=== PATIENT | male | born 1985 | race Caucasian/White ===

== ENCOUNTER 2018-03-19 14:59 | Outpatient (RCR) | payer MEDICAID, SELFPAY ==
[2018-03-19 15:31] VITALS: BP 109/72; PULSE 79; RESP 16; TEMP 36.4; BMI 23.5
== END 2018-04-12 23:59 ==
LOC: WC 14:59
PROVIDERS: Visit Provider Nurse Practitioner Family
DX: Z09 Encounter for follow-up examination after completed treatment for conditions other than malignant neoplasm (principal)

== ENCOUNTER 2018-06-11 09:00 | Outpatient (RCR) | payer MEDICAID, SELFPAY ==
[2018-05-21 09:22] VITALS: BP 117/61; PULSE 81; RESP 16; TEMP 37; BMI 24.6
--- NOTE | 2018-05-21 13:22 | HP.PCM_ITS ---
(1) Ulcer of right foot with fat layer exposed Status: Acute Current Visit: Yes Code(s): L97.512 - Non-pressure chronic ulcer of other part of right foot with fat layer exposed (2) Diabetes mellitus type 1 Status: Acute Current Visit: Yes Code(s): E10.9 - Type 1 diabetes mellitus without complications (3) Pain in right foot Status: Acute Current Visit: Yes Code(s): M79.671 - Pain in right foot (4) Delayed wound healing Status: Acute Current Visit: Yes Code(s): T14.8XXD - Other injury of unspecified body region, subsequent encounter History of Present Illness Date of Service: 05/21/18 Chief Complaint: right plantar foot ulcer History of Wound: This 33-year-old diabetic male presents to the wound healing center for ulcer sub-right fifth metatarsal head. The patient states this started months ago as a blister after walking for an extended period of time in shoes that were not appropriate. He says that after the blister popped, he had been managing the area on his own and he would continue to heal the site and then it would break back down again a few weeks later. He says he had it healed for a while, and then about 1 month ago the area broke back down and has not completely healed since. He says he wanted to have the area evaluated since he is diabetic. He was seen at an urgent care and states that they recently put him on an antibiotic but he is unsure which one this is. He has not kept the area offloaded. He has been dressing the area on his own with Neosporin and a bandage. He denies any purulence, surrounding or extending redness, or increase in warmth. He does relate the area is painful at times. Past Medical History Past Medical History: Chronic Problems (Last Reviewed 05/14/18 @ 10:46 by Verna Grajeda) Diabetes mellitus type 2, uncontrolled, with complications (Chronic) Allergies/Adverse Reactions: Allergies cefprozil [From Cefzil] Allergy (Unknown, Verified 05/21/18 09:37) Unknown industrial glue Allergy (Unknown, Uncoded 05/14/18 10:46) Unknown Home Medications: Ambulatory Orders Medication Instructions Recorded blood sugar diagnostic strips See Dose Instructions .ROUTE 02/11/18 .MEDSUPPLY #150 ea insulin aspart U- 100 100 unit/mL See Rx Instructions SC QPM #30 ml 02/11/18 subcutaneous pen insulin glargine (U-100) 100 30 unit SC QDAY #15 ml 02/11/18 unit/mL (3 mL) subcutaneous pen pen needle, diabetic 31 gauge x See Dose Instructions .ROUTE 02/11/1809/26 .MEDSUPPLY #150 ea flash glucose scanning reader See Dose Instructions .ROUTE 02/22/18 .MEDSUPPLY #1 ea flash glucose sensor kit See Dose Instructions .ROUTE 02/22/18 .MEDSUPPLY #3 ea Smoking Status: Current every day smoker Review of Systems Constitutional: Denies: Chills, Fever, Weight Change Respiratory: Denies: Cough, Shortness of Breath Gastrointestinal: Denies: Diarrhea, Nausea, Vomiting Musculoskeletal: Reports: Foot Pain Skin: Reports: - - Ulcer - Physical Exam Vital Signs Temp Pulse Resp BP 98.6 F 81 16 117/61 05/21/18 09:22 05/21/18 09:22 05/21/18 09:22 05/21/18 09:22 General: Alert, Oriented x3, Cooperative, No apparent distress Extremities: No cyanosis, Capillary Refill Less than 3 Seconds, No Calf Tenderness - Negative Sean and Sanders sign, Edema - Very minor lower extremity edema, Peripheral Pulses Normal - DP and PT pulses palpable bilateral Skin: Ulcer/ Wound - Ulcer sub-right fifth metatarsal head with fat layer exposed. Measurements noted. Ulcer base is noted to be a mixture of adherent slough, fibrin, biofilm, slight granular tissue, as well as some surrounding hyperkeratotic tissue. At this time, there is no probing to bone, no tracking, no undermining, no purulence, no extending or surrounding cellulitis, no incre ase in warmth appreciated to the site at this time. Wound Measurements and Assessment WC - Nurse 1 - General Ulcer Measurement Start: 05/21/18 09:21 Freq: Status: Active Protocol: Activity Type Activity Date Activity User E-Sign Co-Sign Detail Recorded Client Recorded Date Recorded By Document 05/21/18 09:22 [facility] [id number] 05/21/18 09:35 [facility] 05/21/18 09:22 Wound Center Nurse 1 [Ulcer Assessment] #1- RT PLANTAR FOOT -Combined with other wound No -Current Size (cm) - Length 0.2 -Current Size (cm) - Width 0.4 -Current Size (cm) - Depth 0.4 -Total Square Cm 0.08 -Date of Last Picture (Recall this 05/21/18 field) -Photo Taken Yes -Epithelialization None Present -Tunneling No -Undermining/Tunneling No -Circular Undermining No -Exudate Amt None Present (0 %) -Wound Margin Distinct, Outline Attached -Granulation Amt Small (1-33%) -Granulation Quality Red -Slough/Fibrin Yes -Necrosis Amt Small (1-33%) -Texture (Yu-wound Skin Appearance) Callus Scarring -Moisture (Yu-wound Skin Appearance Dry/Scaly ) -Color (Yu-wound Skin Appearance) Assessed -Temperature (Yu-wound Skin No Abnormality Appearance) (Pt Warm) -Tenderness on Palpation (Yu-wound Yes Skin Appearance) -Ulcer Cleansing Rinsed/ Irrigated with Saline -Foul Odor after Cleansing No -Anesthetic Used 4% Lidocaine Solution [Edema Assessment] -Lower Limb Edema Present No -Right Calf (cm) 37 -Right Ankle (cm) 23 -Left Calf (cm) 36 -Left Ankle (cm) 22.4 WC - Nurse 2 - General Ulcer CM Notes Start: 05/21/18 09:21 Freq: Status: Active Protocol: Activity Type Activity Date Activity User E-Sign Co-Sign Detail Recorded Client Recorded Date Recorded By Document 05/21/18 09:59 DV [id number] 05/21/18 10:06 DV 05/21/18 09:59 Wound Center Nurse 2 [Procedure/Treatment] #1- RT PLANTAR FOOT -Time 10:01 -Correct Patient Yes -Correct Side, Site, Position Yes -Correct Procedure Yes -Procedure Performed Yes -Type of Procedure Debridement -Clinical Debridement Subcutaneous -Post Debridement Size (cm) - Length 0.8 -Post Debridement Size (cm) - Width 1.0 -Post Debridement Size (cm) - Depth 0.3 -Total Square Cm 0.80 -Wound/Ulcer Outcome Not Healed -Ulcer Cleansing Rinsed/ Irrigated with Saline -Foul Odor after Cleansing No -Bioengineered Tissue No -Bleeding Controlled with Pressure -Treatment Response Procedure Tolerated Well [See Physician Procedure note for Specifics] Pain Scale: 0-10 Numeric [Pain] -Is Patient Pain Free? Yes Musculoskeletal: Tenderness - With manipulation of ulcer site Neurological: Sensory exam intact to light touch and pain Psych/Mental Status: Normal Affect, Appropriate Debridement Note Post-Debridement Measurements/Treatment WC - Nurse 2 - General Ulcer CM Notes Start: 05/21/18 09:21 Freq: Status: Active Protocol: Activity Type Activity Date Activity User E-Sign Co-Sign Detail Recorded Client Recorded Date Recorded By Document 05/21/18 09:59 DV [id number] 05/21/18 10:06 DV 05/21/18 09:59 Wound Center Nurse 2 #1- RT PLANTAR FOOT -Time 10:01 -Correct Patient Yes -Correct Side, Site, Position Yes -Correct Procedure Yes -Procedure Performed Yes -Type of Procedure Debridement -Clinical Debridement Subcutaneous -Post Debridement Size (cm) - Length 0.8 -Post Debridement Size (cm) - Width 1.0 -Post Debridement Size (cm) - Depth 0.3 -Total Square Cm 0.80 -Wound/Ulcer Outcome Not Healed -Ulcer Cleansing Rinsed/ Irrigated with Saline -Foul Odor after Cleansing No -Bioengineered Tissue No -Bleeding Controlled with Pressure -Treatment Response Procedure Tolerated Well Pain Scale: 0-10 Numeric Is Patient Pain Free? Yes Wound debrided: Right sub-fifth met head Laterality: Right Type of Debridement: Excisional debridement Anesthesia Used: 4% Lidocaine Solution Depth: in the subcutaneous layer Percentage of wound debrided: 100 Instrument Used: #15 blade, - - Tissue nipper Tissue Removed: Adherent slough, fibrin, biofilm, hyperkeratotic tissue Severity: Fat Layer Exposed Amount of bleeding with debridement: Mild Bleeding Controlled with: Pressure Patient tolerated procedure well Assessment/Plan Active Problems (Last Reviewed 05/14/18 @ 10:46 by Verna Grajeda) Ulcer of right foot with fat layer exposed (Acute) Diabetes mellitus type 1 (Acute) Pain in right foot (Acute) Delayed wound healing (Acute) Assessment: Ulcer right sub-fifth met head. DM. Pain right foot Plan: Initial patient examination and evaluation was performed. A subcutaneous debridement was performed as noted in the clinical panel. Once complete, slightly moistened Jessica was applied to the ulcer base, followed by a dry sterile dressing and a Tubigrip for compression. Patient is to have the dressing change in this manner and on a daily basis. Dressing supplies were ordered for the patient. The importance of offloading the ulcer site was discussed at great length. Patient was dispensed an offloading surgical shoe with a padded felt insert that offloaded the ulcer site. He was instructed to wear this at all times while weightbearing. Patient was instructed to continue taking the antibiotic that was prescribed to him at urgent care. Wound cultures were taken and sent for aerobic, anaerobic, and MRSA PCR evaluation, and antibiotics may need to be changed depending on culture results. I recommended nutritional supplementation with a high-protein diet in order to optimize wound healing potential for this patient. Smoking cessation was discussed with this patient today. Patient was educated on all signs and symptoms of local and systemic infection, and he was instructed to go to the emergency room immediately should he all in any other questions were answered to the patient's satisfaction. Patient will follow-up in clinic in 1 week to check on progress, or sooner if needed.
[2018-05-21 17:35] LABS: M R Staph aureus DNA By PCR Negative (Negative); Probe Check PASS; Specimen Processing Control PASS; Staph aureus DNA By PCR NEGATIVE (Negative)
[2018-05-28 08:50] VITALS: BP 127/73; PULSE 82; RESP 18; TEMP 36.6; BMI 24.6
--- NOTE | 2018-05-28 09:37 | PN.PCM_ITS ---
(1) Ulcer of right foot with fat layer exposed Status: Acute Current Visit: Yes Code(s): L97.512 - Non-pressure chronic ulcer of other part of right foot with fat layer exposed (2) Diabetes mellitus type 1 Status: Acute Current Visit: Yes Code(s): E10.9 - Type 1 diabetes mellitus without complications (3) Pain in right foot Status: Acute Current Visit: Yes Code(s): M79.671 - Pain in right foot (4) Delayed wound healing Status: Acute Current Visit: Yes Code(s): T14.8XXD - Other injury of unspecified body region, subsequent encounter Type of Wound Chief Complaint: right plantar foot ulcer History of Wound: This 33-year-old diabetic male presents to the wound healing center for ulcer sub-right fifth metatarsal head. The patient states this started months ago as a blister after walking for an extended period of time in shoes that were not appropriate. He says that after the blister popped, he had been managing the area on his own and he would continue to heal the site and then it would break back down again a few weeks later. He says he had it healed for a while, and then about 1 month ago the area broke back down and has not completely healed since. He says he wanted to have the area evaluated since he is diabetic. He was seen at an urgent care and states that they recently put him on an antibiotic but he is unsure which one this is. He has not kept the area offloaded. He has been dressing the area on his own with Neosporin and a bandage. He denies any purulence, surrounding or extending redness, or increase in warmth. He does relate the area is painful at times. Progress of Wound: Ulcer site is improving. Patient has been wearing offloading surgical shoe and applying daily dressing changes as instructed. Patient denies any feelings, of nausea, vomiting, fever, or chills today. - Physical Exam Vital Signs Temp Pulse Resp BP 97.8 F 82 18 127/73 H 05/28/18 08:50 05/28/18 08:50 05/28/18 08:50 05/28/18 08:50 General: Alert, Oriented x3, Cooperative, No apparent distress Extremities: Capillary Refill Less than 3 Seconds, No Calf Tenderness - Negative Sean and Sanders sign, Edema - Very minor lower extremity edema, Peripheral Pulses Normal - DP and PT pulses palpable bilateral Skin: Ulcer/ Wound - Ulcer sub-right fifth metatarsal head with fat layer exposed. Measurements noted. Ulcer site improving. Ulcer base is noted to be a mixture of adherent slough, fibrin, biofilm, slight granular tissue, as well as some surrounding hyperkeratotic tissue. There is no probing to bone, no tracking, no undermining, no purulence, no extending or surrounding cellulitis, no increase in warmth appreciated to the site at this time. Wound Measurements and Assessment WC - Nurse 1 - General Ulcer Measurement Start: 05/21/18 09:21 Freq: Status: Active Protocol: Activity Type Activity Date Activity User E-Sign Co-Sign Detail Recorded Client Recorded Date Recorded By Document 05/28/18 08:50 RB [id number] 05/28/18 08:53 RB 05/28/18 08:50 Wound Center Nurse 1 [Ulcer Assessment] #1- RT PLANTAR FOOT -Combined with other wound No -Current Size (cm) - Length 0.2 -Current Size (cm) - Width 0.3 -Current Size (cm) - Depth 0.2 -Total Square Cm 0.06 -Photo Taken No -Tunneling No -Undermining/Tunneling No -Circular Undermining No -Classification - Thickness Full Thickness without Exposed Support Structure -Exudate Amt Small (1-33%) -Exudate Type Serosanguineous -Wound Margin Distinct, Outline Attached -Granulation Amt Large (67-100%) -Granulation Quality [place] -Slough/Fibrin Yes -Necrosis Amt Small (1-33%) -Necrotic Tissue Type Adherent Slough -Structure Exposed N/A -Texture (Yu-wound Skin Appearance) Assessed Callus -Moisture (Yu-wound Skin Appearance Assessed ) -Color (Yu-wound Skin Appearance) Assessed -Temperature (Yu-wound Skin No Abnormality Appearance) (Pt Warm) -Tenderness on Palpation (Yu-wound No Skin Appearance) -Ulcer Cleansing Wound Cleanser -Foul Odor after Cleansing No -Anesthetic Used 5% Lidocaine Gel [Edema Assessment] -Lower Limb Edema Present Yes -Right Calf (cm) 36.3 -Right Ankle (cm) 23 WC - Nurse 2 - General Ulcer CM Notes Start: 05/21/18 09:21 Freq: Status: Active Protocol: Activity Type Activity Date Activity User E-Sign Co-Sign Detail Recorded Client Recorded Date Recorded By Document 05/28/18 09:14 DV [id number] 05/28/18 09:17 DV 05/28/18 09:14 Wound Center Nurse 2 [Procedure/Treatment] #1- RT PLANTAR FOOT -Time 09:14 -Correct Patient Yes -Correct Side, Site, Position Yes -Correct Procedure Yes -Procedure Performed Yes -Type of Procedure Debridement -Clinical Debridement Subcutaneous -Post Debridement Size (cm) - Length 0.4 -Post Debridement Size (cm) - Width 0.4 -Post Debridement Size (cm) - Depth 0.2 -Total Square Cm 0.16 -Wound/Ulcer Outcome Not Healed -Ulcer Cleansing Rinsed/ Irrigated with Saline -Foul Odor after Cleansing No -Bioengineered Tissue No -Bleeding Controlled with Pressure -Treatment Response Procedure Tolerated Well [See Physician Procedure note for Specifics] Pain Scale: 0-10 Numeric [Pain] -Is Patient Pain Free? Yes Musculoskeletal: Tenderness - With manipulation of ulcer site Neurological: Sensory exam intact to light touch and pain Psych/Mental Status: Normal Affect, Appropriate Debridement Note Post-Debridement Measurements/Treatment WC - Nurse 2 - General Ulcer CM Notes Start: 05/21/18 09:21 Freq: Status: Active Protocol: Activity Type Activity Date Activity User E-Sign Co-Sign Detail Recorded Client Recorded Date Recorded By Document 05/21/18 09:59 DV [id number] 05/21/18 10:06 DV Document 05/28/18 09:14 DV [id number] 05/28/18 09:17 DV 05/21/18 05/28/18 09:59 09:14 Wound Center Nurse 2 #1- RT PLANTAR FOOT -Time 10:01 09:14 -Correct Patient Yes Yes -Correct Side, Site, Position Yes Yes -Correct Procedure Yes Yes -Procedure Performed Yes Yes -Type of Procedure Debridement Debridement -Clinical Debridement Subcutaneous Subcutaneous -Post Debridement Size (cm) - Length 0.8 0.4 -Post Debridement Size (cm) - Width 1.0 0.4 -Post Debridement Size (cm) - Depth 0.3 0.2 -Total Square Cm 0.80 0.16 -Wound/Ulcer Outcome Not Healed Not Healed -Ulcer Cleansing Rinsed/ Rinsed/ Irrigated with Irrigated with Saline Saline -Foul Odor after Cleansing No No -Bioengineered Tissue No No -Bleeding Controlled with Pressure Pressure -Treatment Response Procedure Procedure Tolerated Well Tolerated Well Pain Scale: 0-10 Numeric Is Patient Pain Free? Yes Yes Wound debrided: Right sub-fifth metatarsal head Laterality: Right Type of Debridement: Excisional debridement Anesthesia Used: 4% Lidocaine Solution Depth: in the subcutaneous layer Percentage of wound debrided: 100 Instrument Used: #15 blade Tissue Removed: Adherent slough, fibrin, biofilm, hyperkeratotic tissue Severity: Fat Layer Exposed Amount of bleeding with debridement: Mild Bleeding Controlled with: Pressure Patient tolerated procedure well Assessment/Plan Active Problems (Last Reviewed 05/14/18 @ 10:46 by Verna Grajeda) Ulcer of right foot with fat layer exposed (Acute) Diabetes mellitus type 1 (Acute) Pain in right foot (Acute) Delayed wound healing (Acute) Assessment: Ulcer right sub-fifth met head. DM. Pain right foot Plan: Patient was examined and evaluated again today. A subcutaneous debridement was performed as noted in the clinical panel. Once complete, slightly moistened Jessica was applied to the ulcer base, followed by a dry sterile dressing and a Tubigrip for compression. Patient is to have the dressing changed in this manner and on a daily basis. The importance of offloading the ulcer site was discussed at great length again today and the patient says he has been doing well wearing his offloading surgical shoe. He was instructed to continue to wear this at all times while weightbearing. Wound cultures were taken and sent for aerobic, anaerobic, and MRSA PCR evaluation, and showed no growth. I recommended nutritional supplementation with a high- protein diet in order to optimize wound healing potential for this patient. Smoking cessation was discussed with this patient today. Patient was educated on all signs and symptoms of local and systemic infection, and he was instructed to go to the emergency room immediately should he all in any other questions were answered to the patient's satisfaction. Patient will follow-up in clinic in 2 weeks to check on progress, or sooner if needed.
[2018-06-11 09:10] VITALS: BP 120/69; PULSE 95; RESP 18; TEMP 36.6; BMI 24.6
--- NOTE | 2018-06-11 13:22 | PN.PCM_ITS ---
(1) Ulcer of right foot with fat layer exposed Status: Acute Current Visit: Yes Code(s): L97.512 - Non-pressure chronic ulcer of other part of right foot with fat layer exposed (2) Diabetes mellitus type 1 Status: Acute Current Visit: Yes Code(s): E10.9 - Type 1 diabetes mellitus without complications (3) Pain in right foot Status: Acute Current Visit: Yes Code(s): M79.671 - Pain in right foot (4) Delayed wound healing Status: Acute Current Visit: Yes Code(s): T14.8XXD - Other injury of unspecified body region, subsequent encounter Type of Wound Chief Complaint: right plantar foot ulcer History of Wound: This 33-year-old diabetic male presents to the wound healing center for ulcer sub-right fifth metatarsal head. The patient states this started months ago as a blister after walking for an extended period of time in shoes that were not appropriate. He says that after the blister popped, he had been managing the area on his own and he would continue to heal the site and then it would break back down again a few weeks later. He says he had it healed for a while, and then about 1 month ago the area broke back down and has not completely healed since. He says he wanted to have the area evaluated since he is diabetic. He was seen at an urgent care and states that they recently put him on an antibiotic but he is unsure which one this is. He has not kept the area offloaded. He has been dressing the area on his own with Neosporin and a bandage. He denies any purulence, surrounding or extending redness, or increase in warmth. He does relate the area is painful at times. Progress of Wound: Ulcer site is stable. Patient has been wearing offloading surgical shoe and applying daily dressing changes as instructed. Patient denies any feelings, of nausea, vomiting, fever, or chills today. - Physical Exam Vital Signs Temp Pulse Resp BP 98 F 95 18 120/69 06/11/18 09:10 06/11/18 09:10 06/11/18 09:10 06/11/18 09:10 General: Alert, Oriented x3, Cooperative, No apparent distress Extremities: Capillary Refill Less than 3 Seconds, No Calf Tenderness - Negative Sean and Sanders sign, Edema - Very minor lower extremity edema, Peripheral Pulses Normal - DP and PT pulses palpable bilateral Skin: Ulcer/ Wound - Ulcer sub-right fifth metatarsal head with fat layer exposed. Measurements noted. Ulcer base is noted to be a mixture of adherent slough, fibrin, biofilm, slight granular tissue, as well as some surrounding hyperkeratotic tissue. There is no probing to bone, no tracking, no undermining, no purulence, no extending or surrounding cellulitis, no increase in warmth to ulcer site. Wound Measurements and Assessment WC - Nurse 1 - General Ulcer Measurement Start: 05/21/18 09:21 Freq: Status: Active Protocol: Activity Type Activity Date Activity User E-Sign Co-Sign Detail Recorded Client Recorded Date Recorded By Document 06/11/18 09:10 RB [id number] 06/11/18 09:14 RB 06/11/18 09:10 Wound Center Nurse 1 [Ulcer Assessment] #1- RT PLANTAR FOOT -Combined with other wound No -Current Size (cm) - Length 0.3 -Current Size (cm) - Width 0.3 -Current Size (cm) - Depth 0.2 -Total Square Cm 0.09 -Photo Taken No -Tunneling No -Undermining/Tunneling No -Circular Undermining No -Exudate Amt Small (1-33%) -Exudate Type Serosanguineous -Wound Margin Distinct, Outline Attached -Granulation Amt Large (67-100%) -Granulation Quality [place] -Slough/Fibrin Yes -Necrosis Amt Small (1-33%) -Necrotic Tissue Type Adherent Slough -Structure Exposed N/A -Texture (Yu-wound Skin Appearance) Assessed Callus -Moisture (Yu-wound Skin Appearance Assessed ) -Color (Yu-wound Skin Appearance) Assessed -Temperature (Yu-wound Skin No Abnormality Appearance) (Pt Warm) -Tenderness on Palpation (Yu-wound No Skin Appearance) -Ulcer Cleansing Rinsed/ Irrigated with Saline -Foul Odor after Cleansing No -Anesthetic Used 5% Lidocaine Gel - Nurse 2 - General Ulcer CM Notes Start: 05/21/18 09:21 Freq: Status: Active Protocol: Activity Type Activity Date Activity User E-Sign Co-Sign Detail Recorded Client Recorded Date Recorded By Document 06/11/18 09:43 DV [id number] 06/11/18 09:51 DV 06/11/18 09:43 Wound Center Nurse 2 [Procedure/Treatment] -Time 09:44 -Correct Patient Yes -Correct Side, Site, Position Yes -Correct Procedure Yes -Procedure Performed Yes -Type of Procedure Debridement -Clinical Debridement Subcutaneous -Post Debridement Size (cm) - Length 1.0 -Post Debridement Size (cm) - Width 1.1 -Post Debridement Size (cm) - Depth 0.2 -Total Square Cm 1.10 -Wound/Ulcer Outcome Not Healed -Ulcer Cleansing Rinsed/ Irrigated with Saline -Foul Odor after Cleansing No -Bioengineered Tissue No -Bleeding Controlled with Pressure -Treatment Response Procedure Tolerated Well [See Physician Procedure note for Specifics] Pain Scale: 0-10 Numeric [Pain] -Is Patient Pain Free? Yes Musculoskeletal: Tenderness - With manipulation of ulcer site Neurological: Sensory exam intact to light touch and pain Psych/Mental Status: Normal Affect, Appropriate Debridement Note Post-Debridement Measurements/Treatment WC - Nurse 2 - General Ulcer CM Notes Start: 05/21/18 09:21 Freq: Status: Active Protocol: Activity Type Activity Date Activity User E-Sign Co-Sign Detail Recorded Client Recorded Date Recorded By Document 05/21/18 09:59 DV [id number] 05/21/18 10:06 DV Document 05/28/18 09:14 DV [id number] 05/28/18 09:17 DV Document 06/11/18 09:43 DV [id number] 06/11/18 09:51 DV 05/21/18 05/28/18 06/11/18 09:59 09:14 09:43 Wound Center Nurse 2 #1- RT PLANTAR FOOT -Time 10:01 09:14 09:44 -Correct Patient Yes Yes Yes -Correct Side, Site, Position Yes Yes Yes -Correct Procedure Yes Yes Yes -Procedure Performed Yes Yes Yes -Type of Procedure Debridement Debridement Debridement -Clinical Debridement Subcutaneous Subcutaneous Subcutaneous -Post Debridement Size (cm) - Length 0.8 0.4 1.0 -Post Debridement Size (cm) - Width 1.0 0.4 1.1 -Post Debridement Size (cm) - Depth 0.3 0.2 0.2 -Total Square Cm 0.80 0.16 1.10 -Wound/Ulcer Outcome Not Healed Not Healed Not Healed -Ulcer Cleansing Rinsed/ Rinsed/ Rinsed/ Irrigated with Irrigated with Irrigated with Saline Saline Saline -Foul Odor after Cleansing No No No -Bioengineered Tissue No No No -Bleeding Controlled with Pressure Pressure Pressure -Treatment Response Procedure Procedure Procedure Tolerated Well Tolerated Well Tolerated Well Pain Scale: 0-10 Numeric Is Patient Pain Free? Yes Yes Yes Wound debrided: Right fifth met head Laterality: Right Type of Debridement: Excisional debridement Anesthesia Used: 4% Lidocaine Solution Depth: in the subcutaneous layer Percentage of wound debrided: 100 Instrument Used: #15 blade Tissue Removed: Adherent slough, fibrin, biofilm, hyperkeratotic tissue Severity: Fat Layer Exposed Amount of bleeding with debridement: Mild Bleeding Controlled with: Pressure Patient tolerated procedure well Assessment/Plan Active Problems (Last Reviewed 05/14/18 @ 10:46 by Verna Grajeda) Ulcer of right foot with fat layer exposed (Acute) Diabetes mellitus type 1 (Acute) Pain in right foot (Acute) Delayed wound healing (Acute) Assessment: Ulcer right sub-fifth met head. DM. Pain right foot Plan: Patient was examined and evaluated again today. A subcutaneous debridement was performed as noted in the clinical panel. Once complete, slightly moistened Jessica was applied to the ulcer base, followed by a dry sterile dressing and a Tubigrip for compression. Patient is to have the dressing changed in this manner and on a daily basis. Will apply for skin substitute for next visit. The importance of offloading the ulcer site was discussed at great length again today and the patient says he has been doing well wearing his offloading surgical shoe. He was instructed to continue to wear this at all times while weightbearing. A new felt offloading insert was placed in the surgical shoe today. I recommended nutritional supplementation with a high-protein diet in order to optimize wound healing potential for this patient. Smoking cessation was discussed with this patient today. Patient was educated on all signs and symptoms of local and systemic infection, and he was instructed to go to the emergency room immediately should he all in any other questions were answered to the patient's satisfaction. Patient will follow-up in clinic in 1 week to check on progress, or sooner if needed.
== END 2018-06-12 23:59 ==
LOC: WC 09:00
PROVIDERS: Family Provider Internal Medicine; PCP Internal Medicine; Visit Provider Podiatrist
DX: E10.621 Type 1 diabetes mellitus with foot ulcer (principal); L97.512 Non-pressure chronic ulcer of other part of right foot with fat layer exposed; M79.671 Pain in right foot; E10.65 Type 1 diabetes mellitus with hyperglycemia; R60.0 Localized edema
CPT/HCPCS: 11042; 87070; 87205; 87640; 99203; G0463

== ENCOUNTER → 2018-06-23 09:46 | Outpatient (CLI) | payer MEDICAID, SELFPAY ==
[2018-06-11 09:10] VITALS: BMI 24.6
[2018-06-18 08:11] VITALS: BMI 24.6
[2018-06-23 11:27] LABS: Microalbumin,Random Urine 8.7 mg/L (NO RANGE EST.); Microalbumin:Creatinine Ratio 6.4 mg/g CRE (<30 mg/g CRE)
[2018-06-23 11:33] LABS: Hemoglobin A1c 8.9 % (4.2-6.3)
[2018-06-23 11:40] LABS: ALB/GLOB Ratio 1.1 RATIO (0.9-2.4); AST(SGOT) 16 U/L (15-37); Alanine Aminotransfer ALT/SGPT 25 U/L (16-61); Albumin, Serum 3.7 g/dL (3.2-5.0); Alkaline Phosphatase 98 U/L (45-117); Anion Gap 5 (5-15); BUN 19 mg/dL (7-18); BUN/Creat Ratio 23.5 RATIO (10-20); Calcium,Total 8.8 mg/dL (8.5-10.1); Chloride 108 mmol/L (98-107); Cholesterol 156 mg/dL (200); Creatinine, Serum 0.81 mg/dL (0.70-1.30); EST Glomerular Filtration Rate 117 mL/min (>60); Est Glom Filt Rate - Afr Amer 141 mL/min (>60); Globulin 3.5 g/dL (2.2-4.2); Glucose 239 mg/dL (74-106); High Density Lipoprotein 49 mg/dL; Potassium 4.5 mmol/L (3.5-5.1); Protein, Total 7.2 g/dL (6.4-8.2); Sodium Level 141 mmol/L (136-145); Triglycerides 78 mg/dL; Very Low Density Lipoprotein 16 mg/dL (5-40)
--- NOTE | 2018-06-30 20:44 | LEAS ---
Arterial Study - Arterial Study Arterial Study: This is a 33-year-old male with a history of diabetes mellitus and peripheral arterial disease. He presents with a chronic nonhealing wound to his foot. He is brought to the noninvasive vascular laboratory at this time for the purpose of bilateral noninvasive lower extremity arterial assessment. Doppler signal assessment was used to evaluate the pulses at ankle level bilaterally. The posterior tibial and dorsalis pedis pulses were triphasic bilaterally. Segmental limb pressures were obtained bilaterally. The right ankle pressure, as determined by posterior tibial pulse, was measured at 128 mmHg. The right ankle pressure, as determined by dorsalis pedis pulse, was measured at 134 mmHg. The right digital pressure was measured at 103 mmHg. The left ankle pressure, as determined by posterior tibial pulse, was measured at 119 mmHg. The left ankle pressure, as determined by dorsalis pedis pulse, was measured at 130 mmHg. The left digital pressure was measured at 109 mmHg. Pulse?volume recordings were obtained bilaterally and segmentally. Waveform amplitudes appeared to be satisfactory at all levels bilaterally, including low thigh, calf, ankle, and digital levels. Resting ankle?brachial indices were calculated bilaterally. The resting right ankle?brachial index was calculated to be 1.15. The resting left ankle?brachial index was calculated to be 1.11. Digital?brachial indices were calculated bilaterally. The right digital-brachial index was calculated to be 0.88. The left digital-brachial index was calculated to be 0.93. Impression: Based upon the findings of this resting noninvasive lower extremity arterial study, there is no evidence of significant atherosclerotic peripheral arterial occlusive disease in the lower extremities bilaterally. Triphasic waveforms were noted at ankle level bilaterally. Resting ankle?brachial indices were bilaterally normal. Digital?brachial indices were also normal bilaterally. In summary, this represents a normal resting noninvasive lower extremity arterial study bilaterally.
--- NOTE | 2018-06-30 20:49 | LEAS_ITS ---
Arterial Study - Arterial Study Arterial Study: This is a 33-year-old male with a history of diabetes mellitus and peripheral arterial disease. He presents with a chronic nonhealing wound to his foot. He is brought to the noninvasive vascular laboratory at this time for the purpose of bilateral noninvasive lower extremity arterial assessment. Doppler signal assessment was used to evaluate the pulses at ankle level bilaterally. The posterior tibial and dorsalis pedis pulses were triphasic bilaterally. Segmental limb pressures were obtained bilaterally. The right ankle pressure, as determined by posterior tibial pulse, was measured at 128 mmHg. The right ankle pressure, as determined by dorsalis pedis pulse, was measured at 134 mmHg. The right digital pressure was measured at 103 mmHg. The left ankle pressure, as determined by posterior tibial pulse, was measured at 119 mmHg. The left ankle pressure, as determined by dorsalis pedis pulse, was measured at 130 mmHg. The left digital pressure was measured at 109 mmHg. Pulse?volume recordings were obtained bilaterally and segmentally. Waveform a mplitudes appeared to be satisfactory at all levels bilaterally, including low thigh, calf, ankle, and digital levels. Resting ankle?brachial indices were calculated bilaterally. The resting right a nkle?brachial index was calculated to be 1.15. The resting left ankle?brachial index was calculated to be 1.11. Digital?brachial indices were calculated bilaterally. The right digital- brachial index was calculated to be 0.88. The left digital-brachial index was calculated to be 0.93. Impression: Based upon the findings of this resting noninvasive lower extremity arterial study, there is no evidence of significant atherosclerotic peripheral arterial occlusive disease in the lower extremities bilaterally. Triphasic waveforms were noted at ankle level bilaterally. Resting ankle?brachial indices were bilaterally normal. Digital?brachial indices were also normal bilaterally. In summary, this represents a normal resting noninvasive lower extremity arterial study bilaterally.
--- OUTSIDE RECORDS SUMMARY | 2018-08-09 09:56 | XMS RPT_ITS ---
:1985 Author Organization OHIP Support Name Relationship Address Phone BW3 Unavailable [address] + [place] , [place] [address] LEITY, COLTON Unavailable [address] + [place] [address] BW[address] Unavailable [address] + [place] , [place] [address] LEITY, COLTON Unavailable [address] + [place] [address] BW[address] Unavailable [address] + [place] [facility] [place] [address] LEITY, COLTON Unavailable [address] + [place] [address] BW[address] Unavailable [address] + [place] [address] LEITY, COLTON Unavailable [address] + [place] [address] BW[address] Unavailable [address] + [place] [address] LEITY, COLTON Unavailable [address] + [place] [address] BW[address] Unavailable [address] + [place] [address] LEITY, COLTON Unavailable [address] + [place] [address] BW[address] Unavailable [address] + [place] [facility] [place] [address] LEITY, COLTON Unavailable [address] + [place] [address] COLTON RAMAN Unavailable [address] + [place] [address] [facility] Unavailable [address] + [place] [address] Care Team Providers Name Role Phone Sheridan Martinez Attending Unavailable Sheridan Martinez Referring Unavailable Magdiel Hurst Primary Care Unavailable Mirna Oliveira AGRICULTURAL EXTENSION SPECIALIST-C Consulting Unavailable George Meredith Attending Unavailable Magdiel Hurst Primary Care Unavailable George Meredith Referring Unavailable Mirna Oliveira AGRICULTURAL EXTENSION SPECIALIST-C Attending Unavailable Mali Shay Referring Unavailable Mali Shay Primary Care Unavailable Amadou Ramachandran AGRICULTURAL EXTENSION SPECIALIST-C Attending Unavailable NOT, DEFINED Primary Care Unavailable Amadou Ramachandran AGRICULTURAL EXTENSION SPECIALIST-C Attending Unavailable NOT, BÁRBARA Primary Care Unavailable Mirna Oliveira AGRICULTURAL EXTENSION SPECIALIST-C Attending Unavailable Mali Shay Referring Unavailable George Meredith Attending Unavailable Magdiel Hurst Primary Care Unavailable George Meredith Attending Unavailable Magdiel Hurst Primary Care Unavailable PROBLEMS PROBLEMS DATE TYPE CONDITION / CODE ATTENDING STATUS SOURCE 05/14/2018 Unknown E11.9 - Type 2 [facility] [place] Active [place] diabetes mellitus AGRICULTURAL EXTENSION SPECIALIST-C Community without Hospital complications / Repository E11.9(ICD-10) 05/14/2018 Unknown L89.899 - Pressure [facility] [place] Active [place] ulcer of other AGRICULTURAL EXTENSION SPECIALIST-C Community site, unspecified Hospital stage / Repository L89.899(ICD-10) 02/11/2018 Unknown E10.65 - Type 1 [facility]na [place] Active [place] diabetes mellitus AGRICULTURAL EXTENSION SPECIALIST-C Community with hyperglycemia Hospital / E10.65(ICD-10) Repository PROCEDURES PROCEDURES No Procedure Records FoundRESULTS RESULTS FOOT MIN 3 VIEWS Observed: 07/30/2018 Status: F Source: [place] 11:44 AM COUNT INCLUDES THE [facility] REPOSITORY [facility] Imaging Services [address] [place] [address] Foot min 3 Views MR#: [id number] Acct: [id number] Name: SARAH RAMAN Rep #: [id number] : 1985 M 33 From: Neil Bolton MD PCP: Magdiel Hurst MD Status: REG RCR Study: Foot min 3 Views Date of Exam: 07/30/18 Exam# [id number] Ordering Dr: George Meredith DPM STUDY: X-RAY - RIGHT FOOT CLINICAL: Male, 33 years old. Diabetic patient with right- sided plantar ulcer for one week. TECHNIQUE: 3 view(s) of the foot. COMPARISON: None. FINDINGS: There are no significant degenerative features of the foot and there is no evidence of osteomyelitis. The reported plantar ulcer is not visible. There is no superficial or deep soft tissue gas and there is no radiodense foreign body. Preserved arch of the foot. RAD/Foot min 3 Views IMPRESSION: Normal x-ray examination of the foot. The reported ulcer is not visible. There are no features of osteomyelitis. Electronically Signed: Neil Bolton MD at 17:52 EST Tel , Service support , CC: YUMIKO Meredith; Magdiel Hurst MD [employer] Official: Signed MRSA WOUND DNA BY Collected: 07/30/2018 Status: F Source: [place] PCR 10:45 AM [facility] REPOSITORY Order Comment: Specimen Source? RIGHT FOOT TYPE CODE TESTS RESULT OUT OF RANGE REFERENCE UNITS LAB L8200.1100 Negative Normal MRSA Negative RESULT LAB L8200.1150 Negative Normal SA RESULT NEGATIVE Performed By: #### L8200.1075 #### [facility] [address] [place], [place], [address] Observed: 07/30/2018 Status: F Source: [place] CULTURE, DEEP WOUND 10:45 AM [facility] REPOSITORY Gram Stain Gram Stain 2+ Red Blood Cells Rare White Blood Cells No organisms seen Wound Culture No growth aerobically. Cult, Anaerobic No growth in 5 days. Performed By: #### M100.1500 #### [facility] [address] [place], [address] LOWER EXT ARTERIAL Observed: 06/30/2018 Status: F Source: [place] STUDY 8:50 PM [facility] REPOSITORY [facility] Cardiovascular Services [address] [place] [address] 06/30/182043 MR#: [id number] Acct: [id number] Name: SARAH RAMAN Rep #: [id number] : 1985 33 From: Lenard Pulliam MD Attending Dr: Sheridan Martinez DPM Status: REG CLI Ordering Dr: Date: 06/30/18 Location: [facility] Sex: M C Admitted: Arterial Study - Arterial Study Arterial Study: This is a 33-year-old male with a history of diabetes mellitus and peripheral arterial disease. He presents with a chronic nonhealing wound to his foot. He is brought to the noninvasive vascular laboratory at this time for the purpose of bilateral noninvasive lower extremity arterial assessment. Doppler signal assessment was used to evaluate the pulses at ankle level bilaterally. The posterior tibial and dorsalis pedis pulses were triphasic bilaterally. Segmental limb pressures were obtained bilaterally. The right ankle pressure, as determined by posterior tibial pulse, was measured at 128 mmHg. The right ankle pressure, as determined by dorsalis pedis pulse, was measured at 134 mmHg. The right digital pressure was measured at 103 mmHg. The left ankle pressure, as determined by posterior tibial pulse, was measured at 119 mmHg. The left ankle pressure, as determined by dorsalis pedis pulse, was measured at 130 mmHg. The left digital pressure was measured at 109 mmHg. Pulse volume recordings were obtained bilaterally and segmentally. Waveform amplitudes appeared to be satisfactory at all levels bilaterally, including low thigh, calf, ankle, and digital levels. Resting ankle brachial indices were calculated bilaterally. The resting right ankle brachial index was calculated to be 1.15. The resting left ankle brachial index was calculated to be 1.11. Digital brachial indices were calculated bilaterally. The right digital-brachial index was calculated to be 0.88. The left digital-brachial index was calculated to be 0.93. Impression: Based upon the findings of this resting noninvasive lower extremity arterial study, there is no evidence of significant atherosclerotic peripheral arterial occlusive disease in the lower extremities bilaterally. Triphasic waveforms were noted at ankle level bilaterally. Resting ankle brachial indices were bilaterally normal. Digital brachial indices were also normal bilaterally. In summary, this represents a normal resting noninvasive lower extremity arterial study bilaterally. 06/30/182049 <Electronically signed by Lenard Pulliam MD> Date Lenard Pulliam MD CC: Sheridan WHITFIELDM; Magdiel Hurst MD Date Dictated: 06/30/182043 Date Transcribed: 06/30/182043 [employer] Official: MIGUELITO Hernandez MICROALB:CREAT Collected: 06/23/2018 Status: F Source: [place] RATIO,RANDOM UR 10:34 AM [facility] REPOSITORY TYPE CODE TESTS RESULT OUT OF RANGE REFERENCE UNITS LAB L501.1200 NO RANGE EST. mg/dL Normal UR CREAT 135.00 LAB L502.0500 NO RANGE EST. mg/L Normal 8.7 MICROALBUMIN ,UR LAB L502.0600 <30 mg/g CRE mg/g CRE Normal 6.4 MALB:CREAT Performed By: #### L502.0250 #### [facility] [address] [facility] [place], [address] HEMOGLOBIN A1C Collected: 06/23/2018 Status: F Source: [place] 10:34 AM [facility] REPOSITORY TYPE CODE TESTS RESULT OUT OF RANGE REFERENCE UNITS LAB L501.9985 4.2-6.3 % High HGB A1C 8.9 Performed By: #### L501.9985 #### [facility] [address] [place], [address] COMPREHENSIVE METABOLIC Collected: 06/23/2018 Status: F Source: [place] PROFIL 10:34 AM [facility] REPOSITORY TYPE CODE TESTS RESULT OUT OF RANGE REFERENCE UNITS LAB L501.0100 74-106 mg/dL High GLU 239 Result Comment: Glucose result greater than or equal to 200 mg/dL suggests DIABETES MELLITUS per A.D.A. criteria. Please note revised GLUCOSE reference range effective 2017. LAB L501.1000 7-18 mg/dL High BUN 19 LAB L501.1100 0.70-1.30 mg/dL Normal CREAT,SERUM 0.81 Result Comment: The validity of the calculated GFR AND GFRAA in patients over 70 years has not been determined. Clinical correlation is essential. LAB L501.1110 >60 mL/min Normal EST GFR 117 Result Comment: Non- GFR Calc LAB L501.1115 >60 mL/min Normal EST GFR - AA 141 Result Comment: GFR Calc LAB L501.1300 10-20 RATIO High BUN/CRE 23.5 LAB L501.1500 6.4-8.2 g/dL T Normal PROT 7.2 LAB L501.1800 3.2-5.0 g/dL Normal ALB 3.7 LAB L501.1950 2.2-4.2 g/dL Normal GLOB 3.5 LAB L501.2000 0.9-2.4 RATIO Normal A/G 1.1 LAB L501.2200 8.5-10.1 mg/dL CA Normal 8.8 LAB L501.4100 15-37 U/L Normal AST 16 LAB L501.4305 45-117 U/L Normal ALK P 98 LAB L501.4405 16-61 U/L Normal ALT 25 LAB L501.4600 0.20-1.00 mg/dL T Normal BILI 0.90 LAB L501.5300 136-145 mmol/L NA Normal 141 LAB L501.5600 3.5-5.1 mmol/L K Normal 4.5 LAB L501.5900 98-107 mmol/L High CL 108 LAB L501.6100 21.0-32.0 mmol/L Normal CO2 28.0 LAB L501.6200 5-15 Normal GAP 5 Performed By: #### L500.4050, L500.4100 #### [facility] [address] [place], [address] LIPID PROFILE Collected: 06/23/2018 Status: F Source: [place] 10:34 AM [facility] REPOSITORY TYPE CODE TESTS RESULT OUT OF RANGE REFERENCE UNITS LAB L501.4900 200 mg/dL Normal CHOL 156 Result Comment: <200 mg/dL Desirable 200-240 mg/dL Borderline >240 mg/dL High Risk LAB L501.5000 mg/dL Normal TRIG 78 Result Comment: The drugs N-Acetylcysteine and Metamizole may falsely depress this assay. Serum Triglycerides Reference Interval Normal <150 mg/dL Borderline high 150 - 199 mg/dL High 200 - 499 mg/dL Very High > or = 500 mg/dL LAB L501.6400 mg/dL Normal HDL 49 Result Comment: The drugs N-Acetylcysteine and Metamizole may falsely depress this assay. Reference Range HDL <40 mg/dL Low HDL Cholesterol HDL >or= 60 mg/dL High HDL Cholesterol LAB L501.6500 0-130 mg/dL Normal LDL 91 LAB L501.6600 5-40 mg/dL Normal VLDL 16 Performed By: #### L500.4050, L500.4100 #### [facility] [address] [facility] [place], [address] WOUND CTR HISTORY Observed: 05/21/2018 Status: F Source: [place] AND PHYSICAL 1:31 PM [facility] REPOSITORY [facility] [address] [place] [address] W[address] C[address] History AND Physical 05/21/18 1315 MR#: [id number] Acct: [id number] Name: SARAH RAMAN Rep #: [id number] : 1985 33 From: George Meredith DPM PCP: Magdiel Hurst MD Status: REG RCR Y Location: WC (1) Ulcer of right foot with fat layer exposed Status: Acute Current Visit: Yes Code(s): L97.512 - Non- pressure chronic ulcer of other part of right foot with fat layer exposed (2) Diabetes mellitus type 1 Status: Acute Current Visit: Yes Code(s): E10.9 - Type 1 diabetes mellitus without complications (3) Pain in right foot Status: Acute Current Visit: Yes Code(s): M79.671 - Pain in right foot (4) Delayed wound healing Status: Acute Current Visit: Yes Code(s): T14.8XXD - Other injury of unspecified body region, subsequent encounter History of Present Illness Date of Service: 05/21/18 Chief Complaint: right plantar foot ulcer History of Wound: This 33-year-old diabetic male presents to the wound healing center for ulcer sub-right fifth metatarsal head. The patient states this started months ago as a blister after walking for an extended period of time in shoes that were not appropriate. He says that after the blister popped, he had been managing the area on his own and he would continue to heal the site and then it would break back down again a few weeks later. He says he had it healed for a while, and then about 1 month ago the area broke back down and has not completely healed since. He says he wanted to have the area evaluated since he is diabetic. He was seen at an urgent care and states that they recently put him on an antibiotic but he is unsure which one this is. He has not kept the area offloaded. He has been dressing the area on his own with Neosporin and a bandage. He denies any purulence, surrounding or extending redness, or increase in warmth. He does relate the area is painful at times. Past Medical History Past Medical History: Chronic Problems (Last Reviewed 05/14/18 @ 10:46 by Verna Grajeda) Diabetes mellitus type 2, uncontrolled, with complications (Chronic) Allergies/Adverse Reactions: Allergies cefprozil [From Cefzil] Allergy (Unknown, Verified 05/21/18 09:37) Unknown industrial glue Allergy (Unknown, Uncoded 05/14/18 10:46) Unknown Home Medications: Ambulatory Orders Medication Instructions Recorded Smoking Status: Current every day smoker Review of Systems Constitutional: Denies: Chills, Fever, Weight Change Respiratory: Denies: Cough, Shortness of Breath Gastrointestinal: Denies: Diarrhea, Nausea, Vomiting Musculoskeletal: Reports: Foot Pain Skin: Reports: - - Ulcer - Physical Exam Vital Signs Temp Pulse Resp BP 98.6 F 81 16 117/61 05/21/18 09:22 05/21/18 09:22 05/21/18 09:22 05/21/18 09:22 General: Alert, Oriented x3, Cooperative, No apparent distress Extremities: No cyanosis, Capillary Refill Less than 3 Seconds, No Calf Tenderness - Negative Sean and Sanders sign, Edema - Very minor lower extremity edema, Peripheral Pulses Normal - DP and PT pulses palpable bilateral Skin: Ulcer/ Wound - Ulcer sub-right fifth metatarsal head with fat layer exposed. Measurements noted. Ulcer base is noted to be a mixture of adherent slough, fibrin, biofilm, slight granular tissue, as well as some surrounding hyperkeratotic tissue. At this time, there is no probing to bone, no tracking, no undermining, no purulence, no extending or surrounding cellulitis, no increase in warmth appreciated to the site at this time. Wound Measurements and Assessment WC - Nurse 1 - General Ulcer Measurement Start: 05/21/18 09:21 Freq: Status: Active Protocol: Activity Type Activity Date Activity User E-Sign Co-Sign Detail Recorded Client Recorded Date Recorded By Document 05/21/18 09:22 BM [id number] 05/21/18 09:35 [facility] Wound Center Nurse 1 WC - Nurse 2 - General Ulcer CM Notes Start: 05/21/18 09:21 Freq: Status: Active Protocol: Activity Type Activity Date Activity User E-Sign Co-Sign Detail Recorded Client Recorded Date Recorded By Document 05/21/18 09:59 DV [id number] 05/21/18 10:06 [facility] W[facility] Nurse 2 Musculoskeletal: Tenderness - With manipulation of ulcer site Neurological: Sensory exam intact to light touch and pain Psych/Mental Status: Normal Affect, Appropriate Debridement Note Post-Debridement Measurements/Treatment WC - Nurse 2 - General Ulcer CM Notes Start: 05/21/18 09:21 Freq: Status: Active Protocol: Activity Type Activity Date Activity User E-Sign Co-Sign Detail Recorded Client Recorded Date Recorded By Document 05/21/18 09:59 DV [id number] 05/21/18 10:06 [facility] Wound [facility] Nurse 2 #1- RT PLANTAR FOOT -Time 10:01 -Correct Patient Yes -Correct Side, Site, Position Yes Wound debrided: Right sub-fifth met head Laterality: Right Type of Debridement: Excisional debridement Anesthesia Used: 4% Lidocaine Solution Depth: in the subcutaneous layer Percentage of wound debrided: 100 Instrument Used: #15 blade, - - Tissue nipper Tissue Removed: Adherent slough, fibrin, biofilm, hyperkeratotic tissue Severity: Fat Layer Exposed Amount of bleeding with debridement: Mild Bleeding Controlled with: Pressure Patient tolerated procedure well Assessment/Plan Active Problems (Last Reviewed 05/14/18 @ 10:46 by Verna Grajeda) Ulcer of right foot with fat layer exposed (Acute) Diabetes mellitus type 1 (Acute) Pain in right foot (Acute) Delayed wound healing (Acute) Assessment: Ulcer right sub-fifth met head. DM. Pain right foot Plan: Initial patient examination and evaluation was performed. A subcutaneous debridement was performed as noted in the clinical panel. Once complete, slightly moistened Jessica was applied to the ulcer base, followed by a dry sterile dressing and a Tubigrip for compression. Patient is to have the dressing change in this manner and on a daily basis. Dressing supplies were ordered for the patient. The importance of offloading the ulcer site was discussed at great length. Patient was dispensed an offloading surgical shoe with a padded felt insert that offloaded the ulcer site. He was instructed to wear this at all times while weightbearing. Patient was instructed to continue taking the antibiotic that was prescribed to him at urgent care. Wound cultures were taken and sent for aerobic, anaerobic, and MRSA PCR evaluation, and antibiotics may need to be changed depending on culture results. I recommended nutritional supplementation with a high-protein diet in order to optimize wound healing potential for this patient. Smoking cessation was discussed with this patient today. Patient was educated on all signs and symptoms of local and systemic infection, and he was instructed to go to the emergency room immediately should he all in any other questions were answered to the patient's satisfaction. Patient will follow-up in clinic in 1 week to check on progress, or sooner if needed. 05/21/18 1330 <Electronically signed by George Meredith DPM> Date George Meredith DPM CC: Signed MRSA WOUND DNA BY Collected: 05/21/2018 Status: F Source: [place] PCR 10:00 AM [facility] REPOSITORY Order Comment: Specimen Source? PLANTAR TYPE CODE TESTS RESULT OUT OF RANGE REFERENCE UNITS LAB L8200.1100 Negative Normal MRSA Negative RESULT LAB L8200.1150 Negative Normal SA RESULT NEGATIVE Performed By: #### L8200.1075 #### [facility] [address] [facility] [place], [place], [address] Observed: 05/21/2018 Status: F Source: [place] CULTURE, WOUND 10:00 AM [facility] REPOSITORY Gram Stain Gram Stain No organisms seen Wound Culture No growth aerobically. Performed By: #### M100.1400 #### [facility] [address] [facility] [place], [address] WOUND Observed: 05/19/2018 Status: F Source: [place] CULTURE/STAIN 6:25 PM [facility] REPOSITORY Sp. Request/Comment: - Swab Smear Result - No organisms seen No Polymorphonuclear Leukocytes Culture Result - Few Staphylococcus aureus --> ABNORMAL ALERT ORGANISM: Staphylococcus aureus METHOD: Minimum inhibitory concentration(Vitek) Antibiotic Interp TERRI Status Erythromycin SUSCEPTIBLE <=0.25 F Clindamycin SUSCEPTIBLE 0.25 F Tetracycline SUSCEPTIBLE <=1 F Vancomycin SUSCEPTIBLE 1 F Oxacillin SUSCEPTIBLE 0.5 F Oxacillin susceptible staphylococci are susceptible to other penicillinase stable penicillins, beta lactam/beta lactamase inhibitor combinations, anti staphyloccal cephems, and carbapenems. Trimeth sulfameth SUSCEPTIBLE <=10 F Gentamicin SUSCEPTIBLE <=0.5 F Rifampin SUSCEPTIBLE <=0.5 F Rifampin should not be used alone for antimicrobial therapy. Doxycycline SUSCEPTIBLE <=0.5 F Performed By: #### WCUL #### [facility] [address] [place], [place] [address] PROGRESS Observed: 05/18/2018 Status: COMPLETED Source: [place] 5:45 PM [facility] REPOSITORY HNO ID: [id number] Author: Andres Cheatham Service: (none) Author Type: Physician Type: Progress Notes Filed: 05/18/2018 6:12 PM Note Text: Patient presents with: right foot pain: ulcer x 1 month-last 2 weeks seems to be getting much worse HPI: Skin Lesion: Location: right foot inferior 5th Metatarsal head Duration: 1 month, worsening 2 weeks Pruritis/Pain: Painful, unable to walk on the sore Change: Drainage/blister/pustule/ulceration: Draining pus today. Denies fever or chills. Treatment: trimmed callus the last 1-2 months, hurt since trimming 3 days ago. PAST MEDICAL HISTORY Diagnosis Date - Type I (juvenile type) diabetes mellitus without mention of complication, not stated as uncontrolled MEDICATIONS: insulin glargine (LANTUS) 100 unit/mL (3 mL) inpn Administer 45 units at bedtime Insulin Od[place], Disposable, (BD ULTRAFINE III MINI PEN) 31 gauge x 3/16 ndle Use one needle for each dose. 6/day insulin aspart (NOVOLOG FLEXPEN) 100 unit/mL inpn Inject 32 units with meals up to 100 units daily. Plus sliding scale correction up to 32 units/day blood sugar diagnostic (FREESTYLE LITE STRIPS) test strip Test blood sugar(s) 6-7 x daily. Dx: e10.65. Insulin: Yes lancets (FREESTYLE LANCETS) 28 gauge misc Test blood sugar(s) 6-7x daily. Dx: e10.65. Insulin: Yes COMPOUNDED PRESCRIPTION Insulin syringes 1/2 cc 31 guage ALLERGIES: ALLERGIES Allergen Reactions - Cefzil [Cefprozil] - Glue [Other] VITALS: BP 128/80 Pulse 88 Temp 36.6 ?C (97.9 ?F) (Tympanic) Resp 16 Wt 88.1 kg (194 lb 3.2 oz) PHYSICAL EXAM: GEN: pleasant, no acute distress, alert HEENT: PERRL, EOMI, MMM HEART: regular rate, regular rhythm, no murmurs LUNGS: clear to auscultation, no wheezes or crackles, no increased WOB EXT: no clubbing, no cyanosis, no edema FOOT: Right. 2.5cm thickened callus below the 5th metatarsal head. 5mm central ulcer seeping purulent bloody drainage. Tender to palpation. No redness or edema of the foot or leg. Component Latest Ref Rng AND Units 05/29/2015 01/08/2016 Hemoglobin A1C 4.3 - 5.6 % 12.3 (H) 11.7 (H) ASSESSMENT/PLAN: 1. Type 1 diabetes mellitus with right diabetic foot ulcer (HCC) - ICD9: 250.81, 707.15, ICD10: E10.621, L97.519 (primary diagnosis) 2. Uncontrolled type 1 diabetes mellitus with diabetic neuropathy, with long-term current use of insulin (HCC) - ICD9: 250.63, 357.2, ICD10: E10.40, E10.65 - CLINDAMYCIN HCL 300 MG CAPSULE - WOUND CULTURE AND GRAM STAIN Stressed the importance of f/u with podiatry or wound care. There is potential for limb loss with diabetic infection. He has an appointment with a new jewelry sales in a couple weeks. He was seeing wound care for his callus before it ruptured. He agrees to get f/u with one of them this week. Andres Cheatham MD CNOV Observed: 05/18/2018 Status: COMPLETED Source: [place] 5:30 PM [facility] REPOSITORY Office Visit (WSTR) SARAH RAMAN ([id number]) 1985 M Date Time Provider Department 05/18/18 5:30 PM ANDRES CHEATHAM [facility] During your visit today, we recorded the following information about you: Temperature Pulse Respiration Blood pressure 97.9 degrees 88/minute 16/minute 128/80 Weight 88.1 kg Andres Cheatham MD 05/18/2018 6:12 PM Signed Patient presents with: right foot pain: ulcer x 1 month-last 2 weeks seems to be getting much worse HPI: Skin Lesion: Location: right foot inferior 5th Metatarsal head Duration: 1 month, worsening 2 weeks Pruritis/Pain: Painful, unable to walk on the sore Change: Drainage/blister/pustule/ulceration: Draining pus today. Denies fever or chills. Treatment: trimmed callus the last 1-2 months, hurt since trimming 3 days ago. PAST MEDICAL HISTORY Diagnosis Date - Type I (juvenile type) diabetes mellitus without mention of complication, not stated as uncontrolled MEDICATIONS: insulin glargine (LANTUS) 100 unit/mL (3 mL) inpn Administer 45 units at bedtime Insulin Odessa, Disposable, (BD ULTRAFINE III MINI PEN) 31 gauge x 3/16 ndle Use one needle for each dose. 6/day insulin aspart (NOVOLOG FLEXPEN) 100 unit/mL inpn Inject 32 units with meals up to 100 units daily. Plus sliding scale correction up to 32 units/day blood sugar diagnostic (FREESTYLE LITE STRIPS) test strip Test blood sugar(s) 6-7 x daily. Dx: e10.65. Insulin: Yes lancets (FREESTYLE LANCETS) 28 gauge misc Test blood sugar(s) 6-7x daily. Dx: e10.65. Insulin: Yes COMPOUNDED PRESCRIPTION Insulin syringes 1/2 cc 31 guage ALLERGIES: ALLERGIES Allergen Reactions - Cefzil [Cefprozil] - Glue [Other] VITALS: BP 128/80 Pulse 88 Temp 36.6 ?C (97.9 ?F) (Tympanic) Resp 16 Wt 88.1 kg (194 lb 3.2 oz) PHYSICAL EXAM: GEN: pleasant, no acute distress, alert HEENT: PERRL, EOMI, MMM HEART: regular rate, regular rhythm, no murmurs LUNGS: clear to auscultation, no wheezes or crackles, no increased WOB EXT: no clubbing, no cyanosis, no edema FOOT: Right. 2.5cm thickened callus below the 5th metatarsal head. 5mm central ulcer seeping purulent bloody drainage. Tender to palpation. No redness or edema of the foot or leg. Component Latest Ref Rng AND Units 05/29/2015 01/08/2016 Hemoglobin A1C 4.3 - 5.6 % 12.3 (H) 11.7 (H) ASSESSMENT/PLAN: 1. Type 1 diabetes mellitus with right diabetic foot ulcer (HCC) - ICD9: 250.81, 707.15, ICD10: E10.621, L97.519 (primary diagnosis) 2. Uncontrolled type 1 diabetes mellitus with diabetic neuropathy, with long-term current use of insulin (HCC) - ICD9: 250.63, 357.2, ICD10: E10.40, E10.65 - CLINDAMYCIN HCL 300 MG CAPSULE - WOUND CULTURE AND GRAM STAIN Stressed the importance of f/u with podiatry or wound care. There is potential for limb loss with diabetic infection. He has an appointment with a new jewelry sales in a couple weeks. He was seeing wound care for his callus before it ruptured. He agrees to get f/u with one of them this week. Andres Cheatham MD Referring Provider: SELF [[id number]] Allergies As of Date: 05/18/2018 Noted Allergy Reaction CEFZIL (CEFPROZIL) 05/03/2005 4 - Hives glue [Other] 11/25/2006 Date Reviewed: 05/18/2018 Reviewed by: Claudia Flores LPN - Fully Assessed Reason for Visit: right foot pain [Other] Cmt: ulcer x 1 month-last 2 weeks seems to be getting much worse Primary Visit Diagnosis:Type 1 diabetes mellitus with right diabetic foot ulcer (HCC) [E10.621, L97.519] Other Visit Diagnosis:Uncontrolled type 1 diabetes mellitus with diabetic neuropathy, with long-term current use of insulin (HCC) [E10.40, E10.65] Order(s):clindamycin (CLEOCIN) 300 mg capsuleTake 1 capsule by mouth four times daily.Disp: 40 capsuleRfl: 0 WOUND CULTURE AND GRAM STAIN [SQWCUL] Order #: [id number] Prescriptions as of 05/18/2018 Sig: INSULIN GLARGINE (U-100) 100 * Administer 45 units at bedti* PEN NEEDLE, DIABETIC 31 GAUGE* Use one needle for each dose.* INSULIN ASPART U-100 100 UNI* Inject 32 units with meals up* BLOOD SUGAR DIAGNOSTIC STRIPS Test blood sugar(s) 6- 7 x rajiv* LANCETS 28 GAUGE Test blood sugar(s) 6- 7x ovi* * COMPOUNDED PRESCRIPTION Insulin syringes 1/2 cc 31 gu* CLINDAMYCIN HCL 300 MG CAPSULE Take 1 capsule by mouth four * Problem List As Of Date 05/18/2018 Noted Resolved PURE HYPERCHOLESTEROLEM [E78.00] INVALID FOR* Uncontrolled type 1 diabetes mellitus (HCC) [E1*INVALID FOR*03/05/2016 Tobacco use disorder [F17.200] INVALID FOR* Weight loss, unintentional [R63.4] INVALID FOR*06/16/2016 Uncontrolled type 1 diabetes mellitus with diab*INVALID FOR* Prescriptions ordered this encounter Disp Refills Start End CLINDAMYCIN HCL 300 MG CAPSULE 40 c* 0 05/18/2018 Route: ORAL Sig: Take 1 capsule by mouth four times daily. Medications Discontinued During This Encounter oxaprozin (DAYPRO) 600 mg tablet 30 t* 0 04/21/2016 05/18/2018 Route: ORAL Sig: Take 1 tablet by mouth twice daily. Patient not taking: Reported on 12/12/2017 Disc: Course of therapy completed enalapril (VASOTEC) 20 mg tablet 06/19/2015 05/18/2018 Class: Med Update Route: ORAL Sig: Take 0.5 tablets by mouth once daily. Patient not taking: Reported on 12/12/2017 Disc: Course of therapy completed Encounter Status:Closed by ANDRES CHEATHAM MD on 05/18/18 ENDOCRINOLOGY VISIT Observed: 05/16/2018 Status: F Source: [facility]IG[facility]O REPORT 8:26 AM [facility] [place] REPOSITORY [facility] [address] [place] [address]. [address] [place] [address] OFFICE VISIT Date of Service: 05/14/18 MR#: [id number] Acct: [id number] Name: SARAH RAMAN Rep #: [id number] : 1985 Provider: Mirna Oliveira NP Age/Sex: 33/M Location: [facility] [place] Status: Signed HPI History of present illness Sarah Raman is a 33 yr old male who presents for follow up of diabetes type 1 Reports he is taking basaglar 30 units daily and meal insulin 32 units per meal. He does bring his BG readings with him and he checks 4 times daily and finds BG do okay. Has callus on foot which he reports has ulcer which tunnels underneath. Does not have a jewelry sales. Feet have intermittent numbness now. Pt denies difficulty with injections or self monitoring of BG. Denies any signs of infection or irritation at site of injections. Reports taking insulin as directed At time of visit: No recent labs completed. -Pt denies symptoms of hypertensive emergency (CP,SOB,SHELL, or blurred vision) and hypotension(dizziness or lightheadedness) -Pt denies symptoms of hypoglycemia ( sweaty, confusion, anxiety, tremor, hunger, palpitations) and hyperglycemia ( polydipsia, polyuria) -Pt denies potential medication adverse effect. Hypoglycemia Aware of hypoglycemia: When awake Able to self treat low BG: Yes Frequent low Blood sugar: No Has supply of glucagon: Yes Diet 3 meals Carb counts Occ snacks Exercise Is active No routine exercise program Works 60+ hours weekly [employer] BG average over last 30 days 180 range. Exam Const General: well groomed Nutritional Appearance: thin Orientation: oriented x3 HENMT Head: normal to inspection, atraumatic Ears: hearing grossly normal bilaterally Face and sinus: normal facial exam Mouth: oral mucosae normal, moist mucous membranes Teeth and gingiva: dentition normal Eyes Eyelids: eyelids normal Conjunctivae: conjunctivae normal Sclera: sclerae normal Pupils: PERRL Neck Neck mass: No Resp Effort AND Inspection: normal respiratory effort, able to speak in complete sentences, symmetric chest movement Auscultation: Bilateral: Clear to Auscultation Cardio Rate: regular rate Rhythm: regular rhythm Heart Sounds: S1 normal, S2 normal, no murmurs GI Inspection: normal to inspection Auscultation: normal bowel sounds Palpation: soft, no guarding Skin General: no rashes or lesions noted Wounds: wounds noted (callus foot right) Diabetic Foot Pulses: L dorsalis pedis pulse: normal, R dorsalis pedis pulse: normal Monofilament test: Left foot: abnormal, Right foot: abnormal Has small ulcer bottom of foot where he removed calus and it did not heal. No drainage. Neuro Cranial Nerves: CN's II-XI intact bilaterally Extrem General: normal capillary refill, full ROM, normal to inspection Psych Appearance: grossly normal Mental Status: mental status grossly normal Mood: congruent mood Affect: normal affect Speech and Movement: speech and movement normal Attitude: cooperative Thought Process: normal Thought Content: normal Judgment: judgment good Type: type 2, insulin-requiring Glucose control symptoms: Reports high post-meal glucose Weight and fatigue symptoms: Denies snoring Cardiopulmonary symptoms: Denies chest pain at rest, dyspnea on exertion, lightheadedness or myalgias GI symptoms: Denies constipation, diarrhea, nausea/dyspepsia or vomiting Skin and extremity symptoms: Reports tingling/numbness/burning; denies erectile dysfunction Other symptoms: Denies blurry vision or change in vision Pertinent visit history: Denies recent visit to ER, recent hospital admission or recent DKA Intake Vital Signs05/14/18 Height 6 ft 2 in 05/14/18 Weight: 192 lb 4 oz 05/14/18 Body Mass Index (BMI) 24.7 05/14/18 Blood Pressure 118/82 H 05/14/18 Blood Pressure Position Sitting Intake Visit Reasons: 3 M FU Form Builder Required: No Accompanied by: Self Allergies cefprozil [From Cefzil] Allergy (Unknown, Verified 05/14/18 10:46) Unknown industrial glue Allergy (Unknown, Uncoded 05/14/18 10:46) Unknown Medications blood sugar diagnostic strips See Dose Instructions .ROUTE .MEDSUPPLY #150 ea 02/11/18 [Rx Confirmed 05/14/18] insulin aspart U- 100 100 unit/mL subcutaneous pen See Rx Instructions SC QPM #30 ml 02/11/18 [Rx Confirmed 05/14/18] insulin glargine (U-100) 100 unit/mL (3 mL) subcutaneous pen 30 unit SC QDAY #15 ml 02/11/18 [Rx Confirmed 05/14/18] pen needle, diabetic 31 gauge x 316 See Dose Instructions .ROUTE .MEDSUPPLY #150 ea 02/11/18 [Rx Confirmed 05/14/18] flash glucose scanning reader See Dose Instructions .ROUTE .MEDSUPPLY #1 ea 02/22/18 [Rx Confirmed 05/14/18] flash glucose sensor kit See Dose Instructions .ROUTE .MEDSUPPLY #3 ea 02/22/18 [Rx Confirmed 05/14/18] Nurse's Note: blood sugars : low : 47 high : 423 [facility] Medical History Type 1 diabetes mellitus (Acute) Family History Father Heart disease Mother Diabetes Social History Smoking Status: Current every day smoker alcohol intake: never substance use type: does not use ROS Const Constitutional: Positive for chills and fever(s); no anorexia, body ache, fatigue, frequent falls, decreased energy, malaise, night sweats, weakness, weight change, sleep problems, abnormal sleep pattern, change in appetite, other, headache(s), snoring or excessive sweating Eyes Eyes: No blurry vision, change in vision, double vision, discharge, dry eyes, bulging eyes, floaters, visual disturbances, eye pain, light sensitivity, spots in vision, tunnel vision or other ENT ENT: Positive for nasal congestion and nasal discharge; no abnormal hearing, ear pain, ear discharge, ear pressure, hearing loss, tinnitus, dizziness/vertigo, balance problems, nosebleed/epistaxis, nasal obstruction, nose pain, sinus pressure, sinus pain, post nasal drip, headache(s), facial pain, dental pain, dry mouth, bad breath, hoarseness, lip swelling, mouth lesions, mouth pain, sore throat, tongue swelling, throat swelling, other, difficulty swallowing or neck pain Resp Respiratory: Positive for cough and wheezing; no change in phlegm color, chest congestion, excessive phlegm production, hemoptysis, pain on inspiration, shortness of breath, pain with cough, snoring, stridor or other Cardio Cardiology: No chest pain at rest, chest pain with exertion, leg pain with exertion, excessive sweating, shortness of breath, dyspnea on exertion, generalized swelling, irregular heart rhythm, lightheadedness, orthopnea, radiating jaw, neck or arm pain, fast heart rate, slow heart rate, palpitations or other Gastro GI: No abdominal pain, belching, bloating, change in bowel habits, change in stool character, coffee ground emesis, constipation, cramping, diarrhea, heartburn, difficulty swallowing, feeling full early, excessive flatus, incontinent of stools, Vomiting blood/hematemesis, blood in stool, loose stools, Black,tarry stools, nausea/dyspepsia, pain with swallowing, vomiting or other Genitourinary Male: No difficulty urinating, burning urination, painful urination, urinary incontinence, urinary frequency, urinary urgency, urinary hesitancy, urinary retention, blood in urine, Frequent nighttime urination/ nocturia, post void dribbling, suprapubic fullness, side pain, sexual problems, genital lesions, genital itching, erectile dysfunction, penile discharge, difficulty with ejaculations, blood in semen, scrotal swelling, testicle lump, testicle pain or other Musc Musculoskeletal: No abnormal walking, joint pain, back pain, deformity, joint swelling, limited range of motion, loss of height, muscle cramps, muscle weakness, decreased muscle mass, body aches, neck pain, numbness, radiating pain into limb, stiffness, tingling or other Skin Skin: Positive for wounds (R foot); no acne, hair loss, change in hair, nail changes, boil, change in skin color, dry skin, redness, excessive hair growth, yellowing of the skin, lesions, itching, rash, skin pain, skin ulcer, sores, skin swelling or other Breast Breast: No other Neuro Neurology: No frequent falls, weakness, visual disturbances, abnormal hearing, headache(s), abnormal walking, numbness or tingling Psych Psychiatric: No abnormal sleep pattern, No change in appetite Endo Endocrine: No fatigue, other or excessive sweating Aller/Imm Allergy/Immunologic: Positive for wheezing; no lip swelling, tongue swelling, throat swelling or itchy eyes Assessment AND Plan Problems 1. Diabetes mellitus type 2, uncontrolled, with complications E11.8; E11.65 Plan Has open area bottom on foot where he has removed a calus and is did not heal. He is asking to see a jewelry sales instead of wound center. Referral made and appointment made for Dr. Castellanos. BG readings vary somewhat. Patient has had some low BG recently and he is ask to monitor this more closely. He thinks it hapeened as he took extra insulin for snacks he was consuming but snacks were high fat content and the extra insulin created a low. Eye exam scheduled. Labs due BP in range. Discussed need to restart his danielle inhibitor. Will update labs Patient Instructions Keep appointment with podiatry Labs as ordered RTC every 3 months Bring meter Restart danielle inhibitor following labs Orders Orders: Referrals: Plan Detail Additional Comments 1. Please schedule follow up in 3 months. 2. Lab work one week before appointment. 3. Discussed importance of regular exercise and recommend starting or continuing a regular exercise program for good health. 4. The patient was encouraged to lose weight for good health 5. The importance of monitoring blood sugar regularly was reviewed. 6. The importance of monitoring the HBA1c level regularly was reviewed. 7. The importance of prper foot care and regularly checking feet to prevent sores and loss of limbs was reviewed. 8. The importance of keeping BP at or below 130/80 to prevent stroke, heart attacks, kidney failure, blindness was reviewed. Spent approximately 30 minutes with patient with over 50% of time spent in discussion and counseling regarding medication adjustment, symptoms and treatment of hypoglycemia, diet adherence, and checking BG before driving. Coding Level of Care Code Off vis,est,level 3 Diagnoses Diabetes mellitus type 2, uncontrolled, with complications E11.8; E11.65 05/16/18 08 <Electronically signed by Mirna FIGUEROA> Date Mirna FIGUEROA Cosigner Signature: Date (if applicable) CC: ENDOCRINOLOGY VISIT Observed: 02/22/2018 Status: F Source: BRIGIDO REPORT 4:54 PM [facility] [place] REPOSIT[facility] [address] [place] [address] OFFICE VISIT Date of Service: 02/11/18 MR#: [id number] Acct: [id number] Name: TEZSARAH MCGOWAN Rep #: [id number] : 1985 Provider: Mirna Oliveira NP Age/Sex: 32/M Location: [facility] [place] Status: Signed HPI History of present illness Sarah Raman is a 31 yr old male whopresents for follow up of diabetes type 1. Last seen over 1 year ago. Before that seen about a year previous. Reports he is taking basaglar 30 units daily and meal insulin 32 units per meal. He does not bring his BG readings with him but states he checks 4 times daily and finds BG do okay. Has callus on foot which he reports has ulcer which tunnels underneath. Does not have a jewelry sales. Feet have intermittent numbness now. Pt denies difficulty with injections or self monitoring of BG. Denies any signs of infection or irritation at site of injections. Reports taking insulin as directed At time of visit: No recent labs completed. -Pt denies symptoms of hypertensive emergency (CP,SOB,SHELL, or blurred vision) and hypotension(dizziness or lightheadedness) -Pt denies symptoms of hypoglycemia ( sweaty, confusion, anxiety, tremor, hunger, palpitations) and hyperglycemia ( polydipsia, polyuria) -Pt denies potential medication adverse effect. Hypoglycemia Aware of hypoglycemia: When awake Able to self treat low BG: Yes Frequent low Blood sugar: No Has supply of glucagon: Yes Diet 3 meals Carb counts Occ snacks Exercise Is active No routine exercise program Works 60+ hours weekly [employer] No data Type: type 1, insulin-requiring Glucose control symptoms: Reports hypoglycemic with activity, high fasting glucose and nocturia Weight and fatigue symptoms: Denies snoring Cardiopulmonary symptoms: Reports lightheadedness; denies chest pain at rest, dyspnea on exertion or myalgias GI symptoms: Reports diarrhea; denies constipation, nausea/dyspepsia or vomiting Skin and extremity symptoms: Reports tingling/numbness/burning; denies erectile dysfunction Other symptoms: Denies blurry vision or change in vision Self monitoring: Yes Dietary compliance: Diabetes: other Diabetes education in past year: No Glucose testing: demonstrates correct use of meter, understands testing schedule Sick day education - understands ketone testing: Yes Physical activity: regular Exam Const General: well groomed Nutritional Appearance: thin Orientation: oriented x3 HENMT Head: normal to inspection, atraumatic Ears: hearing grossly normal bilaterally Face and sinus: normal facial exam Mouth: oral mucosae normal, moist mucous membranes Teeth and gingiva: dentition normal Eyes Eyelids: eyelids normal Conjunctivae: conjunctivae normal Sclera: sclerae normal Pupils: PERRL Neck Neck mass: No Resp Effort AND Inspection: normal respiratory effort, able to speak in complete sentences, symmetric chest movement Auscultation: Bilateral: Clear to Auscultation Cardio Rate: regular rate Rhythm: regular rhythm Heart Sounds: S1 normal, S2 normal, no murmurs GI Inspection: normal to inspection Auscultation: normal bowel sounds Palpation: soft, no guarding Skin General: no rashes or lesions noted Wounds: wounds noted (callus foot right) Diabetic Foot Pulses: L dorsalis pedis pulse: normal, R dorsalis pedis pulse: normal Monofilament test: Left foot: abnormal, Right foot: abnormal Neuro Cranial Nerves: CN's II-XI intact bilaterally Extrem General: normal capillary refill, full ROM, normal to inspection Psych Appearance: grossly normal Mental Status: mental status grossly normal Mood: congruent mood Affect: normal affect Speech and Movement: speech and movement normal Attitude: cooperative Thought Process: normal Thought Content: normal Judgment: judgment good Intake Vital Signs02/11/18 Height 6 ft 2 in 02/11/18 Weight: 193 lb 2 oz 02/11/18 Body Mass Index (BMI) 24.7 02/11/18 Blood Pressure 103/67 02/11/18 Blood Pressure Location Lt popliteal 02/11/18 Blood Pressure Position Sitting Intake Visit Reasons: Diabetes follow-up Form Builder Required: No Accompanied by: Self Is patient in pain?: No Allergies cefprozil [From Cefzil] Allergy (Unknown, Verified 02/11/18 11:54) Unknown industrial glue Allergy (Unknown, Uncoded 02/11/18 11:54) Unknown Medications blood sugar diagnostic strips See Dose Instructions .ROUTE .MEDSUPPLY #150 ea 02/11/18 [Rx Confirmed 02/11/18] insulin aspart U-100 100 unit/mL subcutaneous pen See Label Instructions SC QPM #30 ml 02/11/18 [Rx Confirmed 02/11/18] insulin glargine (U-100) 100 unit/mL (3 mL) subcutaneous pen 30 unit SC QDAY #15 ml 02/11/18 [Rx Confirmed 02/11/18] pen needle, diabetic 31 gauge x 3/16 See Dose Instructions .ROUTE .MEDSUPPLY #150 ea 02/11/18 [Rx Confirmed 02/11/18] flash glucose scanning reader See Dose Instructions .ROUTE .MEDSUPPLY #1 ea 02/22/18 [Rx Confirmed 02/22/18] flash glucose sensor kit See Dose Instructions .ROUTE .MEDSUPPLY #3 ea 02/22/18 [Rx Confirmed 02/22/18] Nurse's Note: blood sugars : low : 56 high : 500+ PFSH Medical History Type 1 diabetes mellitus (Acute) Family History Father Heart disease Mother Diabetes Social History Smoking Status: Current every day smoker alcohol intake: never substance use type: does not use ROS Const Constitutional: No anorexia, body ache, chills, fatigue, fever(s), frequent falls, decreased energy, malaise, night sweats, weakness, weight change, sleep problems, abnormal sleep pattern, change in appetite, other, headache(s), snoring or excessive sweating Eyes Eyes: No blurry vision, change in vision, double vision, discharge, dry eyes, bulging eyes, floaters, visual disturbances, eye pain, light sensitivity, spots in vision, tunnel vision or other ENT ENT: No abnormal hearing, ear pain, ear discharge, ear pressure, hearing loss, tinnitus, dizziness/vertigo, balance problems, nosebleed/epistaxis, nasal congestion, nasal obstruction, nose pain, sinus pressure, sinus pain, nasal discharge, post nasal drip, headache(s), facial pain, dental pain, dry mouth, bad breath, hoarseness, lip swelling, mouth lesions, mouth pain, sore throat, tongue swelling, throat swelling, other, difficulty swallowing or neck pain Resp Respiratory: Positive for cough and shortness of breath; no change in phlegm color, chest congestion, excessive phlegm production, hemoptysis, pain on inspiration, pain with cough, snoring, stridor, wheezing or other Cardio Cardiology: Positive for generalized swelling, lightheadedness and other (fainting x 1); no chest pain at rest, chest pain with exertion, leg pain with exertion, excessive sweating, shortness of breath, dyspnea on exertion, irregular heart rhythm, orthopnea, radiating jaw, neck or arm pain, fast heart rate, slow heart rate or palpitations Gastro GI: Positive for diarrhea; no abdominal pain, belching, bloating, change in bowel habits, change in stool character, coffee ground emesis, constipation, cramping, heartburn, difficulty swallowing, feeling full early, excessive flatus, incontinent of stools, Vomiting blood/hematemesis, blood in stool, loose stools, Black,tarry stools, nausea/dyspepsia, pain with swallowing, vomiting or other Genitourinary Male: No difficulty urinating, burning urination, painful urination, urinary incontinence, urinary frequency, urinary urgency, urinary hesitancy, urinary retention, blood in urine, Frequent nighttime urination/ nocturia, post void dribbling, suprapubic fullness, side pain, sexual problems, genital lesions, genital itching, erectile dysfunction, penile discharge, difficulty with ejaculations, blood in semen, scrotal swelling, testicle lump, testicle pain or other Musc Musculoskeletal: No abnormal walking, joint pain, back pain, deformity, joint swelling, limited range of motion, loss of height, muscle cramps, muscle weakness, decreased muscle mass, body aches, neck pain, numbness, radiating pain into limb, stiffness, tingling or other Skin Skin: Positive for wounds (R foot, outer aspect, per pt quarter sz); no acne, hair loss, change in hair, nail changes, boil, change in skin color, dry skin, redness, excessive hair growth, yellowing of the skin, lesions, itching, rash, skin pain, skin ulcer, sores, skin swelling or other Breast Breast: No other Neuro Neurology: No frequent falls, weakness, visual disturbances, abnormal hearing, headache(s), abnormal walking, numbness or tingling Psych Psychiatric: No abnormal sleep pattern, No change in appetite Endo Endocrine: No fatigue, other or excessive sweating Aller/Imm Allergy/Immunologic: No lip swelling, tongue swelling, throat swelling, wheezing or itchy eyes Assessment AND Plan 1. Type 1 diabetes mellitus with foot ulcer E10.621; L97.509 Plan Refer to wound center Needs to RTC routine basis Labs as ordered Bring meter to appointments with data for review. 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 Will order khoi sensor Orders Orders: Plan Detail Other Orders Orders: Other Medications New: insulin aspart U- (Novolog Flexpen U-) 30 units with each meal + sliding scale, uE10.65 p to 120 units qd SC QPM insulin glargine (U-100) (Basaglar [id number] units (0.3 mL) Sub-Q QDAY E10.65 U-100 Insulin) Additional Comments 1. Please schedule follow up in 3 months. 2. Lab work one week before appointment. 3. Discussed importance of regular exercise and recommend starting or continuing a regular exercise program for good health. 4. The patient was encouraged to lose weight for good health 5. The importance of monitoring blood sugar regularly was reviewed. 6. The importance of monitoring the HBA1c level regularly was reviewed. 7. The importance of prper foot care and regularly checking feet to prevent sores and loss of limbs was reviewed. 8. The importance of keeping BP at or below 130/80 to prevent stroke, heart attacks, kidney failure, blindness was reviewed. Spent approximately 30 minutes with patient with over 50% of time spent in discussion and counseling regarding medication adjustment, symptoms and treatment of hypoglycemia, diet adherence, and checking BG before driving. Coding Level of Care Code Off vis,est,level 4 Diagnoses Type 1 diabetes mellitus with foot ulcer E10.621; L97.509 Diabetes mellitus type: type 1 Diabetes mellitus complication status: with skin complications Diabetes mellitus complication detail: with foot ulcer 02/22/18 1654 <Electronically signed by Mirna FIGUEROA> Date Mirna FIGUEROA Cosigner Signature: Date (if applicable) CC: PROGRESS Observed: 12/12/2017 Status: COMPLETED Source: [facility] 12:31 PM [facility] HNO ID: [id number] Author: Rachele Clement Service: (none) Author Type: Nurse Practitioner Type: Progress Notes Filed: 12/12/2017 1:39 PM Note Text: Subjective HPI HPI Sarah Raman is a 32 year old male who presents today for CC of right eye redness/drainage. This started 1 day ago. Has tried nothing. Symptoms are worsened by nothing. 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 - no injury to right eye noted. Nasal congestion/pressure, sore throat, cough for 1 week. Patient is an everyday smoker .Patient presents with: Eye Problem: right, redness, itching, matting x last night PAST MEDICAL HISTORY Diagnosis Date - Type I (juvenile type) diabetes mellitus without mention of complication, not stated as uncontrolled No past surgical history on file. ALLERGIES Cefzil [Cefprozil]; Glue [Other] MEDICATIONS insulin glargine (LANTUS) 100 unit/mL (3 mL) inpn Administer 45 units at bedtime Insulin Odessa, Disposable, (BD ULTRAFINE III MINI PEN) 31 gauge x 3/16 ndle Use one needle for each dose. 6/day insulin aspart (NOVOLOG FLEXPEN) 100 unit/mL inpn Inject 32 units with meals up to 100 units daily. Plus sliding scale correction up to 32 units/day blood sugar diagnostic (FREESTYLE LITE STRIPS) test strip Test blood sugar(s) 6-7 x daily. Dx: e10.65. Insulin: Yes lancets (FREESTYLE LANCETS) 28 gauge misc Test blood sugar(s) 6-7x daily. Dx: e10.65. Insulin: Yes COMPOUNDED PRESCRIPTION Insulin syringes 1/2 cc 31 guage oxaprozin (DAYPRO) 600 mg tablet Take 1 tablet by mouth twice daily. enalapril (VASOTEC) 20 mg tablet Take 0.5 tablets by mouth once daily. FAMILY HISTORY Problem Relation Age of Onset - Diabetes Mother Social History Substance Use Topics - Smoking status: Current Every Day Smoker Packs/day: 0.50 Types: Cigarettes - Smokeless tobacco: Never Used - Alcohol use No Review of Systems Constitutional: Negative for chills, fever and weight loss. HENT: Positive for congestion, sinus pain and sore throat. Negative for ear discharge, ear pain and nosebleeds. Eyes: Positive for discharge and redness. Negative for blurred vision, double vision, photophobia and pain (pressure behind right eye/cheek). Respiratory: Positive for cough. Negative for shortness of breath and wheezing. Musculoskeletal: Negative for neck pain. Skin: Negative for itching and rash. Neurological: Negative for headaches. Objective Blood pressure 122/64, pulse 78, temperature 36.2 ?C (97.1 ?F), temperature source Tympanic, resp. rate 16, weight 82.6 kg (182 lb). Physical Exam Constitutional: He is oriented to person, place, and time and well-developed, well-nourished, and in no distress. Non-toxic appearance. He does not have a sickly appearance. No distress. HENT: Head: Normocephalic and atraumatic. Right Ear: Hearing, tympanic membrane, external ear and ear canal normal. Left Ear: Hearing, tympanic membrane, external ear and ear canal normal. Nose: Right sinus exhibits maxillary sinus tenderness and frontal sinus tenderness. Mouth/Throat: Uvula is midline, oropharynx is clear and moist and mucous membranes are normal. Eyes: Pupils are equal, round, and reactive to light. Right eye exhibits discharge (green). Right eye exhibits no exudate and no hordeolum. No foreign body present in the right eye. Left eye exhibits no discharge. Right conjunctiva is injected. No scleral icterus. Neck: Trachea normal and normal range of motion. Neck supple. Cardiovascular: Normal rate, regular rhythm and normal heart sounds. Pulmonary/Chest: Effort normal and breath sounds normal. Lymphadenopathy: He has no cervical adenopathy. Neurological: He is alert and oriented to person, place, and time. Skin: No rash noted. He is not diaphoretic. ASSESSMENT/PLAN: 1. Bacterial sinusitis - ICD9: 473.9, 041.9, ICD10: J32.9, B96.89 (primary diagnosis) -pain worsened past 2 days - Will begin treatment with Doxycline - Supportive care with plenty of fluids, rest, and analgesia prn. - Follow up in 3-5 days if symptoms persist or worsen. - DOXYCYCLINE MONOHYDRATE 100 MG TABLET 2. Bacterial conjunctivitis - ICD9: 372.39, 041.9, ICD10: H10.9 Bacterial - see medication orders - course and contagiousness issues discussed, including hand washing. - Instructed to call if high fever, development of periorbital redness or swelling, eye pain, visual changes, concerns or if symptoms persist. - CIPROFLOXACIN 0.3 % EYE DROPS Prescription instructions reviewed with patient as applicable. Patient advised if symptoms do not improve or if symptoms worsen sooner, to contact the office for further evaluation by their primary care physician. Potential red flag symptoms discussed with the patient. Reviewed appropriate action plan to take if red flag symptoms occur. Patient agreeable to treatment plan. Rachele Clement APRN.CNP CNOV Observed: 12/12/2017 Status: COMPLETED Source: [facility] 12:15 PM [facility] REPOSIT[facility] Office Visit ([facility]) SARAH RAMAN ([id number]) 1985 M Date Time Provider Department 12/12/17 12:15 PM RACHELE CLEMENT (FLYNN) [facility] During your visit today, we recorded the following information about you: Temperature Pulse Respiration Blood pressure 97.1 degrees 78/minute 16/minute 122/64 Weight 82.6 kg Rachele Clement APRN.CNP 12/12/2017 1:39 PM Signed Subjective HPI HPI Sarahvu Raman is a 32 year old male who presents today for CC of right eye redness/drainage. This started 1 day ago. Has tried nothing. Symptoms are worsened by nothing. 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 - no injury to right eye noted. Nasal congestion/pressure, sore throat, cough for 1 week. Patient is an everyday smoker .Patient presents with: Eye Problem: right, redness, itching, matting x last night PAST MEDICAL HISTORY Diagnosis Date - Type I (juvenile type) diabetes mellitus without mention of complication, not stated as uncontrolled No past surgical history on file. ALLERGIES Cefzil [Cefprozil]; Glue [Other] MEDICATIONS insulin glargine (LANTUS) 100 unit/mL (3 mL) inpn Administer 45 units at bedtime Insulin Odessa, Disposable, (BD ULTRAFINE III MINI PEN) 31 gauge x 3/16 ndle Use one needle for each dose. 6/day insulin aspart (NOVOLOG FLEXPEN) 100 unit/mL inpn Inject 32 units with meals up to 100 units daily. Plus sliding scale correction up to 32 units/day blood sugar diagnostic (FREESTYLE LITE STRIPS) test strip Test blood sugar(s) 6-7 x daily. Dx: e10.65. Insulin: Yes lancets (FREESTYLE LANCETS) 28 gauge misc Test blood sugar(s) 6-7x daily. Dx: e10.65. Insulin: Yes COMPOUNDED PRESCRIPTION Insulin syringes 1/2 cc 31 guage oxaprozin (DAYPRO) 600 mg tablet Take 1 tablet by mouth twice daily. enalapril (VASOTEC) 20 mg tablet Take 0.5 tablets by mouth once daily. FAMILY HISTORY Problem Relation Age of Onset - Diabetes Mother Social History Substance Use Topics - Smoking status: Current Every Day Smoker Packs/day: 0.50 Types: Cigarettes - Smokeless tobacco: Never Used - Alcohol use No Review of Systems Constitutional: Negative for chills, fever and weight loss. HENT: Positive for congestion, sinus pain and sore throat. Negative for ear discharge, ear pain and nosebleeds. Eyes: Positive for discharge and redness. Negative for blurred vision, double vision, photophobia and pain (pressure behind right eye/cheek). Respiratory: Positive for cough. Negative for shortness of breath and wheezing. Musculoskeletal: Negative for neck pain. Skin: Negative for itching and rash. Neurological: Negative for headaches. Objective Blood pressure 122/64, pulse 78, temperature 36.2 ?C (97.1 ?F), temperature source Tympanic, resp. rate 16, weight 82.6 kg (182 lb). Physical Exam Constitutional: He is oriented to person, place, and time and well-developed, well-nourished, and in no distress. Non-toxic appearance. He does not have a sickly appearance. No distress. HENT: Head: Normocephalic and atraumatic. Right Ear: Hearing, tympanic membrane, external ear and ear canal normal. Left Ear: Hearing, tympanic membrane, external ear and ear canal normal. Nose: Right sinus exhibits maxillary sinus tenderness and frontal sinus tenderness. Mouth/Throat: Uvula is midline, oropharynx is clear and moist and mucous membranes are normal. Eyes: Pupils are equal, round, and reactive to light. Right eye exhibits discharge (green). Right eye exhibits no exudate and no hordeolum. No foreign body present in the right eye. Left eye exhibits no discharge. Right conjunctiva is injected. No scleral icterus. Neck: Trachea normal and normal range of motion. Neck supple. Cardiovascular: Normal rate, regular rhythm and normal heart sounds. Pulmonary/Chest: Effort normal and breath sounds normal. Lymphadenopathy: He has no cervical adenopathy. Neurological: He is alert and oriented to person, place, and time. Skin: No rash noted. He is not diaphoretic. ASSESSMENT/PLAN: 1. Bacterial sinusitis - ICD9: 473.9, 041.9, ICD10: J32.9, B96.89 (primary diagnosis) -pain worsened past 2 days - Will begin treatment with Doxycline - Supportive care with plenty of fluids, rest, and analgesia prn. - Follow up in 3-5 days if symptoms persist or worsen. - DOXYCYCLINE MONOHYDRATE 100 MG TABLET 2. Bacterial conjunctivitis - ICD9: 372.39, 041.9, ICD10: H10.9 Bacterial - see medication orders - course and contagiousness issues discussed, including hand washing. - Instructed to call if high fever, development of periorbital redness or swelling, eye pain, visual changes, concerns or if symptoms persist. - CIPROFLOXACIN 0.3 % EYE DROPS Prescription instructions reviewed with patient as applicable. Patient advised if symptoms do not improve or if symptoms worsen sooner, to contact the office for further evaluation by their primary care physician. Potential red flag symptoms discussed with the patient. Reviewed appropriate action plan to take if red flag symptoms occur. Patient agreeable to treatment plan. Rachele Clement APRN.FLYNN Clement APRN.FLYNN 12/12/2017 12:41 PM Signed SINUSITIS: You have sinusitis, an infection of the sinus cavities around the nose. This infection usually follows a respiratory illness; it can also be related to allergies, changes in atmospheric pressure (flying, diving), or anything that blocks nasal drainage. Symptoms include: headache, facial pain, a thick nasal discharge, congestion, and cough. The treatment includes antibiotic therapy, increasing oral fluids, and pain medication if needed. Nose spray decongestants (Afrin, Gio- Synephrine) and oral decongestants may be needed to reduce congestion and drainage. Rarely the sinus must be irrigated to remove the infected material. Sinusitis can lead to serious complications by spreading to other areas such as the eye or brain. Please call your doctor or return here right away if you have any of the following more serious symptoms: - Unusual swelling around the eye or trouble seeing. - Increasing pain, severe headache, or toothache. - Nausea, vomiting, or unusual drowsiness. CONJUNCTIVITIS GENERAL INFORMATION: Conjunctivitis is also known as pink eye. It is an irritation of the underside of the eyelid and the white part of the eye. Conjunctivitis can be caused by infection, chemical irritation, or allergy. If infectious, it is very contagious. INSTRUCTIONS: The doctor has prescribed antibiotic drops or ointment. Use them as prescribed. Do not touch the dropper to the eye. Throw out the medication after completing treatment. If the doctor only prescribed the medication to be placed in one eye, and the other eye starts to bother you with the same symptoms, you may treat it in the same fashion. To ease discomfort, apply a warm or cool clean washcloth to your eye several times a day for 10 to 20 minutes. Gently wipe away discharge from the eyes with tissues. Wash your hands often with soap and use paper towels to dry them. Do not share towels, washcloths, or pillows. This could spread infection. Do not use eye make-up until the infection has resolved. Keep contact lenses out of eyes until the irritation is gone. Discard any eye make-up which you may have contaminated before the infection was diagnosed, and any eye make-up older than one year. Children should not return to school or daycare until the eye is no longer pink. Do not drive or operate machinery if your vision is blurred. Wear sunglasses if your eyes are sensitive to the light. CONTACT YOUR DOCTOR IF YOU OR YOUR CHILD NOTICE: *The eye is still pink 3 days after starting treatment with medicine. *Pain in the eye increases. *The redness is spreading. *Vision becomes blurred. *You have a temperature over 100.5 F (38 C). Referring Provider: SELF [200] Allergies As of Date: 12/12/2017 Noted Allergy Reaction CEFZIL (CEFPROZIL) 05/03/2005 glue [Other] 11/25/2006 Date Reviewed: 12/12/2017 Reviewed by: Rachele Clement - Fully Assessed Reason for Visit: Eye Problem [43] Cmt: right, redness, itching, matting x last night Primary Visit Diagnosis:Bacterial sinusitis [J32.9, B96.89] Other Visit Diagnosis:Bacterial conjunctivitis [H10.9] Order(s):ciprofloxacin HCl (CILOXAN) 0.3 % ophthalmic solutionUse 1-2 Drops in the right eye four times daily for 5 days.Disp: 1 BottleRfl: 0 doxycycline monohydrate 100 mg tabletTake 1 tablet by mouth twice daily for 10 days.Disp: 20 tabletRfl: 0 Prescriptions as of 12/12/2017 Sig: INSULIN GLARGINE (U-100) 100 * Administer 45 units at bedti* PEN NEEDLE, DIABETIC 31 GAUGE* Use one needle for each dose.* INSULIN ASPART U-100 100 UNI* Inject 32 units with meals up* BLOOD SUGAR DIAGNOSTIC STRIPS Test blood sugar(s) 6- 7 x rajiv* LANCETS 28 GAUGE Test blood sugar(s) 6- 7x ovi* * COMPOUNDED PRESCRIPTION Insulin syringes 1/2 cc 31 gu* CIPROFLOXACIN 0.3 % EYE DROPS Use 1-2 Drops in the right ey* DOXYCYCLINE MONOHYDRATE 100 M* Take 1 tablet by mouth twice * OXAPROZIN 600 MG TABLET Take 1 tablet by mouth twice * Patient not taking: Reported on 12/12/2017 ENALAPRIL MALEATE 20 MG TABLET Take 0.5 tablets by mouth onc* Patient not taking: Reported on 12/12/2017 Problem List As Of Date 12/12/2017 Noted Resolved PURE HYPERCHOLESTEROLEM [E78.00] INVALID FOR* Uncontrolled type 1 diabetes mellitus (HCC) [E1*INVALID FOR*03/05/2016 Tobacco use disorder [F17.200] INVALID FOR* Weight loss, unintentional [R63.4] INVALID FOR*06/16/2016 Uncontrolled type 1 diabetes mellitus with diab*INVALID FOR* Other instructions from your clinician: SINUSITIS: You have sinusitis, an infection of the sinus cavities around the nose. This infection usually follows a respiratory illness; it can also be related to allergies, changes in atmospheric pressure (flying, diving), or anything that blocks nasal drainage. Symptoms include: headache, facial pain, a thick nasal discharge, congestion, and cough. The treatment includes antibiotic therapy, increasing oral fluids, and pain medication if needed. Nose spray decongestants (Afrin, Gio-Synephrine) and oral decongestants may be needed to reduce congestion and drainage. Rarely the sinus must be irrigated to remove the infected material. Sinusitis can lead to serious complications by spreading to other areas such as the eye or brain. Please call your doctor or return here right away if you have any of the following more serious symptoms: - Unusual swelling around the eye or trouble seeing. - Increasing pain, severe headache, or toothache. - Nausea, vomiting, or unusual drowsiness. CONJUNCTIVITIS GENERAL INFORMATION: Conjunctivitis is also known as pink eye. It is an irritation of the underside of the eyelid and the white part of the eye. Conjunctivitis can be caused by infection, chemical irritation, or allergy. If infectious, it is very contagious. INSTRUCTIONS: The doctor has prescribed antibiotic drops or ointment. Use them as prescribed. Do not touch the dropper to the eye. Throw out the medication after completing treatment. If the doctor only prescribed the medication to be placed in one eye, and the other eye starts to bother you with the same symptoms, you may treat it in the same fashion. To ease discomfort, apply a warm or cool clean washcloth to your eye several times a day for 10 to 20 minutes. Gently wipe away discharge from the eyes with tissues. Wash your hands often with soap and use paper towels to dry them. Do not share towels, washcloths, or pillows. This could spread infection. Do not use eye make-up until the infection has resolved. Keep contact lenses out of eyes until the irritation is gone. Discard any eye make-up which you may have contaminated before the infection was diagnosed, and any eye make-up older than one year. Children should not return to school or daycare until the eye is no longer pink. Do not drive or operate machinery if your vision is blurred. Wear sunglasses if your eyes are sensitive to the light. CONTACT YOUR DOCTOR IF YOU OR YOUR CHILD NOTICE: *The eye is still pink 3 days after starting treatment with medicine. *Pain in the eye increases. *The redness is spreading. *Vision becomes blurred. *You have a temperature over 100.5 F (38 C). Prescriptions ordered this encounter Disp Refills Start End CIPROFLOXACIN 0.3 % EYE DROPS 1 Daniel* 0 12/12/2017 12/17/2017 Route: RIGHT EYE Sig: Use 1-2 Drops in the right eye four times daily for 5 days. DOXYCYCLINE MONOHYDRATE 100 MG TABLET 20 t* 0 12/12/2017 12/22/2017 Cmt: May transfer to [facility] if less expensive. Route: ORAL Sig: Take 1 tablet by mouth twice daily for 10 days. Letter Text [place] [facility] Rachele Clement CNP [address], [place] [address] 12/12/2017 Sarah Raman CC# [id number] [address] [facility] [address] TO WHOM IT MAY CONCERN: This is to confirm that Sarah Raman had an appointment and was seen at the [facility] in the Department of Urgent Care by Rachele Clement CNP on 12/12/2017. Diagnosis conjunctivitis. Sincerely yours, Rachele Clement CNP Encounter Status:Closed by RACHELE CLEMENT CNP on 12/12/17 ALLERGIES ALLERGIES DATE TYPE / CODE NAME / CODE REACTION SEVERITY SOURCE 05/21/2018 Drug cefprozil/F0060 Unknown Unknown [place] Allergy/[id number](S 12819(RXNORM) [facility]) Hospital Repository 05/14/2018 Miscellaneous industrial glue Unknown Unknown [place] All[facility]/[id number]([facility]) Hospital Repository 11/25/2006 Miscellaneous OTHER [place] [facility][id number][facility] [place] [place] Repository 05/03/2005 DRUG CEFPROZIL [place] [facility]EDI/[id number][facility] [place] [place] Repository ENCOUNTERS ENCOUNTERS ADMIT/DISCHARGE ACCOUNT ADMITTING ENCOUNTER LOCATION SOURCE NUMBER CLASS 07/30/2018 [id number] [facility] ing: Repository 07/09/2018/07/13/[id number] ing:[place] Repository 06/23/2018 [id number] [facility] ing:[facility] Repository 06/11/2018/06/12/[id number] ing:[place] Repository 05/18/2018/05/19/[id number] Repository 05/14/2018/05/14/20 [id number] Ambulatory BMSBuilding:B [place] [address].SUS[address] [facility] Repository 04/23/2018 [id number] Ambulatory [place] [facility] ing: Repository 03/19/2018/04/12/20 [id number] Ambulatory [place] 18 [facility] ing: Repository 02/11/2018/02/12/20 [id number] Ambulatory BMSBuilding[facility] [place] [facility] 12/12/2017/12/16/19 [id number] Ambulatory [address] Repository PAYERS PAYERS ENCOUNTER GUARANTOR PAYER SUBSCRIBER SOURCE 07/30/2018 SARAH S Primary SARAH S [place] [id number] Insurance:CARESOURCEP LEITYDOB: [facility] Number: [id number] [id number] Repository 86039Zbb: (330) Date:2018-06-13 O [phone] () [address]ATTN: [place] [address]JB: 07/30/2018 Secondary NOT GIVENUNK [place] Insurance:SELF PAY [facility] Number: Effective Repository Date:2018-07-14 07/09/2018 SARAH S Primary SARAH S [place] [id number] Insurance:CARESOURCEP SCHNEIDERTYDOB: [facility] Number: [id number], [place] [id number] Repository [address]Qof: (330) Date:2018-06-13 O [phone] () [address]ATTN: [place] [address]ST: 07/09/2018 Secondary NOT GIVENUNK [place] Insurance:SELF PAY [facility] Number: Effective Repository Date:2018-06-13 06/23/2018 SARAH S Primary SARAH S [place] [id number] Insurance:CARESOURCEP [facility] Number: [id number], [place] [id number] Repository [address]11[address]Fgo: (330) Date:2018-06-17P O [phone] (HP) [address]ATTN: [place] [address]NT: 06/23/2018 Secondary NOT GIVENUNK [place] Insurance:SELF PAY [facility] Number: Effective Repository Date:2018-06-17 06/11/2018 SARAH S Primary SARAH [place] [id number] Insurance:BUCKEYE LINETTETYDOB: [facility] [id number], [place] PLANPolicy Number: Repository [id number]: 330 [id number] [phone] (HP) Date:[id number] [address] [place] [address]YN: 06/11/2018 Secondary NOT GIVENUNK [place] Insurance:SELF PAY [facility] Number: Effective Repository Date:2018-05-19 05/14/2018 SARAH Primary SARAH [place] [id number] Insurance:BUCKEYE SUDEEPDOB: [facility] [id number], [place] PLANPolicy Number: Repository [id number]: 330 [id number] [phone] () Date:[id number] [address] [place] [address] 51348IM: 05/14/2018 Secondary NOT GIVENUNK [place] Insurance:SELF PAY [facility] Number: Effective Repository Date:2018-05-14 04/23/2018 SARAH Primary SARAH [place] [id number] Insurance:BUCKEYE SUDEEPDOB: [facility] [id number], [place] PLANPolicy Number: Repository [id number]: 330 [id number] [phone] (HP) Date:[id number] [address] [place] [address] 30669NM: 04/23/2018 Secondary NOT GIVENUNK [place] Insurance:SELF PAY [facility] Number: Effective Repository Date:2018-04-13 03/19/2018 SARAH Primary SARAH [place] [id number] Insurance:GONZÁLEZ ROACHB: [id number]: Repository [id number]: 330 [id number] [phone] (HP) Date:[id number] [address] [place] [address] 14448UM: 03/19/2018 Secondary NOT GIVENUNK [place] Insurance:SELF PAY [facility] Number: Effective Repository Date:2018-03-13 [facility]/11/[facility] F[place] [id number] Insurance:GONZÁLEZ ROACHB: [facility] [id number], [place] PLANPolicy Number: Repository [id number]: 330 [id number] [phone] (HP) Date:[id number] [address] [place] [address] 23887BU: 02/11/2018 Secondary NOT GIVENUNK [place] Insurance:SELF PAY [facility] Number: Effective Repository Date:2018-02-11
== END ==
PROVIDERS: Nurse Practitioner; Family Provider Internal Medicine; PCP Internal Medicine; Referring Provider Podiatrist; Visit Provider Podiatrist
DX: I73.9 Peripheral vascular disease, unspecified (principal); L97.512 Non-pressure chronic ulcer of other part of right foot with fat layer exposed; E11.9 Type 2 diabetes mellitus without complications
CPT/HCPCS: 36415; 80053; 80061; 82043; 82570; 83036; 93923

== ENCOUNTER 2018-07-09 08:00 | Outpatient (RCR) | payer MEDICAID, SELFPAY ==
[2018-06-13 01:58] VITALS: BP 120/69; PULSE 95; RESP 18; TEMP 36.6
[2018-06-18 08:11] VITALS: BP 106/71; PULSE 113; RESP 16; TEMP 37.1; BMI 24.6
--- NOTE | 2018-06-18 08:30 | PCM.WC.PN ---
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 (2) Diabetes mellitus type 1 Status: Acute Current Visit: No Code(s): E10.9 - Type 1 diabetes mellitus without complications (3) Pain in right foot Status: Acute Current Visit: No Code(s): M79.671 - Pain in right foot (4) Delayed wound healing Status: Acute Current Visit: No Code(s): T14.8XXD - Other injury of unspecified body region, subsequent encounter Type of Wound Chief Complaint: right plantar foot ulcer History of Wound: This 33-year-old diabetic male presents to the wound healing center for ulcer sub-right fifth metatarsal head. The patient states this started months ago as a blister after walking for an extended period of time in shoes that were not appropriate. He says that after the blister popped, he had been managing the area on his own and he would continue to heal the site and then it would break back down again a few weeks later. He says he had it healed for a while, and then about 1 month ago the area broke back down and has not completely healed since. He says he wanted to have the area evaluated since he is diabetic. He was seen at an urgent care and states that they recently put him on an antibiotic but he is unsure which one this is. He has not kept the area offloaded. He has been dressing the area on his own with Neosporin and a bandage. He denies any purulence, surrounding or extending redness, or increase in warmth. He does relate the area is painful at times. Progress of Wound: Ulcer site is improving. Patient has been wearing offloading surgical shoe as well as offloading CAM walker and applying daily dressing changes as instructed. Patient denies any feelings, of nausea, vomiting, fever, or chills today. - Physical Exam Vital Signs Temp Pulse Resp BP 98.7 F 113 H 16 106/71 06/18/18 08:11 06/18/18 08:11 06/18/18 08:11 06/18/18 08:11 General: Alert, Oriented x3, Cooperative, No apparent distress Extremities: Capillary Refill Less than 3 Seconds, No Calf Tenderness, Edema - Negative Sean and Sanders sign minor lower extremity edema, Peripheral Pulses Normal - DP and PT pulses palpable bilateral Skin: Ulcer/ Wound - Ulcer sub-right fifth metatarsal head with fat layer exposed. Improvement noted since last week. Measurements noted below. Ulcer base noted to be a mixture of adherent slough, fibrin, biofilm, granular tissue, as well as some surrounding hyperkeratotic tissue. There continues to be no probing to bone, no tracking, no undermining, no purulence, no extending or surrounding cellulitis, and no increase in warmth to the ulcer site at this time. Wound Measurements and Assessment WC - Nurse 1 - General Ulcer Measurement Start: 06/18/18 08:11 Freq: Status: Active Protocol: Activity Type Activity Date Activity User E-Sign Co-Sign Detail Recorded Client Recorded Date Recorded By Document 06/18/18 08:11 DL [id number] 06/18/18 08:16 DL 06/18/18 08:11 Wound Center Nurse 1 [Ulcer Assessment] #1- RT PLANTAR FOOT -Current Size (cm) - Length 0.1 -Current Size (cm) - Width 0.1 -Current Size (cm) - Depth 0.1 -Total Square Cm 0.01 -Photo Taken No -Exudate Amt None Present (0 %) -Wound Margin Thickened -Granulation Amt Large (67-100%) -Granulation Quality Pale -Necrosis Amt None Present (0 %) -Structure Exposed N/A -Texture (Yu-wound Skin Appearance) Scarring -Moisture (Yu-wound Skin Appearance Dry/Scaly ) -Color (Yu-wound Skin Appearance) No Abnormality -Temperature (Yu-wound Skin No Abnormality Appearance) (Pt Warm) -Ulcer Cleansing Rinsed/ Irrigated with Saline -Foul Odor after Cleansing No -Anesthetic Used 4% Lidocaine Solution Musculoskeletal: Tenderness - With manipulation of ulcer site Neurological: Sensory exam intact to light touch and pain Psych/Mental Status: Normal Affect, Appropriate Debridement Note Wound debrided: Right sub-fifth met head Laterality: Right Type of Debridement: Excisional debridement Anesthesia Used: 4% Lidocaine Solution Depth: in the subcutaneous layer Percentage of wound debrided: 100 Instrument Used: #15 blade Tissue Removed: Adherent slough, fibrin, biofilm, hyperkeratotic tissue Severity: Fat Layer Exposed Amount of bleeding with debridement: Mild Bleeding Controlled with: Pressure Patient tolerated procedure well Assessment/Plan Assessment: Ulcer right sub-fifth met head. DM. Pain right foot Plan: Patient was examined and evaluated again today. A subcutaneous debridement was performed as noted in the clinical panel. Once complete, slightly moistened Jessica was applied to the ulcer base, followed by a dry sterile dressing and a Tubigrip for compression. Patient is to have the dressing changed in this manner and on a daily basis. The importance of offloading the ulcer site was discussed at great length again today and the patient says he has been doing well wearing his offloading surgical shoe. He was given an offloading CAM walker as well from Dr. Martinez last week, and he was instructed to wear this at all times weight bearing. I recommended nutritional supplementation with a high-protein diet in order to optimize wound healing potential for this patient. Importance of tight glycemic control was stressed to the patient today. Smoking cessation was discussed with this patient today. Patient was educated on all signs and symptoms of local and systemic infection, and he was instructed to go to the emergency room immediately should he all in any other questions were answered to the patient's satisfaction. Patient will follow-up in clinic in 1 week to check on progress, or sooner if needed.
[2018-06-25 08:12] VITALS: BP 123/78; PULSE 89; RESP 18; TEMP 36.4; BMI 24.6
--- NOTE | 2018-06-25 08:31 | PCM.WC.PN ---
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 (2) Diabetes mellitus type 1 Status: Acute Current Visit: No Code(s): E10.9 - Type 1 diabetes mellitus without complications (3) Pain in right foot Status: Acute Current Visit: No Code(s): M79.671 - Pain in right foot (4) Delayed wound healing Status: Acute Current Visit: No Code(s): T14.8XXD - Other injury of unspecified body region, subsequent encounter Type of Wound Chief Complaint: right plantar foot ulcer History of Wound: This 33-year-old diabetic male presents to the wound healing center for ulcer sub-right fifth metatarsal head. The patient states this started months ago as a blister after walking for an extended period of time in shoes that were not appropriate. He says that after the blister popped, he had been managing the area on his own and he would continue to heal the site and then it would break back down again a few weeks later. He says he had it healed for a while, and then about 1 month ago the area broke back down and has not completely healed since. He says he wanted to have the area evaluated since he is diabetic. He was seen at an urgent care and states that they recently put him on an antibiotic but he is unsure which one this is. He has not kept the area offloaded. He has been dressing the area on his own with Neosporin and a bandage. He denies any purulence, surrounding or extending redness, or increase in warmth. He does relate the area is painful at times. Progress of Wound: Ulcer improving. Patient has been wearing offloading surgical shoe as well as offloading CAM walker and applying daily dressing changes as instructed with jessica. Patient denies any feelings, of nausea, vomiting, fever, or chills today. - Physical Exam Vital Signs Temp Pulse Resp BP 97.5 F L 89 18 123/78 H 06/25/18 08:12 06/25/18 08:12 06/25/18 08:12 06/25/18 08:12 General: Alert, Oriented x3, Cooperative, No apparent distress Extremities: Capillary Refill Less than 3 Seconds, No Calf Tenderness - Negative Sean and Sanders sign, Edema - Minor lower extremity edema, Peripheral Pulses Normal - DP and PT pulses palpable bilateral Skin: Ulcer/ Wound - Ulcer sub-right fifth metatarsal head with fat layer exposed. Improvement noted since last week. Measurements are below. Ulcer base noted to be a mixture of adherent slough, fibrin, biofilm, granular tissue, as well as some surrounding hyperkeratotic tissue. There continues to be no probing to bone, no tracking, no undermining, no purulence, no extending or surrounding cellulitis, and no increase in warmth at this time. Wound Measurements and Assessment WC - Nurse 1 - General Ulcer Measurement Start: 06/18/18 08:11 Freq: Status: Active Protocol: Activity Type Activity Date Activity User E-Sign Co-Sign Detail Recorded Client Recorded Date Recorded By Document 06/25/18 08:12 DL [id number] 06/25/18 08:17 DL 06/25/18 08:12 Wound Center Nurse 1 [Ulcer Assessment] #1- RT PLANTAR FOOT -Current Size (cm) - Length 0.1 -Current Size (cm) - Width 0.1 -Current Size (cm) - Depth 0.1 -Total Square Cm 0.01 -Photo Taken No -Exudate Amt None Present (0 %) -Wound Margin Thickened -Granulation Amt Large (67-100%) -Granulation Quality Pale -Necrosis Amt Small (1-33%) -Necrotic Tissue Type Eschar -Structure Exposed N/A -Texture (Yu-wound Skin Appearance) Callus -Moisture (Yu-wound Skin Appearance Dry/Scaly ) -Color (Yu-wound Skin Appearance) No Abnormality -Temperature (Yu-wound Skin No Abnormality Appearance) (Pt Warm) -Tenderness on Palpation (Yu-wound No Skin Appearance) -Ulcer Cleansing Rinsed/ Irrigated with Saline -Foul Odor after Cleansing No -Anesthetic Used 4% Lidocaine Solution WC - Nurse 2 - General Ulcer CM Notes Start: 06/18/18 08:11 Freq: Status: Active Protocol: Activity Type Activity Date Activity User E-Sign Co-Sign Detail Recorded Client Recorded Date Recorded By Document 06/25/18 08:24 DL [id number] 06/25/18 08:30 DL 06/25/18 08:24 Wound Center Nurse 2 [Procedure/Treatment] -Time 08:25 -Correct Patient Yes -Correct Side, Site, Position Yes -Correct Procedure Yes -Procedure Performed Yes -Type of Procedure Debridement -Clinical Debridement Subcutaneous -Post Debridement Size (cm) - Length 0.2 -Post Debridement Size (cm) - Width 0.3 -Post Debridement Size (cm) - Depth 0.1 -Total Square Cm 0.06 -Wound/Ulcer Outcome Not Healed -Ulcer Cleansing Rinsed/ Irrigated with Saline -Foul Odor after Cleansing No -Bioengineered Tissue No -Bleeding Controlled with Pressure -Offloading No -Type of Offloading Surgical Shoe -Treatment Response Procedure Tolerated Well [See Physician Procedure note for Specifics] Pain Scale: 0-10 Numeric [Pain] -Is Patient Pain Free? Yes Musculoskeletal: Tenderness - With manipulation of ulcer site Neurological: Sensory exam intact to light touch and pain Psych/Mental Status: Normal Affect, Appropriate Debridement Note Post-Debridement Measurements/Treatment WC - Nurse 2 - General Ulcer CM Notes Start: 06/18/18 08:11 Freq: Status: Active Protocol: Activity Type Activity Date Activity User E-Sign Co-Sign Detail Recorded Client Recorded Date Recorded By Document 06/18/18 08:26 DV [id number] 06/18/18 08:32 DV Document 06/25/18 08:24 DL [id number] 06/25/18 08:30 DL 06/18/18 06/25/18 08:26 08:24 Wound Center Nurse 2 #1- RT PLANTAR FOOT -Time 08:27 08:25 -Correct Patient Yes Yes -Correct Side, Site, Position Yes Yes -Correct Procedure Yes Yes -Procedure Performed Yes Yes -Type of Procedure Debridement Debridement -Clinical Debridement Subcutaneous Subcutaneous -Post Debridement Size (cm) - Length 0.5 0.2 -Post Debridement Size (cm) - Width 0.5 0.3 -Post Debridement Size (cm) - Depth 0.2 0.1 -Total Square Cm 0.25 0.06 -Wound/Ulcer Outcome Not Healed Not Healed -Ulcer Cleansing Rinsed/ Rinsed/ Irrigated with Irrigated with Saline Saline -Foul Odor after Cleansing No No -Bioengineered Tissue No No -Bleeding Controlled with Pressure Pressure -Offloading No -Type of Offloading Surgical Shoe -Treatment Response Procedure Procedure Tolerated Well Tolerated Well Pain Scale: 0-10 Numeric Is Patient Pain Free? Yes Yes Wound debrided: Right subphrenic met head Laterality: Right Type of Debridement: Excisional debridement Anesthesia Used: 4% Lidocaine Solution Depth: in the subcutaneous layer Percentage of wound debrided: 100 Instrument Used: #15 blade Tissue Removed: Adherent slough, fibrin, biofilm, hyperkeratotic tissue Severity: Fat Layer Exposed Amount of bleeding with debridement: Mild Bleeding Controlled with: Pressure Patient tolerated procedure well Assessment/Plan Assessment: Ulcer right sub-fifth met head. DM. Pain right foot Plan: Patient was examined and evaluated again today. A subcutaneous debridement was performed as noted in the clinical panel. Once complete, slightly moistened Jessica was applied to the ulcer base, followed by a dry sterile dressing and a Tubigrip for compression. Patient is to have the dressing changed in this manner and on a daily basis. The importance of offloading the ulcer site was discussed at great length again today and the patient says he has been doing well wearing his offloading surgical shoe as well as offloading CAM walker. I recommended nutritional supplementation with a high-protein diet in order to optimize wound healing potential for this patient. Importance of tight glycemic control was stressed to the patient today. Smoking cessation was discussed with this patient today. Patient was educated on all signs and symptoms of local and systemic infection, and he was instructed to go to the emergency room immediately should he all in any other questions were answered to the patient's satisfaction. Patient will follow-up in clinic in 1 week to check on progress, or sooner if needed.
[2018-07-02 08:11] VITALS: BP 109/89; PULSE 110; RESP 18; TEMP 37.3; BMI 24.6
--- NOTE | 2018-07-02 08:32 | PCM.WC.PN ---
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 (2) Diabetes mellitus type 1 Status: Acute Current Visit: No Code(s): E10.9 - Type 1 diabetes mellitus without complications (3) Pain in right foot Status: Acute Current Visit: No Code(s): M79.671 - Pain in right foot (4) Delayed wound healing Status: Acute Current Visit: No Code(s): T14.8XXD - Other injury of unspecified body region, subsequent encounter Type of Wound Chief Complaint: right plantar foot ulcer History of Wound: This 33-year-old diabetic male presents to the wound healing center for ulcer sub-right fifth metatarsal head. The patient states this started months ago as a blister after walking for an extended period of time in shoes that were not appropriate. He says that after the blister popped, he had been managing the area on his own and he would continue to heal the site and then it would break back down again a few weeks later. He says he had it healed for a while, and then about 1 month ago the area broke back down and has not completely healed since. He says he wanted to have the area evaluated since he is diabetic. He was seen at an urgent care and states that they recently put him on an antibiotic but he is unsure which one this is. He has not kept the area offloaded. He has been dressing the area on his own with Neosporin and a bandage. He denies any purulence, surrounding or extending redness, or increase in warmth. He does relate the area is painful at times. Progress of Wound: Ulcer site improving. Patient has been wearing offloading surgical shoe as well as offloading CAM walker and applying daily dressing changes as instructed with jessica. Patient denies any feelings, of nausea, vomiting, fever, or chills today. - Physical Exam Vital Signs Temp Pulse Resp BP 99.1 F 110 H 18 109/89 H 07/02/18 08:11 07/02/18 08:11 07/02/18 08:11 07/02/18 08:11 General: Alert, Oriented x3, Cooperative, No apparent distress Extremities: Capillary Refill Less than 3 Seconds, No Calf Tenderness - Negative Sean and Sanders sign, Diminished Peripheral Pulses - DP and PT pulses palpable bilateral, Edema - Mild lower extremity edema Skin: Ulcer/ Wound - Ulcer sub-right fifth metatarsal head with fat layer exposed. Slight improvement appreciated again this week. Measurements noted below. The base is mixture of adherent slough, fibrin, annular tissue, as well as some slight surrounding hyperkeratotic tissue. There is no probing to bone, no tracking, no undermining, no purulence, no extending or surrounding cellulitis, and no increase in warmth at this time. Wound Measurements and Assessment WC - Nurse 1 - General Ulcer Measurement Start: 06/18/18 08:11 Freq: Status: Active Protocol: Activity Type Activity Date Activity User E-Sign Co-Sign Detail Recorded Client Recorded Date Recorded By Document 07/02/18 08:11 DV [id number] 07/02/18 08:17 DV 07/02/18 08:11 Wound Center Nurse 1 [Ulcer Assessment] #1- RT PLANTAR FOOT -Combined with other wound No -Current Size (cm) - Length 0.2 -Current Size (cm) - Width 0.4 -Current Size (cm) - Depth 0.1 -Total Square Cm 0.08 -Photo Taken No -Epithelialization None Present -Tunneling No -Undermining/Tunneling No -Circular Undermining No -Classification - Thickness Full Thickness without Exposed Support Structure -Exudate Amt None Present (0 %) -Wound Margin Indistinct, Non -Visible -Granulation Amt None Present (0 %) -Granulation Quality N/A -Slough/Fibrin Yes -Necrosis Amt Small (1-33%) -Necrotic Tissue Type Adherent Slough -Structure Exposed None/Limited to Skin Breakdown -Texture (Yu-wound Skin Appearance) No Abnormality Assessed -Moisture (Yu-wound Skin Appearance No Abnormality ) Assessed -Color (Yu-wound Skin Appearance) No Abnormality Assessed -Temperature (Yu-wound Skin No Abnormality Appearance) (Pt Warm) -Tenderness on Palpation (Yu-wound No Skin Appearance) -Ulcer Cleansing soap -Foul Odor after Cleansing No -Anesthetic Used 4% Lidocaine Solution [Edema Assessment] -Lower Limb Edema Present No WC - Nurse 2 - General Ulcer CM Notes Start: 06/18/18 08:11 Freq: Status: Active Protocol: Activity Type Activity Date Activity User E-Sign Co-Sign Detail Recorded Client Recorded Date Recorded By Document 07/02/18 08:17 DV [id number] 07/02/18 08:30 DV 07/02/18 08:17 Wound Center Nurse 2 [Procedure/Treatment] #1- RT PLANTAR FOOT -Time 08:19 -Correct Patient Yes -Correct Side, Site, Position Yes -Correct Procedure Yes -Procedure Performed Yes -Type of Procedure Debridement -Clinical Debridement Subcutaneous -Post Debridement Size (cm) - Length 0.2 -Post Debridement Size (cm) - Width 0.2 -Post Debridement Size (cm) - Depth 0.1 -Total Square Cm 0.04 -Wound/Ulcer Outcome Not Healed -Ulcer Cleansing Rinsed/ Irrigated with Saline -Foul Odor after Cleansing No -Bioengineered Tissue No -Bleeding Controlled with Pressure -Offloading No -Treatment Response Procedure Tolerated Well [See Physician Procedure note for Specifics] Pain Scale: 0-10 Numeric [Pain] -Is Patient Pain Free? Yes Musculoskeletal: Tenderness - With manipulation of ulcer site Neurological: Sensory exam intact to light touch and pain Psych/Mental Status: Normal Affect, Appropriate Debridement Note Post-Debridement Measurements/Treatment WC - Nurse 2 - General Ulcer CM Notes Start: 06/18/18 08:11 Freq: Status: Active Protocol: Activity Type Activity Date Activity User E-Sign Co-Sign Detail Recorded Client Recorded Date Recorded By Document 06/18/18 08:26 DV [id number] 06/18/18 08:32 DV Document 06/25/18 08:24 DL [id number] 06/25/18 08:30 DL Document 07/02/18 08:17 DV [id number] 07/02/18 08:30 DV 06/18/18 06/25/18 07/02/18 08:26 08:24 08:17 Wound Center Nurse 2 #1- RT PLANTAR FOOT -Time 08:27 08:25 08:19 -Correct Patient Yes Yes Yes -Correct Side, Site, Position Yes Yes Yes -Correct Procedure Yes Yes Yes -Procedure Performed Yes Yes Yes -Type of Procedure Debridement Debridement Debridement -Clinical Debridement Subcutaneous Subcutaneous Subcutaneous -Post Debridement Size (cm) - Length 0.5 0.2 0.2 -Post Debridement Size (cm) - Width 0.5 0.3 0.2 -Post Debridement Size (cm) - Depth 0.2 0.1 0.1 -Total Square Cm 0.25 0.06 0.04 -Wound/Ulcer Outcome Not Healed Not Healed Not Healed -Ulcer Cleansing Rinsed/ Rinsed/ Rinsed/ Irrigated with Irrigated with Irrigated with Saline Saline Saline -Foul Odor after Cleansing No No No -Bioengineered Tissue No No No -Bleeding Controlled with Pressure Pressure Pressure -Offloading No No -Type of Offloading Surgical Shoe -Treatment Response Procedure Procedure Procedure Tolerated Well Tolerated Well Tolerated Well Pain Scale: 0-10 Numeric Is Patient Pain Free? Yes Yes Yes Wound debrided: Right sub-fifth metatarsal head Laterality: Right Type of Debridement: Excisional debridement Anesthesia Used: 4% Lidocaine Solution Depth: in the subcutaneous layer Percentage of wound debrided: 100 Instrument Used: #15 blade Tissue Removed: Adherent slough, fibrin, biofilm, hyperkeratotic tissue Severity: Fat Layer Exposed Amount of bleeding with debridement: Mild Bleeding Controlled with: Pressure Patient tolerated procedure well Assessment/Plan Assessment: Ulcer right sub-fifth met head. DM. Pain right foot Plan: Patient was examined and evaluated again today. A subcutaneous debridement was performed as noted in the clinical panel. Once complete, slightly moistened Jessica was applied to the ulcer base, followed by a dry sterile dressing and a Tubigrip for compression. Patient is to have the dressing changed in this manner and on a daily basis. The importance of offloading the ulcer site was discussed at great length again today and the patient says he has been doing well wearing his offloading surgical shoe as well as offloading CAM walker. I recommended nutritional supplementation with a high-protein diet in order to optimize wound healing potential for this patient. Importance of tight glycemic control was stressed to the patient today. Smoking cessation was discussed with this patient today. Patient was instructed to be better about wearing offloading CAM walker due to continued surrounding hyperkeratotic build up each week. Patient was educated on all signs and symptoms of local and systemic infection, and he was instructed to go to the emergency room immediately should he all in any other questions were answered to the patient's satisfaction. Patient will follow-up in clinic in 1 week to check on progress, or sooner if needed.
--- NOTE | 2018-07-02 08:36 | PN.PCM_ITS ---
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 (2) Diabetes mellitus type 1 Status: Acute Current Visit: No Code(s): E10.9 - Type 1 diabetes mellitus without complications (3) Pain in right foot Status: Acute Current Visit: No Code(s): M79.671 - Pain in right foot (4) Delayed wound healing Status: Acute Current Visit: No Code(s): T14.8XXD - Other injury of unspecified body region, subsequent encounter Type of Wound Chief Complaint: right plantar foot ulcer History of Wound: This 33-year-old diabetic male presents to the wound healing center for ulcer sub-right fifth metatarsal head. The patient states this started months ago as a blister after walking for an extended period of time in shoes that were not appropriate. He says that after the blister popped, he had been managing the area on his own and he would continue to heal the site and then it would break back down again a few weeks later. He says he had it healed for a while, and then about 1 month ago the area broke back down and has not completely healed since. He says he wanted to have the area evaluated since he is diabetic. He was seen at an urgent care and states that they recently put him on an antibiotic but he is unsure which one this is. He has not kept the area offloaded. He has been dressing the area on his own with Neosporin and a bandage. He denies any purulence, surrounding or extending redness, or increase in warmth. He does relate the area is painful at times. Progress of Wound: Ulcer site improving. Patient has been wearing offloading surgical shoe as well as offloading CAM walker and applying daily dressing changes as instructed with darío. Patient denies any feelings, of nausea, vomiting, fever, or chills today. - Physical Exam Vital Signs Temp Pulse Resp BP 99.1 F 110 H 18 109/89 H 07/02/18 08:11 07/02/18 08:11 07/02/18 08:11 07/02/18 08:11 General: Alert, Oriented x3, Cooperative, No apparent distress Extremities: Capillary Refill Less than 3 Seconds, No Calf Tenderness - Negative Sean and Sanders sign, Diminished Peripheral Pulses - DP and PT pulses palpable bilateral, Edema - Mild lower extremity edema Skin: Ulcer/ Wound - Ulcer sub-right fifth metatarsal head with fat layer exposed. Slight improvement appreciated again this week. Measurements noted below. The base is mixture of adherent slough, fibrin, annular tissue, as well as some slight surrounding hyperkeratotic tissue. There is no probing to bone, no tracking, no undermining, no purulence, no extending or surrounding cellulitis, and no increase in warmth at this time. Wound Measurements and Assessment WC - Nurse 1 - General Ulcer Measurement Start: 06/18/18 08:11 Freq: Status: Active Protocol: Activity Type Activity Date Activity User E-Sign Co-Sign Detail Recorded Client Recorded Date Recorded By Document 07/02/18 08:11 DV [id number] 07/02/18 08:17 DV 07/02/18 08:11 Wound Center Nurse 1 [Ulcer Assessment] #1- RT PLANTAR FOOT -Combined with other wound No -Current Size (cm) - Length 0.2 -Current Size (cm) - Width 0.4 -Current Size (cm) - Depth 0.1 -Total Square Cm 0.08 -Photo Taken No -Epithelialization None Present -Tunneling No -Undermining/Tunneling No -Circular Undermining No -Classification - Thickness Full Thickness without Exposed Support Structure -Exudate Amt None Present (0 %) -Wound Margin Indistinct, Non -Visible -Granulation Amt None Present (0 %) -Granulation Quality N/A -Slough/Fibrin Yes -Necrosis Amt Small (1-33%) -Necrotic Tissue Type Adherent Slough -Structure Exposed None/Limited to Skin Breakdown -Texture (Yu-wound Skin Appearance) No Abnormality Assessed -Moisture (Yu-wound Skin Appearance No Abnormality ) Assessed -Color (Yu-wound Skin Appearance) No Abnormality Assessed -Temperature (Yu-wound Skin No Abnormality Appearance) (Pt Warm) -Tenderness on Palpation (Yu-wound No Skin Appearance) -Ulcer Cleansing soap -Foul Odor after Cleansing No -Anesthetic Used 4% Lidocaine Solution [Edema Assessment] -Lower Limb Edema Present No WC - Nurse 2 - General Ulcer CM Notes Start: 06/18/18 08:11 Freq: Status: Active Protocol: Activity Type Activity Date Activity User E-Sign Co-Sign Detail Recorded Client Recorded Date Recorded By Document 07/02/18 08:17 DV [id number] 07/02/18 08:30 DV 07/02/18 08:17 Wound Center Nurse 2 [Procedure/Treatment] #1- RT PLANTAR FOOT -Time 08:19 -Correct Patient Yes -Correct Side, Site, Position Yes -Correct Procedure Yes -Procedure Performed Yes -Type of Procedure Debridement -Clinical Debridement Subcutaneous -Post Debridement Size (cm) - Length 0.2 -Post Debridement Size (cm) - Width 0.2 -Post Debridement Size (cm) - Depth 0.1 -Total Square Cm 0.04 -Wound/Ulcer Outcome Not Healed -Ulcer Cleansing Rinsed/ Irrigated with Saline -Foul Odor after Cleansing No -Bioengineered Tissue No -Bleeding Controlled with Pressure -Offloading No -Treatment Response Procedure Tolerated Well [See Physician Procedure note for Specifics] Pain Scale: 0-10 Numeric [Pain] -Is Patient Pain Free? Yes Musculoskeletal: Tenderness - With manipulation of ulcer site Neurological: Sensory exam intact to light touch and pain Psych/Mental Status: Normal Affect, Appropriate Debridement Note Post-Debridement Measurements/Treatment WC - Nurse 2 - General Ulcer CM Notes Start: 06/18/18 08:11 Freq: Status: Active Protocol: Activity Type Activity Date Activity User E-Sign Co-Sign Detail Recorded Client Recorded Date Recorded By Document 06/18/18 08:26 DV [id number] 06/18/18 08:32 DV Document 06/25/18 08:24 DL [id number] 06/25/18 08:30 DL Document 07/02/18 08:17 DV [id number] 07/02/18 08:30 DV 06/18/18 06/25/18 07/02/18 08:26 08:24 08:17 Wound Center Nurse 2 #1- RT PLANTAR FOOT -Time 08:27 08:25 08:19 -Correct Patient Yes Yes Yes -Correct Side, Site, Position Yes Yes Yes -Correct Procedure Yes Yes Yes -Procedure Performed Yes Yes Yes -Type of Procedure Debridement Debridement Debridement -Clinical Debridement Subcutaneous Subcutaneous Subcutaneous -Post Debridement Size (cm) - Length 0.5 0.2 0.2 -Post Debridement Size (cm) - Width 0.5 0.3 0.2 -Post Debridement Size (cm) - Depth 0.2 0.1 0.1 -Total Square Cm 0.25 0.06 0.04 -Wound/Ulcer Outcome Not Healed Not Healed Not Healed -Ulcer Cleansing Rinsed/ Rinsed/ Rinsed/ Irrigated with Irrigated with Irrigated with Saline Saline Saline -Foul Odor after Cleansing No No No -Bioengineered Tissue No No No -Bleeding Controlled with Pressure Pressure Pressure -Offloading No No -Type of Offloading Surgical Shoe -Treatment Response Procedure Procedure Procedure Tolerated Well Tolerated Well Tolerated Well Pain Scale: 0-10 Numeric Is Patient Pain Free? Yes Yes Yes Wound debrided: Right sub-fifth metatarsal head Laterality: Right Type of Debridement: Excisional debridement Anesthesia Used: 4% Lidocaine Solution Depth: in the subcutaneous layer Percentage of wound debrided: 100 Instrument Used: #15 blade Tissue Removed: Adherent slough, fibrin, biofilm, hyperkeratotic tissue Severity: Fat Layer Exposed Amount of bleeding with debridement: Mild Bleeding Controlled with: Pressure Patient tolerated procedure well Assessment/Plan Assessment: Ulcer right sub-fifth met head. DM. Pain right foot Plan: Patient was examined and evaluated again today. A subcutaneous debridement was performed as noted in the clinical panel. Once complete, slightly moistened Darío was applied to the ulcer base, followed by a dry sterile dressing and a Tubigrip for compression. Patient is to have the dressing changed in this manner and on a daily basis. The importance of offloading the ulcer site was discussed at great length again today and the patient says he has been doing well wearing his offloading surgical shoe as well as offloading CAM walker. I recommended nutritional supplementation with a high-protein diet in order to optimize wound healing potential for this patient. Importance of tight glycemic control was stressed to the patient today. Smoking cessation was discussed with this patient today. Patient was instructed to be better about wearing offloading CAM walker due to continued surrounding hyperkeratotic build up each week. Patient was educated on all signs and symptoms of local and systemic infection, and he was instructed to go to the emergency room immediately should he all in any other questions were answered to the patient's satisfaction. Patient will follow-up in clinic in 1 week to [place] on progress, or sooner if needed.
[2018-07-09 08:22] VITALS: BP 115/73; PULSE 108; RESP 18; TEMP 37.2; BMI 24.6
--- NOTE | 2018-07-09 09:03 | PCM.WC.PN ---
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 (2) Diabetes mellitus type 1 Status: Acute Current Visit: No Code(s): E10.9 - Type 1 diabetes mellitus without complications (3) Pain in right foot Status: Acute Current Visit: No Code(s): M79.671 - Pain in right foot (4) Delayed wound healing Status: Acute Current Visit: No Code(s): T14.8XXD - Other injury of unspecified body region, subsequent encounter Type of Wound Chief Complaint: right plantar foot ulcer History of Wound: This 33-year-old diabetic male presents to the wound healing center for ulcer sub-right fifth metatarsal head. The patient states this started months ago as a blister after walking for an extended period of time in shoes that were not appropriate. He says that after the blister popped, he had been managing the area on his own and he would continue to heal the site and then it would break back down again a few weeks later. He says he had it healed for a while, and then about 1 month ago the area broke back down and has not completely healed since. He says he wanted to have the area evaluated since he is diabetic. He was seen at an urgent care and states that they recently put him on an antibiotic but he is unsure which one this is. He has not kept the area offloaded. He has been dressing the area on his own with Neosporin and a bandage. He denies any purulence, surrounding or extending redness, or increase in warmth. He does relate the area is painful at times. Progress of Wound: Ulcer site healed today. Patient has been wearing offloading surgical shoe as well as offloading CAM walker and applying daily dressing changes as instructed with darío. Patient denies any feelings, of nausea, vomiting, fever, or chills today. - Physical Exam Vital Signs Temp Pulse Resp BP 99 F 108 H 18 115/73 07/09/18 08:22 07/09/18 08:22 07/09/18 08:22 07/09/18 08:22 General: Alert, Oriented x3, Cooperative, No apparent distress Extremities: Capillary Refill Less than 3 Seconds, No Calf Tenderness, Peripheral Pulses Normal Skin: Ulcer/ Wound - Ulcer site healed today with no signs of infection noted Wound Measurements and Assessment WC - Nurse 1 - General Ulcer Measurement Start: 06/18/18 08:11 Freq: Status: Active Protocol: Activity Type Activity Date Activity User E-Sign Co-Sign Detail Recorded Client Recorded Date Recorded By Document 07/09/18 08:22 RB [id number] 07/09/18 08:25 RB 07/09/18 08:22 Wound Center Nurse 1 [Ulcer Assessment] #1- RT PLANTAR FOOT -Combined with other wound No -Current Size (cm) - Length 0 -Current Size (cm) - Width 0 -Current Size (cm) - Depth 0 -Total Square Cm 0 -Photo Taken Yes -Epithelialization Large 67-100% -Tunneling No -Undermining/Tunneling No -Circular Undermining No -Exudate Amt None Present (0 %) -Wound Margin Distinct, Outline Attached -Granulation Amt Large (67-100%) -Granulation Quality [place] -Slough/Fibrin Yes -Necrosis Amt Small (1-33%) -Necrotic Tissue Type Adherent Slough -Structure Exposed N/A -Texture (Yu-wound Skin Appearance) Assessed -Moisture (Yu-wound Skin Appearance Assessed ) -Color (Yu-wound Skin Appearance) Assessed -Temperature (Yu-wound Skin No Abnormality Appearance) (Pt Warm) -Tenderness on Palpation (Yu-wound No Skin Appearance) -Ulcer Cleansing Rinsed/ Irrigated with Saline -Foul Odor after Cleansing No Neurological: Sensory exam intact to light touch and pain Psych/Mental Status: Normal Affect, Appropriate Debridement Note Post-Debridement Measurements/Treatment WC - Nurse 2 - General Ulcer CM Notes Start: 06/18/18 08:11 Freq: Status: Active Protocol: Activity Type Activity Date Activity User E-Sign Co-Sign Detail Recorded Client Recorded Date Recorded By Document 06/18/18 08:26 DV [id number] 06/18/18 08:32 DV Document 06/25/18 08:24 DL [id number] 06/25/18 08:30 DL Document 07/02/18 08:17 DV [id number] 07/02/18 08:30 DV 06/18/18 06/25/18 07/02/18 08:26 08:24 08:17 Wound Center Nurse 2 #1- RT PLANTAR FOOT -Time 08: 08:25 08:19 -Correct Patient Yes Yes Yes -Correct Side, Site, Position Yes Yes Yes -Correct Procedure Yes Yes Yes -Procedure Performed Yes Yes Yes -Type of Procedure Debridement Debridement Debridement -Clinical Debridement Subcutaneous Subcutaneous Subcutaneous -Post Debridement Size (cm) - Length 0.5 0.2 0.2 -Post Debridement Size (cm) - Width 0.5 0.3 0.2 -Post Debridement Size (cm) - Depth 0.2 0.1 0.1 -Total Square Cm 0.25 0.06 0.04 -Wound/Ulcer Outcome Not Healed Not Healed Not Healed -Ulcer Cleansing Rinsed/ Rinsed/ Rinsed/ Irrigated with Irrigated with Irrigated with Saline Saline Saline -Foul Odor after Cleansing No No No -Bioengineered Tissue No No No -Bleeding Controlled with Pressure Pressure Pressure -Offloading No No -Type of Offloading Surgical Shoe -Treatment Response Procedure Procedure Procedure Tolerated Well Tolerated Well Tolerated Well Pain Scale: 0-10 Numeric Is Patient Pain Free? Yes Yes Yes No debridement was completed today Assessment/Plan Assessment: Ulcer right sub-fifth met head. DM. Pain right foot Plan: Patient was examined and evaluated again today. No debridement was performed as noted in the clinical panel. Since the ulcer site is healed, the patient was instructed to continue with offloading the ulcer site for the next couple of weeks while the skin continues to strenghten and remodel. The importance of continued offloading was discussed at great length again today and the patient says he has been doing well wearing his offloading surgical shoe as well as offloading CAM walker. I recommended nutritional supplementation with a high-protein diet in order to optimize wound healing potential for this patient. Importance of tight glycemic control was stressed to the patient today. Smoking cessation was discussed with this patient today. 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 Patient was educated on all signs and symptoms of local and systemic infection, and he was instructed to go to the emergency room immediately should he all in any other questions were answered to the patient's satisfaction. Patient will follow-up in clinic in 1 week to check on progress, or sooner if needed.
--- NOTE | 2018-07-09 09:07 | PN.PCM_ITS ---
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 (2) Diabetes mellitus type 1 Status: Acute Current Visit: No Code(s): E10.9 - Type 1 diabetes mellitus without complications (3) Pain in right foot Status: Acute Current Visit: No Code(s): M79.671 - Pain in right foot (4) Delayed wound healing Status: Acute Current Visit: No Code(s): T14.8XXD - Other injury of unspecified body region, subsequent encounter Type of Wound Chief Complaint: right plantar foot ulcer History of Wound: This 33-year-old diabetic male presents to the wound healing center for ulcer sub-right fifth metatarsal head. The patient states this started months ago as a blister after walking for an extended period of time in shoes that were not appropriate. He says that after the blister popped, he had been managing the area on his own and he would continue to heal the site and then it would break back down again a few weeks later. He says he had it healed for a while, and then about 1 month ago the area broke back down and has not completely healed since. He says he wanted to have the area evaluated since he is diabetic. He was seen at an urgent care and states that they recently put him on an antibiotic but he is unsure which one this is. He has not kept the area offloaded. He has been dressing the area on his own with Neosporin and a bandage. He denies any purulence, surrounding or extending redness, or increase in warmth. He does relate the area is painful at times. Progress of Wound: Ulcer site healed today. Patient has been wearing offloading surgical shoe as well as offloading CAM walker and applying daily dressing changes as instructed with darío. Patient denies any feelings, of nausea, vomiting, fever, or chills today. - Physical Exam Vital Signs Temp Pulse Resp BP 99 F 108 H 18 115/73 07/09/18 08:22 07/09/18 08:22 07/09/18 08:22 07/09/18 08:22 General: Alert, Oriented x3, Cooperative, No apparent distress Extremities: Capillary Refill Less than 3 Seconds, No Calf Tenderness, Peripheral Pulses Normal Skin: Ulcer/ Wound - Ulcer site healed today with no signs of infection noted Wound Measurements and Assessment WC - Nurse 1 - General Ulcer Measurement Start: 06/18/18 08:11 Freq: Status: Active Protocol: Activity Type Activity Date Activity User E-Sign Co-Sign Detail Recorded Client Recorded Date Recorded By Document 07/09/18 08:22 RB [id number] 07/09/18 08:25 RB 07/09/18 08:22 Wound Center Nurse 1 [Ulcer Assessment] #1- RT PLANTAR FOOT -Combined with other wound No -Current Size (cm) - Length 0 -Current Size (cm) - Width 0 -Current Size (cm) - Depth 0 -Total Square Cm 0 -Photo Taken Yes -Epithelialization Large 67-100% -Tunneling No -Undermining/Tunneling No -Circular Undermining No -Exudate Amt None Present (0 %) -Wound Margin Distinct, Outline Attached -Granulation Amt Large (67-100%) -Granulation Quality [place] -Slough/Fibrin Yes -Necrosis Amt Small (1-33%) -Necrotic Tissue Type Adherent Slough -Structure Exposed N/A -Texture (Yu-wound Skin Appearance) Assessed -Moisture (Yu-wound Skin Appearance Assessed ) -Color (Yu-wound Skin Appearance) Assessed -Temperature (Yu-wound Skin No Abnormality Appearance) (Pt Warm) -Tenderness on Palpation (Yu-wound No Skin Appearance) -Ulcer Cleansing Rinsed/ Irrigated with Saline -Foul Odor after Cleansing No Neurological: Sensory exam intact to light touch and pain Psych/Mental Status: Normal Affect, Appropriate Debridement Note Post-Debridement Measurements/Treatment WC - Nurse 2 - General Ulcer CM Notes Start: 06/18/18 08:11 Freq: Status: Active Protocol: Activity Type Activity Date Activity User E-Sign Co-Sign Detail Recorded Client Recorded Date Recorded By Document 06/18/18 08:26 DV [id number] 06/18/18 08:32 DV Document 06/25/18 08:24 DL [id number] 06/25/18 08:30 DL Document 07/02/18 08:17 DV [id number] 07/02/18 08:30 DV 06/18/18 06/25/18 07/02/18 08:26 08:24 08:17 Wound Center Nurse 2 #1- RT PLANTAR FOOT -Time 08: 08:25 08:19 -Correct Patient Yes Yes Yes -Correct Side, Site, Position Yes Yes Yes -Correct Procedure Yes Yes Yes -Procedure Performed Yes Yes Yes -Type of Procedure Debridement Debridement Debridement -Clinical Debridement Subcutaneous Subcutaneous Subcutaneous -Post Debridement Size (cm) - Length 0.5 0.2 0.2 -Post Debridement Size (cm) - Width 0.5 0.3 0.2 -Post Debridement Size (cm) - Depth 0.2 0.1 0.1 -Total Square Cm 0.25 0.06 0.04 -Wound/Ulcer Outcome Not Healed Not Healed Not Healed -Ulcer Cleansing Rinsed/ Rinsed/ Rinsed/ Irrigated with Irrigated with Irrigated with Saline Saline Saline -Foul Odor after Cleansing No No No -Bioengineered Tissue No No No -Bleeding Controlled with Pressure Pressure Pressure -Offloading No No -Type of Offloading Surgical Shoe -Treatment Response Procedure Procedure Procedure Tolerated Well Tolerated Well Tolerated Well Pain Scale: 0-10 Numeric Is Patient Pain Free? Yes Yes Yes No debridement was completed today Assessment/Plan Assessment: Ulcer right sub-fifth met head. DM. Pain right foot Plan: Patient was examined and evaluated again today. No debridement was performed as noted in the clinical panel. Since the ulcer site is healed, the patient was instructed to continue with offloading the ulcer site for the next couple of weeks while the skin continues to strenghten and remodel. The importance of continued offloading was discussed at great length again today and the patient says he has been doing well wearing his offloading surgical shoe as well as offloading CAM walker. I recommended nutritional supplementation with a high-protein diet in order to optimize wound healing potential for this patient. Importance of tight glycemic control was stressed to the patient today. Smoking cessation was discussed with this patient today. 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 Patient was educated on all signs and symptoms of local and systemic infection, and he was instructed to go to the emergency room immediately should he all in any other questions were answered to the patient's satisfaction. Patient will follow-up in clinic in 1 week to check on progress, or sooner if needed.
== END 2018-07-13 23:59 ==
LOC: WC 08:00
PROVIDERS: Family Provider Internal Medicine; PCP Internal Medicine; Visit Provider Podiatrist
DX: E10.621 Type 1 diabetes mellitus with foot ulcer (principal); L97.512 Non-pressure chronic ulcer of other part of right foot with fat layer exposed; M79.671 Pain in right foot; R60.0 Localized edema
CPT/HCPCS: 11042; 99213; G0463

== ENCOUNTER 2018-08-13 08:15 | Outpatient (RCR) | payer MEDICAID, SELFPAY ==
[2018-07-14 01:18] VITALS: BP 115/73; PULSE 108; RESP 18; TEMP 37.2
[2018-07-30 10:02] VITALS: BP 108/73; PULSE 94; RESP 18; TEMP 37.1; BMI 24.6
--- NOTE | 2018-07-30 11:43 | RAD_ITS ---
STUDY: X-RAY - RIGHT FOOT CLINICAL: Male, 33 years old. Diabetic patient with right-sided plantar ulcer for one week. TECHNIQUE: 3 view(s) of the foot. COMPARISON: None. FINDINGS: There are no significant degenerative features of the foot and there is no evidence of osteomyelitis. The reported plantar ulcer is not visible. There is no superficial or deep soft tissue gas and there is no radiodense foreign body. Preserved arch of the foot. RAD/Foot min 3 Views IMPRESSION: Normal x-ray examination of the foot. The reported ulcer is not visible. There are no features of osteomyelitis. Electronically Signed: Neil Bolton MD at 17:52 EST Tel , Service support ,
--- NOTE | 2018-07-30 12:06 | PCM.WC.PN ---
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 (2) Diabetes mellitus type 1 Status: Acute Current Visit: No Code(s): E10.9 - Type 1 diabetes mellitus without complications (3) Pain in right foot Status: Acute Current Visit: No Code(s): M79.671 - Pain in right foot (4) Delayed wound healing Status: Acute Current Visit: No Code(s): T14.8XXD - Other injury of unspecified body region, subsequent encounter Type of Wound Chief Complaint: right plantar foot ulcer History of Wound: This 33-year-old diabetic male presents to the wound healing center for ulcer sub-right fifth metatarsal head that he states re-opened after stepping on one of his kids toys a little over a week ago. He says he tried to use old jessica and keep the area offloaded, but he says he was not noticing any improvement and wanted to have the area evaluated in clinic again before it got any worse. He relates that he was walking barefoot at the time of injury. He also says he failed to make an appointment as instructed at his previous discharge in order to be measured for a pair of offloading diabetic shoes. He denies any purulence, surrounding or extending redness, or increase in warmth. He does relate the area is painful at times. Progress of Wound: Re-opened ulcer sub right 5th met head again today. Patient has been wearing offloading surgical shoe as well as offloading CAM walker and applying daily dressing changes as instructed with jessica. Patient denies any feelings, of nausea, vomiting, fever, or chills today. - Physical Exam Vital Signs Temp Pulse Resp BP 98.7 F 94 18 108/73 07/30/18 10:02 07/30/18 10:02 07/30/18 10:02 07/30/18 10:02 General: Alert, Oriented x3, Cooperative, No apparent distress Extremities: Capillary Refill Less than 3 Seconds, No Calf Tenderness, Diminished Peripheral Pulses - Negative Sean and Sanders sign DP and PT pulses palpable bilateral, Edema - Mild lower extremity edema Skin: Ulcer/ Wound - Ulcer sub-right fifth met head with fat layer exposed. Measurements are noted below. The base is noted to be a mixture of adherent slough, fibrin, granular tissue, as well as some slight surrounding hyperkeratotic tissue. There is no probing to bone, no tracking, no undermining, no purulence, no extending or surrounding cellulitis, and no significant increase in warmth at this time. Wound Measurements and Assessment - Nurse 1 - General Ulcer Measurement Start: 07/30/18 09:59 Freq: Status: Active Protocol: Activity Type Activity Date Activity User E-Sign Co-Sign Detail Recorded Client Recorded Date Recorded By Document 07/30/18 10:02 [id number] 07/30/18 10:06 CS 07/30/18 10:02 Wound Center Nurse 1 [Ulcer Assessment] #2 right plantar foot -Combined with other wound No -Current Size (cm) - Length 0.1 -Current Size (cm) - Width 0.1 -Current Size (cm) - Depth 0.1 -Total Square Cm 0.01 -Date of Last Picture (Recall this 07/30/18 field) -Photo Taken Yes -Epithelialization None Present -Tunneling No -Undermining/Tunneling No -Circular Undermining No -Exudate Amt None Present -Wound Margin Distinct, Outline Attached -Granulation Amt None Present (0 %) -Granulation Quality N/A -Slough/Fibrin No -Necrosis Amt Large (67-100%) -Necrotic Tissue Type Eschar -Structure Exposed None/Limited to Skin Breakdown -Texture (Yu-wound Skin Appearance) Callus -Moisture (Yu-wound Skin Appearance No Abnormality ) Assessed -Color (Yu-wound Skin Appearance) No Abnormality Assessed -Temperature (Yu-wound Skin No Abnormality Appearance) (Pt Warm) -Tenderness on Palpation (Yu-wound No Skin Appearance) -Ulcer Cleansing Rinsed/ Irrigated with Saline -Foul Odor after Cleansing No -Anesthetic Used 4% Lidocaine Solution - Nurse 2 - General Ulcer CM Notes Start: 07/30/18 09:59 Freq: Status: Active Protocol: Activity Type Activity Date Activity User E-Sign Co-Sign Detail Recorded Client Recorded Date Recorded By Document 07/30/18 10:45 DV [id number] 07/30/18 10:51 DV 07/30/18 10:45 Wound Center Nurse 2 [Procedure/Treatment] -Time 10:46 -Correct Patient Yes -Correct Side, Site, Position Yes -Correct Procedure Yes -Procedure Performed Yes -Type of Procedure Debridement -Clinical Debridement Subcutaneous -Post Debridement Size (cm) - Length 0.6 -Post Debridement Size (cm) - Width 0.8 -Post Debridement Size (cm) - Depth 0.3 -Total Square Cm 0.48 -Wound/Ulcer Outcome Not Healed -Ulcer Cleansing Rinsed/ Irrigated with Saline -Foul Odor after Cleansing No -Bioengineered Tissue No -Bleeding Controlled with Pressure -Offloading Yes -Type of Offloading Surgical Shoe -Treatment Response Procedure Tolerated Well [See Physician Procedure note for Specifics] Pain Scale: 0-10 Numeric [Pain] -Is Patient Pain Free? Yes Musculoskeletal: Tenderness - With manipulation of ulcer site Neurological: Sensory exam intact to light touch and pain, - - Patient does have some slight altered protective sensation to the foot Psych/Mental Status: Normal Affect, Appropriate Debridement Note Post-Debridement Measurements/Treatment WC - Nurse 2 - General Ulcer CM Notes Start: 07/30/18 09:59 Freq: Status: Active Protocol: Activity Type Activity Date Activity User E-Sign Co-Sign Detail Recorded Client Recorded Date Recorded By Document 07/30/18 10:45 DV [id number] 07/30/18 10:51 DV 07/30/18 10:45 Wound Center Nurse 2 #2 right plantar foot -Time 10:46 -Correct Patient Yes -Correct Side, Site, Position Yes -Correct Procedure Yes -Procedure Performed Yes -Type of Procedure Debridement -Clinical Debridement Subcutaneous -Post Debridement Size (cm) - Length 0.6 -Post Debridement Size (cm) - Width 0.8 -Post Debridement Size (cm) - Depth 0.3 -Total Square Cm 0.48 -Wound/Ulcer Outcome Not Healed -Ulcer Cleansing Rinsed/ Irrigated with Saline -Foul Odor after Cleansing No -Bioengineered Tissue No -Bleeding Controlled with Pressure -Offloading Yes -Type of Offloading Surgical Shoe -Treatment Response Procedure Tolerated Well Pain Scale: 0-10 Numeric Is Patient Pain Free? Yes Wound debrided: Right subphrenic metatarsal head Laterality: Right Type of Debridement: Excisional debridement Anesthesia Used: 4% Lidocaine Solution Depth: in the subcutaneous layer Percentage of wound debrided: 100 Instrument Used: #15 blade, - - Tissue nipper Tissue Removed: Adherent slough, fibrin, biofilm, hyperkeratotic tissue Severity: Fat Layer Exposed Amount of bleeding with debridement: Mild Bleeding Controlled with: Pressure Patient tolerated procedure well Assessment/Plan Assessment: Ulcer right sub-fifth met head. DM. Pain right foot Plan: Patient was examined and evaluated again today after recurrence of ulcer sub 5th met head. Subcutaneous debridement was performed as noted in the clinical panel. Once complete, the ulcer site was carefully cleansed and then dressed with slightly moistened Jessica to the base followed by dry sterile dressing. The patient was instructed to continue with offloading the ulcer site with the assistance of the surgical shoe with offloading insert. The importance of continued offloading was discussed at great length again today and the patient says he has been doing well wearing his offloading surgical shoe as well as offloading CAM walker. He is to continue with offloading Cam walker as well as the offloading surgical shoe. I recommended nutritional supplementation with a high-protein diet in order to optimize wound healing potential for this patient. Importance of tight glycemic control was stressed to the patient today. Smoking cessation was discussed with this patient today. 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 Patient was started on 10-day prescription for doxycycline today. Cultures were taken and sent for aerobic, anaerobic, and MRSA PCR evaluation. Patient was informed that his antibiotic may need to be changed in the future pending culture results. 3 view x-ray of the foot was ordered as well. We will continue to monitor for these results. Patient was educated on all signs and symptoms of local and systemic infection, and he was instructed to go to the emergency room immediately should he all in any other questions were answered to the patient's satisfaction. Patient will follow-up in clinic in 1 week to check on progress, or sooner if needed.
--- NOTE | 2018-07-30 12:10 | PN.PCM_ITS ---
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 (2) Diabetes mellitus type 1 Status: Acute Current Visit: No Code(s): E10.9 - Type 1 diabetes mellitus without complications (3) Pain in right foot Status: Acute Current Visit: No Code(s): M79.671 - Pain in right foot (4) Delayed wound healing Status: Acute Current Visit: No Code(s): T14.8XXD - Other injury of unspecified body region, subsequent encounter Type of Wound Chief Complaint: right plantar foot ulcer History of Wound: This 33-year-old diabetic male presents to the wound healing center for ulcer sub-right fifth metatarsal head that he states re-opened after stepping on one of his kids toys a little over a week ago. He says he tried to use old jessica and keep the area offloaded, but he says he was not noticing any improvement and wanted to have the area evaluated in clinic again before it got any worse. He relates that he was walking barefoot at the time of injury. He also says he failed to make an appointment as instructed at his previous d ischarge in order to be measured for a pair of offloading diabetic shoes. He denies any purulence, surrounding or extending redness, or increase in warmth. He does relate the area is painful at times. Progress of Wound: Re-opened ulcer sub right 5th met head again today. Patient has been wearing offloading surgical shoe as well as offloading CAM walker and applying daily dressing changes as instructed with jessica. Patient denies any feelings, of nausea, vomiting, fever, or chills today. - Physical Exam Vital Signs Temp Pulse Resp BP 98.7 F 94 18 108/73 07/30/18 10:02 07/30/18 10:02 07/30/18 10:02 07/30/18 10:02 General: Alert, Oriented x3, Cooperative, No apparent distress Extremities: Capillary Refill Less than 3 Seconds, No Calf Tenderness, Diminished Peripheral Pulses - Negative Sean and Sanders sign DP and PT pulses palpable bilateral, Edema - Mild lower extremity edema Skin: Ulcer/ Wound - Ulcer sub-right fifth met head with fat layer exposed. Measurements are noted below. The base is noted to be a mixture of adherent slough, fibrin, granular tissue, as well as some slight surrounding hyperkeratotic tissue. There is no probing to bone, no tracking, no undermining, no purulence, no extending or surrounding cellulitis, and no significant increase in warmth at this time. Wound Measurements and Assessment WC - Nurse 1 - General Ulcer Measurement Start: 07/30/18 09:59 Freq: Status: Active Protocol: Activity Type Activity Date Activity User E-Sign Co-Sign Detail Recorded Client Recorded Date Recorded By Document 07/30/18 10:02 [id number] 07/30/18 10:06 CS 07/30/18 10:02 Wound Center Nurse 1 [Ulcer Assessment] #2 right plantar foot -Combined with other wound No -Current Size (cm) - Length 0.1 -Current Size (cm) - Width 0.1 -Current Size (cm) - Depth 0.1 -Total Square Cm 0.01 -Date of Last Picture (Recall this 07/30/18 field) -Photo Taken Yes -Epithelialization None Present -Tunneling No -Undermining/Tunneling No -Circular Undermining No -Exudate Amt None Present -Wound Margin Distinct, Outline Attached -Granulation Amt None Present (0 %) -Granulation Quality N/A -Slough/Fibrin No -Necrosis Amt Large (67-100%) -Necrotic Tissue Type Eschar -Structure Exposed None/Limited to Skin Breakdown -Texture (Yu-wound Skin Appearance) Callus -Moisture (Yu-wound Skin Appearance No Abnormality ) Assessed -Color (Yu-wound Skin Appearance) No Abnormality Assessed -Temperature (Yu-wound Skin No Abnormality Appearance) (Pt Warm) -Tenderness on Palpation (Yu-wound No Skin Appearance) -Ulcer Cleansing Rinsed/ Irrigated with Saline -Foul Odor after Cleansing No -Anesthetic Used 4% Lidocaine Solution - Nurse 2 - General Ulcer CM Notes Start: 07/30/18 09:59 Freq: Status: Active Protocol: Activity Type Activity Date Activity User E-Sign Co-Sign Detail Recorded Client Recorded Date Recorded By Document 07/30/18 10:45 DV [id number] 07/30/18 10:51 DV 07/30/18 10:45 Wound Center Nurse 2 [Procedure/Treatment] -Time 10:46 -Correct Patient Yes -Correct Side, Site, Position Yes -Correct Procedure Yes -Procedure Performed Yes -Type of Procedure Debridement -Clinical Debridement Subcutaneous -Post Debridement Size (cm) - Length 0.6 -Post Debridement Size (cm) - Width 0.8 -Post Debridement Size (cm) - Depth 0.3 -Total Square Cm 0.48 -Wound/Ulcer Outcome Not Healed -Ulcer Cleansing Rinsed/ Irrigated with Saline -Foul Odor after Cleansing No -Bioengineered Tissue No -Bleeding Controlled with Pressure -Offloading Yes -Type of Offloading Surgical Shoe -Treatment Response Procedure Tolerated Well [See Physician Procedure note for Specifics] Pain Scale: 0-10 Numeric [Pain] -Is Patient Pain Free? Yes Musculoskeletal: Tenderness - With manipulation of ulcer site Neurological: Sensory exam intact to light touch and pain, - - Patient does have some slight altered protective sensation to the foot Psych/Mental Status: Normal Affect, Appropriate Debridement Note Post-Debridement Measurements/Treatment WC - Nurse 2 - General Ulcer CM Notes Start: 07/30/18 09:59 Freq: Status: Active Protocol: Activity Type Activity Date Activity User E-Sign Co-Sign Detail Recorded Client Recorded Date Recorded By Document 07/30/18 10:45 DV [id number] 07/30/18 10:51 DV 07/30/18 10:45 Wound Center Nurse 2 #2 right plantar foot -Time 10:46 -Correct Patient Yes -Correct Side, Site, Position Yes -Correct Procedure Yes -Procedure Performed Yes -Type of Procedure Debridement -Clinical Debridement Subcutaneous -Post Debridement Size (cm) - Length 0.6 -Post Debridement Size (cm) - Width 0.8 -Post Debridement Size (cm) - Depth 0.3 -Total Square Cm 0.48 -Wound/Ulcer Outcome Not Healed -Ulcer Cleansing Rinsed/ Irrigated with Saline -Foul Odor after Cleansing No -Bioengineered Tissue No -Bleeding Controlled with Pressure -Offloading Yes -Type of Offloading Surgical Shoe -Treatment Response Procedure Tolerated Well Pain Scale: 0-10 Numeric Is Patient Pain Free? Yes Wound debrided: Right subphrenic metatarsal head Laterality: Right Type of Debridement: Excisional debridement Anesthesia Used: 4% Lidocaine Solution Depth: in the subcutaneous layer Percentage of wound debrided: 100 Instrument Used: #15 blade, - - Tissue nipper Tissue Removed: Adherent slough, fibrin, biofilm, hyperkeratotic tissue Severity: Fat Layer Exposed Amount of bleeding with debridement: Mild Bleeding Controlled with: Pressure Patient tolerated procedure well Assessment/Plan Assessment: Ulcer right sub-fifth met head. DM. Pain right foot Plan: Patient was examined and evaluated again today after recurrence of ulcer sub 5th met head. Subcutaneous debridement was performed as noted in the clinical panel. Once complete, the ulcer site was carefully cleansed and then dressed with slightly moistened Jessica to the base followed by dry sterile dressing. The patient was instructed to continue with offloading the ulcer site with the assistance of the surgical shoe with offloading insert. The importance of continued offloading was discussed at great length again today and the patient says he has been doing well wearing his offloading surgical shoe as well as offloading CAM walker. He is to continue with offloading Cam walker as well as the offloading surgical shoe. I recommended nutritional supplementation with a high-protein diet in order to optimize wound healing potential for this patient. Importance of tight glycemic control was stressed to the patient today. Smoking cessation was discussed with this patient today. 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 Patient was started on 10-day prescription for doxycycline today. Cultures were taken and sent for aerobic, anaerobic, and MRSA PCR evaluation. Patient was informed that his antibiotic may need to be changed in the future pending culture results. 3 view x-ray of the foot was ordered as well. We will continue to monitor for these results. Patient was educated on all signs and symptoms of local and systemic infection, and he was instructed to go to the emergency room immediately should he all in any other questions were answered to the patient's satisfaction. Patient will follow-up in clinic in 1 week to check on progress, or sooner if needed.
[2018-07-30 13:38] LABS: M R Staph aureus DNA By PCR Negative (Negative); Probe Check PASS; Specimen Processing Control PASS; Staph aureus DNA By PCR NEGATIVE (Negative)
[2018-08-06 08:39] VITALS: BP 133/79; PULSE 76; RESP 16; TEMP 36.7; BMI 24.6
--- NOTE | 2018-08-06 09:51 | RAD_ITS ---
STUDY: X-RAY - RIGHT FOOT CLINICAL: Male, 33 years old. Plantar wound. Patient is diabetic TECHNIQUE: 3 view(s) of the foot. COMPARISON: 07/30/2018 FINDINGS: Normal talus, calcaneus, and tarsal bones. Normal visualized subtalar, talonavicular, calcaneocuboid, tarsal and tarsometatarsal articulations. Normal metatarsi. Normal metatarsophalangeal joint of the great toe. Normal tibial and fibular sesamoid bones. Normal interphalangeal joint of the great toe. Normal phalanges of the great toe. Normal second through fifth metatarsophalangeal joints. Normal interphalangeal joints and phalanges of the lesser toes. Mild forefoot soft tissue swelling RAD/Foot min 3 Views IMPRESSION: Forefoot soft tissue swelling Electronically Signed: Stoney Mario DO at 21:47 EST Tel , Service support ,
--- NOTE | 2018-08-06 10:00 | PCM.WC.PN ---
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 (2) Diabetes mellitus type 1 Status: Acute Current Visit: No Code(s): E10.9 - Type 1 diabetes mellitus without complications (3) Pain in right foot Status: Acute Current Visit: No Code(s): M79.671 - Pain in right foot (4) Delayed wound healing Status: Acute Current Visit: No Code(s): T14.8XXD - Other injury of unspecified body region, subsequent encounter Type of Wound Chief Complaint: right plantar foot ulcer History of Wound: This 33-year-old diabetic male presents to the wound healing center for ulcer sub-right fifth metatarsal head that he states re-opened after stepping on one of his kids toys a little over a week ago. He says he tried to use old darío and keep the area offloaded, but he says he was not noticing any improvement and wanted to have the area evaluated in clinic again before it got any worse. He relates that he was walking barefoot at the time of injury. He also says he failed to make an appointment as instructed at his previous discharge in order to be measured for a pair of offloading diabetic shoes. He denies any purulence, surrounding or extending redness, or increase in warmth. He does relate the area is painful at times. Progress of Wound: Ulcer plantar lateral 5th met head appears slightly worse this week. Patient says he got busy and never picked up his antibiotic that was prescribed last week. Patient has been wearing offloading surgical shoe as well as offloading CAM walker and applying daily dressing changes as instructed with darío. Patient denies any feelings, of nausea, vomiting, fever, or chills today. - Physical Exam Vital Signs Temp Pulse Resp BP 98.0 F 76 16 133/79 H 08/06/18 08:39 08/06/18 08:39 08/06/18 08:39 08/06/18 08:39 General: Alert, Oriented x3, Cooperative, No apparent distress Extremities: Capillary Refill Less than 3 Seconds, No Calf Tenderness - Negative Sean and Sanders sign, Diminished Peripheral Pulses - Pulses palpable bilateral, Edema - Mild lower extremity edema Skin: Ulcer/ Wound - Ulcer sub-right fifth met head with fat layer exposed. Measurements are noted below. Ulcer increased this week. The base is noted to be a mixture of adherent slough, fibrin, granular tissue, as well as some slight surrounding hyperkeratotic tissue. There is no probing to bone, no tracking or undermining following debridement, no purulence, no streaking cellulitis. There is some slightly increased surrounding erythema with slight increase in warmth noted this week compared to last. Wound Measurements and Assessment WC - Nurse 1 - General Ulcer Measurement Start: 07/30/18 09:59 Freq: Status: Active Protocol: Activity Type Activity Date Activity User E-Sign Co-Sign Detail Recorded Client Recorded Date Recorded By Document 08/06/18 08:39 [id number] 08/06/18 08:40 08/06/18 08:39 Wound Center Nurse 1 [Ulcer Assessment] #2 right plantar foot -Combined with other wound No -Current Size (cm) - Length 0.3 -Current Size (cm) - Width 0.3 -Current Size (cm) - Depth 0.3 -Total Square Cm 0.09 -Photo Taken No -Epithelialization None Present -Tunneling No -Undermining/Tunneling Yes -Undermining/Tunneling Starts (O' 12 clock) -Undermining/Tunneling Ends (O'clock) 2 -Maximum Distance (cm) 0.4 -Circular Undermining No -Exudate Amt Large -Exudate Type Yellow/Green -Wound Margin Distinct, Outline Attached -Granulation Amt Large (67-100%) -Granulation Quality Red -Slough/Fibrin Yes -Necrosis Amt None Present (0 %) -Necrotic Tissue Type Adherent Slough -Structure Exposed None/Limited to Skin Breakdown -Texture (Yu-wound Skin Appearance) Callus -Moisture (Yu-wound Skin Appearance No Abnormality ) Assessed -Color (Yu-wound Skin Appearance) Erythema -Temperature (Yu-wound Skin No Abnormality Appearance) (Pt Warm) -Tenderness on Palpation (Yu-wound Yes Skin Appearance) -Ulcer Cleansing Rinsed/ Irrigated with Saline -Foul Odor after Cleansing No -Anesthetic Used 4% Lidocaine Solution [Edema Assessment] -Lower Limb Edema Present NA WC - Nurse 2 - General Ulcer CM Notes Start: 07/30/18 09:59 Freq: Status: Active Protocol: Activity Type Activity Date Activity User E-Sign Co-Sign Detail Recorded Client Recorded Date Recorded By Document 08/06/18 09:06 DV [id number] 08/06/18 09:14 DV 08/06/18 09:06 Wound Center Nurse 2 [Procedure/Treatment] #2 right plantar foot -Time 09:08 -Correct Patient Yes -Correct Side, Site, Position Yes -Correct Procedure Yes -Procedure Performed Yes -Type of Procedure Debridement -Clinical Debridement Subcutaneous -Post Debridement Size (cm) - Length 1.1 -Post Debridement Size (cm) - Width 0.7 -Post Debridement Size (cm) - Depth 0.3 -Total Square Cm 0.77 -Wound/Ulcer Outcome Not Healed -Ulcer Cleansing Rinsed/ Irrigated with Saline -Foul Odor after Cleansing No -Bioengineered Tissue No -Bleeding Controlled with Pressure -Offloading No -Type of Offloading Surgical Shoe -Treatment Response Procedure Tolerated Well [See Physician Procedure note for Specifics] Pain Scale: 0-10 Numeric [Pain] -Is Patient Pain Free? Yes Musculoskeletal: Tenderness - With manipulation of ulcer site Neurological: Sensory exam intact to light touch and pain, - - Patient does have some slight altered protective sensation to the foot Psych/Mental Status: Normal Affect, Appropriate Debridement Note Post-Debridement Measurements/Treatment WC - Nurse 2 - General Ulcer CM Notes Start: 07/30/18 09:59 Freq: Status: Active Protocol: Activity Type Activity Date Activity User E-Sign Co-Sign Detail Recorded Client Recorded Date Recorded By Document 07/30/18 10:45 DV [id number] 07/30/18 10:51 DV Document 08/06/18 09:06 DV [id number] 08/06/18 09:14 DV 07/30/18 08/06/18 10:45 09:06 Wound Center Nurse 2 #2 right plantar foot -Time 10:46 09:08 -Correct Patient Yes Yes -Correct Side, Site, Position Yes Yes -Correct Procedure Yes Yes -Procedure Performed Yes Yes -Type of Procedure Debridement Debridement -Clinical Debridement Subcutaneous Subcutaneous -Post Debridement Size (cm) - Length 0.6 1.1 -Post Debridement Size (cm) - Width 0.8 0.7 -Post Debridement Size (cm) - Depth 0.3 0.3 -Total Square Cm 0.48 0.77 -Wound/Ulcer Outcome Not Healed Not Healed -Ulcer Cleansing Rinsed/ Rinsed/ Irrigated with Irrigated with Saline Saline -Foul Odor after Cleansing No No -Bioengineered Tissue No No -Bleeding Controlled with Pressure Pressure -Offloading Yes No -Type of Offloading Surgical Shoe Surgical Shoe -Treatment Response Procedure Procedure Tolerated Well Tolerated Well Pain Scale: 0-10 Numeric Is Patient Pain Free? Yes Yes Wound debrided: Right plantar lateral fifth metatarsal head Laterality: Right Type of Debridement: Excisional debridement Anesthesia Used: 4% Lidocaine Solution Depth: in the subcutaneous layer Percentage of wound debrided: 100 Instrument Used: #15 blade, - - Tissue nipper Tissue Removed: Adherent slough, fibrin, biofilm, hyperkeratotic tissue Severity: Fat Layer Exposed Amount of bleeding with debridement: Mild Bleeding Controlled with: Pressure Patient tolerated procedure well Assessment/Plan Clinical Impression(s) from Imaging Studies Foot X-Ray 07/30/18 11:43 IMPRESSION: Normal x-ray examination of the foot. The reported ulcer is not visible. There are no features of osteomyelitis. Electronically Signed: eNil Bolton MD at 17:52 EST Tel , Service support , Assessment: Ulcer right sub-fifth met head. DM. Pain right foot Plan: Patient was examined and evaluated again today for follow up of ulcer to plantar lateral 5th met head. Ulcer site has gotten bigger since last week. Patient was non compliant and never picked up his antibiotic last week. Subcutaneous debridement was performed as noted in the clinical panel. Once complete, the ulcer site was carefully cleansed and then dressed with slightly moistened Darío to the base followed by dry sterile dressing. The patient was instructed to continue with offloading the ulcer site with the assistance of the surgical shoe with offloading insert. The importance of continued offloading was discussed at great length again today and the patient says he has been doing well wearing his offloading surgical shoe as well as offloading CAM walker. He is to continue with offloading CAM walker as well as the offloading surgical shoe. I recommended nutritional supplementation with a high-protein diet in order to optimize wound healing potential for this patient. Importance of tight glycemic control was stressed to the patient today. Smoking cessation was discussed with this patient today. 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 Patient was given another prescription this week for 10-day prescription for doxycycline. Cultures were taken again today and sent for aerobic, anaerobic, and MRSA PCR evaluation as the cultures last week showed no aerobic or anaerobic growth. Patient was informed that his antibiotic may need to be changed in the future pending culture results. 3 view x-ray of the foot was ordered as well again today due to worsening of ulcer site over the last week. X-rays from last week showed no osseous destruction and no soft tissue gas. I also ordered CBC w diff, CMP, ESR, and HgA1c. We will continue to monitor for these results. I encouraged the patient to be off work for the next week until he could be re-evaluated in clinic. He denies this, but says that he will agree to be off work for the next two days. A note was given for this. Patient was educated on all signs and symptoms of local and systemic infection, and he was instructed to go to the emergency room immediately should he notice any. All other questions were answered to the patient's satisfaction. Patient will follow-up in clinic in 1 week to check on progress, or sooner if needed.
--- NOTE | 2018-08-06 10:12 | PN.PCM_ITS ---
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 (2) Diabetes mellitus type 1 Status: Acute Current Visit: No Code(s): E10.9 - Type 1 diabetes mellitus without complications (3) Pain in right foot Status: Acute Current Visit: No Code(s): M79.671 - Pain in right foot (4) Delayed wound healing Status: Acute Current Visit: No Code(s): T14.8XXD - Other injury of unspecified body region, subsequent encounter Type of Wound Chief Complaint: right plantar foot ulcer History of Wound: This 33-year-old diabetic male presents to the wound healing center for ulcer sub-right fifth metatarsal head that he states re-opened after stepping on one of his kids toys a little over a week ago. He says he tried to use old darío and keep the area offloaded, but he says he was not noticing any improvement and wanted to have the area evaluated in clinic again before it got any worse. He relates that he was walking barefoot at the time of injury. He also says he failed to make an appointment as instructed at his previous d ischarge in order to be measured for a pair of offloading diabetic shoes. He denies any purulence, surrounding or extending redness, or increase in warmth. He does relate the area is painful at times. Progress of Wound: Ulcer plantar lateral 5th met head appears slightly worse this week. Patient says he got busy and never picked up his antibiotic that was prescribed last week. Patient has been wearing offloading surgical shoe as well as offloading CAM walker and applying daily dressing changes as instructed with darío. Patient denies any feelings, of nausea, vomiting, fever, or chills today. - Physical Exam Vital Signs Temp Pulse Resp BP 98.0 F 76 16 133/79 H 08/06/18 08:39 08/06/18 08:39 08/06/18 08:39 08/06/18 08:39 General: Alert, Oriented x3, Cooperative, No apparent distress Extremities: Capillary Refill Less than 3 Seconds, No Calf Tenderness - Negative Sean and Sanders sign, Diminished Peripheral Pulses - Pulses palpable bilateral, Edema - Mild lower extremity edema Skin: Ulcer/ Wound - Ulcer sub-right fifth met head with fat layer exposed. Measurements are noted below. Ulcer increased this week. The base is noted to be a mixture of adherent slough, fibrin, granular tissue, as well as some slight surrounding hyperkeratotic tissue. There is no probing to bone, no tracking or undermining following debridement, no purulence, no streaking cellulitis. There is some slightly increased surrounding erythema with slight increase in warmth noted this week compared to last. Wound Measurements and Assessment WC - Nurse 1 - General Ulcer Measurement Start: 07/30/18 09:59 Freq: Status: Active Protocol: Activity Type Activity Date Activity User E-Sign Co-Sign Detail Recorded Client Recorded Date Recorded By Document 08/06/18 08:39 [id number] 08/06/18 08:40 08/06/18 08:39 Wound Center Nurse 1 [Ulcer Assessment] #2 right plantar foot -Combined with other wound No -Current Size (cm) - Length 0.3 -Current Size (cm) - Width 0.3 -Current Size (cm) - Depth 0.3 -Total Square Cm 0.09 -Photo Taken No -Epithelialization None Present -Tunneling No -Undermining/Tunneling Yes -Undermining/Tunneling Starts (O' 12 clock) -Undermining/Tunneling Ends (O'clock) 2 -Maximum Distance (cm) 0.4 -Circular Undermining No -Exudate Amt Large -Exudate Type Yellow/Green -Wound Margin Distinct, Outline Attached -Granulation Amt Large (67-100%) -Granulation Quality Red -Slough/Fibrin Yes -Necrosis Amt None Present (0 %) -Necrotic Tissue Type Adherent Slough -Structure Exposed None/Limited to Skin Breakdown -Texture (Yu-wound Skin Appearance) Callus -Moisture (Yu-wound Skin Appearance No Abnormality ) Assessed -Color (Yu-wound Skin Appearance) Erythema -Temperature (Yu-wound Skin No Abnormality Appearance) (Pt Warm) -Tenderness on Palpation (Yu-wound Yes Skin Appearance) -Ulcer Cleansing Rinsed/ Irrigated with Saline -Foul Odor after Cleansing No -Anesthetic Used 4% Lidocaine Solution [Edema Assessment] -Lower Limb Edema Present NA WC - Nurse 2 - General Ulcer CM Notes Start: 07/30/18 09:59 Freq: Status: Active Protocol: Activity Type Activity Date Activity User E-Sign Co-Sign Detail Recorded Client Recorded Date Recorded By Document 08/06/18 09:06 DV [id number] 08/06/18 09:14 DV 08/06/18 09:06 Wound Center Nurse 2 [Procedure/Treatment] #2 right plantar foot -Time 09:08 -Correct Patient Yes -Correct Side, Site, Position Yes -Correct Procedure Yes -Procedure Performed Yes -Type of Procedure Debridement -Clinical Debridement Subcutaneous -Post Debridement Size (cm) - Length 1.1 -Post Debridement Size (cm) - Width 0.7 -Post Debridement Size (cm) - Depth 0.3 -Total Square Cm 0.77 -Wound/Ulcer Outcome Not Healed -Ulcer Cleansing Rinsed/ Irrigated with Saline -Foul Odor after Cleansing No -Bioengineered Tissue No -Bleeding Controlled with Pressure -Offloading No -Type of Offloading Surgical Shoe -Treatment Response Procedure Tolerated Well [See Physician Procedure note for Specifics] Pain Scale: 0-10 Numeric [Pain] -Is Patient Pain Free? Yes Musculoskeletal: Tenderness - With manipulation of ulcer site Neurological: Sensory exam intact to light touch and pain, - - Patient does have some slight altered protective sensation to the foot Psych/Mental Status: Normal Affect, Appropriate Debridement Note Post-Debridement Measurements/Treatment WC - Nurse 2 - General Ulcer CM Notes Start: 07/30/18 09:59 Freq: Status: Active Protocol: Activity Type Activity Date Activity User E-Sign Co-Sign Detail Recorded Client Recorded Date Recorded By Document 07/30/18 10:45 DV [id number] 07/30/18 10:51 DV Document 08/06/18 09:06 [id number] 08/06/18 09:14 DV 07/30/18 08/06/18 10:45 09:06 Wound Center Nurse 2 #2 right plantar foot -Time 10:46 09:08 -Correct Patient Yes Yes -Correct Side, Site, Position Yes Yes -Correct Procedure Yes Yes -Procedure Performed Yes Yes -Type of Procedure Debridement Debridement -Clinical Debridement Subcutaneous Subcutaneous -Post Debridement Size (cm) - Length 0.6 1.1 -Post Debridement Size (cm) - Width 0.8 0.7 -Post Debridement Size (cm) - Depth 0.3 0.3 -Total Square Cm 0.48 0.77 -Wound/Ulcer Outcome Not Healed Not Healed -Ulcer Cleansing Rinsed/ Rinsed/ Irrigated with Irrigated with Saline Saline -Foul Odor after Cleansing No No -Bioengineered Tissue No No -Bleeding Controlled with Pressure Pressure -Offloading Yes No -Type of Offloading Surgical Shoe Surgical Shoe -Treatment Response Procedure Procedure Tolerated Well Tolerated Well Pain Scale: 0-10 Numeric Is Patient Pain Free? Yes Yes Wound debrided: Right plantar lateral fifth metatarsal head Laterality: Right Type of Debridement: Excisional debridement Anesthesia Used: 4% Lidocaine Solution Depth: in the subcutaneous layer Percentage of wound debrided: 100 Instrument Used: #15 blade, - - Tissue nipper Tissue Removed: Adherent slough, fibrin, biofilm, hyperkeratotic tissue Severity: Fat Layer Exposed Amount of bleeding with debridement: Mild Bleeding Controlled with: Pressure Patient tolerated procedure well Assessment/Plan Clinical Impression(s) from Imaging Studies Foot X-Ray 07/30/18 11:43 IMPRESSION: Normal x-ray examination of the foot. The reported ulcer is not visible. There are no features of osteomyelitis. Electronically Signed: Neil Bolton MD at 17:52 EST Tel , Service support , Assessment: Ulcer right sub-fifth met head. DM. Pain right foot Plan: Patient was examined and evaluated again today for follow up of ulcer to plantar lateral 5th met head. Ulcer site has gotten bigger since last week. Patient was non compliant and never picked up his antibiotic last week. Subcutaneous debridement was performed as noted in the clinical panel. Once complete, the ulcer site was carefully cleansed and then dressed with slightly moistened Darío to the base followed by dry sterile dressing. The patient was instructed to continue with offloading the ulcer site with the assistance of the surgical shoe with offloading insert. The importance of continued offloading was discussed at great length again today and the patient says he has been doing well wearing his offloading surgical shoe as well as offloading CAM walker. He is to continue with offloading CAM walker as well as the offloading surgical shoe. I recommended nutritional supplementation with a high-protein diet in order to optimize wound healing potential for this patient. Importance of tight glycemic control was stressed to the patient today. Smoking cessation was discussed with this patient today. 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 Patient was given another prescription this week for 10-day prescription for doxycycline. Cultures were taken again today and sent for aerobic, anaerobic, and MRSA PCR evaluation as the cultures last week showed no aerobic or anaerobic growth. Patient was informed that his antibiotic may need to be changed in the future pending culture results. 3 view x-ray of the foot was ordered as well again today due to worsening of ulcer site over the last week. X-rays from last week showed no osseous destruction and no soft tissue gas. I also ordered CBC w diff, CMP, ESR, and HgA1c. We will continue to monitor for these results. I encouraged the patient to be off work for the next week until he could be re-evaluated in clinic. He denies this, but says that he will agree to be off work for the next two days. A note was given for this. Patient was educated on all signs and symptoms of local and systemic infection, and he was instructed to go to the emergency room immediately should he notice any. All other questions were answered to the patient's satisfaction. Patient will follow-up in clinic in 1 week to check on progress, or sooner if needed.
[2018-08-06 11:14] LABS: Erythrocyte Sedimentation Rate 2 mm/hr (0-15)
[2018-08-06 11:19] LABS: Absolute Lymphocyte Count 2.51 X10^3/ul (0.83-4.51); Absolute Neutrophil Count 5.5 X10^3/uL (2.0-7.7); Basophil# 0.04 X10^3/uL; Basophil% 0.4 % (0-1); Eosinophils% 2.2 % (0-5); Hematocrit 42.9 % (40-54); Hemoglobin 14.6 g/dl (13.0-16.5); Lymphocyte # 2.51 X10^3/ul (4.0); Lymphocyte % 27.9 % (19-41); Mean Corpuscular Hgb 29.8 pg (27.0-32.0); Mean Corpuscular Volume 87.6 fL (80-94); Mean Platelet Vol. 11.3 fl (6.2-12.0); Monocyte# 0.74 X10^3/uL; Monocyte% 8.2 % (0-10); Neutrophil # 5.48 X10^3/uL (2.7-7.7); Neutrophil % 61.1 % (47-70); Platelet Count 187 K/mm3 (150-450); RBC Distribution Width CV 11.8 % (11.6-14.6); RBC Distribution Width SD 37.4 fl (35.1-43.9)
[2018-08-06 11:26] LABS: POSITIVE COUNT NO; POSITIVE DIFFERENTIAL NO; POSITIVE MORPHOLOGY NO
[2018-08-06 11:29] LABS: ALB/GLOB Ratio 1.2 RATIO (0.9-2.4); AST(SGOT) 9 U/L (15-37); Alanine Aminotransfer ALT/SGPT 24 U/L (16-61); Albumin, Serum 3.8 g/dL (3.2-5.0); Alkaline Phosphatase 125 U/L (45-117); Anion Gap 10 (5-15); BUN 15 mg/dL (7-18); BUN/Creat Ratio 16.9 RATIO (10-20); Calcium,Total 8.9 mg/dL (8.5-10.1); Chloride 102 mmol/L (98-107); Creatinine, Serum 0.89 mg/dL (0.70-1.30); EST Glomerular Filtration Rate 104 mL/min (>60); Est Glom Filt Rate - Afr Amer 126 mL/min (>60); Estimated Creatinine Clearance 137.26 ml/min; Globulin 3.2 g/dL (2.2-4.2); Glucose 335 mg/dL (74-106); Prealbumin 21.1 mg/dL (20.0-40.0); Sodium Level 138 mmol/L (136-145)
[2018-08-06 11:33] LABS: Hemoglobin A1c 10.4 % (4.2-6.3)
[2018-08-06 12:35] LABS: M R Staph aureus DNA By PCR Negative (Negative); Probe Check PASS; Specimen Processing Control PASS; Staph aureus DNA By PCR NEGATIVE (Negative)
[2018-08-13 08:16] VITALS: BP 93/67; PULSE 109; RESP 18; TEMP 36.7; BMI 24.6
--- NOTE | 2018-08-13 08:35 | PCM.WC.PN ---
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 (2) Diabetes mellitus type 1 Status: Acute Current Visit: No Code(s): E10.9 - Type 1 diabetes mellitus without complications (3) Pain in right foot Status: Acute Current Visit: No Code(s): M79.671 - Pain in right foot (4) Delayed wound healing Status: Acute Current Visit: No Code(s): T14.8XXD - Other injury of unspecified body region, subsequent encounter Type of Wound Chief Complaint: right plantar foot ulcer History of Wound: This 33-year-old diabetic male presents to the wound healing center for ulcer sub-right fifth metatarsal head that he states re-opened after stepping on one of his kids toys a little over a week ago. He says he tried to use old darío and keep the area offloaded, but he says he was not noticing any improvement and wanted to have the area evaluated in clinic again before it got any worse. He relates that he was walking barefoot at the time of injury. He also says he failed to make an appointment as instructed at his previous discharge in order to be measured for a pair of offloading diabetic shoes. He denies any purulence, surrounding or extending redness, or increase in warmth. He does relate the area is painful at times. Progress of Wound: Ulcer plantar lateral 5th met head improved since last week. Patient has been taking prescribed antibiotic, staying off of his feet as much as possible, and having daily darío dressing changes. Patient has been wearing offloading surgical shoe as well as offloading CAM walker and applying daily dressing changes as instructed with darío. Patient denies any feelings, of nausea, vomiting, fever, or chills today. - Physical Exam Vital Signs Temp Pulse Resp BP 98.0 F 109 H 18 93/67 08/13/18 08:16 08/13/18 08:16 08/13/18 08:16 08/13/18 08:16 General: Alert, Oriented x3, Cooperative, No apparent distress Extremities: Capillary Refill Less than 3 Seconds, No Calf Tenderness - Negative Sean and Sanders sign, Diminished Peripheral Pulses - DP and PT pulses palpable bilateral, Edema - Mild lower extremity edema Skin: Ulcer/ Wound - Ulcer sub-right fifth met head with fat layer exposed. Measurements are noted below. Ulcer improved this week. The base is noted to be a mixture of adherent slough, fibrin, granular tissue, as well as some slight surrounding hyperkeratotic tissue. There is no probing to bone, no tracking or undermining following debridement, no purulence, no streaking cellulitis. No surrounding erythema or increased warmth noted this week. Wound Measurements and Assessment WC - Nurse 1 - General Ulcer Measurement Start: 07/30/18 09:59 Freq: Status: Active Protocol: Activity Type Activity Date Activity User E-Sign Co-Sign Detail Recorded Client Recorded Date Recorded By Document 08/13/18 08:16 [id number] 08/13/18 08:22 08/13/18 08:16 Wound Center Nurse 1 [Ulcer Assessment] #2 right plantar foot -Combined with other wound No -Current Size (cm) - Length 0.6 -Current Size (cm) - Width 0.1 -Current Size (cm) - Depth 0.1 -Total Square Cm 0.06 -Photo Taken No -Epithelialization Medium 34-66% -Tunneling No -Undermining/Tunneling No -Circular Undermining No -Exudate Amt Small -Exudate Type Serosanguineous -Wound Margin Flat & Intact -Granulation Amt Large (67-100%) -Granulation Quality Red -Slough/Fibrin Yes -Necrosis Amt Small (1-33%) -Necrotic Tissue Type Adherent Slough -Structure Exposed N/A -Texture (Yu-wound Skin Appearance) Assessed Callus -Moisture (Yu-wound Skin Appearance Assessed ) Dry/Scaly -Color (Yu-wound Skin Appearance) Assessed -Temperature (Yu-wound Skin No Abnormality Appearance) (Pt Warm) -Tenderness on Palpation (Yu-wound No Skin Appearance) -Ulcer Cleansing Wound Cleanser -Foul Odor after Cleansing No -Anesthetic Used 4% Lidocaine Solution 5% Lidocaine Gel [Edema Assessment] -Lower Limb Edema Present No - Nurse 2 - General Ulcer CM Notes Start: 07/30/18 09:59 Freq: Status: Active Protocol: Activity Type Activity Date Activity User E-Sign Co-Sign Detail Recorded Client Recorded Date Recorded By Document 08/13/18 08:24 [id number] 08/13/18 08:31 01/31/19 08:24 Wound Center Nurse 2 [Procedure/Treatment] #2 right plantar foot -Time 08:28 -Correct Patient Yes -Correct Side, Site, Position Yes -Correct Procedure Yes -Procedure Performed Yes -Type of Procedure Debridement -Clinical Debridement Subcutaneous -Post Debridement Size (cm) - Length 0.6 -Post Debridement Size (cm) - Width 0.4 -Post Debridement Size (cm) - Depth 0.2 -Total Square Cm 0.24 -Wound/Ulcer Outcome Not Healed -Ulcer Cleansing Rinsed/ Irrigated with Saline -Foul Odor after Cleansing No -Bioengineered Tissue No -Bleeding Controlled with Pressure -Offloading Yes -Type of Offloading Surgical Shoe -Treatment Response Procedure Tolerated Well [See Physician Procedure note for Specifics] Pain Scale: 0-10 Numeric [Pain] -Is Patient Pain Free? Yes Musculoskeletal: Tenderness - Very minor tenderness with manipulation of ulcer site Neurological: Sensory exam intact to light touch and pain, - - Patient does have some slight altered protective sensation to the right foot Psych/Mental Status: Normal Affect, Appropriate Debridement Note Post-Debridement Measurements/Treatment WC - Nurse 2 - General Ulcer CM Notes Start: 07/30/18 09:59 Freq: Status: Active Protocol: Activity Type Activity Date Activity User E-Sign Co-Sign Detail Recorded Client Recorded Date Recorded By Document 07/30/18 10:45 [id number] 07/30/18 10:51 DV Document 08/06/18 09:06 [id number] 08/06/18 09:14 DV Document 08/13/18 08:24 [id number] 08/13/18 08:31 07/30/18 08/06/18 08/13/18 10:45 09:06 08:24 Wound Center Nurse 2 #2 right plantar foot -Time 10:46 09:08 08:28 -Correct Patient Yes Yes Yes -Correct Side, Site, Position Yes Yes Yes -Correct Procedure Yes Yes Yes -Procedure Performed Yes Yes Yes -Type of Procedure Debridement Debridement Debridement -Clinical Debridement Subcutaneous Subcutaneous Subcutaneous -Post Debridement Size (cm) - Length 0.6 1.1 0.6 -Post Debridement Size (cm) - Width 0.8 0.7 0.4 -Post Debridement Size (cm) - Depth 0.3 0.3 0.2 -Total Square Cm 0.48 0.77 0.24 -Wound/Ulcer Outcome Not Healed Not Healed Not Healed -Ulcer Cleansing Rinsed/ Rinsed/ Rinsed/ Irrigated with Irrigated with Irrigated with Saline Saline Saline -Foul Odor after Cleansing No No No -Bioengineered Tissue No No No -Bleeding Controlled with Pressure Pressure Pressure -Offloading Yes No Yes -Type of Offloading Surgical Shoe Surgical Shoe Surgical Shoe -Treatment Response Procedure Procedure Procedure Tolerated Well Tolerated Well Tolerated Well Pain Scale: 0-10 Numeric Is Patient Pain Free? Yes Yes Yes Wound debrided: Right plantar lateral fifth metatarsal head Laterality: Right Type of Debridement: Excisional debridement Anesthesia Used: 4% Lidocaine Solution Depth: in the subcutaneous layer Percentage of wound debrided: 100 Instrument Used: #15 blade Tissue Removed: Adherent slough, fibrin, biofilm, hyperkeratotic tissue Severity: Fat Layer Exposed Amount of bleeding with debridement: Mild Bleeding Controlled with: Pressure Patient tolerated procedure well Assessment/Plan Clinical Impression(s) from Imaging Studies Foot X-Ray 07/30/18 11:43 IMPRESSION: Normal x-ray examination of the foot. The reported ulcer is not visible. There are no features of osteomyelitis. Electronically Signed: Neil Bolton MD at 17:52 EST Tel , Service support , Foot X-Ray 08/06/18 09:51 IMPRESSION: Forefoot soft tissue swelling Electronically Signed: Stoney Mario DO at 21:47 EST Tel , Service support , Assessment: Ulcer right sub-fifth met head. DM. Pain right foot Plan: Patient was examined and evaluated again today for follow up of ulcer to plantar lateral 5th met head. Ulcer site is improved this week. Patient has been taking his doxycycline as prescribed. Subcutaneous debridement was performed as noted in the clinical panel. Once complete, the ulcer site was carefully cleansed and then dressed with slightly moistened Darío to the base followed by dry sterile dressing. The patient was instructed to continue with offloading the ulcer site with the assistance of the surgical shoe with offloading insert. The importance of continued offloading was discussed at great length again today and the patient says he has been doing well wearing his offloading surgical shoe as well as offloading CAM walker. He is to continue with offloading CAM walker as well as the offloading surgical shoe. I recommended nutritional supplementation with a high-protein diet in order to optimize wound healing potential for this patient. Importance of tight glycemic control was stressed to the patient today. Smoking cessation was discussed with this patient today. 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 Cultures were taken last week showed no aerobic or anaerobic growth. MRSA pcr negative. 3 view x-ray of the foot was ordered as well again last week and they showed some soft tissue swelling to forefoot. No osseous destruction noted. Reviewed patient's lab work which was all relatively normal except his hemoglobin a1c was elevated above 10. A note was given for the patient to be off of work for the week. Patient was educated on all signs and symptoms of local and systemic infection, and he was instructed to go to the emergency room immediately should he notice any. All other questions were answered to the patient's satisfaction. Patient will follow-up in clinic in 1 week to check on progress, or sooner if needed.
--- NOTE | 2018-08-13 08:40 | PN.PCM_ITS ---
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 (2) Diabetes mellitus type 1 Status: Acute Current Visit: No Code(s): E10.9 - Type 1 diabetes mellitus without complications (3) Pain in right foot Status: Acute Current Visit: No Code(s): M79.671 - Pain in right foot (4) Delayed wound healing Status: Acute Current Visit: No Code(s): T14.8XXD - Other injury of unspecified body region, subsequent encounter Type of Wound Chief Complaint: right plantar foot ulcer History of Wound: This 33-year-old diabetic male presents to the wound healing center for ulcer sub-right fifth metatarsal head that he states re-opened after stepping on one of his kids toys a little over a week ago. He says he tried to use old darío and keep the area offloaded, but he says he was not noticing any improvement and wanted to have the area evaluated in clinic again before it got any worse. He relates that he was walking barefoot at the time of injury. He also says he failed to make an appointment as instructed at his previous d ischarge in order to be measured for a pair of offloading diabetic shoes. He denies any purulence, surrounding or extending redness, or increase in warmth. He does relate the area is painful at times. Progress of Wound: Ulcer plantar lateral 5th met head improved since last week. Patient has been taking prescribed antibiotic, staying off of his feet as much as possible, and having daily darío dressing changes. Patient has been wearing offloading surgical shoe as well as offloading CAM walker and applying daily dressing changes as instructed with darío. Patient denies any feelings, of nausea, vomiting, fever, or chills today. - Physical Exam Vital Signs Temp Pulse Resp BP 98.0 F 109 H 18 93/67 08/13/18 08:16 08/13/18 08:16 08/13/18 08:16 08/13/18 08:16 General: Alert, Oriented x3, Cooperative, No apparent distress Extremities: Capillary Refill Less than 3 Seconds, No Calf Tenderness - Negative Sean and Sanders sign, Diminished Peripheral Pulses - DP and PT pulses palpable bilateral, Edema - Mild lower extremity edema Skin: Ulcer/ Wound - Ulcer sub-right fifth met head with fat layer exposed. Measurements are noted below. Ulcer improved this week. The base is noted to be a mixture of adherent slough, fibrin, granular tissue, as well as some slight surrounding hyperkeratotic tissue. There is no probing to bone, no tracking or undermining following debridement, no purulence, no streaking cellulitis. No surrounding erythema or increased warmth noted this week. Wound Measurements and Assessment WC - Nurse 1 - General Ulcer Measurement Start: 07/30/18 09:59 Freq: Status: Active Protocol: Activity Type Activity Date Activity User E-Sign Co-Sign Detail Recorded Client Recorded Date Recorded By Document 08/13/18 08:16 [id number] 08/13/18 08:22 08/13/18 08:16 Wound Center Nurse 1 [Ulcer Assessment] #2 right plantar foot -Combined with other wound No -Current Size (cm) - Length 0.6 -Current Size (cm) - Width 0.1 -Current Size (cm) - Depth 0.1 -Total Square Cm 0.06 -Photo Taken No -Epithelialization Medium 34-66% -Tunneling No -Undermining/Tunneling No -Circular Undermining No -Exudate Amt Small -Exudate Type Serosanguineous -Wound Margin Flat & Intact -Granulation Amt Large (67-100%) -Granulation Quality Red -Slough/Fibrin Yes -Necrosis Amt Small (1-33%) -Necrotic Tissue Type Adherent Slough -Structure Exposed N/A -Texture (Yu-wound Skin Appearance) Assessed Callus -Moisture (Yu-wound Skin Appearance Assessed ) Dry/Scaly -Color (Yu-wound Skin Appearance) Assessed -Temperature (Yu-wound Skin No Abnormality Appearance) (Pt Warm) -Tenderness on Palpation (Yu-wound No Skin Appearance) -Ulcer Cleansing Wound Cleanser -Foul Odor after Cleansing No -Anesthetic Used 4% Lidocaine Solution 5% Lidocaine Gel [Edema Assessment] -Lower Limb Edema Present No WC - Nurse 2 - General Ulcer CM Notes Start: 07/30/18 09:59 Freq: Status: Active Protocol: Activity Type Activity Date Activity User E-Sign Co-Sign Detail Recorded Client Recorded Date Recorded By Document 08/13/18 08:24 [id number] [id number] 08/13/18 08:31 08/13/18 08:24 Wound Center Nurse 2 [Procedure/Treatment] #2 right plantar foot -Time 08:28 -Correct Patient Yes -Correct Side, Site, Position Yes -Correct Procedure Yes -Procedure Performed Yes -Type of Procedure Debridement -Clinical Debridement Subcutaneous -Post Debridement Size (cm) - Length 0.6 -Post Debridement Size (cm) - Width 0.4 -Post Debridement Size (cm) - Depth 0.2 -Total Square Cm 0.24 -Wound/Ulcer Outcome Not Healed -Ulcer Cleansing Rinsed/ Irrigated with Saline -Foul Odor after Cleansing No -Bioengineered Tissue No -Bleeding Controlled with Pressure -Offloading Yes -Type of Offloading Surgical Shoe -Treatment Response Procedure Tolerated Well [See Physician Procedure note for Specifics] Pain Scale: 0-10 Numeric [Pain] -Is Patient Pain Free? Yes Musculoskeletal: Tenderness - Very minor tenderness with manipulation of ulcer site Neurological: Sensory exam intact to light touch and pain, - - Patient does have some slight altered protective sensation to the right foot Psych/Mental Status: Normal Affect, Appropriate Debridement Note Post-Debridement Measurements/Treatment WC - Nurse 2 - General Ulcer CM Notes Start: 07/30/18 09:59 Freq: Status: Active Protocol: Activity Type Activity Date Activity User E-Sign Co-Sign Detail Recorded Client Recorded Date Recorded By Document 07/30/18 10:45 [id number] 07/30/18 10:51 DV Document 08/06/18 09:06 [id number] 08/06/18 09:14 DV Document 08/13/18 08:24 JF [id number] 08/13/18 08:31 07/30/18 08/06/18 08/13/18 10:45 09:06 08:24 Wound Center Nurse 2 #2 right plantar foot -Time 10:46 09:08 08:28 -Correct Patient Yes Yes Yes -Correct Side, Site, Position Yes Yes Yes -Correct Procedure Yes Yes Yes -Procedure Performed Yes Yes Yes -Type of Procedure Debridement Debridement Debridement -Clinical Debridement Subcutaneous Subcutaneous Subcutaneous -Post Debridement Size (cm) - Length 0.6 1.1 0.6 -Post Debridement Size (cm) - Width 0.8 0.7 0.4 -Post Debridement Size (cm) - Depth 0.3 0.3 0.2 -Total Square Cm 0.48 0.77 0.24 -Wound/Ulcer Outcome Not Healed Not Healed Not Healed -Ulcer Cleansing Rinsed/ Rinsed/ Rinsed/ Irrigated with Irrigated with Irrigated with Saline Saline Saline -Foul Odor after Cleansing No No No -Bioengineered Tissue No No No -Bleeding Controlled with Pressure Pressure Pressure -Offloading Yes No Yes -Type of Offloading Surgical Shoe Surgical Shoe Surgical Shoe -Treatment Response Procedure Procedure Procedure Tolerated Well Tolerated Well Tolerated Well Pain Scale: 0-10 Numeric Is Patient Pain Free? Yes Yes Yes Wound debrided: Right plantar lateral fifth metatarsal head Laterality: Right Type of Debridement: Excisional debridement Anesthesia Used: 4% Lidocaine Solution Depth: in the subcutaneous layer Percentage of wound debrided: 100 Instrument Used: #15 blade Tissue Removed: Adherent slough, fibrin, biofilm, hyperkeratotic tissue Severity: Fat Layer Exposed Amount of bleeding with debridement: Mild Bleeding Controlled with: Pressure Patient tolerated procedure well Assessment/Plan Clinical Impression(s) from Imaging Studies Foot X-Ray 07/30/18 11:43 IMPRESSION: Normal x-ray examination of the foot. The reported ulcer is not visible. There are no features of osteomyelitis. Electronically Signed: Neil Bolton MD at 17:52 EST Tel , Service support , Foot X-Ray 08/06/18 09:51 IMPRESSION: Forefoot soft tissue swelling Electronically Signed: Stoney Mario DO at 21:47 EST Tel , Service support , Assessment: Ulcer right sub-fifth met head. DM. Pain right foot Plan: Patient was examined and evaluated again today for follow up of ulcer to plantar lateral 5th met head. Ulcer site is improved this week. Patient has been taking his doxycycline as prescribed. Subcutaneous debridement was performed as noted in the clinical panel. Once complete, the ulcer site was carefully cleansed and then dressed with slightly moistened Darío to the base followed by dry sterile dressing. The patient was instructed to continue with offloading the ulcer site with the assistance of the surgical shoe with offloading insert. The importance of continued offloading was discussed at great length again today and the patient says he has been doing well wearing his offloading surgical shoe as well as offloading CAM walker. He is to continue with offloading CAM walker as well as the offloading surgical shoe. I recommended nutritional supplementation with a high-protein diet in order to optimize wound healing potential for this patient. Importance of tight glycemic control was stressed to the patient today. Smoking cessation was discussed with this patient today. 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 Cultures were taken last week showed no aerobic or anaerobic growth. MRSA pcr negative. 3 view x-ray of the foot was ordered as well again last week and they showed some soft tissue swelling to forefoot. No osseous destruction noted. Reviewed patient's lab work which was all relatively normal except his hemoglobin a1c was elevated above 10. A note was given for the patient to be off of work for the week. Patient was educated on all signs and symptoms of local and systemic infection, and he was instructed to go to the emergency room immediately should he notice any. All other questions were answered to the patient's satisfaction. Patient will follow-up in clinic in 1 week to check on progress, or sooner if needed.
--- OUTSIDE RECORDS SUMMARY | 2018-10-03 23:33 | XMS RPT_ITS ---
:1985 Author Organization OHIP Support Name Relationship Address Phone BW3 Unavailable [address] + [place] , [facility] [address] LEITY, COLTON Unavailable [address] + [place] [address] BW[address] Unavailable [address] + [place] [address] LEITY, COLTON Unavailable [address] + [place] [address] BW[address] Unavailable [address] + [place] [address] LEITY, COLTON Unavailable [address] + [place] [address] BW3 Unavailable [address] + [place] [address] LEITY, COLTON Unavailable [address] + [place] [address] BW3 Unavailable [address] + [place] [address] LEITY, COLTON Unavailable [address] + [place] [address] BW3 Unavailable [address] + [place] [address] LEITY, COLTON Unavailable [address] + [place] [address] BW3 Unavailable [address] + [place] [address] LEITY, CLOTON Unavailable [address] + [place] [address] COLTON RAMAN Unavailable [address] + [place] [address] [facility] Unavailable [address] + [place] [address] Care Team Providers Name Role Phone Sheridan Martinez Attending Unavailable Sheridan Martinez Referring Unavailable Magdiel Hrust Primary Care Unavailable Mirna Oliveira SALES DATA ANALYST-C Consulting Unavailable George Meredith Attending Unavailable Magdiel Hurst Primary Care Unavailable George Meredith Referring Unavailable Mirna Oliveira SALES DATA ANALYST-C Attending Unavailable Mali Shay Referring Unavailable Mali Shay Primary Care Unavailable Amadou Ramachandran SALES DATA ANALYST-C Attending Unavailable NOT, DEFINED Primary Care Unavailable Amadou Ramachandran SALES DATA ANALYST-C Attending Unavailable NOT, BÁRBARA Primary Care Unavailable Mirna Oliveira SALES DATA ANALYST-C Attending Unavailable Mali Shay Referring Unavailable George Meredith Attending Unavailable Magdiel Hurst Primary Care Unavailable George Meredith Attending Unavailable Magdiel Hurst Primary Care Unavailable PROBLEMS PROBLEMS DATE TYPE CONDITION / CODE ATTENDING STATUS SOURCE 05/14/2018 Unknown E11.9 - Type 2 [facility] [place] Active [place] diabetes mellitus SALES DATA ANALYST-C Community without Hospital complications / Repository E11.9(ICD-10) 05/14/2018 Unknown L89.899 - Pressure [employer] [place] Active [place] ulcer of other SALES DATA ANALYST-C Community site, unspecified Hospital stage / Repository L89.899(ICD-10) 02/11/2018 Unknown E10.65 - Type 1 [employer] [place] Active [place] diabetes mellitus SALES DATA ANALYST-C Community with hyperglycemia Hospital / E10.65(ICD-10) Repository PROCEDURES PROCEDURES No Procedure Records FoundRESULTS RESULTS FOOT MIN 3 VIEWS Observed: 08/06/2018 Status: F Source: [place] 9:51 AM [facility] REPOSITORY [facility] Imaging Services [address] [place] [address] Foot min 3 Views MR#: [id number] Acct: [id number] Name: SARAH RAMAN Rep #: [id number] : 1985 M 33 From: Stoney Mario DO PCP: Magdiel Hurst MD Status: REG RCR Study: Foot min 3 Views Date of Exam: 08/06/18 Exam# [id number] Ordering Dr: George Meredith DPM STUDY: X-RAY - RIGHT FOOT CLINICAL: Male, 33 years old. Plantar wound. Patient is diabetic TECHNIQUE: 3 view(s) of the foot. COMPARISON: 07/30/2018 FINDINGS: Normal talus, calcaneus, and tarsal bones. Normal visualized subtalar, talonavicular, calcaneocuboid, tarsal and tarsometatarsal articulations. Normal metatarsi. Normal metatarsophalangeal joint of the great toe. Normal tibial and fibular sesamoid bones. Normal interphalangeal joint of the great toe. Normal phalanges of the great toe. Normal second through fifth metatarsophalangeal joints. Normal interphalangeal joints and phalanges of the lesser toes. Mild forefoot soft tissue swelling RAD/Foot min 3 Views IMPRESSION: Forefoot soft tissue swelling Electronically Signed: Stoney Mario DO at 21:47 EST Tel , Service support , CC: YUMIKO Meredith; Magdiel Hurst MD Lunch Cook: Signed ERYTHROCYTE SED RATE Collected: 08/06/2018 Status: F Source: [place] 9:30 AM [facility] REPOSITORY TYPE CODE TESTS RESULT OUT OF RANGE REFERENCE UNITS LAB L102.0000 0-15 mm/hr Normal SED RATE 2 Performed By: #### L101.9900, L100.0100 #### [facility] [address] [place], [place], [id number] CBC W/DIFF, AUTOMATED Collected: 08/06/2018 Status: F Source: [place] 9:30 AM [facility] REPOSITORY TYPE CODE TESTS RESULT OUT OF RANGE REFERENCE UNITS LAB L100.1000 4.4-11.0 K/mm3 Normal WBC 9.0 LAB L100.1200 4.6-6.2 M/mm3 Normal RBC 4.90 LAB L100.1300 13.0-16.5 g/dl Normal HGB 14.6 LAB L100.1400 40-54 % Normal HCT 42.9 LAB L100.1500 80-94 fL Normal MCV 87.6 LAB L100.1600 27.0-32.0 pg Normal MCH 29.8 LAB L100.1700 32-36 g/gl Normal MCHC 34.0 LAB L100.1810 11.6-14.6 % Normal RDW CV 11.8 LAB L100.1820 35.1-43.9 fl Normal RDW SD 37.4 LAB L100.1900 150-450 K/mm3 Normal PLT 187 LAB L100.2000 6.2-12.0 fl Normal MPV 11.3 LAB L100.2100 47-70 % Normal NEUT% 61.1 LAB L100.2200 19-41 % Normal LY% 27.9 LAB L100.2300 0-10 % Normal MONO% 8.2 LAB L100.2400 0-5 % Normal EO% 2.2 LAB L100.2500 0-1 % Normal BASO% 0.4 LAB L100.2550 0.0-0.9 % Normal IM GRAN % 0.200 Result Comment: IG% - Immature Granulocytes (promyelocytes, myelocytes and metamyelocytes) > 1% indicates that a LEFT SHIFT is Present. LAB L100.2620 2.0-7.7 X10 3/uL Normal Absolute Neut 5.5 LAB L100.2720 0.83-4.51 X10 3/ul Normal Absolute Lymph 2.51 Performed By: #### L101.9900, L100.0100 #### [facility] [address] [place], [address] COMPREHENSIVE METABOLIC Collected: 08/06/2018 Status: F Source: [facility] 9:30 AM [facility] REPOSITORY Order Comment: Comments: R PLANTAR TYPE CODE TESTS RESULT OUT OF RANGE REFERENCE UNITS LAB L501.0100 74-106 mg/dL High GLU 335 Result Comment: Glucose result greater than or equal to 200 mg/dL suggests DIABETES MELLITUS per A.D.A. criteria. Please note revised GLUCOSE reference range effective 2017. LAB L501.1000 7-18 mg/dL Normal BUN 15 LAB L501.1100 0.70-1.30 mg/dL Normal CREAT,SERUM 0.89 Result Comment: The validity of the calculated GFR AND GFRAA in patients over 70 years has not been determined. Clinical correlation is essential. LAB L501.1110 >60 mL/min Normal EST GFR 104 Result Comment: Non- GFR Calc LAB L501.1115 >60 mL/min Normal EST GFR - AA 126 Result Comment: GFR Calc LAB L501.1255 ml/min Normal Estimated CRCL 137.26 LAB L501.1300 10-20 RATIO BUN/CRE Normal 16.9 LAB L501.1500 6.4-8. g/dL 2 T PROT Normal 7.0 LAB L501.1800 3.2-5. g/dL 0 ALB Normal 3.8 LAB L501.1950 2.2-4. g/dL 2 GLOB Normal 3.2 LAB L501.2000 0.9-2. RATIO 4 A/G Normal 1.2 LAB L501.2200 8.5-10 mg/dL .1 CA Normal 8.9 LAB L501.4100 15-37 U/L Low AST 9 LAB L501.4305 45-117 U/L High ALK P 125 LAB L501.4405 16-61 U/L ALT Normal 24 LAB L501.4600 0.20-1 mg/dL .00 T BILI Normal 0.40 LAB L501.5300 136-14 mmol/L 5 NA Normal 138 LAB L501.5600 3.5-5. mmol/L 1 K Normal 4.0 LAB L501.5900 98-107 mmol/L CL Normal 102 LAB L501.6100 21.0-3 mmol/L 2.0 CO2 Normal 26.0 LAB L501.6200 5-15 GAP Normal 10 Performed By: #### L500.4050, L506.0500 #### [facility] [address] [place], [address] PREALBUMIN Collected: 08/06/2018 Status: F Source: [place] 9:30 AM [facility] REPOSITORY Order Comment: Comments: R PLANTAR TYPE CODE TESTS RESULT OUT OF RANGE REFERENCE UNITS LAB L506.0500 20.0-40.0 mg/dL Normal PREALBUMIN 21.1 Performed By: #### L500.4050, L506.0500 #### [facility] [address] [place], [address] HEMOGLOBIN A1C Collected: 08/06/2018 Status: F Source: [place] 9:30 AM [facility] REPOSITORY TYPE CODE TESTS RESULT OUT OF RANGE REFERENCE UNITS LAB L501.9985 4.2-6.3 % High HGB A1C 10.4 Performed By: #### L501.9985 #### [facility] [address] [facility] [facility] [place], [address] MRSA WOUND DNA BY Collected: 08/06/2018 Status: F Source: [place] PCR 9:30 AM [facility] REPOSITORY Order Comment: Comments: R PLANTAR Specimen Source? R PLANTAR TYPE CODE TESTS RESULT OUT OF RANGE REFERENCE UNITS LAB L8200.1100 Negative Normal MRSA Negative RESULT LAB L8200.1150 Negative Normal SA RESULT NEGATIVE Performed By: #### L8200.1075 #### [facility] [address] [place], [address] Observed: 08/06/2018 Status: P Source: [place] CULTURE, DEEP WOUND 9:15 AM [facility] REPOSITORY Comments: R PLANTAR Gram Stain Gram Stain 1+ White Blood Cells No organisms seen Wound Culture No growth aerobically. Cult, Anaerobic Checking for anaerobes, further studies to follow. Performed By: #### M100.1500 #### [facility] [address] [place] [address]. [place], [address] FOOT MIN 3 VIEWS Observed: 07/30/2018 Status: F Source: [place] 11:44 AM [facility] REPOSITORY [facility] Imaging Services [address] [place] [address] Foot min 3 Views MR#: [id number] Acct: [id number] Name: SARAH RAMAN Rep #: [id number] : 1985 M 33 From: Neil Bolton MD PCP: Magdiel Hurst MD Status: REG RCR Study: Foot min 3 Views Date of Exam: 07/30/18 Exam# [id number] Ordering Dr: George Meredith DPM STUDY: X-RAY [...] , CC: YUMIKO Meredith; Magdiel Hurst MD Lunch Cook: Signed MRSA WOUND DNA BY Collected: 07/30/2018 Status: F Source: [place] PCR 10:45 AM [facility] REPOSITORY Order Comment: Specimen Source? RIGHT FOOT TYPE CODE TESTS RESULT OUT OF RANGE REFERENCE UNITS LAB L8200.1100 Negative Normal MRSA Negative RESULT LAB L8200.1150 Negative Normal SA RESULT NEGATIVE Performed By: #### L8200.1075 #### [facility] [address] [place], [address] Observed: 07/30/2018 Status: F Source: [place] CULTURE, DEEP WOUND 10:45 AM [facility] REPOSITORY Gram Stain Gram Stain 2+ Red Blood Cells Rare White Blood Cells No organisms seen Wound Culture No growth aerobically. Cult, Anaerobic No growth in 5 days. Performed By: #### M100.1500 #### [facility] [address] [place], [address] LOWER EXT ARTERIAL Observed: 06/30/2018 Status: F Source: [place] STUDY 8:50 PM [facility] REPOSITORY [facility] Cardiovascular Services [address] [place] [address] 06/30/182043 MR#: [id number] Acct: [id number] Name: SARAH RAMAN Rep #: [id number] : 1985 33 From: Lenard Pulliam MD Attending Dr: Sheridan Martinez DPM Status: REG CLI Ordering Dr: Date: 06/30/18 Location: [facility] Sex: M C Admitted: Arterial Study - [...] MD> Date Lenard Pulliam MD CC: Sheridan Martinez DPM; Magdiel Hurst MD Date Dictated: 06/30/182043 Date Transcribed: 06/30/182043 Lunch Cook: MIGUELITO Hernandez MICROALB:CREAT Collected: 06/23/2018 Status: F Source: [place] RATIO,RANDOM UR 10:34 AM [facility] REPOSITORY TYPE CODE TESTS RESULT OUT OF RANGE REFERENCE UNITS LAB L501.1200 NO RANGE EST. mg/dL Normal UR CREAT 135.00 LAB L502.0500 NO RANGE EST. mg/L Normal 8.7 MICROALBUMIN ,UR LAB L502.0600 <30 mg/g CRE mg/g CRE Normal 6.4 MALB:CREAT Performed By: #### L502.0250 #### [facility] [address] [place], [address] HEMOGLOBIN A1C Collected: 06/23/2018 Status: F Source: [place] 10:34 AM [facility] REPOSITORY TYPE CODE TESTS RESULT OUT OF RANGE REFERENCE UNITS LAB L501.9985 4.2-6.3 % High HGB A1C 8.9 Performed By: #### L501.9985 #### [facility] [address] [place], [address] COMPREHENSIVE METABOLIC Collected: 06/23/2018 Status: F Source: [place] PROFIL 10:34 AM [facility] REPOSITORY TYPE CODE TESTS RESULT OUT OF [...] 5 Performed By: #### L500.4050, L500.4100 #### [facility] [address] [place], [place], [address] LIPID PROFILE Collected: 06/23/2018 Status: F Source: [place] 10:34 AM [facility] REPOSITORY TYPE CODE TESTS RESULT OUT OF [...] 16 Performed By: #### L500.4050, L500.4100 #### [facility] [address] [place], [address] WOUND CTR HISTORY Observed: 05/21/2018 Status: F Source: [place] AND PHYSICAL 1:31 PM [facility] REPOSITORY [facility] [address] [place] [address] Wound Ctr History AND Physical 05/21/18 1315 MR#: [id number] Acct: [id number] Name: SARAH RAMAN Rep #: [id number] : 1985 33 From: George Meredith DPM [...] Recorded Date Recorded By Document 05/21/18 09:[address] [facility] [id number] 05/21/18 09:[address] [facility] Wound Center Nurse 1 WC - Nurse 2 - General Ulcer CM Notes Start: 05/21/18 09:21 Freq: Status: Active Protocol: Activity Type Activity Date Activity User E-Sign Co-Sign Detail Recorded Client Recorded Date Recorded By Document 05/21/18 09:59 DV [id number] 05/21/18 10:06 [facility] W[facility] Nurse 2 [...] Date Recorded By Document 05/21/18 09:59 DV [id number] 05/21/18 10:06 [facility] Wound [facility] Nurse 2 [...] Status: F Source: [place] PCR 10:00 AM [facility] REPOSITORY Order Comment: Specimen Source? [place] TYPE CODE TESTS RESULT OUT OF RANGE REFERENCE UNITS LAB L8200.1100 Negative Normal MRSA Negative RESULT LAB L8200.1150 Negative Normal SA RESULT NEGATIVE Performed By: #### L8200.1075 #### [facility] [address] [facility] [place], [place], [address] Observed: 05/21/2018 Status: F Source: [place] CULTURE, WOUND 10:00 AM [facility] REPOSITORY Gram Stain Gram Stain No organisms seen Wound Culture No growth aerobically. Performed By: #### M100.1400 #### [facility] [address] [facility] [place], [place], [address] WOUND Observed: 05/19/2018 Status: F Source: [place] CULTURE/STAIN 6:[address] [facility] REPOSITORY Sp. Request/Comment: - Swab Smear Result [...] <=0.5 F Performed By: #### WCUL #### [facility] [employer] [address] [place], [place] [address] PROGRESS Observed: 05/18/2018 Status: COMPLETED Source: [place] 5:45 PM [facility] REPOSITORY HNO ID: [id number] Author: Andres Cheatham Service: (none) Author Type: [...] inpn Administer 45 units at bedtime Insulin Patton, Disposable, (BD ULTRAFINE III MINI PEN) 31 [...] He has an appointment with a new die maker bench stamping in a couple weeks. He was seeing wound care for his callus before it ruptured. He agrees to get f/u with one of them this week. MD MALIA Herrera Observed: 05/18/2018 Status: COMPLETED Source: [place] 5:30 PM [facility] REPOSITORY Office Visit (WSTR) SARAH RAMAN ([id number]) 1985 M Date Time Provider Department 05/18/18 5:30 PM [facility]RES CHEATHAM [facility] During your visit today, we recorded the [...] inpn Administer 45 units at bedtime Insulin Patton, Disposable, (BD ULTRAFINE III MINI PEN) 31 [...] He has an appointment with a new die maker bench stamping in a couple weeks. He was seeing [...] CULTURE AND GRAM STAIN [SQWCUL] Order #: [id number] Prescriptions as of 05/18/2018 Sig: INSULIN GLARGINE [...] Status: F Source: [place] REPORT 8:26 AM [facility] REPOSITORY [facility] [address] [place] [address] [address] [place] [address] OFFICE VISIT Date of Service: 05/14/18 MR#: [id number] Acct: [id number] Name: SARAH RAMAN Rep #: [id number] : 1985 Provider: Mirna Oliveira NP Age/Sex: 33/M Location: [facility] Status: Signed HPI History of present illness [...] which tunnels underneath. Does not have a die maker bench stamping. Feet have intermittent numbness now. Pt denies [...] Sitting Intake Visit Reasons: 3 M FU Second Steward Required: No Accompanied by: Self Allergies cefprozil [...] 05/14/18] pen needle, diabetic 31 gauge x 3/16 See Dose Instructions .ROUTE .MEDSUPPLY #150 ea 02/11/18 [Rx Confirmed 05/14/18] flash glucose scanning reader See Dose Instructions .ROUTE .MEDSUPPLY #1 ea 02/22/18 [Rx Confirmed 05/14/18] flash glucose sensor kit See Dose Instructions .ROUTE .MEDSUPPLY #3 ea 02/22/18 [Rx Confirmed 05/14/18] Nurse's Note: blood sugars : low : 47 high : 423 [facility] Medical History Type 1 diabetes mellitus [...] heal. He is asking to see a die maker bench stamping instead of wound center. Referral made and [...] 2, uncontrolled, with complications E11.8; E11.65 05/16/18 0826 <Electronically signed by Mirna FIGUEROA> Date Mirna FIGUEROA Cosigner Signature: Date (if applicable) CC: ENDOCRINOLOGY VISIT Observed: 02/22/2018 Status: F Source: [place] REPORT 4:54 PM [facility] REPOSITORY [facility] [address] [place] [address] OFFICE VISIT Date of Service: 02/11/18 MR#: [id number] Acct: [id number] Name: SARAH RAMAN Rep #: [id number] : 1985 Provider: Mirna Oliveira NP Age/Sex: 32/M Location[place] [facility] Status: Signed HPI History of present illness [...] which tunnels underneath. Does not have a die maker bench stamping. Feet have intermittent numbness now. Pt denies [...] Position Sitting Intake Visit Reasons: Diabetes follow-up Second Steward Required: No Accompanied by: Self Is patient [...] appointments with data for review. Works in [employer]; needs a way to checks BG while working so many hours to keep in good control. Will order khoi sensor Orders Orders: Plan Detail Other Orders Orders: Other Medications New: insulin aspart U- (Novolog Flexpen U-) 30 units with each meal + sliding scale, uE10.65 p to 120 units qd SC QPM insulin glargine (U-100) (Basaglar KzmaWlu53 units (0.3 mL) Sub-Q QDAY E10.65 U-100 [...] CC: PROGRESS Observed: 12/12/2017 Status: COMPLETED Source: [place] 12:31 PM [facility] REPOSITORY HNO ID: [id number] Author: Rachele Clement Service: (none) Author Type: [...] inpn Administer 45 units at bedtime Insulin Patton, Disposable, (BD ULTRAFINE III MINI PEN) 31 [...] symptoms occur. Patient agreeable to treatment plan. YEIMI CarusoOV Observed: 12/12/2017 Status: COMPLETED Source: [place] 12:15 PM [facility] REPOSITORY Office Visit (UCWSTR) SARAH RAMAN ([id number]) 1985 M Date Time Provider Department 12/12/17 12:15 PM RACHELE CLEMENT (FLYNN) WSTR During your visit today, we recorded the following information about you: Temperature Pulse Respiration Blood pressure 97.1 degrees 78/minute 16/minute 122/64 Weight 82.6 kg Rachele Clement APRN.CNP 12/12/2017 1:39 PM Signed Subjective HPI HPI Sarah Keo Raman is a 32 year old male who presents today for CC of right eye redness/drainage. This started 1 day ago. Has tried nothing. Symptoms are worsened by nothing. Risk factors works in [employer]. - no injury to right eye noted. [...] inpn Administer 45 units at bedtime Insulin Patton, Disposable, (BD ULTRAFINE III MINI PEN) 31 gauge x 316 ndle Use one needle for each dose. [...] 0 12/12/2017 12/22/2017 Cmt: May transfer to Hycl[place] if less expensive. Route: ORAL Sig: Take 1 tablet by mouth twice daily for 10 days. Letter Text [place] [facility] Rachele Clement CNP [address] [place], [place] [address] 12/12/2017 Sarah Raman CCF# [id number] [address] [facility] [address] TO WHOM IT MAY CONCERN: This is to confirm that Sarah Rmaan had an appointment and was seen at the [facility] in the Department of Urgent Care by Rachele Clement CNP on 12/12/2017. Diagnosis conjunctivitis. Sincerely yours, Rachele Clement CNP Encounter Status:Closed by RACHELE CLEMENT CNP on 12/12/17 ALLERGIES ALLERGIES DATE TYPE / CODE NAME / CODE REACTION SEVERITY SOURCE 05/21/2018 Drug cefprozil/F0060 Unknown Unknown [place] Allergy/[id number](S 87179(RXNORM) [facility]) Hospital Repository 05/14/2018 Miscellaneous industrial glue Unknown Unknown [place] Allergy/621501842([facility]) Hospital Repository 11/25/2006 Miscellaneous OTHER [place] Allergy/[id number]([facility]) [place] Repository 05/03/2005 DRUG CEFPROZIL [place] INGREDI/[id number]([facility]) [place] Repository ENCOUNTERS ENCOUNTERS ADMIT/DISCHARGE ACCOUNT ADMITTING ENCOUNTER LOCATION SOURCE NUMBER CLASS 08/06/2018 [id number] [facility] ing: Repository 07/09/2018/07/13/[id number] ing:[place] Repository 06/23/2018 [id number] [facility] ing:[facility] Repository 06/11/2018/06/12/[id number] ing:[place] Repository 05/18/2018/05/19/[id number] Repository 05/14/2018/05/14/20 [id number] Amb[facility] [place] [facility] 04/23/2018 [id number] [place] [facility] ing: Repository 03/19/2018/04/12/20 [id number] Ambulatory [place] [address] [facility] ing: Repository 02/11/2018/02/12/20 [id number] Ambulatory BMSBuilding:B [place] [address] Repository 12/12/2017/12/16/19 [id number] Amb[address] Repository PAYERS PAYERS ENCOUNTER GUARANTOR PAYER SUBSCRIBER SOURCE 08/06/2018 SARAH S Primary SARAH S [place] [id number] Insurance:CARESOURCEP LEIGHTYDOB: Replaced by [facility] Number: [id number] [id number] Repository [address]Wvo: ([phone]) Date:2018-06-13 O [phone] () [address]ATTN: [place] [address]KU: 08/06/2018 Secondary NOT GIVENUNK [place] Insurance:SELF PAY [facility] Number: Effective Repository Date:2018-07-14 07/09/2018 SARAH S Primary SARAH S [place] [id number] Insurance:CARESOURCEP LEIGHTYDOB: Replaced by [facility] Number: [id number] [place], [place] [id number] Repository [address]Rpw: ([phone]) Date:2018-06-13 O [phone] () [address]ATTN: [place] [address]OJ: 07/09/2018 Secondary NOT GIVENUNK [place] Insurance:SELF PAY [facility] Number: Effective Repository Date:2018-06-13 06/23/2018 SARAH S Primary SARAH S [place] [id number] Insurance:CARESOURCEP LEIGHTYDOB: Replaced by [facility] Number: [id number] [place], [place] [id number] Repository [address]Qdi: ([phone]) Date:2018-06-17P O [phone] (HP) [address]ATTN: [place] [address]AJ: 06/23/2018 Secondary NOT GIVENUNK [place] Insurance:SELF PAY [facility] Number: Effective Repository Date:2018-06-17 06/11/2018 SARAH S Primary SARAH [place] [id number] Insurance:BUCKEYE LEIKHOITYDOB: [facility] [id number] [place] PLANPolicy Number: Repository [id number]: 330 [id number] [phone] () Date:[id number] [address] [place] [address]LD: 06/11/2018 Secondary NOT GIVENUNK [place] Insurance:SELF PAY [facility] Number: Effective Repository Date:2018-05-19 05/14/2018 SARAH Primary SARAH [place] [id number] Insurance:BUCKEYE SUDEEPDOB: [facility] [id number] [place], [place] PLANPolicy Number: Repository [id number]: 330 [id number] [phone] () Date:[id number] [address] [place] [address] 20204KB: 05/14/2018 Secondary NOT GIVENUNK [place] Insurance:SELF PAY [facility] Number: Effective Repository Date:2018-05-14 04/23/2018 SARAH Primary SARAH [place] [id number] Insurance:BUCKEYE SUDEEPDOB: [facility] [id number] [place] PLANPolicy Number: Repository [id number]: 330 [id number] [phone] () Date:[id number] [address] [place] [address] [id number]: 04/23/2018 Secondary NOT GIVENUNK [place] Insurance:SELF PAY [facility] Number: Effective Repository Date:2018-04-13 03/19/2018 [facility] SARAH Fofana [id number] Insurance:GONZÁLEZ KAPADIA: [id number] Number: Repository [id number]: 330 [id number] [phone] () Date:[id number] [address] [place] [address] [id number]: 03/19/2018 Secondary NOT GIVENUNK [place] Insurance:SELF PAY [facility] Number: Effective Repository Date:2018-03-13 02/11/2018 [facility] SARAH Fofana [id number] Insurance:GONZÁLEZ ROACHB: [facility] [id number] Number: Repository [id number]: 330 [id number] [phone] () Date:[id number] [address] [place] [address] [id number]: 02/11/2018 Secondary NOT GIVENUNK [place] Insurance:SELF PAY [facility] Number: Effective Repository Date:2018-02-11
== END 2018-08-13 23:59 ==
LOC: WC 08:15
PROVIDERS: Family Provider Internal Medicine; PCP Internal Medicine; Referring Provider Podiatrist; Visit Provider Podiatrist
DX: E10.621 Type 1 diabetes mellitus with foot ulcer (principal); L97.512 Non-pressure chronic ulcer of other part of right foot with fat layer exposed; R60.0 Localized edema; M79.671 Pain in right foot
CPT/HCPCS: 11042; 73630; 80053; 83036; 84134; 85025; 85652; 87070; 87075; 87205; 87640

== ENCOUNTER 2018-09-10 08:15 | Outpatient (RCR) | payer MEDICAID, SELFPAY ==
[2018-08-14 01:24] VITALS: BP 93/67; PULSE 109; RESP 18; TEMP 36.7
[2018-08-20 08:12] VITALS: BP 109/66; PULSE 90; RESP 18; TEMP 36.2; BMI 24.6
--- NOTE | 2018-08-20 08:34 | PCM.WC.PN ---
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 (2) Diabetes mellitus type 1 Status: Acute Current Visit: No Code(s): E10.9 - Type 1 diabetes mellitus without complications (3) Pain in right foot Status: Acute Current Visit: No Code(s): M79.671 - Pain in right foot (4) Delayed wound healing Status: Acute Current Visit: No Code(s): T14.8XXD - Other injury of unspecified body region, subsequent encounter Type of Wound Chief Complaint: right plantar foot ulcer History of Wound: This 33-year-old diabetic male presents to the wound healing center for ulcer sub-right fifth metatarsal head that he states re-opened after stepping on one of his kids toys a little over a week ago. He says he tried to use old jessica and keep the area offloaded, but he says he was not noticing any improvement and wanted to have the area evaluated in clinic again before it got any worse. He relates that he was walking barefoot at the time of injury. He also says he failed to make an appointment as instructed at his previous discharge in order to be measured for a pair of offloading diabetic shoes. He denies any purulence, surrounding or extending redness, or increase in warmth. He does relate the area is painful at times. Progress of Wound: Ulcer plantar lateral 5th met head stable. Patient finished prescribed antibiotic, staying off of his feet as much as possible, and having daily jessica dressing changes. Patient has been wearing offloading surgical shoe as well as offloading CAM walker and applying daily dressing changes as instructed with jessica. Patient denies any feelings, of nausea, vomiting, fever, or chills today. - Physical Exam Vital Signs Temp Pulse Resp BP 97.1 F L 90 18 109/66 08/20/18 08:12 08/20/18 08:12 08/20/18 08:12 08/20/18 08:12 General: Alert, Oriented x3, Cooperative, No apparent distress Extremities: Capillary Refill Less than 3 Seconds, No Calf Tenderness, Diminished Peripheral Pulses - Negative Sean and Sanders sign DP and PT pulses palpable bilateral, Edema - Mild lower extremity edema Skin: Ulcer/ Wound - Ulcer sub-right fifth met head with fat layer exposed. Measurements are noted below. The base is noted to be a mixture of adherent slough, fibrin, granular tissue, as well as some slight surrounding hyperkeratotic tissue. There is no probing to bone, no tracking or undermining following debridement, no purulence, no streaking cellulitis. No surrounding erythema or increased warmth noted this week. Wound Measurements and Assessment WC - Nurse 1 - General Ulcer Measurement Start: 08/20/18 08:12 Freq: Status: Active Protocol: Activity Type Activity Date Activity User E-Sign Co-Sign Detail Recorded Client Recorded Date Recorded By Document 08/20/18 08:12 AN [id number] 08/20/18 08:23 AN 08/20/18 08:12 Wound Center Nurse 1 [Ulcer Assessment] #2 right plantar foot -Current Size (cm) - Length 0.3 -Current Size (cm) - Width 0.2 -Current Size (cm) - Depth 0.1 -Total Square Cm 0.06 -Photo Taken No -Epithelialization None Present -Tunneling No -Undermining/Tunneling No -Classification - Thickness Partial Thickness -Exudate Amt None Present -Wound Margin Distinct, Outline Attached -Granulation Amt None Present (0 %) -Slough/Fibrin No -Necrosis Amt Large (67-100%) -Necrotic Tissue Type Eschar -Texture (Yu-wound Skin Appearance) Assessed -Moisture (Yu-wound Skin Appearance Assessed ) -Color (Yu-wound Skin Appearance) Assessed -Temperature (Yu-wound Skin No Abnormality Appearance) (Pt Warm) -Tenderness on Palpation (Yu-wound No Skin Appearance) -Ulcer Cleansing Rinsed/ Irrigated with Saline -Foul Odor after Cleansing No -Anesthetic Used 5% Lidocaine Gel [Edema Assessment] -Right Calf (cm) 37.3 -Right Ankle (cm) 23 Musculoskeletal: Tenderness - Very minor tenderness with manipulation of ulcer site Neurological: Sensory exam intact to light touch and pain, - - Patient does have some slight altered protective sensation to the right foot Psych/Mental Status: Normal Affect, Appropriate Debridement Note Wound debrided: Right plantar lateral fifth metatarsal head Laterality: Right Type of Debridement: Excisional debridement Anesthesia Used: 4% Lidocaine Solution Depth: in the subcutaneous layer Percentage of wound debrided: 100 Instrument Used: #15 blade Tissue Removed: Adherent slough, fibrin, biofilm, hyperkeratotic tissue Severity: Fat Layer Exposed Amount of bleeding with debridement: Mild Bleeding Controlled with: Pressure Patient tolerated procedure well Assessment/Plan Assessment: Ulcer right sub-fifth met head. DM. Pain right foot Plan: Patient was examined and evaluated again today for follow up of ulcer to plantar lateral 5th met head. Ulcer site is improved this week. Patient finished doxycycline as prescribed. Subcutaneous debridement was performed as noted in the clinical panel. Once complete, the ulcer site was carefully cleansed and then dressed with slightly moistened Jessica to the base followed by dry sterile dressing. The patient was instructed to continue with offloading the ulcer site with the assistance of the surgical shoe with offloading insert. The importance of continued offloading was discussed at great length again today and the patient says he has been doing well wearing his offloading surgical shoe as well as offloading CAM walker. I continue to recommended nutritional supplementation with a high-protein diet in order to optimize wound healing potential for this patient. Importance of tight glycemic control was stressed to the patient today. Smoking cessation was discussed with this patient today. 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 Patient was educated on all signs and symptoms of local and systemic infection, and he was instructed to go to the emergency room immediately should he notice any. All other questions were answered to the patient's satisfaction. Patient will follow-up in clinic in 1 week to check on progress, or sooner if needed.
[2018-08-27 08:35] VITALS: BP 117/75; PULSE 94; RESP 18; TEMP 37; BMI 24.6
--- NOTE | 2018-08-27 09:21 | PCM.WC.PN ---
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 (2) Diabetes mellitus type 1 Status: Chronic Current Visit: No Qualifiers: Diabetes mellitus complication status: with unspecified complications Qualified Code(s): E10.8 - Type 1 diabetes mellitus with unspecified complications Code(s): E10.9 - Type 1 diabetes mellitus without complications (3) Pain in right foot Status: Acute Current Visit: No Code(s): M79.671 - Pain in right foot (4) Delayed wound healing Status: Acute Current Visit: No Code(s): T14.8XXD - Other injury of unspecified body region, subsequent encounter Type of Wound Chief Complaint: right plantar foot ulcer History of Wound: This 33-year-old diabetic male presents to the wound healing center for ulcer sub-right fifth metatarsal head that he states re-opened after stepping on one of his kids toys a little over a week ago. He says he tried to use old jessica and keep the area offloaded, but he says he was not noticing any improvement and wanted to have the area evaluated in clinic again before it got any worse. He relates that he was walking barefoot at the time of injury. He also says he failed to make an appointment as instructed at his previous discharge in order to be measured for a pair of offloading diabetic shoes. He denies any purulence, surrounding or extending redness, or increase in warmth. He does relate the area is painful at times. Progress of Wound: Ulcer plantar lateral 5th met head slightly improved this week. Patient staying off of his feet as much as possible, and having daily jessica dressing changes. Patient has been wearing offloading surgical shoe as well as offloading CAM walker and applying daily dressing changes as instructed with jessica. Patient denies any feelings, of nausea, vomiting, fever, or chills today. - Physical Exam Vital Signs Temp Pulse Resp BP 98.6 F 94 18 117/75 08/27/18 08:35 08/27/18 08:35 08/27/18 08:35 08/27/18 08:35 General: Alert, Oriented x3, Cooperative, No apparent distress Extremities: Capillary Refill Less than 3 Seconds, No Calf Tenderness - Negative Sean and Sanders sign, Edema - Mild lower extremity edema, Peripheral Pulses Normal - DP and PT pulses palpable bilateral Skin: Ulcer/ Wound - Ulcer sub-right fifth met head with fat layer exposed. Measurements are noted below. The base is noted to be a mixture of adherent slough, fibrin, granular tissue, as well as some slight surrounding hyperkeratotic tissue. There is no probing to bone, no tracking or undermining following debridement, no purulence, no streaking cellulitis. Wound Measurements and Assessment WC - Nurse 1 - General Ulcer Measurement Start: 08/20/18 08:12 Freq: Status: Active Protocol: Activity Type Activity Date Activity User E-Sign Co-Sign Detail Recorded Client Recorded Date Recorded By Document 08/27/18 08:35 AN [id number] 08/27/18 08:45 AN 08/27/18 08:35 Wound Center Nurse 1 [Ulcer Assessment] #2 right plantar foot -Current Size (cm) - Length 0.1 -Current Size (cm) - Width 0.1 -Current Size (cm) - Depth 0.1 -Total Square Cm 0.01 -Date of Last Picture (Recall this 08/27/18 field) -Photo Taken Yes -Tunneling No -Undermining/Tunneling No -Exudate Amt None Present -Wound Margin Flat & Intact -Granulation Amt None Present (0 %) -Necrosis Amt Large (67-100%) -Necrotic Tissue Type Eschar -Temperature (Yu-wound Skin No Abnormality Appearance) (Pt Warm) -Tenderness on Palpation (Yu-wound Yes Skin Appearance) -Ulcer Cleansing Rinsed/ Irrigated with Saline -Foul Odor after Cleansing No -Anesthetic Used 5% Lidocaine Gel WC - Nurse 2 - General Ulcer CM Notes Start: 08/20/18 08:12 Freq: Status: Active Protocol: Activity Type Activity Date Activity User E-Sign Co-Sign Detail Recorded Client Recorded Date Recorded By Document 08/27/18 09:12 DV [id number] 08/27/18 09:16 DV 08/27/18 09:12 Wound Center Nurse 2 [Procedure/Treatment] -Time 09:14 -Correct Patient Yes -Correct Side, Site, Position Yes -Correct Procedure Yes -Procedure Performed Yes -Type of Procedure Debridement -Clinical Debridement Subcutaneous -Post Debridement Size (cm) - Length 0.6 -Post Debridement Size (cm) - Width 0.2 -Post Debridement Size (cm) - Depth 0.2 -Total Square Cm 0.12 -Wound/Ulcer Outcome Not Healed -Ulcer Cleansing Rinsed/ Irrigated with Saline -Foul Odor after Cleansing No -Bioengineered Tissue No -Bleeding Controlled with Pressure -Offloading No -Type of Offloading Surgical Shoe -Treatment Response Procedure Tolerated Well [See Physician Procedure note for Specifics] Pain Scale: 0-10 Numeric [Pain] -Is Patient Pain Free? Yes Musculoskeletal: Tenderness - Slight tenderness with manipulation of ulcer site Neurological: Sensory exam intact to light touch and pain, - - Patient does have some slight altered protective sensation to the right foot Psych/Mental Status: Normal Affect, Appropriate Debridement Note Post-Debridement Measurements/Treatment WC - Nurse 2 - General Ulcer CM Notes Start: 08/20/18 08:12 Freq: Status: Active Protocol: Activity Type Activity Date Activity User E-Sign Co-Sign Detail Recorded Client Recorded Date Recorded By Document 08/20/18 08:33 DV [id number] 08/20/18 08:45 DV Document 08/27/18 09:12 DV [id number] 08/27/18 09:16 DV 08/20/18 08/27/18 08:33 09:12 Wound Center Nurse 2 #2 right plantar foot -Time 08:33 09:14 -Correct Patient Yes Yes -Correct Side, Site, Position Yes Yes -Correct Procedure Yes Yes -Procedure Performed Yes Yes -Type of Procedure Debridement Debridement -Clinical Debridement Subcutaneous Subcutaneous -Post Debridement Size (cm) - Length 0.7 0.6 -Post Debridement Size (cm) - Width 0.4 0.2 -Post Debridement Size (cm) - Depth 0.2 0.2 -Total Square Cm 0.28 0.12 -Wound/Ulcer Outcome Not Healed Not Healed -Ulcer Cleansing Rinsed/ Rinsed/ Irrigated with Irrigated with Saline Saline -Foul Odor after Cleansing No No -Bioengineered Tissue No No -Bleeding Controlled with Pressure Pressure -Offloading No No -Type of Offloading Surgical Shoe Surgical Shoe -Treatment Response Procedure Procedure Tolerated Well Tolerated Well Pain Scale: 0-10 Numeric Is Patient Pain Free? Yes Yes Wound debrided: Right plantar lateral fifth metatarsal head Laterality: Right Type of Debridement: Excisional debridement Anesthesia Used: 4% Lidocaine Solution Depth: in the subcutaneous layer Percentage of wound debrided: 100 Instrument Used: #15 blade Tissue Removed: Adherent slough, fibrin, biofilm, hyperkeratotic tissue Severity: Fat Layer Exposed Amount of bleeding with debridement: Mild Bleeding Controlled with: Pressure Patient tolerated procedure well Assessment/Plan Assessment: Ulcer right sub-fifth met head. DM. Pain right foot Plan: Patient was examined and evaluated again today for follow up of ulcer to plantar lateral 5th met head. Ulcer site is slightly improved this week. Subcutaneous debridement was performed as noted in the clinical panel. Once complete, the ulcer site was carefully cleansed and then dressed with slightly moistened Jessica to the base followed by dry sterile dressing. The patient was instructed to continue with offloading the ulcer site with the assistance of the surgical shoe with offloading insert. The importance of continued offloading was discussed at great length again today and the patient says he has been doing well wearing his offloading surgical shoe as well as offloading CAM walker. Extra felt padding dispensed to patient and he can add this to his surgical shoe as needed. I continue to recommended nutritional supplementation with a high-protein diet in order to optimize wound healing potential for this patient. Importance of tight glycemic control was stressed to the patient today. Smoking cessation was discussed with this patient today. 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 Patient was educated on all signs and symptoms of local and systemic infection, and he was instructed to go to the emergency room immediately should he notice any. All other questions were answered to the patient's satisfaction. Patient will follow-up in clinic in 1 week to check on progress, or sooner if needed.
--- NOTE | 2018-08-27 09:28 | PN.PCM_ITS ---
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 (2) Diabetes mellitus type 1 Status: Chronic Current Visit: No Qualifiers: Diabetes mellitus complication status: with unspecified complications Qualified Code(s): E10.8 - Type 1 diabetes mellitus with unspecified complications Code(s): E10.9 - Type 1 diabetes mellitus without complications (3) Pain in right foot Status: Acute Current Visit: No Code(s): M79.671 - Pain in right foot (4) Delayed wound healing Status: Acute Current Visit: No Code(s): T14.8XXD - Other injury of unspecified body region, subsequent encounter Type of Wound Chief Complaint: right plantar foot ulcer History of Wound: This 33-year-old diabetic male presents to the wound healing center for ulcer sub-right fifth metatarsal head that he states re-opened after stepping on one of his kids toys a little over a week ago. He says he tried to use old jessica and keep the area offloaded, but he says he was not noticing any improvement and wanted to have the area evaluated in clinic again before it got any worse. He relates that he was walking barefoot at the time of injury. He also says he failed to make an appointment as instructed at his previous discharge in order to be measured for a pair of offloading diabetic shoes. He denies any purulence, surrounding or extending redness, or increase in warmth. He does relate the area is painful at times. Progress of Wound: Ulcer plantar lateral 5th met head slightly improved this week. Patient staying off of his feet as much as possible, and having daily jessica dressing changes. Patient has been wearing offloading surgical shoe as well as offloading CAM walker and applying daily dressing changes as instructed with jessica. Patient denies any feelings, of nausea, vomiting, fever, or chills today. - Physical Exam Vital Signs Temp Pulse Resp BP 98.6 F 94 18 117/75 08/27/18 08:35 08/27/18 08:35 08/27/18 08:35 08/27/18 08:35 General: Alert, Oriented x3, Cooperative, No apparent distress Extremities: Capillary Refill Less than 3 Seconds, No Calf Tenderness - Negative Sean and Sanders sign, Edema - Mild lower extremity edema, Peripheral Pulses Normal - DP and PT pulses palpable bilateral Skin: Ulcer/ Wound - Ulcer sub-right fifth met head with fat layer exposed. Measurements are noted below. The base is noted to be a mixture of adherent slough, fibrin, granular tissue, as well as some slight surrounding hyperkeratotic tissue. There is no probing to bone, no tracking or undermining following debridement, no purulence, no streaking cellulitis. Wound Measurements and Assessment WC - Nurse 1 - General Ulcer Measurement Start: 08/20/18 08:12 Freq: Status: Active Protocol: Activity Type Activity Date Activity User E-Sign Co-Sign Detail Recorded Client Recorded Date Recorded By Document 08/27/18 08:35 AN [id number] 08/27/18 08:45 AN 08/27/18 08:35 Wound Center Nurse 1 [Ulcer Assessment] #2 right plantar foot -Current Size (cm) - Length 0.1 -Current Size (cm) - Width 0.1 -Current Size (cm) - Depth 0.1 -Total Square Cm 0.01 -Date of Last Picture (Recall this 08/27/18 field) -Photo Taken Yes -Tunneling No -Undermining/Tunneling No -Exudate Amt None Present -Wound Margin Flat & Intact -Granulation Amt None Present (0 %) -Necrosis Amt Large (67-100%) -Necrotic Tissue Type Eschar -Temperature (Yu-wound Skin No Abnormality Appearance) (Pt Warm) -Tenderness on Palpation (Yu-wound Yes Skin Appearance) -Ulcer Cleansing Rinsed/ Irrigated with Saline -Foul Odor after Cleansing No -Anesthetic Used 5% Lidocaine Gel WC - Nurse 2 - General Ulcer CM Notes Start: 08/20/18 08:12 Freq: Status: Active Protocol: Activity Type Activity Date Activity User E-Sign Co-Sign Detail Recorded Client Recorded Date Recorded By Document 08/27/18 09:12 DV [id number] 08/27/18 09:16 DV 08/27/18 09:12 Wound Center Nurse 2 [Procedure/Treatment] -Time 09:14 -Correct Patient Yes -Correct Side, Site, Position Yes -Correct Procedure Yes -Procedure Performed Yes -Type of Procedure Debridement -Clinical Debridement Subcutaneous -Post Debridement Size (cm) - Length 0.6 -Post Debridement Size (cm) - Width 0.2 -Post Debridement Size (cm) - Depth 0.2 -Total Square Cm 0.12 -Wound/Ulcer Outcome Not Healed -Ulcer Cleansing Rinsed/ Irrigated with Saline -Foul Odor after Cleansing No -Bioengineered Tissue No -Bleeding Controlled with Pressure -Offloading No -Type of Offloading Surgical Shoe -Treatment Response Procedure Tolerated Well [See Physician Procedure note for Specifics] Pain Scale: 0-10 Numeric [Pain] -Is Patient Pain Free? Yes Musculoskeletal: Tenderness - Slight tenderness with manipulation of ulcer site Neurological: Sensory exam intact to light touch and pain, - - Patient does have some slight altered protective sensation to the right foot Psych/Mental Status: Normal Affect, Appropriate Debridement Note Post-Debridement Measurements/Treatment WC - Nurse 2 - General Ulcer CM Notes Start: 08/20/18 08:12 Freq: Status: Active Protocol: Activity Type Activity Date Activity User E-Sign Co-Sign Detail Recorded Client Recorded Date Recorded By Document 08/20/18 08:33 DV [id number] 08/20/18 08:45 DV Document 08/27/18 09:12 DV [id number] 08/27/18 09:16 DV 08/20/18 08/27/18 08:33 09:12 Wound Center Nurse 2 #2 right plantar foot -Time 08:33 09:14 -Correct Patient Yes Yes -Correct Side, Site, Position Yes Yes -Correct Procedure Yes Yes -Procedure Performed Yes Yes -Type of Procedure Debridement Debridement -Clinical Debridement Subcutaneous Subcutaneous -Post Debridement Size (cm) - Length 0.7 0.6 -Post Debridement Size (cm) - Width 0.4 0.2 -Post Debridement Size (cm) - Depth 0.2 0.2 -Total Square Cm 0.28 0.12 -Wound/Ulcer Outcome Not Healed Not Healed -Ulcer Cleansing Rinsed/ Rinsed/ Irrigated with Irrigated with Saline Saline -Foul Odor after Cleansing No No -Bioengineered Tissue No No -Bleeding Controlled with Pressure Pressure -Offloading No No -Type of Offloading Surgical Shoe Surgical Shoe -Treatment Response Procedure Procedure Tolerated Well Tolerated Well Pain Scale: 0-10 Numeric Is Patient Pain Free? Yes Yes Wound debrided: Right plantar lateral fifth metatarsal head Laterality: Right Type of Debridement: Excisional debridement Anesthesia Used: 4% Lidocaine Solution Depth: in the subcutaneous layer Percentage of wound debrided: 100 Instrument Used: #15 blade Tissue Removed: Adherent slough, fibrin, biofilm, hyperkeratotic tissue Severity: Fat Layer Exposed Amount of bleeding with debridement: Mild Bleeding Controlled with: Pressure Patient tolerated procedure well Assessment/Plan Assessment: Ulcer right sub-fifth met head. DM. Pain right foot Plan: Patient was examined and evaluated again today for follow up of ulcer to plantar lateral 5th met head. Ulcer site is slightly improved this week. Subcutaneous debridement was performed as noted in the clinical panel. Once complete, the ulcer site was carefully cleansed and then dressed with slightly moistened Jessica to the base followed by dry sterile dressing. The patient was instructed to continue with offloading the ulcer site with the assistance of the surgical shoe with offloading insert. The importance of continued offloading was discussed at great length again today and the patient says he has been doing well wearing his offloading surgical shoe as well as offloading CAM walker. Extra felt padding dispensed to patient and he can add this to his surgical shoe as needed. I continue to recommended nutritional supplementation with a high- protein diet in order to optimize wound healing potential for this patient. Importance of tight glycemic control was stressed to the patient today. Smoking cessation was discussed with this patient today. 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 Patient was educated on all signs and symptoms of local and systemic infection, and he was instructed to go to the emergency room immediately should he notice any. All other questions were answered to the patient's satisfaction. Patient will follow-up in clinic in 1 week to check on progress, or sooner if needed.
[2018-09-03 08:16] VITALS: BP 112/73; PULSE 106; RESP 20; TEMP 36.6; BMI 24.6
--- NOTE | 2018-09-03 08:57 | PCM.WC.PN ---
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 (2) Diabetes mellitus type 1 Status: Chronic Current Visit: No Qualifiers: Diabetes mellitus complication status: with unspecified complications Qualified Code(s): E10.8 - Type 1 diabetes mellitus with unspecified complications Code(s): E10.9 - Type 1 diabetes mellitus without complications (3) Pain in right foot Status: Acute Current Visit: No Code(s): M79.671 - Pain in right foot (4) Delayed wound healing Status: Acute Current Visit: No Code(s): T14.8XXD - Other injury of unspecified body region, subsequent encounter Type of Wound Chief Complaint: right plantar foot ulcer History of Wound: This 33-year-old diabetic male presents to the wound healing center for ulcer sub-right fifth metatarsal head that he states re-opened after stepping on one of his kids toys a little over a week ago. He says he tried to use old jessica and keep the area offloaded, but he says he was not noticing any improvement and wanted to have the area evaluated in clinic again before it got any worse. He relates that he was walking barefoot at the time of injury. He also says he failed to make an appointment as instructed at his previous discharge in order to be measured for a pair of offloading diabetic shoes. He denies any purulence, surrounding or extending redness, or increase in warmth. He does relate the area is painful at times. Progress of Wound: Ulcer plantar lateral 5th met head slightly improved again this week. Patient staying off of his feet as much as possible, and having daily jessica dressing changes. Patient has been wearing offloading surgical shoe as well as offloading CAM walker and applying daily dressing changes as instructed with jsesica. He also has a memory foam pair of slippers that he says he has worn for walking small distances in his house. Patient denies any feelings, of nausea, vomiting, fever, or chills today. - Physical Exam Vital Signs Temp Pulse Resp BP 97.9 F 106 H 20 H 112/73 09/03/18 08:16 09/03/18 08:16 09/03/18 08:16 09/03/18 08:16 General: Alert, Oriented x3, Cooperative, No apparent distress Extremities: Capillary Refill Less than 3 Seconds, No Calf Tenderness - Negative Sean and Sanders sign, Edema - Mild lower extremity edema, Peripheral Pulses Normal - DP and PT pulses palpable bilateral Skin: Ulcer/ Wound - Ulcer sub-right fifth met head with fat layer exposed. Measurements are noted below. The base is noted to be a mixture of adherent slough, fibrin, granular tissue, as well as some slight surrounding hyperkeratotic tissue again this week. There is no probing to bone, no tracking or undermining following debridement, no purulence, no streaking cellulitis. Wound Measurements and Assessment WC - Nurse 1 - General Ulcer Measurement Start: 08/20/18 08:12 Freq: Status: Active Protocol: Activity Type Activity Date Activity User E-Sign Co-Sign Detail Recorded Client Recorded Date Recorded By Document 09/03/18 08:16 DL [id number] 09/03/18 08:22 DL 09/03/18 08:16 Wound Center Nurse 1 [Ulcer Assessment] #2 right plantar foot -Current Size (cm) - Length 0.1 -Current Size (cm) - Width 0.1 -Current Size (cm) - Depth 0.1 -Total Square Cm 0.01 -Photo Taken No -Exudate Amt None Present -Wound Margin Thickened -Granulation Amt Small (1-33%) -Granulation Quality [place] -Necrosis Amt None Present (0 %) -Structure Exposed N/A -Texture (Yu-wound Skin Appearance) Callus -Moisture (Yu-wound Skin Appearance Dry/Scaly ) -Color (Yu-wound Skin Appearance) No Abnormality -Temperature (Yu-wound Skin No Abnormality Appearance) (Pt Warm) -Tenderness on Palpation (Yu-wound No Skin Appearance) -Ulcer Cleansing Rinsed/ Irrigated with Saline -Foul Odor after Cleansing No -Anesthetic Used 4% Lidocaine Solution WC - Nurse 2 - General Ulcer CM Notes Start: 08/20/18 08:12 Freq: Status: Active Protocol: Activity Type Activity Date Activity User E-Sign Co-Sign Detail Recorded Client Recorded Date Recorded By Document 09/03/18 08:40 DV [id number] 09/03/18 08:43 DV 09/03/18 08:40 Wound Center Nurse 2 [Procedure/Treatment] -Time 08:41 -Correct Patient Yes -Correct Side, Site, Position Yes -Correct Procedure Yes -Procedure Performed Yes -Type of Procedure Debridement -Clinical Debridement Subcutaneous -Post Debridement Size (cm) - Length 0.5 -Post Debridement Size (cm) - Width 0.2 -Post Debridement Size (cm) - Depth 0.2 -Total Square Cm 0.10 -Wound/Ulcer Outcome Not Healed -Ulcer Cleansing Rinsed/ Irrigated with Saline -Foul Odor after Cleansing No -Bioengineered Tissue No -Bleeding Controlled with Pressure -Offloading No -Treatment Response Procedure Tolerated Well [See Physician Procedure note for Specifics] Pain Scale: 0-10 Numeric [Pain] -Is Patient Pain Free? Yes Musculoskeletal: Tenderness - Slight tenderness with manipulation of ulcer site Neurological: Sensory exam intact to light touch and pain, - - Patient does have some slight altered protective sensation to the right foot Psych/Mental Status: Normal Affect, Appropriate Debridement Note Post-Debridement Measurements/Treatment WC - Nurse 2 - General Ulcer CM Notes Start: 08/20/18 08:12 Freq: Status: Active Protocol: Activity Type Activity Date Activity User E-Sign Co-Sign Detail Recorded Client Recorded Date Recorded By Document 08/20/18 08:33 DV [id number] 08/20/18 08:45 DV Document 08/27/18 09:12 DV [id number] 08/27/18 09:16 DV Document 09/03/18 08:40 DV [id number] 09/03/18 08:43 DV 08/20/18 08/27/18 09/03/18 08:33 09:12 08:40 Wound Center Nurse 2 #2 right plantar foot -Time 08:33 09:14 08:41 -Correct Patient Yes Yes Yes -Correct Side, Site, Position Yes Yes Yes -Correct Procedure Yes Yes Yes -Procedure Performed Yes Yes Yes -Type of Procedure Debridement Debridement Debridement -Clinical Debridement Subcutaneous Subcutaneous Subcutaneous -Post Debridement Size (cm) - Length 0.7 0.6 0.5 -Post Debridement Size (cm) - Width 0.4 0.2 0.2 -Post Debridement Size (cm) - Depth 0.2 0.2 0.2 -Total Square Cm 0.28 0.12 0.10 -Wound/Ulcer Outcome Not Healed Not Healed Not Healed -Ulcer Cleansing Rinsed/ Rinsed/ Rinsed/ Irrigated with Irrigated with Irrigated with Saline Saline Saline -Foul Odor after Cleansing No No No -Bioengineered Tissue No No No -Bleeding Controlled with Pressure Pressure Pressure -Offloading No No No -Type of Offloading Surgical Shoe Surgical Shoe -Treatment Response Procedure Procedure Procedure Tolerated Well Tolerated Well Tolerated Well Pain Scale: 0-10 Numeric Is Patient Pain Free? Yes Yes Yes Wound debrided: Right plantar lateral fifth metatarsal head Laterality: Right Type of Debridement: Excisional debridement Anesthesia Used: 4% Lidocaine Solution Depth: in the subcutaneous layer Percentage of wound debrided: 100 Instrument Used: #15 blade Tissue Removed: Adherent slough, fibrin, biofilm, hyperkeratotic tissue Severity: Fat Layer Exposed Amount of bleeding with debridement: Mild Bleeding Controlled with: Pressure Patient tolerated procedure well Assessment/Plan Assessment: Ulcer right sub-fifth met head. DM. Pain right foot Plan: Patient was examined and evaluated again today for follow up of ulcer to plantar lateral 5th met head. Ulcer site is slightly improved this week. Subcutaneous debridement was performed as noted in the clinical panel. Once complete, the ulcer site was carefully cleansed and then dressed with slightly moistened Jessica to the base followed by dry sterile dressing. The patient was instructed to continue with offloading the ulcer site with the assistance of the surgical shoe with offloading insert. The importance of continued offloading was discussed at great length again today and the patient says he has been doing well wearing his offloading surgical shoe as well as offloading CAM walker. Patient has also recently been wearing memory foam slippers to walk short distances in his house. I continue to recommended nutritional supplementation with a high-protein diet in order to optimize wound healing potential for this patient. Importance of tight glycemic control was stressed to the patient today. Smoking cessation was discussed with this patient today. 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 Patient was educated on all signs and symptoms of local and systemic infection, and he was instructed to go to the emergency room immediately should he notice any. All other questions were answered to the patient's satisfaction. Patient will follow-up in clinic in 1 week to check on progress, or sooner if needed.
--- NOTE | 2018-09-03 09:02 | PN.PCM_ITS ---
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 (2) Diabetes mellitus type 1 Status: Chronic Current Visit: No Qualifiers: Diabetes mellitus complication status: with unspecified complications Qualified Code(s): E10.8 - Type 1 diabetes mellitus with unspecified complications Code(s): E10.9 - Type 1 diabetes mellitus without complications (3) Pain in right foot Status: Acute Current Visit: No Code(s): M79.671 - Pain in right foot (4) Delayed wound healing Status: Acute Current Visit: No Code(s): T14.8XXD - Other injury of unspecified body region, subsequent encounter Type of Wound Chief Complaint: right plantar foot ulcer History of Wound: This 33-year-old diabetic male presents to the wound healing center for ulcer sub-right fifth metatarsal head that he states re-opened after stepping on one of his kids toys a little over a week ago. He says he tried to use old jessica and keep the area offloaded, but he says he was not noticing any improvement and wanted to have the area evaluated in clinic again before it got any worse. He relates that he was walking barefoot at the time of injury. He also says he failed to make an appointment as instructed at his previous discharge in order to be measured for a pair of offloading diabetic shoes. He denies any purulence, surrounding or extending redness, or increase in warmth. He does relate the area is painful at times. Progress of Wound: Ulcer plantar lateral 5th met head slightly improved again this week. Patient staying off of his feet as much as possible, and having daily jessica dressing changes. Patient has been wearing offloading surgical shoe as well as offloading CAM walker and applying daily dressing changes as instructed with jessica. He also has a memory foam pair of slippers that he says he has worn for walking small distances in his house. Patient denies any feelings, of nausea, vomiting, fever, or chills today. - Physical Exam Vital Signs Temp Pulse Resp BP 97.9 F 106 H 20 H 112/73 09/03/18 08:16 09/03/18 08:16 09/03/18 08:16 09/03/18 08:16 General: Alert, Oriented x3, Cooperative, No apparent distress Extremities: Capillary Refill Less than 3 Seconds, No Calf Tenderness - Negative Sean and Sanders sign, Edema - Mild lower extremity edema, Peripheral Pulses Normal - DP and PT pulses palpable bilateral Skin: Ulcer/ Wound - Ulcer sub-right fifth met head with fat layer exposed. Measurements are noted below. The base is noted to be a mixture of adherent slough, fibrin, granular tissue, as well as some slight surrounding hyperkeratotic tissue again this week. There is no probing to bone, no tracking or undermining following debridement, no purulence, no streaking cellulitis. Wound Measurements and Assessment WC - Nurse 1 - General Ulcer Measurement Start: 08/20/18 08:12 Freq: Status: Active Protocol: Activity Type Activity Date Activity User E-Sign Co-Sign Detail Recorded Client Recorded Date Recorded By Document 09/03/18 08:16 DL [id number] 09/03/18 08:22 DL 09/03/18 08:16 Wound Center Nurse 1 [Ulcer Assessment] #2 right plantar foot -Current Size (cm) - Length 0.1 -Current Size (cm) - Width 0.1 -Current Size (cm) - Depth 0.1 -Total Square Cm 0.01 -Photo Taken No -Exudate Amt None Present -Wound Margin Thickened -Granulation Amt Small (1-33%) -Granulation Quality [place] -Necrosis Amt None Present (0 %) -Structure Exposed N/A -Texture (Yu-wound Skin Appearance) Callus -Moisture (Yu-wound Skin Appearance Dry/Scaly ) -Color (Yu-wound Skin Appearance) No Abnormality -Temperature (Yu-wound Skin No Abnormality Appearance) (Pt Warm) -Tenderness on Palpation (Yu-wound No Skin Appearance) -Ulcer Cleansing Rinsed/ Irrigated with Saline -Foul Odor after Cleansing No -Anesthetic Used 4% Lidocaine Solution WC - Nurse 2 - General Ulcer CM Notes Start: 08/20/18 08:12 Freq: Status: Active Protocol: Activity Type Activity Date Activity User E-Sign Co-Sign Detail Recorded Client Recorded Date Recorded By Document 09/03/18 08:40 DV [id number] 09/03/18 08:43 DV 09/03/18 08:40 Wound Center Nurse 2 [Procedure/Treatment] -Time 08:41 -Correct Patient Yes -Correct Side, Site, Position Yes -Correct Procedure Yes -Procedure Performed Yes -Type of Procedure Debridement -Clinical Debridement Subcutaneous -Post Debridement Size (cm) - Length 0.5 -Post Debridement Size (cm) - Width 0.2 -Post Debridement Size (cm) - Depth 0.2 -Total Square Cm 0.10 -Wound/Ulcer Outcome Not Healed -Ulcer Cleansing Rinsed/ Irrigated with Saline -Foul Odor after Cleansing No -Bioengineered Tissue No -Bleeding Controlled with Pressure -Offloading No -Treatment Response Procedure Tolerated Well [See Physician Procedure note for Specifics] Pain Scale: 0-10 Numeric [Pain] -Is Patient Pain Free? Yes Musculoskeletal: Tenderness - Slight tenderness with manipulation of ulcer site Neurological: Sensory exam intact to light touch and pain, - - Patient does have some slight altered protective sensation to the right foot Psych/Mental Status: Normal Affect, Appropriate Debridement Note Post-Debridement Measurements/Treatment WC - Nurse 2 - General Ulcer CM Notes Start: 08/20/18 08:12 Freq: Status: Active Protocol: Activity Type Activity Date Activity User E-Sign Co-Sign Detail Recorded Client Recorded Date Recorded By Document 08/20/18 08:33 DV [id number] 08/20/18 08:45 DV Document 08/27/18 09:12 DV [id number] 08/27/18 09:16 DV Document 09/03/18 08:40 DV [id number] 09/03/18 08:43 DV 08/20/18 08/27/18 09/03/18 08:33 09:12 08:40 Wound Center Nurse 2 #2 right plantar foot -Time 08:33 09:14 08:41 -Correct Patient Yes Yes Yes -Correct Side, Site, Position Yes Yes Yes -Correct Procedure Yes Yes Yes -Procedure Performed Yes Yes Yes -Type of Procedure Debridement Debridement Debridement -Clinical Debridement Subcutaneous Subcutaneous Subcutaneous -Post Debridement Size (cm) - Length 0.7 0.6 0.5 -Post Debridement Size (cm) - Width 0.4 0.2 0.2 -Post Debridement Size (cm) - Depth 0.2 0.2 0.2 -Total Square Cm 0.28 0.12 0.10 -Wound/Ulcer Outcome Not Healed Not Healed Not Healed -Ulcer Cleansing Rinsed/ Rinsed/ Rinsed/ Irrigated with Irrigated with Irrigated with Saline Saline Saline -Foul Odor after Cleansing No No No -Bioengineered Tissue No No No -Bleeding Controlled with Pressure Pressure Pressure -Offloading No No No -Type of Offloading Surgical Shoe Surgical Shoe -Treatment Response Procedure Procedure Procedure Tolerated Well Tolerated Well Tolerated Well Pain Scale: 0-10 Numeric Is Patient Pain Free? Yes Yes Yes Wound debrided: Right plantar lateral fifth metatarsal head Laterality: Right Type of Debridement: Excisional debridement Anesthesia Used: 4% Lidocaine Solution Depth: in the subcutaneous layer Percentage of wound debrided: 100 Instrument Used: #15 blade Tissue Removed: Adherent slough, fibrin, biofilm, hyperkeratotic tissue Severity: Fat Layer Exposed Amount of bleeding with debridement: Mild Bleeding Controlled with: Pressure Patient tolerated procedure well Assessment/Plan Assessment: Ulcer right sub-fifth met head. DM. Pain right foot Plan: Patient was examined and evaluated again today for follow up of ulcer to plantar lateral 5th met head. Ulcer site is slightly improved this week. Subcutaneous debridement was performed as noted in the clinical panel. Once complete, the ulcer site was carefully cleansed and then dressed with slightly moistened Jessica to the base followed by dry sterile dressing. The patient was instructed to continue with offloading the ulcer site with the assistance of the surgical shoe with offloading insert. The importance of continued offloading was discussed at great length again today and the patient says he has been doing well wearing his offloading surgical shoe as well as offloading CAM walker. Patient has also recently been wearing memory foam slippers to walk short distances in his house. I continue to recommended nutritional supplementation with a high-protein diet in order to optimize wound healing potential for this patient. Importance of tight glycemic control was stressed to the patient today. Smoking cessation was discussed with this patient today. 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 Patient was educated on all signs and symptoms of local and systemic infection, and he was instructed to go to the emergency room immediately should he notice any. All other questions were answered to the patient's satisfaction. Patient will follow-up in clinic in 1 week to check on progress, or sooner if needed.
[2018-09-10 08:29] VITALS: BP 112/77; PULSE 100; RESP 18; TEMP 36.7; BMI 24.6
--- NOTE | 2018-09-10 09:10 | PCM.WC.PN ---
(1) Chronic ulcer of left foot with fat layer exposed Status: Chronic Current Visit: Yes Code(s): L97.522 - Non-pressure chronic ulcer of other part of left foot with fat layer exposed (2) Ulcer of right foot with fat layer exposed Status: Acute Current Visit: No Code(s): L97.512 - Non-pressure chronic ulcer of other part of right foot with fat layer exposed (3) Diabetes mellitus type 1 Status: Chronic Current Visit: No Qualifiers: Diabetes mellitus complication status: with unspecified complications Qualified Code(s): E10.8 - Type 1 diabetes mellitus with unspecified complications Code(s): E10.9 - Type 1 diabetes mellitus without complications (4) Pain in right foot Status: Acute Current Visit: No Code(s): M79.671 - Pain in right foot (5) Delayed wound healing Status: Acute Current Visit: No Code(s): T14.8XXD - Other injury of unspecified body region, subsequent encounter Type of Wound Chief Complaint: left plantar foot ulcer History of Wound: This 33-year-old diabetic male presents to the wound healing center for ulcer sub-right fifth metatarsal head that he states re-opened after stepping on one of his kids toys a little over a week ago. He says he tried to use old darío and keep the area offloaded, but he says he was not noticing any improvement and wanted to have the area evaluated in clinic again before it got any worse. He relates that he was walking barefoot at the time of injury. He also says he failed to make an appointment as instructed at his previous discharge in order to be measured for a pair of offloading diabetic shoes. He denies any purulence, surrounding or extending redness, or increase in warmth. He does relate the area is painful at times. Progress of Wound: Ulcer plantar lateral 5th met head appears to be healed today. Patient staying off of his feet as much as possible, and having daily darío dressing changes. Patient says he has noticed some pain now to a callus on his left forefoot and feels he may have a new ulcer starting here. Patient denies any feelings, of nausea, vomiting, fever, or chills today. - Physical Exam Vital Signs Temp Pulse Resp BP 98.0 F 100 18 112/77 09/10/18 08:29 09/10/18 08:29 09/10/18 08:29 09/10/18 08:29 General: Alert, Oriented x3, Cooperative, No apparent distress Extremities: Capillary Refill Less than 3 Seconds, No Calf Tenderness - Negative Sean and Sanders signs, Edema - Very slight lower extremity edema, Peripheral Pulses Normal - DP and PT pulses palpable bilateral Skin: Ulcer/ Wound - Ulcer sub-right fifth met head with fat layer exposed appears healed today. Patient also has new ulcer to left foot sub 4th met head with fat layer exposed. Measurements are noted below. The base is noted to be a mixture of adherent slough, fibrin, granular tissue, as well as some slight surrounding hyperkeratotic tissue again this week. There is no probing to bone, no tracking or undermining following debridement, no purulence, no streaking cellulitis. Wound Measurements and Assessment WC - Nurse 1 - General Ulcer Measurement Start: 08/20/18 08:12 Freq: Status: Active Protocol: Activity Type Activity Date Activity User E-Sign Co-Sign Detail Recorded Client Recorded Date Recorded By Document 09/10/18 08:29 MT [id number] 09/10/18 08:34 WV 09/10/18 08:29 Wound Center Nurse 1 [Ulcer Assessment] #2 Right Foot- Plantar -Current Size (cm) - Length 0.1 -Current Size (cm) - Width 0.1 -Current Size (cm) - Depth 0.1 -Total Square Cm 0.01 -Texture (Yu-wound Skin Appearance) Callus [Edema Assessment] -Lower Limb Edema Present NA WC - Nurse 2 - General Ulcer CM Notes Start: 08/20/18 08:12 Freq: Status: Active Protocol: Activity Type Activity Date Activity User E-Sign Co-Sign Detail Recorded Client Recorded Date Recorded By Document 09/10/18 08:46 DV [id number] 09/10/18 08:58 DV 09/10/18 08:46 Wound Center Nurse 2 [Procedure/Treatment] #3 Left Foot- Plantar -Time 08:54 -Correct Patient Yes -Correct Side, Site, Position Yes -Correct Procedure Yes -Procedure Performed Yes -Type of Procedure Debridement -Clinical Debridement Subcutaneous -Post Debridement Size (cm) - Length 0.7 -Post Debridement Size (cm) - Width 0.7 -Post Debridement Size (cm) - Depth 0.2 -Total Square Cm 0.49 -Wound/Ulcer Outcome Not Healed -Ulcer Cleansing Rinsed/ Irrigated with Saline -Foul Odor after Cleansing No -Bioengineered Tissue No -Bleeding Controlled with Pressure -Offloading No -Type of Offloading Surgical Shoe -Treatment Response Procedure Tolerated Well #2 Right Foot- Plantar -Time 08:47 -Correct Patient Yes -Correct Side, Site, Position Yes -Procedure Performed No -Post Debridement Size (cm) - Length 0 -Post Debridement Size (cm) - Width 0 -Post Debridement Size (cm) - Depth 0 -Total Square Cm 0 -Wound/Ulcer Outcome Healed- Epithelialized [See Physician Procedure note for Specifics] Pain Scale: 0-10 Numeric [Pain] -Is Patient Pain Free? Yes Musculoskeletal: - - Slight tenderness with manipulation of ulcer site Neurological: Sensory exam intact to light touch and pain - Patient does have some altered protective sensation to bilateral feet Psych/Mental Status: Normal Affect, Appropriate Debridement Note Post-Debridement Measurements/Treatment WC - Nurse 2 - General Ulcer CM Notes Start: 08/20/18 08:12 Freq: Status: Active Protocol: Activity Type Activity Date Activity User E-Sign Co-Sign Detail Recorded Client Recorded Date Recorded By Document 08/20/18 08:33 DV [id number] 08/20/18 08:45 DV Document 08/27/18 09:12 DV [id number] 08/27/18 09:16 DV Document 09/03/18 08:40 DV [id number] 09/03/18 08:43 DV Document 09/10/18 08:46 DV [id number] 09/10/18 08:58 DV 08/20/18 08/27/18 09/03/18 08:33 09:12 08:40 Wound Center Nurse 2 #3 Left Foot- Plantar -Time -Correct Patient -Correct Side, Site, Position -Correct Procedure -Procedure Performed -Type of Procedure -Clinical Debridement -Post Debridement Size (cm) - Length -Post Debridement Size (cm) - Width -Post Debridement Size (cm) - Depth -Total Square Cm -Wound/Ulcer Outcome -Ulcer Cleansing -Foul Odor after Cleansing -Bioengineered Tissue -Bleeding Controlled with -Offloading -Type of Offloading -Treatment Response #2 Right Foot- Plantar -Time 08:33 09:14 08:41 -Correct Patient Yes Yes Yes -Correct Side, Site, Position Yes Yes Yes -Correct Procedure Yes Yes Yes -Procedure Performed Yes Yes Yes -Type of Procedure Debridement Debridement Debridement -Clinical Debridement Subcutaneous Subcutaneous Subcutaneous -Post Debridement Size (cm) - Length 0.7 0.6 0.5 -Post Debridement Size (cm) - Width 0.4 0.2 0.2 -Post Debridement Size (cm) - Depth 0.2 0.2 0.2 -Total Square Cm 0.28 0.12 0.10 -Wound/Ulcer Outcome Not Healed Not Healed Not Healed -Ulcer Cleansing Rinsed/ Rinsed/ Rinsed/ Irrigated with Irrigated with Irrigated with Saline Saline Saline -Foul Odor after Cleansing No No No -Bioengineered Tissue No No No -Bleeding Controlled with Pressure Pressure Pressure -Offloading No No No -Type of Offloading Surgical Shoe Surgical Shoe -Treatment Response Procedure Procedure Procedure Tolerated Well Tolerated Well Tolerated Well Pain Scale: 0-10 Numeric Is Patient Pain Free? Yes Yes Yes 09/10/18 08:46 Wound Center Nurse 2 #3 Left Foot- Plantar -Time 08:54 -Correct Patient Yes -Correct Side, Site, Position Yes -Correct Procedure Yes -Procedure Performed Yes -Type of Procedure Debridement -Clinical Debridement Subcutaneous -Post Debridement Size (cm) - Length 0.7 -Post Debridement Size (cm) - Width 0.7 -Post Debridement Size (cm) - Depth 0.2 -Total Square Cm 0.49 -Wound/Ulcer Outcome Not Healed -Ulcer Cleansing Rinsed/ Irrigated with Saline -Foul Odor after Cleansing No -Bioengineered Tissue No -Bleeding Controlled with Pressure -Offloading No -Type of Offloading Surgical Shoe -Treatment Response Procedure Tolerated Well #2 Right Foot- Plantar -Time 08:47 -Correct Patient Yes -Correct Side, Site, Position Yes -Correct Procedure -Procedure Performed No -Type of Procedure -Clinical Debridement -Post Debridement Size (cm) - Length 0 -Post Debridement Size (cm) - Width 0 -Post Debridement Size (cm) - Depth 0 -Total Square Cm 0 -Wound/Ulcer Outcome Healed- Epithelialized -Ulcer Cleansing -Foul Odor after Cleansing -Bioengineered Tissue -Bleeding Controlled with -Offloading -Type of Offloading -Treatment Response Pain Scale: 0-10 Numeric Is Patient Pain Free? Yes Wound debrided: Left sub-fourth metatarsal head Laterality: Left Type of Debridement: Excisional debridement Anesthesia Used: 4% Lidocaine Solution Depth: in the subcutaneous layer Percentage of wound debrided: 100 Instrument Used: #15 blade, - - Tissue nipper Tissue Removed: Adherent slough, fibrin, biofilm, hyperkeratotic tissue Severity: Fat Layer Exposed Amount of bleeding with debridement: Mild Bleeding Controlled with: Pressure Patient tolerated procedure well Assessment/Plan Active Problems (Last Reviewed 08/20/18 @ 10:02 by Verna Grajeda) Chronic ulcer of left foot with fat layer exposed (Chronic) Assessment: Ulcer left sub-fourth met head. DM. Pain left foot Plan: Patient was examined and evaluated again today for follow up of ulcer to plantar lateral 5th met head. This area is healed today. Patient has a new ulcer to opposite foot sub left 4th met head. Subcutaneous excisional debridement was performed as noted in the clinical panel. Once complete, the ulcer site was carefully cleansed and then dressed with slightly moistened Darío to the base followed by dry sterile dressing. The patient was instructed to continue with offloading the ulcer site with the assistance of the surgical shoe with offloading insert. Patient has extra felt at home to place in surgical shoe. He is to bring this with him next week if he has any issues. The importance of continued offloading was discussed at great length again today. Patient to continue with CAM walker to left foot as well. Patient has also recently been wearing memory foam slippers to walk short distances in his house. I continue to recommended nutritional supplementation with a high-protein diet in order to optimize wound healing potential for this patient. Importance of tight glycemic control was stressed to the patient today. Smoking cessation was discussed with this patient today. 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 Patient was educated on all signs and symptoms of local and systemic infection, and he was instructed to go to the emergency room immediately should he notice any. All other questions were answered to the patient's satisfaction. Patient will follow-up in clinic in 1 week to check on progress, or sooner if needed.
--- NOTE | 2018-09-10 09:15 | PN.PCM_ITS ---
(1) Chronic ulcer of left foot with fat layer exposed Status: Chronic Current Visit: Yes Code(s): L97.522 - Non-pressure chronic ulcer of other part of left foot with fat layer exposed (2) Ulcer of right foot with fat layer exposed Status: Acute Current Visit: No Code(s): L97.512 - Non-pressure chronic ulcer of other part of right foot with fat layer exposed (3) Diabetes mellitus type 1 Status: Chronic Current Visit: No Qualifiers: Diabetes mellitus complication status: with unspecified complications Qualified Code(s): E10.8 - Type 1 diabetes mellitus with unspecified complications Code(s): E10.9 - Type 1 diabetes mellitus without complications (4) Pain in right foot Status: Acute Current Visit: No Code(s): M79.671 - Pain in right foot (5) Delayed wound healing Status: Acute Current Visit: No Code(s): T14.8XXD - Other injury of unspecified body region, subsequent encounter Type of Wound Chief Complaint: left plantar foot ulcer History of Wound: This 33-year-old diabetic male presents to the wound healing center for ulcer sub-right fifth metatarsal head that he states re-opened after stepping on one of his kids toys a little over a week ago. He says he tried to use old darío and keep the area offloaded, but he says he was not noticing any improvement and wanted to have the area evaluated in clinic again before it got any worse. He relates that he was walking barefoot at the time of injury. He also says he failed to make an appointment as instructed at his previous discharge in order to be measured for a pair of offloading diabetic shoes. He denies any purulence, surrounding or extending redness, or increase in warmth. He does relate the area is painful at times. Progress of Wound: Ulcer plantar lateral 5th met head appears to be healed today. Patient staying off of his feet as much as possible, and having daily darío dressing changes. Patient says he has noticed some pain now to a callus on his left forefoot and feels he may have a new ulcer starting here. Patient denies any feelings, of nausea, vomiting, fever, or chills today. - Physical Exam Vital Signs Temp Pulse Resp BP 98.0 F 100 18 112/77 09/10/18 08:29 09/10/18 08:29 09/10/18 08:29 09/10/18 08:29 General: Alert, Oriented x3, Cooperative, No apparent distress Extremities: Capillary Refill Less than 3 Seconds, No Calf Tenderness - Negative Sean and Sanders signs, Edema - Very slight lower extremity edema, Peripheral Pulses Normal - DP and PT pulses palpable bilateral Skin: Ulcer/ Wound - Ulcer sub-right fifth met head with fat layer exposed appears healed today. Patient also has new ulcer to left foot sub 4th met head with fat layer exposed. Measurements are noted below. The base is noted to be a mixture of adherent slough, fibrin, granular tissue, as well as some slight surrounding hyperkeratotic tissue again this week. There is no probing to bone, no tracking or undermining following debridement, no purulence, no streaking cellulitis. Wound Measurements and Assessment WC - Nurse 1 - General Ulcer Measurement Start: 08/20/18 08:12 Freq: Status: Active Protocol: Activity Type Activity Date Activity User E-Sign Co-Sign Detail Recorded Client Recorded Date Recorded By Document 09/10/18 08:29 MT [id number] 09/10/18 08:34 IN 09/10/18 08:29 Wound Center Nurse 1 [Ulcer Assessment] #2 Right Foot- Plantar -Current Size (cm) - Length 0.1 -Current Size (cm) - Width 0.1 -Current Size (cm) - Depth 0.1 -Total Square Cm 0.01 -Texture (Yu-wound Skin Appearance) Callus [Edema Assessment] -Lower Limb Edema Present NA WC - Nurse 2 - General Ulcer CM Notes Start: 08/20/18 08:12 Freq: Status: Active Protocol: Activity Type Activity Date Activity User E-Sign Co-Sign Detail Recorded Client Recorded Date Recorded By Document 09/10/18 08:46 DV [id number] 09/10/18 08:58 DV 09/10/18 08:46 Wound Center Nurse 2 [Procedure/Treatment] #3 Left Foot- Plantar -Time 08:54 -Correct Patient Yes -Correct Side, Site, Position Yes -Correct Procedure Yes -Procedure Performed Yes -Type of Procedure Debridement -Clinical Debridement Subcutaneous -Post Debridement Size (cm) - Length 0.7 -Post Debridement Size (cm) - Width 0.7 -Post Debridement Size (cm) - Depth 0.2 -Total Square Cm 0.49 -Wound/Ulcer Outcome Not Healed -Ulcer Cleansing Rinsed/ Irrigated with Saline -Foul Odor after Cleansing No -Bioengineered Tissue No -Bleeding Controlled with Pressure -Offloading No -Type of Offloading Surgical Shoe -Treatment Response Procedure Tolerated Well #2 Right Foot- Plantar -Time 08:47 -Correct Patient Yes -Correct Side, Site, Position Yes -Procedure Performed No -Post Debridement Size (cm) - Length 0 -Post Debridement Size (cm) - Width 0 -Post Debridement Size (cm) - Depth 0 -Total Square Cm 0 -Wound/Ulcer Outcome Healed- Epithelialized [See Physician Procedure note for Specifics] Pain Scale: 0-10 Numeric [Pain] -Is Patient Pain Free? Yes Musculoskeletal: - - Slight tenderness with manipulation of ulcer site Neurological: Sensory exam intact to light touch and pain - Patient does have some altered protective sensation to bilateral feet Psych/Mental Status: Normal Affect, Appropriate Debridement Note Post-Debridement Measurements/Treatment WC - Nurse 2 - General Ulcer CM Notes Start: 08/20/18 08:12 Freq: Status: Active Protocol: Activity Type Activity Date Activity User E-Sign Co-Sign Detail Recorded Client Recorded Date Recorded By Document 08/20/18 08:33 DV [id number] 08/20/18 08:45 DV Document 08/27/18 09:12 DV [id number] 08/27/18 09:16 DV Document 09/03/18 08:40 DV [id number] 09/03/18 08:43 DV Document 09/10/18 08:46 DV [id number] 09/10/18 08:58 DV 08/20/18 08/27/18 09/03/18 08:33 09:12 08:40 Wound Center Nurse 2 #3 Left Foot- Plantar -Time -Correct Patient -Correct Side, Site, Position -Correct Procedure -Procedure Performed -Type of Procedure -Clinical Debridement -Post Debridement Size (cm) - Length -Post Debridement Size (cm) - Width -Post Debridement Size (cm) - Depth -Total Square Cm -Wound/Ulcer Outcome -Ulcer Cleansing -Foul Odor after Cleansing -Bioengineered Tissue -Bleeding Controlled with -Offloading -Type of Offloading -Treatment Response #2 Right Foot- Plantar -Time 08:33 09:14 08:41 -Correct Patient Yes Yes Yes -Correct Side, Site, Position Yes Yes Yes -Correct Procedure Yes Yes Yes -Procedure Performed Yes Yes Yes -Type of Procedure Debridement Debridement Debridement -Clinical Debridement Subcutaneous Subcutaneous Subcutaneous -Post Debridement Size (cm) - Length 0.7 0.6 0.5 -Post Debridement Size (cm) - Width 0.4 0.2 0.2 -Post Debridement Size (cm) - Depth 0.2 0.2 0.2 -Total Square Cm 0.28 0.12 0.10 -Wound/Ulcer Outcome Not Healed Not Healed Not Healed -Ulcer Cleansing Rinsed/ Rinsed/ Rinsed/ Irrigated with Irrigated with Irrigated with Saline Saline Saline -Foul Odor after Cleansing No No No -Bioengineered Tissue No No No -Bleeding Controlled with Pressure Pressure Pressure -Offloading No No No -Type of Offloading Surgical Shoe Surgical Shoe -Treatment Response Procedure Procedure Procedure Tolerated Well Tolerated Well Tolerated Well Pain Scale: 0-10 Numeric Is Patient Pain Free? Yes Yes Yes 09/10/18 08:46 Wound Center Nurse 2 #3 Left Foot- Plantar -Time 08:54 -Correct Patient Yes -Correct Side, Site, Position Yes -Correct Procedure Yes -Procedure Performed Yes -Type of Procedure Debridement -Clinical Debridement Subcutaneous -Post Debridement Size (cm) - Length 0.7 -Post Debridement Size (cm) - Width 0.7 -Post Debridement Size (cm) - Depth 0.2 -Total Square Cm 0.49 -Wound/Ulcer Outcome Not Healed -Ulcer Cleansing Rinsed/ Irrigated with Saline -Foul Odor after Cleansing No -Bioengineered Tissue No -Bleeding Controlled with Pressure -Offloading No -Type of Offloading Surgical Shoe -Treatment Response Procedure Tolerated Well #2 Right Foot- Plantar -Time 08:47 -Correct Patient Yes -Correct Side, Site, Position Yes -Correct Procedure -Procedure Performed No -Type of Procedure -Clinical Debridement -Post Debridement Size (cm) - Length 0 -Post Debridement Size (cm) - Width 0 -Post Debridement Size (cm) - Depth 0 -Total Square Cm 0 -Wound/Ulcer Outcome Healed- Epithelialized -Ulcer Cleansing -Foul Odor after Cleansing -Bioengineered Tissue -Bleeding Controlled with -Offloading -Type of Offloading -Treatment Response Pain Scale: 0-10 Numeric Is Patient Pain Free? Yes Wound debrided: Left sub-fourth metatarsal head Laterality: Left Type of Debridement: Excisional debridement Anesthesia Used: 4% Lidocaine Solution Depth: in the subcutaneous layer Percentage of wound debrided: 100 Instrument Used: #15 blade, - - Tissue nipper Tissue Removed: Adherent slough, fibrin, biofilm, hyperkeratotic tissue Severity: Fat Layer Exposed Amount of bleeding with debridement: Mild Bleeding Controlled with: Pressure Patient tolerated procedure well Assessment/Plan Active Problems (Last Reviewed 08/20/18 @ 10:02 by Verna Grajeda) Chronic ulcer of left foot with fat layer exposed (Chronic) Assessment: Ulcer left sub-fourth met head. DM. Pain left foot Plan: Patient was examined and evaluated again today for follow up of ulcer to plantar lateral 5th met head. This area is healed today. Patient has a new ulcer to opposite foot sub left 4th met head. Subcutaneous excisional debridement was performed as noted in the clinical panel. Once complete, the ulcer site was carefully cleansed and then dressed with slightly moistened Daroí to the base followed by dry sterile dressing. The patient was instructed to continue with offloading the ulcer site with the assistance of the surgical shoe with offloading insert. Patient has extra felt at home to place in surgical shoe. He is to bring this with him next week if he has any issues. The importance of continued offloading was discussed at great length again today. Patient to continue with CAM walker to left foot as well. Patient has also recently been wearing memory foam slippers to walk short distances in his house. I continue to recommended nutritional supplementation with a high-protein diet in order to optimize wound healing potential for this patient. Importance of tight glycemic control was stressed to the patient today. Smoking cessation was discussed with this patient today. 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 Patient was educated on all signs and symptoms of local and systemic infection, and he was instructed to go to the emergency room immediately should he notice any. All other questions were answered to the patient's satisfaction. Patient will follow-up in clinic in 1 week to check on progress, or sooner if needed.
== END 2018-09-10 23:59 ==
LOC: WC 08:15
PROVIDERS: Family Provider Internal Medicine; PCP Internal Medicine; Referring Provider Podiatrist; Visit Provider Podiatrist
DX: E10.621 Type 1 diabetes mellitus with foot ulcer (principal); L97.512 Non-pressure chronic ulcer of other part of right foot with fat layer exposed; M79.671 Pain in right foot; R60.0 Localized edema
CPT/HCPCS: 11042

== ENCOUNTER 2018-09-24 08:15 | Outpatient (RCR) | payer MEDICAID, SELFPAY ==
[2018-09-11 01:07] VITALS: BP 112/77; PULSE 100; RESP 18; TEMP 36.7
[2018-09-17 08:16] VITALS: BP 122/69; PULSE 95; RESP 16; TEMP 37.2; BMI 24.6
--- NOTE | 2018-09-17 08:51 | PCM.WC.PN ---
(1) Chronic ulcer of left foot with fat layer exposed Status: Chronic Current Visit: No Code(s): L97.522 - Non-pressure chronic ulcer of other part of left foot with fat layer exposed (2) Ulcer of right foot with fat layer exposed Status: Acute Current Visit: No Code(s): L97.512 - Non-pressure chronic ulcer of other part of right foot with fat layer exposed (3) Pain in right foot Status: Acute Current Visit: No Code(s): M79.671 - Pain in right foot (4) Delayed wound healing Status: Acute Current Visit: No Code(s): T14.8XXD - Other injury of unspecified body region, subsequent encounter (5) Diabetes mellitus type 1 Status: Chronic Current Visit: No Qualifiers: Code(s): E10.9 - Type 1 diabetes mellitus without complications Type of Wound Chief Complaint: left plantar foot ulcer History of Wound: This 33-year-old diabetic male presents to the wound healing center for ulcer sub-right fifth metatarsal head that he states re-opened after stepping on one of his kids toys a little over a week ago. He says he tried to use old jessica and keep the area offloaded, but he says he was not noticing any improvement and wanted to have the area evaluated in clinic again before it got any worse. He relates that he was walking barefoot at the time of injury. He also says he failed to make an appointment as instructed at his previous discharge in order to be measured for a pair of offloading diabetic shoes. He denies any purulence, surrounding or extending redness, or increase in warmth. He does relate the area is painful at times. Progress of Wound: Ulcer to left forefoot showing improvement since last week. Patient staying off of his feet as much as possible, and having daily jessica dressing changes. Patient denies any feelings, of nausea, vomiting, fever, or chills today. - Physical Exam Vital Signs Temp Pulse Resp BP 98.9 F 95 16 122/69 H 09/17/18 08:16 09/17/18 08:16 09/17/18 08:16 09/17/18 08:16 General: Alert, Oriented x3, Cooperative, No apparent distress Extremities: Capillary Refill Less than 3 Seconds, No Calf Tenderness - Negative Sean and Sanders sign, Edema - Very slight lower extremity edema, Peripheral Pulses Normal - DP and PT pulses palpable bilateral Skin: Ulcer/ Wound - Ulcer to left foot sub 4th met head with fat layer exposed. Improvement noted this week. Measurements are noted below. The base is noted to be a mixture of adherent slough, fibrin, granular tissue, as well as some slight surrounding hyperkeratotic tissue again this week. There is no probing to bone, no tracking or undermining following debridement, no purulence, no streaking cellulitis. Wound Measurements and Assessment WC - Nurse 1 - General Ulcer Measurement Start: 09/17/18 08:14 Freq: Status: Active Protocol: Activity Type Activity Date Activity User E-Sign Co-Sign Detail Recorded Client Recorded Date Recorded By Document 09/17/18 08:16 AN [id number] 09/17/18 08:20 AN 09/17/18 08:16 Wound Center Nurse 1 [Ulcer Assessment] #3 Left Foot- Plantar -Current Size (cm) - Length 0.1 -Current Size (cm) - Width 0.1 -Current Size (cm) - Depth 0.1 -Total Square Cm 0.01 -Photo Taken No -Classification - Thickness Unclassifiable (Eschar Covered ) -Exudate Amt None Present -Wound Margin Thickened -Necrosis Amt None Present (0 %) -Texture (Yu-wound Skin Appearance) Callus -Moisture (Yu-wound Skin Appearance Assessed ) -Color (Yu-wound Skin Appearance) Assessed -Tenderness on Palpation (Yu-wound No Skin Appearance) -Ulcer Cleansing Rinsed/ Irrigated with Saline -Foul Odor after Cleansing No -Anesthetic Used 5% Lidocaine Gel Musculoskeletal: - - Slight tenderness with manipulation of ulcer site Neurological: Sensory exam intact to light touch and pain, - - Patient does have some altered protective sensation to bilateral feet Psych/Mental Status: Normal Affect, Appropriate Debridement Note Wound debrided: Left sub-fourth metatarsal head Laterality: Left Type of Debridement: Selective debridement Anesthesia Used: 4% Lidocaine Solution Depth: in the subcutaneous layer Percentage of wound debrided: 100 Instrument Used: #15 blade Tissue Removed: Slough, hyperkeratotic tissue Severity: Fat Layer Exposed Amount of bleeding with debridement: Mild Bleeding Controlled with: Pressure Patient tolerated procedure well Assessment/Plan Assessment: Ulcer left sub-fourth met head. DM. Pain left foot Plan: Patient was examined and evaluated again today for follow up of ulcer to left sub-fourth metatarsal head. Selective debridement was performed as noted in the clinical panel. Improvement noted this week. Once complete, the ulcer site was carefully cleansed and then dressed with slightly moistened Jessica to the base followed by dry sterile dressing. The patient was instructed to continue with offloading the ulcer site with the assistance of the surgical shoe with offloading insert. Patient has extra felt at home to place in surgical shoe. He is to bring this with him next week if he has any issues. The importance of continued offloading was discussed at great length again today. Patient to continue with CAM walker to left foot as well. Patient has also recently been wearing memory foam slippers to walk short distances in his house. I continue to recommended nutritional supplementation with a high-protein diet in order to optimize wound healing potential for this patient. Importance of tight glycemic control was stressed to the patient today. Smoking cessation was discussed with this patient today. Patient was instructed again to follow up with me at [facility] in order to get the patient in diabetic offloading shoes for [place] [facility] maintenance. Patient was educated on all signs and symptoms of local and systemic infection, and he was instructed to go to the emergency room immediately should he notice any. All other questions were answered to the patient's satisfaction. Patient will follow-up in clinic in 1 week to check on progress, or sooner if needed.
[2018-09-24 08:19] VITALS: BP 126/83; PULSE 88; RESP 18; TEMP 36.2; BMI 24.6
--- NOTE | 2018-09-24 08:48 | PCM.WC.PN ---
(1) Chronic ulcer of left foot with fat layer exposed Status: Chronic Current Visit: No Code(s): L97.522 - Non-pressure chronic ulcer of other part of left foot with fat layer exposed (2) Ulcer of right foot with fat layer exposed Status: Acute Current Visit: No Code(s): L97.512 - Non-pressure chronic ulcer of other part of right foot with fat layer exposed (3) Pain in right foot Status: Acute Current Visit: No Code(s): M79.671 - Pain in right foot (4) Delayed wound healing Status: Acute Current Visit: No Code(s): T14.8XXD - Other injury of unspecified body region, subsequent encounter (5) Diabetes mellitus type 1 Status: Chronic Current Visit: No Qualifiers: Code(s): E10.9 - Type 1 diabetes mellitus without complications Type of Wound Chief Complaint: left plantar foot ulcer History of Wound: This 33-year-old diabetic male presents to the wound healing center for ulcer sub-right fifth metatarsal head that he states re-opened after stepping on one of his kids toys a little over a week ago. He says he tried to use old darío and keep the area offloaded, but he says he was not noticing any improvement and wanted to have the area evaluated in clinic again before it got any worse. He relates that he was walking barefoot at the time of injury. He also says he failed to make an appointment as instructed at his previous discharge in order to be measured for a pair of offloading diabetic shoes. He denies any purulence, surrounding or extending redness, or increase in warmth. He does relate the area is painful at times. Progress of Wound: Ulcer to left forefoot appears healed today. Patient having daily darío dressing changes. Patient denies any feelings, of nausea, vomiting, fever, or chills today. - Physical Exam Vital Signs Temp Pulse Resp BP 97.2 F L 88 18 126/83 H 09/24/18 08:19 09/24/18 08:19 09/24/18 08:19 09/24/18 08:19 General: Alert, Oriented x3, Cooperative, No apparent distress Extremities: Capillary Refill Less than 3 Seconds, No Calf Tenderness - Negative Sean and Sanders signs, Edema - Very slight lower extremity edema, Peripheral Pulses Normal - DP and PT pulses palpable bilateral Skin: Ulcer/ Wound - Ulcers appear healed today Wound Measurements and Assessment WC - Nurse 1 - General Ulcer Measurement Start: 09/17/18 08:14 Freq: Status: Active Protocol: Activity Type Activity Date Activity User E-Sign Co-Sign Detail Recorded Client Recorded Date Recorded By Document 09/24/18 08:19 DL [id number] 09/24/18 08:23 DL 09/24/18 08:19 Wound Center Nurse 1 [Ulcer Assessment] #3 Left Foot- Plantar -Current Size (cm) - Length 0 -Current Size (cm) - Width 0 -Current Size (cm) - Depth 0 -Total Square Cm 0 -Photo Taken Yes -Exudate Amt None Present -Wound Margin Flat & Intact -Granulation Amt Large (67-100%) -Granulation Quality Pale -Necrosis Amt None Present (0 %) -Structure Exposed N/A -Texture (Yu-wound Skin Appearance) Callus -Moisture (Yu-wound Skin Appearance Dry/Scaly ) -Color (Yu-wound Skin Appearance) No Abnormality -Temperature (Yu-wound Skin No Abnormality Appearance) (Pt Warm) -Tenderness on Palpation (Yu-wound No Skin Appearance) -Ulcer Cleansing Rinsed/ Irrigated with Saline -Foul Odor after Cleansing No WC - Nurse 2 - General Ulcer CM Notes Start: 09/17/18 08:14 Freq: Status: Active Protocol: Activity Type Activity Date Activity User E-Sign Co-Sign Detail Recorded Client Recorded Date Recorded By Document 09/24/18 08:33 DV [id number] 09/24/18 08:35 DV 09/24/18 08:33 Wound Center Nurse 2 [Procedure/Treatment] -Time 08:33 -Correct Patient Yes -Correct Side, Site, Position Yes -Correct Procedure No -Procedure Performed No -Type of Procedure Debridement -Clinical Debridement Subcutaneous -Post Debridement Size (cm) - Length 0 -Post Debridement Size (cm) - Width 0 -Post Debridement Size (cm) - Depth 0 -Total Square Cm 0 -Wound/Ulcer Outcome Healed- Epithelialized [See Physician Procedure note for Specifics] Pain Scale: 0-10 Numeric [Pain] -Is Patient Pain Free? Yes Musculoskeletal: No Tenderness to Palpation of Joints or Extremities Neurological: Sensory exam intact to light touch and pain Psych/Mental Status: Normal Affect, Appropriate Debridement Note Post-Debridement Measurements/Treatment WC - Nurse 2 - General Ulcer CM Notes Start: 09/17/18 08:14 Freq: Status: Active Protocol: Activity Type Activity Date Activity User E-Sign Co-Sign Detail Recorded Client Recorded Date Recorded By Document 09/17/18 08:50 DV [id number] 09/17/18 08:52 DV Document 09/24/18 08:33 DV [id number] 09/24/18 08:35 DV 09/17/18 09/24/18 08:50 08:33 Wound Center Nurse 2 #3 Left Foot- Plantar -Time 08:50 08:33 -Correct Patient Yes Yes -Correct Side, Site, Position Yes Yes -Correct Procedure Yes No -Procedure Performed Yes No -Type of Procedure Debridement Debridement -Clinical Debridement Subcutaneous Subcutaneous -Post Debridement Size (cm) - Length 0.1 0 -Post Debridement Size (cm) - Width 0.1 0 -Post Debridement Size (cm) - Depth 0.1 0 -Total Square Cm 0.01 0 -Wound/Ulcer Outcome Not Healed Healed- Epithelialized -Ulcer Cleansing Rinsed/ Irrigated with Saline -Foul Odor after Cleansing No -Bioengineered Tissue No -Bleeding Controlled with Pressure -Offloading No -Type of Offloading Surgical Shoe Pain Scale: 0-10 Numeric Is Patient Pain Free? Yes Yes No debridement was completed today Assessment/Plan Assessment: Ulcer left sub-fourth met head. DM. Pain left foot Plan: Patient was examined and evaluated again today for follow up of ulcer to left sub-fourth metatarsal head. Ulcer appears healed today with no signs of infection noted. No debridement completed today. The patient was instructed to continue with offloading the ulcer site with the assistance of the surgical shoe with offloading insert while skin continues to strengthen and remodel. I continue to recommended nutritional supplementation with a high-protein diet in order to optimize wound healing potential for this patient. Importance of tight glycemic control was stressed to the patient today. Smoking cessation was discussed with this patient today. 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 Patient was educated on all signs and symptoms of local and systemic infection, and he was instructed to go to the emergency room immediately should he notice any. All other questions were answered to the patient's satisfaction. Patient will be discharged from wound healing center at this time, but is to follow up sooner if needed.
--- NOTE | 2018-09-24 08:53 | PN.PCM_ITS ---
(1) Chronic ulcer of left foot with fat layer exposed Status: Chronic Current Visit: No Code(s): L97.522 - Non-pressure chronic ulcer of other part of left foot with fat layer exposed (2) Ulcer of right foot with fat layer exposed Status: Acute Current Visit: No Code(s): L97.512 - Non-pressure chronic ulcer of other part of right foot with fat layer exposed (3) Pain in right foot Status: Acute Current Visit: No Code(s): M79.671 - Pain in right foot (4) Delayed wound healing Status: Acute Current Visit: No Code(s): T14.8XXD - Other injury of unspecified body region, subsequent encounter (5) Diabetes mellitus type 1 Status: Chronic Current Visit: No Qualifiers: Code(s): E10.9 - Type 1 diabetes mellitus without complications Type of Wound Chief Complaint: left plantar foot ulcer History of Wound: This 33-year-old diabetic male presents to the wound healing center for ulcer sub-right fifth metatarsal head that he states re-opened after stepping on one of his kids toys a little over a week ago. He says he tried to use old darío and keep the area offloaded, but he says he was not noticing any improvement and wanted to have the area evaluated in clinic again before it got any worse. He relates that he was walking barefoot at the time of injury. He also says he failed to make an appointment as instructed at his previous discharge in order to be measured for a pair of offloading diabetic shoes. He denies any purulence, surrounding or extending redness, or increase in warmth. He does relate the area is painful at times. Progress of Wound: Ulcer to left forefoot appears healed today. Patient having daily darío dressing changes. Patient denies any feelings, of nausea, vomiting, fever, or chills today. - Physical Exam Vital Signs Temp Pulse Resp BP 97.2 F L 88 18 126/83 H 09/24/18 08:19 09/24/18 08:19 09/24/18 08:19 09/24/18 08:19 General: Alert, Oriented x3, Cooperative, No apparent distress Extremities: Capillary Refill Less than 3 Seconds, No Calf Tenderness - Negative Esan and Sanders signs, Edema - Very slight lower extremity edema, Peripheral Pulses Normal - DP and PT pulses palpable bilateral Skin: Ulcer/ Wound - Ulcers appear healed today Wound Measurements and Assessment WC - Nurse 1 - General Ulcer Measurement Start: 09/17/18 08:14 Freq: Status: Active Protocol: Activity Type Activity Date Activity User E-Sign Co-Sign Detail Recorded Client Recorded Date Recorded By Document 09/24/18 08:19 DL [id number] 09/24/18 08:23 DL 09/24/18 08:19 Wound Center Nurse 1 [Ulcer Assessment] #3 Left Foot- Plantar -Current Size (cm) - Length 0 -Current Size (cm) - Width 0 -Current Size (cm) - Depth 0 -Total Square Cm 0 -Photo Taken Yes -Exudate Amt None Present -Wound Margin Flat & Intact -Granulation Amt Large (67-100%) -Granulation Quality Pale -Necrosis Amt None Present (0 %) -Structure Exposed N/A -Texture (Yu-wound Skin Appearance) Callus -Moisture (Yu-wound Skin Appearance Dry/Scaly ) -Color (Yu-wound Skin Appearance) No Abnormality -Temperature (Yu-wound Skin No Abnormality Appearance) (Pt Warm) -Tenderness on Palpation (Yu-wound No Skin Appearance) -Ulcer Cleansing Rinsed/ Irrigated with Saline -Foul Odor after Cleansing No WC - Nurse 2 - General Ulcer CM Notes Start: 09/17/18 08:14 Freq: Status: Active Protocol: Activity Type Activity Date Activity User E-Sign Co-Sign Detail Recorded Client Recorded Date Recorded By Document 09/24/18 08:33 DV [id number] 09/24/18 08:35 DV 09/24/18 08:33 Wound Center Nurse 2 [Procedure/Treatment] -Time 08:33 -Correct Patient Yes -Correct Side, Site, Position Yes -Correct Procedure No -Procedure Performed No -Type of Procedure Debridement -Clinical Debridement Subcutaneous -Post Debridement Size (cm) - Length 0 -Post Debridement Size (cm) - Width 0 -Post Debridement Size (cm) - Depth 0 -Total Square Cm 0 -Wound/Ulcer Outcome Healed- Epithelialized [See Physician Procedure note for Specifics] Pain Scale: 0-10 Numeric [Pain] -Is Patient Pain Free? Yes Musculoskeletal: No Tenderness to Palpation of Joints or Extremities Neurological: Sensory exam intact to light touch and pain Psych/Mental Status: Normal Affect, Appropriate Debridement Note Post-Debridement Measurements/Treatment WC - Nurse 2 - General Ulcer CM Notes Start: 09/17/18 08:14 Freq: Status: Active Protocol: Activity Type Activity Date Activity User E-Sign Co-Sign Detail Recorded Client Recorded Date Recorded By Document 09/17/18 08:50 DV [id number] 09/17/18 08:52 DV Document 09/24/18 08:33 DV [id number] 09/24/18 08:35 DV 09/17/18 09/24/18 08:50 08:33 Wound Center Nurse 2 #3 Left Foot- Plantar -Time 08:50 08:33 -Correct Patient Yes Yes -Correct Side, Site, Position Yes Yes -Correct Procedure Yes No -Procedure Performed Yes No -Type of Procedure Debridement Debridement -Clinical Debridement Subcutaneous Subcutaneous -Post Debridement Size (cm) - Length 0.1 0 -Post Debridement Size (cm) - Width 0.1 0 -Post Debridement Size (cm) - Depth 0.1 0 -Total Square Cm 0.01 0 -Wound/Ulcer Outcome Not Healed Healed- Epithelialized -Ulcer Cleansing Rinsed/ Irrigated with Saline -Foul Odor after Cleansing No -Bioengineered Tissue No -Bleeding Controlled with Pressure -Offloading No -Type of Offloading Surgical Shoe Pain Scale: 0-10 Numeric Is Patient Pain Free? Yes Yes No debridement was completed today Assessment/Plan Assessment: Ulcer left sub-fourth met head. DM. Pain left foot Plan: Patient was examined and evaluated again today for follow up of ulcer to left sub-fourth metatarsal head. Ulcer appears healed today with no signs of i nfection noted. No debridement completed today. The patient was instructed to continue with offloading the ulcer site with the assistance of the surgical shoe with offloading insert while skin continues to strengthen and remodel. I continue to recommended nutritional supplementation with a high-protein diet in order to optimize wound healing potential for this patient. Importance of tight glycemic control was stressed to the patient today. Smoking cessation was discussed with this patient today. 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 Patient was educated on all signs and symptoms of local and systemic infection, and he was instructed to go to the emergency room immediately should he notice any. All other questions were answered to the patient's satisfaction. Patient will be discharged from wound healing center at this time, but is to follow up sooner if needed.
== END 2018-10-11 23:59 ==
LOC: WC 08:15
PROVIDERS: Family Provider Internal Medicine; PCP Internal Medicine; Referring Provider Podiatrist; Visit Provider Podiatrist
DX: E10.621 Type 1 diabetes mellitus with foot ulcer (principal); L97.512 Non-pressure chronic ulcer of other part of right foot with fat layer exposed; R60.0 Localized edema; M79.671 Pain in right foot
CPT/HCPCS: 97597; 99212; G0463

== ENCOUNTER 2019-04-01 08:00 | Outpatient (RCR) | payer MEDICAID, SELFPAY ==
[2019-04-01 08:14] VITALS: BP 121/71; PULSE 103; RESP 18; TEMP 37.2; BMI 25.2
--- NOTE | 2019-04-01 09:19 | HP.PCM_ITS ---
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 (2) Pain in right foot Status: Acute Current Visit: No Code(s): M79.671 - Pain in right foot (3) Delayed wound healing Status: Acute Current Visit: No Code(s): T14.8XXD - Other injury of unspecified body region, subsequent encounter (4) Diabetes mellitus type 1 Status: Chronic Current Visit: No Code(s): E10.9 - Type 1 diabetes mellitus without complications History of Present Illness Date of Service: 04/01/19 Chief Complaint: right plantar foot ulcer History of Wound: This 33-year-old diabetic male presents to the wound healing center for ulcer sub-right fifth metatarsal head that he states re-opened about 10 days ago. He says he had been trying to trim a callus in the area on his own and made the area very slightly bleed and it has very slowly worsened over the last 10 days. He says he tried to use old dressing supplies and keep the area offloaded, but he says he was not noticing any improvement. He says he knows he made a mistake by again failing to be fitted for diabetic shoes once he was healed 6 months ago. He denies any purulence, surrounding or extending redness, or increase in warmth. He does relate slight tenderness at times. Patient currently denies any feelings of nausea, vomiting, fever, chills. 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) Diabetes mellitus type 1 (Chronic) Diabetes mellitus type 2, uncontrolled, with complications (Chronic) Allergies/Adverse Reactions: Allergies cefprozil [From Cefzil] Allergy (Unknown, Verified 08/20/18 10:01) Unknown industrial glue Allergy (Unknown, Uncoded 08/20/18 10:01) Unknown Home Medications: Ambulatory Orders Medication Instructions Recorded insulin aspart (U-100) 100 unit/mL See Rx Instructions SC QPM #30 ml 02/11/18 (3 mL) subcutaneous pen insulin glargine (U-100) 100 30 unit SC QDAY #15 ml 02/11/18 unit/mL (3 mL) subcutaneous pen pen needle, diabetic 31 gauge x See Dose Instructions .ROUTE 02/11/18/16 .MEDSUPPLY #150 ea blood sugar diagnostic strips See Dose Instructions .ROUTE 07/13/18 .MEDSUPPLY #180 ea blood-glucose meter kit See Dose Instructions .ROUTE 07/13/18 .MEDSUPPLY #1 ea FreeStyle Monse 14 Day [place] See Dose Instructions .ROUTE 08/20/18 .MEDSUPPLY #1 ea NS FreeStyle Monse 14 Day Sensor See Dose Instructions .ROUTE 08/20/18 .MEDSUPPLY #2 ea NS Smoking Status: Current every day smoker Review of Systems Constitutional: Denies: Chills, Fever, Weight Change Cardiovascular: Denies: Chest Pain, Palpitations Respiratory: Denies: Cough, Shortness of Breath Gastrointestinal: Denies: Diarrhea, Nausea, Vomiting Skin: Reports: - - Ulcer right foot - Physical Exam Vital Signs Temp Pulse Resp BP 98.9 F 103 H 18 121/71 H 04/01/19 08:14 04/01/19 08:14 04/01/19 08:14 04/01/19 08:14 General: Alert, Oriented x3, Cooperative, No apparent distress Extremities: No cyanosis, Capillary Refill Less than 3 Seconds - To all distal digits of the right foot, No Calf Tenderness - Negative Sean and Sanders signs bilateral, Edema - Very mild, Peripheral Pulses Normal - DP and PT pulses palpable bilateral Skin: Ulcer/ Wound - Ulcer to right foot sub 5th met head with fat layer exposed. The base is noted to be a mixture of adherent slough, fibrin, devitalized subcutaneous tissue, granular tissue, as well as some slight surrounding hyperkeratotic tissue again this week. Slight maceration surrounding noted as well. There is no probing to bone, no tracking, no unde rmining , no purulence, no streaking cellulitis, no significant increase in warmth.. Wound Measurements and Assessment WC - Nurse 1 - General Ulcer Measurement Start: 04/01/19 08:14 Freq: Status: Active Protocol: Activity Type Activity Date Activity User E-Sign Co-Sign Detail Recorded Client Recorded Date Recorded By Document 04/01/19 08:14 BS [id number] 04/01/19 08:30 BS 04/01/19 08:14 Wound Center Nurse 1 [Ulcer Assessment] #4 R Plantar Foot -Combined with other wound No -Current Size (cm) - Length 0.4 -Current Size (cm) - Width 0.8 -Current Size (cm) - Depth 0.2 -Total Square Cm 0.32 -Date of Last Picture (Recall this 04/01/19 field) -Photo Taken Yes -Classification - Thickness Full Thickness without Exposed Support Structure -Exudate Amt None Present -Wound Margin Thickened -Granulation Quality Pale,Red -Texture (Yu-wound Skin Appearance) Assessed, Scarring -Moisture (Yu-wound Skin Appearance Assessed, ) Maceration,Dry/ Scaly -Temperature (Yu-wound Skin No Abnormality Appearance) (Pt Warm) -Tenderness on Palpation (Yu-wound No Skin Appearance) -Ulcer Cleansing Rinsed/ Irrigated with Saline -Foul Odor after Cleansing No -Anesthetic Used 5% Lidocaine Gel [Edema Assessment] -Lower Limb Edema Present Yes -Point of measurement (cm from the 34.5 medial instep) -Point of Measurement (cm from the 25.5 medial instep) -Point of measurement (cm from the 34.0 medial instep) -Point of Measurement (cm from the 23.0 medial instep) WC - Nurse 2 - General Ulcer CM Notes Start: 04/01/19 08:14 Freq: Status: Active Protocol: Activity Type Activity Date Activity User E-Sign Co-Sign Detail Recorded Client Recorded Date Recorded By Document 04/01/19 08:39 AN [id number] 04/01/19 08:53 AN 04/01/19 08:39 Wound Center Nurse 2 [Procedure/Treatment] #4 R Plantar Foot -Time 08:42 -Correct Patient Yes -Correct Side, Site, Position Yes -Correct Procedure Yes -Procedure Performed Yes -Type of Procedure Debridement -Clinical Debridement Subcutaneous -Post Debridement Size (cm) - Length 0.8 -Post Debridement Size (cm) - Width 1.1 -Post Debridement Size (cm) - Depth 0.2 -Total Square Cm 0.88 -Wound/Ulcer Outcome Not Healed -Ulcer Cleansing Rinsed/ Irrigated with Saline -Foul Odor after Cleansing No -Bioengineered Tissue No -Bleeding Controlled with Pressure -Offloading Yes -Type of Offloading Camwalker -Treatment Response Procedure Tolerated Well [See Physician Procedure note for Specifics] Pain Scale: 0-10 Numeric [Pain] -Is Patient Pain Free? Yes Musculoskeletal: - - Very minor tenderness with manipulation of ulcer site Neurological: Sensory exam intact to light touch and pain - With some altered protective sensation to bilateral feet Psych/Mental Status: Normal Affect, Appropriate Debridement Note Post-Debridement Measurements/Treatment WC - Nurse 2 - General Ulcer CM Notes Start: 04/01/19 08:14 Freq: Status: Active Protocol: Activity Type Activity Date Activity User E-Sign Co-Sign Detail Recorded Client Recorded Date Recorded By Document 04/01/19 08:39 [id number] 04/01/19 08:53 AN 04/01/19 08:39 Wound Center Nurse 2 #4 R Plantar Foot -Time 08:42 -Correct Patient Yes -Correct Side, Site, Position Yes -Correct Procedure Yes -Procedure Performed Yes -Type of Procedure Debridement -Clinical Debridement Subcutaneous -Post Debridement Size (cm) - Length 0.8 -Post Debridement Size (cm) - Width 1.1 -Post Debridement Size (cm) - Depth 0.2 -Total Square Cm 0.88 -Wound/Ulcer Outcome Not Healed -Ulcer Cleansing Rinsed/ Irrigated with Saline -Foul Odor after Cleansing No -Bioengineered Tissue No -Bleeding Controlled with Pressure -Offloading Yes -Type of Offloading Camwalker -Treatment Response Procedure Tolerated Well Pain Scale: 0-10 Numeric Is Patient Pain Free? Yes Wound debrided: Right sub-fifth met head Laterality: Right Type of Debridement: Excisional debridement Anesthesia Used: 5% Lidocaine Gel Depth: in the subcutaneous layer Percentage of wound debrided: 100 Instrument Used: 3mm curette, - - Tissue nipper Tissue Removed: Adherent slough, fibrin, biofilm, devitalized subcutaneous tissue Severity: Fat Layer Exposed Amount of bleeding with debridement: Mild Bleeding Controlled with: Pressure Patient tolerated procedure well Assessment/Plan Assessment: Ulcer right sub-fifth met head. DM. Pain left foot Plan: Patient was examined and evaluated again today for ulcer that reopened sub-right fifth met head 10 days ago. Subcutaneous debridement was performed as noted in the clinical panel. Once complete, the ulcer site was carefully cleansed and then dressed with slightly moistened Jessica to the base followed by dry sterile dressing. Cultures were taken and sent for aerobic, anaerobic, and MRSA PCR evaluation. Patient started on a 10-day course of doxycycline. The importance of continued offloading was discussed at great length again today. Patient to continue with offloading CAM walker to right foot as well. I continue to recommended nutritional supplementation with a high-protein diet in order to optimize wound healing potential for this patient. Importance of tight glycemic control was stressed to the patient today. Smoking cessation was discussed with this patient today. 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 Patient was educated on all signs and symptoms of local and systemic infection, and he was instructed to go to the emergency room immediately should he notice any. All other questions were answered to the patient's satisfaction. Patient will follow-up in clinic in 1 week to check on progress, or sooner if needed.
[2019-04-01 14:45] LABS: M R Staph aureus DNA By PCR Negative (Negative); Probe Check PASS; Specimen Processing Control PASS; Staph aureus DNA By PCR POSITIVE (Negative)
== END 2019-04-12 23:59 ==
LOC: WC 08:00
PROVIDERS: Family Provider Internal Medicine; PCP Internal Medicine; Visit Provider Podiatrist
DX: E10.621 Type 1 diabetes mellitus with foot ulcer (principal); L97.512 Non-pressure chronic ulcer of other part of right foot with fat layer exposed; M79.671 Pain in right foot; E10.65 Type 1 diabetes mellitus with hyperglycemia; M79.672 Pain in left foot; F17.200 Nicotine dependence, unspecified, uncomplicated
CPT/HCPCS: 11042; 87070; 87075; 87077; 87186; 87205; 87640; 99212; G0463

== ENCOUNTER 2019-04-06 10:30 | Observation (INO) | payer MEDICAID, SELFPAY ==
[2019-04-06 10:31] VITALS: BP 104/67; PULSE 106; RESP 18; TEMP 36.6; O2SAT 100; BMI 28.0
--- NOTE | 2019-04-06 10:55 | EKG12_ITS ---
Test Reason : CELLULITIS Blood Pressure : / mmHG Vent. Rate : 092 BPM Atrial Rate : 092 BPM P-R Int : 128 ms QRS Dur : 084 ms QT Int : 340 ms P-R-T Axes : 060 030 051 degrees QTc Int : 420 ms Normal sinus rhythm Normal ECG Confirmed by DELVIN JOHNS ([id number]), loan expeditor TIFFANIE SEGURA ([id number]) on 04/13/2019 1:23:44 PM Referred By: Kristin Hernandes Confirmed By:DELVIN JOHNS
--- NOTE | 2019-04-06 10:59 | ED.VIS.GEN ---
History of Present Illness Chief Complaint: Cellulitis Informant: Patient Onset: Days - 5 Context: Gradual Onset Timing: Continuous Current Severity: Severe Narrative: Patient is a 33-year-old male with history of type 1 diabetes mellitus, chronic right foot wound and peripheral neuropathy presenting with worsening redness swelling and pain of his right lower extremity. Patient states that a week ago he hit his rose at work. Since then he has had worsening redness and swelling of his rose. Patient was started on doxycycline for this as well as his chronic wound that he has on his right foot 5 days ago. With his symptoms worsening he was also started on amoxicillin 3 days ago. Patient states he is been taking his medications as prescribed. Yesterday he has significantly worsening swelling. Today he had worsening redness and pain on his foot. He states that the redness is spreading down his foot which is new. Review shows that patient was seen by Dr. George Meredith at wound care after the callus of his foot ulcer lateral to his fifth metatarsal came off. Cultures positive for staph aureus sensitive to doxycycline. Past Medical History - Allergies and Home Meds Allergies/Adverse Reactions: Allergies cefprozil [From Cefzil] Allergy (Unknown, Verified 04/06/19 10:34) Unknown industrial glue Allergy (Unknown, Uncoded 04/06/19 10:34) Unknown Prior records reviewed: Yes Past Medical History: - - Diabetes mellitus type 1, peripheral neuropathy Surgical History: noncontributory Lives: Spouse/ Significant Other Smoking Status: Current every day smoker - Family History Maternal Family History: Family History (Last Reviewed 08/20/18 @ 10:02 by Verna Grajeda) Father Heart disease Mother Diabetes Review of Systems All systems negative except as indicated General: Reports: Fever - 100.0 at home per Musculoskeletal: Reports: Extremity Pain - Right lower leg Skin: Reports: Rash - Erythema and warmth right lower leg, Wounds - Right anterior rose as well as chronic wound right lateral foot Physical Exam Vital Signs/Narrative: Vital Signs Temp Pulse Resp BP Pulse Ox 04/06/19 10:31 98 F 106 H 18 104/67 100 Inital Vital Signs reviewed: Yes General: Well nourished, Well developed, No Acute Distress Head: Normocephalic, Atraumatic Eyes: Perrl, EOMI ENT: Moist mucous membranes, No rhinorrhea Neck: Supple, Nontender Cardiovascular: Regular rate, Regular rhythm, No murmurs Respiratory: No distress, CTA bilaterally, Chest nontender Abdomen: Soft, Nontender, Nondistended, Normal bowel sounds Back: Nontender, Normal Inspection Extremities: Tenderness - Right lower leg and right foot, Edema - Right lower leg. Negative for: Calf Tenderness Skin: Rash, - - Erythema and warmth from right mid rose distally, chronic appearing wound about 5 mm in diameter on lateral foot at level of the fifth MCP, purulent drainage is present Neurological: Alert, Oriented x3, Cranial nerves II-XII grossly intact, Normal Strength, Normal Sensation Psychological: Normal affect, Normal Mood Diagnostic/Tx/Re-eval Clinical Impression(s) from Imaging Studies Foot X-Ray 04/06/19 12:33 IMPRESSION: Normal x-ray examination of the foot. No radiographic evidence of osteomyelitis. Electronically Signed: Neil Montgomery MD at 12:57 EDT Tel , Service support , Laboratory Data 04/06/19 04/06/19 04/06/19 11:02 11:02 11:02 WBC 12.1 H RBC 4.82 Hgb 14.6 Hct 43.1 MCV 89.4 MCH 30.3 MCHC 33.9 RDW Std Deviation 36.4 RDW Coeff of Sharon 11.4 L Plt Count 271 MPV 10.0 Immature Gran % (Auto) 0.500 Neut % (Auto) 75.6 H Lymph % (Auto) 13.4 L Stephenson % (Auto) 8.8 Eos % (Auto) 1.2 Baso % (Auto) 0.5 Absolute Neuts (auto) 9.1 H Absolute Lymphs (auto) 1.62 Nucleated RBC % 0 ESR 14 PT 13.5 INR 1.1 APTT 34.3 Sodium 138 Potassium 4.1 Chloride 101 Carbon Dioxide 29.0 Anion Gap 8 BUN 13 Creatinine 0.94 Estim Creat Clear Calc 119.05 Est GFR (MDRD) Af Amer 118 Est GFR (MDRD) Non-Af 98 BUN/Creatinine Ratio 13.8 Glucose 251 H Lactic Acid Calcium 9.1 Total Bilirubin 0.70 AST 9 L ALT 17 Alkaline Phosphatase 91 C-React Prot Ext Range 28.70 H Total Protein 7.7 Albumin 3.4 Globulin 4.3 H Albumin/Globulin Ratio 0.8 L 04/06/19 11:02 WBC RBC Hgb Hct MCV MCH MCHC RDW Std Deviation RDW Coeff of Sharon Plt Count MPV Immature Gran % (Auto) Neut % (Auto) Lymph % (Auto) Stephenson % (Auto) Eos % (Auto) Baso % (Auto) Absolute Neuts (auto) Absolute Lymphs (auto) Nucleated RBC % ESR PT INR APTT Sodium Potassium Chloride Carbon Dioxide Anion Gap BUN Creatinine Estim Creat Clear Calc Est GFR (MDRD) Af Amer Est GFR (MDRD) Non-Af BUN/Creatinine Ratio Glucose Lactic Acid 0.9 Calcium Total Bilirubin AST ALT Alkaline Phosphatase C-React Prot Ext Range Total Protein Albumin Globulin Albumin/Globulin Ratio - Rhythm Strip Rhythm Strip: Sinus Rhythm - Medical Decision Making Patient is evaluated for worsening redness and swelling of his right lower extremity. Physical exam is consistent with cellulitis. As patient is already on 2 antibiotics and is worsening symptoms I feel that he needs admission for IV antibiotics. He started on vancomycin. Patient has a normal lactate. He does not meet criteria for severe sepsis or septic shock. He is given 1 L of IV fluids. Ultrasound was obtained which is negative for DVT. Patient is agreeable with plan. He stable in the emergency room and stable at time of disposition. He is admitted to the general medical floor. ED Disposition - Plan for ED Patient: Disposition: Acute Care [facility] Diagnosis: Sepsis, Cellulitis of leg
--- NOTE | 2019-04-06 11:01 | VDLE_ITS ---
Reason For Study: swelling RIGHT LEFT GSV is normal. CFV is compressible, spontaneous, phasic, CFV is compressible, spontaneous, phasic, competent, and demonstrates normal competent and demonstrates normal augmentation. augmentation. FV is compressible, spontaneous, phasic, competent and demonstrates normal augmentation. POP V is compressible, spontaneous, phasic, competent and demonstrates normal augmentation. T/P Trunk is compressible. PTV is compressible. RT PerV is compressible. Procedure Exam performed portable in ED. The exam was diagnostic. A preliminary report was called and/or faxed to Dr. Martines. Interpretation Summary There is no evidence of right lower extremity deep vein thrombosis. Right great saphenous vein appears patent and compressible segmentally. Patent and compressible left common femoral vein Ordering Physician: Minerva Martines Performed By: John Rodríguez RVEsau
[2019-04-06] MEDS: HYDROcodone Bitartrate/Apap 5/325 Tablet PO (11:17)
[2019-04-06 11:26] LABS: Erythrocyte Sedimentation Rate 14 mm/hr (0-15); International Normalized Ratio 1.1; Prothrombin Time (Protime)PT. 13.5 SECONDS (11.7-14.9)
[2019-04-06 11:27] LABS: Partial Thromboplast Time 34.3 Seconds (24.1-36.2)
[2019-04-06 11:28] LABS: Absolute Lymphocyte Count 1.62 X10^3/uL (0.83-4.51); Absolute Neutrophil Count 9.1 X10^3/uL (2.0-7.7); Basophil# 0.06 X10^3/uL; Basophil% 0.5 % (0-1); Eosinophil# 0.14 X10^3/uL; Eosinophils% 1.2 % (0-5); Hematocrit 43.1 % (40-54); Hemoglobin 14.6 g/dL (13.0-16.5); Lymphocyte # 1.62 X10^3/ul (4.0); Lymphocyte % 13.4 % (19-41); Mean Corp Hgb Conc 33.9 g/dL (32-36); Mean Corpuscular Hgb 30.3 pg (27.0-32.0); Mean Corpuscular Volume 89.4 fL (80-94); Monocyte# 1.06 X10^3/uL; Monocyte% 8.8 % (0-10); NRBC Flagged by Analyzer 0 % (0-5); Neutrophil # 9.12 X10^3/uL (2.7-7.7); Neutrophil % 75.6 % (47-70); Platelet Count 271 K/mm3 (150-450); RBC Distribution Width CV 11.4 % (11.6-14.6); RBC Distribution Width SD 36.4 fl (35.1-43.9); Red Blood Count 4.82 M/mm3 (4.6-6.2); White Blood Count 12.1 K/mm3 (4.4-11.0)
[2019-04-06 11:33] LABS: ALB/GLOB Ratio 0.8 RATIO (0.9-2.4); AST(SGOT) 9 U/L (15-37); Alanine Aminotransfer ALT/SGPT 17 U/L (16-61); Albumin, Serum 3.4 g/dL (3.2-5.0); Alkaline Phosphatase 91 U/L (45-117); Anion Gap 8 (5-15); BUN 13 mg/dL (7-18); BUN/Creat Ratio 13.8 RATIO (10-20); Calcium,Total 9.1 mg/dL (8.5-10.1); Chloride 101 mmol/L (98-107); Creatinine, Serum 0.94 mg/dL (0.70-1.30); EST Glomerular Filtration Rate 98 mL/min (>60); Est Glom Filt Rate - Afr Amer 118 mL/min (>60); Estimated Creatinine Clearance 119.05 ml/min; Globulin 4.3 g/dL (2.2-4.2); Glucose 251 mg/dL (74-106); Potassium 4.1 mmol/L (3.5-5.1); Protein, Total 7.7 g/dL (6.4-8.2); Sodium Level 138 mmol/L (136-145)
[2019-04-06 11:45] LABS: Lactic Acid 0.9 mmol/L (0.4-2.0)
[2019-04-06 12:00] VITALS: BP 122/82; PULSE 86; RESP 20; TEMP 36.7; O2SAT 99
--- NOTE | 2019-04-06 12:33 | RAD_ITS ---
STUDY: X-RAY - RIGHT FOOT CLINICAL: Male, 33 years old. Diabetic foot ulcer TECHNIQUE: 3 view(s) of the foot. COMPARISON: 08/06/2018 FINDINGS: Normal talus, calcaneus, and tarsal bones. Normal visualized subtalar, talonavicular, calcaneocuboid, tarsal and tarsometatarsal articulations. Normal metatarsi. Normal metatarsophalangeal joint of the great toe. Normal tibial and fibular sesamoid bones. Normal interphalangeal joint of the great toe. Normal phalanges of the great toe. Normal second through fifth metatarsophalangeal joints. Normal interphalangeal joints and phalanges of the lesser toes. The soft tissue structures are unremarkable. RAD/Foot min 3 Views IMPRESSION: Normal x-ray examination of the foot. No radiographic evidence of osteomyelitis. Electronically Signed: Neil Montgomery MD at 12:57 EDT Tel , Service support ,
--- NOTE | 2019-04-06 13:02 | HP.PCM_ITS ---
History of Present Illness Date of Admission: 04/06/19 Chief Complaint: redness and swelling of right lower extremity The patient is a 33 year old M with a past medical history of type 1 diabetes mellitus. He was admitted with a complaint of right lower extremity redness and swelling for one week. He hit his leg against a stainless steel cupboard last Friday. He subsequently noted the next day that he had some redness and swelling of his RLE. He went to see his health information specialist at the wound center and he was put on p.o. doxycycline. However, symptoms persisted so he was put on p.o. doxycycline. However this did not improve and the swelling and redness worsened with associated pain as he said is coming to the ED today. Patient does have a chronic ulcer on his right foot for which he follows up with Dr. Meredith at the wound care clinic. He had assisted mild fever and states his temperature peaked at 100 ?F at home. However denied any chills or palpitations, dizziness, diarrhea vomiting. This the first time he had such an infection. He admits to his sugar levels not being well controlled and states his A1c about 3 months ago was around 11. In the ED, vitals were significant for heart rate of 106 which subsequently came down to 86 respiratory rate was 20 but went down to 14 at time of review. CBC showed white cell count of 12.1 and CMP was unremarkable. C-reactive protein was elevated at 28, lactic acid was 0.9 and foot x-ray showed no radiographic evidence of osteomyelitis. He has been admitted to be managed for cellulitis of the right lower extremity with failed outpatient therapy. [] Past Medical History Past Medical History (Chronic Problems): Chronic Problems (Last Reviewed 08/20/18 @ 10:02 by Verna Grajeda) Chronic ulcer of left foot with fat layer exposed (Chronic) Diabetes mellitus type 1 (Chronic) Diabetes mellitus type 2, uncontrolled, with complications (Chronic) Medical History: Medical History (Last Reviewed 08/20/18 @ 10:02 by Verna Graejda) Type 1 diabetes mellitus E10.9 Dx : age 19 Last exacerbation : DKA : on dx Hypoglycemic episode : never ER visit : on dx Allergies cefprozil [From Cefzil] Allergy (Unknown, Verified 04/06/19 10:34) Unknown industrial glue Allergy (Unknown, Uncoded 04/06/19 10:34) Unknown Home Medications: Ambulatory Orders Medication Instructions Recorded blood sugar diagnostic strips See Dose Instructions .ROUTE 07/13/18 .MEDSUPPLY #180 ea blood-glucose meter kit See Dose Instructions .ROUTE 07/13/18 .MEDSUPPLY #1 ea FreeStyle Monse 14 Day [place] See Dose Instructions .ROUTE 08/20/18 .MEDSUPPLY #1 ea NS FreeStyle Monse 14 Day Sensor See Dose Instructions .ROUTE 08/20/18 .MEDSUPPLY #2 ea NS Insulin Aspart [Novolog Flexpen] See Protocol SQ ACHS 04/06/19 Insulin Glargine,Hum.rec.anlog 45 unit SQ QHS 04/06/19 [Basaglar Kwikpen U-100] Surgical History: noncontributory Lives: Spouse/ Significant Other Smoking Status: Current every day smoker Tobacco Use: Cigarettes - 1 pack daily Alcohol: None Drugs: None - *Family History Maternal Family History: Family History (Last Reviewed 08/20/18 @ 10:02 by Verna Grajeda) Father Heart disease Mother Diabetes Review of Systems Constitutional: Reports: Fever. Denies: Chills, Malaise, Weakness, Weight Change Eyes: Denies: Blurred vision HEENT: Denies: Head Aches, Sinus Congestion, Sinus Drainage Cardiovascular: Denies: Chest Pain, Palpitations Respiratory: Denies: Cough, Shortness of Breath, Shortness of breath at rest, Shortness of breath upon exertion, Sputum production Gastrointestinal: Denies: Abdominal Pain, Nausea, Vomiting Genitourinary: Denies: Dysuria Musculoskeletal: Reports: Leg Pain. Denies: Arm Pain, Muscle pain Skin: Reports: Skin Changes - redness and swelling of RLE. Denies: Rash, Wounds Neurological: Denies: Numbness, Tingling, Focal weakness Psychiatric: Denies: Anxiety, Depression, Homicidal Ideations, Suicidal Ideations Hematologic/ Lymphatic: Denies: Easy Bruising, Easy Bleeding VTE Information - Inpt Only VTE Present on Admission: No VTE Pharm Prophylaxis ordered?: Yes - Physical Exam General: Alert, Oriented x3, Cooperative, No apparent distress HEENT: Atraumatic, PERRLA, EOMI, Normocephalic Oral: Moist Mucosa Neck: Supple, No JVD, Negative Carotid Bruits Lungs: Clear to auscultation, Normal air movement, No rhonchi, No wheeze, No rales Cardiovascular: Regular rate, Regular Rhythm, Normal S1, Normal S2, No murmurs Abdomen: Bowel Sounds Present, Soft, Non Tender, Non-Distended, No Hepato- splenomegaly Extremities: No clubbing, No cyanosis Skin: - - RLE redness and mild swelling extending from dorsum of right foot to mid rose level. Has superficial ulceration of bottom of right foot, just under little toe, which doesnt look infected. No visible discharge Musculoskeletal: No Tenderness to Palpation of Joints or Extremities Lymphatic: No Cervical, Supraclavicular, or Inguinal Adenopathy Neurological: Cranial nerves II-XII grossly intact, Neuro grossly intact Psych/Mental Status: Normal Affect, Appropriate, Alert and oriented to time, place, person, mood and affect Vital Signs Temp Pulse Resp BP Pulse Ox 98.1 F 86 20 H 122/82 H 99 04/06/19 12:00 04/06/19 12:00 04/06/19 12:00 04/06/19 12:00 04/06/19 12:00 Oxygen Delivery Method Room Air Weight: 201 lb Body Mass Index (BMI) 28.0 Laboratory Tests Past 24 Hrs 04/06/19 04/06/19 04/06/19 11:02 11:02 11:02 WBC 12.1 H RBC 4.82 Hgb 14.6 Hct 43.1 MCV 89.4 MCH 30.3 MCHC 33.9 RDW Std Deviation 36.4 RDW Coeff of Sharon 11.4 L Plt Count 271 MPV 10.0 Immature Gran % (Auto) 0.500 Neut % (Auto) 75.6 H Lymph % (Auto) 13.4 L Gonzales % (Auto) 8.8 Eos % (Auto) 1.2 Baso % (Auto) 0.5 Absolute Neuts (auto) 9.1 H Absolute Lymphs (auto) 1.62 Nucleated RBC % 0 ESR 14 PT 13.5 INR 1.1 APTT 34.3 Sodium 138 Potassium 4.1 Chloride 101 Carbon Dioxide 29.0 Anion Gap 8 BUN 13 Creatinine 0.94 Estim Creat Clear Calc 119.05 Est GFR (MDRD) Af Amer 118 Est GFR (MDRD) Non-Af 98 BUN/Creatinine Ratio 13.8 Glucose 251 H Lactic Acid Calcium 9.1 Total Bilirubin 0.70 AST 9 L ALT 17 Alkaline Phosphatase 91 C-React Prot Ext Range 28.70 H Total Protein 7.7 Albumin 3.4 Globulin 4.3 H Albumin/Globulin Ratio 0.8 L 04/06/19 11:02 WBC RBC Hgb Hct MCV MCH MCHC RDW Std Deviation RDW Coeff of Sharon Plt Count MPV Immature Gran % (Auto) Neut % (Auto) Lymph % (Auto) Gonzales % (Auto) Eos % (Auto) Baso % (Auto) Absolute Neuts (auto) Absolute Lymphs (auto) Nucleated RBC % ESR PT INR APTT Sodium Potassium Chloride Carbon Dioxide Anion Gap BUN Creatinine Estim Creat Clear Calc Est GFR (MDRD) Af Amer Est GFR (MDRD) Non-Af BUN/Creatinine Ratio Glucose Lactic Acid 0.9 Calcium Total Bilirubin AST ALT Alkaline Phosphatase C-React Prot Ext Range Total Protein Albumin Globulin Albumin/Globulin Ratio Diagnostic Data Foot X-Ray 04/06/19 12:33 IMPRESSION: Normal x-ray examination of the foot. No radiographic evidence of osteomyelitis. Electronically Signed: Neil Montgomery MD at 12:57 EDT Tel , Service support , Assessment/Plan All Active Problems (Last Reviewed 08/20/18 @ 10:02 by Verna Grajeda) Ulcer of right foot with fat layer exposed (Acute) Pain in right foot (Acute) Delayed wound healing (Acute) 33 y/o male admitted with a complaint of RLE swelling, redness and tenderness after hitting his RLE against a stainless steel cupboard 1. Cellulitis of the RLE * failed out patient therapy * wbc is 12.1 * admit to Med surg with telemetry * foot xray showed no evidence of osteomyelitis * get blood cultures * start IV clindamycin due to allergy to cefprozil (hence cephalosporins- says he breaks out in hives) * keep foot elevated 2. Type 1 diabetes mellitus * He is compliant with his medication. However he admits that his A1c was 8 months ago was above 11. * On Lantus 30 units in the morning and 45 units in the evening. * Insulin sliding scale. Accu-Cheks before meals at bedtime. * DVT prophylaxis: Lovenox Code Visit Inpatient E&M: 82212 Init Hosp L3
[2019-04-06 14:13] VITALS: BP 122/78; PULSE 89; RESP 16; TEMP 36.9; O2SAT 98
[2019-04-06 14:21] VITALS: BMI 27.3
[2019-04-06 14:27] VITALS: BMI 27.3
[2019-04-06 14:28] LABS: Mucous, Urine 0 SEEN /hpf (<or=2+); Red Blood Cells-Urine 0 SEEN /hpf (0-5); Squamous Epithelial Cells - UA 0 SEEN /hpf (0-5); White Blood Cells 0 SEEN /hpf (0-5)
[2019-04-06 14:36] LABS: Color, Urine Yellow (Yellow); Glucose, Dipstick 1000 mg/dl (Normal); Ketone-Dipstick 5 mg/dl (Negative); Leukocyte Esterase-Dipstick Negative /ul (Negative); Nitrite-Dipstick Negative (Negative); Occult Blood-Urine Negative /ul (Negative); Protein-Dipstick Negative (Negative); Urine Bilirubin Dipstick Negative (Negative); Urine Clarity Sl. Cloudy (Clear); Urine Urobilinogen Normal (Normal)
[2019-04-06 14:50] LABS: Bacteria RARE /hpf (None Seen)
--- NOTE | 2019-04-06 14:56 | NURSING ---
Did not obtain wound culture since there was a wound culture obtained on 04/01/19 at the wound center. culture grew staph aureus.
[2019-04-06] MEDS: Insulin Lispro 100 UNIT/ML INSULN.PEN SC ×2 (15:56→22:06)
[2019-04-06 16:01] LABS: Bedside Glucose 163 mg/dL (70-110)
[2019-04-06 17:54] VITALS: PULSE 92
[2019-04-06] MEDS: Glucerna Shake 120 ML LIQUID PO ×2 (18:08→22:06)
[2019-04-06 19:49] VITALS: PULSE 93
[2019-04-06 20:06] VITALS: BP 118/60; PULSE 85; RESP 20; TEMP 37.1; O2SAT 97
[2019-04-06 22:20] LABS: Bedside Glucose 382 mg/dL (70-110)
[2019-04-06] MEDS: Ibuprofen 600 MG Tablet PO (23:02)
[2019-04-07] VITALS (10 sets, daily range): BP systolic 104–129; BP diastolic 61–73; PULSE 74–96; RESP 14–16; TEMP 36.4–37.1; O2SAT 98–99
[2019-04-07] MEDS: 0.9% NaCl Peripheral Flush Adult/Peds IV ×3 (05:18→22:39)
[2019-04-07 05:54] LABS: Absolute Lymphocyte Count 1.84 X10^3/uL (0.83-4.51); Absolute Neutrophil Count 6.6 X10^3/uL (2.0-7.7); Basophil# 0.06 X10^3/uL; Basophil% 0.6 % (0-1); Eosinophil# 0.23 X10^3/uL; Eosinophils% 2.3 % (0-5); Hematocrit 39.3 % (40-54); Hemoglobin 13.4 g/dL (13.0-16.5); Lymphocyte # 1.84 X10^3/ul (4.0); Lymphocyte % 18.4 % (19-41); Mean Corp Hgb Conc 34.1 g/dL (32-36); Mean Corpuscular Hgb 30.3 pg (27.0-32.0); Mean Corpuscular Volume 88.9 fL (80-94); Mean Platelet Vol. 10.1 fl (6.2-12.0); Monocyte# 1.18 X10^3/uL; Monocyte% 11.8 % (0-10); NRBC Flagged by Analyzer 0 % (0-5); Neutrophil # 6.64 X10^3/uL (2.7-7.7); Neutrophil % 66.2 % (47-70); Platelet Count 253 K/mm3 (150-450); RBC Distribution Width CV 11.3 % (11.6-14.6); RBC Distribution Width SD 35.9 fl (35.1-43.9); Red Blood Count 4.42 M/mm3 (4.6-6.2)
[2019-04-07 06:17] LABS: Anion Gap 7 (5-15); BUN 14 mg/dL (7-18); BUN/Creat Ratio 19.4 RATIO (10-20); Calcium,Total 8.9 mg/dL (8.5-10.1); Chloride 103 mmol/L (98-107); Creatinine, Serum 0.72 mg/dL (0.70-1.30); EST Glomerular Filtration Rate 132 mL/min (>60); Est Glom Filt Rate - Afr Amer 160 mL/min (>60); Estimated Creatinine Clearance 155.42 ml/min; Glucose 275 mg/dL (74-106); Sodium Level 138 mmol/L (136-145)
[2019-04-07] MEDS: Insulin Lispro 100 UNIT/ML INSULN.PEN SC ×4 (06:32→22:34)
[2019-04-07 06:45] LABS: Bedside Glucose 276 mg/dL (70-110)
--- NOTE | 2019-04-07 06:51 | NURSING ---
wound photo: right foot
--- NOTE | 2019-04-07 06:51 | NURSING ---
skin photo: right lower leg
[2019-04-07] MEDS: Glucerna Shake 120 ML LIQUID PO ×4 (09:14→22:39)
[2019-04-07] MEDS: Enoxaparin 40 MG/0.4 ML Syringe SC (09:14)
--- NOTE | 2019-04-07 09:26 | PN_ITS ---
Patient Problems: Active and Suspected Problems (Last Reviewed 08/20/18 @ 10:02 by Verna Grajeda) Sepsis (Acute) Cellulitis of leg (Acute) Subjective: Patient seen and examined. He feels much better today. Pain right lower extremity has improved. Review of systems otherwise negative. Labs and vitals reviewed. Vitals/I&O's: Vital Signs Temp Pulse Resp BP Pulse Ox 98.2 F 74 16 117/62 99 04/07/19 01:55 04/07/19 08:42 04/07/19 01:55 04/07/19 01:55 04/07/19 01:55 Oxygen Delivery Method Room Air Weight: 196 lb Body Mass Index (BMI) 27.3 Intake and Output for Last 24 Hours 04/05/19 04/06/19 04/07/19 23:59 23:59 23:59 Intake Total 863 / 1263 654 / 654 Balance 863 / 1263 654 / 654 General: Alert, Oriented x3, Cooperative, No apparent distress HEENT: Atraumatic, PERRLA, EOMI, Normocephalic Oral: Moist Mucosa Neck: Supple, No JVD, Negative Carotid Bruits Lungs: Clear to auscultation, Normal air movement, No rhonchi, No wheeze, No rales Cardiovascular: Regular rate, Regular Rhythm, Normal S1, Normal S2, No murmurs Abdomen: Bowel Sounds Present, Soft, Non Tender, Non-Distended, No Hepato- splenomegaly Extremities: No clubbing, No cyanosis Skin: - - RLE redness and mild swelling extending from dorsum of right foot to mid rose level. REdness, tenderness and swelling has improved. Has superficial ulceration of bottom of right foot, just under little toe, which doesnt look infected. No visible discharge Musculoskeletal: No Tenderness to Palpation of Joints or Extremities Lymphatic: No Cervical, Supraclavicular, or Inguinal Adenopathy Neurological: Cranial nerves II-XII grossly intact, Neuro grossly intact Psych/Mental Status: Normal Affect, Appropriate, Alert and oriented to time, place, person, mood and affect Laboratory Results 04/06/19 11:02: WBC 12.1 H, RBC 4.82, Hgb 14.6, Hct 43.1, MCV 89.4, MCH 30.3, MCHC 33.9, RDW Std Deviation 36.4, RDW Coeff of Sharon 11.4 L, Plt Count 271, MPV 10.0, Immature Gran % (Auto) 0.500, Neut % (Auto) 75.6 H, Lymph % (Auto) 13.4 L, Gem % (Auto) 8.8, Eos % (Auto) 1.2, Baso % (Auto) 0.5, Absolute Neuts (auto) 9.1 H, Absolute Lymphs (auto) 1.62, Nucleated RBC % 0, ESR 14 04/06/19 11:02: PT 13.5, INR 1.1, APTT 34.3 04/06/19 11:02: Sodium 138, Potassium 4.1, Chloride 101, Carbon Dioxide 29.0, Anion Gap 8, BUN 13, Creatinine 0.94, Estim Creat Clear Calc 119.05, Est GFR (MDRD) Af Amer 118, Est GFR (MDRD) Non-Af 98, BUN/Creatinine Ratio 13.8, Glucose 251 H, Calcium 9.1, Total Bilirubin 0.70, AST 9 L, ALT 17, Alkaline Phosphatase 91, C-React Prot Ext Range 28.70 H, Total Protein 7.7, Albumin 3.4, Globulin 4.3 H, Albumin/Globulin Ratio 0.8 L 04/06/19 11:02: Lactic Acid 0.9 04/06/19 14:20: Urine Color Yellow, Urine Clarity Sl. Cloudy, Urine pH 6.0, Ur Specific [place] 1.010, Urine Protein Negative, Urine Glucose (UA) 1000 H, Urine Ketones 5 H, Urine Occult Blood Negative, Urine Nitrite Negative, Urine Bilirubin Negative, Urine Urobilinogen Normal, Ur Leukocyte Esterase Negative, Urine RBC 0 SEEN, Urine WBC 0 SEEN, Ur Squamous Epith Cells 0 SEEN, Urine Bacteria RARE, Urine Mucus 0 SEEN 04/06/19 15:54: POC Glucose 163 H 04/06/19 21:58: POC Glucose 382 H 04/07/19 05:20: WBC 10.0, RBC 4.42 L, Hgb 13.4, Hct 39.3 L, MCV 88.9, MCH 30.3, MCHC 34.1, RDW Std Deviation 35.9, RDW Coeff of Sharon 11.3 L, Plt Count 253, MPV 10.1, Immature Gran % (Auto) 0.700, Neut % (Auto) 66.2, Lymph % (Auto) 18.4 L, Gem % (Auto) 11.8 H, Eos % (Auto) 2.3, Baso % (Auto) 0.6, Absolute Neuts (auto) 6.6, Absolute Lymphs (auto) 1.84, Nucleated RBC % 0 04/07/19 05:20: Sodium 138, Potassium 4.0, Chloride 103, Carbon Dioxide 28.0, Anion Gap 7, BUN 14, Creatinine 0.72, Estim Creat Clear Calc 155.42, Est GFR (MDRD) Af Amer 160, Est GFR (MDRD) Non-Af 132, BUN/Creatinine Ratio 19.4, Glucose 275 H, Calcium 8.9 04/07/19 06:30: POC Glucose 276 H Current Medications Dextrose (D50w Syringe) 0 gm IV X1 PRN; Protocol PRN Reason: Hypoglycemia Enoxaparin Sodium (Lovenox) 40 mg SC DAILY@1000 DEVEN Last Admin: 04/07/19 09:14 Dose: 40 mg Documented by: Glucagon () 1 mg IM .X1 PRN PRN Reason: Hypoglycemia Clindamycin Phosphate 600 mg/ (Dextrose) 54 mls @ 100 mls/hr IV Q8 DEVEN Last Infusion: 04/07/19 05:51 Dose: Infused Documented by: Sodium Chloride () 250 mls @ 15 mls/hr IV .[id number] PRN PRN Reason: SALINE FLUSH Ibuprofen (Motrin) 600 mg PO Q8H PRN PRN PRN Reason: Pain Score 1-3/10 Last Admin: 04/06/19 23:02 Dose: 600 mg Documented by: Insulin Glargine (Lantus (Bkc)) 45 units SC QHS DEVEN Last Admin: 04/06/19 22:06 Dose: 45 u Documented by: Insulin Human Lispro (Humalog Kwikpen (Bk)) 0 unit SC ACHS [facility]; Protocol Last Admin: 04/07/19 06:32 Dose: 6 units Documented by: Nicotine (Nicoderm Cq ([facility])) 21 mg TRANSDERM. DAILY [facility] Last Admin: 04/07/19 09:14 Dose: Not Given Documented by: Nutritional Formula (Lactose Free) (Glucerna Shake) 120 ml PO 4X/DAY [facility] Last Admin: 04/07/19 09:14 Dose: 120 ml Documented by: Sodium Chloride () 10 - 40 ml IV UD PRN PRN Reason: SALINE FLUSH Last Admin: 04/07/19 05:18 Dose: 10 ml Documented by: Medical Necessity - Tobacco Use Smoking Status: Current every day smoker Tobacco Use: Cigarettes Assessment/Plan All Active Problems (Last Reviewed 08/20/18 @ 10:02 by Verna Grajeda) Ulcer of right foot with fat layer exposed (Acute) Pain in right foot (Acute) Delayed wound healing (Acute) Sepsis (Acute) Cellulitis of leg (Acute) 33 y/o male admitted with a complaint of RLE swelling, redness and tenderness after hitting his RLE against a stainless steel cupboard 1. Cellulitis of the RLE * failed out patient therapy * wbc is down to 10 today * foot xray showed no evidence of osteomyelitis * blood cultures pending * on IV clindamycin 2. Type 1 diabetes mellitus * He is compliant with his medication. However he admits that his A1c was 8 months ago was above 11. * On Lantus 30 units in the morning and 45 units in the evening. * Insulin sliding scale. Accu-Cheks before meals at bedtime. * DVT prophylaxis: Lovenox Code Visit Inpatient E&M: 96880 Subs Hosp L2
[2019-04-07 10:00] LABS: Hemoglobin A1c 8.1 % (4.2-6.3)
--- NOTE | 2019-04-07 10:20 | CASEMGMT ---
RN KYLE Face to Face with patient for initial transition planning/care coordination assessment. RN CM introduced self and role at [facility]. Patient lying in bed, alert and oriented. Patient willing to participate in assessment and is able to answer all questions appropriately. Care providers, pharmacy, and demographics verified. Patient wishes to discharge home, denies need for home health at this time. Patient states he has no further needs or concerns at this time. CM to follow for discharge planning needs that may arise. PCP: Aris Specialists: Erik senior information security architect Preferred Pharmacy: [facility] Insurance: [employer] Prescription Benefit: yes Living Will/HPOA: none LNOK: Living Arrangements: Patient lives with in 1 story home with 3 steps to enter the home. Transportation: self/ DME/HHC: Patient states he has glucometer at home. Denies previous HHC. Disposition Plan: Patient to discharge home with family support and follow-up plans in place. Josephine WOLFF, RN, CM
[2019-04-07 12:20] LABS: Bedside Glucose 232 mg/dL (70-110)
[2019-04-07] MEDS: 0.9% NaCl IVPB Med Flush (250 mL) 15 ML IV (15:03)
[2019-04-07 17:46] LABS: Bedside Glucose 296 mg/dL (70-110)
[2019-04-07 22:55] LABS: Bedside Glucose 321 mg/dL (70-110)
[2019-04-08] VITALS (7 sets, daily range): BP systolic 111–139; BP diastolic 66–89; PULSE 81–104; RESP 16–20; TEMP 36.5–36.9; O2SAT 97–100
[2019-04-08] MEDS: 0.9% NaCl Peripheral Flush Adult/Peds IV (05:21)
[2019-04-08 06:30] LABS: Absolute Lymphocyte Count 2.11 X10^3/uL (0.83-4.51); Absolute Neutrophil Count 7.1 X10^3/uL (2.0-7.7); Basophil# 0.07 X10^3/uL; Basophil% 0.6 % (0-1); Eosinophil# 0.19 X10^3/uL; Eosinophils% 1.8 % (0-5); Hematocrit 45.7 % (40-54); Hemoglobin 14.8 g/dL (13.0-16.5); Lymphocyte # 2.11 X10^3/ul (4.0); Lymphocyte % 19.5 % (19-41); Mean Corp Hgb Conc 32.4 g/dL (32-36); Mean Corpuscular Hgb 29.8 pg (27.0-32.0); Mean Platelet Vol. 9.8 fl (6.2-12.0); Monocyte# 1.33 X10^3/uL; Monocyte% 12.3 % (0-10); NRBC Flagged by Analyzer 0 % (0-5); Neutrophil # 7.08 X10^3/uL (2.7-7.7); Neutrophil % 65.3 % (47-70); Platelet Count 299 K/mm3 (150-450); RBC Distribution Width CV 11.4 % (11.6-14.6); RBC Distribution Width SD 38.5 fl (35.1-43.9); Red Blood Count 4.97 M/mm3 (4.6-6.2); White Blood Count 10.8 K/mm3 (4.4-11.0)
[2019-04-08 06:31] LABS: Bedside Glucose 140 mg/dL (70-110)
[2019-04-08 06:50] LABS: Anion Gap 5 (5-15); BUN 16 mg/dL (7-18); BUN/Creat Ratio 19.1 RATIO (10-20); Calcium,Total 9.3 mg/dL (8.5-10.1); Chloride 104 mmol/L (98-107); Creatinine, Serum 0.84 mg/dL (0.70-1.30); EST Glomerular Filtration Rate 111 mL/min (>60); Est Glom Filt Rate - Afr Amer 135 mL/min (>60); Estimated Creatinine Clearance 133.22 ml/min; Glucose 163 mg/dL (74-106); Potassium 4.1 mmol/L (3.5-5.1); Sodium Level 137 mmol/L (136-145)
[2019-04-08] MEDS: Glucerna Shake 120 ML LIQUID PO ×2 (11:28→13:55)
[2019-04-08] MEDS: Enoxaparin 40 MG/0.4 ML Syringe SC (11:30)
[2019-04-08] MEDS: Insulin Lispro 100 UNIT/ML INSULN.PEN SC (11:40)
[2019-04-08 11:50] LABS: Bedside Glucose 286 mg/dL (70-110)
--- NOTE | 2019-04-08 13:52 | DCINST_ITS ---
- Discharge Diagnoses Current Active Problems: Current Active and Chronic Problems (Last Reviewed 08/20/18 @ 10:02 by Verna Grajeda) Sepsis (Acute) Cellulitis of leg (Acute) You will use the following diet at home:: Calorie/Carbohydrate Controlled (specify 1200, 1400, etc) - resume previous diet Your food should be the consistency of: Regular Your liquids should be the consistency of: Regular/Thin Discharge Activity: Return to Normal Activity Return to work on:: 04/09/19 Weight Bearing Status: Full weight bearing Allergies/Adverse Reactions: Allergies cefprozil [From Cefzil] Allergy (Unknown, Verified 04/06/19 10:34) Unknown industrial glue Allergy (Unknown, Uncoded 04/06/19 10:34) Unknown Medications to take at Discharge blood sugar diagnostic strips See Dose Instructions .ROUTE .MEDSUPPLY #180 ea 07/13/18 blood-glucose meter kit See Dose Instructions .ROUTE .MEDSUPPLY #1 ea 07/13/18 FreeStyle Monse 14 Day [place] See Dose Instructions .ROUTE .MEDSUPPLY #1 ea NS 08/20/18 FreeStyle Monse 14 Day Sensor See Dose Instructions .ROUTE .MEDSUPPLY #2 ea NS 08/20/18 Insulin Aspart [Novolog Flexpen] See Protocol SQ ACHS 04/06/19 Insulin Glargine,Hum.rec.anlog [Basaglar Kwikpen U-100] 45 unit SQ QHS 04/06/19 Doxycycline Hyclate [Vibramycin] 100 mg PO BID #17 cap 04/08/19 The following prescriptions were given: Doxycycline Hyclate [Vibramycin] 100 mg PO BID #17 cap Primary Care Physician: Magdiel Hurst MD [Primary Care Provider] - Please follow up with your Primary Care Physician in: in 7-10 days Test Results: Test results from this visit will be discussed in further detail at your follow- up appointment, if applicable.
--- NOTE | 2019-04-09 08:47 | DS.PCM_ITS ---
Discharge Date and Diagnosis Date of Admission: 04/06/19 Date of Discharge: 04/08/19 - Primary Discharge Diagnosis #1 cellulitis of the right lower leg-failed outpatient treatment, secondary to staph or strep #2 type 1 diabetes - Secondary Discharge Diagnosis Chronic Problems (Last Reviewed 08/20/18 @ 10:02 by Verna Grajeda) Chronic ulcer of left foot with fat layer exposed (Chronic) Diabetes mellitus type 1 (Chronic) Diabetes mellitus type 2, uncontrolled, with complications (Chronic) Hospital Course and Treatment Consultations 04/06/19 14:00 Consult: Onc/Wound/robotics technologist Routine Comment: Operations: None Procedures: None Summary of Care Provided: The patient is a 33 year old M was seen in the emergency room at [facility] with chief complaint of redness, swelling, and discomfort of his right lower leg. Patient been seen as an outpatient and had been placed on amoxicillin but his symptoms persisted and he came to the emergency room for evaluation. Lab obtained in the emergency room showed an elevated white blood cell count, blood sugar was elevated at 251. Patient was given IV vancomycin in the emergency room, he was placed in observation status on MedSurg 3 and placed on IV clindamycin. Patient's symptoms improved on the IV clindamycin. On 04/08/2019, patient was seen and examined: On examination he appeared in good health and spirits. Vital signs as documented. Skin warm and dry and without overt rashes. Neck without JVD. Lungs clear. Heart exam notable for regular rhythm, normal sounds and absence of murmurs, rubs or gallops. Abdomen unremarkable and without evidence of organomegaly, masses, or abdominal aortic enlargement. Extremities there is evidence of redness and slight edema of the right lower leg just proximal to the right ankle area on the anterior aspect of the right lower leg, no open wounds were noted, there was a small puncture wound noted which did not show evidence of drainage.. Neuro: Cranial nerves II through XII are grossly intact, no focal motor deficits were noted, sensation to light touch and pinprick intact. Psych: Patient is alert and oriented x3, he does not appear anxious or depressed On 04/08/2019, patient was seen and examined felt to be in stable condition for discharge home - Physical Exam Vital Signs Temp Pulse Resp BP Pulse Ox 98.5 F 104 H 16 139/89 H 100 04/08/19 14:15 04/08/19 14:15 04/08/19 14:15 04/08/19 14:15 04/08/19 14:15 Oxygen Delivery Method Room Air Weight: 88.9 kg Body Mass Index (BMI) 27.3 Intake and Output for Last 24 Hours 04/07/19 04/08/19 04/09/19 23:59 23:59 23:59 Intake Total 1681.00 / 1681.00 715.25 / 715.25 Balance 1681.00 / 1681.00 715.25 / 715.25 Microbiology Past 72 Hours 04/06/19 14:20 Urine Culture - Final Urine, Clean Catch Culture exhibits no growth. 04/06/19 11:50 Blood Culture - Preliminary Blood Culture (Wb) - Anticubital Right No growth in 48 hours. 04/06/19 11:02 Blood Culture - Preliminary Blood Culture (Wb) - Anticubital Left No growth in 48 hours. POC Glucose 04/08/19 11:38 POC Glucose 286 H Discharge Activity: Return to Normal Activity Return to work on:: 04/09/19 Weight Bearing Status: Full weight bearing Home Medications: Medications to take at Discharge blood sugar diagnostic strips See Dose Instructions .ROUTE .MEDSUPPLY #180 ea 07/13/18 blood-glucose meter kit See Dose Instructions .ROUTE .MEDSUPPLY #1 ea 07/13/18 FreeStyle Monse 14 Day [place] See Dose Instructions .ROUTE .MEDSUPPLY #1 ea NS 08/20/18 FreeStyle Monse 14 Day Sensor See Dose Instructions .ROUTE .MEDSUPPLY #2 ea NS 08/20/18 Insulin Aspart [Novolog Flexpen] See Protocol SQ ACHS 04/06/19 Insulin Glargine,Hum.rec.anlog [Basaglar Kwikpen U-100] 45 unit SQ QHS 04/06/19 Doxycycline Hyclate [Vibramycin] 100 mg PO BID #17 cap 04/08/19 Gabapentin [Neurontin] 300 mg PO UD PRN #90 cap 04/08/19 Oxycodone HCl/Acetaminophen [Percocet 5/325] 1 tab PO Q6H PRN PRN 5 Days #20 tab 04/08/19 Following Prescrptions Were Given to Patient: Doxycycline Hyclate [Vibramycin] 100 mg PO BID #17 cap Primary Care Physician: Magdiel Hurst MD [Primary Care Provider] - Please follow up with your Primary Care Physician in: in 7-10 days Disposition: Home Minutes spent on discharge:: 31 Patient Condition:: Stable Medical Necessity - Tobacco Use Smoking Status: Current every day smoker Tobacco Use: Cigarettes Meaningful Use Info Meaningful Use Diagnoses (Choose all that apply): None applicable Code Visit OBSV E&M: 62534 Observation care discharge
== END 2019-04-08 14:30 | disposition home or self-care (01) ==
LOC: ED 10:59 → MS3 14:07
PROVIDERS: Admitting Provider Student in an Organized Health Care Education/Training Program; Emergency Provider Emergency Medicine; Family Provider Internal Medicine; PCP Internal Medicine; Referring Provider Student in an Organized Health Care Education/Training Program; Visit Provider Internal Medicine
DX: E10.621 Type 1 diabetes mellitus with foot ulcer (principal); F17.210 Nicotine dependence, cigarettes, uncomplicated; E10.42 Type 1 diabetes mellitus with diabetic polyneuropathy; L97.522 Non-pressure chronic ulcer of other part of left foot with fat layer exposed; L03.115 Cellulitis of right lower limb; E10.65 Type 1 diabetes mellitus with hyperglycemia; Z79.4 Long term (current) use of insulin
CPT/HCPCS: 36415; 73630; 80048; 80053; 81001; 82962; 83036; 83605; 85025; 85610; 85652; 85730; 86140; 87040; 87086; 93005; 93971; 96365; 96366; 96367; 96372; 97802; 99218; 99283; 99285; 99406; J7030; J7050; A4216; G0378

== ENCOUNTER 2019-04-08 20:10 | Emergency (ER) | payer MEDICAID, SELFPAY ==
[2019-04-08 20:12] VITALS: BP 98/64; PULSE 119; RESP 18; TEMP 36.8; O2SAT 99; BMI 27.3
--- NOTE | 2019-04-08 20:59 | ED.DCSUM_ITS ---
History of Present Illness Chief Complaint: Cellulitis Informant: Patient Onset: Today - Suddenly worse Context: Sudden Onset Timing: Intermittent Quality: Burning electrical shock like pain Location: Anterior right leg Current Severity: Mild Maximum Severity: Severe Worsened by: Walking and touch Relieved by: Nothing Associated Symptoms: No associated symptoms Narrative: Patient is a 33-year-old male who was admitted to the hospital discharged today. He was diagnosed with sepsis secondary to cellulitis right leg. He is diabetic and has diabetic neuropathy. He has no other complaints other than leg pain. He states he is on Cymbalta for the neuropathic pain is been on the Cymbalta for 90 days. He states it is not helping. Apparently his insurance only approved Cymbalta he does not know whether his insurance would approve gabapentin Prior similar symptoms: Yes Recent Illness/Hospitalization: Yes - Past Medical History (1) History of diabetic neuropathy Status: Acute (2) Cellulitis of leg Status: Acute (3) Diabetes mellitus type 1 Status: Chronic Past Medical History - Allergies and Home Meds Allergies/Adverse Reactions: Allergies cefprozil [From Cefzil] Allergy (Unknown, Verified 04/08/19 20:14) Unknown industrial glue Allergy (Unknown, Uncoded 04/08/19 20:14) Unknown Primary Care Physician: Magdiel Hurst MD [Primary Care Provider] - Prior records reviewed: Yes Surgical History: noncontributory Lives: Spouse/ Significant Other Smoking Status: Current every day smoker Alcohol: None Review of Systems General: Denies: Chills, Fever, Sweats Skin: Reports: Rash, Wounds. Denies: Abscess, Abrasions Neurological: Reports: Parasthesia. Denies: Weakness, Numbness Hematologic: Denies: Easy bruising, Easy bleeding Physical Exam Vital Signs/Narrative: Vital Signs Temp Pulse Resp BP Pulse Ox 04/08/19 20:12 98.2 F 119 H 18 98/64 99 Inital Vital Signs reviewed: Yes General: Well nourished, Well developed, No Acute Distress Head: Normocephalic, Atraumatic Eyes: Perrl, EOMI. Negative for: Pale conjunctiva, Scleral icterus ENT: Moist mucous membranes, No rhinorrhea Cardiovascular: Regular rate, Regular rhythm Respiratory: No distress Extremities: No edema, Tenderness - Tenderness over the anterior distal right leg. There is improving cellulitis. Is no evidence of abscess. There is small hematoma noted. DP and PT pulses are palpable.. Negative for: Nontender Skin: Normal color, Rash Neurological: Alert, Oriented x3, Cranial nerves II-XII grossly intact, Normal Strength, Normal Sensation Psychological: Normal affect, Normal Mood Diagnostic/Tx/Re-eval - Medical Decision Making Patient has exacerbation of his diabetic neuropathy secondary infection. Will treat with short course of opiate analgesia and prescription for gabapentin. ED Disposition - Plan for ED Patient: Disposition: Home or Assisted Living Diagnosis: Diabetic neuropathy associated with type 1 diabetes mellitus Instructions: NEUROPATHY, Peripheral Prescriptions: Gabapentin [Neurontin] 300 mg PO UD PRN #90 cap PRN Reason: Pain Score 1-10/10 Transmission Status: Pending to [facility] Oxycodone HCl/Acetaminophen [Percocet 5/325] 1 tablet PO Q6H PRN PRN 5 Days #20 tablet PRN Reason: Pain Score 1-10/10 Transmission Status: Sent to [facility] Referrals: Magdiel Hurst MD [Primary Care Provider] - Keep Sosa appointment Additional Instructions: Prescription was electronically transmitted to [facility] located on [facility]
[2019-04-08 21:13] VITALS: BP 98/64; PULSE 119; RESP 18; TEMP 36.8; O2SAT 99
[2019-04-08 21:20] VITALS: PULSE 87; RESP 18; O2SAT 100
[2019-04-08] MEDS: oxyCODONE 5 MG Tablet PO (21:20)
== END 2019-04-08 21:22 | disposition home or self-care (01) ==
LOC: ED 21:06
PROVIDERS: Emergency Provider Emergency Medicine; Family Provider Internal Medicine; PCP Internal Medicine
DX: E10.40 Type 1 diabetes mellitus with diabetic neuropathy, unspecified (principal); L03.115 Cellulitis of right lower limb; F17.200 Nicotine dependence, unspecified, uncomplicated; Z79.4 Long term (current) use of insulin

== ENCOUNTER 2019-04-15 10:36 | Emergency (ER) | payer MEDICAID, SELFPAY ==
[2019-04-15 09:22] VITALS: BMI 27.3
[2019-04-15 10:37] VITALS: BP 122/71; PULSE 93; RESP 16; TEMP 36.8; O2SAT 100; BMI 28.2
--- NOTE | 2019-04-15 11:57 | RAD_ITS ---
STUDY: X-RAY - RIGHT TIBIA AND FIBULA REASON FOR EXAM: Male, 34 years old. History of cellulitis. TECHNIQUE: 2 view(s) of the tibia and fibula were obtained. COMPARISON: None. FINDINGS: Normal visualized tibia. Normal visualized fibula. Diffuse soft tissue swelling. RAD/Tibia & Fibula 2 Views IMPRESSION: Diffuse soft tissue swelling. Electronically Signed: Brennan Castañeda, at 12:56 EDT , Service support ,
--- NOTE | 2019-04-15 11:59 | ED.DCSUM_ITS ---
- ER Visit Summary Date of Service: 04/15/19 Chief Complaint: Right lower extremity cellulitis History of Present Illness: The patient is a 34 M history of type 1 diabetes and lower extremity infections. Treated at the wound care center. Patient was admitted 1 week ago at [facility]. Today followed up with wound care center Dr. Meredith the family services assistant thought this was looking worse and when he was sent to ER for further evaluation. Patient denies any fever or chills. Currently he is on doxycycline. Physical Examination: Well-appearing young male. Vital signs stable afebrile he does not look septic toxic no distress. H EENT exam unremarkable. Neck nontender no lymphadenopathy. Lungs clear to auscultation bilaterally. Heart regular rhythm no murmur. Abdomen is soft and nontender. Extremities moves all 4. He has decreased sensation in both feet is present but decreased he has no neuropathies. He does have a palpable DP pulse in his right foot. His right lower leg mid rose has an area of a wound and cellulitis. There is yellowish discharge. No randall pus. There is no lymphangitic streaking. No swelling of the knee or pain in the right hip. No inguinal lymphadenopathy. Neurologically is awake and alert. No focal motor deficits. Test Results: CBC shows a white count of 10. Hemoglobin 13. Chemistries normal. Glucose of 190. Normal creatinine and gap. Sed rate 16. X-rays of his right tib-fib 2 views shows no acute abnormality other than some mild soft tissue swelling. There is no air. No osteomyelitis or acute bony abnormalities. Read both by the radiologist and myself. Emergency Department Course and Treatment: Patient treated with IV Zosyn. Labs and x-ray being obtained. Treatment Plan: P exam patient is doing well at 1520. Is comfortable being discharged home. He thinks this looks much better than it did for 5 days ago. I did call Dr. Meredith's family services assistant and he is comfortable with us discharging the patient home with follow-up with the wound care center next . Patient Johnny has a scheduled appointment knows return if he is feeling worse. Worsening redness, streaks or fever. He is currently on antibiotics and will continue that prescription. Disposition: dc Impression: Acute right lower extremity cellulitis History of type 1 diabetes This note was generated with Voxel (Intern[employer])ation software. It may contain incorrect words, spelling, and punctuation that were not noted in review of the chart prior to signing ED Disposition - Plan for ED Patient: Referrals: Magdiel Hurst MD [Primary Care Provider] -
[2019-04-15 12:11] LABS: Erythrocyte Sedimentation Rate 16 mm/hr (0-15)
[2019-04-15 12:24] LABS: Absolute Lymphocyte Count 2.03 X10^3/uL (0.83-4.51); Absolute Neutrophil Count 7.1 X10^3/uL (2.0-7.7); Basophil# 0.07 X10^3/uL; Basophil% 0.7 % (0-1); Eosinophil# 0.15 X10^3/uL; Eosinophils% 1.5 % (0-5); Hematocrit 40.3 % (40-54); Hemoglobin 13.6 g/dL (13.0-16.5); Lymphocyte # 2.03 X10^3/ul (4.0); Lymphocyte % 20.2 % (19-41); Mean Corp Hgb Conc 33.7 g/dL (32-36); Mean Corpuscular Hgb 30.4 pg (27.0-32.0); Mean Corpuscular Volume 90.2 fL (80-94); NRBC Flagged by Analyzer 0 % (0-5); Neutrophil # 7.07 X10^3/uL (2.7-7.7); Neutrophil % 70.2 % (47-70); Platelet Count 305 K/mm3 (150-450); RBC Distribution Width CV 11.1 % (11.6-14.6); Red Blood Count 4.47 M/mm3 (4.6-6.2); White Blood Count 10.1 K/mm3 (4.4-11.0)
[2019-04-15 12:29] LABS: Anion Gap 5 (5-15); BUN 17 mg/dL (7-18); BUN/Creat Ratio 19.5 RATIO (10-20); Calcium,Total 8.8 mg/dL (8.5-10.1); Chloride 106 mmol/L (98-107); Creatinine, Serum 0.87 mg/dL (0.70-1.30); EST Glomerular Filtration Rate 106 mL/min (>60); Est Glom Filt Rate - Afr Amer 129 mL/min (>60); Estimated Creatinine Clearance 127.42 ml/min; Glucose 190 mg/dL (74-106); Potassium 3.9 mmol/L (3.5-5.1); Sodium Level 141 mmol/L (136-145)
[2019-04-15 12:32] VITALS: BP 126/81; PULSE 85; RESP 16; TEMP 36.6; O2SAT 99
[2019-04-15 14:40] VITALS: BP 119/80; RESP 16; O2SAT 98
--- NOTE | 2019-04-15 15:32 | ED.DEP ---
ED Disposition - Plan for ED Patient: Disposition: Home or Assisted Living Instructions: Cellulitis Referrals: Magdiel Hurst MD [Primary Care Provider] - As Needed Additional Instructions: Continue your current antibiotic as prescribed. Continue wound care as instructed by the wound care center. Follow-up with your wound care appointment next . Return to the ER if you feel worse, fever or the leg is looking a lot worse like red streaks.
[2019-04-15 15:34] VITALS: BP 133/80; PULSE 77; RESP 16; O2SAT 99
== END 2019-04-15 15:40 | disposition home or self-care (01) ==
PROVIDERS: Emergency Provider Emergency Medicine; Family Provider Internal Medicine; PCP Internal Medicine
DX: L03.115 Cellulitis of right lower limb (principal); E10.9 Type 1 diabetes mellitus without complications; Z79.4 Long term (current) use of insulin; Z72.0 Tobacco use
CPT/HCPCS: 73590; 80048; 85025; 85652; 96365; 99285; J7050; A4216

== ENCOUNTER 2019-05-13 08:15 | Outpatient (RCR) | payer MEDICAID, SELFPAY ==
[2019-04-13 01:17] VITALS: BP 121/71; PULSE 103; RESP 18; TEMP 37.2
[2019-04-15 09:22] VITALS: BP 129/78; PULSE 96; RESP 18; TEMP 36.7
--- NOTE | 2019-04-15 09:47 | WC ---
recommended to seek further evaluation at [facility] today per Dr. Meredith
--- NOTE | 2019-04-15 12:28 | PCM.WC.PN ---
(1) Ulcer of right lower extremity with fat layer exposed Status: Acute Current Visit: Yes Code(s): L97.912 - Non-pressure chronic ulcer of unspecified part of right lower leg with fat layer exposed (2) Ulcer of right foot with fat layer exposed Status: Acute Current Visit: No Code(s): L97.512 - Non-pressure chronic ulcer of other part of right foot with fat layer exposed (3) Pain in right foot Status: Acute Current Visit: No Code(s): M79.671 - Pain in right foot (4) Delayed wound healing Status: Acute Current Visit: No Code(s): T14.8XXD - Other injury of unspecified body region, subsequent encounter (5) Diabetes mellitus type 1 Status: Chronic Current Visit: No Code(s): E10.9 - Type 1 diabetes mellitus without complications Type of Wound Date of Service: 04/15/19 Chief Complaint: right plantar foot ulcer History of Wound: This 33-year-old diabetic male presents to the wound healing center for ulcer sub-right fifth metatarsal head that he states re-opened about 10 days ago. He says he had been trying to trim a callus in the area on his own and made the area very slightly bleed and it has very slowly worsened over the last 10 days. He says he tried to use old dressing supplies and keep the area offloaded, but he says he was not noticing any improvement. He says he knows he made a mistake by again failing to be fitted for diabetic shoes once he was healed 6 months ago. He denies any purulence, surrounding or extending redness, or increase in warmth. He does relate slight tenderness at times. Patient currently denies any feelings of nausea, vomiting, fever, chills. Progress of Wound: Patient missed appointment last week due to being admitted to the hospital for right lower extremity cellulitis. Patient currently on doxycycline. Patient states there is still redness to his lower leg. He feels the foot ulcer continues to look good. He still relates pain to the right lower leg. He currently denies any feelings of nausea, vomiting, fever, chills - Physical Exam Vital Signs Temp Pulse Resp BP 98.0 F 96 18 129/78 H 04/15/19 09:22 04/15/19 09:22 04/15/19 09:22 04/15/19 09:22 General: Alert, Oriented x3, Cooperative Extremities: No cyanosis, Capillary Refill Less than 3 Seconds - To distal digits of the right foot, No Calf Tenderness - Negative Sean and Sanders signs bilateral, Edema - Mild lower extremity edema with right being worse than left, Peripheral Pulses Normal - DP and PT pulses palpable bilateral Skin: Ulcer/ Wound - Ulcer with fat layer exposed to anterior right rose. Base is a mixture of adherent slough, fibrin, devitalized subcutaneous tissue, biofilm. There is some serous drainage appreciated to the area, no randall purulence noted today. There is noted surrounding edema, cellulitis, and increased warmth to the right lower leg as well as slight area onto the dorsal proximal aspect of the foot. Ulcer to right foot sub 5th met head with fat layer exposed. The base is noted to be a mixture of adherent slough, fibrin, devitalized subcutaneous tissue, granular tissue, as well as some slight surrounding hyperkeratotic tissue again this week. There is no probing to bone, no tracking, no undermining , no purulence, no streaking cellulitis, no significant increase in warmth. Wound Measurements and Assessment WC - Nurse 1 - General Ulcer Measurement Start: 04/15/19 09:22 Freq: Status: Active Protocol: Activity Type Activity Date Activity User E-Sign Co-Sign Detail Recorded Client Recorded Date Recorded By Document 04/15/19 09:22 MD [id number] 04/15/19 09:33 MD 04/15/19 09:22 Wound Center Nurse 1 [Ulcer Assessment] #5 Right Rose -Current Size (cm) - Length 6.1 -Current Size (cm) - Width 4.2 -Current Size (cm) - Depth 0.1 -Total Square Cm 25.62 -Date of Last Picture (Recall this 04/15/19 field) -Photo Taken Yes -Exudate Amt Medium -Exudate Type Serous -Wound Margin Flat & Intact -Granulation Amt Medium (34-66%) -Granulation Quality Pale,[place] -Necrosis Amt Medium (34-66%) -Necrotic Tissue Type Adherent Slough -Texture (Yu-wound Skin Appearance) Assessed, Localized Edema -Moisture (Yu-wound Skin Appearance Assessed, ) Weeping -Color (Yu-wound Skin Appearance) Assessed, Erythema -Temperature (Yu-wound Skin No Abnormality Appearance) (Pt Warm) -Tenderness on Palpation (Yu-wound No Skin Appearance) -Ulcer Cleansing Wound Cleanser -Foul Odor after Cleansing No -Anesthetic Used 4% Lidocaine Solution #4 R Plantar Foot -Current Size (cm) - Length 1.0 -Current Size (cm) - Width 0.5 -Current Size (cm) - Depth 0.5 -Total Square Cm 0.50 -Exudate Amt Small -Exudate Type Sanguineous -Wound Margin Thickened & Rolled Under -Granulation Amt Large (67-100%) -Granulation Quality Pale,[place] -Necrosis Amt Small (1-33%) -Necrotic Tissue Type Adherent Slough -Texture (Yu-wound Skin Appearance) Assessed,Callus -Moisture (Yu-wound Skin Appearance Assessed, ) Maceration -Color (Yu-wound Skin Appearance) Assessed -Temperature (Yu-wound Skin No Abnormality Appearance) (Pt Warm) -Tenderness on Palpation (Yu-wound No Skin Appearance) -Ulcer Cleansing Wound Cleanser -Foul Odor after Cleansing No -Anesthetic Used 5% Lidocaine Gel [Edema Assessment] -Right Calf (cm) 41 -Right Ankle (cm) 25 WC - Nurse 2 - General Ulcer CM Notes Start: 04/15/19 09:22 Freq: Status: Active Protocol: Activity Type Activity Date Activity User E-Sign Co-Sign Detail Recorded Client Recorded Date Recorded By Document 04/15/19 09:44 AN [id number] 04/15/19 09:50 AN 04/15/19 09:44 Wound Center Nurse 2 [Procedure/Treatment] #5 Right Rose -Time 09:46 -Procedure Performed No -Wound/Ulcer Outcome Not Healed #4 R Plantar Foot -Time 09:46 -Procedure Performed No [See Physician Procedure note for Specifics] Pain Scale: 0-10 Numeric [Pain] -Is Patient Pain Free? Yes Musculoskeletal: Tenderness - With manipulation of right lower rose ulcer site Neurological: Sensory exam intact to light touch and pain - With some altered sensation appreciated to bilateral feet Psych/Mental Status: Normal Affect, Appropriate Debridement Note Post-Debridement Measurements/Treatment - Nurse 2 - General Ulcer CM Notes Start: 04/15/19 09:22 Freq: Status: Active Protocol: Activity Type Activity Date Activity User E-Sign Co-Sign Detail Recorded Client Recorded Date Recorded By Document 04/15/19 09:44 AN [id number] 04/15/19 09:50 AN 04/15/19 09:44 Wound Center Nurse 2 #5 Right Rose -Time 09:46 -Procedure Performed No -Wound/Ulcer Outcome Not Healed #4 R Plantar Foot -Time 09:46 -Procedure Performed No Pain Scale: 0-10 Numeric Is Patient Pain Free? Yes No debridement was completed today Assessment/Plan Active Problems (Last Reviewed 08/20/18 @ 10:02 by Verna Grajeda) Ulcer of right lower extremity with fat layer exposed (Acute) Assessment: Ulcer right sub-fifth met head. DM. Pain left foot Plan: Patient was examined and evaluated again today for ulcer to right plantar foot and a new ulcer to his right lower rose. Patient missed his appointment last week because he was admitted for right lower extremity cellulitis. Patient relates that he was admitted to the hospital for observation for a couple of days and was discharged on oral antibiotics. He relates he has not noticed much improvement since he has been discharged and is still complaining of pain to his right lower leg. No debridement was performed today. The ulcer sites were carefully cleansed and then dressed with Adaptic to the base followed by dry sterile dressing. Due to the patient's ulcer appearance the right lower leg as well as him stating he has not seen much improvement since she was discharged a week ago, I recommend the patient return to the emergency room to be evaluated and to have lab work and further imaging performed. I discussed the case with the emergency room physician. The patient will be going to the emergency room as soon as he leaves the wound healing center. The importance of continued offloading was discussed at great length again today. Patient to continue with offloading CAM walker to right foot as well. I continue to recommended nutritional supplementation with a high-protein diet in order to optimize wound healing potential for this patient. Importance of tight glycemic control was stressed to the patient today. Smoking cessation was discussed with this patient today. Patient was educated on all signs and symptoms of local and systemic infection, and he was instructed to go to the emergency room immediately should he notice any. All other questions were answered to the patient's satisfaction. Patient will follow-up in clinic in 1 week to check on progress, or sooner if needed.
[2019-04-22 09:22] VITALS: BP 122/72; PULSE 94; RESP 16; TEMP 37; BMI 27.3
--- NOTE | 2019-04-22 09:58 | PCM.WC.PN ---
(1) Ulcer of right lower extremity with fat layer exposed Status: Acute Current Visit: Yes Code(s): L97.912 - Non-pressure chronic ulcer of unspecified part of right lower leg with fat layer exposed (2) Ulcer of right foot with fat layer exposed Status: Acute Current Visit: No Code(s): L97.512 - Non-pressure chronic ulcer of other part of right foot with fat layer exposed (3) Pain in right foot Status: Acute Current Visit: No Code(s): M79.671 - Pain in right foot (4) Delayed wound healing Status: Acute Current Visit: No Code(s): T14.8XXD - Other injury of unspecified body region, subsequent encounter (5) Diabetes mellitus type 1 Status: Chronic Current Visit: No Code(s): E10.9 - Type 1 diabetes mellitus without complications Type of Wound Date of Service: 04/22/19 Chief Complaint: right plantar foot ulcer History of Wound: This 33-year-old diabetic male presents to the wound healing center for ulcer sub-right fifth metatarsal head that he states re-opened about 10 days ago. He says he had been trying to trim a callus in the area on his own and made the area very slightly bleed and it has very slowly worsened over the last 10 days. He says he tried to use old dressing supplies and keep the area offloaded, but he says he was not noticing any improvement. He says he knows he made a mistake by again failing to be fitted for diabetic shoes once he was healed 6 months ago. He denies any purulence, surrounding or extending redness, or increase in warmth. He does relate slight tenderness at times. Patient currently denies any feelings of nausea, vomiting, fever, chills. Progress of Wound: Patient returns to clinic today for right anterior rose and right plantar foot ulcer. Patient continues to take antibiotics. He currently denies any feelings of nausea, vomiting, fever, chills - Physical Exam Vital Signs Temp Pulse Resp BP 98.6 F 94 16 122/72 H 04/22/19 09:22 04/22/19 09:22 04/22/19 09:22 04/22/19 09:22 General: Alert, Oriented x3, Cooperative, No apparent distress Extremities: No cyanosis, Capillary Refill Less than 3 Seconds - To distal digits of the right foot, No Calf Tenderness - Negative Sean and Sanders signs bilateral, Edema - Remedy edema with right being worse than left, Peripheral Pulses Normal - DP and PT pulses palpable bilateral Skin: Ulcer/ Wound - Ulcer with fat layer exposed to anterior right rose. Base is a mixture of adherent slough, fibrin, devitalized subcutaneous tissue, biofilm. No drainage noted today. There is improving edema and much improved erythema surrounding the site. The base is a mixture of adherent slough, devitalized subcutaneous tissue, fibrin, biofilm. Ulcer to right foot sub 5th met head with fat layer exposed. The base is noted to be a mixture of adherent slough, fibrin, devitalized subcutaneous tissue, granular tissue, as well as some slight surrounding hyperkeratotic tissue again this week. There is no probing to bone, no tracking, no undermining , no purulence, no streaking cellulitis, no significant increase in warmth. Wound Measurements and Assessment WC - Nurse 1 - General Ulcer Measurement Start: 04/15/19 09:22 Freq: Status: Active Protocol: Activity Type Activity Date Activity User E-Sign Co-Sign Detail Recorded Client Recorded Date Recorded By Document 04/22/19 09:22 [facility] [id number] 04/22/19 09:28 [facility] 04/22/19 09:22 Wound Center Nurse 1 [Ulcer Assessment] #5 Right Rose -Combined with other wound No -Current Size (cm) - Length 4.6 -Current Size (cm) - Width 1.8 -Current Size (cm) - Depth 0.1 -Total Square Cm 8.28 -Photo Taken No -Epithelialization None Present -Tunneling No -Undermining/Tunneling No -Circular Undermining No -Exudate Amt None Present -Wound Margin Distinct, Outline Attached -Granulation Amt Small (1-33%) -Granulation Quality Red -Slough/Fibrin Yes -Necrosis Amt Large (67-100%) -Necrotic Tissue Type Adherent Slough -Texture (Yu-wound Skin Appearance) Assessed, Scarring -Moisture (Yu-wound Skin Appearance Assessed,Dry/ ) Scaly -Color (Yu-wound Skin Appearance) Assessed, Erythema -Temperature (Yu-wound Skin No Abnormality Appearance) (Pt Warm) -Tenderness on Palpation (Yu-wound No Skin Appearance) -Ulcer Cleansing Rinsed/ Irrigated with Saline -Foul Odor after Cleansing No -Anesthetic Used 5% Lidocaine Gel #4 R Plantar Foot -Combined with other wound No -Current Size (cm) - Length 0.3 -Current Size (cm) - Width 0.4 -Current Size (cm) - Depth 0.3 -Total Square Cm 0.12 -Photo Taken No -Epithelialization None Present -Tunneling No -Undermining/Tunneling No -Circular Undermining No -Exudate Amt Small -Exudate Type Serous -Wound Margin Distinct, Outline Attached -Granulation Amt Medium (34-66%) -Granulation Quality Red -Slough/Fibrin Yes -Necrosis Amt Small (1-33%) -Necrotic Tissue Type Adherent Slough -Texture (Yu-wound Skin Appearance) Callus -Moisture (Yu-wound Skin Appearance Assessed,Dry/ ) Scaly -Color (Yu-wound Skin Appearance) Assessed -Temperature (Yu-wound Skin No Abnormality Appearance) (Pt Warm) -Tenderness on Palpation (Yu-wound No Skin Appearance) -Ulcer Cleansing Rinsed/ Irrigated with Saline -Foul Odor after Cleansing No -Anesthetic Used 5% Lidocaine Gel WC - Nurse 2 - General Ulcer CM Notes Start: 04/15/19 09:22 Freq: Status: Active Protocol: Activity Type Activity Date Activity User E-Sign Co-Sign Detail Recorded Client Recorded Date Recorded By Document 04/22/19 09:39 AN [id number] 04/22/19 09:43 AN 04/22/19 09:39 Wound Center Nurse 2 [Procedure/Treatment] #5 Right Rose -Time 09:41 -Correct Patient Yes -Correct Side, Site, Position Yes -Correct Procedure Yes -Procedure Performed Yes -Type of Procedure Debridement -Clinical Debridement Subcutaneous -Post Debridement Size (cm) - Length 4.3 -Post Debridement Size (cm) - Width 2.4 -Post Debridement Size (cm) - Depth 0.1 -Total Square Cm 10.32 -Wound/Ulcer Outcome Not Healed -Foul Odor after Cleansing No -Bioengineered Tissue No -Bleeding Controlled with Pressure -Offloading Yes -Treatment Response Procedure Tolerated Well #4 R Plantar Foot -Time 09:40 -Correct Patient Yes -Correct Side, Site, Position Yes -Correct Procedure Yes -Procedure Performed Yes -Type of Procedure Debridement -Clinical Debridement Subcutaneous -Post Debridement Size (cm) - Length 0.8 -Post Debridement Size (cm) - Width 1.0 -Post Debridement Size (cm) - Depth 0.2 -Total Square Cm 0.80 -Wound/Ulcer Outcome Not Healed -Ulcer Cleansing Rinsed/ Irrigated with Saline -Foul Odor after Cleansing No -Bioengineered Tissue No -Bleeding Controlled with Pressure -Offloading Yes -Treatment Response Procedure Tolerated Well [See Physician Procedure note for Specifics] Pain Scale: 0-10 Numeric [Pain] -Is Patient Pain Free? Yes Musculoskeletal: Tenderness - With manipulation of right lower rose Neurological: Sensory exam intact to light touch and pain - With some altered sensation appreciated bilateral feet consistent with patient's diabetic status Psych/Mental Status: Normal Affect, Appropriate Debridement Note Post-Debridement Measurements/Treatment WC - Nurse 2 - General Ulcer CM Notes Start: 04/15/19 09:22 Freq: Status: Active Protocol: Activity Type Activity Date Activity User E-Sign Co-Sign Detail Recorded Client Recorded Date Recorded By Document 04/15/19 09:44 AN [id number] 04/15/19 09:50 AN Document 04/22/19 09:39 AN [id number] 04/22/19 09:43 AN 04/15/19 04/22/19 09:44 09:39 Wound Center Nurse 2 #5 Right Rose -Time 09:46 09:41 -Correct Patient Yes -Correct Side, Site, Position Yes -Correct Procedure Yes -Procedure Performed No Yes -Type of Procedure Debridement -Clinical Debridement Subcutaneous -Post Debridement Size (cm) - Length 4.3 -Post Debridement Size (cm) - Width 2.4 -Post Debridement Size (cm) - Depth 0.1 -Total Square Cm 10.32 -Wound/Ulcer Outcome Not Healed Not Healed -Foul Odor after Cleansing No -Bioengineered Tissue No -Bleeding Controlled with Pressure -Offloading Yes -Treatment Response Procedure Tolerated Well #4 R Plantar Foot -Time 09:46 09:40 -Correct Patient Yes -Correct Side, Site, Position Yes -Correct Procedure Yes -Procedure Performed No Yes -Type of Procedure Debridement -Clinical Debridement Subcutaneous -Post Debridement Size (cm) - Length 0.8 -Post Debridement Size (cm) - Width 1.0 -Post Debridement Size (cm) - Depth 0.2 -Total Square Cm 0.80 -Wound/Ulcer Outcome Not Healed -Ulcer Cleansing Rinsed/ Irrigated with Saline -Foul Odor after Cleansing No -Bioengineered Tissue No -Bleeding Controlled with Pressure -Offloading Yes -Treatment Response Procedure Tolerated Well Pain Scale: 0-10 Numeric Is Patient Pain Free? Yes Yes Wound debrided: Right sub-fifth metatarsal head Laterality: Right Type of Debridement: Excisional debridement Anesthesia Used: 5% Lidocaine Gel Depth: in the subcutaneous layer Percentage of wound debrided: 100 Instrument Used: #15 blade, - - Tissue nipper Tissue Removed: Devitalized subcutaneous tissue, adherent slough, fibrin, biofilm Severity: Fat Layer Exposed Amount of bleeding with debridement: Mild Bleeding Controlled with: Pressure Patient tolerated procedure well - Additional Wound Wound debrided: Right anterior rose Laterality: Right Type of Debridement: Excisional debridement Anesthesia Used: 5% Lidocaine Gel Depth: in the subcutaneous layer Percentage of wound debrided: 100 Instrument Used: 3mm curette Tissue Removed: Devitalized subcutaneous tissue, adherent slough, fibrin, biofilm Severity: Fat Layer Exposed Amount of bleeding with debridement: Mild Bleeding Controlled with: Pressure Patient tolerated procedure: Patient tolerated procedure well Assessment/Plan Active Problems (Last Reviewed 08/20/18 @ 10:02 by Verna Grajeda) Ulcer of right lower extremity with fat layer exposed (Acute) Assessment: Ulcer right sub-fifth met head. DM. Pain left foot Plan: Patient was examined and evaluated again today for ulcer to right plantar foot and his right lower rose. Patient has shown much improvement over the course of the last week. Patient continues with his oral antibiotics. Patient also relates that the pain in the right anterior rose is improving. Subcutaneous excisional debridement was performed as noted in the clinical panel to each ulcer site. The ulcer sites were carefully cleansed and then dressed with Adaptic and Aquacel Ag to the right anterior rose ulcer base followed by dry sterile dressing. Jessica was applied to the sub-fifth met ulcer site followed by dry sterile dressing. The importance of continued offloading was discussed at great length again today. Patient has offloading cam walker for the right foot, however this irritates the anterior rose ulcer site so he will take a break from wearing this currently. He will be in an offloading surgical shoe. I continue to recommended nutritional supplementation with a high-protein diet in order to optimize wound healing potential for this patient. Importance of tight glycemic control was stressed to the patient today. Smoking cessation was discussed with this patient today. Patient was educated on all signs and symptoms of local and systemic infection, and he was instructed to go to the emergency room immediately should he notice any. All other questions were answered to the patient's satisfaction. Patient will follow-up in clinic in 1 week to check on progress, or sooner if needed.
[2019-04-29 09:23] VITALS: BP 123/66; PULSE 89; RESP 18; BMI 27.3
--- NOTE | 2019-04-29 11:30 | PCM.WC.PN ---
(1) Ulcer of right lower extremity with fat layer exposed Status: Acute Current Visit: Yes Code(s): L97.912 - Non-pressure chronic ulcer of unspecified part of right lower leg with fat layer exposed (2) Ulcer of right foot with fat layer exposed Status: Acute Current Visit: No Code(s): L97.512 - Non-pressure chronic ulcer of other part of right foot with fat layer exposed (3) Pain in right foot Status: Acute Current Visit: No Code(s): M79.671 - Pain in right foot (4) Delayed wound healing Status: Acute Current Visit: No Code(s): T14.8XXD - Other injury of unspecified body region, subsequent encounter (5) Diabetes mellitus type 1 Status: Chronic Current Visit: No Code(s): E10.9 - Type 1 diabetes mellitus without complications Type of Wound Date of Service: 04/29/19 Chief Complaint: right plantar foot ulcer History of Wound: This 33-year-old diabetic male presents to the wound healing center for ulcer sub-right fifth metatarsal head that he states re-opened about 10 days ago. He says he had been trying to trim a callus in the area on his own and made the area very slightly bleed and it has very slowly worsened over the last 10 days. He says he tried to use old dressing supplies and keep the area offloaded, but he says he was not noticing any improvement. He says he knows he made a mistake by again failing to be fitted for diabetic shoes once he was healed 6 months ago. He denies any purulence, surrounding or extending redness, or increase in warmth. He does relate slight tenderness at times. Patient currently denies any feelings of nausea, vomiting, fever, chills. Progress of Wound: Patient returns to clinic today for right anterior rose and right plantar foot ulcer. He currently denies any feelings of nausea, vomiting, fever, chills - Physical Exam Vital Signs Temp Pulse Resp BP 98.6 F 89 18 123/66 H 04/22/19 09:22 04/29/19 09:23 04/29/19 09:23 04/29/19 09:23 General: Alert, Oriented x3, Cooperative, No apparent distress Extremities: No cyanosis, Capillary Refill Less than 3 Seconds - To distal digits of the right foot, No Calf Tenderness - Negative Sean and Sanders signs bilateral, Edema - Lower extremity edema with right being worse than left, Peripheral Pulses Normal - DP and PT pulses palpable bilateral Skin: Ulcer/ Wound - Ulcer with fat layer exposed to anterior right rose. Base is a mixture of adherent slough, fibrin, devitalized subcutaneous tissue, biofilm. No drainage noted today. There is improving edema and erythema surrounding the site. The base is a mixture of adherent slough, devitalized subcutaneous tissue, fibrin, biofilm. Ulcer to right foot sub 5th met head with fat layer exposed. Ulcer site was tracking onto the dorsal foot today. The base is noted to be a mixture of adherent slough, fibrin, devitalized subcutaneous tissue, granular tissue, as well as some slight surrounding hyperkeratotic tissue again this week. There is no probing to bone, no tracking, no undermining , no purulence, no streaking cellulitis, no significant increase in warmth. Wound Measurements and Assessment WC - Nurse 1 - General Ulcer Measurement Start: 04/15/19 09:22 Freq: Status: Active Protocol: Activity Type Activity Date Activity User E-Sign Co-Sign Detail Recorded Client Recorded Date Recorded By Document 04/29/19 09:23 [place] [id number] 04/29/19 09:30 CA 04/29/19 09:23 Wound Center Nurse 1 [Ulcer Assessment] #5 Right Rose -Current Size (cm) - Length 4.0 -Current Size (cm) - Width 2.1 -Current Size (cm) - Depth 0.1 -Total Square Cm 8.40 -Wound Margin Flat & Intact -Granulation Amt Medium (34-66%) -Granulation Quality Pale,[place] -Necrosis Amt Medium (34-66%) -Necrotic Tissue Type Adherent Slough -Texture (Yu-wound Skin Appearance) Assessed, Localized Edema ,Rash -Moisture (Yu-wound Skin Appearance Assessed ) -Color (Yu-wound Skin Appearance) Assessed, Erythema -Temperature (Yu-wound Skin No Abnormality Appearance) (Pt Warm) -Tenderness on Palpation (Yu-wound No Skin Appearance) -Ulcer Cleansing Rinsed/ Irrigated with Saline -Foul Odor after Cleansing No -Anesthetic Used 4% Lidocaine Solution #4 R Plantar Foot -Current Size (cm) - Length 2 -Current Size (cm) - Width 0.9 -Current Size (cm) - Depth 0.8 -Total Square Cm 1.8 -Circular Undermining Yes -Exudate Amt Small -Exudate Type Serosanguineous -Wound Margin Thickened & Rolled Under -Granulation Amt Large (67-100%) -Granulation Quality Pale,[place] -Necrosis Amt Small (1-33%) -Necrotic Tissue Type Adherent Slough -Texture (Yu-wound Skin Appearance) Assessed -Moisture (Yu-wound Skin Appearance Assessed ) -Color (Yu-wound Skin Appearance) Assessed, Erythema -Temperature (Yu-wound Skin No Abnormality Appearance) (Pt Warm) -Tenderness on Palpation (Yu-wound No Skin Appearance) -Ulcer Cleansing Rinsed/ Irrigated with Saline -Anesthetic Used 5% Lidocaine Gel [Edema Assessment] -Lower Limb Edema Present NA WC - Nurse 2 - General Ulcer CM Notes Start: 04/15/19 09:22 Freq: Status: Active Protocol: Activity Type Activity Date Activity User E-Sign Co-Sign Detail Recorded Client Recorded Date Recorded By Document 04/29/19 09:38 AN [id number] 04/29/19 09:50 AN 04/29/19 09:38 Wound Center Nurse 2 [Procedure/Treatment] #5 Right Rose -Time 09:48 -Correct Patient Yes -Correct Side, Site, Position Yes -Correct Procedure Yes -Procedure Performed Yes -Type of Procedure Debridement -Clinical Debridement Subcutaneous -Post Debridement Size (cm) - Length 3.5 -Post Debridement Size (cm) - Width 2.2 -Post Debridement Size (cm) - Depth 0.1 -Total Square Cm 7.70 -Wound/Ulcer Outcome Not Healed -Ulcer Cleansing Rinsed/ Irrigated with Saline -Foul Odor after Cleansing No -Bioengineered Tissue No -Bleeding Controlled with Pressure -Offloading Yes -Type of Offloading Surgical Shoe -Treatment Response Procedure Tolerated Well #4 R Plantar Foot -Time 09:44 -Correct Patient Yes -Correct Side, Site, Position Yes -Correct Procedure Yes -Procedure Performed Yes -Type of Procedure Debridement -Clinical Debridement Subcutaneous -Post Debridement Size (cm) - Length 3.0 -Post Debridement Size (cm) - Width 2.3 -Post Debridement Size (cm) - Depth 0.3 -Total Square Cm 6.90 -Wound/Ulcer Outcome Not Healed -Ulcer Cleansing Rinsed/ Irrigated with Saline -Foul Odor after Cleansing No -Bioengineered Tissue No -Bleeding Controlled with Pressure -Offloading Yes -Type of Offloading Surgical Shoe -Treatment Response Procedure Tolerated Well [See Physician Procedure note for Specifics] Pain Scale: 0-10 Numeric [Pain] -Is Patient Pain Free? Yes Musculoskeletal: Tenderness - With manipulation of right lower rose Neurological: Sensory exam intact to light touch and pain - With some altered sensation appreciated to bilateral feet consistent with patient's diabetic status Psych/Mental Status: Normal Affect, Appropriate Debridement Note Post-Debridement Measurements/Treatment WC - Nurse 2 - General Ulcer CM Notes Start: 04/15/19 09:22 Freq: Status: Active Protocol: Activity Type Activity Date Activity User E-Sign Co-Sign Detail Recorded Client Recorded Date Recorded By Document 04/15/19 09:44 AN [id number] 04/15/19 09:50 AN Document 04/22/19 09:39 AN [id number] 04/22/19 09:43 AN Document 04/29/19 09:38 AN [id number] 04/29/19 09:50 AN 04/15/19 04/22/19 04/29/19 09:44 09:39 09:38 Wound Center Nurse 2 #5 Right Rose -Time 09:46 09:41 09:48 -Correct Patient Yes Yes -Correct Side, Site, Position Yes Yes -Correct Procedure Yes Yes -Procedure Performed No Yes Yes -Type of Procedure Debridement Debridement -Clinical Debridement Subcutaneous Subcutaneous -Post Debridement Size (cm) - Length 4.3 3.5 -Post Debridement Size (cm) - Width 2.4 2.2 -Post Debridement Size (cm) - Depth 0.1 0.1 -Total Square Cm 10.32 7.70 -Wound/Ulcer Outcome Not Healed Not Healed Not Healed -Ulcer Cleansing Rinsed/ Irrigated with Saline -Foul Odor after Cleansing No No -Bioengineered Tissue No No -Bleeding Controlled with Pressure Pressure -Offloading Yes Yes -Type of Offloading Surgical Shoe -Treatment Response Procedure Procedure Tolerated Well Tolerated Well #4 R Plantar Foot -Time 09:46 09:40 09:44 -Correct Patient Yes Yes -Correct Side, Site, Position Yes Yes -Correct Procedure Yes Yes -Procedure Performed No Yes Yes -Type of Procedure Debridement Debridement -Clinical Debridement Subcutaneous Subcutaneous -Post Debridement Size (cm) - Length 0.8 3.0 -Post Debridement Size (cm) - Width 1.0 2.3 -Post Debridement Size (cm) - Depth 0.2 0.3 -Total Square Cm 0.80 6.90 -Wound/Ulcer Outcome Not Healed Not Healed -Ulcer Cleansing Rinsed/ Rinsed/ Irrigated with Irrigated with Saline Saline -Foul Odor after Cleansing No No -Bioengineered Tissue No No -Bleeding Controlled with Pressure Pressure -Offloading Yes Yes -Type of Offloading Surgical Shoe -Treatment Response Procedure Procedure Tolerated Well Tolerated Well Pain Scale: 0-10 Numeric Is Patient Pain Free? Yes Yes Yes Wound debrided: Right sub-fifth metatarsal head Laterality: Right Type of Debridement: Excisional debridement Anesthesia Used: 5% Lidocaine Gel Depth: in the subcutaneous layer Percentage of wound debrided: 100 Instrument Used: #15 blade, - - Tissue nipper Tissue Removed: Devitalized subcutaneous tissue, adherent slough, fibrin, biofilm Severity: Fat Layer Exposed Amount of bleeding with debridement: Mild Bleeding Controlled with: Pressure Patient tolerated procedure well Assessment/Plan Active Problems (Last Reviewed 08/20/18 @ 10:02 by Verna Grajeda) Ulcer of right lower extremity with fat layer exposed (Acute) Assessment: Ulcer right sub-fifth met head. DM. Pain left foot Plan: Patient was examined and evaluated again today for ulcer to right plantar foot and his right lower rose. Ulcer to sub-fifth met head is larger this week due to an area that was tracking onto the dorsal foot. There is some faint surrounding erythema to the area, but there is no streaking cellulitis, no increased warmth, and no purulence appreciated. There is no probing to bone. This site was cultured and sent for aerobic, anaerobic, and MRSA PCR evaluation. A new doxycycline prescription was also dispensed to the patient today. Patient also relates that the pain in the right anterior rose is improving. Subcutaneous excisional debridement was performed as noted in the clinical panel to each ulcer site. The ulcer sites were carefully cleansed and then dressed with Adaptic and Aquacel Ag to the right anterior rose ulcer base followed by dry sterile dressing. Jessica was applied to the sub-fifth met ulcer site followed by dry sterile dressing. The importance of continued offloading was discussed at great length again today. Patient has offloading cam walker for the right foot, however this irritates the anterior rose ulcer site so he will take a break from wearing this currently. He will be in an offloading surgical shoe. Patient continues to be extremely busy on his feet at work and I continue to inform him that this is only going to make his situation worse. I stressed the importance of taking some time off of work to completely rest and relax the foot. He says he understands this and will try to do a better job and will have a discussion with his boss. I continue to recommended nutritional supplementation with a high-protein diet in order to optimize wound healing potential for this patient. Importance of tight glycemic control was stressed to the patient today. Smoking cessation was discussed with this patient today. Patient was educated on all signs and symptoms of local and systemic infection, and he was instructed to go to the emergency room immediately should he notice any. All other questions were answered to the patient's satisfaction. Patient will follow-up in clinic in 1 week to check on progress, or sooner if needed.
[2019-04-29 14:33] LABS: M R Staph aureus DNA By PCR Negative (Negative); Probe Check PASS; Specimen Processing Control PASS; Staph aureus DNA By PCR NEGATIVE (Negative)
[2019-05-05 09:34] VITALS: BP 135/84; PULSE 98; RESP 18; TEMP 36.6; BMI 27.3
--- NOTE | 2019-05-05 23:15 | PN.PCM_ITS ---
(1) Ulcer of right lower extremity with fat layer exposed Status: Chronic Current Visit: Yes Code(s): L97.912 - Non-pressure chronic ulcer of unspecified part of right lower leg with fat layer exposed (2) Cellulitis of leg Status: Resolved Current Visit: Yes Code(s): L03.119 - Cellulitis of unspecified part of limb (3) Delayed wound healing Status: Chronic Current Visit: Yes Code(s): T14.8XXD - Other injury of unspecified body region, subsequent encounter (4) Ulcer of right foot with fat layer exposed Status: Chronic Current Visit: Yes Code(s): L97.512 - Non-pressure chronic ulcer of other part of right foot with fat layer exposed (5) Diabetes mellitus type 2, uncontrolled, with complications Status: Chronic Current Visit: Yes Code(s): E11.8 - Type 2 diabetes mellitus with unspecified complications; E11.65 - Type 2 diabetes mellitus with hyperglycemia Type of Wound Date of Service: 05/05/19 Chief Complaint: right plantar foot ulcer and right leg History of Wound: This 34-year-old diabetic male presents to the wound healing center for ulcer sub-right fifth metatarsal head that he states re-opened recently. He denies any purulence, surrounding or extending redness, or increase in warmth. He does relate slight tenderness at times. Patient currently denies any feelings of nausea, vomiting, fever, chills. He relates he was recently infected in which she was started on oral antibiotics by Dr. Meredith. He relates this is 200% better and his redness and pain have resolved. This is a courtesy visit for Dr. Meredith and the case was discussed in detail yesterday. Progress of Wound: Stable and improved - Physical Exam Vital Signs Temp Pulse Resp BP 98 F 98 18 135/84 H 05/05/19 09:34 05/05/19 09:34 05/05/19 09:34 05/05/19 09:34 General: Alert, Oriented x3, Cooperative, No apparent distress Extremities: No cyanosis, Capillary Refill Less than 3 Seconds, No Calf [place] - Negative Sean and Sanders signs, Edema - Mild, Peripheral Pulses Normal Skin: Ulcer/ Wound - No purulence, erythema, streaking, odor, maceration, necrosis, deep tissue exposure, infection right. The ulcer beds are granular and fibrous with some peripheral callus, - - The peripheral skin is atrophic Wound Measurements and Assessment WC - Nurse 1 - General Ulcer Measurement Start: 04/15/19 09:22 Freq: Status: Active Protocol: Activity Type Activity Date Activity User E-Sign Co-Sign Detail Recorded Client Recorded Date Recorded By Document 05/05/19 09:34 DL [id number] 05/05/19 09:43 DL 05/05/19 09:34 Wound Center Nurse 1 [Ulcer Assessment] #5 Right Villavicencio -Current Size (cm) - Length 3 -Current Size (cm) - Width 1.6 -Current Size (cm) - Depth 0.2 -Total Square Cm 4.8 -Photo Taken No -Exudate Amt Small -Exudate Type Yellow/Green -Wound Margin Distinct, Outline Attached -Granulation Amt None Present (0 %) -Necrosis Amt Large (67-100%) -Necrotic Tissue Type Adherent Slough -Structure Exposed N/A -Texture (Yu-wound Skin Appearance) Scarring -Moisture (Yu-wound Skin Appearance Dry/Scaly ) -Color (Yu-wound Skin Appearance) Rubor -Temperature (Yu-wound Skin No Abnormality Appearance) (Pt Warm) -Tenderness on Palpation (Yu-wound No Skin Appearance) -Ulcer Cleansing Rinsed/ Irrigated with Saline -Foul Odor after Cleansing No -Anesthetic Used 5% Lidocaine Gel #4 R Plantar Foot -Current Size (cm) - Length 0.7 -Current Size (cm) - Width 2.8 -Current Size (cm) - Depth 0.2 -Total Square Cm 1.96 -Photo Taken No -Exudate Amt Small -Exudate Type Serosanguineous -Wound Margin Distinct, Outline Attached -Granulation Amt Small (1-33%) -Granulation Quality Red -Necrosis Amt Small (1-33%) -Necrotic Tissue Type Adherent Slough -Structure Exposed N/A -Texture (Yu-wound Skin Appearance) Scarring -Moisture (Yu-wound Skin Appearance Dry/Scaly ) -Color (Yu-wound Skin Appearance) Rubor -Temperature (Yu-wound Skin No Abnormality Appearance) (Pt Warm) -Tenderness on Palpation (Yu-wound No Skin Appearance) -Ulcer Cleansing Rinsed/ Irrigated with Saline -Foul Odor after Cleansing No -Anesthetic Used 5% Lidocaine Gel [Edema Assessment] -Right Calf (cm) 38.5 -Right Ankle (cm) 25.5 WC - Nurse 2 - General Ulcer CM Notes Start: 04/15/19 09:22 Freq: Status: Active Protocol: Activity Type Activity Date Activity User E-Sign Co-Sign Detail Recorded Client Recorded Date Recorded By Document 05/05/19 10:33 AN [id number] 05/05/19 10:35 AN 05/05/19 10:33 Wound Center Nurse 2 [Procedure/Treatment] #5 Right Villavicencio -Time 10:33 -Correct Patient Yes -Correct Side, Site, Position Yes -Correct Procedure Yes -Procedure Performed Yes -Type of Procedure Debridement -Clinical Debridement Subcutaneous -Post Debridement Size (cm) - Length 3.0 -Post Debridement Size (cm) - Width 1.7 -Post Debridement Size (cm) - Depth 0.2 -Total Square Cm 5.10 -Wound/Ulcer Outcome Not Healed -Ulcer Cleansing Rinsed/ Irrigated with Saline -Foul Odor after Cleansing No -Bioengineered Tissue No -Bleeding Controlled with Pressure -Offloading Yes -Type of Offloading Surgical Shoe -Treatment Response Procedure Tolerated Well #4 R Plantar Foot -Time 10:34 -Correct Patient Yes -Correct Side, Site, Position Yes -Correct Procedure Yes -Procedure Performed Yes -Type of Procedure Debridement -Clinical Debridement Subcutaneous -Post Debridement Size (cm) - Length 0.8 -Post Debridement Size (cm) - Width 2.9 -Post Debridement Size (cm) - Depth 0.2 -Total Square Cm 2.32 -Wound/Ulcer Outcome Not Healed -Ulcer Cleansing Rinsed/ Irrigated with Saline -Foul Odor after Cleansing No -Bioengineered Tissue No -Bleeding Controlled with Pressure -Offloading Yes -Type of Offloading Surgical Shoe -Treatment Response Procedure Tolerated Well [See Physician Procedure note for Specifics] Pain Scale: 0-10 Numeric [Pain] -Is Patient Pain Free? Yes Musculoskeletal: No Tenderness to Palpation of Joints or Extremities, Muscle Wasting, - - Compartment soft to palpate right lower extremity without bogginess or fluctuance Neurological: - - Lack of epicritic sensation light touch is consistent with neuropathy Psych/Mental Status: Normal Affect, Appropriate Debridement Note Post-Debridement Measurements/Treatment WC - Nurse 2 - General Ulcer CM Notes Start: 04/15/19 09:22 Freq: Status: Active Protocol: Activity Type Activity Date Activity User E-Sign Co-Sign Detail Recorded Client Recorded Date Recorded By Document 04/15/19 09:44 AN [id number] 04/15/19 09:50 AN Document 04/22/19 09:39 AN [id number] 04/22/19 09:43 AN Document 04/29/19 09:38 AN [id number] 04/29/19 09:50 AN Document 05/05/19 10:33 AN [id number] 05/05/19 10:35 AN 04/15/19 04/22/19 04/29/19 09:44 09:39 09:38 Wound Center Nurse 2 #5 Right Villavicencio -Time 09:46 09:41 09:48 -Correct Patient Yes Yes -Correct Side, Site, Position Yes Yes -Correct Procedure Yes Yes -Procedure Performed No Yes Yes -Type of Procedure Debridement Debridement -Clinical Debridement Subcutaneous Subcutaneous -Post Debridement Size (cm) - Length 4.3 3.5 -Post Debridement Size (cm) - Width 2.4 2.2 -Post Debridement Size (cm) - Depth 0.1 0.1 -Total Square Cm 10.32 7.70 -Wound/Ulcer Outcome Not Healed Not Healed Not Healed -Ulcer Cleansing Rinsed/ Irrigated with Saline -Foul Odor after Cleansing No No -Bioengineered Tissue No No -Bleeding Controlled with Pressure Pressure -Offloading Yes Yes -Type of Offloading Surgical Shoe -Treatment Response Procedure Procedure Tolerated Well Tolerated Well #4 R Plantar Foot -Time 09:46 09:40 09:44 -Correct Patient Yes Yes -Correct Side, Site, Position Yes Yes -Correct Procedure Yes Yes -Procedure Performed No Yes Yes -Type of Procedure Debridement Debridement -Clinical Debridement Subcutaneous Subcutaneous -Post Debridement Size (cm) - Length 0.8 3.0 -Post Debridement Size (cm) - Width 1.0 2.3 -Post Debridement Size (cm) - Depth 0.2 0.3 -Total Square Cm 0.80 6.90 -Wound/Ulcer Outcome Not Healed Not Healed -Ulcer Cleansing Rinsed/ Rinsed/ Irrigated with Irrigated with Saline Saline -Foul Odor after Cleansing No No -Bioengineered Tissue No No -Bleeding Controlled with Pressure Pressure -Offloading Yes Yes -Type of Offloading Surgical Shoe -Treatment Response Procedure Procedure Tolerated Well Tolerated Well Pain Scale: 0-10 Numeric Is Patient Pain Free? Yes Yes Yes 05/05/19 10:33 Wound Center Nurse 2 #5 Right Villavicencio -Time 10:33 -Correct Patient Yes -Correct Side, Site, Position Yes -Correct Procedure Yes -Procedure Performed Yes -Type of Procedure Debridement -Clinical Debridement Subcutaneous -Post Debridement Size (cm) - Length 3.0 -Post Debridement Size (cm) - Width 1.7 -Post Debridement Size (cm) - Depth 0.2 -Total Square Cm 5.10 -Wound/Ulcer Outcome Not Healed -Ulcer Cleansing Rinsed/ Irrigated with Saline -Foul Odor after Cleansing No -Bioengineered Tissue No -Bleeding Controlled with Pressure -Offloading Yes -Type of Offloading Surgical Shoe -Treatment Response Procedure Tolerated Well #4 R Plantar Foot -Time 10:34 -Correct Patient Yes -Correct Side, Site, Position Yes -Correct Procedure Yes -Procedure Performed Yes -Type of Procedure Debridement -Clinical Debridement Subcutaneous -Post Debridement Size (cm) - Length 0.8 -Post Debridement Size (cm) - Width 2.9 -Post Debridement Size (cm) - Depth 0.2 -Total Square Cm 2.32 -Wound/Ulcer Outcome Not Healed -Ulcer Cleansing Rinsed/ Irrigated with Saline -Foul Odor after Cleansing No -Bioengineered Tissue No -Bleeding Controlled with Pressure -Offloading Yes -Type of Offloading Surgical Shoe -Treatment Response Procedure Tolerated Well Pain Scale: 0-10 Numeric Is Patient Pain Free? Yes Wound debrided: plantar lateral foot Laterality: Right Wound Grade/Stage: grade 1 Type of Debridement: Excisional debridement Anesthesia Used: 5% Lidocaine Gel Depth: in the subcutaneous layer Percentage of wound debrided: 100 Instrument Used: #15 blade Tissue Removed: fibrous, devitalized subcutaneous, biofilm, slough Severity: Fat Layer Exposed Amount of bleeding with debridement: Mild Bleeding Controlled with: Pressure Patient tolerated procedure well - Additional Wound Wound debrided: leg Laterality: Right Wound Grade/Stage: grade 1 Type of Debridement: Excisional debridement Anesthesia Used: 5% Lidocaine Gel Depth: in the subcutaneous layer Percentage of wound debrided: 100 Instrument Used: #15 blade Tissue Removed: fibrous, devitalized subcutaneous, biofilm, slough Severity: Fat Layer Exposed Amount of bleeding with debridement: Mild Bleeding Controlled with: Pressure Patient tolerated procedure: Patient tolerated procedure well Assessment/Plan Active Problems (Last Reviewed 08/20/18 @ 10:02 by Verna Grajeda) Ulcer of right foot with fat layer exposed (Chronic) Delayed wound healing (Chronic) Ulcer of right lower extremity with fat layer exposed (Chronic) Diabetes mellitus type 2, uncontrolled, with complications (Chronic) Assessment: Ulcer right sub-fifth met head. Ulcer right leg. DM Plan: Patient was examined and evaluated again today for ulcer to right plantar foot and his right lower villavicencio. There is resolved surrounding erythema to the area, and no streaking cellulitis, no increased warmth, and no purulence appreciated. There is no probing to bone. This site was cultured and sent for aerobic, anaerobic, and MRSA PCR evaluation. These results were reviewed. A prior doxycycline prescription was noted and he was advised to complete this course. We also discussed the potential need for Linezolid if his infection signs return. Infectious disease consultation may also be considered his cellulitis is recurrent. Patient also relates that the pain in the right anterior villavicencio is improving. Subcutaneous excisional debridement was performed as noted in the clinical panel to each ulcer site. The ulcer sites were carefully cleansed and then dressed with Adaptic and Aquacel Ag to the right anterior villavicencio ulcer base followed by dry sterile dressing. Jessica was applied to the sub-fifth met ulcer site followed by dry sterile dressing. The importance of continued offloading was discussed at great length again today. Patient has offloading cam walker for the right foot, however this irritates the anterior villavicencio ulcer site so he will take a break from wearing this currently. He will be in an offloading surgical shoe. Patient continues to be extremely busy on his feet at work and I continue to inform him that this is only going to make his situation worse. I stressed the importance of taking some time off of work to completely rest and relax the foot. He says he understands this and will try to do a better job and will have a discussion with his boss. I continue to recommended nutritional supplementation with a high-protein diet in order to optimize wound healing potential for this patient. Importance of tight glycemic control was stressed to the patient today. Smoking cessation was discussed with this patient today. Patient was educated on all signs and symptoms of local and systemic infection, and he was instructed to go to the emergency room immediately should he notice any. All other questions were answered to the patient's satisfaction. Patient will follow-up in clinic in 1 week to check on progress, or sooner if needed. This was a courtesy visit for Dr. Meredith.
[2019-05-13 08:10] VITALS: BMI 27.3
--- NOTE | 2019-05-13 08:46 | PCM.WC.PN ---
(1) Ulcer of right lower extremity with fat layer exposed Status: Chronic Current Visit: Yes Code(s): L97.912 - Non-pressure chronic ulcer of unspecified part of right lower leg with fat layer exposed (2) Ulcer of right foot with fat layer exposed Status: Chronic Current Visit: Yes Code(s): L97.512 - Non-pressure chronic ulcer of other part of right foot with fat layer exposed (3) Pain in right foot Status: Acute Current Visit: No Code(s): M79.671 - Pain in right foot (4) Delayed wound healing Status: Chronic Current Visit: Yes Code(s): T14.8XXD - Other injury of unspecified body region, subsequent encounter (5) Diabetes mellitus type 1 Status: Chronic Current Visit: No Code(s): E10.9 - Type 1 diabetes mellitus without complications Type of Wound Date of Service: 05/13/19 Chief Complaint: right plantar foot ulcer and right leg History of Wound: This 33-year-old diabetic male presents to the wound healing center for ulcer sub-right fifth metatarsal head that he states re-opened about 10 days ago. He says he had been trying to trim a callus in the area on his own and made the area very slightly bleed and it has very slowly worsened over the last 10 days. He says he tried to use old dressing supplies and keep the area offloaded, but he says he was not noticing any improvement. He says he knows he made a mistake by again failing to be fitted for diabetic shoes once he was healed 6 months ago. He denies any purulence, surrounding or extending redness, or increase in warmth. Progress of Wound: Patient returns to clinic today for right anterior rose and right plantar foot ulcer. Significant improvement noted. He currently denies any feelings of nausea, vomiting, fever, chills - Physical Exam Vital Signs Temp Pulse Resp BP 98 F 98 18 135/84 H 05/05/19 09:34 05/05/19 09:34 05/05/19 09:34 05/05/19 09:34 General: Alert, Oriented x3, Cooperative, No apparent distress Extremities: No cyanosis, Capillary Refill Less than 3 Seconds - To distal digits of the right foot, No Calf Tenderness - Negative Sean and Sanders signs bilateral, Edema - Lower extremity edema with right being worse than left, Peripheral Pulses Normal - DP and PT pulses palpable bilateral Skin: Ulcer/ Wound - Ulcer with fat layer exposed to anterior right rose. Base is a mixture of adherent slough, fibrin, devitalized subcutaneous tissue, biofilm. There is improving edema and no erythema surrounding the site. The base is a mixture of adherent slough, devitalized subcutaneous tissue, fibrin, biofilm. Ulcer to right foot sub 5th met head with fat layer exposed. The base is noted to be a mixture of adherent slough, fibrin, devitalized subcutaneous tissue, granular tissue, as well as some slight surrounding hyperkeratotic tissue again this week. There is no probing to bone, no tracking, no undermining , no purulence, no streaking cellulitis, no significant increase in warmth. Wound Measurements and Assessment WC - Nurse 1 - General Ulcer Measurement Start: 04/15/19 09:22 Freq: Status: Active Protocol: Activity Type Activity Date Activity User E-Sign Co-Sign Detail Recorded Client Recorded Date Recorded By Document 05/13/19 08:18 DV [id number] 05/13/19 08:19 DV 05/13/19 08:18 Wound Center Nurse 1 [Ulcer Assessment] #5 Right Rose -Combined with other wound No -Current Size (cm) - Length 0.5 -Current Size (cm) - Width 1.0 -Current Size (cm) - Depth 0.2 -Total Square Cm 0.50 -Photo Taken No -Epithelialization Small 1-33% -Tunneling No -Undermining/Tunneling No -Circular Undermining No -Exudate Amt Small -Exudate Type Serosanguineous -Wound Margin Flat & Intact -Granulation Amt Small (1-33%) -Granulation Quality Pale,Red -Slough/Fibrin Yes -Necrosis Amt Medium (34-66%) -Necrotic Tissue Type Adherent Slough -Structure Exposed None/Limited to Skin Breakdown -Texture (Yu-wound Skin Appearance) Assessed, Scarring -Moisture (Yu-wound Skin Appearance Weeping,Dry/ ) Scaly -Color (Yu-wound Skin Appearance) Assessed -Temperature (Yu-wound Skin No Abnormality Appearance) (Pt Warm) -Tenderness on Palpation (Yu-wound No Skin Appearance) -Ulcer Cleansing Rinsed/ Irrigated with Saline -Foul Odor after Cleansing No -Anesthetic Used 5% Lidocaine Gel WC - Nurse 2 - General Ulcer CM Notes Start: 04/15/19 09:22 Freq: Status: Active Protocol: Activity Type Activity Date Activity User E-Sign Co-Sign Detail Recorded Client Recorded Date Recorded By Document 05/13/19 08:35 AN [id number] 05/13/19 08:42 AN 05/13/19 08:35 Wound Center Nurse 2 [Procedure/Treatment] -Time 08:36 -Correct Patient Yes -Correct Side, Site, Position Yes -Correct Procedure Yes -Procedure Performed Yes -Type of Procedure Debridement -Clinical Debridement Subcutaneous -Post Debridement Size (cm) - Length 2.8 -Post Debridement Size (cm) - Width 1.8 -Post Debridement Size (cm) - Depth 0.1 -Total Square Cm 5.04 -Wound/Ulcer Outcome Not Healed -Ulcer Cleansing Rinsed/ Irrigated with Saline -Foul Odor after Cleansing No -Bioengineered Tissue No -Bleeding Controlled with Pressure -Offloading Yes -Type of Offloading Surgical Shoe -Treatment Response Procedure Tolerated Well #4 R Plantar Foot -Time 08:36 -Correct Patient Yes -Correct Side, Site, Position Yes -Correct Procedure Yes -Procedure Performed Yes -Type of Procedure Debridement -Clinical Debridement Subcutaneous -Post Debridement Size (cm) - Length 1.5 -Post Debridement Size (cm) - Width 0.6 -Post Debridement Size (cm) - Depth 0.2 -Total Square Cm 0.90 -Wound/Ulcer Outcome Not Healed -Ulcer Cleansing Rinsed/ Irrigated with Saline -Foul Odor after Cleansing No -Bioengineered Tissue No -Bleeding Controlled with Pressure -Offloading Yes -Type of Offloading Surgical Shoe -Treatment Response Procedure Tolerated Well [See Physician Procedure note for Specifics] Pain Scale: 0-10 Numeric [Pain] -Is Patient Pain Free? Yes Musculoskeletal: Tenderness - With manipulation of right lower rose Neurological: Sensory exam intact to light touch and pain - With some altered sensation appreciated to bilateral feet consistent with patient's diabetic status Psych/Mental Status: Normal Affect, Appropriate Debridement Note Post-Debridement Measurements/Treatment WC - Nurse 2 - General Ulcer CM Notes Start: 04/15/19 09:22 Freq: Status: Active Protocol: Activity Type Activity Date Activity User E-Sign Co-Sign Detail Recorded Client Recorded Date Recorded By Document 04/15/19 09:44 AN [id number] 04/15/19 09:50 AN Document 04/22/19 09:39 AN [id number] 04/22/19 09:43 AN Document 04/29/19 09:38 AN [id number] 04/29/19 09:50 AN Document 05/05/19 10:33 AN [id number] 05/05/19 10:35 AN Document 05/13/19 08:35 AN [id number] 05/13/19 08:42 AN 04/15/19 04/22/19 04/29/19 09:44 09:39 09:38 Wound Center Nurse 2 #5 Right Rose -Time 09:46 09:41 09:48 -Correct Patient Yes Yes -Correct Side, Site, Position Yes Yes -Correct Procedure Yes Yes -Procedure Performed No Yes Yes -Type of Procedure Debridement Debridement -Clinical Debridement Subcutaneous Subcutaneous -Post Debridement Size (cm) - Length 4.3 3.5 -Post Debridement Size (cm) - Width 2.4 2.2 -Post Debridement Size (cm) - Depth 0.1 0.1 -Total Square Cm 10.32 7.70 -Wound/Ulcer Outcome Not Healed Not Healed Not Healed -Ulcer Cleansing Rinsed/ Irrigated with Saline -Foul Odor after Cleansing No No -Bioengineered Tissue No No -Bleeding Controlled with Pressure Pressure -Offloading Yes Yes -Type of Offloading Surgical Shoe -Treatment Response Procedure Procedure Tolerated Well Tolerated Well #4 R Plantar Foot -Time 09:46 09:40 09:44 -Correct Patient Yes Yes -Correct Side, Site, Position Yes Yes -Correct Procedure Yes Yes -Procedure Performed No Yes Yes -Type of Procedure Debridement Debridement -Clinical Debridement Subcutaneous Subcutaneous -Post Debridement Size (cm) - Length 0.8 3.0 -Post Debridement Size (cm) - Width 1.0 2.3 -Post Debridement Size (cm) - Depth 0.2 0.3 -Total Square Cm 0.80 6.90 -Wound/Ulcer Outcome Not Healed Not Healed -Ulcer Cleansing Rinsed/ Rinsed/ Irrigated with Irrigated with Saline Saline -Foul Odor after Cleansing No No -Bioengineered Tissue No No -Bleeding Controlled with Pressure Pressure -Offloading Yes Yes -Type of Offloading Surgical Shoe -Treatment Response Procedure Procedure Tolerated Well Tolerated Well Pain Scale: 0-10 Numeric Is Patient Pain Free? Yes Yes Yes 05/05/19 05/13/19 10:33 08:35 Wound Center Nurse 2 #5 Right Rose -Time 10:33 08:36 -Correct Patient Yes Yes -Correct Side, Site, Position Yes Yes -Correct Procedure Yes Yes -Procedure Performed Yes Yes -Type of Procedure Debridement Debridement -Clinical Debridement Subcutaneous Subcutaneous -Post Debridement Size (cm) - Length 3.0 2.8 -Post Debridement Size (cm) - Width 1.7 1.8 -Post Debridement Size (cm) - Depth 0.2 0.1 -Total Square Cm 5.10 5.04 -Wound/Ulcer Outcome Not Healed Not Healed -Ulcer Cleansing Rinsed/ Rinsed/ Irrigated with Irrigated with Saline Saline -Foul Odor after Cleansing No No -Bioengineered Tissue No No -Bleeding Controlled with Pressure Pressure -Offloading Yes Yes -Type of Offloading Surgical Shoe Surgical Shoe -Treatment Response Procedure Procedure Tolerated Well Tolerated Well #4 R Plantar Foot -Time 10:34 08:36 -Correct Patient Yes Yes -Correct Side, Site, Position Yes Yes -Correct Procedure Yes Yes -Procedure Performed Yes Yes -Type of Procedure Debridement Debridement -Clinical Debridement Subcutaneous Subcutaneous -Post Debridement Size (cm) - Length 0.8 1.5 -Post Debridement Size (cm) - Width 2.9 0.6 -Post Debridement Size (cm) - Depth 0.2 0.2 -Total Square Cm 2.32 0.90 -Wound/Ulcer Outcome Not Healed Not Healed -Ulcer Cleansing Rinsed/ Rinsed/ Irrigated with Irrigated with Saline Saline -Foul Odor after Cleansing No No -Bioengineered Tissue No No -Bleeding Controlled with Pressure Pressure -Offloading Yes Yes -Type of Offloading Surgical Shoe Surgical Shoe -Treatment Response Procedure Procedure Tolerated Well Tolerated Well Pain Scale: 0-10 Numeric Is Patient Pain Free? Yes Yes Wound debrided: Right sub-fifth metatarsal head Laterality: Right Type of Debridement: Excisional debridement Anesthesia Used: 5% Lidocaine Gel Depth: in the subcutaneous layer Percentage of wound debrided: 100 Instrument Used: 3mm curette, #15 blade Tissue Removed: Devitalized subcutaneous tissue, adherent slough, fibrin, biofilm Severity: Fat Layer Exposed Amount of bleeding with debridement: Mild Bleeding Controlled with: Pressure Patient tolerated procedure well - Additional Wound Wound debrided: Right anterior rose Laterality: Right Type of Debridement: Excisional debridement Anesthesia Used: 5% Lidocaine Gel Depth: in the subcutaneous layer Percentage of wound debrided: 100 Instrument Used: 3mm curette, #15 blade Tissue Removed: Devitalized subcutaneous tissue, adherent slough, fibrin, biofilm Severity: Fat Layer Exposed Amount of bleeding with debridement: Mild Bleeding Controlled with: Pressure Patient tolerated procedure: Patient tolerated procedure well Assessment/Plan Active Problems (Last Reviewed 08/20/18 @ 10:02 by Verna Grajeda) Ulcer of right foot with fat layer exposed (Chronic) Delayed wound healing (Chronic) Ulcer of right lower extremity with fat layer exposed (Chronic) Diabetes mellitus type 2, uncontrolled, with complications (Chronic) Assessment: Ulcer right sub-fifth met head. Ulcer right leg. DM Plan: Patient was examined and evaluated again today for ulcer to right plantar foot and his right lower rose. Significant improvement appreciated to each ulcer site this week. She has finished his course of doxycycline. Subcutaneous excisional debridement was performed as noted in the clinical panel to each ulcer site. The ulcer sites were carefully cleansed and then dressed with Adaptic and Aquacel Ag to the right anterior rose ulcer base followed by dry sterile dressing. Jessica was applied to the sub-fifth met ulcer site followed by dry sterile dressing. The importance of continued offloading was discussed at great length again today. Patient has offloading cam walker for the right foot, however this irritates the anterior rose ulcer site so he will take a break from wearing this currently. He will be in an offloading surgical shoe. Patient continues to be extremely busy on his feet at work and I continue to inform him that this is only going to make his situation worse. I again stressed the importance of taking some time off of work to completely rest and relax the foot. I continue to recommended nutritional supplementation with a high-protein diet in order to optimize wound healing potential for this patient. Importance of tight glycemic control was stressed to the patient today. Smoking cessation was discussed with this patient today. Patient was educated on all signs and symptoms of local and systemic infection, and he was instructed to go to the emergency room immediately should he notice any. All other questions were answered to the patient's satisfaction. Patient will follow-up in clinic in 1 week to check on progress, or sooner if needed.
== END 2019-05-13 23:59 ==
LOC: WC 08:15
PROVIDERS: Family Provider Internal Medicine; PCP Internal Medicine; Visit Provider Podiatrist
DX: E10.621 Type 1 diabetes mellitus with foot ulcer (principal); L97.812 Non-pressure chronic ulcer of other part of right lower leg with fat layer exposed; L97.512 Non-pressure chronic ulcer of other part of right foot with fat layer exposed; E10.622 Type 1 diabetes mellitus with other skin ulcer; L03.115 Cellulitis of right lower limb; Z79.4 Long term (current) use of insulin; Z72.0 Tobacco use; M79.671 Pain in right foot; R60.0 Localized edema; M79.672 Pain in left foot
CPT/HCPCS: 11042; 73590; 80048; 85025; 85652; 87070; 87075; 87077; 87186; 87205; 87640; 96365; 99212; 99285; J7050; A4216; G0463

== ENCOUNTER 2019-06-09 14:45 | Outpatient (RCR) | payer MEDICAID, SELFPAY ==
[2019-05-14 01:13] VITALS: BP 135/84; PULSE 98; RESP 18; TEMP 36.6; BMI 28.2
[2019-05-20 08:25] VITALS: BP 118/79; PULSE 90; RESP 8; TEMP 36.6; BMI 28.2
--- NOTE | 2019-05-20 08:54 | PCM.WC.PN ---
(1) Ulcer of right lower extremity with fat layer exposed Status: Chronic Current Visit: No Code(s): L97.912 - Non-pressure chronic ulcer of unspecified part of right lower leg with fat layer exposed (2) Ulcer of right foot with fat layer exposed Status: Chronic Current Visit: No Code(s): L97.512 - Non-pressure chronic ulcer of other part of right foot with fat layer exposed (3) Pain in right foot Status: Acute Current Visit: No Code(s): M79.671 - Pain in right foot (4) Delayed wound healing Status: Chronic Current Visit: No Code(s): T14.8XXD - Other injury of unspecified body region, subsequent encounter (5) Diabetes mellitus type 1 Status: Chronic Current Visit: No Code(s): E10.9 - Type 1 diabetes mellitus without complications Type of Wound Date of Service: 05/20/19 Chief Complaint: right plantar foot ulcer and right leg History of Wound: This 33-year-old diabetic male presents to the wound healing center for ulcer sub-right fifth metatarsal head that he states re-opened about 10 days ago. He says he had been trying to trim a callus in the area on his own and made the area very slightly bleed and it has very slowly worsened over the last 10 days. He says he tried to use old dressing supplies and keep the area offloaded, but he says he was not noticing any improvement. He says he knows he made a mistake by again failing to be fitted for diabetic shoes once he was healed 6 months ago. He denies any purulence, surrounding or extending redness, or increase in warmth. Progress of Wound: Patient returns to clinic today for right anterior rose and right plantar foot ulcer. Continued improvement noted. He currently denies any feelings of nausea, vomiting, fever, chills - Physical Exam Vital Signs Temp Pulse Resp BP 97.8 F 90 8 L 118/79 05/20/19 08:25 05/20/19 08:25 05/20/19 08:25 05/20/19 08:25 General: Alert, Oriented x3, Cooperative, No apparent distress Extremities: No cyanosis, Capillary Refill Less than 3 Seconds - To distal digits of the right foot, No Calf Tenderness - Negative Sean and Sanders signs bilateral, Edema - Lower extremity edema with right being worse than left, Peripheral Pulses Normal - DP and PT pulses palpable bilateral Skin: Ulcer/ Wound - Ulcer with fat layer exposed to anterior right rose. Base is a mixture of adherent slough, fibrin, devitalized subcutaneous tissue, biofilm. There is no edema or erythema surrounding the site. The base is a mixture of adherent slough, devitalized subcutaneous tissue, fibrin, biofilm. Ulcer to right foot sub 5th met head with fat layer exposed. The base is noted to be a mixture of adherent slough, fibrin, devitalized subcutaneous tissue, granular tissue, as well as some slight surrounding hyperkeratotic tissue again this week. There is no probing to bone, no tracking, no undermining , no purulence, no streaking cellulitis, no significant increase in warmth. Wound Measurements and Assessment WC - Nurse 1 - General Ulcer Measurement Start: 05/20/19 08:24 Freq: Status: Active Protocol: Activity Type Activity Date Activity User E-Sign Co-Sign Detail Recorded Client Recorded Date Recorded By Document 05/20/19 08:25 [email or web address] [id number] 05/20/19 08:28 DV 05/20/19 08:25 Wound Center Nurse 1 [Ulcer Assessment] #5 Right Rose -Combined with other wound No -Current Size (cm) - Length 2.5 -Current Size (cm) - Width 1.8 -Current Size (cm) - Depth 0.1 -Total Square Cm 4.50 -Photo Taken No -Epithelialization None Present -Tunneling No -Undermining/Tunneling No -Circular Undermining No #4 R Plantar Foot -Combined with other wound No -Current Size (cm) - Length 0.4 -Current Size (cm) - Width 0.6 -Current Size (cm) - Depth 0.1 -Total Square Cm 0.24 -Photo Taken No -Epithelialization None Present -Undermining/Tunneling No -Circular Undermining No [Edema Assessment] -Lower Limb Edema Present No WC - Nurse 2 - General Ulcer CM Notes Start: 05/20/19 08:24 Freq: Status: Active Protocol: Activity Type Activity Date Activity User E-Sign Co-Sign Detail Recorded Client Recorded Date Recorded By Document 05/20/19 08:36 [id number] 05/20/19 08:42 05/20/19 08:36 Wound Center Nurse 2 [Procedure/Treatment] #5 Right Rose -Time 08:38 -Correct Patient Yes -Correct Side, Site, Position Yes -Correct Procedure Yes -Procedure Performed Yes -Type of Procedure Debridement -Clinical Debridement Subcutaneous -Post Debridement Size (cm) - Length 2.5 -Post Debridement Size (cm) - Width 1.5 -Post Debridement Size (cm) - Depth 1.0 -Total Square Cm 3.75 -Wound/Ulcer Outcome Not Healed -Ulcer Cleansing Rinsed/ Irrigated with Saline -Foul Odor after Cleansing No -Bioengineered Tissue No -Bleeding Controlled with Pressure -Offloading No -Treatment Response Procedure Tolerated Well #4 R Plantar Foot -Time 08:37 -Correct Patient Yes -Correct Side, Site, Position Yes -Correct Procedure Yes -Procedure Performed Yes -Type of Procedure Debridement -Clinical Debridement Subcutaneous -Post Debridement Size (cm) - Length 1 -Post Debridement Size (cm) - Width 0.5 -Post Debridement Size (cm) - Depth 0.2 -Total Square Cm 0.5 -Wound/Ulcer Outcome Not Healed -Ulcer Cleansing Rinsed/ Irrigated with Saline -Foul Odor after Cleansing No -Bioengineered Tissue No -Bleeding Controlled with Pressure -Offloading Yes [See Physician Procedure note for Specifics] Pain Scale: 0-10 Numeric [Pain] -Is Patient Pain Free? Yes Musculoskeletal: Tenderness - With manipulation of right lower rose Neurological: Sensory exam intact to light touch and pain - With some altered sensation appreciated to bilateral feet consistent with patient's diabetic status Psych/Mental Status: Normal Affect, Appropriate Debridement Note Post-Debridement Measurements/Treatment WC - Nurse 2 - General Ulcer CM Notes Start: 05/20/19 08:24 Freq: Status: Active Protocol: Activity Type Activity Date Activity User E-Sign Co-Sign Detail Recorded Client Recorded Date Recorded By Document 05/20/19 08:36 [id number] 05/20/19 08:42 05/20/19 08:36 Wound Center Nurse 2 #5 Right Rose -Time 08:38 -Correct Patient Yes -Correct Side, Site, Position Yes -Correct Procedure Yes -Procedure Performed Yes -Type of Procedure Debridement -Clinical Debridement Subcutaneous -Post Debridement Size (cm) - Length 2.5 -Post Debridement Size (cm) - Width 1.5 -Post Debridement Size (cm) - Depth 1.0 -Total Square Cm 3.75 -Wound/Ulcer Outcome Not Healed -Ulcer Cleansing Rinsed/ Irrigated with Saline -Foul Odor after Cleansing No -Bioengineered Tissue No -Bleeding Controlled with Pressure -Offloading No -Treatment Response Procedure Tolerated Well #4 R Plantar Foot -Time 08:37 -Correct Patient Yes -Correct Side, Site, Position Yes -Correct Procedure Yes -Procedure Performed Yes -Type of Procedure Debridement -Clinical Debridement Subcutaneous -Post Debridement Size (cm) - Length 1 -Post Debridement Size (cm) - Width 0.5 -Post Debridement Size (cm) - Depth 0.2 -Total Square Cm 0.5 -Wound/Ulcer Outcome Not Healed -Ulcer Cleansing Rinsed/ Irrigated with Saline -Foul Odor after Cleansing No -Bioengineered Tissue No -Bleeding Controlled with Pressure -Offloading Yes Pain Scale: 0-10 Numeric Is Patient Pain Free? Yes Wound debrided: Right sub-fifth metatarsal head Laterality: Right Type of Debridement: Excisional debridement Anesthesia Used: 5% Lidocaine Gel Depth: in the subcutaneous layer Percentage of wound debrided: 100 Instrument Used: #15 blade Tissue Removed: Devitalized subcutaneous tissue, adherent slough, fibrin, biofilm Severity: Fat Layer Exposed Amount of bleeding with debridement: Mild Bleeding Controlled with: Pressure Patient tolerated procedure well - Additional Wound Wound debrided: Right anterior rose Laterality: Right Type of Debridement: Excisional debridement Anesthesia Used: 5% Lidocaine Gel Depth: in the subcutaneous layer Percentage of wound debrided: 100 Instrument Used: #15 blade Tissue Removed: Devitalized subcutaneous tissue, adherent slough, fibrin, biofilm Severity: Fat Layer Exposed Amount of bleeding with debridement: Mild Bleeding Controlled with: Pressure Patient tolerated procedure: Patient tolerated procedure well Assessment/Plan Assessment: Ulcer right sub-fifth met head. Ulcer right leg. DM Plan: Patient was examined and evaluated again today for ulcer to right plantar foot and his right lower rose. Continued improvement appreciated to each ulcer site this week. Subcutaneous excisional debridement was performed as noted in the clinical panel to each ulcer site. The ulcer sites were carefully cleansed and then dressed with Aquacel Ag to the right anterior rose ulcer base followed by dry sterile dressing. Jessica was applied to the sub-fifth met ulcer site followed by dry sterile dressing. The importance of continued offloading was discussed at great length again today. Patient is to continue with offloading surgical shoe. Patient continues to be extremely busy on his feet at work and I continue to inform him that this is only going to make his situation worse. 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 I again stressed the importance of taking some time off of work to completely rest and relax the foot. I continue to recommended nutritional supplementation with a high-protein diet in order to optimize wound healing potential for this patient. Importance of tight glycemic control was stressed to the patient today. Smoking cessation was discussed with this patient today. Patient was educated on all signs and symptoms of local and systemic infection, and he was instructed to go to the emergency room immediately should he notice any. All other questions were answered to the patient's satisfaction. Patient will follow-up in clinic in 1 week to check on progress, or sooner if needed.
[2019-05-27 08:35] VITALS: BP 111/63; PULSE 90; RESP 18; TEMP 36; BMI 28.2
--- NOTE | 2019-05-27 10:20 | PN.PCM_ITS ---
(1) Ulcer of right lower extremity with fat layer exposed Status: Chronic Current Visit: No Code(s): L97.912 - Non-pressure chronic ulcer of unspecified part of right lower leg with fat layer exposed (2) Ulcer of right foot with fat layer exposed Status: Chronic Current Visit: No Code(s): L97.512 - Non-pressure chronic ulcer of other part of right foot with fat layer exposed (3) Pain in right foot Status: Acute Current Visit: No Code(s): M79.671 - Pain in right foot (4) Delayed wound healing Status: Chronic Current Visit: No Code(s): T14.8XXD - Other injury of unspecified body region, subsequent encounter (5) Diabetes mellitus type 1 Status: Chronic Current Visit: No Code(s): E10.9 - Type 1 diabetes mellitus without complications Type of Wound Date of Service: 05/27/19 Chief Complaint: right plantar foot ulcer and right leg History of Wound: This 33-year-old diabetic male presents to the wound healing center for ulcer sub-right fifth metatarsal head that he states re-opened about 10 days ago. He says he had been trying to trim a callus in the area on his own and made the area very slightly bleed and it has very slowly worsened over the last 10 days. He says he tried to use old dressing supplies and keep the area offloaded, but he says he was not noticing any improvement. He says he knows he made a mistake by again failing to be fitted for diabetic shoes once he was healed 6 months ago. He denies any purulence, surrounding or extending redness, or increase in warmth. Progress of Wound: Patient returns to clinic today for right anterior rose and right plantar foot ulcer. Improving. - Physical Exam Vital Signs Temp Pulse Resp BP 96.8 F L 90 18 111/63 05/27/19 08:35 05/27/19 08:35 05/27/19 08:35 05/27/19 08:35 General: Alert, Oriented x3, Cooperative, No apparent distress Extremities: No cyanosis, Capillary Refill Less than 3 Seconds - To distal digits of the right foot, No Calf Tenderness - Negative Sean and Sanders signs bilateral, Edema - Lower extremity edema with right being worse than left, Peripheral Pulses Normal - DP and PT pulses palpable bilateral Skin: Ulcer/ Wound - Ulcer with fat layer exposed to anterior right rose. Base is a mixture of adherent slough, fibrin, devitalized subcutaneous tissue, biofilm. There is no edema or erythema surrounding the site. The base is a mixture of adherent slough, devitalized subcutaneous tissue, fibrin, biofilm. Ulcer to right foot sub 5th met head with fat layer exposed. The base is noted to be a mixture of adherent slough, fibrin, devitalized subcutaneous tissue, granular tissue, as well as some slight surrounding hyperkeratotic tissue again this week. There is no probing to bone, no tracking, no undermining , no purulence, no streaking cellulitis, no significant increase in warmth. Wound Measurements and Assessment WC - Nurse 1 - General Ulcer Measurement Start: 05/20/19 08:24 Freq: Status: Active Protocol: Activity Type Activity Date Activity User E-Sign Co-Sign Detail Recorded Client Recorded Date Recorded By Document 05/27/19 08:35 DL [id number] 05/27/19 08:42 DL 05/27/19 08:35 Wound Center Nurse 1 [Ulcer Assessment] #5 Right Roes -Current Size (cm) - Length 0.6 -Current Size (cm) - Width 0.3 -Current Size (cm) - Depth 0.1 -Total Square Cm 0.18 -Photo Taken No -Exudate Amt None Present -Wound Margin Flat & Intact -Granulation Amt Small (1-33%) -Granulation Quality [place] -Necrosis Amt Small (1-33%) -Necrotic Tissue Type Adherent Slough -Structure Exposed N/A -Texture (Yu-wound Skin Appearance) Scarring -Moisture (Yu-wound Skin Appearance No Abnormality ) -Color (Yu-wound Skin Appearance) Hemosiderin Staining -Temperature (Yu-wound Skin No Abnormality Appearance) (Pt Warm) -Tenderness on Palpation (Yu-wound No Skin Appearance) -Ulcer Cleansing Rinsed/ Irrigated with Saline -Foul Odor after Cleansing No -Anesthetic Used 5% Lidocaine Gel #4 R Plantar Foot -Current Size (cm) - Length 0.4 -Current Size (cm) - Width 0.4 -Current Size (cm) - Depth 0.2 -Total Square Cm 0.16 -Photo Taken No -Exudate Amt None Present -Wound Margin Thickened -Granulation Amt Small (1-33%) -Granulation Quality [place] -Necrosis Amt Small (1-33%) -Necrotic Tissue Type Adherent Slough -Structure Exposed N/A -Texture (Yu-wound Skin Appearance) Callus,Scarring -Moisture (Yu-wound Skin Appearance Dry/Scaly ) -Color (Yu-wound Skin Appearance) No Abnormality -Temperature (Yu-wound Skin No Abnormality Appearance) (Pt Warm) -Tenderness on Palpation (Yu-wound No Skin Appearance) -Ulcer Cleansing Rinsed/ Irrigated with Saline -Foul Odor after Cleansing No -Anesthetic Used 5% Lidocaine Gel [Edema Assessment] -Right Calf (cm) 36.5 -Right Ankle (cm) 22 WC - Nurse 2 - General Ulcer CM Notes Start: 05/20/19 08:24 Freq: Status: Active Protocol: Activity Type Activity Date Activity User E-Sign Co-Sign Detail Recorded Client Recorded Date Recorded By Document 05/27/19 08:53 [id number] 05/27/19 09:05 05/27/19 08:53 Wound Center Nurse 2 [Procedure/Treatment] #5 Right Rose -Time 08:55 -Correct Patient Yes -Correct Side, Site, Position Yes -Correct Procedure Yes -Procedure Performed Yes -Type of Procedure Debridement -Clinical Debridement Subcutaneous -Post Debridement Size (cm) - Length 0.9 -Post Debridement Size (cm) - Width 0.5 -Post Debridement Size (cm) - Depth 0.1 -Total Square Cm 0.45 -Wound/Ulcer Outcome Not Healed -Ulcer Cleansing Rinsed/ Irrigated with Saline -Foul Odor after Cleansing No -Bioengineered Tissue No -Bleeding Controlled with Pressure -Offloading Yes -Type of Offloading Surgical Shoe -Treatment Response Procedure Tolerated Well #4 R Plantar Foot -Time 08:56 -Correct Patient Yes -Correct Side, Site, Position Yes -Correct Procedure Yes -Procedure Performed Yes -Type of Procedure Debridement -Clinical Debridement Subcutaneous -Post Debridement Size (cm) - Length 0.8 -Post Debridement Size (cm) - Width 0.4 -Post Debridement Size (cm) - Depth 0.2 -Total Square Cm 0.32 -Wound/Ulcer Outcome Not Healed -Ulcer Cleansing Rinsed/ Irrigated with Saline -Foul Odor after Cleansing No -Bioengineered Tissue No -Bleeding Controlled with Pressure -Offloading Yes [See Physician Procedure note for Specifics] Pain Scale: 0-10 Numeric [Pain] -Is Patient Pain Free? Yes Musculoskeletal: Tenderness - No significant tenderness with manipulation of either ulcer site Neurological: Sensory exam intact to light touch and pain - Some altered sensation appreciated bilateral feet consistent with patient's diabetic neuropathy status Psych/Mental Status: Normal Affect, Appropriate Debridement Note Post-Debridement Measurements/Treatment WC - Nurse 2 - General Ulcer CM Notes Start: 05/20/19 08:24 Freq: Status: Active Protocol: Activity Type Activity Date Activity User E-Sign Co-Sign Detail Recorded Client Recorded Date Recorded By Document 05/20/19 08:36 [id number] 05/20/19 08:42 MD Document 05/27/19 08:53 [id number] 05/27/19 09:05 05/20/19 05/27/19 08:36 08:53 Wound Center Nurse 2 #5 Right Rose -Time 08:38 08:55 -Correct Patient Yes Yes -Correct Side, Site, Position Yes Yes -Correct Procedure Yes Yes -Procedure Performed Yes Yes -Type of Procedure Debridement Debridement -Clinical Debridement Subcutaneous Subcutaneous -Post Debridement Size (cm) - Length 2.5 0.9 -Post Debridement Size (cm) - Width 1.5 0.5 -Post Debridement Size (cm) - Depth 1.0 0.1 -Total Square Cm 3.75 0.45 -Wound/Ulcer Outcome Not Healed Not Healed -Ulcer Cleansing Rinsed/ Rinsed/ Irrigated with Irrigated with Saline Saline -Foul Odor after Cleansing No No -Bioengineered Tissue No No -Bleeding Controlled with Pressure Pressure -Offloading No Yes -Type of Offloading Surgical Shoe -Treatment Response Procedure Procedure Tolerated Well Tolerated Well #4 R Plantar Foot -Time 08:37 08:56 -Correct Patient Yes Yes -Correct Side, Site, Position Yes Yes -Correct Procedure Yes Yes -Procedure Performed Yes Yes -Type of Procedure Debridement Debridement -Clinical Debridement Subcutaneous Subcutaneous -Post Debridement Size (cm) - Length 1 0.8 -Post Debridement Size (cm) - Width 0.5 0.4 -Post Debridement Size (cm) - Depth 0.2 0.2 -Total Square Cm 0.5 0.32 -Wound/Ulcer Outcome Not Healed Not Healed -Ulcer Cleansing Rinsed/ Rinsed/ Irrigated with Irrigated with Saline Saline -Foul Odor after Cleansing No No -Bioengineered Tissue No No -Bleeding Controlled with Pressure Pressure -Offloading Yes Yes Pain Scale: 0-10 Numeric Is Patient Pain Free? Yes Yes Wound debrided: Right sub-fifth metatarsal head Laterality: Right Type of Debridement: Excisional debridement Anesthesia Used: 5% Lidocaine Gel Depth: in the subcutaneous layer Percentage of wound debrided: 100 Instrument Used: #15 blade Tissue Removed: Devitalized subcutaneous tissue, adherent slough, fibrin, biofilm Severity: Fat Layer Exposed Amount of bleeding with debridement: Mild Bleeding Controlled with: Pressure Patient tolerated procedure well - Additional Wound Wound debrided: Right anterior rose Laterality: Right Type of Debridement: Excisional debridement Anesthesia Used: 5% Lidocaine Gel Depth: in the subcutaneous layer Percentage of wound debrided: 100 Instrument Used: #15 blade Tissue Removed: Devitalized subcutaneous tissue, adherent slough, fibrin, biofilm Severity: Fat Layer Exposed Amount of bleeding with debridement: Mild Bleeding Controlled with: Pressure Patient tolerated procedure: Patient tolerated procedure well Assessment/Plan Assessment: Ulcer right sub-fifth met head. Ulcer right leg. DM Plan: Patient was examined and evaluated again today for ulcers to right plantar foot and his right lower rose. Continued improvement noted to each site. Another subcutaneous excisional debridement was performed as noted in the clinical panel to each ulcer site. The ulcer sites were carefully cleansed and then dressed with Aquacel Ag to the right anterior rose ulcer base followed by dry sterile dressing. Jessica was applied to the sub-fifth met ulcer site followed by dry sterile dressing. The importance of continued offloading was discussed at great length again today. Patient is to continue with offloading surgical shoe. I again stressed the importance of taking some time off of work to completely rest and relax the foot. I continue to recommended nutritional supplementation with a high-protein diet in order to optimize wound healing potential for this patient. Importance of tight glycemic control was stressed to the patient today. Smoking cessation was discussed with this patient today. Patient was educated on all signs and symptoms of local and systemic infection, and he was instructed to go to the emergency room immediately should he notice any. All other questions were answered to the patient's satisfaction. Patient will follow-up in clinic in 1 week to check on progress, or sooner if needed.
[2019-06-03 08:36] VITALS: RESP 18; TEMP 36.9; BMI 28.2
--- NOTE | 2019-06-03 09:27 | PN.PCM_ITS ---
(1) Ulcer of right lower extremity with fat layer exposed Status: Chronic Current Visit: No Code(s): L97.912 - Non-pressure chronic ulcer of unspecified part of right lower leg with fat layer exposed (2) Ulcer of right foot with fat layer exposed Status: Chronic Current Visit: No Code(s): L97.512 - Non-pressure chronic ulcer of other part of right foot with fat layer exposed (3) Pain in right foot Status: Acute Current Visit: No Code(s): M79.671 - Pain in right foot (4) Delayed wound healing Status: Chronic Current Visit: No Code(s): T14.8XXD - Other injury of unspecified body region, subsequent encounter (5) Diabetes mellitus type 1 Status: Chronic Current Visit: No Code(s): E10.9 - Type 1 diabetes mellitus without complications Type of Wound Date of Service: 06/03/19 Chief Complaint: right plantar foot ulcer and right leg History of Wound: This 33-year-old diabetic male presents to the wound healing center for ulcer sub-right fifth metatarsal head that he states re-opened about 10 days ago. He says he had been trying to trim a callus in the area on his own and made the area very slightly bleed and it has very slowly worsened over the last 10 days. He says he tried to use old dressing supplies and keep the area offloaded, but he says he was not noticing any improvement. He says he knows he made a mistake by again failing to be fitted for diabetic shoes once he was healed 6 months ago. He denies any purulence, surrounding or extending redness, or increase in warmth. Progress of Wound: Patient returns to clinic today for right anterior rose and right plantar foot ulcer. Rose ulcer improvig and foot ulcer stable. - Physical Exam Vital Signs Temp Pulse Resp BP 98.4 F 90 18 111/63 06/03/19 08:36 05/27/19 08:35 06/03/19 08:36 05/27/19 08:35 General: Alert, Oriented x3, Cooperative, No apparent distress Extremities: No cyanosis, Capillary Refill Less than 3 Seconds, No Calf Tenderness - Negative Sean and Sanders signs bilateral, Edema - Lower extremity edema with right being slightly worse than left, but overall improved, Peripheral Pulses Normal - DP and PT pulses palpable bilateral Skin: Ulcer/ Wound - Ulcer with fat layer exposed to anterior right rose. Base is a mixture of adherent slough, fibrin, devitalized subcutaneous tissue, biofilm. There is no edema or erythema surrounding the site. The base is a mixture of adherent slough, fibrin, and majority granular tissue. Ulcer to right foot sub 5th met head with fat layer exposed. The base is noted to be a mixture of adherent slough, fibrin, devitalized subcutaneous tissue, granular tissue, as well as some slight surrounding hyperkeratotic tissue again this we ek. There is no probing to bone, no tracking, no undermining , no purulence, no streaking cellulitis, no significant increase in warmth. Wound Measurements and Assessment WC - Nurse 1 - General Ulcer Measurement Start: 05/20/19 08:24 Freq: Status: Active Protocol: Activity Type Activity Date Activity User E-Sign Co-Sign Detail Recorded Client Recorded Date Recorded By Document 06/03/19 08:36 PEDRO [id number] 06/03/19 08:44 PEDRO 06/03/19 08:36 Wound Center Nurse 1 [Ulcer Assessment] #5 Right Rose -Combined with other wound No -Current Size (cm) - Length 0.8 -Current Size (cm) - Width 0.4 -Current Size (cm) - Depth 0.2 -Total Square Cm 0.32 -Photo Taken No -Epithelialization Medium 34-66% -Tunneling No -Undermining/Tunneling No -Circular Undermining No -Exudate Amt Small -Exudate Type Serosanguine[place] -Wound Margin Flat & Intact -Granulation Amt Large (67-100%) -Granulation Quality [place] -Slough/Fibrin Yes -Necrosis Amt Small (1-33%) -Necrotic Tissue Type Adherent Slough -Structure Exposed N/A -Texture (Yu-wound Skin Appearance) Assessed -Moisture (Yu-wound Skin Appearance Assessed,Dry/ ) Scaly -Color (Yu-wound Skin Appearance) Assessed -Temperature (Yu-wound Skin No Abnormality Appearance) (Pt Warm) -Tenderness on Palpation (Yu-wound No Skin Appearance) -Ulcer Cleansing Rinsed/ Irrigated with Saline -Foul Odor after Cleansing No -Anesthetic Used 4% Lidocaine Solution #4 R Plantar Foot -Combined with other wound No -Current Size (cm) - Length 0.3 -Current Size (cm) - Width 0.6 -Current Size (cm) - Depth 0.1 -Total Square Cm 0.18 -Photo Taken No -Epithelialization Small 1-33% -Tunneling No -Undermining/Tunneling No -Circular Undermining No -Exudate Amt None Present -Wound Margin Flat & Intact -Granulation Amt None Present (0 %) -Slough/Fibrin Yes -Necrosis Amt Large (67-100%) -Necrotic Tissue Type Adherent Slough -Structure Exposed N/A -Texture (Yu-wound Skin Appearance) Assessed,Callus -Moisture (Yu-wound Skin Appearance Assessed,Dry/ ) Scaly -Color (Yu-wound Skin Appearance) Assessed -Temperature (Yu-wound Skin No Abnormality Appearance) (Pt Warm) -Tenderness on Palpation (Yu-wound No Skin Appearance) -Ulcer Cleansing Rinsed/ Irrigated with Saline -Foul Odor after Cleansing No -Anesthetic Used 4% Lidocaine Solution [Edema Assessment] -Lower Limb Edema Present Yes -Right Calf (cm) 38.5 -Right Ankle (cm) 24.5 WC - Nurse 2 - General Ulcer CM Notes Start: 05/20/19 08:24 Freq: Status: Active Protocol: Activity Type Activity Date Activity User E-Sign Co-Sign Detail Recorded Client Recorded Date Recorded By Document 06/03/19 09:06 DV [id number] 06/03/19 09:08 DV 06/03/19 09:06 Wound Center Nurse 2 [Procedure/Treatment] #5 Right Rose -Time 09:06 -Correct Patient Yes -Correct Side, Site, Position Yes -Correct Procedure Yes -Procedure Performed Yes -Type of Procedure Debridement -Clinical Debridement Subcutaneous -Post Debridement Size (cm) - Length 0.5 -Post Debridement Size (cm) - Width 0.4 -Post Debridement Size (cm) - Depth 0.1 -Total Square Cm 0.20 -Wound/Ulcer Outcome Not Healed -Ulcer Cleansing Rinsed/ Irrigated with Saline -Foul Odor after Cleansing No -Bioengineered Tissue No -Bleeding Controlled with Pressure -Offloading No -Type of Offloading Surgical Shoe -Treatment Response Procedure Tolerated Well #4 R Plantar Foot -Time 09:07 -Correct Patient Yes -Correct Side, Site, Position Yes -Correct Procedure Yes -Procedure Performed Yes -Type of Procedure Debridement -Clinical Debridement Subcutaneous -Post Debridement Size (cm) - Length 1.0 -Post Debridement Size (cm) - Width 0.5 -Post Debridement Size (cm) - Depth 0.2 -Total Square Cm 0.50 -Wound/Ulcer Outcome Not Healed -Ulcer Cleansing Rinsed/ Irrigated with Saline -Foul Odor after Cleansing No -Bioengineered Tissue No -Bleeding Controlled with Pressure -Offloading No -Type of Offloading Surgical Shoe -Treatment Response Procedure Tolerated Well [See Physician Procedure note for Specifics] Pain Scale: 0-10 Numeric [Pain] -Is Patient Pain Free? Yes Musculoskeletal: Tenderness - No significant tenderness with manipulation of either ulcer site Neurological: Sensory exam intact to light touch and pain - With some altered sensation appreciated to bilateral feet consistent with patient's diabetic neuropathy status Psych/Mental Status: Normal Affect, Appropriate Debridement Note Post-Debridement Measurements/Treatment WC - Nurse 2 - General Ulcer CM Notes Start: 05/20/19 08:24 Freq: Status: Active Protocol: Activity Type Activity Date Activity User E-Sign Co-Sign Detail Recorded Client Recorded Date Recorded By Document 05/20/19 08:36 [id number] 05/20/19 08:42 Document 05/27/19 08:53 [id number] 05/27/19 09:05 MD Document 06/03/19 09:06 DV [id number] 06/03/19 09:08 DV 05/20/19 05/27/19 06/03/19 08:36 08:53 09:06 Wound Center Nurse 2 #5 Right Rose -Time 08:38 08:55 09:06 -Correct Patient Yes Yes Yes -Correct Side, Site, Position Yes Yes Yes -Correct Procedure Yes Yes Yes -Procedure Performed Yes Yes Yes -Type of Procedure Debridement Debridement Debridement -Clinical Debridement Subcutaneous Subcutaneous Subcutaneous -Post Debridement Size (cm) - Length 2.5 0.9 0.5 -Post Debridement Size (cm) - Width 1.5 0.5 0.4 -Post Debridement Size (cm) - Depth 1.0 0.1 0.1 -Total Square Cm 3.75 0.45 0.20 -Wound/Ulcer Outcome Not Healed Not Healed Not Healed -Ulcer Cleansing Rinsed/ Rinsed/ Rinsed/ Irrigated with Irrigated with Irrigated with Saline Saline Saline -Foul Odor after Cleansing No No No -Bioengineered Tissue No No No -Bleeding Controlled with Pressure Pressure Pressure -Offloading No Yes No -Type of Offloading Surgical Shoe Surgical Shoe -Treatment Response Procedure Procedure Procedure Tolerated Well Tolerated Well Tolerated Well #4 R Plantar Foot -Time 08:37 08:56 09:07 -Correct Patient Yes Yes Yes -Correct Side, Site, Position Yes Yes Yes -Correct Procedure Yes Yes Yes -Procedure Performed Yes Yes Yes -Type of Procedure Debridement Debridement Debridement -Clinical Debridement Subcutaneous Subcutaneous Subcutaneous -Post Debridement Size (cm) - Length 1 0.8 1.0 -Post Debridement Size (cm) - Width 0.5 0.4 0.5 -Post Debridement Size (cm) - Depth 0.2 0.2 0.2 -Total Square Cm 0.5 0.32 0.50 -Wound/Ulcer Outcome Not Healed Not Healed Not Healed -Ulcer Cleansing Rinsed/ Rinsed/ Rinsed/ Irrigated with Irrigated with Irrigated with Saline Saline Saline -Foul Odor after Cleansing No No No -Bioengineered Tissue No No No -Bleeding Controlled with Pressure Pressure Pressure -Offloading Yes Yes No -Type of Offloading Surgical Shoe -Treatment Response Procedure Tolerated Well Pain Scale: 0-10 Numeric Is Patient Pain Free? Yes Yes Yes Wound debrided: Right sub-fifth metatarsal head Laterality: Right Type of Debridement: Excisional debridement Anesthesia Used: 5% Lidocaine Gel Depth: in the subcutaneous layer Percentage of wound debrided: 100 Instrument Used: #15 blade Tissue Removed: Devitalized subcutaneous tissue, adherent slough, fibrin, biofilm Severity: Fat Layer Exposed Amount of bleeding with debridement: Mild Bleeding Controlled with: Pressure Patient tolerated procedure well - Additional Wound Wound debrided: Right anterior rose Laterality: Right Type of Debridement: Excisional debridement Anesthesia Used: 5% Lidocaine Gel Depth: in the subcutaneous layer Percentage of wound debrided: 100 Instrument Used: #15 blade Tissue Removed: Adherent slough, fibrin Severity: Fat Layer Exposed Amount of bleeding with debridement: Mild Bleeding Controlled with: Pressure Patient tolerated procedure: Patient tolerated procedure well Assessment/Plan Assessment: Ulcer right sub-fifth met head. Ulcer right leg. DM Plan: Patient was examined and evaluated again today for ulcers to right plantar foot and his right lower rose. Continued improvement noted to rose and stable to foot. Another subcutaneous excisional debridement was performed as noted in the clinical panel to each ulcer site. The ulcer sites were carefully cleansed and then dressed with Aquacel Ag to the right anterior rose ulcer base followed by dry sterile dressing. Jessica was applied to the sub-fifth met ulcer site followed by dry sterile dressing. The importance of continued offloading was discussed at great length again today. Patient is to continue with offloading surgical shoe. He is to try to return to offloading CAM walker if possible and if it does not irritate his rose ulcer site. I again stressed the importance of taking some time off of work to completely rest and relax the foot. I continue to recommended nutritional supplementation with a high-protein diet in order to optimize wound healing potential for this patient. Importance of tight glycemic control was stressed to the patient today. Smoking cessation was discussed with this patient today. Patient was educated on all signs and symptoms of local and systemic infection, and he was instructed to go to the emergency room immediately should he notice any. All other questions were answered to the patient's satisfaction. Patient will follow-up in clinic in 1 week to check on progress, or sooner if needed.
[2019-06-09 14:47] VITALS: BP 125/75; PULSE 122; RESP 16; TEMP 36.8; BMI 28.2
--- NOTE | 2019-06-14 13:20 | PCM.WC.PN ---
(1) Delayed wound healing Status: Chronic Code(s): T14.8XXD - Other injury of unspecified body region, subsequent encounter (2) Diabetes mellitus type 1 Status: Chronic Code(s): E10.9 - Type 1 diabetes mellitus without complications (3) Ulcer of right foot with fat layer exposed Status: Chronic Code(s): L97.512 - Non-pressure chronic ulcer of other part of right foot with fat layer exposed (4) Ulcer of right lower extremity with fat layer exposed Status: Chronic Code(s): L97.912 - Non-pressure chronic ulcer of unspecified part of right lower leg with fat layer exposed Type of Wound Date of Service: 06/09/19 Chief Complaint: right plantar foot ulcer and right leg History of Wound: This 33-year-old diabetic male presents to the wound healing center for ulcer sub-right fifth metatarsal head that he states re-opened about 10 days ago. He says he had been trying to trim a callus in the area on his own and made the area very slightly bleed and it has very slowly worsened over the last 10 days. He says he tried to use old dressing supplies and keep the area offloaded, but he says he was not noticing any improvement. He says he knows he made a mistake by again failing to be fitted for diabetic shoes once he was healed 6 months ago. He denies any purulence, surrounding or extending redness, or increase in warmth. Progress of Wound: Courtesy visit for Dr. Meredith, no signs of infection at this time, patient returns to clinic today for right anterior rose and right plantar foot ulcer. Rose ulcer improvig and foot ulcer stable. - Physical Exam Vital Signs Temp Pulse Resp BP 98.2 F 122 H 16 125/75 H 06/09/19 14:47 06/09/19 14:47 06/09/19 14:47 06/09/19 14:47 General: Alert, Oriented x3, Cooperative, No apparent distress HEENT: Atraumatic Oral: Moist Mucosa Lungs: Clear to auscultation Cardiovascular: Regular rate Abdomen: Soft, Non Tender Extremities: No clubbing, No cyanosis, No edema Skin: Ulcer/ Wound - see nursing documentation, slough and devitalized tissue present no signs of infection Neurological: Neuro grossly intact Psych/Mental Status: Normal Affect, Appropriate, Alert and oriented to time, place, person, mood and affect Debridement Note Post-Debridement Measurements/Treatment WC - Nurse 2 - General Ulcer CM Notes Start: 05/20/19 08:24 Freq: Status: Active Protocol: Activity Type Activity Date Activity User E-Sign Co-Sign Detail Recorded Client Recorded Date Recorded By Document 05/20/19 08:36 [id number] 05/20/19 08:42 MD Document 05/27/19 08:53 [id number] 05/27/19 09:05 MD Document 06/03/19 09:06 DV [id number] 06/03/19 09:08 DV Document 06/09/19 15:03 JF [id number] 06/09/19 15:05 JF 05/20/19 05/27/19 06/03/19 08:36 08:53 09:06 Wound Center Nurse 2 #5 Right Rose -Time 08:38 08:55 09:06 -Correct Patient Yes Yes Yes -Correct Side, Site, Position Yes Yes Yes -Correct Procedure Yes Yes Yes -Procedure Performed Yes Yes Yes -Type of Procedure Debridement Debridement Debridement -Clinical Debridement Subcutaneous Subcutaneous Subcutaneous -Post Debridement Size (cm) - Length 2.5 0.9 0.5 -Post Debridement Size (cm) - Width 1.5 0.5 0.4 -Post Debridement Size (cm) - Depth 1.0 0.1 0.1 -Total Square Cm 3.75 0.45 0.20 -Wound/Ulcer Outcome Not Healed Not Healed Not Healed -Ulcer Cleansing Rinsed/ Rinsed/ Rinsed/ Irrigated with Irrigated with Irrigated with Saline Saline Saline -Foul Odor after Cleansing No No No -Bioengineered Tissue No No No -Bleeding Controlled with Pressure Pressure Pressure -Offloading No Yes No -Type of Offloading Surgical Shoe Surgical Shoe -Treatment Response Procedure Procedure Procedure Tolerated Well Tolerated Well Tolerated Well #4 R Plantar Foot -Time 08:37 08:56 09:07 -Correct Patient Yes Yes Yes -Correct Side, Site, Position Yes Yes Yes -Correct Procedure Yes Yes Yes -Procedure Performed Yes Yes Yes -Type of Procedure Debridement Debridement Debridement -Clinical Debridement Subcutaneous Subcutaneous Subcutaneous -Post Debridement Size (cm) - Length 1 0.8 1.0 -Post Debridement Size (cm) - Width 0.5 0.4 0.5 -Post Debridement Size (cm) - Depth 0.2 0.2 0.2 -Total Square Cm 0.5 0.32 0.50 -Wound/Ulcer Outcome Not Healed Not Healed Not Healed -Ulcer Cleansing Rinsed/ Rinsed/ Rinsed/ Irrigated with Irrigated with Irrigated with Saline Saline Saline -Foul Odor after Cleansing No No No -Bioengineered Tissue No No No -Bleeding Controlled with Pressure Pressure Pressure -Offloading Yes Yes No -Type of Offloading Surgical Shoe -Treatment Response Procedure Tolerated Well Pain Scale: 0-10 Numeric Is Patient Pain Free? Yes Yes Yes 06/09/19 15:03 Wound Center Nurse 2 #5 Right Rose -Time 15:04 -Correct Patient Yes -Correct Side, Site, Position Yes -Correct Procedure Yes -Procedure Performed Yes -Type of Procedure Debridement -Clinical Debridement Subcutaneous -Post Debridement Size (cm) - Length 0.7 -Post Debridement Size (cm) - Width 0.6 -Post Debridement Size (cm) - Depth 0.1 -Total Square Cm 0.42 -Wound/Ulcer Outcome Not Healed -Ulcer Cleansing Rinsed/ Irrigated with Saline -Foul Odor after Cleansing No -Bioengineered Tissue No -Bleeding Controlled with Pressure -Offloading Yes -Type of Offloading Surgical Shoe -Treatment Response Procedure Tolerated Well #4 R Plantar Foot -Time 15:04 -Correct Patient Yes -Correct Side, Site, Position Yes -Correct Procedure Yes -Procedure Performed Yes -Type of Procedure Debridement -Clinical Debridement Subcutaneous -Post Debridement Size (cm) - Length 1.0 -Post Debridement Size (cm) - Width 1.5 -Post Debridement Size (cm) - Depth 0.3 -Total Square Cm 1.50 -Wound/Ulcer Outcome Not Healed -Ulcer Cleansing Rinsed/ Irrigated with Saline -Foul Odor after Cleansing No -Bioengineered Tissue No -Bleeding Controlled with Pressure -Offloading Yes -Type of Offloading Surgical Shoe -Treatment Response Procedure Tolerated Well Pain Scale: 0-10 Numeric Is Patient Pain Free? Yes Wound debrided: right plantar foot diabetic ulcer and right anterior rose ulcer Laterality: Right Type of Debridement: Excisional debridement Anesthesia Used: 5% Lidocaine Gel Depth: in the subcutaneous layer Percentage of wound debrided: 100 Instrument Used: 7mm curette Tissue Removed: slough and devitalized tissue Severity: Fat Layer Exposed Amount of bleeding with debridement: Mild Bleeding Controlled with: Pressure Patient tolerated procedure well Assessment/Plan Assessment: Ulcer right sub-fifth met head. Ulcer right leg. DM Plan: Courtesy visit Dr. Meredith-Patient was examined and evaluated again today for ulcers to right plantar foot and his right lower rose. Continued improvement noted to rose and stable to foot. Another subcutaneous excisional debridement was performed as noted in the clinical panel to each ulcer site. The ulcer sites were carefully cleansed and then dressed with Aquacel Ag to the right anterior rose ulcer base followed by dry sterile dressing. Jessica was applied to the sub-fifth met ulcer site followed by dry sterile dressing. The importance of continued offloading was discussed at great length again today. Patient is to continue with offloading surgical shoe. He is to try to return to offloading CAM walker if possible and if it does not irritate his rose ulcer site. I again stressed the importance of taking some time off of work to completely rest and relax the foot. I continue to recommended nutritional supplementation with a high-protein diet in order to optimize wound healing potential for this patient. Importance of tight glycemic control was stressed to the patient today. Smoking cessation was discussed with this patient today. Patient was educated on all signs and symptoms of local and systemic infection, and he was instructed to go to the emergency room immediately should he notice any. All other questions were answered to the patient's satisfaction. Patient will follow-up in clinic in 1 week to check on progress, or sooner if needed. Code Visit [id number]: [id number] Kae subq tissue 20 sq cm/<
== END 2019-06-12 23:59 ==
LOC: WC 14:45
PROVIDERS: Family Provider Internal Medicine; PCP Internal Medicine; Visit Provider Podiatrist
DX: E10.621 Type 1 diabetes mellitus with foot ulcer (principal); L97.812 Non-pressure chronic ulcer of other part of right lower leg with fat layer exposed; L97.512 Non-pressure chronic ulcer of other part of right foot with fat layer exposed; E10.622 Type 1 diabetes mellitus with other skin ulcer; M79.671 Pain in right foot
CPT/HCPCS: 11042

== ENCOUNTER 2019-06-11 16:41 | Emergency (ER) | payer MEDICAID, SELFPAY ==
[2019-06-11 16:42] VITALS: BP 98/63; PULSE 130; RESP 23; TEMP 37.2; O2SAT 97; BMI 25.8
[2019-06-11] MEDS: 0.9% Normal Saline 1,000 ML 1000 ML IV (17:33)
[2019-06-11] MEDS: Ondansetron 4 MG/2 ML Vial IV (17:33)
[2019-06-11 17:36] LABS: Absolute Lymphocyte Count 1.98 X10^3/uL (0.83-4.51); Basophil# 0.06 X10^3/uL; Basophil% 0.4 % (0-1); Eosinophil# 0.07 X10^3/uL; Eosinophils% 0.5 % (0-5); Hematocrit 45.6 % (40-54); Hemoglobin 15.7 g/dL (13.0-16.5); Lymphocyte # 1.98 X10^3/ul (4.0); Lymphocyte % 14.8 % (19-41); Mean Corp Hgb Conc 34.4 g/dL (32-36); Mean Platelet Vol. 10.2 fl (6.2-12.0); Monocyte# 1.22 X10^3/uL; Monocyte% 9.1 % (0-10); NRBC Flagged by Analyzer 0 % (0-5); Neutrophil # 10.03 X10^3/uL (2.7-7.7); Neutrophil % 74.8 % (47-70); Platelet Count 277 K/mm3 (150-450); RBC Distribution Width CV 11.6 % (11.6-14.6); RBC Distribution Width SD 36.6 fl (35.1-43.9); Red Blood Count 5.24 M/mm3 (4.6-6.2); White Blood Count 13.4 K/mm3 (4.4-11.0)
--- NOTE | 2019-06-11 17:38 | ED.DCSUM_ITS ---
- ER Visit Summary Date of Service: 06/11/19 Chief Complaint: Chest pain History of Present Illness: The patient is a 34 M who presents with chest pain that is been getting worse over the past 3 to 4 hours. Patient states the pain began while he was at work. Patient states he left work and then went home to let his dog out. Patient states that became worse at that time. Patient describes it as stabbing. Patient states it is over the left lower chest. Patient states nothing makes it better or worse. Patient admits to some nausea and vomiting. Patient admits to some shortness of breath. Patient denies any diaphoresis. Patient admits to a cough. Patient denies any fevers or chills. Patient admits to some acid reflux. Patient states he felt like his heart was racing. Patient also admits to some lightheadedness. Patient is diabetic. Family states the patient has not been eating or drinking much over the past few days. Physical Examination: Vital signs are stable except for mild tachycardia of 130. Patient is afebrile. Patient is in no acute distress. Oral mucosa is pink and somewhat dry. Neck is supple. Trachea is midline. There is no JVD. Heart was regular and tachycardic. Lungs are clear and equal bilaterally. Abdomen is soft. Bowel sounds are normal. There is no tenderness. Cranial nerves II through XII are intact. There are no focal motor or sensory deficits noted. Test Results: EKG showed sinus tachycardia with a rate of 121. There are no acute ST or T wave changes. CBC shows a slight leukocytosis of 13.4. Basic metabolic profile shows normal anion gap. Blood sugar was elevated at 186. BUN was 21 and creatinine was 1.47. PT with INR and PTT were normal. Urinalysis does not show any evidence of urinary tract infection. Troponin was normal. Serum acetone was small. This is likely due to the patient not eating recently. CTA of the chest was obtained due to the patient's persistent tachycardia and tachypnea. There is no evidence of pulmonary embolism. This is interpreted by the radiologist myself. Emergency Department Course and Treatment: Patient was feeling better on reevaluation. Patient's heart rate improved. Patient is resting more comfor tably and his tachypnea has improved. Patient was advised of his results. Patient has a HEART score of 3. Patient was advised that this is low risk for acute cardiac event. Patient was instructed to follow-up with his primary care physician and 5 to 7 days. Patient was instructed to continue his regular diet and insulin as prescribed. Patient understood and was agreeable with the plan. All questions were answered. Disposition: Discharge home Impression: Chest pain This note was generated with [employer] dictation software. It may contain incorrect words, spelling, and punctuation that were not noted in review of the chart prior to signing ED Disposition - Plan for ED Patient: Disposition: Home or Assisted Living Diagnosis: Chest pain Instructions: CHEST PAIN, Uncertain Cause Referrals: Magdiel Hurst MD [Primary Care Provider] - 3-5 Days
[2019-06-11 17:59] LABS: International Normalized Ratio 1.1; Prothrombin Time (Protime)PT. 13.8 SECONDS (11.7-14.9)
[2019-06-11 18:00] LABS: Partial Thromboplast Time 29.1 Seconds (24.1-36.2)
[2019-06-11 18:01] LABS: ALB/GLOB Ratio 1.1 RATIO (0.9-2.4); AST(SGOT) 20 U/L (15-37); Alanine Aminotransfer ALT/SGPT 30 U/L (16-61); Albumin, Serum 4.1 g/dL (3.2-5.0); Alkaline Phosphatase 84 U/L (45-117); Anion Gap 13 (5-15); BUN 21 mg/dL (7-18); BUN/Creat Ratio 14.3 RATIO (10-20); Calcium,Total 9.1 mg/dL (8.5-10.1); Chloride 102 mmol/L (98-107); Creatinine, Serum 1.47 mg/dL (0.70-1.30); EST Glomerular Filtration Rate 58 mL/min (>60); Est Glom Filt Rate - Afr Amer 71 mL/min (>60); Estimated Creatinine Clearance 75.41 ml/min; Globulin 3.9 g/dL (2.2-4.2); Glucose 186 mg/dL (74-106); Lipase 34 U/L (73-393); Potassium 4.2 mmol/L (3.5-5.1); Sodium Level 138 mmol/L (136-145)
[2019-06-11 18:09] LABS: Bacteria 0 SEEN /hpf (None Seen); Squamous Epithelial Cells - UA 0 SEEN /hpf (0-5)
[2019-06-11 18:15] LABS: Color, Urine Yellow (Yellow); Glucose, Dipstick 1000 mg/dl (Normal); Leukocyte Esterase-Dipstick Negative /ul (Negative); Nitrite-Dipstick Negative (Negative); Occult Blood-Urine 25 /ul (Negative); Protein-Dipstick 100 mg/dl (Negative); Urine Clarity Cloudy (Clear); Urine Urobilinogen 1 mg/dl (Normal)
[2019-06-11 18:18] LABS: Urine Bilirubin Dipstick 1 mg/dL (Negative)
[2019-06-11 18:19] LABS: Ketone-Dipstick 150 mg/dl (Negative)
[2019-06-11 18:21] LABS: Mucous, Urine 3+ /hpf (<or=2+)
[2019-06-11 18:22] LABS: Fine Granular Cast- Urine 0-5 SEEN /lpf (0-5); Hyaline Cast 25-50 SEEN /lpf (0-5)
[2019-06-11 18:25] LABS: White Blood Cells 0-5 SEEN /hpf (0-5)
[2019-06-11 18:26] LABS: Red Blood Cells-Urine 0-5 SEEN /hpf (0-5)
--- NOTE | 2019-06-11 18:36 | CT_ITS ---
STUDY: CTA CHEST REASON FOR EXAM: Male, 34 years old. Chest pain RADIATION DOSAGE (If Supplied By Facility): CTDIvol = ( 12.57 ) mGy, DLP = ( 493.82 ) mGycm TECHNIQUE: The examination was performed with the intravenous administration of IV 75mL Isovue-370 75ML. Post-processing of the angiographic images was performed, with multiplanar reformation and 3D reconstruction. Individualized dose optimization techniques were used for this CT. COMPARISON: None. FINDINGS: There is no acute or chronic pulmonary embolism. Aorta is of normal caliber. Lungs are clear. There is no pneumothorax, pulmonary edema or pleural effusions. Mediastinal contents are normal. Osseous structures are intact. Abdominal structures are unremarkable. CT/CTA Chest W/WO Contrast IMPRESSION: 1. No pulmonary embolism 2. No acute vascular thoracic pathology. Electronically Signed: Arsalan Anderson, at 19:11 EST Tel , Service support ,
[2019-06-11 19:01] VITALS: PULSE 105; RESP 12; O2SAT 98
[2019-06-11 19:43] VITALS: BP 132/66; PULSE 112; RESP 16; O2SAT 98
== END 2019-06-11 19:44 | disposition home or self-care (01) ==
PROVIDERS: Emergency Provider Emergency Medicine; Family Provider Internal Medicine; PCP Internal Medicine
DX: R07.9 Chest pain, unspecified (principal); E11.9 Type 2 diabetes mellitus without complications; F17.200 Nicotine dependence, unspecified, uncomplicated; Z79.4 Long term (current) use of insulin
CPT/HCPCS: 36415; 71275; 80053; 81001; 82009; 83690; 84484; 85025; 85610; 85730; 96361; 96374; 99285; J7030; A4216; J2405

== ENCOUNTER 2019-06-13 18:32 | Emergency (ER) | payer MEDICAID, SELFPAY ==
[2019-06-13 18:33] VITALS: BP 154/85; PULSE 124; RESP 16; TEMP 36.8; O2SAT 99; BMI 26.5
--- NOTE | 2019-06-13 18:44 | EKG12_ITS ---
Test Reason : CP Blood Pressure : / mmHG Vent. Rate : 121 BPM Atrial Rate : 121 BPM P-R Int : 118 ms QRS Dur : 076 ms QT Int : 308 ms P-R-T Axes : 074 -05 067 degrees QTc Int : 437 ms Sinus tachycardia Possible Inferior infarct , age undetermined Abnormal ECG Confirmed by ANDREAS BUSTAMANTE, KALPESH ([id number]), movie editor MANNY BURDICK ([id number]) on 06/14/2019 11:39:31 AM Referred By: Confirmed By:KALPESH JOHNS MD
[2019-06-13] MEDS: 0.9% Normal Saline 1,000 ML 150 ML IV (18:56)
[2019-06-13] MEDS: LORazepam 2 MG/ML Syringe 1 MG IV (18:56)
[2019-06-13] MEDS: Aspirin 81 MG TAB.CHEW 324 MG PO (18:57)
[2019-06-13 19:10] LABS: Absolute Lymphocyte Count 1.98 X10^3/uL (0.83-4.51); Absolute Neutrophil Count 11.5 X10^3/uL (2.0-7.7); Basophil# 0.05 X10^3/uL; Basophil% 0.3 % (0-1); Eosinophil# 0.13 X10^3/uL; Eosinophils% 0.9 % (0-5); Hematocrit 46.4 % (40-54); Lymphocyte # 1.98 X10^3/ul (4.0); Lymphocyte % 13.5 % (19-41); Mean Corp Hgb Conc 34.5 g/dL (32-36); Mean Corpuscular Hgb 29.8 pg (27.0-32.0); Mean Corpuscular Volume 86.4 fL (80-94); Mean Platelet Vol. 9.6 fl (6.2-12.0); Monocyte# 1.04 X10^3/uL; Monocyte% 7.1 % (0-10); NRBC Flagged by Analyzer 0 % (0-5); Neutrophil # 11.47 X10^3/uL (2.7-7.7); Neutrophil % 77.9 % (47-70); Platelet Count 265 K/mm3 (150-450); RBC Distribution Width CV 11.6 % (11.6-14.6); RBC Distribution Width SD 36.6 fl (35.1-43.9); Red Blood Count 5.37 M/mm3 (4.6-6.2); White Blood Count 14.7 K/mm3 (4.4-11.0)
[2019-06-13 19:27] LABS: Anion Gap 16 (5-15); BUN 18 mg/dL (7-18); Calcium,Total 9.5 mg/dL (8.5-10.1); Chloride 101 mmol/L (98-107); Creatinine, Serum 1.38 mg/dL (0.70-1.30); EST Glomerular Filtration Rate 63 mL/min (>60); Est Glom Filt Rate - Afr Amer 76 mL/min (>60); Estimated Creatinine Clearance 80.33 ml/min; Glucose 329 mg/dL (74-106); Potassium 4.3 mmol/L (3.5-5.1); Sodium Level 136 mmol/L (136-145)
[2019-06-13 19:28] VITALS: BP 146/88; PULSE 119; RESP 20; O2SAT 100
[2019-06-13] MEDS: 0.9% Normal Saline 1,000 ML 999 ML IV (19:53)
--- NOTE | 2019-06-13 19:55 | RAD_ITS ---
HISTORY: STERNAL CP, Tquot;it feels like there is an air bubble in my chestTquot;. EXAM: XR Chest 1 View: COMPARISON: None FINDINGS: # of images incl. paperwork: 1 Lungs are clear. Heart is not enlarged. No acute osseous pathology perceived. Pulmonary vascularity is distinct. No effusions. RAD/Chest 1 View (Portable) IMPRESSION: Normal. at 2031 Reported and signed by: Lalito Blue MD Electronically Signed: Lalito Blue MD at 20:30 EST Tel , Service support ,
--- NOTE | 2019-06-13 19:57 | ED.DCSUM_ITS ---
- ER Visit Summary Date of Service: 06/13/19 Chief Complaint: [Chest pain] History of Present Illness: The patient is a 34 M [presents to the emergency department complaint of chest discomfort that started 3 to 4 days ago. Patient states that he was seen in the emergency department here 2 days ago for the same complaint and had a significant work-up including a CTA of his chest which was unremarkable. Patient is a diabetic and states that his blood sugars have been more elevated than usual and this morning it was 275. Patient complains of a discomfort in the center of his chest that at times is worse with breathing. Describes some pressure that is relieved with belching. Patient states that he has had no appetite over the last week. Patient states that his and family left him 6 days ago. Patient has been under more stress. He has a diabetic foot ulcer on the right foot but does not think that it looks any different and has had no fevers. Denies recent travel or surgery.] Physical Examination: [HEENT-PERRLA, EOMI. Cranial nerves II through XII grossly intact. TMs clear. Mucous membranes moist. No adenopathy. Cardiovascular-regular rate and rhythm without murmur or ectopy Lungs-clear to auscultation, chest wall stable without crepitus or subcu emph ysema Abdomen-normoactive bowel sounds, soft, nontender, no rebound or rigidity, no peritoneal signs. Extremities-intact ?4, normal range of motion, normal pulses, atraumatic. Right foot-patient does have a diabetic foot ulcer on the lateral aspect of the first MTP joint without significant erythema or drainage.] Test Results: [EKG obtained on arrival shows sinus rhythm with a ventricular rate of 122 bpm with no acute segment changes. CBC with differential obtained showed a white count of 14.7, hemoglobin 16, hematocrit 46, platelets 265. Chemistry showed a sodium 136, potassium 4.3, chloride 101, CO2 19, BUN 18, creatinine 1.38 and glucose of 324. Troponin is less than 0.15. Anion gap was elevated at 16.] Chest x-ray was unremarkable. Patient had small serum acetone. Emergency Department Course and Treatment: [An IV line established patient was given a liter normal same fluid bolus. Patient was started on an insulin drip.] After patient was seen by hospitalist he wanted to be discharged and refused admission. The hospitalist and I spoke with the patient and eventually he agreed to stay and be admitted for treatment of his DKA. Prior to going upstairs patient states that his family needs him and he needs to leave as he is taking care of his mother who has a broken femur at home. He will sign out [facility] MEDICAL AD[facility]. Patient understands risk of dehydration, , disability, organ failure. Patient is able to consent and has capacity to make decision. He understands he may return at any time for admission and treatment. Prior to discharge his sugar had decreased to 135. Patient will check his blood sugars frequently. Treatment Plan: [Admit for treatment of DKA Disposition: [Admit] Impression: [Diabetic ketoacidosis Chest pain-etiology uncertain] Patient signed out [facility]INST MEDICAL ADVICE This note was generated with [employer] dictation software. It may contain incorrect words, spelling, and punctuation that were not noted in review of the chart prior to signing ED Disposition - Plan for ED Patient:
--- NOTE | 2019-06-13 20:12 | PCM.HP.STD ---
Problem List (1) DKA (diabetic ketoacidoses) Status: Acute (2) Aerophagia Status: Acute History of Present Illness Date of Admission: 06/13/19 Chief Complaint: chest tightness The patient is a 34 year old M with a significant history of type 1 diabetes who presented to emergency department with chest tightness. He has chest tightness when he tries to burp. Associated with his symptoms is shortness of breath and heartburn. He has relieved when he vomits. His symptoms has been going on for about 3 days. Patient was at our emergency department previously on 06/11/2018 where a cardiac work-up was unremarkable. Patient reports being under intense stress and having depression from his and children leaving him about 6 days ago. He reported on the day of presentation his started to email him and this is giving him some relief. Patient reported that at home his blood glucose was elevated at around 285. He reports compliance with his insulin regimen. Patient reports a chronic diabetic wound on the lateral side of his right foot that has remained unchanged. At the emergency department patient was found to have lab consistent with mild DKA and patient was started on an insulin drip. 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) Ulcer of right lower extremity with fat layer exposed (Chronic) Diabetes mellitus type 1 (Chronic) Diabetes mellitus type 2, uncontrolled, with complications (Chronic) Medical History: Medical History (Last Reviewed 06/13/19 @ 20:50 by Anthony Larson MD) Type 1 diabetes mellitus E10.9 Dx : age 19 Last exacerbation : DKA : on dx Hypoglycemic episode : never ER visit : on dx Allergies cefprozil [From Cefzil] Allergy (Unknown, Verified 06/13/19 18:37) Unknown industrial glue Allergy (Unknown, Uncoded 06/13/19 18:37) Unknown Home Medications: Ambulatory Orders Medication Instructions Recorded Insulin Aspart [Novolog Flexpen] See Protocol SQ ACHS 04/06/19 Insulin Glargine,Hum.rec.anlog 45 unit SQ QHS 04/06/19 [Basaglar Evelynikpen U-100] Surgical History: no surgical history Smoking Status: Current every day smoker Tobacco Use: Cigarettes Alcohol: None - *Family History Maternal Family History: Family History (Last Reviewed 06/13/19 @ 20:53 by Anthony Larson MD) Father Heart disease Mother Diabetes Review of Systems Constitutional: Denies: Chills, Fever, Weight Change HEENT: Denies: Head Aches, Sinus Congestion, Sinus Drainage Cardiovascular: Reports: Chest Tightness. Denies: Palpitations Respiratory: Reports: Shortness of Breath. Denies: Cough, Sputum production Gastrointestinal: Reports: Vomiting. Denies: Abdominal Pain, Nausea Genitourinary: Denies: Dysuria Musculoskeletal: Denies: Joint Pain, Joint Tenderness Skin: Reports: Wounds - lateral side of right foot. Denies: Rash Neurological: Denies: Numbness, Tingling, Focal weakness Psychiatric: Reports: Anxiety, Depression. Denies: Homicidal Ideations, Suicidal Ideations Hematologic/ Lymphatic: Denies: Easy Bruising, Easy Bleeding VTE Information - Inpt Only VTE Present on Admission: No VTE Mechan Device Prophylaxis: None VTE Pharm Prophylaxis ordered?: No Reason prophylaxis not ordered:: Treatment Not Indicated - Low risk, ambulate Patient Problems: Active and Suspected Problems (Last Reviewed 06/13/19 @ 20:50 by Anthony Larson MD) DKA (diabetic ketoacidoses) (Acute) Aerophagia (Acute) - Physical Exam Vitals/I&O's: Vital Signs Temp Pulse Resp BP Pulse Ox 98.2 F 119 H 20 H 146/88 H 100 06/13/19 18:33 06/13/19 19:28 06/13/19 19:28 06/13/19 19:28 06/13/19 19:28 Oxygen Delivery Method Room Air Weight: 86.4 kg Body Mass Index (BMI) 26.5 Intake and Output for Last 24 Hours 06/11/19 06/12/19 06/13/19 23:59 23:59 23:59 Intake Total 142.5 / 142.5 Balance 142.5 / 142.5 General: Alert, Oriented x3, Cooperative HEENT: Atraumatic, PERRLA, EOMI, Normocephalic Neck: Supple, No JVD, Negative Carotid Bruits Lungs: Clear to auscultation, Normal air movement, No rhonchi, No wheeze, No rales, Tachypneic Cardiovascular: Regular rate, Regular Rhythm, Normal S1, Normal S2, No murmurs, Tachycardic Abdomen: Bowel Sounds Present, Soft, Non Tender Extremities: No edema, Capillary Refill Less than 3 Seconds Skin: - - Lateral side of right foot with wound and callus; gilman drainage (unchanged per patient) Musculoskeletal: No Tenderness to Palpation of Joints or Extremities Neurological: Cranial nerves II-XII grossly intact Psych/Mental Status: Anxious Laboratory Results 06/13/19 13:35: Acetone Level SMALL H 06/13/19 18:35: WBC 14.7 H, RBC 5.37, Hgb 16.0, Hct 46.4, MCV 86.4, MCH 29.8, MCHC 34.5, RDW Std Deviation 36.6, RDW Coeff of Sharon 11.6, Plt Count 265, MPV 9.6, Immature Gran % (Auto) 0.300, Neut % (Auto) 77.9 H, Lymph % (Auto) 13.5 L, Ralls % (Auto) 7.1, Eos % (Auto) 0.9, Baso % (Auto) 0.3, Absolute Neuts (auto) 11.5 H, Absolute Lymphs (auto) 1.98, Nucleated RBC % 0 06/13/19 18:35: Sodium 136, Potassium 4.3, Chloride 101, Carbon Dioxide 19.0 L, Anion Gap 16 H, BUN 18, Creatinine 1.38 H, Estim Creat Clear Calc 80.33, Est GFR (MDRD) Af Amer 76, Est GFR (MDRD) Non-Af 63, BUN/Creatinine Ratio 13.0, Glucose 329 H, Calcium 9.5, Troponin I < 0.015 Current Medications Dextrose (D50w Syringe) 0 gm IV X1 PRN; Protocol PRN Reason: Hypoglycemia Protocol Sodium Chloride () 1,000 mls @ 150 mls/hr IV .Q6H40M DEVEN Last Infusion: 06/13/19 19:53 Dose: 0 mls/hr Documented by: Insulin Human Lispro 100 unit/ (Sodium Chloride) 100 mls @ 8.64 mls/hr IV .[id number] DEVEN; Protocol Last Admin: 06/13/19 19:55 Dose: 0.1 units/kg/hr, 8.6 mls/hr Documented by: Sodium Chloride () 1,000 mls @ 999 mls/hr IV .Q1H1M ONE Stop: 06/13/19 20:29 Last Admin: 06/13/19 19:53 Dose: 999 mls/hr Documented by: Assessment/Plan All Active Problems (Last Reviewed 06/13/19 @ 20:50 by Anthony Larson MD) Pain in right foot (Acute) Sepsis (Acute) Cellulitis of leg (Resolved) History of diabetic neuropathy (Acute) DKA (diabetic ketoacidoses) (Acute) Aerophagia (Acute) The patient is a 34 year old M with a significant history of type 1 diabetes who presented to emergency department with chest tightness when he tries to burp and also found to have mild DKA. Mild DKA The patient reports compliance with home insulin therapy acetone level: small Anion gap of 16 [id number] . Corrected sodium: 140 Insulin drip started from emergency department; continue Completed IV bolus of normal saline and normal saline infusion was started Because of potassium of 4.3 we will start patient on half-normal saline with potassium BMP every 4 hours to calculate anion gap. N.p.o. for now Please in ICU on observation status. Zofran as needed. 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 Aerophagia Troponin was unremarkable at the emergency department. Trend troponin. Received aspirin 324 mg in the emergency department. On June 11, 2019 patient had cardiac work-up at the emergency department that was unremarkable. Will start patient on Protonix IV. Diabetic Wound Wet to dry dressing on wound of lateral right foot; change daily until wound care recommendations. DVT prophylaxis Ambulate Code Visit OBSV E&M: 24503 Initial observation care L3
--- NOTE | 2019-06-13 20:53 | ED.RN ---
PT CALLED OUT TO THAT HE WANTED TO LEAVE. TALKED WITH PT THAT WE RECOMMEND THAT HE STAY, PT CONTINUES TO SAY HE WANTS TO LEAVE. THIS RN NOTIFIED DR. CARLIN AND HE SPOKE WITH THE PT ABOUT THE RISKS FOR LEAVING. PT, DR. CARLIN AND THIS RN SIGNED AMA PAPERWORK.
[2019-06-13 20:55] VITALS: BP 141/88; PULSE 124; RESP 22; O2SAT 99
[2019-06-13 20:55] LABS: Bedside Glucose 133 mg/dL (70-110)
== END 2019-06-13 20:55 | disposition left against medical advice (07) ==
LOC: ED 18:59
PROVIDERS: Emergency Provider Emergency Medicine; Family Provider Internal Medicine; PCP Internal Medicine; Visit Provider Hospitalist
DX: E10.10 Type 1 diabetes mellitus with ketoacidosis without coma (principal); F45.8 Other somatoform disorders; E10.621 Type 1 diabetes mellitus with foot ulcer; L97.512 Non-pressure chronic ulcer of other part of right foot with fat layer exposed; E10.40 Type 1 diabetes mellitus with diabetic neuropathy, unspecified; F17.210 Nicotine dependence, cigarettes, uncomplicated; Z79.4 Long term (current) use of insulin; Z53.29 Procedure and treatment not carried out because of patient's decision for other reasons
CPT/HCPCS: 71045; 80048; 82009; 82962; 84484; 85025; 93005; 96365; 96375; 99284; J7030

== ENCOUNTER 2019-07-09 08:00 | Outpatient (RCR) | payer MEDICAID, SELFPAY ==
[2019-06-13 00:54] VITALS: BP 125/75; PULSE 122; RESP 16; TEMP 36.8
[2019-06-24 09:12] VITALS: BP 144/85; PULSE 95; RESP 16; TEMP 36.9; BMI 26.5
--- NOTE | 2019-06-24 12:08 | PN.PCM_ITS ---
(1) Ulcer of right lower extremity with fat layer exposed Status: Chronic Current Visit: No Code(s): L97.912 - Non-pressure chronic ulcer of unspecified part of right lower leg with fat layer exposed (2) Ulcer of right foot with fat layer exposed Status: Chronic Current Visit: No Code(s): L97.512 - Non-pressure chronic ulcer of other part of right foot with fat layer exposed (3) Chronic ulcer of left foot with fat layer exposed Status: Chronic Current Visit: No Code(s): L97.522 - Non-pressure chronic ulcer of other part of left foot with fat layer exposed (4) Diabetes mellitus type 1 Status: Chronic Current Visit: No Code(s): E10.9 - Type 1 diabetes mellitus without complications Type of Wound Date of Service: 06/24/19 Chief Complaint: right plantar foot ulcer and right leg ulcer History of Wound: This 33-year-old diabetic male presents to the wound healing center for ulcer sub-right fifth metatarsal head that he states re-opened about 10 days ago. He says he had been trying to trim a callus in the area on his own and made the area very slightly bleed and it has very slowly worsened over the last 10 days. He says he tried to use old dressing supplies and keep the area offloaded, but he says he was not noticing any improvement. He says he knows he made a mistake by again failing to be fitted for diabetic shoes once he was healed 6 months ago. He denies any purulence, surrounding or extending redness, or increase in warmth. Progress of Wound: Patient is being seen today as a courtesy visit for Dr. Meredith. Patient returns to clinic today for right anterior rose and right plantar foot ulcer. Rose ulcer improving and foot ulcer stable. The patient denies any fever, chills, nausea, vomiting, or diarrhea. Denies any signs of infection, including increasing pain, redness, swelling, or purulent/foul-smelling drainage from affected area. He states his Darco boot buckle is applying pressure to his right lateral foot ulceration. He previously attempted to remove some of the padding inside the boot to alleviate this pressure, without any improvement. He has been using Jessica to both right lower extremity ulcerations. - Physical Exam Vital Signs Temp Pulse Resp BP 98.4 F 95 16 144/85 H 06/24/19 09:12 06/24/19 09:12 06/24/19 09:12 06/24/19 09:12 General: Alert, Oriented x3, Cooperative, No apparent distress HEENT: Atraumatic, EOMI, Normocephalic Extremities: No clubbing, No cyanosis, No edema, Capillary Refill Less than 3 Seconds, Peripheral Pulses Normal Skin: Ulcer/ Wound - Right lateral plantar foot ulcer, and right rose ulcer; see nursing documentation. No signs of infection, no erythema, no swelling, no purulent/foul-smelling drainage, no probing to bone. Tender to palpation/manipulation of foot ulcer Wound Measurements and Assessment WC - Nurse 1 - General Ulcer Measurement Start: 06/24/19 09:11 Freq: Status: Active Protocol: Activity Type Activity Date Activity User E-Sign Co-Sign Detail Recorded Client Recorded Date Recorded By Document 06/24/19 09:12 [facility] [id number] 06/24/19 09:21 [facility] 06/24/19 09:12 Wound Center Nurse 1 [Ulcer Assessment] #5 Right Rose -Combined with other wound No -Current Size (cm) - Length 1.2 -Current Size (cm) - Width 0.5 -Current Size (cm) - Depth 0.1 -Total Square Cm 0.60 -Date of Last Picture (Recall this 06/24/19 field) -Photo Taken Yes -Epithelialization Small 1-33% -Tunneling No -Undermining/Tunneling No -Circular Undermining No -Exudate Amt None Present -Wound Margin Flat & Intact -Granulation Amt Large (67-100%) -Granulation Quality Pale,Red -Slough/Fibrin No -Necrosis Amt None Present (0 %) -Texture (Yu-wound Skin Appearance) Assessed, Scarring -Moisture (Yu-wound Skin Appearance Assessed,Dry/ ) Scaly -Color (Yu-wound Skin Appearance) Assessed -Temperature (Yu-wound Skin No Abnormality Appearance) (Pt Warm) -Tenderness on Palpation (Yu-wound No Skin Appearance) -Ulcer Cleansing Rinsed/ Irrigated with Saline -Foul Odor after Cleansing No -Anesthetic Used 5% Lidocaine Gel #4 R Plantar Foot -Combined with other wound No -Current Size (cm) - Length 1 -Current Size (cm) - Width 3.4 -Current Size (cm) - Depth 0.3 -Total Square Cm 3.4 -Date of Last Picture (Recall this 06/24/19 field) -Photo Taken Yes -Epithelialization None Present -Tunneling No -Undermining/Tunneling No -Circular Undermining No -Exudate Amt Small -Exudate Type Purulent -Wound Margin Distinct, Outline Attached -Granulation Amt Small (1-33%) -Granulation Quality Red -Slough/Fibrin Yes -Necrosis Amt Large (67-100%) -Necrotic Tissue Type Adherent Slough -Texture (Yu-wound Skin Appearance) Assessed, Scarring -Moisture (Yu-wound Skin Appearance Assessed ) -Color (Yu-wound Skin Appearance) Assessed -Temperature (Yu-wound Skin No Abnormality Appearance) (Pt Warm) -Tenderness on Palpation (Yu-wound No Skin Appearance) -Ulcer Cleansing Rinsed/ Irrigated with Saline -Foul Odor after Cleansing No -Anesthetic Used 5% Lidocaine Gel WC - Nurse 2 - General Ulcer CM Notes Start: 06/24/19 09:11 Freq: Status: Active Protocol: Activity Type Activity Date Activity User E-Sign Co-Sign Detail Recorded Client Recorded Date Recorded By Document 06/24/19 10:01 DV [id number] 06/24/19 10:16 DV 06/24/19 10:01 Wound Center Nurse 2 [Procedure/Treatment] #5 Right Rose -Time 10:04 -Correct Patient Yes -Correct Side, Site, Position Yes -Correct Procedure Yes -Procedure Performed Yes -Type of Procedure Debridement -Clinical Debridement Subcutaneous -Post Debridement Size (cm) - Length 0.6 -Post Debridement Size (cm) - Width 0.3 -Post Debridement Size (cm) - Depth 0.1 -Total Square Cm 0.18 -Wound/Ulcer Outcome Not Healed -Ulcer Cleansing Rinsed/ Irrigated with Saline -Foul Odor after Cleansing Yes -Bleeding Controlled with Pressure -Treatment Response Procedure Tolerated Well #4 R Plantar Foot -Time 10:04 -Correct Patient Yes -Correct Side, Site, Position Yes -Correct Procedure Yes -Procedure Performed Yes -Type of Procedure Debridement -Clinical Debridement Subcutaneous -Post Debridement Size (cm) - Length 0.7 -Post Debridement Size (cm) - Width 3.0 -Post Debridement Size (cm) - Depth 0.5 -Total Square Cm 2.10 -Wound/Ulcer Outcome Not Healed -Ulcer Cleansing Rinsed/ Irrigated with Saline -Bleeding Controlled with Pressure -Offloading Yes -Type of Offloading Surgical Shoe -Treatment Response Procedure Tolerated Well [See Physician Procedure note for Specifics] Pain Scale: 0-10 Numeric [Pain] -Is Patient Pain Free? Yes Musculoskeletal: Tenderness - Tender to palpation/manipulation of foot ulcer Neurological: Neuro grossly intact Psych/Mental Status: Normal Affect, Appropriate Debridement Note Post-Debridement Measurements/Treatment WC - Nurse 2 - General Ulcer CM Notes Start: 06/24/19 09:11 Freq: Status: Active Protocol: Activity Type Activity Date Activity User E-Sign Co-Sign Detail Recorded Client Recorded Date Recorded By Document 06/24/19 10:01 DV [id number] 06/24/19 10:16 DV 06/24/19 10:01 Wound Center Nurse 2 #5 Right Rose -Time 10:04 -Correct Patient Yes -Correct Side, Site, Position Yes -Correct Procedure Yes -Procedure Performed Yes -Type of Procedure Debridement -Clinical Debridement Subcutaneous -Post Debridement Size (cm) - Length 0.6 -Post Debridement Size (cm) - Width 0.3 -Post Debridement Size (cm) - Depth 0.1 -Total Square Cm 0.18 -Wound/Ulcer Outcome Not Healed -Ulcer Cleansing Rinsed/ Irrigated with Saline -Foul Odor after Cleansing Yes -Bleeding Controlled with Pressure -Treatment Response Procedure Tolerated Well #4 R Plantar Foot -Time 10:04 -Correct Patient Yes -Correct Side, Site, Position Yes -Correct Procedure Yes -Procedure Performed Yes -Type of Procedure Debridement -Clinical Debridement Subcutaneous -Post Debridement Size (cm) - Length 0.7 -Post Debridement Size (cm) - Width 3.0 -Post Debridement Size (cm) - Depth 0.5 -Total Square Cm 2.10 -Wound/Ulcer Outcome Not Healed -Ulcer Cleansing Rinsed/ Irrigated with Saline -Bleeding Controlled with Pressure -Offloading Yes -Type of Offloading Surgical Shoe -Treatment Response Procedure Tolerated Well Pain Scale: 0-10 Numeric Is Patient Pain Free? Yes Wound debrided: Right plantar foot ulcer Laterality: Right Type of Debridement: Excisional debridement Anesthesia Used: 5% Lidocaine Gel Depth: in the subcutaneous layer Percentage of wound debrided: 100 Instrument Used: 7mm curette Tissue Removed: Callus, slough and vitalized tissue Severity: Fat Layer Exposed Amount of bleeding with debridement: Mild Bleeding Controlled with: Compression and gauze Patient tolerated procedure well - Additional Wound Wound debrided: Right anterior rose ulcer Laterality: Right Type of Debridement: Excisional debridement Anesthesia Used: 5% Lidocaine Gel Depth: in the subcutaneous layer Percentage of wound debrided: 100 Instrument Used: 3mm curette Tissue Removed: Slough and vitalized tissue Severity: Fat Layer Exposed Amount of bleeding with debridement: Mild Bleeding Controlled with: Compression and gauze Patient tolerated procedure: Patient tolerated procedure well Assessment/Plan Assessment: Ulcer right sub-fifth met head. Ulcer right leg. DM Plan: Courtesy visit Dr. Meredith. Patient was examined and evaluated again today for ulcers to right plantar foot and right lower rose. Continued improvement noted to rose and stable to foot. Another subcutaneous excisional debridement was performed as noted in the clinical panel to each ulcer site. The ulcer sites were carefully cleansed and then dressed with Jessica to the right anterior rose ulcer base followed by dry sterile dressing. Jessica was applied to the sub- fifth met ulcer site followed by dry sterile dressing. The importance of continued offloading was discussed at great length again today. Patient is to continue with offloading surgical shoe. Instructed to pad foot ulcer with ABD pad beneath Darco boot. He is to try to return to offloading CAM walker if possible and if it does not irritate his rose ulcer site. I again stressed the importance of taking some time off of work to completely rest and relax the foot. I continue to recommended nutritional supplementation with a high-protein diet in order to optimize wound healing potential for this patient. Importance of tight glycemic control was stressed to the patient today. Smoking cessation was discussed with this patient today. Patient was educated on all signs and symptoms of local and systemic infection, and he was instructed to go to the emergency room immediately should he notice any. All other questions were answered to the patient's satisfaction. Patient will follow-up in clinic in 1 week to check on progress, or sooner if needed. Code Visit [id number]: [id number] Kae subq tissue 20 sq cm/<
[2019-07-01 08:41] VITALS: BP 119/74; PULSE 101; RESP 18; TEMP 36.9; BMI 26.5
--- NOTE | 2019-07-01 09:45 | PCM.WC.PN ---
(1) Ulcer of right foot with fat layer exposed Status: Chronic Current Visit: No Code(s): L97.512 - Non-pressure chronic ulcer of other part of right foot with fat layer exposed (2) Pain in right foot Status: Acute Current Visit: No Code(s): M79.671 - Pain in right foot (3) Delayed wound healing Status: Chronic Current Visit: No Code(s): T14.8XXD - Other injury of unspecified body region, subsequent encounter (4) Diabetes mellitus type 1 Status: Chronic Current Visit: No Code(s): E10.9 - Type 1 diabetes mellitus without complications Type of Wound Date of Service: 07/01/19 Chief Complaint: right plantar foot ulcer and right leg ulcer History of Wound: This 33-year-old diabetic male presents to the wound healing center for ulcer sub-right fifth metatarsal head that he states re-opened about 10 days ago. He says he had been trying to trim a callus in the area on his own and made the area very slightly bleed and it has very slowly worsened over the last 10 days. He says he tried to use old dressing supplies and keep the area offloaded, but he says he was not noticing any improvement. He says he knows he made a mistake by again failing to be fitted for diabetic shoes once he was healed 6 months ago. He denies any purulence, surrounding or extending redness, or increase in warmth. Progress of Wound: Patient returns to clinic today for right anterior rose and right plantar foot ulcer. Rose ulcer appears to be healed at this time. Ulcer to the foot appears larger than the last visit. Patient denies any purulence or any other signs of infection to the area. - Physical Exam Vital Signs Temp Pulse Resp BP 98.5 F 101 H 18 119/74 07/01/19 08:41 07/01/19 08:41 07/01/19 08:41 07/01/19 08:41 General: Alert, Oriented x3, Cooperative, No apparent distress Extremities: No cyanosis, Capillary Refill Less than 3 Seconds, No Calf Tenderness - Negative Sean and Sanders signs bilateral, Edema - Very minor lower extremity edema, Peripheral Pulses Normal - DP and PT pulses palpable bilateral Skin: Ulcer/ Wound - Ulcer to anterior rose appears healed today. Ulcer to right foot sub 5th met head with fat layer exposed. Ulcer larger than when I last saw the patient. The base is noted to be a mixture of adherent slough, fibrin, devitalized subcutaneous tissue, granular tissue, as well as some slight surrounding hyperkeratotic tissue again this week. There is no probing to bone, no tracking, no undermining , no purulence, no streaking cellulitis, no significant increase in warmth. Wound Measurements and Assessment WC - Nurse 1 - General Ulcer Measurement Start: 06/24/19 09:11 Freq: Status: Active Protocol: Activity Type Activity Date Activity User E-Sign Co-Sign Detail Recorded Client Recorded Date Recorded By Document 07/01/19 08:41 PEDRO [id number] 07/01/19 08:49 PEDRO 07/01/19 08:41 Wound Center Nurse 1 [Ulcer Assessment] #5 Right Rose -Combined with other wound No -Current Size (cm) - Length 0.1 -Current Size (cm) - Width 0.1 -Current Size (cm) - Depth 0.1 -Total Square Cm 0.01 -Photo Taken Yes -Epithelialization Large 67-100% -Tunneling No -Undermining/Tunneling No -Circular Undermining No -Exudate Amt None Present -Wound Margin Flat & Intact -Granulation Amt Large (67-100%) -Granulation Quality [place] -Slough/Fibrin No -Structure Exposed N/A -Texture (Yu-wound Skin Appearance) Assessed -Moisture (Yu-wound Skin Appearance Assessed,Dry/ ) Scaly -Color (Yu-wound Skin Appearance) Assessed -Temperature (Yu-wound Skin No Abnormality Appearance) (Pt Warm) -Tenderness on Palpation (Yu-wound No Skin Appearance) -Ulcer Cleansing Rinsed/ Irrigated with Saline -Foul Odor after Cleansing No #4 R Plantar Foot -Combined with other wound No -Current Size (cm) - Length 3.4 -Current Size (cm) - Width 0.8 -Current Size (cm) - Depth 0.4 -Total Square Cm 2.72 -Photo Taken Yes -Epithelialization None Present -Tunneling No -Undermining/Tunneling No -Circular Undermining No -Exudate Amt Medium -Exudate Type Serosanguineous -Wound Margin Flat & Intact -Granulation Amt Small (1-33%) -Granulation Quality Red -Slough/Fibrin Yes -Necrosis Amt Large (67-100%) -Necrotic Tissue Type Adherent Slough -Structure Exposed N/A -Texture (Yu-wound Skin Appearance) Assessed,Callus -Moisture (Yu-wound Skin Appearance Assessed,Dry/ ) Scaly -Color (Yu-wound Skin Appearance) Assessed, Erythema,Rubor -Temperature (Yu-wound Skin No Abnormality Appearance) (Pt Warm) -Tenderness on Palpation (Yu-wound No Skin Appearance) -Ulcer Cleansing Rinsed/ Irrigated with Saline -Foul Odor after Cleansing No -Anesthetic Used 4% Lidocaine Solution [Edema Assessment] -Lower Limb Edema Present No WC - Nurse 2 - General Ulcer CM Notes Start: 06/24/19 09:11 Freq: Status: Active Protocol: Activity Type Activity Date Activity User E-Sign Co-Sign Detail Recorded Client Recorded Date Recorded By Document 07/01/19 09:03 DV [id number] 07/01/19 09:14 DV 07/01/19 09:03 Wound Center Nurse 2 [Procedure/Treatment] #5 Right Rose -Time 09:06 -Correct Patient Yes -Correct Side, Site, Position Yes -Correct Procedure No -Procedure Performed No -Post Debridement Size (cm) - Length 0 -Post Debridement Size (cm) - Width 0 -Post Debridement Size (cm) - Depth 0 -Total Square Cm 0 -Wound/Ulcer Outcome Healed- Epithelialized -Bleeding Controlled with Pressure #4 R Plantar Foot -Time 09:06 -Correct Patient Yes -Correct Side, Site, Position Yes -Correct Procedure Yes -Procedure Performed Yes -Type of Procedure Debridement -Clinical Debridement Subcutaneous -Post Debridement Size (cm) - Length 2.3 -Post Debridement Size (cm) - Width 3.0 -Post Debridement Size (cm) - Depth 0.3 -Total Square Cm 6.90 -Wound/Ulcer Outcome Not Healed -Ulcer Cleansing Rinsed/ Irrigated with Saline -Foul Odor after Cleansing No -Bioengineered Tissue No -Bleeding Controlled with Pressure -Offloading No -Type of Offloading Surgical Shoe -Treatment Response Procedure Tolerated Well [See Physician Procedure note for Specifics] Pain Scale: 0-10 Numeric [Pain] -Is Patient Pain Free? Yes Musculoskeletal: Tenderness - Some very minor tenderness with manipulation of right foot ulcer Neurological: Sensory exam intact to light touch and pain - With some altered sensation appreciated bilateral feet consistent with patient's diabetic neuropathy status Psych/Mental Status: Normal Affect, Appropriate Debridement Note Post-Debridement Measurements/Treatment WC - Nurse 2 - General Ulcer CM Notes Start: 06/24/19 09:11 Freq: Status: Active Protocol: Activity Type Activity Date Activity User E-Sign Co-Sign Detail Recorded Client Recorded Date Recorded By Document 06/24/19 10:01 DV [id number] 06/24/19 10:16 DV Document 07/01/19 09:03 DV [id number] 07/01/19 09:14 DV 06/24/19 07/01/19 10:01 09:03 Wound Center Nurse 2 #5 Right Rose -Time 10:04 09:06 -Correct Patient Yes Yes -Correct Side, Site, Position Yes Yes -Correct Procedure Yes No -Procedure Performed Yes No -Type of Procedure Debridement -Clinical Debridement Subcutaneous -Post Debridement Size (cm) - Length 0.6 0 -Post Debridement Size (cm) - Width 0.3 0 -Post Debridement Size (cm) - Depth 0.1 0 -Total Square Cm 0.18 0 -Wound/Ulcer Outcome Not Healed Healed- Epithelialized -Ulcer Cleansing Rinsed/ Irrigated with Saline -Foul Odor after Cleansing Yes -Bleeding Controlled with Pressure Pressure -Treatment Response Procedure Tolerated Well #4 R Plantar Foot -Time 10:04 09:06 -Correct Patient Yes Yes -Correct Side, Site, Position Yes Yes -Correct Procedure Yes Yes -Procedure Performed Yes Yes -Type of Procedure Debridement Debridement -Clinical Debridement Subcutaneous Subcutaneous -Post Debridement Size (cm) - Length 0.7 2.3 -Post Debridement Size (cm) - Width 3.0 3.0 -Post Debridement Size (cm) - Depth 0.5 0.3 -Total Square Cm 2.10 6.90 -Wound/Ulcer Outcome Not Healed Not Healed -Ulcer Cleansing Rinsed/ Rinsed/ Irrigated with Irrigated with Saline Saline -Foul Odor after Cleansing No -Bioengineered Tissue No -Bleeding Controlled with Pressure Pressure -Offloading Yes No -Type of Offloading Surgical Shoe Surgical Shoe -Treatment Response Procedure Procedure Tolerated Well Tolerated Well Pain Scale: 0-10 Numeric Is Patient Pain Free? Yes Yes Wound debrided: Right sub-fifth metatarsal head Laterality: Right Type of Debridement: Excisional debridement Anesthesia Used: 4% Lidocaine Solution Depth: in the subcutaneous layer Percentage of wound debrided: 100 Instrument Used: #15 blade, - - Tissue nipper Tissue Removed: Devitalized subcutaneous tissue, adherent slough, fibrin, biofilm Severity: Fat Layer Exposed Amount of bleeding with debridement: Mild Bleeding Controlled with: Pressure Patient tolerated procedure well Assessment/Plan Assessment: Ulcer right sub-fifth met head. Ulcer right leg. DM Plan: Patient was examined and evaluated again today for ulcers to right plantar foot and his right lower rose. Ulcer to rose appears healed today. Ulcer to right plantar foot appears to be larger since last time I saw the patient. Another subcutaneous excisional debridement was performed as noted in the clinical panel to the ulcer site. Cultures were then taken of ulcer site and sent for aerobic, anaerobic, and MRSA PCR evaluation. Patient started on a course of doxycycline. The ulcer site was carefully cleansed and then dressed with Jessica was to the sub-fifth met ulcer site followed by dry sterile dressing. The importance of continued offloading was discussed at great length again today. 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 I did stressed the importance of the patient being off of work and being off his foot as much as possible. I discussed possibility of knee roller but he says he does not want to go forward with this until talking to work. I again stressed the importance of taking some time off of work to completely rest and relax the foot. I continue to recommended nutritional supplementation with a high-protein diet in order to optimize wound healing potential for this patient. Importance of tight glycemic control was stressed to the patient today. Smoking cessation was discussed with this patient today. Patient was educated on all signs and symptoms of local and systemic infection, and he was instructed to go to the emergency room immediately should he notice any. All other questions were answered to the patient's satisfaction. Patient will follow-up in clinic in 1 week to check on progress, or sooner if needed.
[2019-07-01 14:19] LABS: M R Staph aureus DNA By PCR Negative (Negative); Probe Check PASS; Specimen Processing Control PASS; Staph aureus DNA By PCR POSITIVE (Negative)
[2019-07-09 07:32] VITALS: BP 130/85; PULSE 97; RESP 16; TEMP 36.4; BMI 26.5
--- NOTE | 2019-07-09 10:33 | PCM.WC.PN ---
(1) Ulcer of right lower extremity with fat layer exposed Status: Chronic Current Visit: Yes Code(s): L97.912 - Non-pressure chronic ulcer of unspecified part of right lower leg with fat layer exposed (2) DKA (diabetic ketoacidoses) Status: Acute Current Visit: No Code(s): E11.10 - Type 2 diabetes mellitus with ketoacidosis without coma (3) History of diabetic neuropathy Status: Acute Current Visit: No Code(s): Z86.39 - Personal history of other endocrine, nutritional and metabolic disease (4) Delayed wound healing Status: Chronic Current Visit: No Code(s): T14.8XXD - Other injury of unspecified body region, subsequent encounter (5) Diabetes mellitus type 2, uncontrolled, with complications Status: Chronic Current Visit: No Code(s): E11.8 - Type 2 diabetes mellitus with unspecified complications; E11.65 - Type 2 diabetes mellitus with hyperglycemia Type of Wound Date of Service: 07/09/19 Chief Complaint: right plantar foot ulcer and right leg ulcer History of Wound: This 33-year-old diabetic male presents to the wound healing center for ulcer sub-right fifth metatarsal head that he states re-opened about 10 days ago. He says he had been trying to trim a callus in the area on his own and made the area very slightly bleed and it has very slowly worsened over the last 10 days. He says he tried to use old dressing supplies and keep the area offloaded, but he says he was not noticing any improvement. He says he knows he made a mistake by again failing to be fitted for diabetic shoes once he was healed 6 months ago. He denies any purulence, surrounding or extending redness, or increase in warmth. Progress of Wound: Patient returns to clinic today for right plantar foot ulcer. Ulcer to the foot appears larger in depth than the last visit. Patient denies any purulence or any other signs of infection to the area. More reddened, cultures were done at last visit and showed staph and strep and patient was started on doxycycline which he is tolerating, repeat cultures will be done today. - Physical Exam Vital Signs Temp Pulse Resp BP 97.5 F L 97 16 130/85 H 07/09/19 07:32 07/09/19 07:32 07/09/19 07:32 07/09/19 07:32 General: Alert, Oriented x3, Cooperative, No apparent distress HEENT: Atraumatic Oral: Moist Mucosa Lungs: Clear to auscultation Cardiovascular: Regular rate Extremities: No clubbing, No cyanosis, No edema Skin: Ulcer/ Wound - See nursing documentation, callus surrounding the wound edges with slough present, slight erythema present as well and undermining at 12 and 1:00 by 0.5 cm Wound Measurements and Assessment WC - Nurse 1 - General Ulcer Measurement Start: 06/24/19 09:11 Freq: Status: Active Protocol: Activity Type Activity Date Activity User E-Sign Co-Sign Detail Recorded Client Recorded Date Recorded By Document 07/09/19 07:32 [email or web address] [id number] 07/09/19 07:38 [facility] 07/09/19 07:32 Wound Center Nurse 1 [Ulcer Assessment] #4 R Plantar Foot -Combined with other wound No -Current Size (cm) - Length 0.8 -Current Size (cm) - Width 2 -Current Size (cm) - Depth 0.2 -Total Square Cm 1.6 -Photo Taken No -Epithelialization None Present -Tunneling No -Undermining/Tunneling Yes -Undermining/Tunneling Starts (O' 1 clock) -Undermining/Tunneling Ends (O'clock) 3 -Maximum Distance (cm) 0.4 -Circular Undermining No -Exudate Amt Small -Exudate Type Purulent -Wound Margin Distinct, Outline Attached -Granulation Amt Small (1-33%) -Granulation Quality Red -Slough/Fibrin Yes -Necrosis Amt Medium (34-66%) -Necrotic Tissue Type Adherent Slough -Texture (Yu-wound Skin Appearance) Assessed, Scarring -Moisture (Yu-wound Skin Appearance Assessed, ) Maceration -Color (Yu-wound Skin Appearance) Assessed,Palor -Temperature (Yu-wound Skin No Abnormality Appearance) (Pt Warm) -Tenderness on Palpation (Yu-wound No Skin Appearance) -Ulcer Cleansing Rinsed/ Irrigated with Saline -Foul Odor after Cleansing No -Anesthetic Used 5% Lidocaine Gel WC - Nurse 2 - General Ulcer CM Notes Start: 06/24/19 09:11 Freq: Status: Active Protocol: Activity Type Activity Date Activity User E-Sign Co-Sign Detail Recorded Client Recorded Date Recorded By Document 07/09/19 07:58 [id number] 07/09/19 08:03 MW 07/09/19 07:58 Wound Center Nurse 2 [Procedure/Treatment] -Time 07:58 -Correct Patient Yes -Correct Side, Site, Position Yes -Correct Procedure Yes -Procedure Performed Yes -Type of Procedure Debridement -Clinical Debridement Subcutaneous -Post Debridement Size (cm) - Length 2.4 -Post Debridement Size (cm) - Width 2.0 -Post Debridement Size (cm) - Depth 0.5 -Total Square Cm 4.80 -Wound/Ulcer Outcome Not Healed -Ulcer Cleansing Rinsed/ Irrigated with Saline -Foul Odor after Cleansing No -Bioengineered Tissue No -Bleeding Controlled with Pressure -Offloading No -Treatment Response Procedure Tolerated Well [See Physician Procedure note for Specifics] Neurological: Neuro grossly intact Psych/Mental Status: Normal Affect, Appropriate, Alert and oriented to time, place, person, mood and affect Debridement Note Post-Debridement Measurements/Treatment WC - Nurse 2 - General Ulcer CM Notes Start: 06/24/19 09:11 Freq: Status: Active Protocol: Activity Type Activity Date Activity User E-Sign Co-Sign Detail Recorded Client Recorded Date Recorded By Document 06/24/19 10:01 DV [id number] 06/24/19 10:16 DV Document 07/01/19 09:03 DV [id number] 07/01/19 09:14 DV Document 07/09/19 07:58 MW [id number] 07/09/19 08:03 MW 06/24/19 07/01/19 07/09/19 10:01 09:03 07:58 Wound Center Nurse 2 #5 Right Rose -Time 10:04 09:06 -Correct Patient Yes Yes -Correct Side, Site, Position Yes Yes -Correct Procedure Yes No -Procedure Performed Yes No -Type of Procedure Debridement -Clinical Debridement Subcutaneous -Post Debridement Size (cm) - Length 0.6 0 -Post Debridement Size (cm) - Width 0.3 0 -Post Debridement Size (cm) - Depth 0.1 0 -Total Square Cm 0.18 0 -Wound/Ulcer Outcome Not Healed Healed- Epithelialized -Ulcer Cleansing Rinsed/ Irrigated with Saline -Foul Odor after Cleansing Yes -Bleeding Controlled with Pressure Pressure -Treatment Response Procedure Tolerated Well #4 R Plantar Foot -Time 10:04 09:06 07:58 -Correct Patient Yes Yes Yes -Correct Side, Site, Position Yes Yes Yes -Correct Procedure Yes Yes Yes -Procedure Performed Yes Yes Yes -Type of Procedure Debridement Debridement Debridement -Clinical Debridement Subcutaneous Subcutaneous Subcutaneous -Post Debridement Size (cm) - Length 0.7 2.3 2.4 -Post Debridement Size (cm) - Width 3.0 3.0 2.0 -Post Debridement Size (cm) - Depth 0.5 0.3 0.5 -Total Square Cm 2.10 6.90 4.80 -Wound/Ulcer Outcome Not Healed Not Healed Not Healed -Ulcer Cleansing Rinsed/ Rinsed/ Rinsed/ Irrigated with Irrigated with Irrigated with Saline Saline Saline -Foul Odor after Cleansing No No -Bioengineered Tissue No No -Bleeding Controlled with Pressure Pressure Pressure -Offloading Yes No No -Type of Offloading Surgical Shoe Surgical Shoe -Treatment Response Procedure Procedure Procedure Tolerated Well Tolerated Well Tolerated Well Pain Scale: 0-10 Numeric Is Patient Pain Free? Yes Yes Wound debrided: Right plantar diabetic foot ulcer Laterality: Right Type of Debridement: Excisional debridement Anesthesia Used: 5% Lidocaine Gel Depth: in the subcutaneous layer Percentage of wound debrided: 100 Instrument Used: 5mm curette Tissue Removed: Slough and devitalized tissue Severity: Fat Layer Exposed Amount of bleeding with debridement: Mild Bleeding Controlled with: Pressure Patient tolerated procedure well Assessment/Plan Active Problems (Last Reviewed 06/13/19 @ 20:50 by Anthony Larson MD) Ulcer of right lower extremity with fat layer exposed (Chronic) Assessment: Ulcer right sub-fifth met head. Ulcer right leg. DM Plan: Courtesy visit for Dr. Meredith -patient was examined and evaluated again today for ulcers to right plantar foot. Ulcer to rose appears healed today. Ulcer to right plantar foot appears to be larger in depth compared to prior. Another subcutaneous excisional debridement was performed as noted in the clinical panel to the ulcer site. Cultures were then taken today of ulcer site and sent for aerobic, anaerobic evaluation. Patient tolerating well his course of doxycycline. The ulcer site was carefully cleansed and then dressed with Jessica was to the sub-fifth met ulcer site followed by dry sterile dressing. The importance of continued offloading was discussed at great length again today. 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 I did stressed the importance of the patient being off of work and being off his foot as much as possible. I discussed possibility of knee roller, which he is now willing to trial and a prescription was given to the patient. I again stressed the importance of taking some time off of work to completely rest and relax the foot. I continue to recommended nutritional supplementation with a high-protein diet in order to optimize wound healing potential for this patient. Importance of tight glycemic control was stressed to the patient today. Smoking cessation was discussed with this patient today. Patient was educated on all signs and symptoms of local and systemic infection, and he was instructed to go to the emergency room immediately should he notice any. All other questions were answered to the patient's satisfaction. Patient will follow-up in clinic in 1 week to check on progress, or sooner if needed. Code Visit [id number]: [id number] Kae subq tissue 20 sq cm/<
== END 2019-07-13 23:59 ==
LOC: WC 08:00
PROVIDERS: Family Provider Internal Medicine; PCP Internal Medicine; Visit Provider Podiatrist
DX: E10.621 Type 1 diabetes mellitus with foot ulcer (principal); L97.812 Non-pressure chronic ulcer of other part of right lower leg with fat layer exposed; L97.512 Non-pressure chronic ulcer of other part of right foot with fat layer exposed; E10.622 Type 1 diabetes mellitus with other skin ulcer; R60.0 Localized edema; E10.65 Type 1 diabetes mellitus with hyperglycemia; E10.40 Type 1 diabetes mellitus with diabetic neuropathy, unspecified
CPT/HCPCS: 11042; 87070; 87075; 87076; 87077; 87186; 87205; 87640

== ENCOUNTER 2019-07-22 10:47 | Inpatient (IN) | payer MEDICAID, SELFPAY ==
[2019-07-22] VITALS (7 sets, daily range): BP systolic 104–135; BP diastolic 34–84; PULSE 78–119; RESP 16–18; TEMP 36.7–37; O2SAT 97–100; BMI 26.5; BMI 27.1; BMI 27.2
--- NOTE | 2019-07-22 11:28 | ED.VIS.GEN ---
History of Present Illness Chief Complaint: Wound Check Informant: Patient Onset: Weeks Context: Gradual Onset Timing: Continuous Narrative: Patient is a 34-year-old male with history of insulin-dependent diabetes mellitus as well as a chronic wound on his right foot presenting from wound care for concern of osteomyelitis. Patient has had a wound on his foot that has been wound care for since April. 1 week ago patient had what looked like cellulitis and was started on linezolid per wound care. He went back today and the cellulitis had improved however patient had purulent drainage per podiatry. The wound seem deeper and podiatry was afraid that they were able to probe down to the bone. They are concerned about osteomyelitis. He was sent to the emergency room for evaluation of this and possible admission for debridement. Patient was seen by Dr. Meredith. Patient states he has been feeling well. He states he does feel anxious about the possibly having to be admitted and surgery. 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 He denies any other complaints at this time. Past Medical History - Allergies and Home Meds Allergies/Adverse Reactions: Allergies cefprozil [From Cefzil] Allergy (Unknown, Verified 07/22/19 10:49) Unknown industrial glue Allergy (Unknown, Uncoded 07/22/19 10:49) Unknown Primary Care Physician: Magdiel Hurst MD [Primary Care Provider] - Past Medical History: - - Diabetes mellitus, type I, peripheral neuropathy Surgical History: no surgical history Lives: Spouse/ Significant Other Smoking Status: Current every day smoker Review of Systems General: Denies: Chills, Fever, Sweats Eyes: Denies: Visual changes - bilaterally, Diplopia ENT: Denies: Rhinorrhea, Sore throat Cardiovascular: Denies: Chest pain, Palpitations Respiratory: Denies: Dyspnea, Cough, Dyspnea on exertion Gastrointestinal: Denies: Abdominal pain, Nausea, Vomiting, Diarrhea, Melena, Hematochezia Genitourinary: Denies: Dysuria, Hematuria, Frequency Musculoskeletal: Denies: Back pain, Extremity Pain Skin: Reports: Wounds - Right foot. Denies: Rash Neurological: Denies: Headache, Weakness, Numbness Physical Exam Vital Signs/Narrative: Vital Signs Temp Pulse Resp BP Pulse Ox 07/22/19 11:23 98.3 F 119 H 18 135/34 H 100 07/22/19 10:47 98.3 F 119 H 18 135/34 H 100 Inital Vital Signs reviewed: Yes General: Well nourished, Well developed, No Acute Distress Head: Normocephalic, Atraumatic Eyes: Perrl, EOMI ENT: Moist mucous membranes, No rhinorrhea Neck: Supple, Nontender Cardiovascular: Regular rate, Regular rhythm, No murmurs Respiratory: No distress, CTA bilaterally, Chest nontender Abdomen: Soft, Nontender, Nondistended, Normal bowel sounds Back: Nontender, Normal Inspection Extremities: Nontender, No edema Skin: Normal color, No rash, - - Centimeter by 2 cm ulcerated, full-thickness wound of the distal/lateral right foot at the level of the MTP joint. No significant surrounding erythema or drainage at this time. Neurological: Alert, Oriented x3, Cranial nerves II-XII grossly intact, Normal Strength, Normal Sensation Psychological: Normal affect, Normal Mood, Tearful Diagnostic/Tx/Re-eval Clinical Impression(s) from Imaging Studies Foot X-Ray 07/22/19 11:55 IMPRESSION: Right foot ulcer with associated osteolysis/bone destruction as above, consistent with osteomyelitis. Electronically Signed: Alexis Caldwell, at 12:33 EST Tel , Service support , Laboratory Data 07/22/19 07/22/19 11:40 11:40 WBC 12.7 H RBC 5.16 Hgb 15.1 Hct 45.2 MCV 87.6 MCH 29.3 MCHC 33.4 RDW Std Deviation 37.3 RDW Coeff of Sharon 11.5 L Plt Count 423 MPV 9.0 Immature Gran % (Auto) 1.700 H Neut % (Auto) 72.1 H Lymph % (Auto) 15.5 L [place] % (Auto) 8.4 Eos % (Auto) 1.6 Baso % (Auto) 0.7 Absolute Neuts (auto) 9.1 H Absolute Lymphs (auto) 1.96 Nucleated RBC % 0 ESR 21 H Sodium 133 L Potassium 4.5 Chloride 99 Carbon Dioxide 31.0 Anion Gap 3 L BUN 17 Creatinine 1.13 Estim Creat Clear Calc 98.10 Est GFR (MDRD) Af Amer 95 Est GFR (MDRD) Non-Af 79 BUN/Creatinine Ratio 15.0 Glucose 279 H Calcium 9.8 C-React Prot Ext Range 14.90 H - Medical Decision Making Patient is evaluated for chronic foot wound. Podiatry at wound care was concern for osteomyelitis. He is initially tachycardic but patient states is because he is upset about the situation. He is acting appropriate however. X-ray is concerning for osteomyelitis. Patient has a mildly elevated leukocytosis as well as ESR and CRP. His glucose is mildly elevated however he does not meet criteria for DKA. He has a normal anion gap. Patient is not having any systemic symptoms. Patient be admitted to medicine with consult to podiatry. He started on vancomycin and Zosyn in the emergency room. He is agreeable with this plan. He is stable at time of disposition. Case discussed with Dr. Casey. ED Disposition - Plan for ED Patient: Disposition: Acute Care Hospital [facility] Diagnosis: Osteomyelitis of foot, right, acute Referrals: Magdiel Hurst MD [Primary Care Provider] -
[2019-07-22] MEDS: 0.9% Normal Saline 1,000 ML 1000 ML IV (11:51)
--- NOTE | 2019-07-22 11:55 | RAD_ITS ---
STUDY: X-RAY - RIGHT FOOT CLINICAL: Male, 34 years old. DIABETIC ULCER ON RIGHT FOOT X OVER A YEAR TECHNIQUE: 3 view(s) of the foot. COMPARISON: 04/06/2019. FINDINGS: Soft tissue defect at the right lateral foot is associated with osseous destruction of the fifth metatarsal head and base of the fifth proximal phalanx. A significant osteolysis is also noted at the fourth metatarsal head. The remainder of the visualized osseous structures appear intact. RAD/Foot min 3 Views IMPRESSION: Right foot ulcer with associated osteolysis/bone destruction as above, consistent with osteomyelitis. Electronically Signed: Alexis Caldwell, at 12:33 EST Tel , Service support ,
[2019-07-22 12:06] LABS: Erythrocyte Sedimentation Rate 21 mm/hr (0-15)
[2019-07-22 12:12] LABS: Absolute Lymphocyte Count 1.96 X10^3/uL (0.83-4.51); Absolute Neutrophil Count 9.1 X10^3/uL (2.0-7.7); Anion Gap 3 (5-15); BUN 17 mg/dL (7-18); Basophil# 0.09 X10^3/uL; Basophil% 0.7 % (0-1); Calcium,Total 9.8 mg/dL (8.5-10.1); Chloride 99 mmol/L (98-107); Creatinine, Serum 1.13 mg/dL (0.70-1.30); EST Glomerular Filtration Rate 79 mL/min (>60); Eosinophils% 1.6 % (0-5); Est Glom Filt Rate - Afr Amer 95 mL/min (>60); Glucose 279 mg/dL (74-106); Hematocrit 45.2 % (40-54); Hemoglobin 15.1 g/dL (13.0-16.5); Lymphocyte # 1.96 X10^3/ul (4.0); Lymphocyte % 15.5 % (19-41); Mean Corp Hgb Conc 33.4 g/dL (32-36); Mean Corpuscular Hgb 29.3 pg (27.0-32.0); Mean Corpuscular Volume 87.6 fL (80-94); Monocyte# 1.07 X10^3/uL; Monocyte% 8.4 % (0-10); NRBC Flagged by Analyzer 0 % (0-5); Neutrophil # 9.14 X10^3/uL (2.7-7.7); Neutrophil % 72.1 % (47-70); Platelet Count 423 K/mm3 (150-450); Potassium 4.5 mmol/L (3.5-5.1); RBC Distribution Width CV 11.5 % (11.6-14.6); RBC Distribution Width SD 37.3 fl (35.1-43.9); Red Blood Count 5.16 M/mm3 (4.6-6.2); Sodium Level 133 mmol/L (136-145); White Blood Count 12.7 K/mm3 (4.4-11.0)
--- NOTE | 2019-07-22 13:40 | HP.PCM_ITS ---
History of Present Illness Date of Admission: 07/22/19 Chief Complaint: right foot wound with probe to bone. The patient is a 34 year old M who is been treated for chronic infection involving his right lateral foot for about the past year. Patient states that it has been off and on. Patient was recently diagnosed with cellulitis of his foot and was started on Liza nasal lid. Patient had swelling as well as redness. Those improved. Patient follow-up with wound care today and saw Dr. Meredith who probed his wound and probed to the bone. He was directed to the emergency room. In emergency room, patient had an x-ray that showed obvious osteomyelitis involving the fifth MTP. Patient will be receiving Pi pracil/tazobactam and vancomycin. Patient being admitted for osteomyelitis treatment and evaluation by podiatry for surgical recommendations. Currently, the patient is obviously very upset and understands that he is going to have surgery. [] 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) Ulcer of right lower extremity with fat layer exposed (Chronic) Diabetes mellitus type 1 (Chronic) Diabetes mellitus type 2, uncontrolled, with complications (Chronic) Medical History: Medical History (Last Updated 07/22/19 @ 13:43 by Khadar Casey DO) Diabetic neuropathy E11.40 Type 1 diabetes mellitus E10.9 Dx : age 19 Last exacerbation : DKA : on dx Hypoglycemic episode : never ER visit : on dx Allergies cefprozil [From Cefzil] Allergy (Unknown, Verified 07/22/19 10:49) Unknown industrial glue Allergy (Unknown, Uncoded 07/22/19 10:49) Unknown Home Medications: Ambulatory Orders Medication Instructions Recorded Insulin Aspart [Novolog Flexpen] See Protocol SQ ACHS 04/06/19 Insulin Glargine,Hum.rec.anlog 45 unit SQ QHS 04/06/19 [Basaglar Kwikpen U-100] Surgical History: no surgical history Lives: Spouse/ Significant Other Smoking Status: Heavy Smoker (>10/day) Tobacco Use: Cigarettes Alcohol: None Drugs: None - *Family History Maternal Family History: Family History (Last Reviewed 07/22/19 @ 13:43 by Khadar Casey DO) Father Heart disease Mother Diabetes Review of Systems Constitutional: Denies: Anorexia, Chills, Fever Eyes: Denies: Blurred vision, Double vision HEENT: Denies: Head Aches, Sinus Congestion, Sinus Drainage Cardiovascular: Denies: Chest Pain, Palpitations Respiratory: Denies: Cough, Shortness of breath at rest, Sputum production Gastrointestinal: Denies: Abdominal Pain, Nausea, Vomiting Genitourinary: Denies: Dysuria Musculoskeletal: Denies: Joint Pain, Joint Tenderness Skin: Reports: Wounds - right lateral foot for the past year. recently with distal swelling and erythema, but that is improving. Neurological: Denies: Numbness, Tingling, Focal weakness Psychiatric: Denies: Anxiety, Depression Endocrine: Denies: Change in Body Habitus, Heat/ Cold Intolerance Hematologic/ Lymphatic: Denies: Easy Bruising, Easy Bleeding, Hx of blood clot Comment: Review systems otherwise negative except for as mentioned above and in HPI. VTE Information - Inpt Only VTE Present on Admission: No VTE Mechan Device Prophylaxis: None VTE Pharm Prophylaxis ordered?: Yes Patient Problems: Active and Suspected Problems (Last Reviewed 06/13/19 @ 20:50 by Anthony Larson MD) Osteomyelitis of foot, right, acute (Acute) - Physical Exam Vitals/I&O's: Vital Signs Temp Pulse Resp BP Pulse Ox 37.0 C 78 16 132/84 H 97 07/22/19 12:19 07/22/19 13:30 07/22/19 13:30 07/22/19 13:30 07/22/19 13:30 Oxygen Delivery Method Room Air Weight: 88.2 kg Body Mass Index (BMI) 27.1 Finger Stick Blood Glucose 133 Intake and Output for Last 24 Hours 07/20/19 07/21/19 07/22/19 23:59 23:59 23:59 Intake Total 1000 / 1000 Balance 1000 / 1000 General: Alert, Cooperative, No apparent distress HEENT: Atraumatic, Normocephalic, - - no icterus. +glasses. Oral: Moist Mucosa, No Gingival or Mucosal Lesions/ Ulcerations Neck: No Nodes, Trachea Midline Lungs: Clear to auscultation, Normal air movement, No rhonchi, No wheeze, No rales Cardiovascular: Regular rate, Regular Rhythm, Normal S1, Normal S2, No murmurs Abdomen: Bowel Sounds Present, Soft, Non Tender, Non-Distended Extremities: No edema, No Calf Tenderness Skin: - - approximately 2cm wide ulcer on right lateral foot by the 5thMTP Musculoskeletal: No Tenderness to Palpation of Joints or Extremities, No Muscle Wasting Neurological: - - moves all extremities spontaneously. Psych/Mental Status: Appropriate, Agitated, Anxious Laboratory Results 07/22/19 11:40: WBC 12.7 H, RBC 5.16, Hgb 15.1, Hct 45.2, MCV 87.6, MCH 29.3, MCHC 33.4, RDW Std Deviation 37.3, RDW Coeff of Sharon 11.5 L, Plt Count 423, MPV 9.0, Immature Gran % (Auto) 1.700 H, Neut % (Auto) 72.1 H, Lymph % (Auto) 15.5 L , [place] % (Auto) 8.4, Eos % (Auto) 1.6, Baso % (Auto) 0.7, Absolute Neuts (auto) 9.1 H, Absolute Lymphs (auto) 1.96, Nucleated RBC % 0, ESR 21 H 07/22/19 11:40: Sodium 133 L, Potassium 4.5, Chloride 99, Carbon Dioxide 31.0, Anion Gap 3 L, BUN 17, Creatinine 1.13, Estim Creat Clear Calc 98.10, Est GFR (MDRD) Af Amer 95, Est GFR (MDRD) Non-Af 79, BUN/Creatinine Ratio 15.0, Glucose 279 H, Calcium 9.8, C-React Prot Ext Range 14.90 H Foot x-ray reviewed and shows destruction of the distal fifth metatarsal. Looking back in March of last year, patient had a normal x-ray at that time. Current Medications Vancomycin IV Pharmacy to Dose (1 ea/ Sodium Chloride) 500 mls @ 250 mls/hr IV X1 PRN; Protocol Piperacillin Sod/Tazobactam (Sod 3.375 gm/ Sodium Chloride) 50 mls @ 100 mls/hr IV X1 ONE Stop: 07/22/19 13:51 Vancomycin HCl 1,500 mg/ (Sodium Chloride) 530 mls @ 250 mls/hr IV X1 ONE Stop: 07/22/19 15:37 Assessment/Plan All Active Problems (Last Reviewed 06/13/19 @ 20:50 by Anthony Larson MD) Pain in right foot (Acute) Sepsis (Acute) Cellulitis of leg (Resolved) History of diabetic neuropathy (Acute) DKA (diabetic ketoacidoses) (Acute) Aerophagia (Acute) Osteomyelitis of foot, right, acute (Acute) 1. Right foot osteomyelitis * Involving the right fifth metatarsal. Discussed with Dr. Meredith, his wound care doctor, he stated that patient was not able to stay off of his foot which may have led to poor healing of the wound that may subsequently led to the osteomyelitis. I discussed with the patient that he would require some level surgery, the extent is unclear to me at this time and will need to be determined by the historiographer. Dr. Meredith did recommend getting an MRI because he did say that he expressed quite a bit of pus out of his foot and he would be concerned about an underlying abscess. * So we will check cultures * Broad-spectrum antibiotics with Pipracil and/tazobactam and vancomycin * Heel weightbearing only on the right lower extremity for now. * Wound care 2. Diabetes mellitus type 1 * Patient is elevated this time but unclear if this is chronic or acute due to the distress of find out about the osteomyelitis * Will monitor for now. Continue with his basal insulin and put him on high- dose sliding scale insulin for now * A1c back in April 07 was 8.1. Will recheck. 3. VTE prophylaxis: Moderate risk. Patient will be on enoxaparin. Code Visit Inpatient E&M: [id number] Init Hosp L3
--- NOTE | 2019-07-22 14:25 | MRI_ITS ---
STUDY: MRI RIGHT FOREFOOT WITHOUT CONTRAST REASON FOR EXAM: Male, 34 years old. Wound. Osteomyelitis right 5th mt TECHNIQUE: Standardized fat and water weighted pulse sequences were obtained in all 3 orthogonal planes. COMPARISON: July 22, 2019 x-ray FINDINGS: Normal metatarsophalangeal joint of the hallux. Normal tibial and fibular sesamoids, with normal sesamoids-first metatarsal articulations. Normal interphalangeal joint of the hallux. Normal proximal and distal phalanges of the great toe. Normal medial and lateral heads of the flexor hallucis brevis tendons. Normal flexor and extensor hallucis longus tendons. Normal second through fourth metatarsophalangeal (MTP) joints. Normal interphalangeal joints of the second through fourth toes. Normal proximal, middle and distal phalanges of the second through fourth toes. There is marrow edema of the fifth metatarsal and proximal phalanx, series 8 images 10/06 through 02/05. There is indistinctness of the cortex with erosive change of the fifth metatarsal head and base of the fifth proximal phalanx. Mild marrow edema of the fourth metatarsal head and proximal phalanx, series 8 image 03/08. Normal first through fourth intermetatarsal spaces. Normal flexor and extensor tendons of the second through fifth toes. Normal intrinsic muscles of the forefoot. There is soft tissue swelling. There is focal defect in the lateral aspect consistent with a wound. There are 1.4 and 1.1 cm fluid signal intensity collections in the subcutaneous tissues on the plantar and dorsal aspect suggesting abscess formation, series 5 image . MRI/Lower Ext/No Jt/w/o IMPRESSION: Osteomyelitis of the fifth metatarsal and proximal phalanx more than the fourth metatarsal head and proximal phalanx. Soft tissue ulcer with subcutaneous fluid collection suggesting abscess formation. Electronically Signed: Price Sargent MD at 16:45 EST , Service support ,
--- NOTE | 2019-07-22 14:25 | ART_ITS ---
Reason For Study: Right foot osteomyelitis Procedure A bilateral lower extremity continuous wave Doppler with analog waveform analysis and ankle brachial indexes. Left Segmental Pressures Left brachial= 132mmHg. Left posterior tibial artery = 127mmHg. Left dorsalis pedis artery = 139mmHg. Left digit = 118 mmHg. The left dorsalis pedis waveforms are triphasic. The left posterior tibial artery waveforms are triphasic. Right Segmental Pressures Right brachial= 137mmHg. Right posterior tibial artery = 147mmHg. Right dorsalis pedis artery = 137mmHg. Right digit = 96 mmHg. The right dorsalis pedis waveforms are triphasic. The right posterior tibial artery waveforms are triphasic. Indices The right ankle brachial index by the dorsalis pedis is 1.00. The right ankle brachial index by the posterior tibial artery is 1.07. The right digital-brachial index is 0.70. The left ankle brachial index by the dorsalis pedis is 1.01. The left ankle brachial index by the posterior tibial artery is 0.93. The left digital-brachial index is 0.86. Interpretation Summary Normal bilateral lower extremity resting ankle brachial indices except for left PT at 0.93 consistent with mild occlusive disease. Ordering Physician: Khadar Casey Referring Physician: Magdiel Hurst M.D. Performed By: Josephine Tineo RVT
--- NOTE | 2019-07-22 14:54 | NURSING ---
wound photo: right lateral foot
[2019-07-22 15:06] LABS: Hemoglobin A1c 8.8 % (4.2-6.3)
--- NOTE | 2019-07-22 15:27 | NURSING ---
Off unit to MRI.
[2019-07-22 16:06] LABS: M R Staph aureus DNA By PCR Negative (Negative); Probe Check PASS; Specimen Processing Control PASS; Staph aureus DNA By PCR NEGATIVE (Negative)
--- NOTE | 2019-07-22 16:29 | NURSING ---
Pt returned from MRI.
[2019-07-22] MEDS: Insulin Lispro 100 UNIT/ML INSULN.PEN SC (16:44)
[2019-07-22 16:46] LABS: Bedside Glucose 307 mg/dL (70-110)
--- NOTE | 2019-07-22 17:10 | PCM.RX.CS ---
Consult Pharmacy has been consulted to manage selected antiobiotic: Vancomycin Type of Consult: New start Suspected Infection: Osteomyelitis Prior Doses of Antibiotics Received/Current Regimen: Received 1500mg iv x 1 07.22.19 @3733. Labs: Sodium 133 mmol/L (136-145) L 07/22/19 11:40 Potassium 4.5 mmol/L (3.5-5.1) 07/22/19 11:40 Chloride 99 mmol/L (98-107) 07/22/19 11:40 Carbon Dioxide 31.0 mmol/L (21.0-32.0) 07/22/19 11:40 Anion Gap 3 (5-15) L 07/22/19 11:40 BUN 17 mg/dL (7-18) 07/22/19 11:40 Creatinine 1.13 mg/dL (0.70-1.30) 07/22/19 11:40 Est GFR (MDRD) Af Amer 95 mL/min (>60) 07/22/19 11:40 Est GFR (MDRD) Non-Af 79 mL/min (>60) 07/22/19 11:40 BUN/Creatinine Ratio 15.0 RATIO (10-20) 07/22/19 11:40 Glucose 279 mg/dL (74-106) H 07/22/19 11:40 Weight used for dosin.5 kg Estimated Creatinine Clearance: ~98ml/min Goal Trough: 15-20 mcg/mL Pharmacy Plan for Drug Dosing: Will begin 1750mg iv q12h. Trough level ordered for 07.24.19. Pharmacy Service will continue to monitor and adjust dosing as required. Follow-Up Labs: Trough Vancomycin - 07.24.19 @0335
--- NOTE | 2019-07-22 17:57 | PCM.CONS.GEN ---
Reason for Consult Date of Consultation: 07/22/19 Reason for Consultation: Right foot infection History of Present Illness: The patient is a 34 year old male with chronic ulcer right foot - has been present for >1 year, now worse and infected. Patient was at wound center today and sent to ER due to infection. Xrays show bone destruction to the 5th met head, and MRI shows osteomyelitis to the 4th and 5th metatarsals and toes. WBC is elevated. He relates to previous infections to the foot. 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 He relates he has been trying to get a knee walker for 2 weeks now. He relates he has had diabetes for ~15 years, and for the most part has been poorly / un controlled. He is a smoker as well, but relates he is going to have to quit. He has been started on IV antibiotics. He has no other complaints. Past Medical History Past Medical History (Chronic Problems): Chronic Problems (Last Updated 07/22/19 @ 13:43 by Khadar Casey DO) Diabetes mellitus type 2, uncontrolled, with complications (Chronic) Ulcer of right foot with fat layer exposed (Chronic) Diabetes mellitus type 1 (Chronic) Delayed wound healing (Chronic) Chronic ulcer of left foot with fat layer exposed (Chronic) Ulcer of right lower extremity with fat layer exposed (Chronic) Medical History: Medical History (Last Updated 07/22/19 @ 13:43 by Khadar Casey DO) Diabetic neuropathy E11.40 Type 1 diabetes mellitus E10.9 Dx : age 19 Last exacerbation : DKA : on dx Hypoglycemic episode : never ER visit : on dx Allergies cefprozil [From Cefzil] Allergy (Unknown, Verified 07/22/19 10:49) Unknown industrial glue Allergy (Unknown, Uncoded 07/22/19 10:49) Unknown Home Medications: Ambulatory Orders Medication Instructions Recorded Insulin Aspart [Novolog Flexpen] See Protocol SQ ACHS 04/06/19 Insulin Glargine,Hum.rec.anlog 45 unit SQ QHS 04/06/19 [Basaglar Kwikpen U-100] Duloxetine Hcl [Cymbalta] 30 mg PO DAILY 07/22/19 Linezolid [Zyvox] 600 mg PO BID 07/22/19 Surgical History: no surgical history Lives: Spouse/ Significant Other Smoking Status: Heavy Smoker (>10/day) Tobacco Use: Cigarettes Alcohol: None Drugs: None - *Family History Maternal Family History: Family History (Last Reviewed 07/22/19 @ 13:43 by Khadar Casey DO) Father Heart disease Mother Diabetes Review of Systems Constitutional: Denies: Chills, Fever Gastrointestinal: Denies: Nausea, Vomiting Patient Problems: Active and Suspected Problems (Last Updated 07/22/19 @ 13:43 by Khadar Casey DO) Osteomyelitis of foot, right, acute (Acute) - Physical Exam Vitals/I&O's: Vital Signs Temp Pulse Resp BP Pulse Ox 98.2 F 87 18 104/63 98 07/22/19 15:00 07/22/19 15:00 07/22/19 15:00 07/22/19 15:00 07/22/19 15:00 Oxygen Delivery Method Room Air Weight: 88.451 kg Body Mass Index (BMI) 27.1 Finger Stick Blood Glucose 133 Intake and Output for Last 24 Hours 07/20/19 07/21/19 07/22/19 23:59 23:59 23:59 Intake Total 1150 / 1150 Balance 1150 / 1150 General: Alert, Oriented x3, Cooperative, No apparent distress Extremities: Capillary Refill Less than 3 Seconds, - - Right foot xray with bone destruction to the 5th metatarsal head. MRI right foot shows findings c/w osteomyelitis to the 4th and 5th toes and metatarsals. Psych/Mental Status: Normal Affect, Appropriate, Alert and oriented to time, place, person, mood and affect Laboratory Results 07/22/19 11:40: WBC 12.7 H, RBC 5.16, Hgb 15.1, Hct 45.2, MCV 87.6, MCH 29.3, MCHC 33.4, RDW Std Deviation 37.3, RDW Coeff of Sharon 11.5 L, Plt Count 423, MPV 9.0, Immature Gran % (Auto) 1.700 H, Neut % (Auto) 72.1 H, Lymph % (Auto) 15.5 L, [place] % (Auto) 8.4, Eos % (Auto) 1.6, Baso % (Auto) 0.7, Absolute Neuts (auto) 9.1 H, Absolute Lymphs (auto) 1.96, Nucleated RBC % 0, ESR 21 H 07/22/19 11:40: Sodium 133 L, Potassium 4.5, Chloride 99, Carbon Dioxide 31.0, Anion Gap 3 L, BUN 17, Creatinine 1.13, Estim Creat Clear Calc 98.10, Est GFR (MDRD) Af Amer 95, Est GFR (MDRD) Non-Af 79, BUN/Creatinine Ratio 15.0, Glucose 279 H, Calcium 9.8, C-React Prot Ext Range 14.90 H 07/22/19 11:40: Hemoglobin A1c 8.8 H 07/22/19 14:30: S.aureus Protein A PCR NEGATIVE, MRSA (PCR) Negative 07/22/19 16:26: POC Glucose 307 H Current Medications Acetaminophen (Tylenol) 650 mg PO Q6H PRN PRN PRN Reason: Pain Score 1-3/Temp > 100.7 F Enoxaparin Sodium (Lovenox) 40 mg SC DAILY DEVEN Glucagon () 1 mg IM .X1 PRN PRN Reason: Hypoglycemia Vancomycin IV Pharmacy to Dose (1 ea/ Sodium Chloride) 500 mls @ 250 mls/hr IV X1 PRN; Protocol PRN Reason: Rx to Dose Dextrose (Dextrose 10%-Water) 250 mls @ 999 mls/hr IV .Q16M PRN; Protocol PRN Reason: HYPOGLYCEMIA Vancomycin HCl 1,750 mg/ (Sodium Chloride) 535 mls @ 250 mls/hr IV Q12H DEVEN Insulin Glargine (Lantus ([facility])) 45 units SC QHS [facility] Insulin Human Lispro (Humalog Kwikpen ([facility])) 0 unit SC TIDAC DEVEN; Protocol Last Admin: 07/22/19 16:44 Dose: 9 u Documented by: Morphine Sulfate () 2 mg IV Q3H PRN PRN PRN Reason: breakthrough pain Ondansetron HCl (Zofran) 4 mg IV Q8H PRN PRN PRN Reason: NAUSEA/VOMITING Oxycodone HCl (Oxyir) 5 mg PO Q4H PRN PRN PRN Reason: Pain Score 4-5/10 Oxycodone HCl (Oxyir) 10 mg PO Q4H PRN PRN PRN Reason: Pain Score 6-10/10 Sodium Chloride () 10 - 40 ml IV UD PRN PRN Reason: SALINE FLUSH Assessment/Plan All Active Problems (Last Updated 07/22/19 @ 13:43 by Khadar Casey DO) Pain in right foot (Acute) Sepsis (Acute) Cellulitis of leg (Resolved) History of diabetic neuropathy (Acute) DKA (diabetic ketoacidoses) (Acute) Aerophagia (Acute) Osteomyelitis of foot, right, acute (Acute) Osteomyelitis 4th and 5th metatarsals and toes Cellulitis right foot, ulcer down to bone and joint Poorly controlled Diabetes with peripheral neuropathy Tobacco Use Reviewed diagnostic data. Discussed the options with patient. Given the findings we will plan to proceed with right foot debridement and 5th toe/ray amputation - patient agrees. We will plan to proceed with this tomorrow afternoon. Advised patient on goals, expectations and estimated healing time. Advised patient he will not be able to put weight on foot until healed. 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 All of patient's questions were answered. Reviewed noninvasive lower extremity studies - good flow to foot. Patient is on IV antibiotics at this time. Plan for surgery tomorrow as noted above.
[2019-07-22 21:30] LABS: Bedside Glucose 371 mg/dL (70-110)
[2019-07-23] VITALS (9 sets, daily range): BP systolic 91–133; BP diastolic 58–87; PULSE 78–95; RESP 16–18; TEMP 36.4–37; O2SAT 94–100
[2019-07-23 06:24] LABS: Absolute Lymphocyte Count 2.75 X10^3/uL (0.83-4.51); Absolute Neutrophil Count 6.5 X10^3/uL (2.0-7.7); Basophil# 0.09 X10^3/uL; Basophil% 0.8 % (0-1); Eosinophil# 0.24 X10^3/uL; Eosinophils% 2.2 % (0-5); Hematocrit 40.9 % (40-54); Hemoglobin 13.6 g/dL (13.0-16.5); Lymphocyte # 2.75 X10^3/ul (4.0); Lymphocyte % 25.5 % (19-41); Mean Corp Hgb Conc 33.3 g/dL (32-36); Mean Corpuscular Hgb 29.2 pg (27.0-32.0); Mean Corpuscular Volume 87.8 fL (80-94); Monocyte# 1.06 X10^3/uL; Monocyte% 9.8 % (0-10); NRBC Flagged by Analyzer 0 % (0-5); Neutrophil # 6.47 X10^3/uL (2.7-7.7); Platelet Count 362 K/mm3 (150-450); RBC Distribution Width CV 11.4 % (11.6-14.6); RBC Distribution Width SD 36.9 fl (35.1-43.9); Red Blood Count 4.66 M/mm3 (4.6-6.2); White Blood Count 10.8 K/mm3 (4.4-11.0)
[2019-07-23] MEDS: Insulin Lispro 100 UNIT/ML INSULN.PEN SC (06:48)
[2019-07-23 06:49] LABS: ALB/GLOB Ratio 0.7 RATIO (0.9-2.4); AST(SGOT) 18 U/L (15-37); Alanine Aminotransfer ALT/SGPT 40 U/L (16-61); Albumin, Serum 2.9 g/dL (3.2-5.0); Alkaline Phosphatase 124 U/L (45-117); Anion Gap 4 (5-15); BUN 17 mg/dL (7-18); BUN/Creat Ratio 15.6 RATIO (10-20); Calcium,Total 8.8 mg/dL (8.5-10.1); Chloride 102 mmol/L (98-107); Creatinine, Serum 1.09 mg/dL (0.70-1.30); EST Glomerular Filtration Rate 82 mL/min (>60); Est Glom Filt Rate - Afr Amer 99 mL/min (>60); Globulin 4.4 g/dL (2.2-4.2); Glucose 336 mg/dL (74-106); Potassium 4.2 mmol/L (3.5-5.1); Protein, Total 7.3 g/dL (6.4-8.2); Sodium Level 135 mmol/L (136-145)
[2019-07-23 06:56] LABS: Bedside Glucose 298 mg/dL (70-110)
[2019-07-23 07:08] LABS: Hemoglobin A1c 8.9 % (4.2-6.3)
--- NOTE | 2019-07-23 07:30 | BON_PTH ---
PATIENT: SARAH SHEETS LOC: MS3 U#:[id number] AGE/SX: 34/M [facility]: Dr. El Teresa MD : 1985 BED: 1 DIS: 07/26/2019 SPEC #: [id number] RECD: 07/23/19 16:24 STATUS: CHANA REDemetris #: [id number] NAYLA: 07/23/19 07:[address]: Chandra Eddy DEPT: SURGICAL PATHOLOGY RECD BY: Jonas Suarez ENTERED: 07/26/19 08:55 SP TYPE: Bone OTHR DR: DO Dr. El Rhoades MD Dr. Robert Leininger, MD Dr. Victor Velasquez, MD Tissues: A - Bone of foot, NOS B - Bone of foot, NOS Procedures: Decalcification bone/plaque Surgery Specimen Level III Surgery Specimen Level IV HEADER OPERATION: Incision, drainage and debridement of all nonviable infected PRE-OP DIAGNOSIS: Osteomyelitis of right foot TISSUE SUBMITTED: A - Right fifth metatarsal and toe, B - Right fifth metatarsal clearance fragment MICROSCOPIC DIAGNOSIS A. Right fifth metatarsal and toe, amputation: Focal ulceration, acute and chronic inflammation and granulation tissue reaction. Moderate acute osteomyelitis. See comment. B. Right fifth metatarsal clearance fragment: A piece of bone with reactive changes and chronic inflammation. Focal minimal acute inflammation. SJ:magaly 07/29/19 COMMENT Correlation with clinical findings and appropriate follow up are necessary. Case has been reviewed in consultation with Dr. Anguiano who concurs with the above diagnosis. IDC:AM MICROSCOPIC DESCRIPTION Slides are reviewed. GROSS DESCRIPTION A - Received in fixative is one container labeled with the patient's name and designated right fifth metatarsal and toe. The specimen consists of a portion of toe measuring 5 x 2 x 2 cm. The nail is present which appears unremarkable. A focal area of ulceration is noted in the proximal portion of the toe?measuring 1 cm in greatest dimension. Also present in the container is a portion of bone measuring 3?x 2 x 1.2 cm. Lab Aide sections are submitted in three cassettes as follows: 1 - ulcerated area, 2?& 3 - bone after decalcification (3 contains the metatarsal bone). B - Received in fixative is one container labeled with the patient's name and designated right fifth metatarsal clearance fragment. The specimen consists of a piece of bone measuring 1.5 x 0.7 x 0.2 cm. The entire specimen is submitted in one cassette after decalcification. / WAYLON:magaly 07/26/19 TC:2 CPT: 45785, 86575, [id number]
--- NOTE | 2019-07-23 09:02 | NURSING ---
Pt resting in bed with eyes closed. Nursing had changed the right foot dressing this am d/t drainage. dressing D&I at this time and patient is scheduled for surgery today with Dr Eddy. will leave dressing in place.
--- NOTE | 2019-07-23 11:24 | CASEMGMT ---
ANNIA WRIGHT Face to Face with patient for initial transition planning/care coordination assessment. ANNIA WRIGHT introduced self and role at [facility]. Patient lying in bed, alert and oriented. Patient willing to participate in assessment and is able to answer all questions appropriately. Care providers, pharmacy, and demographics verified. Patient wishes to discharge home, will monitor for need for HHC pending course of treatment. Patient states he has no further needs or concerns at this time. CM to follow for discharge planning needs that may arise. PCP: Aris Specialists: Erik claim technician; Surjit podiatry Preferred Pharmacy: [facility] Insurance: Active DSP Prescription Benefit: yes Living Will/HPOA: none LNOK: Living Arrangements: patient lives with in 1 story home with 3 steps and railing to enter the home. Patient is independent at home . Transportation: self, DME/HHC: Patient has crutches at home. Patient states that he has been trying to work with [employer] to get knee scooter for 2 weeks, patient also inquired regarding shower chair. ANNIA WRIGHT to continue to assist with DME needs. RN CM discussed possible need for IV ATBs at discharge and HHC pending course of treatment. Disposition Plan: Patient to discharge home with family support and follow-up plans in place. Will monitor for HHC pending course of treatment Josephine WOLFF, ANNIA, CM
--- NOTE | 2019-07-23 12:02 | NURSING ---
spoke w/ carson in Rx, she will send 1400 vanc (not here yet) directly to AC/OR area
--- NOTE | 2019-07-23 12:04 | PN_ITS ---
Patient Problems: Active and Suspected Problems (Last Updated 07/22/19 @ 13:43 by Khadar Casey DO) Osteomyelitis of foot, right, acute (Acute) Subjective: Patient seen and examined. 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 He is then will be managed for osteomyelitis due to diabetic foot ulcer. Patient has no complaints this morning. Review of systems otherwise negative. Labs and vitals reviewed. Vitals/I&O's: Vital Signs Temp Pulse Resp BP Pulse Ox 98.1 F 83 18 120/78 100 07/23/19 11:51 07/23/19 11:51 07/23/19 11:51 07/23/19 11:51 07/23/19 11:51 Oxygen Delivery Method Room Air Weight: 195 lb Body Mass Index (BMI) 27.1 Finger Stick Blood Glucose 133 Intake and Output for Last 24 Hours 07/21/19 07/22/19 07/23/19 23:59 23:59 23:59 Intake Total 1680 / 2280 1135 / 1135 Balance 1680 / 2280 1135 / 1135 General: Alert, Oriented x3, Cooperative HEENT: Atraumatic, PERRLA, EOMI, Normocephalic Oral: Moist Mucosa Neck: Supple, No JVD, Negative Carotid Bruits Lungs: Clear to auscultation, Normal air movement, No rhonchi, No wheeze Cardiovascular: Normal S1, Normal S2, No murmurs Abdomen: Bowel Sounds Present, Soft, Non Tender Extremities: No clubbing, No cyanosis, No edema, Capillary Refill Less than 3 Seconds Skin: - - right foot bandaged Musculoskeletal: No Tenderness to Palpation of Joints or Extremities Lymphatic: No Cervical, Supraclavicular, or Inguinal Adenopathy Neurological: Cranial nerves II-XII grossly intact, Neuro grossly intact, Motor Exam 5/5 strength throughout Psych/Mental Status: Normal Affect, Appropriate, Alert and oriented to time, place, person, mood and affect Laboratory Results 07/22/19 11:40: WBC 12.7 H, RBC 5.16, Hgb 15.1, Hct 45.2, MCV 87.6, MCH 29.3, MCHC 33.4, RDW Std Deviation 37.3, RDW Coeff of [place] 11.5 L, Plt Count 423, MPV 9.0, Immature Gran % (Auto) 1.700 H, Neut % (Auto) 72.1 H, Lymph % (Auto) 15.5 L , [place] % (Auto) 8.4, Eos % (Auto) 1.6, Baso % (Auto) 0.7, Absolute Neuts (auto) 9.1 H, Absolute Lymphs (auto) 1.96, Nucleated RBC % 0, ESR 21 H 07/22/19 11:40: Sodium 133 L, Potassium 4.5, Chloride 99, Carbon Dioxide 31.0, Anion Gap 3 L, BUN 17, Creatinine 1.13, Estim Creat Clear Calc 98.10, Est GFR (MDRD) Af Amer 95, Est GFR (MDRD) Non-Af 79, BUN/Creatinine Ratio 15.0, Glucose 279 H, Calcium 9.8, C-React Prot Ext Range 14.90 H 07/22/19 11:40: Hemoglobin A1c 8.8 H 07/22/19 14:30: S.aureus Protein A PCR NEGATIVE, MRSA (PCR) Negative 07/22/19 16:26: POC Glucose 307 H 07/22/19 21:19: POC Glucose 371 H 07/23/19 05:24: WBC 10.8, RBC 4.66, Hgb 13.6, Hct 40.9, MCV 87.8, MCH 29.2, MCHC 33.3, RDW Std Deviation 36.9, RDW Coeff of [place] 11.4 L, Plt Count 362, MPV 9.0, Immature Gran % (Auto) 1.700 H, Neut % (Auto) 60.0, Lymph % (Auto) 25.5, [place] % (Auto) 9.8, Eos % (Auto) 2.2, Baso % (Auto) 0.8, Absolute Neuts (auto) 6.5, Absolute Lymphs (auto) 2.75, Nucleated RBC % 0 07/23/19 05:24: Sodium 135 L, Potassium 4.2, Chloride 102, Carbon Dioxide 29.0, Anion Gap 4 L, BUN 17, Creatinine 1.09, Estim Creat Clear Calc 101.70, Est GFR (MDRD) Af Amer 99, Est GFR (MDRD) Non-Af 82, BUN/Creatinine Ratio 15.6, Glucose 336 H, Calcium 8.8, Total Bilirubin 0.20, AST 18, ALT 40, Alkaline Phosphatase 124 H, Total Protein 7.3, Albumin 2.9 L, Globulin 4.4 H, Albumin/Globulin Ratio 0.7 L 07/23/19 05:24: Hemoglobin A1c 8.9 H 07/23/19 06:46: POC Glucose 298 H Diagnostic Data Foot X-Ray 07/22/19 11:55 IMPRESSION: Right foot ulcer with associated osteolysis/bone destruction as above, consistent with osteomyelitis. Electronically Signed: Alexis Caldwell, at 12:33 EST Tel , Service support , Lower Extremity MRI 07/22/19 14:25 IMPRESSION: Osteomyelitis of the fifth metatarsal and proximal phalanx more than the fourth metatarsal head and proximal phalanx. Soft tissue ulcer with subcutaneous fluid collection suggesting abscess formation. Electronically Signed: Price Sargent MD at 16:45 EST , Service support , Current Medications Acetaminophen (Tylenol) 650 mg PO Q6H PRN PRN PRN Reason: Pain Score 1-3/Temp > 100.7 F Enoxaparin Sodium (Lovenox) 40 mg SC DAILY [facility] Last Admin: 07/23/19 07:04 Dose: Not Given Documented by: Glucagon () 1 mg IM .X1 PRN PRN Reason: Hypoglycemia Vancomycin IV Pharmacy to Dose (1 ea/ Sodium Chloride) 500 mls @ 250 mls/hr IV X1 PRN; Protocol PRN Reason: Rx to Dose Dextrose (Dextrose 10%-Water) 250 mls @ 999 mls/hr IV .Q16M PRN; Protocol PRN Reason: HYPOGLYCEMIA Vancomycin HCl 1,750 mg/ (Sodium Chloride) 535 mls @ 250 mls/hr IV Q12H [facility] Last Infusion: 07/23/19 06:15 Dose: Infused Documented by: Insulin Glargine (Lantus ([facility])) 45 units SC QHS [facility] Last Admin: 07/22/19 21:24 Dose: 45 u Documented by: Insulin Human Lispro (Humalog Kwikpen ([facility])) 0 unit SC TIDAC [facility]; Protocol Last Admin: 07/23/19 06:48 Dose: 9 u Documented by: Morphine Sulfate () 2 mg IV Q3H PRN PRN PRN Reason: breakthrough pain Ondansetron HCl (Zofran) 4 mg IV Q8H PRN PRN PRN Reason: NAUSEA/VOMITING Oxycodone HCl (Oxyir) 5 mg PO Q4H PRN PRN PRN Reason: Pain Score 4-5/10 Oxycodone HCl (Oxyir) 10 mg PO Q4H PRN PRN PRN Reason: Pain Score 6-10/10 Sodium Chloride () 10 - 40 ml IV UD PRN PRN Reason: SALINE FLUSH STROKE Vital Signs/Narrative: Vital Signs Temp Pulse Resp BP Pulse Ox 07/23/19 11:51 98.1 F 83 18 120/78 100 Medical Necessity - Tobacco Use Smoking Status: Heavy Smoker (>10/day) Tobacco Use: Cigarettes Assessment/Plan All Active Problems (Last Updated 07/22/19 @ 13:43 by Khadar Casey DO) Pain in right foot (Acute) Sepsis (Acute) Cellulitis of leg (Resolved) History of diabetic neuropathy (Acute) DKA (diabetic ketoacidoses) (Acute) Aerophagia (Acute) Osteomyelitis of foot, right, acute (Acute) 1. Right foot osteomyelitis * affects the right fifth metatarsal. * Apparently, patient has been unable to stay off his foot, which led to poor healing of diabetic foot ulcer. * MRI showed osteomyelitis of the fifth metatarsal and proximal phalanx, more than the 4th metatarsal head and proximal phalanx. soft tissue ulcer with subcutaneous fluid collection suggesting abscess formation. * podiatry on board * was started on IV vancomcyin and zosyn; IV zosyn discontinued. Now on only IV vancomycin * will consult ID, as patient will likely need usp antibiotics * arterial studies showed normal bilateral lower ABPI execpt for left posterior tibial at 0.93, consistent with mild occlusive disease * await ID rec/;s * for surgery by podiatry today * 2. Type 1 diabetes mellitus * A1C is 8.8 * on lantus 45IU qhs * ISS. Accuchecks ACHS * nutrition consult * DVT prophylaxis; lovenox Code Visit Inpatient E&M: 86433 Subs Hosp L2
[2019-07-23 12:35] LABS: Bedside Glucose 175 mg/dL (70-110)
--- NOTE | 2019-07-23 13:21 | PCM.HP.ID ---
Problem List (1) Osteomyelitis of foot, right, acute Status: Acute Reason for Consult: osteo Consulted by: Dr. Hernandes History of Present Illness: The patient is a 34 year old M with IDDM, neuropathy, follows at wound care for several months of R foot lateral ulcer. Admitted in April for cellulitis, given clinda. Outpt cxs with MSSA, GBS, enterococcus, anaerobes. Had been on doxy, then was on linezolid starting about 10 days ago. Had some chills prior to linezolid. No pain in foot. Some nausea. Had foot swelling, redness, and bloody drainage. Seen in wound center, sent to ED. Admitted on vanc and did get one dose of zosyn 07/22 without any issue. OR today. Full ROS performed and neg except as noted above. - Medical History Past Medical History (Chronic Problems): Chronic Problems (Last Updated 07/22/19 @ 13:43 by Khadar Casey DO) Diabetes mellitus type 2, uncontrolled, with complications (Chronic) Ulcer of right foot with fat layer exposed (Chronic) Diabetes mellitus type 1 (Chronic) Delayed wound healing (Chronic) Chronic ulcer of left foot with fat layer exposed (Chronic) Ulcer of right lower extremity with fat layer exposed (Chronic) Allergies/Adverse Reactions: Allergies cefprozil [From Cefzil] Allergy (Unknown, Verified 07/22/19 10:49) Unknown industrial glue Allergy (Unknown, Uncoded 07/22/19 10:49) Unknown Home Medications: Ambulatory Orders Medication Instructions Recorded Insulin Aspart [Novolog Flexpen] See Protocol SQ ACHS 04/06/19 Insulin Glargine,Hum.rec.anlog 45 unit SQ Q 04/06/19 [Basaglar Kwikpen U-100] Duloxetine Hcl [Cymbalta] 30 mg PO DAILY 07/22/19 Linezolid [Zyvox] 600 mg PO BID 07/22/19 - Social History Tobacco Use: cigarettes Vital Signs Temp Pulse Resp BP Pulse Ox 98.1 F 83 18 120/78 100 07/23/19 11:51 07/23/19 11:51 07/23/19 11:51 07/23/19 11:51 07/23/19 11:51 Oxygen Delivery Method Room Air Weight: 88.451 kg Body Mass Index (BMI) 27.1 Finger Stick Blood Glucose 133 Microbiology Past 72 Hours 07/22/19 14:30 Gram Stain - Final Wound - No Site/Description Given Laboratory Tests Past 24 Hrs 07/22/19 07/22/19 07/23/19 11:40 14:30 05:24 WBC 10.8 RBC 4.66 Hgb 13.6 Hct 40.9 MCV 87.8 MCH 29.2 MCHC 33.3 RDW Std Deviation 36.9 RDW Coeff of Sharon 11.4 L Plt Count 362 MPV 9.0 Immature Gran % (Auto) 1.700 H Neut % (Auto) 60.0 Lymph % (Auto) 25.5 Brooks % (Auto) 9.8 Eos % (Auto) 2.2 Baso % (Auto) 0.8 Absolute Neuts (auto) 6.5 Absolute Lymphs (auto) 2.75 Nucleated RBC % 0 Sodium Potassium Chloride Carbon Dioxide Anion Gap BUN Creatinine Estim Creat Clear Calc Est GFR (MDRD) Af Amer Est GFR (MDRD) Non-Af BUN/Creatinine Ratio Glucose Hemoglobin A1c 8.8 H Calcium Total Bilirubin AST ALT Alkaline Phosphatase Total Protein Albumin Globulin Albumin/Globulin Ratio S.aureus Protein A PCR NEGATIVE MRSA (PCR) Negative 07/23/19 07/23/19 05:24 05:24 WBC RBC Hgb Hct MCV MCH MCHC RDW Std Deviation RDW Coeff of Sharon Plt Count MPV Immature Gran % (Auto) Neut % (Auto) Lymph % (Auto) Brooks % (Auto) Eos % (Auto) Baso % (Auto) Absolute Neuts (auto) Absolute Lymphs (auto) Nucleated RBC % Sodium 135 L Potassium 4.2 Chloride 102 Carbon Dioxide 29.0 Anion Gap 4 L BUN 17 Creatinine 1.09 Estim Creat Clear Calc 101.70 Est GFR (MDRD) Af Amer 99 Est GFR (MDRD) Non-Af 82 BUN/Creatinine Ratio 15.6 Glucose 336 H Hemoglobin A1c 8.9 H Calcium 8.8 Total Bilirubin 0.20 AST 18 ALT 40 Alkaline Phosphatase 124 H Total Protein 7.3 Albumin 2.9 L Globulin 4.4 H Albumin/Globulin Ratio 0.7 L S.aureus Protein A PCR MRSA (PCR) - Other Studies Radiology: [] reviewed Other Studies: [] Route of nutrition/ use of supplements: [] Nutritional Intake: [] IV Site: [] [place] Catheter: [] - Physical Exam General: Alert, Oriented x3, Cooperative, No apparent distress HEENT: Atraumatic, PERRLA, EOMI Neck: Supple, No Nodes Lungs: Clear to auscultation, Normal air movement Cardiovascular: Regular rate, Regular Rhythm, No murmurs Abdomen: Soft, Non Tender, Non-Distended Extremities: No edema Skin: Ulcer/ Wound - reviewed photo IV Site: Peripheral, without redness Musculoskeletal: No Tenderness to Palpation of Joints or Extremities Neurological: Cranial nerves II-XII grossly intact - Assessment/Plan Antibiotics: [] Assessment/Plan: [] Active and Suspected Problems (Last Updated 07/22/19 @ 13:43 by Khadar Casey DO) Osteomyelitis of foot, right, acute (Acute) R foot osteo - recent cx with mssa, GBS, enterococcus, anaerobes. Tolerated zosyn 07/22/19 and 04/15/19. Will restart zosyn, stop vanc. MRSA pcr was neg. OR today for I&D. Will follow, thank you.
--- NOTE | 2019-07-23 13:32 | NURSING ---
report called to bull in ac, updated Rx kel to send zosyn to AC area
[2019-07-23] MEDS: 0.9% Normal Saline 1,000 ML 100 ML IV (14:30)
--- NOTE | 2019-07-23 15:20 | OP.PCM_ITS ---
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 Debrided right 5th toe and distal 5th metatarsal sent to pathology and microbiology. 2. Clearance fragment right 5th metatarsal sent to pathology and microbiology Estimated Blood Loss (mL): 1mL Description of Procedure: Indications: This is a 34 year old gentleman with poorly controlled diabetes who has infection w/ osteomyelitis to the right foot. Right foot xrays show osteomyelitis to the 5th metatarsal, MRI show osteomyelitis to the 4th and 5th metatarsals. Given the findings patient agreed to proceed with debridement of right foot. The consent form was reviewed with the patient and he freely signed it. Patient understands risks of possible limb loss and . Also reviewed possible other complications which include but are not limited to pain, further infections, blood clots, need for further surgery, swelling, nonhealing, delayed healing, deformity, transfer lesions. Patient expressed understands and agreement and was able to repeat back. All of patient's questions were answered. No guarantees were given nor implied. Operative procedure: Patient was brought back into the operating room and was placed on the operating room table in the supine position. Patient was carefully secured to the operating room table with a safety belt around his waist. A time out was performed and the patient was properly identified and the surgical plan was confirmed. A well padded pneumatic tourniquet was applied around the patient's right ankle. The patient received MAC anesthesia and then a total of 10mL of 0.5% Bupivacaine plain was given as a local nerve block around the lateral forefoot. The right foot was scrubbed, prepped, and draped in the usual aseptic fashion. Further attention was directed to the right foot where there was a large ulceration to the lateral 5th metatarsal phalangeal joint which had exposed bone which was necrotic, soft, fragmented and destroyed, there was purulence draining from wound and there was significant cellulitis present to the site with some maloder. The right foot was elevated for 3 minutes and the right ankle pneumatic tourniquet was inflated to 250mmHg. All nonviable, infected, and necrotic soft tissue and bone was debrided from the right foot - this entailed the 5th toe and the distal half of the 5th metatarsal. Again it was noted this bone was very soft, destroyed, fragmented, yellow and infected. There was abscess to the 5th ray and 4th intermetatarsal space which was debrided, drained and excised. This was debrided down to healthy viable soft tissue and bone. The 4th metatarsal and 4th toe did not appear to be involvement and were left intact. The removed 5th toe and metatarsal was sent to pathology and microbiology for further evaluation. A clearance fragment was taken from the 5th metatarsal for further evaluation - this was sent to microbiology and pathology. The clearance fragment did appear to be healthy and viable. The site was flushed out with copious amounts of normal saline solution. All remain tissues appeared healthy and viable. The proximal tissue margins were reapproximated using 3-0 Prolene, and distally the site was left open to drain. The site was packed with 1/4 inch Iodoform packing. A dressing was applied which consisted of betadine soaked gauze, 4x4 gauze, kerlix and danielle dressing. The pneumatic tourniquet was deflated (total tourniquet time was 23 minutes) and there was immediate return of warmth and perfusion to the foot and remaining toes. The patient tolerated the procedure well and the anesthesia well with no complications. The patient was transported from the operating room to the recovery room with vital signs stable and in good condition. Post op orders were placed. Post op xrays were obtained which confirmed debridement as noted above, otherwise no acute findings. The patient will be followed as an inpatient. Grafts/Implants Used: None - Complications None
--- NOTE | 2019-07-23 15:40 | RAD_ITS ---
STUDY: X-RAY - RIGHT FOOT CLINICAL: Male, 34 years old. Post amputation right 5th digit TECHNIQUE: 3 view(s) of the foot. COMPARISON: 07/22/2019 FINDINGS: Postsurgical changes status post amputation of the fifth metatarsal and phalanx at the proximal fifth metatarsal diaphysis level. There is soft tissue lucency and prominence secondary to packing. Postsurgical soft tissue swelling. Normal talus, calcaneus, and tarsal bones. Normal visualized subtalar, talonavicular, calcaneocuboid, tarsal and tarsometatarsal articulations. Otherwise normal metatarsi allowing for limited contour detail of the fourth metatarsal head. Normal metatarsophalangeal joint of the great toe. Normal tibial and fibular sesamoid bones. Normal interphalangeal joint of the great toe. Normal phalanges of the great toe. Normal second through fifth metatarsophalangeal joints. Normal interphalangeal joints and phalanges of the lesser toes. RAD/Foot min 3 Views IMPRESSION: Resection of the fifth metatarsal and phalanx with expected postsurgical changes. Electronically Signed: Pearl Sumner MD at 7:00 EST , Service support ,
--- NOTE | 2019-07-23 16:28 | CHAPLAIN ---
patient was still in OR for a procedure; spouse of pt was in room; offered support for spouse;
[2019-07-23 17:35] LABS: Bedside Glucose 142 mg/dL (70-110)
[2019-07-23] MEDS: oxyCODONE 5 MG Tablet PO (21:19)
[2019-07-23] MEDS: Acetaminophen 325 MG Tablet 650 MG PO (21:30)
[2019-07-23 21:46] LABS: Bedside Glucose 420 mg/dL (70-110)
[2019-07-24 04:00] VITALS: BP 114/64; PULSE 84; RESP 16; TEMP 36.8; O2SAT 98
[2019-07-24] MEDS: Insulin Lispro 100 UNIT/ML INSULN.PEN SC ×3 (06:26→16:08)
[2019-07-24 06:55] LABS: Bedside Glucose 277 mg/dL (70-110)
[2019-07-24] MEDS: oxyCODONE 5 MG Tablet 10 MG PO ×4 (07:03→21:35)
--- NOTE | 2019-07-24 07:20 | PN_ITS ---
Patient Problems: Active and Suspected Problems (Last Updated 07/22/19 @ 13:43 by Khadar Casey DO) Osteomyelitis of foot, right, acute (Acute) Subjective: Patient was seen this morning for follow up on right foot, overall he is doing well, no over night or acute events. He is resting comfortably in bed. He relates there is some pain to foot. No complaints of fever, chills, nausea or vomiting or any other complaints. - Physical Exam Vitals/I&O's: Vital Signs Temp Pulse Resp BP Pulse Ox 98.3 F 84 16 114/64 98 07/24/19 04:00 07/24/19 04:00 07/24/19 04:00 07/24/19 04:00 07/24/19 04:00 Oxygen Delivery Method Room Air Weight: 88.451 kg Body Mass Index (BMI) 27.1 Finger Stick Blood Glucose 133 Intake and Output for Last 24 Hours 07/22/19 07/23/19 07/24/19 23:59 23:59 23:59 Intake Total 1680 / 2280 1285 / 1765 1880 / 1880 Balance 1680 / 2280 1285 / 1765 1880 / 1880 General: Alert, Oriented x3, Cooperative, No apparent distress Extremities: Capillary Refill Less than 3 Seconds, No Calf Tenderness, Peripheral Pulses Normal, - - s/p right foot 5th toe and distal 5th metatarsal with soft tissue healthy and viable, no purulence, no maloder, no remaining abscess, no necrosis present. CFT < 2 seconds to 1-4 toes right foot. Minimal residual cellulitis to the distal lateral right foot - much improved, there is some edema to the right foot c/w normal findings from resolving infection and debridement, no blistering present. Patient relates to some pain when removing packing and placing new packing, otherwise no POP or pain on ROM to right foot/ankle. Psych/Mental Status: Normal Affect, Alert and oriented to time, place, person, mood and affect Microbiology Past 72 Hours 07/22/19 14:30 Wound - No Site/Description Given Gram Stain - Final 07/22/19 14:30 Wound - No Site/Description Given Wound Culture - Preliminary Beta hemolytic organism 07/22/19 14:30 Wound - No Site/Description Given Anaerobic Culture - Preliminary Laboratory Results 07/23/19 12:32: POC Glucose 175 H 07/23/19 17:30: POC Glucose 142 H 07/23/19 21:24: POC Glucose 420 H 07/24/19 06:25: POC Glucose 277 H Current Medications Acetaminophen (Tylenol) 650 mg PO Q6H PRN PRN PRN Reason: Pain Score 1-3/Temp > 100.7 F Last Admin: 07/23/19 21:30 Dose: 650 mg Documented by: Enoxaparin Sodium (Lovenox) 40 mg SC DAILY [facility] Last Admin: 07/23/19 07:04 Dose: Not Given Documented by: Glucagon () 1 mg IM .X1 PRN PRN Reason: Hypoglycemia Dextrose (Dextrose 10%-Water) 250 mls @ 999 mls/hr IV .Q16M PRN; Protocol PRN Reason: HYPOGLYCEMIA Piperacillin Sod/Tazobactam (Sod 3.375 gm/ Sodium Chloride) 50 mls @ 12.5 mls/hr IV Q8 [facility] Last Admin: 07/24/19 06:24 Dose: 12.5 mls/hr Documented by: Insulin Glargine (Lantus (Bkc)) 45 units SC QHS [facility] Last Admin: 07/23/19 21:25 Dose: 45 u Documented by: Insulin Human Lispro (Humalog Kwikpen (Bkc)) 0 unit SC TIDAC [facility]; Protocol Last Admin: 07/24/19 06:26 Dose: 9 u Documented by: Morphine Sulfate () 2 mg IV Q3H PRN PRN PRN Reason: breakthrough pain Ondansetron HCl (Zofran) 4 mg IV Q8H PRN PRN PRN Reason: NAUSEA/VOMITING Oxycodone HCl (Oxyir) 5 mg PO Q4H PRN PRN PRN Reason: Pain Score 4-5/10 Last Admin: 07/23/19 21:19 Dose: 5 mg Documented by: Oxycodone HCl (Oxyir) 10 mg PO Q4H PRN PRN PRN Reason: Pain Score 6-10/10 Last Admin: 07/24/19 07:03 Dose: 10 mg Documented by: Sodium Chloride () 10 - 40 ml IV UD PRN PRN Reason: SALINE FLUSH Medical Necessity - Tobacco Use Smoking Status: Heavy Smoker (>10/day) Tobacco Use: Cigarettes Assessment/Plan All Active Problems (Last Updated 07/22/19 @ 13:43 by Khadar Casey DO) Pain in right foot (Acute) Sepsis (Acute) Cellulitis of leg (Resolved) History of diabetic neuropathy (Acute) DKA (diabetic ketoacidoses) (Acute) Aerophagia (Acute) Osteomyelitis of foot, right, acute (Acute) Osteomyelitis 4th and 5th metatarsals and toes s/p right foot debridement on 07/23/19 Cellulitis right foot, ulcer down to bone and joint Poorly controlled Diabetes with peripheral neuropathy Tobacco Use - advised tobacco cessation Reviewed diagnostic data. Changed dressing right foot - significant improvement noted, cellulitis much improved and tissues appears healthy and viable. Site cleansed with normal saline solution, packed site with 1/4 in Iodoform gauze packing, and applied overlying gauze, kerlix and danielle dressing. Keep clean, dry and intact. Will plan to proceed with wound vac upon discharge. Patient is on IV antibiotics at this time. Continue to follow cultures, Infectious Disease is managing antibiotics. Discharge planning: From podiatry standpoint ok to eventually discharge home (possibly Friday) - will need wound vac and home health nursing set up prior to discharge, and also determine antibiotics based on culture results. Podiatry will continue to follow daily.
[2019-07-24 07:58] LABS: Absolute Lymphocyte Count 2.05 X10^3/uL (0.83-4.51); Absolute Neutrophil Count 9.1 X10^3/uL (2.0-7.7); Basophil# 0.08 X10^3/uL; Basophil% 0.6 % (0-1); Eosinophil# 0.22 X10^3/uL; Eosinophils% 1.7 % (0-5); Hematocrit 42.9 % (40-54); Hemoglobin 14.2 g/dL (13.0-16.5); Lymphocyte # 2.05 X10^3/ul (4.0); Lymphocyte % 16.2 % (19-41); Mean Corp Hgb Conc 33.1 g/dL (32-36); Mean Corpuscular Hgb 28.9 pg (27.0-32.0); Mean Corpuscular Volume 87.2 fL (80-94); Mean Platelet Vol. 8.8 fl (6.2-12.0); Monocyte# 1.15 X10^3/uL; Monocyte% 9.1 % (0-10); NRBC Flagged by Analyzer 0 % (0-5); Neutrophil # 9.05 X10^3/uL (2.7-7.7); Neutrophil % 71.3 % (47-70); Platelet Count 383 K/mm3 (150-450); RBC Distribution Width CV 11.6 % (11.6-14.6); RBC Distribution Width SD 37.1 fl (35.1-43.9); Red Blood Count 4.92 M/mm3 (4.6-6.2); White Blood Count 12.7 K/mm3 (4.4-11.0)
[2019-07-24 08:08] LABS: Anion Gap 3 (5-15); BUN 15 mg/dL (7-18); Calcium,Total 9.3 mg/dL (8.5-10.1); Chloride 105 mmol/L (98-107); Creatinine, Serum 0.88 mg/dL (0.70-1.30); EST Glomerular Filtration Rate 105 mL/min (>60); Est Glom Filt Rate - Afr Amer 127 mL/min (>60); Estimated Creatinine Clearance 125.98 ml/min; Glucose 146 mg/dL (74-106); Sodium Level 138 mmol/L (136-145)
[2019-07-24] MEDS: Enoxaparin 40 MG/0.4 ML Syringe SC (08:24)
[2019-07-24 08:27] VITALS: BP 112/63; PULSE 97; RESP 16; TEMP 36.6; O2SAT 97
--- NOTE | 2019-07-24 10:34 | PN_ITS ---
Patient Problems: Active and Suspected Problems (Last Updated 07/22/19 @ 13:43 by Khadar Casey DO) Osteomyelitis of foot, right, acute (Acute) Subjective: Patient seen and examined. He has no complaints this morning. Review of symptoms otherwise negative. He had right foot soft tissue and bone debridement with partial fifth ray amputation for osteomyelitis. Podiatry and ID on board. Labs and vitals reviewed. Vitals/I&O's: Vital Signs Temp Pulse Resp BP Pulse Ox 97.8 F 97 16 112/63 97 07/24/19 08:27 07/24/19 08:27 07/24/19 08:27 07/24/19 08:27 07/24/19 08:27 Oxygen Delivery Method Room Air Weight: 195 lb Body Mass Index (BMI) 27.1 Finger Stick Blood Glucose 133 Intake and Output for Last 24 Hours 07/22/19 07/23/19 07/24/19 23:59 23:59 23:59 Intake Total 1680 / 2280 1285 / 1765 1880 / 1880 Balance 1680 / 2280 1285 / 1765 1880 / 1880 General: Alert, Oriented x3, Cooperative HEENT: Atraumatic, PERRLA, EOMI, Normocephalic Oral: Moist Mucosa Neck: Supple, No JVD, Negative Carotid Bruits Lungs: Clear to auscultation, Normal air movement, No rhonchi, No wheeze Cardiovascular: Normal S1, Normal S2, No murmurs Abdomen: Bowel Sounds Present, Soft, Non Tender Extremities: No clubbing, No cyanosis, No edema, Capillary Refill Less than 3 S econds Skin: - - right foot bandaged Musculoskeletal: No Tenderness to Palpation of Joints or Extremities Lymphatic: No Cervical, Supraclavicular, or Inguinal Adenopathy Neurological: Cranial nerves II-XII grossly intact, Neuro grossly intact, Motor Exam 5/5 strength throughout Psych/Mental Status: Normal Affect, Appropriate, Alert and oriented to time, place, person, mood and affect Microbiology Past 72 Hours 07/22/19 14:30 Wound - No Site/Description Given Gram Stain - Final 07/22/19 14:30 Wound - No Site/Description Given Wound Culture - Preliminary Beta hemolytic organism 07/22/19 14:30 Wound - No Site/Description Given Anaerobic Culture - Preliminary Laboratory Results 07/23/19 12:32: POC Glucose 175 H 07/23/19 17:30: POC Glucose 142 H 07/23/19 21:24: POC Glucose 420 H 07/24/19 06:25: POC Glucose 277 H 07/24/19 07:28: WBC 12.7 H, RBC 4.92, Hgb 14.2, Hct 42.9, MCV 87.2, MCH 28.9, MCHC 33.1, RDW Std Deviation 37.1, RDW Coeff of Sharon 11.6, Plt Count 383, MPV 8.8, Immature Gran % (Auto) 1.100 H, Neut % (Auto) 71.3 H, Lymph % (Auto) 16.2 L , [place] % (Auto) 9.1, Eos % (Auto) 1.7, Baso % (Auto) 0.6, Absolute Neuts (auto) 9.1 H, Absolute Lymphs (auto) 2.05, Nucleated RBC % 0 07/24/19 07:28: Sodium 138, Potassium 4.0, Chloride 105, Carbon Dioxide 30.0, Anion Gap 3 L, BUN 15, Creatinine 0.88, Estim Creat Clear Calc 125.98, Est GFR (MDRD) Af Amer 127, Est GFR (MDRD) Non-Af 105, BUN/Creatinine Ratio 17.0, Glucose 146 H, Calcium 9.3 Diagnostic Data Lower Extremity MRI 07/22/19 14:25 IMPRESSION: Osteomyelitis of the fifth metatarsal and proximal phalanx more than the fourth metatarsal head and proximal phalanx. Soft tissue ulcer with subcutaneous fluid collection suggesting abscess formation. Electronically Signed: Price Sargent MD at 16:45 EST , Service support , Foot X-Ray 07/23/19 15:40 IMPRESSION: Resection of the fifth metatarsal and phalanx with expected postsurgical changes. Electronically Signed: Pearl Sumner MD at 7:00 EST , Service support , Current Medications Acetaminophen (Tylenol) 650 mg PO Q6H PRN PRN PRN Reason: Pain Score 1-3/Temp > 100.7 F Last Admin: 07/23/19 21:30 Dose: 650 mg Documented by: Enoxaparin Sodium (Lovenox) 40 mg SC DAILY [facility] Last Admin: 07/24/19 08:24 Dose: 40 mg Documented by: Glucagon () 1 mg IM .X1 PRN PRN Reason: Hypoglycemia Dextrose (Dextrose 10%-Water) 250 mls @ 999 mls/hr IV .Q16M PRN; Protocol PRN Reason: HYPOGLYCEMIA Piperacillin Sod/Tazobactam (Sod 3.375 gm/ Sodium Chloride) 50 mls @ 12.5 mls/hr IV Q8 [facility] Last Admin: 07/24/19 06:24 Dose: 12.5 mls/hr Documented by: Insulin Glargine (Lantus ([facility])) 45 units SC QHS [facility] Last Admin: 07/23/19 21:25 Dose: 45 u Documented by: Insulin Human Lispro (Humalog Kwikpen ([facility])) 0 unit SC TIDAC [facility]; Protocol Last Admin: 07/24/19 06:26 Dose: 9 u Documented by: Morphine Sulfate () 2 mg IV Q3H PRN PRN PRN Reason: breakthrough pain Ondansetron HCl (Zofran) 4 mg IV Q8H PRN PRN PRN Reason: NAUSEA/VOMITING Oxycodone HCl (Oxyir) 5 mg PO Q4H PRN PRN PRN Reason: Pain Score 4-5/10 Last Admin: 07/23/19 21:19 Dose: 5 mg Documented by: Oxycodone HCl (Oxyir) 10 mg PO Q4H PRN PRN PRN Reason: Pain Score 6-10/10 Last Admin: 07/24/19 07:03 Dose: 10 mg Documented by: Sodium Chloride () 10 - 40 ml IV UD PRN PRN Reason: SALINE FLUSH STROKE Vital Signs/Narrative: Vital Signs Temp Pulse Resp BP Pulse Ox 07/24/19 08:27 97.8 F 97 16 112/63 97 Medical Necessity - Tobacco Use Smoking Status: Heavy Smoker (>10/day) Tobacco Use: Cigarettes Assessment/Plan All Active Problems (Last Updated 07/22/19 @ 13:43 by Khadar Casey DO) Pain in right foot (Acute) Sepsis (Acute) Cellulitis of leg (Resolved) History of diabetic neuropathy (Acute) DKA (diabetic ketoacidoses) (Acute) Aerophagia (Acute) Osteomyelitis of foot, right, acute (Acute) 1. Right foot osteomyelitis s/p right foot debridment and 5th toe partial amputation * today is POD 1 * pain is well controlled * on IV zosyn; vancomycin dc'd * Recent cultures with MSSA, group B strep, enterococcus and anaerobes. MRSA PCR during this admission was negative. * wound and bone cultures: wound culture growing beta hemolytic organism. * ID and podiatry on board * arterial studies showed normal bilateral lower ABPI execpt for left posterior tibial at 0.93, consistent with mild occlusive disease * 2. Type 1 diabetes mellitus * A1C is 8.8 * on lantus 45IU qhs * ISS. Accuchecks ACHS * * DVT prophylaxis; lovenox Code Visit Inpatient E&M: 19466 Subs Hosp L2
[2019-07-24 11:32] VITALS: BP 102/62; PULSE 87; RESP 16; TEMP 36.4; O2SAT 96
[2019-07-24 11:36] LABS: Bedside Glucose 195 mg/dL (70-110)
[2019-07-24] MEDS: 0.9% Saline Lock 10 ML Syringe IV (14:26)
[2019-07-24 14:33] VITALS: BP 127/74; PULSE 84; RESP 16; TEMP 36.9; O2SAT 98
--- NOTE | 2019-07-24 16:05 | CASEMGMT ---
SOCIAL WORK INFORMANT: [employer] REASON FOR REFERRAL: FINANCIAL CONCERNS MET WITH PATIENT IN ROOM. INTRODUCED ROLE AND REASON FOR REFERRAL. PATIENT REPORTS HAS [employer] INSURANCE AND HAS FOOD ASSISTANCE. 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 PATIENT REPORTS HAS BEEN HAVING ISSUES GETTING A KNEE SCOOTER COVERED BY INSURANCE AND HAS BEEN IN CONTACT WITH A [employer]ARN [employer]ER THROUGH [employer]. PATIENT UNABLE TO PROVIDE NAME OF PHONE NUMBER. PATIENT REPORTS NEEDS TO GET BACK TO WORK HOME IS SINGLE INCOME. EMOTIONAL SUPPORT AND ACTIVE LISTENING PROVIDED. INFORMED PATIENT WILL HAVE SOMEONE FOLLOW UP ON FRIDAY REGARDING DME. PATIENT DENIES ANY FURTHER NEEDS. Solomon GUILLERMO, CYBER TRANSPORT SYSTEMS SPECIALIST, ACUTE CARE NURSE PRACTITIONER.
[2019-07-24 16:26] LABS: Bedside Glucose 222 mg/dL (70-110)
[2019-07-24 20:36] VITALS: BP 120/78; PULSE 87; RESP 18; TEMP 36.8; O2SAT 100
[2019-07-24 21:46] LABS: Bedside Glucose 255 mg/dL (70-110)
[2019-07-25 02:30] VITALS: BP 113/66; PULSE 84; RESP 18; TEMP 36.5; O2SAT 96
[2019-07-25 06:13] LABS: Absolute Lymphocyte Count 2.94 X10^3/uL (0.83-4.51); Absolute Neutrophil Count 7.5 X10^3/uL (2.0-7.7); Basophil# 0.09 X10^3/uL; Basophil% 0.7 % (0-1); Eosinophil# 0.29 X10^3/uL; Eosinophils% 2.4 % (0-5); Hematocrit 43.1 % (40-54); Hemoglobin 14.4 g/dL (13.0-16.5); Lymphocyte # 2.94 X10^3/ul (4.0); Lymphocyte % 24.1 % (19-41); Mean Corp Hgb Conc 33.4 g/dL (32-36); Mean Corpuscular Volume 86.7 fL (80-94); Mean Platelet Vol. 8.7 fl (6.2-12.0); Monocyte# 1.18 X10^3/uL; Monocyte% 9.7 % (0-10); NRBC Flagged by Analyzer 0 % (0-5); Neutrophil # 7.49 X10^3/uL (2.7-7.7); Neutrophil % 61.5 % (47-70); Platelet Count 363 K/mm3 (150-450); RBC Distribution Width CV 11.9 % (11.6-14.6); RBC Distribution Width SD 37.4 fl (35.1-43.9); Red Blood Count 4.97 M/mm3 (4.6-6.2); White Blood Count 12.2 K/mm3 (4.4-11.0)
[2019-07-25] MEDS: oxyCODONE 5 MG Tablet 10 MG PO ×2 (06:25→21:06)
[2019-07-25] MEDS: Insulin Lispro 100 UNIT/ML INSULN.PEN SC ×3 (06:30→16:22)
[2019-07-25 06:38] LABS: Anion Gap 4 (5-15); BUN 19 mg/dL (7-18); BUN/Creat Ratio 19.2 RATIO (10-20); Calcium,Total 9.3 mg/dL (8.5-10.1); Chloride 101 mmol/L (98-107); Creatinine, Serum 0.99 mg/dL (0.70-1.30); EST Glomerular Filtration Rate 92 mL/min (>60); Est Glom Filt Rate - Afr Amer 111 mL/min (>60); Estimated Creatinine Clearance 111.98 ml/min; Glucose 183 mg/dL (74-106); Potassium 4.2 mmol/L (3.5-5.1); Sodium Level 135 mmol/L (136-145)
[2019-07-25 06:41] LABS: Bedside Glucose 202 mg/dL (70-110)
[2019-07-25] MEDS: Enoxaparin 40 MG/0.4 ML Syringe SC (10:00)
[2019-07-25 10:03] VITALS: BP 104/64; PULSE 94; RESP 18; TEMP 36.5; O2SAT 96
[2019-07-25 10:05] VITALS: PULSE 94
--- NOTE | 2019-07-25 10:30 | PCM.PROGNOTE ---
Patient Problems: Active and Suspected Problems (Last Updated 07/22/19 @ 13:43 by Khadar Casey DO) Osteomyelitis of foot, right, acute (Acute) Subjective: Patient was seen today for follow up on right foot. He relates to little to no pain. He is resting comfortably in bed with no complaints, no complaints of fever, chills, nausea or vomiting. - Physical Exam Vitals/I&O's: Vital Signs Temp Pulse Resp BP Pulse Ox 97.7 F L 94 18 104/64 96 07/25/19 10:03 07/25/19 10:05 07/25/19 10:03 07/25/19 10:03 07/25/19 10:03 Oxygen Delivery Method Room Air Weight: 88.451 kg Body Mass Index (BMI) 27.1 Finger Stick Blood Glucose 133 Intake and Output for Last 24 Hours 07/23/19 07/24/19 07/25/19 23:59 23:59 23:59 Intake Total 1285 / 1765 2980 / 2980 50 / 50 Balance 1285 / 1765 2980 / 2980 50 / 50 General: Alert, Oriented x3, Cooperative, No apparent distress Extremities: Capillary Refill Less than 3 Seconds, No Calf Tenderness, - - s/p right foot 5th toe and distal 5th metatarsal with soft tissue healthy and viable, no purulence, no maloder, no remaining abscess, no necrosis present. CFT < 2 seconds to 1-4 toes right foot. Less cellulitis to the distal lateral right foot - much improved, there is some edema to the right foot c/w normal findings from resolving infection and debridement - improved, no blistering present. Patient relates to some pain when removing packing and placing new packing - less than yesterday, otherwise no POP or pain on ROM to right foot/ankle. Psych/Mental Status: Normal Affect, Alert and oriented to time, place, person, mood and affect Microbiology Past 72 Hours 07/22/19 14:30 Wound - No Site/Description Given Gram Stain - Final 07/22/19 14:30 Wound - No Site/Description Given Wound Culture - Final Streptococcus agalactiae (B) Enterococcus faecalis Enterobacter cloacae complex 07/23/19 15:03 Tissue - Other Gram Stain - Final 07/23/19 15:03 Tissue - Other Wound Culture - Preliminary No growth-Final to follow 07/23/19 15:00 Tissue - Other Gram Stain - Final 07/23/19 15:00 Tissue - Other Wound Culture - Preliminary Beta hemolytic organism Gram positive organism 07/22/19 11:40 Blood Culture (Wb) - Left Wrist Blood Culture - Preliminary No growth in 48 hours. 07/22/19 11:40 Blood Culture (Wb) - Anticubital Left Blood Culture - Preliminary No growth in 48 hours. Laboratory Results 07/24/19 11:10: POC Glucose 195 H 07/24/19 16:06: POC Glucose 222 H 07/24/19 21:33: POC Glucose 255 H 07/25/19 05:46: WBC 12.2 H, RBC 4.97, Hgb 14.4, Hct 43.1, MCV 86.7, MCH 29.0, MCHC 33.4, RDW Std Deviation 37.4, RDW Coeff of Sharon 11.9, Plt Count 363, MPV 8.7, Immature Gran % (Auto) 1.600 H, Neut % (Auto) 61.5, Lymph % (Auto) 24.1, Coffee % (Auto) 9.7, Eos % (Auto) 2.4, Baso % (Auto) 0.7, Absolute Neuts (auto) 7.5, Absolute Lymphs (auto) 2.94, Nucleated RBC % 0 07/25/19 05:46: Sodium 135 L, Potassium 4.2, Chloride 101, Carbon Dioxide 30.0, Anion Gap 4 L, BUN 19 H, Creatinine 0.99, Estim Creat Clear Calc 111.98, Est GFR (MDRD) Af Amer 111, Est GFR (MDRD) Non-Af 92, BUN/Creatinine Ratio 19.2, Glucose 183 H, Calcium 9.3 07/25/19 06:30: POC Glucose 202 H Current Medications Acetaminophen (Tylenol) 650 mg PO Q6H PRN PRN PRN Reason: Pain Score 1-3/Temp > 100.7 F Last Admin: 07/23/19 21:30 Dose: 650 mg Documented by: Enoxaparin Sodium (Lovenox) 40 mg SC DAILY DEVEN Last Admin: 07/25/19 10:00 Dose: 40 mg Documented by: Glucagon () 1 mg IM .X1 PRN PRN Reason: Hypoglycemia Dextrose (Dextrose 10%-Water) 250 mls @ 999 mls/hr IV .Q16M PRN; Protocol PRN Reason: HYPOGLYCEMIA Piperacillin Sod/Tazobactam (Sod 3.375 gm/ Sodium Chloride) 50 mls @ 12.5 mls/hr IV Q8 DEVEN Last Admin: 07/25/19 06:25 Dose: 12.5 mls/hr Documented by: Insulin Glargine (Lantus (Bkc)) 45 units SC QHS DEVEN Last Admin: 07/24/19 21:34 Dose: 45 u Documented by: Insulin Human Lispro (Humalog Kwikpen (Bk)) 0 unit SC TIDAC [facility]; Protocol Last Admin: 07/25/19 06:30 Dose: 3 u Documented by: Morphine Sulfate () 2 mg IV Q3H PRN PRN PRN Reason: breakthrough pain Ondansetron HCl (Zofran) 4 mg IV Q8H PRN PRN PRN Reason: NAUSEA/VOMITING Oxycodone HCl (Oxyir) 5 mg PO Q4H PRN PRN PRN Reason: Pain Score 4-5/10 Last Admin: 07/23/19 21:19 Dose: 5 mg Documented by: Oxycodone HCl (Oxyir) 10 mg PO Q4H PRN PRN PRN Reason: Pain Score 6-10/10 Last Admin: 07/25/19 06:25 Dose: 10 mg Documented by: Sodium Chloride () 10 - 40 ml IV UD PRN PRN Reason: SALINE FLUSH Last Admin: 07/24/19 14:26 Dose: 10 ml Documented by: Medical Necessity - Tobacco Use Smoking Status: Heavy Smoker (>10/day) Tobacco Use: Cigarettes Assessment/Plan All Active Problems (Last Updated 07/22/19 @ 13:43 by Khadar Casey DO) Pain in right foot (Acute) Sepsis (Acute) Cellulitis of leg (Resolved) History of diabetic neuropathy (Acute) DKA (diabetic ketoacidoses) (Acute) Aerophagia (Acute) Osteomyelitis of foot, right, acute (Acute) Osteomyelitis 4th and 5th metatarsals and toes s/p right foot debridement on 07/23/19 Cellulitis right foot, ulcer down to bone and joint Poorly controlled Diabetes with peripheral neuropathy Tobacco Use - advised tobacco cessation Reviewed diagnostic data. Changed dressing right foot - continued improvement noted, cellulitis much improved and tissues appears healthy and viable. Site cleansed with normal saline solution, packed site with 1/4 in Iodoform gauze packing, and applied overlying gauze, kerlix and danielle dressing. Keep clean, dry and intact. Will plan to proceed with wound vac tomorrow. Patient is on IV antibiotics at this time. Continue to follow cultures, Infectious Disease is managing antibiotics. Discharge planning: From podiatry standpoint ok to eventually discharge home (possibly Friday) - will need wound vac and home health nursing set up prior to discharge, and also determine antibiotics based on culture results. Podiatry will continue to follow daily.
--- NOTE | 2019-07-25 11:16 | PN_ITS ---
Patient Problems: Active and Suspected Problems (Last Updated 07/22/19 @ 13:43 by Khadar Casey DO) Osteomyelitis of foot, right, acute (Acute) Subjective: Patient seen and examined. He had no complaints. Pain is well controlled. He denies any fever or chills, shortness of breath or dizziness, abdominal pain, diarrhea vomiting. Review systems otherwise negative. Labs and vitals reviewed. Vitals/I&O's: Vital Signs Temp Pulse Resp BP Pulse Ox 97.7 F L 94 18 104/64 96 07/25/19 10:03 07/25/19 10:05 07/25/19 10:03 07/25/19 10:03 07/25/19 10:03 Oxygen Delivery Method Room Air Weight: 195 lb Body Mass Index (BMI) 27.1 Finger Stick Blood Glucose 133 Intake and Output for Last 24 Hours 07/23/19 07/24/19 07/25/19 23:59 23:59 23:59 Intake Total 1285 / 1765 2980 / 2980 50 / 50 Balance 1285 / 1765 2980 / 2980 50 / 50 General: Alert, Oriented x3, Cooperative HEENT: Atraumatic, PERRLA, EOMI, Normocephalic Oral: Moist Mucosa Neck: Supple, No JVD, Negative Carotid Bruits Lungs: Clear to auscultation, Normal air movement, No rhonchi, No wheeze Cardiovascular: Normal S1, Normal S2, No murmurs Abdomen: Bowel Sounds Present, Soft, Non Tender Extremities: No clubbing, No cyanosis, No edema, Capillary Refill Less than 3 Seconds Skin: - - right foot bandaged Musculoskeletal: No Tenderness to Palpation of Joints or Extremities Lymphatic: No Cervical, Supraclavicular, or Inguinal Adenopathy Neurological: Cranial nerves II-XII grossly intact, Neuro grossly intact, Motor Exam 5/5 strength throughout Psych/Mental Status: Normal Affect, Appropriate, Alert and oriented to time, place, person, mood and affect Microbiology Past 72 Hours 07/22/19 14:30 Wound - No Site/Description Given Gram Stain - Final 07/22/19 14:30 Wound - No Site/Description Given Wound Culture - Final Streptococcus agalactiae (B) Enterococcus faecalis Enterobacter cloacae complex 07/23/19 15:03 Tissue - Other Gram Stain - Final 07/23/19 15:03 Tissue - Other Wound Culture - Preliminary No growth-Final to follow 07/23/19 15:00 Tissue - Other Gram Stain - Final 07/23/19 15:00 Tissue - Other Wound Culture - Preliminary Beta hemolytic organism Gram positive organism 07/22/19 11:40 Blood Culture (Wb) - Left Wrist Blood Culture - Preliminary No growth in 48 hours. 07/22/19 11:40 Blood Culture (Wb) - Anticubital Left Blood Culture - Preliminary No growth in 48 hours. Laboratory Results 07/24/19 11:10: POC Glucose 195 H 07/24/19 16:06: POC Glucose 222 H 07/24/19 21:33: POC Glucose 255 H 07/25/19 05:46: WBC 12.2 H, RBC 4.97, Hgb 14.4, Hct 43.1, MCV 86.7, MCH 29.0, MCHC 33.4, RDW Std Deviation 37.4, RDW Coeff of Sharon 11.9, Plt Count 363, MPV 8.7, Immature Gran % (Auto) 1.600 H, Neut % (Auto) 61.5, Lymph % (Auto) 24.1, [place] % (Auto) 9.7, Eos % (Auto) 2.4, Baso % (Auto) 0.7, Absolute Neuts (auto) 7.5, Absolute Lymphs (auto) 2.94, Nucleated RBC % 0 07/25/19 05:46: Sodium 135 L, Potassium 4.2, Chloride 101, Carbon Dioxide 30.0, Anion Gap 4 L, BUN 19 H, Creatinine 0.99, Estim Creat Clear Calc 111.98, Est GFR (MDRD) Af Amer 111, Est GFR (MDRD) Non-Af 92, BUN/Creatinine Ratio 19.2, Glucose 183 H, Calcium 9.3 07/25/19 06:30: POC Glucose 202 H Current Medications Acetaminophen (Tylenol) 650 mg PO Q6H PRN PRN PRN Reason: Pain Score 1-3/Temp > 100.7 F Last Admin: 07/23/19 21:30 Dose: 650 mg Documented by: Enoxaparin Sodium (Lovenox) 40 mg SC DAILY DEVEN Last Admin: 07/25/19 10:00 Dose: 40 mg Documented by: Glucagon () 1 mg IM .X1 PRN PRN Reason: Hypoglycemia Dextrose (Dextrose 10%-Water) 250 mls @ 999 mls/hr IV .Q16M PRN; Protocol PRN Reason: HYPOGLYCEMIA Piperacillin Sod/Tazobactam (Sod 3.375 gm/ Sodium Chloride) 50 mls @ 12.5 mls/hr IV Q8 DEVEN Last Admin: 07/25/19 06:25 Dose: 12.5 mls/hr Documented by: Insulin Glargine (Lantus (Bkc)) 45 units SC QHS DEVEN Last Admin: 07/24/19 21:34 Dose: 45 u Documented by: Insulin Human Lispro (Humalog Kwikpen (Bk)) 0 unit SC TIDAC [facility]; Protocol Last Admin: 07/25/19 06:30 Dose: 3 u Documented by: Morphine Sulfate () 2 mg IV Q3H PRN PRN PRN Reason: breakthrough pain Ondansetron HCl (Zofran) 4 mg IV Q8H PRN PRN PRN Reason: NAUSEA/VOMITING Oxycodone HCl (Oxyir) 5 mg PO Q4H PRN PRN PRN Reason: Pain Score 4-5/10 Last Admin: 07/23/19 21:19 Dose: 5 mg Documented by: Oxycodone HCl (Oxyir) 10 mg PO Q4H PRN PRN PRN Reason: Pain Score 6-10/10 Last Admin: 07/25/19 06:25 Dose: 10 mg Documented by: Sodium Chloride () 10 - 40 ml IV UD PRN PRN Reason: SALINE FLUSH Last Admin: 07/24/19 14:26 Dose: 10 ml Documented by: STROKE Vital Signs/Narrative: Vital Signs Temp Pulse Resp BP Pulse Ox 07/25/19 10:05 94 07/25/19 10:03 97.7 F L 94 18 104/64 96 Medical Necessity - Tobacco Use Smoking Status: Heavy Smoker (>10/day) Tobacco Use: Cigarettes Assessment/Plan All Active Problems (Last Updated 07/22/19 @ 13:43 by Khadar Casey DO) Pain in right foot (Acute) Sepsis (Acute) Cellulitis of leg (Resolved) History of diabetic neuropathy (Acute) DKA (diabetic ketoacidoses) (Acute) Aerophagia (Acute) Osteomyelitis of foot, right, acute (Acute) 1. Right foot osteomyelitis s/p right foot debridment and 5th toe partial amputation * today is POD 2 * pain is well controlled * on IV zosyn; vancomycin dc'd * Recent cultures with MSSA, group B strep, enterococcus and anaerobes. MRSA PCR during this admission was negative. * wound and bone cultures: wound culture growing Strep agalactiae, Enterococcus faecalis and Enterobacter cloacae complex * ID and podiatry on board * arterial studies showed normal bilateral lower ABPI execpt for left posterior tibial at 0.93, consistent with mild occlusive disease * will need wound vac; to be applied tomorrow, per podiatry * 2. Type 1 diabetes mellitus * A1C is 8.8 * on lantus 45IU qhs * ISS. Accuchecks ACHS * * DVT prophylaxis; lovenox Disposition: for DC home tomorrow after wound vac is applied; ID to determine which antibiotics he will go home on, and for how long. Code Visit Inpatient E&M: 72966 Subs Hosp L2
[2019-07-25 12:55] LABS: Bedside Glucose 281 mg/dL (70-110)
[2019-07-25] MEDS: Acetaminophen 325 MG Tablet 650 MG PO (13:45)
[2019-07-25 16:00] VITALS: BP 115/60; PULSE 84; RESP 18; TEMP 36.6; O2SAT 99
[2019-07-25 16:51] LABS: Bedside Glucose 252 mg/dL (70-110)
[2019-07-25 20:57] VITALS: BP 119/76; PULSE 83; RESP 16; TEMP 36.9; O2SAT 100
[2019-07-25] MEDS: 0.9% Saline Lock 10 ML Syringe IV (21:05)
[2019-07-25 21:41] LABS: Bedside Glucose 315 mg/dL (70-110)
[2019-07-26 04:30] VITALS: BP 106/67; PULSE 79; RESP 16; TEMP 36.3; O2SAT 99
[2019-07-26] MEDS: oxyCODONE 5 MG Tablet PO (05:28)
[2019-07-26] MEDS: Acetaminophen 325 MG Tablet 650 MG PO (05:28)
[2019-07-26 05:52] LABS: Absolute Lymphocyte Count 2.57 X10^3/uL (0.83-4.51); Absolute Neutrophil Count 6.4 X10^3/uL (2.0-7.7); Basophil# 0.09 X10^3/uL; Basophil% 0.9 % (0-1); Eosinophil# 0.24 X10^3/uL; Eosinophils% 2.3 % (0-5); Hemoglobin 14.7 g/dL (13.0-16.5); Lymphocyte # 2.57 X10^3/ul (4.0); Lymphocyte % 24.7 % (19-41); Mean Corp Hgb Conc 33.4 g/dL (32-36); Mean Corpuscular Hgb 28.8 pg (27.0-32.0); Mean Corpuscular Volume 86.3 fL (80-94); Mean Platelet Vol. 8.8 fl (6.2-12.0); Monocyte# 0.85 X10^3/uL; Monocyte% 8.2 % (0-10); NRBC Flagged by Analyzer 0 % (0-5); Neutrophil # 6.42 X10^3/uL (2.7-7.7); Neutrophil % 61.7 % (47-70); Platelet Count 372 K/mm3 (150-450); RBC Distribution Width CV 11.8 % (11.6-14.6); RBC Distribution Width SD 37.2 fl (35.1-43.9); White Blood Count 10.4 K/mm3 (4.4-11.0)
[2019-07-26 06:16] LABS: Anion Gap 4 (5-15); BUN 21 mg/dL (7-18); Calcium,Total 9.5 mg/dL (8.5-10.1); Chloride 99 mmol/L (98-107); EST Glomerular Filtration Rate 91 mL/min (>60); Est Glom Filt Rate - Afr Amer 110 mL/min (>60); Estimated Creatinine Clearance 110.86 ml/min; Glucose 213 mg/dL (74-106); Potassium 4.2 mmol/L (3.5-5.1); Sodium Level 134 mmol/L (136-145)
[2019-07-26] MEDS: Insulin Lispro 100 UNIT/ML INSULN.PEN SC ×2 (06:43→12:22)
[2019-07-26 07:00] LABS: Bedside Glucose 247 mg/dL (70-110)
[2019-07-26 09:07] VITALS: BP 105/68; PULSE 89; RESP 18; TEMP 36.6; O2SAT 98
[2019-07-26] MEDS: Enoxaparin 40 MG/0.4 ML Syringe SC (09:18)
--- NOTE | 2019-07-26 10:03 | CASEMGMT ---
RN CM called [facility] to get in contact with CM for discharge needs. Voice message left with return contact information. RN CM will continue to follow this patient and plan for a safe discharge.
--- NOTE | 2019-07-26 10:27 | PCM.PROGNOTE ---
Patient Problems: Active and Suspected Problems (Last Updated 07/22/19 @ 13:43 by Khadar Casey DO) Osteomyelitis of foot, right, acute (Acute) Subjective: Patient was seen this morning for follow up on right foot, he also has some questions about left foot. He relates right foot is doing well, really no pain. He relates he has had a callus on the left foot, but on open wound. No complaints of fever, chills, nausea or vomiting. - Physical Exam Vitals/I&O's: Vital Signs Temp Pulse Resp BP Pulse Ox 97.8 F 89 18 105/68 98 07/26/19 09:07 07/26/19 09:07 07/26/19 09:07 07/26/19 09:07 07/26/19 09:07 Oxygen Delivery Method Room Air Weight: 88.451 kg Body Mass Index (BMI) 27.1 Finger Stick Blood Glucose 133 Intake and Output for Last 24 Hours 07/24/19 07/25/19 07/26/19 23:59 23:59 23:59 Intake Total 2980 / 2980 1650 / 1650 540 / 540 Balance 2980 / 2980 1650 / 1650 540 / 540 General: Alert, Oriented x3, Cooperative, No apparent distress Extremities: Capillary Refill Less than 3 Seconds, - - Left foot with maintanied callus sub 4th met head with no open lesions, no drainge, no erythema, no edema - there is atrophic plantar fat pad to foot present. No POP or pain on ROM to the foot/ankle bilateral. Right foot dressing clean, dry and intact. Psych/Mental Status: Normal Affect, Alert and oriented to time, place, person, mood and affect Microbiology Past 72 Hours 07/23/19 15:03 Tissue - Other Gram Stain - Final 07/23/19 15:03 Tissue - Other Wound Culture - Preliminary No growth-Final to follow 07/23/19 15:03 Tissue - Other Anaerobic Culture - Preliminary Checking for anaerobes, further studies to follow. 07/23/19 15:00 Tissue - Other Gram Stain - Final 07/23/19 15:00 Tissue - Other Wound Culture - Final Streptococcus agalactiae (B) 07/23/19 15:00 Tissue - Other Anaerobic Culture - Preliminary Checking for anaerobes, further studies to follow. 07/22/19 14:30 Wound - No Site/Description Given Gram Stain - Final 07/22/19 14:30 Wound - No Site/Description Given Wound Culture - Final Streptococcus agalactiae (B) Enterococcus faecalis Enterobacter cloacae complex 07/22/19 14:30 Wound - No Site/Description Given Anaerobic Culture - Final No anaerobic bacteria isolated. 07/22/19 11:40 Blood Culture (Wb) - Left Wrist Blood Culture - Preliminary No growth in 48 hours. 07/22/19 11:40 Blood Culture (Wb) - Anticubital Left Blood Culture - Preliminary No growth in 48 hours. Laboratory Results 07/25/19 11:43: POC Glucose 281 H 07/25/19 16:21: POC Glucose 252 H 07/25/19 21:27: POC Glucose 315 H 07/26/19 05:10: WBC 10.4, RBC 5.10, Hgb 14.7, Hct 44.0, MCV 86.3, MCH 28.8, MCHC 33.4, RDW Std Deviation 37.2, RDW Coeff of Sharon 11.8, Plt Count 372, MPV 8.8, Immature Gran % (Auto) 2.200 H, Neut % (Auto) 61.7, Lymph % (Auto) 24.7, Bureau % (Auto) 8.2, Eos % (Auto) 2.3, Baso % (Auto) 0.9, Absolute Neuts (auto) 6.4, Absolute Lymphs (auto) 2.57, Nucleated RBC % 0 07/26/19 05:10: Sodium 134 L, Potassium 4.2, Chloride 99, Carbon Dioxide 31.0, Anion Gap 4 L, BUN 21 H, Creatinine 1.00, Estim Creat Clear Calc 110.86, Est GFR (MDRD) Af Amer 110, Est GFR (MDRD) Non-Af 91, BUN/Creatinine Ratio 21.0 H, Glucose 213 H, Calcium 9.5 07/26/19 06:42: POC Glucose 247 H Current Medications Acetaminophen (Tylenol) 650 mg PO Q6H PRN PRN PRN Reason: Pain Score 1-3/Temp > 100.7 F Last Admin: 07/26/19 05:28 Dose: 650 mg Documented by: Enoxaparin Sodium (Lovenox) 40 mg SC DAILY DEVEN Last Admin: 07/26/19 09:18 Dose: 40 mg Documented by: Glucagon () 1 mg IM .X1 PRN PRN Reason: Hypoglycemia Dextrose (Dextrose 10%-Water) 250 mls @ 999 mls/hr IV .Q16M PRN; Protocol PRN Reason: HYPOGLYCEMIA Piperacillin Sod/Tazobactam (Sod 3.375 gm/ Sodium Chloride) 50 mls @ 12.5 mls/hr IV Q8 DEVEN Last Infusion: 07/26/19 09:23 Dose: Infused Documented by: Sodium Chloride () 250 mls @ 15 mls/hr IV .[id number] PRN PRN Reason: Saline Flush Sodium Chloride () 250 mls @ 15 mls/hr IV .[id number] PRN PRN Reason: Additional IVPB Infusion Insulin Glargine (Lantus ([facility])) 45 units SC QHS [facility] Last Admin: 07/25/19 22:20 Dose: 45 u Documented by: Insulin Human Lispro (Humalog Kwikpen ([facility])) 0 unit SC TIDAC [facility]; Protocol Last Admin: 07/26/19 06:43 Dose: 6 u Documented by: Morphine Sulfate () 2 mg IV Q3H PRN PRN PRN Reason: breakthrough pain Ondansetron HCl (Zofran) 4 mg IV Q8H PRN PRN PRN Reason: NAUSEA/VOMITING Oxycodone HCl (Oxyir) 5 mg PO Q4H PRN PRN PRN Reason: Pain Score 4-5/10 Last Admin: 07/26/19 05:28 Dose: 5 mg Documented by: Oxycodone HCl (Oxyir) 10 mg PO Q4H PRN PRN PRN Reason: Pain Score 6-10/10 Last Admin: 07/25/19 21:06 Dose: 10 mg Documented by: Sodium Chloride () 10 - 40 ml IV UD PRN PRN Reason: SALINE FLUSH Last Admin: 07/25/19 21:05 Dose: 20 ml Documented by: Medical Necessity - Tobacco Use Smoking Status: Heavy Smoker (>10/day) Tobacco Use: Cigarettes Assessment/Plan All Active Problems (Last Updated 07/22/19 @ 13:43 by Khadar Casey DO) Pain in right foot (Acute) Sepsis (Acute) Cellulitis of leg (Resolved) History of diabetic neuropathy (Acute) DKA (diabetic ketoacidoses) (Acute) Aerophagia (Acute) Osteomyelitis of foot, right, acute (Acute) Osteomyelitis 4th and 5th metatarsals and toes s/p right foot debridement on 07/23/19 Cellulitis right foot, ulcer down to bone and joint Poorly controlled Diabetes with peripheral neuropathy Tobacco Use - advised tobacco cessation Callus sub 4th met head left foot Reviewed diagnostic data. Wound vac has been ordered, 125mmHg continuous, change q 48-72 hours, for right foot. Patient is on IV antibiotics at this time. Reviewed culture results, Infectious Disease is managing antibiotics. Left foot: Maintanied callused sub 4th metatarsal head. Reviewed padding, offloading and cushioning as well as importance of getting diabetic shoes and inserts. We will plan to add an offloading pad to left shoe insert to float and offload this site. Reviewed risks of ulcer formation in future. We will also plan to proceed with diabetic shoes and inserts in the future. Medical management per medicine team. Podiatry will continue to follow daily.
[2019-07-26 12:31] LABS: Bedside Glucose 267 mg/dL (70-110)
--- NOTE | 2019-07-26 14:11 | PCM.PN.HOSP ---
Patient Problems: Active and Suspected Problems (Last Updated 07/22/19 @ 13:43 by Khadar Casey DO) Osteomyelitis of foot, right, acute (Acute) Reason for Visit: Right foot osteomyelitis. Patient had partial fifth ray amputation Objective: No fever or chills. Vitals/I&O's: Vital Signs Temp Pulse Resp BP Pulse Ox 97.8 F 89 18 105/68 98 07/26/19 09:07 07/26/19 09:07 07/26/19 09:07 07/26/19 09:07 07/26/19 09:07 Oxygen Delivery Method Room Air Weight: 195 lb Body Mass Index (BMI) 27.1 Finger Stick Blood Glucose 133 Intake and Output for Last 24 Hours 07/24/19 07/25/19 07/26/19 23:59 23:59 23:59 Intake Total 2980 / 2980 1650 / 1650 1440 / 1440 Balance 2980 / 2980 1650 / 1650 1440 / 1440 General: Alert, Oriented x3, Cooperative HEENT: Atraumatic, PERRLA, EOMI, Normocephalic Oral: No Gingival or Mucosal Lesions/ Ulcerations Neck: Supple, No JVD, Negative Carotid Bruits Lungs: Clear to auscultation, Normal air movement, No rhonchi, No wheeze, No rales Cardiovascular: Regular rate, Regular Rhythm, Normal S1, Normal S2, No murmurs Abdomen: Bowel Sounds Present, Soft, Non Tender, Non-Distended Extremities: No edema, Capillary Refill Less than 3 Seconds Skin: Ulcer/ Wound - Wound over lateral margin of right foot; osteomyelitis Musculoskeletal: No Tenderness to Palpation of Joints or Extremities, Arthritic Changes Neurological: Cranial nerves II-XII grossly intact, Deep Tendon Reflexes 2+/4 and Symmetrical, Neuro grossly intact Psych/Mental Status: Normal Affect, Appropriate Microbiology Past 72 Hours 07/23/19 15:03 Tissue - Other Gram Stain - Final 07/23/19 15:03 Tissue - Other Wound Culture - Final No growth aerobically. 07/23/19 15:03 Tissue - Other Anaerobic Culture - Preliminary Checking for anaerobes, further studies to follow. 07/23/19 15:00 Tissue - Other Gram Stain - Final 07/23/19 15:00 Tissue - Other Wound Culture - Final Streptococcus agalactiae (B) 07/23/19 15:00 Tissue - Other Anaerobic Culture - Preliminary Checking for anaerobes, further studies to follow. 07/22/19 14:30 Wound - No Site/Description Given Gram Stain - Final 07/22/19 14:30 Wound - No Site/Description Given Wound Culture - Final Streptococcus agalactiae (B) Enterococcus faecalis Enterobacter cloacae complex 07/22/19 14:30 Wound - No Site/Description Given Anaerobic Culture - Final No anaerobic bacteria isolated. 07/22/19 11:40 Blood Culture (Wb) - Left Wrist Blood Culture - Preliminary No growth in 48 hours. 07/22/19 11:40 Blood Culture (Wb) - Anticubital Left Blood Culture - Preliminary No growth in 48 hours. Laboratory Results 07/25/19 16:21: POC Glucose 252 H 07/25/19 21:27: POC Glucose 315 H 07/26/19 05:10: WBC 10.4, RBC 5.10, Hgb 14.7, Hct 44.0, MCV 86.3, MCH 28.8, MCHC 33.4, RDW Std Deviation 37.2, RDW Coeff of Sharon 11.8, Plt Count 372, MPV 8.8, Immature Gran % (Auto) 2.200 H, Neut % (Auto) 61.7, Lymph % (Auto) 24.7, [place] % (Auto) 8.2, Eos % (Auto) 2.3, Baso % (Auto) 0.9, Absolute Neuts (auto) 6.4, Absolute Lymphs (auto) 2.57, Nucleated RBC % 0 07/26/19 05:10: Sodium 134 L, Potassium 4.2, Chloride 99, Carbon Dioxide 31.0, Anion Gap 4 L, BUN 21 H, Creatinine 1.00, Estim Creat Clear Calc 110.86, Est GFR (MDRD) Af Amer 110, Est GFR (MDRD) Non-Af 91, BUN/Creatinine Ratio 21.0 H, Glucose 213 H, Calcium 9.5 07/26/19 06:42: POC Glucose 247 H 07/26/19 12:22: POC Glucose 267 H Current Medications Acetaminophen (Tylenol) 650 mg PO Q6H PRN PRN PRN Reason: Pain Score 1-3/Temp > 100.7 F Last Admin: 07/26/19 05:28 Dose: 650 mg Documented by: Amoxicillin/Clavulanate Potassium (Augmentin Tablet) 875 mg PO BID [facility] Enoxaparin Sodium (Lovenox) 40 mg SC DAILY [facility] Last Admin: 07/26/19 09:18 Dose: 40 mg Documented by: Glucagon () 1 mg IM .X1 PRN PRN Reason: Hypoglycemia Dextrose (Dextrose 10%-Water) 250 mls @ 999 mls/hr IV .Q16M PRN; Protocol PRN Reason: HYPOGLYCEMIA Sodium Chloride () 250 mls @ 15 mls/hr IV .[id number] PRN PRN Reason: Saline Flush Sodium Chloride () 250 mls @ 15 mls/hr IV .[id number] PRN PRN Reason: Additional IVPB Infusion Insulin Glargine (Lantus ([facility])) 45 units SC QHS [facility] Last Admin: 07/25/19 22:20 Dose: 45 u Documented by: Insulin Human Lispro (Humalog Kwikpen ([facility])) 0 unit SC TIDAC [facility]; Protocol Last Admin: 07/26/19 12:22 Dose: 9 u Documented by: Morphine Sulfate () 2 mg IV Q3H PRN PRN PRN Reason: breakthrough pain Ondansetron HCl (Zofran) 4 mg IV Q8H PRN PRN PRN Reason: NAUSEA/VOMITING Oxycodone HCl (Oxyir) 5 mg PO Q4H PRN PRN PRN Reason: Pain Score 4-5/10 Last Admin: 07/26/19 05:28 Dose: 5 mg Documented by: Oxycodone HCl (Oxyir) 10 mg PO Q4H PRN PRN PRN Reason: Pain Score 6-10/10 Last Admin: 07/25/19 21:06 Dose: 10 mg Documented by: Sodium Chloride () 10 - 40 ml IV UD PRN PRN Reason: SALINE FLUSH Last Admin: 07/25/19 21:05 Dose: 20 ml Documented by: Trimethoprim/Sulfamethoxazole (Bactrim Ds) 1 tablet PO BID [facility] Medical Necessity - Tobacco Use Smoking Status: Heavy Smoker (>10/day) Tobacco Use: Cigarettes Assessment/Plan All Active Problems (Last Updated 07/22/19 @ 13:43 by Khadar Casey DO) Pain in right foot (Acute) Sepsis (Acute) Cellulitis of leg (Resolved) History of diabetic neuropathy (Acute) DKA (diabetic ketoacidoses) (Acute) Aerophagia (Acute) Osteomyelitis of foot, right, acute (Acute) 1. Right foot osteomyelitis s/p right foot of tissue debridement and right partial fifth toe ray amputation on 07/23/2019. Patient seen by ID. Vancomycin and Zosyn discontinued. Antibiotic changed to oral Augmentin and Bactrim DS. Recent cultures with MSSA, group B strep, enterococcus and anaerobes. MRSA PCR during this admission was negative. wound and bone cultures: wound culture growing Strep agalactiae, Enterococcus faecalis and Enterobacter cloacae complex ID and podiatry on board arterial studies showed normal bilateral lower ABPI execpt for left posterior tibial at 0.93, consistent with mild occlusive disease Wound VAC prior to discharge. 2. Type 1 diabetes mellitus A1C is 8.8 on lantus 45IU qhs Glucoses is around 250. DVT prophylaxis; lovenox Plan for possible discharge today
--- NOTE | 2019-07-26 14:27 | PCM.DC ---
- Discharge Diagnoses Current Active Problems: Current Active and Chronic Problems (Last Updated 07/22/19 @ 13:43 by Khadar Casey DO) Osteomyelitis of foot, right, acute (Acute) You will use the following diet at home:: Calorie/Carbohydrate Controlled (specify 1200, 1400, etc) - Carb controlled diet Your food should be the consistency of: Regular Discharge Activity: May Not Drive Call your doctor if you observe: Fever of 101 or Higher, Coldness, Increased Pain, Numbness or Tingling, Change in Color, Inability to urinate, Inability to have a bowel movement, Using more than one pad per hour, Shortness of breath, Dizziness, Fainting spells, Swelling in the ankles, Chest pain, Prolonged hiccoughing, Increased palpitations (irregular heartbeat) Allergies/Adverse Reactions: Allergies cefprozil [From Cefzil] Allergy (Unknown, Verified 07/22/19 10:49) Unknown industrial glue Allergy (Unknown, Uncoded 07/22/19 10:49) Unknown Medications to take at Discharge Duloxetine Hcl [Cymbalta] 30 mg PO DAILY 07/22/19 Amox/Clavulanate Tablet [Augmentin Tablet] 875 mg PO Q12H 39 Days #78 tab 07/26/19 Insulin Glargine,Hum.rec.anlog [Basaglar Kwikpen U-100] 50 unit SQ QHS #0 07/26/19 Insulin Lispro [Humalog KwikPen] See Protocol SUBCUT TIDAC insuln.pen 07/26/19 Smz/Tmp Ds [Bactrim Ds] 1 tab PO BID 39 Days #78 tab 07/26/19 The following prescriptions were given: Amox/Clavulanate Tablet [Augmentin Tablet] 875 mg PO Q12H 39 Days #78 tab Transmission Status: Received by [facility] Smz/Tmp Ds [Bactrim Ds] 1 tab PO BID 39 Days #78 tab Transmission Status: Received by [facility] Primary Care Physician: Magdiel Hurst MD [Primary Care Provider] - Please follow up with your Primary Care Physician in: IN 2 week Test Results: Test results from this visit will be discussed in further detail at your follow-up appointment, if applicable. Please Follow Up With: Chandra Eddy DPM When: in 1 week wound center Please Follow Up With: Deangelo Arroyo MD When: in 2 weeks with weekly CBC, BMP
[2019-07-26] MEDS: Amox/Clavulanate 875 MG Tablet PO (14:29)
[2019-07-26] MEDS: Smz/Tmp Ds Tablet 1 TABLET PO (14:29)
--- NOTE | 2019-07-26 14:30 | PCM.DC.SUM ---
Discharge Date and Diagnosis Date of Admission: 07/22/19 Date of Discharge: 07/26/19 - Primary Discharge Diagnosis Active and Suspected Problems (Last Updated 07/22/19 @ 13:43 by Khadar Casey DO) Osteomyelitis of foot, right, acute (Acute) - Secondary Discharge Diagnosis Chronic Problems (Last Updated 07/22/19 @ 13:43 by Khadar Casey DO) Diabetes mellitus type 2, uncontrolled, with complications (Chronic) Ulcer of right foot with fat layer exposed (Chronic) Diabetes mellitus type 1 (Chronic) Delayed wound healing (Chronic) Chronic ulcer of left foot with fat layer exposed (Chronic) Ulcer of right lower extremity with fat layer exposed (Chronic) Hospital Course and Treatment Consultations 07/22/19 14:25 Consult: Onc/Wound/heel nail rasper Routine Comment: Operations: None Summary of Care Provided: The patient is a 34 year old M with history of type 1 diabetes was admitted with nonhealing wound on the lateral margin of of right foot. Patient blood sugar is uncontrolled. Patient was admitted [facility] floor. Patient had right foot soft tissue debridement and right partial fifth toe amputation on 07/23/2019. Initially patient was on IV antibiotic vancomycin and Zosyn which was changed to oral Augmentin and Bactrim DS. Recent cultures with MSSA, group B strep, enterococcus and anaerobes. MRSA PCR during this admission was negative. Wound and bone cultures: wound culture growing Strep agalactiae, Enterococcus faecalis and Enterobacter cloacae complex .she was seen by ID and courtesy booth cashier . Arterial studies showed normal bilateral lower ABPI execpt for left posterior tibial at 0.93, consistent with mild occlusive disease Wound VAC to be placed prior to discharge. Blood sugar was controlled. Lantus was increased to 50 units subcutaneous at bedtime daily. Patient on sliding scale short-acting insulin. Discharge medication reconciliation done. Discharge follow-up instructions completed. Discharge process discussed with the patient and all questions were answered to patient's satisfaction. Total time spent, exact 35 minutes on discharge meds reconciliation, examination, review of imaging and blood test and discussion with the patient on follow-up instructions. [] Subjective: Please see progress note of today. - Physical Exam Vitals/I&O's: Vital Signs Temp Pulse Resp BP Pulse Ox 97.8 F 89 18 105/68 98 07/26/19 09:07 07/26/19 09:07 07/26/19 09:07 07/26/19 09:07 07/26/19 09:07 Oxygen Delivery Method Room Air Weight: 195 lb Body Mass Index (BMI) 27.1 Finger Stick Blood Glucose 133 Intake and Output for Last 24 Hours 07/24/19 07/25/19 07/26/19 23:59 23:59 23:59 Intake Total 2980 / 2980 1650 / 1650 1440 / 1440 Balance 2980 / 2980 1650 / 1650 1440 / 1440 Microbiology Past 72 Hours 07/23/19 15:03 Tissue - Other Gram Stain - Final 07/23/19 15:03 Tissue - Other Wound Culture - Final No growth aerobically. 07/23/19 15:03 Tissue - Other Anaerobic Culture - Preliminary Checking for anaerobes, further studies to follow. 07/23/19 15:00 Tissue - Other Gram Stain - Final 07/23/19 15:00 Tissue - Other Wound Culture - Final Streptococcus agalactiae (B) 07/23/19 15:00 Tissue - Other Anaerobic Culture - Preliminary Checking for anaerobes, further studies to follow. 07/22/19 14:30 Wound - No Site/Description Given Gram Stain - Final 07/22/19 14:30 Wound - No Site/Description Given Wound Culture - Final Streptococcus agalactiae (B) Enterococcus faecalis Enterobacter cloacae complex 07/22/19 14:30 Wound - No Site/Description Given Anaerobic Culture - Final No anaerobic bacteria isolated. 07/22/19 11:40 Blood Culture (Wb) - Left Wrist Blood Culture - Preliminary No growth in 48 hours. 07/22/19 11:40 Blood Culture (Wb) - Anticubital Left Blood Culture - Preliminary No growth in 48 hours. Laboratory Results 07/25/19 16:21: POC Glucose 252 H 07/25/19 21:27: POC Glucose 315 H 07/26/19 05:10: WBC 10.4, RBC 5.10, Hgb 14.7, Hct 44.0, MCV 86.3, MCH 28.8, MCHC 33.4, RDW Std Deviation 37.2, RDW Coeff of Sharon 11.8, Plt Count 372, MPV 8.8, Immature Gran % (Auto) 2.200 H, Neut % (Auto) 61.7, Lymph % (Auto) 24.7, [place] % (Auto) 8.2, Eos % (Auto) 2.3, Baso % (Auto) 0.9, Absolute Neuts (auto) 6.4, Absolute Lymphs (auto) 2.57, Nucleated RBC % 0 07/26/19 05:10: Sodium 134 L, Potassium 4.2, Chloride 99, Carbon Dioxide 31.0, Anion Gap 4 L, BUN 21 H, Creatinine 1.00, Estim Creat Clear Calc 110.86, Est GFR (MDRD) Af Amer 110, Est GFR (MDRD) Non-Af 91, BUN/Creatinine Ratio 21.0 H, Glucose 213 H, Calcium 9.5 07/26/19 06:42: POC Glucose 247 H 07/26/19 12:22: POC Glucose 267 H Current Medications Acetaminophen (Tylenol) 650 mg PO Q6H PRN PRN PRN Reason: Pain Score 1-3/Temp > 100.7 F Last Admin: 07/26/19 05:28 Dose: 650 mg Documented by: Amoxicillin/Clavulanate Potassium (Augmentin Tablet) 875 mg PO BID [facility] Last Admin: 07/26/19 14:29 Dose: 875 mg Documented by: Enoxaparin Sodium (Lovenox) 40 mg SC DAILY [facility] Last Admin: 07/26/19 09:18 Dose: 40 mg Documented by: Glucagon () 1 mg IM .X1 PRN PRN Reason: Hypoglycemia Dextrose (Dextrose 10%-Water) 250 mls @ 999 mls/hr IV .Q16M PRN; Protocol PRN Reason: HYPOGLYCEMIA Sodium Chloride () 250 mls @ 15 mls/hr IV .[id number] PRN PRN Reason: Saline Flush Sodium Chloride () 250 mls @ 15 mls/hr IV .[id number] PRN PRN Reason: Additional IVPB Infusion Insulin Glargine (Lantus ([facility])) 45 units SC QHS [facility] Last Admin: 07/25/19 22:20 Dose: 45 u Documented by: Insulin Human Lispro (Humalog Kwikpen ([facility])) 0 unit SC TIDAC [facility]; Protocol Last Admin: 07/26/19 12:22 Dose: 9 u Documented by: Morphine Sulfate () 2 mg IV Q3H PRN PRN PRN Reason: breakthrough pain Ondansetron HCl (Zofran) 4 mg IV Q8H PRN PRN PRN Reason: NAUSEA/VOMITING Oxycodone HCl (Oxyir) 5 mg PO Q4H PRN PRN PRN Reason: Pain Score 4-5/10 Last Admin: 07/26/19 05:28 Dose: 5 mg Documented by: Oxycodone HCl (Oxyir) 10 mg PO Q4H PRN PRN PRN Reason: Pain Score 6-10/10 Last Admin: 07/25/19 21:06 Dose: 10 mg Documented by: Sodium Chloride () 10 - 40 ml IV UD PRN PRN Reason: SALINE FLUSH Last Admin: 07/25/19 21:05 Dose: 20 ml Documented by: Trimethoprim/Sulfamethoxazole (Bactrim Ds) 1 tablet PO BID [facility] Last Admin: 07/26/19 14:29 Dose: 1 tablet Documented by: Discharge Activity: May Not Drive Call your doctor if you observe: Fever of 101 or Higher, Coldness, Increased Pain, Numbness or Tingling, Change in Color, Inability to urinate, Inability to have a bowel movement, Using more than one pad per hour, Shortness of breath, Dizziness, Fainting spells, Swelling in the ankles, Chest pain, Prolonged hiccoughing, Increased palpitations (irregular heartbeat) Home Medications: Medications to take at Discharge Duloxetine Hcl [Cymbalta] 30 mg PO DAILY 07/22/19 Amox/Clavulanate Tablet [Augmentin Tablet] 875 mg PO Q12H 39 Days #78 tab 07/26/19 Insulin Glargine,Hum.rec.anlog [Basaglar Kwikpen U-100] 50 unit SQ QHS #0 07/26/19 Insulin Lispro [Humalog KwikPen] See Protocol SUBCUT TIDAC insuln.pen 07/26/19 Smz/Tmp Ds [Bactrim Ds] 1 tab PO BID 39 Days #78 tab 07/26/19 Following Prescrptions Were Given to Patient: Amox/Clavulanate Tablet [Augmentin Tablet] 875 mg PO Q12H 39 Days #78 tab Transmission Status: Received by [facility] Smz/Tmp Ds [Bactrim Ds] 1 tab PO BID 39 Days #78 tab Transmission Status: Received by [facility] Primary Care Physician: Magdiel Hurst MD [Primary Care Provider] - Please follow up with your Primary Care Physician in: IN 2 week Please Follow Up With: Chandra Eddy DPM When: in 1 week wound center Please Follow Up With: Deangelo Arroyo MD When: in 2 weeks with weekly CBC, BMP Medical Necessity - Tobacco Use Smoking Status: Heavy Smoker (>10/day) Tobacco Use: Cigarettes Meaningful Use Info Meaningful Use Diagnoses (Choose all that apply): None applicable Code Visit Inpatient E&M: 51579 Disch Hosp
[2019-07-26 14:33] VITALS: BP 115/69; PULSE 90; RESP 14; TEMP 36.7; O2SAT 100
--- NOTE | 2019-07-26 14:38 | CASEMGMT ---
ANNIA WRIGHT updated that patient will have wound vac at discharge. ANNIA WRIGHT in to discuss HHC agencies with patient. Patient provided with list of HHC. Patient would like [facility]. ANNIA WRIGHT discussed message left with [facility] and no return call. RN KYLE discuss knee walker not normally covered by insurance. Patient states that he is borrowing friend knee walker till he gets in contact with [facility]. Patient has been using [facility] at [facility] and would like [facility] for at discharge. ANNIA WRIGHT provided list of DME and would like [facility]. Script received and referral sent to [facility]. ANNIA WRIGHT sent referral to [facility] and awaiting acceptance.
--- NOTE | 2019-07-26 14:49 | NURSING ---
wound photo: right lateral foot s/p partial 5th ray amputation
--- NOTE | 2019-07-26 14:52 | PCM.PN.ID ---
Patient Problems: Active and Suspected Problems (Last Updated 07/22/19 @ 13:43 by Khadar Casey DO) Osteomyelitis of foot, right, acute (Acute) Subjective: Feeling well, no fever, mild loose stool, no abd pain. - Physical Exam Vitals/I&O's: Vital Signs Temp Pulse Resp BP Pulse Ox 98.1 F 90 14 115/69 100 07/26/19 14:33 07/26/19 14:33 07/26/19 14:33 07/26/19 14:33 07/26/19 14:33 Oxygen Delivery Method Room Air Weight: 88.451 kg Body Mass Index (BMI) 27.1 Finger Stick Blood Glucose 133 Intake and Output for Last 24 Hours 07/24/19 07/25/19 07/26/19 23:59 23:59 23:59 Intake Total 2980 / 2980 1650 / 1650 1440 / 1440 Balance 2980 / 2980 1650 / 1650 1440 / 1440 General: Alert, Cooperative, No apparent distress Lungs: Clear to auscultation, Normal air movement Cardiovascular: Regular rate, Regular Rhythm Abdomen: Soft, Non Tender, Non-Distended Skin: Ulcer/ Wound - reviewed photo Microbiology Past 72 Hours 07/23/19 15:03 Tissue - Other Gram Stain - Final 07/23/19 15:03 Tissue - Other Wound Culture - Final No growth aerobically. 07/23/19 15:03 Tissue - Other Anaerobic Culture - Preliminary Checking for anaerobes, further studies to follow. 07/23/19 15:00 Tissue - Other Gram Stain - Final 07/23/19 15:00 Tissue - Other Wound Culture - Final Streptococcus agalactiae (B) 07/23/19 15:00 Tissue - Other Anaerobic Culture - Preliminary Checking for anaerobes, further studies to follow. 07/22/19 14:30 Wound - No Site/Description Given Gram Stain - Final 07/22/19 14:30 Wound - No Site/Description Given Wound Culture - Final Streptococcus agalactiae (B) Enterococcus faecalis Enterobacter cloacae complex 07/22/19 14:30 Wound - No Site/Description Given Anaerobic Culture - Final No anaerobic bacteria isolated. 07/22/19 11:40 Blood Culture (Wb) - Left Wrist Blood Culture - Preliminary No growth in 48 hours. 07/22/19 11:40 Blood Culture (Wb) - Anticubital Left Blood Culture - Preliminary No growth in 48 hours. Laboratory Results 07/25/19 16:21: POC Glucose 252 H 07/25/19 21:27: POC Glucose 315 H 07/26/19 05:10: WBC 10.4, RBC 5.10, Hgb 14.7, Hct 44.0, MCV 86.3, MCH 28.8, MCHC 33.4, RDW Std Deviation 37.2, RDW Coeff of Sharon 11.8, Plt Count 372, MPV 8.8, Immature Gran % (Auto) 2.200 H, Neut % (Auto) 61.7, Lymph % (Auto) 24.7, [place] % (Auto) 8.2, Eos % (Auto) 2.3, Baso % (Auto) 0.9, Absolute Neuts (auto) 6.4, Absolute Lymphs (auto) 2.57, Nucleated RBC % 0 07/26/19 05:10: Sodium 134 L, Potassium 4.2, Chloride 99, Carbon Dioxide 31.0, Anion Gap 4 L, BUN 21 H, Creatinine 1.00, Estim Creat Clear Calc 110.86, Est GFR (MDRD) Af Amer 110, Est GFR (MDRD) Non-Af 91, BUN/Creatinine Ratio 21.0 H, Glucose 213 H, Calcium 9.5 07/26/19 06:42: POC Glucose 247 H 07/26/19 12:22: POC Glucose 267 H Current Medications Acetaminophen (Tylenol) 650 mg PO Q6H PRN PRN PRN Reason: Pain Score 1-3/Temp > 100.7 F Last Admin: 07/26/19 05:28 Dose: 650 mg Documented by: Amoxicillin/Clavulanate Potassium (Augmentin Tablet) 875 mg PO BID [facility] Last Admin: 07/26/19 14:29 Dose: 875 mg Documented by: Enoxaparin Sodium (Lovenox) 40 mg SC DAILY [facility] Last Admin: 07/26/19 09:18 Dose: 40 mg Documented by: Glucagon () 1 mg IM .X1 PRN PRN Reason: Hypoglycemia Dextrose (Dextrose 10%-Water) 250 mls @ 999 mls/hr IV .Q16M PRN; Protocol PRN Reason: HYPOGLYCEMIA Sodium Chloride () 250 mls @ 15 mls/hr IV .[id number] PRN PRN Reason: Saline Flush Sodium Chloride () 250 mls @ 15 mls/hr IV .[id number] PRN PRN Reason: Additional IVPB Infusion Insulin Glargine (Lantus ([facility])) 45 units SC QHS [facility] Last Admin: 07/25/19 22:20 Dose: 45 u Documented by: Insulin Human Lispro (Humalog Kwikpen ([facility])) 0 unit SC TIDAC [facility]; Protocol Last Admin: 07/26/19 12:22 Dose: 9 u Documented by: Morphine Sulfate () 2 mg IV Q3H PRN PRN PRN Reason: breakthrough pain Ondansetron HCl (Zofran) 4 mg IV Q8H PRN PRN PRN Reason: NAUSEA/VOMITING Oxycodone HCl (Oxyir) 5 mg PO Q4H PRN PRN PRN Reason: Pain Score 4-5/10 Last Admin: 07/26/19 05:28 Dose: 5 mg Documented by: Oxycodone HCl (Oxyir) 10 mg PO Q4H PRN PRN PRN Reason: Pain Score 6-10/10 Last Admin: 07/25/19 21:06 Dose: 10 mg Documented by: Sodium Chloride () 10 - 40 ml IV UD PRN PRN Reason: SALINE FLUSH Last Admin: 07/25/19 21:05 Dose: 20 ml Documented by: Trimethoprim/Sulfamethoxazole (Bactrim Ds) 1 tablet PO BID [facility] Last Admin: 07/26/19 14:29 Dose: 1 tablet Documented by: Medical Necessity - Tobacco Use Smoking Status: Heavy Smoker (>10/day) Tobacco Use: Cigarettes Route of nutrition/ use of supplements: [] Nutritional Intake: [] IV Site: [] [place] Catheter: [] - Assessment/Plan Antibiotics: [] Assessment/Plan: [] Active and Suspected Problems (Last Updated 07/22/19 @ 13:43 by Khadar Casey DO) Osteomyelitis of foot, right, acute (Acute) R foot osteo - recent cx with mssa, GBS, enterococcus, anaerobes. Tolerated zosyn 07/22/19 and 04/15/19. S/p OR 07/[address] Eddy. Surg cx with GBS, efaecalis, enterobacter. Ok for d/c home on 6 weeks po bactrim and augmentin. CBC, bmp, and esr in one week. Wrote rx for labs and abx. Will follow, will see at wound center in 2 weeks.
--- NOTE | 2019-07-26 15:42 | CASEMGMT ---
ANNIA WRIGHT received call back that patient has been accepted by [facility]. ANNIA WRIGHT updated the patient. Patient voiced no other concerns or needs at this time.
--- NOTE | 2019-07-27 13:40 | CASEMGMT ---
ANNIA WRIGHT LA PHONE CALL DC DATE: 07.26.2019 DC Disposition: Home with [facility] Diagnosis on Discharge: osteomylitis foot LACE/STRATA:16/4 Intro role of CM to patient. Pt states he asked a lot of questions prior to leaving hospital and of pharmacy. No further questions. Is aware of f/u with wound center and with Dr. Arroyo. [facility] for wound vac changes. Call to [facility] and pt is in their system with Intake working on his file. No further questions and no concerns voiced by pt. Haydee COLÓNN RN ACM
== END 2019-07-26 16:25 | disposition home health service (06) | DRG 305 ==
LOC: ED 13:27 → MS3 13:43
PROVIDERS: Anesthesiology; Podiatrist; Student in an Organized Health Care Education/Training Program; Emergency Provider Emergency Medicine; Family Provider Internal Medicine; PCP Internal Medicine; Visit Provider Internal Medicine
PROC: 0Y6M0ZF Detachment at Right Foot, Partial 5th Ray, Open Approach (ICD-10-PCS; principal; 2019-07-23 07:15)
DX: E10.69 Type 1 diabetes mellitus with other specified complication (principal); M86.171 Other acute osteomyelitis, right ankle and foot; E10.621 Type 1 diabetes mellitus with foot ulcer; E10.42 Type 1 diabetes mellitus with diabetic polyneuropathy; E10.65 Type 1 diabetes mellitus with hyperglycemia; B95.1 Streptococcus, group B, as the cause of diseases classified elsewhere; L03.115 Cellulitis of right lower limb; B95.2 Enterococcus as the cause of diseases classified elsewhere; B96.89 Other specified bacterial agents as the cause of diseases classified elsewhere; L84 Corns and callosities; F17.210 Nicotine dependence, cigarettes, uncomplicated; Z79.4 Long term (current) use of insulin; L02.611 Cutaneous abscess of right foot; L97.512 Non-pressure chronic ulcer of other part of right foot with fat layer exposed; M79.671 Pain in right foot; Z91.19 Patient's noncompliance with other medical treatment and regimen
CPT/HCPCS: 11042; 36415; 73630; 73718; 80048; 80053; 82962; 83036; 85025; 85652; 86140; 87015; 87040; 87070; 87075; 87077; 87102; 87116; 87186; 87205; 87206; 87640; 88304; 88305; 88311; 93922; 97802; 99284; J7030; J7040; A4216

== ENCOUNTER 2019-07-29 08:30 | Outpatient (RCR) | payer MEDICAID, SELFPAY ==
[2019-07-14 00:39] VITALS: BP 130/85; PULSE 97; RESP 16; TEMP 36.4
[2019-07-15 10:54] VITALS: RESP 18; TEMP 38.2; BMI 26.5
--- NOTE | 2019-07-15 12:37 | PCM.WC.PN ---
(1) Ulcer of right foot with fat layer exposed Status: Chronic Current Visit: No Code(s): L97.512 - Non-pressure chronic ulcer of other part of right foot with fat layer exposed (2) Pain in right foot Status: Acute Current Visit: No Code(s): M79.671 - Pain in right foot (3) Delayed wound healing Status: Chronic Current Visit: No Code(s): T14.8XXD - Other injury of unspecified body region, subsequent encounter (4) Diabetes mellitus type 1 Status: Chronic Current Visit: No Code(s): E10.9 - Type 1 diabetes mellitus without complications Type of Wound Date of Service: 07/15/19 Chief Complaint: right plantar foot ulcer and right leg ulcer History of Wound: This 33-year-old diabetic male presents to the wound healing center for ulcer sub-right fifth metatarsal head that he states re-opened about 10 days ago. He says he had been trying to trim a callus in the area on his own and made the area very slightly bleed and it has very slowly worsened over the last 10 days. He says he tried to use old dressing supplies and keep the area offloaded, but he says he was not noticing any improvement. He says he knows he made a mistake by again failing to be fitted for diabetic shoes once he was healed 6 months ago. He denies any purulence, surrounding or extending redness, or increase in warmth. Progress of Wound: Patient returns to clinic today for right plantar lateral foot ulcer. Patient states the foot is more tender this week however he feels this has been improving slowly over the last couple of days since he just recently started Linezolid. He says he feels that his foot started to get worse over last Friday when he helped his sister move. He says he knows he should have been off his foot and that he went against the orders. He feels since starting the new antibiotic late Friday that he has noticed a decrease in tenderness as well as some of the slight redness to his foot. Patient currently denies any purulence to the area or any malodor. Patient currently denies any feelings of nausea, vomiting, fever, chills. - Physical Exam Vital Signs Temp Pulse Resp BP 100.7 F H 97 18 130/85 H 07/15/19 10:54 07/14/19 00:39 07/15/19 10:54 07/14/19 00:39 General: Alert, Oriented x3, Cooperative, No apparent distress Extremities: No cyanosis, Capillary Refill Less than 3 Seconds, No Calf Tenderness - Negative Sean and Sanders signs bilateral, Edema - Very minor lower extremity edema, Peripheral Pulses Normal - DP and PT pulses palpable bilateral Skin: Ulcer/ Wound - Ulcer to right foot sub 5th met head with fat layer exposed. Ulcer larger than last week. The base is noted to be a mixture of adherent slough, fibrin, devitalized subcutaneous tissue, granular tissue, as well as some slight surrounding hyperkeratotic tissue again this week. There is no probing to bone. No purulence, no streaking cellulitis, no significant increase in warmth. There is some slight surrounding erythema to the foot that patient states is been improving ever since starting his antibiotic late Friday. Wound Measurements and Assessment WC - Nurse 1 - General Ulcer Measurement Start: 07/15/19 10:54 Freq: Status: Active Protocol: Activity Type Activity Date Activity User E-Sign Co-Sign Detail Recorded Client Recorded Date Recorded By Document 07/15/19 10:54 [facility] [id number] 07/15/19 11:02 [facility] 07/15/19 10:54 Wound Center Nurse 1 [Ulcer Assessment] #4 Lateral Right Plantar Foot -Combined with other wound No -Current Size (cm) - Length 2 -Current Size (cm) - Width 2.6 -Current Size (cm) - Depth 0.2 -Total Square Cm 5.2 -Photo Taken No -Epithelialization None Present -Tunneling No -Undermining/Tunneling No -Circular Undermining No -Exudate Amt Small -Exudate Type Serosanguineous -Wound Margin Distinct, Outline Attached -Granulation Amt None Present (0 %) -Slough/Fibrin Yes -Necrosis Amt Large (67-100%) -Necrotic Tissue Type Eschar -Texture (Yu-wound Skin Appearance) Assessed, Localized Edema ,Scarring -Moisture (Yu-wound Skin Appearance Assessed ) -Color (Yu-wound Skin Appearance) Assessed, Erythema -Temperature (Yu-wound Skin No Abnormality Appearance) (Pt Warm) -Tenderness on Palpation (Yu-wound Yes Skin Appearance) -Ulcer Cleansing soapy water -Foul Odor after Cleansing No -Anesthetic Used 5% Lidocaine Gel WC - Nurse 2 - General Ulcer CM Notes Start: 07/15/19 10:54 Freq: Status: Active Protocol: Activity Type Activity Date Activity User E-Sign Co-Sign Detail Recorded Client Recorded Date Recorded By Document 07/15/19 11:12 DV [id number] 07/15/19 11:22 DV 07/15/19 11:12 Wound Center Nurse 2 [Procedure/Treatment] -Time 11:14 -Correct Patient Yes -Correct Side, Site, Position Yes -Correct Procedure Yes -Procedure Performed Yes -Type of Procedure Debridement -Clinical Debridement Subcutaneous -Post Debridement Size (cm) - Length 2.5 -Post Debridement Size (cm) - Width 2.4 -Post Debridement Size (cm) - Depth 0.4 -Total Square Cm 6.00 -Wound/Ulcer Outcome Not Healed -Ulcer Cleansing Rinsed/ Irrigated with Saline -Foul Odor after Cleansing No -Bioengineered Tissue No -Bleeding Controlled with Pressure -Offloading No -Type of Offloading Surgical Shoe -Treatment Response Procedure Not Tolerated Well [See Physician Procedure note for Specifics] Pain Scale: 0-10 Numeric [Pain] -Is Patient Pain Free? No [Location] Lateral Right Plantar -Description Sharp,Throbbing ,Crushing, Aching,Pressure -Intensity 10 Query Text:If >3, intervention needed -Duration (hours) Acute -Pain Behavior Moaning, Guarding, Irritability, Withdrawal from Touch, Perspiration, Facial Grimacing -Pain Aggravating Factors ADL's,Stair Climbing, Changing Position, Standing, Debridement -Alleviating Factors/Interventions Medication, Distraction, Will continue to monitor, Emotional Support -Effectiveness of Alleviating Factor/ Moderately Intervention effective Musculoskeletal: Tenderness - Some tenderness with manipulation of ulcer site Neurological: Sensory exam intact to light touch and pain - With some altered sensation to bilateral feet consistent with patient's diabetic neuropathy status Psych/Mental Status: Normal Affect, Appropriate Debridement Note Post-Debridement Measurements/Treatment WC - Nurse 2 - General Ulcer CM Notes Start: 07/15/19 10:54 Freq: Status: Active Protocol: Activity Type Activity Date Activity User E-Sign Co-Sign Detail Recorded Client Recorded Date Recorded By Document 07/15/19 11:12 DV [id number] 07/15/19 11:22 DV 07/15/19 11:12 Wound Center Nurse 2 #4 Lateral Right Plantar Foot -Time 11:14 -Correct Patient Yes -Correct Side, Site, Position Yes -Correct Procedure Yes -Procedure Performed Yes -Type of Procedure Debridement -Clinical Debridement Subcutaneous -Post Debridement Size (cm) - Length 2.5 -Post Debridement Size (cm) - Width 2.4 -Post Debridement Size (cm) - Depth 0.4 -Total Square Cm 6.00 -Wound/Ulcer Outcome Not Healed -Ulcer Cleansing Rinsed/ Irrigated with Saline -Foul Odor after Cleansing No -Bioengineered Tissue No -Bleeding Controlled with Pressure -Offloading No -Type of Offloading Surgical Shoe -Treatment Response Procedure Not Tolerated Well Pain Scale: 0-10 Numeric Is Patient Pain Free? No Lateral Right Plantar -Description Sharp,Throbbing ,Crushing, Aching,Pressure -Intensity 10 Query Text:If >3, intervention needed -Duration (hours) Acute -Pain Behavior Moaning, Guarding, Irritability, Withdrawal from Touch, Perspiration, Facial Grimacing -Pain Aggravating Factors ADL's,Stair Climbing, Changing Position, Standing, Debridement -Alleviating Factors/Interventions Medication, Distraction, Will continue to monitor, Emotional Support -Effectiveness of Alleviating Factor/ Moderately Intervention effective Wound debrided: Right sub-fifth metatarsal head Laterality: Right Type of Debridement: Excisional debridement Anesthesia Used: 4% Lidocaine Solution Depth: in the subcutaneous layer Percentage of wound debrided: 100 Instrument Used: 3mm curette, - - Tissue nipper Tissue Removed: Devitalized subcutaneous tissue, adherent slough, fibrin, biofilm Severity: Fat Layer Exposed Amount of bleeding with debridement: Mild Bleeding Controlled with: Pressure Patient tolerated procedure well Assessment/Plan Assessment: Ulcer right sub-fifth met head. Ulcer right leg. DM Plan: Patient was examined and evaluated again today for ulcer to right plantar lateral foot with his present today for exam. Ulcer to right plantar foot appears to be a little larger again this week. Patient admits to being noncompliant with keeping pressure off of his ulcer site and states that he was very active on Friday and helped his sister move at which time he feels he made the ulcer slightly worse and has noticed some tenderness to the area since then. He says he knows he should not have done it but he did it anyways. Another subcutaneous excisional debridement was performed as noted in the clinical panel to the ulcer site. Cultures were then taken of ulcer site last week at his visit and patient just started Linezolid on Friday evening. He says he has noticed improvement since starting the medication. The ulcer site was carefully cleansed and then dressed with aquacel ag to the sub-fifth met ulcer site followed by dry sterile dressing. The importance of continued offloading was discussed at great length again today. Patient is to have no shoe or boot to the area and is to keep the area completely offloaded with assistance of cruthces or knee roller. I did stress the importance of the patient being off of work and he is in agreement with this plan today. I continue to recommended nutritional supplementation with a high-protein diet in order to optimize wound healing potential for this patient. Importance of tight glycemic control was stressed to the patient today. Smoking cessation was discussed with this patient today. Patient was educated on all signs and symptoms of local and systemic infection, and he was instructed to go to the emergency room immediately should he notice any. All other questions were answered to the patient's satisfaction. Patient will follow-up in clinic in 1 week to check on progress, or sooner if needed.
[2019-07-22 09:24] VITALS: BP 123/70; PULSE 104; RESP 16; TEMP 36.6; BMI 26.5
--- NOTE | 2019-07-22 11:15 | PCM.WC.PN ---
(1) Ulcer of right foot with fat layer exposed Status: Chronic Current Visit: No Code(s): L97.512 - Non-pressure chronic ulcer of other part of right foot with fat layer exposed (2) Pain in right foot Status: Acute Current Visit: No Code(s): M79.671 - Pain in right foot (3) Delayed wound healing Status: Chronic Current Visit: No Code(s): T14.8XXD - Other injury of unspecified body region, subsequent encounter (4) Diabetes mellitus type 1 Status: Chronic Current Visit: No Code(s): E10.9 - Type 1 diabetes mellitus without complications Type of Wound Date of Service: 07/22/19 Chief Complaint: right plantar foot ulcer and right leg ulcer History of Wound: This 33-year-old diabetic male presents to the wound healing center for ulcer sub-right fifth metatarsal head that he states re-opened about 10 days ago. He says he had been trying to trim a callus in the area on his own and made the area very slightly bleed and it has very slowly worsened over the last 10 days. He says he tried to use old dressing supplies and keep the area offloaded, but he says he was not noticing any improvement. He says he knows he made a mistake by again failing to be fitted for diabetic shoes once he was healed 6 months ago. He denies any purulence, surrounding or extending redness, or increase in warmth. Progress of Wound: Patient returns to clinic today for right plantar lateral foot ulcer. Cellulitis has slightly improved and is now localized around ulcer site to distal lateral foot. Ulcer site itself looks worse this week with some purulent drainage appreciated. Patient currently denies any feelings of nausea, vomiting, fever, chills. - Physical Exam Vital Signs Temp Pulse Resp BP 98 F 104 H 16 123/70 H 07/22/19 09:24 07/22/19 09:24 07/22/19 09:24 07/22/19 09:24 General: Alert, Oriented x3, Cooperative, No apparent distress Extremities: No cyanosis, Capillary Refill Less than 3 Seconds, No Calf Tenderness - Negative Sean and Sanders signs bilateral, Edema - Very minor lower extremity edema, Peripheral Pulses Normal - DP and PT pulses palpable bilateral Skin: Ulcer/ Wound - Ulcer to right foot sub 5th met head. Ulcer larger than last week. The base is noted to have more necrotic, non viable, as well as some infected appearing soft tissue to ulcer site this week and less granular tissue. The site feels as though it probes to bone this week. There was also a decent amount of purulent drainage able to be milked from the ulcer site. There was some tracking distally. Some tenderness noted to the ulcer site as well as to the plantar foot.slight increase in warmth as well as localized erythema/cellulitis. Wound Measurements and Assessment WC - Nurse 1 - General Ulcer Measurement Start: 07/15/19 10:54 Freq: Status: Active Protocol: Activity Type Activity Date Activity User E-Sign Co-Sign Detail Recorded Client Recorded Date Recorded By Document 07/22/19 09:24 [id number] 07/22/19 09:26 CS 07/22/19 09:24 Wound Center Nurse 1 [Ulcer Assessment] #4 Lateral Right Plantar Foot -Combined with other wound No -Current Size (cm) - Length 1.8 -Current Size (cm) - Width 2.1 -Current Size (cm) - Depth 0.2 -Total Square Cm 3.78 -Photo Taken No -Epithelialization None Present -Tunneling No -Undermining/Tunneling No -Circular Undermining No -Exudate Amt Medium -Exudate Type Serosanguineous -Wound Margin Distinct, Outline Attached -Granulation Amt Small (1-33%) -Granulation Quality Red -Slough/Fibrin Yes -Necrosis Amt Large (67-100%) -Necrotic Tissue Type Adherent Slough -Texture (Yu-wound Skin Appearance) Assessed, Scarring -Moisture (Yu-wound Skin Appearance Assessed, ) Maceration -Color (Yu-wound Skin Appearance) Assessed,Palor -Temperature (Yu-wound Skin No Abnormality Appearance) (Pt Warm) -Tenderness on Palpation (Yu-wound Yes Skin Appearance) -Ulcer Cleansing Rinsed/ Irrigated with Saline -Foul Odor after Cleansing No -Anesthetic Used 4% Lidocaine Solution - Nurse 2 - General Ulcer CM Notes Start: 07/15/19 10:54 Freq: Status: Active Protocol: Activity Type Activity Date Activity User E-Sign Co-Sign Detail Recorded Client Recorded Date Recorded By Document 07/22/19 10:01 DV [id number] 07/22/19 10:15 DV 07/22/19 10:01 Wound Center Nurse 2 [Procedure/Treatment] -Time 10:03 -Correct Patient Yes -Correct Side, Site, Position Yes -Correct Procedure Yes -Procedure Performed Yes -Type of Procedure Debridement -Clinical Debridement Selective -Post Debridement Size (cm) - Length 2.0 -Post Debridement Size (cm) - Width 2.5 -Post Debridement Size (cm) - Depth 0.7 -Total Square Cm 5.00 -Wound/Ulcer Outcome Not Healed -Ulcer Cleansing Rinsed/ Irrigated with Saline -Foul Odor after Cleansing No -Bioengineered Tissue No -Bleeding Controlled with Pressure -Offloading No -Type of Offloading Surgical Shoe -Treatment Response Procedure Tolerated Well [See Physician Procedure note for Specifics] Pain Scale: 0-10 Numeric [Pain] -Is Patient Pain Free? Yes Musculoskeletal: Tenderness - Some tenderness with ulcer site manipulation and with palpation of plantar foot Neurological: Sensory exam intact to light touch and pain - With some altered sensation to bilateral feet consistent with patient's diabetic neuropathy status Psych/Mental Status: Normal Affect, Appropriate Debridement Note Post-Debridement Measurements/Treatment WC - Nurse 2 - General Ulcer CM Notes Start: 07/15/19 10:54 Freq: Status: Active Protocol: Activity Type Activity Date Activity User E-Sign Co-Sign Detail Recorded Client Recorded Date Recorded By Document 07/15/19 11:12 DV [id number] 07/15/19 11:22 DV Document 07/22/19 10:01 DV [id number] 07/22/19 10:15 DV 07/15/19 07/22/19 11:12 10:01 Wound Center Nurse 2 #4 Lateral Right Plantar Foot -Time 11:14 10:03 -Correct Patient Yes Yes -Correct Side, Site, Position Yes Yes -Correct Procedure Yes Yes -Procedure Performed Yes Yes -Type of Procedure Debridement Debridement -Clinical Debridement Subcutaneous Selective -Post Debridement Size (cm) - Length 2.5 2.0 -Post Debridement Size (cm) - Width 2.4 2.5 -Post Debridement Size (cm) - Depth 0.4 0.7 -Total Square Cm 6.00 5.00 -Wound/Ulcer Outcome Not Healed Not Healed -Ulcer Cleansing Rinsed/ Rinsed/ Irrigated with Irrigated with Saline Saline -Foul Odor after Cleansing No No -Bioengineered Tissue No No -Bleeding Controlled with Pressure Pressure -Offloading No No -Type of Offloading Surgical Shoe Surgical Shoe -Treatment Response Procedure Not Procedure Tolerated Well Tolerated Well Pain Scale: 0-10 Numeric Is Patient Pain Free? No Yes Lateral Right Plantar -Description Sharp,Throbbing ,Crushing, Aching,Pressure -Intensity 10 -Duration (hours) Acute -Pain Behavior Moaning, Guarding, Irritability, Withdrawal from Touch, Perspiration, Facial Grimacing -Pain Aggravating Factors ADL's,Stair Climbing, Changing Position, Standing, Debridement -Alleviating Factors/Interventions Medication, Distraction, Will continue to monitor, Emotional Support -Effectiveness of Alleviating Factor/ Moderately Intervention effective Wound debrided: Right sub-fifth metatarsal head Laterality: Right Type of Debridement: Excisional debridement Anesthesia Used: 4% Lidocaine Solution Depth: in the subcutaneous layer Percentage of wound debrided: 100 Instrument Used: #15 blade, - - Tissue nipper Tissue Removed: Devitalized subcutaneous tissue, infected nonviable necrotic soft tissue Severity: Fat Layer Exposed Amount of bleeding with debridement: Mild Bleeding Controlled with: Pressure Patient tolerated procedure well Assessment/Plan Assessment: Ulcer right sub-fifth met head. Ulcer right leg. DM Plan: Patient was examined and evaluated again today for ulcer to right plantar lateral foot with his present today for exam. Ulcer to right plantar foot appears worse this week than last. There was purulence noted this week as well as probing to bone. Patient states he has tried to stay off of his foot as much as possible with assistance of crutches. He is trying to get approved for knee roller from insurance as well. He has 2 days left of oral linezolid. Another subcutaneous excisional debridement was performed as noted in the clinical panel to the ulcer site. Cultures were then taken of ulcer site again today due to presence of purulence. The ulcer site was carefully cleansed and then dressed with dry sterile dressing. The importance of continued offloading was discussed at great length again today. Due to clinical appearance of ulcer site today, this patient was sent to the ER for further workup for abscess/infection of foot/osteomyelitis. I spoke with ER physician. I continue to recommended nutritional supplementation with a high-protein diet in order to optimize wound healing potential for this patient. Importance of tight glycemic control was stressed to the patient today. Smoking cessation was discussed with this patient today. Patient will follow-up in clinic in 1 week to check on progress, or sooner if needed.
[2019-07-22 18:16] LABS: M R Staph aureus DNA By PCR Negative (Negative); Probe Check PASS; Specimen Processing Control PASS; Staph aureus DNA By PCR POSITIVE (Negative)
== END 2019-08-13 23:59 ==
LOC: WC 08:30
PROVIDERS: Family Provider Internal Medicine; PCP Internal Medicine; Visit Provider Podiatrist
DX: E10.621 Type 1 diabetes mellitus with foot ulcer (principal); L97.512 Non-pressure chronic ulcer of other part of right foot with fat layer exposed; M79.671 Pain in right foot; Z91.19 Patient's noncompliance with other medical treatment and regimen
CPT/HCPCS: 11042; 87070; 87075; 87077; 87186; 87205; 87640

== ENCOUNTER → 2020-05-24 09:25 | Outpatient (CLI) | payer MEDICAID, SELFPAY ==
[2020-02-17 11:30] VITALS: BMI 29.4
[2020-05-24 10:24] LABS: Absolute Neutrophil Count 6.6 X10^3/uL (2.0-7.7); Basophil# 0.04 X10^3/uL; Basophil% 0.4 % (0-1); Eosinophil# 0.11 X10^3/uL; Eosinophils% 1.2 % (0-5); Hematocrit 39.9 % (40-54); Hemoglobin 13.4 g/dL (13.0-16.5); Lymphocyte % 17.4 % (19-41); Mean Corp Hgb Conc 33.6 g/dL (32-36); Mean Corpuscular Hgb 29.1 pg (27.0-32.0); Mean Corpuscular Volume 86.6 fL (80-94); Mean Platelet Vol. 10.4 fl (6.2-12.0); Monocyte# 0.78 X10^3/uL; Monocyte% 8.5 % (0-10); NRBC Flagged by Analyzer 0 % (0-5); Neutrophil # 6.62 X10^3/uL (2.7-7.7); Neutrophil % 72.2 % (47-70); Platelet Count 243 K/mm3 (150-450); RBC Distribution Width CV 11.3 % (11.6-14.6); RBC Distribution Width SD 35.6 fl (35.1-43.9); Red Blood Count 4.61 M/mm3 (4.6-6.2); White Blood Count 9.2 K/mm3 (4.4-11.0)
[2020-05-24 10:54] LABS: ALB/GLOB Ratio 0.9 RATIO (0.9-2.4); AST(SGOT) 17 U/L (15-37); Alanine Aminotransfer ALT/SGPT 26 U/L (16-61); Albumin, Serum 3.4 g/dL (3.2-5.0); Alkaline Phosphatase 134 U/L (45-117); Anion Gap 4 (5-15); BUN 17 mg/dL (7-18); BUN/Creat Ratio 15.6 RATIO (10-20); Calcium,Total 9.2 mg/dL (8.5-10.1); Chloride 102 mmol/L (98-107); Creatinine, Serum 1.09 mg/dL (0.70-1.30); EST Glomerular Filtration Rate 82 mL/min (>60); Est Glom Filt Rate - Afr Amer 99 mL/min (>60); Globulin 3.8 g/dL (2.2-4.2); Glucose 493 mg/dL (74-106); Potassium 4.6 mmol/L (3.5-5.1); Protein, Total 7.2 g/dL (6.4-8.2); Sodium Level 135 mmol/L (136-145)
[2020-05-24 11:28] LABS: Erythrocyte Sedimentation Rate 17 mm/hr (0-15)
== END ==
PROVIDERS: PCP Internal Medicine; Referring Provider Podiatrist; Visit Provider Podiatrist
DX: L03.116 Cellulitis of left lower limb (principal)
CPT/HCPCS: 36415; 80053; 85025; 85652; 87070; 87075; 87077; 87186; 87205

== ENCOUNTER → 2020-07-12 17:57 | Outpatient (CLI) | payer MEDICAID, SELFPAY ==
[2020-02-17 11:30] VITALS: BMI 29.4
== END ==
PROVIDERS: PCP Internal Medicine; Visit Provider Podiatrist
DX: L97.529 Non-pressure chronic ulcer of other part of left foot with unspecified severity (principal)
CPT/HCPCS: 87070; 87075; 87077; 87186; 87205

== ENCOUNTER → 2021-02-16 14:17 | Outpatient (CLI) | payer MEDICAID, SELFPAY ==
[2021-02-16 13:36] VITALS: BMI 32.2
[2021-02-16 15:44] LABS: Microalbumin,Random Urine 14.1 mg/L (NO RANGE EST.); Microalbumin:Creatinine Ratio 6.4 mg/g CRE (<30 mg/g CRE)
[2021-02-16 15:59] LABS: AST(SGOT) 41 U/L (15-37); Alanine Aminotransfer ALT/SGPT 39 U/L (16-61); Albumin, Serum 3.9 g/dL (3.2-5.0); Alkaline Phosphatase 114 U/L (45-117); Anion Gap 5 (5-15); BUN 16 mg/dL (7-18); Chloride 104 mmol/L (98-107); Cholesterol 210 mg/dL (200); Creatinine, Serum 0.94 mg/dL (0.70-1.30); EST Glomerular Filtration Rate 96 mL/min (>60); Est Glom Filt Rate - Afr Amer 117 mL/min (>60); Globulin 3.8 g/dL (2.2-4.2); Glucose 203 mg/dL (74-106); High Density Lipoprotein 42 mg/dL; Potassium 4.3 mmol/L (3.5-5.1); Protein, Total 7.7 g/dL (6.4-8.2); Sodium Level 138 mmol/L (136-145); Thyroid Stim Hormone (TSH) 0.93 uIU/mL (0.358-3.74); Triglycerides 192 mg/dL; Very Low Density Lipoprotein 38 mg/dL (5-40)
== END ==
PROVIDERS: PCP Internal Medicine; Referring Provider Nurse Practitioner Family; Visit Provider Nurse Practitioner Family
DX: E66.09 Other obesity due to excess calories (principal); E10.9 Type 1 diabetes mellitus without complications; Z68.34 Body mass index [BMI] 34.0-34.9, adult
CPT/HCPCS: 36415; 80053; 80061; 82043; 82570; 84443

== ENCOUNTER 2022-11-07 13:45 | Emergency (ER) | payer MEDICAID, SELFPAY ==
[2022-11-07 13:46] VITALS: BP 142/80; PULSE 115; RESP 18; TEMP 36.3; O2SAT 100; BMI 34.2
--- NOTE | 2022-11-07 15:25 | ED.RN ---
pt lwbs 4200
== END 2022-11-07 15:15 | disposition left against medical advice (07) ==
LOC: ED 15:38
PROVIDERS: PCP Internal Medicine
DX: Z53.21 Procedure and treatment not carried out due to patient leaving prior to being seen by health care provider (principal)

== ENCOUNTER → 2023-05-16 | Outpatient (CLI) | payer MEDICAID, SELFPAY ==
[2023-05-16 16:57] LABS: Microalbumin:Creatinine Ratio 8.9 mg/g CRE (<30 mg/g CRE)
[2023-05-16 17:47] LABS: ALB/GLOB Ratio 0.9 RATIO (0.9-2.4); AST(SGOT) 34 U/L (15-37); Alanine Aminotransfer ALT/SGPT 44 U/L (16-61); Albumin, Serum 3.7 g/dL (3.2-5.0); Alkaline Phosphatase 118 U/L (45-117); Anion Gap 7 (5-15); BUN 16 mg/dL (7-18); Calcium,Total 9.1 mg/dL (8.5-10.1); Chloride 105 mmol/L (98-107); Cholesterol 179 mg/dL (200); Creatinine, Serum 1.14 mg/dL (0.70-1.30); EST Glomerular Filtration Rate 76 mL/min (>60); Est Glom Filt Rate - Afr Amer 92 mL/min (>60); Glucose 165 mg/dL (74-106); High Density Lipoprotein 45 mg/dL; Potassium 4.4 mmol/L (3.5-5.1); Protein, Total 7.7 g/dL (6.4-8.2); Sodium Level 137 mmol/L (136-145); Thyroid Stim Hormone (TSH) 1.02 uIU/mL (0.358-3.74); Triglycerides 183 mg/dL; Very Low Density Lipoprotein 37 mg/dL (5-40)
== END | disposition home or self-care (01) ==
LOC: LAB 16:09
PROVIDERS: PCP Internal Medicine; Visit Provider Internal Medicine Endocrinology, Diabetes & Metabolism
DX: E10.40 Type 1 diabetes mellitus with diabetic neuropathy, unspecified (principal); E66.9 Obesity, unspecified
CPT/HCPCS: 36415; 80053; 80061; 82043; 82570; 84443

== ENCOUNTER 2023-08-07 08:42 | Outpatient (RCR) | payer MEDICAID, SELFPAY ==
[2023-08-07 08:51] VITALS: BP 122/75; PULSE 94; RESP 18; TEMP 35.9; BMI 35.9
--- NOTE | 2023-08-07 09:19 | PCM.WC.HP ---
History of Present Illness Date of Service: 08/07/23 Chief Complaint: right plantar foot ulcer and right leg ulcer History of Wound: This 38-year-old diabetic male presents to the wound healing center for a subfourth metatarsal ulceration of the right foot. 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 He states he tried to care for the ulceration for roughly 2 to 3 weeks in which it was not healing and presented to office. In office he did undergo debridement of the site continued offloading in cam boot however did not obtain his dressing supplies and was performing daily changes of wet to dry gauze. He was referred to the wound care center for applications of advanced wound care product. He states no pain secondary to diabetic peripheral polyneuropathy. He denies N/V/F/chills. He denies further complaints. [facility] Medical History Diabetic neuropathy Diabetic retinopathy associated with type 1 diabetes mellitus Type 1 diabetes mellitus Home Medications blood sugar diagnostic (FreeStyle Lite Strips) #150 ea 10/05/21 [Rx Last Taken Unknown] lancets 28 gauge (FreeStyle Lancets) #150 ea 09/06/22 [Rx Last Taken Unknown] FreeStyle Monse 3 Sensor (blood-glucose sensor) #2 ea 04/14/23 [Rx Last Taken Unknown] insulin aspart U-100 100 unit/mL (3 mL) subcutaneous pen (Novolog FlexPen U-100 Insulin aspart) 40 unit (0.4 mL) subcut TID #36 mL 05/08/23 [Rx Last Taken Unknown] insulin glargine 100 unit/mL (3 mL) subcutaneous pen (Lantus Solostar U-100 Insulin) 42 unit (0.42 mL) subcut DAILY #15 mL 05/08/23 [Rx Last Taken Unknown] pen needle, diabetic 32 gauge x 5/32 (BD Ultra-Fine Amy Pen Needle) #200 ea 05/08/23 [Rx Last Taken Unknown] Allergy/AdvReac Type Severity Reaction Status Date / Time cefprozil [From Cefzil] Allergy Unknown Unknown Verified 05/08/23 09:52 Environmental Allergies: Allergy Hives Verified 05/08/23 09:52 Uncoded Family History Father Heart disease Mother Diabetes Other Hypertension Thyroid disorder Surgical History History of amputation of lesser toe of right foot Social History Smoking Status: Former smoker alcohol intake: never substance use type: does not use what type of physical activity do you participate in: other details: Sometimes ROS Constitutional Constitutional: Denies anorexia, change in weight, chills, fatigue or fever(s) Eyes Eyes: Denies blurry vision, change in vision or double vision ENT HEENT: Denies dysphagia, nasal congestion, nasal discharge or sore throat Cardiovascular Cardiovascular: Denies chest pain, claudication or palpitations Respiratory/Chest Respiratory/Chest: Denies cough, shortness of breath at rest or wheezing Gastrointestinal Gastrointestinal: Denies abdominal pain, constipation, diarrhea, nausea or vomiting Genitourinary Genitourinary: Denies dysuria, urinary frequency, urinary hesitancy or urinary urgency Musculoskeletal Musculoskeletal: Denies joint pain, joint stiffness or joint swelling Integumentary Integumentary: Denies lesions, pruritus or rash Neurologic Neurologic: Denies dizziness, numbness or seizures Psychiatric Psychiatric: Denies anxiety or depression Endocrine Endocrinology: Denies cold intolerance, heat intolerance or polyuria Hematologic/Lymphatic Hematologic/Lymphatic: Denies easy bleeding or easy bruising Vital Signs Vital Signs Vital Signs: 08/07/23 08:51 Temperature 96.6 F L Temperature Source Temporal Pulse Rate 94 Respiratory Rate 18 Blood Pressure 122/75 H Blood Pressure Mean 90 Blood Pressure Source Monitor Blood Pressure Position Semi-Fowlers Blood Pressure Location Left Arm Oxygen Delivery Method Room Air Weight Weight: 120.202 kg Body Mass Index (BMI) 35.9 Physical Exam Const alert, oriented x3 and no apparent distress General Appearance: cooperative HEENT normocephalic Eyes Eyes Narrative: Wears glasses General Eye: normal appearance of both eyes Neck General: normal visual inspection Lymph Lymphatic: no lymphadenopathy noted and no lymphedema noted Resp normal respiratory effort Cardio regular rate and regular rhythm Extremity normal capillary refill, no joint enlargement, no calf tenderness and no pedal edema Extremity Narrative: DP and PT pulses palpable right foot. Capillary fill time less than 4 seconds to digits right foot. No pedal edema is noted. Dermatological: Skin is mildly xerotic to the plantar aspect. There is a ulceration subfourth metatarsal head with surrounding hyperkeratotic tissue and healthy appearing granular layer. There is scant serosanguineous drainage. No erythema, no purulent drainage, no malodor, no palpable fluctuance/bogginess noted, no visible abscess formation, no lymphangitic streaking. Musculoskeletal: Muscle strength 5 of 5 age-appropriate. Partial fifth ray amputation is noted to the right foot. Decreased range of motion of the ankle joint in dorsiflexion with the knee extended without pain or crepitus. Decreased range of motion of the first metatarsophalangeal joint without pain or crepitus. Skin no rashes or lesions noted, skin turgor normal and no jaundice Neuro moves all extremities Neuro Narrative: Decreased protective sensation secondary to diabetic peripheral polyneuropathy Debridement Note Debridement Note Wound debrided: Subfourth metatarsal head Laterality: Right Wound Grade/Stage: Reynoso stage I Type of Debridement: Excisional debridement Anesthesia Used: 5% Lidocaine Gel Depth: Down to and including healthy tissue and in the subcutaneous layer Percentage of wound debrided: 100 Instrument Used: #15 blade Tissue Removed: Fibrous, devitalized subcutaneous, biofilm, slough Severity: Fat Layer Exposed Amount of bleeding with debridement: Mild Bleeding Controlled with: Compression and gauze Patient tolerated procedure: Patient tolerated procedure well Post-Debridement Measurements and Additional Note: Post-Debridement Measurements/Treatment - Nurse 1 - General Ulcer Assessment Start: 08/07/23 08:51 Freq: Status: Active Protocol: LORI Activity Type Activity Date Activity User E-sign Co-sign Detail Recorded Client Recorded Date Recorded By Document 08/07/23 08:51 KW Desktop 08/07/23 09:00 KW 08/07/23 08:51 - Today's Visit Information Type of service Initial Visit Arrival Mode Ambulatory Patient Identification Verified (Name & Yes ) Finger Stick Blood Sugar(mg/dl) (if 172 indicated): Blood Sugar Stated by Patient Height and Weight Height 6 ft Weight 120.202 kg Weight in Pounds 265.0 lbs Body Mass Index (BMI) 35.9 BMI Classification Obese BSA - Shalonda 2.40 Vital Signs Temperature (97.8 F-99.1 F) 96.6 F L Temperature Source Temporal Pulse Rate (60-100) 94 Pulse Location Monitor Respiratory Rate (12-18) 18 Respiratory rate source Observation Oxygen Delivery Method Room Air Blood Pressure (90/60-120/80) 122/75 H Blood Pressure Mean 90 Source Monitor Position Semi-Fowlers Blood Pressure Location Left Arm History Since Last Visit- (Skip if this is Patient's initial visit) Left Footwear Regular Shoe Right Footwear Removable Cast Walker/Walking Boot Pain Scale: 0-10 Numeric Is Patient Pain Free? Yes WC - Nurse 1 - General Ulcer Measurement Start: 08/07/23 08:51 Freq: Status: Active Protocol: Activity Type Activity Date Activity User E-sign Co-sign Detail Recorded Client Recorded Date Recorded By Document 08/07/23 08:51 KW Desktop 08/07/23 09:00 KW 08/07/23 08:51 Wound Center Nurse 1 #4 Lateral Right Plantar Foot -Current Size (cm) - Length 0.9 -Current Size (cm) - Width 1.1 -Current Size (cm) - Depth 0.1 -Total Square Cm 0.99 -Date of Last Picture (Recall this 08/07/23 field) -Photo Taken Yes -Exudate Amt Medium -Exudate Type Serosanguineous -Wound Margin Distinct, Outline Attached -Granulation Amt Large (67-100%) -Granulation Quality Red -Necrosis Amt Small (1-33%) -Necrotic Tissue Type Adherent Slough -Texture (Yu-wound Skin Appearance) Assessed -Moisture (Yu-wound Skin Appearance) Assessed, Maceration -Color (Yu-wound Skin Appearance) Assessed -Temperature (Yu-wound Skin No Abnormality Appearance) (Pt Warm) -Ulcer Cleansing Rinsed/ Irrigated with Saline -Foul Odor after Cleansing No -Anesthetic Used 5% Lidocaine Gel Assessment/Plan Assessment/Plan (1) Ulcer of right foot with fat layer exposed: CODE(S): L97.512 - Non-pressure chronic ulcer of other part of right foot with fat layer exposed (2) Delayed wound healing: CODE(S): T14.8XXD - Other injury of unspecified body region, subsequent encounter (3) Diabetic neuropathy: CODE(S): E11.40 - Type 2 diabetes mellitus with diabetic neuropathy, unspecified QUALIFIERS: Diabetes mellitus type: type 1 Diabetes mellitus complication detail: diabetic polyneuropathy Qualified Code(s): E10.42 - Type 1 diabetes mellitus with diabetic polyneuropathy (4) Diabetes mellitus type 1: CODE(S): E10.9 - Type 1 diabetes mellitus without complications QUALIFIERS: Diabetes mellitus complication status: with hypoglycemia Diabetes mellitus complication detail: without coma Qualified Code(s): E10.649 - Type 1 diabetes mellitus with hypoglycemia without coma (5) Diabetes mellitus with foot ulcer: CODE(S): E11.621 - Type 2 diabetes mellitus with foot ulcer; L97.509 - Non-pressure chronic ulcer of other part of unspecified foot with unspecified severity PLAN: Plan Patient seen and evaluated Patient had been applying wet-to-dry dressings as he was unable to obtain Jessica dressing secondary to cost. He had been followed in the office and did have debridement over the course of 2 weeks with ulceration present for 5 weeks total. Wound has not made significant progress and reduction in size with wet-to-dry dressings and offloading. He was referred to the wound center for applications of advanced wound care products. Ulceration subfourth metatarsal head of the right foot was debrided as noted in the clinical panel above. Ulceration measures 1.0 cm x 1.0 cm x 0.2 cm. EpiFix graft #1 applied to the wound bed and dressed with Adaptic touch and anchored with Steri-Strips. Dry sterile dressing applied to the right foot. He is instructed to change outer dressings as needed. He is instructed to keep the dressings clean, dry, and intact and to not get the site wet. He was advised to utilize cast bag when showering to keep the dressings dry. Recommended continued offloading in cam boot to the right foot. His cam boot is old and worn out and thus I am recommending he go to the office for new cam boot to be dispensed so that he may continue offloading. Also discussed continued offloading padding to be applied to the right foot/cam boot about the ulcerative site. Discussed proper diabetic diet and tight glycemic control to continue to aid in healing of his ulceration. Discussed adequate protein intake to continue to aid in wound healing. Bhaskar supplementation also recommended to aid in wound healing. Discussed signs of infection today. He was instructed if he notices increasing redness about the ulcerative site that moves up onto the foot or up his leg, if he notices purulent drainage from the wound site, if he notices increasing foul odor from the wound, or if he develops fever greater than 101 degree, or nausea, or vomiting, or chills, that these are signs of a progressing infection and he should report to the ED to receive IV antibiotics. He voices understanding of this. The following work up and care recommendations were made: Dressing: EpiFix graft, Adaptic touch, Steri-Strips, dry sterile dressing. Do not get wet. May change outer dressing as needed Wash: Do not get wet Tissue growth optimization: EpiFix Offload: Plantar offloading padding and cam boot right foot Vascular: DP and PT pulses Palpable with adequate capillary fill time. Do not feel vascular status is impacting wound healing. Edema: No signs of pedal edema Infection: No signs of infection Pain: No pain secondary to diabetic peripheral polyneuropathy Host factors: DM type I with peripheral polyneuropathy, patient's himself as iatrogenic cause to ulcer, pressure I answered all the patient's questions. To return to the wound healing center in 1 week or call sooner if the patient has any questions or concerns.
== END 2023-08-13 23:59 | disposition home or self-care (01) ==
LOC: WC 08:42
PROVIDERS: PCP Internal Medicine; Referring Provider Student in an Organized Health Care Education/Training Program; Visit Provider Student in an Organized Health Care Education/Training Program
DX: E10.621 Type 1 diabetes mellitus with foot ulcer (principal); L97.512 Non-pressure chronic ulcer of other part of right foot with fat layer exposed; E10.42 Type 1 diabetes mellitus with diabetic polyneuropathy; E10.649 Type 1 diabetes mellitus with hypoglycemia without coma; Z87.891 Personal history of nicotine dependence
CPT/HCPCS: 15275; 99213; Q4186; G0463

== ENCOUNTER 2023-09-11 09:00 | Outpatient (RCR) | payer MEDICAID, SELFPAY ==
[2023-08-14 00:34] VITALS: BP 122/75; PULSE 94; RESP 18; TEMP 35.9; BMI 35.9
--- NOTE | 2023-08-14 08:58 | PCM.WC.PN ---
History of Present Illness Date of Service: 08/14/23 Chief Complaint: right plantar foot ulcer and right leg ulcer History of Wound: This 38-year-old diabetic male presents to the wound healing center for a subfourth metatarsal ulceration of the right foot. 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 He states he tried to care for the ulceration for roughly 2 to 3 weeks in which it was not healing and presented to office. In office he did undergo debridement of the site continued offloading in cam boot however did not obtain his dressing supplies and was performing daily changes of wet to dry gauze. He was referred to the wound care center for applications of advanced wound care product. He states no pain secondary to diabetic peripheral polyneuropathy. He denies N/V/F/chills. He denies further complaints. Subjective Subjective This is a 38-year-old male who presents to the wound care center for follow-up of a plantar fourth metatarsal ulceration of the right foot. He is continued offloading site in [facility]. He has left grafting product in place to the wound bed and is changing outer dressing as needed. He denies constitutional symptoms. Denies further complaints. Objective Data Objective Data Vital Signs: Vital Signs Temp Pulse Resp BP 96.6 F L 94 18 122/75 H 08/14/23 00:34 08/14/23 00:34 08/14/23 00:34 08/14/23 00:34 Weight: 120.202 kg Body Mass Index (BMI) 35.9 Physical Exam Const alert, oriented x3 and no apparent distress General Appearance: cooperative HEENT normocephalic Eyes General Eye: normal appearance of both eyes Neck General: normal visual inspection Lymph Lymphatic: no lymphadenopathy noted and no lymphedema noted Resp normal respiratory effort Cardio regular rate and regular rhythm Extremity normal capillary refill, no joint enlargement, no calf tenderness and no pedal edema Extremity Narrative: DP and PT pulses palpable right foot. Capillary fill time less than 4 seconds to digits right foot. No pedal edema is noted. Dermatological: Skin is mildly xerotic to the plantar aspect. There is a ulceration subfourth metatarsal head with surrounding hyperkeratotic tissue and healthy appearing granular layer. There is scant serosanguineous drainage. No erythema, no purulent drainage, no malodor, no palpable fluctuance/bogginess noted, no visible abscess formation, no lymphangitic streaking. Musculoskeletal: Muscle strength 5 of 5 age-appropriate. Partial fifth ray amputation is noted to the right foot. Decreased range of motion of the ankle joint in dorsiflexion with the knee extended without pain or crepitus. Decreased range of motion of the first metatarsophalangeal joint without pain or crepitus. Skin no rashes or lesions noted, skin turgor normal and no jaundice Neuro moves all extremities Neuro Narrative: Decreased protective sensation secondary to diabetic peripheral polyneuropathy Debridement Note Debridement Note Wound debrided: Subfourth metatarsal right foot Laterality: Right Wound Grade/Stage: Reynoso stage I Type of Debridement: Excisional debridement Anesthesia Used: 5% Lidocaine Gel Depth: Down to and including healthy tissue and in the subcutaneous layer Percentage of wound debrided: 100 Instrument Used: #15 blade Tissue Removed: Fibrous, devitalized subcutaneous, biofilm, slough Severity: Fat Layer Exposed Amount of bleeding with debridement: Mild Bleeding Controlled with: Compression and gauze Patient tolerated procedure: Patient tolerated procedure well Assessment/Plan Assessment/Plan (1) Diabetes mellitus with foot ulcer: CODE(S): E11.621 - Type 2 diabetes mellitus with foot ulcer; L97.509 - Non-pressure chronic ulcer of other part of unspecified foot with unspecified severity (2) Ulcer of right foot with fat layer exposed: CODE(S): L97.512 - Non-pressure chronic ulcer of other part of right foot with fat layer exposed (3) Diabetes mellitus type 1: CODE(S): E10.9 - Type 1 diabetes mellitus without complications QUALIFIERS: Diabetes mellitus complication detail: without coma Diabetes mellitus complication status: with hypoglycemia Qualified Code(s): E10.649 - Type 1 diabetes mellitus with hypoglycemia without coma (4) Delayed wound healing: CODE(S): T14.8XXD - Other injury of unspecified body region, subsequent encounter (5) Diabetic neuropathy: CODE(S): E11.40 - Type 2 diabetes mellitus with diabetic neuropathy, unspecified QUALIFIERS: Diabetes mellitus complication detail: diabetic polyneuropathy Diabetes mellitus type: type 1 Qualified Code(s): E10.42 - Type 1 diabetes mellitus with diabetic polyneuropathy PLAN: Plan Patient seen and evaluated Ulceration subfourth metatarsal head of the right foot was debrided as noted in the clinical panel above. Ulceration measures 1.0 cm x 1.0 cm x 0.2 cm. EpiFix graft #2 applied to the wound bed and dressed with Adaptic touch and anchored with Steri-Strips. Dry sterile dressing applied to the right foot. He is instructed to change outer dressings as needed. He is instructed to keep the dressings clean, dry, and intact and to not get the site wet. He was advised to utilize cast bag when showering to keep the dressings dry. Recommended continued offloading in cam boot to the right foot. His cam boot is old and worn out and thus I am recommending he go to the office for new cam boot to be dispensed so that he may continue offloading. Also discussed continued offloading padding to be applied to the right foot/CAM boot about the ulcerative site. Discussed proper diabetic diet and tight glycemic control to continue to aid in healing of his ulceration. Discussed adequate protein intake to continue to aid in wound healing. Bhaskar supplementation also recommended to aid in wound healing. Discussed signs of infection today. He was instructed if he notices increasing redness about the ulcerative site that moves up onto the foot or up his leg, if he notices purulent drainage from the wound site, if he notices increasing foul odor from the wound, or if he develops fever greater than 101 degree, or nausea, or vomiting, or chills, that these are signs of a progressing infection and he should report to the ED to receive IV antibiotics. He voices understanding of this. The following work up and care recommendations were made: Dressing: EpiFix graft, Adaptic touch, Steri-Strips, dry sterile dressing. Do not get wet. May change outer dressing as needed Wash: Do not get wet Tissue growth optimization: EpiFix Offload: Plantar offloading padding and cam boot right foot Vascular: DP and PT pulses Palpable with adequate capillary fill time. Do not feel vascular status is impacting wound healing. Edema: No signs of pedal edema Infection: No signs of infection Pain: No pain secondary to diabetic peripheral polyneuropathy Host factors: DM type I with peripheral polyneuropathy, patient's himself as iatrogenic cause to ulcer, pressure I answered all the patient's questions. To return to the wound healing center in 1 week or call sooner if the patient has any questions or concerns.
[2023-08-14 09:00] VITALS: BP 122/60; PULSE 92; RESP 20; TEMP 36.6; BMI 35.9
[2023-08-21 08:56] VITALS: BP 129/74; PULSE 92; RESP 18; TEMP 36.1; BMI 35.9
--- NOTE | 2023-08-21 09:23 | PCM.WC.PN ---
History of Present Illness Date of Service: 08/21/23 Chief Complaint: right plantar foot ulcer and right leg ulcer History of Wound: This 38-year-old diabetic male presents to the wound healing center for a subfourth metatarsal ulceration of the right foot. 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 He states he tried to care for the ulceration for roughly 2 to 3 weeks in which it was not healing and presented to office. In office he did undergo debridement of the site continued offloading in cam boot however did not obtain his dressing supplies and was performing daily changes of wet to dry gauze. He was referred to the wound care center for applications of advanced wound care product. He states no pain secondary to diabetic peripheral polyneuropathy. He denies N/V/F/chills. He denies further complaints. Subjective Subjective This is a 38-year-old male who presents to the wound care center for follow-up of a plantar fourth metatarsal ulceration of the right foot. He is continued offloading site in CAM boot with plantar offloading padding. He has left grafting product in place to the wound bed and is changing outer dressing as needed. He denies constitutional symptoms. Denies further complaints. Objective Data Objective Data Vital Signs: Vital Signs Temp Pulse Resp BP O2 Del Method 97.0 F L 92 18 129/74 H Room Air 08/21/23 08:56 08/21/23 08:56 08/21/23 08:56 08/21/23 08:56 08/21/23 08:56 Oxygen Delivery Method Room Air Weight: 120.202 kg Body Mass Index (BMI) 35.9 Physical Exam Const alert, oriented x3 and no apparent distress General Appearance: cooperative HEENT normocephalic Eyes General Eye: normal appearance of both eyes Neck General: normal visual inspection Lymph Lymphatic: no lymphadenopathy noted and no lymphedema noted Resp normal respiratory effort Cardio regular rate and regular rhythm Extremity normal capillary refill, no joint enlargement, no calf tenderness and no pedal edema Extremity Narrative: DP and PT pulses palpable right foot. Capillary fill time less than 4 seconds to digits right foot. No pedal edema is noted. Dermatological: Skin is mildly xerotic to the plantar aspect. There is a ulceration subfourth metatarsal head with surrounding hyperkeratotic tissue and healthy appearing granular layer. There is scant serosanguineous drainage. No erythema, no purulent drainage, no malodor, no palpable fluctuance/bogginess noted, no visible abscess formation, no lymphangitic streaking. Musculoskeletal: Muscle strength 5 of 5 age-appropriate. Partial fifth ray amputation is noted to the right foot. Decreased range of motion of the ankle joint in dorsiflexion with the knee extended without pain or crepitus. Decreased range of motion of the first metatarsophalangeal joint without pain or crepitus. Skin no rashes or lesions noted, skin turgor normal and no jaundice Neuro moves all extremities Neuro Narrative: Decreased protective sensation secondary to diabetic peripheral polyneuropathy Debridement Note Debridement Note Wound debrided: Subfourth metatarsal Laterality: Right Wound Grade/Stage: Reynoso stage I Type of Debridement: Excisional debridement Anesthesia Used: 5% Lidocaine Gel Depth: Down to and including healthy tissue and in the subcutaneous layer Percentage of wound debrided: 100 Instrument Used: 3mm curette Tissue Removed: Fibrous, devitalized subcutaneous, biofilm, slough Severity: Fat Layer Exposed Amount of bleeding with debridement: Mild Bleeding Controlled with: Compression and gauze Patient tolerated procedure: Patient tolerated procedure well Post-Debridement Measurements and Additional Note: Post-Debridement Measurements/Treatment - Nurse 1 - General Ulcer Assessment Start: 08/14/23 08:59 Freq: Status: Active Protocol: [email or web address] Activity Type Activity Date Activity User E-sign Co-sign Detail Recorded Client Recorded Date Recorded By Document 08/14/23 09:00 DL Desktop 08/14/23 09:11 DL Document 08/21/23 08:56 KW Desktop 08/21/23 09:02 KW Edit Result 08/21/23 08:56 KW (1) Desktop 08/21/23 09:05 KW (1) Right Footwear Regular Shoe => Removable Cast => Walker/Walking => Boot 08/14/23 08/21/23 09:00 08:56 - Today's Visit Information Type of service Follow-up Visit Follow-up Visit (Physician/LEAD DATA ARCHITECT (Physician/LEAD DATA ARCHITECT ) ) Arrival Mode Ambulatory Ambulatory Transfer Assistance None Patient Identification Verified (Name & Yes Yes ) Patient Requires Transmission-Based No Precautions Finger Stick Blood Sugar(mg/dl) (if [id number] indicated): Blood Sugar Stated by Stated by Patient Patient Height and Weight Body Mass Index (BMI) 35.9 35.9 BMI Classification Obese Obese Vital Signs Temperature (97.8 F-99.1 F) 97.8 F 97.0 F L Temperature Source Temporal Temporal Pulse Rate (60-100) 92 92 Pulse Location Monitor Monitor Respiratory Rate (12-18) 20 H 18 Respiratory rate source Observation Observation Oxygen Delivery Method Room Air Blood Pressure (90/60-120/80) 122/60 H 129/74 H Blood Pressure Mean (mm Hg) 80 92 Source Monitor Monitor Position Semi-Fowlers Blood Pressure Location Left Arm History Since Last Visit- (Skip if this is Patient's initial visit) Have you changed medications since your No No last visit? Any new allergies or adverse reactions No No Had a fall/change in ADL's that may No No increase risk of falls Signs or symptoms of abuse and/or No No neglect since last visit Have you been in the hospital since your No No last visit? Has dressing in place as prescribed Yes Yes Has compression in place as prescribed Yes N/A Has offloadiing in place as prescribed Yes Yes Experienced any changes in pain level or No No management Left Footwear Regular Shoe Regular Shoe Right Footwear Removable Cast Removable Cast Walker/Walking Walker/Walking Boot Boot Pain Scale: 0-10 Numeric Is Patient Pain Free? Yes Yes WC - Nurse 1 - General Ulcer Measurement Start: 08/14/23 08:59 Freq: Status: Active Protocol: Activity Type Activity Date Activity User E-sign Co-sign Detail Recorded Client Recorded Date Recorded By Document 08/14/23 09:00 DL Desktop 08/14/23 09:11 DL Document 08/21/23 08:56 KW Desktop 08/21/23 09:02 KW Edit Result 08/21/23 08:56 KW (1) Desktop 08/21/23 09:04 KW (1) #4 Lateral Right Plantar Foot - Combined with other wound => No - Current Size (cm) - Length => 0.8 - Current Size (cm) - Width => 0.9 - Current Size (cm) - Depth => 0.2 - Total Square Cm => 0.72 - Photo Taken => Yes - Epithelialization => Small 1-33% - Tunneling => No - Undermining/Tunneling => Yes - Undermining/Tunneling Starts (O'clock) => 12 - Undermining/Tunneling Ends (O'clock) => 3 - Maximum Distance (cm) => 0.4 - Circular Undermining => No - Exudate Amt => Small - Exudate Type => Serosanguineous - Wound Margin => Flat & Intact - Granulation Amt => Large (67-100%) - Granulation Quality => Red - Slough/Fibrin => Yes - Necrosis Amt => Small (1-33%) - Necrotic Tissue Type => Adherent Slough - Structure Exposed => N/A - Texture (Yu-wound Skin Appearance) => Assessed,Callus - Moisture (Yu-wound Skin Appearance) => Assessed - Color (Yu-wound Skin Appearance) => Assessed - Temperature (Yu-wound Skin => No Abnormality (Pt Appearance) => Warm) - Tenderness on Palpation (Yu-wound => No Skin Appearance) - Ulcer Cleansing => Wound Cleanser - Foul Odor after Cleansing => No - Anesthetic Used => 5% Lidocaine Gel 08/14/23 08/21/23 09:00 08:56 Wound Center Nurse 1 #4 Lateral Right Plantar Foot -Combined with other wound No -Current Size (cm) - Length 0.9 0.8 -Current Size (cm) - Width 1.2 0.9 -Current Size (cm) - Depth 0.2 0.2 -Total Square Cm 1.08 0.72 -Photo Taken Yes -Epithelialization Small 1-33% -Tunneling No -Undermining/Tunneling Yes -Undermining/Tunneling Starts (O'clock 12 ) -Undermining/Tunneling Ends (O'clock) 3 -Maximum Distance (cm) 0.4 -Circular Undermining No -Exudate Amt Medium Small -Exudate Type Serosanguineous Serosanguineous -Wound Margin Distinct, Flat & Intact Outline Attached -Granulation Amt Large (67-100%) Large (67-100%) -Granulation Quality [place] Red -Slough/Fibrin Yes -Necrosis Amt Small (1-33%) Small (1-33%) -Necrotic Tissue Type Adherent Slough Adherent Slough -Structure Exposed N/A N/A -Texture (Yu-wound Skin Appearance) Callus,Scarring Assessed,Callus -Moisture (Yu-wound Skin Appearance) No Abnormality Assessed -Color (Yu-wound Skin Appearance) No Abnormality Assessed -Temperature (Yu-wound Skin No Abnormality No Abnormality Appearance) (Pt Warm) (Pt Warm) -Tenderness on Palpation (Yu-wound No No Skin Appearance) -Ulcer Cleansing Soap and Water Wound Cleanser -Foul Odor after Cleansing No No -Anesthetic Used 5% Lidocaine 5% Lidocaine Gel Gel Lower Limb Edema Present NA WC - Nurse 2 - General Ulcer CM Notes Start: 08/14/23 08:59 Freq: Status: Active Protocol: Activity Type Activity Date Activity User E-sign Co-sign Detail Recorded Client Recorded Date Recorded By Document 08/14/23 10:28 PL Tablet 08/14/23 10:30 PL 08/14/23 10:28 Wound Center Nurse 2 #4 Lateral Right Plantar Foot -Time 09:15 -Correct Patient Yes -Correct Side, Site, Position Yes -Correct Procedure Yes -Procedure Performed Yes -Type of Procedure Debridement -Clinical Debridement Subcutaneous -Tissue Removed Subcutaneous -Post Debridement (cm) - Length 1.0 -Post Debridement (cm) - Width 1.0 -Post Debridement (cm) - Depth 0.1 -Total Square (Post) (cm) 1.00 -Area of Debridement (cm) - Length 1.0 -Area of Debridement (cm) - Width 1.0 -Total Square (Area) (cm) 1.00 -Tunneling No -Undermining/Tunneling No -Circular Undermining No -Wound/Ulcer Outcome Not Healed -Ulcer Cleansing Rinsed/ Irrigated with Saline -Foul Odor after Cleansing No -Bioengineered Tissue Yes -Type of Bioengineered Tissue Epifix 18mm Disc -Expiration Date 03/14/28 -Product Lot Number [id number] -Percent Used 100 -Bleeding Controlled with Pressure -Treatment Response Procedure Tolerated Well -Debridement - Subq, 1st 20sq cm No -Apply Skin Sub - 1st 25 sq cm - Feet 1 -Epifix 18mm Disc 3 Pain Scale: 0-10 Numeric Is Patient Pain Free? Yes RENETTA - Nurse 3 - General Ulcer D/C NN Start: 08/14/23 08:59 Freq: Status: Active Protocol: Activity Type Activity Date Activity User E-sign Co-sign Detail Recorded Client Recorded Date Recorded By Document 08/14/23 09:33 DL Desktop 08/14/23 09:34 DL 08/14/23 09:33 Wound Care Center Nurse 3 #4 Lateral Right Plantar Foot -Ulcer Cleansing Not Cleansed -Foul Odor after Cleansing No -Other Dressing Epifix -Primary Dressing Covered/Secured with Dry Gauze & Roll Gauze, Secured with Tape Treatment Response Procedure Tolerated Well Pain Scale: 0-10 Numeric Is Patient Pain Free? Yes WC - Visit Discharge Discharge Condition Stable Ambulatory Status Ambulatory Transportation Private Auto Assessment/Plan Assessment/Plan (1) Diabetes mellitus with foot ulcer: CODE(S): E11.621 - Type 2 diabetes mellitus with foot ulcer; L97.509 - Non-pressure chronic ulcer of other part of unspecified foot with unspecified severity (2) Ulcer of right foot with fat layer exposed: CODE(S): L97.512 - Non-pressure chronic ulcer of other part of right foot with fat layer exposed (3) Diabetes mellitus type 1: CODE(S): E10.9 - Type 1 diabetes mellitus without complications QUALIFIERS: Diabetes mellitus complication detail: without coma Diabetes mellitus complication status: with hypoglycemia Qualified Code(s): E10.649 - Type 1 diabetes mellitus with hypoglycemia without coma (4) Delayed wound healing: CODE(S): T14.8XXD - Other injury of unspecified body region, subsequent encounter (5) Diabetic neuropathy: CODE(S): E11.40 - Type 2 diabetes mellitus with diabetic neuropathy, unspecified QUALIFIERS: Diabetes mellitus complication detail: diabetic polyneuropathy Diabetes mellitus type: type 1 Qualified Code(s): E10.42 - Type 1 diabetes mellitus with diabetic polyneuropathy PLAN: Plan Patient seen and evaluated Ulceration subfourth metatarsal head of the right foot was debrided as noted in the clinical panel above. Ulceration measures 0.9 cm x 1.0 cm x 0.2 cm. EpiFix graft #3 applied to the wound bed and dressed with Adaptic touch and anchored with Steri-Strips. Dry sterile dressing applied to the right foot. He is instructed to change outer dressings as needed. He is instructed to keep the dressings clean, dry, and intact and to not get the site wet. He was advised to utilize cast bag when showering to keep the dressings dry. Ulceration demonstrates slight reduction in size versus previous visit Recommended continued offloading in CAM boot to the right foot with plantar offloading padding. Discussed proper diabetic diet and tight glycemic control to continue to aid in healing of his ulceration. Discussed adequate protein intake to continue to aid in wound healing. Bhaskar supplementation also recommended to aid in wound healing. Discussed signs of infection today. He was instructed if he notices increasing redness about the ulcerative site that moves up onto the foot or up his leg, if he notices purulent drainage from the wound site, if he notices increasing foul odor from the wound, or if he develops fever greater than 101 degree, or nausea, or vomiting, or chills, that these are signs of a progressing infection and he should report to the ED to receive IV antibiotics. He voices understanding of this. The following work up and care recommendations were made: Dressing: EpiFix graft, Adaptic touch, Steri-Strips, dry sterile dressing. Do not get wet. May change outer dressing as needed Wash: Do not get wet Tissue growth optimization: EpiFix Offload: Plantar offloading padding and CAM boot right foot Vascular: DP and PT pulses Palpable with adequate capillary fill time. Do not feel vascular status is impacting wound healing. Edema: No signs of pedal edema Infection: No signs of infection Pain: No pain secondary to diabetic peripheral polyneuropathy Host factors: DM type I with peripheral polyneuropathy, patient's himself as iatrogenic cause to ulcer, pressure I answered all the patient's questions. To return to the wound healing center in 1 week or call sooner if the patient has any questions or concerns.
[2023-08-28 08:59] VITALS: BP 161/78; PULSE 93; RESP 16; TEMP 36.2; BMI 35.9
--- NOTE | 2023-08-28 09:04 | PN.PCM_ITS ---
History of Present Illness Date of Service: 08/28/23 Chief Complaint: right plantar foot ulcer and right leg ulcer History of Wound: This 38-year-old diabetic male presents to the wound healing center for a subfourth metatarsal ulceration of the right foot. 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 He states he tried to care for the ulceration for roughly 2 to 3 weeks in which it was not healing and presented to office. In office he did undergo debridement of the site continued offloading in cam boot however did not obtain his dressing supplies and was performing daily changes of wet to dry gauze. He was referred to the wound care center for applications of advanced wound care product. He states no pain secondary to diabetic peripheral polyneuropathy. He denies N/V/F/chills. He denies further complaints. Subjective Subjective This is a 38-year-old male who presents to the wound care center for follow-up of a plantar fourth metatarsal ulceration of the right foot. He is continued offloading site in CAM boot with plantar offloading padding. He has left grafting product in place to the wound bed and is changing outer dressing as needed. He denies constitutional symptoms. Denies further complaints. Objective Data Objective Data Vital Signs: Vital Signs Temp Pulse Resp BP O2 Del Method 97.1 F L 93 16 161/78 H Room Air 08/28/23 08:59 08/28/23 08:59 08/28/23 08:59 08/28/23 08:59 08/28/23 08:59 Oxygen Delivery Method Room Air Weight: 120.202 kg Body Mass Index (BMI) 35.9 Physical Exam Const alert, oriented x3 and no apparent distress General Appearance: cooperative HEENT normocephalic Eyes General Eye: normal appearance of both eyes Neck General: normal visual inspection Lymph Lymphatic: no lymphadenopathy noted and no lymphedema noted Resp normal respiratory effort Cardio regular rate and regular rhythm Extremity normal capillary refill, no joint enlargement, no calf tenderness and no pedal edema Extremity Narrative: DP and PT pulses palpable right foot. Capillary fill time less than 4 seconds to digits right foot. No pedal edema is noted. Dermatological: Skin is mildly xerotic to the plantar aspect. There is a ulceration subfourth metatarsal head with surrounding hyperkeratotic tissue and healthy appearing granular layer. There is scant serosanguineous drainage. No erythema, no purulent drainage, no malodor, no palpable fluctuance/bogginess noted, no visible abscess formation, no lymphangitic streaking. Musculoskeletal: Muscle strength 5 of 5 age-appropriate. Partial fifth ray amputation is noted to the right foot. Decreased range of motion of the ankle joint in dorsiflexion with the knee extended without pain or crepitus. Decreased range of motion of the first metatarsophalangeal joint without pain or crepitus. Skin no rashes or lesions noted, skin turgor normal and no jaundice Neuro moves all extremities Neuro Narrative: Decreased protective sensation secondary to diabetic peripheral polyneuropathy Debridement Note Debridement Note Wound debrided: Subfourth metatarsal right foot Laterality: Right Wound Grade/Stage: Reynoso stage I Type of Debridement: Excisional debridement Anesthesia Used: 5% Lidocaine Gel Depth: Down to and including healthy tissue and in the subcutaneous layer Percentage of wound debrided: 100 Instrument Used: 5mm curette Tissue Removed: Fibrous, devitalized subcutaneous, biofilm, slough Severity: Fat Layer Exposed Amount of bleeding with debridement: Mild Bleeding Controlled with: Compression and gauze Patient tolerated procedure: Patient tolerated procedure well Post-Debridement Measurements and Additional Note: Post-Debridement Measurements/Treatment - Nurse 1 - General Ulcer Assessment Start: 08/14/23 08:59 Freq: Status: Active Protocol: [email or web address] Activity Type Activity Date Activity User E-sign Co-sign Detail Recorded Client Recorded Date Recorded By Document 08/14/23 09:00 DL Desktop 08/14/23 09:11 DL Document 08/21/23 08:56 KW Desktop 08/21/23 09:02 KW Edit Result 08/21/23 08:56 KW (1) Desktop 08/21/23 09:05 KW Document 08/28/23 08:59 KW Desktop 08/28/23 09:02 KW (1) Right Footwear Regular Shoe => Removable Cast => Walker/Walking => Boot 08/14/23 08/21/23 08/28/23 09:00 08:56 08:59 - Today's Visit Information Type of service Follow-up Visit Follow-up Visit Follow-up Visit (Physician/COMMERCIAL LENDING RELATIONSHIP MANAGER (Physician/COMMERCIAL LENDING RELATIONSHIP MANAGER (Physician/COMMERCIAL LENDING RELATIONSHIP MANAGER ) ) ) Arrival Mode Ambulatory Ambulatory Ambulatory Transfer Assistance None Patient Identification Verified (Name & Yes Yes Yes ) Patient Requires Transmission-Based No Precautions Finger Stick Blood Sugar(mg/dl) (if 232 142 indicated): Blood Sugar Stated by Stated by Patient Patient Height and Weight Body Mass Index (BMI) 35.9 35.9 35.9 BMI Classification Obese Obese Obese Vital Signs Temperature (97.8 F-99.1 F) 97.8 F 97.0 F L 97.1 F L Temperature Source Temporal Temporal Temporal Pulse Rate (60-100) 92 92 93 Pulse Location Monitor Monitor Monitor Respiratory Rate (12-18) 20 H 18 16 Respiratory rate source Observation Observation Observation Oxygen Delivery Method Room Air Room Air Blood Pressure (90/60-120/80) 122/60 H 129/74 H 161/78 H Blood Pressure Mean (mm Hg) 80 92 105 Source Monitor Monitor Monitor Position Semi-Fowlers Semi-Fowlers Blood Pressure Location Left Arm Left Arm History Since Last Visit- (Skip if this is Patient's initial visit) Have you changed medications since your No No No last visit? Any new allergies or adverse reactions No No No Had a fall/change in ADL's that may No No No increase risk of falls Signs or symptoms of abuse and/or No No No neglect since last visit Have you been in the hospital since your No No No last visit? Has dressing in place as prescribed Yes Yes Yes Has compression in place as prescribed Yes N/A No Has offloadiing in place as prescribed Yes Yes Yes Experienced any changes in pain level or No No No management Left Footwear Regular Shoe Regular Shoe Regular Shoe Right Footwear Removable Cast Removable Cast Removable Cast Walker/Walking Walker/Walking Walker/Walking Boot Boot Boot Pain Scale: 0-10 Numeric Is Patient Pain Free? Yes Yes Yes WC - Nurse 1 - General Ulcer Measurement Start: 08/14/23 08:59 Freq: Status: Active Protocol: Activity Type Activity Date Activity User E-sign Co-sign Detail Recorded Client Recorded Date Recorded By Document 08/14/23 09:00 DL Desktop 08/14/23 09:11 DL Document 08/21/23 08:56 KW Desktop 08/21/23 09:02 KW Edit Result 08/21/23 08:56 KW (1) Desktop 08/21/23 09:04 KW Document 08/28/23 08:59 KW Desktop 08/28/23 09:02 KW (1) #4 Lateral Right Plantar Foot - Combined with other wound => No - Current Size (cm) - Length => 0.8 - Current Size (cm) - Width => 0.9 - Current Size (cm) - Depth => 0.2 - Total Square Cm => 0.72 - Photo Taken => Yes - Epithelialization => Small 1-33% - Tunneling => No - Undermining/Tunneling => Yes - Undermining/Tunneling Starts (O'clock) => 12 - Undermining/Tunneling Ends (O'clock) => 3 - Maximum Distance (cm) => 0.4 - Circular Undermining => No - Exudate Amt => Small - Exudate Type => Serosanguineous - Wound Margin => Flat & Intact - Granulation Amt => Large (67-100%) - Granulation Quality => Red - Slough/Fibrin => Yes - Necrosis Amt => Small (1-33%) - Necrotic Tissue Type => Adherent Slough - Structure Exposed => N/A - Texture (Yu-wound Skin Appearance) => Assessed,Callus - Moisture (Yu-wound Skin Appearance) => Assessed - Color (Yu-wound Skin Appearance) => Assessed - Temperature (Yu-wound Skin => No Abnormality (Pt Appearance) => Warm) - Tenderness on Palpation (Yu-wound => No Skin Appearance) - Ulcer Cleansing => Wound Cleanser - Foul Odor after Cleansing => No - Anesthetic Used => 5% Lidocaine Gel 08/14/23 08/21/23 08/28/23 09:00 08:56 08:59 Wound Center Nurse 1 #4 Lateral Right Plantar Foot -Combined with other wound No -Current Size (cm) - Length 0.9 0.8 0.8 -Current Size (cm) - Width 1.2 0.9 0.9 -Current Size (cm) - Depth 0.2 0.2 0.2 -Total Square Cm 1.08 0.72 0.72 -Photo Taken Yes -Epithelialization Small 1-33% -Tunneling No -Undermining/Tunneling Yes Yes -Undermining/Tunneling Starts (O'clock 12 10 ) -Undermining/Tunneling Ends (O'clock) 3 4 -Maximum Distance (cm) 0.4 0.4 -Circular Undermining No -Exudate Amt Medium Small -Exudate Type Serosanguineous Serosanguineous -Wound Margin Distinct, Flat & Intact Thickened Outline Attached -Granulation Amt Large (67-100%) Large (67-100%) Large (67-100%) -Granulation Quality [place] -Slough/Fibrin Yes -Necrosis Amt Small (1-33%) Small (1-33%) -Necrotic Tissue Type Adherent Slough Adherent Slough -Structure Exposed N/A N/A -Texture (Yu-wound Skin Appearance) Callus,Scarring Assessed,Callus Assessed,Callus -Moisture (Yu-wound Skin Appearance) No Abnormality Assessed Maceration -Color (Yu-wound Skin Appearance) No Abnormality Assessed Assessed -Temperature (Yu-wound Skin No Abnormality No Abnormality No Abnormality Appearance) (Pt Warm) (Pt Warm) (Pt Warm) -Tenderness on Palpation (Yu-wound No No Skin Appearance) -Ulcer Cleansing Soap and Water Wound Cleanser Rinsed/ Irrigated with Saline -Foul Odor after Cleansing No No -Anesthetic Used 5% Lidocaine 5% Lidocaine 5% Lidocaine Gel Gel Gel Lower Limb Edema Present NA WC - Nurse 2 - General Ulcer CM Notes Start: 08/14/23 08:59 Freq: Status: Active Protocol: Activity Type Activity Date Activity User E-sign Co-sign Detail Recorded Client Recorded Date Recorded By Document 08/14/23 10:28 PL Tablet 08/14/23 10:30 PL Document 08/21/23 11:58 PL [id number] 08/21/23 12:00 PL Edit Result 08/21/23 11:58 PL (1) [id number] 08/21/23 12:02 PL (1) #4 Lateral Right Plantar Foot - Bioengineered Tissue No => Yes - Type of Bioengineered Tissue => Epifix 18mm Disc - Expiration Date => 04/13/28 - Product Lot Number => [id number] - Percent Used => 100 - Debridement - Subq, 1st 20sq cm Yes => No - Apply Skin Sub - 1st 25 sq cm - Feet => 1 - Epifix 18mm Disc => 3 08/14/23 08/21/23 10:28 11:58 Wound Center Nurse 2 #4 Lateral Right Plantar Foot -Time 09:15 09:15 -Correct Patient Yes Yes -Correct Side, Site, Position Yes Yes -Correct Procedure Yes Yes -Procedure Performed Yes Yes -Type of Procedure Debridement Debridement -Clinical Debridement Subcutaneous Subcutaneous -Tissue Removed Subcutaneous Subcutaneous -Post Debridement (cm) - Length 1.0 0.9 -Post Debridement (cm) - Width 1.0 1.0 -Post Debridement (cm) - Depth 0.1 0.1 -Total Square (Post) (cm) 1.00 0.90 -Area of Debridement (cm) - Length 1.0 0.9 -Area of Debridement (cm) - Width 1.0 1.0 -Total Square (Area) (cm) 1.00 0.90 -Tunneling No No -Undermining/Tunneling No No -Circular Undermining No No -Wound/Ulcer Outcome Not Healed Not Healed -Ulcer Cleansing Rinsed/ Rinsed/ Irrigated with Irrigated with Saline Saline -Foul Odor after Cleansing No No -Bioengineered Tissue Yes Yes -Type of Bioengineered Tissue Epifix 18mm Epifix 18mm Disc Disc -Expiration Date 03/14/28 04/13/28 -Product Lot Number [id number] -Percent Used 100 100 -Bleeding Controlled with Pressure Pressure -Treatment Response Procedure Procedure Tolerated Well Tolerated Well -Debridement - Subq, 1st 20sq cm No No -Apply Skin Sub - 1st 25 sq cm - Feet 1 1 -Epifix 18mm Disc 3 3 Pain Scale: 0-10 Numeric Is Patient Pain Free? Yes Yes - Nurse 3 - General Ulcer D/C NN Start: 08/14/23 08:59 Freq: Status: Active Protocol: Activity Type Activity Date Activity User E-sign Co-sign Detail Recorded Client Recorded Date Recorded By Document 08/14/23 09:33 DL Desktop 08/14/23 09:34 DL Document 08/21/23 09:26 KW Desktop 08/21/23 09:26 KW 08/14/23 08/21/23 09:33 09:26 Wound Care Center Nurse 3 #4 Lateral Right Plantar Foot -Ulcer Cleansing Not Cleansed -Foul Odor after Cleansing No -Other Dressing Epifix -Primary Dressing Covered/Secured with Dry Gauze & Dry Gauze & Roll Gauze, Roll Gauze, Secured with Secured with Tape Tape Treatment Response Procedure Tolerated Well Pain Scale: 0-10 Numeric Is Patient Pain Free? Yes Yes WC - Visit Discharge Discharge Condition Stable Stable Ambulatory Status Ambulatory Ambulatory Transportation Private Auto Private Auto Medication Reconcilliation completed & No provided to patient/care provider Clinical Summary of Care Provided Yes Assessment/Plan Assessment/Plan (1) Diabetes mellitus with foot ulcer: CODE(S): E11.621 - Type 2 diabetes mellitus with foot ulcer; L97.509 - Non-pressure chronic ulcer of other part of unspecified foot with unspecified severity (2) Ulcer of right foot with fat layer exposed: CODE(S): L97.512 - Non-pressure chronic ulcer of other part of right foot with fat layer exposed (3) Diabetes mellitus type 1: CODE(S): E10.9 - Type 1 diabetes mellitus without complications QUALIFIERS: Diabetes mellitus complication detail: without coma Diabetes mellitus complication status: with hypoglycemia Qualified Code(s): E10.649 - Type 1 diabetes mellitus with hypoglycemia without coma (4) Delayed wound healing: CODE(S): T14.8XXD - Other injury of unspecified body region, subsequent encounter (5) Diabetic neuropathy: CODE(S): E11.40 - Type 2 diabetes mellitus with diabetic neuropathy, unspecified QUALIFIERS: Diabetes mellitus complication detail: diabetic polyneuropathy Diabetes mellitus type: type 1 Qualified Code(s): E10.42 - Type 1 diabetes mellitus with diabetic polyneuropathy PLAN: Plan Patient seen and evaluated Ulceration subfourth metatarsal head of the right foot was debrided as noted in the clinical panel above. Ulceration measures 1.0 cm x 0.9 cm x 0.2 cm. EpiFix graft #4 applied to the wound bed and dressed with Adaptic touch and anchored with Steri-Strips. Dry sterile dressing applied to the right foot. He is instructed to change outer dressings as needed. He is instructed to keep the dressings clean, dry, and intact and to not get the site wet. He was advised to utilize cast bag when showering to keep the dressings dry. Ulceration demonstrates slight reduction in size versus previous visit Recommended continued offloading in CAM boot to the right foot with plantar offloading padding. Surgical shoe was offloaded so that he may wear this when getting up to go to the bathroom at night. Otherwise will remain in cam boot with plantar offloading padding. Discussed proper diabetic diet and tight glycemic control to continue to aid in healing of his ulceration. Discussed adequate protein intake to continue to aid in wound healing. Bhaskar supplementation also recommended to aid in wound healing. Discussed signs of infection today. He was instructed if he notices increasing redness about the ulcerative site that moves up onto the foot or up his leg, if he notices purulent drainage from the wound site, if he notices increasing foul odor from the wound, or if he develops fever greater than 101 degree, or nausea, or vomiting, or chills, that these are signs of a progressing infection and he should report to the ED to receive IV antibiotics. He voices understanding of this. The following work up and care recommendations were made: Dressing: EpiFix graft, Adaptic touch, Steri-Strips, dry sterile dressing. Do not get wet. May change outer dressing as needed Wash: Do not get wet Tissue growth optimization: EpiFix Offload: Plantar offloading padding and CAM boot right foot Vascular: DP and PT pulses Palpable with adequate capillary fill time. Do not feel vascular status is impacting wound healing. Edema: No signs of pedal edema Infection: No signs of infection Pain: No pain secondary to diabetic peripheral polyneuropathy Host factors: DM type I with peripheral polyneuropathy, patient's himself as iatrogenic cause to ulcer, pressure I answered all the patient's questions. To return to the wound healing center in 1 week or call sooner if the patient has any questions or concerns.
--- NOTE | 2023-09-04 08:58 | PN.PCM_ITS ---
History of Present Illness Date of Service: 09/04/23 Chief Complaint: right plantar foot ulcer and right leg ulcer History of Wound: This 38-year-old diabetic male presents to the wound healing center for a subfourth metatarsal ulceration of the right foot. 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 He states he tried to care for the ulceration for roughly 2 to 3 weeks in which it was not healing and presented to office. In office he did undergo debridement of the site continued offloading in cam boot however did not obtain his dressing supplies and was performing daily changes of wet to dry gauze. He was referred to the wound care center for applications of advanced wound care product. He states no pain secondary to diabetic peripheral polyneuropathy. He denies N/V/F/chills. He denies further complaints. Subjective Subjective This is a 38-year-old male who presents to the wound care center for follow-up of a plantar fourth metatarsal ulceration of the right foot. He is continued offloading site in CAM boot with plantar offloading padding. He has left grafting product in place to the wound bed and is changing outer dressing as needed. He denies constitutional symptoms. Denies further complaints. Objective Data Objective Data Vital Signs: Vital Signs Temp Pulse Resp BP O2 Del Method 97.1 F L 93 16 161/78 H Room Air 08/28/23 08:59 08/28/23 08:59 08/28/23 08:59 08/28/23 08:59 08/28/23 08:59 Oxygen Delivery Method Room Air Weight: 120.202 kg Body Mass Index (BMI) 35.9 Physical Exam Const alert, oriented x3 and no apparent distress General Appearance: cooperative HEENT normocephalic Eyes General Eye: normal appearance of both eyes Neck General: normal visual inspection Lymph Lymphatic: no lymphadenopathy noted and no lymphedema noted Resp normal respiratory effort Cardio regular rate and regular rhythm Extremity normal capillary refill, no joint enlargement, no calf tenderness and no pedal edema Extremity Narrative: DP and PT pulses palpable right foot. Capillary fill time less than 4 seconds to digits right foot. No pedal edema is noted. Dermatological: Skin is mildly xerotic to the plantar aspect. There is a ulceration subfourth metatarsal head with surrounding hyperkeratotic tissue and healthy appearing granular layer. There is scant serosanguineous drainage. No erythema, no purulent drainage, no malodor, no palpable fluctuance/bogginess noted, no visible abscess formation, no lymphangitic streaking. Musculoskeletal: Muscle strength 5 of 5 age-appropriate. Partial fifth ray amputation is noted to the right foot. Decreased range of motion of the ankle joint in dorsiflexion with the knee extended without pain or crepitus. Decreased range of motion of the first metatarsophalangeal joint without pain or crepitus. Skin no rashes or lesions noted, skin turgor normal and no jaundice Neuro moves all extremities Neuro Narrative: Decreased protective sensation secondary to diabetic peripheral polyneuropathy Debridement Note Debridement Note Wound debrided: Subfourth metatarsal right foot Laterality: Right Wound Grade/Stage: Reynoso stage I Type of Debridement: Excisional debridement Anesthesia Used: 5% Lidocaine Gel Depth: Down to and including healthy tissue and in the subcutaneous layer Percentage of wound debrided: 100 Instrument Used: 5mm curette Tissue Removed: Fibrous, devitalized subcutaneous, biofilm, slough Severity: Fat Layer Exposed Amount of bleeding with debridement: Mild Bleeding Controlled with: Compression and gauze Patient tolerated procedure: Patient tolerated procedure well Post-Debridement Measurements and Additional Note: Post-Debridement Measurements/Treatment - Nurse 1 - General Ulcer Assessment Start: 08/14/23 08:59 Freq: Status: Active Protocol: [email or web address] Activity Type Activity Date Activity User E-sign Co-sign Detail Recorded Client Recorded Date Recorded By Document 08/14/23 09:00 DL Desktop 08/14/23 09:11 DL Document 08/21/23 08:56 KW Desktop 08/21/23 09:02 KW Edit Result 08/21/23 08:56 KW (1) Desktop 08/21/23 09:05 KW Document 08/28/23 08:59 KW Desktop 08/28/23 09:02 KW (1) Right Footwear Regular Shoe => Removable Cast => Walker/Walking => Boot 08/14/23 08/21/23 08/28/23 09:00 08:56 08:59 - Today's Visit Information Type of service Follow-up Visit Follow-up Visit Follow-up Visit (Physician/NEWBORN PHOTOGRAPHER (Physician/NEWBORN PHOTOGRAPHER (Physician/NEWBORN PHOTOGRAPHER ) ) ) Arrival Mode Ambulatory Ambulatory Ambulatory Transfer Assistance None Patient Identification Verified (Name & Yes Yes Yes ) Patient Requires Transmission-Based No Precautions Finger Stick Blood Sugar(mg/dl) (if 232 142 indicated): Blood Sugar Stated by Stated by Patient Patient Height and Weight Body Mass Index (BMI) 35.9 35.9 35.9 BMI Classification Obese Obese Obese Vital Signs Temperature (97.8 F-99.1 F) 97.8 F 97.0 F L 97.1 F L Temperature Source Temporal Temporal Temporal Pulse Rate (60-100) 92 92 93 Pulse Location Monitor Monitor Monitor Respiratory Rate (12-18) 20 H 18 16 Respiratory rate source Observation Observation Observation Oxygen Delivery Method Room Air Room Air Blood Pressure (90/60-120/80) 122/60 H 129/74 H 161/78 H Blood Pressure Mean (mm Hg) 80 92 105 Source Monitor Monitor Monitor Position Semi-Fowlers Semi-Fowlers Blood Pressure Location Left Arm Left Arm History Since Last Visit- (Skip if this is Patient's initial visit) Have you changed medications since your No No No last visit? Any new allergies or adverse reactions No No No Had a fall/change in ADL's that may No No No increase risk of falls Signs or symptoms of abuse and/or No No No neglect since last visit Have you been in the hospital since your No No No last visit? Has dressing in place as prescribed Yes Yes Yes Has compression in place as prescribed Yes N/A No Has offloadiing in place as prescribed Yes Yes Yes Experienced any changes in pain level or No No No management Left Footwear Regular Shoe Regular Shoe Regular Shoe Right Footwear Removable Cast Removable Cast Removable Cast Walker/Walking Walker/Walking Walker/Walking Boot Boot Boot Pain Scale: 0-10 Numeric Is Patient Pain Free? Yes Yes Yes WC - Nurse 1 - General Ulcer Measurement Start: 08/14/23 08:59 Freq: Status: Active Protocol: Activity Type Activity Date Activity User E-sign Co-sign Detail Recorded Client Recorded Date Recorded By Document 08/14/23 09:00 DL Desktop 08/14/23 09:11 DL Document 08/21/23 08:56 KW Desktop 08/21/23 09:02 KW Edit Result 08/21/23 08:56 KW (1) Desktop 08/21/23 09:04 KW Document 08/28/23 08:59 KW Desktop 08/28/23 09:02 KW (1) #4 Lateral Right Plantar Foot - Combined with other wound => No - Current Size (cm) - Length => 0.8 - Current Size (cm) - Width => 0.9 - Current Size (cm) - Depth => 0.2 - Total Square Cm => 0.72 - Photo Taken => Yes - Epithelialization => Small 1-33% - Tunneling => No - Undermining/Tunneling => Yes - Undermining/Tunneling Starts (O'clock) => 12 - Undermining/Tunneling Ends (O'clock) => 3 - Maximum Distance (cm) => 0.4 - Circular Undermining => No - Exudate Amt => Small - Exudate Type => Serosanguineous - Wound Margin => Flat & Intact - Granulation Amt => Large (67-100%) - Granulation Quality => Red - Slough/Fibrin => Yes - Necrosis Amt => Small (1-33%) - Necrotic Tissue Type => Adherent Slough - Structure Exposed => N/A - Texture (Yu-wound Skin Appearance) => Assessed,Callus - Moisture (Yu-wound Skin Appearance) => Assessed - Color (Yu-wound Skin Appearance) => Assessed - Temperature (Yu-wound Skin => No Abnormality (Pt Appearance) => Warm) - Tenderness on Palpation (Yu-wound => No Skin Appearance) - Ulcer Cleansing => Wound Cleanser - Foul Odor after Cleansing => No - Anesthetic Used => 5% Lidocaine Gel 08/14/23 08/21/23 08/28/23 09:00 08:56 08:59 Wound Center Nurse 1 #4 Lateral Right Plantar Foot -Combined with other wound No -Current Size (cm) - Length 0.9 0.8 0.8 -Current Size (cm) - Width 1.2 0.9 0.9 -Current Size (cm) - Depth 0.2 0.2 0.2 -Total Square Cm 1.08 0.72 0.72 -Photo Taken Yes -Epithelialization Small 1-33% -Tunneling No -Undermining/Tunneling Yes Yes -Undermining/Tunneling Starts (O'clock 12 10 ) -Undermining/Tunneling Ends (O'clock) 3 4 -Maximum Distance (cm) 0.4 0.4 -Circular Undermining No -Exudate Amt Medium Small -Exudate Type Serosanguineous Serosanguineous -Wound Margin Distinct, Flat & Intact Thickened Outline Attached -Granulation Amt Large (67-100%) Large (67-100%) Large (67-100%) -Granulation Quality [employer] -Slough/Fibrin Yes -Necrosis Amt Small (1-33%) Small (1-33%) -Necrotic Tissue Type Adherent Slough Adherent Slough -Structure Exposed N/A N/A -Texture (Yu-wound Skin Appearance) Callus,Scarring Assessed,Callus Assessed,Callus -Moisture (Yu-wound Skin Appearance) No Abnormality Assessed Maceration -Color (Yu-wound Skin Appearance) No Abnormality Assessed Assessed -Temperature (Yu-wound Skin No Abnormality No Abnormality No Abnormality Appearance) (Pt Warm) (Pt Warm) (Pt Warm) -Tenderness on Palpation (Yu-wound No No Skin Appearance) -Ulcer Cleansing Soap and Water Wound Cleanser Rinsed/ Irrigated with Saline -Foul Odor after Cleansing No No -Anesthetic Used 5% Lidocaine 5% Lidocaine 5% Lidocaine Gel Gel Gel Lower Limb Edema Present NA WC - Nurse 2 - General Ulcer CM Notes Start: 08/14/23 08:59 Freq: Status: Active Protocol: Activity Type Activity Date Activity User E-sign Co-sign Detail Recorded Client Recorded Date Recorded By Document 08/14/23 10:28 PL Tablet 08/14/23 10:30 PL Document 08/21/23 11:58 PL [id number] 08/21/23 12:00 PL Edit Result 08/21/23 11:58 PL (1) [id number] 08/21/23 12:02 PL Document 08/28/23 09:46 PL Tablet 08/28/23 09:50 PL (1) #4 Lateral Right Plantar Foot - Bioengineered Tissue No => Yes - Type of Bioengineered Tissue => Epifix 18mm Disc - Expiration Date => 04/13/28 - Product Lot Number => [id number] - Percent Used => 100 - Debridement - Subq, 1st 20sq cm Yes => No - Apply Skin Sub - 1st 25 sq cm - Feet => 1 - Epifix 18mm Disc => 3 08/14/23 08/21/23 08/28/23 10:28 11:58 09:46 Wound Center Nurse 2 #4 Lateral Right Plantar Foot -Time 09:15 09:15 09:15 -Correct Patient Yes Yes Yes -Correct Side, Site, Position Yes Yes Yes -Correct Procedure Yes Yes Yes -Procedure Performed Yes Yes Yes -Type of Procedure Debridement Debridement Debridement -Clinical Debridement Subcutaneous Subcutaneous Subcutaneous -Tissue Removed Subcutaneous Subcutaneous Subcutaneous -Post Debridement (cm) - Length 1.0 0.9 1.0 -Post Debridement (cm) - Width 1.0 1.0 0.9 -Post Debridement (cm) - Depth 0.1 0.1 0.1 -Total Square (Post) (cm) 1.00 0.90 0.90 -Area of Debridement (cm) - Length 1.0 0.9 1.0 -Area of Debridement (cm) - Width 1.0 1.0 0.9 -Total Square (Area) (cm) 1.00 0.90 0.90 -Tunneling No No No -Undermining/Tunneling No No No -Circular Undermining No No No -Wound/Ulcer Outcome Not Healed Not Healed Not Healed -Ulcer Cleansing Rinsed/ Rinsed/ Rinsed/ Irrigated with Irrigated with Irrigated with Saline Saline Saline -Foul Odor after Cleansing No No No -Bioengineered Tissue Yes Yes Yes -Type of Bioengineered Tissue Epifix 18mm Epifix 18mm Epifix 18mm Disc Disc Disc -Expiration Date 03/14/28 04/13/28 04/13/28 -Product Lot Number [id number] -Percent Used 100 100 100 -Bleeding Controlled with Pressure Pressure Pressure -Treatment Response Procedure Procedure Procedure Tolerated Well Tolerated Well Tolerated Well -Debridement - Subq, 1st 20sq cm No No No -Apply Skin Sub - 1st 25 sq cm - Feet 1 1 1 -Epifix 18mm Disc 3 3 3 Pain Scale: 0-10 Numeric Is Patient Pain Free? Yes Yes Yes WC - Nurse 3 - General Ulcer D/C NN Start: 08/14/23 08:59 Freq: Status: Active Protocol: Activity Type Activity Date Activity User E-sign Co-sign Detail Recorded Client Recorded Date Recorded By Document 08/14/23 09:33 DL Desktop 08/14/23 09:34 DL Document 08/21/23 09:26 KW Desktop 08/21/23 09:26 KW Document 08/28/23 09:38 KW Desktop 08/28/23 09:38 KW 08/14/23 08/21/23 08/28/23 09:33 09:26 09:38 Wound Care Center Nurse 3 #4 Lateral Right Plantar Foot -Ulcer Cleansing Not Cleansed -Foul Odor after Cleansing No -Other Dressing Epifix -Primary Dressing Covered/Secured with Dry Gauze & Dry Gauze & Dry Gauze & Roll Gauze, Roll Gauze, Roll Gauze, Secured with Secured with Secured with Tape Tape Tape Treatment Response Procedure Tolerated Well Pain Scale: 0-10 Numeric Is Patient Pain Free? Yes Yes Yes WC - Visit Discharge Discharge Condition Stable Stable Stable Ambulatory Status Ambulatory Ambulatory Ambulatory Transportation Private Auto Private Auto Private Auto Medication Reconcilliation completed & No No provided to patient/care provider Clinical Summary of Care Provided Yes Yes Assessment/Plan Assessment/Plan (1) Diabetes mellitus with foot ulcer: CODE(S): E11.621 - Type 2 diabetes mellitus with foot ulcer; L97.509 - Non-pressure chronic ulcer of other part of unspecified foot with unspecified severity (2) Ulcer of right foot with fat layer exposed: CODE(S): L97.512 - Non-pressure chronic ulcer of other part of right foot with fat layer exposed (3) Diabetes mellitus type 1: CODE(S): E10.9 - Type 1 diabetes mellitus without complications QUALIFIERS: Diabetes mellitus complication detail: without coma Diabetes mellitus complication status: with hypoglycemia Qualified Code(s): E10.649 - Type 1 diabetes mellitus with hypoglycemia without coma (4) Delayed wound healing: CODE(S): T14.8XXD - Other injury of unspecified body region, subsequent encounter (5) Diabetic neuropathy: CODE(S): E11.40 - Type 2 diabetes mellitus with diabetic neuropathy, unspecified QUALIFIERS: Diabetes mellitus complication detail: diabetic polyneuropathy Diabetes mellitus type: type 1 Qualified Code(s): E10.42 - Type 1 diabetes mellitus with diabetic polyneuropathy PLAN: Plan Patient seen and evaluated Ulceration subfourth metatarsal head of the right foot was debrided as noted in the clinical panel above. Ulceration measures 0.7 cm x 0.7 cm x 0.2 cm. EpiFix graft #5 applied to the wound bed and dressed with Adaptic touch and anchored with Steri-Strips. Dry sterile dressing applied to the right foot. He is instructed to change outer dressings as needed. He is instructed to keep the dressings clean, dry, and intact and to not get the site wet. He was advised to utilize cast bag when showering to keep the dressings dry. Ulceration demonstrates reduction in size versus previous visit Recommended continued offloading in CAM boot to the right foot with plantar offloading padding. Surgical shoe also offloaded so that he may wear this when getting up to go to the bathroom at night. Otherwise will remain in cam boot with plantar offloading padding. Discussed proper diabetic diet and tight glycemic control to continue to aid in healing of his ulceration. Discussed adequate protein intake to continue to aid in wound healing. Bhaskar supplementation also recommended to aid in wound healing. Discussed signs of infection today. He was instructed if he notices increasing redness about the ulcerative site that moves up onto the foot or up his leg, if he notices purulent drainage from the wound site, if he notices increasing foul odor from the wound, or if he develops fever greater than 101 degree, or nausea, or vomiting, or chills, that these are signs of a progressing infection and he should report to the ED to receive IV antibiotics. He voices understanding of this. The following work up and care recommendations were made: Dressing: EpiFix graft, Adaptic touch, Steri-Strips, dry sterile dressing. Do not get wet. May change outer dressing as needed Wash: Do not get wet Tissue growth optimization: EpiFix Offload: Plantar offloading padding and CAM boot right foot Vascular: DP and PT pulses Palpable with adequate capillary fill time. Do not feel vascular status is impacting wound healing. Edema: No signs of pedal edema Infection: No signs of infection Pain: No pain secondary to diabetic peripheral polyneuropathy Host factors: DM type I with peripheral polyneuropathy, patient's himself as iatrogenic cause to ulcer, pressure I answered all the patient's questions. To return to the wound healing center in 1 week or call sooner if the patient has any questions or concerns.
[2023-09-04 09:01] VITALS: BP 143/80; PULSE 84; RESP 16; TEMP 35.8; BMI 35.9
[2023-09-11 09:01] VITALS: BP 140/97; PULSE 92; RESP 18; TEMP 35.8; BMI 35.9
--- NOTE | 2023-09-11 09:14 | PN.PCM_ITS ---
History of Present Illness Date of Service: 09/11/23 Chief Complaint: right plantar foot ulcer and right leg ulcer History of Wound: This 38-year-old diabetic male presents to the wound healing center for a subfourth metatarsal ulceration of the right foot. 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 He states he tried to care for the ulceration for roughly 2 to 3 weeks in which it was not healing and presented to office. In office he did undergo debridement of the site continued offloading in cam boot however did not obtain his dressing supplies and was performing daily changes of wet to dry gauze. He was referred to the wound care center for applications of advanced wound care product. He states no pain secondary to diabetic peripheral polyneuropathy. He denies N/V/F/chills. He denies further complaints. Subjective Subjective This is a 38-year-old male who presents to the wound care center for follow-up of a plantar fourth metatarsal ulceration of the right foot. He is continued offloading site in CAM boot and surgical shoe with plantar offloading padding. He has left grafting product in place to the wound bed and is changing outer dressing as needed. He denies constitutional symptoms. Denies further complaints. Objective Data Objective Data Vital Signs: Vital Signs Temp Pulse Resp BP O2 Del Method 96.5 F L 92 18 140/97 H Room Air 09/11/23 09:01 09/11/23 09:01 09/11/23 09:01 09/11/23 09:01 09/11/23 09:01 Oxygen Delivery Method Room Air Weight: 120.202 kg Body Mass Index (BMI) 35.9 Physical Exam Const alert, oriented x3 and no apparent distress General Appearance: cooperative HEENT normocephalic Eyes General Eye: normal appearance of both eyes Neck General: normal visual inspection Lymph Lymphatic: no lymphadenopathy noted and no lymphedema noted Resp normal respiratory effort Cardio regular rate and regular rhythm Extremity normal capillary refill, no joint enlargement, no calf tenderness and no pedal edema Extremity Narrative: DP and PT pulses palpable right foot. Capillary fill time less than 4 seconds to digits right foot. No pedal edema is noted. Dermatological: Skin is mildly xerotic to the plantar aspect. There is a ulceration subfourth metatarsal head with surrounding hyperkeratotic tissue and healthy appearing granular layer. There is scant serosanguineous drainage. No erythema, no purulent drainage, no malodor, no palpable fluctuance/bogginess noted, no visible abscess formation, no lymphangitic streaking. Musculoskeletal: Muscle strength 5 of 5 age-appropriate. Partial fifth ray amputation is noted to the right foot. Decreased range of motion of the ankle joint in dorsiflexion with the knee extended without pain or crepitus. Decreased range of motion of the first metatarsophalangeal joint without pain or crepitus. Skin no rashes or lesions noted, skin turgor normal and no jaundice Neuro moves all extremities Neuro Narrative: Decreased protective sensation secondary to diabetic peripheral polyneuropathy Debridement Note Debridement Note Wound debrided: Subfourth metatarsal head Laterality: Right Wound Grade/Stage: Reynoso stage I Type of Debridement: Excisional debridement Anesthesia Used: 5% Lidocaine Gel Depth: Down to and including healthy tissue and in the subcutaneous layer Percentage of wound debrided: 100 Instrument Used: 3mm curette and #15 blade Tissue Removed: Fibrous, devitalized subcutaneous, biofilm, slough Severity: Fat Layer Exposed Amount of bleeding with debridement: Mild Bleeding Controlled with: Compression and gauze Patient tolerated procedure: Patient tolerated procedure well Post-Debridement Measurements and Additional Note: Post-Debridement Measurements/Treatment WC - Nurse 1 - General Ulcer Assessment Start: 08/14/23 08:59 Freq: Status: Active Protocol: [email or web address] Activity Type Activity Date Activity User E-sign Co-sign Detail Recorded Client Recorded Date Recorded By Document 08/14/23 09:00 DL Desktop 08/14/23 09:11 DL Document 08/21/23 08:56 KW Desktop 08/21/23 09:02 KW Edit Result 08/21/23 08:56 KW (1) Desktop 08/21/23 09:05 KW Document 08/28/23 08:59 KW Desktop 08/28/23 09:02 KW Document 09/04/23 09:01 KW Desktop 09/04/23 09:11 KW Document 09/11/23 09:01 KW Desktop 09/11/23 09:14 KW (1) Right Footwear Regular Shoe => Removable Cast => Walker/Walking => Boot 08/14/23 08/21/23 08/28/23 09:00 08:56 08:59 WC - Today's Visit Information Type of service Follow-up Visit Follow-up Visit Follow-up Visit (Physician/FINISHING ROOM OPERATOR (Physician/FINISHING ROOM OPERATOR (Physician/FINISHING ROOM OPERATOR ) ) ) Arrival Mode Ambulatory Ambulatory Ambulatory Transfer Assistance None Patient Identification Verified (Name & Yes Yes Yes ) Patient Requires Transmission-Based No Precautions Finger Stick Blood Sugar(mg/dl) (if 232 142 indicated): Blood Sugar Stated by Stated by Patient Patient Height and Weight Body Mass Index (BMI) 35.9 35.9 35.9 BMI Classification Obese Obese Obese Vital Signs Temperature (97.8 F-99.1 F) 97.8 F 97.0 F L 97.1 F L Temperature Source Temporal Temporal Temporal Pulse Rate (60-100) 92 92 93 Pulse Location Monitor Monitor Monitor Respiratory Rate (12-18) 20 H 18 16 Respiratory rate source Observation Observation Observation Oxygen Delivery Method Room Air Room Air Blood Pressure (90/60-120/80) 122/60 H 129/74 H 161/78 H Blood Pressure Mean (mm Hg) 80 92 105 Source Monitor Monitor Monitor Position Semi-Fowlers Semi-Fowlers Blood Pressure Location Left Arm Left Arm History Since Last Visit- (Skip if this is Patient's initial visit) Have you changed medications since your No No No last visit? Any new allergies or adverse reactions No No No Had a fall/change in ADL's that may No No No increase risk of falls Signs or symptoms of abuse and/or No No No neglect since last visit Have you been in the hospital since your No No No last visit? Has dressing in place as prescribed Yes Yes Yes Has compression in place as prescribed Yes N/A No Has offloadiing in place as prescribed Yes Yes Yes Experienced any changes in pain level or No No No management Left Footwear Regular Shoe Regular Shoe Regular Shoe Right Footwear Removable Cast Removable Cast Removable Cast Walker/Walking Walker/Walking Walker/Walking Boot Boot Boot Pain Scale: 0-10 Numeric Is Patient Pain Free? Yes Yes Yes 09/04/23 09/11/23 09:01 09:01 WC - Today's Visit Information Type of service Follow-up Visit Follow-up Visit (Physician/FINISHING ROOM OPERATOR (Physician/FINISHING ROOM OPERATOR ) ) Arrival Mode Ambulatory Ambulatory Transfer Assistance Patient Identification Verified (Name & Yes Yes ) Patient Requires Transmission-Based Precautions Finger Stick Blood Sugar(mg/dl) (if 123 indicated): Blood Sugar Stated by Patient Height and Weight Body Mass Index (BMI) 35.9 35.9 BMI Classification Obese Obese Vital Signs Temperature (97.8 F-99.1 F) 96.4 F L 96.5 F L Temperature Source Temporal Temporal Pulse Rate (60-100) 84 92 Pulse Location Monitor Monitor Respiratory Rate (12-18) 16 18 Respiratory rate source Observation Observation Oxygen Delivery Method Room Air Room Air Blood Pressure (90/60-120/80) 143/80 H 140/97 H Blood Pressure Mean (mm Hg) 101 111 Source Monitor Monitor Position Semi-Fowlers Semi-Fowlers Blood Pressure Location Left Arm Left Arm History Since Last Visit- (Skip if this is Patient's initial visit) Have you changed medications since your No No last visit? Any new allergies or adverse reactions No No Had a fall/change in ADL's that may No No increase risk of falls Signs or symptoms of abuse and/or No No neglect since last visit Have you been in the hospital since your No No last visit? Has dressing in place as prescribed Yes Yes Has compression in place as prescribed N/A Yes Has offloadiing in place as prescribed Yes N/A Experienced any changes in pain level or No No management Left Footwear Regular Shoe Regular Shoe Right Footwear Removable Cast Removable Cast Walker/Walking Walker/Walking Boot Boot Pain Scale: 0-10 Numeric Is Patient Pain Free? Yes Yes WC - Nurse 1 - General Ulcer Measurement Start: 08/14/23 08:59 Freq: Status: Active Protocol: Activity Type Activity Date Activity User E-sign Co-sign Detail Recorded Client Recorded Date Recorded By Document 08/14/23 09:00 DL Desktop 08/14/23 09:11 DL Document 08/21/23 08:56 KW Desktop 08/21/23 09:02 KW Edit Result 08/21/23 08:56 KW (1) Desktop 08/21/23 09:04 KW Document 08/28/23 08:59 KW Desktop 08/28/23 09:02 KW Document 09/04/23 09:01 KW Desktop 09/04/23 09:11 KW Document 09/11/23 09:01 KW Desktop 09/11/23 09:14 KW (1) #4 Lateral Right Plantar Foot - Combined with other wound => No - Current Size (cm) - Length => 0.8 - Current Size (cm) - Width => 0.9 - Current Size (cm) - Depth => 0.2 - Total Square Cm => 0.72 - Photo Taken => Yes - Epithelialization => Small 1-33% - Tunneling => No - Undermining/Tunneling => Yes - Undermining/Tunneling Starts (O'clock) => 12 - Undermining/Tunneling Ends (O'clock) => 3 - Maximum Distance (cm) => 0.4 - Circular Undermining => No - Exudate Amt => Small - Exudate Type => Serosanguineous - Wound Margin => Flat & Intact - Granulation Amt => Large (67-100%) - Granulation Quality => Red - Slough/Fibrin => Yes - Necrosis Amt => Small (1-33%) - Necrotic Tissue Type => Adherent Slough - Structure Exposed => N/A - Texture (Yu-wound Skin Appearance) => Assessed,Callus - Moisture (Yu-wound Skin Appearance) => Assessed - Color (Yu-wound Skin Appearance) => Assessed - Temperature (Yu-wound Skin => No Abnormality (Pt Appearance) => Warm) - Tenderness on Palpation (Yu-wound => No Skin Appearance) - Ulcer Cleansing => Wound Cleanser - Foul Odor after Cleansing => No - Anesthetic Used => 5% Lidocaine Gel 08/14/23 08/21/23 08/28/23 09:00 08:56 08:59 Wound Center Nurse 1 #4 Lateral Right Plantar Foot -Combined with other wound No -Current Size (cm) - Length 0.9 0.8 0.8 -Current Size (cm) - Width 1.2 0.9 0.9 -Current Size (cm) - Depth 0.2 0.2 0.2 -Total Square Cm 1.08 0.72 0.72 -Photo Taken Yes -Epithelialization Small 1-33% -Tunneling No -Tunneling Position (O'clock) -Tunneling Distance (cm) -Undermining/Tunneling Yes Yes -Undermining/Tunneling Starts (O'clock 12 10 ) -Undermining/Tunneling Ends (O'clock) 3 4 -Maximum Distance (cm) 0.4 0.4 -Circular Undermining No -Exudate Amt Medium Small -Exudate Type Serosanguineous Serosanguineous -Wound Margin Distinct, Flat & Intact Thickened Outline Attached -Granulation Amt Large (67-100%) Large (67-100%) Large (67-100%) -Granulation Quality [place] -Slough/Fibrin Yes -Necrosis Amt Small (1-33%) Small (1-33%) -Necrotic Tissue Type Adherent Slough Adherent Slough -Structure Exposed N/A N/A -Texture (Yu-wound Skin Appearance) Callus,Scarring Assessed,Callus As sessed,Callus -Moisture (Yu-wound Skin Appearance) No Abnormality Assessed Maceration -Color (Yu-wound Skin Appearance) No Abnormality Assessed Assessed -Temperature (Yu-wound Skin No Abnormality No Abnormality No Abnormality Appearance) (Pt Warm) (Pt Warm) (Pt Warm) -Tenderness on Palpation (Yu-wound No No Skin Appearance) -Ulcer Cleansing Soap and Water Wound Cleanser Rinsed/ Irrigated with Saline -Foul Odor after Cleansing No No -Anesthetic Used 5% Lidocaine 5% Lidocaine 5% Lidocaine Gel Gel Gel Lower Limb Edema Present NA 09/04/23 09/11/23 09:01 09:01 Wound Center Nurse 1 #4 Lateral Right Plantar Foot -Combined with other wound -Current Size (cm) - Length 0.6 0.5 -Current Size (cm) - Width 0.6 0.5 -Current Size (cm) - Depth 0.2 0.1 -Total Square Cm 0.36 0.25 -Photo Taken -Epithelialization -Tunneling Yes -Tunneling Position (O'clock) 12 -Tunneling Distance (cm) 0.2 -Undermining/Tunneling Yes -Undermining/Tunneling Starts (O'clock 12 ) -Undermining/Tunneling Ends (O'clock) 1 -Maximum Distance (cm) 0.3 -Circular Undermining -Exudate Amt Small Small -Exudate Type Serosanguineous Serosanguineous -Wound Margin Distinct, Distinct, Outline Outline Attached Attached -Granulation Amt Large (67-100%) Large (67-100%) -Granulation Quality Red Red -Slough/Fibrin -Necrosis Amt -Necrotic Tissue Type -Structure Exposed -Texture (Yu-wound Skin Appearance) Assessed,Callus Assessed,Callus -Moisture (Yu-wound Skin Appearance) Assessed,Dry/ Assessed Scaly -Color (Yu-wound Skin Appearance) Assessed Assessed -Temperature (Yu-wound Skin No Abnormality No Abnormality Appearance) (Pt Warm) (Pt Warm) -Tenderness on Palpation (Yu-wound Skin Appearance) -Ulcer Cleansing Soap and Water Soap and Water -Foul Odor after Cleansing No -Anesthetic Used 5% Lidocaine 5% Lidocaine Gel Gel Lower Limb Edema Present WC - Nurse 2 - General Ulcer CM Notes Start: 08/14/23 08:59 Freq: Status: Active Protocol: Activity Type Activity Date Activity User E-sign Co-sign Detail Recorded Client Recorded Date Recorded By Document 08/14/23 10:28 PL Tablet 08/14/23 10:30 PL Document 08/21/23 11:58 PL [id number] 08/21/23 12:00 PL Edit Result 08/21/23 11:58 PL (1) [id number] 08/21/23 12:02 PL Document 08/28/23 09:46 PL Tablet 08/28/23 09:50 PL Document 09/04/23 12:06 PL [id number] 09/04/23 12:08 PL (1) #4 Lateral Right Plantar Foot - Bioengineered Tissue No => Yes - Type of Bioengineered Tissue => Epifix 18mm Disc - Expiration Date => 04/13/28 - Product Lot Number => [id number] - Percent Used => 100 - Debridement - Subq, 1st 20sq cm Yes => No - Apply Skin Sub - 1st 25 sq cm - Feet => 1 - Epifix 18mm Disc => 3 08/14/23 08/21/23 08/28/23 10:28 11:58 09:46 Wound Center Nurse 2 #4 Lateral Right Plantar Foot -Time 09:15 09:15 09:15 -Correct Patient Yes Yes Yes -Correct Side, Site, Position Yes Yes Yes -Correct Procedure Yes Yes Yes -Procedure Performed Yes Yes Yes -Type of Procedure Debridement Debridement Debridement -Clinical Debridement Subcutaneous Subcutaneous Subcutaneous -Tissue Removed Subcutaneous Subcutaneous Subcutaneous -Post Debridement (cm) - Length 1.0 0.9 1.0 -Post Debridement (cm) - Width 1.0 1.0 0.9 -Post Debridement (cm) - Depth 0.1 0.1 0.1 -Total Square (Post) (cm) 1.00 0.90 0.90 -Area of Debridement (cm) - Length 1.0 0.9 1.0 -Area of Debridement (cm) - Width 1.0 1.0 0.9 -Total Square (Area) (cm) 1.00 0.90 0.90 -Tunneling No No No -Undermining/Tunneling No No No -Circular Undermining No No No -Wound/Ulcer Outcome Not Healed Not Healed Not Healed -Ulcer Cleansing Rinsed/ Rinsed/ Rinsed/ Irrigated with Irrigated with Irrigated with Saline Saline Saline -Foul Odor after Cleansing No No No -Bioengineered Tissue Yes Yes Yes -Type of Bioengineered Tissue Epifix 18mm Epifix 18mm Epifix 18mm Disc Disc Disc -Expiration Date 03/14/28 04/13/28 04/13/28 -Product Lot Number [id number] -Percent Used 100 100 100 -Bleeding Controlled with Pressure Pressure Pressure -Treatment Response Procedure Procedure Procedure Tolerated Well Tolerated Well Tolerated Well -Debridement - Subq, 1st 20sq cm No No No -Apply Skin Sub - 1st 25 sq cm - Feet 1 1 1 -Epifix 18mm Disc 3 3 3 Pain Scale: 0-10 Numeric Is Patient Pain Free? Yes Yes Yes 09/04/23 12:06 Wound Center Nurse 2 #4 Lateral Right Plantar Foot -Time 09:18 -Correct Patient Yes -Correct Side, Site, Position Yes -Correct Procedure Yes -Procedure Performed Yes -Type of Procedure Debridement -Clinical Debridement Subcutaneous -Tissue Removed Subcutaneous -Post Debridement (cm) - Length 0.7 -Post Debridement (cm) - Width 0.7 -Post Debridement (cm) - Depth 0.1 -Total Square (Post) (cm) 0.49 -Area of Debridement (cm) - Length 0.7 -Area of Debridement (cm) - Width 0.7 -Total Square (Area) (cm) 0.49 -Tunneling No -Undermining/Tunneling No -Circular Undermining No -Wound/Ulcer Outcome Not Healed -Ulcer Cleansing Rinsed/ Irrigated with Saline -Foul Odor after Cleansing No -Bioengineered Tissue Yes -Type of Bioengineered Tissue Epifix 18mm Disc -Expiration Date 04/13/28 -Product Lot Number [id number] -Percent Used 100 -Bleeding Controlled with Pressure -Treatment Response Procedure Tolerated Well -Debridement - Subq, 1st 20sq cm No -Apply Skin Sub - 1st 25 sq cm - Feet 1 -Epifix 18mm Disc 3 Pain Scale: 0-10 Numeric Is Patient Pain Free? Yes - Nurse 3 - General Ulcer D/C NN Start: 08/14/23 08:59 Freq: Status: Active Protocol: Activity Type Activity Date Activity User E-sign Co-sign Detail Recorded Client Recorded Date Recorded By Document 08/14/23 09:33 DL Desktop 08/14/23 09:34 DL Document 08/21/23 09:26 KW Desktop 08/21/23 09:26 KW Document 08/28/23 09:38 KW Desktop 08/28/23 09:38 KW Document 09/04/23 09:29 KW Desktop 09/04/23 09:30 KW 08/14/23 08/21/23 08/28/23 09:33 09:26 09:38 Wound Care Center Nurse 3 #4 Lateral Right Plantar Foot -Ulcer Cleansing Not Cleansed -Foul Odor after Cleansing No -Other Dressing Epifix -Primary Dressing Covered/Secured with Dry Gauze & Dry Gauze & Dry Gauze & Roll Gauze, Roll Gauze, Roll Gauze, Secured with Secured with Secured with Tape Tape Tape Treatment Response Procedure Tolerated Well Pain Scale: 0-10 Numeric Is Patient Pain Free? Yes Yes Yes - Visit Discharge Discharge Condition Stable Stable Stable Ambulatory Status Ambulatory Ambulatory Ambulatory Transportation Private Auto Private Auto Private Auto Medication Reconcilliation completed & No No provided to patient/care provider Clinical Summary of Care Provided Yes Yes 09/04/23 09:29 Wound Care Center Nurse 3 #4 Lateral Right Plantar Foot -Ulcer Cleansing -Foul Odor after Cleansing -Other Dressing -Primary Dressing Covered/Secured with Dry Gauze & Roll Gauze, Secured with Tape Treatment Response Pain Scale: 0-10 Numeric Is Patient Pain Free? Yes WC - Visit Discharge Discharge Condition Stable Ambulatory Status Ambulatory Transportation Private Auto Medication Reconcilliation completed & No provided to patient/care provider Clinical Summary of Care Provided Yes Assessment/Plan Assessment/Plan (1) Diabetes mellitus with foot ulcer: CODE(S): E11.621 - Type 2 diabetes mellitus with foot ulcer; L97.509 - Non-pressure chronic ulcer of other part of unspecified foot with unspecified severity (2) Ulcer of right foot with fat layer exposed: CODE(S): L97.512 - Non-pressure chronic ulcer of other part of right foot with fat layer exposed (3) Diabetes mellitus type 1: CODE(S): E10.9 - Type 1 diabetes mellitus without complications QUALIFIERS: Diabetes mellitus complication detail: without coma Diabetes mellitus complication status: with hypoglycemia Qualified Code(s): E10.649 - Type 1 diabetes mellitus with hypoglycemia without coma (4) Delayed wound healing: CODE(S): T14.8XXD - Other injury of unspecified body region, subsequent encounter (5) Diabetic neuropathy: CODE(S): E11.40 - Type 2 diabetes mellitus with diabetic neuropathy, unspecified QUALIFIERS: Diabetes mellitus complication detail: diabetic polyneuropathy Diabetes mellitus type: type 1 Qualified Code(s): E10.42 - Type 1 diabetes mellitus with diabetic polyneuropathy PLAN: Plan Patient seen and evaluated Ulceration subfourth metatarsal head of the right foot was debrided as noted in the clinical panel above. Ulceration measures 0.6 cm x 0.6 cm x 0.2 cm. EpiFix graft #6 applied to the wound bed and dressed with Adaptic touch and anchored with Steri-Strips. Dry sterile dressing applied to the right foot. He is instructed to change outer dressings as needed. He is instructed to keep the dressings clean, dry, and intact and to not get the site wet. He was advised to utilize cast bag when showering to keep the dressings dry. Ulceration demonstrates reduction in size versus previous visit Recommended continued offloading in CAM boot to the right foot with plantar offloading padding. Surgical shoe also offloaded so that he may wear this when getting up to go to the bathroom at night. Otherwise will remain in CAM boot with plantar offloading padding. Discussed proper diabetic diet and tight glycemic control to continue to aid in healing of his ulceration. Discussed adequate protein intake to continue to aid in wound healing. Bhaskar supplementation also recommended to aid in wound healing. Discussed signs of infection today. He was instructed if he notices increasing redness about the ulcerative site that moves up onto the foot or up his leg, if he notices purulent drainage from the wound site, if he notices increasing foul odor from the wound, or if he develops fever greater than 101 degree, or nausea, or vomiting, or chills, that these are signs of a progressing infection and he should report to the ED to receive IV antibiotics. He voices understanding of this. The following work up and care recommendations were made: Dressing: EpiFix graft, Adaptic touch, Steri-Strips, dry sterile dressing. Do not get wet. May change outer dressing as needed Wash: Do not get wet Tissue growth optimization: EpiFix Offload: Plantar offloading padding and CAM boot right foot Vascular: DP and PT pulses Palpable with adequate capillary fill time. Do not feel vascular status is impacting wound healing. Edema: No signs of pedal edema Infection: No signs of infection Pain: No pain secondary to diabetic peripheral polyneuropathy Host factors: DM type I with peripheral polyneuropathy, patient's himself as iatrogenic cause to ulcer, pressure I answered all the patient's questions. To return to the wound healing center in 1 week or call sooner if the patient has any questions or concerns.
== END 2023-09-11 23:59 | disposition home or self-care (01) ==
LOC: WC 09:00
PROVIDERS: PCP Internal Medicine; Referring Provider Student in an Organized Health Care Education/Training Program; Visit Provider Student in an Organized Health Care Education/Training Program
DX: E10.621 Type 1 diabetes mellitus with foot ulcer (principal); L97.512 Non-pressure chronic ulcer of other part of right foot with fat layer exposed; E10.42 Type 1 diabetes mellitus with diabetic polyneuropathy; E10.649 Type 1 diabetes mellitus with hypoglycemia without coma
CPT/HCPCS: 11042; 15275; Q4186

== ENCOUNTER 2023-10-09 09:15 | Outpatient (RCR) | payer MEDICAID, SELFPAY ==
[2023-09-12 00:30] VITALS: BP 140/97; PULSE 92; RESP 18; TEMP 35.8; BMI 35.9
[2023-09-18 09:35] VITALS: BP 136/84; PULSE 103; RESP 20; TEMP 36.6; BMI 35.9
--- NOTE | 2023-09-18 09:42 | PCM.WC.PN ---
History of Present Illness Date of Service: 09/18/23 Chief Complaint: right plantar foot ulcer and right leg ulcer History of Wound: This 38-year-old diabetic male presents to the wound healing center for a subfourth metatarsal ulceration of the right foot. 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 He states he tried to care for the ulceration for roughly 2 to 3 weeks in which it was not healing and presented to office. In office he did undergo debridement of the site continued offloading in cam boot however did not obtain his dressing supplies and was performing daily changes of wet to dry gauze. He was referred to the wound care center for applications of advanced wound care product. He states no pain secondary to diabetic peripheral polyneuropathy. He denies N/V/F/chills. He denies further complaints. Subjective Subjective This is a 38-year-old male who presents to the wound care center for follow-up of a plantar fourth metatarsal ulceration of the right foot. He is continued offloading site in CAM boot and surgical shoe with plantar offloading padding. He has left grafting product in place to the wound bed and is changing outer dressing as needed. He feels the wound is getting smaller. He denies constitutional symptoms. Denies further complaints. Objective Data Objective Data Vital Signs: Vital Signs Temp Pulse Resp BP 96.5 F L 92 18 140/97 H 09/12/23 00:30 09/12/23 00:30 09/12/23 00:30 09/12/23 00:30 Weight: 120.202 kg Body Mass Index (BMI) 35.9 Physical Exam Const alert, oriented x3 and no apparent distress General Appearance: cooperative HEENT normocephalic Eyes General Eye: normal appearance of both eyes Neck General: normal visual inspection Lymph Lymphatic: no lymphadenopathy noted and no lymphedema noted Resp normal respiratory effort Cardio regular rate and regular rhythm Extremity normal capillary refill, no joint enlargement, no calf tenderness and no pedal edema Extremity Narrative: DP and PT pulses palpable right foot. Capillary fill time less than 4 seconds to digits right foot. No pedal edema is noted. Dermatological: Skin is mildly xerotic to the plantar aspect. There is a ulceration subfourth metatarsal head with surrounding hyperkeratotic tissue and healthy appearing granular layer. There is scant serosanguineous drainage. No erythema, no purulent drainage, no malodor, no palpable fluctuance/bogginess noted, no visible abscess formation, no lymphangitic streaking. Musculoskeletal: Muscle strength 5 of 5 age-appropriate. Partial fifth ray amputation is noted to the right foot. Decreased range of motion of the ankle joint in dorsiflexion with the knee extended without pain or crepitus. Decreased range of motion of the first metatarsophalangeal joint without pain or crepitus. Skin no rashes or lesions noted, skin turgor normal and no jaundice Neuro moves all extremities Debridement Note Debridement Note Wound debrided: Subfourth metatarsal head right foot Laterality: Right Wound Grade/Stage: Reynoso stage I Type of Debridement: Excisional debridement Anesthesia Used: 5% Lidocaine Gel Depth: Down to and including healthy tissue and in the subcutaneous layer Percentage of wound debrided: 100 Instrument Used: 3mm curette Tissue Removed: Fibrous, devitalized subcutaneous, biofilm, slough Severity: Fat Layer Exposed Amount of bleeding with debridement: Mild Bleeding Controlled with: Compression and gauze Patient tolerated procedure: Patient tolerated procedure well Assessment/Plan Assessment/Plan (1) Ulcer of right foot with fat layer exposed: CODE(S): L97.512 - Non-pressure chronic ulcer of other part of right foot with fat layer exposed (2) Type 1 diabetes mellitus with diabetic polyneuropathy: CODE(S): E10.42 - Type 1 diabetes mellitus with diabetic polyneuropathy (3) Diabetes mellitus with foot ulcer: CODE(S): E11.621 - Type 2 diabetes mellitus with foot ulcer; L97.509 - Non-pressure chronic ulcer of other part of unspecified foot with unspecified severity (4) Delayed wound healing: CODE(S): T14.8XXD - Other injury of unspecified body region, subsequent encounter PLAN: Plan Patient seen and evaluated Ulceration subfourth metatarsal head of the right foot was debrided as noted in the clinical panel above. Ulceration measures 0.5 cm x 0.3 cm x 0.2 cm. EpiFix graft #7 applied to the wound bed and dressed with Adaptic touch and anchored with Steri-Strips. Dry sterile dressing applied to the right foot. He is instructed to change outer dressings as needed. He is instructed to keep the dressings clean, dry, and intact and to not get the site wet. He was advised to utilize cast bag when showering to keep the dressings dry. Ulceration demonstrates reduction in size versus previous visit Recommended continued offloading in CAM boot to the right foot with plantar offloading padding. Surgical shoe also offloaded so that he may wear this when getting up to go to the bathroom at night. Otherwise will remain in CAM boot with plantar offloading padding. Discussed proper diabetic diet and tight glycemic control to continue to aid in healing of his ulceration. Discussed adequate protein intake to continue to aid in wound healing. Bhaskar supplementation also recommended to aid in wound healing. Discussed signs of infection today. He was instructed if he notices increasing redness about the ulcerative site that moves up onto the foot or up his leg, if he notices purulent drainage from the wound site, if he notices increasing foul odor from the wound, or if he develops fever greater than 101 degree, or nausea, or vomiting, or chills, that these are signs of a progressing infection and he should report to the ED to receive IV antibiotics. He voices understanding of this. The following work up and care recommendations were made: Dressing: EpiFix graft, Adaptic touch, Steri-Strips, dry sterile dressing. Do not get wet. May change outer dressing as needed Wash: Do not get wet Tissue growth optimization: EpiFix Offload: Plantar offloading padding and CAM boot right foot Vascular: DP and PT pulses Palpable with adequate capillary fill time. Do not feel vascular status is impacting wound healing. Edema: No signs of pedal edema Infection: No signs of infection Pain: No pain secondary to diabetic peripheral polyneuropathy Host factors: DM type I with peripheral polyneuropathy, patient's himself as iatrogenic cause to ulcer, pressure I answered all the patient's questions. To return to the wound healing center in 1 week or call sooner if the patient has any questions or concerns.
[2023-09-25 09:17] VITALS: BP 115/76; PULSE 87; RESP 18; TEMP 36.6; BMI 35.9
--- NOTE | 2023-09-25 09:17 | PCM.WC.PN ---
History of Present Illness Date of Service: 09/25/23 Chief Complaint: right plantar foot ulcer and right leg ulcer History of Wound: This 38-year-old diabetic male presents to the wound healing center for a subfourth metatarsal ulceration of the right foot. 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 He states he tried to care for the ulceration for roughly 2 to 3 weeks in which it was not healing and presented to office. In office he did undergo debridement of the site continued offloading in cam boot however did not obtain his dressing supplies and was performing daily changes of wet to dry gauze. He was referred to the wound care center for applications of advanced wound care product. He states no pain secondary to diabetic peripheral polyneuropathy. He denies N/V/F/chills. He denies further complaints. Subjective Subjective This is a 38-year-old male who presents to the wound care center for follow-up of a plantar fourth metatarsal ulceration of the right foot. He is continued offloading site in CAM boot and surgical shoe with plantar offloading padding. He has left grafting product in place to the wound bed and is changing outer dressing as needed. 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 He denies constitutional symptoms. Denies further complaints. Objective Data Objective Data Vital Signs: Vital Signs Temp Pulse Resp BP 97.9 F 103 H 20 H 136/84 H 09/18/23 09:35 09/18/23 09:35 09/18/23 09:35 09/18/23 09:35 Weight: 120.202 kg Body Mass Index (BMI) 35.9 Physical Exam Const alert, oriented x3 and no apparent distress General Appearance: cooperative HEENT normocephalic Eyes General Eye: normal appearance of both eyes Neck General: normal visual inspection Lymph Lymphatic: no lymphadenopathy noted and no lymphedema noted Resp normal respiratory effort Cardio regular rate and regular rhythm Extremity normal capillary refill, no joint enlargement, no calf tenderness and no pedal edema Extremity Narrative: DP and PT pulses palpable right foot. Capillary fill time less than 4 seconds to digits right foot. No pedal edema is noted. Dermatological: Skin is mildly xerotic to the plantar aspect. There is a ulceration subfourth metatarsal head with surrounding hyperkeratotic tissue and healthy appearing granular layer. There is scant serosanguineous drainage. No erythema, no purulent drainage, no malodor, no palpable fluctuance/bogginess noted, no visible abscess formation, no lymphangitic streaking. Musculoskeletal: Muscle strength 5 of 5 age-appropriate. Partial fifth ray amputation is noted to the right foot. Decreased range of motion of the ankle joint in dorsiflexion with the knee extended without pain or crepitus. Decreased range of motion of the first metatarsophalangeal joint without pain or crepitus. Skin no rashes or lesions noted, skin turgor normal and no jaundice Neuro moves all extremities Debridement Note Debridement Note Wound debrided: Subfourth metatarsal head right foot Laterality: Right Wound Grade/Stage: Reynoso stage I Type of Debridement: Excisional debridement Anesthesia Used: 5% Lidocaine Gel Depth: Down to and including healthy tissue and in the subcutaneous layer Percentage of wound debrided: 100 Instrument Used: 5mm curette, #15 blade and Forceps Tissue Removed: Fibrous, devitalized subcutaneous, biofilm, slough Severity: Fat Layer Exposed Amount of bleeding with debridement: Mild Bleeding Controlled with: Compression and gauze Patient tolerated procedure: Patient tolerated procedure well Post-Debridement Measurements and Additional Note: Post-Debridement Measurements/Treatment - Nurse 1 - General Ulcer Assessment Start: 09/18/23 09:34 Freq: Status: Active Protocol: LORI Activity Type Activity Date Activity User E-sign Co-sign Detail Recorded Client Recorded Date Recorded By Document 09/18/23 09:35 DL Desktop 09/18/23 09:43 DL Edit Result 09/18/23 09:35 DL (1) Desktop 09/18/23 09:45 DL (1) Blood Pressure (90/60-120/80) 117/93 H => 136/84 H 09/18/23 09:35 - Today's Visit Information Type of service Follow-up Visit (Physician/TABLET COATER ) Arrival Mode Ambulatory Transfer Assistance None Patient Identification Verified (Name & Yes ) Patient Requires Transmission-Based No Precautions Finger Stick Blood Sugar(mg/dl) (if 155 indicated): Blood Sugar Stated by Patient Height and Weight Body Mass Index (BMI) 35.9 BMI Classification Obese Vital Signs Temperature (97.8 F-99.1 F) 97.9 F Temperature Source Temporal Pulse Rate (60-100) 103 H Pulse Location Monitor Respiratory Rate (12-18) 20 H Respiratory rate source Observation Blood Pressure (90/60-120/80) 136/84 H Blood Pressure Mean (mm Hg) 101 Source Monitor History Since Last Visit- (Skip if this is Patient's initial visit) Have you changed medications since your No last visit? Any new allergies or adverse reactions No Had a fall/change in ADL's that may No increase risk of falls Signs or symptoms of abuse and/or No neglect since last visit Have you been in the hospital since your No last visit? Has dressing in place as prescribed Yes Has compression in place as prescribed N/A Has offloadiing in place as prescribed Yes Right Footwear Surgical Shoe with pressure relief insole Pain Scale: 0-10 Numeric Is Patient Pain Free? Yes WC - Nurse 1 - General Ulcer Measurement Start: 09/18/23 09:34 Freq: Status: Active Protocol: Activity Type Activity Date Activity User E-sign Co-sign Detail Recorded Client Recorded Date Recorded By Document 09/18/23 09:35 DL Desktop 09/18/23 09:43 DL 09/18/23 09:35 Wound Center Nurse 1 #4 Lateral Right Plantar Foot -Current Size (cm) - Length 0.5 -Current Size (cm) - Width 0.6 -Current Size (cm) - Depth 0.4 -Total Square Cm 0.30 -Maximum Distance #2 (cm) 0.2 -Circular Undermining Yes -Exudate Amt Small -Exudate Type Serosanguineous -Wound Margin Distinct, Outline Attached -Granulation Amt Small (1-33%) -Granulation Quality [place] -Necrosis Amt Small (1-33%) -Necrotic Tissue Type Adherent Slough -Structure Exposed N/A -Texture (Yu-wound Skin Appearance) Scarring -Moisture (Yu-wound Skin Appearance) Dry/Scaly -Color (Yu-wound Skin Appearance) No Abnormality -Temperature (Yu-wound Skin No Abnormality Appearance) (Pt Warm) -Ulcer Cleansing Soap and Water -Foul Odor after Cleansing No WC - Nurse 2 - General Ulcer CM Notes Start: 09/18/23 09:34 Freq: Status: Active Protocol: Activity Type Activity Date Activity User E-sign Co-sign Detail Recorded Client Recorded Date Recorded By Document 09/18/23 09:51 BMF Desktop 09/18/23 09:55 BMF Edit Result 09/18/23 09:51 BMF (1) [id number] 09/18/23 13:36 BMF Edit Result 09/18/23 09:51 BMF (2) [id number] 09/22/23 15:10 BMF Edit Result 09/18/23 09:51 BMF (3) Laptop 09/22/23 15:35 JF (1) #4 Lateral Right Plantar Foot - Debridement - Subq, 1st 20sq cm Yes => No (2) #4 Lateral Right Plantar Foot - Epifix 18mm Disc 3 => 1 (3) #4 Lateral Right Plantar Foot - Epifix 18mm Disc 1 => 3 09/18/23 09:51 Wound Center Nurse 2 -Time 09:51 -Correct Patient Yes -Correct Side, Site, Position Yes -Correct Procedure Yes -Procedure Performed Yes -Type of Procedure Debridement -Clinical Debridement Subcutaneous -Tissue Removed Subcutaneous -Post Debridement (cm) - Length 0.5 -Post Debridement (cm) - Width 0.3 -Post Debridement (cm) - Depth 0.1 -Total Square (Post) (cm) 0.15 -Area of Debridement (cm) - Length 0.5 -Area of Debridement (cm) - Width 0.3 -Total Square (Area) (cm) 0.15 -Tunneling No -Undermining/Tunneling No -Circular Undermining No -Wound/Ulcer Outcome Not Healed -Ulcer Cleansing Rinsed/ Irrigated with Saline -Foul Odor after Cleansing No -Bioengineered Tissue Yes -Type of Bioengineered Tissue Epifix 18mm Disc -Expiration Date 05/14/28 -Product Lot Number [id number] -Percent Used 100 -Lot number of Saline Used [id number] -Bleeding Controlled with Pressure -Treatment Response Procedure Tolerated Well -Offloading Yes -Type of Offloading Surgical Shoe -Other Type of Offloading CUTOUTS -Debridement - Subq, 1st 20sq cm No -Apply Skin Sub - 1st 25 sq cm - Feet 1 -Epifix 18mm Disc 3 Pain Scale: 0-10 Numeric Is Patient Pain Free? Yes - Nurse 3 - General Ulcer D/C NN Start: 09/18/23 09:34 Freq: Status: Active Protocol: Activity Type Activity Date Activity User E-sign Co-sign Detail Recorded Client Recorded Date Recorded By Document 09/18/23 10:03 DL Desktop 09/18/23 10:04 DL 09/18/23 10:03 Wound Care Center Nurse 3 #4 Lateral Right Plantar Foot -Foul Odor after Cleansing No -Other Dressing Epifix -Primary Dressing Covered/Secured with Dry Gauze & Roll Gauze, Secured with Tape -Other Covering ABD Treatment Response Procedure Tolerated Well Pain Scale: 0-10 Numeric Is Patient Pain Free? Yes WC - Visit Discharge Discharge Condition Stable Ambulatory Status Ambulatory Transportation Private Auto Assessment/Plan Assessment/Plan (1) Ulcer of right foot with fat layer exposed: CODE(S): L97.512 - Non-pressure chronic ulcer of other part of right foot with fat layer exposed (2) Type 1 diabetes mellitus with diabetic polyneuropathy: CODE(S): E10.42 - Type 1 diabetes mellitus with diabetic polyneuropathy (3) Diabetes mellitus with foot ulcer: CODE(S): E11.621 - Type 2 diabetes mellitus with foot ulcer; L97.509 - Non-pressure chronic ulcer of other part of unspecified foot with unspecified severity (4) Delayed wound healing: CODE(S): T14.8XXD - Other injury of unspecified body region, subsequent encounter PLAN: Plan Patient seen and evaluated Ulceration subfourth metatarsal head of the right foot was debrided as noted in the clinical panel above. Ulceration measures 2.5 cm x 1.5 cm x 0.2 cm. EpiFix graft #8 applied to the wound bed and dressed with Adaptic touch and anchored with Steri-Strips. Dry sterile dressing applied to the right foot. He is instructed to change outer dressings as needed. He is instructed to keep the dressings clean, dry, and intact and to not get the site wet. He was advised to utilize cast bag when showering to keep the dressings dry. Ulceration demonstrates increase in size versus previous visit secondary to his return to work and standing for long periods of time with new blister formation about wound and inability to change dressings at work. Discussed giving patient work note for time off to allow him to remain off of the wound site to allow healing. Recommended continued offloading in CAM boot to the right foot with plantar offloading padding. Surgical shoe also offloaded so that he may wear this when getting up to go to the bathroom at night. Otherwise will remain in CAM boot with plantar offloading padding. Discussed proper diabetic diet and tight glycemic control to continue to aid in healing of his ulceration. Discussed adequate protein intake to continue to aid in wound healing. Bhaskar supplementation also recommended to aid in wound healing. Discussed signs of infection today. He was instructed if he notices increasing redness about the ulcerative site that moves up onto the foot or up his leg, if he notices purulent drainage from the wound site, if he notices increasing foul odor from the wound, or if he develops fever greater than 101 degree, or nausea, or vomiting, or chills, that these are signs of a progressing infection and he should report to the ED to receive IV antibiotics. He voices understanding of this. The following work up and care recommendations were made: Dressing: EpiFix graft, Adaptic touch, Steri-Strips, dry sterile dressing. Do not get wet. May change outer dressing as needed Wash: Do not get wet Tissue growth optimization: EpiFix Offload: Plantar offloading padding and CAM boot right foot Vascular: DP and PT pulses Palpable with adequate capillary fill time. Do not feel vascular status is impacting wound healing. Edema: No signs of pedal edema Infection: No signs of infection Pain: No pain secondary to diabetic peripheral polyneuropathy Host factors: DM type I with peripheral polyneuropathy, patient's himself as iatrogenic cause to ulcer, pressure I answered all the patient's questions. To return to the wound healing center in 1 week or call sooner if the patient has any questions or concerns.
[2023-10-02 09:54] VITALS: BP 117/65; PULSE 99; RESP 20; TEMP 36.4; BMI 35.9
--- NOTE | 2023-10-02 10:06 | PCM.WC.PN ---
History of Present Illness Date of Service: 10/02/23 Chief Complaint: right plantar foot ulcer and right leg ulcer History of Wound: This 38-year-old diabetic male presents to the wound healing center for a subfourth metatarsal ulceration of the right foot. 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 He states he tried to care for the ulceration for roughly 2 to 3 weeks in which it was not healing and presented to office. In office he did undergo debridement of the site continued offloading in cam boot however did not obtain his dressing supplies and was performing daily changes of wet to dry gauze. He was referred to the wound care center for applications of advanced wound care product. He states no pain secondary to diabetic peripheral polyneuropathy. He denies N/V/F/chills. He denies further complaints. Subjective Subjective This is a 38-year-old male who presents to the wound care center for follow-up of a plantar fourth metatarsal ulceration of the right foot. He is continued offloading site in CAM boot and surgical shoe with plantar offloading padding. He has left grafting product in place to the wound bed and is changing outer dressing as needed. He states he has taken time off again from work and feels that the foot is improving as he is now staying off of it more. He denies constitutional symptoms. Denies further complaints. Objective Data Objective Data Vital Signs: Vital Signs Temp Pulse Resp BP O2 Del Method 97.5 F L 99 20 H 117/65 Room Air 10/02/23 09:54 10/02/23 09:54 10/02/23 09:54 10/02/23 09:54 09/25/23 09:17 Oxygen Delivery Method Room Air Weight: 120.202 kg Body Mass Index (BMI) 35.9 Physical Exam Const alert, oriented x3 and no apparent distress General Appearance: cooperative HEENT normocephalic Eyes General Eye: normal appearance of both eyes Neck General: normal visual inspection Lymph Lymphatic: no lymphadenopathy noted and no lymphedema noted Resp normal respiratory effort Cardio regular rate and regular rhythm Extremity normal capillary refill, no joint enlargement, no calf tenderness and no pedal edema Extremity Narrative: DP and PT pulses palpable right foot. Capillary fill time less than 4 seconds to digits right foot. No pedal edema is noted. Dermatological: Skin is mildly xerotic to the plantar aspect. There is a ulceration subfourth metatarsal head with surrounding hyperkeratotic tissue and healthy appearing granular layer. There is scant serosanguineous drainage. No erythema, no purulent drainage, no malodor, no palpable fluctuance/bogginess noted, no visible abscess formation, no lymphangitic streaking. Musculoskeletal: Muscle strength 5 of 5 age-appropriate. Partial fifth ray amputation is noted to the right foot. Decreased range of motion of the ankle joint in dorsiflexion with the knee extended without pain or crepitus. Decreased range of motion of the first metatarsophalangeal joint without pain or crepitus. Skin no rashes or lesions noted, skin turgor normal and no jaundice Neuro moves all extremities Debridement Note Debridement Note Wound debrided: Subfourth metatarsal head right foot Laterality: Right Wound Grade/Stage: Reynoso stage I Type of Debridement: Excisional debridement Anesthesia Used: 5% Lidocaine Gel Depth: Down to and including healthy tissue and in the subcutaneous layer Percentage of wound debrided: 100 Instrument Used: 3mm curette and #15 blade Tissue Removed: Fibrous, devitalized subcutaneous, biofilm, slough Severity: Fat Layer Exposed Amount of bleeding with debridement: Mild Bleeding Controlled with: Compression and gauze Patient tolerated procedure: Patient tolerated procedure well Post-Debridement Measurements and Additional Note: Post-Debridement Measurements/Treatment - Nurse 1 - General Ulcer Assessment Start: 09/18/23 09:34 Freq: Status: Active Protocol: [email or web address] Activity Type Activity Date Activity User E-sign Co-sign Detail Recorded Client Recorded Date Recorded By Document 09/18/23 09:35 DL Desktop 09/18/23 09:43 DL Edit Result 09/18/23 09:35 DL (1) Desktop 09/18/23 09:45 DL Document 09/25/23 09:17 MT Desktop 09/25/23 09:23 MT Document 10/02/23 09:54 DL Desktop 10/02/23 10:03 DL (1) Blood Pressure (90/60-120/80) 117/93 H => 136/84 H 09/18/23 09/25/23 10/02/23 09:35 09:17 09:54 - Today's Visit Information Type of service Follow-up Visit Follow-up Visit Follow-up Visit (Physician/DRUG DEPARTMENT WORKER (Physician/DRUG DEPARTMENT WORKER (Physician/DRUG DEPARTMENT WORKER ) ) ) Arrival Mode Ambulatory Ambulatory Ambulatory Transfer Assistance None None Patient Identification Verified (Name & Yes Yes Yes ) Patient Requires Transmission-Based No No Precautions Finger Stick Blood Sugar(mg/dl) (if 155 124 96 indicated): Blood Sugar Stated by Stated by Stated by Patient Patient Patient Height and Weight Body Mass Index (BMI) 35.9 35.9 35.9 BMI Classification Obese Obese Obese Vital Signs Temperature (97.8 F-99.1 F) 97.9 F 98 F 97.5 F L Temperature Source Temporal Temporal Temporal Pulse Rate (60-100) 103 H 87 99 Pulse Location Monitor Monitor Monitor Respiratory Rate (12-18) 20 H 18 20 H Respiratory rate source Observation Observation Observation Oxygen Delivery Method Room Air Blood Pressure (90/60-120/80) 136/84 H 115/76 117/65 Blood Pressure Mean (mm Hg) 101 89 82 Source Monitor Monitor Monitor Position Sitting Blood Pressure Location Left Arm History Since Last Visit- (Skip if this is Patient's initial visit) Have you changed medications since your No No last visit? Any new allergies or adverse reactions No No Had a fall/change in ADL's that may No No increase risk of falls Signs or symptoms of abuse and/or No No neglect since last visit Have you been in the hospital since your No No last visit? Has dressing in place as prescribed Yes Yes Has compression in place as prescribed N/A N/A N/A Has offloadiing in place as prescribed Yes N/A Yes Experienced any changes in pain level or No management Left Footwear Regular Shoe Right Footwear Surgical Shoe Diabetic Shoe with pressure relief insole Pain Scale: 0-10 Numeric Is Patient Pain Free? Yes Yes Yes - Nurse 1 - General Ulcer Measurement Start: 09/18/23 09:34 Freq: Status: Active Protocol: Activity Type Activity Date Activity User E-sign Co-sign Detail Recorded Client Recorded Date Recorded By Document 09/18/23 09:35 DL Desktop 09/18/23 09:43 DL Document 09/25/23 09:17 MT Desktop 09/25/23 09:23 MT Document 10/02/23 09:54 DL Desktop 10/02/23 10:03 DL 09/18/23 09/25/23 10/02/23 09:35 09:17 09:54 Wound Center Nurse 1 #4 Lateral Right Plantar Foot -Current Size (cm) - Length 0.5 0.5 0.2 -Current Size (cm) - Width 0.6 0.5 0.3 -Current Size (cm) - Depth 0.4 0.3 0.1 -Total Square Cm 0.30 0.25 0.06 -Photo Taken Yes -Tunneling Yes -Tunneling Position (O'clock) 4 -Tunneling Distance (cm) 2.8 -Undermining/Tunneling Yes -Undermining/Tunneling Starts (O'clock 12 ) -Undermining/Tunneling Ends (O'clock) 12 -Maximum Distance #2 (cm) 0.2 -Circular Undermining Yes -Exudate Amt Small Medium None Present -Exudate Type Serosanguineous Serosanguineous -Wound Margin Distinct, Thickened & Thickened Outline Rolled Under Attached -Granulation Amt Small (1-33%) Small (1-33%) -Granulation Quality [place] -Necrosis Amt Small (1-33%) Large (67-100%) None Present (0 %) -Necrotic Tissue Type Adherent Slough Adherent Slough -Structure Exposed N/A -Texture (Yu-wound Skin Appearance) Scarring Assessed,Callus Callus -Moisture (Yu-wound Skin Appearance) Dry/Scaly Assessed Dry/Scaly -Color (Yu-wound Skin Appearance) No Abnormality Assessed No Abnormality -Temperature (Yu-wound Skin No Abnormality No Abnormality No Abnormality Appearance) (Pt Warm) (Pt Warm) (Pt Warm) -Tenderness on Palpation (Yu-wound No Skin Appearance) -Ulcer Cleansing Soap and Water Soap and Water Soap and Water -Foul Odor after Cleansing No No No -Anesthetic Used 5% Lidocaine 5% Lidocaine Gel Gel Lower Limb Edema Present NA WC - Nurse 2 - General Ulcer CM Notes Start: 09/18/23 09:34 Freq: Status: Active Protocol: Activity Type Activity Date Activity User E-sign Co-sign Detail Recorded Client Recorded Date Recorded By Document 09/18/23 09:51 BMF Desktop 09/18/23 09:55 BMF Edit Result 09/18/23 09:51 BMF (1) [id number] 09/18/23 13:36 BMF Edit Result 09/18/23 09:51 BMF (2) [id number] 09/22/23 15:10 BMF Edit Result 09/18/23 09:51 BMF (3) Laptop 09/22/23 15:35 JF Document 09/25/23 09:30 BMF Desktop 09/25/23 09:41 BMF (1) #4 Lateral Right Plantar Foot - Debridement - Subq, 1st 20sq cm Yes => No (2) #4 Lateral Right Plantar Foot - Epifix 18mm Disc 3 => 1 (3) #4 Lateral Right Plantar Foot - Epifix 18mm Disc 1 => 3 09/18/23 09/25/23 09:51 09:30 Wound Center Nurse 2 #4 Lateral Right Plantar Foot -Time 09:51 09:30 -Correct Patient Yes Yes -Correct Side, Site, Position Yes Yes -Correct Procedure Yes Yes -Procedure Performed Yes Yes -Type of Procedure Debridement Debridement -Clinical Debridement Subcutaneous Subcutaneous -Tissue Removed Subcutaneous Subcutaneous -Post Debridement (cm) - Length 0.5 2.6 -Post Debridement (cm) - Width 0.3 0.5 -Post Debridement (cm) - Depth 0.1 0.1 -Total Square (Post) (cm) 0.15 1.30 -Area of Debridement (cm) - Length 0.5 2.6 -Area of Debridement (cm) - Width 0.3 0.5 -Total Square (Area) (cm) 0.15 1.30 -Tunneling No No -Undermining/Tunneling No No -Circular Undermining No No -Wound/Ulcer Outcome Not Healed Not Healed -Ulcer Cleansing Rinsed/ Rinsed/ Irrigated with Irrigated with Saline Saline -Foul Odor after Cleansing No No -Bioengineered Tissue Yes No -Type of Bioengineered Tissue Epifix 18mm Epifix 18mm Disc Disc -Expiration Date 05/14/28 05/14/28 -Product Lot Number [id number] -Percent Used 100 100 -Lot number of Saline Used [id number] -Bleeding Controlled with Pressure Pressure -Treatment Response Procedure Procedure Tolerated Well Tolerated Well -Offloading Yes -Type of Offloading Surgical Shoe [place] Shoe - Right -Other Type of Offloading CUTOUTS -Debridement - Subq, 1st 20sq cm No No -Apply Skin Sub - 1st 25 sq cm - Feet 1 1 -Epifix 18mm Disc 3 3 Pain Scale: 0-10 Numeric Is Patient Pain Free? Yes Yes - Nurse 3 - General Ulcer D/C NN Start: 09/18/23 09:34 Freq: Status: Active Protocol: Activity Type Activity Date Activity User E-sign Co-sign Detail Recorded Client Recorded Date Recorded By Document 09/18/23 10:03 DL Desktop 09/18/23 10:04 DL Document 09/25/23 09:55 KW Desktop 09/25/23 09:58 KW 09/18/23 09/25/23 10:03 09:55 Wound Care Center Nurse 3 #4 Lateral Right Plantar Foot -Foul Odor after Cleansing No -Other Dressing Epifix -Primary Dressing Covered/Secured with Dry Gauze & Dry Gauze & Roll Gauze, Roll Gauze, Secured with Secured with Tape Tape -Other Covering ABD Treatment Response Procedure Tolerated Well Pain Scale: 0-10 Numeric Is Patient Pain Free? Yes Yes - Visit Discharge Discharge Condition Stable Stable Ambulatory Status Ambulatory Ambulatory Transportation Private Auto Private Auto Assessment/Plan Assessment/Plan (1) Ulcer of right foot with fat layer exposed: CODE(S): L97.512 - Non-pressure chronic ulcer of other part of right foot with fat layer exposed (2) Type 1 diabetes mellitus with diabetic polyneuropathy: CODE(S): E10.42 - Type 1 diabetes mellitus with diabetic polyneuropathy (3) Diabetes mellitus with foot ulcer: CODE(S): E11.621 - Type 2 diabetes mellitus with foot ulcer; L97.509 - Non-pressure chronic ulcer of other part of unspecified foot with unspecified severity (4) Delayed wound healing: CODE(S): T14.8XXD - Other injury of unspecified body region, subsequent encounter PLAN: Plan Patient seen and evaluated Ulceration subfourth metatarsal head of the right foot was debrided as noted in the clinical panel above. Ulceration measures 1.0 cm x 1.0 cm x 0.1 cm. EpiFix graft #9 applied to the wound bed and dressed with Adaptic touch and anchored with Steri-Strips. Dry sterile dressing applied to the right foot. He is instructed to change outer dressings as needed. He is instructed to keep the dressings clean, dry, and intact and to not get the site wet. He was advised to utilize cast bag when showering to keep the dressings dry. Ulceration demonstrates decrease in size versus previous visit He was given work note for time off to allow him to remain off of the wound site to allow healing at previous visit and this is aiding in his improvement for healing. Recommended continued offloading in CAM boot to the right foot with plantar offloading padding. Surgical shoe also offloaded so that he may wear this when getting up to go to the bathroom at night. Otherwise will remain in CAM boot with plantar offloading padding. Discussed proper diabetic diet and tight glycemic control to continue to aid in healing of his ulceration. Discussed adequate protein intake to continue to aid in wound healing. Bhaskar supplementation also recommended to aid in wound healing. Discussed signs of infection today. He was instructed if he notices increasing redness about the ulcerative site that moves up onto the foot or up his leg, if he notices purulent drainage from the wound site, if he notices increasing foul odor from the wound, or if he develops fever greater than 101 degree, or nausea, or vomiting, or chills, that these are signs of a progressing infection and he should report to the ED to receive IV antibiotics. He voices understanding of this. The following work up and care recommendations were made: Dressing: EpiFix graft, Adaptic touch, Steri-Strips, dry sterile dressing. Do not get wet. May change outer dressing as needed Wash: Do not get wet Tissue growth optimization: EpiFix Offload: Plantar offloading padding and CAM boot right foot Vascular: DP and PT pulses Palpable with adequate capillary fill time. Do not feel vascular status is impacting wound healing. Edema: No signs of pedal edema Infection: No signs of infection Pain: No pain secondary to diabetic peripheral polyneuropathy Host factors: DM type I with peripheral polyneuropathy, patient's himself as iatrogenic cause to ulcer, pressure I answered all the patient's questions. To return to the wound healing center in 1 week or call sooner if the patient has any questions or concerns.
[2023-10-09 09:29] VITALS: BP 125/83; PULSE 106; RESP 16; TEMP 37.2; BMI 35.9
--- NOTE | 2023-10-09 10:25 | PCM.WC.PN ---
History of Present Illness Date of Service: 10/09/23 Chief Complaint: right plantar foot ulcer and right leg ulcer History of Wound: This 38-year-old diabetic male presents to the wound healing center for a subfourth metatarsal ulceration of the right foot. 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 He states he tried to care for the ulceration for roughly 2 to 3 weeks in which it was not healing and presented to office. In office he did undergo debridement of the site continued offloading in cam boot however did not obtain his dressing supplies and was performing daily changes of wet to dry gauze. He was referred to the wound care center for applications of advanced wound care product. He states no pain secondary to diabetic peripheral polyneuropathy. He denies N/V/F/chills. He denies further complaints. Subjective Subjective This is a 38-year-old male who presents to the wound care center for follow-up of a plantar fourth metatarsal ulceration of the right foot. He is continued offloading site in CAM boot and surgical shoe with plantar offloading padding. He has left grafting product in place to the wound bed and is changing outer dressing as needed. He has taken time off again from work and feels that the foot is improving as he is now staying off of it more. He denies constitutional symptoms. Denies further complaints. Objective Data Objective Data Vital Signs: Vital Signs Temp Pulse Resp BP O2 Del Method 98.9 F 106 H 16 125/83 H Room Air 10/09/23 09:29 10/09/23 09:29 10/09/23 09:29 10/09/23 09:29 10/09/23 09:29 Oxygen Delivery Method Room Air Weight: 120.202 kg Body Mass Index (BMI) 35.9 Physical Exam Const alert, oriented x3 and no apparent distress General Appearance: cooperative HEENT normocephalic Eyes General Eye: normal appearance of both eyes Neck General: normal visual inspection Lymph Lymphatic: no lymphadenopathy noted and no lymphedema noted Resp normal respiratory effort Cardio regular rate and regular rhythm Extremity normal capillary refill, no joint enlargement, no calf tenderness and no pedal edema Extremity Narrative: DP and PT pulses palpable right foot. Capillary fill time less than 4 seconds to digits right foot. No pedal edema is noted. Dermatological: Skin is mildly xerotic to the plantar aspect. There is a ulceration subfourth metatarsal head with surrounding hyperkeratotic tissue and healthy appearing granular layer. There is scant serosanguineous drainage. No erythema, no purulent drainage, no malodor, no palpable fluctuance/bogginess noted, no visible abscess formation, no lymphangitic streaking. Musculoskeletal: Muscle strength 5 of 5 age-appropriate. Partial fifth ray amputation is noted to the right foot. Decreased range of motion of the ankle joint in dorsiflexion with the knee extended without pain or crepitus. Decreased range of motion of the first metatarsophalangeal joint without pain or crepitus. Skin no rashes or lesions noted, skin turgor normal and no jaundice Neuro moves all extremities Debridement Note Debridement Note Wound debrided: Subfourth metatarsal head right foot Laterality: Right Wound Grade/Stage: Reynoso stage I Type of Debridement: Excisional debridement Anesthesia Used: 5% Lidocaine Gel Depth: Down to and including healthy tissue and in the subcutaneous layer Percentage of wound debrided: 100 Instrument Used: 3mm curette and #15 blade Tissue Removed: Fibrous, devitalized subcutaneous, biofilm, slough Severity: Fat Layer Exposed Amount of bleeding with debridement: Mild Bleeding Controlled with: Compression and gauze Patient tolerated procedure: Patient tolerated procedure well Post-Debridement Measurements and Additional Note: Post-Debridement Measurements/Treatment WC - Nurse 1 - General Ulcer Assessment Start: 09/18/23 09:34 Freq: Status: Active Protocol: [email or web address] Activity Type Activity Date Activity User E-sign Co-sign Detail Recorded Client Recorded Date Recorded By Document 09/18/23 09:35 DL Desktop 09/18/23 09:43 DL Edit Result 09/18/23 09:35 DL (1) Desktop 09/18/23 09:45 DL Document 09/25/23 09:17 MT Desktop 09/25/23 09:23 MT Document 10/02/23 09:54 DL Desktop 10/02/23 10:03 DL Document 10/09/23 09:29 CP Desktop 10/09/23 09:37 CP (1) Blood Pressure (90/60-120/80) 117/93 H => 136/84 H 09/18/23 09/25/23 10/02/23 09:35 09:17 09:54 WC - Today's Visit Information Type of service Follow-up Visit Follow-up Visit Follow-up Visit (Physician/BLOOD BANK CREDIT CLERK (Physician/BLOOD BANK CREDIT CLERK (Physician/BLOOD BANK CREDIT CLERK ) ) ) Arrival Mode Ambulatory Ambulatory Ambulatory Transfer Assistance None None Patient Identification Verified (Name & Yes Yes Yes ) Patient Requires Transmission-Based No No Precautions Finger Stick Blood Sugar(mg/dl) (if 155 124 96 indicated): Blood Sugar Stated by Stated by Stated by Patient Patient Patient Height and Weight Body Mass Index (BMI) 35.9 35.9 35.9 BMI Classification Obese Obese Obese Vital Signs Temperature (97.8 F-99.1 F) 97.9 F 98 F 97.5 F L Temperature Source Temporal Temporal Temporal Pulse Rate (60-100) 103 H 87 99 Pulse Location Monitor Monitor Monitor Respiratory Rate (12-18) 20 H 18 20 H Respiratory rate source Observation Observation Observation Oxygen Delivery Method Room Air Blood Pressure (90/60-120/80) 136/84 H 115/76 117/65 Blood Pressure Mean (mm Hg) 101 89 82 Source Monitor Monitor Monitor Position Sitting Blood Pressure Location Left Arm History Since Last Visit- (Skip if this is Patient's initial visit) Have you changed medications since your No No last visit? Any new allergies or adverse reactions No No Had a fall/change in ADL's that may No No increase risk of falls Signs or symptoms of abuse and/or No No neglect since last visit Have you been in the hospital since your No No last visit? Has dressing in place as prescribed Yes Yes Has compression in place as prescribed N/A N/A N/A Has offloadiing in place as prescribed Yes N/A Yes Experienced any changes in pain level or No management Left Footwear Regular Shoe Right Footwear Surgical Shoe Diabetic Shoe with pressure relief insole Pain Scale: 0-10 Numeric Is Patient Pain Free? Yes Yes Yes 10/09/23 09:29 WC - Today's Visit Information Type of service Follow-up Visit (Physician/BLOOD BANK CREDIT CLERK ) Arrival Mode Ambulatory Transfer Assistance Patient Identification Verified (Name & Yes ) Patient Requires Transmission-Based No Precautions Finger Stick Blood Sugar(mg/dl) (if 81 indicated): Blood Sugar Stated by Patient Height and Weight Body Mass Index (BMI) 35.9 BMI Classification Obese Vital Signs Temperature (97.8 F-99.1 F) 98.9 F Temperature Source Temporal Pulse Rate (60-100) 106 H Pulse Location Monitor Respiratory Rate (12-18) 16 Respiratory rate source Observation Oxygen Delivery Method Room Air Blood Pressure (90/60-120/80) 125/83 H Blood Pressure Mean (mm Hg) 97 Source Monitor Position Sitting Blood Pressure Location Right Arm History Since Last Visit- (Skip if this is Patient's initial visit) Have you changed medications since your No last visit? Any new allergies or adverse reactions No Had a fall/change in ADL's that may No increase risk of falls Signs or symptoms of abuse and/or No neglect since last visit Have you been in the hospital since your No last visit? Has dressing in place as prescribed Yes Has compression in place as prescribed N/A Has offloadiing in place as prescribed Yes Experienced any changes in pain level or No management Left Footwear Right Footwear Surgical Shoe with pressure relief insole Pain Scale: 0-10 Numeric Is Patient Pain Free? Yes WC - Nurse 1 - General Ulcer Measurement Start: 09/18/23 09:34 Freq: Status: Active Protocol: Activity Type Activity Date Activity User E-sign Co-sign Detail Recorded Client Recorded Date Recorded By Document 09/18/23 09:35 DL Desktop 09/18/23 09:43 DL Document 09/25/23 09:17 MT Desktop 09/25/23 09:23 MT Document 10/02/23 09:54 DL Desktop 10/02/23 10:03 DL Document 10/09/23 09:29 CP Desktop 10/09/23 09:37 CP 09/18/23 09/25/23 10/02/23 09:35 09:17 09:54 Wound Center Nurse 1 #4 Lateral Right Plantar Foot -Current Size (cm) - Length 0.5 0.5 0.2 -Current Size (cm) - Width 0.6 0.5 0.3 -Current Size (cm) - Depth 0.4 0.3 0.1 -Total Square Cm 0.30 0.25 0.06 -Date of Last Picture (Recall this field) -Photo Taken Yes -Epithelialization -Tunneling Yes -Tunneling Position (O'clock) 4 -Tunneling Distance (cm) 2.8 -Undermining/Tunneling Yes -Undermining/Tunneling Starts (O'clock 12 ) -Undermining/Tunneling Ends (O'clock) 12 -Maximum Distance #2 (cm) 0.2 -Circular Undermining Yes -Exudate Amt Small Medium None Present -Exudate Type Serosanguineous Serosanguineous -Wound Margin Distinct, Thickened & Thickened Outline Rolled Under Attached -Granulation Amt Small (1-33%) Small (1-33%) -Granulation Quality [place] Pale [place] -Slough/Fibrin -Necrosis Amt Small (1-33%) Large (67-100%) None Present (0 %) -Necrotic Tissue Type Adherent Slough Adherent Slough -Structure Exposed N/A -Texture (Yu-wound Skin Appearance) Scarring Assessed,Callus Callus -Moisture (Yu-wound Skin Appearance) Dry/Scaly Assessed Dry/Scaly -Color (Yu-wound Skin Appearance) No Abnormality Assessed No Abnormality -Temperature (Yu-wound Skin No Abnormality No Abnormality No Abnormality Appearance) (Pt Warm) (Pt Warm) (Pt Warm) -Tenderness on Palpation (Yu-wound No Skin Appearance) -Ulcer Cleansing Soap and Water Soap and Water Soap and Water -Foul Odor after Cleansing No No No -Anesthetic Used 5% Lidocaine 5% Lidocaine Gel Gel Lower Limb Edema Present NA 10/09/23 09:29 Wound Center Nurse 1 #4 Lateral Right Plantar Foot -Current Size (cm) - Length 0.4 -Current Size (cm) - Width 0.3 -Current Size (cm) - Depth 0.4 -Total Square Cm 0.12 -Date of Last Picture (Recall this 10/09/23 field) -Photo Taken Yes -Epithelialization None Present -Tunneling -Tunneling Position (O'clock) -Tunneling Distance (cm) -Undermining/Tunneling -Undermining/Tunneling Starts (O'clock ) -Undermining/Tunneling Ends (O'clock) -Maximum Distance #2 (cm) -Circular Undermining Yes -Exudate Amt None Present -Exudate Type -Wound Margin Thickened -Granulation Amt Small (1-33%) -Granulation Quality [place] -Slough/Fibrin Yes -Necrosis Amt Medium (34-66%) -Necrotic Tissue Type Adherent Slough -Structure Exposed None/Limited to Skin Breakdown -Texture (Yu-wound Skin Appearance) Callus -Moisture (Yu-wound Skin Appearance) Maceration -Color (Yu-wound Skin Appearance) No Abnormality -Temperature (Yu-wound Skin No Abnormality Appearance) (Pt Warm) -Tenderness on Palpation (Yu-wound Skin Appearance) -Ulcer Cleansing Soap and Water -Foul Odor after Cleansing No -Anesthetic Used 5% Lidocaine Gel Lower Limb Edema Present WC - Nurse 2 - General Ulcer CM Notes Start: 09/18/23 09:34 Freq: Status: Active Protocol: Activity Type Activity Date Activity User E-sign Co-sign Detail Recorded Client Recorded Date Recorded By Document 09/18/23 09:51 BMF Desktop 09/18/23 09:55 BMF Edit Result 09/18/23 09:51 BMF (1) [id number] 09/18/23 13:36 BMF Edit Result 09/18/23 09:51 BMF (2) [id number] 09/22/23 15:10 BMF Edit Result 09/18/23 09:51 BMF (3) Laptop 09/22/23 15:35 JF Document 09/25/23 09:30 BMF Desktop 09/25/23 09:41 BMF Document 10/02/23 10:33 BMF Desktop 10/02/23 10:39 BMF Document 10/09/23 10:09 BMF Desktop 10/09/23 10:18 BMF (1) #4 Lateral Right Plantar Foot - Debridement - Subq, 1st 20sq cm Yes => No (2) #4 Lateral Right Plantar Foot - Epifix 18mm Disc 3 => 1 (3) #4 Lateral Right Plantar Foot - Epifix 18mm Disc 1 => 3 09/18/23 09/25/23 10/02/23 09:51 09:30 10:33 Wound Center Nurse 2 #4 Lateral Right Plantar Foot -Time 09:51 09:30 10:34 -Correct Patient Yes Yes Yes -Correct Side, Site, Position Yes Yes Yes -Correct Procedure Yes Yes Yes -Procedure Performed Yes Yes Yes -Type of Procedure Debridement Debridement Debridement -Clinical Debridement Subcutaneous Subcutaneous Subcutaneous -Tissue Removed Subcutaneous Subcutaneous Subcutaneous -Post Debridement (cm) - Length 0.5 2.6 1 -Post Debridement (cm) - Width 0.3 0.5 1 -Post Debridement (cm) - Depth 0.1 0.1 0.1 -Total Square (Post) (cm) 0.15 1.30 1 -Area of Debridement (cm) - Length 0.5 2.6 1 -Area of Debridement (cm) - Width 0.3 0.5 1 -Total Square (Area) (cm) 0.15 1.30 1 -Tunneling No No No -Undermining/Tunneling No No No -Circular Undermining No No No -Wound/Ulcer Outcome Not Healed Not Healed Not Healed -Ulcer Cleansing Rinsed/ Rinsed/ Rinsed/ Irrigated with Irrigated with Irrigated with Saline Saline Saline -Foul Odor after Cleansing No No No -Bioengineered Tissue Yes No -Type of Bioengineered Tissue Epifix 18mm Epifix 18mm Epifix 18mm Disc Disc Disc -Expiration Date 05/14/28 05/14/28 05/14/28 -Product Lot Number [id number] -Percent Used 100 100 100 -Lot number of Saline Used [id number] -Bleeding Controlled with Pressure Pressure Silver Nitrate -Treatment Response Procedure Procedure Procedure Tolerated Well Tolerated Well Tolerated Well -Offloading Yes -Type of Offloading Surgical Shoe Darco Shoe - Darco Shoe - Right Right -Other Type of Offloading CUTOUTS -Debridement - Subq, 1st 20sq cm No No No -Apply Skin Sub - 1st 25 sq cm - Feet 1 1 1 -Epifix 18mm Disc 3 3 3 Pain Scale: 0-10 Numeric Is Patient Pain Free? Yes Yes Yes 10/09/23 10:09 Wound Center Nurse 2 #4 Lateral Right Plantar Foot -Time 10:09 -Correct Patient Yes -Correct Side, Site, Position Yes -Correct Procedure Yes -Procedure Performed Yes -Type of Procedure Debridement -Clinical Debridement Subcutaneous -Tissue Removed Subcutaneous -Post Debridement (cm) - Length 0.4 -Post Debridement (cm) - Width 0.5 -Post Debridement (cm) - Depth 0.1 -Total Square (Post) (cm) 0.20 -Area of Debridement (cm) - Length 0.4 -Area of Debridement (cm) - Width 0.5 -Total Square (Area) (cm) 0.20 -Tunneling No -Undermining/Tunneling No -Circular Undermining No -Wound/Ulcer Outcome Not Healed -Ulcer Cleansing Rinsed/ Irrigated with Saline -Foul Odor after Cleansing No -Bioengineered Tissue Yes -Type of Bioengineered Tissue Epifix 18mm Disc -Expiration Date 05/14/28 -Product Lot Number [id number] -Percent Used 100 -Lot number of Saline Used [id number] -Bleeding Controlled with Pressure -Treatment Response Procedure Tolerated Well -Offloading Yes -Type of Offloading Darco Shoe - Right -Other Type of Offloading -Debridement - Subq, 1st 20sq cm No -Apply Skin Sub - 1st 25 sq cm - Feet 1 -Epifix 18mm Disc 3 Pain Scale: 0-10 Numeric Is Patient Pain Free? Yes - Nurse 3 - General Ulcer D/C NN Start: 09/18/23 09:34 Freq: Status: Active Protocol: Activity Type Activity Date Activity User E-sign Co-sign Detail Recorded Client Recorded Date Recorded By Document 09/18/23 10:03 DL Desktop 09/18/23 10:04 DL Document 09/25/23 09:55 KW Desktop 09/25/23 09:58 KW Document 10/02/23 10:48 DL Desktop 10/02/23 10:50 DL Document 10/09/23 10:21 KW Desktop 10/09/23 10:24 KW 09/18/23 09/25/23 10/02/23 10:03 09:55 10:48 Wound Care Center Nurse 3 #4 Lateral Right Plantar Foot -Foul Odor after Cleansing No No -Other Dressing Epifix epifix -Primary Dressing Covered/Secured with Dry Gauze & Dry Gauze & Dry Gauze & Roll Gauze, Roll Gauze, Roll Gauze Secured with Secured with Tape Tape -Other Covering ABD Treatment Response Procedure Procedure Tolerated Well Tolerated Well Pain Scale: 0-10 Numeric Is Patient Pain Free? Yes Yes Yes - Visit Discharge Discharge Condition Stable Stable Stable Ambulatory Status Ambulatory Ambulatory Ambulatory Transportation Private Auto Private Auto Private Auto Medication Reconcilliation completed & provided to patient/care provider Clinical Summary of Care Provided 10/09/23 10:21 Wound Care Center Nurse 3 #4 Lateral Right Plantar Foot -Foul Odor after Cleansing -Other Dressing -Primary Dressing Covered/Secured with Dry Gauze & Roll Gauze, Secured with Tape -Other Covering Treatment Response Pain Scale: 0-10 Numeric Is Patient Pain Free? Yes WC - Visit Discharge Discharge Condition Stable Ambulatory Status Ambulatory Transportation Private Auto Medication Reconcilliation completed & No provided to patient/care provider Clinical Summary of Care Provided Yes Assessment/Plan Assessment/Plan (1) Ulcer of right foot with fat layer exposed: CODE(S): L97.512 - Non-pressure chronic ulcer of other part of right foot with fat layer exposed (2) Type 1 diabetes mellitus with diabetic polyneuropathy: CODE(S): E10.42 - Type 1 diabetes mellitus with diabetic polyneuropathy (3) Diabetes mellitus with foot ulcer: CODE(S): E11.621 - Type 2 diabetes mellitus with foot ulcer; L97.509 - Non-pressure chronic ulcer of other part of unspecified foot with unspecified severity (4) Delayed wound healing: CODE(S): T14.8XXD - Other injury of unspecified body region, subsequent encounter PLAN: Plan Patient seen and evaluated Ulceration subfourth metatarsal head of the right foot was debrided as noted in the clinical panel above. Ulceration measures 0.4 cm x 0.5 cm x 0.1 cm. EpiFix graft #10 applied to the wound bed and dressed with Adaptic touch and anchored with Steri-Strips. Dry sterile dressing applied to the right foot. He is instructed to change outer dressings as needed. He is instructed to keep the dressings clean, dry, and intact and to not get the site wet. He was advised to utilize cast bag when showering to keep the dressings dry. Ulceration demonstrates decrease in size versus previous visit He was given work note for time off to allow him to remain off of the wound site to allow healing at previous visit and this is aiding in his improvement for healing with continued reduction in ulcerative size versus previous visit. Recommended continued offloading in CAM boot to the right foot with plantar offloading padding. Surgical shoe also offloaded so that he may wear this when getting up to go to the bathroom at night. Otherwise will remain in CAM boot with plantar offloading padding. Discussed proper diabetic diet and tight glycemic control to continue to aid in healing of his ulceration. Discussed adequate protein intake to continue to aid in wound healing. Bhaskar supplementation also recommended to aid in wound healing. Discussed signs of infection today. He was instructed if he notices increasing redness about the ulcerative site that moves up onto the foot or up his leg, if he notices purulent drainage from the wound site, if he notices increasing foul odor from the wound, or if he develops fever greater than 101 degree, or nausea, or vomiting, or chills, that these are signs of a progressing infection and he should report to the ED to receive IV antibiotics. He voices understanding of this. The following work up and care recommendations were made: Dressing: EpiFix graft, Adaptic touch, Steri-Strips, dry sterile dressing. Do not get wet. May change outer dressing as needed Wash: Do not get wet Tissue growth optimization: EpiFix Offload: Plantar offloading padding and CAM boot right foot Vascular: DP and PT pulses Palpable with adequate capillary fill time. Do not feel vascular status is impacting wound healing. Edema: No signs of pedal edema Infection: No signs of infection Pain: No pain secondary to diabetic peripheral polyneuropathy Host factors: DM type I with peripheral polyneuropathy, patient's himself as iatrogenic cause to ulcer, pressure I answered all the patient's questions. To return to the wound healing center in 2 weeks or call sooner if the patient has any questions or concerns.
--- NOTE | 2023-10-17 11:25 | WC ---
3.28.24 RT LAT PLANTAR
== END 2023-10-12 23:59 | disposition home or self-care (01) ==
LOC: WC 09:15
PROVIDERS: PCP Internal Medicine; Referring Provider Student in an Organized Health Care Education/Training Program; Visit Provider Student in an Organized Health Care Education/Training Program
DX: E10.621 Type 1 diabetes mellitus with foot ulcer (principal); L97.512 Non-pressure chronic ulcer of other part of right foot with fat layer exposed; E10.42 Type 1 diabetes mellitus with diabetic polyneuropathy
CPT/HCPCS: 11042; 15275; Q4186

== ENCOUNTER 2023-11-06 09:30 | Outpatient (RCR) | payer MEDICAID, SELFPAY ==
[2023-10-13 00:44] VITALS: BP 125/83; PULSE 106; RESP 16; TEMP 37.2; BMI 35.9
[2023-10-23 09:25] VITALS: BP 139/80; PULSE 111; RESP 18; TEMP 36.9; BMI 35.9
--- NOTE | 2023-10-23 09:56 | PCM.WC.PN ---
History of Present Illness Date of Service: 10/23/23 Chief Complaint: right plantar foot ulcer and right leg ulcer History of Wound: This 38-year-old diabetic male presents to the wound healing center for a subfourth metatarsal ulceration of the right foot. 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 He states he tried to care for the ulceration for roughly 2 to 3 weeks in which it was not healing and presented to office. In office he did undergo debridement of the site continued offloading in cam boot however did not obtain his dressing supplies and was performing daily changes of wet to dry gauze. He was referred to the wound care center for applications of advanced wound care product. He states no pain secondary to diabetic peripheral polyneuropathy. He denies N/V/F/chills. He denies further complaints. Subjective Subjective This is a 38-year-old male who presents to the wound care center for follow-up of a plantar fourth metatarsal ulceration of the right foot. He is continued offloading site in CAM boot and surgical shoe with plantar offloading padding. He has left grafting product in place to the wound bed and is changing outer dressing as needed. He is currently looking for new job that will allow him to not stand on his foot all day. States he has noticed improvement in the wound and believes it is near healed. He denies constitutional symptoms. Denies further complaints. Objective Data Objective Data Vital Signs: Vital Signs Temp Pulse Resp BP O2 Del Method 98.4 F 111 H 18 139/80 H Room Air 10/23/23 09:25 10/23/23 09:25 10/23/23 09:25 10/23/23 09:25 10/23/23 09:25 Oxygen Delivery Method Room Air Weight: 120.202 kg Body Mass Index (BMI) 35.9 Physical Exam Const alert, oriented x3 and no apparent distress General Appearance: cooperative HEENT normocephalic Eyes General Eye: normal appearance of both eyes Neck General: normal visual inspection Resp normal respiratory effort Cardio regular rate and regular rhythm Extremity normal capillary refill, no joint enlargement, no calf tenderness and no pedal edema Extremity Narrative: DP and PT pulses palpable right foot. Capillary fill time less than 4 seconds to digits right foot. No pedal edema is noted. Dermatological: Skin is mildly xerotic to the plantar aspect. There is a ulceration subfourth metatarsal head with surrounding hyperkeratotic tissue and healthy appearing granular layer. There is scant serosanguineous drainage. No erythema, no purulent drainage, no malodor, no palpable fluctuance/bogginess noted, no visible abscess formation, no lymphangitic streaking. Musculoskeletal: Muscle strength 5 of 5 age-appropriate. Partial fifth ray amputation is noted to the right foot. Decreased range of motion of the ankle joint in dorsiflexion with the knee extended without pain or crepitus. Decreased range of motion of the first metatarsophalangeal joint without pain or crepitus. Skin no rashes or lesions noted, skin turgor normal and no jaundice Neuro moves all extremities Debridement Note Debridement Note Wound debrided: Subfourth metatarsal Laterality: Right Wound Grade/Stage: Reynoso stage I Type of Debridement: Excisional debridement Anesthesia Used: 5% Lidocaine Gel Depth: Down to and including healthy tissue and in the subcutaneous layer Percentage of wound debrided: 100 Instrument Used: #15 blade Tissue Removed: Fibrous, devitalized subcutaneous, biofilm, slough Severity: Fat Layer Exposed Amount of bleeding with debridement: Mild Bleeding Controlled with: Compression and gauze Patient tolerated procedure: Patient tolerated procedure well Post-Debridement Measurements and Additional Note: Post-Debridement Measurements/Treatment - Nurse 1 - General Ulcer Assessment Start: 10/23/23 09:25 Freq: Status: Active Protocol: .LOWEXEsau Activity Type Activity Date Activity User E-sign Co-sign Detail Recorded Client Recorded Date Recorded By Document 10/23/23 09:25 KW Desktop 10/23/23 09:36 KW 10/23/23 09:25 - Today's Visit Information Type of service Follow-up Visit (Physician/STATIONS SUPERINTENDENT ) Arrival Mode Ambulatory Patient Identification Verified (Name & Yes ) Height and Weight Body Mass Index (BMI) 35.9 BMI Classification Obese Vital Signs Temperature (97.8 F-99.1 F) 98.4 F Temperature Source Temporal Pulse Rate (60-100) 111 H Pulse Location Monitor Respiratory Rate (12-18) 18 Respiratory rate source Observation Oxygen Delivery Method Room Air Blood Pressure (90/60-120/80) 139/80 H Blood Pressure Mean (mm Hg) 99 Source Monitor Position Semi-Fowlers Blood Pressure Location Left Arm History Since Last Visit- (Skip if this is Patient's initial visit) Have you changed medications since your No last visit? Any new allergies or adverse reactions No Had a fall/change in ADL's that may No increase risk of falls Signs or symptoms of abuse and/or No neglect since last visit Have you been in the hospital since your No last visit? Has dressing in place as prescribed Yes Has compression in place as prescribed N/A Has offloadiing in place as prescribed Yes Experienced any changes in pain level or No management Left Footwear Regular Shoe Right Footwear Surgical Shoe with pressure relief insole Pain Scale: 0-10 Numeric Is Patient Pain Free? Yes - Nurse 1 - General Ulcer Measurement Start: 10/23/23 09:25 Freq: Status: Active Protocol: Activity Type Activity Date Activity User E-sign Co-sign Detail Recorded Client Recorded Date Recorded By Document 10/23/23 09:25 KW Desktop 10/23/23 09:36 KW 10/23/23 09:25 Wound Center Nurse 1 #4 Lateral Right Plantar Foot -Current Size (cm) - Length 0.1 -Current Size (cm) - Width 0.1 -Current Size (cm) - Depth 0.1 -Total Square Cm 0.01 -Date of Last Picture (Recall this 10/23/23 field) -Photo Taken Yes -Necrosis Amt Large (67-100%) -Necrotic Tissue Type Adherent Slough -Texture (Yu-wound Skin Appearance) Assessed,Callus -Moisture (Yu-wound Skin Appearance) Assessed,Dry/ Scaly -Color (Yu-wound Skin Appearance) Assessed -Temperature (Yu-wound Skin No Abnormality Appearance) (Pt Warm) -Tenderness on Palpation (Yu-wound No Skin Appearance) -Ulcer Cleansing Soap and Water -Anesthetic Used 5% Lidocaine Gel WC - Nurse 2 - General Ulcer CM Notes Start: 10/23/23 09:25 Freq: Status: Active Protocol: Activity Type Activity Date Activity User E-sign Co-sign Detail Recorded Client Recorded Date Recorded By Document 10/23/23 09:44 [facility] Desktop 10/23/23 09:51 [facility] 10/23/23 09:44 Wound Center Nurse 2 -Time 09:44 -Correct Patient Yes -Correct Side, Site, Position Yes -Correct Procedure Yes -Procedure Performed Yes -Type of Procedure Debridement -Clinical Debridement Subcutaneous -Tissue Removed Subcutaneous -Post Debridement (cm) - Length 0.1 -Post Debridement (cm) - Width 0.1 -Post Debridement (cm) - Depth 0.1 -Total Square (Post) (cm) 0.01 -Area of Debridement (cm) - Length 0.1 -Area of Debridement (cm) - Width 0.1 -Total Square (Area) (cm) 0.01 -Tunneling No -Undermining/Tunneling No -Circular Undermining No -Wound/Ulcer Outcome Not Healed -Ulcer Cleansing Rinsed/ Irrigated with Saline -Foul Odor after Cleansing No -Bioengineered Tissue No -Bleeding Controlled with Pressure -Treatment Response Procedure Tolerated Well -Offloading Yes -Type of Offloading Surgical Shoe -Debridement - Subq, 1st 20sq cm Yes Pain Scale: 0-10 Numeric Is Patient Pain Free? Yes Assessment/Plan Assessment/Plan (1) Ulcer of right foot with fat layer exposed: CODE(S): L97.512 - Non-pressure chronic ulcer of other part of right foot with fat layer exposed (2) Type 1 diabetes mellitus with diabetic polyneuropathy: CODE(S): E10.42 - Type 1 diabetes mellitus with diabetic polyneuropathy (3) Diabetes mellitus with foot ulcer: CODE(S): E11.621 - Type 2 diabetes mellitus with foot ulcer; L97.509 - Non-pressure chronic ulcer of other part of unspecified foot with unspecified severity (4) Delayed wound healing: CODE(S): T14.8XXD - Other injury of unspecified body region, subsequent encounter PLAN: Plan Patient seen and evaluated Ulceration subfourth metatarsal head of the right foot was debrided as noted in the clinical panel above. Ulceration measures 0.1 cm x 0.1 cm x 0.1 cm. He has completed all 10 applications of EpiFix graft. Wound is near closure. Dry sterile dressing applied to the right foot to pad and protect area. He is instructed to change dressing daily. Ulceration demonstrates decrease in size versus previous visit. Ulceration is nearing closure He was given work note for time off to allow him to remain off of the wound site to allow healing at previous visit and this is aiding in his improvement for healing with continued reduction in ulcerative size versus previous visit. Recommended continued offloading in CAM boot to the right foot with plantar offloading padding. Surgical shoe also offloaded so that he may wear this when getting up to go to the bathroom at night. Otherwise will remain in CAM boot with plantar offloading padding. Discussed once ulcer has healed he is to return to diabetic shoes with diabetic inserts. He is instructed to not pick at any calluses in future as this led to his ulceration. Discussed proper diabetic diet and tight glycemic control to continue to aid in healing of his ulceration. Discussed adequate protein intake to continue to aid in wound healing. Bhaskar supplementation also recommended to aid in wound healing. Discussed signs of infection today. He was instructed if he notices increasing redness about the ulcerative site that moves up onto the foot or up his leg, if he notices purulent drainage from the wound site, if he notices increasing foul odor from the wound, or if he develops fever greater than 101 degree, or nausea, or vomiting, or chills, that these are signs of a progressing infection and he should report to the ED to receive IV antibiotics. He voices understanding of this. The following work up and care recommendations were made: Dressing: Dry sterile dressing to pad and protect area. Change dressing daily Wash: Soap and water Tissue growth optimization: None Offload: Plantar offloading padding and CAM boot right foot Vascular: DP and PT pulses Palpable with adequate capillary fill time. Do not feel vascular status is impacting wound healing. Edema: No signs of pedal edema Infection: No signs of infection Pain: No pain secondary to diabetic peripheral polyneuropathy Host factors: DM type I with peripheral polyneuropathy, patient's himself as iatrogenic cause to ulcer, pressure I answered all the patient's questions. To return to the wound healing center in 1 week or call sooner if the patient has any questions or concerns.
[2023-10-30 09:22] VITALS: BP 137/63; PULSE 111; RESP 20; TEMP 36.2; BMI 35.9
--- NOTE | 2023-10-30 11:37 | PCM.WC.PN ---
History of Present Illness Date of Service: 10/30/23 Chief Complaint: right plantar foot ulcer and right leg ulcer History of Wound: This 38-year-old diabetic male presents to the wound healing center for a subfourth metatarsal ulceration of the right foot. 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 He states he tried to care for the ulceration for roughly 2 to 3 weeks in which it was not healing and presented to office. In office he did undergo debridement of the site continued offloading in cam boot however did not obtain his dressing supplies and was performing daily changes of wet to dry gauze. He was referred to the wound care center for applications of advanced wound care product. He states no pain secondary to diabetic peripheral polyneuropathy. He denies N/V/F/chills. He denies further complaints. Subjective Subjective This is a 38-year-old male who presents to the wound care center for follow-up of a plantar fourth metatarsal ulceration of the right foot. He is continued offloading site in CAM boot and surgical shoe with plantar offloading padding. He was instructed last week to pad and protect the area with dry sterile dressing as the ulceration was nearly healed. However, he states that he was applying hydrogel to the site daily causing maceration and worsening of his wound. He denies constitutional symptoms. Denies further complaints. Objective Data Objective Data Vital Signs: Vital Signs Temp Pulse Resp BP O2 Del Method 97.2 F L 111 H 20 H 137/63 H Room Air 10/30/23 09:22 10/30/23 09:22 10/30/23 09:22 10/30/23 09:22 10/23/23 09:25 Oxygen Delivery Method Room Air Weight: 120.202 kg Body Mass Index (BMI) 35.9 Physical Exam Const alert, oriented x3 and no apparent distress General Appearance: cooperative HEENT normocephalic Eyes General Eye: normal appearance of both eyes Neck General: normal visual inspection Lymph Lymphatic: no lymphadenopathy noted and no lymphedema noted Resp normal respiratory effort Cardio regular rate and regular rhythm Extremity normal capillary refill, no joint enlargement, no calf tenderness and no pedal edema Extremity Narrative: DP and PT pulses palpable right foot. Capillary fill time less than 4 seconds to digits right foot. No pedal edema is noted. Dermatological: Skin is mildly xerotic to the plantar aspect. There is a ulceration subfourth metatarsal head with surrounding hyperkeratotic tissue and healthy appearing granular layer. There is scant serosanguineous drainage. No erythema, no purulent drainage, no malodor, no palpable fluctuance/bogginess noted, no visible abscess formation, no lymphangitic streaking. Musculoskeletal: Muscle strength 5 of 5 age-appropriate. Partial fifth ray amputation is noted to the right foot. Decreased range of motion of the ankle joint in dorsiflexion with the knee extended without pain or crepitus. Decreased range of motion of the first metatarsophalangeal joint without pain or crepitus. Skin no rashes or lesions noted, skin turgor normal and no jaundice Neuro moves all extremities Debridement Note Debridement Note Wound debrided: Subfourth metatarsal head right foot Laterality: Right Wound Grade/Stage: Reynoso stage I Type of Debridement: Excisional debridement Anesthesia Used: 5% Lidocaine Gel Depth: Down to and including healthy tissue and in the subcutaneous layer Percentage of wound debrided: 100 Instrument Used: #15 blade Tissue Removed: Fibrous, devitalized subcutaneous, biofilm, slough Severity: Fat Layer Exposed Amount of bleeding with debridement: Mild Bleeding Controlled with: Compression and gauze Patient tolerated procedure: Patient tolerated procedure well Post-Debridement Measurements and Additional Note: Post-Debridement Measurements/Treatment - Nurse 1 - General Ulcer Assessment Start: 10/23/23 09:25 Freq: Status: Active Protocol: .LOWEXT Activity Type Activity Date Activity User E-sign Co-sign Detail Recorded Client Recorded Date Recorded By Document 10/23/23 09:25 KW Desktop 10/23/23 09:36 KW Document 10/30/23 09:22 DL Desktop 10/30/23 09:30 DL 10/23/23 10/30/23 09:25 09:22 - Today's Visit Information Type of service Follow-up Visit Follow-up Visit (Physician/CHEMIC MANGLER (Physician/CHEMIC MANGLER ) ) Arrival Mode Ambulatory Ambulatory Transfer Assistance None Patient Identification Verified (Name & Yes Yes ) Patient Requires Transmission-Based No Precautions Height and Weight Body Mass Index (BMI) 35.9 35.9 BMI Classification Obese Obese Vital Signs Temperature (97.8 F-99.1 F) 98.4 F 97.2 F L Temperature Source Temporal Temporal Pulse Rate (60-100) 111 H 111 H Pulse Location Monitor Monitor Respiratory Rate (12-18) 18 20 H Respiratory rate source Observation Observation Oxygen Delivery Method Room Air Blood Pressure (90/60-120/80) 139/80 H 137/63 H Blood Pressure Mean (mm Hg) 99 87 Source Monitor Monitor Position Semi-Fowlers Blood Pressure Location Left Arm History Since Last Visit- (Skip if this is Patient's initial visit) Have you changed medications since your No No last visit? Any new allergies or adverse reactions No No Had a fall/change in ADL's that may No No increase risk of falls Signs or symptoms of abuse and/or No No neglect since last visit Have you been in the hospital since your No No last visit? Has dressing in place as prescribed Yes Yes Has compression in place as prescribed N/A Yes Has offloadiing in place as prescribed Yes Yes Experienced any changes in pain level or No No management Left Footwear Regular Shoe Right Footwear Surgical Shoe with pressure relief insole Pain Scale: 0-10 Numeric Is Patient Pain Free? Yes Yes WC - Nurse 1 - General Ulcer Measurement Start: 10/23/23 09:25 Freq: Status: Active Protocol: Activity Type Activity Date Activity User E-sign Co-sign Detail Recorded Client Recorded Date Recorded By Document 10/23/23 09:25 KW Desktop 10/23/23 09:36 KW Document 10/30/23 09:22 DL Desktop 10/30/23 09:30 DL 10/23/23 10/30/23 09:25 09:22 Wound Center Nurse 1 #4 Lateral Right Plantar Foot -Current Size (cm) - Length 0.1 1 -Current Size (cm) - Width 0.1 0.2 -Current Size (cm) - Depth 0.1 0.3 -Total Square Cm 0.01 0.2 -Date of Last Picture (Recall this 10/23/23 field) -Photo Taken Yes -Undermining/Tunneling Starts (O'clock 7 ) -Undermining/Tunneling Ends (O'clock) 10 -Maximum Distance (cm) 0.4 -Exudate Amt Medium -Exudate Type Serosanguineous -Wound Margin Distinct, Outline Attached -Granulation Amt Small (1-33%) -Granulation Quality [place] -Necrosis Amt Large (67-100%) Small (1-33%) -Necrotic Tissue Type Adherent Slough -Structure Exposed N/A -Texture (Yu-wound Skin Appearance) Assessed,Callus Callus,Scarring -Moisture (Yu-wound Skin Appearance) Assessed,Dry/ Maceration Scaly -Color (Yu-wound Skin Appearance) Assessed No Abnormality -Temperature (Yu-wound Skin No Abnormality Appearance) (Pt Warm) -Tenderness on Palpation (Yu-wound No No Skin Appearance) -Ulcer Cleansing Soap and Water Soap and Water -Foul Odor after Cleansing No -Anesthetic Used 5% Lidocaine 5% Lidocaine Gel Gel WC - Nurse 2 - General Ulcer CM Notes Start: 10/23/23 09:25 Freq: Status: Active Protocol: Activity Type Activity Date Activity User E-sign Co-sign Detail Recorded Client Recorded Date Recorded By Document 10/23/23 09:44 [facility] Desktop 10/23/23 09:51 [employer] Document 10/30/23 09:42 [facility] Desktop 10/30/23 09:54 [facility] 10/23/23 10/30/23 09:44 09:42 Wound Center Nurse 2 #4 Lateral Right Plantar Foot -Time 09:44 09:47 -Correct Patient Yes Yes -Correct Side, Site, Position Yes Yes -Correct Procedure Yes Yes -Procedure Performed Yes Yes -Type of Procedure Debridement Debridement -Clinical Debridement Subcutaneous Subcutaneous -Tissue Removed Subcutaneous Subcutaneous -Post Debridement (cm) - Length 0.1 1.5 -Post Debridement (cm) - Width 0.1 1 -Post Debridement (cm) - Depth 0.1 0.1 -Total Square (Post) (cm) 0.01 1.5 -Area of Debridement (cm) - Length 0.1 1.5 -Area of Debridement (cm) - Width 0.1 1 -Total Square (Area) (cm) 0.01 1.5 -Tunneling No No -Undermining/Tunneling No No -Circular Undermining No No -Wound/Ulcer Outcome Not Healed Not Healed -Ulcer Cleansing Rinsed/ Rinsed/ Irrigated with Irrigated with Saline Saline -Foul Odor after Cleansing No No -Bioengineered Tissue No No -Bleeding Controlled with Pressure Pressure -Treatment Response Procedure Procedure Tolerated Well Tolerated Well -Offloading Yes Yes -Type of Offloading Surgical Shoe Darco Shoe - Right -Debridement - Subq, 1st 20sq cm Yes Yes Pain Scale: 0-10 Numeric Is Patient Pain Free? Yes Yes - Nurse 3 - General Ulcer D/C NN Start: 10/23/23 09:25 Freq: Status: Active Protocol: Activity Type Activity Date Activity User E-sign Co-sign Detail Recorded Client Recorded Date Recorded By Document 10/30/23 10:00 ML Desktop 10/30/23 10:06 ML 10/30/23 10:00 Wound Care Center Nurse 3 #4 Lateral Right Plantar Foot -Ulcer Cleansing Rinsed/ Irrigated with Saline -Foul Odor after Cleansing No -Primary Dressing Applied Promogran Jessica Matter -Promogran Jessica Matter 2 Pain Scale: 0-10 Numeric Is Patient Pain Free? Yes WC - Visit Discharge Discharge Condition Stable Ambulatory Status Ambulatory Notes: danielle wrap applied Assessment/Plan Assessment/Plan (1) Ulcer of right foot with fat layer exposed: CODE(S): L97.512 - Non-pressure chronic ulcer of other part of right foot with fat layer exposed (2) Type 1 diabetes mellitus with diabetic polyneuropathy: CODE(S): E10.42 - Type 1 diabetes mellitus with diabetic polyneuropathy (3) Diabetes mellitus with foot ulcer: CODE(S): E11.621 - Type 2 diabetes mellitus with foot ulcer; L97.509 - Non-pressure chronic ulcer of other part of unspecified foot with unspecified severity (4) Delayed wound healing: CODE(S): T14.8XXD - Other injury of unspecified body region, subsequent encounter PLAN: Plan Patient seen and evaluated He was instructed to utilize dry sterile dressings to pad and protect area as ulceration was nearly healed, however, he decided to use hydrogel which led to significant maceration of the surrounding skin and increasing the ulceration size. Discussed his instructions on dressing changes thoroughly today. He voices understanding of what he is now supposed to do in following instruction. Ulceration subfourth metatarsal head of the right foot was debrided as noted in the clinical panel above. Ulceration measures 1.5 cm x 1.0 cm x 0.1 cm. He has completed all 10 applications of EpiFix graft. Wound was near closure however. Dry sterile dressing applied to the right foot to pad and protect area. He is instructed to change dressing daily. Ulceration demonstrates increase in size versus previous visit due to increased maceration secondary to inappropriate dressing change. He was previously given work note for time off to allow him to remain off of the wound site to allow healing at previous visit and this is aiding in his improvement for healing with continued reduction in ulcerative size versus previous visit. Recommended continued offloading in CAM boot to the right foot with plantar offloading padding. Surgical shoe also offloaded so that he may wear this when getting up to go to the bathroom at night. Otherwise will remain in CAM boot with plantar offloading padding. Discussed once ulcer has healed he is to return to diabetic shoes with diabetic inserts. He is instructed to not pick at any calluses in future as this led to his ulceration. Discussed proper diabetic diet and tight glycemic control to continue to aid in healing of his ulceration. Discussed adequate protein intake to continue to aid in wound healing. Bhaskar supplementation also recommended to aid in wound healing. Discussed signs of infection today. He was instructed if he notices increasing redness about the ulcerative site that moves up onto the foot or up his leg, if he notices purulent drainage from the wound site, if he notices increasing foul odor from the wound, or if he develops fever greater than 101 degree, or nausea, or vomiting, or chills, that these are signs of a progressing infection and he should report to the ED to receive IV antibiotics. He voices understanding of this. The following work up and care recommendations were made: Dressing: Dry sterile dressing to pad and protect area. Change dressing daily Wash: Soap and water Tissue growth optimization: None Offload: Plantar offloading padding and CAM boot right foot Vascular: DP and PT pulses Palpable with adequate capillary fill time. Do not feel vascular status is impacting wound healing. Edema: No signs of pedal edema Infection: No signs of infection Pain: No pain secondary to diabetic peripheral polyneuropathy Host factors: DM type I with peripheral polyneuropathy, patient's himself as iatrogenic cause to ulcer, pressure I answered all the patient's questions. To return to the wound healing center in 1 week or call sooner if the patient has any questions or concerns.
--- NOTE | 2023-11-03 09:32 | WC ---
10/23/2023 RIGHT LATERAL PLANTAR
[2023-11-06 09:22] VITALS: BP 138/75; PULSE 101; RESP 18; TEMP 36.4; BMI 35.9
--- NOTE | 2023-11-06 11:17 | PCM.WC.PN ---
History of Present Illness Date of Service: 11/06/23 Chief Complaint: right plantar foot ulcer and right leg ulcer History of Wound: This 38-year-old diabetic male presents to the wound healing center for a subfourth metatarsal ulceration of the right foot. 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 He states he tried to care for the ulceration for roughly 2 to 3 weeks in which it was not healing and presented to office. In office he did undergo debridement of the site continued offloading in cam boot however did not obtain his dressing supplies and was performing daily changes of wet to dry gauze. He was referred to the wound care center for applications of advanced wound care product. He states no pain secondary to diabetic peripheral polyneuropathy. He denies N/V/F/chills. He denies further complaints. Subjective Subjective This is a 38-year-old male who presents to the wound care center for follow-up of a plantar fourth metatarsal ulceration of the right foot. He is continued offloading site in CAM boot and surgical shoe with plantar offloading padding. He states he is not applying any new ointments to the site and noticed that is improving now with less maceration. States he has new job interview this afternoon. He denies constitutional symptoms. Denies further complaints. Objective Data Objective Data Vital Signs: Vital Signs Temp Pulse Resp BP O2 Del Method 97.5 F L 101 H 18 138/75 H Room Air 11/06/23 09:22 11/06/23 09:22 11/06/23 09:22 11/06/23 09:22 10/23/23 09:25 Oxygen Delivery Method Room Air Weight: 120.202 kg Body Mass Index (BMI) 35.9 Physical Exam Const alert, oriented x3 and no apparent distress General Appearance: cooperative HEENT normocephalic Eyes General Eye: normal appearance of both eyes Neck General: normal visual inspection Lymph Lymphatic: no lymphadenopathy noted and no lymphedema noted Resp normal respiratory effort Cardio regular rate and regular rhythm Extremity normal capillary refill, no joint enlargement, no calf tenderness and no pedal edema Extremity Narrative: DP and PT pulses palpable right foot. Capillary fill time less than 4 seconds to digits right foot. No pedal edema is noted. Dermatological: Skin is mildly xerotic to the plantar aspect. There is a ulceration subfourth metatarsal head with surrounding hyperkeratotic tissue and healthy appearing granular layer. There is scant serosanguineous drainage. No erythema, no purulent drainage, no malodor, no palpable fluctuance/bogginess noted, no visible abscess formation, no lymphangitic streaking. Musculoskeletal: Muscle strength 5 of 5 age-appropriate. Partial fifth ray amputation is noted to the right foot. Decreased range of motion of the ankle joint in dorsiflexion with the knee extended without pain or crepitus. Decreased range of motion of the first metatarsophalangeal joint without pain or crepitus. Skin no rashes or lesions noted, skin turgor normal and no jaundice Neuro moves all extremities Debridement Note Debridement Note No debridement was completed: No debridement was completed today Post-Debridement Measurements and Additional Note: Post-Debridement Measurements/Treatment - Nurse 1 - General Ulcer Assessment Start: 10/23/23 09:25 Freq: Status: Active Protocol: LORI Activity Type Activity Date Activity User E-sign Co-sign Detail Recorded Client Recorded Date Recorded By Document 10/23/23 09:25 KW Desktop 10/23/23 09:36 KW Document 10/30/23 09:22 DL Desktop 10/30/23 09:30 DL Document 11/06/23 09:22 RB Desktop 11/06/23 09:24 RB 10/23/23 10/30/23 11/06/23 09:25 09:22 09:22 - Today's Visit Information Type of service Follow-up Visit Follow-up Visit Follow-up Visit (Physician/LENS MOUNTER (Physician/LENS MOUNTER (Physician/LENS MOUNTER ) ) ) Arrival Mode Ambulatory Ambulatory Ambulatory Transfer Assistance None None Patient Identification Verified (Name & Yes Yes Yes ) Patient Requires Transmission-Based No No Precautions Height and Weight Body Mass Index (BMI) 35.9 35.9 35.9 BMI Classification Obese Obese Obese Vital Signs Temperature (97.8 F-99.1 F) 98.4 F 97.2 F L 97.5 F L Temperature Source Temporal Temporal Temporal Pulse Rate (60-100) 111 H 111 H 101 H Pulse Location Monitor Monitor Monitor Respiratory Rate (12-18) 18 20 H 18 Respiratory rate source Observation Observation Observation Oxygen Delivery Method Room Air Blood Pressure (90/60-120/80) 139/80 H 137/63 H 138/75 H Blood Pressure Mean (mm Hg) 99 87 96 Source Monitor Monitor Monitor Position Semi-Fowlers Semi-Fowlers Blood Pressure Location Left Arm Left Arm History Since Last Visit- (Skip if this is Patient's initial visit) Have you changed medications since your No No No last visit? Any new allergies or adverse reactions No No No Had a fall/change in ADL's that may No No No increase risk of falls Signs or symptoms of abuse and/or No No No neglect since last visit Have you been in the hospital since your No No No last visit? Has dressing in place as prescribed Yes Yes Yes Has compression in place as prescribed N/A Yes Yes Has offloadiing in place as prescribed Yes Yes No Experienced any changes in pain level or No No No management Left Footwear Regular Shoe Right Footwear Surgical Shoe with pressure relief insole Pain Scale: 0-10 Numeric Is Patient Pain Free? Yes Yes Yes WC - Nurse 1 - General Ulcer Measurement Start: 10/23/23 09:25 Freq: Status: Active Protocol: Activity Type Activity Date Activity User E-sign Co-sign Detail Recorded Client Recorded Date Recorded By Document 10/23/23 09:25 KW Desktop 10/23/23 09:36 KW Document 10/30/23 09:22 DL Desktop 10/30/23 09:30 DL Document 11/06/23 09:22 RB Desktop 11/06/23 09:24 RB 10/23/23 10/30/23 11/06/23 09:25 09:22 09:22 Wound Center Nurse 1 #4 Lateral Right Plantar Foot -Combined with other wound No -Current Size (cm) - Length 0.1 1 0.1 -Current Size (cm) - Width 0.1 0.2 0.1 -Current Size (cm) - Depth 0.1 0.3 0.1 -Total Square Cm 0.01 0.2 0.01 -Date of Last Picture (Recall this 10/23/23 field) -Photo Taken Yes -Tunneling No -Undermining/Tunneling No -Undermining/Tunneling Starts (O'clock 7 ) -Undermining/Tunneling Ends (O'clock) 10 -Maximum Distance (cm) 0.4 -Circular Undermining No -Exudate Amt Medium None Present -Exudate Type Serosanguineous -Wound Margin Distinct, Distinct, Outline Outline Attached Attached -Granulation Amt Small (1-33%) Medium (34-66%) -Granulation Quality [place] -Slough/Fibrin Yes -Necrosis Amt Large (67-100%) Small (1-33%) Small (1-33%) -Necrotic Tissue Type Adherent Slough Adherent Slough -Structure Exposed N/A N/A -Texture (Yu-wound Skin Appearance) Assessed,Callus Callus,Scarring Assessed,Callus -Moisture (Yu-wound Skin Appearance) Assessed,Dry/ Maceration Assessed Scaly -Color (Yu-wound Skin Appearance) Assessed No Abnormality Assessed -Temperature (Yu-wound Skin No Abnormality No Abnormality Appearance) (Pt Warm) (Pt Warm) -Tenderness on Palpation (Yu-wound No No No Skin Appearance) -Ulcer Cleansing Soap and Water Soap and Water Wound Cleanser -Foul Odor after Cleansing No No -Anesthetic Used 5% Lidocaine 5% Lidocaine 5% Lidocaine Gel Gel Gel WC - Nurse 2 - General Ulcer CM Notes Start: 10/23/23 09:25 Freq: Status: Active Protocol: Activity Type Activity Date Activity User E-sign Co-sign Detail Recorded Client Recorded Date Recorded By Document 10/23/23 09:44 [facility] [employer] 10/23/23 09:51 [facility] Document 10/30/23 09:42 [facility] Desktop 10/30/23 09:54 [facility] Document 11/06/23 09:46 [facility] Desktop 11/06/23 09:51 [facility] 10/23/23 10/30/23 11/06/23 09:44 09:42 09:46 Wound Center Nurse 2 #4 Lateral Right Plantar Foot -Time 09:44 09:47 09:46 -Correct Patient Yes Yes -Correct Side, Site, Position Yes Yes -Correct Procedure Yes Yes -Procedure Performed Yes Yes -Type of Procedure Debridement Debridement -Clinical Debridement Subcutaneous Subcutaneous -Tissue Removed Subcutaneous Subcutaneous -Post Debridement (cm) - Length 0.1 1.5 0.1 -Post Debridement (cm) - Width 0.1 1 0.1 -Post Debridement (cm) - Depth 0.1 0.1 0.1 -Total Square (Post) (cm) 0.01 1.5 0.01 -Area of Debridement (cm) - Length 0.1 1.5 0.1 -Area of Debridement (cm) - Width 0.1 1 0.1 -Total Square (Area) (cm) 0.01 1.5 0.01 -Tunneling No No No -Undermining/Tunneling No No No -Circular Undermining No No No -Wound/Ulcer Outcome Not Healed Not Healed Not Healed -Ulcer Cleansing Rinsed/ Rinsed/ Irrigated with Irrigated with Saline Saline -Foul Odor after Cleansing No No -Bioengineered Tissue No No -Bleeding Controlled with Pressure Pressure -Treatment Response Procedure Procedure Tolerated Well Tolerated Well -Offloading Yes Yes Yes -Type of Offloading Surgical Shoe Darco Shoe - Darco Shoe - Right Right -Other Type of Offloading w/ offloading pad -Debridement - Subq, 1st 20sq cm Yes Yes Pain Scale: 0-10 Numeric Is Patient Pain Free? Yes Yes Yes - Nurse 3 - General Ulcer D/C NN Start: 10/23/23 09:25 Freq: Status: Active Protocol: Activity Type Activity Date Activity User E-sign Co-sign Detail Recorded Client Recorded Date Recorded By Document 10/30/23 10:00 ML Desktop 10/30/23 10:06 ML Document 11/06/23 10:10 RB Desktop 11/06/23 10:10 RB 10/30/23 11/06/23 10:00 10:10 Wound Care Center Nurse 3 #4 Lateral Right Plantar Foot -Ulcer Cleansing Rinsed/ Irrigated with Saline -Foul Odor after Cleansing No -Primary Dressing Applied Promogran Mepilex Border Jessica Matter -Mepilex Border 1 -Promogran Jessica Matter 2 Treatment Response Procedure Tolerated Well Pain Scale: 0-10 Numeric Is Patient Pain Free? Yes Yes - Visit Discharge Discharge Condition Stable Stable Ambulatory Status Ambulatory Ambulatory Transportation Private Auto Medication Reconcilliation completed & No provided to patient/care provider Clinical Summary of Care Provided Yes Notes: danielle wrap applied Assessment/Plan Assessment/Plan (1) Ulcer of right foot with fat layer exposed: CODE(S): L97.512 - Non-pressure chronic ulcer of other part of right foot with fat layer exposed (2) Type 1 diabetes mellitus with diabetic polyneuropathy: CODE(S): E10.42 - Type 1 diabetes mellitus with diabetic polyneuropathy (3) Diabetes mellitus with foot ulcer: CODE(S): E11.621 - Type 2 diabetes mellitus with foot ulcer; L97.509 - Non-pressure chronic ulcer of other part of unspecified foot with unspecified severity (4) Delayed wound healing: CODE(S): T14.8XXD - Other injury of unspecified body region, subsequent encounter PLAN: Plan Patient seen and evaluated He was instructed to utilize dry sterile dressings to pad and protect area as ulceration was nearly healed, however, he decided to use hydrogel which led to significant maceration of the surrounding skin and increasing the ulceration size. Discussed his instructions on dressing changes thoroughly today. He voices understanding of what he is now supposed to do in following instruction. Ulceration subfourth metatarsal head of the right foot did not undergo debridement today. Ulceration measures 0.1 cm x 0.1 cm x 0.1 cm. He has completed all 10 applications of EpiFix graft. Wound is improving with no maceration and some epithelialization. Dry sterile dressing applied to the right foot to pad and protect area. He is instructed to change dressing daily. Ulceration demonstrates reduction in size versus previous visit with less maceration tissue now that he is stopped all ointments. He was previously given work note for time off to allow him to remain off of the wound site to allow healing at previous visit and this is aiding in his improvement for healing with continued reduction in ulcerative size versus previous visit. Recommended continued offloading in CAM boot to the right foot with plantar offloading padding. Surgical shoe also offloaded so that he may wear this when getting up to go to the bathroom at night. Otherwise will remain in CAM boot with plantar offloading padding. 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 Shoe insert was offloaded with a fourth metatarsal head cut out and plantar fifth metatarsal base cut out to reduce pressure at the sites in shoe gear. Discussed once ulcer has healed he is to return to diabetic shoes with diabetic inserts. He is instructed to not pick at any calluses in future as this led to his ulceration. Discussed obtaining new diabetic shoe gear with new custom inserts. A comprehensive diabetic foot and ankle examination was performed today 11/06/2023. Examination demonstrates diabetes mellitus type 1 with peripheral polyneuropathy, previous bilateral partial fifth metatarsal amputations, preulcerative callus subfourth metatarsal head of the left foot, ulceration subfourth metatarsal head right foot. I am recommending updating diabetic shoe gear with custom trilaminate diabetic inserts with a subfifth metatarsal base pocket and subfourth metatarsal head pocket for offloading of these prominent pressure sites of bilateral feet. Discussed proper diabetic diet and tight glycemic control to continue to aid in healing of his ulceration. Discussed adequate protein intake to continue to aid in wound healing. Bhaskar supplementation also recommended to aid in wound healing. Last A1c 10/27/[address] Clement was 6.6%. Discussed continuing his proper diabetic diet to ensure good glycemic control. Discussed signs of infection today. He was instructed if he notices increasing redness about the ulcerative site that moves up onto the foot or up his leg, if he notices purulent drainage from the wound site, if he notices increasing foul odor from the wound, or if he develops fever greater than 101 degree, or nausea, or vomiting, or chills, that these are signs of a progressing infection and he should report to the ED to receive IV antibiotics. He voices understanding of this. The following work up and care recommendations were made: Dressing: Dry sterile dressing to pad and protect area. Change dressing daily Wash: Soap and water Tissue growth optimization: None Offload: Plantar offloading padding and CAM boot right foot Vascular: DP and PT pulses Palpable with adequate capillary fill time. Do not feel vascular status is impacting wound healing. Edema: No signs of pedal edema Infection: No signs of infection Pain: No pain secondary to diabetic peripheral polyneuropathy Host factors: DM type I with peripheral polyneuropathy, patient's himself as iatrogenic cause to ulcer, pressure I answered all the patient's questions. To return to the wound healing center in 1 week or call sooner if the patient has any questions or concerns.
== END 2023-11-11 23:59 | disposition home or self-care (01) ==
LOC: WC 09:30
PROVIDERS: PCP Internal Medicine; Referring Provider Student in an Organized Health Care Education/Training Program; Visit Provider Student in an Organized Health Care Education/Training Program
DX: E10.621 Type 1 diabetes mellitus with foot ulcer (principal); L97.512 Non-pressure chronic ulcer of other part of right foot with fat layer exposed; E10.42 Type 1 diabetes mellitus with diabetic polyneuropathy; Z89.421 Acquired absence of other right toe(s)
CPT/HCPCS: 11042; 99213; G0463

== ENCOUNTER 2023-12-11 09:15 | Outpatient (RCR) | payer MEDICAID, SELFPAY ==
[2023-11-12 00:26] VITALS: BP 138/75; PULSE 101; RESP 18; TEMP 36.4; BMI 35.9
[2023-11-13 08:55] VITALS: BP 123/69; PULSE 87; TEMP 36.5; BMI 35.9
--- NOTE | 2023-11-13 09:12 | PN.PCM_ITS ---
History of Present Illness Date of Service: 11/13/23 Chief Complaint: right plantar foot ulcer and right leg ulcer History of Wound: This 38-year-old diabetic male presents to the wound healing center for a subfourth metatarsal ulceration of the right foot. 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 He states he tried to care for the ulceration for roughly 2 to 3 weeks in which it was not healing and presented to office. In office he did undergo debridement of the site continued offloading in cam boot however did not obtain his dressing supplies and was performing daily changes of wet to dry gauze. He was referred to the wound care center for applications of advanced wound care product. He states no pain secondary to diabetic peripheral polyneuropathy. He denies N/V/F/chills. He denies further complaints. Subjective Subjective This is a 38-year-old male who presents to the wound care center for follow-up of a plantar fourth metatarsal ulceration of the right foot. He is continued offloading site in CAM boot and surgical shoe with plantar offloading padding. He states he has continued instruction to not apply any new ointments to the site and noticed that he has continued improvement. States he did get a new job and is excited about this. He denies constitutional symptoms. Denies further complaints. Objective Data Objective Data Vital Signs: Vital Signs Temp Pulse Resp BP 97.7 F L 87 18 123/69 H 11/13/23 08:55 11/13/23 08:55 11/12/23 00:26 11/13/23 08:55 Weight: 120.202 kg Body Mass Index (BMI) 35.9 Physical Exam Const alert, oriented x3 and no apparent distress General Appearance: cooperative HEENT normocephalic Eyes General Eye: normal appearance of both eyes Neck General: normal visual inspection Lymph Lymphatic: no lymphadenopathy noted and no lymphedema noted Resp normal respiratory effort Cardio regular rate and regular rhythm Extremity normal capillary refill, no calf tenderness and no pedal edema Extremity Narrative: Vascular: DP and PT pulses palpable right foot. Capillary fill time less than 4 seconds to digits right foot. No pedal edema is noted. Dermatological: Skin is mildly xerotic to the plantar aspect. There is a ulceration subfourth metatarsal head which has healed with epithealiziation but does have friable base consistent with early healing. No drainage. No erythema, no purulent drainage, no malodor, no palpable fluctuance/bogginess noted, no visible abscess formation, no lymphangitic streaking. Musculoskeletal: Muscle strength 5 of 5 age-appropriate. Partial fifth ray amputation is noted to the right foot. Decreased range of motion of the ankle joint in dorsiflexion with the knee extended without pain or crepitus. Decreased range of motion of the first metatarsophalangeal joint without pain or crepitus. Skin no rashes or lesions noted, skin turgor normal and no jaundice Neuro moves all extremities Debridement Note Debridement Note No debridement was completed: No debridement was completed today Post-Debridement Measurements and Additional Note: Post-Debridement Measurements/Treatment - Nurse 1 - General Ulcer Assessment Start: 11/13/23 08:55 Freq: Status: Active Protocol: [email or web address] Activity Type Activity Date Activity User E-sign Co-sign Detail Recorded Client Recorded Date Recorded By Document 11/13/23 08:55 DS Desktop 11/13/23 09:01 DS 11/13/23 08:55 - Today's Visit Information Type of service Follow-up Visit (Physician/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 Any new allergies or adverse reactions No Had a fall/change in ADL's that may No increase risk of falls Signs or symptoms of abuse and/or No neglect since last visit Have you been in the hospital since your No last visit? Experienced any changes in pain level or No management Left Footwear Surgical Shoe with pressure relief insole Right Footwear Regular Shoe Pain Scale: 0-10 Numeric Is Patient Pain Free? Yes - Nurse 1 - General Ulcer Measurement Start: 11/13/23 08:55 Freq: Status: Active Protocol: Activity Type Activity Date Activity User E-sign Co-sign Detail Recorded Client Recorded Date Recorded By Document 11/13/23 08:55 Desktop 11/13/23 09:01 11/13/23 08:55 Wound Center Nurse 1 #4 Lateral Right Plantar Foot -Combined with other wound No -Tunneling No -Undermining/Tunneling No -Circular Undermining No -Exudate Amt None Present -Granulation Amt None Present (0 %) -Necrosis Amt None Present (0 %) -Texture (Yu-wound Skin Appearance) Assessed,Callus -Moisture (Yu-wound Skin Appearance) Assessed,Dry/ Scaly -Color (Yu-wound Skin Appearance) Assessed -Temperature (Yu-wound Skin No Abnormality Appearance) (Pt Warm) -Tenderness on Palpation (Yu-wound No Skin Appearance) -Ulcer Cleansing Rinsed/ Irrigated with Saline -Foul Odor after Cleansing No WC - Nurse 2 - General Ulcer CM Notes Start: 11/13/23 08:55 Freq: Status: Active Protocol: Activity Type Activity Date Activity User E-sign Co-sign Detail Recorded Client Recorded Date Recorded By Document 11/13/23 09:04 [facility] [employer] 11/13/23 09:07 [facility] 11/13/23 09:04 Wound Center Nurse 2 -Post Debridement (cm) - Length 0.1 -Post Debridement (cm) - Width 0.1 -Post Debridement (cm) - Depth 0.1 -Total Square (Post) (cm) 0.01 -Area of Debridement (cm) - Length 0.1 -Area of Debridement (cm) - Width 0.1 -Total Square (Area) (cm) 0.01 -Tunneling No -Undermining/Tunneling No -Circular Undermining No -Wound/Ulcer Outcome Not Healed -Bleeding Controlled with NA Pain Scale: 0-10 Numeric Is Patient Pain Free? Yes WC - Nurse 3 - General Ulcer D/C NN Start: 11/13/23 08:55 Freq: Status: Active Protocol: Activity Type Activity Date Activity User E-sign Co-sign Detail Recorded Client Recorded Date Recorded By Document 11/13/23 09:07 [facility] [employer] 11/13/23 09:11 [facility] 11/13/23 09:07 Wound Care Center Nurse 3 #4 Lateral Right Plantar Foot -Primary Dressing Applied Mepilex Border -Primary Dressing Covered/Secured with Dry Gauze -Mepilex Border 1 Treatment Response Procedure Tolerated Well Pain Scale: 0-10 Numeric Is Patient Pain Free? Yes WC - Visit Discharge Discharge Condition Stable Ambulatory Status Ambulatory Transportation Private Auto Assessment/Plan Assessment/Plan (1) Ulcer of right foot with fat layer exposed: CODE(S): L97.512 - Non-pressure chronic ulcer of other part of right foot with fat layer exposed (2) Type 1 diabetes mellitus with diabetic polyneuropathy: CODE(S): E10.42 - Type 1 diabetes mellitus with diabetic polyneuropathy (3) Diabetes mellitus with foot ulcer: CODE(S): E11.621 - Type 2 diabetes mellitus with foot ulcer; L97.509 - Non-pressure chronic ulcer of other part of unspecified foot with unspecified severity (4) Delayed wound healing: CODE(S): T14.8XXD - Other injury of unspecified body region, subsequent encounter PLAN: Plan Patient seen and evaluated He was instructed to utilize dry sterile dressings to pad and protect area as ulceration was nearly healed, however, he decided to use hydrogel which led to significant maceration of the surrounding skin and increasing the ulceration size. Discussed his instructions on dressing changes thoroughly today. He voices understanding of what he is now supposed to do in following instruction. Ulceration subfourth metatarsal head of the right foot did not undergo debridement today. Ulceration measures 0.1 cm x 0.1 cm x 0.1 cm. He has completed all 10 applications of EpiFix graft. Wound is improving with no maceration and continued epithelialization. Dry sterile dressing applied to the right foot to pad and protect area. He is instructed to change dressing daily. Ulceration demonstrates reduction in size versus previous visit with epithealization across wound bed. He was previously given work note for time off to allow him to remain off of the wound site to allow healing at previous visit and this is aiding in his improvement for healing with continued reduction in ulcerative size versus previous visit. Recommended continued offloading in CAM boot to the right foot with plantar offloading padding. Surgical shoe also offloaded so that he may wear this when getting up to go to the bathroom at night. Otherwise will remain in CAM boot with plantar offloading padding. 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 Shoe insert was offloaded with a fourth metatarsal head cut out and plantar fifth metatarsal base cut out to reduce pressure at the sites in shoe gear. Discussed once ulcer has healed he is to return to diabetic shoes with diabetic inserts. He is instructed to not pick at any calluses in future as this led to his ulceration. Discussed obtaining new diabetic shoe gear with new custom inserts. A comprehensive diabetic foot and ankle examination was performed 11/06/2023. Examination demonstrates diabetes mellitus type 1 with peripheral polyneuropathy, previous bilateral partial fifth metatarsal amputations, preulcerative callus subfourth metatarsal head of the left foot, ulceration subfourth metatarsal head right foot. I am recommending updating diabetic shoe gear with custom trilaminate diabetic inserts with a subfifth metatarsal base pocket and subfourth metatarsal head pocket for offloading of these prominent pressure sites of bilateral feet. Patient states he does have appointment upcoming to pick out his diabetic shoes and to be measured. Discussed proper diabetic diet and tight glycemic control to continue to aid in healing of his ulceration. Discussed adequate protein intake to continue to aid in wound healing. Bhaskar supplementation also recommended to aid in wound healing. Last A1c 10/27/[address] Clement was 6.6%. Discussed continuing his proper diabetic diet to ensure good glycemic control. He does experience mendez phenomenon and they are working to achieve glycemic control. Discussed signs of infection today. He was instructed if he notices increasing redness about the ulcerative site that moves up onto the foot or up his leg, if he notices purulent drainage from the wound site, if he notices increasing foul odor from the wound, or if he develops fever greater than 101 degree, or nausea, or vomiting, or chills, that these are signs of a progressing infection and he should report to the ED to receive IV antibiotics. He voices understanding of this. The following work up and care recommendations were made: Dressing: Dry sterile dressing to pad and protect area. Change dressing daily Wash: Soap and water Tissue growth optimization: None Offload: Plantar offloading padding and CAM boot right foot Vascular: DP and PT pulses Palpable with adequate capillary fill time. Do not feel vascular status is impacting wound healing. Edema: No signs of pedal edema Infection: No signs of infection Pain: No pain secondary to diabetic peripheral polyneuropathy Host factors: DM type I with peripheral polyneuropathy, patient's himself as iatrogenic cause to ulcer, pressure I answered all the patient's questions. To return to the wound healing center in 1 week or call sooner if the patient has any questions or concerns.
[2023-11-20 09:15] VITALS: RESP 12; TEMP 36.8; BMI 35.9
--- NOTE | 2023-11-20 09:47 | PCM.WC.PN ---
History of Present Illness Date of Service: 11/20/23 Chief Complaint: right plantar foot ulcer and right leg ulcer History of Wound: This 38-year-old diabetic male presents to the wound healing center for a subfourth metatarsal ulceration of the right foot. 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 He states he tried to care for the ulceration for roughly 2 to 3 weeks in which it was not healing and presented to office. In office he did undergo debridement of the site continued offloading in cam boot however did not obtain his dressing supplies and was performing daily changes of wet to dry gauze. He was referred to the wound care center for applications of advanced wound care product. He states no pain secondary to diabetic peripheral polyneuropathy. He denies N/V/F/chills. He denies further complaints. Subjective Subjective This is a 38-year-old male who presents to the wound care center for follow-up of a plantar fourth metatarsal ulceration of the right foot. He is continued offloading site in CAM boot and surgical shoe with plantar offloading padding. States he did get a new job and is excited about this and work is going well. He did get measured for diabetic shoe gear.. He denies constitutional symptoms. Denies further complaints. Objective Data Objective Data Vital Signs: Vital Signs Temp Pulse Resp BP 98.2 F 87 12 123/69 H 11/20/23 09:15 11/13/23 08:55 11/20/23 09:15 11/13/23 08:55 Weight: 120.202 kg Body Mass Index (BMI) 35.9 Physical Exam Const alert, oriented x3 and no apparent distress General Appearance: cooperative HEENT normocephalic Eyes General Eye: normal appearance of both eyes Neck General: normal visual inspection Lymph Lymphatic: no lymphadenopathy noted and no lymphedema noted Resp normal respiratory effort Cardio regular rate and regular rhythm Extremity normal capillary refill, no calf tenderness and no pedal edema Extremity Narrative: Vascular: DP and PT pulses palpable right foot. Capillary fill time less than 4 seconds to digits right foot. No pedal edema is noted. Dermatological: Skin is mildly xerotic to the plantar aspect. There is a ulceration subfourth metatarsal head which has healed with epithealiziation but does have friable base consistent with early healing. No drainage. No erythema, no purulent drainage, no malodor, no palpable fluctuance/bogginess noted, no visible abscess formation, no lymphangitic streaking. Musculoskeletal: Muscle strength 5 of 5 age-appropriate. Partial fifth ray amputation is noted to the right foot. Decreased range of motion of the ankle joint in dorsiflexion with the knee extended without pain or crepitus. Decreased range of motion of the first metatarsophalangeal joint without pain or crepitus. Skin no rashes or lesions noted, skin turgor normal and no jaundice Neuro moves all extremities Debridement Note Debridement Note No debridement was completed: No debridement was completed today Post-Debridement Measurements and Additional Note: Post-Debridement Measurements/Treatment WC - Nurse 1 - General Ulcer Assessment Start: 11/13/23 08:55 Freq: Status: Active Protocol: [email or web address] Activity Type Activity Date Activity User E-sign Co-sign Detail Recorded Client Recorded Date Recorded By Document 11/13/23 08:55 DS Desktop 11/13/23 09:01 DS Document 11/20/23 09:15 ML Desktop 11/20/23 09:18 ML 11/13/23 11/20/23 08:55 09:15 WC - Today's Visit Information Type of service Follow-up Visit Follow-up Visit (Physician/SENIOR SOFTWARE TEST ENGINEER (Physician/SENIOR SOFTWARE TEST ENGINEER ) ) Arrival Mode Ambulatory Ambulatory Transfer Assistance None Patient Identification Verified (Name & Yes Yes ) Patient Requires Transmission-Based No Precautions Finger Stick Blood Sugar(mg/dl) (if 128 indicated): Blood Sugar Stated by Patient Height and Weight Body Mass Index (BMI) 35.9 35.9 BMI Classification Obese Obese Vital Signs Temperature (97.8 F-99.1 F) 97.7 F L 98.2 F Temperature Source Temporal Temporal Pulse Rate (60-100) 87 Pulse Location Monitor Respiratory Rate (12-18) 12 Respiratory rate source Observation Blood Pressure (90/60-120/80) 123/69 H Blood Pressure Mean (mm Hg) 87 Source Monitor Position Sitting Blood Pressure Location Left Arm History Since Last Visit- (Skip if this is Patient's initial visit) Have you changed medications since your No No last visit? Any new allergies or adverse reactions No No Had a fall/change in ADL's that may No No increase risk of falls Signs or symptoms of abuse and/or No No neglect since last visit Have you been in the hospital since your No No last visit? Has dressing in place as prescribed No Has compression in place as prescribed No Has offloadiing in place as prescribed Yes Experienced any changes in pain level or No No management Left Footwear Surgical Shoe Regular Shoe with pressure relief insole Right Footwear Regular Shoe Regular Shoe Pain Scale: 0-10 Numeric Is Patient Pain Free? Yes Yes WC - Nurse 1 - General Ulcer Measurement Start: 11/13/23 08:55 Freq: Status: Active Protocol: Activity Type Activity Date Activity User E-sign Co-sign Detail Recorded Client Recorded Date Recorded By Document 11/13/23 08:55 DS Desktop 11/13/23 09:01 DS Document 11/20/23 09:15 ML Desktop 11/20/23 09:18 ML 11/13/23 11/20/23 08:55 09:15 Wound Center Nurse 1 #4 Lateral Right Plantar Foot -Combined with other wound No -Current Size (cm) - Length 0.1 -Current Size (cm) - Width 0.1 -Current Size (cm) - Depth 0.1 -Total Square Cm 0.01 -Tunneling No -Undermining/Tunneling No -Circular Undermining No -Exudate Amt None Present Medium -Granulation Amt None Present (0 Medium (34-66%) %) -Necrosis Amt None Present (0 Small (1-33%) %) -Texture (Yu-wound Skin Appearance) Assessed,Callus No Abnormality -Moisture (Yu-wound Skin Appearance) Assessed,Dry/ No Abnormality Scaly -Color (Yu-wound Skin Appearance) Assessed No Abnormality -Temperature (Yu-wound Skin No Abnormality No Abnormality Appearance) (Pt Warm) (Pt Warm) -Tenderness on Palpation (Yu-wound No No Skin Appearance) -Ulcer Cleansing Rinsed/ Rinsed/ Irrigated with Irrigated with Saline Saline -Foul Odor after Cleansing No -Anesthetic Used 5% Lidocaine Gel RENETTA - Nurse 2 - General Ulcer CM Notes Start: 11/13/23 08:55 Freq: Status: Active Protocol: Activity Type Activity Date Activity User E-sign Co-sign Detail Recorded Client Recorded Date Recorded By Document 11/13/23 09:04 [facility] Desktop 11/13/23 09:07 [facility] Document 11/20/23 09:29 DS Desktop 11/20/23 09:32 DS 11/13/23 11/20/23 09:04 09:29 Wound Center Nurse 2 #4 Lateral Right Plantar Foot -Post Debridement (cm) - Length 0.1 0.1 -Post Debridement (cm) - Width 0.1 0.1 -Post Debridement (cm) - Depth 0.1 0.1 -Total Square (Post) (cm) 0.01 0.01 -Area of Debridement (cm) - Length 0.1 0.1 -Area of Debridement (cm) - Width 0.1 0.1 -Total Square (Area) (cm) 0.01 0.01 -Tunneling No -Undermining/Tunneling No -Circular Undermining No -Wound/Ulcer Outcome Not Healed Not Healed -Ulcer Cleansing Rinsed/ Irrigated with Saline -Bleeding Controlled with NA NA -Offloading No -Other Type of Offloading OFFLOADING INSERTS Pain Scale: 0-10 Numeric Is Patient Pain Free? Yes Yes - Nurse 3 - General Ulcer D/C NN Start: 11/13/23 08:55 Freq: Status: Active Protocol: Activity Type Activity Date Activity User E-sign Co-sign Detail Recorded Client Recorded Date Recorded By Document 11/13/23 09:07 [facility] Desktop 11/13/23 09:11 [facility] 11/13/23 09:07 Wound Care Center Nurse 3 #4 Lateral Right Plantar Foot -Primary Dressing Applied Mepilex Border -Primary Dressing Covered/Secured with Dry Gauze -Mepilex Border 1 Treatment Response Procedure Tolerated Well Pain Scale: 0-10 Numeric Is Patient Pain Free? Yes - Visit Discharge Discharge Condition Stable Ambulatory Status Ambulatory Transportation Private Auto Assessment/Plan Assessment/Plan (1) Ulcer of right foot with fat layer exposed: CODE(S): L97.512 - Non-pressure chronic ulcer of other part of right foot with fat layer exposed (2) Type 1 diabetes mellitus with diabetic polyneuropathy: CODE(S): E10.42 - Type 1 diabetes mellitus with diabetic polyneuropathy (3) Diabetes mellitus with foot ulcer: CODE(S): E11.621 - Type 2 diabetes mellitus with foot ulcer; L97.509 - Non-pressure chronic ulcer of other part of unspecified foot with unspecified severity (4) Delayed wound healing: CODE(S): T14.8XXD - Other injury of unspecified body region, subsequent encounter PLAN: Plan Patient seen and evaluated He was instructed to utilize dry sterile dressings to pad and protect area as ulceration as he is nearly healed. Discussed his instructions on dressing changes thoroughly today. He voices understanding of what he is supposed to do in following instruction. Ulceration subfourth metatarsal head of the right foot did not undergo debridement today. Ulceration measures 0.1 cm x 0.1 cm x 0.1 cm. He has completed all 10 applications of EpiFix graft. Wound is improving with no maceration and continued epithelialization. Dry sterile dressing applied to the right foot to pad and protect area. He is instructed to change dressing daily. He does have hyperkeratosis sub 4th metatarsal head of the left foot which he did spit the skin after applying a bandage over this site for protection. This is observed today and noted to be a superficial skin fissure. No signs of infection. Discussed continuing to pad and protect the area with a larger Band-Aid and offloading was also applied to his work boot for the left shoe. Ulceration demonstrates reduction in size versus previous visit with continued epithealization across wound bed. He was previously given work note for time off to allow him to remain off of the wound site to allow healing at previous visit and this is aiding in his improvement for healing with continued reduction in ulcerative size versus previous visit. Recommended continued offloading in CAM boot to the right foot with plantar offloading padding. Surgical shoe also offloaded so that he may wear this when getting up to go to the bathroom at night. Otherwise will remain in CAM boot with plantar offloading padding. 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 Shoe insert was offloaded with a fourth metatarsal head cut out and plantar fifth metatarsal base cut out to reduce pressure at the sites in shoe gear. This was also performed for Left foot sub 4th metatarsal. Discussed once ulcer has healed he is to return to diabetic shoes with diabetic inserts. He is instructed to not pick at any calluses in future as this led to his ulceration. Discussed obtaining new diabetic shoe gear with new custom inserts. A comprehensive diabetic foot and ankle examination was performed 11/06/2023. Examination demonstrates diabetes mellitus type 1 with peripheral polyneuropathy, previous bilateral partial fifth metatarsal amputations, preulcerative callus subfourth metatarsal head of the left foot, ulceration subfourth metatarsal head right foot. I am recommending updating diabetic shoe gear with custom trilaminate diabetic inserts with a subfifth metatarsal base pocket and subfourth metatarsal head pocket for offloading of these prominent pressure sites of bilateral feet. Patient states he did get measured for diabetic shoes and is now awaiting order to arrive with his custom foot inserts for improved offloading. Discussed proper diabetic diet and tight glycemic control to continue to aid in healing of his ulceration. Discussed adequate protein intake to continue to aid in wound healing. Bhaskar supplementation also recommended to aid in wound healing. Last A1c 10/27/[address] Clement was 6.6%. Discussed continuing his proper diabetic diet to ensure good glycemic control. He does experience mendez phenomenon and they are working to achieve glycemic control. Discussed signs of infection today. He was instructed if he notices increasing redness about the ulcerative site that moves up onto the foot or up his leg, if he notices purulent drainage from the wound site, if he notices increasing foul odor from the wound, or if he develops fever greater than 101 degree, or nausea, or vomiting, or chills, that these are signs of a progressing infection and he should report to the ED to receive IV antibiotics. He voices understanding of this. The following work up and care recommendations were made: Dressing: Dry sterile dressing to pad and protect area. Change dressing daily Wash: Soap and water Tissue growth optimization: None Offload: Plantar offloading padding and CAM boot right foot Vascular: DP and PT pulses Palpable with adequate capillary fill time. Do not feel vascular status is impacting wound healing. Edema: No signs of pedal edema Infection: No signs of infection Pain: No pain secondary to diabetic peripheral polyneuropathy Host factors: DM type I with peripheral polyneuropathy, patient's himself as iatrogenic cause to ulcer, pressure I answered all the patient's questions. To return to the wound healing center in 1 week or call sooner if the patient has any questions or concerns.
[2023-11-27 09:14] VITALS: BP 130/86; PULSE 87; RESP 15; TEMP 36.2; BMI 35.9
--- NOTE | 2023-11-27 11:23 | WC ---
11/27/2023 (H) RIGHT LATERAL PLANTAR
--- NOTE | 2023-11-27 12:45 | PN.PCM_ITS ---
History of Present Illness Date of Service: 11/27/23 Chief Complaint: right plantar foot ulcer and right leg ulcer History of Wound: This 38-year-old diabetic male presents to the wound healing center for a subfourth metatarsal ulceration of the right foot. 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 He states he tried to care for the ulceration for roughly 2 to 3 weeks in which it was not healing and presented to office. In office he did undergo debridement of the site continued offloading in cam boot however did not obtain his dressing supplies and was performing daily changes of wet to dry gauze. He was referred to the wound care center for applications of advanced wound care product. He states no pain secondary to diabetic peripheral polyneuropathy. He denies N/V/F/chills. He denies further complaints. Subjective Subjective This is a 38-year-old male who presents to the wound care center for follow-up of a plantar fourth metatarsal ulceration of the right foot. He is continued offloading site in CAM boot and surgical shoe with plantar offloading padding. Did get new job and work is going well. He did get measured for diabetic shoe gear, awaiting arrival of shoe gear. He denies constitutional symptoms. Denies further complaints. Objective Data Objective Data Vital Signs: Vital Signs Temp Pulse Resp BP 97.2 F L 87 15 130/86 H 11/27/23 09:14 11/27/23 09:14 11/27/23 09:14 11/27/23 09:14 Weight: 120.202 kg Body Mass Index (BMI) 35.9 Physical Exam Const alert, oriented x3 and no apparent distress General Appearance: cooperative HEENT normocephalic Eyes General Eye: normal appearance of both eyes Neck General: normal visual inspection Lymph Lymphatic: no lymphadenopathy noted and no lymphedema noted Resp normal respiratory effort Cardio regular rate and regular rhythm Extremity normal capillary refill, no calf tenderness and no pedal edema Extremity Narrative: Vascular: DP and PT pulses palpable right foot. Capillary fill time less than 4 seconds to digits right foot. No pedal edema is noted. Dermatological: Skin is mildly xerotic to the plantar aspect. There is a ulceration subfourth metatarsal head which has healed with epithealiziation but does have friable base consistent with early healing. No drainage. No erythema, no purulent drainage, no malodor, no palpable fluctuance/bogginess noted, no visible abscess formation, no lymphangitic streaking. Musculoskeletal: Muscle strength 5 of 5 age-appropriate. Partial fifth ray amputation is noted to the right foot. Decreased range of motion of the ankle joint in dorsiflexion with the knee extended without pain or crepitus. Decreased range of motion of the first metatarsophalangeal joint without pain or crepitus. Skin no rashes or lesions noted, skin turgor normal and no jaundice Neuro moves all extremities Debridement Note Debridement Note Wound debrided: Subfourth metatarsal head right foot Laterality: Right Wound Grade/Stage: Reynoso stage I Type of Debridement: Excisional debridement Anesthesia Used: 5% Lidocaine Gel Depth: Down to and including healthy tissue and in the subcutaneous layer Percentage of wound debrided: 100 Instrument Used: - (313 blade) Tissue Removed: Fibrous, devitalized subcutaneous, biofilm, slough Severity: Fat Layer Exposed Amount of bleeding with debridement: Mild Bleeding Controlled with: Compression and gauze Patient tolerated procedure: Patient tolerated procedure well Post-Debridement Measurements and Additional Note: Post-Debridement Measurements/Treatment - Nurse 1 - General Ulcer Assessment Start: 11/13/23 08:55 Freq: Status: Active Protocol: LORI Activity Type Activity Date Activity User E-sign Co-sign Detail Recorded Client Recorded Date Recorded By Document 11/13/23 08:55 DS Desktop 11/13/23 09:01 DS Document 11/20/23 09:15 ML Desktop 11/20/23 09:18 ML Document 11/27/23 09:14 ML [email or web address] 11/27/23 09:17 ML 11/13/23 11/20/23 11/27/23 08:55 09:15 09:14 - Today's Visit Information Type of service Follow-up Visit Follow-up Visit Follow-up Visit (Physician/[employer]IL G[employer] PIPE TESTER (Physician/[employer] G[employer] AND PIPE TESTER (Physician/OIL G[employer] AND PIPE TESTER ) ) ) Arrival Mode Ambulatory Ambulatory Ambulatory Transfer Assistance None None Patient Identification Verified (Name & Yes Yes Yes ) Patient Requires Transmission-Based No No Precautions Finger Stick Blood Sugar(mg/dl) (if 128 124 indicated): Blood Sugar Stated by Stated by Patient Patient Height and Weight Body Mass Index (BMI) 35.9 35.9 35.9 BMI Classification Obese Obese Obese Vital Signs Temperature (97.8 F-99.1 F) 97.7 F L 98.2 F 97.2 F L Temperature Source Temporal Temporal Temporal Pulse Rate (60-100) 87 87 Pulse Location Monitor Monitor Respiratory Rate (12-18) 12 15 Respiratory rate source Observation Observation Blood Pressure (90/60-120/80) 123/69 H 130/86 H Blood Pressure Mean (mm Hg) 87 100 Source Monitor Monitor Position Sitting Sitting Blood Pressure Location Left Arm Left Arm History Since Last Visit- (Skip if this is Patient's initial visit) Have you changed medications since your No No No last visit? Any new allergies or adverse reactions No No No Had a fall/change in ADL's that may No No No increase risk of falls Signs or symptoms of abuse and/or No No No neglect since last visit Have you been in the hospital since your No No No last visit? Has dressing in place as prescribed No Yes Has compression in place as prescribed No Yes Has offloadiing in place as prescribed Yes N/A Experienced any changes in pain level or No No No management Left Footwear Surgical Shoe Regular Shoe Regular Shoe with pressure relief insole Right Footwear Regular Shoe Regular Shoe Regular Shoe Pain Scale: 0-10 Numeric Is Patient Pain Free? Yes Yes Yes WC - Nurse 1 - General Ulcer Measurement Start: 11/13/23 08:55 Freq: Status: Active Protocol: Activity Type Activity Date Activity User E-sign Co-sign Detail Recorded Client Recorded Date Recorded By Document 11/13/23 08:55 DS Desktop 11/13/23 09:01 DS Document 11/20/23 09:15 ML Desktop 11/20/23 09:18 ML Document 11/27/23 09:14 ML [email or web address] 11/27/23 09:17 ML 11/13/23 11/20/23 11/27/23 08:55 09:15 09:14 Wound Center Nurse 1 #4 Lateral Right Plantar Foot -Combined with other wound No -Current Size (cm) - Length 0.1 0.1 -Current Size (cm) - Width 0.1 0.1 -Current Size (cm) - Depth 0.1 0.1 -Total Square Cm 0.01 0.01 -Tunneling No -Undermining/Tunneling No -Circular Undermining No -Exudate Amt None Present Medium Medium -Exudate Type Serosanguineous -Granulation Amt None Present (0 Medium (34-66%) Medium (34-66%) %) -Necrosis Amt None Present (0 Small (1-33%) Medium (34-66%) %) -Texture (Yu-wound Skin Appearance) Assessed,Callus No Abnormality No Abnormality -Moisture (Yu-wound Skin Appearance) Assessed,Dry/ No Abnormality No Abnormality Scaly -Color (Yu-wound Skin Appearance) Assessed No Abnormality No Abnormality -Temperature (Yu-wound Skin No Abnormality No Abnormality No Abnormality Appearance) (Pt Warm) (Pt Warm) (Pt Warm) -Tenderness on Palpation (Yu-wound No No No Skin Appearance) -Ulcer Cleansing Rinsed/ Rinsed/ Rinsed/ Irrigated with Irrigated with Irrigated with Saline Saline Saline -Foul Odor after Cleansing No -Anesthetic Used 5% Lidocaine 5% Lidocaine Gel Gel WC - Nurse 2 - General Ulcer CM Notes Start: 11/13/23 08:55 Freq: Status: Active Protocol: Activity Type Activity Date Activity User E-sign Co-sign Detail Recorded Client Recorded Date Recorded By Document 11/13/23 09:04 BMF Desktop 11/13/23 09:07 BMF Document 11/20/23 09:29 DS Desktop 11/20/23 09:32 DS Document 11/27/23 09:30 BMF [email or web address] 11/27/23 09:38 BMF Edit Result 11/27/23 09:30 BMF (1) [id number] 11/27/23 09:49 BMF (1) #4 Lateral Right Plantar Foot - Wound/Ulcer Outcome => Not Healed 11/13/23 11/20/23 11/27/23 09:04 09:29 09:30 Wound Center Nurse 2 #4 Lateral Right Plantar Foot -Time 09:34 -Correct Patient Yes -Correct Side, Site, Position Yes -Correct Procedure Yes -Procedure Performed Yes -Type of Procedure Debridement -Clinical Debridement Subcutaneous -Tissue Removed Subcutaneous -Post Debridement (cm) - Length 0.1 0.1 0.1 -Post Debridement (cm) - Width 0.1 0.1 0.1 -Post Debridement (cm) - Depth 0.1 0.1 0.1 -Total Square (Post) (cm) 0.01 0.01 0.01 -Area of Debridement (cm) - Length 0.1 0.1 0.1 -Area of Debridement (cm) - Width 0.1 0.1 0.1 -Total Square (Area) (cm) 0.01 0.01 0.01 -Tunneling No No -Undermining/Tunneling No No -Circular Undermining No No -Wound/Ulcer Outcome Not Healed Not Healed Not Healed -Ulcer Cleansing Rinsed/ Rinsed/ Irrigated with Irrigated with Saline Saline -Foul Odor after Cleansing No -Bioengineered Tissue No -Bleeding Controlled with NA NA Pressure -Treatment Response Procedure Tolerated Well -Offloading No Yes -Type of Offloading Other -Other Type of Offloading OFFLOADING inserts; also INSERTS waiting on custom thru foot/ankle center -Debridement - Subq, 1st 20sq cm Yes Pain Scale: 0-10 Numeric Is Patient Pain Free? Yes Yes Yes - Nurse 3 - General Ulcer D/C NN Start: 11/13/23 08:55 Freq: Status: Active Protocol: Activity Type Activity Date Activity User E-sign Co-sign Detail Recorded Client Recorded Date Recorded By Document 11/13/23 09:07 [facility] Desktop 11/13/23 09:11 [facility] Document 11/27/23 09:47 [facility] [id number] 11/27/23 09:48 [facility] 11/13/23 11/27/23 09:07 09:47 Wound Care Center Nurse 3 #4 Lateral Right Plantar Foot -Ulcer Cleansing Rinsed/ Irrigated with Saline -Foul Odor after Cleansing No -Primary Dressing Applied Mepilex Border Mepilex Border, Promogran Jessica Matter -Primary Dressing Covered/Secured with Dry Gauze -Mepilex Border 1 1 -Promogran Jessica Matter 1 Treatment Response Procedure Procedure Tolerated Well Tolerated Well Pain Scale: 0-10 Numeric Is Patient Pain Free? Yes Yes - Visit Discharge Discharge Condition Stable Stable Ambulatory Status Ambulatory Ambulatory Transportation Private Auto Private Auto Assessment/Plan Assessment/Plan (1) Ulcer of right foot with fat layer exposed: CODE(S): L97.512 - Non-pressure chronic ulcer of other part of right foot with fat layer exposed (2) Type 1 diabetes mellitus with diabetic polyneuropathy: CODE(S): E10.42 - Type 1 diabetes mellitus with diabetic polyneuropathy (3) Diabetes mellitus with foot ulcer: CODE(S): E11.621 - Type 2 diabetes mellitus with foot ulcer; L97.509 - Non-pressure chronic ulcer of other part of unspecified foot with unspecified severity (4) Delayed wound healing: CODE(S): T14.8XXD - Other injury of unspecified body region, subsequent encounter PLAN: Plan Patient seen and evaluated He was instructed to utilize dry sterile dressings to pad and protect area as ulceration as he is nearly healed. Discussed his instructions on dressing changes thoroughly today. He voices understanding of what he is supposed to do in following instruction. Ulceration subfourth metatarsal head of the right foot did undergo debridement today. Ulceration measures 0.1 cm x 0.1 cm x 0.1 cm. Jessica applied with DSD. He has completed all 10 applications of EpiFix graft. Wound is improving with no maceration and continued epithelialization but pressure remains a consistent problem. Dry sterile dressing applied to the right foot to pad and protect area. He is instructed to change dressing daily. He does have hyperkeratosis sub 4th metatarsal head of the left foot which he did spit the skin after applying a bandage over this site for protection. This is observed today and noted to be a superficial skin fissure. No signs of infection. Discussed continuing to pad and protect the area with a larger Band- Aid and offloading was also applied to his work boot for the left shoe. Hyperkeratosis subfourth metatarsal head of the left foot did undergo sharp debridement with 313 blade today. This was performed without incident. Ulceration demonstrates reduction in size versus previous visit with continued epithealization across wound bed. He was previously given work note for time off to allow him to remain off of the wound site to allow healing at previous visit and this is aiding in his improvement for healing with continued reduction in ulcerative size versus previous visit. Recommended continued offloading in CAM boot to the right foot with plantar offloading padding. Surgical shoe also offloaded so that he may wear this when getting up to go to the bathroom at night. Otherwise will remain in CAM boot with plantar offloading padding. 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 Shoe insert was offloaded with a fourth metatarsal head cut out and plantar fifth metatarsal base cut out to reduce pressure at the sites in shoe gear. This was also performed for Left foot sub 4th metatarsal. Discussed once ulcer has healed he is to return to diabetic shoes with diabetic inserts. He is instructed to not pick at any calluses in future as this led to his ulceration. Discussed obtaining new diabetic shoe gear with new custom inserts. A comprehensive diabetic foot and ankle examination was performed 11/06/2023. Examination demonstrates diabetes mellitus type 1 with peripheral polyneuropathy, previous bilateral partial fifth metatarsal amputations, preulcerative callus subfourth metatarsal head of the left foot, ulceration subfourth metatarsal head right foot. I am recommending updating diabetic shoe gear with custom trilaminate diabetic inserts with a subfifth metatarsal base pocket and subfourth metatarsal head pocket for offloading of these prominent pressure sites of bilateral feet. Patient states he did get measured for diabetic shoes and is now awaiting order to arrive with his custom foot inserts for improved offloading. Discussed proper diabetic diet and tight glycemic control to continue to aid in healing of his ulceration. Discussed adequate protein intake to continue to aid in wound healing. Bhaskar supplementation also recommended to aid in wound healing. Last A1c 10/27/[address] Clement was 6.6%. Discussed continuing his proper diabetic diet to ensure good glycemic control. He does experience mendez phenomenon and they are working to achieve glycemic control. Discussed signs of infection today. He was instructed if he notices increasing redness about the ulcerative site that moves up onto the foot or up his leg, if he notices purulent drainage from the wound site, if he notices increasing foul odor from the wound, or if he develops fever greater than 101 degree, or nausea, or vomiting, or chills, that these are signs of a progressing infection and he should report to the ED to receive IV antibiotics. He voices understanding of this. The following work up and care recommendations were made: Dressing: Dry sterile dressing to pad and protect area. Change dressing daily Wash: Soap and water Tissue growth optimization: None Offload: Plantar offloading padding and CAM boot right foot Vascular: DP and PT pulses Palpable with adequate capillary fill time. Do not feel vascular status is impacting wound healing. Edema: No signs of pedal edema Infection: No signs of infection Pain: No pain secondary to diabetic peripheral polyneuropathy Host factors: DM type I with peripheral polyneuropathy, patient's himself as iatrogenic cause to ulcer, pressure I answered all the patient's questions. To return to the wound healing center in 1 week or call sooner if the patient has any questions or concerns.
[2023-12-04 09:26] VITALS: BP 129/76; PULSE 90; RESP 18; TEMP 36.8; BMI 35.9
--- NOTE | 2023-12-04 10:16 | PCM.WC.PN ---
History of Present Illness Date of Service: 12/04/23 Chief Complaint: right plantar foot ulcer and right leg ulcer History of Wound: This 38-year-old diabetic male presents to the wound healing center for a subfourth metatarsal ulceration of the right foot. 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 He states he tried to care for the ulceration for roughly 2 to 3 weeks in which it was not healing and presented to office. In office he did undergo debridement of the site continued offloading in cam boot however did not obtain his dressing supplies and was performing daily changes of wet to dry gauze. He was referred to the wound care center for applications of advanced wound care product. He states no pain secondary to diabetic peripheral polyneuropathy. He denies N/V/F/chills. He denies further complaints. Subjective Subjective This is a 38-year-old male who presents to the wound care center for follow-up of a plantar fourth metatarsal ulceration of the right foot. He is continued offloading site in surgical shoe with plantar offloading padding. 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 He did get measured for diabetic shoe gear, awaiting arrival of shoe gear. He denies constitutional symptoms. Denies further complaints. Objective Data Objective Data Vital Signs: Vital Signs Temp Pulse Resp BP 98.2 F 90 18 129/76 H 12/04/23 09:26 12/04/23 09:26 12/04/23 09:26 12/04/23 09:26 Weight: 120.202 kg Body Mass Index (BMI) 35.9 Physical Exam Const alert, oriented x3 and no apparent distress General Appearance: cooperative HEENT normocephalic Eyes General Eye: normal appearance of both eyes Neck General: normal visual inspection Lymph Lymphatic: no lymphadenopathy noted and no lymphedema noted Resp normal respiratory effort Cardio regular rate and regular rhythm Extremity normal capillary refill, no calf tenderness and no pedal edema Extremity Narrative: Vascular: DP and PT pulses palpable right foot. Capillary fill time less than 4 seconds to digits right foot. No pedal edema is noted. Dermatological: Skin is mildly xerotic to the plantar aspect. There is a ulceration subfourth metatarsal head which has healed with epithealiziation but does have friable base consistent with early healing. No drainage. No erythema, no purulent drainage, no malodor, no palpable fluctuance/bogginess noted, no visible abscess formation, no lymphangitic streaking. Subfourth metatarsal head left foot demonstrates hyperkeratosis with subdermal hemorrhaging. Musculoskeletal: Muscle strength 5 of 5 age-appropriate. Partial fifth ray amputation is noted to the right foot. Decreased range of motion of the ankle joint in dorsiflexion with the knee extended without pain or crepitus. Decreased range of motion of the first metatarsophalangeal joint without pain or crepitus. Skin no rashes or lesions noted, skin turgor normal and no jaundice Neuro moves all extremities Debridement Note Debridement Note Wound debrided: Subfourth metatarsal head right foot Laterality: Right Wound Grade/Stage: Reynoso stage I Type of Debridement: Excisional debridement Anesthesia Used: 5% Lidocaine Gel Depth: Down to and including healthy tissue and in the subcutaneous layer Percentage of wound debrided: 100 Instrument Used: #15 blade Tissue Removed: Fibrous, devitalized subcutaneous, biofilm, slough Severity: Fat Layer Exposed Amount of bleeding with debridement: Mild Bleeding Controlled with: Compression and gauze Patient tolerated procedure: Patient tolerated procedure well Post-Debridement Measurements and Additional Note: Post-Debridement Measurements/Treatment - Nurse 1 - General Ulcer Assessment Start: 11/13/23 08:55 Freq: Status: Active Protocol: LORI Activity Type Activity Date Activity User E-sign Co-sign Detail Recorded Client Recorded Date Recorded By Document 11/13/23 08:55 DS Desktop 11/13/23 09:01 DS Document 11/20/23 09:15 ML Desktop 11/20/23 09:18 ML Document 11/27/23 09:14 ML 10.10.25.7 11/27/23 09:17 ML Document 12/04/23 09:26 RB wound cemter 12/04/23 09:28 RB 11/13/23 11/20/23 11/27/23 08:55 09:15 09:14 - Today's Visit Information Type of service Follow-up Visit Follow-up Visit Follow-up Visit (Physician/CYBER POLICY AND STRATEGY PLANNER (Physician/CYBER POLICY AND STRATEGY PLANNER (Physician/CYBER POLICY AND STRATEGY PLANNER ) ) ) Arrival Mode Ambulatory Ambulatory Ambulatory Transfer Assistance None None Patient Identification Verified (Name & Yes Yes Yes ) Patient Requires Transmission-Based No No Precautions Finger Stick Blood Sugar(mg/dl) (if 128 124 indicated): Blood Sugar Stated by Stated by Patient Patient Height and Weight Body Mass Index (BMI) 35.9 35.9 35.9 BMI Classification Obese Obese Obese Vital Signs Temperature (97.8 F-99.1 F) 97.7 F L 98.2 F 97.2 F L Temperature Source Temporal Temporal Temporal Pulse Rate (60-100) 87 87 Pulse Location Monitor Monitor Respiratory Rate (12-18) 12 15 Respiratory rate source Observation Observation Blood Pressure (90/60-120/80) 123/69 H 130/86 H Blood Pressure Mean (mm Hg) 87 100 Source Monitor Monitor Position Sitting Sitting Blood Pressure Location Left Arm Left Arm History Since Last Visit- (Skip if this is Patient's initial visit) Have you changed medications since your No No No last visit? Any new allergies or adverse reactions No No No Had a fall/change in ADL's that may No No No increase risk of falls Signs or symptoms of abuse and/or No No No neglect since last visit Have you been in the hospital since your No No No last visit? Has dressing in place as prescribed No Yes Has compression in place as prescribed No Yes Has offloadiing in place as prescribed Yes N/A Experienced any changes in pain level or No No No management Left Footwear Surgical Shoe Regular Shoe Regular Shoe with pressure relief insole Right Footwear Regular Shoe Regular Shoe Regular Shoe Pain Scale: 0-10 Numeric Is Patient Pain Free? Yes Yes Yes 12/04/23 09:26 WC - Today's Visit Information Type of service Follow-up Visit (Physician/CYBER POLICY AND STRATEGY PLANNER ) Arrival Mode Ambulatory Transfer Assistance None Patient Identification Verified (Name & Yes ) Patient Requires Transmission-Based No Precautions Finger Stick Blood Sugar(mg/dl) (if indicated): Blood Sugar Height and Weight Body Mass Index (BMI) 35.9 BMI Classification Obese Vital Signs Temperature (97.8 F-99.1 F) 98.2 F Temperature Source Temporal Pulse Rate (60-100) 90 Pulse Location Monitor Respiratory Rate (12-18) 18 Respiratory rate source Observation Blood Pressure (90/60-120/80) 129/76 H Blood Pressure Mean (mm Hg) 93 Source Monitor Position Semi-Fowlers Blood Pressure Location Left Arm History Since Last Visit- (Skip if this is Patient's initial visit) Have you changed medications since your No last visit? Any new allergies or adverse reactions No Had a fall/change in ADL's that may No increase risk of falls Signs or symptoms of abuse and/or No neglect since last visit Have you been in the hospital since your No last visit? Has dressing in place as prescribed Yes Has compression in place as prescribed No Has offloadiing in place as prescribed No Experienced any changes in pain level or No management Left Footwear Regular Shoe Right Footwear Regular Shoe Pain Scale: 0-10 Numeric Is Patient Pain Free? Yes WC - Nurse 1 - General Ulcer Measurement Start: 11/13/23 08:55 Freq: Status: Active Protocol: Activity Type Activity Date Activity User E-sign Co-sign Detail Recorded Client Recorded Date Recorded By Document 11/13/23 08:55 DS Desktop 11/13/23 09:01 DS Document 11/20/23 09:15 ML Desktop 11/20/23 09:18 ML Document 11/27/23 09:14 ML [email or web address] 11/27/23 09:17 ML Document 12/04/23 09:26 RB wound cemter 12/04/23 09:28 RB 11/13/23 11/20/23 11/27/23 08:55 09:15 09:14 Wound Center Nurse 1 #4 Lateral Right Plantar Foot -Combined with other wound No -Current Size (cm) - Length 0.1 0.1 -Current Size (cm) - Width 0.1 0.1 -Current Size (cm) - Depth 0.1 0.1 -Total Square Cm 0.01 0.01 -Tunneling No -Undermining/Tunneling No -Circular Undermining No -Exudate Amt None Present Medium Medium -Exudate Type Serosanguineous -Wound Margin -Granulation Amt None Present (0 Medium (34-66%) Medium (34-66%) %) -Granulation Quality -Slough/Fibrin -Necrosis Amt None Present (0 Small (1-33%) Medium (34-66%) %) -Necrotic Tissue Type -Structure Exposed -Texture (Yu-wound Skin Appearance) Assessed,Callus No Abnormality No Abnormality -Moisture (Yu-wound Skin Appearance) Assessed,Dry/ No Abnormality No Abnormality Scaly -Color (Yu-wound Skin Appearance) Assessed No Abnormality No Abnormality -Temperature (Yu-wound Skin No Abnormality No Abnormality No Abnormality Appearance) (Pt Warm) (Pt Warm) (Pt Warm) -Tenderness on Palpation (Yu-wound No No No Skin Appearance) -Ulcer Cleansing Rinsed/ Rinsed/ Rinsed/ Irrigated with Irrigated with Irrigated with Saline Saline Saline -Foul Odor after Cleansing No -Anesthetic Used 5% Lidocaine 5% Lidocaine Gel Gel 12/04/23 09:26 Wound Center Nurse 1 #4 Lateral Right Plantar Foot -Combined with other wound No -Current Size (cm) - Length 0.1 -Current Size (cm) - Width 0.1 -Current Size (cm) - Depth 0.1 -Total Square Cm 0.01 -Tunneling No -Undermining/Tunneling No -Circular Undermining No -Exudate Amt Medium -Exudate Type Serosanguineous -Wound Margin Thickened -Granulation Amt Medium (34-66%) -Granulation Quality Corinna -Slough/Fibrin Yes -Necrosis Amt Medium (34-66%) -Necrotic Tissue Type Adherent Slough -Structure Exposed N/A -Texture (Yu-wound Skin Appearance) Callus -Moisture (Yu-wound Skin Appearance) Assessed -Color (Yu-wound Skin Appearance) Assessed -Temperature (Yu-wound Skin No Abnormality Appearance) (Pt Warm) -Tenderness on Palpation (Yu-wound No Skin Appearance) -Ulcer Cleansing Rinsed/ Irrigated with Saline -Foul Odor after Cleansing No -Anesthetic Used WC - Nurse 2 - General Ulcer CM Notes Start: 11/13/23 08:55 Freq: Status: Active Protocol: Activity Type Activity Date Activity User E-sign Co-sign Detail Recorded Client Recorded Date Recorded By Document 11/13/23 09:04 BMF Desktop 11/13/23 09:07 BMF Document 11/20/23 09:29 DS Desktop 11/20/23 09:32 DS Document 11/27/23 09:30 BM [email or web address] 11/27/23 09:38 BMF Edit Result 11/27/23 09:30 BMF (1) [id number] 11/27/23 09:49 BMF Document 12/04/23 09:25 BM [id number] 12/04/23 09:33 BM (1) #4 Lateral Right Plantar Foot - Wound/Ulcer Outcome => Not Healed 11/13/23 11/20/23 11/27/23 09:04 09:29 09:30 Wound Center Nurse 2 #4 Lateral Right Plantar Foot -Time 09:34 -Correct Patient Yes -Correct Side, Site, Position Yes -Correct Procedure Yes -Procedure Performed Yes -Type of Procedure Debridement -Clinical Debridement Subcutaneous -Tissue Removed Subcutaneous -Post Debridement (cm) - Length 0.1 0.1 0.1 -Post Debridement (cm) - Width 0.1 0.1 0.1 -Post Debridement (cm) - Depth 0.1 0.1 0.1 -Total Square (Post) (cm) 0.01 0.01 0.01 -Area of Debridement (cm) - Length 0.1 0.1 0.1 -Area of Debridement (cm) - Width 0.1 0.1 0.1 -Total Square (Area) (cm) 0.01 0.01 0.01 -Tunneling No No -Undermining/Tunneling No No -Circular Undermining No No -Wound/Ulcer Outcome Not Healed Not Healed Not Healed -Ulcer Cleansing Rinsed/ Rinsed/ Irrigated with Irrigated with Saline Saline -Foul Odor after Cleansing No -Bioengineered Tissue No -Bleeding Controlled with NA NA Pressure -Treatment Response Procedure Tolerated Well -Offloading No Yes -Type of Offloading Other -Other Type of Offloading OFFLOADING inserts; also INSERTS waiting on custom thru foot/ankle center -Debridement - Subq, 1st 20sq cm Yes Pain Scale: 0-10 Numeric Is Patient Pain Free? Yes Yes Yes 12/04/23 09:25 Wound Center Nurse 2 #4 Lateral Right Plantar Foot -Time 09:27 -Correct Patient Yes -Correct Side, Site, Position Yes -Correct Procedure Yes -Procedure Performed Yes -Type of Procedure Debridement -Clinical Debridement Subcutaneous -Tissue Removed Subcutaneous -Post Debridement (cm) - Length 0.1 -Post Debridement (cm) - Width 0.1 -Post Debridement (cm) - Depth 0.1 -Total Square (Post) (cm) 0.01 -Area of Debridement (cm) - Length 0.1 -Area of Debridement (cm) - Width 0.1 -Total Square (Area) (cm) 0.01 -Tunneling No -Undermining/Tunneling No -Circular Undermining No -Wound/Ulcer Outcome Not Healed -Ulcer Cleansing Rinsed/ Irrigated with Saline -Foul Odor after Cleansing No -Bioengineered Tissue No -Bleeding Controlled with Pressure -Treatment Response Procedure Tolerated Well -Offloading -Type of Offloading -Other Type of Offloading -Debridement - Subq, 1st 20sq cm Yes Pain Scale: 0-10 Numeric Is Patient Pain Free? Yes - Nurse 3 - General Ulcer D/C NN Start: 11/13/23 08:55 Freq: Status: Active Protocol: Activity Type Activity Date Activity User E-sign Co-sign Detail Recorded Client Recorded Date Recorded By Document 11/13/23 09:07 [facility] Desktop 11/13/23 09:11 [facility] Document 11/27/23 09:47 [facility] [id number] 11/27/23 09:48 [facility] Document 12/04/23 09:38 DL [email or web address] 12/04/23 09:40 DL 11/13/23 11/27/23 12/04/23 09:07 09:47 09:38 Wound Care Center Nurse 3 #4 Lateral Right Plantar Foot -Ulcer Cleansing Rinsed/ Rinsed/ Irrigated with Irrigated with Saline Saline -Foul Odor after Cleansing No No -Primary Dressing Applied Mepilex Border Mepilex Border, Mepilex Border, Promogran Promogran Jessica Matter Jessica Matter -Primary Dressing Covered/Secured with Dry Gauze -Mepilex Border 1 1 1 -Promogran Jessica Matter 1 1 Treatment Response Procedure Procedure Procedure Tolerated Well Tolerated Well Tolerated Well Pain Scale: 0-10 Numeric Is Patient Pain Free? Yes Yes Yes - Visit Discharge Discharge Condition Stable Stable Stable Ambulatory Status Ambulatory Ambulatory Ambulatory Transportation Private Auto Private Auto Private Auto Assessment/Plan Assessment/Plan (1) Ulcer of right foot with fat layer exposed: CODE(S): L97.512 - Non-pressure chronic ulcer of other part of right foot with fat layer exposed (2) Type 1 diabetes mellitus with diabetic polyneuropathy: CODE(S): E10.42 - Type 1 diabetes mellitus with diabetic polyneuropathy (3) Diabetes mellitus with foot ulcer: CODE(S): E11.621 - Type 2 diabetes mellitus with foot ulcer; L97.509 - Non-pressure chronic ulcer of other part of unspecified foot with unspecified severity (4) Delayed wound healing: CODE(S): T14.8XXD - Other injury of unspecified body region, subsequent encounter PLAN: Plan Patient seen and evaluated He was instructed to utilize dry sterile dressings to pad and protect area as ulceration as he is nearly healed. Discussed his instructions on dressing changes thoroughly today. He voices understanding of what he is supposed to do in following instruction. Ulceration subfourth metatarsal head of the right foot did undergo debridement today. Ulceration measures 0.1 cm x 0.1 cm x 0.1 cm. Jessica applied with DSD. He has completed all 10 applications of EpiFix graft. Wound is improving with no maceration and continued epithelialization but pressure remains a consistent problem. Dry sterile dressing applied to the right foot to pad and protect area. He is instructed to change dressing daily. Offloading pad was placed about the subfourth metatarsal head of the right foot today. He does have hyperkeratosis sub 4th metatarsal head of the left foot with subdermal hemorrhaging. No signs of infection. Discussed continuing to pad and protect the area with a larger Band-Aid and offloading was also previously applied to his work boot for the left shoe. Plantar offloading padding was applied directly to the site on the left foot today as his work boot wear at home. Hyperkeratosis subfourth metatarsal head of the left foot did undergo sharp debridement with 313 blade today. This was performed without incident. Ulceration demonstrates reduction in size versus previous visit with continued epithealization across wound bed, however some macerated tissue is still present secondary to sweating of feet in steel toe shoe. He was previously given work note for time off to allow him to remain off of the wound site to allow healing at previous visit and this is aiding in his improvement for healing with continued reduction in ulcerative size versus previous visit. Recommended continued offloading in CAM boot/surgical shoe to the right foot with plantar offloading padding. Surgical shoe also offloaded so that he may wear this when getting up to go to the bathroom at night. Otherwise will remain in CAM boot with plantar offloading padding. Working again and wearing steel toe boots for work and thus needs continued offloading. Shoe insert was offloaded with a fourth metatarsal head cut out and plantar fifth metatarsal base cut out to reduce pressure at the sites in shoe gear. This was also performed for Left foot sub 4th metatarsal. Discussed once ulcer has healed he is to return to diabetic shoes with diabetic inserts. He is instructed to not pick at any calluses in future as this led to his ulceration. Discussed obtaining new diabetic shoe gear with new custom inserts. A comprehensive diabetic foot and ankle examination was performed 11/06/2023. Examination demonstrates diabetes mellitus type 1 with peripheral polyneuropathy, previous bilateral partial fifth metatarsal amputations, preulcerative callus subfourth metatarsal head of the left foot, ulceration subfourth metatarsal head right foot. I am recommending updating diabetic shoe gear with custom trilaminate diabetic inserts with a subfifth metatarsal base pocket and subfourth metatarsal head pocket for offloading of these prominent pressure sites of bilateral feet. Patient states he did get measured for diabetic shoes and is now awaiting order to arrive with his custom foot inserts for improved offloading. Discussed proper diabetic diet and tight glycemic control to continue to aid in healing of his ulceration. Discussed adequate protein intake to continue to aid in wound healing. Bhaskar supplementation also recommended to aid in wound healing. Last A1c 10/27/[address] Clement was 6.6%. Discussed continuing his proper diabetic diet to ensure good glycemic control. He does experience mendez phenomenon and they are working to achieve glycemic control. Discussed signs of infection today. He was instructed if he notices increasing redness about the ulcerative site that moves up onto the foot or up his leg, if he notices purulent drainage from the wound site, if he notices increasing foul odor from the wound, or if he develops fever greater than 101 degree, or nausea, or vomiting, or chills, that these are signs of a progressing infection and he should report to the ED to receive IV antibiotics. He voices understanding of this. The following work up and care recommendations were made: Dressing: Dry sterile dressing to pad and protect area. Change dressing daily Wash: Soap and water Tissue growth optimization: None Offload: Plantar offloading padding and CAM boot right foot Vascular: DP and PT pulses Palpable with adequate capillary fill time. Do not feel vascular status is impacting wound healing. Edema: No signs of pedal edema Infection: No signs of infection Pain: No pain secondary to diabetic peripheral polyneuropathy Host factors: DM type I with peripheral polyneuropathy, patient's himself as iatrogenic cause to ulcer, pressure I answered all the patient's questions. To return to the wound healing center in 1 week or call sooner if the patient has any questions or concerns.
[2023-12-11 09:23] VITALS: BP 119/70; PULSE 90; RESP 18; TEMP 35.9; BMI 35.9
--- NOTE | 2023-12-11 12:57 | PCM.WC.PN ---
History of Present Illness Date of Service: 12/11/23 Chief Complaint: right plantar foot ulcer and right leg ulcer History of Wound: This 38-year-old diabetic male presents to the wound healing center for a subfourth metatarsal ulceration of the right foot. 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 He states he tried to care for the ulceration for roughly 2 to 3 weeks in which it was not healing and presented to office. In office he did undergo debridement of the site continued offloading in cam boot however did not obtain his dressing supplies and was performing daily changes of wet to dry gauze. He was referred to the wound care center for applications of advanced wound care product. He states no pain secondary to diabetic peripheral polyneuropathy. He denies N/V/F/chills. He denies further complaints. Subjective Subjective This is a 38-year-old male who presents to the wound care center for follow-up of a plantar fourth metatarsal ulceration of the right foot. He is continued offloading site in surgical shoe with plantar offloading padding. 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 Currently awaiting diabetic shoe gear. He did obtain the recommended felt for continued offloading of his bilateral fourth metatarsal heads. He denies constitutional symptoms. Denies further complaints. Objective Data Objective Data Vital Signs: Vital Signs Temp Pulse Resp BP O2 Del Method 96.6 F L 90 18 119/70 Room Air 12/11/23 09:23 12/11/23 09:23 12/11/23 09:23 12/11/23 09:23 12/11/23 09:23 Oxygen Delivery Method Room Air Weight: 120.202 kg Body Mass Index (BMI) 35.9 Physical Exam Const alert, oriented x3 and no apparent distress General Appearance: cooperative HEENT normocephalic Eyes General Eye: normal appearance of both eyes Neck General: normal visual inspection Lymph Lymphatic: no lymphadenopathy noted and no lymphedema noted Resp normal respiratory effort Cardio regular rate and regular rhythm Extremity normal capillary refill, no calf tenderness and no pedal edema Extremity Narrative: Vascular: DP and PT pulses palpable right foot. Capillary fill time less than 4 seconds to digits right foot. No pedal edema is noted. Dermatological: Skin is mildly xerotic to the plantar aspect. There is a ulceration subfourth metatarsal head which has healed with epithealiziation but does have friable base consistent with early healing. No drainage. No erythema, no purulent drainage, no malodor, no palpable fluctuance/bogginess noted, no visible abscess formation, no lymphangitic streaking. Subfourth metatarsal head left foot demonstrates hyperkeratosis with subdermal hemorrhaging. Musculoskeletal: Muscle strength 5 of 5 age-appropriate. Partial fifth ray amputation is noted to the right foot. Decreased range of motion of the ankle joint in dorsiflexion with the knee extended without pain or crepitus. Decreased range of motion of the first metatarsophalangeal joint without pain or crepitus. Skin no rashes or lesions noted, skin turgor normal and no jaundice Neuro moves all extremities Debridement Note Debridement Note Wound debrided: Subfourth metatarsal head right foot Laterality: Right Wound Grade/Stage: Reynoso stage I Type of Debridement: Selective debridement Anesthesia Used: 5% Lidocaine Gel Depth: Down to and including healthy tissue Percentage of wound debrided: 100 Instrument Used: #15 blade Tissue Removed: Hyperkeratotic, subdermal hemorrhaging, nonviable tissue Severity: Limited To Skin Breakdown Amount of bleeding with debridement: None Patient tolerated procedure: Patient tolerated procedure well Post-Debridement Measurements and Additional Note: Post-Debridement Measurements/Treatment - Nurse 1 - General Ulcer Assessment Start: 11/13/23 08:55 Freq: Status: Active Protocol: [email or web address] Activity Type Activity Date Activity User E-sign Co-sign Detail Recorded Client Recorded Date Recorded By Document 11/13/23 08:55 DS Desktop 11/13/23 09:01 DS Document 11/20/23 09:15 ML Desktop 11/20/23 09:18 ML Document 11/27/23 09:14 ML 10.10.25.7 11/27/23 09:17 ML Document 12/04/23 09:26 RB wound cemter 12/04/23 09:28 RB Document 12/11/23 09:23 KW wound center 12/11/23 09:26 KW 11/13/23 11/20/23 11/27/23 08:55 09:15 09:14 - Today's Visit Information Type of service Follow-up Visit Follow-up Visit Follow-up Visit (Physician/GREEN CHAIN OFFBEARER (Physician/GREEN CHAIN OFFBEARER (Physician/GREEN CHAIN OFFBEARER ) ) ) Arrival Mode Ambulatory Ambulatory Ambulatory Transfer Assistance None None Patient Identification Verified (Name & Yes Yes Yes ) Patient Requires Transmission-Based No No Precautions Finger Stick Blood Sugar(mg/dl) (if 128 124 indicated): Blood Sugar Stated by Stated by Patient Patient Height and Weight Body Mass Index (BMI) 35.9 35.9 35.9 BMI Classification Obese Obese Obese Vital Signs Temperature (97.8 F-99.1 F) 97.7 F L 98.2 F 97.2 F L Temperature Source Temporal Temporal Temporal Pulse Rate (60-100) 87 87 Pulse Location Monitor Monitor Respiratory Rate (12-18) 12 15 Respiratory rate source Observation Observation Oxygen Delivery Method Blood Pressure (90/60-120/80) 123/69 H 130/86 H Blood Pressure Mean (mm Hg) 87 100 Source Monitor Monitor Position Sitting Sitting Blood Pressure Location Left Arm Left Arm History Since Last Visit- (Skip if this is Patient's initial visit) Have you changed medications since your No No No last visit? Any new allergies or adverse reactions No No No Had a fall/change in ADL's that may No No No increase risk of falls Signs or symptoms of abuse and/or No No No neglect since last visit Have you been in the hospital since your No No No last visit? Has dressing in place as prescribed No Yes Has compression in place as prescribed No Yes Has offloadiing in place as prescribed Yes N/A Experienced any changes in pain level or No No No management Left Footwear Surgical Shoe Regular Shoe Regular Shoe with pressure relief insole Right Footwear Regular Shoe Regular Shoe Regular Shoe Pain Scale: 0-10 Numeric Is Patient Pain Free? Yes Yes Yes 12/04/23 12/11/23 09:26 09:23 - Today's Visit Information Type of service Follow-up Visit Follow-up Visit (Physician/GREEN CHAIN OFFBEARER (Physician/GREEN CHAIN OFFBEARER ) ) Arrival Mode Ambulatory Ambulatory Transfer Assistance None Patient Identification Verified (Name & Yes Yes ) Patient Requires Transmission-Based No Precautions Finger Stick Blood Sugar(mg/dl) (if indicated): Blood Sugar Height and Weight Body Mass Index (BMI) 35.9 35.9 BMI Classification Obese Obese Vital Signs Temperature (97.8 F-99.1 F) 98.2 F 96.6 F L Temperature Source Temporal Temporal Pulse Rate (60-100) 90 90 Pulse Location Monitor Monitor Respiratory Rate (12-18) 18 18 Respiratory rate source Observation Observation Oxygen Delivery Method Room Air Blood Pressure (90/60-120/80) 129/76 H 119/70 Blood Pressure Mean (mm Hg) 93 86 Source Monitor Monitor Position Semi-Fowlers Semi-Fowlers Blood Pressure Location Left Arm Left Arm History Since Last Visit- (Skip if this is Patient's initial visit) Have you changed medications since your No No last visit? Any new allergies or adverse reactions No No Had a fall/change in ADL's that may No No increase risk of falls Signs or symptoms of abuse and/or No No neglect since last visit Have you been in the hospital since your No No last visit? Has dressing in place as prescribed Yes Yes Has compression in place as prescribed No Yes Has offloadiing in place as prescribed No N/A Experienced any changes in pain level or No No management Left Footwear Regular Shoe Regular Shoe Right Footwear Regular Shoe Regular Shoe Pain Scale: 0-10 Numeric Is Patient Pain Free? Yes Yes WC - Nurse 1 - General Ulcer Measurement Start: 11/13/23 08:55 Freq: Status: Active Protocol: Activity Type Activity Date Activity User E-sign Co-sign Detail Recorded Client Recorded Date Recorded By Document 11/13/23 08:55 DS Desktop 11/13/23 09:01 DS Document 11/20/23 09:15 ML Desktop 11/20/23 09:18 ML Document 11/27/23 09:14 ML [email or web address] 11/27/23 09:17 ML Document 12/04/23 09:26 RB wound cemter 12/04/23 09:28 RB Document 12/11/23 09:23 KW wound center 12/11/23 09:26 KW 11/13/23 11/20/23 11/27/23 08:55 09:15 09:14 Wound Center Nurse 1 #4 Lateral Right Plantar Foot -Combined with other wound No -Current Size (cm) - Length 0.1 0.1 -Current Size (cm) - Width 0.1 0.1 -Current Size (cm) - Depth 0.1 0.1 -Total Square Cm 0.01 0.01 -Tunneling No -Undermining/Tunneling No -Circular Undermining No -Exudate Amt None Present Medium Medium -Exudate Type Serosanguineous -Wound Margin -Granulation Amt None Present (0 Medium (34-66%) Medium (34-66%) %) -Granulation Quality -Slough/Fibrin -Necrosis Amt None Present (0 Small (1-33%) Medium (34-66%) %) -Necrotic Tissue Type -Structure Exposed -Texture (Yu-wound Skin Appearance) Assessed,Callus No Abnormality No Abnormality -Moisture (Yu-wound Skin Appearance) Assessed,Dry/ No Abnormality No Abnormality Scaly -Color (Yu-wound Skin Appearance) Assessed No Abnormality No Abnormality -Temperature (Yu-wound Skin No Abnormality No Abnormality No Abnormality Appearance) (Pt Warm) (Pt Warm) (Pt Warm) -Tenderness on Palpation (Yu-wound No No No Skin Appearance) -Ulcer Cleansing Rinsed/ Rinsed/ Rinsed/ Irrigated with Irrigated with Irrigated with Saline Saline Saline -Foul Odor after Cleansing No -Anesthetic Used 5% Lidocaine 5% Lidocaine Gel Gel 12/04/23 12/11/23 09:26 09:23 Wound Center Nurse 1 #4 Lateral Right Plantar Foot -Combined with other wound No -Current Size (cm) - Length 0.1 0.4 -Current Size (cm) - Width 0.1 0.6 -Current Size (cm) - Depth 0.1 0.2 -Total Square Cm 0.01 0.24 -Tunneling No -Undermining/Tunneling No -Circular Undermining No -Exudate Amt Medium Small -Exudate Type Serosanguineous Serosanguineous -Wound Margin Thickened Distinct, Outline Attached -Granulation Amt Medium (34-66%) Large (67-100%) -Granulation Quality Olancha Pale,Olancha -Slough/Fibrin Yes -Necrosis Amt Medium (34-66%) -Necrotic Tissue Type Adherent Slough -Structure Exposed N/A -Texture (Yu-wound Skin Appearance) Callus Assessed,Callus -Moisture (Yu-wound Skin Appearance) Assessed Maceration -Color (Yu-wound Skin Appearance) Assessed Assessed -Temperature (Yu-wound Skin No Abnormality No Abnormality Appearance) (Pt Warm) (Pt Warm) -Tenderness on Palpation (Yu-wound No No Skin Appearance) -Ulcer Cleansing Rinsed/ Rinsed/ Irrigated with Irrigated with Saline Saline -Foul Odor after Cleansing No No -Anesthetic Used 5% Lidocaine Gel WC - Nurse 2 - General Ulcer CM Notes Start: 11/13/23 08:55 Freq: Status: Active Protocol: Activity Type Activity Date Activity User E-sign Co-sign Detail Recorded Client Recorded Date Recorded By Document 11/13/23 09:04 BMF Desktop 11/13/23 09:07 BMF Document 11/20/23 09:29 DS Desktop 11/20/23 09:32 DS Document 11/27/23 09:30 BMF [email or web address] 11/27/23 09:38 BMF Edit Result 11/27/23 09:30 BMF (1) [id number] 11/27/23 09:49 BMF Document 12/04/23 09:25 BMF [id number] 12/04/23 09:33 BMF Document 12/11/23 09:49 BMF 12/11/23 09:56 BMF (1) #4 Lateral Right Plantar Foot - Wound/Ulcer Outcome => Not Healed 11/13/23 11/20/23 11/27/23 09:04 09:29 09:30 Wound Center Nurse 2 #4 Lateral Right Plantar Foot -Time 09:34 -Correct Patient Yes -Correct Side, Site, Position Yes -Correct Procedure Yes -Procedure Performed Yes -Type of Procedure Debridement -Clinical Debridement Subcutaneous -Tissue Removed Subcutaneous -Post Debridement (cm) - Length 0.1 0.1 0.1 -Post Debridement (cm) - Width 0.1 0.1 0.1 -Post Debridement (cm) - Depth 0.1 0.1 0.1 -Total Square (Post) (cm) 0.01 0.01 0.01 -Area of Debridement (cm) - Length 0.1 0.1 0.1 -Area of Debridement (cm) - Width 0.1 0.1 0.1 -Total Square (Area) (cm) 0.01 0.01 0.01 -Tunneling No No -Undermining/Tunneling No No -Circular Undermining No No -Wound/Ulcer Outcome Not Healed Not Healed Not Healed -Ulcer Cleansing Rinsed/ Rinsed/ Irrigated with Irrigated with Saline Saline -Foul Odor after Cleansing No -Bioengineered Tissue No -Bleeding Controlled with NA NA Pressure -Treatment Response Procedure Tolerated Well -Offloading No Yes -Type of Offloading Other -Other Type of Offloading OFFLOADING inserts; also INSERTS waiting on custom thru foot/ankle center -Debridement - Subq, 1st 20sq cm Yes -Wound Comment(s) Pain Scale: 0-10 Numeric Is Patient Pain Free? Yes Yes Yes 12/04/23 12/11/23 09:25 09:49 Wound Center Nurse 2 #4 Lateral Right Plantar Foot -Time 09:27 09:51 -Correct Patient Yes Yes -Correct Side, Site, Position Yes Yes -Correct Procedure Yes Yes -Procedure Performed Yes Yes -Type of Procedure Debridement Debridement -Clinical Debridement Subcutaneous Subcutaneous -Tissue Removed Subcutaneous -Post Debridement (cm) - Length 0.1 0.1 -Post Debridement (cm) - Width 0.1 0.1 -Post Debridement (cm) - Depth 0.1 0.1 -Total Square (Post) (cm) 0.01 0.01 -Area of Debridement (cm) - Length 0.1 0.1 -Area of Debridement (cm) - Width 0.1 0.1 -Total Square (Area) (cm) 0.01 0.01 -Tunneling No No -Undermining/Tunneling No No -Circular Undermining No No -Wound/Ulcer Outcome Not Healed Not Healed -Ulcer Cleansing Rinsed/ Rinsed/ Irrigated with Irrigated with Saline Saline -Foul Odor after Cleansing No No -Bioengineered Tissue No No -Bleeding Controlled with Pressure Pressure -Treatment Response Procedure Procedure Tolerated Well Tolerated Well -Offloading Yes -Type of Offloading Other -Other Type of Offloading waiting on custom inserts; has offloading pad in work boots -Debridement - Subq, 1st 20sq cm Yes Yes -Wound Comment(s) selective debridemt of callus Pain Scale: 0-10 Numeric Is Patient Pain Free? Yes Yes - Nurse 3 - General Ulcer D/C NN Start: 11/13/23 08:55 Freq: Status: Active Protocol: Activity Type Activity Date Activity User E-sign Co-sign Detail Recorded Client Recorded Date Recorded By Document 11/13/23 09:07 [facility] Desktop 11/13/23 09:11 [facility] Document 11/27/23 09:47 [facility] [id number] 11/27/23 09:48 [facility] Document 12/04/23 09:38 DL 10.10.25.7 12/04/23 09:40 DL Document 12/11/23 10:21 DL 10.10.25.7 12/11/23 10:24 DL 11/13/23 11/27/23 12/04/23 09:07 09:47 09:38 Wound Care Center Nurse 3 #4 Lateral Right Plantar Foot -Ulcer Cleansing Rinsed/ Rinsed/ Irrigated with Irrigated with Saline Saline -Foul Odor after Cleansing No No -Primary Dressing Applied Mepilex Border Mepilex Border, Mepilex Border, Promogran Promogran Jessica Matter Jessica Matter -Other Dressing -Primary Dressing Covered/Secured with Dry Gauze -Mepilex Border 1 1 1 -Promogran Jessica Matter 1 1 Treatment Response Procedure Procedure Procedure Tolerated Well Tolerated Well Tolerated Well Pain Scale: 0-10 Numeric Is Patient Pain Free? Yes Yes Yes WC - Visit Discharge Discharge Condition Stable Stable Stable Ambulatory Status Ambulatory Ambulatory Ambulatory Transportation Private Auto Private Auto Private Auto 12/11/23 10:21 Wound Care Center Nurse 3 #4 Lateral Right Plantar Foot -Ulcer Cleansing Rinsed/ Irrigated with Saline -Foul Odor after Cleansing No -Primary Dressing Applied Mepilex Border -Other Dressing Foam padding -Primary Dressing Covered/Secured with -Mepilex Border 1 -Promogran Jessica Matter Treatment Response Procedure Tolerated Well Pain Scale: 0-10 Numeric Is Patient Pain Free? Yes WC - Visit Discharge Discharge Condition Stable Ambulatory Status Ambulatory Transportation Private Auto Additional Wound Wound debrided: Subfourth metatarsal head left foot Laterality: Left Wound Grade/Stage: Reynoso stage I Type of Debridement: Selective debridement Depth: Down to and including healthy tissue Percentage of wound debrided: 100 Instrument Used: #15 blade Tissue Removed: Hyperkeratotic, subdermal hemorrhaging, nonviable tissue Severity: Limited To Skin Breakdown Amount of bleeding with debridement: None Patient tolerated procedure: Patient tolerated procedure well Assessment/Plan Assessment/Plan (1) Ulcer of right foot with fat layer exposed: CODE(S): L97.512 - Non-pressure chronic ulcer of other part of right foot with fat layer exposed (2) Type 1 diabetes mellitus with diabetic polyneuropathy: CODE(S): E10.42 - Type 1 diabetes mellitus with diabetic polyneuropathy (3) Diabetes mellitus with foot ulcer: CODE(S): E11.621 - Type 2 diabetes mellitus with foot ulcer; L97.509 - Non-pressure chronic ulcer of other part of unspecified foot with unspecified severity (4) Delayed wound healing: CODE(S): T14.8XXD - Other injury of unspecified body region, subsequent encounter PLAN: Plan Patient seen and evaluated He was instructed to utilize dry sterile dressings to pad and protect area as ulceration as he is nearly healed. Discussed his instructions on dressing changes thoroughly today. He voices understanding of what he is supposed to do in following instruction. Ulceration subfourth metatarsal head of the right foot did undergo debridement today as noted in clinical panel above. Ulceration measures 0.1 cm x 0.1 cm x 0.1 cm. Jessica applied with DSD. He has completed all 10 applications of EpiFix graft. Wound is improving with no maceration and continued epithelialization but pressure remains a consistent problem. Dry sterile dressing applied to the right foot to pad and protect area. He is instructed to change dressing daily. Offloading pad was placed about the subfourth metatarsal head of the right foot today. He does have hyperkeratosis sub 4th metatarsal head of the left foot with subdermal hemorrhaging. No signs of infection. Discussed continuing to pad and protect the area with a larger Band-Aid and offloading was also previously applied to his work boot for the left shoe. Plantar offloading padding was applied directly to the site on the left foot today as his work boot wear at home. Hyperkeratosis subfourth metatarsal head of the left foot did undergo sharp debridement with#15 blade today. This was performed without incident. Ulceration demonstrates reduction in size versus previous visit with continued epithealization across wound bed, however some macerated tissue is still present secondary to sweating of feet in steel toe shoe. He was previously given work note for time off to allow him to remain off of the wound site to allow healing at previous visit and this is aiding in his improvement for healing with continued reduction in ulcerative size versus previous visit. Recommended continued offloading in CAM boot/surgical shoe to the right foot with plantar offloading padding. Surgical shoe also offloaded so that he may wear this when getting up to go to the bathroom at night. Otherwise will remain in CAM boot with plantar offloading padding. Working again and wearing steel toe boots for work and thus needs continued offloading. Shoe insert was offloaded with a fourth metatarsal head cut out and plantar fifth metatarsal base cut out to reduce pressure at the sites in shoe gear. This was also performed for Left foot sub 4th metatarsal. Discussed once ulcer has healed he is to return to diabetic shoes with diabetic inserts. He is instructed to not pick at any calluses in future as this led to his ulceration. Discussed obtaining new diabetic shoe gear with new custom inserts. A comprehensive diabetic foot and ankle examination was performed 11/06/2023. Examination demonstrates diabetes mellitus type 1 with peripheral polyneuropathy, previous bilateral partial fifth metatarsal amputations, preulcerative callus subfourth metatarsal head of the left foot, ulceration subfourth metatarsal head right foot. I am recommending updating diabetic shoe gear with custom trilaminate diabetic inserts with a subfifth metatarsal base pocket and subfourth metatarsal head pocket for offloading of these prominent pressure sites of bilateral feet. Patient states he did get measured for diabetic shoes and is now awaiting order to arrive with his custom foot inserts for improved offloading. Discussed proper diabetic diet and tight glycemic control to continue to aid in healing of his ulceration. Discussed adequate protein intake to continue to aid in wound healing. Bhaskar supplementation also recommended to aid in wound healing. Last A1c 10/27/[address] Clement was 6.6%. Discussed continuing his proper diabetic diet to ensure good glycemic control. He does experience mendez phenomenon and they are working to achieve glycemic control. Discussed signs of infection today. He was instructed if he notices increasing redness about the ulcerative site that moves up onto the foot or up his leg, if he notices purulent drainage from the wound site, if he notices increasing foul odor from the wound, or if he develops fever greater than 101 degree, or nausea, or vomiting, or chills, that these are signs of a progressing infection and he should report to the ED to receive IV antibiotics. He voices understanding of this. The following work up and care recommendations were made: Dressing: Dry sterile dressing to pad and protect area. Change dressing daily Wash: Soap and water Tissue growth optimization: None Offload: Plantar offloading padding and CAM boot right foot Vascular: DP and PT pulses Palpable with adequate capillary fill time. Do not feel vascular status is impacting wound healing. Edema: No signs of pedal edema Infection: No signs of infection Pain: No pain secondary to diabetic peripheral polyneuropathy Host factors: DM type I with peripheral polyneuropathy, patient's himself as iatrogenic cause to ulcer, pressure I answered all the patient's questions. To return to the wound healing center in 1 week or call sooner if the patient has any questions or concerns.
== END 2023-12-12 23:59 | disposition home or self-care (01) ==
LOC: WC 09:15
PROVIDERS: PCP Internal Medicine; Referring Provider Student in an Organized Health Care Education/Training Program; Visit Provider Student in an Organized Health Care Education/Training Program
DX: E10.621 Type 1 diabetes mellitus with foot ulcer (principal); E10.622 Type 1 diabetes mellitus with other skin ulcer; L97.512 Non-pressure chronic ulcer of other part of right foot with fat layer exposed; L97.511 Non-pressure chronic ulcer of other part of right foot limited to breakdown of skin; E10.42 Type 1 diabetes mellitus with diabetic polyneuropathy; Z89.421 Acquired absence of other right toe(s)
CPT/HCPCS: 11042; 97597; 99213; G0463

== ENCOUNTER 2024-01-08 09:15 | Outpatient (RCR) | payer MEDICAID, SELFPAY ==
[2023-12-13 01:54] VITALS: BP 138/75; PULSE 101; RESP 18; TEMP 36.4; BMI 35.9
[2023-12-18 09:08] VITALS: BP 122/70; PULSE 90; RESP 20; TEMP 36.6; BMI 35.9
--- NOTE | 2023-12-18 18:40 | PN.PCM_ITS ---
History of Present Illness Date of Service: 12/18/23 Chief Complaint: right plantar foot ulcer and right leg ulcer History of Wound: This 38-year-old diabetic male presents to the wound healing center for a subfourth metatarsal ulceration of the right foot. 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 He states he tried to care for the ulceration for roughly 2 to 3 weeks in which it was not healing and presented to office. In office he did undergo debridement of the site continued offloading in cam boot however did not obtain his dressing supplies and was performing daily changes of wet to dry gauze. He was referred to the wound care center for applications of advanced wound care product. He states no pain secondary to diabetic peripheral polyneuropathy. He denies N/V/F/chills. He denies further complaints. Subjective Subjective This is a 38-year-old male who presents to the wound care center for follow-up of a plantar fourth metatarsal ulceration of the right foot. He has returned to his work boots and sneakers and offloading about wound sites with the felt offloading pads. States that he believes he has opened multiple new wounds to the right foot as he works long hours on his feet and steel toe boots. States he is awaiting diabetic shoe gear with the offloading inserts. I informed him his shoe gear has been ready and multiple attempts were made to call him to take tissues up. Discussed the go straight to the office today for dispense of his shoes following this appointment. He denies constitutional symptoms. Denies further complaints. Objective Data Objective Data Vital Signs: Vital Signs Temp Pulse Resp BP 97.8 F 90 20 H 122/70 H 12/18/23 09:08 12/18/23 09:08 12/18/23 09:08 12/18/23 09:08 Weight: 120.202 kg Body Mass Index (BMI) 35.9 Physical Exam Const alert, oriented x3 and no apparent distress General Appearance: cooperative HEENT normocephalic Eyes General Eye: normal appearance of both eyes Neck General: normal visual inspection Lymph Lymphatic: no lymphadenopathy noted and no lymphedema noted Resp normal respiratory effort Cardio regular rate and regular rhythm Extremity normal capillary refill, no joint enlargement, no calf tenderness and no pedal edema Extremity Narrative: Vascular: DP and PT pulses palpable right foot. Capillary fill time less than 4 seconds to digits right foot. No pedal edema is noted. Dermatological: Skin is mildly xerotic to the plantar aspect. There is a ulceration subfourth metatarsal head which has reopened with serosanguineous drainage and surrounding macerated skin. There is also new skin fissure subfourth digit of the right foot and dorsal and plantar second digit of the right foot. No signs of infection. No erythema, no purulent drainage, no malodor, no palpable fluctuance/bogginess noted, no visible abscess formation, no lymphangitic streaking. Subfourth metatarsal head left foot demonstrates hyperkeratosis with subdermal hemorrhaging. Neurologic: Decreased protective sensation bilateral foot secondary to diabetic peripheral polyneuropathy. Musculoskeletal: Muscle strength 5 of 5 age-appropriate. Partial fifth ray amputation is noted to the right foot. Decreased range of motion of the ankle joint in dorsiflexion with the knee extended without pain or crepitus. Decreased range of motion of the first metatarsophalangeal joint without pain or crepitus. Skin no rashes or lesions noted, skin turgor normal and no jaundice Neuro moves all extremities Debridement Note Debridement Note Wound debrided: Subfourth metatarsal head right foot Laterality: Right Wound Grade/Stage: Reynoso stage I Type of Debridement: Excisional debridement Anesthesia Used: 5% Lidocaine Gel Depth: Down to and including healthy tissue and in the subcutaneous layer Percentage of wound debrided: 100 Instrument Used: - (313 blade) Tissue Removed: Fibrous, devitalized subcutaneous, biofilm, slough Severity: Fat Layer Exposed Amount of bleeding with debridement: Mild Bleeding Controlled with: Compression and gauze Patient tolerated procedure: Patient tolerated procedure well Post-Debridement Measurements and Additional Note: Post-Debridement Measurements/Treatment RENETTA - Nurse 1 - General Ulcer Assessment Start: 12/18/23 09:08 Freq: Status: Active Protocol: LORI Activity Type Activity Date Activity User E-sign Co-sign Detail Recorded Client Recorded Date Recorded By Document 12/18/23 09:08 DL [email or web address] 12/18/23 09:22 DL 12/18/23 09:08 RENETTA - Today's Visit Information Type of service 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 ) Arrival Mode Ambulatory Transfer Assistance None Patient Identification Verified (Name & Yes ) Patient Requires Transmission-Based No Precautions Height and Weight Body Mass Index (BMI) 35.9 BMI Classification Obese Vital Signs Temperature (97.8 F-99.1 F) 97.8 F Temperature Source Temporal Pulse Rate (60-100) 90 Pulse Location Monitor Respiratory Rate (12-18) 20 H Respiratory rate source Observation Blood Pressure (90/60-120/80) 122/70 H Blood Pressure Mean (mm Hg) 87 Source Monitor History Since Last Visit- (Skip if this is Patient's initial visit) Have you changed medications since your No last visit? Any new allergies or adverse reactions No Had a fall/change in ADL's that may No increase risk of falls Signs or symptoms of abuse and/or No neglect since last visit Have you been in the hospital since your No last visit? Has dressing in place as prescribed Yes Has compression in place as prescribed Yes Has offloadiing in place as prescribed Yes Experienced any changes in pain level or No management Pain Scale: 0-10 Numeric Is Patient Pain Free? Yes WC - Nurse 1 - General Ulcer Measurement Start: 12/18/23 09:08 Freq: Status: Active Protocol: Activity Type Activity Date Activity User E-sign Co-sign Detail Recorded Client Recorded Date Recorded By Document 12/18/23 09:08 DL [email or web address] 12/18/23 09:22 DL 12/18/23 09:08 Wound Center Nurse 1 #7 R 2nd toe plantar -Current Size (cm) - Length 1 -Current Size (cm) - Width 1 -Current Size (cm) - Depth 0.1 -Total Square Cm 1 -Photo Taken Yes -Exudate Amt Medium -Exudate Type Serosanguineous -Wound Margin Distinct, Outline Attached -Granulation Amt Large (67-100%) -Granulation Quality Red -Necrosis Amt None Present (0 %) -Structure Exposed N/A -Texture (Yu-wound Skin Appearance) Localized Edema ,Scarring -Moisture (Yu-wound Skin Appearance) No Abnormality -Color (Yu-wound Skin Appearance) Erythema -Temperature (Yu-wound Skin No Abnormality Appearance) (Pt Warm) -Tenderness on Palpation (Yu-wound No Skin Appearance) -Ulcer Cleansing Soap and Water -Foul Odor after Cleansing No -Anesthetic Used 5% Lidocaine Gel #6 R 2nd toe dorsal -Current Size (cm) - Length 1.2 -Current Size (cm) - Width 1.3 -Current Size (cm) - Depth 0.1 -Total Square Cm 1.56 -Photo Taken Yes -Exudate Amt Small -Exudate Type Serosanguineous -Wound Margin Distinct, Outline Attached -Granulation Amt Large (67-100%) -Granulation Quality Red -Necrosis Amt None Present (0 %) -Structure Exposed N/A -Texture (Yu-wound Skin Appearance) Scarring -Moisture (Yu-wound Skin Appearance) No Abnormality -Color (Yu-wound Skin Appearance) Erythema -Temperature (Yu-wound Skin No Abnormality Appearance) (Pt Warm) -Ulcer Cleansing Soap and Water -Foul Odor after Cleansing No -Anesthetic Used 5% Lidocaine Gel #4 Lateral Right Plantar Foot -Current Size (cm) - Length 1 -Current Size (cm) - Width 0.5 -Current Size (cm) - Depth 0.2 -Total Square Cm 0.5 -Photo Taken Yes -Exudate Amt Medium -Exudate Type Serosanguineous -Wound Margin Thickened -Granulation Amt Small (1-33%) -Granulation Quality [place] -Necrosis Amt Small (1-33%) -Necrotic Tissue Type Adherent Slough -Structure Exposed N/A -Texture (Yu-wound Skin Appearance) Callus -Moisture (Yu-wound Skin Appearance) Dry/Scaly -Color (Yu-wound Skin Appearance) No Abnormality -Temperature (Yu-wound Skin No Abnormality Appearance) (Pt Warm) -Tenderness on Palpation (Yu-wound No Skin Appearance) -Ulcer Cleansing Soap and Water -Foul Odor after Cleansing No -Anesthetic Used 5% Lidocaine Gel WC - Nurse 2 - General Ulcer CM Notes Start: 12/18/23 09:08 Freq: Status: Active Protocol: Activity Type Activity Date Activity User E-sign Co-sign Detail Recorded Client Recorded Date Recorded By Document 12/18/23 09:40 [facility] 12/18/23 09:57 [facility] 12/18/23 09:40 Wound Center Nurse 2 #7 R 2nd toe plantar -Post Debridement (cm) - Length 1 -Post Debridement (cm) - Width 1 -Post Debridement (cm) - Depth 0.1 -Total Square (Post) (cm) 1 -Area of Debridement (cm) - Length 1 -Area of Debridement (cm) - Width 1 -Total Square (Area) (cm) 1 -Tunneling No -Undermining/Tunneling No -Wound/Ulcer Outcome Not Healed -Ulcer Cleansing Rinsed/ Irrigated with Saline -Foul Odor after Cleansing No -Bioengineered Tissue No -Bleeding Controlled with NA #6 R 2nd toe dorsal -Post Debridement (cm) - Length 1.2 -Post Debridement (cm) - Width 1.3 -Post Debridement (cm) - Depth 0.1 -Total Square (Post) (cm) 1.56 -Area of Debridement (cm) - Length 1.2 -Area of Debridement (cm) - Width 1.3 -Total Square (Area) (cm) 1.56 -Tunneling No -Undermining/Tunneling No -Bleeding Controlled with NA #4 Lateral Right Plantar Foot -Time 09:45 -Correct Patient Yes -Correct Side, Site, Position Yes -Correct Procedure Yes -Procedure Performed Yes -Type of Procedure Debridement -Clinical Debridement Subcutaneous -Tissue Removed Subcutaneous -Post Debridement (cm) - Length 2.2 -Post Debridement (cm) - Width 2 -Post Debridement (cm) - Depth 0.1 -Total Square (Post) (cm) 4.4 -Area of Debridement (cm) - Length 2.2 -Area of Debridement (cm) - Width 2 -Total Square (Area) (cm) 4.4 -Tunneling No -Undermining/Tunneling No -Circular Undermining No -Wound/Ulcer Outcome Not Healed -Ulcer Cleansing Rinsed/ Irrigated with Saline -Foul Odor after Cleansing No -Bioengineered Tissue No -Bleeding Controlled with Pressure -Treatment Response Procedure Tolerated Well -Offloading Yes -Type of Offloading Other -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 Yes WC - Nurse 3 - General Ulcer D/C NN Start: 12/18/23 09:08 Freq: Status: Active Protocol: Activity Type Activity Date Activity User E-sign Co-sign Detail Recorded Client Recorded Date Recorded By Document 12/18/23 10:09 [facility] wound center 12/18/23 10:10 [facility] 12/18/23 10:09 Wound Care Center Nurse 3 #7 R 2nd toe plantar -Other Dressing triple antibiotic ointment -Primary Dressing Covered/Secured with Dry Gauze, Secured with Tape #6 R 2nd toe dorsal -Other Dressing triple ATB ointment -Primary Dressing Covered/Secured with Dry Gauze, Secured with Tape #4 Lateral Right Plantar Foot -Primary Dressing Applied Mepilex Border, Promogran Jessica Matter -Mepilex Border 1 -Promogran Jessica Matter 1 Treatment Response Procedure Tolerated Well Pain Scale: 0-10 Numeric Is Patient Pain Free? Yes WC - Visit Discharge Discharge Condition Stable Ambulatory Status Ambulatory Transportation Private Auto Medication Reconcilliation completed & No provided to patient/care provider Clinical Summary of Care Provided Yes Assessment/Plan Assessment/Plan (1) Ulcer of right foot with fat layer exposed: CODE(S): L97.512 - Non-pressure chronic ulcer of other part of right foot with fat layer exposed (2) Type 1 diabetes mellitus with diabetic polyneuropathy: CODE(S): E10.42 - Type 1 diabetes mellitus with diabetic polyneuropathy (3) Diabetes mellitus with foot ulcer: CODE(S): E11.621 - Type 2 diabetes mellitus with foot ulcer; L97.509 - Non-pressure chronic ulcer of other part of unspecified foot with unspecified severity (4) Delayed wound healing: CODE(S): T14.8XXD - Other injury of unspecified body region, subsequent encounter (5) Obesity: CODE(S): E66.9 - Obesity, unspecified QUALIFIERS: Obesity type: due to excess calories Obesity classification: adult class 1 (BMI 30 - 34.9) Serious obesity comorbidity presence: with serious comorbidity Body mass index: BMI 34.0-34.9 Qualified Code(s): E66.09 - Other obesity due to excess calories; Z68.34 - Body mass index [BMI] 34.0-34.9, adult PLAN: Plan Patient seen and evaluated He reports reopening subfourth metatarsal ulceration of the right foot with an additional 3 ulcerations that are new to the right foot. He has new stable ulceration subfourth digit measuring 0.1 cm x 0.1 cm x 0.1 cm. No signs of infection. Second and third new stable ulcerations to the dorsal aspect of the second digit and plantar aspect of the second digit measuring 1.2 cm x 1.3 cm x 0.1 cm and 1.0 cm x 1.0 cm x 0.1 cm respectively. No signs of infection Ulceration subfourth metatarsal head of the right foot did undergo debridement today as noted in clinical panel above. Ulceration measures 2.2 cm x 2.0 cm x 0.1 cm. Jessica applied with DSD. He has completed all 10 applications of EpiFix graft. Wound is improving with no maceration and continued epithelialization but pressure remains a consistent problem. Dry sterile dressing applied to the right foot to pad and protect area. He is instructed to change dressing daily. Offloading pad was placed about the subfourth metatarsal head of the right foot today. He does have hyperkeratosis sub 4th metatarsal head of the left foot with subdermal hemorrhaging. No signs of infection. Discussed continuing to pad and protect the area with a larger Band-Aid and offloading was also previously applied to his work boot for the left shoe. Plantar offloading padding was applied directly to the site on the left foot today as his work boot wear at home. Hyperkeratosis subfourth metatarsal head of the left foot did undergo sharp debridement with#313 blade today. This was performed without incident. Ulceration demonstrates increased in size versus previous visit. Recommended continued offloading in CAM boot/surgical shoe to the right foot with plantar offloading padding. Surgical shoe also offloaded so that he may wear this when getting up to go to the bathroom at night. Otherwise will remain in CAM boot with plantar offloading padding. Working again and wearing steel toe boots for work and thus needs continued offloading. Shoe insert was previously offloaded with a fourth metatarsal head cut out and plantar fifth metatarsal base cut out to reduce pressure at the sites in shoe gear. This was also performed for Left foot sub 4th metatarsal. Discussed once ulcer has healed he is to return to diabetic shoes with diabetic inserts. He is instructed to not pick at any calluses in future as this led to his ulceration. Discussed obtaining new diabetic shoe gear with new custom inserts. A comprehensive diabetic foot and ankle examination was performed 11/06/2023. Examination demonstrates diabetes mellitus type 1 with peripheral polyneuropathy, previous bilateral partial fifth metatarsal amputations, preulcerative callus subfourth metatarsal head of the left foot, ulceration subfourth metatarsal head right foot. I am recommending updating diabetic shoe gear with custom trilaminate diabetic inserts with a subfifth metatarsal base pocket and subfourth metatarsal head pocket for offloading of these prominent pressure sites of bilateral feet. Patient states he did get measured for diabetic shoes and I have informed him that shoes are in the office. He did go to the office today 12/18/2023 to picker / packer the diabetic shoes with offloading inserts. He also ordered an additional set of work boots through [employer] with additional custom inserts for offloading. Patient states he will pay for these [id number] for these additional shoes and inserts. Discussed proper diabetic diet and tight glycemic control to continue to aid in healing of his ulceration. Discussed adequate protein intake to continue to aid in wound healing. Bhaskar supplementation also recommended to aid in wound healing. Last A1c 10/27/[address] Clement was 6.6%. Discussed continuing his proper diabetic diet to ensure good glycemic control. He does experience mendez phenomenon and they are working to achieve glycemic control. Discussed signs of infection today. He was instructed if he notices increasing redness about the ulcerative site that moves up onto the foot or up his leg, if he notices purulent drainage from the wound site, if he notices increasing foul odor from the wound, or if he develops fever greater than 101 degree, or nausea, or vomiting, or chills, that these are signs of a progressing infection and he should report to the ED to receive IV antibiotics. He voices understanding of this. The following work up and care recommendations were made: Dressing: Jessica, dry sterile dressing. Change dressing daily to subfourth metatarsal site Wash: Soap and water Tissue growth optimization: Jessica Offload: Plantar offloading padding and CAM boot right foot. Diabetic shoe gear with custom offloading inserts when not wearing CAM boot. Vascular: DP and PT pulses Palpable with adequate capillary fill time. Do not feel vascular status is impacting wound healing. Edema: No signs of pedal edema Infection: No signs of infection Pain: No pain secondary to diabetic peripheral polyneuropathy Host factors: DM type I with peripheral polyneuropathy, patient's himself as iatrogenic cause to ulcer, pressure I answered all the patient's questions. To return to the wound healing center in 1 week or call sooner if the patient has any questions or concerns.
[2023-12-25 09:13] VITALS: BP 109/74; PULSE 90; RESP 18; TEMP 36.8; BMI 35.9
--- NOTE | 2023-12-25 09:25 | PCM.WC.PN ---
History of Present Illness Date of Service: 12/25/23 Chief Complaint: right plantar foot ulcer and right leg ulcer History of Wound: This 38-year-old diabetic male presents to the wound healing center for a subfourth metatarsal ulceration of the right foot. 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 He states he tried to care for the ulceration for roughly 2 to 3 weeks in which it was not healing and presented to office. In office he did undergo debridement of the site continued offloading in cam boot however did not obtain his dressing supplies and was performing daily changes of wet to dry gauze. He was referred to the wound care center for applications of advanced wound care product. He states no pain secondary to diabetic peripheral polyneuropathy. He denies N/V/F/chills. He denies further complaints. Subjective Subjective This is a 38-year-old male who presents to the wound care center for follow-up of a plantar fourth metatarsal ulceration of the right foot. He has returned to his work boots and sneakers and offloading about wound sites with the felt offloading pads. He did reopen multiple wounds last week. 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 Continues to change dressings daily. He denies constitutional symptoms. Denies further complaints. Objective Data Objective Data Vital Signs: Vital Signs Temp Pulse Resp BP 97.8 F 90 20 H 122/70 H 12/18/23 09:08 12/18/23 09:08 12/18/23 09:08 12/18/23 09:08 Weight: 120.202 kg Body Mass Index (BMI) 35.9 Physical Exam Const alert, oriented x3 and no apparent distress General Appearance: cooperative HEENT normocephalic Eyes General Eye: normal appearance of both eyes Neck General: normal visual inspection Lymph Lymphatic: no lymphadenopathy noted and no lymphedema noted Resp normal respiratory effort Cardio regular rate and regular rhythm Extremity normal capillary refill, no joint enlargement, no calf tenderness and no pedal edema Extremity Narrative: Vascular: DP and PT pulses palpable right foot. Capillary fill time less than 4 seconds to digits right foot. No pedal edema is noted. Dermatological: Skin is mildly xerotic to the plantar aspect. There is a ulceration subfourth metatarsal head reopened last week with serosanguineous drainage and surrounding macerated skin, but there is noted improvement today due to new offloading inserts and the wound is epithelialized. Skin fissure subfourth digit of the right foot has healed. Dorsal and plantar second digit fissures improving to the right foot. No signs of infection. No erythema, no purulent drainage, no malodor, no palpable fluctuance/bogginess noted, no visible abscess formation, no lymphangitic streaking. Subfourth metatarsal head left foot demonstrates hyperkeratosis with subdermal hemorrhaging, but improving with offloading insert. Neurologic: Decreased protective sensation bilateral foot secondary to diabetic peripheral polyneuropathy. Musculoskeletal: Muscle strength 5 of 5 age-appropriate. Partial fifth ray amputation is noted to the right foot. Decreased range of motion of the ankle joint in dorsiflexion with the knee extended without pain or crepitus. Decreased range of motion of the first metatarsophalangeal joint without pain or crepitus. Skin no rashes or lesions noted, skin turgor normal and no jaundice Neuro moves all extremities Debridement Note Debridement Note Wound debrided: Right foot x 2 Laterality: Right Wound Grade/Stage: Reynoso stage I Type of Debridement: Excisional debridement Anesthesia Used: 5% Lidocaine Gel Depth: Down to and including healthy tissue and in the subcutaneous layer Percentage of wound debrided: 100 Instrument Used: #15 blade Tissue Removed: Fibrous, devitalized subcutaneous, biofilm, slough Severity: Fat Layer Exposed Amount of bleeding with debridement: Mild Bleeding Controlled with: Compression and gauze Patient tolerated procedure: Patient tolerated procedure well Post-Debridement Measurements and Additional Note: Post-Debridement Measurements/Treatment - Nurse 1 - General Ulcer Assessment Start: 12/18/23 09:08 Freq: Status: Active Protocol: [email or web address] Activity Type Activity Date Activity User E-sign Co-sign Detail Recorded Client Recorded Date Recorded By Document 12/18/23 09:08 DL [email or web address] 12/18/23 09:22 DL 12/18/23 09:08 - Today's Visit Information Type of service 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 ) Arrival Mode Ambulatory Transfer Assistance None Patient Identification Verified (Name & Yes ) Patient Requires Transmission-Based No Precautions Height and Weight Body Mass Index (BMI) 35.9 BMI Classification Obese Vital Signs Temperature (97.8 F-99.1 F) 97.8 F Temperature Source Temporal Pulse Rate (60-100) 90 Pulse Location Monitor Respiratory Rate (12-18) 20 H Respiratory rate source Observation Blood Pressure (90/60-120/80) 122/70 H Blood Pressure Mean (mm Hg) 87 Source Monitor History Since Last Visit- (Skip if this is Patient's initial visit) Have you changed medications since your No last visit? Any new allergies or adverse reactions No Had a fall/change in ADL's that may No increase risk of falls Signs or symptoms of abuse and/or No neglect since last visit Have you been in the hospital since your No last visit? Has dressing in place as prescribed Yes Has compression in place as prescribed Yes Has offloadiing in place as prescribed Yes Experienced any changes in pain level or No management Pain Scale: 0-10 Numeric Is Patient Pain Free? Yes WC - Nurse 1 - General Ulcer Measurement Start: 12/18/23 09:08 Freq: Status: Active Protocol: Activity Type Activity Date Activity User E-sign Co-sign Detail Recorded Client Recorded Date Recorded By Document 12/18/23 09:08 DL [email or web address] 12/18/23 09:22 DL 12/18/23 09:08 Wound Center Nurse 1 #7 R 2nd toe plantar -Current Size (cm) - Length 1 -Current Size (cm) - Width 1 -Current Size (cm) - Depth 0.1 -Total Square Cm 1 -Photo Taken Yes -Exudate Amt Medium -Exudate Type Serosanguineous -Wound Margin Distinct, Outline Attached -Granulation Amt Large (67-100%) -Granulation Quality Red -Necrosis Amt None Present (0 %) -Structure Exposed N/A -Texture (Yu-wound Skin Appearance) Localized Edema ,Scarring -Moisture (Yu-wound Skin Appearance) No Abnormality -Color (Yu-wound Skin Appearance) Erythema -Temperature (Yu-wound Skin No Abnormality Appearance) (Pt Warm) -Tenderness on Palpation (Yu-wound No Skin Appearance) -Ulcer Cleansing Soap and Water -Foul Odor after Cleansing No -Anesthetic Used 5% Lidocaine Gel #6 R 2nd toe dorsal -Current Size (cm) - Length 1.2 -Current Size (cm) - Width 1.3 -Current Size (cm) - Depth 0.1 -Total Square Cm 1.56 -Photo Taken Yes -Exudate Amt Small -Exudate Type Serosanguineous -Wound Margin Distinct, Outline Attached -Granulation Amt Large (67-100%) -Granulation Quality Red -Necrosis Amt None Present (0 %) -Structure Exposed N/A -Texture (Yu-wound Skin Appearance) Scarring -Moisture (Yu-wound Skin Appearance) No Abnormality -Color (Yu-wound Skin Appearance) Erythema -Temperature (Yu-wound Skin No Abnormality Appearance) (Pt Warm) -Ulcer Cleansing Soap and Water -Foul Odor after Cleansing No -Anesthetic Used 5% Lidocaine Gel #4 Lateral Right Plantar Foot -Current Size (cm) - Length 1 -Current Size (cm) - Width 0.5 -Current Size (cm) - Depth 0.2 -Total Square Cm 0.5 -Photo Taken Yes -Exudate Amt Medium -Exudate Type Serosanguineous -Wound Margin Thickened -Granulation Amt Small (1-33%) -Granulation Quality Coulter -Necrosis Amt Small (1-33%) -Necrotic Tissue Type Adherent Slough -Structure Exposed N/A -Texture (Yu-wound Skin Appearance) Callus -Moisture (Yu-wound Skin Appearance) Dry/Scaly -Color (Yu-wound Skin Appearance) No Abnormality -Temperature (Yu-wound Skin No Abnormality Appearance) (Pt Warm) -Tenderness on Palpation (Yu-wound No Skin Appearance) -Ulcer Cleansing Soap and Water -Foul Odor after Cleansing No -Anesthetic Used 5% Lidocaine Gel WC - Nurse 2 - General Ulcer CM Notes Start: 12/18/23 09:08 Freq: Status: Active Protocol: Activity Type Activity Date Activity User E-sign Co-sign Detail Recorded Client Recorded Date Recorded By Document 12/18/23 09:40 [facility] 12/18/23 09:57 [facility] 12/18/23 09:40 Wound Center Nurse 2 #7 R 2nd toe plantar -Post Debridement (cm) - Length 1 -Post Debridement (cm) - Width 1 -Post Debridement (cm) - Depth 0.1 -Total Square (Post) (cm) 1 -Area of Debridement (cm) - Length 1 -Area of Debridement (cm) - Width 1 -Total Square (Area) (cm) 1 -Tunneling No -Undermining/Tunneling No -Wound/Ulcer Outcome Not Healed -Ulcer Cleansing Rinsed/ Irrigated with Saline -Foul Odor after Cleansing No -Bioengineered Tissue No -Bleeding Controlled with NA #6 R 2nd toe dorsal -Post Debridement (cm) - Length 1.2 -Post Debridement (cm) - Width 1.3 -Post Debridement (cm) - Depth 0.1 -Total Square (Post) (cm) 1.56 -Area of Debridement (cm) - Length 1.2 -Area of Debridement (cm) - Width 1.3 -Total Square (Area) (cm) 1.56 -Tunneling No -Undermining/Tunneling No -Bleeding Controlled with NA #4 Lateral Right Plantar Foot -Time 09:45 -Correct Patient Yes -Correct Side, Site, Position Yes -Correct Procedure Yes -Procedure Performed Yes -Type of Procedure Debridement -Clinical Debridement Subcutaneous -Tissue Removed Subcutaneous -Post Debridement (cm) - Length 2.2 -Post Debridement (cm) - Width 2 -Post Debridement (cm) - Depth 0.1 -Total Square (Post) (cm) 4.4 -Area of Debridement (cm) - Length 2.2 -Area of Debridement (cm) - Width 2 -Total Square (Area) (cm) 4.4 -Tunneling No -Undermining/Tunneling No -Circular Undermining No -Wound/Ulcer Outcome Not Healed -Ulcer Cleansing Rinsed/ Irrigated with Saline -Foul Odor after Cleansing No -Bioengineered Tissue No -Bleeding Controlled with Pressure -Treatment Response Procedure Tolerated Well -Offloading Yes -Type of Offloading Other -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 Yes WC - Nurse 3 - General Ulcer D/C NN Start: 12/18/23 09:08 Freq: Status: Active Protocol: Activity Type Activity Date Activity User E-sign Co-sign Detail Recorded Client Recorded Date Recorded By Document 12/18/23 10:09 [facility] wound center 12/18/23 10:10 [facility] 12/18/23 10:09 Wound Care Center Nurse 3 #7 R 2nd toe plantar -Other Dressing triple antibiotic ointment -Primary Dressing Covered/Secured with Dry Gauze, Secured with Tape #6 R 2nd toe dorsal -Other Dressing triple ATB ointment -Primary Dressing Covered/Secured with Dry Gauze, Secured with Tape #4 Lateral Right Plantar Foot -Primary Dressing Applied Mepilex Border, Promogran Jessica Matter -Mepilex Border 1 -Promogran Jessica Matter 1 Treatment Response Procedure Tolerated Well Pain Scale: 0-10 Numeric Is Patient Pain Free? Yes WC - Visit Discharge Discharge Condition Stable Ambulatory Status Ambulatory Transportation Private Auto Medication Reconcilliation completed & No provided to patient/care provider Clinical Summary of Care Provided Yes Assessment/Plan Assessment/Plan (1) Ulcer of right foot with fat layer exposed: CODE(S): L97.512 - Non-pressure chronic ulcer of other part of right foot with fat layer exposed (2) Type 1 diabetes mellitus with diabetic polyneuropathy: CODE(S): E10.42 - Type 1 diabetes mellitus with diabetic polyneuropathy (3) Diabetes mellitus with foot ulcer: CODE(S): E11.621 - Type 2 diabetes mellitus with foot ulcer; L97.509 - Non-pressure chronic ulcer of other part of unspecified foot with unspecified severity (4) Delayed wound healing: CODE(S): T14.8XXD - Other injury of unspecified body region, subsequent encounter (5) Obesity: CODE(S): E66.9 - Obesity, unspecified QUALIFIERS: Body mass index: BMI 34.0-34.9 Obesity classification: adult class 1 (BMI 30 - 34.9) Obesity type: due to excess calories Serious obesity comorbidity presence: with serious comorbidity Qualified Code(s): E66.09 - Other obesity due to excess calories; Z68.34 - Body mass index [BMI] 34.0-34.9, adult PLAN: Plan Patient seen and evaluated He reports reopening subfourth metatarsal ulceration of the right foot with an additional 3 ulcerations that are new to the right foot last week. Ulceration subfourth digit has healed. No signs of infection. Second and third new stable ulcerations to the dorsal aspect of the second digit and plantar aspect of the second digit measuring 0.5 cm x 0.4 cm x 0.1 cm and 0.1 cm x 0.1 cm x 0.1 cm respectively. No signs of infection Ulceration subfourth metatarsal head of the right foot did undergo debridement today as noted in clinical panel above. Ulceration measures 0.1 cm x 0.1 cm x 0.1 cm. Jessica applied with DSD. He has completed all 10 applications of EpiFix graft. Wound is improving with no maceration and continued epithelialization but pressure remains a consistent problem. Dry sterile dressing applied to the right foot to pad and protect area. He is instructed to change dressing daily. Offloading pad was placed about the subfourth metatarsal head of the right foot today. There is noted improvement to all ulcerations today He does have hyperkeratosis sub 4th metatarsal head of the left foot with subdermal hemorrhaging. No signs of infection. Discussed continuing to pad and protect the area with a larger Band-Aid and is now in Diabetic Custom offloading inserts. Hyperkeratosis subfourth metatarsal head of the left foot did undergo sharp debridement with#313 blade today. This was performed without incident. Ulceration demonstrates increased in size versus previous visit. Recommended continued offloading in CAM boot/surgical shoe to the right foot with plantar offloading padding. Surgical shoe also offloaded so that he may wear this when getting up to go to the bathroom at night. Otherwise will remain in CAM boot with plantar offloading padding. Working again and wearing steel toe boots for work and thus needs continued offloading. Will wear Diabetic Custom offloading inserts. Discussed continuing diabetic shoes with diabetic inserts. He is instructed to not pick at any calluses in future as this led to his ulceration. Discussed obtaining new diabetic shoe gear with new custom inserts. A comprehensive diabetic foot and ankle examination was performed 11/06/2023. Examination demonstrates diabetes mellitus type 1 with peripheral polyneuropathy, previous bilateral partial fifth metatarsal amputations, preulcerative callus subfourth metatarsal head of the left foot, ulceration subfourth metatarsal head right foot. I am recommending updating diabetic shoe gear with custom trilaminate diabetic inserts with a subfifth metatarsal base pocket and subfourth metatarsal head pocket for offloading of these prominent pressure sites of bilateral feet. Patient states he did get measured for diabetic shoes and I have informed him that shoes are in the office. 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 He also ordered an additional set of work boots through [employer] with additional custom inserts for offloading. Patient states he will pay for these [id number] for these additional shoes and inserts. He has been wearing the offloading inserts and reports they are comfortable and he can tell they are reducing pressure across the forefoot. Discussed proper diabetic diet and tight glycemic control to continue to aid in healing of his ulceration. Discussed adequate protein intake to continue to aid in wound healing. Bhaskar supplementation also recommended to aid in wound healing. Last A1c 10/27/[address] Clement was 6.6%. Discussed continuing his proper diabetic diet to ensure good glycemic control. He does experience mendez phenomenon and they are working to achieve glycemic control. Discussed signs of infection today. He was instructed if he notices increasing redness about the ulcerative site that moves up onto the foot or up his leg, if he notices purulent drainage from the wound site, if he notices increasing foul odor from the wound, or if he develops fever greater than 101 degree, or nausea, or vomiting, or chills, that these are signs of a progressing infection and he should report to the ED to receive IV antibiotics. He voices understanding of this. The following work up and care recommendations were made: Dressing: Jessica, dry sterile dressing. Change dressing daily to subfourth metatarsal site Wash: Soap and water Tissue growth optimization: Jessica Offload: Plantar offloading padding and CAM boot right foot. Diabetic shoe gear with custom offloading inserts when not wearing CAM boot. Vascular: DP and PT pulses Palpable with adequate capillary fill time. Do not feel vascular status is impacting wound healing. Edema: No signs of pedal edema Infection: No signs of infection Pain: No pain secondary to diabetic peripheral polyneuropathy Host factors: DM type I with peripheral polyneuropathy, patient's himself as iatrogenic cause to ulcer, pressure I answered all the patient's questions. To return to the wound healing center in 1 week or call sooner if the patient has any questions or concerns.
[2024-01-01 09:20] VITALS: BP 123/68; PULSE 92; RESP 20; TEMP 36.4; BMI 35.9
--- NOTE | 2024-01-01 09:24 | PCM.WC.PN ---
History of Present Illness Date of Service: 01/01/24 Chief Complaint: right plantar foot ulcer and right leg ulcer History of Wound: This 38-year-old diabetic male presents to the wound healing center for a subfourth metatarsal ulceration of the right foot. 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 He states he tried to care for the ulceration for roughly 2 to 3 weeks in which it was not healing and presented to office. In office he did undergo debridement of the site continued offloading in [facility] boot however did not obtain his dressing supplies and was performing daily changes of wet to dry gauze. He was referred to the wound care center for applications of advanced wound care product. He states no pain secondary to diabetic peripheral polyneuropathy. He denies N/V/F/chills. He denies further complaints. Subjective Subjective This is a 38-year-old male who presents to the wound care center for follow-up of a plantar fourth metatarsal ulceration of the right foot. He continues wearing his Diabetic shoes with custom offloading inserts, states they are comfortable and have reduced pressure to his fourth metatarsal head at both feet. Continues to change dressings daily. He denies constitutional symptoms. Denies further complaints. Objective Data Objective Data Vital Signs: Vital Signs Temp Pulse Resp BP O2 Del Method 98.2 F 90 18 109/74 Room Air 12/25/23 09:13 12/25/23 09:13 12/25/23 09:13 12/25/23 09:13 12/25/23 09:13 Oxygen Delivery Method Room Air Weight: 120.202 kg Body Mass Index (BMI) 35.9 Physical Exam Const alert, oriented x3 and no apparent distress General Appearance: cooperative HEENT normocephalic Eyes General Eye: normal appearance of both eyes Neck General: normal visual inspection Lymph Lymphatic: no lymphadenopathy noted and no lymphedema noted Resp normal respiratory effort Cardio regular rate and regular rhythm Extremity normal capillary refill, no joint enlargement, no calf tenderness and no pedal edema Extremity Narrative: Vascular: DP and PT pulses palpable right foot. Capillary fill time less than 4 seconds to digits right foot. No pedal edema is noted. Dermatological: Skin is mildly xerotic to the plantar aspect. There is a ulceration subfourth metatarsal head previously reopened with serosanguineous drainage and surrounding macerated skin, but there is noted improvement with continued use of new offloading inserts. Wound is epithelialized. Skin fissure subfourth digit of the right foot remains healed. Dorsal and plantar second digit fissures improving to the right foot. No signs of infection. No erythema, no purulent drainage, no malodor, no palpable fluctuance/bogginess noted, no visible abscess formation, no lymphangitic streaking. Subfourth metatarsal head left foot demonstrates hyperkeratosis with subdermal hemorrhaging, but improving with offloading insert. Neurologic: Decreased protective sensation bilateral foot secondary to diabetic peripheral polyneuropathy. Musculoskeletal: Muscle strength 5 of 5 age-appropriate. Partial fifth ray amputation is noted to the right foot. Decreased range of motion of the ankle joint in dorsiflexion with the knee extended without pain or crepitus. Decreased range of motion of the first metatarsophalangeal joint without pain or crepitus. Skin no rashes or lesions noted, skin turgor normal and no jaundice Neuro moves all extremities Debridement Note Debridement Note Wound debrided: Right foot x 2 Laterality: Right Wound Grade/Stage: Reynoso stage I Type of Debridement: Excisional debridement Anesthesia Used: 5% Lidocaine Gel Depth: Down to and including healthy tissue and in the subcutaneous layer Percentage of wound debrided: 100 Instrument Used: #15 blade Tissue Removed: Fibrous, devitalized subcutaneous, biofilm, slough Severity: Fat Layer Exposed Amount of bleeding with debridement: Mild Bleeding Controlled with: Compression and gauze Patient tolerated procedure: Patient tolerated procedure well Post-Debridement Measurements and Additional Note: Post-Debridement Measurements/Treatment - Nurse 1 - General Ulcer Assessment Start: 12/18/23 09:08 Freq: Status: Active Protocol: LORI Activity Type Activity Date Activity User E-sign Co-sign Detail Recorded Client Recorded Date Recorded By Document 12/18/23 09:08 DL [email or web address] 12/18/23 09:22 DL Document 12/25/23 09:13 DS 1 12/25/23 09:27 DS 12/18/23 12/25/23 09:08 09:13 - Today's Visit Information Type of service Follow-up Visit Follow-up Visit (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 SWISS TYPE (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 SWISS TYPE ) ) Arrival Mode Ambulatory Ambulatory Transfer Assistance None Patient Identification Verified (Name & Yes ) Patient Requires Transmission-Based No Precautions Safety Precautions NA Height and Weight Body Mass Index (BMI) 35.9 35.9 BMI Classification Obese Obese Vital Signs Temperature (97.8 F-99.1 F) 97.8 F 98.2 F Temperature Source Temporal Temporal Pulse Rate (60-100) 90 90 Pulse Location Monitor Monitor Respiratory Rate (12-18) 20 H 18 Respiratory rate source Observation Observation Oxygen Delivery Method Room Air Blood Pressure (90/60-120/80) 122/70 H 109/74 Blood Pressure Mean (mm Hg) 87 85 Source Monitor Monitor Position Sitting Blood Pressure Location Left Arm History Since Last Visit- (Skip if this is Patient's initial visit) Have you changed medications since your No No last visit? Any new allergies or adverse reactions No No Had a fall/change in ADL's that may No No increase risk of falls Signs or symptoms of abuse and/or No No neglect since last visit Have you been in the hospital since your No No last visit? Has dressing in place as prescribed Yes Has compression in place as prescribed Yes Has offloadiing in place as prescribed Yes Experienced any changes in pain level or No management Left Footwear Regular Shoe Right Footwear Regular Shoe Pain Scale: 0-10 Numeric Is Patient Pain Free? Yes Yes WC - Nurse 1 - General Ulcer Measurement Start: 12/18/23 09:08 Freq: Status: Active Protocol: Activity Type Activity Date Activity User E-sign Co-sign Detail Recorded Client Recorded Date Recorded By Document 12/18/23 09:08 DL [email or web address] 12/18/23 09:22 DL Document 12/25/23 09:13 DS 1 12/25/23 09:27 DS 12/18/23 12/25/23 09:08 09:13 Wound Center Nurse 1 #7 R 2nd toe plantar -Combined with (Name of Wound-Exactly 0.5 as it is documented) -Current Size (cm) - Length 1 0.4 -Current Size (cm) - Width 1 0.1 -Current Size (cm) - Depth 0.1 -Total Square Cm 1 0.04 -Photo Taken Yes -Exudate Amt Medium -Exudate Type Serosanguineous -Wound Margin Distinct, Distinct, Outline Outline Attached Attached -Granulation Amt Large (67-100%) Large (67-100%) -Granulation Quality Red -Necrosis Amt None Present (0 %) -Structure Exposed N/A -Texture (Yu-wound Skin Appearance) Localized Edema Assessed ,Scarring -Moisture (Yu-wound Skin Appearance) No Abnormality Assessed -Color (Yu-wound Skin Appearance) Erythema Assessed, Erythema -Temperature (Yu-wound Skin No Abnormality No Abnormality Appearance) (Pt Warm) (Pt Warm) -Tenderness on Palpation (Yu-wound No No Skin Appearance) -Ulcer Cleansing Soap and Water Soap and Water -Foul Odor after Cleansing No -Anesthetic Used 5% Lidocaine 5% Lidocaine Gel Gel #6 R 2nd toe dorsal -Current Size (cm) - Length 1.2 0.3 -Current Size (cm) - Width 1.3 0.8 -Current Size (cm) - Depth 0.1 0.1 -Total Square Cm 1.56 0.24 -Photo Taken Yes No -Exudate Amt Small -Exudate Type Serosanguineous -Wound Margin Distinct, Outline Attached -Granulation Amt Large (67-100%) Large (67-100%) -Granulation Quality Red Carmet -Necrosis Amt None Present (0 %) -Structure Exposed N/A -Texture (Yu-wound Skin Appearance) Scarring Assessed -Moisture (Yu-wound Skin Appearance) No Abnormality Assessed -Color (Yu-wound Skin Appearance) Erythema Assessed, Erythema -Temperature (Yu-wound Skin No Abnormality No Abnormality Appearance) (Pt Warm) (Pt Warm) -Tenderness on Palpation (Yu-wound No Skin Appearance) -Ulcer Cleansing Soap and Water Soap and Water -Foul Odor after Cleansing No -Anesthetic Used 5% Lidocaine 5% Lidocaine Gel Gel #4 Lateral Right Plantar Foot -Current Size (cm) - Length 1 0.1 -Current Size (cm) - Width 0.5 0.1 -Current Size (cm) - Depth 0.2 0.1 -Total Square Cm 0.5 0.01 -Photo Taken Yes -Exudate Amt Medium -Exudate Type Serosanguineous -Wound Margin Thickened Distinct, Outline Attached -Granulation Amt Small (1-33%) -Granulation Quality Carmet -Necrosis Amt Small (1-33%) -Necrotic Tissue Type Adherent Slough -Structure Exposed N/A -Texture (Yu-wound Skin Appearance) Callus Assessed,Callus -Moisture (Yu-wound Skin Appearance) Dry/Scaly Assessed -Color (Yu-wound Skin Appearance) No Abnormality Assessed -Temperature (Yu-wound Skin No Abnormality No Abnormality Appearance) (Pt Warm) (Pt Warm) -Tenderness on Palpation (Yu-wound No No Skin Appearance) -Ulcer Cleansing Soap and Water Soap and Water -Foul Odor after Cleansing No -Anesthetic Used 5% Lidocaine 5% Lidocaine Gel Gel WC - Nurse 2 - General Ulcer CM Notes Start: 12/18/23 09:08 Freq: Status: Active Protocol: Activity Type Activity Date Activity User E-sign Co-sign Detail Recorded Client Recorded Date Recorded By Document 12/18/23 09:40 [facility] 12/18/23 09:57 [facility] Document 12/25/23 09:34 [facility] 12/25/23 09:44 [facility] 12/18/23 12/25/23 09:40 09:34 Wound Center Nurse 2 #7 R 2nd toe plantar -Time 09:38 -Correct Patient Yes -Correct Side, Site, Position Yes -Correct Procedure Yes -Procedure Performed Yes -Type of Procedure Debridement -Clinical Debridement Subcutaneous -Tissue Removed Subcutaneous -Post Debridement (cm) - Length 1 0.5 -Post Debridement (cm) - Width 1 0.4 -Post Debridement (cm) - Depth 0.1 0.1 -Total Square (Post) (cm) 1 0.20 -Area of Debridement (cm) - Length 1 0.5 -Area of Debridement (cm) - Width 1 0.4 -Total Square (Area) (cm) 1 0.20 -Tunneling No No -Undermining/Tunneling No No -Circular Undermining No -Wound/Ulcer Outcome Not Healed Not Healed -Ulcer Cleansing Rinsed/ Rinsed/ Irrigated with Irrigated with Saline Saline -Foul Odor after Cleansing No No -Bioengineered Tissue No No -Bleeding Controlled with NA Pressure -Treatment Response Procedure Tolerated Well -Debridement - Subq, 1st 20sq cm No #6 R 2nd toe dorsal -Time 09:38 -Post Debridement (cm) - Length 1.2 0.1 -Post Debridement (cm) - Width 1.3 0.1 -Post Debridement (cm) - Depth 0.1 0.1 -Total Square (Post) (cm) 1.56 0.01 -Area of Debridement (cm) - Length 1.2 0.1 -Area of Debridement (cm) - Width 1.3 0.1 -Total Square (Area) (cm) 1.56 0.01 -Tunneling No No -Undermining/Tunneling No No -Circular Undermining No -Wound/Ulcer Outcome Not Healed -Bleeding Controlled with NA NA #4 Lateral Right Plantar Foot -Time 09:45 09:38 -Correct Patient Yes Yes -Correct Side, Site, Position Yes Yes -Correct Procedure Yes Yes -Procedure Performed Yes Yes -Type of Procedure Debridement Debridement -Clinical Debridement Subcutaneous Subcutaneous -Tissue Removed Subcutaneous Subcutaneous -Post Debridement (cm) - Length 2.2 0.1 -Post Debridement (cm) - Width 2 0.1 -Post Debridement (cm) - Depth 0.1 0.1 -Total Square (Post) (cm) 4.4 0.01 -Area of Debridement (cm) - Length 2.2 0.1 -Area of Debridement (cm) - Width 2 0.1 -Total Square (Area) (cm) 4.4 0.01 -Tunneling No No -Undermining/Tunneling No No -Circular Undermining No No -Wound/Ulcer Outcome Not Healed Not Healed -Ulcer Cleansing Rinsed/ Rinsed/ Irrigated with Irrigated with Saline Saline -Foul Odor after Cleansing No No -Bioengineered Tissue No No -Bleeding Controlled with Pressure Pressure -Treatment Response Procedure Procedure Tolerated Well Tolerated Well -Offloading Yes -Type of Offloading Other -Other Type of Offloading TO [employer] SHOES- POSSIBLY TODAY@ [facility] -Debridement - Subq, 1st 20sq cm Yes Yes Pain Scale: 0-10 Numeric Is Patient Pain Free? Yes Yes - Nurse 3 - General Ulcer D/C NN Start: 12/18/23 09:08 Freq: Status: Active Protocol: Activity Type Activity Date Activity User E-sign Co-sign Detail Recorded Client Recorded Date Recorded By Document 12/18/23 10:09 [facility] wound center 12/18/23 10:10 RB Document 12/25/23 09:45 [facility] 12/25/23 09:46 [facility] 12/18/23 12/25/23 10:09 09:45 Wound Care Center Nurse 3 #7 R 2nd toe plantar -Ulcer Cleansing Rinsed/ Irrigated with Saline -Foul Odor after Cleansing No -Other Dressing triple AMY OINT antibiotic ointment -Primary Dressing Covered/Secured with Dry Gauze, Dry Gauze, Secured with Secured with Tape Tape #6 R 2nd toe dorsal -Ulcer Cleansing Rinsed/ Irrigated with Saline -Foul Odor after Cleansing No -Other Dressing triple ATB AMY OINT ointment -Primary Dressing Covered/Secured with Dry Gauze, Dry Gauze, Secured with Secured with Tape Tape #4 Lateral Right Plantar Foot -Primary Dressing Applied Mepilex Border, Mepilex Border Promogran Jessica Matter -Mepilex Border 1 1 -Promogran Jessica Matter 1 Treatment Response Procedure Procedure Tolerated Well Tolerated Well Pain Scale: 0-10 Numeric Is Patient Pain Free? Yes Yes WC - Visit Discharge Discharge Condition Stable Stable Ambulatory Status Ambulatory Ambulatory Transportation Private Auto Private Auto Medication Reconcilliation completed & No provided to patient/care provider Clinical Summary of Care Provided Yes Assessment/Plan Assessment/Plan (1) Ulcer of right foot with fat layer exposed: CODE(S): L97.512 - Non-pressure chronic ulcer of other part of right foot with fat layer exposed (2) Type 1 diabetes mellitus with diabetic polyneuropathy: CODE(S): E10.42 - Type 1 diabetes mellitus with diabetic polyneuropathy (3) Diabetes mellitus with foot ulcer: CODE(S): E11.621 - Type 2 diabetes mellitus with foot ulcer; L97.509 - Non-pressure chronic ulcer of other part of unspecified foot with unspecified severity (4) Delayed wound healing: CODE(S): T14.8XXD - Other injury of unspecified body region, subsequent encounter (5) Obesity: CODE(S): E66.9 - Obesity, unspecified QUALIFIERS: Obesity type: due to excess calories Obesity classification: adult class 1 (BMI 30 - 34.9) Serious obesity comorbidity presence: with serious comorbidity Body mass index: BMI 34.0-34.9 Qualified Code(s): E66.09 - Other obesity due to excess calories; Z68.34 - Body mass index [BMI] 34.0-34.9, adult PLAN: Plan Patient seen and evaluated He reports reopening subfourth metatarsal ulceration of the right foot with an additional 3 ulcerations that are new to the right foot 2 weeks ago. Ulceration subfourth digit has healed. No signs of infection. Second and third digit ulcerations to the dorsal aspect of the second digit and plantar aspect of the second digit measuring 0.5 cm x 0.4 cm x 0.1 cm and 0.1 cm x 0.1 cm x 0.1 cm respectively. No signs of infection Ulceration subfourth metatarsal head of the right foot did undergo debridement today as noted in clinical panel above. Ulceration measures 0.2 cm x 0.2 cm x 0.1 cm. Jessica applied with DSD. He has completed all 10 applications of EpiFix graft. Wound is improving with little maceration and continued epithelialization but pressure remains a consistent problem. Dry sterile dressing applied to the right foot to pad and protect area. He is instructed to change dressing daily. Offloading pad was placed about the subfourth metatarsal head of the right foot today. There is continued improvement to all ulcerations today He does have hyperkeratosis sub 4th metatarsal head of the left foot with subdermal hemorrhaging. No signs of infection. Discussed continuing to pad and protect the area with a larger Band-Aid and is now in Diabetic Custom offloading inserts. Hyperkeratosis subfourth metatarsal head of the left foot did undergo sharp debridement with#15 blade today. This was performed without incident. Ulceration demonstrates increased in size versus previous visit. Recommended continued offloading in CAM boot/surgical shoe to the right foot with plantar offloading padding. Surgical shoe also offloaded so that he may wear this when getting up to go to the bathroom at night. Otherwise will remain in CAM boot with plantar offloading padding. Working again and wearing steel toe boots for work and thus needs continued offloading. Will wear Diabetic Custom offloading inserts. Discussed continuing diabetic shoes with diabetic inserts. He is instructed to not pick at any calluses in future as this led to his ulceration. He did go to the office 12/18/2023 to picker tender helper the diabetic shoes with offloading inserts. He also ordered an additional set of work boots through [employer] with additional custom inserts for offloading. Patient states he will pay for these [id number] for these additional shoes and inserts. He has been wearing the offloading inserts and reports they are comfortable and he can tell they are reducing pressure across the forefoot. Discussed proper diabetic diet and tight glycemic control to continue to aid in healing of his ulceration. Discussed adequate protein intake to continue to aid in wound healing. Bhaskar supplementation also recommended to aid in wound healing. Last A1c 10/27/[address] Clement was 6.6%. Discussed continuing his proper diabetic diet to ensure good glycemic control. He does experience mendez phenomenon and they are working to achieve glycemic control. Discussed signs of infection today. He was instructed if he notices increasing redness about the ulcerative site that moves up onto the foot or up his leg, if he notices purulent drainage from the wound site, if he notices increasing foul odor from the wound, or if he develops fever greater than 101 degree, or nausea, or vomiting, or chills, that these are signs of a progressing infection and he should report to the ED to receive IV antibiotics. He voices understanding of this. The following work up and care recommendations were made: Dressing: Jessica, dry sterile dressing. Change dressing daily to subfourth metatarsal site Wash: Soap and water Tissue growth optimization: Jessica Offload: Plantar offloading padding and CAM boot right foot. Diabetic shoe gear with custom offloading inserts when not wearing CAM boot. Vascular: DP and PT pulses Palpable with adequate capillary fill time. Do not feel vascular status is impacting wound healing. Edema: No signs of pedal edema Infection: No signs of infection Pain: No pain secondary to diabetic peripheral polyneuropathy Host factors: DM type I with peripheral polyneuropathy, patient's himself as iatrogenic cause to ulcer, pressure I answered all the patient's questions. To return to the wound healing center in 1 week or call sooner if the patient has any questions or concerns.
[2024-01-08 09:08] VITALS: BP 123/76; PULSE 88; RESP 18; TEMP 36.3; BMI 35.9
--- NOTE | 2024-01-08 09:15 | PCM.WC.PN ---
History of Present Illness Date of Service: 01/08/24 Chief Complaint: right plantar foot ulcer and right leg ulcer History of Wound: This 38-year-old diabetic male presents to the wound healing center for a subfourth metatarsal ulceration of the right foot. 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 He states he tried to care for the ulceration for roughly 2 to 3 weeks in which it was not healing and presented to office. In office he did undergo debridement of the site continued offloading in [facility] boot however did not obtain his dressing supplies and was performing daily changes of wet to dry gauze. He was referred to the wound care center for applications of advanced wound care product. He states no pain secondary to diabetic peripheral polyneuropathy. He denies N/V/F/chills. He denies further complaints. Subjective Subjective This is a 38-year-old male who presents to the wound care center for follow-up of a plantar fourth metatarsal ulceration of the right foot. He continues wearing his Diabetic shoes with custom offloading inserts. He states that his new work boots have arrived with additional offloading inserts and he will pick those up tomorrow. Continues to change dressings daily and feels sites are improving. He denies constitutional symptoms. Denies further complaints. Objective Data Objective Data Vital Signs: Vital Signs Temp Pulse Resp BP O2 Del Method 97.3 F L 88 18 123/76 H Room Air 01/08/24 09:08 01/08/24 09:08 01/08/24 09:08 01/08/24 09:08 12/25/23 09:13 Oxygen Delivery Method Room Air Weight: 120.202 kg Body Mass Index (BMI) 35.9 Physical Exam Const alert, oriented x3 and no apparent distress General Appearance: cooperative HEENT normocephalic Eyes General Eye: normal appearance of both eyes Neck General: normal visual inspection Lymph Lymphatic: no lymphadenopathy noted and no lymphedema noted Resp normal respiratory effort Cardio regular rate and regular rhythm Extremity normal capillary refill, no joint enlargement, no calf tenderness and no pedal edema Extremity Narrative: Vascular: DP and PT pulses palpable right foot. Capillary fill time less than 4 seconds to digits right foot. No pedal edema is noted. Dermatological: Skin is mildly xerotic to the plantar aspect. There is a ulceration subfourth metatarsal head previously reopened with serosanguineous drainage and surrounding macerated skin, but there is noted improvement with continued use of new offloading inserts. Wound is epithelialized. Skin fissure subfourth digit of the right foot remains healed. Dorsal second digit fissure has healed. Plantar second digit fissure improving to the right foot. No signs of infection. No erythema, no purulent drainage, no malodor, no palpable fluctuance/bogginess noted, no visible abscess formation, no lymphangitic streaking. Subfourth metatarsal head left foot demonstrates hyperkeratosis with subdermal hemorrhaging, but improving with offloading insert. Neurologic: Decreased protective sensation bilateral foot secondary to diabetic peripheral polyneuropathy. Musculoskeletal: Muscle strength 5 of 5 age-appropriate. Partial fifth ray amputation is noted to the right foot. Decreased range of motion of the ankle joint in dorsiflexion with the knee extended without pain or crepitus. Decreased range of motion of the first metatarsophalangeal joint without pain or crepitus. Skin no rashes or lesions noted, skin turgor normal and no jaundice Neuro moves all extremities Debridement Note Debridement Note Wound debrided: Subfourth metatarsal head right foot Laterality: Right Wound Grade/Stage: Reynoso stage I Type of Debridement: Excisional debridement Anesthesia Used: 5% Lidocaine Gel Depth: Down to and including healthy tissue and in the subcutaneous layer Percentage of wound debrided: 100 Instrument Used: #15 blade Tissue Removed: Fibrous, devitalized subcutaneous, biofilm, slough Severity: Fat Layer Exposed Amount of bleeding with debridement: Mild Bleeding Controlled with: Compression and gauze Patient tolerated procedure: Patient tolerated procedure well Post-Debridement Measurements and Additional Note: Post-Debridement Measurements/Treatment RENETTA - Nurse 1 - General Ulcer Assessment Start: 12/18/23 09:08 Freq: Status: Active Protocol: LORI Activity Type Activity Date Activity User E-sign Co-sign Detail Recorded Client Recorded Date Recorded By Document 12/18/23 09:08 DL [id number] 12/18/23 09:22 DL Document 12/25/23 09:13 DS 1 12/25/23 09:27 DS Document 01/01/24 09:20 DL [id number] 01/01/24 09:26 DL Document 01/08/24 09:08 DL [email or web address] 01/08/24 09:13 DL 12/18/23 12/25/23 01/01/24 09:08 09:13 09:20 WC - Today's Visit Information Type of service Follow-up Visit Follow-up Visit Follow-up Visit (Physician/DIRECTOR OF GIFT PLANNING (Physician/DIRECTOR OF GIFT PLANNING (Physician/DIRECTOR OF GIFT PLANNING ) ) ) Arrival Mode Ambulatory Ambulatory Ambulatory Transfer Assistance None None Patient Identification Verified (Name & Yes Yes ) Patient Requires Transmission-Based No No Precautions Safety Precautions NA Finger Stick Blood Sugar(mg/dl) (if 142 indicated): Blood Sugar Stated by Patient Height and Weight Body Mass Index (BMI) 35.9 35.9 35.9 BMI Classification Obese Obese Obese Vital Signs Temperature (97.8 F-99.1 F) 97.8 F 98.2 F 97.5 F L Temperature Source Temporal Temporal Temporal Pulse Rate (60-100) 90 90 92 Pulse Location Monitor Monitor Monitor Respiratory Rate (12-18) 20 H 18 20 H Respiratory rate source Observation Observation Observation Oxygen Delivery Method Room Air Blood Pressure (90/60-120/80) 122/70 H 109/74 123/68 H Blood Pressure Mean (mm Hg) 87 85 86 Source Monitor Monitor Monitor Position Sitting Blood Pressure Location Left Arm History Since Last Visit- (Skip if this is Patient's initial visit) Have you changed medications since your No No No last visit? Any new allergies or adverse reactions No No No Had a fall/change in ADL's that may No No No increase risk of falls Signs or symptoms of abuse and/or No No No neglect since last visit Have you been in the hospital since your No No No last visit? Has dressing in place as prescribed Yes Yes Has compression in place as prescribed Yes N/A Has offloadiing in place as prescribed Yes Yes Experienced any changes in pain level or No No management Left Footwear Regular Shoe Right Footwear Regular Shoe Custom Shoe Pain Scale: 0-10 Numeric Is Patient Pain Free? Yes Yes Yes 01/08/24 09:08 - Today's Visit Information Type of service Follow-up Visit (Physician/DIRECTOR OF GIFT PLANNING ) Arrival Mode Ambulatory Transfer Assistance None Patient Identification Verified (Name & Yes ) Patient Requires Transmission-Based No Precautions Safety Precautions Finger Stick Blood Sugar(mg/dl) (if indicated): Blood Sugar Height and Weight Body Mass Index (BMI) 35.9 BMI Classification Obese Vital Signs Temperature (97.8 F-99.1 F) 97.3 F L Temperature Source Temporal Pulse Rate (60-100) 88 Pulse Location Monitor Respiratory Rate (12-18) 18 Respiratory rate source Observation Oxygen Delivery Method Blood Pressure (90/60-120/80) 123/76 H Blood Pressure Mean (mm Hg) 91 Source Monitor Position Blood Pressure Location History Since Last Visit- (Skip if this is Patient's initial visit) Have you changed medications since your No last visit? Any new allergies or adverse reactions No Had a fall/change in ADL's that may No increase risk of falls Signs or symptoms of abuse and/or No neglect since last visit Have you been in the hospital since your last visit? Has dressing in place as prescribed Yes Has compression in place as prescribed Yes Has offloadiing in place as prescribed Yes Experienced any changes in pain level or No management Left Footwear Right Footwear Pain Scale: 0-10 Numeric Is Patient Pain Free? Yes WC - Nurse 1 - General Ulcer Measurement Start: 12/18/23 09:08 Freq: Status: Active Protocol: Activity Type Activity Date Activity User E-sign Co-sign Detail Recorded Client Recorded Date Recorded By Document 12/18/23 09:08 DL [email or web address] 12/18/23 09:22 DL Document 12/25/23 09:13 DS 1 12/25/23 09:27 DS Document 01/01/24 09:20 DL [email or web address] 01/01/24 09:26 DL Document 01/08/24 09:08 DL [email or web address] 01/08/24 09:13 DL 12/18/23 12/25/23 01/01/24 09:08 09:13 09:20 Wound Center Nurse 1 #7 R 2nd toe plantar -Combined with (Name of Wound-Exactly 0.5 as it is documented) -Current Size (cm) - Length 1 0.4 0.1 -Current Size (cm) - Width 1 0.1 0.1 -Current Size (cm) - Depth 0.1 0.1 -Total Square Cm 1 0.04 0.01 -Photo Taken Yes -Exudate Amt Medium -Exudate Type Serosanguineous -Wound Margin Distinct, Distinct, Outline Outline Attached Attached -Granulation Amt Large (67-100%) Large (67-100%) -Granulation Quality Red -Necrosis Amt None Present (0 %) -Structure Exposed N/A -Texture (Yu-wound Skin Appearance) Localized Edema Assessed Assessed ,Scarring -Moisture (Yu-wound Skin Appearance) No Abnormality Assessed Assessed -Color (Yu-wound Skin Appearance) Erythema Assessed, Assessed Erythema -Temperature (Yu-wound Skin No Abnormality No Abnormality No Abnormality Appearance) (Pt Warm) (Pt Warm) (Pt Warm) -Tenderness on Palpation (Yu-wound No No No Skin Appearance) -Ulcer Cleansing Soap and Water Soap and Water Soap and Water -Foul Odor after Cleansing No -Anesthetic Used 5% Lidocaine 5% Lidocaine 5% Lidocaine Gel Gel Gel #6 R 2nd toe dorsal -Current Size (cm) - Length 1.2 0.3 0.1 -Current Size (cm) - Width 1.3 0.8 0.1 -Current Size (cm) - Depth 0.1 0.1 0.1 -Total Square Cm 1.56 0.24 0.01 -Photo Taken Yes No -Exudate Amt Small Medium -Exudate Type Serosanguineous Serosanguineous -Wound Margin Distinct, Outline Attached -Granulation Amt Large (67-100%) Large (67-100%) -Granulation Quality Red [place] -Necrosis Amt None Present (0 %) -Structure Exposed N/A -Texture (Yu-wound Skin Appearance) Scarring Assessed Assessed -Moisture (Yu-wound Skin Appearance) No Abnormality Assessed Assessed -Color (Yu-wound Skin Appearance) Erythema Assessed, Assessed Erythema -Temperature (Yu-wound Skin No Abnormality No Abnormality No Abnormality Appearance) (Pt Warm) (Pt Warm) (Pt Warm) -Tenderness on Palpation (Yu-wound No No Skin Appearance) -Ulcer Cleansing Soap and Water Soap and Water Soap and Water -Foul Odor after Cleansing No -Anesthetic Used 5% Lidocaine 5% Lidocaine 5% Lidocaine Gel Gel Gel #4 Lateral Right Plantar Foot -Current Size (cm) - Length 1 0.1 0.3 -Current Size (cm) - Width 0.5 0.1 0.4 -Current Size (cm) - Depth 0.2 0.1 0.5 -Total Square Cm 0.5 0.01 0.12 -Photo Taken Yes -Maximum Distance #2 (cm) 0.6 -Circular Undermining Yes -Exudate Amt Medium Medium -Exudate Type Serosanguineous Serosanguineous -Wound Margin Thickened Distinct, Flat & Intact Outline Attached -Granulation Amt Small (1-33%) Large (67-100%) -Granulation Quality [place] Pale,[place] -Necrosis Amt Small (1-33%) Small (1-33%) -Necrotic Tissue Type Adherent Slough Adherent Slough -Structure Exposed N/A -Texture (Yu-wound Skin Appearance) Callus Assessed,Callus Assessed -Moisture (Yu-wound Skin Appearance) Dry/Scaly Assessed Assessed -Color (Yu-wound Skin Appearance) No Abnormality Assessed Assessed -Temperature (Yu-wound Skin No Abnormality No Abnormality No Abnormality Appearance) (Pt Warm) (Pt Warm) (Pt Warm) -Tenderness on Palpation (Yu-wound No No No Skin Appearance) -Ulcer Cleansing Soap and Water Soap and Water Soap and Water -Foul Odor after Cleansing No -Anesthetic Used 5% Lidocaine 5% Lidocaine 5% Lidocaine Gel Gel Gel Lower Limb Edema Present NA 01/08/24 09:08 Wound Center Nurse 1 #7 R 2nd toe plantar -Combined with (Name of Wound-Exactly as it is documented) -Current Size (cm) - Length 0.1 -Current Size (cm) - Width 0.1 -Current Size (cm) - Depth 0.1 -Total Square Cm 0.01 -Photo Taken -Exudate Amt None Present -Exudate Type -Wound Margin Distinct, Outline Attached -Granulation Amt Small (1-33%) -Granulation Quality Red -Necrosis Amt None Present (0 %) -Structure Exposed N/A -Texture (Yu-wound Skin Appearance) Scarring -Moisture (Yu-wound Skin Appearance) [place] -Color (Yu-wound Skin Appearance) No Abnormality -Temperature (Yu-wound Skin No Abnormality Appearance) (Pt Warm) -Tenderness on Palpation (Yu-wound Skin Appearance) -Ulcer Cleansing Soap and Water -Foul Odor after Cleansing No -Anesthetic Used 5% Lidocaine Gel #6 R 2nd toe dorsal -Current Size (cm) - Length 0.1 -Current Size (cm) - Width 0.1 -Current Size (cm) - Depth 0.1 -Total Square Cm 0.01 -Photo Taken -Exudate Amt None Present -Exudate Type -Wound Margin Distinct, Outline Attached -Granulation Amt Small (1-33%) -Granulation Quality Pale,[place] -Necrosis Amt None Present (0 %) -Structure Exposed -Texture (Yu-wound Skin Appearance) Scarring -Moisture (Yu-wound Skin Appearance) Dry/Scaly -Color (Yu-wound Skin Appearance) No Abnormality -Temperature (Yu-wound Skin No Abnormality Appearance) (Pt Warm) -Tenderness on Palpation (Yu-wound Skin Appearance) -Ulcer Cleansing Soap and Water -Foul Odor after Cleansing No -Anesthetic Used 5% Lidocaine Gel #4 Lateral Right Plantar Foot -Current Size (cm) - Length 0.2 -Current Size (cm) - Width 0.2 -Current Size (cm) - Depth 0.2 -Total Square Cm 0.04 -Photo Taken -Maximum Distance #2 (cm) 0.2 -Circular Undermining Yes -Exudate Amt Small -Exudate Type Serosanguineous -Wound Margin Thickened -Granulation Amt None Present (0 %) -Granulation Quality -Necrosis Amt Small (1-33%) -Necrotic Tissue Type Adherent Slough -Structure Exposed N/A -Texture (Yu-wound Skin Appearance) Scarring -Moisture (Yu-wound Skin Appearance) No Abnormality -Color (Yu-wound Skin Appearance) No Abnormality, Ecchymosis -Temperature (Yu-wound Skin Appearance) -Tenderness on Palpation (Yu-wound Skin Appearance) -Ulcer Cleansing Soap and Water -Foul Odor after Cleansing No -Anesthetic Used 5% Lidocaine Gel Lower Limb Edema Present WC - Nurse 2 - General Ulcer CM Notes Start: 12/18/23 09:08 Freq: Status: Active Protocol: Activity Type Activity Date Activity User E-sign Co-sign Detail Recorded Client Recorded Date Recorded By Document 12/18/23 09:40 [facility] 12/18/23 09:57 BM Document 12/25/23 09:34 BM 12/25/23 09:44 BMF Document 01/01/24 09:30 BM 01/01/24 09:42 BMF Edit Result 01/01/24 09:30 BMF (1) [id number] 01/01/24 12:20 BMF (1) #6 R 2nd toe dorsal - Bleeding Controlled with => NA 12/18/23 12/25/23 01/01/24 09:40 09:34 09:30 Wound Center Nurse 2 #7 R 2nd toe plantar -Time 09:38 09:38 -Correct Patient Yes Yes -Correct Side, Site, Position Yes Yes -Correct Procedure Yes Yes -Procedure Performed Yes Yes -Type of Procedure Debridement Debridement -Clinical Debridement Subcutaneous Subcutaneous -Tissue Removed Subcutaneous Subcutaneous -Post Debridement (cm) - Length 1 0.5 0.2 -Post Debridement (cm) - Width 1 0.4 0.2 -Post Debridement (cm) - Depth 0.1 0.1 0.2 -Total Square (Post) (cm) 1 0.20 0.04 -Area of Debridement (cm) - Length 1 0.5 0.2 -Area of Debridement (cm) - Width 1 0.4 0.2 -Total Square (Area) (cm) 1 0.20 0.04 -Tunneling No No No -Undermining/Tunneling No No No -Circular Undermining No No -Wound/Ulcer Outcome Not Healed Not Healed Not Healed -Ulcer Cleansing Rinsed/ Rinsed/ Rinsed/ Irrigated with Irrigated with Irrigated with Saline Saline Saline -Foul Odor after Cleansing No No No -Bioengineered Tissue No No No -Bleeding Controlled with NA Pressure Pressure -Treatment Response Procedure Procedure Tolerated Well Tolerated Well -Offloading Yes -Type of Offloading Other -Other Type of Offloading custom shoes ble/inserts -Debridement - Subq, 1st 20sq cm No No #6 R 2nd toe dorsal -Time 09:38 -Post Debridement (cm) - Length 1.2 0.1 0.1 -Post Debridement (cm) - Width 1.3 0.1 0.1 -Post Debridement (cm) - Depth 0.1 0.1 0.1 -Total Square (Post) (cm) 1.56 0.01 0.01 -Area of Debridement (cm) - Length 1.2 0.1 0.1 -Area of Debridement (cm) - Width 1.3 0.1 0.1 -Total Square (Area) (cm) 1.56 0.01 0.01 -Tunneling No No No -Undermining/Tunneling No No No -Circular Undermining No No -Wound/Ulcer Outcome Not Healed Not Healed -Ulcer Cleansing Rinsed/ Irrigated with Saline -Foul Odor after Cleansing No -Bioengineered Tissue No -Bleeding Controlled with NA NA NA -Offloading Yes -Type of Offloading Other -Other Type of Offloading custom shoes/ inserts yassine #4 Lateral Right Plantar Foot -Time 09:45 09:38 09:32 -Correct Patient Yes Yes Yes -Correct Side, Site, Position Yes Yes Yes -Correct Procedure Yes Yes Yes -Procedure Performed Yes Yes Yes -Type of Procedure Debridement Debridement Debridement -Clinical Debridement Subcutaneous Subcutaneous Subcutaneous -Tissue Removed Subcutaneous Subcutaneous Subcutaneous -Post Debridement (cm) - Length 2.2 0.1 0.2 -Post Debridement (cm) - Width 2 0.1 0.2 -Post Debridement (cm) - Depth 0.1 0.1 0.2 -Total Square (Post) (cm) 4.4 0.01 0.04 -Area of Debridement (cm) - Length 2.2 0.1 0.2 -Area of Debridement (cm) - Width 2 0.1 0.2 -Total Square (Area) (cm) 4.4 0.01 0.04 -Tunneling No No No -Undermining/Tunneling No No No -Circular Undermining No No No -Wound/Ulcer Outcome Not Healed Not Healed Not Healed -Ulcer Cleansing Rinsed/ Rinsed/ Rinsed/ Irrigated with Irrigated with Irrigated with Saline Saline Saline -Foul Odor after Cleansing No No No -Bioengineered Tissue No No No -Bleeding Controlled with Pressure Pressure Pressure -Treatment Response Procedure Procedure Procedure Tolerated Well Tolerated Well Tolerated Well -Offloading Yes -Type of Offloading Other -Other Type of 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 Yes Yes Yes - Nurse 3 - General Ulcer D/C NN Start: 12/18/23 09:08 Freq: Status: Active Protocol: Activity Type Activity Date Activity User E-sign Co-sign Detail Recorded Client Recorded Date Recorded By Document 12/18/23 10:09 RB wound center 12/18/23 10:10 RB Document 12/25/23 09:45 [facility] 12/25/23 09:46 [facility] Document 01/01/24 09:50 DL [email or web address] 01/01/24 09:52 DL 12/18/23 12/25/23 01/01/24 10:09 09:45 09:50 Wound Care Center Nurse 3 #7 R 2nd toe plantar -Ulcer Cleansing Rinsed/ Rinsed/ Irrigated with Irrigated with Saline Saline -Foul Odor after Cleansing No No -Other Dressing triple AMY OINT bacitracin antibiotic ointment -Primary Dressing Covered/Secured with Dry Gauze, Dry Gauze, Dry Gauze, Secured with Secured with Secured with Tape Tape Tape #6 R 2nd toe dorsal -Ulcer Cleansing Rinsed/ Rinsed/ Irrigated with Irrigated with Saline Saline -Foul Odor after Cleansing No No -Other Dressing triple ATB AMY OINT bacitracin ointment -Primary Dressing Covered/Secured with Dry Gauze, Dry Gauze, Dry Gauze, Secured with Secured with Secured with Tape Tape Tape #4 Lateral Right Plantar Foot -Ulcer Cleansing Rinsed/ Irrigated with Saline -Foul Odor after Cleansing No -Primary Dressing Applied Mepilex Border, Mepilex Border Mepilex Border, Promogran Promogran Jessiac Matter Jessica Matter -Mepilex Border 1 1 1 -Promogran Jessica Matter 1 1 Treatment Response Procedure Procedure Procedure Tolerated Well Tolerated Well Tolerated Well Pain Scale: 0-10 Numeric Is Patient Pain Free? Yes Yes Yes WC - Visit Discharge Discharge Condition Stable Stable Stable Ambulatory Status Ambulatory Ambulatory Ambulatory Transportation Private Auto Private Auto Private Auto Medication Reconcilliation completed & No provided to patient/care provider Clinical Summary of Care Provided Yes Assessment/Plan Assessment/Plan (1) Ulcer of right foot with fat layer exposed: CODE(S): L97.512 - Non-pressure chronic ulcer of other part of right foot with fat layer exposed (2) Type 1 diabetes mellitus with diabetic polyneuropathy: CODE(S): E10.42 - Type 1 diabetes mellitus with diabetic polyneuropathy (3) Diabetes mellitus with foot ulcer: CODE(S): E11.621 - Type 2 diabetes mellitus with foot ulcer; L97.509 - Non-pressure chronic ulcer of other part of unspecified foot with unspecified severity (4) Delayed wound healing: CODE(S): T14.8XXD - Other injury of unspecified body region, subsequent encounter (5) Obesity: CODE(S): E66.9 - Obesity, unspecified QUALIFIERS: Body mass index: BMI 34.0-34.9 Obesity classification: adult class 1 (BMI 30 - 34.9) Obesity type: due to excess calories Serious obesity comorbidity presence: with serious comorbidity Qualified Code(s): E66.09 - Other obesity due to excess calories; Z68.34 - Body mass index [BMI] 34.0-34.9, adult PLAN: Plan Patient seen and evaluated He reports reopening subfourth metatarsal ulceration of the right foot with an additional 3 ulcerations that are new to the right foot 2 weeks ago. Ulceration subfourth digit remains healed. No signs of infection. Second digit ulcerations to the dorsal aspect has healed and plantar aspect of the second digit 0.2 cm x 0.2 cm x 0.1 cm respectively. No signs of infection Ulceration subfourth metatarsal head of the right foot did undergo debridement today as noted in clinical panel above. Ulceration measures 0.3 cm x 0.4 cm x 0.1 cm. Jessica applied with DSD. He has completed all 10 applications of EpiFix graft. Wound is improving with little maceration and continued epithelialization but pressure remains a consistent problem. Dry sterile dressing applied to the right foot to pad and protect area. He is instructed to change dressing daily. Offloading pad was placed about the subfourth metatarsal head of the right foot today. There is continued improvement to all ulcerations today He does have hyperkeratosis sub 4th metatarsal head of the left foot with subdermal hemorrhaging. No signs of infection. Discussed continuing to pad and protect the area with a larger Band-Aid and is now in Diabetic Custom offloading inserts. Hyperkeratosis subfourth metatarsal head of the left foot did undergo sharp debridement with#15 blade today. This was performed without incident. Ulceration demonstrates increased in size versus previous visit. Recommended continued offloading in CAM boot/surgical shoe to the right foot with plantar offloading padding. Surgical shoe also offloaded so that he may wear this when getting up to go to the bathroom at night. Otherwise will remain in CAM boot with plantar offloading padding. Working again and wearing steel toe boots for work and thus needs continued offloading. Will wear Diabetic Custom offloading inserts. Discussed continuing diabetic shoes with diabetic inserts. He is instructed to not pick at any calluses in future as this led to his ulceration. 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 He also ordered an additional set of work boots through [employer] with additional custom inserts for offloading. Patient states he will pay for these [id number] for these additional shoes and inserts. He has been wearing the offloading inserts and reports they are comfortable and he can tell they are reducing pressure across the forefoot. Will pick pack worker new work boots with offloading inserts tomorrow. Discussed proper diabetic diet and tight glycemic control to continue to aid in healing of his ulceration. Discussed adequate protein intake to continue to aid in wound healing. Bhaskar supplementation also recommended to aid in wound healing. Last A1c 10/27/[address] Clement was 6.6%. Discussed continuing his proper diabetic diet to ensure good glycemic control. He does experience mendez phenomenon and they are working to achieve glycemic control. Discussed signs of infection today. He was instructed if he notices increasing redness about the ulcerative site that moves up onto the foot or up his leg, if he notices purulent drainage from the wound site, if he notices increasing foul odor from the wound, or if he develops fever greater than 101 degree, or nausea, or vomiting, or chills, that these are signs of a progressing infection and he should report to the ED to receive IV antibiotics. He voices understanding of this. The following work up and care recommendations were made: Dressing: Jessica, dry sterile dressing. Change dressing daily to subfourth metatarsal site Wash: Soap and water Tissue growth optimization: Jessica Offload: Plantar offloading padding and CAM boot right foot. Diabetic shoe gear with custom offloading inserts when not wearing CAM boot. Vascular: DP and PT pulses Palpable with adequate capillary fill time. Do not feel vascular status is impacting wound healing. Edema: No signs of pedal edema Infection: No signs of infection Pain: No pain secondary to diabetic peripheral polyneuropathy Host factors: DM type I with peripheral polyneuropathy, patient's himself as iatrogenic cause to ulcer, pressure I answered all the patient's questions. To return to the wound healing center in 2 weeks or call sooner if the patient has any questions or concerns.
== END 2024-01-11 23:59 | disposition home or self-care (01) ==
LOC: WC 09:15
PROVIDERS: PCP Internal Medicine; Referring Provider Student in an Organized Health Care Education/Training Program; Visit Provider Student in an Organized Health Care Education/Training Program
DX: E11.621 Type 2 diabetes mellitus with foot ulcer (principal); L97.512 Non-pressure chronic ulcer of other part of right foot with fat layer exposed; T87.89 Other complications of amputation stump; E11.42 Type 2 diabetes mellitus with diabetic polyneuropathy; Y83.5 Amputation of limb(s) as the cause of abnormal reaction of the patient, or of later complication, without mention of misadventure at the time of the procedure; E66.9 Obesity, unspecified; Z68.35 Body mass index [BMI] 35.0-35.9, adult
CPT/HCPCS: 11042

== ENCOUNTER 2024-02-05 09:15 | Outpatient (RCR) | payer MEDICAID, SELFPAY ==
[2024-01-12 00:21] VITALS: BP 138/75; PULSE 101; RESP 18; TEMP 36.4; BMI 35.9
[2024-01-22 09:11] VITALS: BP 112/76; PULSE 90; RESP 18; TEMP 36.3; BMI 35.9
--- NOTE | 2024-01-22 09:17 | PN.PCM_ITS ---
History of Present Illness Date of Service: 01/22/24 Chief Complaint: right plantar foot ulcer and right leg ulcer History of Wound: This 38-year-old diabetic male presents to the wound healing center for a subfourth metatarsal ulceration of the right foot. 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 He states he tried to care for the ulceration for roughly 2 to 3 weeks in which it was not healing and presented to office. In office he did undergo debridement of the site continued offloading in cam boot however did not obtain his dressing supplies and was performing daily changes of wet to dry gauze. He was referred to the wound care center for applications of advanced wound care product. He states no pain secondary to diabetic peripheral polyneuropathy. He denies N/V/F/chills. He denies further complaints. Subjective Subjective This is a 38-year-old male who presents to the wound care center for follow-up of a plantar fourth metatarsal ulceration of the right foot. He continues wearing his Diabetic shoes with custom offloading inserts. 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 Continues to change dressings daily and feels sites are improving. Still trying additional offloading padding below the fourth metatarsal head of the right foot as he feels the continues to walk on the outside of the foot. He denies constitutional symptoms. Denies further complaints. Objective Data Objective Data Vital Signs: Vital Signs Temp Pulse Resp BP 97.3 F L 90 18 112/76 01/22/24 09:11 01/22/24 09:11 01/22/24 09:11 01/22/24 09:11 Weight: 120.202 kg Body Mass Index (BMI) 35.9 Physical Exam Const alert, oriented x3 and no apparent distress General Appearance: cooperative HEENT normocephalic Eyes General Eye: normal appearance of both eyes Neck General: normal visual inspection Lymph Lymphatic: no lymphadenopathy noted and no lymphedema noted Resp normal respiratory effort Cardio regular rate and regular rhythm Extremity normal capillary refill, no joint enlargement and no pedal edema Extremity Narrative: Vascular: DP and PT pulses palpable right foot. Capillary fill time less than 4 seconds to digits right foot. No pedal edema is noted. Dermatological: Skin is mildly xerotic to the plantar aspect. There is a ulceration subfourth metatarsal head previously reopened with serosanguineous drainage and surrounding macerated skin, but there is noted improvement with continued use of new offloading inserts. Wound is epithelialized. Skin fissure subfourth digit of the right foot remains healed. Dorsal second digit fissure has healed. Plantar second digit fissure improving to the right foot. No signs of infection. No erythema, no purulent drainage, no malodor, no palpable fluctuance/bogginess noted, no visible abscess formation, no lymphangitic streaking. Subfourth metatarsal head left foot demonstrates hyperkeratosis with subdermal hemorrhaging, but improving with offloading insert. Neurologic: Decreased protective sensation bilateral foot secondary to diabetic peripheral polyneuropathy. Musculoskeletal: Muscle strength 5 of 5 age-appropriate. Partial fifth ray amputation is noted to the right foot. Decreased range of motion of the ankle joint in dorsiflexion with the knee extended without pain or crepitus. Decreased range of motion of the first metatarsophalangeal joint without pain or crepitus. Skin no rashes or lesions noted, skin turgor normal and no jaundice Neuro moves all extremities Debridement Note Debridement Note Wound debrided: Subfourth metatarsal head Laterality: Right Wound Grade/Stage: Reynoso stage I Type of Debridement: Excisional debridement Anesthesia Used: 5% Lidocaine Gel Depth: Down to and including healthy tissue and in the subcutaneous layer Percentage of wound debrided: 100 Instrument Used: #15 blade Tissue Removed: Fibrous, devitalized subcutaneous, biofilm, slough Severity: Fat Layer Exposed Amount of bleeding with debridement: Mild Bleeding Controlled with: Compression and gauze Patient tolerated procedure: Patient tolerated procedure well Post-Debridement Measurements and Additional Note: Post-Debridement Measurements/Treatment - Nurse 1 - General Ulcer Assessment Start: 01/22/24 09:10 Freq: Status: Active Protocol: LORI Activity Type Activity Date Activity User E-sign Co-sign Detail Recorded Client Recorded Date Recorded By Document 01/22/24 09:11 DENILSON [email or web address] 01/22/24 09:16 DL 01/22/24 09:11 - Today's Visit Information Type of service Follow-up Visit (Physician/[facility] [facility] ) Arrival Mode Ambulatory Transfer Assistance None Patient Identification Verified (Name & Yes ) Patient Requires Transmission-Based No Precautions Height and Weight Body Mass Index (BMI) 35.9 BMI Classification Obese Vital Signs Temperature (97.8 F-99.1 F) 97.3 F L Temperature Source Temporal Pulse Rate (60-100) 90 Pulse Location Monitor Respiratory Rate (12-18) 18 Respiratory rate source Observation Blood Pressure (90/60-120/80) 112/76 Blood Pressure Mean (mm Hg) 88 Source Monitor History Since Last Visit- (Skip if this is Patient's initial visit) Have you changed medications since your No last visit? Any new allergies or adverse reactions No Had a fall/change in ADL's that may No increase risk of falls Signs or symptoms of abuse and/or No neglect since last visit Have you been in the hospital since your No last visit? Has dressing in place as prescribed Yes Has compression in place as prescribed Yes Has offloadiing in place as prescribed N/A Experienced any changes in pain level or No management Left Footwear Custom Shoe Right Footwear Custom Shoe Pain Scale: 0-10 Numeric Is Patient Pain Free? Yes WC - Nurse 1 - General Ulcer Measurement Start: 01/22/24 09:10 Freq: Status: Active Protocol: Activity Type Activity Date Activity User E-sign Co-sign Detail Recorded Client Recorded Date Recorded By Document 01/22/24 09:11 DL [email or web address] 01/22/24 09:16 DL 01/22/24 09:11 Wound Center Nurse 1 #4 Lateral Right Plantar Foot -Current Size (cm) - Length 0.2 -Current Size (cm) - Width 0.6 -Current Size (cm) - Depth 0.3 -Total Square Cm 0.12 -Undermining/Tunneling Yes -Undermining/Tunneling Starts (O'clock 12 ) -Undermining/Tunneling Ends (O'clock) 5 -Maximum Distance (cm) 0.1 -Exudate Amt Medium -Exudate Type Serosanguineous -Wound Margin Distinct, Outline Attached -Texture (Yu-wound Skin Appearance) Assessed -Moisture (Yu-wound Skin Appearance) Assessed -Color (Yu-wound Skin Appearance) Assessed -Temperature (Yu-wound Skin No Abnormality Appearance) (Pt Warm) -Ulcer Cleansing Rinsed/ Irrigated with Saline -Foul Odor after Cleansing No -Anesthetic Used 5% Lidocaine Gel Assessment/Plan Assessment/Plan (1) Ulcer of right foot with fat layer exposed: CODE(S): L97.512 - Non-pressure chronic ulcer of other part of right foot with fat layer exposed (2) Type 1 diabetes mellitus with diabetic polyneuropathy: CODE(S): E10.42 - Type 1 diabetes mellitus with diabetic polyneuropathy (3) Diabetes mellitus with foot ulcer: CODE(S): E11.621 - Type 2 diabetes mellitus with foot ulcer; L97.509 - Non-pressure chronic ulcer of other part of unspecified foot with unspecified severity (4) Delayed wound healing: CODE(S): T14.8XXD - Other injury of unspecified body region, subsequent encounter (5) Obesity: CODE(S): E66.9 - Obesity, unspecified QUALIFIERS: Body mass index: BMI 34.0-34.9 Obesity classification: adult class 1 (BMI 30 - 34.9) Obesity type: due to excess calories Serious obesity comorbidity presence: with serious comorbidity Qualified Code(s): E66.09 - Other obesity due to excess calories; Z68.34 - Body mass index [BMI] 34.0-34.9, adult PLAN: Plan Patient seen and evaluated Second digit ulcerations to the dorsal aspect has healed and plantar aspect of the second digit have healed. No signs of infection Pre-debridement sub 4th: 0.4 cm x 0.4 cm x 0.1 cm Ulceration subfourth metatarsal head of the right foot did undergo debridement today as noted in clinical panel above. Postdebridement ulceration measures 0.5 cm x 0.5 cm x 0.1 cm. Jessica applied with DSD. He has completed all 10 applications of EpiFix graft. Wound is improving with little maceration and continued epithelialization but pressure remains a consistent problem. Dry sterile dressing applied to the right foot to pad and protect area. He is instructed to change dressing daily. Offloading pad was placed about the subfourth metatarsal head of the right foot today. There is continued improvement to all ulcerations today He does have hyperkeratosis sub 4th metatarsal head of the left foot with subdermal hemorrhaging. No signs of infection. Discussed continuing to pad and protect the area with a larger Band-Aid and is now in Diabetic Custom offloading inserts. Hyperkeratosis subfourth metatarsal head of the left foot did undergo sharp debridement with#15 blade today. This was performed without incident. Ulceration demonstrates increased in size versus previous visit. Recommended continued offloading in CAM boot/surgical shoe to the right foot with plantar offloading padding. Surgical shoe also offloaded so that he may wear this when getting up to go to the bathroom at night. Otherwise will remain in CAM boot with plantar offloading padding. Working again and wearing steel toe boots for work and thus needs continued offloading. Will wear Diabetic Custom offloading inserts. Discussed continuing diabetic shoes with diabetic inserts. He is instructed to not pick at any calluses in future as this led to his ulceration. 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 He also ordered an additional set of work boots through [employer] with additional custom inserts for offloading. Patient states he will pay for these [id number] for these additional shoes and inserts. He has been wearing the offloading inserts and reports they are comfortable and he can tell they are reducing pressure across the forefoot. States he did get the work boots with offloading inserts. Discussed with patient today his deforming force of the anterior tibial tendon leading to forefoot supinatus. Discussed resistance band training to strengthen opposing peroneal muscle group versus performing anterior tibial tendon lengthening vs Split Anterior Tibial Tendon Transfer. Patient will try resistance band training prior to surgical intervention. Discussed proper diabetic diet and tight glycemic control to continue to aid in healing of his ulceration. Discussed adequate protein intake to continue to aid in wound healing. Bhaskar supplementation also recommended to aid in wound healing. Last A1c 10/27/[address] Clement was 6.6%. Discussed continuing his proper diabetic diet to ensure good glycemic control. He does experience mendez phenomenon and they are working to achieve glycemic control. Discussed signs of infection today. He was instructed if he notices increasing redness about the ulcerative site that moves up onto the foot or up his leg, if he notices purulent drainage from the wound site, if he notices increasing foul odor from the wound, or if he develops fever greater than 101 degree, or nausea, or vomiting, or chills, that these are signs of a progressing infection and he should report to the ED to receive IV antibiotics. He voices understanding of this. The following work up and care recommendations were made: Dressing: Jessica, dry sterile dressing. Change dressing daily to subfourth metatarsal site Wash: Soap and water Tissue growth optimization: Jessica Offload: Plantar offloading padding and CAM boot right foot. Diabetic shoe gear with custom offloading inserts when not wearing CAM boot. Vascular: DP and PT pulses Palpable with adequate capillary fill time. Do not feel vascular status is impacting wound healing. Edema: No signs of pedal edema Infection: No signs of infection Pain: No pain secondary to diabetic peripheral polyneuropathy Host factors: DM type I with peripheral polyneuropathy, patient's himself as iatrogenic cause to ulcer, pressure I answered all the patient's questions. To return to the wound healing center in 2 weeks or call sooner if the patient has any questions or concerns.
[2024-02-05 09:18] VITALS: BP 135/73; PULSE 99; RESP 20; TEMP 37; BMI 35.9
--- NOTE | 2024-02-05 10:12 | PN.PCM_ITS ---
History of Present Illness Date of Service: 02/05/24 Chief Complaint: right plantar foot ulcer and right leg ulcer History of Wound: This 38-year-old diabetic male presents to the wound healing center for a subfourth metatarsal ulceration of the right foot. 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 He states he tried to care for the ulceration for roughly 2 to 3 weeks in which it was not healing and presented to office. In office he did undergo debridement of the site continued offloading in [facility] boot however did not obtain his dressing supplies and was performing daily changes of wet to dry gauze. He was referred to the wound care center for applications of advanced wound care product. He states no pain secondary to diabetic peripheral polyneuropathy. He denies N/V/F/chills. He denies further complaints. Subjective Subjective This is a 38-year-old male who presents to the wound care center for follow-up of a plantar fourth metatarsal ulceration of the right foot. He continues wearing his Diabetic shoes with custom offloading inserts. Continues to change dressings daily but states still having trouble obtaining proper offloading. He is working with resistance bands to increase strength to the lateral muscle group of the lower extremity. Still feels the continues to walk on the outside of the foot. He denies constitutional symptoms. Denies further complaints. Objective Data Objective Data Vital Signs: Vital Signs Temp Pulse Resp BP 98.6 F 99 20 H 135/73 H 02/05/24 09:18 02/05/24 09:18 02/05/24 09:18 02/05/24 09:18 Weight: 120.202 kg Body Mass Index (BMI) 35.9 Physical Exam Const alert, oriented x3 and no apparent distress General Appearance: cooperative HEENT normocephalic Eyes General Eye: normal appearance of both eyes Neck General: normal visual inspection Lymph Lymphatic: no lymphadenopathy noted and no lymphedema noted Resp normal respiratory effort Cardio regular rate and regular rhythm Extremity normal capillary refill, no joint enlargement and no pedal edema Extremity Narrative: Vascular: DP and PT pulses palpable right foot. Capillary fill time less than 4 seconds to digits right foot. No pedal edema is noted. Dermatological: Skin is mildly xerotic to the plantar aspect. There is a ulceration subfourth metatarsal head previously reopened with serosanguineous drainage and surrounding macerated skin, but there is noted improvement with continued use of new offloading inserts. Wound is epithelialized. Skin fissure subfourth digit of the right foot remains healed. Dorsal second digit fissure has healed. Plantar second digit fissure improving to the right foot. No signs of infection. No erythema, no purulent drainage, no malodor, no palpable fluctuance/bogginess noted, no visible abscess formation, no lymphangitic streaking. Subfourth metatarsal head left foot demonstrates hyperkeratosis with subdermal hemorrhaging, but improving with offloading insert. Neurologic: Decreased protective sensation bilateral foot secondary to diabetic peripheral polyneuropathy. Musculoskeletal: Muscle strength 5 of 5 age-appropriate. Partial fifth ray amputation is noted to the right foot. Decreased range of motion of the ankle joint in dorsiflexion with the knee extended without pain or crepitus. Decreased range of motion of the first metatarsophalangeal joint without pain or crepitus. Skin no rashes or lesions noted, skin turgor normal and no jaundice Neuro moves all extremities Debridement Note Debridement Note Wound debrided: Subfourth metatarsal head right foot Laterality: Right Wound Grade/Stage: Reynoso stage I Type of Debridement: Excisional debridement Anesthesia Used: 5% Lidocaine Gel Depth: Down to and including healthy tissue and in the subcutaneous layer Percentage of wound debrided: 100 Instrument Used: - (313 blade) Tissue Removed: Fibrous, devitalized subcutaneous, biofilm, slough Severity: Fat Layer Exposed Amount of bleeding with debridement: Mild Bleeding Controlled with: Compression and gauze Patient tolerated procedure: Patient tolerated procedure well Post-Debridement Measurements and Additional Note: Post-Debridement Measurements/Treatment - Nurse 1 - General Ulcer Assessment Start: 01/22/24 09:10 Freq: Status: Active Protocol: LORI Activity Type Activity Date Activity User E-sign Co-sign Detail Recorded Client Recorded Date Recorded By Document 01/22/24 09:11 DL [email or web address] 01/22/24 09:16 DL Document 02/05/24 09:18 DL [email or web address] 02/05/24 09:28 DL 01/22/24 02/05/24 09:11 09:18 - Today's Visit Information Type of service Follow-up Visit Nurse-only (Physician/SECURITY CONTROL ASSESSOR Visit ) Arrival Mode Ambulatory Ambulatory Transfer Assistance None None Patient Identification Verified (Name & Yes Yes ) Patient Requires Transmission-Based No No Precautions Height and Weight Body Mass Index (BMI) 35.9 35.9 BMI Classification Obese Obese Vital Signs Temperature (97.8 F-99.1 F) 97.3 F L 98.6 F Temperature Source Temporal Temporal Pulse Rate (60-100) 90 99 Pulse Location Monitor Respiratory Rate (12-18) 18 20 H Respiratory rate source Observation Observation Blood Pressure (90/60-120/80) 112/76 135/73 H Blood Pressure Mean (mm Hg) 88 93 Source Monitor Monitor History Since Last Visit- (Skip if this is Patient's initial visit) Have you changed medications since your No No last visit? Any new allergies or adverse reactions No No Had a fall/change in ADL's that may No No increase risk of falls Signs or symptoms of abuse and/or No No neglect since last visit Have you been in the hospital since your No No last visit? Has dressing in place as prescribed Yes Yes Has compression in place as prescribed Yes Yes Has offloadiing in place as prescribed N/A Yes Experienced any changes in pain level or No No management Left Footwear Custom Shoe Right Footwear Custom Shoe Custom Shoe Pain Scale: 0-10 Numeric Is Patient Pain Free? Yes Yes WC - Nurse 1 - General Ulcer Measurement Start: 01/22/24 09:10 Freq: Status: Active Protocol: Activity Type Activity Date Activity User E-sign Co-sign Detail Recorded Client Recorded Date Recorded By Document 01/22/24 09:11 DL [email or web address] 01/22/24 09:16 DL Document 02/05/24 09:18 DL [email or web address] 02/05/24 09:28 DL 01/22/24 02/05/24 09:11 09:18 Wound Center Nurse 1 #4 Lateral Right Plantar Foot -Current Size (cm) - Length 0.2 1 -Current Size (cm) - Width 0.6 0.4 -Current Size (cm) - Depth 0.3 0.4 -Total Square Cm 0.12 0.4 -Photo Taken Yes -Undermining/Tunneling Yes -Undermining/Tunneling Starts (O'clock 12 ) -Undermining/Tunneling Ends (O'clock) 5 -Maximum Distance (cm) 0.1 -Exudate Amt Medium Large -Exudate Type Serosanguineous Serosanguineous -Wound Margin Distinct, Distinct, Outline Outline Attached Attached -Granulation Amt Small (1-33%) -Granulation Quality Wilburn -Necrosis Amt Large (67-100%) -Necrotic Tissue Type Adherent Slough -Structure Exposed N/A -Texture (Yu-wound Skin Appearance) Assessed Scarring -Moisture (Yu-wound Skin Appearance) Assessed Maceration -Color (Yu-wound Skin Appearance) Assessed No Abnormality -Temperature (Yu-wound Skin No Abnormality No Abnormality Appearance) (Pt Warm) (Pt Warm) -Ulcer Cleansing Rinsed/ Soap and Water Irrigated with Saline -Foul Odor after Cleansing No No -Anesthetic Used 5% Lidocaine 5% Lidocaine Gel Gel WC - Nurse 2 - General Ulcer CM Notes Start: 01/22/24 09:10 Freq: Status: Active Protocol: Activity Type Activity Date Activity User E-sign Co-sign Detail Recorded Client Recorded Date Recorded By Document 01/22/24 09:19 [facility] [email or web address] 01/22/24 09:30 BMF Document 02/05/24 09:36 BM [email or web address] 02/05/24 09:48 BMF 01/22/24 02/05/24 09:19 09:36 Wound Center Nurse 2 #4 Lateral Right Plantar Foot -Time 09:20 09:37 -Correct Patient Yes Yes -Correct Side, Site, Position Yes Yes -Correct Procedure Yes Yes -Procedure Performed Yes Yes -Type of Procedure Debridement Debridement -Clinical Debridement Subcutaneous Subcutaneous -Tissue Removed Subcutaneous Subcutaneous -Post Debridement (cm) - Length 0.5 0.5 -Post Debridement (cm) - Width 0.5 0.8 -Post Debridement (cm) - Depth 0.1 0.2 -Total Square (Post) (cm) 0.25 0.40 -Area of Debridement (cm) - Length 0.5 0.5 -Area of Debridement (cm) - Width 0.5 0.8 -Total Square (Area) (cm) 0.25 0.40 -Tunneling No No -Undermining/Tunneling No -Circular Undermining No -Wound/Ulcer Outcome Not Healed Not Healed -Ulcer Cleansing Rinsed/ Rinsed/ Irrigated with Irrigated with Saline Saline -Foul Odor after Cleansing No No -Bioengineered Tissue No No -Bleeding Controlled with Pressure Pressure -Treatment Response Procedure Procedure Tolerated Well Tolerated Well -Offloading Yes -Type of Offloading Other -Other Type of Offloading custom shoes/ inserts -Debridement - Subq, 1st 20sq cm Yes Yes Pain Scale: 0-10 Numeric Is Patient Pain Free? Yes Yes - Nurse 3 - General Ulcer D/C NN Start: 01/22/24 09:10 Freq: Status: Active Protocol: Activity Type Activity Date Activity User E-sign Co-sign Detail Recorded Client Recorded Date Recorded By Document 01/22/24 09:35 BMF [email or web address] 01/22/24 09:36 BMF Document 02/05/24 10:02 KW l 02/05/24 10:03 KW 01/22/24 02/05/24 09:35 10:02 Wound Care Center Nurse 3 #4 Lateral Right Plantar Foot -Ulcer Cleansing Rinsed/ Irrigated with Saline -Foul Odor after Cleansing No -Primary Dressing Applied Mepilex Border, Aquacel AG 4x4 Promogran Jessica Matter -Primary Dressing Covered/Secured with Dry Gauze & Roll Gauze, Secured with Tape -Aquacel AG 4x4 1 -Mepilex Border 1 -Promogran Jessica Matter 1 Treatment Response Procedure Tolerated Well Pain Scale: 0-10 Numeric Is Patient Pain Free? Yes Yes - Visit Discharge Discharge Condition Stable Stable Ambulatory Status Ambulatory Ambulatory Transportation Private Auto Private Auto Medication Reconcilliation completed & No provided to patient/care provider Clinical Summary of Care Provided Yes Assessment/Plan Assessment/Plan (1) Ulcer of right foot with fat layer exposed: CODE(S): L97.512 - Non-pressure chronic ulcer of other part of right foot with fat layer exposed (2) Type 1 diabetes mellitus with diabetic polyneuropathy: CODE(S): E10.42 - Type 1 diabetes mellitus with diabetic polyneuropathy (3) Diabetes mellitus with foot ulcer: CODE(S): E11.621 - Type 2 diabetes mellitus with foot ulcer; L97.509 - Non-pressure chronic ulcer of other part of unspecified foot with unspecified severity (4) Delayed wound healing: CODE(S): T14.8XXD - Other injury of unspecified body region, subsequent encounter (5) Obesity: CODE(S): E66.9 - Obesity, unspecified QUALIFIERS: Body mass index: BMI 34.0-34.9 Obesity classification: adult class 1 (BMI 30 - 34.9) Obesity type: due to excess calories Serious obesity comorbidity presence: with serious comorbidity Qualified Code(s): E66.09 - Other obesity due to excess calories; Z68.34 - Body mass index [BMI] 34.0-34.9, adult PLAN: Plan Patient seen and evaluated Second digit ulcerations to the dorsal aspect has healed and plantar aspect of the second digit remain healed. No signs of infection Pre-debridement sub 4th: 0.4 cm x 0.7 cm x 0.1 cm Ulceration subfourth metatarsal head of the right foot did undergo debridement today as noted in clinical panel above. Postdebridement ulceration measures 0.4 cm x 0.8 cm x 0.1 cm. Jessica applied with DSD. He has completed all 10 applications of EpiFix graft. Wound is improving with little maceration and continued epithelialization but pressure remains a consistent problem. Dry sterile dressing applied to the right foot to pad and protect area. He is instructed to change dressing daily. Offloading pad was placed about the subfourth metatarsal head of the right foot today. Subfourth metatarsal head ulceration demonstrates little improvement and did increase slightly in size versus previous visit due to continued maceration around the wound and failure to change dressing properly. He does have hyperkeratosis sub 4th metatarsal head of the left foot with s ubdermal hemorrhaging. No signs of infection. Discussed continuing to pad and protect the area with a larger Band-Aid and is now in Diabetic Custom offloading inserts. Hyperkeratosis subfourth metatarsal head of the left foot did undergo sharp debridement with#15 blade today. This was performed without incident. Ulceration demonstrates increased in size versus previous visit. He reports difficulty changing dressings as he ran out of supplies. When asked if patient had gauze to change dressings he states yes but did not have padded bandages. Discussed that he can continue dry dressing changes over his Jessica. Recommended continued offloading in CAM boot/surgical shoe to the right foot with plantar offloading padding. Surgical shoe also offloaded so that he may wear this when getting up to go to the bathroom at night. Otherwise will remain in CAM boot with plantar offloading padding. Working again and wearing steel toe boots for work and thus needs continued offloading. Will wear Diabetic Custom offloading inserts. Discussed continuing diabetic shoes with diabetic inserts. He is instructed to not pick at any calluses in future as this led to his ulceration. He did go to the office 12/18/2023 to pickers material handlers the diabetic shoes with offloading inserts. He also ordered an additional set of work boots through [employer] with additional custom inserts for offloading. Patient states he will pay for these [id number] for these additional shoes and inserts. He has been wearing the offloading inserts and reports they are comfortable and he can tell they are reducing pressure across the forefoot. States he did get the work boots with offloading inserts. Discussed with patient today his deforming force of the anterior tibial tendon leading to forefoot supinatus. Discussed resistance band training to strengthen opposing peroneal muscle group versus performing anterior tibial tendon lengthening vs Split Anterior Tibial Tendon Transfer. Patient will continue to try resistance band training prior to surgical intervention. Discussed proper diabetic diet and tight glycemic control to continue to aid in healing of his ulceration. Discussed adequate protein intake to continue to aid in wound healing. Bhaskar supplementation also recommended to aid in wound healing. Last A1c 10/27/[address] Clement was 6.6%. Discussed continuing his proper diabetic diet to ensure good glycemic control. He does experience mendez phenomenon and they are working to achieve glycemic control. Discussed signs of infection today. He was instructed if he notices increasing redness about the ulcerative site that moves up onto the foot or up his leg, if he notices purulent drainage from the wound site, if he notices increasing foul odor from the wound, or if he develops fever greater than 101 degree, or nausea, or vomiting, or chills, that these are signs of a progressing infection and he should report to the ED to receive IV antibiotics. He voices understanding of this. The following work up and care recommendations were made: Dressing: Jessica, dry sterile dressing. Change dressing daily to subfourth metatarsal site Wash: Soap and water Tissue growth optimization: Jessica Offload: Plantar offloading padding and CAM boot right foot. Diabetic shoe gear with custom offloading inserts when not wearing CAM boot. Vascular: DP and PT pulses Palpable with adequate capillary fill time. Do not feel vascular status is impacting wound healing. Edema: No signs of pedal edema Infection: No signs of infection Pain: No pain secondary to diabetic peripheral polyneuropathy Host factors: DM type I with peripheral polyneuropathy, patient's himself as iatrogenic cause to ulcer, pressure I answered all the patient's questions. To return to the wound healing center in 1 week or call sooner if the patient has any questions or concerns.
--- NOTE | 2024-02-12 11:28 | WC ---
PHOTO 02/02/24 RIGHT PLANTAR
== END 2024-02-11 23:59 | disposition home or self-care (01) ==
LOC: WC 09:15
PROVIDERS: PCP Internal Medicine; Referring Provider Student in an Organized Health Care Education/Training Program; Visit Provider Student in an Organized Health Care Education/Training Program
DX: E10.621 Type 1 diabetes mellitus with foot ulcer (principal); L97.512 Non-pressure chronic ulcer of other part of right foot with fat layer exposed; E10.42 Type 1 diabetes mellitus with diabetic polyneuropathy; E66.09 Other obesity due to excess calories; Z68.34 Body mass index [BMI] 34.0-34.9, adult
CPT/HCPCS: 11042

== ENCOUNTER 2024-03-11 09:15 | Outpatient (RCR) | payer MEDICAID, SELFPAY ==
[2024-02-12 00:39] VITALS: BP 138/75; PULSE 101; RESP 18; TEMP 36.4; BMI 35.9
[2024-02-12 09:10] VITALS: BP 144/85; PULSE 87; RESP 18; TEMP 36.5; BMI 35.9
--- NOTE | 2024-02-12 13:33 | PN.PCM_ITS ---
History of Present Illness Date of Service: 02/12/24 Chief Complaint: right plantar foot ulcer and right leg ulcer History of Wound: This 38-year-old diabetic male presents to the wound healing center for a subfourth metatarsal ulceration of the right foot. 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 He states he tried to care for the ulceration for roughly 2 to 3 weeks in which it was not healing and presented to office. In office he did undergo debridement of the site continued offloading in [facility] boot however did not obtain his dressing supplies and was performing daily changes of wet to dry gauze. He was referred to the wound care center for applications of advanced wound care product. He states no pain secondary to diabetic peripheral polyneuropathy. He denies N/V/F/chills. He denies further complaints. 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 He continues wearing his Diabetic shoes with custom offloading inserts. Continues to change dressings daily but states still having trouble obtaining proper offloading. Continues working with resistance bands to increase strength to the lateral muscle group of the lower extremity. Still feels the continues to walk on the outside of the Right foot. States he is having pain with his pre- ulcerative lesion of the sub 4th metatarsal of the Left foot. He denies constitutional symptoms. Denies further complaints. Objective Data Objective Data Vital Signs: Vital Signs Temp Pulse Resp BP O2 Del Method 97.7 F L 87 18 144/85 H Room Air 02/12/24 09:10 02/12/24 09:10 02/12/24 09:10 02/12/24 09:10 02/12/24 09:10 Oxygen Delivery Method Room Air Weight: 120.202 kg Body Mass Index (BMI) 35.9 Physical Exam Const alert, oriented x3 and no apparent distress General Appearance: cooperative HEENT normocephalic Eyes General Eye: normal appearance of both eyes Neck General: normal visual inspection Lymph Lymphatic: no lymphadenopathy noted and no lymphedema noted Resp normal respiratory effort Cardio regular rate and regular rhythm Extremity normal capillary refill, no joint enlargement, no calf tenderness and no pedal edema Extremity Narrative: Vascular: DP and PT pulses palpable right foot. Capillary fill time less than 4 seconds to digits right foot. No pedal edema is noted. Dermatological: Skin is mildly xerotic to the plantar aspect. There is a ulceration subfourth metatarsal head with serosanguineous drainage and surroun ding macerated skin, but there is noted improvement with continued use of new offloading inserts. No signs of infection. No erythema, no purulent drainage, no malodor, no palpable fluctuance/bogginess noted, no visible abscess formation, no lymphangitic streaking. Subfourth metatarsal head left foot demonstrates hyperkeratosis with subdermal hemorrhaging of pre-ulcerative lesion, but improving with offloading insert. Neurologic: Decreased protective sensation bilateral foot secondary to diabetic peripheral polyneuropathy. Musculoskeletal: Muscle strength 5 of 5 age-appropriate. Partial fifth ray amputation is noted to the right foot. Decreased range of motion of the ankle joint in dorsiflexion with the knee extended without pain or crepitus. Decreased range of motion of the first metatarsophalangeal joint without pain or crepitus. Skin no rashes or lesions noted, skin turgor normal and no jaundice Neuro moves all extremities Debridement Note Debridement Note Wound debrided: Subfourth metatarsal right foot Laterality: Right Wound Grade/Stage: Reynoso stage I Type of Debridement: Excisional debridement Anesthesia Used: 5% Lidocaine Gel Depth: Down to and including healthy tissue and in the subcutaneous layer Percentage of wound debrided: 100 Instrument Used: - (313 blade) Tissue Removed: Fibrous, devitalized subcutaneous, biofilm, slough Severity: Fat Layer Exposed Amount of bleeding with debridement: Mild Bleeding Controlled with: Compression and gauze Patient tolerated procedure: Patient tolerated procedure well Post-Debridement Measurements and Additional Note: Post-Debridement Measurements/Treatment - Nurse 1 - General Ulcer Assessment Start: 02/12/24 09:10 Freq: Status: Active Protocol: LORI Activity Type Activity Date Activity User E-sign Co-sign Detail Recorded Client Recorded Date Recorded By Document 02/12/24 09:10 [facility] 02/12/24 09:14 KW 02/12/24 09:10 - Today's Visit Information Type of service Follow-up Visit (Physician/OFFICE SUPPORT ASSOCIATE ) Arrival Mode Ambulatory Patient Identification Verified (Name & Yes ) Height and Weight Body Mass Index (BMI) 35.9 BMI Classification Obese Vital Signs Temperature (97.8 F-99.1 F) 97.7 F L Temperature Source Temporal Pulse Rate (60-100) 87 Pulse Location Monitor Respiratory Rate (12-18) 18 Respiratory rate source Observation Oxygen Delivery Method Room Air Blood Pressure (90/60-120/80) 144/85 H Blood Pressure Mean (mm Hg) 104 Source Monitor Position Semi-Fowlers Blood Pressure Location Left Arm History Since Last Visit- (Skip if this is Patient's initial visit) Have you changed medications since your No last visit? Any new allergies or adverse reactions No Had a fall/change in ADL's that may No increase risk of falls Signs or symptoms of abuse and/or No neglect since last visit Have you been in the hospital since your No last visit? Has dressing in place as prescribed Yes Has compression in place as prescribed Yes Has offloadiing in place as prescribed N/A Experienced any changes in pain level or No management Left Footwear Regular Shoe Right Footwear Regular Shoe Pain Scale: 0-10 Numeric Is Patient Pain Free? Yes RENETTA - Nurse 1 - General Ulcer Measurement Start: 02/12/24 09:10 Freq: Status: Active Protocol: Activity Type Activity Date Activity User E-sign Co-sign Detail Recorded Client Recorded Date Recorded By Document 02/12/24 09:10 KW [facility] 02/12/24 09:14 KW 02/12/24 09:10 Wound Center Nurse 1 #4 Lateral Right Plantar Foot -Current Size (cm) - Length 0.5 -Current Size (cm) - Width 0.7 -Current Size (cm) - Depth 0.2 -Total Square Cm 0.35 -Exudate Amt Small -Exudate Type Serosanguineous -Wound Margin Distinct, Outline Attached -Granulation Amt Large (67-100%) -Necrosis Amt Small (1-33%) -Necrotic Tissue Type Adherent Slough -Texture (Yu-wound Skin Appearance) Callus -Moisture (Yu-wound Skin Appearance) Assessed -Color (Yu-wound Skin Appearance) Assessed -Temperature (Yu-wound Skin No Abnormality Appearance) (Pt Warm) -Tenderness on Palpation (Yu-wound No Skin Appearance) -Ulcer Cleansing Rinsed/ Irrigated with Saline -Foul Odor after Cleansing No -Anesthetic Used 5% Lidocaine Gel RENETTA - Nurse 2 - General Ulcer CM Notes Start: 02/12/24 09:10 Freq: Status: Active Protocol: Activity Type Activity Date Activity User E-sign Co-sign Detail Recorded Client Recorded Date Recorded By Document 02/12/24 09:24 [facility] [id number] 02/12/24 09:39 [facility] 02/12/24 09:24 Wound Center Nurse 2 -Time 09:32 -Correct Patient Yes -Correct Side, Site, Position Yes -Correct Procedure Yes -Procedure Performed Yes -Type of Procedure Debridement -Clinical Debridement Subcutaneous -Tissue Removed Subcutaneous -Post Debridement (cm) - Length 0.4 -Post Debridement (cm) - Width 0.4 -Post Debridement (cm) - Depth 0.1 -Total Square (Post) (cm) 0.16 -Area of Debridement (cm) - Length 0.4 -Area of Debridement (cm) - Width 0.4 -Total Square (Area) (cm) 0.16 -Tunneling No -Undermining/Tunneling No -Circular Undermining No -Wound/Ulcer Outcome Not Healed -Ulcer Cleansing Rinsed/ Irrigated with Saline -Foul Odor after Cleansing No -Bioengineered Tissue No -Bleeding Controlled with Pressure,Silver Nitrate -Treatment Response Procedure Tolerated Well -Offloading Yes -Type of Offloading Other -Other Type of Offloading custom shoe inserts -Debridement - Subq, 1st 20sq cm Yes Pain Scale: 0-10 Numeric Is Patient Pain Free? Yes - Nurse 3 - General Ulcer D/C NN Start: 02/12/24 09:10 Freq: Status: Active Protocol: Activity Type Activity Date Activity User E-sign Co-sign Detail Recorded Client Recorded Date Recorded By Document 02/12/24 09:39 [facility] [id number] 02/12/24 09:40 [facility] 02/12/24 09:39 Wound Care Center Nurse 3 #4 Lateral Right Plantar Foot -Ulcer Cleansing Rinsed/ Irrigated with Saline -Foul Odor after Cleansing No -Primary Dressing Applied AMD Dressing 4x4,Collagen Powder ($) -Other Dressing abd -Primary Dressing Covered/Secured with Secured with Tape -AMD Dressing 4x4 2 Treatment Response Procedure Tolerated Well Pain Scale: 0-10 Numeric Is Patient Pain Free? Yes - Visit Discharge Discharge Condition Stable Ambulatory Status Ambulatory Transportation Private Auto Additional Wound Wound debrided: Subfourth metatarsal left foot Laterality: Left Wound Grade/Stage: Reynoso stage 0 Type of Debridement: Selective debridement Anesthesia Used: - (No anesthetic required) Depth: Down to and including healthy tissue Percentage of wound debrided: 100 Instrument Used: - (313 blade) Tissue Removed: Hyperkeratotic tissue and nonviable tissue Severity: Limited To Skin Breakdown Amount of bleeding with debridement: None Patient tolerated procedure: Patient tolerated procedure well Assessment/Plan Assessment/Plan (1) Type 1 diabetes mellitus with diabetic polyneuropathy: CODE(S): E10.42 - Type 1 diabetes mellitus with diabetic polyneuropathy (2) Ulcer of right foot with fat layer exposed: CODE(S): L97.512 - Non-pressure chronic ulcer of other part of right foot with fat layer exposed (3) Non-pressure chronic ulcer of other part of left foot limited to breakdown of skin: CODE(S): L97.521 - Non-pressure chronic ulcer of other part of left foot limited to breakdown of skin (4) Diabetes mellitus with foot ulcer: CODE(S): E11.621 - Type 2 diabetes mellitus with foot ulcer; L97.509 - Non-pressure chronic ulcer of other part of unspecified foot with unspecified severity (5) Delayed wound healing: CODE(S): T14.8XXD - Other injury of unspecified body region, subsequent encounter (6) Obesity: CODE(S): E66.9 - Obesity, unspecified QUALIFIERS: Obesity type: due to excess calories Obesity classification: adult class 1 (BMI 30 - 34.9) Serious obesity comorbidity presence: with serious comorbidity Body mass index: BMI 34.0-34.9 Qualified Code(s): E66.09 - Other obesity due to excess calories; Z68.34 - Body mass index [BMI] 34.0-34.9, adult PLAN: Plan Patient seen and evaluated Second digit ulcerations to the dorsal aspect has healed and plantar aspect of the second digit remain healed. No signs of infection Pre-debridement sub 4th Right foot: 0.3 cm x 0.3 cm x 0.1 cm; Sub 4th preulcerative lesion Left foot 1.0cm x 1.0cm Ulceration subfourth metatarsal head of the right foot did undergo debridement today as noted in clinical panel above. Postdebridement ulceration measures 0.4 cm x 0.4 cm x 0.1 cm. Collagen powder and PHMB dressing applied to the ulcerative site. He has completed all 10 applications of EpiFix graft. Wound is improving with little maceration and continued epithelialization but pressure remains a consistent problem. He is instructed to change dressing daily. Offloading pad was placed about the subfourth metatarsal head of the right foot today. Subfourth metatarsal head ulceration demonstrates some improvement and did increase slightly in size versus previous visit due to continued maceration ar ound the wound and failure to change dressing properly. He does have hyperkeratosis sub 4th metatarsal head of the left foot with subdermal hemorrhaging. No signs of infection. Discussed continuing to pad and protect the area with a larger Band-Aid and is now in Diabetic Custom offloading inserts. Hyperkeratosis subfourth metatarsal head of the left foot did undergo sharp debridement with#313 blade today down to the level of healthy tissue as stated in clinical pannel above. This was performed without incident. Recommended continued offloading in CAM boot/surgical shoe to the right foot w ith plantar offloading padding. Surgical shoe also offloaded so that he may wear this when getting up to go to the bathroom at night. Otherwise will remain in CAM boot with plantar offloading padding. Working again and wearing steel toe boots for work and thus needs continued offloading. Will wear Diabetic Custom offloading inserts. Discussed continuing diabetic shoes with diabetic inserts. He is instructed to not pick at any calluses in future as this led to his ulceration. Discussed with patient his deforming force of the anterior tibial tendon leading to forefoot supinatus. Discussed resistance band training to strengthen opposing peroneal muscle group versus performing anterior tibial tendon lengthening vs Split Anterior Tibial Tendon Transfer. Patient will continue to try resistance band training prior to surgical intervention. Discussed possible surgical intervention of 4th metatarsal head excision of the Right foot. Discussed proper diabetic diet and tight glycemic control to continue to aid in healing of his ulceration. Discussed adequate protein intake to continue to aid in wound healing. Bhaskar supplementation also recommended to aid in wound healing. Last A1c 10/27/[address] Clement was 6.6%. Discussed continuing his proper diabetic diet to ensure good glycemic control. He does experience mendez phenomenon and they are working to achieve glycemic control. Discussed signs of infection today. He was instructed if he notices increasing redness about the ulcerative site that moves up onto the foot or up his leg, if he notices purulent drainage from the wound site, if he notices increasing foul odor from the wound, or if he develops fever greater than 101 degree, or nausea, or vomiting, or chills, that these are signs of a progressing infection and he should report to the ED to receive IV antibiotics. He voices understanding of this. The following work up and care recommendations were made: Dressing: Jessica, dry sterile dressing. Change dressing daily to subfourth metatarsal site Wash: Soap and water Tissue growth optimization: Jessica Offload: Plantar offloading padding and CAM boot right foot. Diabetic shoe gear with custom offloading inserts when not wearing CAM boot. Vascular: DP and PT pulses Palpable with adequate capillary fill time. Do not feel vascular status is impacting wound healing. Edema: No signs of pedal edema Infection: No signs of infection Pain: No pain secondary to diabetic peripheral polyneuropathy Host factors: DM type I with peripheral polyneuropathy, patient's himself as iatrogenic cause to ulcer, pressure I answered all the patient's questions. To return to the wound healing center in 1 week or call sooner if the patient has any questions or concerns.
[2024-02-19 09:07] VITALS: BP 120/78; PULSE 84; RESP 16; TEMP 36.1; BMI 35.9
--- NOTE | 2024-02-19 09:41 | PCM.WC.PN ---
History of Present Illness Date of Service: 02/19/24 Chief Complaint: right plantar foot ulcer and right leg ulcer History of Wound: This 38-year-old diabetic male presents to the wound healing center for a subfourth metatarsal ulceration of the right foot. 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 He states he tried to care for the ulceration for roughly 2 to 3 weeks in which it was not healing and presented to office. In office he did undergo debridement of the site continued offloading in [facility] boot however did not obtain his dressing supplies and was performing daily changes of wet to dry gauze. He was referred to the wound care center for applications of advanced wound care product. He states no pain secondary to diabetic peripheral polyneuropathy. He denies N/V/F/chills. He denies further complaints. 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 He continues wearing his Diabetic shoes with custom offloading inserts. Continues working with resistance bands to increase strength to the lateral muscle group of the lower extremity. States change in dressing to powder is helping. States he is ready to move forward for surgery on the Right foot. He denies constitutional symptoms. Denies further complaints. Objective Data Objective Data Vital Signs: Vital Signs Temp Pulse Resp BP O2 Del Method 96.9 F L 84 16 120/78 Room Air 02/19/24 09:07 02/19/24 09:07 02/19/24 09:07 02/19/24 09:07 02/12/24 09:10 Oxygen Delivery Method Room Air Weight: 120.202 kg Body Mass Index (BMI) 35.9 Physical Exam Const alert, oriented x3 and no apparent distress General Appearance: cooperative HEENT normocephalic Eyes General Eye: normal appearance of both eyes Neck General: normal visual inspection Lymph Lymphatic: no lymphadenopathy noted and no lymphedema noted Resp normal respiratory effort Cardio regular rate and regular rhythm Extremity normal capillary refill, no joint enlargement, no calf tenderness and no pedal edema Extremity Narrative: Vascular: DP and PT pulses palpable right foot. Capillary fill time less than 4 seconds to digits right foot. No pedal edema is noted. Dermatological: Skin is mildly xerotic to the plantar aspect. There is a ulceration subfourth metatarsal head with serosanguineous drainage and surrounding macerated skin, but there is noted improvement with continued use of new offloading inserts. No signs of infection. No erythema, no purulent drainage, no malodor, no palpable fluctuance/bogginess noted, no visible abscess formation, no lymphangitic streaking. Subfourth metatarsal head left foot demonstrates hyperkeratosis with subdermal hemorrhaging of pre-ulcerative lesion, but improving with offloading insert. Neurologic: Decreased protective sensation bilateral foot secondary to diabetic peripheral polyneuropathy. Musculoskeletal: Muscle strength 5 of 5 age-appropriate. Partial fifth ray amputation is noted to the right foot. Decreased range of motion of the ankle joint in dorsiflexion with the knee extended without pain or crepitus. Decreased range of motion of the first metatarsophalangeal joint without pain or crepitus. Skin no rashes or lesions noted, skin turgor normal and no jaundice Neuro moves all extremities Debridement Note Debridement Note Wound debrided: Subfourth metatarsal head right foot Laterality: Right Type of Debridement: Excisional debridement Anesthesia Used: 5% Lidocaine Gel Depth: Down to and including healthy tissue and in the subcutaneous layer Percentage of wound debrided: 100 Instrument Used: #15 blade Tissue Removed: Fibrous, devitalized subcutaneous, biofilm, slough Severity: Fat Layer Exposed Amount of bleeding with debridement: Mild Bleeding Controlled with: Compression and gauze Patient tolerated procedure: Patient tolerated procedure well Post-Debridement Measurements and Additional Note: Post-Debridement Measurements/Treatment - Nurse 1 - General Ulcer Assessment Start: 02/12/24 09:10 Freq: Status: Active Protocol: LORI Activity Type Activity Date Activity User E-sign Co-sign Detail Recorded Client Recorded Date Recorded By Document 02/12/24 09:10 KW [facility] 02/12/24 09:14 KW Document 02/19/24 09:07 02/19/24 09:18 CP 02/12/24 02/19/24 09:10 09:07 - Today's Visit Information Type of service Follow-up Visit Follow-up Visit (Physician/EMR TRAINER (Physician/EMR TRAINER ) ) Arrival Mode Ambulatory Ambulatory Patient Identification Verified (Name & Yes Yes ) Patient Requires Transmission-Based No Precautions Finger Stick Blood Sugar(mg/dl) (if 74 indicated): Height and Weight Body Mass Index (BMI) 35.9 35.9 BMI Classification Obese Obese Vital Signs Temperature (97.8 F-99.1 F) 97.7 F L 96.9 F L Temperature Source Temporal Temporal Pulse Rate (60-100) 87 84 Pulse Location Monitor Monitor Respiratory Rate (12-18) 18 16 Respiratory rate source Observation Observation Oxygen Delivery Method Room Air Blood Pressure (90/60-120/80) 144/85 H 120/78 Blood Pressure Mean (mm Hg) 104 92 Source Monitor Monitor Position Semi-Fowlers Sitting Blood Pressure Location Left Arm Left Arm History Since Last Visit- (Skip if this is Patient's initial visit) Have you changed medications since your No No last visit? Any new allergies or adverse reactions No No Had a fall/change in ADL's that may No No increase risk of falls Signs or symptoms of abuse and/or No No neglect since last visit Have you been in the hospital since your No No last visit? Has dressing in place as prescribed Yes Yes Has compression in place as prescribed Yes N/A Has offloadiing in place as prescribed N/A Yes Experienced any changes in pain level or No No management Left Footwear Regular Shoe Right Footwear Regular Shoe Pain Scale: 0-10 Numeric Is Patient Pain Free? Yes Yes WC - Nurse 1 - General Ulcer Measurement Start: 02/12/24 09:10 Freq: Status: Active Protocol: Activity Type Activity Date Activity User E-sign Co-sign Detail Recorded Client Recorded Date Recorded By Document 02/12/24 09:10 KW [facility] 02/12/24 09:14 KW Document 02/19/24 09:07 CP 02/19/24 09:18 CP 02/12/24 02/19/24 09:10 09:07 Wound Center Nurse 1 #4 Lateral Right Plantar Foot -Current Size (cm) - Length 0.5 0.5 -Current Size (cm) - Width 0.7 0.5 -Current Size (cm) - Depth 0.2 0.2 -Total Square Cm 0.35 0.25 -Photo Taken No -Epithelialization None Present -Tunneling No -Undermining/Tunneling No -Circular Undermining No -Exudate Amt Small Small -Exudate Type Serosanguineous Serosanguineous -Wound Margin Distinct, Thickened Outline Attached -Granulation Amt Large (67-100%) Large (67-100%) -Granulation Quality Ventress -Slough/Fibrin No -Necrosis Amt Small (1-33%) -Necrotic Tissue Type Adherent Slough -Structure Exposed N/A -Texture (Yu-wound Skin Appearance) Callus Callus -Moisture (Yu-wound Skin Appearance) Assessed No Abnormality -Color (Yu-wound Skin Appearance) Assessed No Abnormality -Temperature (Yu-wound Skin No Abnormality No Abnormality Appearance) (Pt Warm) (Pt Warm) -Tenderness on Palpation (Yu-wound No No Skin Appearance) -Ulcer Cleansing Rinsed/ Soap and Water Irrigated with Saline -Foul Odor after Cleansing No -Anesthetic Used 5% Lidocaine 5% Lidocaine Gel Gel WC - Nurse 2 - General Ulcer CM Notes Start: 02/12/24 09:10 Freq: Status: Active Protocol: Activity Type Activity Date Activity User E-sign Co-sign Detail Recorded Client Recorded Date Recorded By Document 02/12/24 09:24 [facility] [id number] 02/12/24 09:39 [facility] Document 02/19/24 09:29 JF 000 02/19/24 09:33 JF 02/12/24 02/19/24 09:24 09:29 Wound Center Nurse 2 #4 Lateral Right Plantar Foot -Time 09:32 09:32 -Correct Patient Yes Yes -Correct Side, Site, Position Yes Yes -Correct Procedure Yes Yes -Procedure Performed Yes Yes -Type of Procedure Debridement Debridement -Clinical Debridement Subcutaneous Subcutaneous -Tissue Removed Subcutaneous Subcutaneous -Post Debridement (cm) - Length 0.4 0.5 -Post Debridement (cm) - Width 0.4 0.5 -Post Debridement (cm) - Depth 0.1 0.1 -Total Square (Post) (cm) 0.16 0.25 -Area of Debridement (cm) - Length 0.4 0.5 -Area of Debridement (cm) - Width 0.4 0.5 -Total Square (Area) (cm) 0.16 0.25 -Tunneling No No -Undermining/Tunneling No No -Circular Undermining No No -Wound/Ulcer Outcome Not Healed Not Healed -Ulcer Cleansing Rinsed/ Rinsed/ Irrigated with Irrigated with Saline Saline -Foul Odor after Cleansing No No -Bioengineered Tissue No No -Bleeding Controlled with Pressure,Silver Pressure Nitrate -Treatment Response Procedure Procedure Tolerated Well Tolerated Well -Offloading Yes No -Type of Offloading Other -Other Type of Offloading custom shoe inserts -Debridement - Subq, 1st 20sq cm Yes Yes Pain Scale: 0-10 Numeric Is Patient Pain Free? Yes Yes - Nurse 3 - General Ulcer D/C NN Start: 02/12/24 09:10 Freq: Status: Active Protocol: Activity Type Activity Date Activity User E-sign Co-sign Detail Recorded Client Recorded Date Recorded By Document 02/12/24 09:39 [facility] [id number] 02/12/24 09:40 [facility] 02/12/24 09:39 Wound Care Center Nurse 3 #4 Lateral Right Plantar Foot -Ulcer Cleansing Rinsed/ Irrigated with Saline -Foul Odor after Cleansing No -Primary Dressing Applied AMD Dressing 4x4,Collagen Powder ($) -Other Dressing abd -Primary Dressing Covered/Secured with Secured with Tape -AMD Dressing 4x4 2 Treatment Response Procedure Tolerated Well Pain Scale: 0-10 Numeric Is Patient Pain Free? Yes - Visit Discharge Discharge Condition Stable Ambulatory Status Ambulatory Transportation Private Auto Assessment/Plan Assessment/Plan (1) Type 1 diabetes mellitus with diabetic polyneuropathy: CODE(S): E10.42 - Type 1 diabetes mellitus with diabetic polyneuropathy (2) Ulcer of right foot with fat layer exposed: CODE(S): L97.512 - Non-pressure chronic ulcer of other part of right foot with fat layer exposed (3) Non-pressure chronic ulcer of other part of left foot limited to breakdown of skin: CODE(S): L97.521 - Non-pressure chronic ulcer of other part of left foot limited to breakdown of skin (4) Diabetes mellitus with foot ulcer: CODE(S): E11.621 - Type 2 diabetes mellitus with foot ulcer; L97.509 - Non-pressure chronic ulcer of other part of unspecified foot with unspecified severity (5) Delayed wound healing: CODE(S): T14.8XXD - Other injury of unspecified body region, subsequent encounter (6) Obesity: CODE(S): E66.9 - Obesity, unspecified QUALIFIERS: Obesity type: due to excess calories Obesity classification: adult class 1 (BMI 30 - 34.9) Serious obesity comorbidity presence: with serious comorbidity Body mass index: BMI 34.0-34.9 Qualified Code(s): E66.09 - Other obesity due to excess calories; Z68.34 - Body mass index [BMI] 34.0-34.9, adult PLAN: Plan Patient seen and evaluated Second digit ulcerations to the dorsal aspect has healed and plantar aspect of the second digit remain healed. No signs of infection Pre-debridement sub 4th Right foot: 0.4 cm x 0.4 cm x 0.1 cm; Sub 4th preulcerative lesion Left foot 1.0cm x 1.0cm Ulceration subfourth metatarsal head of the right foot did undergo debridement today as noted in clinical panel above. Postdebridement ulceration measures 0.5 cm x 0.5 cm x 0.1 cm. Collagen powder and PHMB dressing applied to the ulcerative site. He has completed all 10 applications of EpiFix graft. Wound is improving with little maceration and continued epithelialization but pressure remains a consistent problem. He is instructed to change dressing daily. Offloading pad was placed about the subfourth metatarsal head of the right foot today. Subfourth metatarsal head ulceration demonstrates some improvement and did increase slightly in size versus previous visit but maceration is improving about the ulcer site. Discussed surgical intervention of 4th metatarsal head excision of the right foot. He states today he is willing to move forward with the intervention. He does have hyperkeratosis sub 4th metatarsal head of the left foot with subdermal hemorrhaging. No signs of infection. Discussed continuing to pad and protect the area with a larger Band-Aid and is now in Diabetic Custom offloading inserts. Hyperkeratosis subfourth metatarsal head of the left foot did undergo sharp debridement with#313 blade today removing hyperkeratosis to healthy tissue. This was performed without incident. Recommended continued offloading in CAM boot/surgical shoe to the right foot with plantar offloading padding. Surgical shoe also offloaded so that he may wear this when getting up to go to the bathroom at night. Otherwise will remain in CAM boot with plantar offloading padding. Working again and wearing steel toe boots for work and thus needs continued offloading. Will wear Diabetic Custom offloading inserts. Discussed continuing diabetic shoes with diabetic inserts. He is instructed to not pick at any calluses in future as this led to his ulceration. Discussed with patient his deforming force of the anterior tibial tendon leading to forefoot supinatus. Discussed resistance band training to strengthen opposing peroneal muscle group versus performing anterior tibial tendon lengthening vs Split Anterior Tibial Tendon Transfer. Patient will continue to try resistance band training prior to surgical intervention. Discussed possible surgical intervention of 4th metatarsal head excision of the Right foot. Discussed proper diabetic diet and tight glycemic control to continue to aid in healing of his ulceration. Discussed adequate protein intake to continue to aid in wound healing. Bhaskar supplementation also recommended to aid in wound healing. Last A1c 10/27/[address] Clement was 6.6%. Discussed continuing his proper diabetic diet to ensure good glycemic control. He does experience mendez phenomenon and they are working to achieve glycemic control. Discussed signs of infection today. He was instructed if he notices increasing redness about the ulcerative site that moves up onto the foot or up his leg, if he notices purulent drainage from the wound site, if he notices increasing foul odor from the wound, or if he develops fever greater than 101 degree, or nausea, or vomiting, or chills, that these are signs of a progressing infection and he should report to the ED to receive IV antibiotics. He voices understanding of this. The following work up and care recommendations were made: Dressing: Jessica, dry sterile dressing. Change dressing daily to subfourth metatarsal site Wash: Soap and water Tissue growth optimization: Jessica Offload: Plantar offloading padding and CAM boot right foot. Diabetic shoe gear with custom offloading inserts when not wearing CAM boot. Vascular: DP and PT pulses Palpable with adequate capillary fill time. Do not feel vascular status is impacting wound healing. Edema: No signs of pedal edema Infection: No signs of infection Pain: No pain secondary to diabetic peripheral polyneuropathy Host factors: DM type I with peripheral polyneuropathy, patient's himself as iatrogenic cause to ulcer, pressure I answered all the patient's questions. To return to the wound healing center in 2 weeks or call sooner if the patient has any questions or concerns.
[2024-03-04 09:06] VITALS: BP 99/78; PULSE 87; RESP 16; TEMP 35.9; BMI 35.9
--- NOTE | 2024-03-04 09:21 | PN.PCM_ITS ---
History of Present Illness Date of Service: 03/04/24 Chief Complaint: right plantar foot ulcer and right leg ulcer History of Wound: This 38-year-old diabetic male presents to the wound healing center for a subfourth metatarsal ulceration of the right foot. 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 He states he tried to care for the ulceration for roughly 2 to 3 weeks in which it was not healing and presented to office. In office he did undergo debridement of the site continued offloading in [facility] boot however did not obtain his dressing supplies and was performing daily changes of wet to dry gauze. He was referred to the wound care center for applications of advanced wound care product. He states no pain secondary to diabetic peripheral polyneuropathy. He denies N/V/F/chills. He denies further complaints. 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 He continues wearing his Diabetic shoes with custom offloading inserts. Continues working with resistance bands to increase strength to the lateral muscle group of the lower extremity. Continues dressing changes with powder and foam dressing. States he had to quit his new job after injury which has kept him off his feet. He denies constitutional symptoms. Denies further complaints. Objective Data Objective Data Vital Signs: Vital Signs Temp Pulse Resp BP O2 Del Method 96.7 F L 87 16 99/78 Room Air 03/04/24 09:06 03/04/24 09:06 03/04/24 09:06 03/04/24 09:06 03/04/24 09:06 Oxygen Delivery Method Room Air Weight: 120.202 kg Body Mass Index (BMI) 35.9 Physical Exam Const alert, oriented x3 and no apparent distress General Appearance: cooperative HEENT normocephalic Eyes General Eye: normal appearance of both eyes Neck General: normal visual inspection Lymph Lymphatic: no lymphadenopathy noted and no lymphedema noted Resp normal respiratory effort Cardio regular rate and regular rhythm Extremity normal capillary refill, no joint enlargement, no calf tenderness and no pedal edema Extremity Narrative: Vascular: DP and PT pulses palpable right foot. Capillary fill time less than 4 seconds to digits right foot. No pedal edema is noted. Dermatological: Skin is mildly xerotic to the plantar aspect. There is a ulceration subfourth metatarsal head with serosanguineous drainage and surrounding macerated skin, but there is noted improvement with continued use of new offloading inserts. No signs of infection. No erythema, no purulent drainage, no malodor, no palpable fluctuance/bogginess noted, no visible abscess formation, no lymphangitic streaking. Subfourth metatarsal head left foot demonstrates hyperkeratosis with subdermal hemorrhaging of pre-ulcerative lesion, but improving with offloading insert. Neurologic: Decreased protective sensation bilateral foot secondary to diabetic peripheral polyneuropathy. Musculoskeletal: Muscle strength 5 of 5 age-appropriate. Partial fifth ray amputation is noted to the right foot. Decreased range of motion of the ankle joint in dorsiflexion with the knee extended without pain or crepitus. Decreased range of motion of the first metatarsophalangeal joint without pain or crepitus. Skin no rashes or lesions noted, skin turgor normal and no jaundice Neuro moves all extremities Debridement Note Debridement Note Wound debrided: Subfourth metatarsal head right foot Laterality: Right Wound Grade/Stage: Reynoso stage I Type of Debridement: Excisional debridement Anesthesia Used: 5% Lidocaine Gel Depth: Down to and including healthy tissue and in the subcutaneous layer Percentage of wound debrided: 100 Instrument Used: #15 blade Tissue Removed: Fibrous, devitalized subcutaneous, biofilm, slough Severity: Fat Layer Exposed Amount of bleeding with debridement: Mild Bleeding Controlled with: Compression and gauze Patient tolerated procedure: Patient tolerated procedure well Post-Debridement Measurements and Additional Note: Post-Debridement Measurements/Treatment - Nurse 1 - General Ulcer Assessment Start: 02/12/24 09:10 Freq: Status: Active Protocol: [email or web address].[email or web address] Activity Type Activity Date Activity User E-sign Co-sign Detail Recorded Client Recorded Date Recorded By Document 02/12/24 09:10 KW [facility] 02/12/24 09:14 KW Document 02/19/24 09:07 CP 02/19/24 09:18 CP Document 03/04/24 09:06 [facility] [id number] 03/04/24 09:08 [facility] 02/12/24 02/19/24 03/04/24 09:10 09:07 09:06 - Today's Visit Information Type of service Follow-up Visit Follow-up Visit Follow-up Visit (Physician/BALANCE BRIDGE INSPECTOR (Physician/BALANCE BRIDGE INSPECTOR (Physician/BALANCE BRIDGE INSPECTOR ) ) ) Arrival Mode Ambulatory Ambulatory Ambulatory Patient Identification Verified (Name & Yes Yes Yes ) Patient Requires Transmission-Based No No Precautions Finger Stick Blood Sugar(mg/dl) (if 74 indicated): Height and Weight Body Mass Index (BMI) 35.9 35.9 35.9 BMI Classification Obese Obese Obese Vital Signs Temperature (97.8 F-99.1 F) 97.7 F L 96.9 F L 96.7 F L Temperature Source Temporal Temporal Oral Pulse Rate (60-100) 87 84 87 Pulse Location Monitor Monitor Monitor Respiratory Rate (12-18) 18 16 16 Respiratory rate source Observation Observation Observation Oxygen Delivery Method Room Air Room Air Blood Pressure (90/60-120/80) 144/85 H 120/78 99/78 Blood Pressure Mean (mm Hg) 104 92 85 Source Monitor Monitor Monitor Position Semi-Fowlers Sitting Blood Pressure Location Left Arm Left Arm History Since Last Visit- (Skip if this is Patient's initial visit) Have you changed medications since your No No No last visit? Any new allergies or adverse reactions No No No Had a fall/change in ADL's that may No No No increase risk of falls Signs or symptoms of abuse and/or No No No neglect since last visit Have you been in the hospital since your No No No last visit? Has dressing in place as prescribed Yes Yes Yes Has compression in place as prescribed Yes N/A Has offloadiing in place as prescribed N/A Yes Yes Experienced any changes in pain level or No No management Left Footwear Regular Shoe Custom Shoe Right Footwear Regular Shoe Custom Shoe Pain Scale: 0-10 Numeric Is Patient Pain Free? Yes Yes Yes WC - Nurse 1 - General Ulcer Measurement Start: 02/12/24 09:10 Freq: Status: Active Protocol: Activity Type Activity Date Activity User E-sign Co-sign Detail Recorded Client Recorded Date Recorded By Document 02/12/24 09:10 KW [facility] 02/12/24 09:14 KW Document 02/19/24 09:07 CP 02/19/24 09:18 CP Document 03/04/24 09:06 [facility] [id number] 03/04/24 09:08 [facility] 08/08/0602/19/24 03/04/24 09:10 09:07 09:06 Wound Center Nurse 1 #4 Lateral Right Plantar Foot -Combined with other wound No -Current Size (cm) - Length 0.5 0.5 0.4 -Current Size (cm) - Width 0.7 0.5 0.7 -Current Size (cm) - Depth 0.2 0.2 0.4 -Total Square Cm 0.35 0.25 0.28 -Date of Last Picture (Recall this 03/04/24 field) -Photo Taken No Yes -Epithelialization None Present -Tunneling No No -Undermining/Tunneling No No -Circular Undermining No No -Exudate Amt Small Small Medium -Exudate Type Serosanguineous Serosanguineous Serosanguineous -Wound Margin Distinct, Thickened Distinct, Outline Outline Attached Attached -Granulation Amt Large (67-100%) Large (67-100%) None Present (0 %) -Granulation Quality Hickman -Slough/Fibrin No No -Necrosis Amt Small (1-33%) None Present (0 %) -Necrotic Tissue Type Adherent Slough -Structure Exposed N/A -Texture (Yu-wound Skin Appearance) Callus Callus Assessed -Moisture (Yu-wound Skin Appearance) Assessed No Abnormality Assessed -Color (Yu-wound Skin Appearance) Assessed No Abnormality Assessed -Temperature (Yu-wound Skin No Abnormality No Abnormality No Abnormality Appearance) (Pt Warm) (Pt Warm) (Pt Warm) -Tenderness on Palpation (Yu-wound No No No Skin Appearance) -Ulcer Cleansing Rinsed/ Soap and Water Rinsed/ Irrigated with Irrigated with Saline Saline -Foul Odor after Cleansing No No -Anesthetic Used 5% Lidocaine 5% Lidocaine 5% Lidocaine Gel Gel Gel WC - Nurse 2 - General Ulcer CM Notes Start: 02/12/24 09:10 Freq: Status: Active Protocol: Activity Type Activity Date Activity User E-sign Co-sign Detail Recorded Client Recorded Date Recorded By Document 02/12/24 09:24 BM 10.10.25.7 02/12/24 09:39 BMF Document 02/19/24 09:29 JF 000 02/19/24 09:33 JF 02/12/24 02/19/24 09:24 09:29 Wound Center Nurse 2 #4 Lateral Right Plantar Foot -Time 09:32 09:32 -Correct Patient Yes Yes -Correct Side, Site, Position Yes Yes -Correct Procedure Yes Yes -Procedure Performed Yes Yes -Type of Procedure Debridement Debridement -Clinical Debridement Subcutaneous Subcutaneous -Tissue Removed Subcutaneous Subcutaneous -Post Debridement (cm) - Length 0.4 0.5 -Post Debridement (cm) - Width 0.4 0.5 -Post Debridement (cm) - Depth 0.1 0.1 -Total Square (Post) (cm) 0.16 0.25 -Area of Debridement (cm) - Length 0.4 0.5 -Area of Debridement (cm) - Width 0.4 0.5 -Total Square (Area) (cm) 0.16 0.25 -Tunneling No No -Undermining/Tunneling No No -Circular Undermining No No -Wound/Ulcer Outcome Not Healed Not Healed -Ulcer Cleansing Rinsed/ Rinsed/ Irrigated with Irrigated with Saline Saline -Foul Odor after Cleansing No No -Bioengineered Tissue No No -Bleeding Controlled with Pressure,Silver Pressure Nitrate -Treatment Response Procedure Procedure Tolerated Well Tolerated Well -Offloading Yes No -Type of Offloading Other -Other Type of Offloading custom shoe inserts -Debridement - Subq, 1st 20sq cm Yes Yes Pain Scale: 0-10 Numeric Is Patient Pain Free? Yes Yes - Nurse 3 - General Ulcer D/C NN Start: 02/12/24 09:10 Freq: Status: Active Protocol: Activity Type Activity Date Activity User E-sign Co-sign Detail Recorded Client Recorded Date Recorded By Document 02/12/24 09:39 [facility] 10.10.25.7 02/12/24 09:40 [facility] Document 02/19/24 09:48 CP 02/19/24 09:49 CP 02/12/24 02/19/24 09:39 09:48 Wound Care Center Nurse 3 #4 Lateral Right Plantar Foot -Ulcer Cleansing Rinsed/ Rinsed/ Irrigated with Irrigated with Saline Saline -Foul Odor after Cleansing No No -Primary Dressing Applied AMD Dressing Mepilex Border 4x4,Collagen Powder ($) -Other Dressing abd puracol powder -Primary Dressing Covered/Secured with Secured with Secured with Tape Tape -AMD Dressing 4x4 2 -Mepilex Border 1 Treatment Response Procedure Procedure Tolerated Well Tolerated Well Pain Scale: 0-10 Numeric Is Patient Pain Free? Yes Yes - Visit Discharge Discharge Condition Stable Stable Ambulatory Status Ambulatory Ambulatory Transportation Private Auto Private Auto Clinical Summary of Care Provided Yes Assessment/Plan Assessment/Plan (1) Type 1 diabetes mellitus with diabetic polyneuropathy: CODE(S): E10.42 - Type 1 diabetes mellitus with diabetic polyneuropathy (2) Ulcer of right foot with fat layer exposed: CODE(S): L97.512 - Non-pressure chronic ulcer of other part of right foot with fat layer exposed (3) Non-pressure chronic ulcer of other part of left foot limited to breakdown of skin: CODE(S): L97.521 - Non-pressure chronic ulcer of other part of left foot limited to breakdown of skin (4) Diabetes mellitus with foot ulcer: CODE(S): E11.621 - Type 2 diabetes mellitus with foot ulcer; L97.509 - Non-pressure chronic ulcer of other part of unspecified foot with unspecified severity (5) Delayed wound healing: CODE(S): T14.8XXD - Other injury of unspecified body region, subsequent encounter (6) Obesity: CODE(S): E66.9 - Obesity, unspecified QUALIFIERS: Obesity type: due to excess calories Obesity c lassification: adult class 1 (BMI 30 - 34.9) Serious obesity comorbidity presence: with serious comorbidity Body mass index: BMI 34.0-34.9 Qualified Code(s): E66.09 - Other obesity due to excess calories; Z68.34 - Body mass index [BMI] 34.0-34.9, adult PLAN: Plan Patient seen and evaluated Second digit ulcerations to the dorsal aspect has healed and plantar aspect of the second digit remain healed. No signs of infection Pre-debridement sub 4th Right foot: 0.4 cm x 0.4 cm x 0.1 cm; Sub 4th preulcerative lesion Left foot 1.0cm x 1.0cm Ulceration subfourth metatarsal head of the right foot did undergo debridement today as noted in clinical panel above. Postdebridement ulceration measures 0.5 cm x 0.5 cm x 0.1 cm. Collagen powder and PHMB dressing applied to the ulcerative site. He has completed all 10 applications of EpiFix graft. Wound is improving with little maceration and continued epithelialization but pressure remains a consistent problem. He is instructed to change dressing daily. Offloading pad was placed about the subfourth metatarsal head of the right foot today. Subfourth metatarsal head ulceration demonstrates no change in size versus previous visit but maceration continues to improve about the ulcer site. Discussed surgical intervention of 4th metatarsal head excision of the right foot and currently awaiting surgical date. He states today he is still willing to move forward with the intervention. States recently quit job due to an injury and he does feel that being off work is helping his feet as he notes less callus, less drainage, and improving discomfort. He does have hyperkeratosis sub 4th metatarsal head of the left foot with subdermal hemorrhaging. No signs of infection. Discussed continuing to pad and protect the area with a larger Band-Aid and continuing diabetic Custom offloading inserts. Hyperkeratosis subfourth metatarsal head of the left foot did undergo sharp debridement with#15 blade today removing hyperkeratosis to healthy tissue. This was performed without incident. Recommended continued offloading in CAM boot/surgical shoe to the right foot with plantar offloading padding. Surgical shoe also offloaded so that he may wear this when getting up to go to the bathroom at night. Otherwise will remain in CAM boot with plantar offloading padding. Working again and wearing steel toe boots for work and thus needs continued offloading. Will wear Diabetic Custom offloading inserts. Discussed continuing diabetic shoes with diabetic inserts. He is instructed to not pick at any calluses in future as this led to his ulceration. Discussed with patient his deforming force of the anterior tibial tendon leading to forefoot supinatus. Continue resistance band training to strengthen opposing peroneal muscle group. Previously discussed performing anterior tibial tendon lengthening vs Split Anterior Tibial Tendon Transfer. Patient will continue resistance band training prior to surgical intervention. Discussed surgical intervention of 4th metatarsal head excision of the Right foot and he would like to go this route. Discussed proper diabetic diet and tight glycemic control to continue to aid in healing of his ulceration. Discussed adequate protein intake to continue to aid in wound healing. Bhaskar supplementation also recommended to aid in wound healing. Last A1c 10/27/[address] Clement was 6.6%. Discussed continuing his proper diabetic diet to ensure good glycemic control. He does experience mendez phenomenon and they are working to achieve glycemic control. Discussed signs of infection today. He was instructed if he notices increasing redness about the ulcerative site that moves up onto the foot or up his leg, if he notices purulent drainage from the wound site, if he notices increasing foul odor from the wound, or if he develops fever greater than 101 degree, or nausea, or vomiting, or chills, that these are signs of a progressing infection and he should report to the ED to receive IV antibiotics. He voices understanding of this. The following work up and care recommendations were made: Dressing: Jessica, dry sterile dressing. Change dressing daily to subfourth metatarsal site Wash: Soap and water Tissue growth optimization: Jessica Offload: Plantar offloading padding and CAM boot right foot. Diabetic shoe gear with custom offloading inserts when not wearing CAM boot. Vascular: DP and PT pulses Palpable with adequate capillary fill time. Do not feel vascular status is impacting wound healing. Edema: No signs of pedal edema Infection: No signs of infection Pain: No pain secondary to diabetic peripheral polyneuropathy Host factors: DM type I with peripheral polyneuropathy, patient's himself as iatrogenic cause to ulcer, pressure I answered all the patient's questions. To return to the wound healing center in 1 week or call sooner if the patient has any questions or concerns.
--- NOTE | 2024-03-04 13:52 | WC ---
PHOTO 03/04/24 RIGHT FOOT
[2024-03-11 09:12] VITALS: BP 117/77; PULSE 89; RESP 18; TEMP 36.3; BMI 35.9
--- NOTE | 2024-03-11 09:22 | PCM.WC.PN ---
History of Present Illness Date of Service: 03/11/24 Chief Complaint: right plantar foot ulcer and right leg ulcer History of Wound: This 38-year-old diabetic male presents to the wound healing center for a subfourth metatarsal ulceration of the right foot. 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 He states he tried to care for the ulceration for roughly 2 to 3 weeks in which it was not healing and presented to office. In office he did undergo debridement of the site continued offloading in [facility] boot however did not obtain his dressing supplies and was performing daily changes of wet to dry gauze. He was referred to the wound care center for applications of advanced wound care product. He states no pain secondary to diabetic peripheral polyneuropathy. He denies N/V/F/chills. He denies further complaints. 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 He continues wearing his Diabetic shoes with custom offloading inserts. Continues dressing changes with powder and foam dressing. Continues home exercises. Still staying off feet as much as possible. States overall he is feeling better with less pain to foot. He denies constitutional symptoms. Denies further complaints. Objective Data Objective Data Vital Signs: Vital Signs Temp Pulse Resp BP O2 Del Method 97.4 F L 89 18 117/77 Room Air 03/11/24 09:12 03/11/24 09:12 03/11/24 09:12 03/11/24 09:12 03/04/24 09:06 Oxygen Delivery Method Room Air Weight: 120.202 kg Body Mass Index (BMI) 35.9 Physical Exam Const alert, oriented x3 and no apparent distress General Appearance: cooperative HEENT normocephalic Eyes General Eye: normal appearance of both eyes Neck General: normal visual inspection Lymph Lymphatic: no lymphadenopathy noted and no lymphedema noted Resp normal respiratory effort Cardio regular rate and regular rhythm Extremity normal capillary refill, no joint enlargement, no calf tenderness and no pedal edema Extremity Narrative: Vascular: DP and PT pulses palpable right foot. Capillary fill time less than 4 seconds to digits right foot. No pedal edema is noted. Dermatological: Skin is mildly xerotic to the plantar aspect. There is a ulceration subfourth metatarsal head with serosanguineous drainage and surrounding macerated skin, but there is noted improvement with continued use of new offloading inserts. No signs of infection. No erythema, no purulent drainage, no malodor, no palpable fluctuance/bogginess noted, no visible abscess formation, no lymphangitic streaking. Subfourth metatarsal head left foot demonstrates hyperkeratosis with subdermal hemorrhaging of pre-ulcerative lesion, but improving with offloading insert. Neurologic: Decreased protective sensation bilateral foot secondary to diabetic peripheral polyneuropathy. Musculoskeletal: Muscle strength 5 of 5 age-appropriate. Partial fifth ray amputation is noted to the right foot. Decreased range of motion of the ankle joint in dorsiflexion with the knee extended without pain or crepitus. Decreased range of motion of the first metatarsophalangeal joint without pain or crepitus. Skin no rashes or lesions noted, skin turgor normal and no jaundice Neuro moves all extremities Debridement Note Debridement Note Wound debrided: Subfourth metatarsal head right foot Laterality: Right Wound Grade/Stage: Reynoso stage I Type of Debridement: Excisional debridement Anesthesia Used: 5% Lidocaine Gel Depth: Down to and including healthy tissue and in the subcutaneous layer Percentage of wound debrided: 100 Instrument Used: #15 blade Tissue Removed: Fibrous, devitalized subcutaneous, biofilm, slough Severity: Fat Layer Exposed Amount of bleeding with debridement: Mild Bleeding Controlled with: Compression and gauze Patient tolerated procedure: Patient tolerated procedure well Post-Debridement Measurements and Additional Note: Post-Debridement Measurements/Treatment RENETTA - Nurse 1 - General Ulcer Assessment Start: 02/12/24 09:10 Freq: Status: Active Protocol: LORI Activity Type Activity Date Activity User E-sign Co-sign Detail Recorded Client Recorded Date Recorded By Document 02/12/24 09:10 KW [facility] 02/12/24 09:14 KW Document 02/19/24 09:07 CP 02/19/24 09:18 CP Document 03/04/24 09:06 [facility] [id number] 03/04/24 09:08 BM Document 03/11/24 09:12 DL [id number] 03/11/24 09:19 DL 02/12/24 02/19/24 03/04/24 09:10 09:07 09:06 - Today's Visit Information Type of service Follow-up Visit Follow-up Visit Follow-up Visit (Physician/CALIBRATION SPECIALIST (Physician/CALIBRATION SPECIALIST (Physician/CALIBRATION SPECIALIST ) ) ) Arrival Mode Ambulatory Ambulatory Ambulatory Transfer Assistance Patient Identification Verified (Name & Yes Yes Yes ) Patient Requires Transmission-Based No No Precautions Finger Stick Blood Sugar(mg/dl) (if 74 indicated): Blood Sugar Height and Weight Body Mass Index (BMI) 35.9 35.9 35.9 BMI Classification Obese Obese Obese Vital Signs Temperature (97.8 F-99.1 F) 97.7 F L 96.9 F L 96.7 F L Temperature Source Temporal Temporal Oral Pulse Rate (60-100) 87 84 87 Pulse Location Monitor Monitor Monitor Respiratory Rate (12-18) 18 16 16 Respiratory rate source Observation Observation Observation Oxygen Delivery Method Room Air Room Air Blood Pressure (90/60-120/80) 144/85 H 120/78 99/78 Blood Pressure Mean (mm Hg) 104 92 85 Source Monitor Monitor Monitor Position Semi-Fowlers Sitting Blood Pressure Location Left Arm Left Arm History Since Last Visit- (Skip if this is Patient's initial visit) Have you changed medications since your No No No last visit? Any new allergies or adverse reactions No No No Had a fall/change in ADL's that may No No No increase risk of falls Signs or symptoms of abuse and/or No No No neglect since last visit Have you been in the hospital since your No No No last visit? Has dressing in place as prescribed Yes Yes Yes Has compression in place as prescribed Yes N/A Has offloadiing in place as prescribed N/A Yes Yes Experienced any changes in pain level or No No management Left Footwear Regular Shoe Custom Shoe Right Footwear Regular Shoe Custom Shoe Pain Scale: 0-10 Numeric Is Patient Pain Free? Yes Yes Yes 03/11/24 09:12 - Today's Visit Information Type of service Follow-up Visit (Physician/CALIBRATION SPECIALIST ) Arrival Mode Ambulatory Transfer Assistance None Patient Identification Verified (Name & Yes ) Patient Requires Transmission-Based No Precautions Finger Stick Blood Sugar(mg/dl) (if 54 indicated): Blood Sugar Stated by Patient Height and Weight Body Mass Index (BMI) 35.9 BMI Classification Obese Vital Signs Temperature (97.8 F-99.1 F) 97.4 F L Temperature Source Temporal Pulse Rate (60-100) 89 Pulse Location Monitor Respiratory Rate (12-18) 18 Respiratory rate source Observation Oxygen Delivery Method Blood Pressure (90/60-120/80) 117/77 Blood Pressure Mean (mm Hg) 90 Source Monitor Position Blood Pressure Location History Since Last Visit- (Skip if this is Patient's initial visit) Have you changed medications since your No last visit? Any new allergies or adverse reactions No Had a fall/change in ADL's that may No increase risk of falls Signs or symptoms of abuse and/or No neglect since last visit Have you been in the hospital since your No last visit? Has dressing in place as prescribed Yes Has compression in place as prescribed N/A Has offloadiing in place as prescribed Yes Experienced any changes in pain level or No management Left Footwear Right Footwear Pain Scale: 0-10 Numeric Is Patient Pain Free? Yes WC - Nurse 1 - General Ulcer Measurement Start: 02/12/24 09:10 Freq: Status: Active Protocol: Activity Type Activity Date Activity User E-sign Co-sign Detail Recorded Client Recorded Date Recorded By Document 02/12/24 09:10 KW [facility] 02/12/24 09:14 KW Document 02/19/24 09:07 CP 02/19/24 09:18 CP Document 03/04/24 09:06 [facility] [id number] 03/04/24 09:08 [facility] Document 03/11/24 09:12 DL [id number] 03/11/24 09:19 DL 02/12/24 02/19/24 03/04/24 09:10 09:07 09:06 Wound Center Nurse 1 #4 Lateral Right Plantar Foot -Combined with other wound No -Current Size (cm) - Length 0.5 0.5 0.4 -Current Size (cm) - Width 0.7 0.5 0.7 -Current Size (cm) - Depth 0.2 0.2 0.4 -Total Square Cm 0.35 0.25 0.28 -Date of Last Picture (Recall this 03/04/24 field) -Photo Taken No Yes -Epithelialization None Present -Tunneling No No -Undermining/Tunneling No No -Circular Undermining No No -Exudate Amt Small Small Medium -Exudate Type Serosanguineous Serosanguineous Serosanguineous -Wound Margin Distinct, Thickened Distinct, Outline Outline Attached Attached -Granulation Amt Large (67-100%) Large (67-100%) None Present (0 %) -Granulation Quality [place] -Slough/Fibrin No No -Necrosis Amt Small (1-33%) None Present (0 %) -Necrotic Tissue Type Adherent Slough -Structure Exposed N/A -Texture (Yu-wound Skin Appearance) Callus Callus Assessed -Moisture (Yu-wound Skin Appearance) Assessed No Abnormality Assessed -Color (Yu-wound Skin Appearance) Assessed No Abnormality Assessed -Temperature (Yu-wound Skin No Abnormality No Abnormality No Abnormality Appearance) (Pt Warm) (Pt Warm) (Pt Warm) -Tenderness on Palpation (Yu-wound No No No Skin Appearance) -Ulcer Cleansing Rinsed/ Soap and Water Rinsed/ Irrigated with Irrigated with Saline Saline -Foul Odor after Cleansing No No -Anesthetic Used 5% Lidocaine 5% Lidocaine 5% Lidocaine Gel Gel Gel 03/11/24 09:12 Wound Center Nurse 1 #4 Lateral Right Plantar Foot -Combined with other wound -Current Size (cm) - Length 0.4 -Current Size (cm) - Width 0.6 -Current Size (cm) - Depth 0.1 -Total Square Cm 0.24 -Date of Last Picture (Recall this field) -Photo Taken Yes -Epithelialization -Tunneling -Undermining/Tunneling -Circular Undermining -Exudate Amt Small -Exudate Type Serosanguineous -Wound Margin Distinct, Outline Attached -Granulation Amt Large (67-100%) -Granulation Quality [place] -Slough/Fibrin -Necrosis Amt None Present (0 %) -Necrotic Tissue Type -Structure Exposed N/A -Texture (Yu-wound Skin Appearance) Scarring -Moisture (Yu-wound Skin Appearance) No Abnormality -Color (Yu-wound Skin Appearance) No Abnormality -Temperature (Yu-wound Skin No Abnormality Appearance) (Pt Warm) -Tenderness on Palpation (Yu-wound Skin Appearance) -Ulcer Cleansing Rinsed/ Irrigated with Saline -Foul Odor after Cleansing No -Anesthetic Used 5% Lidocaine Gel WC - Nurse 2 - General Ulcer CM Notes Start: 02/12/24 09:10 Freq: Status: Active Protocol: Activity Type Activity Date Activity User E-sign Co-sign Detail Recorded Client Recorded Date Recorded By Document 02/12/24 09:24 BMF [id number] 02/12/24 09:39 [facility] Document 02/19/24 09:29 [id number] 02/19/24 09:33 Document 03/04/24 09:09 [facility] [id number] 03/04/24 09:25 [facility] 02/12/24 02/19/24 03/04/24 09:24 09:29 09:09 Wound Center Nurse 2 #4 Lateral Right Plantar Foot -Time 09:32 09:32 09:11 -Correct Patient Yes Yes Yes -Correct Side, Site, Position Yes Yes Yes -Correct Procedure Yes Yes Yes -Procedure Performed Yes Yes Yes -Type of Procedure Debridement Debridement Debridement -Clinical Debridement Subcutaneous Subcutaneous Subcutaneous -Tissue Removed Subcutaneous Subcutaneous Subcutaneous -Post Debridement (cm) - Length 0.4 0.5 0.5 -Post Debridement (cm) - Width 0.4 0.5 0.5 -Post Debridement (cm) - Depth 0.1 0.1 0.1 -Total Square (Post) (cm) 0.16 0.25 0.25 -Area of Debridement (cm) - Length 0.4 0.5 0.5 -Area of Debridement (cm) - Width 0.4 0.5 0.5 -Total Square (Area) (cm) 0.16 0.25 0.25 -Tunneling No No No -Undermining/Tunneling No No No -Circular Undermining No No No -Wound/Ulcer Outcome Not Healed Not Healed Not Healed -Ulcer Cleansing Rinsed/ Rinsed/ Rinsed/ Irrigated with Irrigated with Irrigated with Saline Saline Saline -Foul Odor after Cleansing No No No -Bioengineered Tissue No No No -Bleeding Controlled with Pressure,Silver Pressure Pressure Nitrate -Treatment Response Procedure Procedure Procedure Tolerated Well Tolerated Well Tolerated Well -Offloading Yes No Yes -Type of Offloading Other Other -Other Type of Offloading custom shoe custom shoes/ inserts inserts -Debridement - Subq, 1st 20sq cm Yes Yes Yes Pain Scale: 0-10 Numeric Is Patient Pain Free? Yes Yes Yes WC - Nurse 3 - General Ulcer D/C NN Start: 02/12/24 09:10 Freq: Status: Active Protocol: Activity Type Activity Date Activity User E-sign Co-sign Detail Recorded Client Recorded Date Recorded By Document 02/12/24 09:39 [facility] 10.10.25.7 02/12/24 09:40 BMF Document 02/19/24 09:48 CP 02/19/24 09:49 CP Document 03/04/24 09:25 [facility] [id number] 03/04/24 09:27 [facility] 02/12/24 02/19/24 03/04/24 09:39 09:48 09:25 Wound Care Center Nurse 3 #4 Lateral Right Plantar Foot -Ulcer Cleansing Rinsed/ Rinsed/ Rinsed/ Irrigated with Irrigated with Irrigated with Saline Saline Saline -Foul Odor after Cleansing No No No -Primary Dressing Applied AMD Dressing Mepilex Border Collagen Powder 4x4,Collagen ($) Powder ($) -Other Dressing abd puracol powder amd foam drsg -Primary Dressing Covered/Secured with Secured with Secured with Dry Gauze, Tape Tape Secured with Tape -AMD Dressing 4x4 2 -Mepilex Border 1 Treatment Response Procedure Procedure Procedure Tolerated Well Tolerated Well Tolerated Well Pain Scale: 0-10 Numeric Is Patient Pain Free? Yes Yes Yes WC - Visit Discharge Discharge Condition Stable Stable Stable Ambulatory Status Ambulatory Ambulatory Ambulatory Transportation Private Auto Private Auto Private Auto Clinical Summary of Care Provided Yes Assessment/Plan Assessment/Plan (1) Type 1 diabetes mellitus with diabetic polyneuropathy: CODE(S): E10.42 - Type 1 diabetes mellitus with diabetic polyneuropathy (2) Ulcer of right foot with fat layer exposed: CODE(S): L97.512 - Non-pressure chronic ulcer of other part of right foot with fat layer exposed (3) Non-pressure chronic ulcer of other part of left foot limited to breakdown of skin: CODE(S): L97.521 - Non-pressure chronic ulcer of other part of left foot limited to breakdown of skin (4) Diabetes mellitus with foot ulcer: CODE(S): E11.621 - Type 2 diabetes mellitus with foot ulcer; L97.509 - Non-pressure chronic ulcer of other part of unspecified foot with unspecified severity (5) Delayed wound healing: CODE(S): T14.8XXD - Other injury of unspecified body region, subsequent encounter (6) Obesity: CODE(S): E66.9 - Obesity, unspecified QUALIFIERS: Body mass index: BMI 34.0-34.9 Obesity classification: adult class 1 (BMI 30 - 34.9) Obesity type: due to excess calories Serious obesity comorbidity presence: with serious comorbidity Qualified Code(s): E66.09 - Other obesity due to excess calories; Z68.34 - Body mass index [BMI] 34.0-34.9, adult PLAN: Plan Patient seen and evaluated Pre-debridement sub 4th Right foot: 0.3 cm x 0.4 cm x 0.1 cm; Sub 4th preulcerative lesion Left foot 0.5 cm x 0.5 cm Ulceration subfourth metatarsal head of the right foot did undergo debridement today as noted in clinical panel above. Postdebridement ulceration measures 0.4 cm x 0.5 cm x 0.1 cm. Collagen powder and PHMB dressing applied to the ulcerative site. He has completed all 10 applications of EpiFix graft. Wound is improving with little maceration and continued epithelialization but pressure remains a consistent problem. He is instructed to change dressing daily. Offloading pad was placed about the subfourth metatarsal head of the right foot today. Subfourth metatarsal head ulceration demonstrates small reduction in size versus previous visit. Maceration continues to improve about the ulcer site. Discussed surgical intervention of 4th metatarsal head excision of the right foot and currently awaiting surgical date. He states today he is still willing to move forward with the intervention. Has quit job due to an injury and he does feel that being off work is helping his feet as he notes less callus about the ulcer, less drainage, and improving discomfort. He does have hyperkeratosis sub 4th metatarsal head of the left foot with subdermal hemorrhaging. No signs of infection. Discussed continuing to pad and protect the area with a larger Band-Aid and continuing diabetic Custom offloading inserts. Hyperkeratosis subfourth metatarsal head of the left foot did undergo sharp debridement with#15 blade today removing hyperkeratosis to healthy tissue. This was performed without incident. Recommended continued offloading in CAM boot/surgical shoe to the right foot with plantar offloading padding. Surgical shoe also offloaded so that he may wear this when getting up to go to the bathroom at night. Otherwise will remain in CAM boot with plantar offloading padding. Working again and wearing steel toe boots for work and thus needs continued offloading. Will wear Diabetic Custom offloading inserts. Discussed continuing diabetic shoes with diabetic inserts. He is instructed to not pick at any calluses in future as this led to his ulceration. Discussed with patient his deforming force of the anterior tibial tendon leading to forefoot supinatus. Continue resistance band training to strengthen opposing peroneal muscle group. Previously discussed performing anterior tibial tendon lengthening vs Split Anterior Tibial Tendon Transfer. Patient will continue resistance band training prior to surgical intervention. Discussed surgical intervention of 4th metatarsal head excision of the Right foot and he would like to go this route. Discussed proper diabetic diet and tight glycemic control to continue to aid in healing of his ulceration. Discussed adequate protein intake to continue to aid in wound healing. Bhaskar supplementation also recommended to aid in wound healing. Last A1c 10/27/[address] Clement was 6.6%. Discussed continuing his proper diabetic diet to ensure good glycemic control. He does experience mendez phenomenon and they are working to achieve glycemic control. Discussed signs of infection today. He was instructed if he notices increasing redness about the ulcerative site that moves up onto the foot or up his leg, if he notices purulent drainage from the wound site, if he notices increasing foul odor from the wound, or if he develops fever greater than 101 degree, or nausea, or vomiting, or chills, that these are signs of a progressing infection and he should report to the ED to receive IV antibiotics. He voices understanding of this. The following work up and care recommendations were made: Dressing: Jessica, dry sterile dressing. Change dressing daily to subfourth metatarsal site Wash: Soap and water Tissue growth optimization: Jessica Offload: Plantar offloading padding and CAM boot right foot. Diabetic shoe gear with custom offloading inserts when not wearing CAM boot. Vascular: DP and PT pulses Palpable with adequate capillary fill time. Do not feel vascular status is impacting wound healing. Edema: No signs of pedal edema Infection: No signs of infection Pain: No pain secondary to diabetic peripheral polyneuropathy Host factors: DM type I with peripheral polyneuropathy, patient's himself as iatrogenic cause to ulcer, pressure I answered all the patient's questions. To return to the wound healing center in 1 week or call sooner if the patient has any questions or concerns.
== END 2024-03-13 23:59 | disposition home or self-care (01) ==
LOC: WC 09:15
PROVIDERS: PCP Internal Medicine; Referring Provider Student in an Organized Health Care Education/Training Program; Visit Provider Student in an Organized Health Care Education/Training Program
DX: E10.621 Type 1 diabetes mellitus with foot ulcer (principal); L97.412 Non-pressure chronic ulcer of right heel and midfoot with fat layer exposed; L97.521 Non-pressure chronic ulcer of other part of left foot limited to breakdown of skin; E10.42 Type 1 diabetes mellitus with diabetic polyneuropathy; Z79.4 Long term (current) use of insulin; E66.09 Other obesity due to excess calories; Z68.34 Body mass index [BMI] 34.0-34.9, adult; Z79.899 Other long term (current) drug therapy
CPT/HCPCS: 11042

== ENCOUNTER 2024-04-08 09:15 | Outpatient (RCR) | payer MEDICAID, SELFPAY ==
[2024-03-14 00:23] VITALS: BP 138/75; PULSE 101; RESP 18; TEMP 36.4; BMI 35.9
[2024-03-18 09:06] VITALS: BP 129/76; PULSE 87; RESP 16; TEMP 36.7; BMI 35.9
[2024-03-25 09:18] VITALS: BP 129/76; PULSE 102; RESP 16; TEMP 36.1; BMI 35.9
[2024-04-01 09:05] VITALS: BP 116/72; PULSE 97; RESP 18; TEMP 36.8; BMI 35.9
[2024-04-08 09:03] VITALS: BP 138/80; PULSE 90; RESP 18; TEMP 35.9; BMI 35.9
== END 2024-04-12 23:59 | disposition home or self-care (01) ==
LOC: WC 09:15
PROVIDERS: PCP Internal Medicine; Referring Provider Student in an Organized Health Care Education/Training Program; Visit Provider Student in an Organized Health Care Education/Training Program
DX: E10.621 Type 1 diabetes mellitus with foot ulcer (principal); L97.521 Non-pressure chronic ulcer of other part of left foot limited to breakdown of skin; L97.412 Non-pressure chronic ulcer of right heel and midfoot with fat layer exposed; E10.42 Type 1 diabetes mellitus with diabetic polyneuropathy; Z79.4 Long term (current) use of insulin; E66.09 Other obesity due to excess calories; Z68.34 Body mass index [BMI] 34.0-34.9, adult; Z79.899 Other long term (current) drug therapy
CPT/HCPCS: 11042

== ENCOUNTER 2024-05-06 09:15 | Outpatient (RCR) | payer MEDICAID, SELFPAY ==
[2024-04-13 00:12] VITALS: BP 138/75; PULSE 101; RESP 18; TEMP 36.4; BMI 35.9
[2024-04-15 09:07] VITALS: BP 133/79; PULSE 84; RESP 18; TEMP 36.3; BMI 35.9
--- NOTE | 2024-04-15 13:17 | PN.PCM_ITS ---
History of Present Illness Date of Service: 04/15/24 Chief Complaint: right plantar foot ulcer and right leg ulcer History of Wound: This 38-year-old diabetic male presents to the wound healing center for a subfourth metatarsal ulceration of the right foot. 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 He states he tried to care for the ulceration for roughly 2 to 3 weeks in which it was not healing and presented to office. In office he did undergo debridement of the site continued offloading in [facility] boot however did not obtain his dressing supplies and was performing daily changes of wet to dry gauze. He was referred to the wound care center for applications of advanced wound care product. He states no pain secondary to diabetic peripheral polyneuropathy. He denies N/V/F/chills. He denies further complaints. 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 He continues with Diabetic shoes and custom offloading inserts. Continues dressing changes with collagen powder and foam dressing. States he will see his PCP May 25 and has an estimated surgical date of June 04. He denies constitutional symptoms. Denies further complaints. Objective Data Objective Data Vital Signs: Vital Signs Temp Pulse Resp BP O2 Del Method 97.3 F L 84 18 133/79 H Room Air 04/15/24 09:07 04/15/24 09:07 04/15/24 09:07 04/15/24 09:07 04/15/24 09:07 Oxygen Delivery Method Room Air Weight: 120.202 kg Body Mass Index (BMI) 35.9 Physical Exam Const alert, oriented x3 and no apparent distress General Appearance: cooperative HEENT normocephalic Eyes Eyes Narrative: Wears glasses General Eye: normal appearance of both eyes Neck General: normal visual inspection Lymph Lymphatic: no lymphadenopathy noted and no lymphedema noted Resp normal respiratory effort Cardio regular rate and regular rhythm Extremity no joint enlargement, no calf tenderness and no pedal edema Extremity Narrative: Vascular: DP and PT pulses palpable right foot. Capillary fill time less than 4 seconds to digits right foot. No pedal edema is noted. Dermatological: Skin is mildly xerotic to the plantar aspect. There is a ulceration subfourth metatarsal head right foot with healthy granular layer and surrounding hyerkeratotic skin. No signs of infection. No erythema, no purulent drainage, no malodor, no palpable fluctuance/bogginess noted, no visible abscess formation, no lymphangitic streaking. Subfourth metatarsal head left foot demonstrates slight hyperkeratosis of pre-ulcerative lesion, but improved with offloading insert. Neurologic: Decreased protective sensation bilateral foot secondary to diabetic peripheral polyneuropathy. Musculoskeletal: Muscle strength 5 of 5 age-appropriate. Partial fifth ray amputation is noted to the right foot. Decreased range of motion of the ankle joint in dorsiflexion with the knee extended without pain or crepitus. Decreased range of motion of the first metatarsophalangeal joint without pain or crepitus. Skin no rashes or lesions noted, skin turgor normal and no jaundice Neuro moves all extremities Debridement Note Debridement Note Wound debrided: Subfourth metatarsal right foot Laterality: Right Wound Grade/Stage: Reynoso stage I Type of Debridement: Excisional debridement Anesthesia Used: 5% Lidocaine Gel Depth: Down to and including healthy tissue and in the subcutaneous layer Percentage of wound debrided: 100 Instrument Used: #15 blade Tissue Removed: Fibrous, devitalized subcutaneous, biofilm, slough Severity: Fat Layer Exposed Amount of bleeding with debridement: Mild Bleeding Controlled with: Compression and gauze Patient tolerated procedure: Patient tolerated procedure well Post-Debridement Measurements and Additional Note: Post-Debridement Measurements/Treatment - Nurse 1 - General Ulcer Assessment Start: 04/15/24 09:06 Freq: Status: Active Protocol: LORI Activity Type Activity Date Activity User E-sign Co-sign Detail Recorded Client Recorded Date Recorded By Document 04/15/24 09:07 [id number] 04/15/24 09:17 04/15/24 09:07 - Today's Visit Information Type of service Follow-up Visit (Physician/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 ROOM HELPER ) Arrival Mode Ambulatory Patient Identification Verified (Name & Yes ) Patient Requires Transmission-Based No Precautions Height and Weight Body Mass Index (BMI) 35.9 BMI Classification Obese Vital Signs Temperature (97.8 F-99.1 F) 97.3 F L Temperature Source Temporal Pulse Rate (60-100) 84 Pulse Location Monitor Respiratory Rate (12-18) 18 Respiratory rate source Observation Oxygen Delivery Method Room Air Blood Pressure (90/60-120/80) 133/79 H Blood Pressure Mean (mm Hg) 97 Source Monitor Position Sitting Blood Pressure Location Left Arm History Since Last Visit- (Skip if this is Patient's initial visit) Have you changed medications since your No last visit? Any new allergies or adverse reactions No Had a fall/change in ADL's that may No increase risk of falls Signs or symptoms of abuse and/or No neglect since last visit Have you been in the hospital since your No last visit? Has dressing in place as prescribed Yes Has compression in place as prescribed N/A Has offloadiing in place as prescribed N/A Experienced any changes in pain level or No management Left Footwear Custom Shoe Right Footwear Custom Shoe Pain Scale: 0-10 Numeric Is Patient Pain Free? Yes WC - Nurse 1 - General Ulcer Measurement Start: 04/15/24 09:06 Freq: Status: Active Protocol: Activity Type Activity Date Activity User E-sign Co-sign Detail Recorded Client Recorded Date Recorded By Document 04/15/24 09:07 [id number] 04/15/24 09:17 04/15/24 09:07 Wound Center Nurse 1 #4 Lateral Right Plantar Foot -Combined with other wound No -Current Size (cm) - Length 0.4 -Current Size (cm) - Width 0.3 -Current Size (cm) - Depth 0.3 -Total Square Cm 0.12 -Date of Last Picture (Recall this 04/15/24 field) -Photo Taken Yes -Epithelialization None Present -Tunneling No -Undermining/Tunneling No -Circular Undermining No -Exudate Amt Small -Exudate Type Yellow/Green -Wound Margin Distinct, Outline Attached -Granulation Amt Small (1-33%) -Granulation Quality [place] -Slough/Fibrin Yes -Necrotic Tissue Type Adherent Slough -Texture (Yu-wound Skin Appearance) Assessed,Callus -Moisture (Yu-wound Skin Appearance) Assessed -Color (Yu-wound Skin Appearance) Assessed -Temperature (Yu-wound Skin No Abnormality Appearance) (Pt Warm) -Ulcer Cleansing Rinsed/ Irrigated with Saline -Foul Odor after Cleansing No -Anesthetic Used 5% Lidocaine Gel RENETTA - Nurse 2 - General Ulcer CM Notes Start: 04/15/24 09:06 Freq: Status: Active Protocol: Activity Type Activity Date Activity User E-sign Co-sign Detail Recorded Client Recorded Date Recorded By Document 04/15/24 09:25 [facility] [id number] 04/15/24 09:28 [facility] 04/15/24 09:25 Wound Center Nurse 2 -Time 09:25 -Correct Patient Yes -Correct Side, Site, Position Yes -Correct Procedure Yes -Procedure Performed Yes -Type of Procedure Debridement -Clinical Debridement Subcutaneous -Tissue Removed Subcutaneous -Post Debridement (cm) - Length 0.5 -Post Debridement (cm) - Width 0.4 -Post Debridement (cm) - Depth 0.1 -Total Square (Post) (cm) 0.20 -Area of Debridement (cm) - Length 0.5 -Area of Debridement (cm) - Width 0.4 -Total Square (Area) (cm) 0.20 -Tunneling No -Undermining/Tunneling No -Circular Undermining No -Wound/Ulcer Outcome Not Healed -Ulcer Cleansing Rinsed/ Irrigated with Saline -Foul Odor after Cleansing No -Bioengineered Tissue No -Bleeding Controlled with Pressure -Treatment Response Procedure Tolerated Well -Debridement - Subq, 1st 20sq cm Yes Pain Scale: 0-10 Numeric Is Patient Pain Free? Yes WC - Nurse 3 - General Ulcer D/C NN Start: 04/15/24 09:06 Freq: Status: Active Protocol: Activity Type Activity Date Activity User E-sign Co-sign Detail Recorded Client Recorded Date Recorded By Document 04/15/24 09:38 [id number] 04/15/24 09:39 04/15/24 09:38 Wound Care Center Nurse 3 #4 Lateral Right Plantar Foot -Ulcer Cleansing Not Cleansed -Foul Odor after Cleansing No -Primary Dressing Applied Collagen Powder ($),Mepilex Border -Mepilex Border 1 Pain Scale: 0-10 Numeric Is Patient Pain Free? Yes WC - Visit Discharge Discharge Condition Stable Ambulatory Status Ambulatory Transportation Private Auto Assessment/Plan Assessment/Plan (1) Ulcer of right foot with fat layer exposed: CODE(S): L97.512 - Non-pressure chronic ulcer of other part of right foot with fat layer exposed (2) Type 1 diabetes mellitus with diabetic polyneuropathy: CODE(S): E10.42 - Type 1 diabetes mellitus with diabetic polyneuropathy (3) Diabetes mellitus with foot ulcer: CODE(S): E11.621 - Type 2 diabetes mellitus with foot ulcer; L97.509 - Non-pressure chronic ulcer of other part of unspecified foot with unspecified severity (4) Non-pressure chronic ulcer of other part of left foot limited to breakdown of skin: CODE(S): L97.521 - Non-pressure chronic ulcer of other part of left foot limited to breakdown of skin (5) Delayed wound healing: CODE(S): T14.8XXD - Other injury of unspecified body region, subsequent encounter PLAN: Plan Patient seen and evaluated Pre-debridement sub 4th Right foot: 0.4 cm x 0.3 cm x 0.1 cm; Sub 4th preulcerative lesion Left foot 0.1 cm x 0.1 cm Ulceration subfourth metatarsal head of the right foot did undergo debridement today as noted in clinical panel above. Postdebridement ulceration measures 0.5 cm x 0.4 cm x 0.1 cm. Collagen powder and PHMB dressing applied to the ulcerative site. He has completed all 10 applications of EpiFix graft. Wound is improving with no maceration and continued epithelialization but pressure remains a consistent problem. He is instructed to change dressing daily. Offloading pad was placed about the subfourth metatarsal head of the right foot today. Subfourth metatarsal head ulceration demonstrates reduction in size versus previous visit as he continues wearing shoe gear at night to go to the bathroom. Surgical intervention has been discussed to perform 4th metatarsal head excision of the right foot and currently awaiting surgical date, due to no established PCP. He reports new PCP visit on May 25, with estimated surgical date June 04. He states he is still willing to move forward with the intervention. Has quit job due to an injury and he does feel that being off work is helping his feet as he notes less callus about the ulcer, less drainage, and improving discomfort. He does have slight hyperkeratosis sub 4th metatarsal head of the left foot which has continued to improve. Continuing diabetic Custom offloading inserts. Recommended continued offloading in CAM boot/surgical shoe to the right foot with plantar offloading padding. Surgical shoe has been offloaded so that he may wear this when getting up to go to the bathroom at night. Otherwise will remain in CAM boot with plantar offloading padding. Working again and wearing steel toe boots for work and thus needs continued offloading. Will wear Diabetic Custom offloading inserts. Has been non-compliant in these above offloading recommendations. Does wear Diabetic offloading inserts. Discussed continuing diabetic shoes with diabetic inserts. He is instructed to not pick at any calluses in future as this led to his ulceration. Discussed with patient his deforming force of the anterior tibial tendon leading to forefoot supinatus. Continue resistance band training to strengthen opposing peroneal muscle group. Previously discussed performing anterior tibial tendon lengthening vs Split Anterior Tibial Tendon Transfer. Patient will continue resistance band training prior to surgical intervention. Discussed surgical intervention of 4th metatarsal head excision of the Right foot and he would like to go this route. Discussed proper diabetic diet and tight glycemic control to continue to aid in healing of his ulceration. Discussed adequate protein intake to continue to aid in wound healing. Bhaskar supplementation also recommended to aid in wound healing. Last A1c 10/27/[address] Clement was 6.6%. Discussed continuing his proper diabetic diet to ensure good glycemic control. He does experience mendez phenomenon and they are working to achieve glycemic control. Discussed signs of infection today. He was instructed if he notices increasing redness about the ulcerative site that moves up onto the foot or up his leg, if he notices purulent drainage from the wound site, if he notices increasing foul odor from the wound, or if he develops fever greater than 101 degree, or nausea, or vomiting, or chills, that these are signs of a progressing infection and he should report to the ED to receive IV antibiotics. He voices understanding of this. The following work up and care recommendations were made: Dressing: Jessica or collagen powder moistened with hydrogel, dry sterile dressing. Change dressing daily to subfourth metatarsal site Wash: Soap and water Tissue growth optimization: Jessica/collagen powder. Offload: Plantar offloading padding and CAM boot right foot. Diabetic shoe gear with custom offloading inserts when not wearing CAM boot. Vascular: DP and PT pulses Palpable with adequate capillary fill time. Do not feel vascular status is impacting wound healing. Edema: No signs of pedal edema Infection: No signs of infection Pain: No pain secondary to diabetic peripheral polyneuropathy Host factors: DM type I with peripheral polyneuropathy, patient's himself as iatrogenic cause to ulcer, pressure I answered all the patient's questions. To return to the wound healing center in 2 weeks or call sooner if the patient has any questions or concerns.
--- NOTE | 2024-04-20 11:31 | WC ---
PHOTO RIGHT LATERAL PLANTAR 04/15/24
--- NOTE | 2024-04-20 11:33 | WC ---
PHOTO 04/14/24
[2024-04-29 09:05] VITALS: BP 140/74; PULSE 95; RESP 18; TEMP 36.3; BMI 35.9
--- NOTE | 2024-04-29 09:05 | PCM.WC.PN ---
History of Present Illness Date of Service: 04/29/24 Chief Complaint: right plantar foot ulcer and right leg ulcer History of Wound: This 38-year-old diabetic male presents to the wound healing center for a subfourth metatarsal ulceration of the right foot. 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 He states he tried to care for the ulceration for roughly 2 to 3 weeks in which it was not healing and presented to office. In office he did undergo debridement of the site continued offloading in [facility] boot however did not obtain his dressing supplies and was performing daily changes of wet to dry gauze. He was referred to the wound care center for applications of advanced wound care product. He states no pain secondary to diabetic peripheral polyneuropathy. He denies N/V/F/chills. He denies further complaints. 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 He continues with Diabetic shoes and custom offloading inserts. Continues dressing changes with collagen powder/hydrogel and foam dressing. Does feel ulceration is improving. He denies constitutional symptoms. Denies further complaints. Objective Data Objective Data Vital Signs: Vital Signs Temp Pulse Resp BP O2 Del Method 97.3 F L 84 18 133/79 H Room Air 04/15/24 09:07 04/15/24 09:07 04/15/24 09:07 04/15/24 09:07 04/15/24 09:07 Oxygen Delivery Method Room Air Weight: 120.202 kg Body Mass Index (BMI) 35.9 Physical Exam Const alert, oriented x3 and no apparent distress General Appearance: cooperative HEENT normocephalic Eyes Eyes Narrative: Wears glasses General Eye: normal appearance of both eyes Neck General: normal visual inspection Lymph Lymphatic: no lymphadenopathy noted and no lymphedema noted Resp normal respiratory effort Cardio regular rate and regular rhythm Extremity no joint enlargement, no calf tenderness and no pedal edema Extremity Narrative: Vascular: DP and PT pulses palpable right foot. Capillary fill time less than 4 seconds to digits right foot. No pedal edema is noted. Dermatological: Skin is mildly xerotic to the plantar aspect. There is a ulceration subfourth metatarsal head right foot with healthy granular layer and surrounding hyerkeratotic skin. No signs of infection. No erythema, no purulent drainage, no malodor, no palpable fluctuance/bogginess noted, no visible abscess formation, no lymphangitic streaking. Subfourth metatarsal head left foot demonstrates slight hyperkeratosis of pre-ulcerative lesion, but improved with offloading insert. Neurologic: Decreased protective sensation bilateral foot secondary to diabetic peripheral polyneuropathy. Musculoskeletal: Muscle strength 5 of 5 age-appropriate. Partial fifth ray amputation is noted to the right foot. Decreased range of motion of the ankle joint in dorsiflexion with the knee extended without pain or crepitus. Decreased range of motion of the first metatarsophalangeal joint without pain or crepitus. Skin no rashes or lesions noted, skin turgor normal and no jaundice Neuro moves all extremities Debridement Note Debridement Note Wound debrided: Subfourth metatarsal head right foot Laterality: Right Wound Grade/Stage: Reynoso stage I Type of Debridement: Excisional debridement Anesthesia Used: 5% Lidocaine Gel Depth: Down to and including healthy tissue and in the subcutaneous layer Percentage of wound debrided: 100 Instrument Used: #15 blade Tissue Removed: Fibrous, devitalized subcutaneous, biofilm, slough Severity: Fat Layer Exposed Amount of bleeding with debridement: Mild Bleeding Controlled with: Compression and gauze Patient tolerated procedure: Patient tolerated procedure well Post-Debridement Measurements and Additional Note: Post-Debridement Measurements/Treatment - Nurse 1 - General Ulcer Assessment Start: 04/15/24 09:06 Freq: Status: Active Protocol: [email or web address] Activity Type Activity Date Activity User E-sign Co-sign Detail Recorded Client Recorded Date Recorded By Document 04/15/24 09:07 [id number] 04/15/24 09:17 04/15/24 09:07 - Today's Visit Information Type of service Follow-up Visit (Physician/[employer]AC[employer] SE[employer]ARY AND HANDIC[employer]PER ) Arrival Mode Ambulatory Patient Identification Verified (Name & Yes ) Patient Requires Transmission-Based No Precautions Height and Weight Body Mass Index (BMI) 35.9 BMI Classification Obese Vital Signs Temperature (97.8 F-99.1 F) 97.3 F L Temperature Source Temporal Pulse Rate (60-100) 84 Pulse Location Monitor Respiratory Rate (12-18) 18 Respiratory rate source Observation Oxygen Delivery Method Room Air Blood Pressure (90/60-120/80) 133/79 H Blood Pressure Mean (mm Hg) 97 Source Monitor Position Sitting Blood Pressure Location Left Arm History Since Last Visit- (Skip if this is Patient's initial visit) Have you changed medications since your No last visit? Any new allergies or adverse reactions No Had a fall/change in ADL's that may No increase risk of falls Signs or symptoms of abuse and/or No neglect since last visit Have you been in the hospital since your No last visit? Has dressing in place as prescribed Yes Has compression in place as prescribed N/A Has offloadiing in place as prescribed N/A Experienced any changes in pain level or No management Left Footwear Custom Shoe Right Footwear Custom Shoe Pain Scale: 0-10 Numeric Is Patient Pain Free? Yes RENETTA - Nurse 1 - General Ulcer Measurement Start: 04/15/24 09:06 Freq: Status: Active Protocol: Activity Type Activity Date Activity User E-sign Co-sign Detail Recorded Client Recorded Date Recorded By Document 04/15/24 09:07 [id number] 04/15/24 09:17 04/15/24 09:07 Wound Center Nurse 1 #4 Lateral Right Plantar Foot -Combined with other wound No -Current Size (cm) - Length 0.4 -Current Size (cm) - Width 0.3 -Current Size (cm) - Depth 0.3 -Total Square Cm 0.12 -Date of Last Picture (Recall this 04/15/24 field) -Photo Taken Yes -Epithelialization None Present -Tunneling No -Undermining/Tunneling No -Circular Undermining No -Exudate Amt Small -Exudate Type Yellow/Green -Wound Margin Distinct, Outline Attached -Granulation Amt Small (1-33%) -Granulation Quality Brunson -Slough/Fibrin Yes -Necrotic Tissue Type Adherent Slough -Texture (Yu-wound Skin Appearance) Assessed,Callus -Moisture (Yu-wound Skin Appearance) Assessed -Color (Yu-wound Skin Appearance) Assessed -Temperature (Yu-wound Skin No Abnormality Appearance) (Pt Warm) -Ulcer Cleansing Rinsed/ Irrigated with Saline -Foul Odor after Cleansing No -Anesthetic Used 5% Lidocaine Gel RENETTA - Nurse 2 - General Ulcer CM Notes Start: 04/15/24 09:06 Freq: Status: Active Protocol: Activity Type Activity Date Activity User E-sign Co-sign Detail Recorded Client Recorded Date Recorded By Document 04/15/24 09:25 [facility] [id number] 04/15/24 09:28 [facility] 04/15/24 09:25 Wound Center Nurse 2 -Time 09:25 -Correct Patient Yes -Correct Side, Site, Position Yes -Correct Procedure Yes -Procedure Performed Yes -Type of Procedure Debridement -Clinical Debridement Subcutaneous -Tissue Removed Subcutaneous -Post Debridement (cm) - Length 0.5 -Post Debridement (cm) - Width 0.4 -Post Debridement (cm) - Depth 0.1 -Total Square (Post) (cm) 0.20 -Area of Debridement (cm) - Length 0.5 -Area of Debridement (cm) - Width 0.4 -Total Square (Area) (cm) 0.20 -Tunneling No -Undermining/Tunneling No -Circular Undermining No -Wound/Ulcer Outcome Not Healed -Ulcer Cleansing Rinsed/ Irrigated with Saline -Foul Odor after Cleansing No -Bioengineered Tissue No -Bleeding Controlled with Pressure -Treatment Response Procedure Tolerated Well -Debridement - Subq, 1st 20sq cm Yes Pain Scale: 0-10 Numeric Is Patient Pain Free? Yes - Nurse 3 - General Ulcer D/C NN Start: 04/15/24 09:06 Freq: Status: Active Protocol: Activity Type Activity Date Activity User E-sign Co-sign Detail Recorded Client Recorded Date Recorded By Document 04/15/24 09:38 [id number] 04/15/24 09:39 04/15/24 09:38 Wound Care Center Nurse 3 #4 Lateral Right Plantar Foot -Ulcer Cleansing Not Cleansed -Foul Odor after Cleansing No -Primary Dressing Applied Collagen Powder ($),Mepilex Border -Mepilex Border 1 Pain Scale: 0-10 Numeric Is Patient Pain Free? Yes WC - Visit Discharge Discharge Condition Stable Ambulatory Status Ambulatory Transportation Private Auto Assessment/Plan Assessment/Plan (1) Ulcer of right foot with fat layer exposed: CODE(S): L97.512 - Non-pressure chronic ulcer of other part of right foot with fat layer exposed (2) Type 1 diabetes mellitus with diabetic polyneuropathy: CODE(S): E10.42 - Type 1 diabetes mellitus with diabetic polyneuropathy (3) Diabetes mellitus with foot ulcer: CODE(S): E11.621 - Type 2 diabetes mellitus with foot ulcer; L97.509 - Non-pressure chronic ulcer of other part of unspecified foot with unspecified severity (4) Non-pressure chronic ulcer of other part of left foot limited to breakdown of skin: CODE(S): L97.521 - Non-pressure chronic ulcer of other part of left foot limited to breakdown of skin (5) Delayed wound healing: CODE(S): T14.8XXD - Other injury of unspecified body region, subsequent encounter PLAN: Plan Patient seen and evaluated Pre-debridement sub 4th Right foot: 0.4 cm x 0.2 cm x 0.1 cm; Sub 4th preulcerative lesion Left foot 0.1 cm x 0.1 cm Ulceration subfourth metatarsal head of the right foot did undergo debridement today as noted in clinical panel above. Postdebridement ulceration measures 0.5 cm x 0.3 cm x 0.1 cm. Collagen powder/Hydrogel and PHMB dressing applied to the ulcerative site. He has completed all 10 applications of EpiFix graft. Wound continues improving with no maceration and continued epithelialization but pressure remains a consistent problem. He is instructed to change dressing daily. Offloading pad was placed about the subfourth metatarsal head of the right foot today. Subfourth metatarsal head ulceration demonstrates reduction in size versus previous visit. He continues wearing shoe gear at night to go to the bathroom. Surgical intervention has been discussed to perform 4th metatarsal head excision of the right foot and currently awaiting surgical date, due to no established PCP. He reports new PCP visit on May 25, with estimated surgical date June 04. He states he is still willing to move forward with the intervention. Has quit job due to an injury and he does feel that being off work is helping his feet as he notes less callus about the ulcer, less drainage, and improving discomfort. He does have slight hyperkeratosis sub 4th metatarsal head of the left foot which has continued to improve. Continuing diabetic Custom offloading inserts. Recommended continued offloading in CAM boot/surgical shoe to the right foot with plantar offloading padding. Surgical shoe has been offloaded so that he may wear this when getting up to go to the bathroom at night. Otherwise will remain in CAM boot with plantar offloading padding. Working again and wearing steel toe boots for work and thus needs continued offloading. Will wear Diabetic Custom offloading inserts. Has been non-compliant in these above offloading recommendations. Does wear Diabetic offloading inserts. Discussed continuing diabetic shoes with diabetic inserts. He is instructed to not pick at any calluses in future as this led to his ulceration. Discussed with patient his deforming force of the anterior tibial tendon leading to forefoot supinatus. Continue resistance band training to strengthen opposing peroneal muscle group. Previously discussed performing anterior tibial tendon lengthening vs Split Anterior Tibial Tendon Transfer. Patient will continue resistance band training prior to surgical intervention. Discussed surgical intervention of 4th metatarsal head excision of the Right foot and he would like to go this route. Discussed proper diabetic diet and tight glycemic control to continue to aid in healing of his ulceration. Discussed adequate protein intake to continue to aid in wound healing. Bhaskar supplementation also recommended to aid in wound healing. Last A1c 10/27/[address] Clement was 6.6%. Discussed continuing his proper diabetic diet to ensure good glycemic control. He does experience mendez phenomenon and they are working to achieve glycemic control. Discussed signs of infection today. He was instructed if he notices increasing redness about the ulcerative site that moves up onto the foot or up his leg, if he notices purulent drainage from the wound site, if he notices increasing foul odor from the wound, or if he develops fever greater than 101 degree, or nausea, or vomiting, or chills, that these are signs of a progressing infection and he should report to the ED to receive IV antibiotics. He voices understanding of this. The following work up and care recommendations were made: Dressing: Jessica or collagen powder moistened with hydrogel, dry sterile dressing. Change dressing daily to subfourth metatarsal site Wash: Soap and water Tissue growth optimization: Jessiac/collagen powder. Offload: Plantar offloading padding and CAM boot right foot. Diabetic shoe gear with custom offloading inserts when not wearing CAM boot. Vascular: DP and PT pulses Palpable with adequate capillary fill time. Do not feel vascular status is impacting wound healing. Edema: No signs of pedal edema Infection: No signs of infection Pain: No pain secondary to diabetic peripheral polyneuropathy Host factors: DM type I with peripheral polyneuropathy, patient's himself as iatrogenic cause to ulcer, pressure I answered all the patient's questions. To return to the wound healing center in 1 week or call sooner if the patient has any questions or concerns.
[2024-05-06 09:19] VITALS: BP 131/73; PULSE 96; RESP 18; TEMP 36.3; BMI 35.9
--- NOTE | 2024-05-06 09:22 | PN.PCM_ITS ---
History of Present Illness Date of Service: 05/06/24 Chief Complaint: right plantar foot ulcer and right leg ulcer History of Wound: This 38-year-old diabetic male presents to the wound healing center for a subfourth metatarsal ulceration of the right foot. 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 He states he tried to care for the ulceration for roughly 2 to 3 weeks in which it was not healing and presented to office. In office he did undergo debridement of the site continued offloading in [facility] boot however did not obtain his dressing supplies and was performing daily changes of wet to dry gauze. He was referred to the wound care center for applications of advanced wound care product. He states no pain secondary to diabetic peripheral polyneuropathy. He denies N/V/F/chills. He denies further complaints. 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 He continues with Diabetic shoes and custom offloading inserts. Continues dressing changes with collagen powder/hydrogel and foam dressing. States ulcer site has closed over at this time. He is still on board for surgical intervention on June 04.. He denies constitutional symptoms. Denies further complaints. Objective Data Objective Data Vital Signs: Vital Signs Temp Pulse Resp BP O2 Del Method 97.3 F L 95 18 140/74 H Room Air 04/29/24 09:05 04/29/24 09:05 04/29/24 09:05 04/29/24 09:05 04/15/24 09:07 Oxygen Delivery Method Room Air Weight: 120.202 kg Body Mass Index (BMI) 35.9 Physical Exam Const alert, oriented x3 and no apparent distress General Appearance: cooperative HEENT normocephalic Eyes Eyes Narrative: Wears glasses General Eye: normal appearance of both eyes Neck General: normal visual inspection Lymph Lymphatic: no lymphadenopathy noted and no lymphedema noted Resp normal respiratory effort Cardio regular rate and regular rhythm Extremity no joint enlargement, no calf tenderness and no pedal edema Extremity Narrative: Vascular: DP and PT pulses palpable right foot. Capillary fill time less than 4 seconds to digits right foot. No pedal edema is noted. Dermatological: Skin is mildly xerotic to the plantar aspect. There is a ulceration subfourth metatarsal head right foot with superficial granular layer and surrounding/overlying hyerkeratotic skin. No signs of infection. No erythema, no purulent drainage, no malodor, no palpable fluctuance/bogginess noted, no visible abscess formation, no lymphangitic streaking. Subfourth metatarsal head left foot demonstrates slight hyperkeratosis of pre-ulcerative lesion, but improved with offloading insert. Neurologic: Decreased protective sensation bilateral foot secondary to diabetic peripheral polyneuropathy. Musculoskeletal: Muscle strength 5 of 5 age-appropriate. Partial fifth ray amputation is noted to the right foot. Decreased range of motion of the ankle joint in dorsiflexion with the knee extended without pain or crepitus. Decreased range of motion of the first metatarsophalangeal joint without pain or crepitus. Skin no rashes or lesions noted, skin turgor normal and no jaundice Neuro moves all extremities Debridement Note Debridement Note Wound debrided: Subfourth metatarsal head right foot Laterality: Right Wound Grade/Stage: Reynoso stage I Type of Debridement: Excisional debridement Anesthesia Used: 5% Lidocaine Gel Depth: Down to and including healthy tissue and in the subcutaneous layer Percentage of wound debrided: 100 Instrument Used: #15 blade Tissue Removed: Fibrous, devitalized subcutaneous, biofilm, slough Severity: Fat Layer Exposed Amount of bleeding with debridement: Mild Bleeding Controlled with: Compression and gauze Patient tolerated procedure: Patient tolerated procedure well Post-Debridement Measurements and Additional Note: Post-Debridement Measurements/Treatment - Nurse 1 - General Ulcer Assessment Start: 04/15/24 09:06 Freq: Status: Active Protocol: LORI Activity Type Activity Date Activity User E-sign Co-sign Detail Recorded Client Recorded Date Recorded By Document 04/15/24 09:07 [id number] 04/15/24 09:17 GM Document 04/29/24 09:05 DL [id number] 04/29/24 09:11 DL 04/15/24 04/29/24 09:07 09:05 - Today's Visit Information Type of service Follow-up Visit Follow-up Visit (Physician/CUT FILE CLERK (Physician/CUT FILE CLERK ) ) Arrival Mode Ambulatory Ambulatory Transfer Assistance None Patient Identification Verified (Name & Yes Yes ) Patient Requires Transmission-Based No No Precautions Height and Weight Body Mass Index (BMI) 35.9 35.9 BMI Classification Obese Obese Vital Signs Temperature (97.8 F-99.1 F) 97.3 F L 97.3 F L Temperature Source Temporal Temporal Pulse Rate (60-100) 84 95 Pulse Location Monitor Monitor Respiratory Rate (12-18) 18 18 Respiratory rate source Observation Observation Oxygen Delivery Method Room Air Blood Pressure (90/60-120/80) 133/79 H 140/74 H Blood Pressure Mean (mm Hg) 97 96 Source Monitor Monitor Position Sitting Blood Pressure Location Left Arm History Since Last Visit- (Skip if this is Patient's initial visit) Have you changed medications since your No No last visit? Any new allergies or adverse reactions No No Had a fall/change in ADL's that may No No increase risk of falls Signs or symptoms of abuse and/or No No neglect since last visit Have you been in the hospital since your No No last visit? Has dressing in place as prescribed Yes Yes Has compression in place as prescribed N/A N/A Has offloadiing in place as prescribed N/A Yes Experienced any changes in pain level or No No management Left Footwear Custom Shoe Right Footwear Custom Shoe Custom Shoe Pain Scale: 0-10 Numeric Is Patient Pain Free? Yes Yes - Nurse 1 - General Ulcer Measurement Start: 04/15/24 09:06 Freq: Status: Active Protocol: Activity Type Activity Date Activity User E-sign Co-sign Detail Recorded Client Recorded Date Recorded By Document 04/15/24 09:07 GM [id number] 04/15/24 09:17 GM Document 04/29/24 09:05 DL [id number] 04/29/24 09:11 DL 04/15/24 04/29/24 09:07 09:05 Wound Center Nurse 1 #4 Lateral Right Plantar Foot -Combined with other wound No -Current Size (cm) - Length 0.4 0.3 -Current Size (cm) - Width 0.3 0.2 -Current Size (cm) - Depth 0.3 0.1 -Total Square Cm 0.12 0.06 -Date of Last Picture (Recall this 04/15/24 field) -Photo Taken Yes Yes -Epithelialization None Present -Tunneling No -Undermining/Tunneling No -Circular Undermining No -Exudate Amt Small Small -Exudate Type Yellow/Green -Wound Margin Distinct, Thickened Outline Attached -Granulation Amt Small (1-33%) Small (1-33%) -Granulation Quality Napoleon Napoleon -Slough/Fibrin Yes -Necrosis Amt Small (1-33%) -Necrotic Tissue Type Adherent Slough Adherent Slough -Structure Exposed N/A -Texture (Yu-wound Skin Appearance) Assessed,Callus Callus -Moisture (Yu-wound Skin Appearance) Assessed Maceration,Dry/ Scaly -Color (Yu-wound Skin Appearance) Assessed No Abnormality -Temperature (Yu-wound Skin No Abnormality No Abnormality Appearance) (Pt Warm) (Pt Warm) -Tenderness on Palpation (Yu-wound No Skin Appearance) -Ulcer Cleansing Rinsed/ Soap and Water Irrigated with Saline -Foul Odor after Cleansing No No -Anesthetic Used 5% Lidocaine 5% Lidocaine Gel Gel WC - Nurse 2 - General Ulcer CM Notes Start: 04/15/24 09:06 Freq: Status: Active Protocol: Activity Type Activity Date Activity User E-sign Co-sign Detail Recorded Client Recorded Date Recorded By Document 04/15/24 09:25 [facility] [id number] 04/15/24 09:28 [facility] Document 04/29/24 09:15 [facility] [id number] 04/29/24 09:21 BM 04/15/24 04/29/24 09:25 09:15 Wound Center Nurse 2 #4 Lateral Right Plantar Foot -Time 09: 09:15 -Correct Patient Yes Yes -Correct Side, Site, Position Yes Yes -Correct Procedure Yes Yes -Procedure Performed Yes Yes -Type of Procedure Debridement Debridement -Clinical Debridement Subcutaneous Subcutaneous -Tissue Removed Subcutaneous Subcutaneous -Post Debridement (cm) - Length 0.5 0.5 -Post Debridement (cm) - Width 0.4 0.3 -Post Debridement (cm) - Depth 0.1 0.1 -Total Square (Post) (cm) 0.20 0.15 -Area of Debridement (cm) - Length 0.5 0.5 -Area of Debridement (cm) - Width 0.4 0.3 -Total Square (Area) (cm) 0.20 0.15 -Tunneling No No -Undermining/Tunneling No No -Circular Undermining No No -Wound/Ulcer Outcome Not Healed Not Healed -Ulcer Cleansing Rinsed/ Rinsed/ Irrigated with Irrigated with Saline Saline -Foul Odor after Cleansing No No -Bioengineered Tissue No No -Bleeding Controlled with Pressure Pressure -Treatment Response Procedure Procedure Tolerated Well Tolerated Well -Debridement - Subq, 1st 20sq cm Yes Yes Pain Scale: 0-10 Numeric Is Patient Pain Free? Yes Yes - Nurse 3 - General Ulcer D/C NN Start: 04/15/24 09:06 Freq: Status: Active Protocol: Activity Type Activity Date Activity User E-sign Co-sign Detail Recorded Client Recorded Date Recorded By Document 04/15/24 09:38 GM [id number] 04/15/24 09:39 GM Document 04/29/24 09:30 DL [id number] 04/29/24 09:31 DL 04/15/24 04/29/24 09:38 09:30 Wound Care Center Nurse 3 #4 Lateral Right Plantar Foot -Ulcer Cleansing Not Cleansed Rinsed/ Irrigated with Saline -Foul Odor after Cleansing No No -Primary Dressing Applied Collagen Powder C Hydrogel ($), ($),Mepilex Mepilex Border Border -Other Dressing Purachol -Other Covering Foam -Mepilex Border 1 1 Treatment Response Procedure Tolerated Well Pain Scale: 0-10 Numeric Is Patient Pain Free? Yes Yes - Visit Discharge Discharge Condition Stable Stable Ambulatory Status Ambulatory Ambulatory Transportation Private Auto Private Auto Assessment/Plan Assessment/Plan (1) Ulcer of right foot with fat layer exposed: CODE(S): L97.512 - Non-pressure chronic ulcer of other part of right foot with fat layer exposed (2) Type 1 diabetes mellitus with diabetic polyneuropathy: CODE(S): E10.42 - Type 1 diabetes mellitus with diabetic polyneuropathy (3) Diabetes mellitus with foot ulcer: CODE(S): E11.621 - Type 2 diabetes mellitus with foot ulcer; L97.509 - Non-pressure chronic ulcer of other part of unspecified foot with unspecified severity (4) Non-pressure chronic ulcer of other part of left foot limited to breakdown of skin: CODE(S): L97.521 - Non-pressure chronic ulcer of other part of left foot limited to breakdown of skin (5) Delayed wound healing: CODE(S): T14.8XXD - Other injury of unspecified body region, subsequent e ncounter PLAN: Plan Patient seen and evaluated Pre-debridement sub 4th Right foot: 0.1 cm x 0.1 cm x 0.1 cm; Sub 4th preulcerative lesion Left foot 0.1 cm x 0.1 cm Ulceration subfourth metatarsal head of the right foot did undergo debridement today as noted in clinical panel above. Postdebridement ulceration measures 0.2 cm x 0.1 cm x 0.1 cm. Collagen powder/Hydrogel and PHMB dressing applied to the ulcerative site. He has completed all 10 applications of EpiFix graft. Wound continues improving with no maceration and continued epithelialization but pr essure remains a consistent problem. He is instructed to change dressing daily. Offloading pad was placed about the subfourth metatarsal head of the right foot today. Subfourth metatarsal head ulceration demonstrates continued reduction in size versus previous visit. He continues wearing shoe gear at night to go to the bathroom. Surgical intervention has been discussed to perform 4th metatarsal head excision of the right foot with surgical date scheduled. He reports new PCP visit on May 25, with surgical date June 04. He states he is still willing to move forward with the intervention. Has quit job due to an injury and he does feel that being off work is helping his feet as he notes healing ulcer site with less callus about the ulcer, less drainage, and improving discomfort. He does have slight hyperkeratosis sub 4th metatarsal head of the left foot which has continued to improve. Continuing diabetic Custom offloading inserts. Recommended continued offloading in CAM boot/surgical shoe to the right foot with plantar offloading padding. Surgical shoe has been offloaded so that he may wear this when getting up to go to the bathroom at night. Otherwise will remain in CAM boot with plantar offloading padding. Has been non-compliant in these above offloading recommendations. Does wear Diabetic offloading inserts. Discussed continuing diabetic shoes with diabetic inserts. He is instructed to not pick at any calluses in future as this led to his ulceration. Discussed with patient his deforming force of the anterior tibial tendon leading to forefoot supinatus. Continue resistance band training to strengthen opposing peroneal muscle group. Previously discussed performing anterior tibial tendon lengthening vs Split Anterior Tibial Tendon Transfer. Patient will continue resistance band training prior to surgical intervention. Discussed surgical intervention of 4th metatarsal head excision of the Right foot and he would like to go this route. Discussed proper diabetic diet and tight glycemic control to continue to aid in healing of his ulceration. Discussed adequate protein intake to continue to aid in wound healing. Bhaskar supplementation also recommended to aid in wound healing. Last A1c 10/27/[address] Clement was 6.6%. Discussed continuing his proper diabetic diet to ensure good glycemic control. He does experience mendez phenomenon and they are working to achieve glycemic control. Discussed signs of infection today. He was instructed if he notices increasing redness about the ulcerative site that moves up onto the foot or up his leg, if he notices purulent drainage from the wound site, if he notices increasing foul odor from the wound, or if he develops fever greater than 101 degree, or nausea, or vomiting, or chills, that these are signs of a progressing infection and he should report to the ED to receive IV antibiotics. He voices understanding of this. The following work up and care recommendations were made: Dressing: Jessica or collagen powder moistened with hydrogel, dry sterile dressing. Change dressing daily to subfourth metatarsal site Wash: Soap and water Tissue growth optimization: Jessica/collagen powder. Offload: Plantar offloading padding and CAM boot right foot. Diabetic shoe gear with custom offloading inserts when not wearing CAM boot. Vascular: DP and PT pulses Palpable with adequate capillary fill time. Do not feel vascular status is impacting wound healing. Edema: No signs of pedal edema Infection: No signs of infection Pain: No pain secondary to diabetic peripheral polyneuropathy Host factors: DM type I with peripheral polyneuropathy, patient's himself as iatrogenic cause to ulcer, pressure I answered all the patient's questions. To return to the wound healing center in 2 weeks or call sooner if the patient has any questions or concerns.
== END 2024-05-13 23:59 | disposition home or self-care (01) ==
LOC: WC 09:15
PROVIDERS: PCP Internal Medicine; Referring Provider Student in an Organized Health Care Education/Training Program; Visit Provider Student in an Organized Health Care Education/Training Program
DX: E10.621 Type 1 diabetes mellitus with foot ulcer (principal); L97.512 Non-pressure chronic ulcer of other part of right foot with fat layer exposed; L97.521 Non-pressure chronic ulcer of other part of left foot limited to breakdown of skin; E10.42 Type 1 diabetes mellitus with diabetic polyneuropathy
CPT/HCPCS: 11042

== ENCOUNTER → 2024-05-31 | Outpatient (CLI) | payer MEDICAID, SELFPAY ==
[2024-05-31 17:44] LABS: Microalbumin,Random Urine 18.4 mg/L (NO RANGE EST.); Microalbumin:Creatinine Ratio 10.3 mg/g CRE (<30 mg/g CRE)
[2024-05-31 17:47] LABS: ALB/GLOB Ratio 0.8 RATIO (0.9-2.4); AST(SGOT) 29 U/L (15-37); Alanine Aminotransfer ALT/SGPT 51 U/L (16-61); Albumin, Serum 3.6 g/dL (3.2-5.0); Alkaline Phosphatase 139 U/L (45-117); Anion Gap 6 (5-15); BUN 19 mg/dL (7-18); BUN/Creat Ratio 17.3 RATIO (10-20); Calcium,Total 8.8 mg/dL (8.5-10.1); Chloride 106 mmol/L (98-107); Cholesterol 215 mg/dL (200); EST Glomerular Filtration Rate 79 mL/min (>60); Est Glom Filt Rate - Afr Amer 96 mL/min (>60); Globulin 4.5 g/dL (2.2-4.2); Glucose 186 mg/dL (74-106); High Density Lipoprotein 43 mg/dL; Protein, Total 8.1 g/dL (6.4-8.2); Sodium Level 137 mmol/L (136-145); Triglycerides 433 mg/dL
== END | disposition home or self-care (01) ==
LOC: LAB 16:28
PROVIDERS: PCP Internal Medicine; Referring Provider Internal Medicine Endocrinology, Diabetes & Metabolism; Visit Provider Internal Medicine Endocrinology, Diabetes & Metabolism
DX: E10.649 Type 1 diabetes mellitus with hypoglycemia without coma (principal); E10.319 Type 1 diabetes mellitus with unspecified diabetic retinopathy without macular edema; E10.42 Type 1 diabetes mellitus with diabetic polyneuropathy
CPT/HCPCS: 36415; 80053; 80061; 82043; 82570; 84443

== ENCOUNTER 2024-06-03 09:15 | Outpatient (RCR) | payer MEDICAID, SELFPAY ==
[2024-05-14 00:35] VITALS: BP 138/75; PULSE 101; RESP 18; TEMP 36.4; BMI 35.9
[2024-05-20 09:04] VITALS: BP 137/92; PULSE 86; RESP 18; TEMP 35.6; BMI 35.9
[2024-06-03 09:04] VITALS: BP 133/80; PULSE 85; RESP 18; TEMP 36.1; BMI 35.9
== END 2024-06-12 23:59 | disposition home or self-care (01) ==
LOC: WC 09:15
PROVIDERS: Referring Provider Student in an Organized Health Care Education/Training Program; Visit Provider Student in an Organized Health Care Education/Training Program
DX: E10.621 Type 1 diabetes mellitus with foot ulcer (principal); L97.512 Non-pressure chronic ulcer of other part of right foot with fat layer exposed; L97.521 Non-pressure chronic ulcer of other part of left foot limited to breakdown of skin; E10.42 Type 1 diabetes mellitus with diabetic polyneuropathy; Z79.4 Long term (current) use of insulin; Z79.899 Other long term (current) drug therapy
CPT/HCPCS: 11042; 99213; G0463

== ENCOUNTER 2024-06-04 11:36 | Day surgery (SDC) | payer MEDICAID, SELFPAY ==
[2024-06-04] VITALS (10 sets, daily range): BP systolic 84–138; BP diastolic 58–76; PULSE 82–99; RESP 14–16; TEMP 36.2–36.4; O2SAT 93–98; BMI 37.9
--- NOTE | 2024-06-04 11:39 | PCM.DC ---
Discharge Instructions Diet Discharge Diet: No restrictions Activity Discharge Activity: May Drive (May resume driving once off of narcotic medication with surgical shoe to the right foot) and May Shower (May shower with cast bag covering to the right lower extremity to keep dressings clean, dry, and intact to the right foot) Weight Bearing Status: Weight bearing as tolerated (Permitted to bear weight to the right foot in surgical shoe as tolerated) Keep extremity elevated above heart level: Right Leg (Elevate right lower extremity at all times of rest for postoperative edema control) Dressing / Incision Call your doctor if you observe: Fever of 101 or Higher, Shortness of breath, Chest pain and Calf discomfort Change Dressing in: do not change dressing Remove Dressing in: leave in place till F/U (Physician will change dressing at first postoperative appointment. Leave dressing intact to right foot) Cleanse incision/area with: Do not get Incision Wet and Keep Dressing Clean & Dry (Do not get site wet. Keep dressings clean, dry, and intact to the right foot) Follow Up Care Please Follow Up With: George Ambrocio DPM When: Patient has first postoperative appointment with me in wound care center next week Test Results: Test results from this visit will be discussed in further detail at your follow-up appointment, if applicable. Discharge Plan Admission Attending Provider: George Ambrocio Primary Care Provider: Maggie Meier Instructions Print Language: Gibralt[place] Discharge Orders/Prescriptions Prescriptions: New doxycycline hyclate 100 mg capsule 100 mg PO DAILY Qty: 10 0RF oxycodone-acetaminophen 5-325 mg tablet 1 tab PO Q8H PRN (Reason: pain) 7 Days Qty: 28 0RF No Action (DME) FreeStyle Lite Strips Strip See Rx Instructions .ROUTE .MEDSUPPLY Qty: 150 6RF Rx Instructions: 5 times daily (DME) lancets [FreeStyle Lancets] 28 gauge misc See Rx Instructions .ROUTE .MEDSUPPLY Qty: 150 6RF Rx Instructions: 5 times daily insulin aspart U-100 [Novolog FlexPen U-100 Insulin] 100 unit/mL (3 mL) insulin pen 40 unit SC TID Qty: 36 6RF (DME) pen needle, diabetic [BD Ultra-Fine Amy Pen Needle] 32 gauge x 5/32 needle See Rx Instructions .ROUTE .MEDSUPPLY Qty: 200 6RF Rx Instructions: 6 times daily varenicline [Chantix Starting Month Box] 0.5 mg (11)- 1 mg (42) tablets,dose pack See Rx Instructions PO PER PKG DIR Qty: 53 0RF Rx Instructions: PO PER PKG DIR insulin glargine [Lantus Solostar U-100 Insulin] 100 unit/mL (3 mL) insulin pen 40 unit SC QHS (DME) FreeStyle Monse 3 Sensor Device See Rx Instructions .Route Qty: 2 6RF Rx Instructions: As directed (DME) FreeStyle Monse 3 Plus Sensor Device See Rx Instructions .Route Qty: 6 1RF Rx Instructions: As directed fenofibrate nanocrystallized 145 mg tablet 145 mg PO QDAY Qty: 90 1RF Referrals / Follow Up: Maggie Meier MD [Primary Care Provider] - Disposition Disposition (needs filled in before D/C Order can be placed): Home, Self Care
[2024-06-04 12:04] LABS: Absolute Lymphocyte Count 2.33 X10^3/uL (0.83-4.51); Absolute Neutrophil Count 6.2 X10^3/uL (2.0-7.7); Basophil# 0.06 X10^3/uL; Basophil% 0.6 % (0-1); Eosinophil# 0.12 X10^3/uL; Eosinophils% 1.3 % (0-5); Hemoglobin 15.4 g/dL (13.0-16.5); Lymphocyte # 2.33 X10^3/ul (0.83-4.51); Lymphocyte % 24.5 % (19-41); Mean Corpuscular Hgb 29.8 pg (27.0-32.0); Mean Corpuscular Volume 85.1 fL (80-94); Mean Platelet Vol. 9.4 fl (6.2-12.0); Monocyte# 0.81 X10^3/uL; Monocyte% 8.5 % (0-10); NRBC Flagged by Analyzer 0 % (0-5); Neutrophil # 6.16 X10^3/uL (2.7-7.7); Neutrophil % 64.7 % (47-70); Platelet Count 322 K/mm3 (150-450); RBC Distribution Width CV 11.9 % (11.6-14.6); RBC Distribution Width SD 36.9 fl (35.1-43.9); Red Blood Count 5.17 M/mm3 (4.6-6.2); White Blood Count 9.5 K/mm3 (4.4-11.0)
[2024-06-04] MEDS: Lactated Ringers 1,000 ML 15 ML IV (12:06)
--- NOTE | 2024-06-04 12:26 | PRE.ANES_ITS ---
ASA Classification* ASA Classification ASA Classification: 2 Assessment & Plan Anesthesia* Anesthesia Assessment Anesthesia Assessment: Discussed sedation and/or anesthesia options, risks, benefits, and alternatives with patient/parents/legal guardian/POA. Questions invited. The patient/parents/legal guardian/POA seems to understand and agrees to proceed with anesthesia plan. Reviewed the physical assessment, medical history, allergy history and patient home medications list prior to surgery/procedure/anesthetic and documented any changes. Performed airway and anesthesia risk assessments. Anesthesia Type Anesthesia Type: General and MAC History Source History Obtained from:: Patient and Chart Anesthesia Focused Assessment* Temperature: 97.2 F Pulse Rate: 99 Blood Pressure: 138/76 Respiratory Rate: 14 Pulse Ox: 98 Oxygen Delivery Method: Room Air Airway Assessment Mouth opens: >3 cm Mallampati Score: I Teeth Condition: Caps/Crowns (Patient has right upper molar crown. It is tight.) Neck Range of motion (ROM): Limited ROM (Slight decrease in extension) Focused Labs Anesthesia Preop lab: CBC WBC 9.5 K/mm3 (4.4-11.0) 06/04/24 11:55 RBC 5.17 M/mm3 (4.6-6.2) 06/04/24 11:55 Hgb 15.4 g/dL (13.0-16.5) 06/04/24 11:55 Hct 44.0 % (40-54) 06/04/24 11:55 Plt Count 322 K/mm3 (150-450) 06/04/24 11:55 CHEMISTRY Potassium 4.0 mmol/L (3.5-5.1) 05/31/24 16:30 Sodium 137 mmol/L (136-145) 05/31/24 16:30 BUN 19 mg/dL (7-18) H 05/31/24 16:30 Creatinine 1.10 mg/dL (0.70-1.30) 05/31/24 16:30 Glucose 186 mg/dL (74-106) H 05/31/24 16:30 POC Glucose 267 mg/dL (70-110) H 07/26/19 12:22 TSH 1.320 uIU/mL (0.358-3.740) 05/31/24 16:30 COAG PT 13.8 SECONDS (11.7-14.9) 06/11/19 16:50 Pre-Assessment Diagnosis/Proposed Procedure Planned Operative Procedure(s): EXCISION OF RIGHT FOURTH METATARSAL DEBRIDEMENT WITH APPLICATION WOUND VAC Anesthesia History Anesthesia History - physical therapist clinic director: Anesthesia History - physical therapist clinic director Hx Hospitalization No 05/31/24 09:02 Any Problems With Anesthesia No 05/31/24 09:02 Cholinesterase deficiency No 05/31/24 09:02 You/Your Family Experience No 05/31/24 09:02 fever (hyperthermia) with Relationship Recent Exposure to Contagious No 06/04/24 12:01 Disease Does patient have nerve No 05/31/24 09:02 stimulator Patient instructed to have device shut off --Does patient have Pacemaker No 06/04/24 12:01 or ICD? When Was Last Pacemaker Check QUESTION #4 FULL TEXT: You/Your Family Experience fever (hyperthermia) with Anesthesia Last Oral Intake Last Oral intake: Last Oral Intake NPO since 00:00 06/04/24 12:01 Meds taken in AM with sips of water? Meds patient instructed to take am of surgery PONV PONV - physical therapist clinic director: PONV - physical therapist clinic director Female No 05/31/24 09:02 HX of Motion Sickness No 05/31/24 09:02 HX of N/V After Surgery No 05/31/24 09:02 Non-Smoker No 05/31/24 09:02 Duration of Surgery greater Yes 05/31/24 09:02 than 60 minutes Number of Risk Factors 1 05/31/24 09:02 PONV Score Low Risk 05/31/24 09:02 Height & Weight Height & Weight: Anesthesia: Height & Weight Height 6 ft 06/04/24 12:01 Weight: 126.9 kg 06/04/24 12:01 Body Mass Index (BMI) 37.9 06/04/24 12:01 Respiratory Assessment Respiratory Assessment - physical therapist clinic director: Respiratory Tract Infection Hx - physical therapist clinic director Hx Respiratory Tract Infection No 05/31/24 09:02 STOP Sleep Apnea STOP Sleep Apnea - physical therapist clinic director: STOP Sleep Apnea - physical therapist clinic director Hx Hypertension No 05/31/24 09:02 Hx Sleep Apnea No 05/31/24 09:02 CPAP No 07/23/19 15:27 BIPAP No 07/22/19 20:36 Do you snore loudly (louder No 05/31/24 09:02 than talking or can be heard Do you often feel tired/ No 05/31/24 09:02 fatigued/ sleepy during daytime? Has anyone observed you stop No 05/31/24 09:02 breathing during sleep? STOP Results Negative 05/31/24 09:02 QUESTION #5 FULL TEXT : Do you snore loudly (louder than talking or can be heard through closed doors)? Tobacco Use History Tobacco Use History - physical therapist clinic director: Tobacco Use History - physical therapist clinic director Tobacco Use Smoking Status Current every day smoker 05/31/24 09:02 Hx Tobacco Use Yes: VAPES 05/31/24 09:02 Years Smoking Packs Smoked per Day Smoking Cessation Date was within the last 15 years Hx Smoking Cessation Date Hx Smoking Cessation No 05/31/24 09:02 Counseling Any additional information?: Yes Tobacco Use: Vapor (Patient vape today.) Hematologic Medial History Hematologic Hx - physical therapist clinic director: Hematologic Medical Hx - clinical documentation specialist Hx of Blood Transfusion No 05/31/24 09:02 Hx of Transfusion in last 3 No 05/31/24 09:02 Months Date of Last Transfusion (if within last 3 months) Ever experience any problems No 05/31/24 09:02 with transfusion(s)? Specify any problems Hx of Preganancy in last 3 N/A 05/31/24 09:02 Months Nurse Filling Out Transfusion DSCHRIBER 05/31/24 09:02 & Questions: Date: 05/31/24 05/31/24 09:02 Time: 09:04 05/31/24 09:02 Patient unable to answer at this time (ie. confused, unrespo /Reproduction History /Reproductive History - physical therapist clinic director: /Reproductive Hx- physical therapist clinic director Hx Now No 05/31/24 09:02 Gestational Age (in weeks): EDC: Hx Hx Para Hx Section SAB No 05/31/24 09:02 Active Medications Active Medications: Current Medications Generic Name Dose Route Start Last Admin Trade Name Freq PRN Reason Stop Dose Admin Clindamycin Phosphate 900 mg in 50 mls @ 75 mls/hr 06/04/24 13:00 Cleocin IV 06/04/24 13:39 PREOP ONE Lactated Ringer's 1,000 mls @ 15 mls/hr 06/04/24 11:45 06/04/24 12:06 IV 06/10/24 01:04 15 mls/hr .Q48H DEVEN Administration Protocol [facility] Medical History Wears glasses Insulin dependent diabetes mellitus Back pain Migraine headache Syncope Dietary restriction Vapes nicotine containing substance History of pain when walking History of edema Diabetic retinopathy associated with type 1 diabetes mellitus Diabetic neuropathy Osteomyelitis of foot, right, acute DKA (diabetic ketoacidoses) Cellulitis of leg Sepsis Type 1 diabetes mellitus Home Medications ?Medication ?Instructions ?Recorded ?Last Taken ?Type blood sugar diagnostic (FreeStyle #150 ea 10/05/21 Unknown Rx Lite Strips) lancets 28 gauge (FreeStyle #150 ea 09/06/22 Unknown Rx Lancets) FreeStyle Monse 3 Sensor #2 ea 12/23/23 Unknown Rx (blood-glucose sensor) insulin aspart U-100 100 unit/mL 40 unit (0.4 mL) subcut TID #36 mL 03/22/24 06/03/24 Rx (3 mL) subcutaneous pen (Novolog FlexPen U-100 Insulin aspart) pen needle, diabetic 32 gauge x #200 ea 03/22/24 Unknown Rx / (BD Ultra-Fine Amy Pen Needle) varenicline 0.5 mg (11)-1 mg (42) See Rx Instructions PO PER PKG DIR 05/10/24 Unknown Rx tablets in a dose pack (Chantix #53 tabs Starting Month Box) blood-glucose sensor (FreeStyle #6 ea 05/13/24 Unknown Rx Monse 3 Plus Sensor device) insulin glargine 100 unit/mL (3 40 unit subcut QHS 05/31/24 06/03/24 History mL) subcutaneous pen (Lantus Solostar U-100 Insulin) fenofibrate nanocrystallized 145 145 mg PO QDAY #90 tabs 06/03/24 Unknown Rx mg tablet doxycycline hyclate 100 mg capsule 100 mg PO DAILY #10 caps 06/04/24 Unknown Rx oxycodone-acetaminophen 5 mg-325 1 tab PO Q8H PRN pain 7 days #28 06/04/24 Unknown Rx mg tablet tabs Allergy/AdvReac Type Severity Reaction Status Date / Time cefprozil (From Cefzil) Allergy Unknown Unknown Verified 06/04/24 12:00 Environmental Allergies: Allergy Hives Verified 06/04/24 12:00 Uncoded Family History Father Heart disease Hypertension Mother Diabetes Thyroid disorder Surgical History History of amputation of lesser toe of right foot Social History household members: spouse current occupational status: unemployed Smoking Status: Current every day smoker tobacco type: e-cigarettes Electronic Cigarette Use: with nicotine quit status: considering quitting alcohol intake: never substance use type: does not use what type of physical activity do you participate in: other details: Sometimes do you feel safe at home: Yes Review of Systems (Anesthesia) ROS Narrative System reviewed and no additional complaints, except as documented.
--- NOTE | 2024-06-04 12:40 | RAD_ITS ---
INDICATION: EXCISION OF RT 4TH METATARSAL HEAD EXAMINATION/TECHNIQUE: X-RAY - RIGHT XR Foot 2 Views 5 VIEWS COMPARISON: 07/23/2019 FINDINGS: Views of the right foot were obtained intraoperatively for resection of the head of the fifth metatarsal. Images were obtained for documentation. Number of fluoroscopic images: 4. Fluoroscopy time: 6 seconds. Radiation dose: 0.026 mGy. RAD/Foot 2 Views IMPRESSION: Intraoperative exam as described above. Electronically Signed: Jese Shaffer MD at 13:54 EST ,
[2024-06-04] MEDS: Clindamycin 900 MG/50 ML BAG 75 MG IV (13:00)
--- NOTE | 2024-06-04 13:00 | AMP_PTH ---
PATIENT: SARAH SHEETS LOC: [facility] [place] U#:[id number] AGE/SX: 39/M ROOM: RE06/04/[address]: Dr. George Ambrocio DPM : 1985 BED: DIS: 06/04/2024 SPEC #: [id number] RECD: 06/04/24 16:24 STATUS: CHANA REDemetris #: [id number] NAYLA: 06/04/24 13:[address]: George Ambrocio DEPT: SURGICAL PATHOLOGY RECD BY: Kim Reynoso ENTERED: 06/07/24 11:18 SP TYPE: Amputation OTHR DR: Dr. Maggie Meier MD Tissues: Toe, NOS Procedures: Decalcification bone/plaque Surgery Specimen Level IV HEADER OPERATION: Excision of right fourth metatarsal head PRE-OP DIAGNOSIS: Pressure ulceration sub 4th metatarsal of right foot, deformity 4th metatarsal right foot TISSUE SUBMITTED: 4th metatarsal right foot MICROSCOPIC DIAGNOSIS 4th metatarsal bone of right foot, bone biopsy: Fragments of bone and attached cartilage with mild reactive change. AM. 06/11/2024 MICROSCOPIC DESCRIPTION Slides are reviewed. GROSS DESCRIPTION Received in fixative is one container labeled with the patient's name and designated 4th metatarsal head. The specimen consists of an irregular fragment of white-gilman bone measuring 2.5 x 1.5 x 1.0cm. Watch Inspector sections are submitted in one cassette after decalcification. . 06/07/2024 TC:5 CPT:16664,57738
[2024-06-04 13:10] LABS: Bedside Glucose 91 mg/dL (74-106)
[2024-06-04] MEDS: Bupivacaine Mpf 0.5% 30 ML VIAL (13:20)
[2024-06-04] MEDS: Lidocaine 1% /Epi 1:100 (20ml) 20 ML Vial (13:20)
--- NOTE | 2024-06-04 14:20 | RAD_ITS ---
HISTORY: Postop fourth metatarsal head excision (PACU). TECHNIQUE: XR Foot Min 3 Views. COMPARISON: 07/23/2019. FINDINGS: BONES : Heterogeneous sclerosis and lucency of the first proximal phalanx with widening. Interval amputation of the fourth metatarsal head. Chronic fifth transmetatarsal amputation. Small calcaneal spur at the Achilles tendon insertion. JOINTS: No dislocation. SOFT TISSUES: Postoperative change with air and edema. RAD/Foot min 3 Views IMPRESSION: Satisfactory alignment of the right foot status post fourth metatarsal head amputation. Chronic fifth transmetatarsal amputation. Heterogeneous sclerosis and lucency of the first proximal phalanx, which may be secondary to chronic osteomyelitis or trauma. Electronically Signed: Radha Goddard MD at 8:31 EST ,
--- NOTE | 2024-06-04 14:32 | OP.PCM_ITS ---
Problems Associated Problem List Diagnoses (1) Ulcer of right foot with fat layer exposed: (2) Type 1 diabetes mellitus with diabetic polyneuropathy: (3) Delayed wound healing: (4) Diabetes mellitus with foot ulcer: Operative Report (Standard) Operative Information Surgery/Procedure Performed: 1. Excision fourth metatarsal head Right foot Surgeon: George Ambrocio Date of Procedure: 06/04/24 Procedure Start Time: 13:26 Procedure Stop Time: 14:01 Pre-Operative Diagnosis: 1. Pressure ulceration sub 4th metatarsal head Right foot 2. DM type I with diabetic peripheral polyneuropathy 3. Diabetes mellitus with Right foot ulceration 4. Delayed wound healing Post-Operative Diagnosis: 1. Pressure ulceration sub 4th metatarsal head Right foot 2. DM type I with diabetic peripheral polyneuropathy 3. Diabetes mellitus with Right foot ulceration 4. Delayed wound healing Select all DRAINS/GRAFTS/IMPLANTS that apply: None Type of Anesthesia: Local (20 cc one-to-one mixture of 1% lidocaine with epinephrine and 0.5% Marcaine plain) and MAC Estimated Blood Loss: < 1mL Specimen collected: Yes Description of specimen(s) removed: Bone fourth metatarsal head right foot Description of surgery: HPI/indication: This is a 39-year-old male who continues to follow in the wound care center for nonhealing ulceration of the plantar aspect of his fourth metatarsal head of the right foot. Ulceration has demonstrated waxing and waning effect with healing and subsequently reopening secondary to ambulation and pushoff of the lateral foot in addition to forefoot supinatus secondary to anterior tibial tendon. He had undergone prior treatments conservatively of local wound care, EpiFix grafting, home therapy exercises, continued offloading with surgical shoe/cam boot/diabetic inserts/felt padding. He has demonstrated some noncompliance in offloading electing for other types of shoe gear or barefoot ambulation. Discussion with patient was had to perform split anterior tibial tendon transfer however patient does want to get back to work sooner and did not want to be off of foot for the tendon transfer. Patient had already undergone prior partial fifth ray amputation with another provider and does ask about removing the portion of bone from the fourth metatarsal head for offloading. Excision of the fourth metatarsal head was discussed in detail with the patient. Patient was in agreement with this procedure to allow for definitive offloading of the ulceration site to allow for healing and a faster return to work. Patient is in agreement and would like to move forward with the surgical intervention. I discussed all previous conservative treatments did fail in terms of definitive wound healing. And patient is ready to move forward with the surgical intervention as previously stated. Procedure was discussed in great detail in addition to typical postoperative course. Discussed risks and benefits of the procedure in addition to all complications. Discussed risks and complications include but are not limited to the following: Pain, continued pain, complex regional pain syndrome, phantom pain, none healing, need for further surgical procedure, swelling, scarring, poor cosmetic result, transfer lesion, contracted toe, deviated toe, cock-up toe, allergic reaction, addiction to pain medication, stroke, heart attack, loss of function, loss of limb, loss of life. Patient is understanding of these and was able to repeat these back. Patient is understanding that the procedure is required for optimal wound healing and to prevent infection and more proximal amputation given the patient's diabetic status and previous history of amputation. Surgical consent was signed and obtained at patient's free will. Patient has undergone medical clearance with PCP and has been cleared for surgical intervention. Diagnostic data was reviewed prior to entering the OR. All questions were answered to the patient's level of satisfaction. Operative limb was signed prior to entering the OR. He was to undergo excision of the fourth metatarsal head at [facility] on 06/04/2024. Patient did request aftercare continue at the wound care center until his sutures are removed, this request was agreed upon. Procedure: Under mild sedation patient brought into the operating placed on table in supine position. Patient was secured to table with safety belt. [place] bump was utilized to bump the right hip and additional blanket bump was then utilized to elevate the right foot. Following induction of IV anesthetic a local anesthetic block was then performed about the lateral foot and fourth metatarsal proximally consisting of 20 cc one-to-one mixture of 1% lidocaine with epinephrine and 0.5% Marcaine plain. A pneumatic ankle tourniquet was then placed about the patient's right ankle. The foot was then scrubbed, prepped, and draped in usual aseptic manner. An Esmarch bandage was then utilized to exsanguinate the right foot and the foot was elevated and the pneumatic ankle tourniquet was inflated to 250 mmHg. At this time attention was directed to the right foot where a [place] was utilized to identify the fourth metatarsal head for incision planning and confirmation of removal of this portion of bone. Ulceration to the plantar aspect of the right foot underlying the fourth metatarsal head was inspected and noted to be healed with newly epithelializing skin as patient had stayed off of his foot for most of the month prior to surgery. A linear incision was made dorsally overlying the fourth metatarsal head utilizing a #15 blade. Incision was deepened utilizing sharp and blunt dissection and care was taken to identify and retract all vital neurovascular structures. Extensor tendon to the fourth digit was identified and retracted medially and protected throughout the duration of this case. The periosteum was then identified and incised exposing the fourth metatarsal neck at the operative field. The fourth metatarsophalangeal joint was identified and was transected utilizing a #15 blade to expose the head of the metatarsal at the operative field. The head of the metatarsal does appear to have some cartilage damage to the plantar aspect consisting of denuded aspect in addition to chronic pressure changes. A sagittal saw was utilized to transect the fourth metatarsal head just proximal to the surgical neck. The f ourth metatarsal head was sharply dissected free of soft tissue attachments and passed from the operative field to the table in toto. The fourth metatarsal head was collected a specimen and sent to pathology for analysis. During dissection there was noted to be no purulent drainage and no evidence of necrotic tissue. All tissue did appear healthy and viable. The fourth metatarsal head was noted to be of good consistency and healthy appearing at the dorsal aspect with the denuded cartilage plantarly in addition to the chronic pressure/inflammatory changes. The transected portion of bone proximally was noted to be hard and of good consistency indicating viability. Following removal of the fourth metatarsal head the site was copiously irrigated with normal sterile saline. Next, final fluoroscopic imaging was obtained confirming excision of the fourth metatarsal head. Remaining portion of the metatarsal was smoothed with a rasp to ensure no rough edges or plantar prominences. Site of healed ulceration was palpated confirming no presence of bone and proper offloading was ensured. Deep tissue was then closed utilizing 4-0 Vicryl. Subcutaneous tissue closed utilizing 4-0 Monocryl. The skin was then reapproximated utilizing 4-0 Prolene in simple interrupted fashion. The pneumatic ankle tourniquet was deflated and a prompt hyperemic response was noted to the digits of the right foot. Incision site was then dressed with Betadine soaked Adaptic, 4 x 4 gauze, Kerlix, and 4 inch Carlos wrap rolled onto the right foot. Patient tolerated the procedure and anesthesia well was transported to PACU vital signs stable vascular status intact to the right foot. Postoperative imaging was obtained and reviewed prior to leaving. Patient and were given discharge instructions for aftercare. Discussed with the his aftercare and she is understanding of these instructions. Patient will be permitted to be weightbearing as tolerated in a surgical shoe. He is to keep dressings clean, dry, and intact and utilize cast bag when showering. He will take all prescribed medication as instructed. He is to continue to elevate the right foot at all times of rest for postoperative edema control. Patient has first postoperative appointment with me in the wound care center for continued aftercare. Surgical Findings: No necrotic tissue or purulent drainage noted during surgery Fourth metatarsal head noted to have healthy appearing cartilage and of hard consistency See operative note for findings Plant Physiologist copyright clerk: Yes Sewer Pipe Sorter: Dr. Sudha Winters, DPM PGY-1 Tasks completed by certified first assistant: Closing, Dissecting tissue, Removing tissue and Other (cutting bone) Complications Complications: No Admit VTE Documentation VTE Present on Admission: No VTE Mechan Device Prophylaxis: SCD's VTE Pharm Prophylaxis ordered?: No Reason prophylaxis not ordered: Procedure Not Indicated and Treatment Not Indicated
--- NOTE | 2024-06-04 14:56 | PCM.POST.ANE ---
Anesthesia: Postop Eval I Current Vital Signs Temperature: 97.6 F Pulse Rate: 83 Blood Pressure: 87/60 Respiratory Rate: 16 Pulse Ox: 93 Oxygen Delivery Method: Room Air Assessment Airway patent: Yes Spontaneous unlabored respirations: Yes Mental status: Awake and Calm nausea: No Vomiting: No Anesthesia Complication: No Fluid Hydration Crystalloid volume administer (ml): 500 Total IV fluid infused: 500 Progress Note Anesthesia document: Postop Eval 1 completed: Yes
--- NOTE | 2024-06-04 14:57 | POSTOPAN2_ITS ---
Anesthesia Postop Eval I Sum Postop Eval Completion status Anesthesia document: Postop Eval 1 completed: Yes Anesthesia Postop Eval I Summary Anesthesia Postop Eval I Summary: Anesthesia Postop Eval I: Assessment Summary Airway patent Yes 06/04/24 14:57 PRAWN TRAWLER HAND.MDOT Spontaneous unlabored Yes 06/04/24 14:57 PRAWN TRAWLER HAND.MDOT respirations Mental status Awake,Calm 06/04/24 14:57 PRAWN TRAWLER HAND.MDOT nausea No 06/04/24 14:57 PRAWN TRAWLER HAND.MDOT Vomiting No 06/04/24 14:57 PRAWN TRAWLER HAND.MDOT Anesthesia Postop Eval I: Fluid Summary Crystalloid volume administer 500 06/04/24 14:57 PRAWN TRAWLER HAND.MDOT (ml) Colloids volume administered ( ml) Blood Product volume administered (ml) Total IV fluid infused 500 06/04/24 14:57 PRAWN TRAWLER HAND.MDOT Anesthesia Postop Eval I: Summary Notes Anesthesia Complication No 06/04/24 14:57 PRAWN TRAWLER HAND.MDOT Anesthesia Complication Comment: Post-operative progress note Anesthesia: Postop Eval II Evaluation Mental status: Awake and Calm Pain Level: 0 nausea: No Vomiting: No Complications Anesthesia Complication: No
--- NOTE | 2024-06-04 14:57 | PCM.POSTANE2 ---
Anesthesia Postop Eval I Sum Postop Eval Completion status Anesthesia document: Postop Eval 1 completed: Yes Anesthesia Postop Eval I Summary Anesthesia Postop Eval I Summary: Anesthesia Postop Eval I: Assessment Summary Airway patent Yes 06/04/24 14:57 CREATIVE SERVICES INTERN.MDOT Spontaneous unlabored Yes 06/04/24 14:57 CREATIVE SERVICES INTERN.MDOT respirations Mental status Awake,Calm 06/04/24 14:57 CREATIVE SERVICES INTERN.MDOT nausea No 06/04/24 14:57 CREATIVE SERVICES INTERN.MDOT Vomiting No 06/04/24 14:57 CREATIVE SERVICES INTERN.MDOT Anesthesia Postop Eval I: Fluid Summary Crystalloid volume administer 500 06/04/24 14:57 CREATIVE SERVICES INTERN.MDOT (ml) Colloids volume administered ( ml) Blood Product volume administered (ml) Total IV fluid infused 500 06/04/24 14:57 CREATIVE SERVICES INTERN.MDOT Anesthesia Postop Eval I: Summary Notes Anesthesia Complication No 06/04/24 14:57 CREATIVE SERVICES INTERN.MDOT Anesthesia Complication Comment: Post-operative progress note Anesthesia: Postop Eval II Evaluation Mental status: Awake and Calm Pain Level: 0 nausea: No Vomiting: No Complications Anesthesia Complication: No
== END 2024-06-04 15:25 | disposition home or self-care (01) ==
LOC: SDC 11:36 → AC 11:37
PROVIDERS: PCP Internal Medicine; Referring Provider Student in an Organized Health Care Education/Training Program; Visit Provider Student in an Organized Health Care Education/Training Program
PROC: (CPT 28112; principal; 2024-06-04 12:45)
DX: E10.621 Type 1 diabetes mellitus with foot ulcer (principal); L97.512 Non-pressure chronic ulcer of other part of right foot with fat layer exposed; E10.42 Type 1 diabetes mellitus with diabetic polyneuropathy; Z79.4 Long term (current) use of insulin; F17.290 Nicotine dependence, other tobacco product, uncomplicated
CPT/HCPCS: 28112; 01480; 73620; 73630; 76000; 82962; 85025; 88305; 88311; J7120; J2405

== ENCOUNTER 2024-06-24 09:15 | Outpatient (RCR) | payer MEDICAID, SELFPAY ==
[2024-06-13 00:45] VITALS: BP 138/75; PULSE 101; RESP 18; TEMP 36.4; BMI 35.9
[2024-06-17 09:05] VITALS: BP 130/84; PULSE 86; RESP 18; TEMP 35.7; BMI 35.9
--- NOTE | 2024-06-17 13:28 | PCM.WC.PN ---
History of Present Illness Date of Service: 06/17/24 Chief Complaint: right plantar foot ulcer and right leg ulcer History of Wound: This 38-year-old diabetic male presents to the wound healing center for a subfourth metatarsal ulceration of the right foot. 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 He states he tried to care for the ulceration for roughly 2 to 3 weeks in which it was not healing and presented to office. In office he did undergo debridement of the site continued offloading in cam boot however did not obtain his dressing supplies and was performing daily changes of wet to dry gauze. He was referred to the wound care center for applications of advanced wound care product. He states no pain secondary to diabetic peripheral polyneuropathy. He denies N/V/F/chills. He denies further complaints. Subjective Subjective This is a 39-year-old male who continues to follow in the wound care center for plantar ulceration of the fourth metatarsal head of the right foot. He did undergo excision of the fourth metatarsal head on 06/04/2024. Has continued to keep dressings clean, dry, and intact to the right foot. Continues to elevate at times of rest for postoperative edema control. Continues ambulation in surgical shoe and states no difficulty. Denies pain to the foot. Denies further complaints. Objective Data Objective Data Vital Signs: Vital Signs Temp Pulse Resp BP O2 Del Method 96.3 F L 86 18 130/84 H Room Air 06/17/24 09:05 06/17/24 09:05 06/17/24 09:05 06/17/24 09:05 06/17/24 09:05 Oxygen Delivery Method Room Air Weight: 120.202 kg Body Mass Index (BMI) 35.9 Physical Exam Const alert, oriented x3 and no apparent distress General Appearance: cooperative HEENT normocephalic Eyes Eyes Narrative: Wears glasses General Eye: normal appearance of both eyes Neck General: normal visual inspection Lymph Lymphatic: no lymphadenopathy noted and no lymphedema noted Resp normal respiratory effort Cardio regular rate and regular rhythm Extremity Extremity Narrative: Vascular: DP and PT pulses palpable right foot. Capillary fill time less than 4 seconds to digits right foot. No pedal edema is noted. Dermatological: Skin is mildly xerotic to the plantar aspect. Ulceration subfourth metatarsal head right foot has healed. Sutures intact to dorsal aspect of right foot overlying fourth metatarsal head. No signs of infection. Subfourth metatarsal head left foot demonstrates slight hyperkeratosis of pre-ulcerative lesion, but improved with offloading insert. Neurologic: Decreased protective sensation bilateral foot secondary to diabetic peripheral polyneuropathy. Musculoskeletal: Muscle strength 5 of 5 age-appropriate. Partial fifth ray amputation is noted to the right foot. Decreased range of motion of the ankle joint in dorsiflexion with the knee extended without pain or crepitus. Decreased range of motion of the first metatarsophalangeal joint without pain or crepitus. Skin no rashes or lesions noted, skin turgor normal and no jaundice Neuro moves all extremities Debridement Note Debridement Note No debridement was completed: No debridement was completed today Post-Debridement Measurements and Additional Note: Post-Debridement Measurements/Treatment RENETTA - Nurse 1 - General Ulcer Assessment Start: 06/17/24 09:05 Freq: Status: Active Protocol: LORI Activity Type Activity Date Activity User E-sign Co-sign Detail Recorded Client Recorded Date Recorded By Document 06/17/24 09:05 [id number] 06/17/24 09:13 KW 06/17/24 09:05 - Today's Visit Information Type of service Follow-up Visit (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 ) Arrival Mode Ambulatory Patient Identification Verified (Name & Yes ) Height and Weight Body Mass Index (BMI) 35.9 BMI Classification Obese Vital Signs Temperature (97.8 F-99.1 F) 96.3 F L Temperature Source Temporal Pulse Rate (60-100) 86 Pulse Location Monitor Respiratory Rate (12-18) 18 Respiratory rate source Observation Oxygen Delivery Method Room Air Blood Pressure (90/60-120/80) 130/84 H Blood Pressure Mean (mm Hg) 99 Source Monitor Position Semi-Fowlers Blood Pressure Location Left Arm History Since Last Visit- (Skip if this is Patient's initial visit) Have you changed medications since your No last visit? Any new allergies or adverse reactions No Had a fall/change in ADL's that may No increase risk of falls Signs or symptoms of abuse and/or No neglect since last visit Have you been in the hospital since your No last visit? Has dressing in place as prescribed Yes Has compression in place as prescribed Yes Has offloadiing in place as prescribed Yes Experienced any changes in pain level or No management Left Footwear Regular Shoe Right Footwear Regular Shoe Pain Scale: 0-10 Numeric Is Patient Pain Free? Yes - Nurse 1 - General Ulcer Measurement Start: 06/17/24 09:05 Freq: Status: Active Protocol: Activity Type Activity Date Activity User E-sign Co-sign Detail Recorded Client Recorded Date Recorded By Document 06/17/24 09:05 KW [id number] 06/17/24 09:13 KW 06/17/24 09:05 Wound Center Nurse 1 #4 Lateral Right Plantar Foot -Current Size (cm) - Length 0.1 -Current Size (cm) - Width 0.1 -Current Size (cm) - Depth 0 -Total Square Cm 0.01 -Date of Last Picture (Recall this 06/17/24 field) -Texture (Yu-wound Skin Appearance) Assessed -Moisture (Yu-wound Skin Appearance) Assessed -Color (Yu-wound Skin Appearance) Assessed -Temperature (Yu-wound Skin No Abnormality Appearance) (Pt Warm) -Tenderness on Palpation (Yu-wound No Skin Appearance) -Ulcer Cleansing Soap and Water -Wound Comment(s) sutures intact WC - Nurse 2 - General Ulcer CM Notes Start: 06/17/24 09:05 Freq: Status: Active Protocol: Activity Type Activity Date Activity User E-sign Co-sign Detail Recorded Client Recorded Date Recorded By Document 06/17/24 09:52 BMF [id number] 06/17/24 09:55 BMF Edit Result 06/17/24 09:52 BMF (1) 10.05.07.7 06/17/24 13:01 BMF Document 06/17/24 09:58 BMF [id number] 06/17/24 10:08 BMF Edit Result 06/17/24 09:58 BMF (2) [id number] 06/17/24 10:16 BMF Undo 06/17/24 09:58 BMF wrong pt 10.10.25.7 06/17/24 13:02 BMF (1) #4 Lateral Right Plantar Foot - Post Debridement (cm) - Length => 0.1 - Post Debridement (cm) - Width => 0.1 - Post Debridement (cm) - Depth => 0.1 - Total Square (Post) (cm) => 0.01 - Area of Debridement (cm) - Length => 0.1 - Area of Debridement (cm) - Width => 0.1 - Total Square (Area) (cm) => 0.01 - Wound Comment(s) => pad/protect. (2) #4 Lateral Right Plantar Foot - Post Debridement (cm) - Length => 3.4 - Post Debridement (cm) - Width => 3 - Post Debridement (cm) - Depth => 0.1 - Total Square (Post) (cm) => 10.2 - Area of Debridement (cm) - Length => 3.4 - Area of Debridement (cm) - Width => 3 - Total Square (Area) (cm) => 10.2 - Bleeding Controlled with Pressure => Pressure,Silver => Nitrate - Apply Skin Sub - 1st 25 sq cm - Feet => 1 - Epifix Mesh (per sq cm) => 11 06/17/24 09:52 Wound Center Nurse 2 -Time 09:52 -Post Debridement (cm) - Length 0.1 -Post Debridement (cm) - Width 0.1 -Post Debridement (cm) - Depth 0.1 -Total Square (Post) (cm) 0.01 -Area of Debridement (cm) - Length 0.1 -Area of Debridement (cm) - Width 0.1 -Total Square (Area) (cm) 0.01 -Wound/Ulcer Outcome Not Healed -Bleeding Controlled with NA -Wound Comment(s) pad/protect. Pain Scale: 0-10 Numeric Is Patient Pain Free? Yes WC - Nurse 3 - General Ulcer D/C NN Start: 06/17/24 09:05 Freq: Status: Active Protocol: Activity Type Activity Date Activity User E-sign Co-sign Detail Recorded Client Recorded Date Recorded By Document 06/17/24 09:58 KW [id number] 06/17/24 10:09 KW 06/17/24 09:58 Wound Care Center Nurse 3 #4 Lateral Right Plantar Foot -Primary Dressing Applied NonAdherent Contact Layer -Other Dressing betadine -Primary Dressing Covered/Secured with Dry Gauze & Roll Gauze, Secured with Tape Pain Scale: 0-10 Numeric Is Patient Pain Free? Yes WC - Visit Discharge Discharge Condition Stable Ambulatory Status Ambulatory Transportation Private Auto Medication Reconcilliation completed & No provided to patient/care provider Clinical Summary of Care Provided Yes Assessment/Plan Assessment/Plan (1) Ulcer of right lower extremity with fat layer exposed: CODE(S): L97.912 - Non-pressure chronic ulcer of unspecified part of right lower leg with fat layer exposed (2) Type 1 diabetes mellitus with diabetic polyneuropathy: CODE(S): E10.42 - Type 1 diabetes mellitus with diabetic polyneuropathy (3) Diabetes mellitus with foot ulcer: CODE(S): E11.621 - Type 2 diabetes mellitus with foot ulcer; L97.509 - Non-pressure chronic ulcer of other part of unspecified foot with unspecified severity (4) Delayed wound healing: CODE(S): T14.8XXD - Other injury of unspecified body region, subsequent encounter PLAN: Plan Patient seen and evaluated He presents today for continued postoperative care s/p excision of fourth metatarsal head of the right foot. DOS 06/04/2024. POD #13 He has continued to keep dressings clean, dry, and intact to the right foot. Utilizes cast bag when showering. Has continued to elevate right foot at times of rest for postoperative edema control Continues to ambulate in the surgical shoe without difficulty. Dressings removed and site inspected. Sutures intact to dorsal aspect of the right foot overlying the fourth metatarsal head. No signs of infection. Ulceration to the plantar aspect of the fourth metatarsal head has healed. Incision site dressed with Betadine soaked Adaptic, 4 x 4 gauze, Kerlix, and 4 inch Carlos wrap rolled onto the foot. He was returned to surgical shoe for continued ambulation He will continue to keep dressings clean, dry, and intact to the right foot. Continue to utilize cast bag when showering to remain compliant. Continue elevation of the right foot at all times of rest for postoperative edema control May continue to remain in protective weightbearing status to the right foot with the assistance of surgical shoe. Discussed suture removal in 1 week At this time prognosis is good and he is healing well with plantar ulceration healed post excision of the fourth metatarsal head. Patient denies pain and is very happy with the procedure. He will RTC in 1 week to the wound care center for continued postoperative care s/p excision of fourth metatarsal head right foot
--- NOTE | 2024-06-18 10:57 | WC ---
PHOTO 06/17/24 RIGHT LAT PLANTAR
[2024-06-24 09:13] VITALS: BP 139/91; PULSE 85; RESP 18; TEMP 36.6; BMI 35.9
--- NOTE | 2024-06-24 09:31 | PN.PCM_ITS ---
History of Present Illness Date of Service: 06/24/24 Chief Complaint: right plantar foot ulcer and right leg ulcer History of Wound: This 38-year-old diabetic male presents to the wound healing center for a subfourth metatarsal ulceration of the right foot. 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 He states he tried to care for the ulceration for roughly 2 to 3 weeks in which it was not healing and presented to office. In office he did undergo debridement of the site continued offloading in cam boot however did not obtain his dressing supplies and was performing daily changes of wet to dry gauze. He was referred to the wound care center for applications of advanced wound care product. He states no pain secondary to diabetic peripheral polyneuropathy. He denies N/V/F/chills. He denies further complaints. Subjective Subjective This is a 39-year-old male who continues to follow in the wound care center for plantar ulceration of the fourth metatarsal head of the right foot. He did undergo excision of the fourth metatarsal head on 06/04/2024. Has continued to keep dressings clean, dry, and intact to the right foot. Continues to elevate at times of rest for postoperative edema control. Continues ambulation in surgical shoe and states no difficulty. States he is ready for suture removal. Denies pain to the foot. Denies further complaints. Objective Data Objective Data Vital Signs: Vital Signs Temp Pulse Resp BP O2 Del Method 97.8 F 85 18 139/91 H Room Air 06/24/24 09:13 06/24/24 09:13 06/24/24 09:13 06/24/24 09:13 06/17/24 09:05 Oxygen Delivery Method Room Air Weight: 120.202 kg Body Mass Index (BMI) 35.9 Physical Exam Const alert, oriented x3 and no apparent distress General Appearance: cooperative HEENT normocephalic Eyes Eyes Narrative: Wears glasses General Eye: normal appearance of both eyes Neck General: normal visual inspection Lymph Lymphatic: no lymphadenopathy noted and no lymphedema noted Resp normal respiratory effort Cardio regular rate and regular rhythm Extremity Extremity Narrative: Vascular: DP and PT pulses palpable right foot. Capillary fill time less than 4 seconds to digits right foot. No pedal edema is noted. Dermatological: Skin is mildly xerotic to the plantar aspect. Ulceration subfourth metatarsal head right foot remains healed. Sutures intact to dorsal aspect of right foot overlying fourth metatarsal head. No signs of infection. Subfourth metatarsal head left foot demonstrates slight hyperkeratosis of pre- ulcerative lesion, but improved with offloading insert. Neurologic: Decreased protective sensation bilateral foot secondary to diabetic peripheral polyneuropathy. Musculoskeletal: Muscle strength 5 of 5 age-appropriate. Partial fifth ray amputation is noted to the right foot. Decreased range of motion of the ankle joint in dorsiflexion with the knee extended without pain or crepitus. Decreased range of motion of the first metatarsophalangeal joint without pain or crepitus. Skin no rashes or lesions noted, skin turgor normal and no jaundice Neuro moves all extremities Debridement Note Debridement Note No debridement was completed: No debridement was completed today Post-Debridement Measurements and Additional Note: Post-Debridement Measurements/Treatment WC - Nurse 1 - General Ulcer Assessment Start: 06/17/24 09:05 Freq: Status: Active Protocol: LORI Activity Type Activity Date Activity User E-sign Co-sign Detail Recorded Client Recorded Date Recorded By Document 06/17/24 09:05 KW [id number] 06/17/24 09:13 KW Document 06/24/24 09:13 DL [id number] 06/24/24 09:19 DL 06/17/24 06/24/24 09:05 09:13 - Today's Visit Information Type of service Follow-up Visit Follow-up Visit (Physician/ELECTRIC ARC FURNACE OPERATOR (Physician/ELECTRIC ARC FURNACE OPERATOR ) ) Arrival Mode Ambulatory Ambulatory Transfer Assistance None Patient Identification Verified (Name & Yes Yes ) Patient Requires Transmission-Based No Precautions Height and Weight Body Mass Index (BMI) 35.9 35.9 BMI Classification Obese Obese Vital Signs Temperature (97.8 F-99.1 F) 96.3 F L 97.8 F Temperature Source Temporal Temporal Pulse Rate (60-100) 86 85 Pulse Location Monitor Monitor Respiratory Rate (12-18) 18 18 Respiratory rate source Observation Observation Oxygen Delivery Method Room Air Blood Pressure (90/60-120/80) 130/84 H 139/91 H Blood Pressure Mean (mm Hg) 99 107 Source Monitor Monitor Position Semi-Fowlers Blood Pressure Location Left Arm History Since Last Visit- (Skip if this is Patient's initial visit) Have you changed medications since your No No last visit? Any new allergies or adverse reactions No No Had a fall/change in ADL's that may No No increase risk of falls Signs or symptoms of abuse and/or No No neglect since last visit Have you been in the hospital since your No No last visit? Has dressing in place as prescribed Yes Yes Has compression in place as prescribed Yes N/A Has offloadiing in place as prescribed Yes Yes Experienced any changes in pain level or No No management Left Footwear Regular Shoe Right Footwear Regular Shoe Pain Scale: 0-10 Numeric Is Patient Pain Free? Yes Yes WC - Nurse 1 - General Ulcer Measurement Start: 06/17/24 09:05 Freq: Status: Active Protocol: Activity Type Activity Date Activity User E-sign Co-sign Detail Recorded Client Recorded Date Recorded By Document 06/17/24 09:05 KW [id number] 06/17/24 09:13 KW Document 06/24/24 09:13 DL [id number] 06/24/24 09:19 DL 06/17/24 06/24/24 09:05 09:13 Wound Center Nurse 1 #4 Lateral Right Plantar Foot -Current Size (cm) - Length 0.1 0.1 -Current Size (cm) - Width 0.1 0.1 -Current Size (cm) - Depth 0 0.1 -Total Square Cm 0.01 0.01 -Date of Last Picture (Recall this 06/17/24 field) -Texture (Yu-wound Skin Appearance) Assessed Assessed -Moisture (Yu-wound Skin Appearance) Assessed Assessed,Dry/ Scaly -Color (Yu-wound Skin Appearance) Assessed Assessed -Temperature (Yu-wound Skin No Abnormality No Abnormality Appearance) (Pt Warm) (Pt Warm) -Tenderness on Palpation (Yu-wound No Skin Appearance) -Ulcer Cleansing Soap and Water Soap and Water -Foul Odor after Cleansing No -Wound Comment(s) sutures intact WC - Nurse 2 - General Ulcer CM Notes Start: 06/17/24 09:05 Freq: Status: Active Protocol: Activity Type Activity Date Activity User E-sign Co-sign Detail Recorded Client Recorded Date Recorded By Document 06/17/24 09:52 BMF [id number] 06/17/24 09:55 BMF Edit Result 06/17/24 09:52 BMF (1) 10.10.25.7 06/17/24 13:01 BMF Document 06/17/24 09:58 BMF [id number] 06/17/24 10:08 BMF Edit Result 06/17/24 09:58 [facility] (2) [id number] 06/17/24 10:16 BMF Undo 06/17/24 09:58 BMF wrong pt 10.10.25.7 06/17/24 13:02 [facility] (1) #4 Lateral Right Plantar Foot - Post Debridement (cm) - Length => 0.1 - Post Debridement (cm) - Width => 0.1 - Post Debridement (cm) - Depth => 0.1 - Total Square (Post) (cm) => 0.01 - Area of Debridement (cm) - Length => 0.1 - Area of Debridement (cm) - Width => 0.1 - Total Square (Area) (cm) => 0.01 - Wound Comment(s) => pad/protect. (2) #4 Lateral Right Plantar Foot - Post Debridement (cm) - Length => 3.4 - Post Debridement (cm) - Width => 3 - Post Debridement (cm) - Depth => 0.1 - Total Square (Post) (cm) => 10.2 - Area of Debridement (cm) - Length => 3.4 - Area of Debridement (cm) - Width => 3 - Total Square (Area) (cm) => 10.2 - Bleeding Controlled with Pressure => Pressure,Silver => Nitrate - Apply Skin Sub - 1st 25 sq cm - Feet => 1 - Epifix Mesh (per sq cm) => 11 06/17/24 09:52 Wound Center Nurse 2 -Time 09:52 -Post Debridement (cm) - Length 0.1 -Post Debridement (cm) - Width 0.1 -Post Debridement (cm) - Depth 0.1 -Total Square (Post) (cm) 0.01 -Area of Debridement (cm) - Length 0.1 -Area of Debridement (cm) - Width 0.1 -Total Square (Area) (cm) 0.01 -Wound/Ulcer Outcome Not Healed -Bleeding Controlled with NA -Wound Comment(s) pad/protect. Pain Scale: 0-10 Numeric Is Patient Pain Free? Yes WC - Nurse 3 - General Ulcer D/C NN Start: 06/17/24 09:05 Freq: Status: Active Protocol: Activity Type Activity Date Activity User E-sign Co-sign Detail Recorded Client Recorded Date Recorded By Document 06/17/24 09:58 [email or web address] [id number] 06/17/24 10:09 KW 06/17/24 09:58 Wound Care Center Nurse 3 #4 Lateral Right Plantar Foot -Primary Dressing Applied NonAdherent Contact Layer -Other Dressing betadine -Primary Dressing Covered/Secured with Dry Gauze & Roll Gauze, Secured with Tape Pain Scale: 0-10 Numeric Is Patient Pain Free? Yes WC - Visit Discharge Discharge Condition Stable Ambulatory Status Ambulatory Transportation Private Auto Medication Reconcilliation completed & No provided to patient/care provider Clinical Summary of Care Provided Yes Assessment/Plan Assessment/Plan (1) Ulcer of right lower extremity with fat layer exposed: CODE(S): L97.912 - Non-pressure chronic ulcer of unspecified part of right lower leg with fat layer exposed (2) Type 1 diabetes mellitus with diabetic polyneuropathy: CODE(S): E10.42 - Type 1 diabetes mellitus with diabetic polyneuropathy (3) Diabetes mellitus with foot ulcer: CODE(S): E11.621 - Type 2 diabetes mellitus with foot ulcer; L97.509 - Non-pressure chronic ulcer of other part of unspecified foot with unspecified severity (4) Delayed wound healing: CODE(S): T14.8XXD - Other injury of unspecified body region, subsequent encounter PLAN: Plan Patient seen and evaluated He presents today for continued postoperative care s/p excision of fourth metatarsal head of the right foot. DOS 06/04/2024. POD #20 He has continued to keep dressings clean, dry, and intact to the right foot. Utilizes cast bag when showering. Has continued to elevate right foot at times of rest for postoperative edema control Continues to ambulate in the surgical shoe without difficulty. Dressings removed and site inspected. Sutures intact to dorsal aspect of the right foot overlying the fourth metatarsal head. No signs of infection. Ulceration to the plantar aspect of the fourth metatarsal head remains healed. Sutures removed today atraumatically. Skin demonstrates faint cicatrix at the incision site with skin well coapted. Incision site painted with Betadine and dressed with 4 x 4 gauze, Kerlix, and 4 inch Carlos wrap rolled onto the foot. He was returned to surgical shoe for continued ambulation He will continue to keep dressings clean, dry, and intact to the right foot for the next 48 hours. Continue to utilize cast bag when showering to remain compliant. After the 48-hour. He may remove dressings and wash foot with soap and water. He was instructed to not soak foot at this time. Continue elevation of the right foot at all times of rest for postoperative edema control May continue to remain in protective weightbearing status to the right foot with the assistance of surgical shoe for the next 48 hours after which he may return to his diabetic shoe with offloading inserts. At this time prognosis is good and he is healing well with plantar ulceration healed post excision of the fourth metatarsal head. Patient denies pain and is very happy with the procedure. With healed status he is being discharged from the wound care center today and will continue to follow in office for postoperative care. He will RTC in 4 weeks in office and the foot and ankle Center for continued postoperative care s/p excision of fourth metatarsal head right foot
== END 2024-07-05 15:21 | disposition home or self-care (01) ==
LOC: WC 09:15
PROVIDERS: PCP Internal Medicine; Referring Provider Student in an Organized Health Care Education/Training Program; Visit Provider Student in an Organized Health Care Education/Training Program
DX: E10.621 Type 1 diabetes mellitus with foot ulcer (principal); L97.519 Non-pressure chronic ulcer of other part of right foot with unspecified severity; E10.42 Type 1 diabetes mellitus with diabetic polyneuropathy; T14.8XXD Other injury of unspecified body region, subsequent encounter
CPT/HCPCS: 15275; Q4186; 99213; G0463

== ENCOUNTER 2024-12-27 10:30 | Outpatient (RCR) | payer MEDICAID, SELFPAY ==
--- NOTE | 2024-11-12 09:47 | HP.PTEVAL_ITS ---
Patient's Visit Information Visit Information Visit Information: SARAH SHEETS is a 39 year old M referred to Physical Therapy by Dr. Maggie Meier MD with a diagnosis of R shoulder pain. Date of Evaluation: 11/12/24 Physical Therapist: Khadar Garber, DPT, OCS, CSCS Visit Plan Frequency: 3x /Week Duration: 4-6 Weeks Plan: 3x/week for 3-6 weeks IE HEP: pendulum, scap circles 15x3x/day, supine stick er adn flexion 10x 2x/day, ACTIVITY MODIFICATION TO AVOID PAIN, sleeping posiition and posture. with HO treat with US nonthermal R subscap tendon, grade 1-2 mobs, PROM R shoulder ir,er,flexion. Progress to strength scap and RC painfree. ensure modifying activity to heal. ice as needed. Subjective Subjective: A lot of R shoulder pain. Walking is OK but reaching is painful and mobility is poor. It has hurt for 4 months for unknown reason. Not sure what started it. Had foot surgery in May but not sure of the position. Pain is anterior lateral R shoulder. Massage helps. Comfortable at rest. Keeps him up at night as it feels stiff and hurts to roll. No numb ness or tingling, maybe some tingling at elbow. Neck can hurt sometimes on R. Treated with muscle relaxers which do not help. 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 \Spends day nap, help cook, playing video games and all are OK. Reaching is a problem Basic ADLs are I but hurts to put shirt on, bathroom Ok, Hurts to reach behind. Pain R shoulder.: Pain Intensity (Out of 10): 0 Pain Intensity Range: 0 and 5 Comment: worse waking up Objective Objective: Walks into PT I without pain. trasnfers I bd and chair. Good balance. Posture is forward head adn protracted scapula B. Tender to touch over subscap tendon R shoulder mostly mdoerately. AROM R shoulder 130 elevation with pain, 33 er with pain, L4 IR with pain, L side is 150 elevation, 70 er, L2 IR. PROM 140 r arm limtied by pain more than endfeel, er is 40 limited by pain, IR is 60 at 80 abduction. reflexes 23 bi and tri B. Sensation WNL to gross light touch B UE. strength is painful with IR mostly on R and 4-/5, otheers 4/5 B er, bi, tri and wrists. sligth pain with flexion R and moreso with empty can. + HK and neer on R, - labral testing., - ext rotation lag, - drop arm. cervical aROM WFL symmetrical and without pain, scap aROM is good B but limited retraction B. Balance/Special Test Scores Quick DASH Score: 38.6350 Goals Goal 1:: Full OH reach adn behind back without pain Goal Time Frame: 4-6 Weeks Goal 2:: Pt feel pain 80% better and 1/10 at worst Goal Time Frame: 4-6 Weeks Goal 3:: I management of condition including HEP Goal Time Frame: 4-6 Weeks Goal 4:: sleep without waking due to pain x 5 days Goal Time Frame: 4-6 Weeks Goal 5:: quickdash score 15 or better Goal Time Frame: 4-6 Weeks Rehabilitation Potential Physical Therapy Diagnosis: R shoulder stiffness and pain limiting comfortable funciton. Rehabilitation Potential: Good Anticipated Interventions Patient/Client Instruction: Educate patient on: Condition and Plan of Care For the Purpose of:: To decrease pain, To increase ROM, To improve nutrient delivery to tissue, To improve muscle performance and motor function, To increase tolerance to activity/condition/position and To improve ability of physical actions for home/community/work/leisure Therapeutic Exercise to Include: Strength training, Balance training, Postural training, Flexibilty training, Passive ROM and Active ROM For the Purpose of:: To decrease pain, To increase ROM, To improve nutrient delivery to tissue, To improve muscle performance and motor function, To increase tolerance to activity/condition/position and To improve ability of physical actions for home/community/work/leisure Manual Therapy Techniques to Include: Mobilization, Passive ROM and Soft tissue mobilization For the Purpose of:: To decrease pain, To increase ROM, To improve nutrient delivery to tissue and To increase tolerance to activity/condition/position Cryotherapy (ice pack, ice massage): Yes Ultrasound (thermal/non thermal): Yes (nonthermal to R subscap tendon) For the Purpose of:: To decrease pain, To decrease swelling/inflammation, To increase ROM and To improve nutrient delivery to tissue Text: Thank you for the opportunity to evaluate your patient. For Medicare and Medicare HMO plans, please review the plan of care and approve it. It will need to be FAXED BACK to us at [phone] for Medicare purposes. For Medicare only, by signing this I certify the plan of care. Please let me know if there are questions or concerns regarding this plan of care. Physician Signature: Date:
--- NOTE | 2024-12-27 10:51 | HP.PTDCSUM ---
Discharge Summary D/C summary: It has been my pleasure to treat SARAH SHEETS referred by Dr. Maggie Meier MD, with the diagnosis of R shoulder pain for a total of 17 visit(s). Discharge Date: 12/27/24 Please see the following information for a summary of their discharge status. Subjective Subjective: Getting stronger but mobilitiy is ti painful behind him and across body. Sleeping is a lot better. Comfortable at rest. Activities normal . Dressing OK. HEP Doing stretches and ROm at home, pullling on band at home. Will see Renea next week. Pain R shoulder.: Pain Intensity (Out of 10): 0 Overall Improvement % Improvement: 60 Objective Objective/Function: AROM is limited on R vs L in er by 10 degrees, IR end range painful to L5, flexion to 143 with pain. Strength is good in rotations and flexion, empty can at 4/5 on R. - cross body stretch i stransiently painful. overall decent improvement since day one but stagnant in improvement last couple weeks Goals Goal 1:: Full OH reach adn behind back without pain Goal Progress: Progressing Goal 2:: Pt feel pain 80% better and 1/10 at worst Goal Progress: 60% Goal 3:: I management of condition including HEP Goal Progress: Goal Met physically Goal 4:: sleep without waking due to pain x 5 days Goal Progress: Progressing Goal 5:: quickdash score 15 or better Goal Progress: Not Progressing Plan Plan: d/c, pt to contact and visit doctor regarding other options. To this theerapist seeem slight frozen shoulder, no signs of RCT or labral pathology in clinic today. D/C Information Discharge Comments: pt to go back to doctor regarding other options due to stagnant progress. d/c sentence: If there are questions or concerns regarding this patient's physical therapy, please feel free to call me at [phone]. Thank you for the referral of this patient. Sincerely, Khadar Garber, DPT, OCS, CSCS Balance/Gait/Functional tests Balance/Special Test Scores Quick DASH Score: 20.4525 Improvement % Improvement: 60
== END 2024-12-27 19:00 | disposition home or self-care (01) ==
LOC: PT 10:30
PROVIDERS: PCP Internal Medicine; Referring Provider Internal Medicine; Visit Provider Internal Medicine
DX: M25.511 Pain in right shoulder (principal)
CPT/HCPCS: 97035; 97110; 97140; 97161; 97164; 97530

== ENCOUNTER → 2025-03-25 | Outpatient (CLI) | payer MEDICAID, SELFPAY ==
--- NOTE | 2025-03-25 16:15 | RAD_ITS ---
PROCEDURE: L/S SPINE MIN 4 VIEWS 03/25/2025 REASON FOR EXAM: SPRAIN OF LIGAMENTS OF LUMBAR SPINE TECHNIQUE: Procedure Code: RADSPLS Modality: DX Procedure: L/S SPINE MIN 4 VIEWS COMPARISON: None FINDINGS: Curvature: No evidence of scoliosis Other findings: Grade 1 anterior listhesis of L5 on S1. Spondylolysis of the pars interarticularis of the L5 vertebrae. Moderate degree of disc space narrowing at the L4-L5 level. Other: RAD/L/S Spine Min 4 Views IMPRESSION: Grade 1 anterior listhesis of L5 on S1. Spondylolysis of the pars interarticul amanda of the L5 vertebrae. Moderate degree of disc space narrowing at the L4-L5 level. Reading Location: [place] [id number]
== END | disposition home or self-care (01) ==
LOC: RAD 16:10
PROVIDERS: PCP Internal Medicine; Referring Provider Internal Medicine; Visit Provider Chiropractor
DX: S33.5XXA Sprain of ligaments of lumbar spine, initial encounter (principal)
CPT/HCPCS: 72110

== ENCOUNTER → 2025-04-26 | Outpatient (CLI) | payer MEDICAID, SELFPAY ==
--- NOTE | 2025-04-26 15:20 | MRI_ITS ---
PROCEDURE: SPINE LUMBAR (ROUTINE) 04/26/2025 REASON FOR EXAM: RADICULOPATHY, LUMBAR REGION TECHNIQUE: Procedure Code: MRISPL Modality: MR Procedure: SPINE LUMBAR (ROUTINE) COMPARISON: X-ray lumbar spine, 03/25/2025 and 04/19/2025 FINDINGS: Vertebrae: There is abnormal bone marrow signal in the L4 and L5 vertebral bodies on the STIR and T1 weighted images, but less so on the T2 weighted images, consistent with acute edema, and worrisome for infection or metastatic disease. Alignment: There is maintenance of the normal lumbar lordosis. Conus Medullaris: The conus medullaris terminates normally at the T12-L1 level. L1-2: Unremarkable. L2-3: Unremarkable. L3-4: Unremarkable. L4-5: There is increased signal in the L4-5 intervertebral disc on the T2 and STIR images and decreased signal on the T1 weighted images consistent with edema. There is extension of edema into the left paravertebral soft tissues and psoas muscle. There is soft tissue extension into the left L4-5 neural foramen with posterior displacement of the L4 nerve root. L5-S1: There is a left central disc extrusion, measuring 10 mm in transverse dimension 6 mm in AP dimension and 10 mm in vertical dimension. There is posterior displacement of the left S1 nerve root sleeve. Sacrum: There is increased signal in the S3 and S4 vertebral bodies on the T1 and T2 images and low signal on the STIR images, consistent with benign hemangiomas. The remaining paravertebral soft tissues are unremarkable. MRI/Spine Lumbar (Routine) IMPRESSION: 1. Abnormal signal within the L4-5 intervertebral disc, may indicate discitis. There is abnormal signal within the L4 and L5 vertebral bodies consistent with acute edema. There is extension into the left paravertebral soft tissues and psoas muscle, at the L4-5 level. There is also displacement of the L4 nerve root. 2. There is a left central disc extrusion at L5-S1 with posterior displacement of the left S1 nerve root sleeve. 3. Other findings as noted. Yellow Alert: Possible L4-5 discitis. The critical findings in the findings and impression above were relayed directl y by me by telephone to Kevin Santana on 04/28/2025 at 1:37 pm with readback verification. Reading Location: [place] [id number]
== END | disposition home or self-care (01) ==
LOC: OPMRI 15:12
PROVIDERS: PCP Internal Medicine; Referring Provider Chiropractor; Visit Provider Chiropractor
DX: M54.16 Radiculopathy, lumbar region (principal)
CPT/HCPCS: 72148

== ENCOUNTER 2025-04-28 17:06 | Inpatient (IN) | payer MEDICAID, SELFPAY ==
[2025-04-28] VITALS (11 sets, daily range): BP systolic 97–146; BP diastolic 61–99; PULSE 99–143; RESP 14–25; TEMP 36.8–38; O2SAT 97–100; BMI 34.9; BMI 33.5
--- NOTE | 2025-04-28 17:14 | EKG12_ITS ---
Test Reason : SOB
--- NOTE | 2025-04-28 17:39 | EX.ED.DYSGE1 ---
HPI History of Present Illness Chief Complaint: Shortness of Breath Informant: patient Onset/Context/Timing Onset: Days and Month(s) (Low back pain for months. Shortness of breath for days.) Context: Gradual Onset Timing: Continuous Current Severity: Moderate Maximum Severity: Moderate Narrative Narrative: 40-year-old male history of type 1 diabetes and prior sepsis. Prior right foot surgery for an amputated infected toe with a metatarsal resection. Send back pain since February. He just recently had an outpatient MRI which shows what they believed to be osteomyelitis of his lumbar spine. He said he was feeling worse started getting short of breath without chest pain. And he came in the emergency department. States he has had chills the last several days. Denies any prior back history or back surgery. He has never had any back injections. Prior similar symptoms: No Recent Illness/Hospitalization: No PFSH [facility] Medical History Hypertriglyceridemia Wears glasses Insulin dependent diabetes mellitus Back pain Migraine headache Syncope Dietary restriction Vapes nicotine containing substance History of pain when walking History of edema Diabetic retinopathy associated with type 1 diabetes mellitus Diabetic neuropathy Osteomyelitis of foot, right, acute DKA (diabetic ketoacidoses) Cellulitis of leg Sepsis Type 1 diabetes mellitus Home Medications ?Medication ?Instructions ?Recorded ?Last Taken ?Type blood sugar diagnostic (FreeStyle #150 ea 10/05/21 Unknown Rx Lite Strips) lancets 28 gauge (FreeStyle #150 ea 09/06/22 Unknown Rx Lancets) blood sugar diagnostic (True #100 ea 09/13/24 Unknown Rx Metrix Glucose Test Strip) pen needle, diabetic 32 gauge x #200 ea 10/12/24 Unknown Rx (BD Ultra-Fine Amy Pen Needle) blood-glucose sensor (FreeStyle #6 ea 03/11/25 Unknown Rx Monse 3 Plus Sensor device) insulin glargine 100 unit/mL (3 40 unit (0.4 mL) subcut QHS #15 mL 03/11/25 04/27/25 Rx mL) subcutaneous pen (Lantus Solostar U-100 Insulin) meloxicam 15 mg tablet 15 mg PO QDAY #30 tabs 04/19/25 04/28/25 Rx tizanidine 6 mg capsule 6 mg PO TID PRN muscle spasticity 04/19/25 04/28/25 Rx #30 caps acetaminophen 500 mg tablet 1,000 mg PO Q6H PRN back pain 04/28/25 04/28/25 History (Acetaminophen Extra Strength) fenofibrate nanocrystallized 145 145 mg PO DAILY 04/28/25 Unknown History mg tablet insulin aspart U-100 100 unit/mL See Protocol subcut TID 04/28/25 Unknown History (3 mL) subcutaneous pen (Novolog FlexPen U-100 Insulin aspart) Allergy/AdvReac Type Severity Reaction Status Date / Time cefprozil (From Cefzil) Allergy Unknown Unknown Verified 04/28/25 17:08 Environmental Allergies: Allergy Hives Verified 04/28/25 17:08 Uncoded Family History Father Heart disease Hypertension Mother Diabetes Thyroid disorder Surgical History History of amputation of lesser toe of right foot Social History household members: spouse current occupational status: unemployed Smoking Status: Former smoker Electronic Cigarette Use: with nicotine quit status: considering quitting alcohol intake: never substance use type: does not use what type of physical activity do you participate in: other details: Sometimes do you feel safe at home: Yes ROS ROS ED ROS Narrative Low back pain for months. Left elbow pain. Constitutional Constitutional ED: Reports chills; Denies fever(s) Eyes Eyes: Denies blurry vision ENT ENT ED: Denies ear pain Cardiovascular Cardiovascular: Denies chest pain Respiratory/Chest Respiratory/Chest: Reports dyspnea; Denies cough or sputum Gastrointestinal Gastrointestinal: Denies abdominal pain, diarrhea, nausea or vomiting Genitourinary Genitourinary ED: Denies dysuria or hematuria Musculoskeletal Musculoskeletal: Denies arthralgias Integumentary Denies abscess Neurologic Neurologic: Denies headache(s) Psychiatric Psychiatric: Denies anxiety Endocrine Endocrinology: Denies cold intolerance Hematologic/Lymphatic Hematologic/Lymphatic: Reports none Allergic/Immunologic Allergic/Immunologic ED: Denies mouth swelling, tongue swelling or urticaria EXAM Physical Exam Narrative Exam Narrative: 4-year-old male sitting upright in bed. Vital signs tachycardic 143 and his blood pressure 90s over 67. Pulse ox 100%. Oral temperature 98. H EENT exam pupils round react light. Moist extremities. Neck nontender no lymphadenopathy. Back nontender. Lungs clear to auscultation bilaterally. Heart tachycardic 140 no murmur. Chest wall ribs nontender. Abdomen soft nontender. Moving all 4 extremities. 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 Normal dorsi plantarflexion. Calves nontender no cords. No edema. Neurologically is awake alert. Answer questions following commands. Left elbow is tenderness. No large effusion. No bursitis. He is able to extend and 80 degrees. He can flex. No axillary lymphadenopathy. Const Vital Signs: 04/28/25 17:06 04/28/25 17:06 04/28/25 17:14 Temperature 98.2 F Temperature Source Oral Pulse Rate 143 H Respiratory Rate 20 H Respiratory Effort Normal Short of Breath Respiratory Depth Normal Respiratory Pattern Normal Blood Pressure 97/67 Blood Pressure Mean 77 Pulse Ox 100 Oxygen Delivery Method Room Air Room Air Room Air 04/28/25 18:06 04/28/25 18:08 04/28/25 19:00 Temperature 98.5 F 100.4 F H Temperature Source Oral Oral Pulse Rate 127 H 125 H 121 H Respiratory Rate 14 17 20 H Respiratory Effort Respiratory Depth Respiratory Pattern Blood Pressure 146/80 H 142/69 H 142/70 H Blood Pressure Mean 102 93 94 Pulse Ox 99 100 100 Oxygen Delivery Method Room Air Room Air 04/28/25 19:27 Temperature 100.4 F H Temperature Source Pulse Rate 116 H Respiratory Rate 20 H Respiratory Effort Respiratory Depth Respiratory Pattern Blood Pressure 139/71 H Blood Pressure Mean 93 Pulse Ox 98 Oxygen Delivery Method MDM MDM MDM Narrative Medical decision making narrative: 40-year-old male type I diabetic just diagnosed with lumbar osteomyelitis. Prior history of sepsis. He is tachycardic and hypotensive. He also has pain in his left elbow. He could have infected elbow joint also. He will be placed on sepsis protocol. IV fluids. IV Zosyn and vancomycin. Cultured. He will be admitted. Repeat ABG doing better at 8:14 PM. His pressures improved his heart rate is improving got a liter of fluid I ordered 2 additional liters. He is being treated as sepsis. MRI showed discitis. He is got a leukocytosis. He is getting acute kidney injury which is possibly from dehydration and the infection. The elbow may or may not be infected but the x-ray was negative. He has already been treated with Zosyn and Vanco. Been cultured up. He has been given Tylenol for his fever. I spoke with the hospitalist will be admitted to the ICU. History & Record Review Discussion w/independent historian: Patient Additional record(s) reviewed:: Prior inpatient record, Prior outpatient record, Prior ED visit and Prior labs Lab Data Attestation: I reviewed the patient's lab results. Lab results narrative: CBC shows a white count of 14.0. H&H 11.9 and 35.7. Platelets 425. 82% neutrophils. Chemistries show sodium 130. Potassium 5.6. Anion gap 17. BUN and creatinine are 27 and 1.69. Glucose is 295. Lactic acid is 2.8. C-reactive protein is elevated at 102. Sed rate is elevated 28. PT/INR are 15, 1.2 and PTT of 32. I reviewed the patient's MRI done prior to his ER evaluation and it discusses a discitis it does not mention an osteomyelitis. Labs: Laboratory Results - last 24 hr 04/28/25 17:41 WBC 14.0 H RBC 4.13 L Hgb 11.9 L Hct 35.7 L MCV 86.4 MCH 28.8 MCHC 33.3 RDW Std Deviation 38.7 RDW Coeff of Sharon 12.2 Plt Count 425 MPV 9.5 Immature Gran % (Auto) 0.600 Neut % (Auto) 82.4 H Lymph % (Auto) 10.7 L [place] % (Auto) 5.4 Eos % (Auto) 0.5 Baso % (Auto) 0.4 Absolute Neuts (auto) 11.5 H Absolute Lymphs (auto) 1.50 Nucleated RBC % 0 ESR 28 H PT 15.0 H INR 1.2 APTT 32.6 Sodium 130 L Potassium 5.6 H Chloride 94 L Carbon Dioxide 18.7 L Anion Gap 17 H BUN 27 H Creatinine 1.69 H Estim Creat Clear Calc 76.67 Est GFR (MDRD) Non-Af 52 L BUN/Creatinine Ratio 15.8 Glucose 295 H Lactic Acid 2.8 H* Calcium 9.7 Total Bilirubin 0.97 AST 21 ALT 25 Alkaline Phosphatase 156 H C-React Prot Ext Range 102.00 H Total Protein 8.9 H Albumin 3.6 Globulin 5.3 H Albumin/Globulin Ratio 0.7 L Radiography Chest X-Ray - ED: 1 View, Read by ED Physician, Heart, Lungs, Mediastinum, Bony Structures, No Acute Disease and Chronic Changes Diagnostic Testing: Clinical Impression(s) from Imaging Studies Chest X-Ray 04/28/25 17:55 IMPRESSION: Lungs appear clear throughout. No pleural effusion or pneumothorax is noted. The cardiomediastinal silhouette is within the normal range. Bilateral acromioclavicular joint degenerative changes are noted. No acute osseous change is seen. Reading Location: [address] Elbow X-Ray 04/28/25 17:55 IMPRESSION: No left elbow joint effusion is seen. No significant arthritic process or joint narrowing is noted. No fracture, dislocation, or other significant osseous or joint space abnormality is seen. Reading Location: [address] Chest x-ray, portable, 2 films 1 view interpreted by myself shows normal cardiac silhouette. Normal lung lucero. No acute abnormalities. Left elbow x-ray, 3 views, interpreted by myself shows no acute abnormality. No fracture. No dislocation. No subcu air. Rhythm Strip Rhythm Strip: Sinus Tach Rate: 138 Ectopy: None EKG Initial EKG: Attestation: I personally reviewed and interpreted this EKG as follows: Interpretation: No Acute Injury Pattern and Sinus Tachycardia Comments: Sinus tachycardia rate of 138 no acute signs of OK or ischemia. Critical Care Time Critical Care Time: Yes Critical care time (excluding procedures): 30-74 minutes, Including time spent:, Discussing w/Patient &/or Family/Tongue Presser, Discussing w/Consultants, Arranging Admission or Transfer, Performing Direct Patient Care at Bedside and - (40 min) Discharge Plan Dx/Rx/DC Orders Clinical Impression: Discitis, Sepsis, Acute kidney injury, History of diabetes mellitus, Acute hypotension Disposition Disposition: [facility]
--- NOTE | 2025-04-28 17:55 | RAD_ITS ---
PROCEDURE: RAD/Chest 1 View (Portable)
--- NOTE | 2025-04-28 17:55 | RAD_ITS ---
PROCEDURE: RAD/Elbow min 3 Views
[2025-04-28 17:56] LABS: Hematocrit 35.7 % (40-54); Hemoglobin 11.9 g/dL (13.0-16.5); Immature Granulocytes Count 0.090 X10^3/uL (0.0-0.0); Mean Corp Hgb Conc 33.3 g/dL (32-36); Mean Corpuscular Volume 86.4 fL (80-94); Mean Platelet Vol. 9.5 fl (6.2-12.0); NRBC Flagged by Analyzer 0 % (0-5); Platelet Count 425 K/mm3 (150-450); RBC Distribution Width CV 12.2 % (11.6-14.6); RBC Distribution Width SD 38.7 fl (35.1-43.9); Red Blood Count 4.13 M/mm3 (4.6-6.2); White Blood Count 14.0 K/mm3 (4.4-11.0)
[2025-04-28] MEDS: Piperacil/Tazobactam 4.5 GM in 0.9% Normal Saline (100mL MB+) 100 ML IV (18:16)
[2025-04-28] MEDS: 0.9% Normal Saline (1000mL) 1,000 ML 999 ML IV (18:19)
[2025-04-28 18:25] LABS: AST(SGOT) 21 U/L (<=37); Alanine Aminotransfer ALT/SGPT 25 U/L (<=46); Albumin, Serum 3.6 g/dL (3.5-5.0); Alkaline Phosphatase 156 U/L (40-129); Anion Gap 17 (5-15); BUN 27 mg/dL (4-19); BUN/Creat Ratio 15.8 RATIO (10-20); CRP 102.00 mg/L (0.0-3.0); Calcium,Total 9.7 mg/dL (7.6-11.0); Carbon Dioxide 18.7 mmol/L (21.0-32.0); Chloride 94 mmol/L (98-108); Estimated Creatinine Clearance 76.67 ml/min (50-250); Globulin 5.3 g/dL (2.2-4.2); Glucose 295 mg/dL (70-99); Potassium 5.6 mmol/L (3.3-5.1)
[2025-04-28 18:29] LABS: Prothrombin Time (Protime)PT. 15.0 SECONDS (11.7-14.9)
[2025-04-28 18:30] LABS: Partial Thromboplast Time 32.6 Seconds (24.1-36.2)
[2025-04-28] MEDS: Ketorolac 30 MG/ML Syringe IV (19:23)
[2025-04-28] MEDS: fentaNYL 100 MCG/2 ML Ampul 50 MCG IV (19:23)
[2025-04-28] MEDS: Vancomycin HCl 2,000 MG in 0.9% Normal Saline (500mL Bag) 500 ML 250 MG IV (19:24)
--- NOTE | 2025-04-28 20:09 | PCM.HP.STD ---
HPI - General General Date of Admission: 04/28/25 Date of Service: 04/28/25 Chief Complaint: back pain HPI Narrative SARAH SHEETS, is a 40 Mn with a PMH as outlined who was admitted via the ED on 04/28/2025 with a complaitn of severe, intractable back pain and left elbow pain. He has a history of type 1 diabetes mellitus and amputation of right foot o/a of diabetes/ HE has been having the back pain since February 2025, and says he had an outpatient MRI done on which showed evidence of osteomyelitis/discitis. He also complaiend of right elbow pain. [facility] and denied any nausea, vomiting or any other symptoms. He has not had any back surgery in the past. He also denied any trauma to his right elbow. He was therefore called and told to come to the ED. Vitals in the ED were BP of 121/61, ID of 119, RR of 20 and temp of 100.2F. She was saturating at 99% on room air. CBC showed wbc of 14, Hb of 11.9 and platelets of 425. INR is 1.2. CHemistry showed sodium of 130, potassium of 5.6 and bicarb of 18.7. Cr is 1.69 and anion gap is 17. Lactic acid was 2.8. ALP was mildly elevated at 156 but AST and ALT as well as total bilirubin was normal. CXR showed no acute cardiopulmonary pathology. Left elbow x-ray showed no left elbow joint effusion or any acute pathology. He has been admitted to the manage for sepsis due to discitis versus osteomyelitis of the lumbar spine. [facility] Medical History Hypertriglyceridemia Wears glasses Insulin dependent diabetes mellitus Back pain Migraine headache Syncope Dietary restriction Vapes nicotine containing substance History of pain when walking History of edema Diabetic retinopathy associated with type 1 diabetes mellitus Diabetic neuropathy Osteomyelitis of foot, right, acute DKA (diabetic ketoacidoses) Cellulitis of leg Sepsis Type 1 diabetes mellitus Home Medications ?Medication ?Instructions ?Recorded ?Last Taken ?Type blood sugar diagnostic (FreeStyle #150 ea 10/05/21 Unknown Rx Lite Strips) lancets 28 gauge (FreeStyle #150 ea 09/06/22 Unknown Rx Lancets) blood sugar diagnostic (True #100 ea 09/13/24 Unknown Rx Metrix Glucose Test Strip) pen needle, diabetic 32 gauge x #200 ea 10/12/24 Unknown Rx 5/32 (BD Ultra-Fine Amy Pen Needle) blood-glucose sensor (FreeStyle #6 ea 03/11/25 Unknown Rx Monse 3 Plus Sensor device) insulin glargine 100 unit/mL (3 40 unit (0.4 mL) subcut QHS #15 mL 03/11/25 04/27/25 Rx mL) subcutaneous pen (Lantus Solostar U-100 Insulin) meloxicam 15 mg tablet 15 mg PO QDAY #30 tabs 04/19/25 04/28/25 Rx tizanidine 6 mg capsule 6 mg PO TID PRN muscle spasticity 04/19/25 04/28/25 Rx #30 caps acetaminophen 500 mg tablet 1,000 mg PO Q6H PRN back pain 04/28/25 04/28/25 History (Acetaminophen Extra Strength) fenofibrate nanocrystallized 145 145 mg PO DAILY 04/28/25 Unknown History mg tablet insulin aspart U-100 100 unit/mL See Protocol subcut TID 04/28/25 Unknown History (3 mL) subcutaneous pen (Novolog FlexPen U-100 Insulin aspart) Allergy/AdvReac Type Severity Reaction Status Date / Time cefprozil (From Cefzil) Allergy Unknown Unknown Verified 04/28/25 17:08 Environmental Allergies: Allergy Hives Verified 04/28/25 17:08 Uncoded Family History Father Heart disease Hypertension Mother Diabetes Thyroid disorder Surgical History History of amputation of lesser toe of right foot Social History household members: spouse current occupational status: unemployed Smoking Status: Former smoker Electronic Cigarette Use: with nicotine quit status: considering quitting alcohol intake: never substance use type: does not use what type of physical activity do you participate in: other details: Sometimes do you feel safe at home: Yes ROS Review of Systems ROS Unobtainable: Denies due to encephalopathy Constitutional Constitutional: Reports chills, fatigue, fever(s), malaise and weakness; Denies anorexia Eyes Eyes: Denies change in vision ENT HEENT: Denies dysphagia, headache(s) or sore throat Cardiovascular Cardiovascular: Denies chest pain, dyspnea on exertion, edema, lightheadedness, orthopnea, palpitations, rapid heart rate or syncope Respiratory/Chest Respiratory/Chest: Denies cough, dyspnea, shortness of breath at rest or shortness of breath with exertion Gastrointestinal Gastrointestinal: Denies abdominal pain, constipation, diarrhea, nausea or vomiting Genitourinary Genitourinary: Denies burning urination, dysuria or nocturia Musculoskeletal Musculoskeletal: Denies joint pain Neurologic Neurologic: Denies confusion, dizziness, focal weakness, headache(s), numbness, paresthesias, seizure-like activity, seizures or syncope Psychiatric Psychiatric: Denies anxiety or depression Vital Signs Vital Signs Vital Signs: 04/28/25 17:06 04/28/25 17:06 04/28/25 17:14 Temperature 98.2 F Temperature Source Oral Pulse Rate 143 H Respiratory Rate 20 H Respiratory Effort Normal Short of Breath Respiratory Depth Normal Respiratory Pattern Normal Blood Pressure 97/67 Blood Pressure Mean 77 Pulse Ox 100 Oxygen Delivery Method Room Air Room Air Room Air 04/28/25 18:06 04/28/25 18:08 04/28/25 19:00 Temperature 98.5 F 100.4 F H Temperature Source Oral Oral Pulse Rate 127 H 125 H 121 H Respiratory Rate 14 17 20 H Respiratory Effort Respiratory Depth Respiratory Pattern Blood Pressure 146/80 H 142/69 H 142/70 H Blood Pressure Mean 102 93 94 Pulse Ox 99 100 100 Oxygen Delivery Method Room Air Room Air 04/28/25 19:27 Temperature 100.4 F H Temperature Source Pulse Rate 116 H Respiratory Rate 20 H Respiratory Effort Respiratory Depth Respiratory Pattern Blood Pressure 139/71 H Blood Pressure Mean 93 Pulse Ox 98 Oxygen Delivery Method Weight Weight: 257 lb 9 oz Body Mass Index (BMI) 34.9 Physical Exam Const alert and oriented x3 General Appearance: cooperative HEENT normocephalic and head/scalp atraumatic HEENT Narrative: dry oral mucosa Mouth: oral and palatal mucosa normal Eyes conjunctivae normal Neck supple and no JVD Resp normal respiratory effort, no use of accessory muscles and clear to auscultation bilaterally Resp Narrative: tachypneic Cardio regular rhythm, S1 normal heart sound, S2 normal heart sound and no murmurs Cardio Narrative: tachycardic GI normal to inspection, nondistended, normoactive bowel sounds, soft to palpation, non-tender and non-distended Extremity normal to inspection and full ROM Skin Skin Narrative: erythema over left elbow, minimal differential warmth, able to flex and extend left arm at elbow Neuro moves all extremities and no focal motor deficits Sensorium / Orientation: awake and alert Motor Exam: strength 5/5 throughout Psych affect normal Results Lab / Micro Data 04/28/25 17:41 04/28/25 17:41 Labs: Laboratory Results - last 24 hr 04/28/25 17:41: WBC 14.0 H, RBC 4.13 L, Hgb 11.9 L, Hct 35.7 L, MCV 86.4, MCH 28.8, MCHC 33.3, RDW Std Deviation 38.7, RDW Coeff of [place] 12.2, Plt Count 425, MPV 9.5, Immature Gran % (Auto) 0.600, Neut % (Auto) 82.4 H, Lymph % (Auto) 10.7 L, [place] % (Auto) 5.4, Eos % (Auto) 0.5, Baso % (Auto) 0.4, Absolute Neuts (auto) 11.5 H, Absolute Lymphs (auto) 1.50, Nucleated RBC % 0, ESR 28 H, PT 15.0 H, INR 1.2, APTT 32.6, Sodium 130 L, Potassium 5.6 H, Chloride 94 L, Carbon Dioxide 18.7 L, Anion Gap 17 H, BUN 27 H, Creatinine 1.69 H, Estim Creat Clear Calc 76.67, Est GFR (MDRD) Non-Af 52 L, BUN/Creatinine Ratio 15.8, Glucose 295 H, Lactic Acid 2.8 H*, Calcium 9.7, Total Bilirubin 0.97, AST 21, ALT 25, Alkaline Phosphatase 156 H, C-React Prot Ext Range 102.00 H, Total Protein 8.9 H, Albumin 3.6, Globulin 5.3 H, Albumin/Globulin Ratio 0.7 L Rhythm Strip Rhythm Strip: Sinus Tach Rate: 138 Ectopy: None Imaging Radiology Impression Chest X-Ray 04/28/25 17:55 IMPRESSION: Lungs appear clear throughout. No pleural effusion or pneumothorax is noted. The cardiomediastinal silhouette is within the normal range. Bilateral acromioclavicular joint degenerative changes are noted. No acute osseous change is seen. Reading Location: [address] Elbow X-Ray 04/28/25 17:55 IMPRESSION: No left elbow joint effusion is seen. No significant arthritic process or joint narrowing is noted. No fracture, dislocation, or other significant osseous or joint space abnormality is seen. Reading Location: [address] Assessment & Plan Assessment/Plan (1) Sepsis: (2) Discitis: PLAN: Plan #Sepsis due to as acute discitis versus osteomyelitis of the lumbar spine Patient has a history of type 2 diabetes mellitus. He has had chronic intractable back pain since WHICH has gradually worsened. He had outpatient MRI of the lumbar spine done yesterday which showed abnormal signal within the L4-5 intervertebral disc which may indicate discitis and abnormal signal within the L4-L5 vertebral bodies consistent with acute edema and extension into the left paravertebral soft tissues and psoas muscle at L4-L5 level as well as displacement of the L4 nerve root. Was therefore told to come to the ED. Patient is tachypneic and tachycardic and WBC is also elevated at 14. He did have a temperature of 100.2 Fahrenheit and lactic acid is also elevated at 2.8. Admit to ICU as a precaution due to his sepsis and propensity to decline. Started on IV vancomycin and Zosyn. Blood cultures ordered. Consult spine surgery. PT/OT consult fall precaution #SHWETHA with hyperkalemia: Potassium is 5.6. Creatinine is 1.69 with a baseline of around 1. Hold all nephrotoxic meds. Give sodium Kayexalate 30 g x 1. Hydrate with IV fluids. SHWETHA is likely prerenal in light of acute sepsis and decreased intake. #Anion gap metabolic acidosis likely due to SHWETHA and uremia: Anion gap is 17 and bicarb is 18.7. BUN is 27. Should improve with hydration. Lactic acid may also be contributing. #Probable cellulitis of the left elbow Patient's left elbow is erythematous and mildly warm to touch. There is no significant swelling. He is able to flex and extend at the elbow. On IV vancomycin and Zosyn which should cover for any possible infection. The right elbow x-ray showed no left elbow joint effusion or significant arthritis, no fracture, dislocation or any other significant finding. #Hyperlipidemia: On fenofibrate #Type 2 diabetes mellitus: On Lantus 40 units nightly. Insulin sliding scale. Accu-Cheks ACHS. DVT prophylaxis: Lovenox renally dosed CODE STATUS:full code Patient counseled extensively about different types of CODE STATUS including full code, DNR CCA and DNR CCA. Patient elects to be full code. Total [id number] time 16 minutes. Charges/Coding Visit Charges Inpatient E&M: 68727 Init Hosp L3 Procedures Hospitalists Procedures: 36699 Advncd Care Plan 30 Min
[2025-04-28] MEDS: 0.9% Normal Saline (1000mL) 1,000 ML 500 ML IV ×2 (20:12→22:14)
[2025-04-28 21:48] LABS: Reflex Lactate? Y
[2025-04-28] MEDS: 0.9% Normal Saline (1000mL) 1,000 ML 125 ML IV (22:36)
[2025-04-28] MEDS: Insulin Glargine-YFGN 100 UNIT/ML Pen 40 UNIT SC (22:36)
--- NOTE | 2025-04-28 22:43 | PCM.RX.CS ---
Consult Antibiotic Management Pharmacy has been consulted to manage selected antibiotic: Vancomycin Type of Intervention Type of Consult: New start Labs Labs: Sodium 130 mmol/L (133-145) L 04/28/25 17:41 Potassium 5.6 mmol/L (3.3-5.1) H 04/28/25 17:41 Chloride 94 mmol/L (98-108) L 04/28/25 17:41 Carbon Dioxide 18.7 mmol/L (21.0-32.0) L 04/28/25 17:41 Anion Gap 17 (5-15) H 04/28/25 17:41 BUN 27 mg/dL (4-19) H 04/28/25 17:41 Creatinine 1.69 mg/dL (0.70-1.20) H 04/28/25 17:41 Est GFR (MDRD) Non-Af 52 (>60) L 04/28/25 17:41 BUN/Creatinine Ratio 15.8 RATIO (10-20) 04/28/25 17:41 Glucose 295 mg/dL (70-99) H 04/28/25 17:41 Dosing Weight Weight used for dosin.3 kg Estimated Creatinine Clearance Estimated Creatinine Clearance: 76.67 Goal Trough Goal Trough: 15-20 mcg/mL Pharmacy Plan for Drug Dosing Pharmacy Plan for Drug Dosing: Pharmacy Service will continue to monitor and adjust dosing as required. ER DOSE 2GM GIVEN 04/28 @ 1924. START 1750MG Q12H AND DRAW TROUGH PRIOR TO 4TH DOSE Follow-Up Labs Follow-Up Labs: Trough: Vancomycin Date/Time Labs Ordered Labs to be done on [date and time ordered]: 04/30 @ 0700
[2025-04-29] VITALS (13 sets, daily range): BP systolic 117–163; BP diastolic 66–94; PULSE 92–111; RESP 16–25; TEMP 36.2–37; O2SAT 95–100; BMI 33.5
[2025-04-29 01:48] LABS: Mucous, Urine 0 SEEN /hpf (<or=2+)
[2025-04-29 01:56] LABS: Color, Urine Yellow (Yellow); Glucose, Dipstick 100 mg/dl (Normal); Ketone-Dipstick 50 mg/dl (Negative); Leukocyte Esterase-Dipstick 500 /ul (Negative); Nitrite-Dipstick Negative (Negative); Occult Blood-Urine 150 /ul (Negative); Protein-Dipstick 100 mg/dl (Negative); Specific Gravity, Urine 1.020 (1.002-1.030)
[2025-04-29 01:58] LABS: Urine Bilirubin Dipstick 1 mg/dL (Negative)
[2025-04-29 02:21] LABS: Red Blood Cells-Urine 5-10 SEEN /hpf (0-5); Squamous Epithelial Cells - UA 0-5 SEEN /hpf (0-5)
[2025-04-29 04:39] LABS: Hematocrit 27.4 % (40-54); Hemoglobin 9.0 g/dL (13.0-16.5); Immature Granulocytes Count 0.030 X10^3/uL (0.0-0.0); Mean Corp Hgb Conc 32.8 g/dL (32-36); Mean Corpuscular Volume 86.7 fL (80-94); Mean Platelet Vol. 9.3 fl (6.2-12.0); NRBC Flagged by Analyzer 0 % (0-5); Platelet Count 293 K/mm3 (150-450); RBC Distribution Width CV 12.2 % (11.6-14.6); RBC Distribution Width SD 39.0 fl (35.1-43.9); Red Blood Count 3.16 M/mm3 (4.6-6.2); White Blood Count 8.7 K/mm3 (4.4-11.0)
[2025-04-29 05:02] LABS: Anion Gap 12 (5-15); BUN 30 mg/dL (4-19); BUN/Creat Ratio 19.0 RATIO (10-20); Calcium,Total 7.9 mg/dL (7.6-11.0); Carbon Dioxide 18.2 mmol/L (21.0-32.0); Chloride 101 mmol/L (98-108); Estimated Creatinine Clearance 83.74 ml/min (50-250); Glucose 311 mg/dL (70-99); Potassium 4.5 mmol/L (3.3-5.1)
[2025-04-29] MEDS: 0.9% Normal Saline (1000mL) 1,000 ML 125 ML IV (05:45)
[2025-04-29] MEDS: Piperacil/Tazobactam 3.375 GM in 0.9% Normal Saline (50mL MB+) 50 ML IV ×2 (05:45→13:42)
[2025-04-29] MEDS: Vancomycin HCl 1,750 MG in 0.9% Normal Saline (500mL Bag) 500 ML 250 MG IV ×2 (05:45→20:46)
--- NOTE | 2025-04-29 07:23 | PN.HOSP_ITS ---
Reason for Visit
--- NOTE | 2025-04-29 07:23 | PCM.PN.HOSP ---
Reason for Visit Chief Complaint: back pain Subjective Subjective Patient is a 40-year-old gentleman admitted with intractable back pain as well as left elbow pain. He apparently had an MRI performed as outpatient which showed evidence of osteomyelitis/discitis Objective Data Objective Data Vital Signs: Vital Signs Temp Pulse Resp BP Pulse Ox O2 Del Method 98 F 95 23 H 138/78 H 98 Room Air 04/29/25 04:00 04/29/25 07:00 04/29/25 07:00 04/29/25 07:00 04/29/25 07:00 04/29/25 07:00 Oxygen Delivery Method Room Air Weight: 115.3 kg Body Mass Index (BMI) 33.5 Intake & Output: Intake and Output for Last 24 Hours 04/27/25 04/28/25 04/29/25 23:59 23:59 23:59 Intake Total 2640.00 / 2640.00 1893.75 / 1893.75 Balance 2640.00 / 2640.00 1893.75 / 1893.75 Lab / Micro Data 04/29/25 04:30 04/29/25 04:30 Labs: Laboratory Results - last 24 hr 04/28/25 17:41: WBC 14.0 H, RBC 4.13 L, Hgb 11.9 L, Hct 35.7 L, MCV 86.4, MCH 28.8, MCHC 33.3, RDW Std Deviation 38.7, RDW Coeff of [place] 12.2, Plt Count 425, MPV 9.5, Immature Gran % (Auto) 0.600, Neut % (Auto) 82.4 H, Lymph % (Auto) 10.7 L, [place] % (Auto) 5.4, Eos % (Auto) 0.5, Baso % (Auto) 0.4, Absolute Neuts (auto) 11.5 H, Absolute Lymphs (auto) 1.50, Nucleated RBC % 0, ESR 28 H, PT 15.0 H, INR 1.2, APTT 32.6, Sodium 130 L, Potassium 5.6 H, Chloride 94 L, Carbon Dioxide 18.7 L, Anion Gap 17 H, BUN 27 H, Creatinine 1.69 H, Estim Creat Clear Calc 76.67, Est GFR (MDRD) Non-Af 52 L, BUN/Creatinine Ratio 15.8, Glucose 295 H, Lactic Acid 2.8 H*, Calcium 9.7, Total Bilirubin 0.97, AST 21, ALT 25, Alkaline Phosphatase 156 H, C-React Prot Ext Range 102.00 H, Total Protein 8.9 H, Albumin 3.6, Globulin 5.3 H, Albumin/Globulin Ratio 0.7 L 04/28/25 22:22: Lactic Acid < 1.0 04/28/25 22:23: POC Glucose 240 H 04/29/25 00:49: POC Glucose 261 H 04/29/25 01:30: Urine Color Yellow, Urine Clarity Turbid, Urine pH 5.0, Ur Specific [place] 1.020, Urine Protein 100 H, Urine Glucose (UA) 100 H, Urine Ketones 50 H, Urine Occult Blood 150 H, Urine Nitrite Negative, Urine Bilirubin 1 H, Urine Urobilinogen 4 H, Ur Leukocyte Esterase 500 H, Urine RBC 5-10 SEEN, Urine WBC >100 SEEN, Ur Squamous Epith Cells 0-5 SEEN, Amorphous Sediment 2+, Urine Bacteria 2+, Urine Mucus 0 SEEN 04/29/25 04:30: WBC 8.7, RBC 3.16 L, Hgb 9.0 L, Hct 27.4 L, MCV 86.7, MCH 28.5, MCHC 32.8, RDW Std Deviation 39.0, RDW Coeff of [place] 12.2, Plt Count 293, MPV 9.3, Immature Gran % (Auto) 0.300, Neut % (Auto) 71.7 H, Lymph % (Auto) 16.6 L, [place] % (Auto) 9.2, Eos % (Auto) 1.7, Baso % (Auto) 0.5, Absolute Neuts (auto) 6.2, Absolute Lymphs (auto) 1.44, Nucleated RBC % 0, Sodium 132 L, Potassium 4.5, Chloride 101, Carbon Dioxide 18.2 L, Anion Gap 12, BUN 30 H, Creatinine 1.56 H, Estim Creat Clear Calc 83.74, Est GFR (MDRD) Non-Af 57 L, BUN/Creatinine Ratio 19.0, Glucose 311 H, Hemoglobin A1c 6.9 H, Calcium 7.9 Radiography Diagnostic Testing: Radiology Impression Chest X-Ray 04/28/25 17:55 IMPRESSION: Lungs appear clear throughout. No pleural effusion or pneumothorax is noted. The cardiomediastinal silhouette is within the normal range. Bilateral acromioclavicular joint degenerative changes are noted. No acute osseous change is seen. Reading Location: [address] Elbow X-Ray 04/28/25 17:55 IMPRESSION: No left elbow joint effusion is seen. No significant arthritic process or joint narrowing is noted. No fracture, dislocation, or other significant osseous or joint space abnormality is seen. Reading Location: [address] Rhythm Strip Rhythm Strip: Sinus Tach Rate: 138 Ectopy: None Physical Exam Narrative GENERAL: cooperative HEENT: Atraumatic; normocephalic EYES; Anicteric, Normal Conjunctiva NECK; supple, normal thyroid, RESPIRATORY: Diminished to auscultation CARDIOVASCULAR: Regular S1 S2, GI: soft, normoactive bowel sounds, : No Renal angle tenderness; EXTREMITIES: Excoriation anterior surface of the right lower extremity with right second to wound, swelling and erythema involving the left elbow, MUSCULOSKELETAL: no muscle wasting NEURO: Awake; no lateralizing signs. SKIN: No Rash PSYCH; Flat affect Assessment & Plan Assessment/Plan (1) Sepsis: (2) Discitis: PLAN: Plan Patient is a 40-year-old gentleman admitted with intractable back pain as well as left elbow pain. He apparently had an MRI performed as outpatient which showed evidence of osteomyelitis/discitis 1. Sepsis ? Secondary to discitis/osteomyelitis involving the lumbar spine, septic arthritis involving the left elbow, second right toe infection as well as cellulitis involving the right lower extremity. Patient admitted to the intensive care unit treatment initiated per protocol with broad-spectrum antibiotic therapy after cultures have been sent. Consultation placed to ID as well as spine surgery 2. Discitis/osteomyelitis involving the lumbar spine ? MRI obtained as outpatient on 04/26/2025 did show abnormal signal within the L4-5 intervertebral disc, may indicate discitis. There is abnormal signal within the L4 and L5 vertebral bodies consistent with acute edema. There is extension into the left paravertebral soft tissues and psoas muscle, at the L4-5 level. There is also displacement of the L4 nerve root. 2. There is a left central disc extrusion at L5-S1 with posterior displacement of the left S1 nerve root sleeve. Management initiated as discussed above 3. Suspected septic elbow/cellulitis of the left elbow ? Patient started on broad-spectrum antibiotic therapy cultures sent. Spine/orthopedic surgery already on the case 4. Diabetic foot infection involving the second right toe/cellulitis of right lower extremity ? Patient remains on antibiotic therapy with consult placed to Dr. Ann with podiatry 5. Acute kidney injury ? Patient started on IV fluid with avoidance of potential nephrotoxic medications. Daily monitoring with BMPs ordered 6. Hyperkalemia ? Patient did receive Kayexalate repeat potassium ordered 7. Anion gap metabolic acidosis ? Secondary to SHWETHA do expect improvement in treatment of the underlying etiology 8. Dyslipidemia ? Patient is on fenofibrate 9. Diabetes mellitus type II -Placed on long acting insulin, Accu-Cheks a.c. and at bedtime and covered with sliding scale insulin 10. Class I obesity with BMI of 33.5 ? Complicating care weight loss advised 11. Anemia ? Secondary to chronic disorder monitoring H&H and transfuse if patient becomes symptomatic or hemoglobin falls below 7 12. Acute cystitis ? Patient had pyuria. Patient remains on broad-spectrum antibiotic therapy will follow-up on culture result 13. DVT prophylaxis ? On enoxaparin, dose adjusted for kidney function Time spent in the patient's overall evaluation,decision-making process, review of diagnostic data, adjustment of management, discussion with other providers, nursing nursing and ancillary staff involved in patient's care documentation, 50 Minutes Charges/Coding Visit Charges Inpatient E&M: [id number] [place] [id number]
[2025-04-29 07:55] LABS: Immature Reticulocyte Fraction 9.90 % (3.00-15.90); Platelet Count 290 K/mm3 (150-450); Reticulocyte Count 1.70 % (0.5-1.5)
[2025-04-29 08:23] LABS: Ferritin 688 ng/mL (37-417); Iron 26 ug/dL (65-175); Iron Binding Capacity,Unsat 119 ug/dL (228-428); Vitamin B12 856 pg/mL (180-914)
[2025-04-29 08:38] LABS: Iron Binding Capacity,Total 145 ug/dL (250-450)
--- NOTE | 2025-04-29 10:51 | WOUNDNOTE ---
wound photo: right rose
--- NOTE | 2025-04-29 10:51 | WOUNDNOTE ---
wound photo: right 2nd toe
--- NOTE | 2025-04-29 10:52 | WOUNDNOTE ---
wound photo: right 2nd toe
--- NOTE | 2025-04-29 13:18 | CT_ITS ---
PROCEDURE: CT/Extremity Upper without Contra
--- NOTE | 2025-04-29 13:20 | NURSING ---
pt to ct scan
[2025-04-29] MEDS: 0.9% Normal Saline (250mL Bag) 250 ML 15 ML IV (13:32)
--- NOTE | 2025-04-29 13:42 | PCM.CONS.GEN ---
Assessment & Plan Assessment/Plan (1) Discitis: (2) Acute kidney injury: (3) Sepsis: PLAN: Concern for lumbar discitis, R toe infection, L elbow infection. Podiatry and ortho consulted. CT pending, bcx pending. May need IR aspiration of disc and fluid sent for culture. Will narrow to vanc/unasyn. will follow, thank you (4) Type 1 diabetes mellitus with diabetic polyneuropathy: HPI Consult Data Date of Consult: 04/29/25 HPI Narrative Reason for Consultation: discitis HPI Narrative: SARAH SHEETS, is a 40 M with h/o DM, presented with 1-2 months progressive lower back pain, associated with chills, sweats, fatigue. No known inciting event. R toe with some redness and swelling but no pain or drainage. Now also with several days L elbow pain, redness, swelling. Has been seeing chiropractor, MRI done, showed discitis, admitted to [facility]. Started on vanc/zosyn, feeling a little better. Full ROS performed and neg except as noted above. [facility] Medical History Hypertriglyceridemia Wears glasses Insulin dependent diabetes mellitus Back pain Migraine headache Syncope Dietary restriction Vapes nicotine containing substance History of pain when walking History of edema Diabetic retinopathy associated with type 1 diabetes mellitus Diabetic neuropathy Osteomyelitis of foot, right, acute DKA (diabetic ketoacidoses) Cellulitis of leg Sepsis Type 1 diabetes mellitus Home Medications ?Medication ?Instructions ?Recorded ?Last Taken ?Type blood sugar diagnostic (FreeStyle #150 ea 10/05/21 Unknown Rx Lite Strips) lancets 28 gauge (FreeStyle #150 ea 09/06/22 Unknown Rx Lancets) blood sugar diagnostic (True #100 ea 09/13/24 Unknown Rx Metrix Glucose Test Strip) pen needle, diabetic 32 gauge x #200 ea 10/12/24 Unknown Rx (BD Ultra-Fine Amy Pen Needle) blood-glucose sensor (FreeStyle #6 ea 03/11/25 Unknown Rx Monse 3 Plus Sensor device) insulin glargine 100 unit/mL (3 40 unit (0.4 mL) subcut QHS #15 mL 03/11/25 04/27/25 Rx mL) subcutaneous pen (Lantus Solostar U-100 Insulin) meloxicam 15 mg tablet 15 mg PO QDAY #30 tabs 04/19/25 04/28/25 Rx tizanidine 6 mg capsule 6 mg PO TID PRN muscle spasticity 04/19/25 04/28/25 Rx #30 caps acetaminophen 500 mg tablet 1,000 mg PO Q6H PRN back pain 04/28/25 04/28/25 History (Acetaminophen Extra Strength) fenofibrate nanocrystallized 145 145 mg PO DAILY 04/28/25 Unknown History mg tablet insulin aspart U-100 100 unit/mL See Protocol subcut TID 04/28/25 Unknown History (3 mL) subcutaneous pen (Novolog FlexPen U-100 Insulin aspart) Allergy/AdvReac Type Severity Reaction Status Date / Time cefprozil (From Cefzil) Allergy Unknown Unknown Verified 04/28/25 17:08 Environmental Allergies: Allergy Hives Verified 04/28/25 17:08 Uncoded Family History Father Heart disease Hypertension Mother Diabetes Thyroid disorder Surgical History History of amputation of lesser toe of right foot Social History household members: spouse current occupational status: unemployed Smoking Status: Former smoker Electronic Cigarette Use: with nicotine quit status: considering quitting alcohol intake: never substance use type: does not use what type of physical activity do you participate in: other details: Sometimes do you feel safe at home: Yes Physical Exam Const alert, oriented x3 and no apparent distress General Appearance: cooperative HEENT normocephalic and head/scalp atraumatic Eyes PERRL and EOMs intact bilaterally Neck supple and No nodes Resp normal air movement and clear to auscultation bilaterally Cardio regular rate and regular rhythm GI soft to palpation, non-tender and non-distended Extremity Extremity Narrative: L elbow redness/swelling/tenderness. Tender over L spine Skin Skin Narrative: R 2nd toe with swelling, redness, dry ulceration Neuro CN's II-XII intact bilaterally Lab / Micro Data Attestation: I reviewed the patient's lab results. 04/29/25 04:30 04/29/25 04:30 Labs: Laboratory Results - last 24 hr 04/28/25 17:41: WBC 14.0 H, RBC 4.13 L, Hgb 11.9 L, Hct 35.7 L, MCV 86.4, MCH 28.8, MCHC 33.3, RDW Std Deviation 38.7, RDW Coeff of Sharon 12.2, Plt Count 425, MPV 9.5, Immature Gran % (Auto) 0.600, Neut % (Auto) 82.4 H, Lymph % (Auto) 10.7 L, Stephenson % (Auto) 5.4, Eos % (Auto) 0.5, Baso % (Auto) 0.4, Absolute Neuts (auto) 11.5 H, Absolute Lymphs (auto) 1.50, Nucleated RBC % 0, ESR 28 H, PT 15.0 H, INR 1.2, APTT 32.6, Sodium 130 L, Potassium 5.6 H, Chloride 94 L, Carbon Dioxide 18.7 L, Anion Gap 17 H, BUN 27 H, Creatinine 1.69 H, Estim Creat Clear Calc 76.67, Est GFR (MDRD) Non-Af 52 L, BUN/Creatinine Ratio 15.8, Glucose 295 H, Lactic Acid 2.8 H*, Calcium 9.7, Total Bilirubin 0.97, AST 21, ALT 25, Alkaline Phosphatase 156 H, C-React Prot Ext Range 102.00 H, Total Protein 8.9 H, Albumin 3.6, Globulin 5.3 H, Albumin/Globulin Ratio 0.7 L 04/28/25 22:22: Lactic Acid < 1.0 04/28/25 22:23: POC Glucose 240 H 04/29/25 00:49: POC Glucose 261 H 04/29/25 01:30: Urine Color Yellow, Urine Clarity Turbid, Urine pH 5.0, Ur Specific [place] 1.020, Urine Protein 100 H, Urine Glucose (UA) 100 H, Urine Ketones 50 H, Urine Occult Blood 150 H, Urine Nitrite Negative, Urine Bilirubin 1 H, Urine Urobilinogen 4 H, Ur Leukocyte Esterase 500 H, Urine RBC 5-10 SEEN, Urine WBC >100 SEEN, Ur Squamous Epith Cells 0-5 SEEN, Amorphous Sediment 2+, Urine Bacteria 2+, Urine Mucus 0 SEEN 04/29/25 04:30: WBC 8.7, RBC 3.16 L, Hgb 9.0 L, Hct 27.4 L, MCV 86.7, MCH 28.5, MCHC 32.8, RDW Std Deviation 39.0, RDW Coeff of Sharon 12.2, Plt Count 293, MPV 9.3, Immature Gran % (Auto) 0.300, Neut % (Auto) 71.7 H, Lymph % (Auto) 16.6 L, Stephenson % (Auto) 9.2, Eos % (Auto) 1.7, Baso % (Auto) 0.5, Absolute Neuts (auto) 6.2, Absolute Lymphs (auto) 1.44, Nucleated RBC % 0, Retic Count 1.70 H, Immature Retic Fraction 9.90, Retic Hgb Equivalent 28.5 L, Sodium 132 L, Potassium 4.5, Chloride 101, Carbon Dioxide 18.2 L, Anion Gap 12, BUN 30 H, Creatinine 1.56 H, Estim Creat Clear Calc 83.74, Est GFR (MDRD) Non-Af 57 L, BUN/Creatinine Ratio 19.0, Glucose 311 H, Hemoglobin A1c 6.9 H, Calcium 7.9, Iron 26 L, TIBC 145 L, Iron Saturation 17.9, Unsaturated IBC 119 L, Ferritin 688 H, Vitamin B12 856 04/29/25 10:42: POC Glucose 225 H Micro: Microbiology 04/28/25 18:10 Blood Culture (Wb) - Right Hand Blood Culture - Preliminary 04/28/25 17:41 Blood Culture (Wb) - Anticubital Left Blood Culture - Preliminary Rhythm Strip Rhythm Strip: Sinus Tach Rate: 138 Ectopy: None Imaging Radiology Impression Chest X-Ray 04/28/25 17:55 IMPRESSION: Lungs appear clear throughout. No pleural effusion or pneumothorax is noted. The cardiomediastinal silhouette is within the normal range. Bilateral acromioclavicular joint degenerative changes are noted. No acute osseous change is seen. Reading Location: [address] Elbow X-Ray 04/28/25 17:55 IMPRESSION: No left elbow joint effusion is seen. No significant arthritic process or joint narrowing is noted. No fracture, dislocation, or other significant osseous or joint space abnormality is seen. Reading Location: [id number]
--- NOTE | 2025-04-29 14:30 | CASEMGMT ---
RN?CM?ASSESSMENT ? RN?CM?to room to meet with patient for initial transition planning/care coordination?assessment.?RN?CM?introduced self and role at [facility].? Pt voices understanding and consents to?assessment?at this time.? Pt resting in bed in no distress at this time.? Visitors @ bedside, pt agreeable to them being present during assessment. Pt is A/O at this time and answers all questions appropriately.?? Care providers, pharmacy, and demographics verified/updated at this time. ? Strata: 2 PCP: Dr Meier Specialists: Dr Clement-endocrinology, DL Parson, antonino Preferred Pharmacy: [facility] Insurance: [employer] Prescription Benefit:?yes LNOK: , Jessika Living Arrangements: Lives w/ and 5 daughters in a 1-story home w/3 steps to enter. One of his daughters is an adult/19 yrs-old. works 12-hr days. Pt is indep @ baseline w/ADL's. does home mgnt tasks. Transportation: self, . DME: States has the following DME:?crutches, transport chair, walker, knee crutch, and knee scooter all available. Pt also has a shower chair and functioning CGM. Pt states he will be able to refill sensors @ the beginning of the week & does not need assistance w/that. ? Discussed discharge planning, including IV atb's and possible wound care. Discussed options of SNF, HHC, and OP infusion. Pt wishes to return home, stating We'll do what it takes to make it happen. CM?to follow for further discharge planning/needs.? Pt voices no further concerns/needs at this time.? ? PLAN:??TBD. Pt prefers to discharge home w/HHC for IV atb's. PT/OT evals pending. Ortho and podiatry consults pending. Follow for wound care and any DME needs. ? Vicky BSN?RN?CM ?
--- NOTE | 2025-04-29 15:34 | CONS.ORTHO ---
HPI Consult Data Date of Consult: 04/29/25 HPI Narrative HPI Narrative: SARAH SHETES, is a 40 M who presents with severe back pain and MRI finding of discitis. He was admitted yesterday from the ER. I was consulted for the finding of discitis. I saw the patient in 322 this afternoon. Patient mentions that his back pain symptoms progressively worsened rapidly since February. He was seen in orthopedic clinic but the MRI was not completed at that time. Since that he underwent an MRI and has had progressively worsening back pain and difficulty with lifting up his left leg and seems to be relaxed only when the left hip is flexed. He denies any significant pain down the leg below the knee. He denies any trauma. He has also noticed over the last few days and weeks that his left elbow is painful and now its swollen significantly. He is a known diabetic. His A1c is 6.9. He has a chronic wound over the anterior rose in the lower third tibia on the right. He has had an amputation of the right fifth toe. He has a wound over the right second toe. PMH: Hypertriglyceridemia Wears glasses Insulin dependent diabetes mellitus Back pain Migraine headache Syncope Dietary restriction Vapes nicotine containing substance History of pain when walking History of edema Diabetic retinopathy associated with type 1 diabetes mellitus Diabetic neuropathy Osteomyelitis of foot, right, acute DKA (diabetic ketoacidoses) Cellulitis of leg Sepsis Type 1 diabetes mellitus [facility] Medical History Hypertriglyceridemia Wears glasses Insulin dependent diabetes mellitus Back pain Migraine headache Syncope Dietary restriction Vapes nicotine containing substance History of pain when walking History of edema Diabetic retinopathy associated with type 1 diabetes mellitus Diabetic neuropathy Osteomyelitis of foot, right, acute DKA (diabetic ketoacidoses) Cellulitis of leg Sepsis Type 1 diabetes mellitus Home Medications ?Medication ?Instructions ?Recorded ?Last Taken ?Type blood sugar diagnostic (FreeStyle #150 ea 10/05/21 Unknown Rx Lite Strips) lancets 28 gauge (FreeStyle #150 ea 09/06/22 Unknown Rx Lancets) blood sugar diagnostic (True #100 ea 09/13/24 Unknown Rx Metrix Glucose Test Strip) pen needle, diabetic 32 gauge x #200 ea 10/12/24 Unknown Rx 5/32 (BD Ultra-Fine Amy Pen Needle) blood-glucose sensor (FreeStyle #6 ea 03/11/25 Unknown Rx Monse 3 Plus Sensor device) insulin glargine 100 unit/mL (3 40 unit (0.4 mL) subcut QHS #15 mL 03/11/25 04/27/25 Rx mL) subcutaneous pen (Lantus Solostar U-100 Insulin) meloxicam 15 mg tablet 15 mg PO QDAY #30 tabs 04/19/25 04/28/25 Rx tizanidine 6 mg capsule 6 mg PO TID PRN muscle spasticity 04/19/25 04/28/25 Rx #30 caps acetaminophen 500 mg tablet 1,000 mg PO Q6H PRN back pain 04/28/25 04/28/25 History (Acetaminophen Extra Strength) fenofibrate nanocrystallized 145 145 mg PO DAILY 04/28/25 Unknown History mg tablet insulin aspart U-100 100 unit/mL See Protocol subcut TID 04/28/25 Unknown History (3 mL) subcutaneous pen (Novolog FlexPen U-100 Insulin aspart) Allergy/AdvReac Type Severity Reaction Status Date / Time cefprozil (From Cefzil) Allergy Unknown Unknown Verified 04/28/25 17:08 Environmental Allergies: Allergy Hives Verified 04/28/25 17:08 Uncoded Family History Father Heart disease Hypertension Mother Diabetes Thyroid disorder Surgical History History of amputation of lesser toe of right foot Social History household members: spouse current occupational status: unemployed Smoking Status: Former smoker Electronic Cigarette Use: with nicotine quit status: considering quitting alcohol intake: never substance use type: does not use what type of physical activity do you participate in: other details: Sometimes do you feel safe at home: Yes Vital Signs Vital Signs Vital Signs: 04/28/25 17:06 04/28/25 17:06 04/28/25 17:14 Temperature 98.2 F Temperature Source Oral Pulse Rate 143 H Pulse Strength Respiratory Rate 20 H Respiratory Effort Normal Short of Breath Respiratory Depth Normal Respiratory Pattern Normal Blood Pressure 97/67 Blood Pressure Mean 77 Blood Pressure Source Blood Pressure Position Blood Pressure Location Pulse Ox 100 Oxygen Delivery Method Room Air Room Air Room Air 04/28/25 18:06 04/28/25 18:08 04/28/25 19:00 Temperature 98.5 F 100.4 F H Temperature Source Oral Oral Pulse Rate 127 H 125 H 121 H Pulse Strength Respiratory Rate 14 17 20 H Respiratory Effort Respiratory Depth Respiratory Pattern Blood Pressure 146/80 H 142/69 H 142/70 H Blood Pressure Mean 102 93 94 Blood Pressure Source Blood Pressure Position Blood Pressure Location Pulse Ox 99 100 100 Oxygen Delivery Method Room Air Room Air 04/28/25 19:27 04/28/25 20:00 04/28/25 21:00 Temperature 100.4 F H 100.2 F H 98.4 F Temperature Source Oral Oral Pulse Rate 116 H 119 H 109 H Pulse Strength Respiratory Rate 20 H 20 H 18 Respiratory Effort Respiratory Depth Respiratory Pattern Blood Pressure 139/71 H 121/61 H 126/67 H Blood Pressure Mean 93 81 86 Blood Pressure Source Blood Pressure Position Blood Pressure Location Pulse Ox 98 99 97 Oxygen Delivery Method Room Air Room Air 04/28/25 22:03 04/28/25 22:15 04/28/25 22:30 Temperature 98.3 F Temperature Source Temporal Pulse Rate 112 H 101 H 99 Pulse Strength Respiratory Rate 20 H 20 H 25 H Respiratory Effort Respiratory Depth Respiratory Pattern Blood Pressure 138/78 H 141/82 H 127/80 H Blood Pressure Mean 98 101 95 Blood Pressure Source Monitor Monitor Monitor Blood Pressure Position Semi-Fowlers Semi-Fowlers Semi-Fowlers Blood Pressure Location Left Arm Left Arm Left Arm Pulse Ox 99 99 99 Oxygen Delivery Method Room Air Room Air Room Air 04/28/25 23:00 04/29/25 00:00 04/29/25 01:00 Temperature 98.2 F Temperature Source Temporal Pulse Rate 117 H 97 99 Pulse Strength Respiratory Rate 19 H 18 22 H Respiratory Effort Respiratory Depth Respiratory Pattern Blood Pressure 134/99 H 133/81 H 131/73 H Blood Pressure Mean 110 98 92 Blood Pressure Source Monitor Monitor Monitor Blood Pressure Position Semi-Fowlers Semi-Fowlers Semi-Fowlers Blood Pressure Location Left Arm Right Arm Right Arm Pulse Ox 97 97 98 Oxygen Delivery Method Room Air Room Air Room Air 04/29/25 02:00 04/29/25 03:00 04/29/25 04:00 Temperature 98 F Temperature Source Temporal Pulse Rate 96 98 105 H Pulse Strength Respiratory Rate 20 H 25 H 20 H Respiratory Effort Respiratory Depth Respiratory Pattern Blood Pressure 130/80 H 133/73 H 137/77 H Blood Pressure Mean 96 93 97 Blood Pressure Source Monitor Monitor Monitor Blood Pressure Position Semi-Fowlers Semi-Fowlers Semi-Fowlers Blood Pressure Location Right Arm Right Arm Right Arm Pulse Ox 98 98 100 Oxygen Delivery Method Room Air Room Air Room Air 04/29/25 05:00 04/29/25 06:00 04/29/25 07:00 Temperature Temperature Source Pulse Rate 95 97 95 Pulse Strength Respiratory Rate 24 H 20 H 23 H Respiratory Effort Respiratory Depth Respiratory Pattern Blood Pressure 142/66 H 117/94 H 138/78 H Blood Pressure Mean 91 101 98 Blood Pressure Source Monitor Monitor Monitor Blood Pressure Position Semi-Fowlers Semi-Fowlers Semi-Fowlers Blood Pressure Location Right Arm Right Arm Right Arm Pulse Ox 99 100 98 Oxygen Delivery Method Room Air Room Air Room Air 04/29/25 08:00 04/29/25 11:10 04/29/25 11:10 Temperature Temperature Source Pulse Rate 95 Pulse Strength Normal (2+) Respiratory Rate 20 H Respiratory Effort Normal Respiratory Depth Normal Respiratory Pattern Normal Blood Pressure 137/75 H Blood Pressure Mean 92 Blood Pressure Source Monitor Blood Pressure Position Semi-Fowlers Blood Pressure Location Left Arm Pulse Ox 97 Oxygen Delivery Method Room Air Room Air 04/29/25 11:37 04/29/25 12:30 04/29/25 13:50 Temperature 97.2 F L Temperature Source Oral Pulse Rate 92 Pulse Strength Normal (2+) Respiratory Rate 16 Respiratory Effort Normal Respiratory Depth Normal Respiratory Pattern Normal Blood Pressure 148/86 H Blood Pressure Mean 106 Blood Pressure Source Monitor Blood Pressure Position Semi-Fowlers Blood Pressure Location Right Arm Pulse Ox 100 Oxygen Delivery Method Room Air Room Air Weight Weight: 254 lb 3.088 oz Body Mass Index (BMI) 33.5 Physical Exam Narrative Patient sitting in bed with left upper extremity in a sling and elevation. Examination of the back shows midline paraspinal tenderness to lower lumbar region. Lower extremity shows dressings over the right rose as well as the right second toe. These were not assessed. Neurologic evaluation of lower extremity shows 5 x 5 power normal scripts. Examination left elbow shows swelling and fullness with redness over the posterior aspect of the left elbow. Pronation supination is pain-free. Elbow flexion extension is limited between 30 and 110 degrees with pain at extremes. Distal neurovascular exam is intact. Lab / Micro Data 04/29/25 04:30 04/29/25 04:30 Labs: Laboratory Results - last 24 hr 04/28/25 17:41: WBC 14.0 H, RBC 4.13 L, Hgb 11.9 L, Hct 35.7 L, MCV 86.4, MCH 28.8, MCHC 33.3, RDW Std Deviation 38.7, RDW Coeff of Sharon 12.2, Plt Count 425, MPV 9.5, Immature Gran % (Auto) 0.600, Neut % (Auto) 82.4 H, Lymph % (Auto) 10.7 L, Hayes % (Auto) 5.4, Eos % (Auto) 0.5, Baso % (Auto) 0.4, Absolute Neuts (auto) 11.5 H, Absolute Lymphs (auto) 1.50, Nucleated RBC % 0, ESR 28 H, PT 15.0 H, INR 1.2, APTT 32.6, Sodium 130 L, Potassium 5.6 H, Chloride 94 L, Carbon Dioxide 18.7 L, Anion Gap 17 H, BUN 27 H, Creatinine 1.69 H, Estim Creat Clear Calc 76.67, Est GFR (MDRD) Non-Af 52 L, BUN/Creatinine Ratio 15.8, Glucose 295 H, Lactic Acid 2.8 H*, Calcium 9.7, Total Bilirubin 0.97, AST 21, ALT 25, Alkaline Phosphatase 156 H, C-React Prot Ext Range 102.00 H, Total Protein 8.9 H, Albumin 3.6, Globulin 5.3 H, Albumin/Globulin Ratio 0.7 L 04/28/25 22:22: Lactic Acid < 1.0 04/28/25 22:23: POC Glucose 240 H 04/29/25 00:49: POC Glucose 261 H 04/29/25 01:30: Urine Color Yellow, Urine Clarity Turbid, Urine pH 5.0, Ur Specific [place] 1.020, Urine Protein 100 H, Urine Glucose (UA) 100 H, Urine Ketones 50 H, Urine Occult Blood 150 H, Urine Nitrite Negative, Urine Bilirubin 1 H, Urine Urobilinogen 4 H, Ur Leukocyte Esterase 500 H, Urine RBC 5-10 SEEN, Urine WBC >100 SEEN, Ur Squamous Epith Cells 0-5 SEEN, Amorphous Sediment 2+, Urine Bacteria 2+, Urine Mucus 0 SEEN 04/29/25 04:30: WBC 8.7, RBC 3.16 L, Hgb 9.0 L, Hct 27.4 L, MCV 86.7, MCH 28.5, MCHC 32.8, RDW Std Deviation 39.0, RDW Coeff of Sharon 12.2, Plt Count 293, MPV 9.3, Immature Gran % (Auto) 0.300, Neut % (Auto) 71.7 H, Lymph % (Auto) 16.6 L, Hayes % (Auto) 9.2, Eos % (Auto) 1.7, Baso % (Auto) 0.5, Absolute Neuts (auto) 6.2, Absolute Lymphs (auto) 1.44, Nucleated RBC % 0, Retic Count 1.70 H, Immature Retic Fraction 9.90, Retic Hgb Equivalent 28.5 L, Sodium 132 L, Potassium 4.5, Chloride 101, Carbon Dioxide 18.2 L, Anion Gap 12, BUN 30 H, Creatinine 1.56 H, Estim Creat Clear Calc 83.74, Est GFR (MDRD) Non-Af 57 L, BUN/Creatinine Ratio 19.0, Glucose 311 H, Hemoglobin A1c 6.9 H, Calcium 7.9, Iron 26 L, TIBC 145 L, Iron Saturation 17.9, Unsaturated IBC 119 L, Ferritin 688 H, Vitamin B12 856 04/29/25 10:42: POC Glucose 225 H Micro: Microbiology 04/29/25 10:43 Wound - Toe Gram Stain - Final 04/28/25 18:10 Blood Culture (Wb) - Right Hand Blood Culture - Preliminary 04/28/25 17:41 Blood Culture (Wb) - Anticubital Left Blood Culture - Preliminary Rhythm Strip Rhythm Strip: Sinus Tach Rate: 138 Ectopy: None Imaging Radiology Impression Chest X-Ray 04/28/25 17:55 IMPRESSION: Lungs appear clear throughout. No pleural effusion or pneumothorax is noted. The cardiomediastinal silhouette is within the normal range. Bilateral acromioclavicular joint degenerative changes are noted. No acute osseous change is seen. Reading Location: [address] Elbow X-Ray 04/28/25 17:55 IMPRESSION: No left elbow joint effusion is seen. No significant arthritic process or joint narrowing is noted. No fracture, dislocation, or other significant osseous or joint space abnormality is seen. Reading Location: [id number] Upper Extremity CT 04/29/25 13:18 IMPRESSION: Soft tissue swelling. No evidence of abscess. No bony destruction. Reading Location: [id number] Assessment & Plan Assessment/Plan (1) Lumbar discitis: (2) Cellulitis of left elbow: PLAN: Plan I reviewed recently done MRI of the lumbar spine which shows L4-5 disc height loss with discitis and possible purulence going into the left psoas muscle. No significant stenosis or nerve root compression noticed. No obvious epidural abscess. No spine bony destruction noticed on this MRI. Left elbow x-rays did not show any acute osseous abnormality. I requested an urgent CT of the left elbow which shows soft tissue swelling without any collections. Discussed imaging findings in detail. Patient has wounds in his right lower extremity in the rose as well as the right second toe which may be a source of infection and possible bacteremia, which may have led to a lumbar discitis. At this time patient is neuro intact and will benefit from medical treatment of discitis with long-term antibiotics. He has had evaluations with blood culture which is pending and has been on IV antibiotics since yesterday since admission. ID consult will be beneficial for planning long-term antibiotics. Will continue to follow for the discitis as needed. At this time no surgical intervention required for the lumbar discitis. For his left elbow pain and swelling, CT does not seem to indicate any significant soft tissue collections or effusion at the elbow. Patient does have pain with elbow range of motion at extremes, but has pain-free forearm rotation. At this time continued monitoring of the cellulitis and treatment with antibiotics would be appropriate. I do not feel significant fullness in the soft spot of the elbow or any effusion on the CT to justify aspiration at this time. Will continue to follow as needed. Charges/Coding Visit Charges Inpatient E&M: 95350 Init Hosp L3
[2025-04-29] MEDS: Ampicillin/Sulbactam 3 GM in 0.9% Normal Saline (100mL MB+) 100 ML IV (17:36)
--- NOTE | 2025-04-29 19:02 | PCM.CONS.GEN ---
Assessment & Plan Assessment/Plan (1) Non-pressure chronic ulcer of other part of right foot limited to breakdown of skin: PLAN: The right second toe was selectively debrided bedside utilizing pickups and tissue scissors. Only nonviable tissue was removed. It is only partial-thickness. Area was then dressed with dry gauze. It is not likely this is the etiology of the patient's sepsis. (2) Type 1 diabetes mellitus with diabetic polyneuropathy: (3) Onychomycosis: PLAN: Patient was strongly encouraged to follow-up with podiatry on a regular basis. They can help with debridement of toenails as this is likely the cause of the wound on the second toe. He also states that he is interested in the permanent nail avulsion of the hallux nails. PLAN: Plan Findings were reviewed with patient. Foot examination performed. Podiatry will follow as needed. HPI Consult Data Date of Consult: 04/29/25 HPI Narrative Reason for Consultation: Right second toe wound. HPI Narrative: SARAH SHEETS, is a 40 M who presents to [facility] for intractable back pain. He states that the MRI was showing possible inflammation or infection so he was told to report to the emergency room immediately. He also has a very swollen and painful left elbow. He is not for sure what happened there. The patient admits that he has a wound to the right second toe. He has history of ulcerations to the right foot where he has been seen by [facility]. He has had the right fifth toe and partial ray resection as well as he says the fourth metatarsal head removed. He states he has not seen his assistant news director, Dr. Ambrocio, since May 2024. He states when his wound healed, he felt like he did not need to go back anymore. [facility] Medical History Hypertriglyceridemia Wears glasses Insulin dependent diabetes mellitus Back pain Migraine headache Syncope Dietary restriction Vapes nicotine containing substance History of pain when walking History of edema Diabetic retinopathy associated with type 1 diabetes mellitus Diabetic neuropathy Osteomyelitis of foot, right, acute DKA (diabetic ketoacidoses) Cellulitis of leg Sepsis Type 1 diabetes mellitus Home Medications ?Medication ?Instructions ?Recorded ?Last Taken ?Type blood sugar diagnostic (FreeStyle #150 ea 10/05/21 Unknown Rx Lite Strips) lancets 28 gauge (FreeStyle #150 ea 09/06/22 Unknown Rx Lancets) blood sugar diagnostic (True #100 ea 09/13/24 Unknown Rx Metrix Glucose Test Strip) pen needle, diabetic 32 gauge x #200 ea 10/12/24 Unknown Rx 5/32 (BD Ultra-Fine Aym Pen Needle) blood-glucose sensor (FreeStyle #6 ea 03/11/25 Unknown Rx Monse 3 Plus Sensor device) insulin glargine 100 unit/mL (3 40 unit (0.4 mL) subcut QHS #15 mL 03/11/25 04/27/25 Rx mL) subcutaneous pen (Lantus Solostar U-100 Insulin) meloxicam 15 mg tablet 15 mg PO QDAY #30 tabs 04/19/25 04/28/25 Rx tizanidine 6 mg capsule 6 mg PO TID PRN muscle spasticity 04/19/25 04/28/25 Rx #30 caps acetaminophen 500 mg tablet 1,000 mg PO Q6H PRN back pain 04/28/25 04/28/25 History (Acetaminophen Extra Strength) fenofibrate nanocrystallized 145 145 mg PO DAILY 04/28/25 Unknown History mg tablet insulin aspart U-100 100 unit/mL See Protocol subcut TID 04/28/25 Unknown History (3 mL) subcutaneous pen (Novolog FlexPen U-100 Insulin aspart) Allergy/AdvReac Type Severity Reaction Status Date / Time cefprozil (From Cefzil) Allergy Unknown Unknown Verified 04/28/25 17:08 Environmental Allergies: Allergy Hives Verified 04/28/25 17:08 Uncoded Family History Father Heart disease Hypertension Mother Diabetes Thyroid disorder Surgical History History of amputation of lesser toe of right foot Social History household members: spouse current occupational status: unemployed Smoking Status: Former smoker Electronic Cigarette Use: with nicotine quit status: considering quitting alcohol intake: never substance use type: does not use what type of physical activity do you participate in: other details: Sometimes do you feel safe at home: Yes Physical Exam Narrative Patient was resting comfortably in bed. Right second toe was dressed with dry gauze from wound nurse. He has left arm in the sling. Const alert, oriented x3 and no apparent distress Extremity Peripheral Pulses: Yes posterior tibial pulses present bilateral (mildly palpable) and dorsalis pedis pulses present bilateral (mildly palpable) Right Lower Extremity: foot and digits Positive for inspection (Right fifth toe has been previously amputated with partial fifth ray resection. Patient admits fourth metatarsal head has been amputated but toe remains.) Skin Wounds: wounds noted size Size: Approximately 0.3 x 0.1 x 0.1 cm. Wound Narrative: There is a slight skin tear to the distal aspect of the right second toe which is approximately 0.1 x 1.0 x 0.1 cm. The original wound, however, appears to be at the distal medial aspect of the second toe. This directly aligns up with the hallux nail and is likely secondary to a laceration from the nail. His nail is elongated and no attention has been given to it in quite some time. Wounds are superficial. Granular tissue is present. There is no purulence or malodor. There is very minimal cellulitis at the dorsal aspect of the distal right second toe beginning at the DIPJ. Nails: discolored, dystrophic and other Bilateral hallux nails are extremely thickened and appear more dystrophic than fungal. Lab / Micro Data 04/29/25 04:30 04/29/25 04:30 Labs: Laboratory Results - last 24 hr 04/28/25 17:41: ESR 28 H, Lactic Acid 2.8 H* 04/28/25 22:22: Lactic Acid < 1.0 04/28/25 22:23: POC Glucose 240 H 04/29/25 00:49: POC Glucose 261 H 04/29/25 01:30: Urine Color Yellow, Urine Clarity Turbid, Urine pH 5.0, Ur Specific [place] 1.020, Urine Protein 100 H, Urine Glucose (UA) 100 H, Urine Ketones 50 H, Urine Occult Blood 150 H, Urine Nitrite Negative, Urine Bilirubin 1 H, Urine Urobilinogen 4 H, Ur Leukocyte Esterase 500 H, Urine RBC 5-10 SEEN, Urine WBC >100 SEEN, Ur Squamous Epith Cells 0-5 SEEN, Amorphous Sediment 2+, Urine Bacteria 2+, Urine Mucus 0 SEEN 04/29/25 04:30: WBC 8.7, RBC 3.16 L, Hgb 9.0 L, Hct 27.4 L, MCV 86.7, MCH 28.5, MCHC 32.8, RDW Std Deviation 39.0, RDW Coeff of [place] 12.2, Plt Count 293, MPV 9.3, Immature Gran % (Auto) 0.300, Neut % (Auto) 71.7 H, Lymph % (Auto) 16.6 L, [place] % (Auto) 9.2, Eos % (Auto) 1.7, Baso % (Auto) 0.5, Absolute Neuts (auto) 6.2, Absolute Lymphs (auto) 1.44, Nucleated RBC % 0, Retic Count 1.70 H, Immature Retic Fraction 9.90, Retic Hgb Equivalent 28.5 L, Sodium 132 L, Potassium 4.5, Chloride 101, Carbon Dioxide 18.2 L, Anion Gap 12, BUN 30 H, Creatinine 1.56 H, Estim Creat Clear Calc 83.74, Est GFR (MDRD) Non-Af 57 L, BUN/Creatinine Ratio 19.0, Glucose 311 H, Hemoglobin A1c 6.9 H, Calcium 7.9, Iron 26 L, TIBC 145 L, Iron Saturation 17.9, Unsaturated IBC 119 L, Ferritin 688 H, Vitamin B12 856 04/29/25 10:42: POC Glucose 225 H 04/29/25 15:49: POC Glucose 214 H Micro: Microbiology 04/28/25 17:41 Blood Culture (Wb) - Anticubital Left Bacteria Detection (PCR) - Preliminary Staphylococcus aureus 04/28/25 17:41 Blood Culture (Wb) - Anticubital Left Blood Culture - Preliminary 04/29/25 10:43 Wound - Toe Gram Stain - Final 04/28/25 18:10 Blood Culture (Wb) - Right Hand Blood Culture - Preliminary Rhythm Strip Rhythm Strip: Sinus Tach Rate: 138 Ectopy: None Imaging Radiology Impression Upper Extremity CT 04/29/25 13:18 IMPRESSION: Soft tissue swelling. No evidence of abscess. No bony destruction. Reading Location: [place] [address]
[2025-04-29] MEDS: Insulin Glargine-YFGN 100 UNIT/ML Pen 40 UNIT SC (22:41)
[2025-04-30] MEDS: Ampicillin/Sulbactam 3 GM in 0.9% Normal Saline (100mL MB+) 100 ML IV ×4 (00:27→17:36)
[2025-04-30 04:04] VITALS: BP 135/70; PULSE 99; RESP 16; TEMP 37.3; O2SAT 94
[2025-04-30 05:20] VITALS: BMI 33.7
[2025-04-30 07:51] LABS: Hematocrit 28.2 % (40-54); Hemoglobin 9.3 g/dL (13.0-16.5); Immature Granulocytes Count 0.060 X10^3/uL (0.0-0.0); Mean Corp Hgb Conc 33.0 g/dL (32-36); Mean Corpuscular Volume 87.6 fL (80-94); Mean Platelet Vol. 9.4 fl (6.2-12.0); NRBC Flagged by Analyzer 0 % (0-5); Platelet Count 315 K/mm3 (150-450); RBC Distribution Width CV 12.3 % (11.6-14.6); RBC Distribution Width SD 39.7 fl (35.1-43.9); Red Blood Count 3.22 M/mm3 (4.6-6.2); White Blood Count 9.6 K/mm3 (4.4-11.0)
[2025-04-30 08:21] LABS: Magnesium 1.5 mg/dL (1.5-2.2)
[2025-04-30 08:22] LABS: Vancomycin, Trough Level 18.0 ug/mL (5.0-15.0)
[2025-04-30 08:24] LABS: Anion Gap 12 (5-15); BUN 19 mg/dL (4-19); BUN/Creat Ratio 15.6 RATIO (10-20); Calcium,Total 8.7 mg/dL (7.6-11.0); Carbon Dioxide 21.2 mmol/L (21.0-32.0); Chloride 98 mmol/L (98-108); Estimated Creatinine Clearance 109.78 ml/min (50-250); Glucose 254 mg/dL (70-99); Potassium 4.6 mmol/L (3.3-5.1)
[2025-04-30] MEDS: Vancomycin Trough/Random Due 1 LAB MC (09:05)
[2025-04-30 09:13] VITALS: BP 123/71; PULSE 113; RESP 19; TEMP 36.9; O2SAT 98
[2025-04-30] MEDS: Vancomycin HCl 1,750 MG in 0.9% Normal Saline (500mL Bag) 500 ML 250 MG IV ×2 (09:29→21:18)
[2025-04-30] MEDS: 0.9% Saline Lock 10 ML Syringe IV ×2 (09:30→17:40)
--- NOTE | 2025-04-30 10:36 | PN.HOSP_ITS ---
Reason for Visit
--- NOTE | 2025-04-30 10:36 | PCM.PN.HOSP ---
Reason for Visit Chief Complaint: back pain Subjective Subjective Reports back pain somewhat improved, not really having any pain in his right foot, still complaining of significant left elbow pain Objective Data Objective Data Vital Signs: Vital Signs Temp Pulse Resp BP Pulse Ox O2 Del Method 98.5 F 113 H 19 H 123/71 H 98 Room Air 04/30/25 09:13 04/30/25 09:13 04/30/25 09:13 04/30/25 09:13 04/30/25 09:13 04/30/25 09:13 Oxygen Delivery Method Room Air Weight: 115.3 kg Body Mass Index (BMI) 33.7 Intake & Output: Intake and Output for Last 24 Hours 04/28/25 04/29/25 04/30/25 23:59 23:59 23:59 Intake Total 2640.00 / 2640.00 3897.96 / 3897.96 200 / 200 Balance 2640.00 / 2640.00 3897.96 / 3897.96 200 / 200 Lab / Micro Data 04/30/25 07:15 04/30/25 07:15 Labs: Laboratory Results - last 24 hr 04/29/25 10:42: POC Glucose 225 H 04/29/25 15:49: POC Glucose 214 H 04/29/25 22:37: POC Glucose 286 H 04/30/25 07:15: WBC 9.6, RBC 3.22 L, Hgb 9.3 L, Hct 28.2 L, MCV 87.6, MCH 28.9, MCHC 33.0, RDW Std Deviation 39.7, RDW Coeff of [place] 12.3, Plt Count 315, MPV 9.4, Immature Gran % (Auto) 0.600, Neut % (Auto) 74.2 H, Lymph % (Auto) 14.5 L, [place] % (Auto) 9.0, Eos % (Auto) 1.4, Baso % (Auto) 0.3, Absolute Neuts (auto) 7.1, Absolute Lymphs (auto) 1.39, Nucleated RBC % 0, Sodium 131 L, Potassium 4.6, Chloride 98, Carbon Dioxide 21.2, Anion Gap 12, BUN 19, Creatinine 1.19, Estim Creat Clear Calc 109.78, Est GFR (MDRD) Non-Af 79, BUN/Creatinine Ratio 15.6, Glucose 254 H, Calcium 8.7, Phosphorus 2.4 L, Magnesium 1.5, Vancomycin Trough 18.0 H Micro: Microbiology 04/29/25 10:43 Wound - Toe Gram Stain - Final 04/29/25 10:43 Wound - Toe Wound Culture - Preliminary Staphylococcus species Beta streptococcus 04/29/25 01:30 Urine, Clean Catch Urine Culture - Preliminary Staphylococcus species 04/28/25 17:41 Blood Culture (Wb) - Anticubital Left Bacteria Detection (PCR) - Preliminary Staphylococcus aureus 04/28/25 17:41 Blood Culture (Wb) - Anticubital Left Blood Culture - Preliminary 04/28/25 18:10 Blood Culture (Wb) - Right Hand Blood Culture - Preliminary Radiography Diagnostic Testing: Radiology Impression Upper Extremity CT 04/29/25 13:18 IMPRESSION: Soft tissue swelling. No evidence of abscess. No bony destruction. Reading Location: [place] [address] Rhythm Strip Rhythm Strip: Sinus Tach Rate: 138 Ectopy: None Physical Exam Narrative General: Alert, oriented, no apparent distress HEENT: Atraumatic, normocephalic Eyes: Anicteric, normal conjunctiva, extraocular movements grossly intact Neck: Supple Respiratory: Clear to auscultation bilaterally, normal respiratory effort Cardiovascular: Regular rate and rhythm GI: Soft, nontender, nondistended Extremities: Left arm in sling, right knee a little bit tender in medial aspect but point tenderness with no effusion or erythema or warmth Musculoskeletal: Left arm in sling, hesitant to move it due to pain Neuro: No overt focal neurological deficits Skin: Chronic lower extremity changes Psych: Cooperative Assessment & Plan Assessment/Plan (1) Sepsis: PLAN: Plan 40 y/o M hx of diabetes presented to [facility] ED 04/28/25 w/ severe back pain and elbow pain. He has had back pain since February 2025 and had an outpatient MRI 04/26 which showed osteomyelitis/discitis and he was advised to come to the ED. He was also complaining of elbow pain. In the ED patient had a white count of 14, Tmax of 100.2 with a bicarb of 18.7, potassium 5.6 and a creatinine of 1.69, lactic acid 2.8. Hospitalist contacted for admission for sepsis secondary to acute discitis versus osteomyelitis of lumbar spine. # Sepsis secondary to staph aureus 2/2 acute discitis versus osteomyelitis of the lumbar spine - Outpatient MRI of lumbar spine showed abnormal signal within L4-L5 intervertebral disc and L4-L5 vertebral bodies consistent with acute edema with extension into the left paravertebral soft tissues and psoas muscle at L4-L5 as well as displacement of L4 nerve root so patient came to the ED - Patient was tachycardic, tachypneic, white count of 14 and lactic acid was 2.8 - He was admitted to the ICU on sepsis protocol and started on IV vancomycin and Unasyn - Spine surgery consulted-no present acute surgical indication - Infectious disease consulted -2 of 2 blood cultures positive thus far for gram-positive cocci in clusters, first blood culture growing Staph aureus # Left elbow cellulitis -Ortho and ID on consult -Broad-spectrum antibiotics -Left upper extremity CT with soft tissue swelling but no effusion however given limited range of motion and pain Ortho with plan to attempt to aspirate joint as patient would need to OR if any evidence of infection - Discussed with orthopedics # Right second toe infection -Podiatry consulted -Debrided at bedside -Patient on antibiotics, ID also on consult #Type 2 diabetes mellitus -Glucose checks and sliding scale insulin -Continue long-acting insulin -Glucose elevation likely exacerbated by underlying infection # SHWETHA-resolved - On presentation creatinine 1.69 up from a baseline of around 1, has subsequently downtrended to 1.19 #DVT ppx: Shaq Zamora MD Charges/Coding Visit Charges Inpatient E&M: 59380 Subs Hosp L2
--- NOTE | 2025-04-30 12:23 | PCM.PN.ORT ---
Subjective Subjective Saw patient in 322 again today. Patient was seen by podiatry last night and right big toe wound was debrided. Blood cultures and urine cultures as well as wound culture from the foot show Staph aureus, sensitivity pending. Patient reports that the left elbow pain has continued to bother him and is feeling even stiffer today. Pain is again localized over the olecranon and more medially than laterally at the elbow. Forearm rotation is stiff but painless. Objective Data Objective Data Vital Signs: Vital Signs Temp Pulse Resp BP Pulse Ox O2 Del Method 98.5 F 113 H 19 H 123/71 H 98 Room Air 04/30/25 09:13 04/30/25 09:13 04/30/25 09:13 04/30/25 09:13 04/30/25 09:13 04/30/25 09:13 Oxygen Delivery Method Room Air Weight: 254 lb 3.088 oz Body Mass Index (BMI) 33.7 Intake & Output: Intake and Output for Last 24 Hours 04/28/25 04/29/25 04/30/25 23:59 23:59 23:59 Intake Total 2640.00 / 2640.00 3897.96 / 3897.96 444.75 / 444.75 Balance 2640.00 / 2640.00 3897.96 / 3897.96 444.75 / 444.75 Lab / Micro Data 04/30/25 07:15 04/30/25 07:15 Labs: Laboratory Results - last 24 hr 04/29/25 15:49: POC Glucose 214 H 04/29/25 22:37: POC Glucose 286 H 04/30/25 06:56: POC Glucose 235 H 04/30/25 07:15: WBC 9.6, RBC 3.22 L, Hgb 9.3 L, Hct 28.2 L, MCV 87.6, MCH 28.9, MCHC 33.0, RDW Std Deviation 39.7, RDW Coeff of [place] 12.3, Plt Count 315, MPV 9.4, Immature Gran % (Auto) 0.600, Neut % (Auto) 74.2 H, Lymph % (Auto) 14.5 L, [place] % (Auto) 9.0, Eos % (Auto) 1.4, Baso % (Auto) 0.3, Absolute Neuts (auto) 7.1, Absolute Lymphs (auto) 1.39, Nucleated RBC % 0, Sodium 131 L, Potassium 4.6, Chloride 98, Carbon Dioxide 21.2, Anion Gap 12, BUN 19, Creatinine 1.19, Estim Creat Clear Calc 109.78, Est GFR (MDRD) Non-Af 79, BUN/Creatinine Ratio 15.6, Glucose 254 H, Calcium 8.7, Phosphorus 2.4 L, Magnesium 1.5, Vancomycin Trough 18.0 H Micro: Microbiology 04/28/25 18:10 Blood Culture (Wb) - Right Hand Blood Culture - Preliminary Staphylococcus aureus 04/28/25 17:41 Blood Culture (Wb) - Anticubital Left Bacteria Detection (PCR) - Final Staphylococcus aureus 04/28/25 17:41 Blood Culture (Wb) - Anticubital Left Blood Culture - Preliminary Staphylococcus aureus 04/29/25 10:43 Wound - Toe Gram Stain - Final 04/29/25 10:43 Wound - Toe Wound Culture - Preliminary Staphylococcus species Beta streptococcus 04/29/25 01:30 Urine, Clean Catch Urine Culture - Preliminary Staphylococcus species Radiography Diagnostic Testing: Radiology Impression Upper Extremity CT 04/29/25 13:18 IMPRESSION: Soft tissue swelling. No evidence of abscess. No bony destruction. Reading Location: [place] [address] Rhythm Strip Rhythm Strip: Sinus Tach Rate: 138 Ectopy: None Physical Exam Narrative Patient sitting in bed with left upper extremity in a sling and elevation. Examination of the back shows midline paraspinal tenderness to lower lumbar region. Lower extremity shows dressings over the right rose as well as the right second toe. These were not assessed. Neurologic evaluation of lower extremity shows 5 x 5 power. Examination left elbow shows swelling and fullness with redness over the posterior aspect of the left elbow. Pronation supination is pain-free. Elbow flexion extension is limited between 30 and 90 degrees with pain at extremes, worsen from yesterday. Distal neurovascular exam is intact. Assessment & Plan Assessment/Plan (1) Lumbar discitis: (2) Cellulitis of left elbow: PLAN: Plan Again reviewed recently done MRI of the lumbar spine which shows L4-5 disc height loss with discitis and possible purulence going into the left psoas muscle. No significant stenosis or nerve root compression noticed. No obvious epidural abscess. No spine bony destruction noticed on this MRI. Left elbow x-rays did not show any acute osseous abnormality. I requested an urgent CT of the left elbow which shows soft tissue swelling without any collections. Discussed imaging findings in detail. At this time patient is neuro intact and will benefit from medical treatment of discitis with long-term antibiotics. Culture shows staph in the blood cultures and urine cultures. Antibiotics per ID. At this time no surgical intervention required for the lumbar discitis. For his left elbow pain and swelling, CT does not seem to indicate any significant soft tissue collections or effusion at the elbow. Patient does have pain with elbow range of motion at extremes, but has pain-free forearm rotation. Due to the reduced range of motion compared to yesterday, I discussed with the patient about aspiration of the left elbow to see for cell count and Gram stain and cultures. Patient was agreeable. Consent was taken. Please see procedure note. We will review Gram stain, culture, synovial fluid analysis once complete later this afternoon. If it appears to indicate septic arthritis, patient will need left elbow I&D. Answered all questions. Charges/Coding Visit Charges Inpatient E&M: 35167 Subs Hosp L3
--- NOTE | 2025-04-30 12:29 | PRO.PCM_ITS ---
Procedures Musculoskeletal
--- NOTE | 2025-04-30 12:29 | PCM.OP.PRO2 ---
Procedures Musculoskeletal [id number]: Other Procedure See Report Bedside Procedural Bedside Procedure Information Date of Procedure: 04/30/25 Pre-Procedure Diagnosis: Left elbow cellulitis, suspected septic arthritis Post-Procedure Diagnosis: Same Procedure Performed:: Left elbow joint aspiration without ultrasound guidance Description of procedure: Under all aseptic precautions, ChloraPrep was used to prep the skin over the posterolateral aspect of the left elbow. Towels you used to drape around the left elbow. Through sterile technique, 1% lidocaine was injected with a 26-gauge needle under the skin in the area of the soft spot of the left elbow. An 18-gauge needle was then used to enter the left elbow joint through the posterolateral approach, and 5 cc of straw-colored synovial fluid was aspirated. This was sent in a sterile fashion for Gram stain, culture, synovial fluid analysis. Area was cleaned again and gauze with Band-Aid was applied. Patient tolerated the procedure well. Complications Complications: No
[2025-04-30] MEDS: Lidocaine 1% (20 ml mdv) 20 ML Vial INFILT (12:42)
[2025-04-30 13:56] LABS: Synovial Fld Mononuclear WBC # 0.086 10^3/ul; Synovial Fld Mononuclear WBC % 93.4 %; Synovial Fld Polynuclear WBC # 0.006 10^3/uL; Synovial Fld Polynuclear WBC % 6.6 %; Total Cell Count Synovial Fld 0.0980 10^3/uL (0.000-0.000); WBC / Synovial Fluid 0.0920 10^3/uL (0.000-0.002)
[2025-04-30 14:11] LABS: RBC /Synovial Fluid 0.004 10^6/uL (0)
[2025-04-30 14:12] LABS: AUTO B FLUID DILUENT BKGD CT WBC <0.1 RBC <0.01 (W<.1,R<.01); Appearance /Synovial Fluid Sl Cl (CLEAR); Color / Synovial Fluid Straw (Pale Yellow); Source / Synovial Fluid LEFT ELBOW JOINT
[2025-04-30 15:00] VITALS: BP 128/67; PULSE 88; RESP 16; TEMP 36.7; O2SAT 97
[2025-04-30 15:00] LABS: Monocyte /Synovial Fluid 94 %
[2025-04-30 15:01] LABS: Body Fluid QC Type(s) BF1Q
--- NOTE | 2025-04-30 15:33 | PCM.RX.CS ---
Consult Antibiotic Management Pharmacy has been consulted to manage selected antibiotic: Vancomycin Type of Intervention Type of Consult: Follow-up Suspected Infection Suspected Infection: Sepsis Labs Labs: Sodium 131 mmol/L (133-145) L 04/30/25 07:15 Potassium 4.6 mmol/L (3.3-5.1) 04/30/25 07:15 Chloride 98 mmol/L (98-108) 04/30/25 07:15 Carbon Dioxide 21.2 mmol/L (21.0-32.0) 04/30/25 07:15 Anion Gap 12 (5-15) 04/30/25 07:15 BUN 19 mg/dL (4-19) 04/30/25 07:15 Creatinine 1.19 mg/dL (0.70-1.20) 04/30/25 07:15 Est GFR (MDRD) Non-Af 79 (>60) 04/30/25 07:15 BUN/Creatinine Ratio 15.6 RATIO (10-20) 04/30/25 07:15 Glucose 254 mg/dL (70-99) H 04/30/25 07:15 Vancomycin Trough 18.0 ug/mL (5.0-15.0) H 04/30/25 07:15 Microbiology Microbiology: Microbiology 04/30/25 12:00 Fluid - Synovial (joint) Gram Stain - Final 04/28/25 18:10 Blood Culture (Wb) - Right Hand Blood Culture - Preliminary Staphylococcus aureus 04/28/25 17:41 Blood Culture (Wb) - Anticubital Left Bacteria Detection (PCR) - Final Staphylococcus aureus 04/28/25 17:41 Blood Culture (Wb) - Anticubital Left Blood Culture - Preliminary Staphylococcus aureus 04/29/25 10:43 Wound - Toe Gram Stain - Final 04/29/25 10:43 Wound - Toe Wound Culture - Preliminary Staphylococcus species Beta streptococcus 04/29/25 01:30 Urine, Clean Catch Urine Culture - Preliminary Staphylococcus species Goal Trough Goal Trough: 15-20 mcg/mL Pharmacy Plan for Drug Dosing Pharmacy Plan for Drug Dosing: VANCOMYCIN LEVEL RECEIVED Current Vancomycin Dose: 1750mg q12h (0730, 1930) Number of Doses Received: x2 of current dose Vancomycin Level: 18 (drawn at 0715 on 04/30/25) Hours Since Last Dose: 11.5 hours since last 1750mg dose on 04/29/25 at 2046 Renal Function: SrCr 1.19 Renal Function Trend: SrCr improving (was 1.56 on 04/29/25) Lab/Micro: Vancomycin Plan/Comments: resulted trough of 18 is within the ordered goal trough range of 15-20. recommend continuing current dose of 1750mg q12h and checking a trough prior to the 4th dose Pending Level: 05/01/25 at 1900 Pharmacy Service will continue to monitor and adjust dosing as required. Follow-Up Labs Follow-Up Labs: Trough: Vancomycin (05/01/25 at 1900)
[2025-04-30] MEDS: Ketorolac 30 MG/ML Syringe IV (17:39)
[2025-04-30 21:00] VITALS: BP 133/83; PULSE 87; RESP 15; RESP 16; TEMP 36.6; O2SAT 100
[2025-04-30] MEDS: Insulin Glargine-YFGN 100 UNIT/ML Pen 40 UNIT SC (21:29)
[2025-05-01] MEDS: Ampicillin/Sulbactam 3 GM in 0.9% Normal Saline (100mL MB+) 100 ML IV ×4 (00:22→17:09)
[2025-05-01 04:38] LABS: Hematocrit 26.0 % (40-54); Hemoglobin 8.8 g/dL (13.0-16.5); Immature Granulocytes Count 0.030 X10^3/uL (0.0-0.0); Mean Corp Hgb Conc 33.8 g/dL (32-36); Mean Corpuscular Volume 85.5 fL (80-94); Mean Platelet Vol. 9.4 fl (6.2-12.0); NRBC Flagged by Analyzer 0 % (0-5); Platelet Count 307 K/mm3 (150-450); RBC Distribution Width CV 12.1 % (11.6-14.6); RBC Distribution Width SD 37.7 fl (35.1-43.9); Red Blood Count 3.04 M/mm3 (4.6-6.2); White Blood Count 6.3 K/mm3 (4.4-11.0)
[2025-05-01 05:05] LABS: Anion Gap 9 (5-15); BUN 19 mg/dL (4-19); BUN/Creat Ratio 19.5 RATIO (10-20); Calcium,Total 8.8 mg/dL (7.6-11.0); Carbon Dioxide 22.9 mmol/L (21.0-32.0); Chloride 101 mmol/L (98-108); Estimated Creatinine Clearance 133.30 ml/min (50-250); Glucose 238 mg/dL (70-99); Potassium 3.9 mmol/L (3.3-5.1)
[2025-05-01 05:54] VITALS: BMI 33.7
[2025-05-01] MEDS: Vancomycin HCl 1,750 MG in 0.9% Normal Saline (500mL Bag) 500 ML 250 MG IV (07:03)
[2025-05-01] MEDS: Ketorolac 30 MG/ML Syringe IV ×2 (09:31→17:30)
[2025-05-01] MEDS: 0.9% Normal Saline (250mL Bag) 250 ML 15 ML IV (09:39)
[2025-05-01 09:41] VITALS: BP 132/84; PULSE 92; RESP 17; TEMP 36.6; O2SAT 98
--- NOTE | 2025-05-01 13:12 | PCM.PN.ORT ---
Subjective Subjective Reviewed synovial fluid results. No growth yet on culture. WBC count on synovial fluid 0.920 x 10^3 cells/uL . Not likley to be septic elbow. Will observe for now. Objective Data Objective Data Vital Signs: Vital Signs Temp Pulse Resp BP Pulse Ox O2 Del Method 97.8 F 92 17 132/84 H 98 Room Air 05/01/25 09:41 05/01/25 09:41 05/01/25 09:41 05/01/25 09:41 05/01/25 09:41 05/01/25 09:41 Oxygen Delivery Method Room Air Weight: 254 lb 3.088 oz Body Mass Index (BMI) 33.7 Intake & Output: Intake and Output for Last 24 Hours 04/29/25 04/30/25 05/01/25 23:59 23:59 23:59 Intake Total 3897.96 / 3897.96 1714.75 / 1714.75 1227.25 / 1227.25 Balance 3897.96 / 3897.96 1714.75 / 1714.75 1227.25 / 1227.25 Lab / Micro Data 05/01/25 04:13 05/01/25 04:13 Labs: Laboratory Results - last 24 hr 04/30/25 12:00: Synovial Source LEFT ELBOW JOINT, Synovial Color Straw, Synovial Appearance Sl Cl, Synovial WBC 0.0920 H, Synovial RBC 0.004 H, Synovial Tot Cell Ct 0.0980 H, Synov Polynuclear WBCs 0.006, Synov Mononuclear WBCs 0.086, Synovial Neutrophils 2, Synovial Lymphocytes 4, Synovial Monocytes 94, Synovial Polynuclear % 6.6, Synovial Mononuclear % 93.4, Synovial Path Comment May follow 04/30/25 17:33: POC Glucose 288 H 04/30/25 21:26: POC Glucose 337 H 05/01/25 04:13: WBC 6.3, RBC 3.04 L, Hgb 8.8 L, Hct 26.0 L, MCV 85.5, MCH 28.9, MCHC 33.8, RDW Std Deviation 37.7, RDW Coeff of [place] 12.1, Plt Count 307, MPV 9.4, Immature Gran % (Auto) 0.500, Neut % (Auto) 58.9, Lymph % (Auto) 26.4, [place] % (Auto) 10.0, Eos % (Auto) 3.9, Baso % (Auto) 0.3, Absolute Neuts (auto) 3.7, Absolute Lymphs (auto) 1.67, Nucleated RBC % 0, Sodium 133, Potassium 3.9, Chloride 101, Carbon Dioxide 22.9, Anion Gap 9, BUN 19, Creatinine 0.98, Estim Creat Clear Calc 133.30, Est GFR (MDRD) Non-Af 100, BUN/Creatinine Ratio 19.5, Glucose 238 H, Calcium 8.8 05/01/25 07:05: POC Glucose 199 H 05/01/25 11:50: POC Glucose 222 H Micro: Microbiology 04/28/25 18:10 Blood Culture (Wb) - Right Hand Blood Culture - Preliminary Staphylococcus aureus 04/29/25 10:43 Wound - Toe Gram Stain - Final 04/29/25 10:43 Wound - Toe Wound Culture - Preliminary Staphylococcus aureus Streptococcus group B 04/30/25 12:00 Fluid - Synovial (joint) Gram Stain - Final 04/30/25 12:00 Fluid - Synovial (joint) Body Fluid Culture - Preliminary No growth-Final to follow 04/28/25 17:41 Blood Culture (Wb) - Anticubital Left Bacteria Detection (PCR) - Final Staphylococcus aureus 04/28/25 17:41 Blood Culture (Wb) - Anticubital Left Blood Culture - Final Staphylococcus aureus 04/29/25 01:30 Urine, Clean Catch Urine Culture - Final Staphylococcus aureus Rhythm Strip Rhythm Strip: Sinus Tach Rate: 138 Ectopy: None Charges/Coding Visit Charges Inpatient E&M: 46020 Subs Hosp L1
--- NOTE | 2025-05-01 15:18 | ECHOCS_ITS ---
Reason For Study ECHO/Echo Complete W/ Contrast
--- NOTE | 2025-05-01 15:18 | PN.HOSP_ITS ---
Reason for Visit
--- NOTE | 2025-05-01 15:18 | PCM.PN.HOSP ---
Reason for Visit Chief Complaint: back pain Subjective Subjective Continues to have some back pain, left elbow pain significantly improved from yesterday with better range of motion Objective Data Objective Data Vital Signs: Vital Signs Temp Pulse Resp BP Pulse Ox O2 Del Method 97.8 F 92 17 132/84 H 98 Room Air 05/01/25 09:41 05/01/25 09:41 05/01/25 09:41 05/01/25 09:41 05/01/25 09:41 05/01/25 09:41 Oxygen Delivery Method Room Air Weight: 115.3 kg Body Mass Index (BMI) 33.7 Intake & Output: Intake and Output for Last 24 Hours 04/29/25 04/30/25 05/01/25 23:59 23:59 23:59 Intake Total 3897.96 / 3897.96 1714.75 / 1714.75 1227.25 / 1227.25 Balance 3897.96 / 3897.96 1714.75 / 1714.75 1227.25 / 1227.25 Lab / Micro Data 05/01/25 04:13 05/01/25 04:13 Labs: Laboratory Results - last 24 hr 04/30/25 17:33: POC Glucose 288 H 04/30/25 21:26: POC Glucose 337 H 05/01/25 04:13: WBC 6.3, RBC 3.04 L, Hgb 8.8 L, Hct 26.0 L, MCV 85.5, MCH 28.9, MCHC 33.8, RDW Std Deviation 37.7, RDW Coeff of [place] 12.1, Plt Count 307, MPV 9.4, Immature Gran % (Auto) 0.500, Neut % (Auto) 58.9, Lymph % (Auto) 26.4, [place] % (Auto) 10.0, Eos % (Auto) 3.9, Baso % (Auto) 0.3, Absolute Neuts (auto) 3.7, Absolute Lymphs (auto) 1.67, Nucleated RBC % 0, Sodium 133, Potassium 3.9, Chloride 101, Carbon Dioxide 22.9, Anion Gap 9, BUN 19, Creatinine 0.98, Estim Creat Clear Calc 133.30, Est GFR (MDRD) Non-Af 100, BUN/Creatinine Ratio 19.5, Glucose 238 H, Calcium 8.8 05/01/25 07:05: POC Glucose 199 H 05/01/25 11:50: POC Glucose 222 H Micro: Microbiology 04/28/25 18:10 Blood Culture (Wb) - Right Hand Blood Culture - Preliminary Staphylococcus aureus 04/29/25 10:43 Wound - Toe Gram Stain - Final 04/29/25 10:43 Wound - Toe Wound Culture - Preliminary Staphylococcus aureus Streptococcus group B 04/30/25 12:00 Fluid - Synovial (joint) Gram Stain - Final 04/30/25 12:00 Fluid - Synovial (joint) Body Fluid Culture - Preliminary No growth-Final to follow 04/28/25 17:41 Blood Culture (Wb) - Anticubital Left Bacteria Detection (PCR) - Final Staphylococcus aureus 04/28/25 17:41 Blood Culture (Wb) - Anticubital Left Blood Culture - Final Staphylococcus aureus 04/29/25 01:30 Urine, Clean Catch Urine Culture - Final Staphylococcus aureus Rhythm Strip Rhythm Strip: Sinus Tach Rate: 138 Ectopy: None Physical Exam Narrative General: Alert, oriented, no apparent distress HEENT: Atraumatic, normocephalic Eyes: Anicteric, normal conjunctiva, extraocular movements grossly intact Neck: Supple Respiratory: Clear to auscultation bilaterally, normal respiratory effort Cardiovascular: Regular rate and rhythm GI: Soft, nontender, nondistended Extremities: Left arm in sling, he removed from sling and was able to move elbow fairly freely, bandage over area where fluid was aspirated Musculoskeletal: Moving all extremities Neuro: No overt focal neurological deficits Skin: Chronic lower extremity changes Psych: Cooperative Assessment & Plan Assessment/Plan (1) Sepsis: PLAN: Plan 40 y/o M hx of diabetes presented to [facility] ED 04/28/25 w/ severe back pain and elbow pain. He has had back pain since February 2025 and had an outpatient MRI 04/26 which showed osteomyelitis/discitis and he was advised to come to the ED. He was also complaining of elbow pain. In the ED patient had a white count of 14, Tmax of 100.2 with a bicarb of 18.7, potassium 5.6 and a creatinine of 1.69, lactic acid 2.8. Hospitalist contacted for admission for sepsis secondary to acute discitis versus osteomyelitis of lumbar spine. # Sepsis secondary to staph aureus 2/2 acute discitis versus osteomyelitis of the lumbar spine - Outpatient MRI of lumbar spine showed abnormal signal within L4-L5 intervertebral disc and L4-L5 vertebral bodies consistent with acute edema with extension into the left paravertebral soft tissues and psoas muscle at L4-L5 as well as displacement of L4 nerve root so patient came to the ED - Patient was tachycardic, tachypneic, white count of 14 and lactic acid was 2.8 - He was admitted to the ICU on sepsis protocol and started on IV vancomycin and Unasyn - Spine surgery consulted-no present acute surgical indication - Infectious disease consulted -2 of 2 blood cultures positive thus far for gram-positive cocci in clusters, first blood culture growing Staph aureus -05/01: Given both blood cultures growing Staph aureus echo ordered, repeat cultures ordered to see if this is clearing, ID on consult, orthospine on consult # Left elbow cellulitis -Ortho and ID on consult -Broad-spectrum antibiotics -Left upper extremity CT with soft tissue swelling but no effusion however given limited range of motion and pain Ortho with plan to attempt to aspirate joint as patient would need to OR if any evidence of infection - Discussed with orthopedics -05/01: Preliminary studies do not appear to be septic arthritis, Ortho following, fluid culture thus far no growth # Right second toe infection -Podiatry consulted -Debrided at bedside -Patient on antibiotics, ID also on consult -05/01: Toe growing Staph aureus and strep B, ID following, patient remains on vancomycin and Unasyn, further culture and sensitivity data pending #Type 2 diabetes mellitus -Glucose checks and sliding scale insulin -Continue long-acting insulin -Glucose elevation likely exacerbated by underlying infection -05/01: Adjusting sliding scale, continue long-acting Chronic medical problems and/or problems not being actively addressed during today's encounter: # SHWETHA-resolved - On presentation creatinine 1.69 up from a baseline of around 1, has subsequently downtrended to 1.19 #DVT ppx: SCDs Park Zamora MD Charges/Coding Visit Charges Inpatient E&M: 03909 Subs Hosp L2
[2025-05-01 17:12] VITALS: BP 150/79; PULSE 85; RESP 17; TEMP 36.6; O2SAT 99
[2025-05-01] MEDS: 0.9% Saline Lock 10 ML Syringe IV (17:31)
[2025-05-01 19:21] LABS: Vancomycin, Trough Level 21.3 ug/mL (5.0-15.0)
--- NOTE | 2025-05-01 19:45 | PCM.RX.CS ---
Consult Antibiotic Management Pharmacy has been consulted to manage selected antibiotic: Vancomycin Type of Intervention Type of Consult: Follow-up Labs Labs: Sodium 133 mmol/L (133-145) 05/01/25 04:13 Potassium 3.9 mmol/L (3.3-5.1) 05/01/25 04:13 Chloride 101 mmol/L (98-108) 05/01/25 04:13 Carbon Dioxide 22.9 mmol/L (21.0-32.0) 05/01/25 04:13 Anion Gap 9 (5-15) 05/01/25 04:13 BUN 19 mg/dL (4-19) 05/01/25 04:13 Creatinine 0.98 mg/dL (0.70-1.20) 05/01/25 04:13 Est GFR (MDRD) Non-Af 100 (>60) 05/01/25 04:13 BUN/Creatinine Ratio 19.5 RATIO (10-20) 05/01/25 04:13 Glucose 238 mg/dL (70-99) H 05/01/25 04:13 Vancomycin Trough 21.3 ug/mL (5.0-15.0) H 05/01/25 18:50 Microbiology Microbiology: Microbiology 04/28/25 18:10 Blood Culture (Wb) - Right Hand Blood Culture - Preliminary Staphylococcus aureus 04/29/25 10:43 Wound - Toe Gram Stain - Final 04/29/25 10:43 Wound - Toe Wound Culture - Preliminary Staphylococcus aureus Streptococcus group B 04/30/25 12:00 Fluid - Synovial (joint) Gram Stain - Final 04/30/25 12:00 Fluid - Synovial (joint) Body Fluid Culture - Preliminary No growth-Final to follow 04/28/25 17:41 Blood Culture (Wb) - Anticubital Left Bacteria Detection (PCR) - Final Staphylococcus aureus 04/28/25 17:41 Blood Culture (Wb) - Anticubital Left Blood Culture - Final Staphylococcus aureus 04/29/25 01:30 Urine, Clean Catch Urine Culture - Final Staphylococcus aureus Goal Trough Goal Trough: 15-20 mcg/mL Pharmacy Plan for Drug Dosing Pharmacy Plan for Drug Dosing: Pharmacy Service will continue to monitor and adjust dosing as required. TROUGH 21.3 @ 12 HOURS. HOLD DOSE AND DRAW RANDOM LEVEL IN 8 HOURS Follow-Up Labs Follow-Up Labs: Trough: Vancomycin Date/Time Labs Ordered Labs to be done on [date and time ordered]: 05/02 @ [id number]
[2025-05-01 21:11] VITALS: BP 115/72; PULSE 81; RESP 15; TEMP 36.4; O2SAT 97
[2025-05-01] MEDS: Insulin Glargine-YFGN 100 UNIT/ML Pen 40 UNIT SC (21:22)
[2025-05-02] MEDS: Ampicillin/Sulbactam 3 GM in 0.9% Normal Saline (100mL MB+) 100 ML IV ×5 (00:19→23:55)
[2025-05-02 03:00] VITALS: BP 150/80; PULSE 95; RESP 15; TEMP 36.7; O2SAT 98
[2025-05-02 03:17] LABS: Hematocrit 28.3 % (40-54); Hemoglobin 9.4 g/dL (13.0-16.5); Immature Granulocytes Count 0.050 X10^3/uL (0.0-0.0); Mean Corp Hgb Conc 33.2 g/dL (32-36); Mean Corpuscular Volume 84.7 fL (80-94); Mean Platelet Vol. 9.1 fl (6.2-12.0); NRBC Flagged by Analyzer 0 % (0-5); Platelet Count 453 K/mm3 (150-450); RBC Distribution Width CV 12.1 % (11.6-14.6); RBC Distribution Width SD 37.1 fl (35.1-43.9); Red Blood Count 3.34 M/mm3 (4.6-6.2); White Blood Count 8.1 K/mm3 (4.4-11.0)
[2025-05-02 03:46] LABS: Anion Gap 10 (5-15); BUN 20 mg/dL (4-19); BUN/Creat Ratio 20.4 RATIO (10-20); Calcium,Total 9.0 mg/dL (7.6-11.0); Carbon Dioxide 24.4 mmol/L (21.0-32.0); Chloride 100 mmol/L (98-108); Estimated Creatinine Clearance 131.96 ml/min (50-250); Glucose 156 mg/dL (70-99); Potassium 4.3 mmol/L (3.3-5.1)
[2025-05-02 03:47] LABS: Vancomycin, Random Level 14.8 ug/mL (0.0-15.0)
[2025-05-02] MEDS: Vancomycin HCl 1,500 MG in 0.9% Normal Saline (500mL Bag) 500 ML 250 MG IV (04:00)
--- NOTE | 2025-05-02 05:06 | PCM.RX.CS ---
Consult Antibiotic Management Pharmacy has been consulted to manage selected antibiotic: Vancomycin Type of Intervention Type of Consult: Follow-up Labs Labs: Sodium 135 mmol/L (133-145) 05/02/25 03:08 Potassium 4.3 mmol/L (3.3-5.1) 05/02/25 03:08 Chloride 100 mmol/L (98-108) 05/02/25 03:08 Carbon Dioxide 24.4 mmol/L (21.0-32.0) 05/02/25 03:08 Anion Gap 10 (5-15) 05/02/25 03:08 BUN 20 mg/dL (4-19) H 05/02/25 03:08 Creatinine 0.99 mg/dL (0.70-1.20) 05/02/25 03:08 Est GFR (MDRD) Non-Af 99 (>60) 05/02/25 03:08 BUN/Creatinine Ratio 20.4 RATIO (10-20) H 05/02/25 03:08 Glucose 156 mg/dL (70-99) H 05/02/25 03:08 Vancomycin Trough 21.3 ug/mL (5.0-15.0) H 05/01/25 18:50 Random Vancomycin 14.8 ug/mL (0.0-15.0) 05/02/25 03:08 Microbiology Microbiology: Microbiology 04/28/25 18:10 Blood Culture (Wb) - Right Hand Blood Culture - Preliminary Staphylococcus aureus 04/29/25 10:43 Wound - Toe Gram Stain - Final 04/29/25 10:43 Wound - Toe Wound Culture - Preliminary Staphylococcus aureus Streptococcus group B 04/30/25 12:00 Fluid - Synovial (joint) Gram Stain - Final 04/30/25 12:00 Fluid - Synovial (joint) Body Fluid Culture - Preliminary No growth-Final to follow 04/28/25 17:41 Blood Culture (Wb) - Anticubital Left Bacteria Detection (PCR) - Final Staphylococcus aureus 04/28/25 17:41 Blood Culture (Wb) - Anticubital Left Blood Culture - Final Staphylococcus aureus 04/29/25 01:30 Urine, Clean Catch Urine Culture - Final Staphylococcus aureus Goal Trough Goal Trough: 15-20 mcg/mL Pharmacy Plan for Drug Dosing Pharmacy Plan for Drug Dosing: Pharmacy Service will continue to monitor and adjust dosing as required. RANDOM LEVEL 14.8@ 20 HOURS. START 1500MG Q12H AND DRAW TROUGH PRIOR TO 4TH DOSE Follow-Up Labs Follow-Up Labs: Trough: Vancomycin Date/Time Labs Ordered Labs to be done on [date and time ordered]: 05/03 @ 3781
[2025-05-02 05:33] VITALS: BMI 33.5
--- NOTE | 2025-05-02 08:21 | WOUNDNOTE ---
wound photo: right 2nd toe
--- NOTE | 2025-05-02 08:21 | WOUNDNOTE ---
wound photo: right 2nd toe
--- NOTE | 2025-05-02 08:28 | PN.HOSP_ITS ---
Reason for Visit
--- NOTE | 2025-05-02 08:28 | PCM.PN.HOSP ---
Reason for Visit Chief Complaint: back pain Subjective Subjective complaining of back pain, worse with movement. Objective Data Objective Data Vital Signs: Vital Signs Temp Pulse Resp BP Pulse Ox O2 Del Method 36.7 C 95 15 150/80 H 98 Room Air 05/02/25 03:00 05/02/25 03:00 05/02/25 03:00 05/02/25 03:00 05/02/25 03:00 05/02/25 03:00 Oxygen Delivery Method Room Air Weight: 114.8 kg Body Mass Index (BMI) 33.5 Intake & Output: Intake and Output for Last 24 Hours 04/30/25 05/01/25 05/02/25 23:59 23:59 23:59 Intake Total 1714.75 / 1714.75 1327.25 / 1327.25 947.75 / 947.75 Balance 1714.75 / 1714.75 1327.25 / 1327.25 947.75 / 947.75 Lab / Micro Data 05/02/25 03:08 05/02/25 03:08 Labs: Laboratory Results - last 24 hr 05/01/25 07:05: POC Glucose 199 H 05/01/25 11:50: POC Glucose 222 H 05/01/25 16:55: POC Glucose 278 H 05/01/25 18:50: Vancomycin Trough 21.3 H 05/01/25 21:18: POC Glucose 288 H 05/02/25 03:08: WBC 8.1, RBC 3.34 L, Hgb 9.4 L, Hct 28.3 L, MCV 84.7, MCH 28.1, MCHC 33.2, RDW Std Deviation 37.1, RDW Coeff of Sharon 12.1, Plt Count 453 H, MPV 9.1, Immature Gran % (Auto) 0.600, Neut % (Auto) 65.5, Lymph % (Auto) 21.3, [place] % (Auto) 8.1, Eos % (Auto) 4.0, Baso % (Auto) 0.5, Absolute Neuts (auto) 5.3, Absolute Lymphs (auto) 1.72, Nucleated RBC % 0, Sodium 135, Potassium 4.3, Chloride 100, Carbon Dioxide 24.4, Anion Gap 10, BUN 20 H, Creatinine 0.99, Estim Creat Clear Calc 131.96, Est GFR (MDRD) Non-Af 99, BUN/Creatinine Ratio 20.4 H, Glucose 156 H, Calcium 9.0, Random Vancomycin 14.8 05/02/25 06:33: POC Glucose 128 H Micro: Microbiology 04/29/25 10:43 Wound - Toe Gram Stain - Final 04/29/25 10:43 Wound - Toe Wound Culture - Final Staphylococcus aureus Streptococcus agalactiae (B) 04/28/25 18:10 Blood Culture (Wb) - Right Hand Blood Culture - Preliminary Staphylococcus aureus 04/30/25 12:00 Fluid - Synovial (joint) Gram Stain - Final 04/30/25 12:00 Fluid - Synovial (joint) Body Fluid Culture - Preliminary No growth-Final to follow 04/28/25 17:41 Blood Culture (Wb) - Anticubital Left Bacteria Detection (PCR) - Final Staphylococcus aureus 04/28/25 17:41 Blood Culture (Wb) - Anticubital Left Blood Culture - Final Staphylococcus aureus 04/29/25 01:30 Urine, Clean Catch Urine Culture - Final Staphylococcus aureus Rhythm Strip Rhythm Strip: Sinus Tach Rate: 138 Ectopy: None Physical Exam Const alert and no apparent distress HEENT head/scalp atraumatic and moist oral mucous membranes Resp normal respiratory effort, no retractions, no use of accessory muscles and clear to auscultation bilaterally Cardio regular rate, regular rhythm, S1 normal heart sound and S2 normal heart sound GI normal to inspection, nondistended, normoactive bowel sounds, soft to palpation, non-tender and non-distended Extremity normal to inspection and full ROM Extremity Narrative: good ROM of left elbow, but cannot fully extend. slight TTP. reproducible right lower paraspinal muscle tenderness. Skin Skin Narrative: superficial scab over right anterior rose. superficial ulceration right second toe. Neuro Sensorium / Orientation: awake and alert Assessment & Plan Assessment/Plan (1) Sepsis: PLAN: Plan Sepsis secondary POA. Refer to H+P for criteria. 2/2 diskitis, left elbow cellulitis and right 2nd toe infection. Bacteremia likely 2/2 wound which likely led to diskitis S. aureus follow up cultures from the pending. Diskitis to staph aureus 2/2 acute discitis versus osteomyelitis of the lumbar spine Outpatient MRI of lumbar spine showed abnormal signal within L4-L5 intervertebral disc and L4-L5 vertebral bodies consistent with acute edema with extension into the left paravertebral soft tissues and psoas muscle at L4-L5 as well as displacement of L4 nerve root so patient came to the ED Spine surgery consulted-no present acute surgical indication Infectious disease consulted 2 of 2 blood cultures positive thus far for gram-positive cocci in clusters, first blood culture growing Staph aureus 05/01: Given both blood cultures growing Staph aureus echo ordered, repeat cultures ordered to see if this is clearing, ID on consult, orthospine on consult Left elbow cellulitis septic arthritis ruled out. Ortho and ID on consult Broad-spectrum antibiotics Left upper extremity CT with soft tissue swelling but no effusion however given limited range of motion and pain Ortho with plan to attempt to aspirate joint as patient would need to OR if any evidence of infection Right second toe infection Podiatry consulted Debrided at bedside Patient on antibiotics, ID also on consult 05/01: Toe growing Staph aureus and strep B, ID following, patient remains on vancomycin and Unasyn, further culture and sensitivity data pending Type 2 diabetes mellitus Glucose checks and sliding scale insulin Continue long-acting insulin Glucose elevation likely exacerbated by underlying infection 05/01: Adjusting sliding scale, continue long-acting Back pain paraspinal muscle tenderness. SHWETHA-resolved On presentation creatinine 1.69 up from a baseline of around 1, has subsequently downtrended to 1.19 DVT ppx: SCDs Charges/Coding Visit Charges Inpatient E&M: 54097 Subs Hosp L2
[2025-05-02 08:57] VITALS: BP 129/77; PULSE 94; RESP 18; TEMP 36.6; O2SAT 98
[2025-05-02] MEDS: 0.9% Saline Lock 10 ML Syringe IV (09:56)
--- NOTE | 2025-05-02 12:52 | PCM.PN.ORT ---
Subjective Subjective Reviewed synovial fluid results. No growth yet on culture. WBC count on synovial fluid 0.920 x 10^3 cells/uL . Septic elbow ruled out, cellulitis at elbow. Elbow ROM improving from prior. Objective Data Objective Data Vital Signs: Vital Signs Temp Pulse Resp BP Pulse Ox O2 Del Method 97.9 F 94 18 129/77 H 98 Room Air 05/02/25 08:57 05/02/25 08:57 05/02/25 08:57 05/02/25 08:57 05/02/25 08:57 05/02/25 08:58 Oxygen Delivery Method Room Air Weight: 253 lb 1.451 oz Body Mass Index (BMI) 33.5 Intake & Output: Intake and Output for Last 24 Hours 04/30/25 05/01/25 05/02/25 23:59 23:59 23:59 Intake Total 1714.75 / 1714.75 1327.25 / 1327.25 1647.75 / 1647.75 Balance 1714.75 / 1714.75 1327.25 / 1327.25 1647.75 / 1647.75 Lab / Micro Data 05/02/25 03:08 05/02/25 03:08 Labs: Laboratory Results - last 24 hr 04/30/25 12:00: Synovial Path Comment Reviewed 05/01/25 16:55: POC Glucose 278 H 05/01/25 18:50: Vancomycin Trough 21.3 H 05/01/25 21:18: POC Glucose 288 H 05/02/25 03:08: WBC 8.1, RBC 3.34 L, Hgb 9.4 L, Hct 28.3 L, MCV 84.7, MCH 28.1, MCHC 33.2, RDW Std Deviation 37.1, RDW Coeff of [place] 12.1, Plt Count 453 H, MPV 9.1, Immature Gran % (Auto) 0.600, Neut % (Auto) 65.5, Lymph % (Auto) 21.3, [place] % (Auto) 8.1, Eos % (Auto) 4.0, Baso % (Auto) 0.5, Absolute Neuts (auto) 5.3, Absolute Lymphs (auto) 1.72, Nucleated RBC % 0, Sodium 135, Potassium 4.3, Chloride 100, Carbon Dioxide 24.4, Anion Gap 10, BUN 20 H, Creatinine 0.99, Estim Creat Clear Calc 131.96, Est GFR (MDRD) Non-Af 99, BUN/Creatinine Ratio 20.4 H, Glucose 156 H, Calcium 9.0, Random Vancomycin 14.8 05/02/25 06:33: POC Glucose 128 H 05/02/25 10:51: POC Glucose 247 H Micro: Microbiology 04/28/25 18:10 Blood Culture (Wb) - Right Hand Blood Culture - Final Staphylococcus aureus 04/29/25 10:43 Wound - Toe Gram Stain - Final 04/29/25 10:43 Wound - Toe Wound Culture - Final Staphylococcus aureus Streptococcus agalactiae (B) 04/30/25 12:00 Fluid - Synovial (joint) Gram Stain - Final 04/30/25 12:00 Fluid - Synovial (joint) Body Fluid Culture - Preliminary No growth-Final to follow 04/28/25 17:41 Blood Culture (Wb) - Anticubital Left Bacteria Detection (PCR) - Final Staphylococcus aureus 04/28/25 17:41 Blood Culture (Wb) - Anticubital Left Blood Culture - Final Staphylococcus aureus 04/29/25 01:30 Urine, Clean Catch Urine Culture - Final Staphylococcus aureus Rhythm Strip Rhythm Strip: Sinus Tach Rate: 138 Ectopy: None Physical Exam Narrative Patient sitting in bed with left upper extremity in a sling and elevation. Examination of the back shows midline paraspinal tenderness to lower lumbar region. Lower extremity shows dressings over the right rose as well as the right second toe. These were not assessed. Neurologic evaluation of lower extremity shows 5 x 5 power. Examination left elbow shows swelling. ROM of elbow near normal. Distal neurovascular exam is intact. Const alert, oriented x3 and no apparent distress Assessment & Plan Assessment/Plan (1) Lumbar discitis: (2) Cellulitis of left elbow: PLAN: Plan Discitis - staph aureus 2/2 acute discitis versus osteomyelitis of the lumbar spine. Outpatient MRI of lumbar spine showed abnormal signal within L4-L5 intervertebral disc and L4-L5 vertebral bodies consistent with acute edema, consistent with discitis. No surgical intervention recommended at this time. Infectious disease on board. Left elbow cellulitis- septic arthritis ruled out. Continue IV antibiotics. Range of motion improving. The patient also continues to have lumbar back pain. Patient says that he really is not having any other pain at the elbow or toe his main pain is at the lower back. Most likely related to the discitis. Continue IV antibiotics, ID consult.
[2025-05-02] MEDS: Ketorolac 30 MG/ML Syringe IV (13:05)
[2025-05-02 14:18] VITALS: BP 150/87; PULSE 100; RESP 18; TEMP 36.8; O2SAT 100
--- NOTE | 2025-05-02 16:06 | PCM.PN.ID ---
Physical Exam Narrative Still back pain, no fever, elbow much improved, no fever Const alert and no apparent distress General Appearance: cooperative Resp normal air movement and clear to auscultation bilaterally Cardio regular rate and regular rhythm GI soft to palpation, non-tender and non-distended Extremity General Extremity: edema Skin no rashes or lesions noted ID ID: Route of nutrition/ use of supplements: [] Nutritional Intake: [] IV Site: [] [place] Catheter: [] Assessment & Plan Assessment/Plan (1) Discitis: (2) Acute kidney injury: (3) Sepsis: PLAN: MSSA bacteremia complicated by lumbar discitis, R toe infection, L elbow infection. Will stop vanc, continue unasyn. Has Cefzil allergy. Will check TTE and repeat bcx. will follow, thank you (4) Type 1 diabetes mellitus with diabetic polyneuropathy: (5) MSSA bacteremia:
[2025-05-02 20:46] VITALS: BP 147/83; PULSE 97; RESP 16; TEMP 36.8; O2SAT 100
[2025-05-02] MEDS: Insulin Glargine-YFGN 100 UNIT/ML Pen 40 UNIT SC (20:57)
[2025-05-03 04:59] VITALS: BP 113/64; PULSE 89; RESP 16; TEMP 36.8; O2SAT 96
[2025-05-03 05:00] VITALS: BMI 33.5
[2025-05-03] MEDS: Ampicillin/Sulbactam 3 GM in 0.9% Normal Saline (100mL MB+) 100 ML IV ×4 (05:02→23:28)
[2025-05-03 06:40] LABS: Hematocrit 26.6 % (40-54); Hemoglobin 8.7 g/dL (13.0-16.5); Immature Granulocytes Count 0.070 X10^3/uL (0.0-0.0); Mean Corp Hgb Conc 32.7 g/dL (32-36); Mean Corpuscular Volume 86.9 fL (80-94); Mean Platelet Vol. 9.2 fl (6.2-12.0); NRBC Flagged by Analyzer 0 % (0-5); Platelet Count 486 K/mm3 (150-450); RBC Distribution Width CV 12.3 % (11.6-14.6); RBC Distribution Width SD 39.5 fl (35.1-43.9); Red Blood Count 3.06 M/mm3 (4.6-6.2); White Blood Count 8.3 K/mm3 (4.4-11.0)
[2025-05-03 07:14] LABS: Anion Gap 9 (5-15); BUN 24 mg/dL (4-19); BUN/Creat Ratio 23.0 RATIO (10-20); Calcium,Total 9.1 mg/dL (7.6-11.0); Carbon Dioxide 25.1 mmol/L (21.0-32.0); Chloride 101 mmol/L (98-108); Estimated Creatinine Clearance 127.70 ml/min (50-250); Glucose 173 mg/dL (70-99); Potassium 4.4 mmol/L (3.3-5.1)
[2025-05-03 08:14] VITALS: BP 120/71; PULSE 80; RESP 16; TEMP 36.7; O2SAT 94
--- NOTE | 2025-05-03 08:20 | PN.HOSP_ITS ---
Reason for Visit
--- NOTE | 2025-05-03 08:20 | PCM.PN.HOSP ---
Reason for Visit Chief Complaint: back pain Subjective Subjective Concerned about his blood sugars. States that he at home takes 1 unit of insulin per 8 carbs. Objective Data Objective Data Vital Signs: Vital Signs Temp Pulse Resp BP Pulse Ox O2 Del Method 36.7 C 80 16 120/71 94 Room Air 05/03/25 08:14 05/03/25 08:14 05/03/25 08:14 05/03/25 08:14 05/03/25 08:14 05/03/25 08:15 Oxygen Delivery Method Room Air Weight: 114.6 kg Body Mass Index (BMI) 33.5 Intake & Output: Intake and Output for Last 24 Hours 05/01/25 05/02/25 05/03/25 23:59 23:59 23:59 Intake Total 1327.25 / 1327.25 3047.75 / 3047.75 600 / 600 Balance 1327.25 / 1327.25 3047.75 / 3047.75 600 / 600 Lab / Micro Data 05/03/25 06:24 05/03/25 06:24 Labs: Laboratory Results - last 24 hr 04/30/25 12:00: Synovial Path Comment Reviewed 05/02/25 10:51: POC Glucose 247 H 05/02/25 16:08: POC Glucose 315 H 05/02/25 19:40: POC Glucose 385 H 05/03/25 05:06: POC Glucose 184 H 05/03/25 06:24: WBC 8.3, RBC 3.06 L, Hgb 8.7 L, Hct 26.6 L, MCV 86.9, MCH 28.4, MCHC 32.7, RDW Std Deviation 39.5, RDW Coeff of Sharon 12.3, Plt Count 486 H, MPV 9.2, Immature Gran % (Auto) 0.800, Neut % (Auto) 68.1, Lymph % (Auto) 17.5 L, [place] % (Auto) 9.1, Eos % (Auto) 3.9, Baso % (Auto) 0.6, Absolute Neuts (auto) 5.6, Absolute Lymphs (auto) 1.45, Nucleated RBC % 0, Sodium 135, Potassium 4.4, Chloride 101, Carbon Dioxide 25.1, Anion Gap 9, BUN 24 H, Creatinine 1.02, Estim Creat Clear Calc 127.70, Est GFR (MDRD) Non-Af 95, BUN/Creatinine Ratio 23.0 H, Glucose 173 H, Calcium 9.1 Micro: Microbiology 04/30/25 12:00 Fluid - Synovial (joint) Gram Stain - Final 04/30/25 12:00 Fluid - Synovial (joint) Body Fluid Culture - Preliminary No growth-Final to follow 04/30/25 12:00 Fluid - Synovial (joint) Anaerobic Culture - Preliminary No growth in 48 hours. 04/28/25 18:10 Blood Culture (Wb) - Right Hand Blood Culture - Final Staphylococcus aureus 04/29/25 10:43 Wound - Toe Gram Stain - Final 04/29/25 10:43 Wound - Toe Wound Culture - Final Staphylococcus aureus Streptococcus agalactiae (B) 04/28/25 17:41 Blood Culture (Wb) - Anticubital Left Bacteria Detection (PCR) - Final Staphylococcus aureus 04/28/25 17:41 Blood Culture (Wb) - Anticubital Left Blood Culture - Final Staphylococcus aureus 04/29/25 01:30 Urine, Clean Catch Urine Culture - Final Staphylococcus aureus Radiography Diagnostic Testing: Radiology Impression Echocardiogram 05/01/25 15:18 Interpretation Summary Normal LV size. Mild concentric left ventricular hypertrophy. Left ventricular systolic function is normal. The left ventricular ejection fraction is 65 %. Ordering Physician: Park Zamora Referring Physician: JOSH GANT Performed By: Maddi Almodovar RCS Rhythm Strip Rhythm Strip: Sinus Tach Rate: 138 Ectopy: None Physical Exam Const alert and no apparent distress HEENT head/scalp atraumatic Head and Scalp: normocephalic Resp normal respiratory effort and no retractions GI non-distended Neuro Sensorium / Orientation: awake and alert Speech: speech normal Assessment & Plan Assessment/Plan (1) Sepsis: PLAN: Plan Sepsis secondary POA. Refer to H+P for criteria. 2/2 diskitis, left elbow cellulitis and right 2nd toe infection. Bacteremia likely 2/2 wound which likely led to diskitis S. aureus follow up cultures from the so far negative. Repeat blood cultures performed today pending. Echo shows an EF 65%. on amp/sb Diskitis to staph aureus 2/2 acute discitis versus osteomyelitis of the lumbar spine Outpatient MRI of lumbar spine showed abnormal signal within L4-L5 intervertebral disc and L4-L5 vertebral bodies consistent with acute edema with extension into the left paravertebral soft tissues and psoas muscle at L4-L5 as well as displacement of L4 nerve root so patient came to the ED Spine surgery consulted-no present acute surgical indication Infectious disease consulted 2 of 2 blood cultures positive thus far for gram-positive cocci in clusters, first blood culture growing Staph aureus 05/01: Given both blood cultures growing Staph aureus echo ordered, repeat cultures ordered to see if this is clearing, ID on consult, orthospine on consult Left elbow cellulitis septic arthritis ruled out. Ortho and ID on consult Broad-spectrum antibiotics Left upper extremity CT with soft tissue swelling but no effusion however given limited range of motion and pain Ortho with plan to attempt to aspirate joint as patient would need to OR if any evidence of infection Right second toe infection Podiatry consulted Debrided at bedside Patient on antibiotics, ID also on consult 05/01: Toe growing Staph aureus and strep B, ID following, patient remains on vancomycin and Unasyn, further culture and sensitivity data pending Type 2 diabetes mellitus Glucose checks and sliding scale insulin Continue long-acting insulin Glucose elevation likely exacerbated by underlying infection 05/01: Adjusting sliding scale, continue long-acting Back pain paraspinal muscle tenderness. SHWETHA-resolved On presentation creatinine 1.69 up from a baseline of around 1, has subsequently downtrended to 1.19 DVT ppx: SCDs Charges/Coding Visit Charges Inpatient E&M: 86498 Subs Hosp L2
--- NOTE | 2025-05-03 10:15 | RAD_ITS ---
PROCEDURE: RAD/Toe(s) Min 2 Views
--- NOTE | 2025-05-03 12:30 | CASEMGMT ---
Addendum entered by Cookie Dominguez 05/03/25 15:26: [facility] has declined referral. TC to Birdie at [facility] to confirm if they take pt insurance, she states they do. Referral made, will await decision to accept. Addendum entered by Cookie Dominguez 05/03/25 15:14: [facility] has declined pt, referral sent to [facility] at this time. Addendum entered by Cookie Dominguez 05/03/25 15:05: [facility] declined referral. Referral sent to [facility] at this time via [facility]. Addendum entered by Cookie Dominguez 05/03/25 14:39: [facility] declined pt, referral sent to [facility] via [facility]. Addendum entered by Cookie Dominguez 05/03/25 14:16: Referral sent to [facility] and [facility] at this time via [facility]port. Original Note: ANNIA WRIGHT into pt room, pt states he is aware that he most likely will need IV atb at home. Pt states he will try to learn pending his ROM but his will also learn. Discussed options with pt and he would like [facility] to come in. Pt is aware that a list of [facility] providers including quality and resource use data and consistent with the patient?s preferred geographic region, medical needs, and insurance network were provided from the [facility] Guide will be given to him with the request for him to select his top 3 choices. Pt states that he does not need a list. He states he would like to go in order of highest rated agencies who take his insurance. He states he has nothing to compare the agencies to and does not know anyone who has had C. Requested dc title i assistant to create list. Discussed infusion companies and provided options, pt chose [facility]. ANNIA WRIGHT to follow.
--- NOTE | 2025-05-03 12:52 | CASEMGMT ---
Discharge Planning A list of SNF providers including quality and resource use data and consistent with the patient's preferred geographic region, medical needs, and insurance network was created in [facility] Guide.? Sona Benjamin, Discharge Planning Asst.
--- NOTE | 2025-05-03 14:08 | PCM.PN.ID ---
Physical Exam Narrative No fever, still unchanged back pain, no n/v/d. Const alert and no apparent distress General Appearance: cooperative Resp normal air movement and clear to auscultation bilaterally Cardio regular rate and regular rhythm GI soft to palpation, non-tender and non-distended Skin no rashes or lesions noted ID ID: Route of nutrition/ use of supplements: [] Nutritional Intake: [] IV Site: [] Obando Catheter: [] Assessment & Plan Assessment/Plan (1) Discitis: (2) Acute kidney injury: (3) Sepsis: PLAN: MSSA bacteremia complicated by lumbar discitis, R toe infection, L elbow infection. Will continue unasyn. Has Cefzil allergy. No veg seen on TTE and will repeat bcx. will follow (4) Type 1 diabetes mellitus with diabetic polyneuropathy: (5) MSSA bacteremia:
[2025-05-03 14:13] VITALS: BP 137/80; PULSE 99; RESP 17; TEMP 36.8; O2SAT 100
[2025-05-03] MEDS: Insulin Glargine-YFGN 100 UNIT/ML Pen 40 UNIT SC (20:52)
[2025-05-03] MEDS: Ketorolac 30 MG/ML Syringe IV (20:58)
[2025-05-03 21:28] VITALS: BP 136/95; PULSE 105; RESP 16; TEMP 36.6; O2SAT 98
[2025-05-03 23:56] VITALS: BP 134/78; PULSE 93; RESP 16; TEMP 36.6; O2SAT 99
[2025-05-04 04:07] VITALS: BP 144/85; PULSE 84; RESP 16; TEMP 36.4; O2SAT 98
[2025-05-04 05:13] VITALS: BMI 33.6
[2025-05-04] MEDS: Ampicillin/Sulbactam 3 GM in 0.9% Normal Saline (100mL MB+) 100 ML IV ×3 (05:54→17:19)
--- NOTE | 2025-05-04 08:00 | PN.HOSP_ITS ---
Reason for Visit
--- NOTE | 2025-05-04 08:00 | PCM.PN.HOSP ---
Reason for Visit Chief Complaint: back pain Subjective Subjective Constipated. Complaining of right flank pain, worse with flexion of right hip. Objective Data Objective Data Vital Signs: Vital Signs Temp Pulse Resp BP Pulse Ox O2 Del Method 36.4 C L 84 16 144/85 H 98 Room Air 05/04/25 04:07 05/04/25 04:07 05/04/25 04:07 05/04/25 04:07 05/04/25 04:07 05/04/25 04:07 Oxygen Delivery Method Room Air Weight: 115.2 kg Body Mass Index (BMI) 33.6 Intake & Output: Intake and Output for Last 24 Hours 05/02/25 05/03/25 05/04/25 23:59 23:59 23:59 Intake Total 3047.75 / 3047.75 1400 / 1400 600 / 600 Balance 3047.75 / 3047.75 1400 / 1400 600 / 600 Lab / Micro Data 05/03/25 06:24 05/03/25 06:24 Labs: Laboratory Results - last 24 hr 05/03/25 11:14: POC Glucose 162 H 05/03/25 16:00: POC Glucose 187 H 05/03/25 20:51: POC Glucose 262 H Micro: Microbiology 05/01/25 15:38 Blood Culture (Wb) - Right Hand Blood Culture - Preliminary No growth in 48 hours. 05/01/25 15:34 Blood Culture (Wb) - Anticubital Right Blood Culture - Preliminary No growth in 48 hours. 04/30/25 12:00 Fluid - Synovial (joint) Gram Stain - Final 04/30/25 12:00 Fluid - Synovial (joint) Body Fluid Culture - Preliminary No growth-Final to follow 04/30/25 12:00 Fluid - Synovial (joint) Anaerobic Culture - Preliminary No growth in 48 hours. 04/28/25 18:10 Blood Culture (Wb) - Right Hand Blood Culture - Final Staphylococcus aureus 04/29/25 10:43 Wound - Toe Gram Stain - Final 04/29/25 10:43 Wound - Toe Wound Culture - Final Staphylococcus aureus Streptococcus agalactiae (B) 04/28/25 17:41 Blood Culture (Wb) - Anticubital Left Bacteria Detection (PCR) - Final Staphylococcus aureus 04/28/25 17:41 Blood Culture (Wb) - Anticubital Left Blood Culture - Final Staphylococcus aureus 04/29/25 01:30 Urine, Clean Catch Urine Culture - Final Staphylococcus aureus Radiography Diagnostic Testing: Radiology Impression Toe X-Ray 05/03/25 10:15 IMPRESSION: 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 Previous amputation of the distal portion of the 4th metatarsal bone, with satisfactory alignment seen. [id number] degenerative changes are seen of the 1st interphalangeal joint and at least mild degenerative changes of the 1st metatarsophalangeal joint. No significant hallux valgus is seen. No acute fracture or dislocation is noted. No soft tissue gas is seen. No osseous destructive change is seen to suggest the presence of osteomyelitis. Further imaging if and as clinically appropriate. Reading Location: [address] Rhythm Strip Rhythm Strip: Sinus Tach Rate: 138 Ectopy: None Physical Exam Const alert and no apparent distress Resp normal respiratory effort and no retractions GI GI Narrative: right lateral oblique tenderness. Neuro Sensorium / Orientation: awake and alert Assessment & Plan Assessment/Plan (1) Sepsis: PLAN: Plan Sepsis secondary POA. Refer to H+P for criteria. 2/2 diskitis, left elbow cellulitis and right 2nd toe infection. Bacteremia likely 2/2 wound which likely led to diskitis S. aureus follow up cultures from the so far negative. Repeat blood cultures performed today pending. Echo shows an EF 65%. on amp/sb Diskitis to staph aureus 2/2 acute discitis versus osteomyelitis of the lumbar spine Outpatient MRI of lumbar spine showed abnormal signal within L4-L5 intervertebral disc and L4-L5 vertebral bodies consistent with acute edema with extension into the left paravertebral soft tissues and psoas muscle at L4-L5 as well as displacement of L4 nerve root so patient came to the ED Spine surgery consulted-no present acute surgical indication Infectious disease consulted 2 of 2 blood cultures positive thus far for gram-positive cocci in clusters, first blood culture growing Staph aureus 05/01 blood cultures negative. Repeat blood cultures on the pending. Left elbow cellulitis septic arthritis ruled out. Ortho and ID on consult Broad-spectrum antibiotics Left upper extremity CT with soft tissue swelling but no effusion however given limited range of motion and pain Ortho with plan to attempt to aspirate joint as patient would need to OR if any evidence of infection Right second toe infection Podiatry consulted Debrided at bedside Patient on antibiotics, ID also on consult 05/01: Toe growing Staph aureus and strep B, ID following, patient remains on vancomycin and Unasyn, further culture and sensitivity data pending Type 2 diabetes mellitus Glucose checks and sliding scale insulin Continue long-acting insulin Glucose elevation likely exacerbated by underlying infection continue glarine, adjusting prandial insulin based on his carbs. Continue SSI. Back pain paraspinal muscle tenderness. Right oblique strain add lidoderm patch. continue zanaflex. encouraged increased activity. SHWETHA-resolved On presentation creatinine 1.69 up from a baseline of around 1, has subsequently downtrended to 1.19 DVT ppx: SCDs Charges/Coding Visit Charges Inpatient E&M: 38185 Subs Hosp L2
[2025-05-04 09:00] VITALS: BP 149/89; PULSE 105; RESP 17; TEMP 36.7; O2SAT 97
[2025-05-04] MEDS: Polyethylene Glycol 3350 17 GM PACKET PO (10:01)
--- NOTE | 2025-05-04 10:21 | CASEMGMT ---
Addendum entered by Cookie Dominguez 05/04/25 14:28: RN KYLE into pt room, pt aware that [facility] will start Friday morning. Pt states he will arrange for his to be present for visit. Addendum entered by Cookie Dominguez 05/04/25 13:56: Received IV rx from ID. Sent rx to [facility] and [facility] via [facility] at this time. Per hospitalist, pt to dc tomorrow. Original Note: OMID Packer at [facility], they are able to accept pt for services. Updated pt.
[2025-05-04] MEDS: Lidocaine 5% Patch 1 PATCH TOPICAL (10:47)
[2025-05-04 14:40] VITALS: BP 117/80; PULSE 91; RESP 17; TEMP 36.4; O2SAT 97
--- NOTE | 2025-05-04 16:28 | PCM.PN.ID ---
Physical Exam Narrative Feeling better, less back pain, no fever Const alert and no apparent distress General Appearance: cooperative Resp normal air movement and clear to auscultation bilaterally Cardio regular rate and regular rhythm GI soft to palpation, non-tender and non-distended Skin no rashes or lesions noted ID ID: Route of nutrition/ use of supplements: [] Nutritional Intake: [] IV Site: [] Obando Catheter: [] Assessment & Plan Assessment/Plan (1) Discitis: (2) Acute kidney injury: (3) Sepsis: PLAN: MSSA bacteremia complicated by lumbar discitis, R toe infection, L elbow infection. Will continue unasyn. Has Cefzil allergy. No veg seen on TTE. Bcx have cleared. Plan on 6 weeks iv abx, will order picc. Will write for oxacillin 12gm q24h continuous infusion, stop date 06/12/25 with weekly labs. Nafcillin would be another option. D/w [facility] case[facility] specialist and pharmacy. ID followup in 2 weeks. will follow (4) Type 1 diabetes mellitus with diabetic polyneuropathy: (5) MSSA bacteremia:
[2025-05-04] MEDS: Insulin Glargine-YFGN 100 UNIT/ML Pen 40 UNIT SC (21:57)
[2025-05-04] MEDS: Ketorolac 30 MG/ML Syringe IV (22:10)
[2025-05-04] MEDS: 0.9% Saline Lock 10 ML Syringe IV (22:10)
[2025-05-04 22:21] VITALS: BP 133/69; PULSE 97; RESP 16; TEMP 36.6; O2SAT 97
[2025-05-05] MEDS: Ampicillin/Sulbactam 3 GM in 0.9% Normal Saline (100mL MB+) 100 ML IV ×2 (00:42→06:03)
[2025-05-05 06:00] VITALS: BMI 34.0
[2025-05-05 06:25] LABS: Hematocrit 29.9 % (40-54); Hemoglobin 9.8 g/dL (13.0-16.5); Immature Granulocytes Count 0.150 X10^3/uL (0.0-0.0); Mean Corp Hgb Conc 32.8 g/dL (32-36); Mean Corpuscular Volume 86.2 fL (80-94); Mean Platelet Vol. 9.1 fl (6.2-12.0); NRBC Flagged by Analyzer 0 % (0-5); Platelet Count 569 K/mm3 (150-450); RBC Distribution Width CV 12.3 % (11.6-14.6); RBC Distribution Width SD 38.7 fl (35.1-43.9); Red Blood Count 3.47 M/mm3 (4.6-6.2); White Blood Count 9.8 K/mm3 (4.4-11.0)
[2025-05-05 06:55] LABS: Anion Gap 11 (5-15); BUN 26 mg/dL (4-19); BUN/Creat Ratio 23.8 RATIO (10-20); Calcium,Total 9.1 mg/dL (7.6-11.0); Carbon Dioxide 23.0 mmol/L (21.0-32.0); Chloride 99 mmol/L (98-108); Estimated Creatinine Clearance 117.64 ml/min (50-250); Glucose 250 mg/dL (70-99); Potassium 4.5 mmol/L (3.3-5.1)
[2025-05-05] MEDS: Polyethylene Glycol 3350 17 GM PACKET PO (07:58)
[2025-05-05 08:19] VITALS: BP 129/81; PULSE 87; RESP 16; TEMP 36.4; O2SAT 99
--- NOTE | 2025-05-05 08:33 | PN.HOSP_ITS ---
Reason for Visit
--- NOTE | 2025-05-05 08:33 | PCM.PN.HOSP ---
Reason for Visit Chief Complaint: back pain Subjective Subjective Feeling well. No new events. Objective Data Objective Data Vital Signs: Vital Signs Temp Pulse Resp BP Pulse Ox O2 Del Method 36.4 C L 87 16 129/81 H 99 Room Air 05/05/25 08:19 05/05/25 08:19 05/05/25 08:19 05/05/25 08:19 05/05/25 08:19 05/05/25 08:19 Oxygen Delivery Method Room Air Weight: 116.6 kg Body Mass Index (BMI) 34.0 Intake & Output: Intake and Output for Last 24 Hours 05/03/25 05/04/25 05/05/25 23:59 23:59 23:59 Intake Total 1400 / 1400 900 / 900 200 / 200 Balance 1400 / 1400 900 / 900 200 / 200 Lab / Micro Data 05/05/25 05:52 05/05/25 05:52 Labs: Laboratory Results - last 24 hr 05/04/25 08:42: POC Glucose 204 H 05/04/25 10:46: POC Glucose 280 H 05/04/25 16:02: POC Glucose 205 H 05/04/25 21:53: POC Glucose 224 H 05/05/25 05:52: WBC 9.8, RBC 3.47 L, Hgb 9.8 L, Hct 29.9 L, MCV 86.2, MCH 28.2, MCHC 32.8, RDW Std Deviation 38.7, RDW Coeff of Sharon 12.3, Plt Count 569 H, MPV 9.1, Immature Gran % (Auto) 1.500 H, Neut % (Auto) 63.0, Lymph % (Auto) 22.4, [place] % (Auto) 9.2, Eos % (Auto) 3.2, Baso % (Auto) 0.7, Absolute Neuts (auto) 6.1, Absolute Lymphs (auto) 2.18, Nucleated RBC % 0, Sodium 134, Potassium 4.5, Chloride 99, Carbon Dioxide 23.0, Anion Gap 11, BUN 26 H, Creatinine 1.11, Estim Creat Clear Calc 117.64, Est GFR (MDRD) Non-Af 86, BUN/Creatinine Ratio 23.8 H, Glucose 250 H, Calcium 9.1 05/05/25 07:54: POC Glucose 276 H Micro: Microbiology 04/30/25 12:00 Fluid - Synovial (joint) Gram Stain - Final 04/30/25 12:00 Fluid - Synovial (joint) Body Fluid Culture - Final Culture exhibits no growth. 04/30/25 12:00 Fluid - Synovial (joint) Anaerobic Culture - Preliminary No growth in 48 hours. 05/01/25 15:38 Blood Culture (Wb) - Right Hand Blood Culture - Preliminary No growth in 48 hours. 05/01/25 15:34 Blood Culture (Wb) - Anticubital Right Blood Culture - Preliminary No growth in 48 hours. 04/28/25 18:10 Blood Culture (Wb) - Right Hand Blood Culture - Final Staphylococcus aureus 04/29/25 10:43 Wound - Toe Gram Stain - Final 04/29/25 10:43 Wound - Toe Wound Culture - Final Staphylococcus aureus Streptococcus agalactiae (B) 04/28/25 17:41 Blood Culture (Wb) - Anticubital Left Bacteria Detection (PCR) - Final Staphylococcus aureus 04/28/25 17:41 Blood Culture (Wb) - Anticubital Left Blood Culture - Final Staphylococcus aureus 04/29/25 01:30 Urine, Clean Catch Urine Culture - Final Staphylococcus aureus Rhythm Strip Rhythm Strip: Sinus Tach Rate: 138 Ectopy: None Physical Exam Const alert and no apparent distress HEENT head/scalp atraumatic and moist oral mucous membranes Resp normal respiratory effort and no retractions Cardio regular rate, regular rhythm, S1 normal heart sound and S2 normal heart sound GI normal to inspection, nondistended, normoactive bowel sounds, soft to palpation, non-tender and non-distended Extremity normal to inspection Neuro Sensorium / Orientation: awake and alert Assessment & Plan Assessment/Plan (1) Sepsis: PLAN: Plan Sepsis secondary POA. Refer to H+P for criteria. 2/2 diskitis, left elbow cellulitis and right 2nd toe infection. Bacteremia likely 2/2 wound which likely led to diskitis S. aureus follow up cultures from the so far negative. Repeat blood cultures performed today pending. Echo shows an EF 65%. on amp/sb. Plan for oxacilin for 6 weeks. Diskitis to staph aureus 2/2 acute discitis versus osteomyelitis of the lumbar spine Outpatient MRI of lumbar spine showed abnormal signal within L4-L5 intervertebral disc and L4-L5 vertebral bodies consistent with acute edema with extension into the left paravertebral soft tissues and psoas muscle at L4-L5 as well as displacement of L4 nerve root so patient came to the ED Spine surgery consulted-no present acute surgical indication Infectious disease consulted 2 of 2 blood cultures positive thus far for gram-positive cocci in clusters, first blood culture growing Staph aureus 05/01 blood cultures negative. Repeat blood cultures on the pending. Left elbow cellulitis septic arthritis ruled out. Ortho and ID on consult Broad-spectrum antibiotics Left upper extremity CT with soft tissue swelling but no effusion however given limited range of motion and pain Ortho with plan to attempt to aspirate joint as patient would need to OR if any evidence of infection Right second toe infection Podiatry consulted Debrided at bedside Patient on antibiotics, ID also on consult 05/01: Toe growing Staph aureus and strep B, ID following, patient remains on vancomycin and Unasyn, further culture and sensitivity data pending Type 2 diabetes mellitus Glucose checks and sliding scale insulin Continue long-acting insulin Glucose elevation likely exacerbated by underlying infection continue glarine, adjusting prandial insulin based on his carbs. Continue SSI. Back pain paraspinal muscle tenderness. Right oblique strain add lidoderm patch. continue zanaflex. encouraged increased activity. SHWETHA-resolved On presentation creatinine 1.69 up from a baseline of around 1, has subsequently downtrended DVT ppx: SCDs
--- NOTE | 2025-05-05 09:03 | CASEMGMT ---
Addendum entered by Cookie Dominguez 05/05/25 14:21: Pt nurse aware that pt may dc after 3pm dose of IV atb. Addendum entered by Cookie Dominguez 05/05/25 14:18: Received confirmation from ID that pt may dc after 3pm dose. Updated pt. C aware pt is being dc'd. Addendum entered by Cookie Dominguez 05/05/25 14:03: PICC insertion, DC summary sent to I via [employer]. Original Note: Received [place] form from [facility], signed and faxed back to [facility]. RN CM into pt room, answered pt questions at this time and explained delivery of med and expectations of HHC. Pt denies any further needs at this time.
[2025-05-05 11:00] VITALS: BP 131/84; PULSE 97; RESP 16; TEMP 36.4; O2SAT 100
[2025-05-05] MEDS: NORMAL SALINE 0.9% IV ×2 (11:09→15:22)
[2025-05-05] MEDS: NAFCILLIN IV ×2 (11:09→15:22)
--- NOTE | 2025-05-05 13:14 | PCM.DC.SUM ---
Providers Date of Admission: 04/28/25 Primary Care Physician: Dr. Maggie Meier MD Consultations 04/28/25 22:04 Consult: Orthopedics Routine Consulting Provider: Gabriele Tafoya Reason for Consult: lumbar discitis EMERGENT Consult: No MD Notified: Yes Date Notified: 04/28/25 Time Notified: 21:28 Method of Notification: ED Physician Initiated Consult: Podiatry Routine Consulting Provider: Aminah Ann Reason for Consult: infected right second toe EMERGENT Consult: No MD Notified: Yes Date Notified: 04/28/25 Time Notified: 09:16 Method of Notification: Verbal 04/29/25 02:05 Consult: Corporate Development Intern / Pulmonary Medicine Routine Consulting Provider: Intensivists/Pulmonary Med Reason for Consult: sepsis due to discitis EMERGENT Consult: No Notified: No Date Notified: 04/29/25 Time Notified: 02:05 04/29/25 07:17 Consult: Infectious Disease Routine Consulting Provider: Deangelo Arroyo Reason for Consult: discitis EMERGENT Consult: No Notified: Yes Date Notified: 04/29/25 Time Notified: 07:17 Method of Notification: Text 04/29/25 07:38 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 Refer to H+P for criteria. 2/2 diskitis, left elbow cellulitis and right 2nd toe infection. Bacteremia likely 2/2 wound which likely led to diskitis S. aureus follow up cultures from the so far negative. Repeat blood cultures performed today pending. Echo shows an EF 65%. on amp/sb. Plan for oxacilin for 6 weeks. Diskitis to staph aureus 2/2 acute discitis versus osteomyelitis of the lumbar spine Outpatient MRI of lumbar spine showed abnormal signal within L4-L5 intervertebral disc and L4-L5 vertebral bodies consistent with acute edema with extension into the left paravertebral soft tissues and psoas muscle at L4-L5 as well as displacement of L4 nerve root so patient came to the ED Spine surgery consulted-no present acute surgical indication Infectious disease consulted 2 of 2 blood cultures positive thus far for gram-positive cocci in clusters, first blood culture growing Staph aureus 05/01 blood cultures negative. Repeat blood cultures on the pending. Left elbow cellulitis septic arthritis ruled out. Ortho and ID on consult Broad-spectrum antibiotics Left upper extremity CT with soft tissue swelling but no effusion however given limited range of motion and pain Ortho with plan to attempt to aspirate joint as patient would need to OR if any evidence of infection Right second toe infection Podiatry consulted Debrided at bedside Patient on antibiotics, ID also on consult 05/01: Toe growing Staph aureus and strep B, ID following, patient remains on vancomycin and Unasyn, further culture and sensitivity data pending Type 2 diabetes mellitus Glucose checks and sliding scale insulin Continue long-acting insulin Glucose elevation likely exacerbated by underlying infection continue glarine, adjusting prandial insulin based on his carbs. Continue SSI. Back pain paraspinal muscle tenderness. Right oblique strain add lidoderm patch. continue zanaflex. encouraged increased activity. SHWETHA-resolved On presentation creatinine 1.69 up from a baseline of around 1, has subsequently downtrended DVT ppx: SCDs Medications at Discharge Home Medications blood sugar diagnostic (FreeStyle Lite Strips) #150 ea 10/05/21 lancets 28 gauge (FreeStyle Lancets) #150 ea 09/06/22 blood sugar diagnostic (True Metrix Glucose Test Strip) #100 ea 09/13/24 pen needle, diabetic 32 gauge x 5/32 (BD Ultra-Fine Amy Pen Needle) #200 ea 10/12/24 insulin glargine 100 unit/mL (3 mL) subcutaneous pen (Lantus Solostar U-100 Insulin) 40 unit (0.4 mL) subcut QHS #15 mL 03/11/25 meloxicam 15 mg tablet 15 mg PO QDAY #30 tabs 04/19/25 tizanidine 6 mg capsule 6 mg PO TID PRN muscle spasticity #30 caps 04/19/25 acetaminophen 500 mg tablet (Acetaminophen Extra Strength) 1,000 mg PO Q6H PRN back pain 04/28/25 fenofibrate nanocrystallized 145 mg tablet 145 mg PO DAILY 04/28/25 insulin aspart U-100 100 unit/mL (3 mL) subcutaneous pen (Novolog FlexPen U-100 Insulin aspart) See Protocol subcut TID 04/28/25 oxacillin 2 gram/50 mL in dextrose (iso-osmotic) intravenous piggyback 12 g (300 mL) IV Q24H 39 days 05/04/25 blood-glucose sensor (FreeStyle Monse 3 Plus Sensor device) #6 ea 05/05/25 oxycodone 5 mg tablet 5 mg PO Q6H PRN PRN Pain Score 4-10 3 days #12 tabs 05/05/25 Hospital Course Operations None Procedures PICC line placement Summary of Care Provided Hospital Course: Patient presents with sepsis secondary to Staph aureus bacteremia with subsequent discitis, left elbow cellulitis. Patient will be discharged with oxacillin for 6 weeks. PICC line was placed. Weight / BMI Weight Weight: 116.6 kg Body Mass Index (BMI) 34.0 ABG / Lab / Microbiology Data 05/05/25 05:52 05/05/25 05:52 Laboratory: Laboratory Results - last 24 hr 05/04/25 16:02: POC Glucose 205 H 05/04/25 21:53: POC Glucose 224 H 05/05/25 05:52: WBC 9.8, RBC 3.47 L, Hgb 9.8 L, Hct 29.9 L, MCV 86.2, MCH 28.2, MCHC 32.8, RDW Std Deviation 38.7, RDW Coeff of [place] 12.3, Plt Count 569 H, MPV 9.1, Immature Gran % (Auto) 1.500 H, Neut % (Auto) 63.0, Lymph % (Auto) 22.4, [place] % (Auto) 9.2, Eos % (Auto) 3.2, Baso % (Auto) 0.7, Absolute Neuts (auto) 6.1, Absolute Lymphs (auto) 2.18, Nucleated RBC % 0, Sodium 134, Potassium 4.5, Chloride 99, Carbon Dioxide 23.0, Anion Gap 11, BUN 26 H, Creatinine 1.11, Estim Creat Clear Calc 117.64, Est GFR (MDRD) Non-Af 86, BUN/Creatinine Ratio 23.8 H, Glucose 250 H, Calcium 9.1 05/05/25 07:54: POC Glucose 276 H 05/05/25 11:06: POC Glucose 277 H Microbiology: Microbiology 04/30/25 12:00 Fluid - Synovial (joint) Gram Stain - Final 04/30/25 12:00 Fluid - Synovial (joint) Body Fluid Culture - Final Culture exhibits no growth. 04/30/25 12:00 Fluid - Synovial (joint) Anaerobic Culture - Final No anaerobic bacteria isolated. 05/01/25 15:38 Blood Culture (Wb) - Right Hand Blood Culture - Preliminary No growth in 48 hours. 05/01/25 15:34 Blood Culture (Wb) - Anticubital Right Blood Culture - Preliminary No growth in 48 hours. 04/28/25 18:10 Blood Culture (Wb) - Right Hand Blood Culture - Final Staphylococcus aureus 04/29/25 10:43 Wound - Toe Gram Stain - Final 04/29/25 10:43 Wound - Toe Wound Culture - Final Staphylococcus aureus Streptococcus agalactiae (B) 04/28/25 17:41 Blood Culture (Wb) - Anticubital Left Bacteria Detection (PCR) - Final Staphylococcus aureus 04/28/25 17:41 Blood Culture (Wb) - Anticubital Left Blood Culture - Final Staphylococcus aureus 04/29/25 01:30 Urine, Clean Catch Urine Culture - Final Staphylococcus aureus D/C Instructions DC O2, CPAP, BIPAP Needs Home O2 Discharge instructions: No Meaningful Use Info Meaningful Use Meaningful Use Diagnoses (Choose all that apply): None applicable Discharge Plan Admission Admit Date/Time: 04/28/25 20:25 Primary Reason for Your Visit: Bacteremia. Discitis. Attending Provider: Khadar Casey Primary Care Provider: Magige Meier Consulting Providers: Kristin Hernandes; Deangelo Arroyo; Gabriele Tafoya; Aminah Ann; Jim Burger; Park Zamora Discharge Orders/Prescriptions Prescriptions: New oxacillin in dextrose(iso-osm) 2 gram/50 mL piggyback 12 g IV Q24H 39 Days Rx Instructions: stop date 06/12/25. Dx: mssa discitis. 12gm iv oxacillin given as continuous infusion q24h. Weekly bmp, cbc, and LFT. Fax to [phone]. Routine picc care per protocol. oxycodone 5 mg Tablet 5 mg PO Q6H PRN PRN (Reason: Pain Score 4-10) 3 Days Qty: 12 0RF Continued (DME) FreeStyle Lite Strips Strip See Rx Instructions .ROUTE .MEDSUPPLY Qty: 150 6RF Rx Instructions: 5 times daily (DME) lancets [FreeStyle Lancets] 28 gauge misc See Rx Instructions .ROUTE .MEDSUPPLY Qty: 150 6RF Rx Instructions: 5 times daily insulin glargine [Lantus Solostar U-100 Insulin] 100 unit/mL (3 mL) insulin pen 40 unit SC QHS Qty: 15 6RF tizanidine 6 mg capsule 6 mg PO TID PRN (Reason: muscle spasticity) Qty: 30 0RF meloxicam 15 mg tablet 15 mg PO QDAY Qty: 30 0RF fenofibrate nanocrystallized 145 mg tablet 145 mg PO DAILY insulin aspart U-100 [Novolog FlexPen U-100 Insulin] 100 unit/mL (3 mL) insulin pen See Protocol SC TID Protocol: 6. Sliding Scale Insulin Custom Condition: 1 Dose/Route: Number of Units Instruction: FOR EVERY 8 CARBS CONSUMED Protocol Text: Custom Sliding Scale acetaminophen [Acetaminophen Extra Strength] 500 mg tablet 1,000 mg PO Q6H PRN (Reason: back pain) Patient Comments: PT STATES HE TAKES 1000MG IN THE MORNING AND BEFORE BED (DME) True Metrix Glucose Test Strip Strip See Rx Instructions .Route Qty: 100 4RF Rx Instructions: As directed (DME) pen needle, diabetic [BD Ultra-Fine Amy Pen Needle] 32 gauge x 5/32 needle See Rx Instructions .ROUTE .MEDSUPPLY Qty: 200 6RF Rx Instructions: 6 times daily (DME) FreeStyle Monse 3 Plus Sensor Device See Rx Instructions .Route Qty: 6 1RF Rx Instructions: As directed Referrals / Follow Up: Maggie Meier MD [Primary Care Provider, Internal Medicine] Deangelo Arroyo MD [Med Staff - Active Staff, Infectious Disease] - Within 2 Weeks Disposition Disposition (needs filled in before D/C Order can be placed): Home, Self Care Charges/Coding Visit Charges Inpatient E&M: 23365 Disch Hosp
[2025-05-05 14:58] VITALS: BP 105/78; PULSE 109; RESP 16; TEMP 36.6; O2SAT 100
--- NOTE | 2025-05-05 16:14 | PHA.DC_ITS ---
Pharmacy DC Med Counseling
--- NOTE | 2025-05-05 16:14 | PHA.DC.COU.R ---
Pharmacy [facility] Counseling Pharmacy Services has performed discharge medication counseling for this patient. The patient was counseled on the following discharge medications and changes in medications for homegoing review. - Oxacillin for injection, Oxycodone 5 mg tablet The Reason for Use, instructions for use, and potential side effects were reviewed for all new medications. The patient's questions regarding all of their medications were answered. The patient was able to verbally demonstrate an understanding of their discharge medications. Medications at Discharge Home Medications blood sugar diagnostic (FreeStyle Lite Strips) #150 ea 10/05/21 lancets 28 gauge (FreeStyle Lancets) #150 ea 09/06/22 blood sugar diagnostic (True Metrix Glucose Test Strip) #100 ea 09/13/24 pen needle, diabetic 32 gauge x 5/32 (BD Ultra-Fine Amy Pen Needle) #200 ea 10/12/24 insulin glargine 100 unit/mL (3 mL) subcutaneous pen (Lantus Solostar U-100 Insulin) 40 unit (0.4 mL) subcut QHS #15 mL 03/11/25 meloxicam 15 mg tablet 15 mg PO QDAY #30 tabs 04/19/25 tizanidine 6 mg capsule 6 mg PO TID PRN muscle spasticity #30 caps 04/19/25 acetaminophen 500 mg tablet (Acetaminophen Extra Strength) 1,000 mg PO Q6H PRN back pain 04/28/25 fenofibrate nanocrystallized 145 mg tablet 145 mg PO DAILY 04/28/25 insulin aspart U-100 100 unit/mL (3 mL) subcutaneous pen (Novolog FlexPen U-100 Insulin aspart) See Protocol subcut TID 04/28/25 oxacillin 2 gram/50 mL in dextrose (iso-osmotic) intravenous piggyback 12 g (300 mL) IV Q24H 39 days 05/04/25 blood-glucose sensor (FreeStyle Monse 3 Plus Sensor device) #6 ea 05/05/25 oxycodone 5 mg tablet 5 mg PO Q6H PRN PRN Pain Score 4-10 3 days #12 tabs 05/05/25
== END 2025-05-05 16:53 | disposition home or self-care (01) | DRG 710 ==
LOC: ED 20:07 → PCU 21:08 → ICU 22:01 → MS3 04-29 10:24
PROVIDERS: Internal Medicine; Orthopaedic Surgery Orthopaedic Surgery of the Spine; Admitting Provider Student in an Organized Health Care Education/Training Program; Emergency Provider Emergency Medicine; PCP Internal Medicine
DX: A41.01 Sepsis due to Methicillin susceptible Staphylococcus aureus (principal); M46.26 Osteomyelitis of vertebra, lumbar region; E87.20 Acidosis, unspecified; D63.8 Anemia in other chronic diseases classified elsewhere; N17.9 Acute kidney failure, unspecified; E10.40 Type 1 diabetes mellitus with diabetic neuropathy, unspecified; L03.031 Cellulitis of right toe; L03.115 Cellulitis of right lower limb; Z68.33 Body mass index [BMI] 33.0-33.9, adult; L97.511 Non-pressure chronic ulcer of other part of right foot limited to breakdown of skin; E87.5 Hyperkalemia; E78.5 Hyperlipidemia, unspecified; Z79.4 Long term (current) use of insulin; E10.69 Type 1 diabetes mellitus with other specified complication; E10.621 Type 1 diabetes mellitus with foot ulcer; Z89.421 Acquired absence of other right toe(s); L03.114 Cellulitis of left upper limb; E66.811 Obesity, class 1; N30.00 Acute cystitis without hematuria; Z87.891 Personal history of nicotine dependence
CPT/HCPCS: 36415; 36569; 71045; 72148; 73080; 73200; 73660; 80048; 80053; 80202; 81001; 82607; 82728; 82962; 83036; 83540; 83550; 83605; 83735; 84100; 85025; 85045; 85610; 85652; 85730; 86140; 87040; 87070; 87075; 87077; 87086; 87088; 87149; 87186; 87205; 89050; 89051; 93005; 93306; 94762; 97802; 99285; A4216; C8929; J0295

== ENCOUNTER → 2025-05-10 | Outpatient (CLI) | payer MEDICAID, SELFPAY ==
[2025-05-10 12:44] LABS: Hematocrit 33.6 % (40-54); Hemoglobin 10.8 g/dL (13.0-16.5); Mean Corp Hgb Conc 32.1 g/dL (32-36); Mean Corpuscular Volume 89.4 fL (80-94); Mean Platelet Vol. 9.5 fl (6.2-12.0); Platelet Count 735 K/mm3 (150-450); RBC Distribution Width CV 12.5 % (11.6-14.6); RBC Distribution Width SD 40.8 fl (35.1-43.9); Red Blood Count 3.76 M/mm3 (4.6-6.2); White Blood Count 10.5 K/mm3 (4.4-11.0)
[2025-05-10 13:39] LABS: AST(SGOT) 18 U/L (<=37); Alanine Aminotransfer ALT/SGPT 15 U/L (<=46); Albumin, Serum 3.6 g/dL (3.5-5.0); Alkaline Phosphatase 103 U/L (40-129); Anion Gap 12 (5-15); BUN 24 mg/dL (4-19); BUN/Creat Ratio 19.5 RATIO (10-20); Bilirubin, Direct 0.11 mg/dL (0.00-0.30); Calcium,Total 9.5 mg/dL (7.6-11.0); Carbon Dioxide 21.0 mmol/L (21.0-32.0); Chloride 104 mmol/L (98-108); Globulin 5.1 g/dL (2.2-4.2); Glucose 121 mg/dL (70-99); Potassium 4.5 mmol/L (3.3-5.1)
== END | disposition home or self-care (01) ==
LOC: HHLAB 11:27
PROVIDERS: PCP Internal Medicine; Visit Provider Internal Medicine Infectious Disease
DX: M00.9 Pyogenic arthritis, unspecified (principal)
CPT/HCPCS: 80048; 80076; 85027

== ENCOUNTER → 2025-05-17 | Outpatient (CLI) | payer MEDICAID, SELFPAY ==
[2025-05-17 12:29] LABS: Hematocrit 36.2 % (40-54); Hemoglobin 11.6 g/dL (13.0-16.5); Mean Corp Hgb Conc 32.0 g/dL (32-36); Mean Corpuscular Volume 88.7 fL (80-94); Mean Platelet Vol. 9.9 fl (6.2-12.0); Platelet Count 615 K/mm3 (150-450); RBC Distribution Width CV 12.8 % (11.6-14.6); RBC Distribution Width SD 41.5 fl (35.1-43.9); Red Blood Count 4.08 M/mm3 (4.6-6.2); White Blood Count 13.0 K/mm3 (4.4-11.0)
[2025-05-17 13:13] LABS: AST(SGOT) 23 U/L (<=37); Alanine Aminotransfer ALT/SGPT 17 U/L (<=46); Albumin, Serum 3.8 g/dL (3.5-5.0); Alkaline Phosphatase 128 U/L (40-129); Anion Gap 13 (5-15); BUN 25 mg/dL (4-19); BUN/Creat Ratio 17.0 RATIO (10-20); Bilirubin, Direct 0.11 mg/dL (0.00-0.30); Calcium,Total 9.8 mg/dL (7.6-11.0); Carbon Dioxide 20.9 mmol/L (21.0-32.0); Chloride 102 mmol/L (98-108); Globulin 5.3 g/dL (2.2-4.2); Glucose 245 mg/dL (70-99); Potassium 4.9 mmol/L (3.3-5.1)
== END | disposition home or self-care (01) ==
LOC: HHLAB 09:31
PROVIDERS: PCP Internal Medicine; Visit Provider Internal Medicine Infectious Disease
DX: M00.9 Pyogenic arthritis, unspecified (principal)
CPT/HCPCS: 80048; 80076; 85027

== ENCOUNTER → 2025-05-24 | Outpatient (CLI) | payer MEDICAID, SELFPAY ==
[2025-05-24 10:00] LABS: Hematocrit 38.2 % (40-54); Hemoglobin 12.0 g/dL (13.0-16.5); Mean Corp Hgb Conc 31.4 g/dL (32-36); Mean Corpuscular Volume 88.0 fL (80-94); Mean Platelet Vol. 9.4 fl (6.2-12.0); Platelet Count 512 K/mm3 (150-450); RBC Distribution Width CV 13.0 % (11.6-14.6); RBC Distribution Width SD 42.0 fl (35.1-43.9); Red Blood Count 4.34 M/mm3 (4.6-6.2); White Blood Count 9.1 K/mm3 (4.4-11.0)
[2025-05-24 10:28] LABS: AST(SGOT) 22 U/L (<=37); Alanine Aminotransfer ALT/SGPT 17 U/L (<=46); Albumin, Serum 3.5 g/dL (3.5-5.0); Alkaline Phosphatase 123 U/L (40-129); Anion Gap 18 (5-15); BUN 30 mg/dL (4-19); BUN/Creat Ratio 21.6 RATIO (10-20); Bilirubin, Direct 0.09 mg/dL (0.00-0.30); Calcium,Total 9.7 mg/dL (7.6-11.0); Carbon Dioxide 16.2 mmol/L (21.0-32.0); Chloride 104 mmol/L (98-108); Globulin 2.9 g/dL (2.2-4.2); Glucose 150 mg/dL (70-99); Potassium 4.5 mmol/L (3.3-5.1)
== END | disposition home or self-care (01) ==
LOC: HHLAB 09:10
PROVIDERS: PCP Internal Medicine; Visit Provider Internal Medicine Infectious Disease
DX: M46.40 Discitis, unspecified, site unspecified (principal); B95.61 Methicillin susceptible Staphylococcus aureus infection as the cause of diseases classified elsewhere
CPT/HCPCS: 36415; 80048; 80076; 85027

== ENCOUNTER 2025-05-27 10:38 | Emergency (ER) | payer MEDICAID, SELFPAY ==
[2025-05-27] VITALS (29 sets, daily range): BP systolic 99–150; BP diastolic 66–95; PULSE 85–123; RESP 10–21; TEMP 36.5–37.1; O2SAT 92–100; BMI 34.9
--- NOTE | 2025-05-27 11:05 | EKG12_ITS ---
Test Reason : NEAR SYNCOPE Blood Pressure : */* mmHG Vent. Rate : 96 BPM Atrial Rate : 96 BPM P-R Int : 126 ms QRS Dur : 80 ms QT Int : 336 ms P-R-T Axes : 65 -2 57 degrees QTcB Int : 424 ms Normal sinus rhythm Normal ECG Confirmed by ANGEL BUSTAMANTE, LACEY ([id number]), design editor AZAM GUTIERREZ ([id number]) on 05/30/2025 8:18:51 AM Referred By: RAEGAN/LORE Confirmed By: LACEY ORTIZ MD
--- NOTE | 2025-05-27 11:11 | EX.ED.DYSGE1 ---
HPI History of Present Illness Chief Complaint: Syncope Narrative Narrative: Chief complaint and HPI: 40-year-old male with past medical history of recent lumbar discitis on IV antibiotics, oxacillin and DM presents for evaluation of near syncope. Patient states that overall his lumbar back pain is improving from his infection. He has not had any fever or chills. No weakness, numbness, tingling. States he followed up with infectious disease outpatient yesterday. Patient states for the past several weeks he has been having intermittent tachycardia. He states that he had a PCP appointment for this today in which she was sitting in a chair. States that sitting in a chair aggravated his back pain and he began breathing fast and heavy. Patient states his name was called and he stood up in which he then felt near syncope. States he developed paleness and tunnel vision. He sat back down. Did not fall. Was hypotensive at the PCPs office during the episode and sent to the emergency department. Patient is back to baseline. He denies any fever, chills, shortness of breath, chest pain abdominal pain, nausea, vomiting. Review of systems: See HPI Medications: As listed on the chart Allergies: As listed on the chart PFSH: Per chart Vital signs: As listed on the chart. Reviewed. Physical exam: Gen: A&O x3, NAD Head: Normocephalic, atraumatic Eyes: No sclera icterus, conjunctiva clear, PERRL ENT: Moist mucous membranes Neck: Trachea midline, full range of motion CV: RRR, no murmurs, no peripheral edema, right upper extremity PICC line without signs of infection Resp: Lungs CTA BL, no w/r/c GI: Abd soft, non-distended, non-tender, no r/r/g Musc: Full range of motion, no midline spinal tenderness, no bony step-offs, no back cellulitis, strength +5/5 in all extremities, radial/DP/PT pulses +2 bilaterally Skin: Warm, dry Neuro: Alert, oriented, grossly intact, sensation intact Psych: Cooperative, appropriate mood and affect [facility] Medical History Onychomycosis Type 1 diabetes mellitus with diabetic polyneuropathy Hypertriglyceridemia Wears glasses Insulin dependent diabetes mellitus Back pain Migraine headache Syncope Dietary restriction Vapes nicotine containing substance History of pain when walking History of edema Diabetic retinopathy associated with type 1 diabetes mellitus Diabetic neuropathy Osteomyelitis of foot, right, acute DKA (diabetic ketoacidoses) Cellulitis of leg Sepsis Type 1 diabetes mellitus Home Medications Medication Instructions Recorded Last Taken Type blood sugar diagnostic (FreeStyle #150 ea 10/05/21 Unknown Rx Lite Strips) lancets 28 gauge (FreeStyle #150 ea 09/06/22 Unknown Rx Lancets) blood sugar diagnostic (True #100 ea 09/13/24 Unknown Rx Metrix Glucose Test Strip) pen needle, diabetic 32 gauge x #200 ea 10/12/24 Unknown Rx 32" (BD Ultra-Fine Amy Pen Needle) insulin glargine 100 unit/mL (3 40 unit (0.4 mL) subcut QHS #15 mL 03/11/25 04/27/25 Rx mL) subcutaneous pen (Lantus Solostar U-100 Insulin) meloxicam 15 mg tablet 15 mg PO QDAY #30 tabs 04/19/25 04/28/25 Rx acetaminophen 500 mg tablet 1,000 mg PO Q6H PRN back pain 04/28/25 04/28/25 History (Acetaminophen Extra Strength) fenofibrate nanocrystallized 145 145 mg PO DAILY 04/28/25 Unknown History mg tablet insulin aspart U-100 100 unit/mL See Protocol subcut TID 04/28/25 Unknown History (3 mL) subcutaneous pen (Novolog FlexPen U-100 Insulin aspart) oxacillin 2 gram/50 mL in dextrose 12 g (300 mL) IV Q24H 39 days 05/04/25 Unknown Rx (iso-osmotic) intravenous piggyback blood-glucose sensor (FreeStyle #6 ea 05/05/25 Unknown Rx Monse 3 Plus Sensor device) oxycodone 5 mg tablet 5 mg PO Q6H PRN PRN Pain Score 05/05/25 Unknown Rx 4-10 3 days #12 tabs tizanidine 6 mg capsule 6 mg PO TID PRN muscle spasticity 05/09/25 Unknown Rx #30 caps gabapentin 300 mg capsule 300 mg PO BID #60 caps 05/13/25 Unknown Rx Allergy/AdvReac Type Severity Reaction Status Date / Time cefprozil (From Cefzil) Allergy Unknown Unknown Verified 05/13/25 11:16 Environmental Allergies: Allergy Hives Verified 05/13/25 11:16 Uncoded Penicillins AdvReac Vomiting Verified 05/27/25 10:47 Family History Father Heart disease Hypertension Mother Diabetes Thyroid disorder Surgical History History of amputation of lesser toe of right foot Social History household members: spouse current occupational status: unemployed Smoking Status: Former smoker Electronic Cigarette Use: with nicotine quit status: considering quitting alcohol intake: never substance use type: does not use what type of physical activity do you participate in: other details: Sometimes do you feel safe at home: Yes EXAM Physical Exam Const Vital Signs: 05/27/25 10:39 05/27/25 10:44 05/27/25 10:48 Temperature 97.7 F L 97.7 F L Temperature Source Oral Oral Pulse Rate 101 H 100 Pulse Rate [Lying] Pulse Rate [Sitting (for 1 minute prior to obtaining)] Pulse Rate [Standing (for 1 minute prior to obtaining)] Respiratory Rate 12 18 Respiratory Effort Normal Non-Labored Short of Breath Respiratory Pattern Normal Blood Pressure 107/66 107/66 Blood Pressure [Lying] Blood Pressure [Sitting (for 1 minute prior to obtaining)] Blood Pressure [Standing (for 1 minute prior to obtaining)] Blood Pressure Mean 79 79 Blood Pressure Mean [Lying] Blood Pressure Mean [Sitting (for 1 minute prior to obtaining)] Blood Pressure Mean [Standing (for 1 minute prior to obtaining)] Pulse Ox 92 93 Oxygen Delivery Method Room Air 05/27/25 11:41 05/27/25 11:44 05/27/25 12:00 Temperature 98.7 F 98.7 F Temperature Source Oral Oral Pulse Rate 98 88 Pulse Rate [Lying] 97 Pulse Rate [Sitting (for 1 minute prior to obtaining)] 113 H Pulse Rate [Standing (for 1 minute prior to obtaining)] 123 H Respiratory Rate 15 14 Respiratory Effort Respiratory Pattern Blood Pressure 126/79 H 125/75 H Blood Pressure [Lying] 110/78 Blood Pressure [Sitting (for 1 minute prior to obtaining)] 105/82 H Blood Pressure [Standing (for 1 minute prior to obtaining)] 99/66 Blood Pressure Mean 94 91 Blood Pressure Mean [Lying] 88 Blood Pressure Mean [Sitting (for 1 minute prior to obtaining)] 89 Blood Pressure Mean [Standing (for 1 minute prior to obtaining)] 77 Pulse Ox 100 100 Oxygen Delivery Method Room Air Room Air 05/27/25 12:13 05/27/25 12:15 05/27/25 12:30 Temperature Temperature Source Pulse Rate 88 88 Pulse Rate [Lying] Pulse Rate [Sitting (for 1 minute prior to obtaining)] Pulse Rate [Standing (for 1 minute prior to obtaining)] Respiratory Rate 17 14 Respiratory Effort Respiratory Pattern Blood Pressure 125/75 H 127/80 H Blood Pressure [Lying] Blood Pressure [Sitting (for 1 minute prior to obtaining)] Blood Pressure [Standing (for 1 minute prior to obtaining)] Blood Pressure Mean 90 92 Blood Pressure Mean [Lying] Blood Pressure Mean [Sitting (for 1 minute prior to obtaining)] Blood Pressure Mean [Standing (for 1 minute prior to obtaining)] Pulse Ox 99 100 100 Oxygen Delivery Method 05/27/25 12:45 05/27/25 13:00 05/27/25 13:05 Temperature 98.7 F Temperature Source Oral Pulse Rate 86 86 90 Pulse Rate [Lying] Pulse Rate [Sitting (for 1 minute prior to obtaining)] Pulse Rate [Standing (for 1 minute prior to obtaining)] Respiratory Rate 16 18 19 H Respiratory Effort Respiratory Pattern Blood Pressure 119/78 127/84 H 117/81 H Blood Pressure [Lying] Blood Pressure [Sitting (for 1 minute prior to obtaining)] Blood Pressure [Standing (for 1 minute prior to obtaining)] Blood Pressure Mean 91 96 93 Blood Pressure Mean [Lying] Blood Pressure Mean [Sitting (for 1 minute prior to obtaining)] Blood Pressure Mean [Standing (for 1 minute prior to obtaining)] Pulse Ox 99 100 100 Oxygen Delivery Method Room Air 05/27/25 13:15 05/27/25 13:30 05/27/25 13:45 Temperature Temperature Source Pulse Rate 85 85 100 Pulse Rate [Lying] Pulse Rate [Sitting (for 1 minute prior to obtaining)] Pulse Rate [Standing (for 1 minute prior to obtaining)] Respiratory Rate 12 21 H 18 Respiratory Effort Respiratory Pattern Blood Pressure 117/81 H Blood Pressure [Lying] Blood Pressure [Sitting (for 1 minute prior to obtaining)] Blood Pressure [Standing (for 1 minute prior to obtaining)] Blood Pressure Mean 92 Blood Pressure Mean [Lying] Blood Pressure Mean [Sitting (for 1 minute prior to obtaining)] Blood Pressure Mean [Standing (for 1 minute prior to obtaining)] Pulse Ox 100 99 99 Oxygen Delivery Method 05/27/25 14:03 05/27/25 14:03 05/27/25 14:15 Temperature Temperature Source Pulse Rate 120 H 120 H 87 Pulse Rate [Lying] Pulse Rate [Sitting (for 1 minute prior to obtaining)] Pulse Rate [Standing (for 1 minute prior to obtaining)] Respiratory Rate 17 17 10 L Respiratory Effort Respiratory Pattern Blood Pressure 139/93 H 132/84 H Blood Pressure [Lying] Blood Pressure [Sitting (for 1 minute prior to obtaining)] Blood Pressure [Standing (for 1 minute prior to obtaining)] Blood Pressure Mean 105 98 Blood Pressure Mean [Lying] Blood Pressure Mean [Sitting (for 1 minute prior to obtaining)] Blood Pressure Mean [Standing (for 1 minute prior to obtaining)] Pulse Ox 100 Oxygen Delivery Method 05/27/25 14:30 05/27/25 14:45 05/27/25 15:00 Temperature Temperature Source Pulse Rate 95 96 Pulse Rate [Lying] Pulse Rate [Sitting (for 1 minute prior to obtaining)] Pulse Rate [Standing (for 1 minute prior to obtaining)] Respiratory Rate 21 H Respiratory Effort Respiratory Pattern Blood Pressure 122/86 H 123/81 H 150/95 H Blood Pressure [Lying] Blood Pressure [Sitting (for 1 minute prior to obtaining)] Blood Pressure [Standing (for 1 minute prior to obtaining)] Blood Pressure Mean 96 95 113 Blood Pressure Mean [Lying] Blood Pressure Mean [Sitting (for 1 minute prior to obtaining)] Blood Pressure Mean [Standing (for 1 minute prior to obtaining)] Pulse Ox 100 100 100 Oxygen Delivery Method 05/27/25 15:15 05/27/25 15:30 05/27/25 15:45 Temperature Temperature Source Pulse Rate Pulse Rate [Lying] Pulse Rate [Sitting (for 1 minute prior to obtaining)] Pulse Rate [Standing (for 1 minute prior to obtaining)] Respiratory Rate Respiratory Effort Respiratory Pattern Blood Pressure 122/88 H 111/84 H Blood Pressure [Lying] Blood Pressure [Sitting (for 1 minute prior to obtaining)] Blood Pressure [Standing (for 1 minute prior to obtaining)] Blood Pressure Mean 99 94 Blood Pressure Mean [Lying] Blood Pressure Mean [Sitting (for 1 minute prior to obtaining)] Blood Pressure Mean [Standing (for 1 minute prior to obtaining)] Pulse Ox 99 100 100 Oxygen Delivery Method 05/27/25 16:00 05/27/25 16:15 05/27/25 16:30 Temperature Temperature Source Pulse Rate 85 Pulse Rate [Lying] Pulse Rate [Sitting (for 1 minute prior to obtaining)] Pulse Rate [Standing (for 1 minute prior to obtaining)] Respiratory Rate 19 H Respiratory Effort Respiratory Pattern Blood Pressure Blood Pressure [Lying] Blood Pressure [Sitting (for 1 minute prior to obtaining)] Blood Pressure [Standing (for 1 minute prior to obtaining)] Blood Pressure Mean Blood Pressure Mean [Lying] Blood Pressure Mean [Sitting (for 1 minute prior to obtaining)] Blood Pressure Mean [Standing (for 1 minute prior to obtaining)] Pulse Ox 100 100 100 Oxygen Delivery Method 05/27/25 16:45 05/27/25 16:51 Temperature Temperature Source Pulse Rate 88 Pulse Rate [Lying] Pulse Rate [Sitting (for 1 minute prior to obtaining)] Pulse Rate [Standing (for 1 minute prior to obtaining)] Respiratory Rate Respiratory Effort Respiratory Pattern Blood Pressure 127/89 H Blood Pressure [Lying] Blood Pressure [Sitting (for 1 minute prior to obtaining)] Blood Pressure [Standing (for 1 minute prior to obtaining)] Blood Pressure Mean 100 Blood Pressure Mean [Lying] Blood Pressure Mean [Sitting (for 1 minute prior to obtaining)] Blood Pressure Mean [Standing (for 1 minute prior to obtaining)] Pulse Ox 100 100 Oxygen Delivery Method MDM MDM MDM Narrative Medical decision making narrative: 40-year-old male with past medical history of recent lumbar discitis on IV antibiotics, oxacillin and DM presents for evaluation of near syncope. Patient states that overall his lumbar back pain is improving from his infection. He has not had any fever or chills. No weakness, numbness, tingling. States he followed up with infectious disease outpatient yesterday. Patient states for the past several weeks he has been having intermittent tachycardia. He states that he had a PCP appointment for this today in which she was sitting in a chair. States that sitting in a chair aggravated his back pain and he began breathing fast and heavy. Patient states his name was called and he stood up in which he then felt near syncope. Was hypotensive at the PCPs office during the episode and sent to the emergency department. On presentation, patient no acute distress. Blood pressure soft but not hypotension. Mildly tachycardic. Differential diagnosis includes but is not limited to orthostatic hypotension, hyperventilation, electrolyte abnormality, anemia, PE, ACS, thyroid, arrhythmia., Suspect less likely and cranial abnormality Cardiac/near syncope workup ordered. Orthostatic vital signs positive. Patient became lightheaded. Blood pressure dropped. Became tachycardic. Patient receiving fluids. EKG reviewed. CBC without leukocytosis. Patient has baseline anemia of 12.4 which is trending up from previous labs. Platelets unremarkable. D-dimer elevated at 2.57. Cannot rule out PE. CTA chest ordered. CMP shows slightly worsening renal insufficiency with creatinine of 1.66. Patient has history of renal insufficiency on previous labs. Mild AST transaminitis and elevated alkaline phosphatase patient not endorsing any abdominal pain. Lactic acid unremarkable. Magnesium level unremarkable. TSH unremarkable. CTA chest negative for PE or other abnormality. CT of the brain shows no acute intracranial abnormality. BMP unremarkable. Patient's troponin is 27 and 24. Patient not endorsing any chest pain. Patient was ambulated in the emergency department where he became short of breath and tachycardic into the 120s. Unclear source for patient's tachycardia. Will consult cardiology. With rest, heart rate is now 88. Patient was discussed with cardiology, Dr. Menchaca. No clear etiology for his tachycardia at this time. Recommended stat echocardiogram to be performed given his recent infection. If echocardiogram unremarkable. Patient stable for discharge home and follow-up in his office. Patient was updated of all results and confirmed understand the plan. Echocardiogram shows an EF of 70%. No pericardial effusion. Normal LV. I received a call from Dr. Menchaca, no concern for echocardiogram. Feels that tachycardia may be secondary to mild dehydration which I agree given his increase in renal insufficiency. Recommend increasing fluids over next several days. Patient was updated of all the results and confirmed understanding of the plan. Follow-up with his primary care physician and cardiology outpatient. BMP was ordered to have it repeated on Friday to monitor kidney function. He confirmed understanding. return precautions explained. Recommend slow movements and waiting before changing positions. EKG: Interpreted by me/EM physician: EKG shows normal sinus rhythm without any acute ischemic changes. Heart rate 96 Impression: 1. Near syncope 2. Orthostatic hypotension 3. Episodic tachycardia 4. Renal insufficiency Lab Data Labs: Laboratory Results - last 24 hr 05/27/25 05/27/25 11:28 13:27 WBC 9.5 RBC 4.41 L Hgb 12.4 L Hct 38.8 L MCV 88.0 MCH 28.1 MCHC 32.0 RDW Std Deviation 42.2 RDW Coeff of Sharon 13.2 Plt Count 377 MPV 9.2 Immature Gran % (Auto) 0.300 Neut % (Auto) 76.8 H Lymph % (Auto) 12.9 L Finney % (Auto) 7.1 Eos % (Auto) 2.1 Baso % (Auto) 0.8 Absolute Neuts (auto) 7.3 Absolute Lymphs (auto) 1.22 Nucleated RBC % 0 D-Dimer Quant (PE/DVT) 2.57 H* Sodium 136 Potassium 5.0 Chloride 102 Carbon Dioxide 20.5 L Anion Gap 14 BUN 29 H Creatinine 1.66 H Estim Creat Clear Calc 80.27 Est GFR (MDRD) Non-Af 53 L BUN/Creatinine Ratio 17.2 Glucose 183 H Lactic Acid 1.1 Calcium 10.1 Magnesium 2.0 Total Bilirubin 0.55 AST 49 H ALT 40 Alkaline Phosphatase 139 H Troponin T High Sens 27 H Troponin T Hi Sens 2 Hr 24 H NT pro BNP II 84 Total Protein 8.9 H Albumin 3.7 Globulin 5.2 H Albumin/Globulin Ratio 0.7 L TSH 0.785 Radiography Diagnostic Testing: Clinical Impression(s) from Imaging Studies Brain CT 05/27/25 11:50 IMPRESSION: No acute intracranial abnormality Reading Location: [facility] Chest CTA 05/27/25 11:50 IMPRESSION: No evidence of pulmonary embolism. The lungs are clear. Reading Location: [facility] Echocardiogram 05/27/25 14:57 Interpretation Summary The estimated ejection fraction is 70 %. Ordering Physician: Fabrice Jurado Referring Physician: Maggie Meier Performed By: Jessika David, RDCS, RVT Discharge Plan Triage Chief Complaint: Syncope ED Provider: Fabrice Jurado Dx/Rx/DC Orders Clinical Impression: Near syncope, Orthostatic hypotension, Tachycardia Instructions: Understanding Tachycardia, ED Hypotension, Orthostatic, ED Near-Fainting, Uncertain Cause Prescriptions: No Action (DME) FreeStyle Lite Strips Strip See Rx Instructions .ROUTE .MEDSUPPLY Qty: 150 6RF Rx Instructions: 5 times daily (DME) lancets [FreeStyle Lancets] 28 gauge misc See Rx Instructions .ROUTE .MEDSUPPLY Qty: 150 6RF Rx Instructions: 5 times daily insulin glargine [Lantus Solostar U-100 Insulin] 100 unit/mL (3 mL) insulin pen 40 unit SC QHS Qty: 15 6RF meloxicam 15 mg tablet 15 mg PO QDAY Qty: 30 0RF gabapentin 300 mg capsule 300 mg PO BID Qty: 60 0RF fenofibrate nanocrystallized 145 mg tablet 145 mg PO DAILY insulin aspart U-100 [Novolog FlexPen U-100 Insulin] 100 unit/mL (3 mL) insulin pen See Protocol SC TID Protocol: 6. Sliding Scale Insulin Custom Condition: 1 Dose/Route: Number of Units Instruction: FOR EVERY 8 CARBS CONSUMED Protocol Text: Custom Sliding Scale acetaminophen [Acetaminophen Extra Strength] 500 mg tablet 1,000 mg PO Q6H PRN (Reason: back pain) Patient Comments: PT STATES HE TAKES 1000MG IN THE MORNING AND BEFORE BED oxacillin in dextrose(iso-osm) 2 gram/50 mL piggyback 12 g IV Q24H 39 Days Rx Instructions: stop date 06/12/25. Dx: mssa discitis. 12gm iv oxacillin given as continuous infusion q24h. Weekly bmp, cbc, and LFT. Fax to [phone]. Routine picc care per protocol. oxycodone 5 mg Tablet 5 mg PO Q6H PRN PRN (Reason: Pain Score 4-10) 3 Days Qty: 12 0RF (DME) True Metrix Glucose Test Strip Strip See Rx Instructions .Route Qty: 100 4RF Rx Instructions: As directed (DME) pen needle, diabetic [BD Ultra-Fine Amy Pen Needle] 32 gauge x 5/32" needle See Rx Instructions .ROUTE .MEDSUPPLY Qty: 200 6RF Rx Instructions: 6 times daily (DME) FreeStyle Monse 3 Plus Sensor Device See Rx Instructions .Route Qty: 6 1RF Rx Instructions: As directed tizanidine 6 mg capsule 6 mg PO TID PRN (Reason: muscle spasticity) Qty: 30 0RF Other Ambulatory Orders: Basic Metabolic Profile (BMP) (Routine) Timeframe: 3 Days Facility[facility] - Location: Laboratory [facility] Provider: Maggie Meier Referrals: Maggie Meier MD [Primary Care Provider, Internal Medicine] - 3-5 Days Sharmila Menchaca MD [Med Staff - Active Staff, Cardiology] - 3-5 Days Activity Restrictions/Additional Instructions: Recommend keeping up with fluid hydration. Recommend limiting use of anything that decreases blood pressure such as oxycodone and muscle relaxers. Follow-up with primary care physician and cardiology for tachycardia. Return back to ED symptoms change or worsen. Your creatinine is slowly increasing. I want you to have repeat labs on Friday. Print Language: Ukrainian Disposition Disposition: Home, Self Care
[2025-05-27 11:36] LABS: Hematocrit 38.8 % (40-54); Hemoglobin 12.4 g/dL (13.0-16.5); Immature Granulocytes Count 0.030 X10^3/uL (0.0-0.0); Mean Corp Hgb Conc 32.0 g/dL (32-36); Mean Corpuscular Volume 88.0 fL (80-94); Mean Platelet Vol. 9.2 fl (6.2-12.0); NRBC Flagged by Analyzer 0 % (0-5); Platelet Count 377 K/mm3 (150-450); RBC Distribution Width CV 13.2 % (11.6-14.6); RBC Distribution Width SD 42.2 fl (35.1-43.9); Red Blood Count 4.41 M/mm3 (4.6-6.2); White Blood Count 9.5 K/mm3 (4.4-11.0)
[2025-05-27] MEDS: 0.9% Normal Saline (1000mL) 1,000 ML 1000 ML IV (11:48)
--- NOTE | 2025-05-27 11:50 | CT_ITS ---
PROCEDURE: BRAIN/HEAD WITHOUT CONTRAST 05/27/2025 REASON FOR EXAM: NEAR SYNCOPE TECHNIQUE: Procedure Code: CTBR Modality: CT Procedure: BRAIN/HEAD WITHOUT CONTRAST Coronal and Sagittal reconstruction series were provided. One or more dose reduction techniques were used (e.g., Automated exposure control, adjustment of the mA and/or kV according to patient size, use of iterative reconstruction technique. RADIATION DOSE SUMMARY: CTDlvol: 45 mGy DLP: 863 mGycm COMPARISON: None FINDINGS: Brain: There is no evidence of hemorrhage, acute ischemia or mass. No extra- axial fluid collection, midline shift or mass effect. CSF Spaces: Normal Sinuses/Mastoids: Clear Bones: No fracture CT/Brain/Head without Contrast IMPRESSION: No acute intracranial abnormality Reading Location: [id number]
--- NOTE | 2025-05-27 11:50 | CT_ITS ---
PROCEDURE: CTA CHEST W/WO CONTRAST 05/27/2025 REASON FOR EXAM: ELEVATED DIMER, PE TECHNIQUE: Procedure Code: [id number] Modality: CT Procedure: CTA CHEST W/WO CONTRAST Multiplanar Sagittal and Coronal images were obtained. 3D post processing was performed CONTRAST: Isovue-300 VOLUME: 100 mL One or more dose reduction techniques were used (e.g., Automated exposure control, adjustment of the mA and/or kV according to patient size, use of iterative reconstruction technique). RADIATION DOSE SUMMARY: CTDlvol: 19 mGy DLP: 1437.97 mGycm COMPARISON: June 11, 2019. FINDINGS: Hardware: EKG electrodes. Lymph nodes: Small fat containing bilateral axillary lymph nodes. Heart: The heart is nonenlarged. Coronary artery calcification. Thoracic Aorta: No thoracic aortic aneurysm or dissection. Pulmonary Vessels: Well opacified. No evidence of pulmonary embolism. Lungs and Airways: No pulmonary infiltration or mass lesion. Pleura: No pleural effusion. Upper Abdomen: Fatty infiltration of the liver. Small hiatal hernia. Bones: Minimal degenerative changes. CT/CTA Chest W/WO Contrast IMPRESSION: No evidence of pulmonary embolism. The lungs are clear. Reading Location: [place] [id number]
[2025-05-27 11:55] LABS: D-Dimer Quantitative (DVT/PE) 2.57 FEU/ug/m (0.27-0.49)
[2025-05-27 12:03] LABS: AST(SGOT) 49 U/L (<=37); Alanine Aminotransfer ALT/SGPT 40 U/L (<=46); Albumin, Serum 3.7 g/dL (3.5-5.0); Alkaline Phosphatase 139 U/L (40-129); Anion Gap 14 (5-15); BUN 29 mg/dL (4-19); BUN/Creat Ratio 17.2 RATIO (10-20); Calcium,Total 10.1 mg/dL (7.6-11.0); Carbon Dioxide 20.5 mmol/L (21.0-32.0); Chloride 102 mmol/L (98-108); Estimated Creatinine Clearance 80.27 ml/min (50-250); Globulin 5.2 g/dL (2.2-4.2); Glucose 183 mg/dL (70-99); Magnesium 2.0 mg/dL (1.5-2.2); Potassium 5.0 mmol/L (3.3-5.1); Pro- Brain NATRIURETIC PEPTIDE 84 pg/mL (<=450); Troponin T High Sensitivity 27 ng/L (<=22)
[2025-05-27 14:08] LABS: Troponin T High Sens 2 HR 24 ng/L (<=22)
--- NOTE | 2025-05-27 14:57 | ECHOL_ITS ---
Reason For Study : Arrhythmia Procedure This was a limited 2D transthoracic echocardiogram. Exam performed portable in ED. Left Ventricle Normal LV size. The estimated ejection fraction is 70 %. No regional wall motion abnormalities noted. Right Ventricle Normal RV size. Normal systolic function. Mitral Valve There is no mitral valve stenosis. No mitral valve insufficiency. Tricuspid Valve There is no tricuspid stenosis. No tricuspid valve insufficiency. Aortic Valve There is no aortic stenosis. No aortic valve insufficiency. Pulmonic Valve No pulmonic valve insufficiency. Pericardium/Pleural No pericardial effusion. MMode/2D Measurements & Calculations LVIDd: 4.3 cm IVSd: 1.2 cm LVIDs: 2.2 cm LVPWd: 1.3 cm FS: 47.5 % ECHO/Echo, Limited Study Interpretation Summary The estimated ejection fraction is 70 %. Ordering Physician: Fabrice Jurado Referring Physician: Maggie Meier Performed By: Jessika David, JIMMIE, RVT
== END 2025-05-27 17:23 | disposition home or self-care (01) ==
PROVIDERS: Emergency Provider Surgery; PCP Internal Medicine; Visit Provider Surgery
DX: I95.1 Orthostatic hypotension (principal); E10.42 Type 1 diabetes mellitus with diabetic polyneuropathy; R00.0 Tachycardia, unspecified; Z87.891 Personal history of nicotine dependence
CPT/HCPCS: 70450; 71275; 80053; 83605; 83735; 83880; 84443; 84484; 85025; 85379; 93005; 93308; 96360; 96361; 99285; Q9967; A4216

== ENCOUNTER → 2025-05-31 | Outpatient (CLI) | payer MEDICAID, SELFPAY ==
[2025-05-31 10:09] LABS: Hematocrit 39.1 % (40-54); Hemoglobin 12.4 g/dL (13.0-16.5); Mean Corp Hgb Conc 31.7 g/dL (32-36); Mean Corpuscular Volume 88.1 fL (80-94); Mean Platelet Vol. 10.0 fl (6.2-12.0); Platelet Count 470 K/mm3 (150-450); RBC Distribution Width CV 13.3 % (11.6-14.6); RBC Distribution Width SD 43.1 fl (35.1-43.9); Red Blood Count 4.44 M/mm3 (4.6-6.2); White Blood Count 7.8 K/mm3 (4.4-11.0)
[2025-05-31 10:32] LABS: AST(SGOT) 36 U/L (<=37); Alanine Aminotransfer ALT/SGPT 50 U/L (<=46); Albumin, Serum 3.9 g/dL (3.5-5.0); Alkaline Phosphatase 154 U/L (40-129); Anion Gap 12 (5-15); BUN 24 mg/dL (4-19); BUN/Creat Ratio 18.5 RATIO (10-20); Bilirubin, Direct 0.13 mg/dL (0.00-0.30); Calcium,Total 9.6 mg/dL (7.6-11.0); Carbon Dioxide 22.7 mmol/L (21.0-32.0); Chloride 102 mmol/L (98-108); Globulin 5.1 g/dL (2.2-4.2); Glucose 273 mg/dL (70-99); Potassium 4.7 mmol/L (3.3-5.1)
== END | disposition home or self-care (01) ==
LOC: HHLAB 09:14
PROVIDERS: PCP Internal Medicine; Visit Provider Internal Medicine Infectious Disease
DX: M46.40 Discitis, unspecified, site unspecified (principal); B95.61 Methicillin susceptible Staphylococcus aureus infection as the cause of diseases classified elsewhere
CPT/HCPCS: 80048; 80076; 85027

== ENCOUNTER → 2025-06-07 | Outpatient (CLI) | payer MEDICAID, SELFPAY ==
[2025-06-07 12:34] LABS: Hematocrit 38.4 % (40-54); Hemoglobin 12.6 g/dL (13.0-16.5); Mean Corp Hgb Conc 32.8 g/dL (32-36); Mean Corpuscular Volume 86.3 fL (80-94); Mean Platelet Vol. 10.1 fl (6.2-12.0); Platelet Count 450 K/mm3 (150-450); RBC Distribution Width CV 13.4 % (11.6-14.6); RBC Distribution Width SD 42.1 fl (35.1-43.9); Red Blood Count 4.45 M/mm3 (4.6-6.2); White Blood Count 8.2 K/mm3 (4.4-11.0)
[2025-06-07 13:20] LABS: AST(SGOT) 68 U/L (<=37); Alanine Aminotransfer ALT/SGPT 110 U/L (<=46); Albumin, Serum 3.9 g/dL (3.5-5.0); Alkaline Phosphatase 158 U/L (40-129); Anion Gap 13 (5-15); BUN 30 mg/dL (4-19); BUN/Creat Ratio 22.2 RATIO (10-20); Bilirubin, Direct 0.13 mg/dL (0.00-0.30); Calcium,Total 9.8 mg/dL (7.6-11.0); Carbon Dioxide 22.9 mmol/L (21.0-32.0); Chloride 103 mmol/L (98-108); Globulin 4.7 g/dL (2.2-4.2); Glucose 169 mg/dL (70-99); Potassium 4.7 mmol/L (3.3-5.1)
== END | disposition home or self-care (01) ==
PROVIDERS: PCP Internal Medicine; Referring Provider Internal Medicine Infectious Disease; Visit Provider Internal Medicine Infectious Disease
DX: M46.40 Discitis, unspecified, site unspecified (principal); B95.61 Methicillin susceptible Staphylococcus aureus infection as the cause of diseases classified elsewhere
CPT/HCPCS: 80048; 80076; 85027

== ENCOUNTER → 2025-07-05 | Outpatient (CLI) | payer MEDICAID, SELFPAY ==
[2025-07-05 17:57] LABS: Hematocrit 38.6 % (40-54); Hemoglobin 12.7 g/dL (13.0-16.5); Immature Granulocytes Count 0.110 X10^3/uL (0.0-0.0); Mean Corp Hgb Conc 32.9 g/dL (32-36); Mean Corpuscular Volume 84.8 fL (80-94); Mean Platelet Vol. 10.1 fl (6.2-12.0); NRBC Flagged by Analyzer 0 % (0-5); Platelet Count 617 K/mm3 (150-450); RBC Distribution Width CV 12.6 % (11.6-14.6); RBC Distribution Width SD 38.8 fl (35.1-43.9); Red Blood Count 4.55 M/mm3 (4.6-6.2); White Blood Count 13.5 K/mm3 (4.4-11.0)
[2025-07-05 17:59] LABS: CRP 87.10 mg/L (0.0-3.0)
[2025-07-05 18:02] LABS: AST(SGOT) 19 U/L (<=37); Alanine Aminotransfer ALT/SGPT 16 U/L (<=46); Albumin, Serum 3.9 g/dL (3.5-5.0); Alkaline Phosphatase 146 U/L (40-129); Anion Gap 14 (7-18); BUN 23 mg/dL (4-19); BUN/Creat Ratio 16.4 RATIO (10-20); Calcium,Total 10.1 mg/dL (7.6-11.0); Carbon Dioxide 23.2 mmol/L (20.0-29.0); Chloride 100 mmol/L (96-106); Globulin 4.6 g/dL (2.2-4.2); Glucose 190 mg/dL (70-99); Iron 36 ug/dL (65-175); Potassium 4.2 mmol/L (3.5-5.1)
== END | disposition home or self-care (01) ==
LOC: MTLAB 14:30
PROVIDERS: Nurse Practitioner Family; PCP Internal Medicine; Referring Provider Orthopaedic Surgery Orthopaedic Surgery of the Spine; Visit Provider Orthopaedic Surgery Orthopaedic Surgery of the Spine
DX: M46.46 Discitis, unspecified, lumbar region (principal); R06.00 Dyspnea, unspecified; R42 Dizziness and giddiness; R55 Syncope and collapse
CPT/HCPCS: 36415; 80053; 83036; 83540; 84443; 85025; 85652; 86140

== ENCOUNTER → 2025-07-06 | Outpatient (CLI) | payer MEDICAID, SELFPAY ==
--- OUTSIDE RECORDS SUMMARY | 2025-07-06 12:05 | XMS RPT_ITS | CCD ---
Author Organization [facility] Care Team Providers Care Manager Battery Name Role Phone Unavailable Primary Care Provider Magdiel Morejon MD Primary Care Provider [phone] Dr. Magdiel Hrust Primary Care Provider Dr. Magdiel Hurst Referring Provider Dr. Tez Clement Attending Provider Magdiel Hurst MD Primary Care Provider DR MAGDIEL HURST MD Primary Care Physician LUIS EDUARDO LEE MD Attending Unavail DR MAGDIEL Webb MD Primary Care Unavaila ble Dr. Magdiel Hurst Primary Care Provider Dr. Magdiel Hurst Referring Provider Dr. Tez Clement Attending Provider Dr. Magdiel Hurst Primary Care Provider Dr. Magdiel Hurst Referring Provider Dr. Tez Clement Attending Provider Magdiel Hurst MD Primary Care Provider Magdiel Hurst MD Primary Care Provider Unavailable Primary Care Provider Dr. Josh Geronimo MD Primary Care Provider Dr. Josh Meier MD Referring Provider Dr. Tez Clement MD Attending Provider Care Physician, No Primary Referring Provider Un available Renea BUSTAMANTE, Dr. Serrano Attending Provider Josh Meier MD Primary Care Provider [phone] JOSH MEIER Primary Care Unavailable JOSEMANUEL POLLARD Attending Unavailable Renea BUSTAMANTE, Dr. Serrano Primary Care Provider [phone] Renea BUSTAMANTE, Dr. Serrano Attending Provider Renea BUSTAMANTE, Dr. Serrano Referring Provider King ROBBY, Dr. Reagan Attending Provider Renea BUSTAMANTE, Dr. Serrano Primary Care Physician Renea BUSTAMANTE, Dr. Serrano Attending Physician [phone] King ROBBY, Dr. Reagan Attending Physician Esther SILVA, Dr. Brown Attending Physician Génesis COLON-CAntonietta Attending Physician Annita Salazar Attending Physician Raad BUSTAMANTE, Dr. Mccray Attending Physician Renea BUSTAMANTE, Dr. Serrano Primary Care Physician [phone] Renea BUSTAMANTE, Dr. Serrano Referring Provider King ROBBY, Dr. Reagan Attending Physician Esther SILVA, Dr. Brown Attending Physician Génesis BLEACH BOILER PACKER-CAntonietta Attending Physician Annita Salazar Attending Physician Raad BUSTAMANTE, Dr. Mccray Attending Physician Esther SILVA, Dr. Brown Referring Provider Franco BUSTAMANTE, Dr. Bond Emergency Department Physici an Greta BUSTAMANTE, Dr. Kristin Reeder Admitting Physician Greta BUSTAMANTE, Dr. Kristin Reeder Nurse Practitioner Cruz BUSTAMANTE, Dr. Bright Nurse Practitioner Michelet BUSTAMANTE, Dr. Suazo Nurse Practitioner Seth CALDERON, Dr. Burr Nurse Practitioner Tao BUSTAMANTE, Dr. Fernandez Nurse Practitioner Unavaila ble Jacinto SOTO, Dr. Rubalcava Attending Physician Noah BUSTAMANTE, Dr. Nick Nurse Practitioner Tao BUSTAMANTE, Dr. Fernandez Attending Physician Unavail able Michelet BUSTAMANTE, Dr. Suazo Attending Physician Noah BUSTAMANTE, Dr. Nick Attending Physician Jacinto SOTO, Dr. Rubalcava Nurse Practitioner Cruz BUSTAMANTE, Dr. Bright Attending Physician [place], Josh Primary Care Unavailable Renea, Josh Attending Unavailable Renea, Josh Referring Unavailable George Ambrocio Attending Unavailable George Ambrocio Referring Unavailable Renea, Josh Primary Care Unavailable UrbanoTez Referring Unavailable Tez Clement Attending Unavailable Renea, Josh Primary Care Unavailable Koram, Kristin Lilli Admitting Unavailable Koram, Kristin Lilli Consulting Unavailable Khadar Casey Attending Unavailable [place], Josh Primary Care Unavailable Deangelo Arroyo Consulting Unavailable Gabriele Tafyoa Consulting Unavailable Horn, Aminah Consulting Unavailable Kittoe, Jim Consulting Unavailable Zamora, Park Consulting Unavailable Jacinto, Khadar Consulting Unavailable George Ambrocio Attending Unavailable George Ambrocio Referring Unavailable Care Physician, No Primary Primary Care Unava ilable Renea, Josh Primary Care Unavailable Esther, Edward Referring Unavailable Kevin Santana Attending Unavailable Deangelo Arroyo Attending Unavailable Renea, Josh Primary Care Unavailable Koram, Kristin Lilli Consulting Unavailable Koram, Kristin Lilli Admitting Unavailable Khadar Casey Attending Unavailable [place], Josh Primary Care Unavailable Deangelo rAroyo Consulting Unavailable Michelet, Gabriele Consulting Unavailable Horn, Aminah Consulting Unavailable Kittoe, Jim Consulting Unavailable Zamora, Park Consulting Unavailable Deangelo Arroyo Attending Unavailable Renea, Josh Primary Care Unavailable Gabriele Tafoya Attending Unavailable [place], Josh Primary Care Unavailable Renea, Josh Referring Unavailable Annita Baez Attending Unavailable [place], Josh Primary Care Unavailable Kevin Santana Attending Unavailable [place], Josh Referring Unavailable [place], Josh Primary Care Unavailable [place], Josh Attending Unavailable Renea, Josh Referring Unavailable Park Zamora Attending Unavailable Khadar Casey Referring Unavailable CristóbalGeorge moreno Referring Unavailable Renea, Josh Primary Care Unavailable George Ambrocio Attending Unavailable Renea, Josh Primary Care Unavailable Raad, Mahendra Attending Unavailable Deangelo Arroyo Attending Unavailable Renea, Josh Primary Care Unavailable Tez Clement Attending Unavailable [place], Josh Primary Care Unavailable Renea, Josh Referring Unavailable Renea, Josh Primary Care Unavailable Renea, Josh Attending Unavailable Care Physician, No Primary Referring Unava ilable Annita Baez Attending Unavailable Renea, Josh Primary Care Unavailable Renea, Josh Referring Unavailable Renea, Josh Primary Care Unavailable Raad, Mahendra Attending Unavailable Renea, Josh Primary Care Unavailable Renea, Josh Attending Unavailable [place], Josh Referring Unavailable Tez Clement Attending Unavailable [place], Josh Primary Care Unavailable [place], Josh Referring Unavailable [place], Josh Primary Care Unavailable [place], Josh Referring Unavailable Antonietta Capps Attending Unavailable Kristin Hernandes Attending Unavailable Jim Burger Attending Unavailable [place], Josh Primary Care Unavailable Magdiel Hurst Referring Unavailable Tez Clement Attending Unavailable RaadMahendra nelson Attending Unavailable Renea, Josh Primary Care Unavailable Allergies Allergy Classification Reported Allergen(s) Allergy Type Date of Onset Reaction(s) Facility Cephalosporins (antibiotic) (1 source) cefprozil Drug Allergy 5 [facility] Work Phone: Penicillins (antibiotic) (1 source) Penicillins Drug Allergy 5 [facility] (20 sources) cefprozil; Translations: [CEFPROZIL] Drug Allergy 5 [facility] Work Phone: (2 sources) Penicillins; Translations: [PENICILLINS] Drug Allergy 5 [facility] Upset [facility] (6 sources) glue [Other] Propensity to adverse reactions 7 [facility] Work Phone: (12 sources) Penicillins Drug Allergy 5 GI Upset [facility] (1 source) industrial glue Allergy to substance 3 Unknown [facility] (1 source) Cephalosporins (Antibiotic); Translations: [cephalosporins] Food allergy [facility] (13 sources) Environmental Allergies: Uncoded; Translations: [Environmental Allergies: Uncoded] Allergy to substance 3 Hives [facility] Comment on above: Industrial glue (2 sources) Penicillins Drug Allergy 5 GI Upset [facility] (1 source) cefprozil Drug Allergy 5 [facility] Repository Medications Current Medications Medication Drug Class(es) Dates Sig (Normalized) Sig (Original) acetaminophen 500 mg oral tablet (1 source) Start: 04-28-2025 Blood-Glucose Sensor (Freestyle Monse 3 Plus Sensor) device (20 sources) Start: 03-11-2025 Blood-Glucose Sensor (Freestyle Monse 3 Plus Sensor) device Active 0 .Route 6 March 11, 2025 9:42am As directed Start: 02-22-2025 End: 03-11-2025 Blood-Glucose Sensor (Freest yle Monse 3 Plus Sensor) device Discontinued 0 .Route 6 February 22, 2025 7:04am March 11, 2025 9:43am As directed Start: 07-13-2024 End: 02-22-2025 Blood-Glucose Sensor (Freest yle Monse 3 Plus Sensor) device Discontinued 0 .Route 6 July 13, 2024 3:23pm February 22, 2025 7:04am As directed Start: 07-13-2024 Blood-Glucose Sensor (Freestyle Monse 3 Plus Sensor) device Active 0 .Route July 13, 2024 3:23pm As directed Start: 05-13-2024 End: 07-13-2024 Blood-Glucose Sensor (Freest yle Monse 3 Plus Sensor) device Discontinued 0 .Route 6 May 13, 2024 12:00am July 13, 2024 3:23pm As directed Start: 05-13-2024 End: 07-13-2024 Blood-Glucose Sensor (Freest yle Monse 3 Plus Sensor) device Discontinued 0 .Route 6 May 13, 2024 12:00am July 13, 2024 3:23pm As directed cephalexin 500 mg oral capsule (1 source) Cephalosporin Antibacterial Start: 01-02-2024 End: 01-12-2024 take 1 capsule by mouth twice daily cephALEXin (KEFLEX) 500 mg capsule Indications: Strep throat Take 1 capsule by mouth two times a day for 10 days. 20 capsule 0 01/02/2024 01/12/2024 Active fenofibrate 145 mg oral tablet (17 sources) Peroxisome Proliferator Receptor alpha Agonist Start: 06-03-2024 End: 04-28-2025 Start: 06-01-2024 End: 06-03-2024 fluticasone propionate 0.05 mg/actuat metered dose nasal spray (6 sources) Corticosteroid Start: 02-10-2024 take 2 spray(s) by mouth once daily fluticasone (FLONASE) 50 mcg/actuation nasal spray Indications: Sinobronchitis Use 2 Sprays in each nostril once daily. Rinse mouth after use. 1 Each 02/10/2024 Active 3 ml insulin aspart, human 100 unt/ml pen injector (20 sources) Insulin Analog Start: 10-08-2024 End: 03-11-2025 Start: 11-07-2022 Relion NovoLOG Flexpen 100 units/mL injectable solution See Instructions Start Date: 11/07/22 Status: Ordered Start: 02-17-2020 End: 10-08-2024 Insulin Aspart U-100 (Novolo g Flexpen U-100 Insulin) 100 unit/mL (3 mL) insulin pen Discontinued 40 U SC THREE TIMES A DAY 36 6 December 12, 2020 9:05am October 05, 2021 3:31pm Start: 10-14-2019 End: 04-28-2025 Start: 10-14-2019 End: 02-17-2020 Insulin Aspart U-100 (Novolo g Flexpen U-100 Insulin) 100 unit/mL (3 mL) insulin pen Discontinued 30 U SC THREE TIMES A DAY 30 6 January 31, 2020 1:03pm February 17, 2020 11:47am Start: 06-23-2019 insulin aspart U-100 (NOVOLOG FLEXPEN U-100 INSULIN) 100 unit/mL (3 mL) inpn Indications: 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 Plus sliding scale correction up to 32 units/day 10 Pen 5 06/23/2019 Active Start: 04-06-2019 End: 07-26-2019 Start: 04-06-2019 End: 07-26-2019 Insulin Aspart U-100 100 UNI TS/ML insulin pen Discontinued 0 [iU] SQ BEFORE MEALS AND AT BEDTIME Protocol: Custom Sliding Scale Condition: 150-200 Dose/Route: 2 Condition: 201-250 Dose/Route: 4 Condition: 251-300 Dose/Route: 6 Condition: 301-350 Dose/Route: 8 Condition: 351-400 Dose/Route: April 06, 2019 12:00am July 26, 2019 4:37pm diabetes Please contact the information source for Protocol details. Start: 04-06-2019 End: 07-26-2019 Insulin Aspart U-100 100 UNI TS/ML insulin pen Discontinued 0 [iU] SQ BEFORE MEALS AND AT BEDTIME April 06, 2019 12:00am July 26, 2019 4:37pm diabetes Please contact the information source for Protocol details. Start: 04-06-2019 End: 07-26-2019 Insulin Aspart U-100 Discont inued 0 IU SQ BEFORE MEALS AND AT BEDTIME April 06, 2019 12:00am July 26, 2019 4:37pm Start: 02-09-2018 End: 02-11-2018 Start: 02-09-2018 End: 02-11-2018 Insulin Aspart U-100 (Novolo g Flexpen U-100 Insulin) 100 unit/mL insulin pen Discontinued 0 SC EVERY EVENING February 09, 2018 12:00am February 11, 2018 12:15pm 30 units with each meal + sliding scale, up to 120 units qd SC QPM Comment on above: Inject 32 units with meals up to 100 units daily. Plus sliding scale correction up to 32 units/day 3 ml insulin glargine 100 unt/ml pen injector (20 sources) Insulin Analog Start: 05-31-2024 End: 03-11-2025 Insulin Glargine (Lantus Solostar U-100 Insulin) 100 unit/mL (3 mL) insulin pen Discontinued 40 U SC AT BEDTIME 15 October 08, 2024 9:43am March 11, 2025 9:42am Start: 10-27-2023 End: 05-31-2024 Insulin Glargine (Lantus Aria ostar U-100 Insulin) 100 unit/mL (3 mL) insulin pen Discontinued 40 U SC DAILY 45 1 March 22, 2024 9:58am May 31, 2024 10:01am Start: 11-07-2022 Lantus Solosta r Pen 100 units/mL 3 mL Pen INJECT 45 UNITS SUBCUTANEOUSLY ONCE DAILY Start Date: 11/07/22 Status: Ordered Start: 10-10-2022 End: 10-27-2023 Insulin Glargine (Lantus Aria ostar U-100 Insulin) 100 unit/mL (3 mL) insulin pen Discontinued 42 U SC DAILY 15 May 08, 2023 10:11am October 27, 2023 9:00am Start: 10-14-2019 End: 10-10-2022 Insulin Glargine (Lantus Aria ostar U-100 Insulin) 100 unit/mL (3 mL) insulin pen Discontinued 45 U SC DAILY 15 December 12, 2020 9:05am October 05, 2021 3:31pm Start: 07-26-2019 End: 10-14-2019 inject 50 [IU] by subcutaneous injection at bedtime Insulin Glargine 100 UNIT/ML insulin pen Discontinued 50 U SQ AT BEDTIME 0 0 July 26, 2019 3:26pm October 14, 2019 1:53pm blood sugar Start: 06-23-2019 End: 10-14-2019 Insulin Glargine 100 unit/mL (3 mL) insulin pen Discontinued 45 U SC AT BEDTIME October 14, 2019 1:51pm October 14, 2019 2:17pm Type 1 diabetes mellitus without complications blood sugar Start: 06-23-2019 insulin glargi ne (LANTUS SOLOSTAR, BASAGLAR KWIKPEN) 100 unit/mL (3 mL) inpn Indications: 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) Administer 45 units at bedtime 5 Pen 5 06/23/2019 Active Start: 04-06-2019 End: 03-11-2025 Start: 04-06-2019 End: 07-26-2019 inject 45 [IU] by subcutaneous injection at bedtime Insulin Glargine 100 UNIT/ML insulin pen Discontinued 45 U SQ AT BEDTIME April 06, 2019 12:00am July 26, 2019 3:26pm blood sugar Start: 02-09-2018 End: 02-11-2018 Start: 02-09-2018 End: 02-11-2018 Insulin Glargine (Domingaaglvilla kidden U-100 Insulin) 100 unit/mL (3 mL) insulin pen Discontinued 30 U SC daily February 09, 2018 12:00am February 11, 2018 12:15pm Comment on above: Administer 45 units at bedtime L.acidophilus-L.rh amnosus (PROBIOTIC) 15 billion cell capsule (8 sources) Start: 12-22-2023 take 1 capsule by mouth once daily L.acidophilus-L.r hamnosus (PROBIOTIC) 15 billion cell capsule Take 1 capsule by mouth once daily. 30 capsule 12/22/2023 Active Start: 12-22-2023 take 1 capsule by [facility] once daily L.acidophilus-L.rhamnosus (PROBIOTIC) 15 billion cell capsule Take 1 capsule by mouth once daily. 30 capsule 0 12/22/2023 Active lactobacillus combination no .4 (PROBIOTIC) 3 billion cell cap (9 sources) Start: 03-14-2023 lactobacillus combination no.4 (PROBIOTIC) 3 billion cell cap Take 1 capsule by mouth once daily. 30 capsule 03/14/2023 Active Start: 03-14-2023 lactobacillus combination no.4 (PROBIOTIC) 3 billion cell cap Take 1 capsule by mouth once daily. 30 capsule 0 03/14/2023 Active Comment on above: Take 1 capsule by [facility] once daily. meloxicam 15 mg oral tablet (2 sources) Nonsteroidal Anti-inflammatory Drug Start: 04-19-20 25 mupirocin 0.02 mg/mg topical ointment (1 source) RNA Synthetase Inhibitor Antibacterial Start: 12-20-19 End: 12-30-19 22 mupirocin (BACTROBAN) 2 % ointment Indications: Skin infection Apply to affected area three times daily for 10 days. 22 g 0 12/19/2021 12/29/2021 Active Comment on above: Apply to affected ar ea three times daily for 10 days. nitrofurantoin, macrocrystals 25 mg / nitrofurantoin, monohydrate 75 mg oral capsule (2 sources) Nitrofuran Antibacterial Start: 03-02-20 End: 03-09-20 take 1 capsule by mouth twice daily nitrofurantoin monohydrate and macrocrystal (MACROBID) 100 mg capsule Take 1 capsule by mouth two times a day for 7 days. 14 capsule 03/02/2025 03/09/2025 Active 50 ml oxacillin 40 mg/ml injection (1 source) Penicillin-class Antibacterial Start: 05-04-20 Start: 05-04-2025 oxyCODONE hydrochloride 5 mg oral tablet (1 source) Opioid Agonist Start: 05-05-2025 Start: 05-05-2025 tiZANidine 6 mg oral capsule (3 sources) Central alpha-2 Adrenergic Agonist Start: 05-09-2025 Start: 04-19-2025 End: 05-09-2025 (20 sources) Start: 05-05-2025 Start: 03-11-2025 End: 05-05-2025 Start: 02-22-2025 End: 03-11-2025 Start: 10-12-2024 Start: 10-08-2024 End: 03-11-2025 Start: 09-15-2024 End: 10-12-2024 Start: 09-13-2024 Start: 07-13-2024 End: 02-22-2025 Start: 05-13-2024 End: 07-13-2024 Start: 03-22-2024 End: 09-15-2024 Start: 12-23-2023 End: 10-08-2024 Start: 10-27-2023 End: 12-23-2023 Start: 10-27-2023 End: 12-23-2023 Start: 10-27-2023 End: 03-22-2024 Start: 05-08-2023 End: 03-22-2024 Start: 2023 End: 12-23-2023 Start: 09-06-2022 End: 05-08-2023 Start: 09-06-2022 Start: 09-06-2022 End: 2023 Start: 01-04-2022 End: 09-06-2022 Start: 01-04-2022 End: 09-06-2022 Start: 01-04-2022 End: 10-10-2022 Start: 10-08-2021 End: 10-10-2022 Start: 10-08-2021 End: 10-10-2022 Start: 10-05-2021 End: 01-04-2022 Start: 10-05-2021 Start: 02-16-2021 End: 10-05-2021 Start: 02-16-2021 End: 01-04-2022 Start: 09-07-2020 End: 10-05-2021 Start: 09-07-2020 End: 09-06-2022 Start: 08-01-2020 End: 02-16-2021 Start: 04-05-2020 End: 08-01-2020 Start: 10-14-2019 End: 04-05-2020 Start: 10-14-2019 End: 09-07-2020 Start: 08-20-2018 End: 08-20-2018 Start: 08-20-2018 End: 08-20-2018 Start: 08-20-2018 End: 08-20-2018 Start: 07-13-2018 End: 07-13-2018 Start: 02-22-2018 End: 08-20-2018 Start: 02-22-2018 End: 08-20-2018 Start: 02-11-2018 End: 07-13-2018 Start: 02-09-2018 End: 02-11-2018 Completed/Discontinued Medications Medication Drug Class(es) Dates Sig (Normalized) Sig (Original) acetaminophen 325 mg / oxyCODONE hydrochloride 5 mg oral tablet (20 sources) Opioid Agonist Start: 06-04-2024 End: 10-08-2024 Start: 06-04-2024 End: 10-08-2024 Oxycodone-Acetaminophen 5-32 5 mg tablet Discontinued 1 {tbl} PO Q8H as needed for pain 28 7 0 June 04, 2024 October 08, 2024 9:33am Other acute postprocedural pain Other acute postprocedural pain Start: 04-08-2019 End: 04-21-2019 Start: 04-08-2019 End: 04-21-2019 Oxycodone-Acetaminophen 1 TA BLET tablet Discontinued 1 {tbl} PO EVERY 6 HOURS NEEDED as needed for Pain Score 1-10/10 20 5 0 April 08, 2019 April 12, 2019 12:00am April 21, 2019 12:07am Diabetic neuropathy associated with type 1 diabetes mellitus Type 1 diabetes mellitus with diabetic neuropathy, unspecified Start: 04-08-2019 End: 04-21-2019 take 1 tablet by mouth every six hours as needed Oxycodone-Acetaminophen Discontinued 1 TABLET PO EVERY 6 HOURS NEEDED 20 5 April 08, 2019 April 21, 2019 12:07am [id number] actuat albuterol 0.09 mg/actuat metered dose inhaler (4 sources) beta2-Adrenergic Agonist Start: 11-08-2019 End: 01-23-2022 take 2 puff(s) by inhalation every four hours as needed for wheezing albuterol HFA (PROAIR HFA) 90 mcg/actuation inhaler Indications: Viral URI with cough Inhale 2 Puffs as instructed every 4 hours as needed for Wheezing/Shortness of Breath. 1 Inhaler 11/08/2019 01/23/2022 Discontinued (Discontinued by Patient) Comment on above: Inhale 2 Puffs as instructed every 4 angel rs as needed for Wheezing/Shortness of Breath. amoxicillin 875 mg / clavulanate 125 mg oral tablet (13 sources) Penicillin-class Antibacterial Start: 07-26-2019 End: 09-03-2019 Blood-Glucose Meter (Freestyle System Kit) kit (12 sources) Start: 07-13-2018 End: 07-13-2018 Blood-Glucose Meter (Freestyle System Kit) kit Discontinued 0 .ROUTE .MEDSUPPLY 1 0 July 13, 2018 1:00am July 13, 2018 2:13pm Type 1 diabetes mellitus without complications E10.9 USE TO CHECK BG 5-6 X QD Start: 07-13-2018 End: 07-13-2018 Blood-Glucose Meter (Freesty le System Kit) kit Discontinued 0 .ROUTE .MEDSUPPLY July 13, 2018 12:00am July 13, 2018 1:13pm USE TO CHECK BG 5-6 X QD Start: 07-13-2018 End: 07-13-2018 Blood-Glucose Meter (Freesty le System Kit) kit Discontinued 0 .ROUTE .MEDSUPPLY July 13, 2018 1:00am July 13, 2018 2:13pm USE TO CHECK BG 5-6 X QD Blood-Glucose Meter (True Me trix Glucose Meter) misc (12 sources) Start: 10-08-2021 End: 10-10-2022 Blood-Glucose Meter (True Metrix Glucose Meter) misc Discontinued 0 .ROUTE .MEDSUPPLY 1 0 October 08, 2021 12:00am October 10, 2022 9:33am Type 1 diabetes mellitus Type 1 diabetes mellitus with hyperglycemia As directed Start: 10-08-2021 End: 10-10-2022 Blood-Glucose Meter (True Me trix Glucose Meter) misc Discontinued 0 .ROUTE .MEDSUPPLY 1 October 07, 2021 11:00pm October 10, 2022 8:33am As directed Start: 10-08-2021 End: 10-10-2022 Blood-Glucose Meter (True Me trix Glucose Meter) misc Discontinued 0 .ROUTE .MEDSUPPLY 1 October 08, 2021 12:00am October 10, 2022 9:33am As directed Blood-Glucose Sensor (Dexcom G6 Sensor) device (8 sources) Start: 10-27-2023 End: 12-23-2023 Blood-Glucose Sensor (Dexcom G6 Sensor) device Discontinued 0 .Route 3 October 27, 2023 12:00am December 23, 2023 2:59pm As directed Start: 10-27-2023 End: 12-23-2023 Blood-Glucose Sensor (Dexcom G6 Sensor) device Discontinued 0 .Route 3 October 27, 2023 12:00am December 23, 2023 2:59pm As directed Start: 10-27-2023 Blood-Glucose Sensor (Dexcom G6 Sensor) device Active 0 .Route 3 October 27, 2023 12:00am As directed Blood-Glucose Sensor (Freest yle Monse 3 Sensor) device (20 sources) Start: 10-08-2024 End: 03-11-2025 Blood-Glucose Sensor (Freest yle Monse 3 Sensor) device Discontinued 0 .Route 2 October 08, 2024 9:44am March 11, 2025 9:31am As directed Start: 10-08-2024 Blood-Glucose Sensor (Freestyle Monse 3 Sensor) device Active 0 .Route 2 October 08, 2024 9:44am As directed Start: 12-23-2023 End: 10-08-2024 Blood-Glucose Sensor (Freest yle Monse 3 Sensor) device Discontinued 0 .Route 2 December 23, 2023 2:59pm October 08, 2024 9:46am As directed Start: 12-23-2023 End: 10-08-2024 Blood-Glucose Sensor (Freest yle Monse 3 Sensor) device Discontinued 0 .Route 2 December 23, 2023 2:59pm October 08, 2024 9:46am As directed Start: 2023 End: 12-23-2023 Blood-Glucose Sensor (Freest yle Monse 3 Sensor) device Discontinued 0 .Route 2 2023 1:01pm December 23, 2023 2:59pm As directed Start: 2023 End: 12-23-2023 Blood-Glucose Sensor (Freest yle Monse 3 Sensor) device Discontinued 0 .Route 2 2023 1:01pm December 23, 2023 2:59pm As directed Start: 2023 Blood-Glucose Sensor (Freestyle Monse 3 Sensor) device Active 0 .Route 2 2023 1:01pm As directed Start: 2023 Blood-Glucose Sensor (Freestyle Monse 3 Sensor) device Active 0 .Route 2 2023 12:01pm As directed Start: 09-06-2022 End: 2023 Blood-Glucose Sensor (Freest yle Monse 3 Sensor) device Discontinued 0 .Route 2 September 06, 2022 1:00am 2023 1:01pm As directed Start: 09-06-2022 End: 2023 Blood-Glucose Sensor (Freest yle Monse 3 Sensor) device Discontinued 0 .Route 2 September 06, 2022 1:00am 2023 1:01pm As directed Start: 09-06-2022 End: 2023 Blood-Glucose Sensor (Freest yle Monse 3 Sensor) device Discontinued 0 .Route 2 September 06, 2022 12:00am 2023 12:01pm As directed Start: 09-06-2022 Blood-Glucose Sensor (Freestyle Monse 3 Sensor) device Active 0 .Route 2 September 06, 2022 1:00am As directed Blood-Glucose Transmitter (Dexcom G6 Transmitter) device (8 sources) Start: 10-27-2023 End: 12-23-2023 Blood-Glucose Transmitter (Dexcom G6 Transmitter) device Discontinued 0 .Route 1 0 October 27, 2023 12:00am December 23, 2023 2:59pm As directed Start: 10-27-2023 End: 12-23-2023 Blood-Glucose Transmitter (D excom G6 Transmitter) device Discontinued 0 .Route 1 October 27, 2023 12:00am December 23, 2023 2:59pm As directed Start: 10-27-2023 Blood-Glucose Transmitter (Dexcom G6 Transmitter) device Active 0 .Route 1 October 27, 2023 12:00am As directed cyclobenzaprine hydrochlorid e 10 mg oral tablet (13 sources) Muscle Relaxant Start: 11-08-2024 End: 04-28-2025 doxycycline hyclate 100 mg o ral capsule (12 sources) Tetracycline-class Drug Start: 06-04-2024 End: 10-08-2024 Start: 02-10-2024 End: 02-17-2024 take 1 tablet by mouth twice daily doxycycline (VIBRA-TABS) 100 mg tablet Indications: Sinobronchitis Take 1 tablet by mouth two times a day for 7 days. 14 tablet 0 02/10/2024 02/17/2024 Active Start: 12-01-2023 End: 12-08-2023 take 1 tablet by mouth twice daily doxycycline (VIBRA-TABS) 100 mg tablet Indications: Rhinosinusitis Take 1 tablet by mouth two times a day for 7 days. 14 tablet 0 12/01/2023 12/08/2023 Active Start: 11-07-2022 End: 11-17-2022 doxycycline hyclate 100 mg o ral capsule Dose : 100 mg = 1 cap(s), Oral, BID, X 10 day(s), # 20 cap(s), 0 Refill(s), 11/17/22 15:19:00 EDT, Cellulitis Start Date: 11/07/22 Stop Date: 11/17/22 Status: Ordered Start: 12-19-2021 End: 12-29-2021 take 1 tablet by mouth twice daily doxycycline monohydrate 100 mg tablet Indications: Skin infection Take 1 tablet by mouth twice daily for 10 days. 20 tablet 0 12/19/2021 12/29/2021 Active Comment on above: Take 1 tablet by [facility] twice daily for 10 days. DULoxetine 30 mg delayed release oral capsule (17 sources) Serotonin and Norepinephrine Reuptake Inhibitor Start: 06-23-2019 End: 01-23-2022 Comment on above: Take 1 capsule by [facility] once daily. Flash Glucose Scanning [place] (Freestyle Monse 10 Day [place]) misc (12 sources) Start: 02-22-2018 End: 08-20-2018 Flash Glucose Scanning [place] (Freestyle Monse 10 Day [place]) misc Discontinued 0 .ROUTE .MEDSUPPLY 1 February 22, 2018 12:00am August 20, 2018 11:16am Type 1 diabetes mellitus with unspecified complications As directed Start: 02-22-2018 End: 08-20-2018 Flash Glucose Scanning [place] (Freestyle Monse 10 Day [place]) mis Discontinued 0 .ROUTE .MEDSUPPLY 1 February 21, 2018 11:00pm August 20, 2018 10:16am As directed Start: 02-22-2018 End: 08-20-2018 Flash Glucose Scanning [place] (Freestyle Monse 10 Day [place]) misc Discontinued 0 .ROUTE .MEDSUPPLY 1 February 22, 2018 12:00am August 20, 2018 11:16am As directed Flash Glucose Scanning [place] (Freestyle Monse 14 Day [place]) misc (20 sources) Start: 08-20-2018 End: 08-20-2018 Flash Glucose Scanning [place] (Freestyle Monse 14 Day [place]) misc Discontinued 0 .ROUTE .MEDSUPPLY 1 0 August 20, 2018 11:18am August 20, 2018 11:22am Type 1 diabetes mellitus without complications e10.9 use to check BG via sensor on back of arm Start: 08-20-2018 End: 08-20-2018 Flash Glucose Scanning [place] (Freestyle Monse 14 Day [place]) misc Discontinued 0 .ROUTE .MEDSUPPLY 1 August 20, 2018 10:18am August 20, 2018 10:22am use to check BG via sensor on back of arm Start: 08-20-2018 End: 08-20-2018 Flash Glucose Scanning [place] (Freestyle Monse 14 Day [place]) misc Discontinued 0 .ROUTE .MEDSUPPLY 1 August 20, 2018 11:18am August 20, 2018 11:22am use to check BG via sensor on back of arm Start: 08-20-2018 End: 08-20-2018 Flash Glucose Scanning [place] (Freestyle Monse 14 Day [place]) misc Discontinued 0 .ROUTE .MEDSUPPLY 1 0 August 20, 2018 1:00am August 20, 2018 11:20am Type 1 diabetes mellitus without complications use to check BG via sensor on back of arm Start: 08-20-2018 End: 08-20-2018 Flash Glucose Scanning [place] (Freestyle Monse 14 Day [place]) misc Discontinued 0 .ROUTE .MEDSUPPLY 1 August 20, 2018 12:00am August 20, 2018 10:20am use to check BG via sensor on back of arm Start: 08-20-2018 End: 08-20-2018 Flash Glucose Scanning [place] (Freestyle Monse 14 Day [place]) misc Discontinued 0 .ROUTE .MEDSUPPLY 1 August 20, 2018 1:00am August 20, 2018 11:20am use to check BG via sensor on back of arm Flash Glucose Scanning [place] (Freestyle Monse 2 [place]) misc (20 sources) Start: 01-04-2022 End: 10-10-2022 Flash Glucose Scanning [place] (Freestyle Monse 2 [place]) misc Discontinued 0 .ROUTE .MEDSUPPLY 1 0 January 04, 2022 8:32am October 10, 2022 9:32am As directed Start: 01-04-2022 End: 10-10-2022 Flash Glucose Scanning [place] (Freestyle Monse 2 [place]) misc Discontinued 0 .ROUTE .MEDSUPPLY 1 January 04, 2022 7:32am October 10, 2022 8:32am As directed Start: 01-04-2022 End: 10-10-2022 Flash Glucose Scanning [place] (Freestyle Monse 2 [place]) misc Discontinued 0 .ROUTE .MEDSUPPLY 1 January 04, 2022 8:32am October 10, 2022 9:32am As directed Start: 02-16-2021 End: 01-04-2022 Flash Glucose Scanning [place] (Freestyle Monse 2 [place]) misc Discontinued 0 .ROUTE .MEDSUPPLY 1 0 February 16, 2021 12:00am January 04, 2022 8:33am As directed Start: 02-16-2021 End: 01-04-2022 Flash Glucose Scanning [place] r (Freestyle Monse 2 [place]) misc Discontinued 0 .ROUTE .MEDSUPPLY 1 February 15, 2021 11:00pm January 04, 2022 7:33am As directed Start: 02-16-2021 End: 01-04-2022 Flash Glucose Scanning [place] r (Freestyle Monse 2 [place]) misc Discontinued 0 .ROUTE .MEDSUPPLY 1 February 16, 2021 12:00am January 04, 2022 8:33am As directed Flash Glucose Sensor (Freestyle Monse 10 Day Sensor) kit (12 sources) Start: 02-22-2018 End: 08-20-2018 Flash Glucose Sensor (Freest yle Monse 10 Day Sensor) kit Discontinued 0 .ROUTE .MEDSUPPLY 3 February 22, 2018 12:00am August 20, 2018 11:16am Type 1 diabetes mellitus with other skin complications As directed Start: 02-22-2018 End: 08-20-2018 Flash Glucose Sensor (Freest yle Monse 10 Day Sensor) kit Discontinued 0 .ROUTE .MEDSUPPLY February 21, 2018 11:00pm August 20, 2018 10:16am As directed Start: 02-22-2018 End: 08-20-2018 Flash Glucose Sensor (Freest yle Monse 10 Day Sensor) kit Discontinued 0 .ROUTE .MEDSUPPLY February 22, 2018 12:00am August 20, 2018 11:16am As directed Flash Glucose Sensor (Freestyle Monse 14 Day Sensor) kit (20 sources) Start: 08-20-2018 End: 08-20-2018 Flash Glucose Sensor (Freest yle Monse 14 Day Sensor) kit Discontinued 0 .ROUTE .MEDSUPPLY 2 August 20, 2018 11:18am August 20, 2018 11:22am Type 1 diabetes mellitus without complications e10.9 apply to back of arm to moniter BG. change q 14 days Start: 08-20-2018 End: 08-20-2018 Flash Glucose Sensor (Freest yle Monse 14 Day Sensor) kit Discontinued 0 .ROUTE .MEDSUPPLY 2 August 20, 2018 10:18am August 20, 2018 10:22am apply to back of arm to moniter BG. change q 14 days Start: 08-20-2018 End: 08-20-2018 Flash Glucose Sensor (Freest yle Monse 14 Day Sensor) kit Discontinued 0 .ROUTE .MEDSUPPLY 2 August 20, 2018 11:18am August 20, 2018 11:22am apply to back of arm to moniter BG. change q 14 days Start: 08-20-2018 End: 08-20-2018 Flash Glucose Sensor (Freest yle Monse 14 Day Sensor) kit Discontinued 0 .ROUTE .MEDSUPPLY 1 0 August 20, 2018 1:00am August 20, 2018 11:20am Type 1 diabetes mellitus without complications apply to back of arm to moniter BG. change q 14 days Start: 08-20-2018 End: 08-20-2018 Flash Glucose Sensor (Freest yle Monse 14 Day Sensor) kit Discontinued 0 .ROUTE .MEDSUPPLY 1 August 20, 2018 12:00am August 20, 2018 10:20am apply to back of arm to moniter BG. change q 14 days Start: 08-20-2018 End: 08-20-2018 Flash Glucose Sensor (Freest yle Monse 14 Day Sensor) kit Discontinued 0 .ROUTE .MEDSUPPLY 1 August 20, 2018 1:00am August 20, 2018 11:20am apply to back of arm to moniter BG. change q 14 days Flash Glucose Sensor (Freest yle Monse 2 Sensor) kit (20 sources) Start: 01-04-2022 End: 09-06-2022 Flash Glucose Sensor (Freest yle Monse 2 Sensor) kit Discontinued 0 .ROUTE .MEDSUPPLY 2 January 04, 2022 8:33am September 06, 2022 10:28am As directed Start: 01-04-2022 End: 09-06-2022 Flash Glucose Sensor (Freest yle Monse 2 Sensor) kit Discontinued 0 .ROUTE .MEDSUPPLY 2 January 04, 2022 7:33am September 06, 2022 9:28am As directed Start: 01-04-2022 End: 09-06-2022 Flash Glucose Sensor (Freest yle Monse 2 Sensor) kit Discontinued 0 .ROUTE .MEDSUPPLY 2 January 04, 2022 8:33am September 06, 2022 10:28am As directed Start: 02-16-2021 End: 01-04-2022 Flash Glucose Sensor (Freest yle Monse 2 Sensor) kit Discontinued 0 .ROUTE .MEDSUPPLY 2 February 16, 2021 12:00am January 04, 2022 8:33am As directed Start: 02-16-2021 End: 01-04-2022 Flash Glucose Sensor (Freest yle Monse 2 Sensor) kit Discontinued 0 .ROUTE .MEDSUPPLY 2 February 15, 2021 11:00pm January 04, 2022 7:33am As directed Start: 02-16-2021 End: 01-04-2022 Flash Glucose Sensor (Freest yle Monse 2 Sensor) kit Discontinued 0 .ROUTE .MEDSUPPLY 2 February 16, 2021 12:00am January 04, 2022 8:33am As directed icosapent ethyl 1000 mg oral capsule (8 sources) Start: 06-01-2024 End: 06-01-2024 3 ml insulin lispro 100 unt/ml pen injector (20 sources) Insulin Analog Start: 10-14-2019 End: 10-14-2019 Insulin Lispro 100 unit/mL insulin pen Discontinued 0 SC THREE TIMES DAILY BEFORE MEALS October 14, 2019 1:51pm October 14, 2019 2:17pm 2units per 15 glucose points calculated; sliding scale Start: 07-26-2019 End: 10-14-2019 Start: 07-26-2019 End: 10-14-2019 Insulin Lispro 100 UNIT/ML i nsulin pen Discontinued 0 U SC THREE TIMES DAILY BEFORE MEALS Protocol: - Use for Total Daily Dose of Insulin 81-120 units- Very insulin resistant or septic patientsHIGH DOSING ALGORITHM Condition: 150-209 mg/dl = 3 units Condition: 210-259 mg/dl = 6 units Condition: 260-324 mg/dl = 9 units Condition: 325-374 mg/dl = 12 units Condition: 375-409 mg/dl = 14 units Condition: 410-449 mg/dl = 16 units Condition: Greater than 449 call physician 0 July 26, 2019 1:00am October 14, 2019 1:53pm Please contact the information source for Protocol details. Start: 07-26-2019 End: 10-14-2019 Insulin Lispro 100 UNIT/ML i nsulin pen Discontinued 0 U SC THREE TIMES DAILY BEFORE MEALS 0 July 26, 2019 1:00am October 14, 2019 1:53pm Please contact the information source for Protocol details. Start: 07-26-2019 End: 10-14-2019 Insulin Lispro Discontinued 0 UNIT SC THREE TIMES DAILY BEFORE MEALS July 26, 2019 1:00am October 14, 2019 1:53pm Insulin Pump Cart,Auto,Bt-Cn tr (Omnipod 5 G6 Intro Kit (Gen 5)) cartridge (8 sources) Start: 10-27-2023 End: 03-22-2024 Insulin Pump Cart,Auto,Bt-Cn tr (Omnipod 5 G6 Intro Kit (Gen 5)) cartridge Discontinued 0 .Route 1 0 October 27, 2023 12:00am March 22, 2024 9:26am As directed Start: 10-27-2023 End: 03-22-2024 Insulin Pump Cart,Auto,Bt-Cn tr (Omnipod 5 G6 Intro Kit (Gen 5)) cartridge Discontinued 0 .Route 1 October 27, 2023 12:00am March 22, 2024 9:26am As directed Start: 10-27-2023 Insulin Pump C art,Auto,Bt-Cntr (Omnipod 5 G6 Intro Kit (Gen 5)) cartridge Active 0 .Route 1 October 27, 2023 12:00am As directed linezolid 600 mg oral tablet (13 sources) Oxazolidinone Antibacterial Start: 07-22-2019 End: 07-26-2019 naproxen 500 mg oral tablet (7 sources) Nonsteroidal Anti-inflammatory Drug Start: 01-03-2025 End: 04-28-2025 predniSONE 10 mg oral tablet (5 sources) Start: 04-04-2025 End: 04-19-2025 Start: 04-04-2025 End: 04-19-2025 take 6 tablets by mouth once Prednisone 10 mg tablets, dose pack Discontinued 0 PO per package directions 48 0 April 04, 2025 12:00am April 19, 2025 9:47am Day 1-4 take 6 tablets days 5-8 take 4 tablets days 9-12 take 2 tablets sulfamethoxazole 800 mg / trimethoprim 160 mg oral tablet (13 sources) Dihydrofolate Reductase Inhibitor Antibacterial, Sulfonamide Antimicrobial Start: 07-26-2019 End: 09-03-2019 Start: 07-26-2019 End: 09-03-2019 Sulfamethoxazole-Trimethopri m 1 TABLET tablet Discontinued 1 {tbl} PO TWICE A DAY 78 39 0 July 26, 2019 1:00am September 02, 2019 1:00am September 03, 2019 1:09am Start: 07-26-2019 End: 09-03-2019 take 1 tablet by mouth twice daily Sulfamethoxazole-Trimethoprim Discontinu ed 1 TABLET PO TWICE A DAY 78 39 July 26, 2019 1:00am September 03, 2019 1:09am varenicline 1 mg oral tablet (17 sources) Partial Cholinergic Nicotinic Agonist Start: 01-03-2025 End: 04-28-2025 Start: 11-08-2024 End: 01-03-2025 Start: 05-10-2024 End: 11-08-2024 Start: 05-10-2024 End: 01-03-2025 take 1 tablet by mouth once Varenicline Tartrate (Drew tix Starting Month Box) 0.5 mg (11)- 1 mg (42) tablets,dose pack Discontinued 0 PO per package directions 53 0 November 08, 2024 10:24am January 03, 2025 11:48am PO PER PKG DIR Varenicline Tartrate (Chantix Starting Month Box) 0.5 mg (11)- 1 mg (42) tablets,dose pack (6 sources) Start: 11-08-2024 End: 01-03-2025 take 1 tablet by mouth once Varenicline Tartrate (Chantix Starting Box) 0.5 mg (11)- 1 mg (42) tablets,dose pack Discontinued 0 PO per package directions 53 0 November 08, 2024 10:24am January 03, 2025 11:48am PO PER PKG DIR Start: 11-08-2024 End: 01-03-2025 take 1 tablet by mouth once Varenicline Tartrate (Drew tix Starting Month Box) 0.5 mg (11)- 1 mg (42) tablets,dose pack Discontinued 0 PO per package directions 53 November 08, 2024 10:24am January 03, 2025 11:48am PO PER PKG DIR Start: 11-08-2024 take 1 tablet by mouth once Va renicline Tartrate (Chantix Starting Month Box) 0.5 mg (11)- 1 mg (42) tablets,dose pack Active 0 PO per package directions 53 November 08, 2024 10:24am PO PER PKG DIR Start: 05-10-2024 End: 11-08-2024 take 1 tablet by mouth once Varenicline Tartrate (Drew tix Starting Month Box) 0.5 mg (11)- 1 mg (42) tablets,dose pack Discontinued 0 PO per package directions 53 May 10, 2024 12:00am November 08, 2024 10:24am PO PER PKG DIR Start: 05-10-2024 End: 11-08-2024 take 1 tablet by mouth once Varenicline Tartrate (Drew tix Starting Month Box) 0.5 mg (11)- 1 mg (42) tablets,dose pack Discontinued 0 PO per package directions May 10, 2024 12:00am November 08, 2024 10:24am PO PER PKG DIR Problems Active Problems Problem Classification Problem Date Documented Da te Episodic/Chronic Acute and unspecified renal failure (3 sources) Acute renal failure syndrome; Translations: [Acute kidney failure, unspecified] Onset: 05-20-2025 04-28-2025 Episodic Bacterial infection; unspecified site (4 sources) Bacteremia due to Staphylococcus aureus; Translations: [Bacteremia] Onset: 05-05-2025 05-02-2025 Episodic Chronic ulcer of skin (20 sources) Non-pressure chronic ulcer of other part of right foot with unspecified severity; Translations: [Ulcer of other part of foot] Onset: 12-30-2018 12-30-2018 Chronic Diabetes mellitus with complications (20 sources) Type 1 diabetes mellitus; Translations: [Uncontrolled type 1 diabetes mellitus with diabetic neuropathy, with long-term current use of insulin] Onset: 08-22-2005 Resolved: 03-05-2016 03-05-2016 Chronic Comment on above: Dx : age 19 Diabetes mellitus without complication (10 sources) Type 1 diabetes mellitus without complications; Translations: [Diabetes mellitus without mention of complication, type I [juvenile type], not stated as uncontrolled] 09-06-2022 Chronic Disorders of lipid metabolism (20 sources) Mixed hyperlipidemia; Translations: [Mixed hyperlipidemia] Onset: 08-22-2005 12-30-2018 Chronic Genitourinary symptoms and ill-defined conditions (2 sources) Increased frequency of urination; Translations: [Frequency of micturition] Onset: 03-02-2025 03-02-2025 Episodic Immunizations and screening for infectious disease (1 source) Suspected disease caused by 2019-nCoV; Translations: [Suspected COVID-19 virus infection] Episodic Infective arthritis and osteomyelitis (except that caused by tuberculosis or sexually transmitted disease) (20 sources) Osteomyelitis of forefoot; Translations: [Osteomyelitis, unspecified] Onset: 08-05-2019 08-05-2019 Chronic Infective arthritis and osteomyelitis (except that caused by tuberculosis or sexually transmitted disease) (2 sources) Elbow pyogenic arthritis; Translations: [Pyogenic arthritis, unspecified] Onset: 05-23-2025 04-30-2025 Episodic Miscellaneous mental health disorders (13 sources) Aerophagy; 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 Mycoses (3 sources) Onychomycosis; Translations: [Tinea unguium] Onset: 05-20-2025 04-29-2025 Episodic Nonspecific chest pain (13 sources) Chest pain; Translations: [Chest pain, unspecified] 06-12-2019 Episodic Other circulatory disease (2 sources) Low blood pressure; Translations: [Hypotension, unspecified] 04-28-2025 Episodic Other connective tissue disease (8 sources) Foot pain; Translations: [Pain in right foot] 09-24-2018 Episodic Other connective tissue disease (2 sources) Pain in left thumb; Translations: [Pain in left finger(s)] 02-25-2024 Episodic Other connective tissue disease (1 source) Pain in left foot; Translations: [Pain in left foot] 11-13-2020 Episodic Other connective tissue disease (5 sources) Pain in right foot; Translations: [Pain in right foot] 05-21-2018 Episodic Other gastrointestinal disorders (1 source) Diarrhea; Translations: [Diarrhea, unspecified] 12-22-2023 Episodic Other injuries and conditions due to external causes (13 sources) Delayed healing of wound; Translations: [Other injury of unspecified body region, subsequent encounter] 05-20-2019 Episodic Other injuries and conditions due to external causes (10 sources) Other injury of unspecified body region, subsequent encounter; Translations: [Open wound(s) (multiple) of unspecified site(s), complicated] 08-13-2023 Episodic Other nervous system disorders (8 sources) Acute postoperative pain; Translations: [Other acute postprocedural pain] 06-04-2024 Episodic Other nutritional; endocrine; and metabolic disorders (20 sources) Obesity; Translations: [Obesity, unspecified] 01-07-2022 Chronic Other nutritional; endocrine; and metabolic disorders (3 sources) Obesity, unspecified; Translations: [Obesity, unspecified] 09-06-2022 Chronic Other nutritional; endocrine; and metabolic disorders (2 sources) H/O: diabetes mellitus; Translations: [Personal history of other endocrine, nutritional and metabolic disease] 04-28-2025 Episodic Other upper respiratory infections (2 sources) Chronic sinusitis, unspecified; Translations: [Unspecified sinusitis (chronic)] 12-01-2023 Chronic Other upper respiratory infections (3 sources) Acute upper respiratory infection; Translations: [Acute upper respiratory infection, unspecified] Episodic Otitis media and related conditions (6 sources) Finding of fluid behind tympanic membrane; Translations: [Unspecified nonsuppurative otitis media, unspecified ear] 01-03-2025 Episodic Residual codes; unclassified (8 sources) Electronic cigarette user; Translations: [Other specified health status] 11-08-2024 Episodic Septicemia (except in labor) (17 sources) Sepsis; Translations: [Sepsis, unspecified organism] Onset: 05-20-2025 04-06-2019 Episodic Skin and subcutaneous tissue infections (19 sources) Infection of skin; Translations: [Local infection of the skin and subcutaneous tissue, unspecified] Onset: 11-07-2022 Episodic Spondylosis; intervertebral disc disorders; other back problems (9 sources) Degeneration of lumbar intervertebral disc; Translations: [Degenerative disc disease (DDD) of lumbar region with discogenic back pain and leg pa] Onset: 05-13-2025 04-19-2025 Chronic Spondylosis; intervertebral disc disorders; other back problems (20 sources) Acute low back pain; Translations: [Acute left-sided low back pain without sciatica] Onset: 04-19-2025 03-02-2025 Episodic Comment on above: 2011 SCIATIC PAIN Sprains and strains (9 sources) Strain of intrinsic muscle of left thumb; Translations: [Strain of intrinsic muscle, fascia and tendon of left thumb at wrist and hand level, initial encounter] Onset: 04-08-2025 02-26-2024 Episodic Substance-related disorders (17 sources) Tobacco user; Translations: [Nicotine dependence, unspecified, uncomplicated] Onset: 07-13-2010 07-13-2010 Chronic Unclassified (12 sources) Right shoulder pain; Translations: [M25.511 - Pain in right shoulder] Unclassified (1 source) Acute left-sided low back pain without sciatica; Translations: [Acute left-sided low back pain without sciatica] Onset: 03-02-2025 Unclassified (4 sources) Right shoulder pain Unclassified (4 sources) M54.9 - Dorsalgia, unspecified,M54.40 - Lumbago with sciatica, unspecified side Unclassified (1 source) M54.40 - Lumbago with sciatica, unspecified side Unclassified (1 source) M54.16 - Radiculopathy, lumbar region,M54.9 - Dorsalgia, unspecified Unclassified (1 source) Other intervertebral disc degeneration, lumbar region with discogenic back pain and lower extremity pain; Translations: [Other intervertebral disc degeneration, lumbar region with discogenic back pain and lower extremity pain] Onset: 05-13-2025 Past or Other Problems Problem Classification Problem Date Documented Date Episodic/Chronic Other non-traumatic joint disorders (10 sources) Pain in right shoulder; Translations: [Right shoulder pain] Onset: 01-03-2025 11-08-2024 Episodic Other nutritional; endocrine; and metabolic disorders (11 sources) Unintentional weight loss; Translations: [Abnormal weight loss] Onset: 08-05-2012 Resolved: 06-16-2016 06-16-2016 Episodic Results Test Name Value Interpretation Reference Range Facility Basic Metabolic Profile (BMP )on 05-24-2025 BUN/CRE 21.6 RATIO High 05-02 [facility] Comment on above: Performed By: #### L 500.3400, L100.0500, L500.2500 ####[facility] [address] [place], [place], [id number] Calcium [Mass/Vol] 9.7 mg/dL Normal 7.6-11.0 [facility] Comment on above: Performed By: #### L 500.3400, L100.0500, L500.2500 ####[facility] [address] [place], [address] Chloride [Moles/Vol] 104 mmol/L Normal 98-108 [facility] Comment on above: Performed By: #### L 500.3400, L100.0500, L500.2500 ####[facility] [address] [place], [address] CO2 [Moles/Vol] 16.2 mmol/L Low 21.0-32.0 [facility] Comment on above: Performed By: #### L 500.3400, L100.0500, L500.2500 ####[facility] [address] [place], [address] Creatinine [Mass/Vol] 1.37 mg/dL High 0.70-1.20 [facility] Comment on above: Performed By: #### L 500.3400, L100.0500, L500.2500 ####[facility] [address] [place], [address] GAP 18 High 5-15 [facility] Comment on above: Performed By: #### L 500.3400, L100.0500, L500.2500 ####[facility] [address] [place], [address] GFR/1.73 sq M.predicted among non-blacks MDRD (S/P/Bld) [Vol rate/Area] 67 mL/min/{1.73_m2} Normal >60 [facility] Comment on above: Result Comment: mL/m in/1.73m2 CKD-EPI Creatinine Equation (2020) Performed By: #### L 500.3400, L100.0500, L500.2500 ####[facility] [address] [place], [address] Glucose [Mass/Vol] 150 mg/dL High 70-99 [facility] Comment on above: Performed By: #### L 500.3400, L100.0500, L500.2500 ####[facility] [address] [place], [address] Potassium [Moles/Vol] 4.5 mmol/L Normal 3.3-5.1 [facility] Comment on above: Performed By: #### L 500.3400, L100.0500, L500.2500 ####[facility] [address] [place], [address] Sodium [Moles/Vol] 138 mmol/L Normal 133-145 [facility] Comment on above: Performed By: #### L 500.3400, L100.0500, L500.2500 ####[facility] [address] [place], [address] Urea nitrogen [Mass/Vol] 30 mg/dL High 4-19 [facility] Comment on above: Performed By: #### L 500.3400, L100.0500, L500.2500 ####[facility] [address] [place], [address] CBC-Complete Blood Cnt No Di ffon 05-24-2025 Erythrocyte distribution width (RBC) [Ratio] 13.0 % Normal 11.6-14.6 [facility] Comment on above: Performed By: #### L 500.3400, L100.0500, L500.2500 ####[facility] [address] [place], [address] Hematocrit (Bld) [Volume fraction] 38.2 % Low 40-54 [facility] Comment on above: Performed By: #### L 500.3400, L100.0500, L500.2500 ####[facility] [address] [place], [address] Hemoglobin (Bld) [Mass/Vol] 12.0 g/dL Low 13.0-16.5 [facility] Comment on above: Performed By: #### L 500.3400, L100.0500, L500.2500 ####[facility] [address] [place], [address] MCH (RBC) [Entitic mass] 27.6 pg Normal 27.0-32.0 [facility] Comment on above: Performed By: #### L 500.3400, L100.0500, L500.2500 ####[facility] [address] [place], [address] MCHC (RBC) [Mass/Vol] 31.4 g/dL Low 32-36 [facility] Comment on above: Performed By: #### L 500.3400, L100.0500, L500.2500 ####[facility] [address] [place], [address] MCV (RBC) [Entitic vol] 88.0 fL Normal 80-94 [facility] Comment on above: Performed By: #### L 500.3400, L100.0500, L500.2500 ####[facility] [address] [place], [address] Platelet mean volume (Bld) [Entitic vol] 9.4 fL Normal 6.2-12.0 [facility] Comment on above: Performed By: #### L 500.3400, L100.0500, L500.2500 ####[facility] [address] [place], [address] Platelets (Bld) [#/Vol] 512 10*3/uL High 150-450 [facility] Comment on above: Performed By: #### L 500.3400, L100.0500, L500.2500 ####[facility] [address] [place], [address] RBC (Bld) [#/Vol] 4.34 10*6/uL Low 4.6-6.2 [facility] Comment on above: Performed By: #### L 500.3400, L100.0500, L500.2500 ####[facility] [address] [place], [address] RDW SD 42.0 fl Normal 35.1-43.9 [facility] Comment on above: Performed By: #### L 500.3400, L100.0500, L500.2500 ####[facility] [address] [place], [address] WBC (Bld) [#/Vol] 9.1 10*3/uL Normal 4.4-11.0 [facility] Comment on above: Performed By: #### L 500.3400, L100.0500, L500.2500 ####[facility] [address] [place], [address] Liver Profileon 05-24-2025 Albumin [Mass/Vol] 3.5 g/dL Normal 3.5-5.0 [facility] Comment on above: Performed By: #### L 500.3400, L100.0500, L500.2500 ####[facility] [address] [place], [address] ALK PHOS 123 U/L Normal 40-129 [facility] Comment on above: Performed By: #### L 500.3400, L100.0500, L500.2500 ####[facility] [address] [place], [address] ALT [Catalytic activity/Vol] 17 U/L Normal <=46 [facility] Comment on above: Performed By: #### L 500.3400, L100.0500, L500.2500 ####[facility] [address] [place], [address] AST [Catalytic activity/Vol] 22 U/L Normal <=37 [facility] Comment on above: Performed By: #### L 500.3400, L100.0500, L500.2500 ####[facility] [address] [place], [address] Bilirubin [Mass/Vol] 0.30 mg/dL Normal 0.00-1.30 [facility] Comment on above: Performed By: #### L 500.3400, L100.0500, L500.2500 ####[facility] [address] [place], [address] Bilirubin.direct [Mass/Vol] 0.09 mg/dL Normal 0.00-0.30 [facility] Comment on above: Performed By: #### L 500.3400, L100.0500, L500.2500 ####[facility] [address] [place], [address] Globulin (S) [Mass/Vol] 2.9 g/dL Normal 2.2-4.2 [facility] Comment on above: Performed By: #### L 500.3400, L100.0500, L500.2500 ####[facility] [address] [place], [address] T PROT 6.4 g/dL Normal 5.9-8.4 [facility] Comment on above: Performed By: #### L 500.3400, L100.0500, L500.2500 ####[facility] [address] [place], [address] Basic Metabolic Profile (BMP )on 05-17-2025 BUN/CRE 17.0 RATIO Normal 10-20 [facility] Comment on above: Performed By: #### L 500.2500, L100.0500, L500.3400 ####[facility] [address] [place], [address] Calcium [Mass/Vol] 9.8 mg/dL Normal 7.6-11.0 [facility] Comment on above: Performed By: #### L 500.2500, L100.0500, L500.3400 ####[facility] [address] [place], [address] Chloride [Moles/Vol] 102 mmol/L Normal 98-108 [facility] Comment on above: Performed By: #### L 500.2500, L100.0500, L500.3400 ####[facility] [address] [place], [address] CO2 [Moles/Vol] 20.9 mmol/L Low 21.0-32.0 [facility] Comment on above: Performed By: #### L 500.2500, L100.0500, L500.3400 ####[facility] [address] [place], [address] Creatinine [Mass/Vol] 1.48 mg/dL High 0.70-1.20 [facility] Comment on above: Performed By: #### L 500.2500, L100.0500, L500.3400 ####[facility] [address] [place], [address] GAP 13 Normal 5-15 [facility] Comment on above: Performed By: #### L 500.2500, L100.0500, L500.3400 ####[facility] [address] [place], [address] GFR/1.73 sq M.predicted among non-blacks MDRD (S/P/Bld) [Vol rate/Area] 61 mL/min/{1.73_m2} Normal >60 [facility] Comment on above: Result Comment: mL/m in/1.73m2 CKD-EPI Creatinine Equation (2020) Performed By: #### L 500.2500, L100.0500, L500.3400 ####[facility] [address] [place], [address] Glucose [Mass/Vol] 245 mg/dL High 70-99 [facility] Comment on above: Performed By: #### L 500.2500, L100.0500, L500.3400 ####[facility] [address] [place], [address] Potassium [Moles/Vol] 4.9 mmol/L Normal 3.3-5.1 [facility] Comment on above: Performed By: #### L 500.2500, L100.0500, L500.3400 ####[facility] [address] [place], [address] Sodium [Moles/Vol] 136 mmol/L Normal 133-145 [facility] Comment on above: Performed By: #### L 500.2500, L100.0500, L500.3400 ####[facility] [address] [place], [address] Urea nitrogen [Mass/Vol] 25 mg/dL High 4-19 [facility] Comment on above: Performed By: #### L 500.2500, L100.0500, L500.3400 ####[facility] [address] [place], [address] CBC-Complete Blood Cnt No Di ffon 05-17-2025 Erythrocyte distribution width (RBC) [Ratio] 12.8 % Normal 11.6-14.6 [facility] Comment on above: Performed By: #### L 500.2500, L100.0500, L500.3400 ####[facility] [address] [place], [address] Hematocrit (Bld) [Volume fraction] 36.2 % Low 40-54 [facility] Comment on above: Performed By: #### L 500.2500, L100.0500, L500.3400 ####[facility] [address] [place], [address] Hemoglobin (Bld) [Mass/Vol] 11.6 g/dL Low 13.0-16.5 [facility] Comment on above: Performed By: #### L 500.2500, L100.0500, L500.3400 ####[facility] [address] [place], [address] MCH (RBC) [Entitic mass] 28.4 pg Normal 27.0-32.0 [facility] Comment on above: Performed By: #### L 500.2500, L100.0500, L500.3400 ####[facility] [address] [place], [address] MCHC (RBC) [Mass/Vol] 32.0 g/dL Normal 32-36 [facility] Comment on above: Performed By: #### L 500.2500, L100.0500, L500.3400 ####[facility] [address] [place], [address] MCV (RBC) [Entitic vol] 88.7 fL Normal 80-94 [facility] Comment on above: Performed By: #### L 500.2500, L100.0500, L500.3400 ####[facility] [address] [place], [address] Platelet mean volume (Bld) [Entitic vol] 9.9 fL Normal 6.2-12.0 [facility] Comment on above: Performed By: #### L 500.2500, L100.0500, L500.3400 ####[facility] [address] [place], [address] Platelets (Bld) [#/Vol] 615 10*3/uL High 150-450 [facility] Comment on above: Performed By: #### L 500.2500, L100.0500, L500.3400 ####[facility] [address] [place], [address] RBC (Bld) [#/Vol] 4.08 10*6/uL Low 4.6-6.2 [facility] Comment on above: Performed By: #### L 500.2500, L100.0500, L500.3400 ####[facility] [address] [place], [address] RDW SD 41.5 fl Normal 35.1-43.9 [facility] Comment on above: Performed By: #### L 500.2500, L100.0500, L500.3400 ####[facility] [address] [place], [address] WBC (Bld) [#/Vol] 13.0 10*3/uL High 4.4-11.0 [facility] Comment on above: Performed By: #### L 500.2500, L100.0500, L500.3400 ####[facility] [address] [place], [address] Liver Profileon 05-17-2025 Albumin [Mass/Vol] 3.8 g/dL Normal 3.5-5.0 [facility] Comment on above: Performed By: #### L 500.2500, L100.0500, L500.3400 ####[facility] [address] [place], [address] ALK PHOS 128 U/L Normal 40-129 [facility] Comment on above: Performed By: #### L 500.2500, L100.0500, L500.3400 ####[facility] [address] [place], [address] ALT [Catalytic activity/Vol] 17 U/L Normal <=46 [facility] Comment on above: Performed By: #### L 500.2500, L100.0500, L500.3400 ####[facility] [address] [place], [address] AST [Catalytic activity/Vol] 23 U/L Normal <=37 [facility] Comment on above: Performed By: #### L 500.2500, L100.0500, L500.3400 ####[facility] [address] [place], [address] Bilirubin [Mass/Vol] 0.43 mg/dL Normal 0.00-1.30 [facility] Comment on above: Performed By: #### L 500.2500, L100.0500, L500.3400 ####[facility] [address] [place], [address] Bilirubin.direct [Mass/Vol] 0.11 mg/dL Normal 0.00-0.30 [facility] Comment on above: Performed By: #### L 500.2500, L100.0500, L500.3400 ####[facility] [address] [place], [address] Globulin (S) [Mass/Vol] 5.3 g/dL High 2.2-4.2 [facility] Comment on above: Performed By: #### L 500.2500, L100.0500, L500.3400 ####[facility] [address] [place], [address] T PROT 9.0 g/dL High 5.9-8.4 [facility] Comment on above: Performed By: #### L 500.2500, L100.0500, L500.3400 ####[facility] [address] [place], [address] Lumbar Spine 2 or 3 Viewson 05-13-2025 Lumbar Spine 2 or 3 Views Normal [facility] Orthopedic Visit Reporton Orthopedic Visit Report Normal [facility] Anion gap in Serum or Plasma Ordered By: Deangelo Arroyo on 05-10-2025 Anion gap [Moles/Vol] 12 mmol/L 5-15 [facility] BUN/creatinine ratioOrdered By: Deangelo Arroyo on 05-10-2025 Urea nitrogen/Creatinine [Mass ratio] 19.5 mg/mg - [facility] Basic Metabolic Profile (BMP )on 05-10-2025 BUN/CRE 19.5 RATIO Normal - [facility] Comment on above: Performed By: #### L 500.3400, L100.0500, L500.2500 ####[facility] [address] [place], [address] Calcium [Mass/Vol] 9.5 mg/dL Normal 7.6-11.0 [facility] Comment on above: Performed By: #### L 500.3400, L100.0500, L500.2500 ####[facility] [address] [place], [address] Chloride [Moles/Vol] 104 mmol/L Normal 98-108 [facility] Comment on above: Performed By: #### L 500.3400, L100.0500, L500.2500 ####[facility] [address] [place], [address] CO2 [Moles/Vol] 21.0 mmol/L Normal 21.0-32.0 [facility] Comment on above: Performed By: #### L 500.3400, L100.0500, L500.2500 ####[facility] [address] [place], [address] Creatinine [Mass/Vol] 1.25 mg/dL High 0.70-1.20 [facility] Comment on above: Performed By: #### L 500.3400, L100.0500, L500.2500 ####[facility] [address] [place], [address] GAP 12 Normal 5-15 [facility] Comment on above: Performed By: #### L 500.3400, L100.0500, L500.2500 ####[facility] [address] [place], [address] GFR/1.73 sq M.predicted among non-blacks MDRD (S/P/Bld) [Vol rate/Area] 75 mL/min/{1.73_m2} Normal >60 [facility] Comment on above: Result Comment: mL/m in/1.73m2 CKD-EPI Creatinine Equation (2020) Performed By: #### L 500.3400, L100.0500, L500.2500 ####[facility] [address] [place], [address] Glucose [Mass/Vol] 121 mg/dL High 70-99 [facility] Comment on above: Performed By: #### L 500.3400, L100.0500, L500.2500 ####[facility] [address] [place], [address] Potassium [Moles/Vol] 4.5 mmol/L Normal 3.3-5.1 [facility] Comment on above: Performed By: #### L 500.3400, L100.0500, L500.2500 ####[facility] [address] [place], [address] Sodium [Moles/Vol] 137 mmol/L Normal 133-145 [facility] Comment on above: Performed By: #### L 500.3400, L100.0500, L500.2500 ####[facility] [address] [place], [address] Urea nitrogen [Mass/Vol] 24 mg/dL High 4-19 [facility] Comment on above: Performed By: #### L 500.3400, L100.0500, L500.2500 ####[facility] [address] [place], [address] Bilirubin directOrdered By: Deangelo Arroyo on 05-10-2025 Bilirubin.direct [Mass/Vol] 0.11 mg/dL 0.00-0.30 [facility] Bilirubin, totalOrdered By: Deangelo Arroyo on 05-10-2025 Bilirubin [Mass/Vol] 0.46 mg/dL 0.00-1.30 [facility] CBC-Complete Blood Cnt No Di ffon 05-10-2025 Erythrocyte distribution width (RBC) [Ratio] 12.5 % Normal 11.6-14.6 [facility] Comment on above: Performed By: #### L 500.3400, L100.0500, L500.2500 ####[facility] [address] [place], [address] Hematocrit (Bld) [Volume fraction] 33.6 % Low 40-54 [facility] Comment on above: Performed By: #### L 500.3400, L100.0500, L500.2500 ####[facility] [address] [place], [address] Hemoglobin (Bld) [Mass/Vol] 10.8 g/dL Low 13.0-16.5 [facility] Comment on above: Performed By: #### L 500.3400, L100.0500, L500.2500 ####[facility] [address] [place], [address] MCH (RBC) [Entitic mass] 28.7 pg Normal 27.0-32.0 [facility] Comment on above: Performed By: #### L 500.3400, L100.0500, L500.2500 ####[facility] [address] [place], [address] MCHC (RBC) [Mass/Vol] 32.1 g/dL Normal 32-36 [facility] Comment on above: Performed By: #### L 500.3400, L100.0500, L500.2500 ####[facility] [address] [place], [address] MCV (RBC) [Entitic vol] 89.4 fL Normal 80-94 [facility] Comment on above: Performed By: #### L 500.3400, L100.0500, L500.2500 ####[facility] [address] [place], [address] Platelet mean volume (Bld) [Entitic vol] 9.5 fL Normal 6.2-12.0 [facility] Comment on above: Performed By: #### L 500.3400, L100.0500, L500.2500 ####[facility] [address] [place], [address] Platelets (Bld) [#/Vol] 735 10*3/uL High 150-450 [facility] Comment on above: Performed By: #### L 500.3400, L100.0500, L500.2500 ####[facility] [address] [place], [address] RBC (Bld) [#/Vol] 3.76 10*6/uL Low 4.6-6.2 [facility] Comment on above: Performed By: #### L 500.3400, L100.0500, L500.2500 ####[facility] [address] [place], [address] RDW SD 40.8 fl Normal 35.1-43.9 [facility] Comment on above: Performed By: #### L 500.3400, L100.0500, L500.2500 ####[facility] [address] [place], [address] WBC (Bld) [#/Vol] 10.5 10*3/uL Normal 4.4-11.0 [facility] Comment on above: Performed By: #### L 500.3400, L100.0500, L500.2500 ####[facility] [address] [place], [address] Carbon dioxide, total [Moles /volume] in Central venous bloodOrdered By: Deangelo Arroyo on 05-10-2025 CO2 [Moles/Vol] 21.0 mmol/L 21.0-32.0 [facility] Chloride assayOrdered By: Lenka Arroyo on 05-10-2025 Chloride [Moles/Vol] 104 mmol/L 98-108 [facility] Erythrocyte distribution wid th ratioOrdered By: Deangelo Arroyo on 05-10-2025 Erythrocyte distribution width (RBC) [Ratio] 12.5 % 11.6-14.6 [facility] Erythrocyte distribution wid th standard deviationOrdered By: Deangelo Arroyo on 05-10-2025 Erythrocyte distribution width (RBC) [Ratio] 40.8 fl 35.1-43.9 [facility] Glomerular filtration rate ( GFR) estimation/1.73 sq m using serum, plasma, or whole bOrdered By: Deangelo Arroyo on 05-10-2025 GFR/1.73 sq M.predicted among non-blacks MDRD (S/P/Bld) [Vol rate/Area] 75 mL/min/{1.73_m2} >60 [facility] Hematocrit Auto (Bld) [Volum e fraction]Ordered By: Deangelo Arroyo on 05-10-2025 Hematocrit (Bld) [Volume fraction] 33.6 % Low 40-54 [facility] Hemoglobin measurementOrdere d By: Deangelo Arroyo on 05-10-2025 Hemoglobin (Bld) [Mass/Vol] 10.8 g/dL Low 13.0-16.5 [facility] Liver Profileon 05-10-2025 Albumin [Mass/Vol] 3.6 g/dL Normal 3.5-5.0 [facility] Comment on above: Performed By: #### L 500.3400, L100.0500, L500.2500 ####[facility] [address] [place], [address] ALK PHOS 103 U/L Normal 40-129 [facility] Comment on above: Performed By: #### L 500.3400, L100.0500, L500.2500 ####[facility] [address] [place], [address] ALT [Catalytic activity/Vol] 15 U/L Normal <=46 [facility] Comment on above: Performed By: #### L 500.3400, L100.0500, L500.2500 ####[facility] [address] [place], [address] AST [Catalytic activity/Vol] 18 U/L Normal <=37 [facility] Comment on above: Performed By: #### L 500.3400, L100.0500, L500.2500 ####[facility] [address] [place], [address] Bilirubin [Mass/Vol] 0.46 mg/dL Normal 0.00-1.30 [facility] Comment on above: Performed By: #### L 500.3400, L100.0500, L500.2500 ####[facility] [address] [place], [address] Bilirubin.direct [Mass/Vol] 0.11 mg/dL Normal 0.00-0.30 [facility] Comment on above: Performed By: #### L 500.3400, L100.0500, L500.2500 ####[facility] [address] [place], [address] Globulin (S) [Mass/Vol] 5.1 g/dL High 2.2-4.2 [facility] Comment on above: Performed By: #### L 500.3400, L100.0500, L500.2500 ####[facility] [address] [place], [address] T PROT 8.7 g/dL High 5.9-8.4 [facility] Comment on above: Performed By: #### L 500.3400, L100.0500, L500.2500 ####[facility] [address] [place], [address] MCV (mean corpuscular volume ) determinationOrdered By: Deangelo Arroyo on 05-10-2025 MCV (RBC) [Entitic vol] 89.4 fL 80-94 [facility] Mean corpuscular hemoglobin (MCH) determinationOrdered By: Deangelo Arroyo on 05-10-2025 MCH (RBC) [Entitic mass] 28.7 pg 27.0-32.0 [facility] No Panel InformationOrdered By: Deangelo Arroyo on 05-10-2025 18 U/L <38 [facility] Platelet countOrdered By: Lenka Arroyo on 05-10-2025 Platelets (Bld) [#/Vol] 735 10*3/uL High 150-450 [facility] Potassium measurement (mass/ volume)Ordered By: Deangelo Arroyo on 05-10-2025 Potassium (Unsp spec) [Mass/Vol] 4.5 mmol/L 3.3-5.1 [facility] RBC Auto (Bld) [#/Vol]Ordere d By: Deangelo Arroyo on 05-10-2025 RBC (Bld) [#/Vol] 3.76 10*6/uL Low 4.6-6.2 [facility] Serum creatinine measurement (mass/volume)Ordered By: Deangelo Arroyo on 05-10-2025 Creatinine [Mass/Vol] 1.25 mg/dL High 0.70-1.20 [facility] Serum globulin measurementOr dered By: Deangelo Arroyo on 05-10-2025 Globulin (S) [Mass/Vol] 5.1 g/dL High 2.2-4.2 [facility] Serum glucose measurement (m ass/volume)Ordered By: Deangelo Arroyo on 05-10-2025 Glucose [Mass/Vol] 121 mg/dL High 70-99 [facility] Serum or plasma alanine collins otransferase (ALT) measurementOrdered By: Deangelo Arroyo on 05-10-2025 ALT [Catalytic activity/Vol] 15 U/L <47 [facility] Serum or plasma albumin angela urement (mass/volume)Ordered By: Deangelo Arroyo on 05-10-2025 Albumin [Mass/Vol] 3.6 g/dL 3.5-5.0 [facility] Serum or plasma alkaline ion sphatase measurementOrdered By: Deangelo Arroyo on 05-10-2025 ALP [Catalytic activity/Vol] 103 U/L 40-129 [facility] Serum or plasma calcium angela urement (mass/volume)Ordered By: Deangelo Arroyo on 05-10-2025 Calcium [Mass/Vol] 9.5 mg/dL 7.6-11.0 [facility] Serum or plasma urea nitroge n measurement (mass/volume)Ordered By: Deangelo Arroyo on 05-10-2025 Urea nitrogen [Mass/Vol] 24 mg/dL High 4-19 [facility] Sodium levelOrdered By: Kel Arroyo on 05-10-2025 Sodium [Moles/Vol] 137 mmol/L 133-145 [facility] Total proteinOrdered By: Steven Arroyo on 05-10-2025 Protein [Mass/Vol] 8.7 g/dL High 5.9-8.4 [facility] White blood cell (WBC) count Ordered By: Deangelo Arroyo on 05-10-2025 WBC (Bld) [#/Vol] 10.5 10*3/uL 4.4-11.0 [facility] Culture, Blood (WB)on 2024 CUB No growth in 5 days. Normal [facility] Comment on above: Performed By: #### M 200.1000 ####[facility] [address] [place], [place], [address] Absolute lymphocyte countOrd ered By: Khadar Casey on 05-05-2025 Lymphocytes Auto (Unsp spec) [#/Vol] 2.18 10*3/uL 0.83-4.51 [facility] Anion gap in Serum or Plasma Ordered By: Khadar Casey on 05-05-2025 Anion gap [Moles/Vol] 11 mmol/L 5-15 [facility] Automated lymphocyte count a s percentage of total leukocytesOrdered By: Khadar Casey on 05-05-2025 Lymphocytes/100 WBC Auto (Unsp spec) 22.4 % 19-41 [facility] BUN/creatinine ratioOrdered By: Khadar Casey on 05-05-2025 Urea nitrogen/Creatinine [Mass ratio] 23.8 mg/mg High 10-20 [facility] Basic Metabolic Profile (BMP )on 05-05-2025 BUN/CRE 23.8 RATIO High 10-20 [facility] Comment on above: Performed By: #### L 100.0100, L500.2500 ####[facility] [address] [place], [address] Calcium [Mass/Vol] 9.1 mg/dL Normal 7.6-11.0 [facility] Comment on above: Performed By: #### L 100.0100, L500.2500 ####[facility] [address] [place], [address] Chloride [Moles/Vol] 99 mmol/L Normal 98-108 [facility] Comment on above: Performed By: #### L 100.0100, L500.2500 ####[facility] [address] [place], [address] CO2 [Moles/Vol] 23.0 mmol/L Normal 21.0-32.0 [facility] Comment on above: Performed By: #### L 100.0100, L500.2500 ####[facility] [address] [place], [address] Creatinine [Mass/Vol] 1.11 mg/dL Normal 0.70-1.20 [facility] Comment on above: Performed By: #### L 100.0100, L500.2500 ####[facility] [address] [place], [address] ECRCL 117.64 ml/min Normal 50-250 [facility] Comment on above: Performed By: #### L 100.0100, L500.2500 ####[facility] [address] [place], [address] GAP 11 Normal 5-15 [facility] Comment on above: Performed By: #### L 100.0100, L500.2500 ####[facility] [address] [place], [address] GFR/1.73 sq M.predicted among non-blacks MDRD (S/P/Bld) [Vol rate/Area] 86 mL/min/{1.73_m2} Normal >60 [facility] Comment on above: Result Comment: mL/m in/1.73m2 CKD-EPI Creatinine Equation (2020) Performed By: #### L 100.0100, L500.2500 ####[facility] [address] [place], [address] Glucose [Mass/Vol] 250 mg/dL High 70-99 [facility] Comment on above: Performed By: #### L 100.0100, L500.2500 ####[facility] [address] [place], [address] Potassium [Moles/Vol] 4.5 mmol/L Normal 3.3-5.1 [facility] Comment on above: Performed By: #### L 100.0100, L500.2500 ####[facility] [address] [place], [address] Sodium [Moles/Vol] 134 mmol/L Normal 133-145 [facility] Comment on above: Performed By: #### L 100.0100, L500.2500 ####[facility] [address] [place], [address] Urea nitrogen [Mass/Vol] 26 mg/dL High 4-19 [facility] Comment on above: Performed By: #### L 100.0100, L500.2500 ####[facility] [address] [place], [address] Basophil percentageOrdered B y: Khadar Casey on 05-05-2025 Basophils/100 WBC (Bld) 0.7 % 0-1 [facility] Bedside Glucoseon 05-05-2025 FINGERSTICK GLU 277 mg/dL High 74-106 [facility] Comment on above: Result Comment: SEAN VERNON OF PATIENT CARE PER NURSING PROTOCOL Performed By: #### L 501.080 ####[facility] [address] [place], [address] FINGERSTICK GLU 276 mg/dL High 74-106 [facility] Comment on above: Result Comment: SEAN VERNON OF PATIENT CARE PER NURSING PROTOCOL Performed By: #### L 501.080 ####[facility] [address] [place], [address] CBC W/Diff, Automatedon 10-2 -2024 Absolute Lymph 2.18 X10 3/uL Normal 0.83-4.51 [facility] Comment on above: Performed By: #### L 100.0100, L500.2500 ####[facility] [address] [place], [address] Absolute Neut 6.1 X10 3/uL Normal 2.0-7.7 [facility] Comment on above: Performed By: #### L 100.0100, L500.2500 ####[facility] [address] [place], [address] Basophils/100 WBC (Bld) 0.7 % Normal 0-1 [facility] Comment on above: Performed By: #### L 100.0100, L500.2500 ####[facility] [address] [place], [address] Eosinophils/100 WBC (Bld) 3.2 % Normal 0-5 [facility] Comment on above: Performed By: #### L 100.0100, L500.2500 ####[facility] [address] [place], [address] Erythrocyte distribution width (RBC) [Ratio] 12.3 % Normal 11.6-14.6 [facility] Comment on above: Performed By: #### L 100.0100, L500.2500 ####[facility] [address] [place], [address] Hematocrit (Bld) [Volume fraction] 29.9 % Low 40-54 [facility] Comment on above: Performed By: #### L 100.0100, L500.2500 ####[facility] [address] [place], [address] Hemoglobin (Bld) [Mass/Vol] 9.8 g/dL Low 13.0-16.5 [facility] Comment on above: Performed By: #### L 100.0100, L500.2500 ####[facility] [address] [place], [address] IG% 1.500 High 0.0-0.9 [facility] Comment on above: Result Comment: IG% - Immature Granulocytes (promyelocytes, myelocytes andmetamyelocytes) > 1% indicates that a LEFT SHIFT is Present. Performed By: #### L 100.0100, L500.2500 ####[facility] [address] [place], [address] Lymphocytes/100 WBC (Bld) 22.4 % Normal 19-41 [facility] Comment on above: Performed By: #### L 100.0100, L500.2500 ####[facility] [address] [place], [address] MCH (RBC) [Entitic mass] 28.2 pg Normal 27.0-32.0 [facility] Comment on above: Performed By: #### L 100.0100, L500.2500 ####[facility] [address] [place], [address] MCHC (RBC) [Mass/Vol] 32.8 g/dL Normal 32-36 [facility] Comment on above: Performed By: #### L 100.0100, L500.2500 ####[facility] [address] [place], [address] MCV (RBC) [Entitic vol] 86.2 fL Normal 80-94 [facility] Comment on above: Performed By: #### L 100.0100, L500.2500 ####[facility] [address] [place], [address] Monocytes/100 WBC (Bld) 9.2 % Normal 0-10 [facility] Comment on above: Performed By: #### L 100.0100, L500.2500 ####[facility] [address] [place], [address] Neutrophils/100 WBC (Bld) 63.0 % Normal 47-70 [facility] Comment on above: Performed By: #### L 100.0100, L500.2500 ####[facility] [address] [place], [address] Nucleated RBC (Bld) [#/Vol] 0 10*3/uL Normal 0-5 [facility] Comment on above: Performed By: #### L 100.0100, L500.2500 ####[facility] [address] [place], [address] Platelet mean volume (Bld) [Entitic vol] 9.1 fL Normal 6.2-12.0 [facility] Comment on above: Performed By: #### L 100.0100, L500.2500 ####[facility] [address] [place], [address] Platelets (Bld) [#/Vol] 569 10*3/uL High 150-450 [facility] Comment on above: Performed By: #### L 100.0100, L500.2500 ####[facility] [address] [place], [address] RBC (Bld) [#/Vol] 3.47 10*6/uL Low 4.6-6.2 [facility] Comment on above: Performed By: #### L 100.0100, L500.2500 ####[facility] [address] [place], [address] RDW SD 38.7 fl Normal 35.1-43.9 [facility] Comment on above: Performed By: #### L 100.0100, L500.2500 ####[facility] [address] [place], [address] WBC (Bld) [#/Vol] 9.8 10*3/uL Normal 4.4-11.0 [facility] Comment on above: Performed By: #### L 100.0100, L500.2500 ####[facility] [address] [place], [address] Carbon dioxide, total [Moles /volume] in Central venous bloodOrdered By: Khadar Casey on 05-05-2025 CO2 [Moles/Vol] 23.0 mmol/L 21.0-32.0 [facility] Chloride assayOrdered By: Suraj Casey on 05-05-2025 Chloride [Moles/Vol] 99 mmol/L 98-108 [facility] Eosinophil percentageOrdered By: Khadar Casey on 05-05-2025 Eosinophils/100 WBC (Bld) 3.2 % 0-5 [facility] Erythrocyte distribution wid th ratioOrdered By: Khadar Casey on 05-05-2025 Erythrocyte distribution width (RBC) [Ratio] 12.3 % 11.6-14.6 [facility] Erythrocyte distribution wid th standard deviationOrdered By: Khadar Casey on 05-05-2025 Erythrocyte distribution width (RBC) [Ratio] 38.7 fl 35.1-43.9 [facility] Glomerular filtration rate ( GFR) estimation/1.73 sq m using serum, plasma, or whole bOrdered By: Khadar Casey on 05-05-2025 GFR/1.73 sq M.predicted among non-blacks MDRD (S/P/Bld) [Vol rate/Area] 86 mL/min/{1.73_m2} >60 [facility] Glucose measurement at bedsi deOrdered By: Khadar Casey on 05-05-2025 Glucose [Mass/Vol] 277 mg/dL High 74-106 [facility] Hematocrit Auto (Bld) [Volum e fraction]Ordered By: Khadar Casey on 05-05-2025 Hematocrit (Bld) [Volume fraction] 29.9 % Low 40-54 [facility] Hemoglobin measurementOrdere d By: Khadar Casey on 05-05-2025 Hemoglobin (Bld) [Mass/Vol] 9.8 g/dL Low 13.0-16.5 [facility] Immature granulocytes/100 WB C Auto (Bld)Ordered By: Khadar Casey on 05-05-2025 Immature granulocytes/100 WBC (Bld) 1.500 % High 0.0-0.9 [facility] MCV (mean corpuscular volume ) determinationOrdered By: Khadar Casey on 05-05-2025 MCV (RBC) [Entitic vol] 86.2 fL 80-94 [facility] Mean corpuscular hemoglobin (MCH) determinationOrdered By: Khadar Casey on 05-05-2025 MCH (RBC) [Entitic mass] 28.2 pg 27.0-32.0 [facility] Monocyte percentageOrdered B y: Khadar Casey on 05-05-2025 Monocytes/100 WBC (Bld) 9.2 % 0-10 [facility] Neutrophil percentageOrdered By: Khadar Casey on 05-05-2025 Neutrophils/100 WBC (Bld) 63.0 % 47-70 [facility] Platelet countOrdered By: Suraj Casey on 05-05-2025 Platelets (Bld) [#/Vol] 569 10*3/uL High 150-450 [facility] Potassium measurement (mass/ volume)Ordered By: Khadar Casey on 05-05-2025 Potassium (Unsp spec) [Mass/Vol] 4.5 mmol/L 3.3-5.1 [facility] RBC Auto (Bld) [#/Vol]Ordere d By: Khadar Casey on 05-05-2025 RBC (Bld) [#/Vol] 3.47 10*6/uL Low 4.6-6.2 [facility] Serum creatinine measurement (mass/volume)Ordered By: Khadar Casey on 05-05-2025 Creatinine [Mass/Vol] 1.11 mg/dL 0.70-1.20 [facility] Serum glucose measurement (m ass/volume)Ordered By: Khadar Casey on 05-05-2025 Glucose [Mass/Vol] 250 mg/dL High 70-99 [facility] Serum or plasma calcium angela urement (mass/volume)Ordered By: Khadar Casey on 05-05-2025 Calcium [Mass/Vol] 9.1 mg/dL 7.6-11.0 [facility] Serum or plasma urea nitroge n measurement (mass/volume)Ordered By: Khadar Casey on 05-05-2025 Urea nitrogen [Mass/Vol] 26 mg/dL High 4-19 [facility] Sodium levelOrdered By: Khadar Casey on 05-05-2025 Sodium [Moles/Vol] 134 mmol/L 133-145 [facility] White blood cell (WBC) count Ordered By: Khadar Casey on 05-05-2025 WBC (Bld) [#/Vol] 9.8 10*3/uL 4.4-11.0 [facility] Bedside Glucoseon 05-04-2025 FINGERSTICK GLU 224 mg/dL High 74-106 [facility] Comment on above: Result Comment: SEAN GEMENT OF PATIENT CARE PER NURSING PROTOCOL Performed By: #### L 501.080 ####[facility] [address] [facility] [address] FINGERSTICK GLU 205 mg/dL High 74-106 [facility] Comment on above: Result Comment: SEAN GEMENT OF PATIENT CARE PER NURSING PROTOCOL Performed By: #### L 501.080 ####[facility] [address] [facility] [address] FINGERSTICK GLU 280 mg/dL High 74-106 [facility] Comment on above: Result Comment: SEAN GEMENT OF PATIENT CARE PER NURSING PROTOCOL Performed By: #### L 501.080 ####[facility] [address] [place], [address] FINGERSTICK GLU 204 mg/dL High [address] [facility] Comment on above: Result Comment: SEAN VERNON OF PATIENT CARE PER NURSING PROTOCOL Performed By: #### L 501.080 ####[facility] [address] [place], [address] Culture, Blood (WB)on 2024 CUB Blood cultures x2, from two different sites No growth in 5 days. Normal [facility] Comment on above: Performed By: #### M 200.1000 ####[facility] [address] [place], [address] Basic Metabolic Profile (BMP )on 05-03-2025 BUN/CRE 23.0 RATIO High 05-02 [facility] Comment on above: Performed By: #### L 500.2500, L100.0100 ####[facility] [address] [place], [address] Calcium [Mass/Vol] 9.1 mg/dL Normal 7.6-11.0 [facility] Comment on above: Performed By: #### L 500.2500, L100.0100 ####[facility] [address] [place], [address] Chloride [Moles/Vol] 101 mmol/L Normal 98-108 [facility] Comment on above: Performed By: #### L 500.2500, L100.0100 ####[facility] [address] [place], [address] CO2 [Moles/Vol] 25.1 mmol/L Normal 21.0-32.0 [facility] Comment on above: Performed By: #### L 500.2500, L100.0100 ####[facility] [address] [place], [address] Creatinine [Mass/Vol] 1.02 mg/dL Normal 0.70-1.20 [facility] Comment on above: Performed By: #### L 500.2500, L100.0100 ####[facility] [address] [place], [address] ECRCL 127.70 ml/min Normal 50-250 [facility] Comment on above: Performed By: #### L 500.2500, L100.0100 ####[facility] [address] [place], [address] GAP 9 Normal 5-15 [facility] Comment on above: Performed By: #### L 500.2500, L100.0100 ####[facility] [address] [place], [address] GFR/1.73 sq M.predicted among non-blacks MDRD (S/P/Bld) [Vol rate/Area] 95 mL/min/{1.73_m2} Normal >60 [facility] Comment on above: Result Comment: mL/m in/1.73m2 CKD-EPI Creatinine Equation (2020) Performed By: #### L 500.2500, L100.0100 ####[facility] [address] [place], [address] Glucose [Mass/Vol] 173 mg/dL High 70-99 [facility] Comment on above: Performed By: #### L 500.2500, L100.0100 ####[facility] [address] [place], [address] Potassium [Moles/Vol] 4.4 mmol/L Normal 3.3-5.1 [facility] Comment on above: Performed By: #### L 500.2500, L100.0100 ####[facility] [address] [place], [address] Sodium [Moles/Vol] 135 mmol/L Normal 133-145 [facility] Comment on above: Performed By: #### L 500.2500, L100.0100 ####[facility] [address] [place], [address] Urea nitrogen [Mass/Vol] 24 mg/dL High 4-19 [facility] Comment on above: Performed By: #### L 500.2500, L100.0100 ####[facility] [address] [place], [address] Bedside Glucoseon 05-03-2025 FINGERSTICK GLU 262 mg/dL High 74-106 [facility] Comment on above: Result Comment: SEAN GEMENT OF PATIENT CARE PER NURSING PROTOCOL Performed By: #### L 501.080 ####[facility] [address] [place], [address] FINGERSTICK GLU 187 mg/dL High 74-106 [facility] Comment on above: Result Comment: SEAN GEMENT OF PATIENT CARE PER NURSING PROTOCOL Performed By: #### L 501.080 ####[facility] [address] [place], [address] FINGERSTICK GLU 162 mg/dL High 74-106 [facility] Comment on above: Result Comment: SEAN GEMENT OF PATIENT CARE PER NURSING PROTOCOL Performed By: #### L 501.080 ####[facility] [address] [place], [address] FINGERSTICK GLU 184 mg/dL High 74-106 [facility] Comment on above: Result Comment: SEAN GEMENT OF PATIENT CARE PER NURSING PROTOCOL Performed By: #### L 501.080 ####[facility] [address] [place], [address] Blood cultureOrdered By: Steven Arroyo on 05-03-2025 Bacteria identified Cx Nom (Bld) No growth in 5 days. [facility] CBC W/Diff, Automatedon 10-2 Absolute Lymph 1.45 X10 3/uL Normal 0.83-4.51 [facility] Comment on above: Performed By: #### L 500.2500, L100.0100 ####[facility] [address] [place], [address] Absolute Neut 5.6 X10 3/uL Normal 2.0-7.7 [facility] Comment on above: Performed By: #### L 500.2500, L100.0100 ####[facility] [address] [place], [address] Basophils/100 WBC (Bld) 0.6 % Normal 0-1 [facility] Comment on above: Performed By: #### L 500.2500, L100.0100 ####[facility] [address] [place], [address] Eosinophils/100 WBC (Bld) 3.9 % Normal 0-5 [facility] Comment on above: Performed By: #### L 500.2500, L100.0100 ####[facility] [address] [place], [address] Erythrocyte distribution width (RBC) [Ratio] 12.3 % Normal 11.6-14.6 [facility] Comment on above: Performed By: #### L 500.2500, L100.0100 ####[facility] [address] [place], [address] Hematocrit (Bld) [Volume fraction] 26.6 % Low 40-54 [facility] Comment on above: Performed By: #### L 500.2500, L100.0100 ####[facility] [address] [place], [address] Hemoglobin (Bld) [Mass/Vol] 8.7 g/dL Low 13.0-16.5 [facility] Comment on above: Performed By: #### L 500.2500, L100.0100 ####[facility] [address] [place], [address] IG% 0.800 Normal 0.0-0.9 [facility] Comment on above: Result Comment: IG% - Immature Granulocytes (promyelocytes, myelocytes andmetamyelocytes) > 1% indicates that a LEFT SHIFT is Present. Performed By: #### L 500.2500, L100.0100 ####[facility] [address] [place], [address] Lymphocytes/100 WBC (Bld) 17.5 % Low 19-41 [facility] Comment on above: Performed By: #### L 500.2500, L100.0100 ####[facility] [address] [place], [address] MCH (RBC) [Entitic mass] 28.4 pg Normal 27.0-32.0 [facility] Comment on above: Performed By: #### L 500.2500, L100.0100 ####[facility] [address] [place], [address] MCHC (RBC) [Mass/Vol] 32.7 g/dL Normal 32-36 [facility] Comment on above: Performed By: #### L 500.2500, L100.0100 ####[facility] [address] [place], [address] MCV (RBC) [Entitic vol] 86.9 fL Normal 80-94 [facility] Comment on above: Performed By: #### L 500.2500, L100.0100 ####[facility] [address] [place], [address] Monocytes/100 WBC (Bld) 9.1 % Normal 0-10 [facility] Comment on above: Performed By: #### L 500.2500, L100.0100 ####[facility] [address] [place], [address] Neutrophils/100 WBC (Bld) 68.1 % Normal 47-70 [facility] Comment on above: Performed By: #### L 500.2500, L100.0100 ####[facility] [address] [place], [address] Nucleated RBC (Bld) [#/Vol] 0 10*3/uL Normal 0-5 [facility] Comment on above: Performed By: #### L 500.2500, L100.0100 ####[facility] [address] [place], [address] Platelet mean volume (Bld) [Entitic vol] 9.2 fL Normal 6.2-12.0 [facility] Comment on above: Performed By: #### L 500.2500, L100.0100 ####[facility] [address] [place], [address] Platelets (Bld) [#/Vol] 486 10*3/uL High 150-450 [facility] Comment on above: Performed By: #### L 500.2500, L100.0100 ####[facility] [address] [place], [address] RBC (Bld) [#/Vol] 3.06 10*6/uL Low 4.6-6.2 [facility] Comment on above: Performed By: #### L 500.2500, L100.0100 ####[facility] [address] [place], [address] RDW SD 39.5 fl Normal 35.1-43.9 [facility] Comment on above: Performed By: #### L 500.2500, L100.0100 ####[facility] [address] [place], [address] WBC (Bld) [#/Vol] 8.3 10*3/uL Normal 4.4-11.0 [facility] Comment on above: Performed By: #### L 500.2500, L100.0100 ####[facility] [address] [place], [address] Toe(s) Min 2 Viewson 10-21-2 025 Toe(s) Min 2 Views Normal [facility] Basic Metabolic Profile (BMP )on 05-02-2025 BUN/CRE 20.4 RATIO High -20 [facility] Comment on above: Performed By: #### L 500.2500, L100.0100 ####[facility] [address] [place], [address] Calcium [Mass/Vol] 9.0 mg/dL Normal 7.6-11.0 [facility] Comment on above: Performed By: #### L 500.2500, L100.0100 ####[facility] [address] [place], [address] Chloride [Moles/Vol] 100 mmol/L Normal 98-108 [facility] Comment on above: Performed By: #### L 500.2500, L100.0100 ####[facility] [address] [place], [address] CO2 [Moles/Vol] 24.4 mmol/L Normal 21.0-32.0 [facility] Comment on above: Performed By: #### L 500.2500, L100.0100 ####[facility] [address] [place], [address] Creatinine [Mass/Vol] 0.99 mg/dL Normal 0.70-1.20 [facility] Comment on above: Performed By: #### L 500.2500, L100.0100 ####[facility] [address] [place], [address] ECRCL 131.96 ml/min Normal 50-250 [facility] Comment on above: Performed By: #### L 500.2500, L100.0100 ####[facility] [address] [place], [address] GAP 10 Normal 5-15 [facility] Comment on above: Performed By: #### L 500.2500, L100.0100 ####[facility] [address] [place], [address] GFR/1.73 sq M.predicted among non-blacks MDRD (S/P/Bld) [Vol rate/Area] 99 mL/min/{1.73_m2} Normal >60 [facility] Comment on above: Result Comment: mL/m in/1.73m2 CKD-EPI Creatinine Equation (2020) Performed By: #### L 500.2500, L100.0100 ####[facility] [address] [place], [address] Glucose [Mass/Vol] 156 mg/dL High 70-99 [facility] Comment on above: Performed By: #### L 500.2500, L100.0100 ####[facility] [address] [place], [address] Potassium [Moles/Vol] 4.3 mmol/L Normal 3.3-5.1 [facility] Comment on above: Performed By: #### L 500.2500, L100.0100 ####[facility] [address] [place], [address] Sodium [Moles/Vol] 135 mmol/L Normal 133-145 [facility] Comment on above: Performed By: #### L 500.2500, L100.0100 ####[facility] [address] [place], [address] Urea nitrogen [Mass/Vol] 20 mg/dL High 4-19 [facility] Comment on above: Performed By: #### L 500.2500, L100.0100 ####[facility] [address] [place], [address] Bedside Glucoseon 05-02-2025 FINGERSTICK GLU 385 mg/dL High 74-106 [facility] Comment on above: Result Comment: SEAN GEMENT OF PATIENT CARE PER NURSING PROTOCOL Performed By: #### L 501.080 ####[facility] [address] [place], [address] FINGERSTICK GLU 315 mg/dL High 74-106 [facility] Comment on above: Result Comment: SEAN GEMENT OF PATIENT CARE PER NURSING PROTOCOL Performed By: #### L 501.080 ####[facility] [address] [place], [address] FINGERSTICK GLU 247 mg/dL High 74-106 [facility] Comment on above: Result Comment: SEAN GEMENT OF PATIENT CARE PER NURSING PROTOCOL Performed By: #### L 501.080 ####[facility] [address] [place], [address] FINGERSTICK GLU 128 mg/dL High 74-106 [facility] Comment on above: Result Comment: SEAN GEMENT OF PATIENT CARE PER NURSING PROTOCOL Performed By: #### L 501.080 ####[facility] [address] [place], [address] CBC W/Diff, Automatedon 10-2 0-2025 Absolute Lymph 1.72 X10 3/uL Normal 0.83-4.51 [facility] Comment on above: Performed By: #### L 500.2500, L100.0100 ####[facility] [address] [place], [address] Absolute Neut 5.3 X10 3/uL Normal 2.0-7.7 [facility] Comment on above: Performed By: #### L 500.2500, L100.0100 ####[facility] [address] [place], [address] Basophils/100 WBC (Bld) 0.5 % Normal 0-1 [facility] Comment on above: Performed By: #### L 500.2500, L100.0100 ####[facility] [address] [place], [address] Eosinophils/100 WBC (Bld) 4.0 % Normal 0-5 [facility] Comment on above: Performed By: #### L 500.2500, L100.0100 ####[facility] [address] [place], [address] Erythrocyte distribution width (RBC) [Ratio] 12.1 % Normal 11.6-14.6 [facility] Comment on above: Performed By: #### L 500.2500, L100.0100 ####[facility] [address] [place], [address] Hematocrit (Bld) [Volume fraction] 28.3 % Low 40-54 [facility] Comment on above: Performed By: #### L 500.2500, L100.0100 ####[facility] [address] [place], [address] Hemoglobin (Bld) [Mass/Vol] 9.4 g/dL Low 13.0-16.5 [facility] Comment on above: Performed By: #### L 500.2500, L100.0100 ####[facility] [address] [place], [address] IG% 0.600 Normal 0.0-0.9 [facility] Comment on above: Result Comment: IG% - Immature Granulocytes (promyelocytes, myelocytes andmetamyelocytes) > 1% indicates that a LEFT SHIFT is Present. Performed By: #### L 500.2500, L100.0100 ####[facility] [address] [place], [address] Lymphocytes/100 WBC (Bld) 21.3 % Normal 19-41 [facility] Comment on above: Performed By: #### L 500.2500, L100.0100 ####[facility] [address] [place], [address] MCH (RBC) [Entitic mass] 28.1 pg Normal 27.0-32.0 [facility] Comment on above: Performed By: #### L 500.2500, L100.0100 ####[facility] [address] [place], [address] MCHC (RBC) [Mass/Vol] 33.2 g/dL Normal 32-36 [facility] Comment on above: Performed By: #### L 500.2500, L100.0100 ####[facility] [address] [place], [address] MCV (RBC) [Entitic vol] 84.7 fL Normal 80-94 [facility] Comment on above: Performed By: #### L 500.2500, L100.0100 ####[facility] [address] [place], [address] Monocytes/100 WBC (Bld) 8.1 % Normal 0-10 [facility] Comment on above: Performed By: #### L 500.2500, L100.0100 ####[facility] [address] [place], [address] Neutrophils/100 WBC (Bld) 65.5 % Normal 47-70 [facility] Comment on above: Performed By: #### L 500.2500, L100.0100 ####[facility] [address] [place], [address] Nucleated RBC (Bld) [#/Vol] 0 10*3/uL Normal 0-5 [facility] Comment on above: Performed By: #### L 500.2500, L100.0100 ####[facility] [address] [place], [address] Platelet mean volume (Bld) [Entitic vol] 9.1 fL Normal 6.2-12.0 [facility] Comment on above: Performed By: #### L 500.2500, L100.0100 ####[facility] [address] [place], [address] Platelets (Bld) [#/Vol] 453 10*3/uL High 150-450 [facility] Comment on above: Performed By: #### L 500.2500, L100.0100 ####[facility] [address] [place], [address] RBC (Bld) [#/Vol] 3.34 10*6/uL Low 4.6-6.2 [facility] Comment on above: Performed By: #### L 500.2500, L100.0100 ####[facility] [address] [place], [address] RDW SD 37.1 fl Normal 35.1-43.9 [facility] Comment on above: Performed By: #### L 500.2500, L100.0100 ####[facility] [address] [place], [address] WBC (Bld) [#/Vol] 8.1 10*3/uL Normal 4.4-11.0 [facility] Comment on above: Performed By: #### L 500.2500, L100.0100 ####[facility] [address] [place], [address] Culture, Anaerobic Any Sourc tomeka 05-02-2025 CUAN Unasyn and Vancomycin Lt elbow joint aspirate No anaerobic bacteria isolated. [facility] Comment on above: Performed By: #### M 100.2900, M100.2000, M100.4001 ####[facility] [address] [place], [address] Culture, Blood (WB)on 2024 CUB Normal [facility] Comment on above: Performed By: #### L 503.6005, L500.4050, L100.0100, M100.636, L501.6710, L300.4310, M200.1000, L300.3900, L101.9900 ####[facility] [address] [place], [address] Echocardiogram study reportO rdered By: Mahendra Shankar on 05-02-2025 Study report [facility] Work Phone: [phone] Serum or plasma vancomycin m easurement (mass/volume)Ordered By: Kristin Hernandes on 05-02-2025 Vancomycin [Mass/Vol] 14.8 ug/mL 0.0-15.0 [facility] Synovial Fluid RBC, WBC AND Diffon 05-02-2025 PATH COM/SYFL Reviewed Normal [facility] Comment on above: Order Comment: Comme nts: Lt elbow joint Result Comment: NO S IGNIFICANT INFLAMMATION OBSERVED.Melinda Duran MD 05/02/2025 AMENDED REPORT 05/02/25 1157 PATH COM/SYFL previously reported as: May follow Performed By: #### L 200.0400 ####[facility] [address] [place], [address] Vancomycin, Random Levelon 1 VANCO, RANDOM 14.8 ug/mL Normal 0.0-15.0 [facility] Comment on above: Result Comment: VANC OMYCIN STANDARD DRUG THERAPY: CRITICAL VALUE IS > 15.0 mg/LVANCOMYCIN HIGH INTENSITY THERAPY: CRITICAL VALUE IS > 20.0 mg/LPLEASE CONTACT PHARMACY SERVICES (#7085) FOR INTERPRETATIONOF RESULTS. THIS RESULT DOES NOT REPRESENT A PEAK OR TROUGHLEVEL FOR THIS DRUG. Performed By: #### L 501.8850 ####[facility] [address] [place], [place], [address] Wound Cultureon 05-02-2025 WC Normal [facility] Comment on above: Performed By: #### M 100.3000, M100.2000 ####[facility] [address] [place], [place], [id number] Basic Metabolic Profile (BMP )on 05-01-2025 BUN/CRE 19.5 RATIO Normal 05-02 [facility] Comment on above: Performed By: #### L 500.2500, L100.0100 ####[facility] [address] [place], [address] Calcium [Mass/Vol] 8.8 mg/dL Normal 7.6-11.0 [facility] Comment on above: Performed By: #### L 500.2500, L100.0100 ####[facility] [address] [place], [address] Chloride [Moles/Vol] 101 mmol/L Normal 98-108 [facility] Comment on above: Performed By: #### L 500.2500, L100.0100 ####[facility] [address] [place], [address] CO2 [Moles/Vol] 22.9 mmol/L Normal 21.0-32.0 [facility] Comment on above: Performed By: #### L 500.2500, L100.0100 ####[facility] [address] [place], [address] Creatinine [Mass/Vol] 0.98 mg/dL Normal 0.70-1.20 [facility] Comment on above: Performed By: #### L 500.2500, L100.0100 ####[facility] [address] [place], [address] ECRCL 133.30 ml/min Normal 50-250 [facility] Comment on above: Performed By: #### L 500.2500, L100.0100 ####[facility] [address] [place], [address] GAP 9 Normal 5-15 [facility] Comment on above: Performed By: #### L 500.2500, L100.0100 ####[facility] [address] [place], [address] GFR/1.73 sq M.predicted among non-blacks MDRD (S/P/Bld) [Vol rate/Area] 100 mL/min/{1.73_m2} Normal >60 [facility] Comment on above: Result Comment: mL/m in/1.73m2 CKD-EPI Creatinine Equation (2020) Performed By: #### L 500.2500, L100.0100 ####[facility] [address] [place], [address] Glucose [Mass/Vol] 238 mg/dL High 70-99 [facility] Comment on above: Performed By: #### L 500.2500, L100.0100 ####[facility] [address] [place], [address] Potassium [Moles/Vol] 3.9 mmol/L Normal 3.3-5.1 [facility] Comment on above: Performed By: #### L 500.2500, L100.0100 ####[facility] [address] [place], [address] Sodium [Moles/Vol] 133 mmol/L Normal 133-145 [facility] Comment on above: Performed By: #### L 500.2500, L100.0100 ####[facility] [address] [place], [address] Urea nitrogen [Mass/Vol] 19 mg/dL Normal 4-19 [facility] Comment on above: Performed By: #### L 500.2500, L100.0100 ####[facility] [address] [place], [address] Bedside Glucoseon 05-01-2025 FINGERSTICK GLU 288 mg/dL High 74-106 [facility] Comment on above: Result Comment: SEAN GEMENT OF PATIENT CARE PER NURSING PROTOCOL Performed By: #### L 501.080 ####[facility] [address] [place], [address] FINGERSTICK GLU 278 mg/dL High 74-106 [facility] Comment on above: Result Comment: SEAN GEMENT OF PATIENT CARE PER NURSING PROTOCOL Performed By: #### L 501.080 ####[facility] [address] [place], [address] FINGERSTICK GLU 199 mg/dL High 74-106 [facility] Comment on above: Result Comment: SEAN GEMENT OF PATIENT CARE PER NURSING PROTOCOL Performed By: #### L 501.080 ####[facility] [address] [place], [address] FINGERSTICK GLU 222 mg/dL High 74-106 [facility] Comment on above: Result Comment: SEAN GEMENT OF PATIENT CARE PER NURSING PROTOCOL Performed By: #### L 501.080 ####[facility] [address] [place], [address] Blood cultureOrdered By: Mathew Zamora on 05-01-2025 Bacteria identified Cx Nom (Bld) No growth in 5 days. [facility] Bacteria identified Cx Nom (Bld) No growth in 5 days. [facility] Body Fluid Culton 05-01-2025 BFC Unasyn and Vancomycin Lt elbow joint aspirate Culture exhibits no growth. Normal [facility] Comment on above: Performed By: #### M 100.2900, M100.2000, M100.4001 ####[facility] [address] [place], [address] CBC W/Diff, Automatedon 04-13 Absolute Lymph 1.67 X10 3/uL Normal 0.83-4.51 [facility] Comment on above: Performed By: #### L 500.2500, L100.0100 ####[facility] [address] [place], [address] Absolute Neut 3.7 X10 3/uL Normal 2.0-7.7 [facility] Comment on above: Performed By: #### L 500.2500, L100.0100 ####[facility] [address] [place], [address] Basophils/100 WBC (Bld) 0.3 % Normal 0-1 [facility] Comment on above: Performed By: #### L 500.2500, L100.0100 ####[facility] [address] [place], [address] Eosinophils/100 WBC (Bld) 3.9 % Normal 0-5 [facility] Comment on above: Performed By: #### L 500.2500, L100.0100 ####[facility] [address] [place], [address] Erythrocyte distribution width (RBC) [Ratio] 12.1 % Normal 11.6-14.6 [facility] Comment on above: Performed By: #### L 500.2500, L100.0100 ####[facility] [address] [place], [address] Hematocrit (Bld) [Volume fraction] 26.0 % Low 40-54 [facility] Comment on above: Performed By: #### L 500.2500, L100.0100 ####[facility] [address] [place], [address] Hemoglobin (Bld) [Mass/Vol] 8.8 g/dL Low 13.0-16.5 [facility] Comment on above: Performed By: #### L 500.2500, L100.0100 ####[facility] [address] [place], [address] IG% 0.500 Normal 0.0-0.9 [facility] Comment on above: Result Comment: IG% - Immature Granulocytes (promyelocytes, myelocytes andmetamyelocytes) > 1% indicates that a LEFT SHIFT is Present. Performed By: #### L 500.2500, L100.0100 ####[facility] [address] [place], [address] Lymphocytes/100 WBC (Bld) 26.4 % Normal 19-41 [facility] Comment on above: Performed By: #### L 500.2500, L100.0100 ####[facility] [address] [place], [address] MCH (RBC) [Entitic mass] 28.9 pg Normal 27.0-32.0 [facility] Comment on above: Performed By: #### L 500.2500, L100.0100 ####[facility] [address] [place], [address] MCHC (RBC) [Mass/Vol] 33.8 g/dL Normal 32-36 [facility] Comment on above: Performed By: #### L 500.2500, L100.0100 ####[facility] [address] [place], [address] MCV (RBC) [Entitic vol] 85.5 fL Normal 80-94 [facility] Comment on above: Performed By: #### L 500.2500, L100.0100 ####[facility] [address] [place], [address] Monocytes/100 WBC (Bld) 10.0 % Normal 0-10 [facility] Comment on above: Performed By: #### L 500.2500, L100.0100 ####[facility] [address] [place], [address] Neutrophils/100 WBC (Bld) 58.9 % Normal 47-70 [facility] Comment on above: Performed By: #### L 500.2500, L100.0100 ####[facility] [address] [place], [address] Nucleated RBC (Bld) [#/Vol] 0 10*3/uL Normal 0-5 [facility] Comment on above: Performed By: #### L 500.2500, L100.0100 ####[facility] [address] [place], [address] Platelet mean volume (Bld) [Entitic vol] 9.4 fL Normal 6.2-12.0 [facility] Comment on above: Performed By: #### L 500.2500, L100.0100 ####[facility] [address] [place], [address] Platelets (Bld) [#/Vol] 307 10*3/uL Normal 150-450 [facility] Comment on above: Performed By: #### L 500.2500, L100.0100 ####[facility] [address] [place], [address] RBC (Bld) [#/Vol] 3.04 10*6/uL Low 4.6-6.2 [facility] Comment on above: Performed By: #### L 500.2500, L100.0100 ####[facility] [address] [place], [address] RDW SD 37.7 fl Normal 35.1-43.9 [facility] Comment on above: Performed By: #### L 500.2500, L100.0100 ####[facility] [address] [place], [address] WBC (Bld) [#/Vol] 6.3 10*3/uL Normal 4.4-11.0 [facility] Comment on above: Performed By: #### L 500.2500, L100.0100 ####[facility] [address] [place], [address] Echo Complete W/ Contraston 05-01-2025 Echo Complete W/ Contrast Normal [facility] Trough vancomycin levelOrder ed By: Park Zamora on 05-01-2025 Vancomycin trough [Mass/Vol] 21.3 ug/mL High 5.0-15.0 [facility] Urine Cultureon 05-01-2025 URC Normal [facility] Comment on above: Performed By: #### L 400.0001, M100.2200 ####[facility] [address] [place], [address] Vancomycin, Trough Levelon 1 VANCO, TROUGH 21.3 ug/mL High 5.0-15.0 [facility] Comment on above: Order Comment: Comme nts: Trough to be drawn 30 mins prior to scheduled [id number] Result Comment: Alejandro mmended goal trough ranges are generally 10-15 mcg/mlfor less severe/complicated infections such as cellulitisor UTI and 15-20 mcg/ml for more severe/complicatedinfections such as bacteremia/sepsis, osteomyelitis,pneumonia or meningitis. Goal trough ranges should takeinto account indication, patient-specific factors andorganism TERRI.VANCOMYCIN STANDARED DRUG THERAPY TROUGH LEVEL: 5.0 - 15.0 mg/LVANCOMYCIN HIGH INTENSITY THERAPY TROUGH LEVEL: 15.0 - 20.0 mg/LHigh Intensity therapy recommended for serious lifethreatening infections include:- Uyacfuzlnh-Nzwxhbsmhdhf-Qrbpnyiof (Ventilator/Healtcare Associated)-SepsisPLEASE CONTACT PHARMACY SERVICES (#3951) FOR INTERPRETATIONOF RESULTS. Performed By: #### L 501.8820 ####[facility] [address] [place], [place], [address] Anaerobic cultureOrdered By: Gabriele Tafoya on 04-30-2025 Bacteria identified Anaer cx Nom (Unsp spec) No anaerobic bacteria isolated. [facility] Automated synovial fluid roselyn kocytes count (number/volume)Ordered By: Gabriele Tafoya on 04-30-2025 WBC Auto (Syn fld) [#/Vol] 0.0920 10^3/uL High 0.000-0.002 [facility] Automated synovial fluid mon onuclear cell count (number/volume)Ordered By: Gabriele Tafoya on 04-30-2025 Mononuclear cells Auto (Syn fld) [#/Vol] 0.086 10^3/ul [facility] Automated synovial fluid elba ymorphonuclear cell count (number/volume)Ordered By: Gabriele Tafoya on 04-30-2025 Polymorphonuclear cells Auto (Syn fld) [#/Vol] 0.006 10^3/uL [facility] Automated synovial fluid elba ymorphonuclear cells as percentage of leukocytesOrdered By: Gabriele Tafoya on 04-30-2025 Polymorphonuclear cells/100 WBC Auto (Syn fld) 6.6 % [facility] Basic Metabolic Profile (BMP )on 04-30-2025 BUN/CRE 15.6 RATIO Normal -20 [facility] Comment on above: Performed By: #### L 501.2300, L501.5200, L500.2500, L100.0100 ####[facility] [address] [place], [address] Calcium [Mass/Vol] 8.7 mg/dL Normal 7.6-11.0 [facility] Comment on above: Performed By: #### L 501.2300, L501.5200, L500.2500, L100.0100 ####[facility] [address] [place], [address] Chloride [Moles/Vol] 98 mmol/L Normal 98-108 [facility] Comment on above: Performed By: #### L 501.2300, L501.5200, L500.2500, L100.0100 ####[facility] [address] [place], [address] CO2 [Moles/Vol] 21.2 mmol/L Normal 21.0-32.0 [facility] Comment on above: Performed By: #### L 501.2300, L501.5200, L500.2500, L100.0100 ####[facility] [address] [place], [address] Creatinine [Mass/Vol] 1.19 mg/dL Normal 0.70-1.20 [facility] Comment on above: Performed By: #### L 501.2300, L501.5200, L500.2500, L100.0100 ####[facility] [address] [place], [address] ECRCL 109.78 ml/min Normal 50-250 [facility] Comment on above: Performed By: #### L 501.2300, L501.5200, L500.2500, L100.0100 ####[facility] [address] [place], [address] GAP 12 Normal 5-15 [facility] Comment on above: Performed By: #### L 501.2300, L501.5200, L500.2500, L100.0100 ####[facility] [address] [place], [address] GFR/1.73 sq M.predicted among non-blacks MDRD (S/P/Bld) [Vol rate/Area] 79 mL/min/{1.73_m2} Normal >60 [facility] Comment on above: Result Comment: mL/m in/1.73m2 CKD-EPI Creatinine Equation (2020) Performed By: #### L 501.2300, L501.5200, L500.2500, L100.0100 ####[facility] [address] [place], [address] Glucose [Mass/Vol] 254 mg/dL High 70-99 [facility] Comment on above: Performed By: #### L 501.2300, L501.5200, L500.2500, L100.0100 ####[facility] [address] [place], [address] Potassium [Moles/Vol] 4.6 mmol/L Normal 3.3-5.1 [facility] Comment on above: Performed By: #### L 501.2300, L501.5200, L500.2500, L100.0100 ####[facility] [address] [place], [address] Sodium [Moles/Vol] 131 mmol/L Low 133-145 [facility] Comment on above: Performed By: #### L 501.2300, L501.5200, L500.2500, L100.0100 ####[facility] [address] [place], [address] Urea nitrogen [Mass/Vol] 19 mg/dL Normal 4-19 [facility] Comment on above: Performed By: #### L 501.2300, L501.5200, L500.2500, L100.0100 ####[facility] [address] [place], [address] Bedside Glucoseon 04-30-2025 FINGERSTICK GLU 337 mg/dL High 74-106 [facility] Comment on above: Result Comment: SEAN GEMENT OF PATIENT CARE PER NURSING PROTOCOL Performed By: #### L 501.080 ####[facility] [address] [place], [address] FINGERSTICK GLU 288 mg/dL High [address] [place] [address] Comment on above: Result Comment: SEAN GEMENT OF PATIENT CARE PER NURSING PROTOCOL Performed By: #### L 501.080 ####[facility] [address] [place], [address] FINGERSTICK GLU 269 mg/dL High -106 [facility] Comment on above: Result Comment: SEAN GEMENT OF PATIENT CARE PER NURSING PROTOCOL Performed By: #### L 501.080 ####[facility] [address] [place], [address] FINGERSTICK GLU 235 mg/dL High 74-106 [facility] Comment on above: Result Comment: SEAN GEMENT OF PATIENT CARE PER NURSING PROTOCOL Performed By: #### L 501.080 ####[facility] [address] [place], [address] FINGERSTICK GLU 286 mg/dL High -106 [facility] Comment on above: Result Comment: SEAN GEMENT OF PATIENT CARE PER NURSING PROTOCOL Performed By: #### L 501.080 ####[facility] [address] [place], [address] Blood lymphocytes/100 leukoc ytesOrdered By: Gabriele Tafoya on 04-30-2025 Lymphocytes/100 WBC (Bld) 4 % [facility] Body fluid cultureOrdered By : Gabriele Tafoya on 04-30-2025 Microbial culture, body fluid Culture exhibits no growth. [facility] CBC W/Diff, Automatedon 10- Absolute Lymph 1.39 X10 3/uL Normal 0.83-4.51 [facility] Comment on above: Performed By: #### L 501.2300, L501.5200, L500.2500, L100.0100 ####[facility] [address] [place], [address] Absolute Neut 7.1 X10 3/uL Normal 2.0-7.7 [facility] Comment on above: Performed By: #### L 501.2300, L501.5200, L500.2500, L100.0100 ####[facility] [address] [place], [address] Basophils/100 WBC (Bld) 0.3 % Normal 0-1 [facility] Comment on above: Performed By: #### L 501.2300, L501.5200, L500.2500, L100.0100 ####[facility] [address] [place], [address] Eosinophils/100 WBC (Bld) 1.4 % Normal 0-5 [facility] Comment on above: Performed By: #### L 501.2300, L501.5200, L500.2500, L100.0100 ####[facility] [address] [place], [address] Erythrocyte distribution width (RBC) [Ratio] 12.3 % Normal 11.6-14.6 [facility] Comment on above: Performed By: #### L 501.2300, L501.5200, L500.2500, L100.0100 ####[facility] [address] [place], [address] Hematocrit (Bld) [Volume fraction] 28.2 % Low 40-54 [facility] Comment on above: Performed By: #### L 501.2300, L501.5200, L500.2500, L100.0100 ####[facility] [address] [place], [address] Hemoglobin (Bld) [Mass/Vol] 9.3 g/dL Low 13.0-16.5 [facility] Comment on above: Performed By: #### L 501.2300, L501.5200, L500.2500, L100.0100 ####[facility] [address] [place], [address] IG% 0.600 Normal 0.0-0.9 [facility] Comment on above: Result Comment: IG% - Immature Granulocytes (promyelocytes, myelocytes andmetamyelocytes) > 1% indicates that a LEFT SHIFT is Present. Performed By: #### L 501.2300, L501.5200, L500.2500, L100.0100 ####[facility] [address] [place], [address] Lymphocytes/100 WBC (Bld) 14.5 % Low 19-41 [facility] Comment on above: Performed By: #### L 501.2300, L501.5200, L500.2500, L100.0100 ####[facility] [address] [place], [address] MCH (RBC) [Entitic mass] 28.9 pg Normal 27.0-32.0 [facility] Comment on above: Performed By: #### L 501.2300, L501.5200, L500.2500, L100.0100 ####[facility] [address] [place], [address] MCHC (RBC) [Mass/Vol] 33.0 g/dL Normal 32-36 [facility] Comment on above: Performed By: #### L 501.2300, L501.5200, L500.2500, L100.0100 ####[facility] [address] [place], [address] MCV (RBC) [Entitic vol] 87.6 fL Normal 80-94 [facility] Comment on above: Performed By: #### L 501.2300, L501.5200, L500.2500, L100.0100 ####[facility] [address] [place], [address] Monocytes/100 WBC (Bld) 9.0 % Normal 0-10 [facility] Comment on above: Performed By: #### L 501.2300, L501.5200, L500.2500, L100.0100 ####[facility] [address] [place], [address] Neutrophils/100 WBC (Bld) 74.2 % High 47-70 [facility] Comment on above: Performed By: #### L 501.2300, L501.5200, L500.2500, L100.0100 ####[facility] [address] [place], [address] Nucleated RBC (Bld) [#/Vol] 0 10*3/uL Normal 0-5 [facility] Comment on above: Performed By: #### L 501.2300, L501.5200, L500.2500, L100.0100 ####[facility] [address] [place], [address] Platelet mean volume (Bld) [Entitic vol] 9.4 fL Normal 6.2-12.0 [facility] Comment on above: Performed By: #### L 501.2300, L501.5200, L500.2500, L100.0100 ####[facility] [address] [place], [address] Platelets (Bld) [#/Vol] 315 10*3/uL Normal 150-450 [facility] Comment on above: Performed By: #### L 501.2300, L501.5200, L500.2500, L100.0100 ####[facility] [address] [place], [address] RBC (Bld) [#/Vol] 3.22 10*6/uL Low 4.6-6.2 [facility] Comment on above: Performed By: #### L 501.2300, L501.5200, L500.2500, L100.0100 ####[facility] [address] [place], [address] RDW SD 39.7 fl Normal 35.1-43.9 [facility] Comment on above: Performed By: #### L 501.2300, L501.5200, L500.2500, L100.0100 ####[facility] [address] [place], [address] WBC (Bld) [#/Vol] 9.6 10*3/uL Normal 4.4-11.0 [facility] Comment on above: Performed By: #### L 501.2300, L501.5200, L500.2500, L100.0100 ####[facility] [address] [place], [address] Determination of appearance of synovial fluid (nominal result)Ordered By: Gabriele Tafoya on 04-30-2025 Appearance (Syn fld) Sl Cl CLEAR [facility] Gram Stainon 04-30-2025 GS Unasyn and Vancomycin Lt elbow joint aspirate Centrifuged Specimen? Culture performed on centrifuged specimen Gram Stain 1+ Red Blood Cells No White Blood Cells No organisms seen Normal [facility] Comment on above: Performed By: #### M 100.2900, M100.2000, M100.4001 ####[facility] [address] [place], [address] Gram stainOrdered By: Gabriele Tafoya on 04-30-2025 Microscopic observation Gram stain Nom (Unsp spec) [facility] Magnesiumon 04-30-2025 Magnesium [Mass/Vol] 1.5 mg/dL Normal 1.5-2.2 [facility] Comment on above: Performed By: #### L 501.2300, L501.5200, L500.2500, L100.0100 ####[facility] [address] [place], [address] Magnesium measurement (mass/ volume)Ordered By: Jim Burger on 04-30-2025 Magnesium (Unsp spec) [Mass/Vol] 1.5 mg/dL 1.5-2.2 [facility] Pathologist review of result s (narrative result)Ordered By: Gabriele Tafoya on 04-30-2025 Pathologist review Bronson (Unsp spec) [Interp] Reviewed [facility] Phosphoruson 04-30-2025 Phosphate [Mass/Vol] 2.4 mg/dL Low 2.7-4.5 [facility] Comment on above: Performed By: #### L 501.2300, L501.5200, L500.2500, L100.0100 ####[facility] [address] [place], [address] Procedure Reporton Procedure Report Normal [facility] Specimen source identificati on of body fluidOrdered By: Gabriele Tafoya on 04-30-2025 Specimen source Nom (Body fld) LEFT ELBOW JOINT [facility] Synovial fluid color determi nation (nominal result)Ordered By: Gabriele Tafoya on 04-30-2025 Color (Syn fld) Straw Pale Yellow [facility] Synovial fluid erythrocytes count (number/volume)Ordered By: Gabriele Tafoya on 04-30-2025 RBC (Syn fld) [#/Vol] 0.004 10^6/uL High 0-0 [facility] Synovial fluid monocyte perc entageOrdered By: Gabriele Tafoya on 04-30-2025 Monocytes/100 WBC (Syn fld) 94 % [facility] Synovial fluid mononuclear c ells/100 leukocytesOrdered By: Gabriele Tafoya on 04-30-2025 Mononuclear cells/100 WBC (Syn fld) 93.4 % [facility] Synovial fluid neutrophil pe rcentageOrdered By: Gabriele Tafoya on 04-30-2025 Neutrophils/100 WBC (Syn fld) 2 % 0-25 [facility] Synovial fluid total cell co untOrdered By: Gabriele Tafoya on 04-30-2025 Cells Counted Total (Syn fld) [#] 0.0980 10^3/uL High 0.000-0.000 [facility] Vancomycin, Trough Levelon 1 VANCO, TROUGH 18.0 ug/mL High 5.0-15.0 [facility] Comment on above: Order Comment: Comme nts: Trough to be drawn 30 mins prior to scheduled [id number] Result Comment: Alejandro mmended goal trough ranges are generally 10-15 mcg/mlfor less severe/complicated infections such as cellulitisor UTI and 15-20 mcg/ml for more severe/complicatedinfections such as bacteremia/sepsis, osteomyelitis,pneumonia or meningitis. Goal trough ranges should takeinto account indication, patient-specific factors andorganism TERRI.VANCOMYCIN STANDARED DRUG THERAPY TROUGH LEVEL: 5.0 - 15.0 mg/LVANCOMYCIN HIGH INTENSITY THERAPY TROUGH LEVEL: 15.0 - 20.0 mg/LHigh Intensity therapy recommended for serious lifethreatening infections include:- Onpwcbowfu-Zfzdxckfhafq-Yjivsuyrh (Ventilator/Healtcare Associated)-SepsisPLEASE CONTACT PHARMACY SERVICES (#5711) FOR INTERPRETATIONOF RESULTS. Performed By: #### L 501.8820 ####[facility] [address] [place], [address] Amorphous sediment detection in urine sediment by light microscopyOrdered By: Varun Gamez on 04-29-2025 Amorphous sediment LM Ql (Urine sed) 2+ [facility] GPC IDon 04-29-2025 GPC ID Normal [facility] Comment on above: Performed By: #### L 503.6005, L500.4050, L100.0100, M100.636, L501.6710, L300.4310, M200.1000, L300.3900, L101.9900 ####[facility] [address] [place], [address] Basic Metabolic Profile (BMP )on 04-29-2025 BUN/CRE 19.0 RATIO Normal 10-20 [facility] Comment on above: Performed By: #### L 500.2500, L100.0100 ####[facility] [address] [place], [address] Calcium [Mass/Vol] 7.9 mg/dL Normal 7.6-11.0 [facility] Comment on above: Performed By: #### L 500.2500, L100.0100 ####[facility] [address] [place], [address] Chloride [Moles/Vol] 101 mmol/L Normal 98-108 [facility] Comment on above: Performed By: #### L 500.2500, L100.0100 ####[facility] [address] [place], [address] CO2 [Moles/Vol] 18.2 mmol/L Low 21.0-32.0 [facility] Comment on above: Performed By: #### L 500.2500, L100.0100 ####[facility] [address] [place], [address] Creatinine [Mass/Vol] 1.56 mg/dL High 0.70-1.20 [facility] Comment on above: Performed By: #### L 500.2500, L100.0100 ####[facility] [address] [place], [address] ECRCL 83.74 ml/min Normal 50-250 [facility] Comment on above: Performed By: #### L 500.2500, L100.0100 ####[facility] [address] [place], [address] GAP 12 Normal 5-15 [facility] Comment on above: Performed By: #### L 500.2500, L100.0100 ####[facility] [address] [place], [address] GFR/1.73 sq M.predicted among non-blacks MDRD (S/P/Bld) [Vol rate/Area] 57 mL/min/{1.73_m2} Low >60 [facility] Comment on above: Result Comment: mL/m in/1.73m2 CKD-EPI Creatinine Equation (2020) Performed By: #### L 500.2500, L100.0100 ####[facility] [address] [place], [address] Glucose [Mass/Vol] 311 mg/dL High 70-99 [facility] Comment on above: Performed By: #### L 500.2500, L100.0100 ####[facility] [address] [place], [address] Potassium [Moles/Vol] 4.5 mmol/L Normal 3.3-5.1 [facility] Comment on above: Performed By: #### L 500.2500, L100.0100 ####[facility] [address] [place], [address] Sodium [Moles/Vol] 132 mmol/L Low 133-145 [facility] Comment on above: Performed By: #### L 500.2500, L100.0100 ####[facility] [address] [place], [address] Urea nitrogen [Mass/Vol] 30 mg/dL High 4-19 [facility] Comment on above: Performed By: #### L 500.2500, L100.0100 ####[facility] [address] [place], [address] Bedside Glucoseon 04-29-2025 FINGERSTICK GLU 214 mg/dL High 74-106 [facility] Comment on above: Result Comment: SEAN VERNON OF PATIENT CARE PER NURSING PROTOCOL Performed By: #### L 501.080 ####[facility] [address] [place], [address] FINGERSTICK GLU 225 mg/dL High 74-106 [facility] Comment on above: Result Comment: SEAN GEMENT OF PATIENT CARE PER NURSING PROTOCOL Performed By: #### L 501.080 ####[facility] [address] [place], [address] FINGERSTICK GLU 261 mg/dL High 74-106 [facility] Comment on above: Result Comment: SEAN GEMENT OF PATIENT CARE PER NURSING PROTOCOL Performed By: #### L 501.080 ####[facility] [address] [place], [address] Bilirubin Test strip Ql (U)O rdered By: Varun Gamez on 04-29-2025 Bilirubin Ql (U) 1 mg/dL High Negative [facility] CBC W/Diff, Automatedon 04-13 Absolute Lymph 1.44 X10 3/uL Normal 0.83-4.51 [facility] Comment on above: Performed By: #### L 500.2500, L100.0100 ####[facility] [address] [place], [address] Absolute Neut 6.2 X10 3/uL Normal 2.0-7.7 [facility] Comment on above: Performed By: #### L 500.2500, L100.0100 ####[facility] [address] [place], [address] Basophils/100 WBC (Bld) 0.5 % Normal 0-1 [facility] Comment on above: Performed By: #### L 500.2500, L100.0100 ####[facility] [address] [place], [address] Eosinophils/100 WBC (Bld) 1.7 % Normal 0-5 [facility] Comment on above: Performed By: #### L 500.2500, L100.0100 ####[facility] [address] [place], [address] Erythrocyte distribution width (RBC) [Ratio] 12.2 % Normal 11.6-14.6 [facility] Comment on above: Performed By: #### L 500.2500, L100.0100 ####[facility] [address] [place], [address] Hematocrit (Bld) [Volume fraction] 27.4 % Low 40-54 [facility] Comment on above: Performed By: #### L 500.2500, L100.0100 ####[facility] [address] [place], [address] Hemoglobin (Bld) [Mass/Vol] 9.0 g/dL Low 13.0-16.5 [facility] Comment on above: Performed By: #### L 500.2500, L100.0100 ####[facility] [address] [place], [address] IG% 0.300 Normal 0.0-0.9 [facility] Comment on above: Result Comment: IG% - Immature Granulocytes (promyelocytes, myelocytes andmetamyelocytes) > 1% indicates that a LEFT SHIFT is Present. Performed By: #### L 500.2500, L100.0100 ####[facility] [address] [place], [address] Lymphocytes/100 WBC (Bld) 16.6 % Low 19-41 [facility] Comment on above: Performed By: #### L 500.2500, L100.0100 ####[facility] [address] [place], [address] MCH (RBC) [Entitic mass] 28.5 pg Normal 27.0-32.0 [facility] Comment on above: Performed By: #### L 500.2500, L100.0100 ####[facility] [address] [place], [address] MCHC (RBC) [Mass/Vol] 32.8 g/dL Normal 32-36 [facility] Comment on above: Performed By: #### L 500.2500, L100.0100 ####[facility] [address] [place], [address] MCV (RBC) [Entitic vol] 86.7 fL Normal 80-94 [facility] Comment on above: Performed By: #### L 500.2500, L100.0100 ####[facility] [address] [place], [address] Monocytes/100 WBC (Bld) 9.2 % Normal 0-10 [facility] Comment on above: Performed By: #### L 500.2500, L100.0100 ####[facility] [address] [place], [address] Neutrophils/100 WBC (Bld) 71.7 % High 47-70 [facility] Comment on above: Performed By: #### L 500.2500, L100.0100 ####[facility] [address] [place], [address] Nucleated RBC (Bld) [#/Vol] 0 10*3/uL Normal 0-5 [facility] Comment on above: Performed By: #### L 500.2500, L100.0100 ####[facility] [address] [place], [address] Platelet mean volume (Bld) [Entitic vol] 9.3 fL Normal 6.2-12.0 [facility] Comment on above: Performed By: #### L 500.2500, L100.0100 ####[facility] [address] [place], [address] Platelets (Bld) [#/Vol] 293 10*3/uL Normal 150-450 [facility] Comment on above: Performed By: #### L 500.2500, L100.0100 ####[facility] [address] [place], [address] RBC (Bld) [#/Vol] 3.16 10*6/uL Low 4.6-6.2 [facility] Comment on above: Performed By: #### L 500.2500, L100.0100 ####[facility] [address] [place], [address] RDW SD 39.0 fl Normal 35.1-43.9 [facility] Comment on above: Performed By: #### L 500.2500, L100.0100 ####[facility] [address] [place], [address] WBC (Bld) [#/Vol] 8.7 10*3/uL Normal 4.4-11.0 [facility] Comment on above: Performed By: #### L 500.2500, L100.0100 ####[facility] [address] [place], [address] Consultation - Infectious Dx on 04-29-2025 Consultation - Infectious Dx Normal [facility] Consultation - Orthopedicson 04-29-2025 Consultation - Orthopedics Normal [facility] Electrocardiogram reportOrde red By: Mahendra Shankar on 04-29-2025 EKG study [facility] Work Phone: Extremity Upper without Cont raon 04-29-2025 Extremity Upper without Contra Normal [facility] Ferritinon 04-29-2025 Ferritin [Mass/Vol] 688 ng/mL High 37-417 [facility] Comment on above: Performed By: #### L 503.6030, L100.9950, L503.6550, L503.0106 ####[facility] [address] [place], [address] Gram Stainon 04-29-2025 GS right 2nd toe Gram Stain Rare Gram positive cocci Rare Epithelial cells Normal [facility] Comment on above: Performed By: #### M 100.3000, M100.2000 ####[facility] [address] [place], [address] Gram stainOrdered By: Jim Burger on 04-29-2025 Microscopic observation Gram stain Nom (Unsp spec) [facility] Hemoglobin A1con 04-29-2025 HbA1c (Bld) [Mass fraction] 6.9 % High <=5.6 [facility] Comment on above: Result Comment: Norm al < 5.7 % Prediabetic 5.7 - 6.4 % Diabetic >or= 6.5 % Please note range changes. Performed By: #### L 501.9985 ####[facility] [address] [place], [address] Hemoglobin A1c percentageOrd ered By: Kristin Hernandes on 04-29-2025 HbA1c (Bld) [Mass fraction] 6.9 % High <5.7 [facility] Iron measurement (mass/mass) Ordered By: Jim Burger on 04-29-2025 Iron (Unsp spec) [Mass/Mass] 26 ug/dL Low 65-175 [facility] Iron+Iron Binding Capacityon 04-29-2025 TIBC 145 ug/dL Low 250-450 [facility] Comment on above: Performed By: #### L 503.6030, L100.9950, L503.6550, L503.0106 ####[facility] [address] [place], [place], [id number] Ketones Test strip Ql (U)Ord ered By: Varun Gamez on 04-29-2025 Ketones Ql (U) 50 mg/dl High Negative [facility] MRSA Wound DNA by PCRon 04-13 MRSA DNA ASSAY Normal Negative [facility] Comment on above: Order Comment: right 2nd toe Result Comment: NOT COLLECTED. WOUND CULTURE PERFORMED Performed By: #### L 8200.1075 ####[facility] [address] [place], [place], [id number] PROBE CHECK Normal [facility] Comment on above: Order Comment: right 2nd toe Result Comment: NOT COLLECTED. WOUND CULTURE PERFORMED Performed By: #### L 8200.1075 ####[facility] [address] [place], [address] SA DNA ASSAY Normal Negative [facility] Comment on above: Order Comment: right 2nd toe Result Comment: NOT COLLECTED. WOUND CULTURE PERFORMED Performed By: #### L 8200.1075 ####[facility] [address] [place], [address] SPC Normal [facility] Comment on above: Order Comment: right 2nd toe Result Comment: NOT COLLECTED. WOUND CULTURE PERFORMED Performed By: #### L 8200.1075 ####[facility] [address] [place], [address] Mucus LM Ql (Urine sed)Order ed By: Varun Gamez on 04-29-2025 Mucus Ql (Urine sed) 0 SEEN /hpf [facility] Nitrite Test strip Ql (U)Ord ered By: Varun Gamez on 04-29-2025 Nitrite Ql (U) Negative Negative [facility] No Panel InformationOrdered By: Jim Burger on 04-29-2025 119 ug/dL Low 228-428 [facility] Protein Test strip Ql (U)Ord ered By: Varun Gamez on 04-29-2025 Protein Ql (U) 100 mg/dl High Negative [facility] Retic Panelon 04-29-2025 IM RET FRACTION 9.90 Normal 3.00-15.90 [facility] Comment on above: Performed By: #### L 503.6030, L100.9950, L503.6550, L503.0106 ####[facility] [address] [place], [address] RET-HE 28.5 pg Low 30-35 [facility] Comment on above: Performed By: #### L 503.6030, L100.9950, L503.6550, L503.0106 ####[facility] [address] [place], [address] Retic Count 1.70 High 0.5-1.5 [facility] Comment on above: Performed By: #### L 503.6030, L100.9950, L503.6550, L503.0106 ####[facility] [address] [place], [address] Reticulocyte hemoglobin equi valent (RET-He) measurementOrdered By: Jim Burger on 04-29-2025 Hemoglobin (Reticulocytes) [Entitic mass] 28.5 pg Low 30-35 [facility] Reticulocytes Auto (Bld) [#/ Vol]Ordered By: Jim Burger on 04-29-2025 Reticulocytes/100 RBC (Bld) 1.70 % High 0.5-1.5 [facility] Routine wound cultureOrdered By: Jim Burger on 04-29-2025 Microbial culture, routine Streptococcus agalactiae (B) Abnormal [facility] Serum or plasma ferritin bernie surement (mass/volume)Ordered By: Jim Burger on 04-29-2025 Ferritin [Mass/Vol] 688 ng/mL High 37-417 [facility] Serum or plasma iron saturat ion measurement (mass fraction)Ordered By: Jim Burger on 04-29-2025 Iron saturation [Mass fraction] 17.9 % 9-55 [facility] Squamous epithelial cells de tection in urine sediment by light microscopyOrdered By: Varun Gamez on 04-29-2025 Epithelial cells.squamous LM Ql (Urine sed) 0-5 SEEN /hpf 0-5 [facility] Urinalysis, Completeon 04-29 AMORPHOUS 2+ Normal [facility] Comment on above: Order Comment: TOM CTOR TO SPECIFY Performed By: #### L 400.0001, ####[facility] [address] [place], [address] EPI,SQUAMOUS 0-5 SEEN Normal 0-5 [facility] Comment on above: Order Comment: TOM CTOR TO SPECIFY Performed By: #### L 400.0001, M1.2199 ####[facility] [address] [place], [address] RBC 5-10 SEEN Normal 0-5 [facility] Comment on above: Order Comment: TOM CTOR TO SPECIFY Performed By: #### L 400.0001, M100.0 ####[facility] [address] [place], [address] BACTERIA 2+ /hpf Normal None Seen [facility] Comment on above: Order Comment: TOM CTOR TO SPECIFY Performed By: #### L 400.0001, M100.2200 ####[facility] [address] [place], [address] WBC >100 SEEN Normal 0-5 [facility] Comment on above: Order Comment: TOM CTOR TO SPECIFY Result Comment: Micr oscopic field is filled. Other elements may beobscured. Performed By: #### L 400.0001, M100.2200 ####[facility] [address] [place], [address] Mucus Ql (Urine sed) 0 SEEN Normal [facility] Comment on above: Order Comment: TOM CTOR TO SPECIFY Performed By: #### L 400.0001, M1.0 ####[facility] [address] [place], [address] Urine clarityOrdered By: Job Gamez on 04-29-2025 Clarity (U) Turbid Clear [facility] Urine color determinationOrd ered By: Varun Gamez on 04-29-2025 Color (U) Yellow Yellow [facility] Urine cultureOrdered By: Job Gamez on 04-29-2025 Bacteria identified Cx Nom (U) Staphylococcus aureus Abnormal [facility] Urine glucose detectionOrder ed By: Varun Gamez on 04-29-2025 Glucose Ql (U) 100 mg/dl High Normal [facility] Urine leukocyte esterase det ection by dipstickOrdered By: Varun Gamez on 04-29-2025 Leukocyte esterase Test strip Ql (U) 500 /ul High Negative [facility] Urine pHOrdered By: Varun caro on 04-29-2025 pH (U) 5.0 [pH] 5.0 - 8.0 [facility] Urine sediment bacteria coun t by microscopy (number/high power field)Ordered By: Varun Gamez on 04-29-2025 Bacteria LM.HPF (Urine sed) [#/Area] 2 /[HPF] None Seen [facility] Urine specific gravity measu rementOrdered By: Varun Gamez on 04-29-2025 Specific gravity (U) [Rel density] 1.020 1.002-1.030 [facility] Urine urobilinogen measureme ntOrdered By: Varun Gamez on 04-29-2025 Urobilinogen Ql (U) 4 mg/dl High Normal [facility] Vitamin B12on 04-29-2025 Cobalamin (Vitamin B12) [Mass/Vol] 856 pg/mL Normal 180-914 [facility] Comment on above: Performed By: #### L 503.6030, L100.9950, L503.6550, L503.0106 ####[facility] [address] [place], [address] Vitamin B12 ser/plasOrdered By: Jim Burger on 04-29-2025 Cobalamin (Vitamin B12) [Mass/Vol] 856 pg/mL 180-914 [facility] White blood cell countOrdere d By: Varun Gamez on 04-29-2025 White blood cell count >100 SEEN /hpf 0-5 [facility] 12 Lead EKGon 04-28-2025 12 Lead EKG Normal [facility] Activated partial thrombopla stin time (aPTT) in platelet poor plasma by coagulation aOrdered By: Varun Gamez on 04-28-2025 aPTT Coag (PPP) [Time] 32.6 s 24.1-36.2 [facility] Bedside Glucoseon 04-28-2025 FINGERSTICK GLU 240 mg/dL High 74-106 [facility] Comment on above: Result Comment: SEAN GEMENT OF PATIENT CARE PER NURSING PROTOCOL Performed By: #### L 501.080 ####[facility] [address] [place], [address] Bilirubin, totalOrdered By: Varun Gamez on 04-28-2025 Bilirubin [Mass/Vol] 0.97 mg/dL 0.00-1.30 [facility] Blood cultureOrdered By: Job Gamez on 04-28-2025 Bacteria identified Cx Nom (Bld) Staphylococcus aureus Abnormal [facility] Bacteria identified Cx Nom (Bld) Staphylococcus aureus Abnormal [facility] CBC W/Diff, Automatedon 04-13 Absolute Lymph 1.50 X10 3/uL Normal 0.83-4.51 [facility] Comment on above: Performed By: #### L 503.6005, L500.4050, L100.0100, M100.636, L501.6710, L300.4310, M200.1000, L300.3900, L101.9900 ####[facility] [address] [place], [place], [phone]) Absolute Neut 11.5 X10 3/uL High 2.0-7.7 [facility] Comment on above: Performed By: #### L 503.6005, L500.4050, L100.0100, M100.636, L501.6710, L300.4310, M200.1000, L300.3900, L101.9900 ####[facility] [address] [place], [place], [phone] Basophils/100 WBC (Bld) 0.4 % Normal 0-1 [facility] Comment on above: Performed By: #### L 503.6005, L500.4050, L100.0100, M100.636, L501.6710, L300.4310, M200.1000, L300.3900, L101.9900 ####[facility] [address] [place], [address] Eosinophils/100 WBC (Bld) 0.5 % Normal 0-5 [facility] Comment on above: Performed By: #### L 503.6005, L500.4050, L100.0100, M100.636, L501.6710, L300.4310, M200.1000, L300.3900, L101.9900 ####[facility] [address] [place], [address]( Erythrocyte distribution width (RBC) [Ratio] 12.2 % Normal 11.6-14.6 [facility] Comment on above: Performed By: #### L 503.6005, L500.4050, L100.0100, M100.636, L501.6710, L300.4310, M200.1000, L300.3900, L101.9900 ####[facility] [address] [place], [address]( Hematocrit (Bld) [Volume fraction] 35.7 % Low 40-54 [facility] Comment on above: Performed By: #### L 503.6005, L500.4050, L100.0100, M100.636, L501.6710, L300.4310, M200.1000, L300.3900, L101.9900 ####[facility] [address] [facility] [place], [address] Hemoglobin (Bld) [Mass/Vol] 11.9 g/dL Low 13.0-16.5 [facility] Comment on above: Performed By: #### L 503.6005, L500.4050, L100.0100, M100.636, L501.6710, L300.4310, M200.1000, L300.3900, L101.9900 ####[facility] [address] [facility] [place], [address](785) IG% 0.600 Normal 0.0-0.9 [facility] Comment on above: Result Comment: IG% - Immature Granulocytes (promyelocytes, myelocytes andmetamyelocytes) > 1% indicates that a LEFT SHIFT is Present. Performed By: #### L 503.6005, L500.4050, L100.0100, M100.636, L501.6710, L300.4310, M200.1000, L300.3900, L101.9900 ####[facility] [address] [facility] [place], [address] Lymphocytes/100 WBC (Bld) 10.7 % Low 19-41 [facility] Comment on above: Performed By: #### L 503.6005, L500.4050, L100.0100, M100.636, L501.6710, L300.4310, M200.1000, L300.3900, L101.9900 ####[facility] [address] [place], [address] MCH (RBC) [Entitic mass] 28.8 pg Normal 27.0-32.0 [facility] Comment on above: Performed By: #### L 503.6005, L500.4050, L100.0100, M100.636, L501.6710, L300.4310, M200.1000, L300.3900, L101.9900 ####[facility] [address] [place], [address] MCHC (RBC) [Mass/Vol] 33.3 g/dL Normal 32-36 [facility] Comment on above: Performed By: #### L 503.6005, L500.4050, L100.0100, M100.636, L501.6710, L300.4310, M200.1000, L300.3900, L101.9900 ####[facility] [address] [place], [address] MCV (RBC) [Entitic vol] 86.4 fL Normal 80-94 [facility] Comment on above: Performed By: #### L 503.6005, L500.4050, L100.0100, M100.636, L501.6710, L300.4310, M200.1000, L300.3900, L101.9900 ####[facility] [address] [place], [address] Monocytes/100 WBC (Bld) 5.4 % Normal 0-10 [facility] Comment on above: Performed By: #### L 503.6005, L500.4050, L100.0100, M100.636, L501.6710, L300.4310, M200.1000, L300.3900, L101.9900 ####[facility] [address] [place], [address] Neutrophils/100 WBC (Bld) 82.4 % High 47-70 [facility] Comment on above: Performed By: #### L 503.6005, L500.4050, L100.0100, M100.636, L501.6710, L300.4310, M200.1000, L300.3900, L101.9900 ####[facility] [address] [place], [address] Nucleated RBC (Bld) [#/Vol] 0 10*3/uL Normal 0-5 [facility] Comment on above: Performed By: #### L 503.6005, L500.4050, L100.0100, M100.636, L501.6710, L300.4310, M200.1000, L300.3900, L101.9900 ####[facility] [address] [place], [address] Platelet mean volume (Bld) [Entitic vol] 9.5 fL Normal 6.2-12.0 [facility] Comment on above: Performed By: #### L 503.6005, L500.4050, L100.0100, M100.636, L501.6710, L300.4310, M200.1000, L300.3900, L101.9900 ####[facility] [address] [place], [address] Platelets (Bld) [#/Vol] 425 10*3/uL Normal 150-450 [facility] Comment on above: Performed By: #### L 503.6005, L500.4050, L100.0100, M100.636, L501.6710, L300.4310, M200.1000, L300.3900, L101.9900 ####[facility] [address] [place], [address]) RBC (Bld) [#/Vol] 4.13 10*6/uL Low 4.6-6.2 [facility] Comment on above: Performed By: #### L 503.6005, L500.4050, L100.0100, M100.636, L501.6710, L300.4310, M200.1000, L300.3900, L101.9900 ####[facility] [address] [place], [address](580) RDW SD 38.7 fl Normal 35.1-43.9 [facility] Comment on above: Performed By: #### L 503.6005, L500.4050, L100.0100, M100.636, L501.6710, L300.4310, M200.1000, L300.3900, L101.9900 ####[facility] [address] [place], [place], [phone]) WBC (Bld) [#/Vol] 14.0 10*3/uL High 4.4-11.0 [facility] Comment on above: Performed By: #### L 503.6005, L500.4050, L100.0100, M100.636, L501.6710, L300.4310, M200.1000, L300.3900, L101.9900 ####[facility] [address] [place], [place], [phone](167) CRPon 04-28-2025 C-REACTIVE PROT 102.00 mg/L High 0.0-3.0 [facility] Comment on above: Performed By: #### L 503.6005, L500.4050, L100.0100, M100.636, L501.6710, L300.4310, M200.1000, L300.3900, L101.9900 ####[facility] [address] [place], [address] Chest 1 View (Portable)on Chest 1 View (Portable) Normal [facility] Comprehensive Metabolic Prof ilon 04-28-2025 Albumin [Mass/Vol] 3.6 g/dL Normal 3.5-5.0 [facility] Comment on above: Performed By: #### L 503.6005, L500.4050, L100.0100, M100.636, L501.6710, L300.4310, M200.1000, L300.3900, L101.9900 ####[facility] [address] [place], [address] Albumin/Globulin [Mass ratio] 0.7 {ratio} Low 0.9-2.4 [facility] Comment on above: Performed By: #### L 503.6005, L500.4050, L100.0100, M100.636, L501.6710, L300.4310, M200.1000, L300.3900, L101.9900 ####[facility] [address] [place], [address] ALK PHOS 156 U/L High 40-129 [facility] Comment on above: Performed By: #### L 503.6005, L500.4050, L100.0100, M100.636, L501.6710, L300.4310, M200.1000, L300.3900, L101.9900 ####[facility] [address] [place], [address] ALT [Catalytic activity/Vol] 25 U/L Normal <=46 [facility] Comment on above: Performed By: #### L 503.6005, L500.4050, L100.0100, M100.636, L501.6710, L300.4310, M200.1000, L300.3900, L101.9900 ####[facility] [address] [place], [address] AST [Catalytic activity/Vol] 21 U/L Normal <=37 [facility] Comment on above: Performed By: #### L 503.6005, L500.4050, L100.0100, M100.636, L501.6710, L300.4310, M200.1000, L300.3900, L101.9900 ####[facility] [address] [place], [address] Bilirubin [Mass/Vol] 0.97 mg/dL Normal 0.00-1.30 [facility] Comment on above: Performed By: #### L 503.6005, L500.4050, L100.0100, M100.636, L501.6710, L300.4310, M200.1000, L300.3900, L101.9900 ####[facility] [address] [place], [address] BUN/CRE 15.8 RATIO Normal 10-20 [facility] Comment on above: Performed By: #### L 503.6005, L500.4050, L100.0100, M100.636, L501.6710, L300.4310, M200.1000, L300.3900, L101.9900 ####[facility] [address] [place], [address] Calcium [Mass/Vol] 9.7 mg/dL Normal 7.6-11.0 [facility] Comment on above: Performed By: #### L 503.6005, L500.4050, L100.0100, M100.636, L501.6710, L300.4310, M200.1000, L300.3900, L101.9900 ####[facility] [address] [place], [address] Chloride [Moles/Vol] 94 mmol/L Low 98-108 [facility] Comment on above: Performed By: #### L 503.6005, L500.4050, L100.0100, M100.636, L501.6710, L300.4310, M200.1000, L300.3900, L101.9900 ####[facility] [address] [place], [address] CO2 [Moles/Vol] 18.7 mmol/L Low 21.0-32.0 [facility] Comment on above: Performed By: #### L 503.6005, L500.4050, L100.0100, M100.636, L501.6710, L300.4310, M200.1000, L300.3900, L101.9900 ####[facility] [address] [place], [address] Creatinine [Mass/Vol] 1.69 mg/dL High 0.70-1.20 [facility] Comment on above: Performed By: #### L 503.6005, L500.4050, L100.0100, M100.636, L501.6710, L300.4310, M200.1000, L300.3900, L101.9900 ####[facility] [address] [place], [address] ECRCL 76.67 ml/min Normal 50-250 [facility] Comment on above: Performed By: #### L 503.6005, L500.4050, L100.0100, M100.636, L501.6710, L300.4310, M200.1000, L300.3900, L101.9900 ####[facility] [address] [place], [address] GAP 17 High 5-15 [facility] Comment on above: Performed By: #### L 503.6005, L500.4050, L100.0100, M100.636, L501.6710, L300.4310, M200.1000, L300.3900, L101.9900 ####[facility] [address] [place], [address] GFR/1.73 sq M.predicted among non-blacks MDRD (S/P/Bld) [Vol rate/Area] 52 mL/min/{1.73_m2} Low >60 [facility] Comment on above: Result Comment: mL/m in/1.73m2 CKD-EPI Creatinine Equation (2020) Performed By: #### L 503.6005, L500.4050, L100.0100, M100.636, L501.6710, L300.4310, M200.1000, L300.3900, L101.9900 ####[facility] [address] [place], [address] Globulin (S) [Mass/Vol] 5.3 g/dL High 2.2-4.2 [facility] Comment on above: Performed By: #### L 503.6005, L500.4050, L100.0100, M100.636, L501.6710, L300.4310, M200.1000, L300.3900, L101.9900 ####[facility] [address] [place], [address] Glucose [Mass/Vol] 295 mg/dL High 70-99 [facility] Comment on above: Performed By: #### L 503.6005, L500.4050, L100.0100, M100.636, L501.6710, L300.4310, M200.1000, L300.3900, L101.9900 ####[facility] [address] [place], [address] Potassium [Moles/Vol] 5.6 mmol/L High 3.3-5.1 [facility] Comment on above: Performed By: #### L 503.6005, L500.4050, L100.0100, M100.636, L501.6710, L300.4310, M200.1000, L300.3900, L101.9900 ####[facility] [address] [place], [address] Sodium [Moles/Vol] 130 mmol/L Low 133-145 [facility] Comment on above: Performed By: #### L 503.6005, L500.4050, L100.0100, M100.636, L501.6710, L300.4310, M200.1000, L300.3900, L101.9900 ####[facility] [address] [place], [address] T PROT 8.9 g/dL High 5.9-8.4 [facility] Comment on above: Performed By: #### L 503.6005, L500.4050, L100.0100, M100.636, L501.6710, L300.4310, M200.1000, L300.3900, L101.9900 ####[facility] [address] [place], [address] Urea nitrogen [Mass/Vol] 27 mg/dL High 4-19 [facility] Comment on above: Performed By: #### L 503.6005, L500.4050, L100.0100, M100.636, L501.6710, L300.4310, M200.1000, L300.3900, L101.9900 ####[facility] [address] [place], [address] Elbow min 3 Viewson 04-28-20 25 Elbow min 3 Views Normal [facility] Emergency Department Summary on 04-28-2025 Emergency Department Summary Normal [facility] Erythrocyte Sed Rateon 04-28 SED RATE 28 mm/hr High 0-20 [facility] Comment on above: Performed By: #### L 503.6005, L500.4050, L100.0100, M100.636, L501.6710, L300.4310, M200.1000, L300.3900, L101.9900 ####[facility] [address] [place], [address] Erythrocyte sedimentation ra teOrdered By: Varun Gamez on 04-28-2025 ESR (Bld) [Velocity] 28 mm/h High 0-20 [facility] H AND P Exam - [facility] 04-28-2025 H&P Exam - Hospitalist Normal [facility] Lactic Acidon 04-28-2025 Lactate [Moles/Vol] mmol/L Normal 0.0-2.0 [facility] Comment on above: Performed By: #### L 503.6005 ####[facility] [id number] [place], [place], [id number] Lactate [Moles/Vol] 2.8 mmol/L Invalid Interpretation Code 0.0-2.0 [facility] Comment on above: Order Comment: Y Result Comment: Crit ical Result(s) Called DENNIS OTT at:1906 by:JULIANNE??Results read back by same. Performed By: #### L 503.6005, L500.4050, L100.0100, M100.636, L501.6710, L300.4310, M200.1000, L300.3900, L101.9900 ####[facility] [address] [place], [place], [id number] No Panel InformationOrdered By: Varun Gamez on 04-28-2025 21 U/L <38 [facility] Organism identificationOrder ed By: Varun Gamez on 04-28-2025 Microorganism identified Cx Nom (Unsp spec) Staphylococcus aureus Abnormal [facility] Partial Thromboplast Timeon 04-28-2025 aPTT Coag (Bld) [Time] 32.6 s Normal 24.1-36.2 [facility] Comment on above: Performed By: #### L 503.6005, L500.4050, L100.0100, M100.636, L501.6710, L300.4310, M200.1000, L300.3900, L101.9900 ####[facility] [address] [place], [address] Prothrombin Time w/INRon INR Coag (PPP) [Relative time] 1.2 {INR} Normal [facility] Comment on above: Performed By: #### L 503.6005, L500.4050, L100.0100, M100.636, L501.6710, L300.4310, M200.1000, L300.3900, L101.9900 ####[facility] [address] [facility] [place], [place], [id number] PT Coag (PPP) [Time] 15.0 s High 11.7-14.9 [facility] Comment on above: Performed By: #### L 503.6005, L500.4050, L100.0100, M100.636, L501.6710, L300.4310, M200.1000, L300.3900, L101.9900 ####[facility] [address] [facility] [place], [place], [id number] Prothrombin timeOrdered By: Varun Gamez on 04-28-2025 PT Coag (PPP) [Time] 15.0 s High 11.7-14.9 [facility] Serum globulin measurementOr dered By: Varun Gamez on 04-28-2025 Globulin (S) [Mass/Vol] 5.3 g/dL High 2.2-4.2 [facility] Serum or plasma C reactive p rotein measurement (mass/volume)Ordered By: Varun Gamez on 04-28-2025 CRP [Mass/Vol] 102.00 mg/L High 0.0-3.0 [facility] Serum or plasma alanine collins otransferase (ALT) measurementOrdered By: Varun Gamez on 04-28-2025 ALT [Catalytic activity/Vol] 25 U/L <47 [facility] Serum or plasma albumin angela urement (mass/volume)Ordered By: Varun Gamez on 04-28-2025 Albumin [Mass/Vol] 3.6 g/dL 3.5-5.0 [facility] Serum or plasma albumin/glob ulin mass ratioOrdered By: Varun Gamez on 04-28-2025 Albumin/Globulin [Mass ratio] 0.7 {ratio} Low 0.9-2.4 [facility] Serum or plasma alkaline ion sphatase measurementOrdered By: Varun Gamez on 04-28-2025 ALP [Catalytic activity/Vol] 156 U/L High 40-129 [facility] Total proteinOrdered By: Job Gamez on 04-28-2025 Protein [Mass/Vol] 8.9 g/dL High 5.9-8.4 [facility] Spine Lumbar (Routine)on Spine Lumbar (Routine) Normal [facility] L/S Spine Bending Flex/[place] 04-19-2025 L/S Spine Bending Flex/Ext Normal [facility] Orthopedic Visit Reporton Orthopedic Visit Report Normal [facility] Internal Medicine Office Vis iton 04-04-2025 Internal Medicine Office Visit Normal [facility] L/S Spine Min 4 Viewson 03-14 L/S Spine Min 4 Views Normal [facility] Endocrinology Visit Reporton 03-11-2025 Endocrinology Visit Report Normal [facility] Bacteria Ur Culton Bacteria identified Cx Nom (U) ORGANISM ID: 1 <10,000 CFU/ml Normal urogenital sonam Normal [facility] Comment on above: Performed By: #### 6 30-4 #### [facility] CLIA [id number] [address] [place] [address] [place] C. trachomatis+N. gonorrhoea e DNA JUANCHO+probe Ql (Unsp spec)on 03-02-2025 C. trachomatis rRNA JUANCHO+probe Ql (Unsp spec) Not detected Normal Not detected [facility] Comment on above: Order Comment: Speci men Type: URINE SPECIMEN Ordering Facility: [facility] Address: [address] [place] [address] Performed By: #### 3 6902-5 #### [facility] CLIA [id number] [address] [place] [address] [place] N. gonorrhoeae rRNA JUANCHO+probe Ql (Unsp spec) Not detected Normal Not detected [facility] Comment on above: Order Comment: Speci men Type: URINE SPECIMEN Ordering Facility: [facility] Address: [address] [place] [address] Performed By: #### 3 6902-5 #### [facility] CLIA [id number] [address] [place] [address] [place] CNOVon 03-02-2025 CNOV Office Visit ([facility]) ---- SUDEEPTREVON ([id number]) 1985 M Date Time Provider Department 03/02/25 10:00 AM JOSEMANUEL POLLARD During your visit today, we recorded the following information about you: Temperature Pulse Respiration Blood pressure 97.2 degrees 102/minute 18/minute 122/70 Weight 124.8 kg Josemanuel Pollard PA 03/02/2025 11:16 AM Signed [facility] Chema Trevon Keo Raman is a 39 year old male. Patient presents with: Urinary Frequency: pelvic pressure, left side lower back pain x 3-4 days HPI 39-year-old male presents for urinary frequency, urgency, left-sided low back pain. Patient states he has been sleeping wrong, has had a little bit of left-sided low back pain. He has also been having urinary/bladder pressure, urinary frequency and urgency. He states he feels the urge to go, but only goes a small amount. No history of UTIs in the past, but is a diabetic. He states his glucose has been under control. He denies any penile rash. He states he has had some white penile discharge over the past couple of days and noticed some white discharge in his urine. No blood in the urine. No fevers, vomiting, testicular pain, testicular swelling, abdominal pain. No other complaint. PAST MEDICAL HISTORY Diagnosis Date Nonproliferative diabetic retinopathy of both eyes ([facility]) 05/31/2019 Type I (juvenile type) diabetes mellitus without mention of complication, not stated as uncontrolled ([facility]) Uncontrolled type 1 diabetes mellitus with diabetic neuropathy, with long-term current use of insulin 03/05/2016 PAST SURGICAL HISTORY Procedure Laterality Date NONE ALLERGIES Cefzil [Cefprozil] and Penicillins MEDICATIONS fluticasone (FLONASE) 50 mcg/actuation nasal spray Use 2 Sprays in each nostril once daily. Rinse mouth after use. L.acidophilus-L.rha mnosus (PROBIOTIC) 15 billion cell capsule Take 1 capsule by mouth once daily. Insulin [place], Disposable, (BD ULTRAFINE III MINI PEN) 31 gauge x 3/16 ndle USE 1 NEEDLE FOR EACH DOSE 6 TIMES DAILY insulin glargine (LANTUS SOLOSTAR, BASAGLAR KWIKPEN) 100 unit/mL (3 mL) inpn Administer 45 units at bedtime insulin aspart U-100 (NOVOLOG FLEXPEN U-100 INSULIN) 100 unit/mL (3 mL) inpn Inject 32 units with meals up to 100 units daily. Plus sliding scale correction up to 32 units/day lancets (FREESTYLE LANCETS) 28 gauge misc Test blood sugar(s) 6x daily. Dx: e10.65. Insulin: Yes blood sugar diagnostic (FREESTYLE LITE STRIPS) test strip Test blood sugar(s) 6 times daily. Dx: e10.65. Insulin: Yes lactobacillus combination no.4 (PROBIOTIC) 3 billion cell cap Take 1 capsule by mouth once daily. (Patient not taking: Reported on 12/01/2023) FAMILY HISTORY Problem Relation Age of Onset Diabetes Mother Hyperlipidemia Mother COPD Father Coronary Artery Disease Father 35 Cancer Father lung Obesity Sister morbid obesity Thyroid Sister hypothyroid Depression Sister Heart Maternal Grandmother Stroke Maternal Grandmother Dementia Paternal Grandfather Diabetes Daughter Coronary Artery Disease Paternal Uncle SOCIAL HISTORY[1] Review of Systems Constitutional: Negative for chills and fever. HENT: Negative for congestion and sore throat. Respiratory: Negative for cough and shortness of breath. Gastrointestinal: Negative for abdominal pain, diarrhea and vomiting. Genitourinary: Positive for dysuria, frequency, penile discharge and urgency. Negative for flank pain, penile pain and testicular pain. Musculoskeletal: Positive for back pain. Objective BP 122/70 Pulse 102 Temp 36.2 ?C (97.2 ?F) Resp 18 Wt 124.8 kg (275 lb 2.2 oz) SpO2 98% BMI 37.31 kg/m? Physical Exam Vitals and nursing note reviewed. Constitutional: General: He is not in acute distress. Appearance: Normal appearance. He is not toxic-appearing. HENT: Mouth/Throat: Mouth: Mucous membranes are moist. Cardiovascular: Rate and Rhythm: Normal rate and regular rhythm. Pulmonary: Effort: Pulmonary effort is normal. Breath sounds: Normal breath sounds. Abdominal: General: Abdomen is flat. Palpations: Abdomen is soft. Tenderness: There is no abdominal tenderness. There is no right CVA tenderness, left CVA tenderness, guarding or rebound. Genitourinary: Comments: Deferred Skin: General: Skin is warm and dry. Neurological: Mental Status: He is alert. {ASSESSMENT/PLAN: 1. Urinary frequency - ICD9: 788.41, ICD10: R35.0 (primary diagnosis) acute - UA positive for roselyn esterase, hematuria, and proteinuria - Send urine for culture - Begin treatment with Macrobid 100 mg BID for 7 days - Patient education for prevention given - UA DIP, URINE (POC) - BACTERIAL CULTURE, URINE - GONORRHEA/CHLAMYDIA NAAT - TRICHOMONAS VAGINALIS NAAT 2. Acute left-sided low back pain without sciatica - ICD9: 724.2, ICD10: M54.50 (more content not included)... Normal [facility] TRICHOMONAS VAGINALIS NAATon 03-02-2025 T. vaginalis DNA JUANCHO+probe Ql (Unsp spec) Not detected Normal Not detected [facility] Comment on above: Order Comment: Speci men Type: URINE SPECIMEN Ordering Facility: [facility] Address: [address] [place] [address] Performed By: #### T RVAMP #### [facility] CLIA [id number] [address] [place] [address] [id number], [place] [address] [place] UA DIP, URINE (POC)on 2024 BILIRUBIN UA (POCT) Small Abnormal Negative [place] [facility] CLARITY UA (POCT) Cloudy [facility] COLOR UA (POCT) Dark yellow [facility] GLUCOSE UA (POCT) Negative Negative mg/dL [facility] Hemoglobin Ql (U) Moderate Abnormal Negative [facility] Interpretation and review of laboratory results Abnormal [facility] KETONE UA (POCT) Negative Negative mg/dL [facility] LEUKOCYTES UA (POCT) Small Abnormal Negative [facility] NITRITE UA (POCT) Negative Negative [facility] PH UA (POCT) 5.5 4.5 - 8.0 [facility] Protein Ql (U) 30 mg/dL Abnormal Negative [facility] SPECIFIC GRAVITY UA (POCT) 1.020 1.005 - 1.030 [facility] UROBILINOGEN UA (POCT) 0.2 Alice l E.U./dL [facility] Location:[address], [place], [address] [facility] POINT OF CARE [facility] Internal Medicine Office Vis iton 12-31-2024 Internal Medicine Office Visit Normal [facility] PT D/C Summary (1)on 025 PT D/C Summary (1) Normal [facility] Inital Evaluation (1) - PTon 11-12-2024 Inital Evaluation (1) - PT Normal [facility] Internal Medicine Office Vis iton 11-07-2024 Internal Medicine Office Visit Normal [facility] Endocrinology Visit Reporton 10-08-2024 Endocrinology Visit Report Normal [facility] Laboratory - Hematology and Cell countsOrdered By: Tez Clement on 10-08-2024 HbA1c (Bld) [Mass fraction] 7.1 % High 4.2-6.3 [facility] Bedside Glucoseon 06-04-2024 FINGERSTICK GLU 91 mg/dL Normal 74-106 [facility] Comment on above: Result Comment: SEAN VERNON OF PATIENT CARE PER NURSING PROTOCOL Performed By: #### L 501.080 ####[facility] [address] [place], [address] CBC W/Diff, Automatedon 05-15 Absolute Lymph 2.33 X10 3/uL Normal 0.83-4.51 [facility] Comment on above: Performed By: #### L 100.0100 ####[facility] [address] [place], [address] Absolute Neut 6.2 X10 3/uL Normal 2.0-7.7 [facility] Comment on above: Performed By: #### L 100.0100 ####[facility] [address] [place], [address] Basophils/100 WBC (Bld) 0.6 % Normal 0-1 [facility] Comment on above: Performed By: #### L 100.0100 ####[facility] [address] [place], [address] Eosinophils/100 WBC (Bld) 1.3 % Normal 0-5 [facility] Comment on above: Performed By: #### L 100.0100 ####[facility] [address] [place], [address] Erythrocyte distribution width (RBC) [Ratio] 11.9 % Normal 11.6-14.6 [facility] Comment on above: Performed By: #### L 100.0100 ####[facility] [address] [place], [address] Hematocrit (Bld) [Volume fraction] 44.0 % Normal 40-54 [facility] Comment on above: Performed By: #### L 100.0100 ####[facility] [address] [place], [address] Hemoglobin (Bld) [Mass/Vol] 15.4 g/dL Normal 13.0-16.5 [facility] Comment on above: Performed By: #### L 100.0100 ####[facility] [address] [place], [address] IG% 0.400 Normal 0.0-0.9 [facility] Comment on above: Result Comment: IG% - Immature Granulocytes (promyelocytes, myelocytes andmetamyelocytes) > 1% indicates that a LEFT SHIFT is Present. Performed By: #### L 100.0100 ####[facility] [address] [place], [address] Lymphocytes/100 WBC (Bld) 24.5 % Normal 19-41 [facility] Comment on above: Performed By: #### L 100.0100 ####[facility] [address] [place], [address] MCH (RBC) [Entitic mass] 29.8 pg Normal 27.0-32.0 [facility] Comment on above: Performed By: #### L 100.0100 ####[facility] [address] [place], [address] MCHC (RBC) [Mass/Vol] 35.0 g/dL Normal 32-36 [facility] Comment on above: Performed By: #### L 100.0100 ####[facility] [address] [place], [address] MCV (RBC) [Entitic vol] 85.1 fL Normal 80-94 [facility] Comment on above: Performed By: #### L 100.0100 ####[facility] [address] [place], [address] Monocytes/100 WBC (Bld) 8.5 % Normal 0-10 [facility] Comment on above: Performed By: #### L 100.0100 ####[facility] [address] [place], [address] Neutrophils/100 WBC (Bld) 64.7 % Normal 47-70 [facility] Comment on above: Performed By: #### L 100.0100 ####[facility] [address] [place], [address] Nucleated RBC (Bld) [#/Vol] 0 10*3/uL Normal 0-5 [facility] Comment on above: Performed By: #### L 100.0100 ####[facility] [address] [place], [address] Platelet mean volume (Bld) [Entitic vol] 9.4 fL Normal 6.2-12.0 [facility] Comment on above: Performed By: #### L 100.0100 ####[facility] [address] [place], [address] Platelets (Bld) [#/Vol] 322 10*3/uL Normal 150-450 [facility] Comment on above: Performed By: #### L 100.0100 ####[facility] [address] [place], [address] RBC (Bld) [#/Vol] 5.17 10*6/uL Normal 4.6-6.2 [facility] Comment on above: Performed By: #### L 100.0100 ####[facility] [address] [place], [address] RDW SD 36.9 fl Normal 35.1-43.9 [facility] Comment on above: Performed By: #### L 100.0100 ####[facility] [address] [place], [address] WBC (Bld) [#/Vol] 9.5 10*3/uL Normal 4.4-11.0 [facility] Comment on above: Performed By: #### L 100.0100 ####[facility] [address] [place], [address] Decalcification bone/plaqueo n 06-04-2024 Decalcification bone/plaque Normal [facility] Comment on above: Performed By: #### P DEC ####[facility] [address] [place], [address] Discharge Instructionon 05-15 Discharge Instruction Normal [facility] Foot 2 Viewson 06-04-2024 Foot 2 Views Normal [facility] Foot min 3 Viewson Foot min 3 Views Normal [facility] MR/POSTOP.ANEon 06-04-2024 MR/POSTOP.ANE Normal [facility] MR/SZEIKOPS2ow 06-04-2024 MR/POSTOPAN2 Normal [facility] Operative Reporton Operative Report Normal [facility] Comprehensive Metabolic Prof ilon 05-31-2024 Albumin [Mass/Vol] 3.6 g/dL Normal 3.2-5.0 [facility] Comment on above: Performed By: #### L 500.4050, L500.4100, L501.9520 ####[facility] [address] [place], [address] Albumin/Globulin [Mass ratio] 0.8 {ratio} Low 0.9-2.4 [facility] Comment on above: Performed By: #### L 500.4050, L500.4100, L501.9520 ####[facility] [address] [place], [address] ALK P 139 U/L High 45-117 [facility] Comment on above: Performed By: #### L 500.4050, L500.4100, L501.9520 ####[facility] [address] [place], [address] ALT [Catalytic activity/Vol] 51 U/L Normal 16-61 [facility] Comment on above: Performed By: #### L 500.4050, L500.4100, L501.9520 ####[facility] [address] [place], [address] AST [Catalytic activity/Vol] 29 U/L Normal 15-37 [facility] Comment on above: Performed By: #### L 500.4050, L500.4100, L501.9520 ####[facility] [address] [place], [address] Bilirubin [Mass/Vol] 0.50 mg/dL Normal 0.20-1.00 [facility] Comment on above: Result Comment: For patients on eltrombopag therapy, use of Dimension [place] TBIL is not recommended. Performed By: #### L 500.4050, L500.4100, L501.9520 ####[facility] [address] [place], [address] BUN/CRE 17.3 RATIO Normal 10-20 [facility] Comment on above: Performed By: #### L 500.4050, L500.4100, L501.9520 ####[facility] [address] [place], [address] CA,Total 8.8 mg/dL Normal 8.5-10.1 [facility] Comment on above: Performed By: #### L 500.4050, L500.4100, L501.9520 ####[facility] [address] [place], [address] Chloride [Moles/Vol] 106 mmol/L Normal 98-107 [facility] Comment on above: Performed By: #### L 500.4050, L500.4100, L501.9520 ####[facility] [address] [place], [address] CO2 [Moles/Vol] 25.0 mmol/L Normal 21.0-32.0 [facility] Comment on above: Performed By: #### L 500.4050, L500.4100, L501.9520 ####[facility] [address] [place], [address] Creatinine [Mass/Vol] 1.10 mg/dL Normal 0.70-1.30 [facility] Comment on above: Result Comment: The validity of the calculated GFR GFRAA in patients over70 years has not been determined. Clinical correlation isessential. Performed By: #### L 500.4050, L500.4100, L501.9520 ####[facility] [address] [place], [address] EST GFR - AA 96 mL/min Normal >60 [facility] Comment on above: Result Comment: Afri can Irish GFR Calc Performed By: #### L 500.4050, L500.4100, L501.9520 ####[facility] [address] [place], [address] GAP 6 Normal 5-15 [facility] Comment on above: Performed By: #### L 500.4050, L500.4100, L501.9520 ####[facility] [address] [place], [address] GFR/1.73 sq M.predicted among non-blacks MDRD (S/P/Bld) [Vol rate/Area] 79 mL/min/{1.73_m2} Normal >60 [facility] Comment on above: Result Comment: Non- GFR Calc Performed By: #### L 500.4050, L500.4100, L501.9520 ####[facility] [address] [place], [address] Globulin (S) [Mass/Vol] 4.5 g/dL High 2.2-4.2 [facility] Comment on above: Performed By: #### L 500.4050, L500.4100, L501.9520 ####[facility] [address] [place], [address] Glucose [Mass/Vol] 186 mg/dL High 74-106 [facility] Comment on above: Result Comment: Fast ing Glucose result greater than or equal to 126 mg/dLsuggests DIABETES MELLITUS per A.D.A. criteria. Performed By: #### L 500.4050, L500.4100, L501.9520 ####[facility] [address] [place], [address] Potassium [Moles/Vol] 4.0 mmol/L Normal 3.5-5.1 [facility] Comment on above: Performed By: #### L 500.4050, L500.4100, L501.9520 ####[facility] [address] [place], [address] Sodium [Moles/Vol] 137 mmol/L Normal 136-145 [facility] Comment on above: Performed By: #### L 500.4050, L500.4100, L501.9520 ####[facility] [address] [place], [address] T PROT 8.1 g/dL Normal 6.4-8.2 [facility] Comment on above: Performed By: #### L 500.4050, L500.4100, L501.9520 ####[facility] [address] [place], [address] Urea nitrogen [Mass/Vol] 19 mg/dL High 01-28 [facility] Comment on above: Performed By: #### L 500.4050, L500.4100, L501.9520 ####[facility] [address] [place], [address] Lipid Profileon 05-31-2024 Cholesterol [Mass/Vol] 215 mg/dL High 200 [facility] Comment on above: Result Comment: <200 mg/dL Desirable 200-240 mg/dL Borderline >240 mg/dL High Risk Performed By: #### L 500.4050, L500.4100, L501.9520 ####[facility] [address] [place], [address] Cholesterol in HDL [Mass/Vol] 43 mg/dL Normal [facility] Comment on above: Result Comment: The drugs N-Acetylcysteine and Metamizole may falselydepress this assay. Reference Range HDL <40 mg/dL Low HDL Cholesterol HDL >or= 60 mg/dL High HDL Cholesterol Performed By: #### L 500.4050, L500.4100, L501.9520 ####[facility] [address] [place], [address] LDL TNP Normal 0-130 [facility] Comment on above: Performed By: #### L 500.4050, L500.4100, L501.9520 ####[facility] [address] [place], [address] Triglyceride [Mass/Vol] 433 mg/dL High [facility] Comment on above: Result Comment: The drugs N-Acetylcysteine and Metamizole may falselydepress this assay.TRIGLYCERIDE IS GREATER THAN 400 mg/dL.LDL RESULT IS INVALID AND WILL NOT BE REPORTED.Serum Triglycerides Reference Interval Normal <150 mg/dL Borderline high 150 - 199 mg/dL High 200 - 499 mg/dL Very High > or = 500 mg/dL Performed By: #### L 500.4050, L500.4100, L501.9520 ####[facility] [address] [place], [address] VLDL TNP Normal 5-40 [facility] Comment on above: Performed By: #### L 500.4050, L500.4100, L501.9520 ####[facility] [address] [place], [address] Microalb:Creat Ratio,Random URon 05-31-2024 Creatinine [Mass/Vol] 179.00 mg/dL Normal NO RAN GE EST. [facility] Comment on above: Performed By: #### L 502.0250 ####[facility] [address] [place], [address] MALB:CRE 10.3 mg/g CRE Normal <30 mg/g CRE [facility] Comment on above: Performed By: #### L 502.0250 ####[facility] [id number] [place], [address] MICROALBUMIN,UR 18.4 mg/L Normal NO RANGE EST. [facility] Comment on above: Performed By: #### L 502.0250 ####[facility] [address] [place], [address] Thyroid Stim Hormone (TSH)on 05-31-2024 TSH 1.320 uIU/mL Normal 0.358-3.740 [facility] Comment on above: Performed By: #### L 500.4050, L500.4100, L501.9520 ####[facility] [id number] [place], [address] CNPNon 03-22-2024 CNPN Telephone (FAMPWS) ---- TREVON RAMAN ([id number]) 1985 Date Time Provider Department 03/22/24 NO PCP FAMPWS During your visit today, we recorded the following information about you: Rajani Sifuentes RN 03/22/2024 10:32 AM Signed Omid Love calling from [facility]. Patient currently has an Establish Care appointment with Dr. Dozier on 05/25/24. Omid reports patient needs to make a Pre-Op clearance appt as well, for a metatarsal and wound procedure that is needing done. Omid to notify patient to call provider's office to get this scheduled after his Establish Care visit. Will await patient's call. Rajani Sifuentes RN Allergies As of Date: 03/22/2024 Noted Allergy Reaction CEFZIL (CEFPROZIL) 05/03/2005 4 - Hives PENICILLINS 05/03/2005 8 - GI Upset Date Reviewed: 02/25/2024 Reviewed by: John Patton APRN.ACADEMIC REGISTRAR - Fully Assessed Reason for Visit: Patient Update [1234] Prescriptions as of 04/12/2024 - fluticasone (FLONASE) 50 mcg/actuation nasal spray Use 2 Sprays in each nostril once daily. Rinse mouth after use. - L.acidophilus-L.rha mnosus (PROBIOTIC) 15 billion cell capsule Take 1 capsule by mouth once daily. - lactobacillus combination no.4 (PROBIOTIC) 3 billion cell cap Take 1 capsule by mouth once daily. - Insulin [place], Disposable, (BD ULTRAFINE III MINI PEN) 31 gauge x 3/16 ndle USE 1 NEEDLE FOR EACH DOSE 6 TIMES DAILY - insulin glargine (LANTUS SOLOSTAR, BASAGLAR KWIKPEN) 100 unit/mL (3 mL) inpn Administer 45 units at bedtime - insulin aspart U-100 (NOVOLOG FLEXPEN U-100 INSULIN) 100 unit/mL (3 mL) inpn Inject 32 units with meals up to 100 units daily. Plus sliding scale correction up to 32 units/day - lancets (FREESTYLE LANCETS) 28 gauge misc Test blood sugar(s) 6x daily. Dx: e10.65. Insulin: Yes - blood sugar diagnostic (FREESTYLE LITE STRIPS) test strip Test blood sugar(s) 6 times daily. Dx: e10.65. Insulin: Yes Problem List As Of Date 03/22/2024 Noted Resolved Mixed hyperlipidemia [E78.2] 08/22/2005 Uncontrolled type 1 diabetes mellitus (HCC) [IM*08/22/2005 03/05/2016 Tobacco use disorder [F17.200] 07/13/2010 Weight loss, unintentional [R63.4] 08/05/2012 06/16/2016 Uncontrolled type 1 diabetes mellitus with diab*03/05/2016 Right foot ulcer (HCC) [L97.519] 12/30/2018 DM type 1 with diabetic peripheral neuropathy (*12/30/2018 Nonproliferative diabetic retinopathy of both e*05/31/2019 Osteomyelitis of fifth toe of right foot (HCC) *08/05/2019 Status post amputation of lesser toe of right f*08/05/2019 Encounter Status:Closed by RAJANI SIFUENTES on 9/30/24 Normal [facility] XR Finger - left AP and Late ral and obliqueon 02-25-2024 IMPRESSION: No acute radiographic abnormalities seen in the first digit. Recreation Activities Coordinator: YONAS Transcribe Date/Time: Feb 25 2024 3:01P Dictated by : JOSE MIGUEL FIERRO MD This examination was interpreted and the report reviewed and electronically signed by: JOSE MIGUEL FIERRO MD on Feb 25 2024 3:04PM [facility] DIVISION OF RADIOLOGY * * *Final Report* * * DATE OF EXAM: Feb 25 2024 2:57PM WOX [id number] - XR DIGIT 3V FRONTAL/LAT/OBL LT / PROCEDURE REASON: Thumb pain, left * * * * Physician Interpretation * * * * EXAM TITLE: XR DIGIT 3V FRONTAL/LAT/OBL LT EXAM DATE/TIME: 02/25/2024 2:57 PM COMPARISON: None. CLINICAL INDICATION/HISTORY: Thumb pain. TECHNIQUE: PA, lateral and oblique views of the first digit of the left hand are presented. FINDINGS: No acute fractures or subluxations are noted. The joint spaces are well preserved. The mineralization of the bones is normal. There is no significant soft tissue swelling. DIVISION OF RADIOLOGY Provider, [facility] [place] - 02/25/2024 * * *Final Report* * * DATE OF EXAM: Feb 25 2024 2:57PM WOX [id number] - XR DIGIT 3V FRONTAL/LAT/OBL LT / PROCEDURE REASON: Thumb pain, left * * * * Physician Interpretation * * * * EXAM TITLE: XR DIGIT 3V FRONTAL/LAT/OBL LT EXAM DATE/TIME: 02/25/2024 2:57 PM COMPARISON: None. CLINICAL INDICATION/HISTORY: Thumb pain. TECHNIQUE: PA, lateral and oblique views of the first digit of the left hand are presented. FINDINGS: No acute fractures or subluxations are noted. The joint spaces are well preserved. The mineralization of the bones is normal. There is no significant soft tissue swelling. IMPRESSION IMPRESSION: No acute radiographic abnormalities seen in the first digit. Recreation Activities Coordinator: YONAS Transcribe Date/Time: Feb 25 2024 3:01P Dictated by : JOSE MIGUEL FIERRO MD This examination was interpreted and the report reviewed and electronically signed by: JOSE MIGUEL FIERRO MD on Feb 25 2024 3:04PM [facility] Radiology Study observation (narrative) Lavernan luz [facility] XR Finger - left AP and Late ral and obliqueOrdered By: Ccf Provider on 02-25-2024 [facility] STREP A MOLECULAR (POC)on Interpretation and review of laboratory results Abnormal [facility] Procedural Control Valid [facility] Strep A (POCT) Positive Abnormal Negative [facility] Laboratory - Hematology and Cell countson 10-27-2023 HbA1c (Bld) [Mass fraction] 6.6 % [facility] Basophil percentageOrdered B y: Tez Clement on 05-16-2023 Bilirubin [Mass/Vol] 0.50 mg/dL 0.20-1.00 [facility] Comment on above: For patients on eltr ombopag therapy, use of Dimension [place] TBIL is not recommended. Chloride [Moles/Vol] 105 mmol/L 98-107 [facility] Cholesterol [Mass/Vol] 179 mg/dL <200 [facility] Comment on above: <200 mg/dL Desirable 200-240 mg/dL Borderline >240 mg/dL High Risk Glucose [Mass/Vol] 165 mg/dL 74-106 [facility] Comment on above: Fasting Glucose resu lt greater than or equal to 126 mg/dL suggests DIABETES MELLITUS per A.D.A. criteria. Potassium [Moles/Vol] 4.4 mmol/L 3.5-5.1 [facility] Protein [Mass/Vol] 7.7 g/dL 6.4-8.2 [facility] Sodium [Moles/Vol] 137 mmol/L 136-145 [facility] Triglyceride [Mass/Vol] 183 mg/dL <199 [facility] Comment on above: The drugs N-Acetylcy steine and Metamizole may falsely depress this assay.Serum Triglycerides Reference Interval Normal <150 mg/dL Borderline high 150 - 199 mg/dL High 200 - 499 mg/dL Very High > or = 500 mg/dL Laboratory - Chemistry and C hemistry - challengeOrdered By: Tez Clement on 05-16-2023 ALP [Catalytic activity/Vol] 118 U/L 45-117 [facility] ALT [Catalytic activity/Vol] 44 U/L 16-61 [facility] CO2 [Moles/Vol] 25.0 mmol/L 21.0-32.0 [facility] Globulin (S) [Mass/Vol] 4.0 g/dL 2.2-4.2 [facility] Urea nitrogen/Creatinine [Mass ratio] 14.0 mg/mg 10-20 [facility] No Panel InformationOrdered By: Tez Clement on 05-16-2023 Estimated GFR (MDRD) Amer 92 mL/min >60 [facility] Comment on above: GFR Calc Estimated GFR (MDRD) Non-Af Amer 76 mL/min >60 [facility] Comment on above: Non- GFR Calc Thyroid Stimulating Hormone (TSH) 1.02 uIU/mL 0.358-3.74 [facility] Urine Microalbumin/Creatinine Ratio 8.9 mg/g CRE <30 [facility] Serum or plasma albumin angela urement (mass/volume)Ordered By: Tez Clement on 05-16-2023 Albumin [Mass/Vol] 3.7 g/dL 3.2-5.0 [facility] Serum or plasma albumin/glob ulin mass ratioOrdered By: Tez Clement on 05-16-2023 Albumin/Globulin [Mass ratio] 0.9 {ratio} 0.9-2.4 [facility] Serum or plasma calcium angela urement (mass/volume)Ordered By: Tez Clement on 05-16-2023 Calcium [Mass/Vol] 9.1 mg/dL 8.5-10.1 [facility] Serum or plasma cholesterol in HDL measurement (mass/volume)Ordered By: Tez Clement on 05-16-2023 Cholesterol in HDL [Mass/Vol] 45 mg/dL >40 [facility] Comment on above: The drugs N-Acetylcy steine and Metamizole may falsely depress this assay. Reference Range HDL <40 mg/dL Low HDL Cholesterol HDL >or= 60 mg/dL High HDL Cholesterol Serum or plasma cholesterol in VLDL measurement (mass/volume)Ordered By: Tez Clement on 05-16-2023 Cholesterol in VLDL [Mass/Vol] 37 mg/dL 5-40 [facility] Serum or plasma creatinine m easurement (mass/volume)Ordered By: Tez Clement on 05-16-2023 Creatinine [Mass/Vol] 1.14 mg/dL 0.70-1.30 [facility] Comment on above: The validity of the calculated GFR & GFRAA in patients over 70 years has not been determined. Clinical correlation is essential. Serum or plasma low density lipoprotein (LDL) cholesterol measurement (mass/volume)Ordered By: Tez Clement on 05-16-2023 Cholesterol in LDL [Mass/Vol] 97 mg/dL 0-130 [facility] Serum or plasma urea nitroge n measurement (mass/volume)Ordered By: Tez Clement on 05-16-2023 Urea nitrogen [Mass/Vol] 16 mg/dL 7-18 [facility] Thin prep Papanicolaou smear with manual screeningOrdered By: Tez Clement on 05-16-2023 Thin prep Papanicolaou smear with manual screening 34 U/L 15-37 [facility] Thin prep Papanicolaou smear with manual screening 7 5-15 [facility] Thin prep Papanicolaou smear with manual screening 11.0 mg/L NO RANGE EST. [facility] Urine creatinine measurement (mass/volume)Ordered By: Tez Clement on 05-16-2023 Creatinine (U) [Mass/Vol] 124.00 mg/dL NO RANGE EST. [facility] Laboratory - Hematology and Cell countson 05-08-2023 HbA1c (Bld) [Mass fraction] 6.9 % 4.2-6.3 [facility] XR Foot - right AP and Later al and obliqueon 03-14-2023 IMPRESSION: AP, lateral, and oblique views of the right foot have been obtained. Correlation is made with prior study of 12/10/2020. Patient has had prior resectioning of the fifth digit to the level of the proximal to mid fifth metatarsal shaft. There is irregularity involving the distal aspect of the proximal phalanx of the first toe possibly related to prior insult, with small bone fragment extending from or adjacent to the medial aspect of the distal proximal phalanx. There appears to be bone loss of the distal aspect of the proximal phalanx. Clinical correlation is needed. Recreation Activities Coordinator: YONAS Transcribe Date/Time: Mar 14 2023 4:07P Dictated by : ALE CAM MD This examination was interpreted and the report reviewed and electronically signed by: ALE CAM MD on Mar 14 2023 4:11PM EST DIVISION OF RADIOLOGY * * *Final Report* * * DATE OF EXAM: Mar 14 2023 3:59PM WOX [id number] - XR FOOT 3V AP/LAT/OBL RT / PROCEDURE REASON: Foot pain, right * * * * Physician Interpretation * * * * History: Right-sided foot pain FINDINGS/ DIVISION OF RADIOLOGY Provider, [facility] [place] - 03/14/2023 * * *Final Report* * * DATE OF EXAM: Mar 14 2023 3:59PM WOX 5337 - XR FOOT 3V AP/LAT/OBL RT / PROCEDURE REASON: Foot pain, right * * * * Physician Interpretation * * * * History: Right-sided foot pain FINDINGS/ IMPRESSION IMPRESSION: AP, lateral, and oblique views of the right foot have been obtained. Correlation is made with prior study of 12/10/2020. Patient has had prior resectioning of the fifth digit to the level of the proximal to mid fifth metatarsal shaft. There is irregularity involving the distal aspect of the proximal phalanx of the first toe possibly related to prior insult, with small bone fragment extending from or adjacent to the medial aspect of the distal proximal phalanx. There appears to be bone loss of the distal aspect of the proximal phalanx. Clinical correlation is needed. Recreation Activities Coordinator: YONAS Transcribe Date/Time: Mar 14 2023 4:07P Dictated by : ALE CAM MD This examination was interpreted and the report reviewed and electronically signed by: ALE CAM MD on Mar 14 2023 4:11PM EST [facility] Radiology Study observation (narrative) [facility] XR Foot - right AP and Later al and obliqueOrdered By: Cc Provider on 03-14-2023 [facility] Laboratory - Hematology and Cell countson 09-06-2022 HbA1c (Bld) [Mass fraction] 8.6 % [facility] XR Foot - left AP and Latera l and obliqueon 11-13-2020 IMPRESSION: Mild soft tissue swelling. No acute bony process. Recreation Activities Coordinator: YONAS Transcribe Date/Time: Nov 13 2020 11:57A Dictated by : SOILA MEDINA MD This examination was interpreted and the report reviewed and electronically signed by: SOILA MEDINA MD on Nov 13 2020 11:59AM EST DIVISION OF RADIOLOGY * * *Final Report* * * DATE OF EXAM: Nov 13 2020 11:37AM WOX 5336 - XR FOOT 3V AP/LAT/OBL LT / PROCEDURE REASON: Foot pain, left * * * * Physician Interpretation * * * * EXAMINATION: XR FOOT 3V AP/LAT/OBL LT HISTORY: Left plantar forefoot and midfoot pain x 1 week without a direct injury. Started hurting after mowing the lawn. Foot pain, left. TECHNIQUE: XR FOOT 3V AP/LAT/OBL LT Laterality: LEFT Number of different views (projections): 3 M: XB_1 COMPARISON: There are no prior relevant examinations available for comparison. RESULT: AP standing radiographs of the bilateral feet with oblique and lateral weightbearing views of the left foot show no acute osseous or articular process. Mild left forefoot soft tissue swelling is present. There is no underlying acute bony process. No gas within the soft tissues or bony destructive change. Remote transmetatarsal amputation of the right fifth metatarsal without interval complication. DIVISION OF RADIOLOGY Provider, [facility] - 11/13/2020 * * *Final Report* * * DATE OF EXAM: Nov 13 2020 11:37AM WOX 5336 - XR FOOT 3V AP/LAT/OBL LT / PROCEDURE REASON: Foot pain, left * * * * Physician Interpretation * * * * EXAMINATION: XR FOOT 3V AP/LAT/OBL LT HISTORY: Left plantar forefoot and midfoot pain x 1 week without a direct injury. Started hurting after mowing the lawn. Foot pain, left. TECHNIQUE: XR FOOT 3V AP/LAT/OBL LT Laterality: LEFT Number of different views (projections): 3 M: XB_1 COMPARISON: There are no prior relevant examinations available for comparison. RESULT: AP standing radiographs of the bilateral feet with oblique and lateral weightbearing views of the left foot show no acute osseous or articular process. Mild left forefoot soft tissue swelling is present. There is no underlying acute bony process. No gas within the soft tissues or bony destructive change. Remote transmetatarsal amputation of the right fifth metatarsal without interval complication. IMPRESSION IMPRESSION: Mild soft tissue swelling. No acute bony process. Recreation Activities Coordinator: YONAS Transcribe Date/Time: Nov 13 2020 11:57A Dictated by : SOILA MEDINA MD This examination was interpreted and the report reviewed and electronically signed by: SOILA MEDINA MD on Nov 13 2020 11:59AM EST [facility] Radiology Study observation (narrative) [facility] XR Foot - left AP and Latera l and obliqueOrdered By: Ccf Provider on 11-13-2020 [facility] Vital Signs Date Time Vital Sign Value Performing Clinician Facility 05-05-2025 14:58-0400 Body temperature 97.9 [degF] Dr. Josh Meier MD Work Phone: [facility] 05-05-2025 14:58-0400 Diastolic blood pressure 78 mm[Hg] Dr. Josh Meier MD Work Phone: [facility] 05-05-2025 14:58-0400 Heart rate 109 /min Dr. Josh Meier MD Work Phone: [facility] 05-05-2025 14:58-0400 Respiratory rate 16 /min Dr. Josh Meier MD Work Phone: [facility] 05-05-2025 14:58-0400 SaO2% (BldA) [Mass fraction] 100 % Dr. Josh Meier MD Work Phone: [facility] 05-05-2025 14:58-0400 Systolic blood pressure 105 mm[Hg] Dr. Josh Meier MD Work Phone: [facility] 05-05-2025 06:00-0400 Body mass index (BMI) [Ratio] 34 kg/m2 Dr. Josh Meier MD Work Phone: [facility] 05-05-2025 06:00-0400 Body weight 116.[address] Josh Meier MD Work Phone: [facility] 05-02-2025 14:49-0400 Body height 185.[address] Josh Meier MD Work Phone: [facility] 04-19-2025 09:41-0400 Body height 182.[address] Josh Meier MD Work Phone: [facility] 04-19-2025 09:41-0400 Body mass index (BMI) [Ratio] 35.8 kg/m2 Dr. Josh Meier MD Work Phone: [facility] 04-19-2025 09:41-0400 Body weight 119.[address] Josh Meier MD Work Phone: [facility] 04-04-2025 12:26-0400 Body height 182.[address] Josh Meier MD Work Phone: [facility] 04-04-2025 12:26-0400 Body mass index (BMI) [Ratio] 35.4 kg/m2 Dr. Josh Meier MD Work Phone: [facility] 04-04-2025 12:26-0400 Body temperature 97.2 [degF] Dr. Josh Meier MD Work Phone: [facility] 04-04-2025 12:26-0400 Body weight 118.[address] Josh Meier MD Work Phone: [facility] 04-04-2025 12:26-0400 Diastolic blood pressure 66 mm[Hg] Dr. Josh Meier MD Work Phone: [facility] 04-04-2025 12:26-0400 Heart rate 114 /min Dr. Josh Meier MD Work Phone: [facility] 04-04-2025 12:26-0400 Respiratory rate 18 /min Dr. Josh Meier MD Work Phone: [facility] 04-04-2025 12:26-0400 SaO2% (BldA) [Mass fraction] 97 % Dr. Josh Meier MD Work Phone: [facility] 04-04-2025 12:26-0400 Systolic blood pressure 118 mm[Hg] Dr. Josh Meier MD Work Phone: [facility] 03-11-2025 09:25-0400 Body height 182.[address] Josh Meier MD Work Phone: [facility] 03-11-2025 09:25-0400 Body mass index (BMI) [Ratio] 37.1 kg/m2 Dr. Josh Meier MD Work Phone: [facility] 03-11-2025 09:25-0400 Body weight 124.[address] Josh Meier MD Work Phone: [facility] 03-11-2025 09:25-0400 Diastolic blood pressure 84 mm[Hg] Dr. Josh Meier MD Work Phone: [facility] 03-11-2025 09:25-0400 Heart rate 94 /min Dr. Josh Meier MD Work Phone: [facility] 03-11-2025 09:25-0400 SaO2% (BldA) [Mass fraction] 98 % Dr. Josh Meier MD Work Phone: [facility] 03-11-2025 09:25-0400 Systolic blood pressure 127 mm[Hg] Dr. Josh Meier MD Work Phone: [facility] 03-02-2025 10:01-0400 Body mass index (BMI) [Ratio] 37.31 kg/m2 Krisjacinto Abbuddy PA Work Phone: [facility] 03-02-2025 10:01-0400 Body temperature 97.2 [degF] Krislyn Aberegg PA Work Phone: [facility] 03-02-2025 10:01-0400 Body weight 124.8 kg Krislycatrina Abbuddy PA Work Phone: [facility] 03-02-2025 10:01-0400 Diastolic blood pressure 70 mm[Hg] Krislycatrina Aberegg PA Work Phone: [facility] 03-02-2025 10:01-0400 Heart rate 102 /min Krislyn Aberegg PA Work Phone: [facility] 03-02-2025 10:01-0400 Respiratory rate 18 /min Krislyn Aberegg PA Work Phone: [facility] 03-02-2025 10:01-0400 SaO2% (BldA) [Mass fraction] 98 % Krislyn Aberegg PA Work Phone: [facility] 03-02-2025 10:01-0400 Systolic blood pressure 122 mm[Hg] Krislyn Aberegg PA Work Phone: [facility] 01-03-2025 11:39-0400 Body height 182.[address] Josh Meier MD Work Phone: [facility] 01-03-2025 11:39-0400 Body mass index (BMI) [Ratio] 37.8 kg/m2 Dr. Josh Meier MD Work Phone: [facility] 01-03-2025 11:39-0400 Body temperature 97.3 [degF] Dr. Josh Meier MD Work Phone: [facility] 01-03-2025 11:39-0400 Body weight 126.[address] Josh Meier MD Work Phone: [facility] 01-03-2025 11:39-0400 Diastolic blood pressure 64 mm[Hg] Dr. Josh Meier MD Work Phone: [facility] 01-03-2025 11:39-0400 Heart rate 96 /min Dr. Josh Meeir MD Work Phone: [facility] 01-03-2025 11:39-0400 Respiratory rate 16 /min Dr. Josh Meier MD Work Phone: [facility] 01-03-2025 11:39-0400 SaO2% (BldA) [Mass fraction] 97 % Dr. Josh Meier MD Work Phone: [facility] 01-03-2025 11:39-0400 Systolic blood pressure 108 mm[Hg] Dr. Josh Meier MD Work Phone: [facility] 11-08-2024 10:01-0400 Body height 182.[address] Josh Meier MD Work Phone: [facility] 11-08-2024 10:01-0400 Body mass index (BMI) [Ratio] 38.3 kg/m2 Dr. Josh Meier MD Work Phone: [facility] 11-08-2024 10:01-0400 Body temperature 97.2 [degF] Dr. Josh Meier MD Work Phone: [facility] 11-08-2024 10:01-0400 Body weight 128.[address] Josh Meier MD Work Phone: [facility] 11-08-2024 10:01-0400 Diastolic blood pressure 82 mm[Hg] Dr. Josh Meier MD Work Phone: [facility] 11-08-2024 10:01-0400 Heart rate 82 /min Dr. Josh Meier MD Work Phone: [facility] 11-08-2024 10:01-0400 Respiratory rate 18 /min Dr. Josh Meier MD Work Phone: [facility] 11-08-2024 10:01-0400 SaO2% (BldA) [Mass fraction] 97 % Dr. Josh Meier MD Work Phone: [facility] 11-08-2024 10:01-0400 Systolic blood pressure 140 mm[Hg] Dr. Josh Meier MD Work Phone: [facility] 10-08-2024 09:29-0400 Body mass index (BMI) [Ratio] 38.5 kg/m2 Dr. Josh Meier MD Work Phone: [facility] 10-08-2024 09:29-0400 Body weight 128.[address] Josh Meier MD Work Phone: [facility] 10-08-2024 09:29-0400 Diastolic blood pressure 81 mm[Hg] Dr. Josh Meier MD Work Phone: [facility] 10-08-2024 09:29-0400 Heart rate 94 /min Dr. Josh Meier MD Work Phone: [facility] 10-08-2024 09:29-0400 SaO2% (BldA) [Mass fraction] 97 % Dr. Josh Meier MD Work Phone: [facility] 10-08-2024 09:29-0400 Systolic blood pressure 122 mm[Hg] Dr. Josh Meier MD Work Phone: [facility] 02-25-2024 14:38-0400 Body mass index (BMI) [Ratio] 34.98 kg/m2 John Moomaw MOTION PICTURE OPERATOR.ACADEMIC REGISTRAR Work Phone: [facility] 02-25-2024 14:38-0400 Body temperature 97.5 [degF] John Moomaw MOTION PICTURE OPERATOR.ACADEMIC REGISTRAR Work Phone: [facility] 02-25-2024 14:38-0400 Body weight 117 kg John Moomaw MOTION PICTURE OPERATOR.ACADEMIC REGISTRAR Work Phone: [facility] 02-25-2024 14:38-0400 Diastolic blood pressure 74 mm[Hg] John Moomaw MOTION PICTURE OPERATOR.ACADEMIC REGISTRAR Work Phone: [facility] 02-25-2024 14:38-0400 Heart rate 88 /min John Moomaw MOTION PICTURE OPERATOR.ACADEMIC REGISTRAR Work Phone: [facility] 02-25-2024 14:38-0400 Respiratory rate 16 /min John Moomaw MOTION PICTURE OPERATOR.ACADEMIC REGISTRAR Work Phone: [facility] 02-25-2024 14:38-0400 SaO2% (BldA) [Mass fraction] 99 % John Moomaw MOTION PICTURE OPERATOR.ACADEMIC REGISTRAR Work Phone: [facility] 02-25-2024 14:38-0400 Systolic blood pressure 122 mm[Hg] John Moomaw MOTION PICTURE OPERATOR.ACADEMIC REGISTRAR Work Phone: [facility] 02-10-2024 12:13-0400 Body mass index (BMI) [Ratio] 35.28 kg/m2 Marc Clement MOTION PICTURE OPERATOR.ACADEMIC REGISTRAR Work Phone: [facility] 02-10-2024 12:13-0400 Body temperature 96.91 [degF] Marc Clement MOTION PICTURE OPERATOR.ACADEMIC REGISTRAR Work Phone: [facility] 02-10-2024 12:13-0400 Body weight 118 kg Marc Clement MOTION PICTURE OPERATOR.ACADEMIC REGISTRAR Work Phone: [facility] 02-10-2024 12:13-0400 Diastolic blood pressure 71 mm[Hg] Marc Clement MOTION PICTURE OPERATOR.ACADEMIC REGISTRAR Work Phone: [facility] 02-10-2024 12:13-0400 Heart rate 90 /min Marc Clement MOTION PICTURE OPERATOR.ACADEMIC REGISTRAR Work Phone: [facility] 02-10-2024 12:13-0400 Respiratory rate 18 /min Marc Clement MOTION PICTURE OPERATOR.ACADEMIC REGISTRAR Work Phone: [facility] 02-10-2024 12:13-0400 SaO2% (BldA) [Mass fraction] 99 % Marc Clement MOTION PICTURE OPERATOR.ACADEMIC REGISTRAR Work Phone: [facility] 02-10-2024 12:13-0400 Systolic blood pressure 100 mm[Hg] Marc Clement MOTION PICTURE OPERATOR.ACADEMIC REGISTRAR Work Phone: [facility] 01-02-2024 11:04-0400 Body mass index (BMI) [Ratio] 35.58 kg/m2 Iwona Mcduffie MOTION PICTURE OPERATOR.ACADEMIC REGISTRAR Work Phone: [facility] 01-02-2024 11:04-0400 Body temperature 100 [degF] Iwona Mcduffie APRN.ACADEMIC REGISTRAR Work Phone: [facility] 01-02-2024 11:04-0400 Body weight 119 kg Iwona Mcduffie APRN.ACADEMIC REGISTRAR Work Phone: [facility] 01-02-2024 11:04-0400 Diastolic blood pressure 80 mm[Hg] Iwona Mcduffie MOTION PICTURE OPERATOR.ACADEMIC REGISTRAR Work Phone: [facility] 01-02-2024 11:04-0400 Heart rate 97 /min Iwona Mcduffie APRN.ACADEMIC REGISTRAR Work Phone: [facility] 01-02-2024 11:04-0400 Respiratory rate 18 /min Iwona Mcduffie APRN.ACADEMIC REGISTRAR Work Phone: [facility] 01-02-2024 11:04-0400 SaO2% (BldA) [Mass fraction] 99 % Iwona Mcduffie APRN.ACADEMIC REGISTRAR Work Phone: [facility] 01-02-2024 11:04-0400 Systolic blood pressure 120 mm[Hg] Iwona Mcduffie MOTION PICTURE OPERATOR.ACADEMIC REGISTRAR Work Phone: [facility] 12-22-2023 14:21-0400 Body mass index (BMI) [Ratio] 35.82 kg/m2 Antonietta Miller MOTION PICTURE OPERATOR.ACADEMIC REGISTRAR Work Phone: [facility] 12-22-2023 14:21-0400 Body temperature 97.2 [degF] Antonietta Miller MOTION PICTURE OPERATOR.ACADEMIC REGISTRAR Work Phone: [facility] 12-22-2023 14:21-0400 Body weight 119.8 kg Antonietta Miller MOTION PICTURE OPERATOR.ACADEMIC REGISTRAR Work Phone: [facility] 12-22-2023 14:21-0400 Diastolic blood pressure 78 mm[Hg] Antonietta Miller MOTION PICTURE OPERATOR.ACADEMIC REGISTRAR Work Phone: [facility] 12-22-2023 14:21-0400 Heart rate 82 /min Antonietta Miller MOTION PICTURE OPERATOR.ACADEMIC REGISTRAR Work Phone: [facility] 12-22-2023 14:21-0400 Respiratory rate 16 /min Antoniettakatherin Miller MOTION PICTURE OPERATOR.ACADEMIC REGISTRAR Work Phone: [facility] 12-22-2023 14:21-0400 SaO2% (BldA) [Mass fraction] 97 % Antonietta Miller MOTION PICTURE OPERATOR.ACADEMIC REGISTRAR Work Phone: [facility] 12-22-2023 14:21-0400 Systolic blood pressure 122 mm[Hg] Antonietta Miller MOTION PICTURE OPERATOR.ACADEMIC REGISTRAR Work Phone: [facility] 12-01-2023 13:34-0400 Body mass index (BMI) [Ratio] 35.88 kg/m2 Iwona Mcduffie APRN.ACADEMIC REGISTRAR Work Phone: [facility] 12-01-2023 13:34-0400 Body temperature 97.7 [degF] Iwona Mcduffie APRN.ACADEMIC REGISTRAR Work Phone: [facility] 12-01-2023 13:34-0400 Body weight 120 kg Iwona Mcduffie APRN.ACADEMIC REGISTRAR Work Phone: [facility] 12-01-2023 13:34-0400 Diastolic blood pressure 72 mm[Hg] Iwona Mcduffie APRN.ACADEMIC REGISTRAR Work Phone: [facility] 12-01-2023 13:34-0400 Heart rate 94 /min Iwona Mcduffie APRN.ACADEMIC REGISTRAR Work Phone: [facility] 12-01-2023 13:34-0400 Respiratory rate 16 /min Iwona Mcduffie APRN.ACADEMIC REGISTRAR Work Phone: [facility] 12-01-2023 13:34-0400 SaO2% (BldA) [Mass fraction] 96 % Iwona Mcduffie APRN.ACADEMIC REGISTRAR Work Phone: [facility] 12-01-2023 13:34-0400 Systolic blood pressure 126 mm[Hg] Iwona Mcduffie APRN.ACADEMIC REGISTRAR Work Phone: [facility] 11-06-2023 09:22-0400 Body mass index (BMI) [Ratio] 35.9 kg/m2 Dr. Magdiel Hurst Work Phone: 7(833)037-307929 [place] [address] 11-06-2023 09:22-0400 Body temperature 97.5 [degF] Dr. Magdiel Hurst Work Phone: 9(907)570-408556 [place] [address] 11-06-2023 09:22-0400 Diastolic blood pressure 75 mm[Hg] Dr. Magdiel Hurst Work Phone: 6(766)379-035456 [place] [address] 11-06-2023 09:22-0400 Heart rate 101 /min Dr. Magdiel Hurst Work Phone: 7(349)930-147429 [place] [address] 11-06-2023 09:22-0400 Respiratory rate 18 /min Dr. Magdiel Hurst Work Phone: 0(831)207-949756 [place] [address] 11-06-2023 09:22-0400 Systolic blood pressure 138 mm[Hg] Dr. Magdiel Hurst Work Phone: 3(163)803-569556 [place] [address] 10-27-2023 09:01-0400 Body height 182.[address] Magdiel Hurst Work Phone: 5(380)794-185456 [place] [address] 10-27-2023 09:01-0400 Body mass index (BMI) [Ratio] 36.4 kg/m2 Dr. Magdiel Hurst Work Phone: 7(077)541-945556 [place] [address] 10-27-2023 09:01-0400 Body temperature 98.6 [degF] Dr. Magdiel Hurst Work Phone: 3(638)749-793429 [place] [address] 10-27-2023 09:01-0400 Body weight 122.[address] Magdiel Hurst Work Phone: 0(643)277-843856 [place] [address] 10-27-2023 09:01-0400 Diastolic blood pressure 86 mm[Hg] Dr. Magdiel Hurst Work Phone: 8(016)949-667556 [place] [address] 10-27-2023 09:01-0400 Heart rate 90 /min Dr. Magdiel Hurst Work Phone: 1(878)532-109056 [place] [address] 10-27-2023 09:01-0400 Respiratory rate 16 /min Dr. Magdiel Hurst Work Phone: [facility] 10-27-2023 09:01-0400 SaO2% (BldA) [Mass fraction] 98 % Dr. Magdiel Hurst Work Phone: [facility] 10-27-2023 09:01-0400 Systolic blood pressure 129 mm[Hg] Dr. Magdiel Hurst Work Phone: [facility] 10-13-2023 00:44-0400 Body weight 120.[address] Magdiel Hurst Work Phone: [facility] 10-09-2023 09:29-0400 Body mass index (BMI) [Ratio] 35.9 kg/m2 [facility] 10-09-2023 09:29-0400 Body temperature 98.9 [degF] [facility] 10-09-2023 09:29-0400 Diastolic blood pressure 83 mm[Hg] [facility] 10-09-2023 09:29-0400 Heart rate 106 /min [facility] 10-09-2023 09:29-0400 Respiratory rate 16 /min [facility] 10-09-2023 09:29-0400 Systolic blood pressure 125 mm[Hg] [facility] 09-12-2023 00:30-0500 Body weight 120.2 kg [facility] 09-11-2023 09:01-0500 Body mass index (BMI) [Ratio] 35.9 kg/m2 [facility] 09-11-2023 09:01-0500 Body temperature 96.5 [degF] [facility] 09-11-2023 09:01-0500 Diastolic blood pressure 97 mm[Hg] [facility] 09-11-2023 09:01-0500 Heart rate 92 /min [facility] 09-11-2023 09:01-0500 Respiratory rate 18 /min [facility] 09-11-2023 09:01-0500 Systolic blood pressure 140 mm[Hg] [facility] 08-14-2023 00:34-0500 Body weight 120.2 kg [facility] 08-07-2023 08:51-0500 Body height 182.[address] Magdiel Hurst Work Phone: 6(151)269-140856 [place] [address] 08-07-2023 08:51-0500 Body mass index (BMI) [Ratio] 35.9 kg/m2 Dr. Magdiel Hurst Work Phone: 4(575)011-409756 [place] [address] 08-07-2023 08:51-0500 Body temperature 96.6 [degF] Dr. Magdiel Hurst Work Phone: 6(831)321-175656 [place] [address] 08-07-2023 08:51-0500 Body weight 120.[address] Magdiel Hurst Work Phone: 9(356)993-909356 [place] [address] 08-07-2023 08:51-0500 Diastolic blood pressure 75 mm[Hg] Dr. Magdiel Hurst Work Phone: 9(779)753-629656 [place] [address] 08-07-2023 08:51-0500 Heart rate 94 /min Dr. Magdiel Hurst Work Phone: 4(203)591-374556 [place] [address] 08-07-2023 08:51-0500 Respiratory rate 18 /min Dr. Magdiel Hurst Work Phone: 0(599)577-836256 [place] [address] 08-07-2023 08:51-0500 Systolic blood pressure 122 mm[Hg] Dr. Magdiel Hurts Work Phone: 3(118)536-014856 [place] [address] 05-08-2023 09:45-0400 Body mass index (BMI) [Ratio] 34.6 kg/m2 Dr. Magdiel Hurst Work Phone: 3(734)505-000056 [place] [address] 05-08-2023 09:45-0400 Body temperature 97.8 [degF] Dr. Magdiel Hurst Work Phone: 9(682)864-509156 [place] [address] 05-08-2023 09:45-0400 Body weight 117.[address] Magdiel Hurst Work Phone: 5(491)689-444156 [place] [address] 05-08-2023 09:45-0400 Diastolic blood pressure 72 mm[Hg] Dr. Magdiel Hurst Work Phone: 2(052)119-652556 [place] [address] 05-08-2023 09:45-0400 Heart rate 82 /min Dr. Magdiel Hurst Work Phone: [facility] 05-08-2023 09:45-0400 Respiratory rate 18 /min Dr. Magdiel Hurst Work Phone: [facility] 05-08-2023 09:45-0400 SaO2% (BldA) [Mass fraction] 97 % Dr. Magdiel Hurst Work Phone: [facility] 05-08-2023 09:45-0400 Systolic blood pressure 136 mm[Hg] Dr. Magdiel Hurst Work Phone: [facility] 11-07-2022 15:18-0400 Body height 182.9 cm LUIS EDUARDO LEE MD [facility] 11-07-2022 15:18-0400 Body temperature 98.78 [degF] LUIS EDUARDO LEE MD [facility] 11-07-2022 15:18-0400 Body weight 114 kg LUIS EDUARDO LEE MD [facility] 11-07-2022 15:18-0400 Diastolic Blood Pressure Non-Invasive 85 1 LUIS EDUARDO LEE MD [facility] 11-07-2022 15:18-0400 Heart rate 102 /min LUIS EDUARDO LEE MD [facility] 11-07-2022 15:18-0400 Respiratory rate 18 /min LUIS EDUARDO LEE MD [facility] 11-07-2022 15:18-0400 Systolic Blood Pressure Non-Invasive 135 1 LUIS EDUARDO LEE MD [facility] 11-07-2022 13:46-0400 Body height 182.[address] Magdiel Hurst Work Phone: [facility] 11-07-2022 13:46-0400 Body mass index (BMI) [Ratio] 34.2 kg/m2 Dr. Magdiel Hurst Work Phone: [facility] 11-07-2022 13:46-0400 Body temperature 97.4 [degF] Dr. Magdiel Hurst Work Phone: [facility] 11-07-2022 13:46-0400 Body weight 114.[address] Magdiel Hurst Work Phone: [facility] 11-07-2022 13:46-0400 Diastolic blood pressure 80 mm[Hg] Dr. Magdiel Hurst Work Phone: [facility] 11-07-2022 13:46-0400 Heart rate 115 /min Dr. Magdiel Hurst Work Phone: [facility] 11-07-2022 13:46-0400 Respiratory rate 18 /min Dr. Magdiel Hurst Work Phone: [facility] 11-07-2022 13:46-0400 SaO2% (BldA) [Mass fraction] 100 % Dr. Magdiel Hurst Work Phone: [facility] 11-07-2022 13:46-0400 Systolic blood pressure 142 mm[Hg] Dr. Magdiel Hurst Work Phone: [facility] 11-07-2022 13:29-0400 Body temperature 99.9 [degF] Iwona Mcduffie APRN.ACADEMIC REGISTRAR Work Phone: [facility] 11-07-2022 13:29-0400 Body weight 115.12 kg Iwona Mcduffie APRN.ACADEMIC REGISTRAR Work Phone: [facility] 11-07-2022 13:29-0400 Diastolic blood pressure 86 mm[Hg] Iwona Mcduffie APRN.ACADEMIC REGISTRAR Work Phone: [facility] 11-07-2022 13:29-0400 Heart rate 116 /min Iwona Mcduffie APRN.ACADEMIC REGISTRAR Work Phone: [facility] 11-07-2022 13:29-0400 Respiratory rate 20 /min Iwona Mcduffie APRN.ACADEMIC REGISTRAR Work Phone: [facility] 11-07-2022 13:29-0400 SaO2% (BldA) [Mass fraction] 97 % Iwona Mcduffie APRN.ACADEMIC REGISTRAR Work Phone: [facility] 11-07-2022 13:29-0400 Systolic blood pressure 108 mm[Hg] Iwona Mcduffie APRN.ACADEMIC REGISTRAR Work Phone: [facility] 10-10-2022 09:27-0400 Body mass index (BMI) [Ratio] 35.6 kg/m2 Dr. Magdiel Hurst Work Phone: [facility] 10-10-2022 09:27-0400 Body temperature 98.6 [degF] Dr. Magdiel Hurst Work Phone: [facility] 10-10-2022 09:27-0400 Body weight 120.[address] Magdiel Hurst Work Phone: [facility] 10-10-2022 09:27-0400 Diastolic blood pressure 79 mm[Hg] Dr. Magdiel Hurst Work Phone: [facility] 10-10-2022 09:27-0400 Heart rate 105 /min Dr. Magdiel Hurst Work Phone: [facility] 10-10-2022 09:27-0400 Respiratory rate 18 /min Dr. Magdiel Hurst Work Phone: [facility] 10-10-2022 09:27-0400 SaO2% (BldA) [Mass fraction] 94 % Dr. Magdiel Hurst Work Phone: [facility] 10-10-2022 09:27-0400 Systolic blood pressure 123 mm[Hg] Dr. Magdiel Hurst Work Phone: [facility] 09-06-2022 09:09-0500 Body mass index (BMI) [Ratio] 34.9 kg/m2 Dr. Magdiel Hurst Work Phone: [facility] 09-06-2022 09:09-0500 Body temperature 96.5 [degF] Dr. Magdiel Hurst Work Phone: [facility] 09-06-2022 09:09-0500 Body weight 118.[address] Magdiel Hurst Work Phone: [facility] 09-06-2022 09:09-0500 Diastolic blood pressure 74 mm[Hg] Dr. Magdiel Hurst Work Phone: [facility] 09-06-2022 09:09-0500 Heart rate 94 /min Dr. Magdiel Hurst Work Phone: [facility] 09-06-2022 09:09-0500 Respiratory rate 18 /min Dr. Magdiel Hurst Work Phone: [facility] 09-06-2022 09:09-0500 SaO2% (BldA) [Mass fraction] 98 % Dr. Magdiel Hurst Work Phone: [facility] 09-06-2022 09:09-0500 Systolic blood pressure 124 mm[Hg] Dr. Magdiel Hurst Work Phone: [facility] 01-21-2022 07:29-0400 Body temperature 100.4 [degF] Andres Cheatham MD Work Phone: [facility] 01-21-2022 07:29-0400 Body weight 113.85 kg Andres Cheatham MD Work Phone: [facility] 01-21-2022 07:29-0400 Diastolic blood pressure 68 mm[Hg] Andres Cheatham MD Work Phone: [facility] 01-21-2022 07:29-0400 Heart rate 128 /min Andres Cheatham MD Work Phone: [facility] 01-21-2022 07:29-0400 Respiratory rate 20 /min Andres Cheatham MD Work Phone: [facility] 01-21-2022 07:29-0400 SaO2% (BldA) [Mass fraction] 98 % Andres Cheatham MD Work Phone: [facility] 01-21-2022 07:29-0400 Systolic blood pressure 118 mm[Hg] Andres Cheatham MD Work Phone: [facility] 12-19-2021 19:38-0400 Body temperature 96.69 [degF] Marc Urbano MOTION PICTURE OPERATOR.ACADEMIC REGISTRAR Work Phone: [facility] 12-19-2021 19:38-0400 Body weight 115.67 kg Marc Clement MOTION PICTURE OPERATOR.ACADEMIC REGISTRAR Work Phone: [facility] 12-19-2021 19:38-0400 Diastolic blood pressure 82 mm[Hg] Marc Clement MOTION PICTURE OPERATOR.ACADEMIC REGISTRAR Work Phone: [facility] 12-19-2021 19:38-0400 Heart rate 84 /min Marc Urbano MOTION PICTURE OPERATOR.ACADEMIC REGISTRAR Work Phone: [facility] 12-19-2021 19:38-0400 Respiratory rate 20 /min Marc Urbano MOTION PICTURE OPERATOR.ACADEMIC REGISTRAR Work Phone: [facility] 12-19-2021 19:38-0400 SaO2% (BldA) [Mass fraction] 96 % Marc Clement MOTION PICTURE OPERATOR.ACADEMIC REGISTRAR Work Phone: [facility] 12-19-2021 19:38-0400 Systolic blood pressure 120 mm[Hg] Marc Clement MOTION PICTURE OPERATOR.ACADEMIC REGISTRAR Work Phone: [facility] Encounters Encounter Date Encounter Type Care Provider Facility Start: 05-24-2025 ambulatory Deangelo Munoz ty:[facility] Start: 05-17-2025 End: 05-17-2025 ambulatory Deangelo Arroyo Facility:[facility] Start: 05-13-2025 End: 05-13-2025 ambulatory Annita Baez Facility:[facility] [place] Start: 05-10-2025 End: 05-10-2025 ambulatory Deangelo Arroyo Facility:[facility] Start: 05-05-2025 Dr. Khadar Casey DO [facility] Work Phone: Start: 05-04-2025 Dr. Khadar Casey DO - [facility] Work Phone: Start: 05-03-2025 Dr. Khadar Casey DO [facility] Work Phone: Start: 05-02-2025 Annita Baez [facility] Start: 05-02-2025 ambulatory Groom Raad Facility:[facility] Start: 05-02-2025 Dr. Khadar Casey - [facility] Work Phone: Start: 05-01-2025 Dr. Park Zamora MD - [facility] Work Phone: Start: 05-01-2025 Dr. Gabriele Tafoya MD [facility] Start: 04-30-2025 Dr. Gabriele Tafoya MD [facility] Start: 04-30-2025 Dr. Park Zamora MD - [facility] Work Phone: Start: 04-29-2025 Dr. Gabriele Tafoya MD [facility] Start: 04-29-2025 Dr. Jim Burger MD - [facility] Work Phone: Start: 04-28-2025 ambulatory Kristin Hernandes Facility :[facility] Start: 04-28-2025 End: 05-05-2025 Evaluation and management of inpatient Dr. Josh Meier MD Work Phone: -[facility] Start: 04-28-2025 End: 05-05-2025 Dr. Khadar Casey DO -[facility] Work Phone: Start: 04-26-2025 Dr. Kevin Santana DC [facility] Work Phone: Start: 04-26-2025 End: 04-26-2025 ambulatory Josh Meier Facility:[facility] Start: 04-19-2025 End: 04-19-2025 Patient encounter procedure Annita LIZAMA -[facility] Work Phone: Start: 04-19-2025 End: 04-19-2025 Annita LIZAMA -[facility] Work Phone: Start: 04-19-2025 End: 04-19-[address] Josh Meier MD Work Phone: -[facility] Start: 04-04-2025 End: 04-04-2025 Patient encounter procedure Antonietta Capps [employer] -[facility] Work Phone: Start: 04-04-2025 End: 04-04-2025 Antonietta Capps [employer]C -[facility] Work Phone: Start: 04-04-2025 End: 04-04-[address] Josh Mieer MD Work Phone: -[facility] Start: 03-25-2025 End: 03-25-[address] Josh Meier MD Work Phone: -Radiology [facility] Start: 03-25-2025 End: 03-25-[address] Kevin Santana [place] -Radiology [facility] Work Phone: Start: 03-25-2025 End: 03-25-2025 Dr. Kevin Santana [place] -Radiology [facility] Work Phone: Start: 03-25-2025 End: 03-25-2025 ambulatory Josh Meier Facility:[facility] Start: 03-11-2025 End: 03-11-[address] Tez Clement MD -[facility] Work Phone: Start: 03-11-2025 End: 03-11-2025 Dr. Tez Clement MD -[facility] Work Phone: Start: 03-11-2025 End: 03-11-[address] Josh Meier MD Work Phone: -[facility] Start: 03-03-2025 End: 03-04-2025 Follow-up encounter Josemanuel LIZAMA Work Phone: [facility] Start: 03-02-2025 End: 03-02-2025 Patient encounter procedure Josemanuel LIZAMA Work Phone: [facility] Comment on above: Urinary frequency (P rimary Dx); Acute left-sided low back pain without sciatica Start: 03-02-2025 End: 03-02-2025 ambulatory JOSH MEIER Facility:[facility] Start: 02-08-2025 ambulatory Josh Meier Facility :[facility] Start: 01-03-2025 End: 01-03-[address] Josh Meier MD -[facility] Work Phone: Start: 01-03-2025 End: 01-03-[address] Josh Meier MD Work Phone: [facility] Work Phone: Start: 12-27-2024 End: 12-27-[address] Josh Meier MD Work Phone: [facility] Work Phone: Start: 12-27-2024 End: 12-27-[address] Josh Meier MD -Physical Therapy Work Phone: Start: 12-27-[address] Danial Meier MD -Physical Therapy Work Phone: Start: 11-08-2024 End: 11-08-[address] Josh Meier MD -[facility] Work Phone: Start: 11-08-2024 End: 11-08-2024 ambulatory Josh Meier Facility:[facility] Start: 10-08-2024 End: 10-08-2024 ambulatory Tez Clement Facility:[facility] Start: 10-08-2024 End: 10-08-[address] Tez Clement MD -[facility] Work Phone: Start: 08-24-2024 ambulatory Josh Meier Facility :[facility] [place] Start: 06-24-2024 End: 07-05-2024 ambulatory George Ambrocio Facility:[facility] Start: 06-04-2024 End: 06-04-2024 ambulatory George Cristóbal Facility:[facility] Start: 06-03-2024 End: 06-12-2024 ambulatory George [place] Facility:[facility] Start: 05-31-2024 End: 05-31-2024 ambulatory [facility] Facility:[facility] Start: 03-22-2024 End: 04-12-2024 Telephone encounter No Pcp MOTION PICTURE OPERATOR [facility] Arnold hartman Comment on above: Patient Update Start: 02-25-2024 End: 02-25-2024 Subsequent hospital visit by physician X[facility] Work Phone: Radiology Comment on above: Thumb pain, left [[id number]] Start: 02-25-2024 End: 02-25-2024 Patient encounter procedure John [place] MOTION PICTURE OPERATOR.ACADEMIC REGISTRAR Work Phone: [facility] Comment on above: Thumb pain, left (Pr imary Dx) Start: 02-10-2024 End: 02-10-2024 Patient encounter procedure Marc Clement APRN.ACADEMIC REGISTRAR Work Phone: [facility] Comment on above: Sinobronchitis (Prim sammy Dx) Start: 01-02-2024 End: 01-02-2024 Patient encounter procedure Iwona Mcduffie MOTION PICTURE OPERATOR.ACADEMIC REGISTRAR Work Phone: [facility] Comment on above: Sore throat (Primary Dx); Strep throat Start: 12-22-2023 End: 12-22-2023 Patient encounter procedure Antonietta Miller MOTION PICTURE OPERATOR.ACADEMIC REGISTRAR Work Phone: [facility] Comment on above: Diarrhea, unspecifie d type (Primary Dx) Start: 12-01-2023 End: 12-01-2023 Patient encounter procedure Iwona Mcduffie APRN.ACADEMIC REGISTRAR Work Phone: [facility] Comment on above: Rhinosinusitis (Prim sammy Dx) Start: 11-06-2023 End: 11-11-[address] Magdiel Hurst Work Phone: [facility] Work Phone: Start: 11-06-2023 End: 11-11-[address] Magdiel Hurst Work Phone: [facility] Work Phone: Start: 10-27-2023 End: 10-27-[address] Magdiel Hurst Work Phone: [facility] Work Phone: Start: 10-09-2023 End: 10-12-2023 ambulatory [facility] Work Phone: Start: 10-09-2023 End: 10-12-2023 Discharged Recurring [facility] Work Phone: Start: 09-23-2023 ambulatory Erica rivera LPN [facility] Start: 09-23-2023 Telephone encounter Magdiel tabares MD Work Phone: [facility] Comment on above: Appointment Start: 09-11-2023 End: 09-11-2023 ambulatory [facility] Work Phone: Start: 09-11-2023 End: 09-11-2023 Discharged Recurring [facility] Work Phone: Start: 08-07-2023 End: 08-13-[address] Magdiel Hurst Work Phone: [facility] Work Phone: Start: 08-07-2023 End: 08-13-[address] Magdiel Hurst Work Phone: [facility] Work Phone: Start: 05-16-2023 End: 05-16-[address] Magdiel Hurst Work Phone: [facility]Laboratory Work Phone: Start: 05-08-2023 End: 05-08-[address] Magdiel Hurst Work Phone: [facility] Work Phone: Start: 03-14-2023 End: 03-14-2023 Subsequent hospital visit by physician [facility] Work Phone: Radiology Comment on above: Foot pain, right [M7 9.671] Start: 11-07-2022 End: 11-07-2022 Emergency department patient visit LUIS EDUARDO LEE MD Facility:B Start: 11-07-2022 End: 11-07-2022 Emergency department patient visit LUIS EDUARDO LEE MD [facility] Start: 11-07-2022 End: 11-07-2022 Emergency department patient visit Dr. Magdiel Hurst Work Phone: [facility]Emergency Department Start: 11-07-2022 End: 11-07-2022 Patient encounter procedure Iwona Mcduffie APRN.ACADEMIC REGISTRAR Work Phone: [facility] Comment on above: Skin infection (Prim sammy Dx) Start: 10-10-2022 End: 10-10-[address] Magdiel Hurst Work Phone: [facility] Start: 09-06-2022 End: 09-06-[address] Magdiel Hurst Work Phone: [facility] Start: 01-23-2022 Telephone encounter Chandra mena APRN.ACADEMIC REGISTRAR Work Phone: [facility] Comment on above: Results Start: 01-21-2022 End: 01-21-2022 Patient encounter procedure Andres Cheatham MD Work Phone: [facility] Comment on above: URI, acute (Primary Dx); Suspected COVID-19 virus infection Start: 12-19-2021 End: 12-19-2021 Patient encounter procedure Marc Clement APRN.CNP Work Phone: [facility] Comment on above: Skin infection (Prim sammy Dx) Start: 11-13-2020 End: 11-13-2020 Subsequent hospital visit by physician [facility] Work Phone: Radiology Comment on above: Foot pain, left [M79 .672] Procedures Date Procedure Procedure Detail Performing Clinician Start: 05-10-2025 Mean corpuscular hemoglobin concentration determination Dr. Josh Meier MD Work Phone: Start: 05-10-2025 Platelet mean volume determination Dr. Josh Meier MD Work Phone: Start: 05-05-[address] Josh Meier MD Work Phone: Start: 05-05-2025 Mean corpuscular hemoglobin concentration determination Dr. Josh Meier MD Work Phone: Start: 05-05-[address] Josh Goel Work Phone: Start: 05-05-2025 Nucleated red blood cell count procedure Dr. Josh Meier MD Work Phone: Start: 05-05-2025 Platelet mean volume determination Dr. Josh Meier MD Work Phone: Start: 05-03-[address] Josh Goel Work Phone: Start: 05-03-2025 Plain X-ray of toe Dr. Josh Goel Work Phone: Start: 05-01-[address] Josh Goel Work Phone: Start: 04-30-[address] Josh eMier MD Work Phone: Start: 04-30-[address] Josh Meier MD Work Phone: Start: 04-30-2025 Microbial culture, body fluid Dr. Josh Meier MD Work Phone: Start: 04-30-2025 Serum inorganic phosphate measurement Dr[address] Josh Meier MD Work Phone: Start: 04-29-[address] Josh Meier MD Work Phone: Start: 04-29-2025 End: 04-29-2025 Microbial culture, routine Dr. Josh lee MD Work Phone: Start: 04-29-[address] Josh Goel Work Phone: Start: 04-29-2025 CT of upper limb without contrast Dr. Josh Meier MD Work Phone: Start: 04-29-[address] Josh Meier MD Work Phone: Start: 04-29-2025 Total iron binding capacity measurement Dr. Josh Meier MD Work Phone: Start: 04-29-2025 Urine microscopy: red cells Dr. Josh Meier MD Work Phone: Start: 04-29-2025 Urnls dip stick/tablet reagent auto microscopy Dr. Josh Meier MD Work Phone: Start: 04-28-[address] Josh renee MD Work Phone: Start: 04-28-2025 Plain chest X-ray Dr. Josh Goel Work Phone: Start: 04-28-2025 Plain x-ray of elbow Dr. Josh Meier MD Work Phone: Start: 04-28-2025 Calculation of international normalized ratio Dr. Josh Meier MD Work Phone: Start: 04-28-[address] Josh Goel Work Phone: Start: 04-28-2025 Identification procedure for living organism Dr. Josh Meier MD Work Phone: Start: 04-26-2025 MRI of lumbar spine Dr. Josh Goel Work Phone: Start: 04-19-2025 X-ray of lumbosacral spine Dr. Josh lee MD Work Phone: Start: 03-25-2025 X-ray of lumbosacral spine Dr. Josh lee MD Work Phone: Start: 03-02-2025 Urnls dip stick/tablet rgnt auto w/o microscopy Andres Cheatham MD Work Phone: Start: 02-25-2024 Radex fingr minimum 2 views John Patton MOTION PICTURE OPERATOR.ACADEMIC REGISTRAR Work Phone: Start: 01-02-2024 STREP A MOLECULAR (POC) Iwona Mcduffie MOTION PICTURE OPERATOR.ACADEMIC REGISTRAR Work Phone: Start: 03-14-2023 Radex foot complete minimum 3 views Mirta Baez MOTION PICTURE OPERATOR.ACADEMIC REGISTRAR Work Phone: Start: 11-13-2020 Radex foot complete minimum 3 views Allison Mayorga PA-C Work Phone: Start: 08-05-2019 History of amputation of lesser toe Status post amputation of lesser toe of right foot Marc Clement APRN.ACADEMIC REGISTRAR Work Phone: Start: 01-18-2016 Adult depression screening assessment Marc Clement APRN.ACADEMIC REGISTRAR Work Phone: Plan of Treatment Date Care Activity Detail Author Start: 08-05-2029 Urine microalbumin profile [facility] Start: 05-10-2025 [facility]: [facility]05-[facility] Start: [facility] Start: 05-03-2025 Referral to service [facility] Start: 05-03-2025 End: 05-03-2025 [facility] Start: 05-03-2025 Care regimes management [facility] Start: 05-03-2025 Notification of physician [facility] Start: 04-30-2025 End: 05-01-2025 [facility] Start: 04-29-2025 [facility] Start: 04-29-2025 [facility] Start: 04-29-2025 Wound care [facility] Start: 04-29-2025 Bacterial nucleic ac id assay [facility] Start: 04-29-2025 Consultation for treatment [facility] Start: 04-29-2025 Consultation [facility] Start: 04-29-2025 End: 04-29-2025 [facility] Start: 04-29-2025 Care regimes management [facility] Start: 04-29-2025 Notification of physician [facility] Start: 04-28-2025 Care planning and pr oblem solving actions [facility] Start: 04-28-2025 Assessment of risk o f venous thromboembolism [facility] Start: 04-28-2025 Care regimes management [facility] Start: 04-28-2025 Consultation [facility] Start: 04-28-2025 Insertion of cathete r into peripheral vein [facility] Start: 04-28-2025 Measuring intake and output [facility] Start: 04-28-2025 Notification of physician [facility] Start: 04-28-2025 Patient referral to dietitian [facility] Start: 04-28-2025 Providing care accor ding to standard [facility] Start: 04-28-2025 Provision of activit y privileges [facility] Start: 04-28-2025 Referral for physica l therapy [facility] Start: 04-28-2025 Referral to occupati onal therapist [facility] Start: 04-28-2025 Referral to last turner [facility] Start: 04-28-2025 Vital signs measurements [facility] Start: 04-28-2025 End: 04-28-2025 [facility] Start: 04-28-2025 Following clinical pathway protocol [facility] Start: 04-28-2025 Admission procedure [facility] Start: 04-28-2025 Consultation [facility] Start: 04-28-2025 Patient referral to dietitian [facility] Start: 04-19-2025 X-ray of lumbosacral spine L/S Spine Bending Flex/Ext [facility] Start: 04-19-2025 XR Spine Lumbar and Sacrum Views [facility] Start: 03-14-2025 Influenza vaccination Influenza Vacc ine (#1) [facility] Start: 01-03-2025 Patient referral [facility] Work Phone: Start: 01-03-2025 Tobacco use cessatio n education [facility] Start: 11-08-2024 Patient referral [facility] Work Phone: Start: 05-25-2024 End: 05-25-2024 Patient encounter procedure 05/25/2024 2:20 PM EST Office Visit [facility] [address] [place], [place] [id number] Kevin Dozier MD [address] [place] [address] Establ[facility] Comment on above: [facility] Care Start: 05-16-2024 Hepatitis B screening Urine Albumin:Creatinine Ratio [facility] Start: 05-16-2024 Hepatitis B surface antibody level LDL Cholesterol [facility] Start: 03-14-2024 Covid-19 Vaccine ( season) Covid-19 Vaccine ( season) [facility] Start: 03-14-2024 Covid-19 Vaccine ( season) Covid-19 Vaccine ( season) [facility] Start: 03-14-2024 [facility] Start: 09-11-2023 Debridement subcutan eous tissue 20 sq cm/< DBRDMT SUBQ TIS 1ST 20SQCM/< [facility] Start: 07-14-2023 Behavioral Health Screening Behavioral Health Screening [facility] Start: 07-14-2023 Depression Assessment Depression Ass essment [facility] Start: 03-14-2023 Covid-19 Vaccine ( season) Covid-19 Vaccine ( season) [facility] Start: 03-14-2023 Influenza vaccination [facility] Start: 01-23-2023 ANNUAL PCP TEAM COFFEE SAMPLER LLOYD DISEASE VISIT ANNUAL PCP TEAM CHRONIC DISEASE VISIT [facility] Start: 07-14-20[address] [facility] Start: 03-14-2022 Influenza vaccination [facility] Start: 01-21-2022 End: 02-04-2022 Influenza virus A and B RNA and SARS-CoV-2 (COVID-19) N gene panel - Respiratory specimen by JUANCHO with probe detection COVID WITH FLUA+B, ROUTINE Microbiology Routine URI, acute Suspected COVID-19 virus infection Expected: 01/21/2022, Expires: 02/04/2022 [facility] Work Phone: Comment on above: Expected: 01/21/2022 , Expires: 02/04/2022 Start: 08-05-2020 ANNUAL PCP TEAM COFFEE SAMPLER LLOYD DISEASE VISIT ANNUAL PCP TEAM CHRONIC DISEASE VISIT [facility] Start: 05-20-2020 Glaucoma screening Dilated Retinal E xam [facility] Start: 05-20-2020 Hepatitis C antibody , confirmatory test DILATED RETINAL EXAM [facility] Start: 12-31-2019 3 comp foot exam completed DIABETIC FOOT EXAM [facility] Start: 12-31-2019 Diabetic foot examination Diabetic F oot Exam [facility] Start: 12-23-2019 Hemoglobin A1c measurement HbA1C [facility] Start: 12-23-2019 Hemoglobin A1c/Hemoglobin.total in Blood HBA1C [facility] Start: 01-17-2017 Adult depression screening assessment DEPRESSION SCREENING [facility] Start: 01-07-2017 Hepatitis B surface antibody level LDL CHOLESTEROL [facility] Start: 05-29-2016 Hepatitis B screening URINE ALBUMIN:CREATININE RATIO [facility] Start: 2012 HPV Vaccine (1 - 3-d ose SCDM series) HPV Vaccine (1 - 3-dose SCDM series) [facility] Start: 02-20-2011 PNEUMOCOCCAL (2 - PCV) PNEUMOCOCCAL (2 - PCV) [facility] Start: 02-20-2011 Pneumococcal vaccination Pneum ococcal Vaccine (2 of 2 - PCV) [facility] Start: 2003 Anxiety Screening Anxiety Screening [facility] Start: 2003 Depression Screening Depression Scre ening [facility] Start: 2003 HIV SCREENING HIV SCREENING [facility] Start: 2003 HIV screening HIV Screening [facility] Start: 1990 COVID-19 VACCINE (#1) COVID-19 VACCI NE (#1) [facility] Start: 1985 COVID-19 VACCINE (#1) COVID-19 VACCI NE (#1) [facility] Bacteria identified in Urine by Culture BACTERIAL CULTURE, URINE Microbiology Routine Urinary frequency Acute left-sided low back pain without sciatica Ordered: 03/02/2025 [facility] Work Phone: Comment on above: Ordered: 03/02/2025 Chlamydia trachomatis+Neisseria gonorrhoeae DNA [Presence] in Unspecified specimen by JUANCHO with probe detection GONORRHEA/CHLAMYDIA NAAT Lab Routine Urinary frequency 03/02/2025 3:12 PM EDT [facility] Lipid 1996 panel - S [place] or Plasma [facility] MR Lower Extremity Joint [facility] Patient referral [facility] Work Phone: Thyroid stimulating hormone measurement [facility] Tobacco use cessatio n education [facility] TRICHOMONAS VAGINALI S NAAT TRICHOMONAS VAGINALIS NAAT Lab Routine Urinary frequency 03/02/2025 3:12 PM EDT [facility] Urine microalbumin/creatinine ratio measurement [facility] Immunizations Immunization Date Immunization Notes Care Provider Renae esparza 08-05-2019 tetanus toxoid, redu huyen diphtheria toxoid, and acellular pertussis vaccine, adsorbed Marc Clement MOTION PICTURE OPERATOR.ACADEMIC REGISTRAR Work Phone: [facility] 02-20-2010 pneumococcal polysaccharide vaccine, 23 valent Marc Clement MOTION PICTURE OPERATOR.ACADEMIC REGISTRAR Work Phone: [facility] Payers Date Payer Category Payer Self-pay [id number] 2022 Unknown [id number] 2018 Medicaid [employer] [id number] 2018-Present [phone] [address] [place] [address] Medicaid [id number] 2018 Medicaid [id number]. [id number] 1985 Unknown [id number] 2.16.840.1.300432.3.579.2.627 Unknown [employer] [id number] [facility] [id number] Unknown [id number] Unknown [id number] 2.16.840.1.196819.3.579.2.462 Unknown [id number] 2.16840.1.506046.3.579.2.462 Unknown [id number] 2.16840.1.975047.3.579.2.462 Unknown [id number] 2.16840.1.629271.3.579.2.462 Unknown [id number] 2.16840.1.299300.3.579.2.462 Unknown [id number] 2.16.840.1.268361.3.579.2.462 Unknown [id number] 2.16.840.1.570866.3.579.2.462 Unknown [id number] 2.16.840.1.970108.3.579.2.462 Unknown [id number] 2.16840.1.551190.3.579.2.462 Unknown [id number] 2.16840.1.167693.3.579.2.462 Unknown [id number] 2.16.840.1.845728.3.579.2.462 Unknown [id number] 2.840.1.902843.3.579.2.462 Unknown [id number] 2.16.840.1.016299.3.579.2.462 Unknown [id number] 2..840.1.974179.3.579.2.462 Unknown [id number] 2.840.1.416857.3.579.2.462 Unknown [id number] .840.1.425653.3.579.2.462 Unknown [id number] 2.840.1.598393.3.579.2.462 Unknown [id number] 2.840.1.257944.3.579.2.462 Unknown [id number] 2.840.1.408565.3.579.2.462 Unknown [id number] 2.840.1.449321.3.579.2.462 Unknown [id number] 2.840.1.438713.3.579.2.462 Unknown [id number] 2.840.1.924419.3.579.2.462 Unknown [id number] 2.840.1.309271.3.579.2.462 Unknown [id number] 2.840.1.314254.3.579.2.462 Unknown [id number] 2.840.1.900804.3.579.2.462 Unknown [id number] 2.840.1.481069.3.579.2.462 Unknown [id number] 2.840.1.054542.3.579.2.462 Unknown [id number] 2.840.1.965671.3.579.2.462 Unknown [id number] 2.840.1.584356.3.579.2.462 Unknown [id number] 2.16.840.1.730338.3.579.2.462 Unknown [id number] 2.16.840.1.477060.3.579.2.462 Unknown [id number] 2.16.840.1.325051.3.579.2.462 Unknown [id number] 2.16.840.1.503473.3.579.2.462 Unknown [id number] 2.16.840.1.671222.3.579.2.462 Unknown [id number] 2.16.840.1.618459.3.579.2.462 Social History Date Type Detail Facility Start: 08-05-2019 End: 04-30-2025 Tobacco smoking status NHIS Ex-smoker [facility] Work Phone: End: 07-22-2019 History of tobacco use Current smoker [facility] Work Phone: End: 07-22-2019 History of tobacco use Cigarette Smoker [facility] Work Phone: Start: 08-05-2019 End: 07-26-2022 Cigarettes smoked current (pack per day) - Reported 0.5 [facility] Start: 08-05-2019 End: 11-07-2022 Tobacco use and exposure Smokeless tobacco non-user [facility] Work Phone: Start: 12-19-2021 End: 02-25-2024 Alcohol intake Current non-drinker of alcohol (finding) [facility] Start: 1985 Sex Assigned At Male [facility] Work Phone: Start: 10-14-2020 End: 01-21-2022 Exposure to SARS-CoV-2 (event) Not sure [facility] Work Phone: Start: 01-13-2022 End: 01-23-2022 Exposure to SARS-CoV-2 (event) Yes [facility] Start: 10-10-2022 End: 10-27-2023 Tobacco smoking status NEIS Unknown if ever smoked [facility] Start: 07-22-2019 None [facility] Start: 07-22-2019 Spouse/ Significant Other [facility] Start: 07-22-2019 Cigarettes [facility] Start: 01-23-2022 History SDOH Social Connections Phone 98 [facility] Start: 01-23-2022 History SDOH Social Connections Membership 2 [facility] Start: 01-23-2022 History SDOH Social Connections Meetings 1 [facility] Start: 01-23-2022 History SDOH Social Connections Living 3 [facility] Start: 01-23-2022 History SDOH Physical Activity DPW 4 [facility] Tobacco Nicotine Use: Va ping Product in Last 90 Days. [facility] Tobacco smoking status No Smokin g Status Entered [facility] Start: 01-23-2022 End: 07-26-2022 Social connection and isolation panel [facility] Start: 06-14-2012 In a typical week, how many times do you talk on the telephone with family, friends, or neighbors? Patient declined [facility] Do you belong to any clubs or organizations such as jainism groups, unions, fraternal or athletic groups, or school groups? No [facility] Are you now , , , , never or living with a partner? [facility] Do you feel stress - tense, restless, nervous, or anxious, or unable to sleep at night because your mind is troubled all the time - these days [OSQ] Not at all [facility] Start: 12-02-2019 Gender identity Identifies as male gender (finding) [facility] Work Phone: Start: 12-02-2019 Sexual orientation Heterosexual (finding) [facility] Work Phone: Start: 09-14-2024 Tobacco smoking status NHIS Smokes tobacco daily (finding) [facility] Start: 06-04-2024 Tobacco Use Tobacco Use [facility] Medical Equipment Procedure Code Equipment Code Equipment Origin al Text Equipment Identifier Dates [id number], [id number], [id number] Start: 06-23-2019 Comment on above: Test blood sugar(s) 6 times daily. Dx: e10.65. Insulin: Yes USE 1 NEEDLE FOR EAC H DOSE 6 TIMES DAILY Test blood sugar(s) 6x daily. Dx: e10.65. Insulin: Yes Blood Sugar Diagnostic (Freestyle Lite Strips) strip Start: 10-05-2021 Lancets (Freesty le Lancets) 28 gauge misc Start: 09-06-2022 Pen Needle, Diabetic (Bd Ultra-Fine Amy Pen Needle) 32 gauge x 5/32 needle Start: 09-06-2022 Blood Sugar Diagnostic (Freestyle Lite Strips) strip Start: 10-14-2019 End: 09-07-2020 Blood Sugar Diagnostic (Freestyle Lite Strips) strip Start: 09-07-2020 End: 10-05-2021 Blood Sugar Diagnostic (Freestyle Test) strip Start: 07-13-2018 End: 07-13-2018 Blood Sugar Diagnostic (True Metrix Glucose Test Strip) strip Start: 02-09-2018 End: 02-11-2018 Blood Sugar Diagnostic (True Metrix Glucose Test Strip) strip Start: 02-11-2018 End: 07-13-2018 Blood Sugar Diagnostic (True Metrix Glucose Test Strip) strip Start: 10-08-2021 End: 10-10-2022 Lancets (Freesty le Lancets) 28 gauge misc Start: 10-14-2019 End: 09-07-2020 Lancets (Freesty le Lancets) 28 gauge misc Start: 09-07-2020 End: 09-06-2022 Pen Needle, Diabetic (Bd Ultra-Fine Amy Pen Needle) 32 gauge x 5/32 needle Start: 10-14-2019 End: 04-05-2020 Pen Needle, Diabetic (Bd Ultra-Fine Amy Pen Needle) 32 gauge x 5/32 needle Start: 02-16-2021 End: 10-05-2021 Pen Needle, Diabetic (Bd Ultra-Fine Amy Pen Needle) 32 gauge x 5/32 needle Start: 10-05-2021 End: 01-04-2022 Pen Needle, Diabetic (Bd Ultra-Fine Amy Pen Needle) 32 gauge x 5/32 needle Start: 01-04-2022 End: 09-06-2022 Pen Needle, Diabetic (Bd Ultra-Fine Amy Pen Needle) 32 gauge x 5/32 needle Start: 04-05-2020 End: 08-01-2020 Pen Needle, Diabetic (Bd Ultra-Fine Amy Pen Needle) 32 gauge x 5/32 needle Start: 08-01-2020 End: 02-16-2021 Blood Sugar Diagnostic (Freestyle Lite Strips) strip Start: 10-05-2021 Lancets (Freesty le Lancets) 28 gauge misc Start: 09-06-2022 Pen Needle, Diabetic (Bd Ultra-Fine Amy Pen Needle) 32 gauge x 5/32 needle Start: 05-08-2023 Blood Sugar Diagnostic (Freestyle Lite Strips) strip Start: 10-14-2019 End: 09-07-2020 Blood Sugar Diagnostic (Freestyle Lite Strips) strip Start: 09-07-2020 End: 10-05-2021 Blood Sugar Diagnostic (Freestyle Test) strip Start: 07-13-2018 End: 07-13-2018 Blood Sugar Diagnostic (True Metrix Glucose Test Strip) strip Start: 02-09-2018 End: 02-11-2018 Blood Sugar Diagnostic (True Metrix Glucose Test Strip) strip Start: 02-11-2018 End: 07-13-2018 Blood Sugar Diagnostic (True Metrix Glucose Test Strip) strip Start: 10-08-2021 End: 10-10-2022 Lancets (Freesty le Lancets) 28 gauge misc Start: 10-14-2019 End: 09-07-2020 Lancets (Freesty le Lancets) 28 gauge misc Start: 09-07-2020 End: 09-06-2022 Pen Needle, Diabetic (Bd Ultra-Fine Amy Pen Needle) 32 gauge x 5/32 needle Start: 10-14-2019 End: 04-05-2020 Pen Needle, Diabetic (Bd Ultra-Fine Amy Pen Needle) 32 gauge x 5/32 needle Start: 02-16-2021 End: 10-05-2021 Pen Needle, Diabetic (Bd Ultra-Fine Amy Pen Needle) 32 gauge x 5/32 needle Start: 10-05-2021 End: 01-04-2022 Pen Needle, Diabetic (Bd Ultra-Fine Amy Pen Needle) 32 gauge x 5/32 needle Start: 01-04-2022 End: 09-06-2022 Pen Needle, Diabetic (Bd Ultra-Fine Amy Pen Needle) 32 gauge x 5/32 needle Start: 09-06-2022 End: 05-08-2023 Pen Needle, Diabetic (Bd Ultra-Fine Amy Pen Needle) 32 gauge x 5/32 needle Start: 04-05-2020 End: 08-01-2020 Pen Needle, Diabetic (Bd Ultra-Fine Amy Pen Needle) 32 gauge x 5/32 needle Start: 08-01-2020 End: 02-16-2021 Blood Sugar Diagnostic (Freestyle Lite Strips) strip Start: 10-05-2021 Lancets (Freesty le Lancets) 28 gauge misc Start: 09-06-2022 Pen Needle, Diabetic (Bd Ultra-Fine Amy Pen Needle) 32 gauge x 5/32 needle Start: 05-08-2023 Blood Sugar Diagnostic (Freestyle Lite Strips) strip Start: 10-14-2019 End: 09-07-2020 Blood Sugar Diagnostic (Freestyle Lite Strips) strip Start: 09-07-2020 End: 10-05-2021 Blood Sugar Diagnostic (Freestyle Test) strip Start: 07-13-2018 End: 07-13-2018 Blood Sugar Diagnostic (True Metrix Glucose Test Strip) strip Start: 02-09-2018 End: 02-11-2018 Blood Sugar Diagnostic (True Metrix Glucose Test Strip) strip Start: 02-11-2018 End: 07-13-2018 Blood Sugar Diagnostic (True Metrix Glucose Test Strip) strip Start: 10-08-2021 End: 10-10-2022 Lancets (Freesty le Lancets) 28 gauge misc Start: 10-14-2019 End: 09-07-2020 Lancets (Freesty le Lancets) 28 gauge misc Start: 09-07-2020 End: 09-06-2022 Pen Needle, Diabetic (Bd Ultra-Fine Amy Pen Needle) 32 gauge x 5/32 needle Start: 10-14-2019 End: 04-05-2020 Pen Needle, Diabetic (Bd Ultra-Fine Amy Pen Needle) 32 gauge x 5/32 needle Start: 02-16-2021 End: 10-05-2021 Pen Needle, Diabetic (Bd Ultra-Fine Amy Pen Needle) 32 gauge x 5/32 needle Start: 10-05-2021 End: 01-04-2022 Pen Needle, Diabetic (Bd Ultra-Fine Amy Pen Needle) 32 gauge x 5/32 needle Start: 01-04-2022 End: 09-06-2022 Pen Needle, Diabetic (Bd Ultra-Fine Amy Pen Needle) 32 gauge x 5/32 needle Start: 09-06-2022 End: 05-08-2023 Pen Needle, Diabetic (Bd Ultra-Fine Amy Pen Needle) 32 gauge x 5/32 needle Start: 04-05-2020 End: 08-01-2020 Pen Needle, Diabetic (Bd Ultra-Fine Amy Pen Needle) 32 gauge x 5/32 needle Start: 08-01-2020 End: 02-16-2021 Blood Sugar Diagnostic (Freestyle Lite Strips) strip Start: 10-05-2021 Lancets (Freesty le Lancets) 28 gauge misc Start: 09-06-2022 Pen Needle, Diabetic (Bd Ultra-Fine Amy Pen Needle) 32 gauge x 5/32 needle Start: 05-08-2023 Blood Sugar Diagnostic (Freestyle Lite Strips) strip Start: 10-14-2019 End: 09-07-2020 Blood Sugar Diagnostic (Freestyle Lite Strips) strip Start: 09-07-2020 End: 10-05-2021 Blood Sugar Diagnostic (Freestyle Test) strip Start: 07-13-2018 End: 07-13-2018 Blood Sugar Diagnostic (True Metrix Glucose Test Strip) strip Start: 02-09-2018 End: 02-11-2018 Blood Sugar Diagnostic (True Metrix Glucose Test Strip) strip Start: 02-11-2018 End: 07-13-2018 Blood Sugar Diagnostic (True Metrix Glucose Test Strip) strip Start: 10-08-2021 End: 10-10-2022 Lancets (Freesty le Lancets) 28 gauge misc Start: 10-14-2019 End: 09-07-2020 Lancets (Freesty le Lancets) 28 gauge misc Start: 09-07-2020 End: 09-06-2022 Pen Needle, Diabetic (Bd Ultra-Fine Amy Pen Needle) 32 gauge x 5/32 needle Start: 10-14-2019 End: 04-05-2020 Pen Needle, Diabetic (Bd Ultra-Fine Amy Pen Needle) 32 gauge x 5/32 needle Start: 02-16-2021 End: 10-05-2021 Pen Needle, Diabetic (Bd Ultra-Fine Amy Pen Needle) 32 gauge x 5/32 needle Start: 10-05-2021 End: 01-04-2022 Pen Needle, Diabetic (Bd Ultra-Fine Amy Pen Needle) 32 gauge x 5/32 needle Start: 01-04-2022 End: 09-06-2022 Pen Needle, Diabetic (Bd Ultra-Fine Amy Pen Needle) 32 gauge x 5/32 needle Start: 09-06-2022 End: 05-08-2023 Pen Needle, Diabetic (Bd Ultra-Fine Amy Pen Needle) 32 gauge x 5/32 needle Start: 04-05-2020 End: 08-01-2020 Pen Needle, Diabetic (Bd Ultra-Fine Amy Pen Needle) 32 gauge x 5/32 needle Start: 08-01-2020 End: 02-16-2021 Blood Sugar Diagnostic (Freestyle Lite Strips) strip Start: 10-05-2021 Lancets (Freesty le Lancets) 28 gauge misc Start: 09-06-2022 Pen Needle, Diabetic (Bd Ultra-Fine Amy Pen Needle) 32 gauge x 5/32 needle Start: 05-08-2023 Blood Sugar Diagnostic (Freestyle Lite Strips) strip Start: 10-14-2019 End: 09-07-2020 Blood Sugar Diagnostic (Freestyle Lite Strips) strip Start: 09-07-2020 End: 10-05-2021 Blood Sugar Diagnostic (Freestyle Test) strip Start: 07-13-2018 End: 07-13-2018 Blood Sugar Diagnostic (True Metrix Glucose Test Strip) strip Start: 02-09-2018 End: 02-11-2018 Blood Sugar Diagnostic (True Metrix Glucose Test Strip) strip Start: 02-11-2018 End: 07-13-2018 Blood Sugar Diagnostic (True Metrix Glucose Test Strip) strip Start: 10-08-2021 End: 10-10-2022 Lancets (Freesty le Lancets) 28 gauge misc Start: 10-14-2019 End: 09-07-2020 Lancets (Freesty le Lancets) 28 gauge misc Start: 09-07-2020 End: 09-06-2022 Pen Needle, Diabetic (Bd Ultra-Fine Amy Pen Needle) 32 gauge x 5/32 needle Start: 10-14-2019 End: 04-05-2020 Pen Needle, Diabetic (Bd Ultra-Fine Amy Pen Needle) 32 gauge x 5/32 needle Start: 02-16-2021 End: 10-05-2021 Pen Needle, Diabetic (Bd Ultra-Fine Amy Pen Needle) 32 gauge x 5/32 needle Start: 10-05-2021 End: 01-04-2022 Pen Needle, Diabetic (Bd Ultra-Fine Amy Pen Needle) 32 gauge x 5/32 needle Start: 01-04-2022 End: 09-06-2022 Pen Needle, Diabetic (Bd Ultra-Fine Amy Pen Needle) 32 gauge x 5/32 needle Start: 09-06-2022 End: 05-08-2023 Pen Needle, Diabetic (Bd Ultra-Fine Amy Pen Needle) 32 gauge x 5/32 needle Start: 04-05-2020 End: 08-01-2020 Pen Needle, Diabetic (Bd Ultra-Fine Amy Pen Needle) 32 gauge x 5/32 needle Start: 08-01-2020 End: 02-16-2021 Blood Sugar Diagnostic (Freestyle Lite Strips) strip Start: 10-05-2021 Blood Sugar Diagnostic (True Metrix Glucose Test Strip) strip Start: 09-13-2024 Lancets (Freesty le Lancets) 28 gauge misc Start: 09-06-2022 Pen Needle, Diabetic (Bd Ultra-Fine Amy Pen Needle) 32 gauge x 5/32 needle Start: 10-12-2024 Blood Sugar Diagnostic (Freestyle Lite Strips) strip Start: 10-14-2019 End: 09-07-2020 Blood Sugar Diagnostic (Freestyle Lite Strips) strip Start: 09-07-2020 End: 10-05-2021 Blood Sugar Diagnostic (Freestyle Test) strip Start: 07-13-2018 End: 07-13-2018 Blood Sugar Diagnostic (True Metrix Glucose Test Strip) strip Start: 02-09-2018 End: 02-11-2018 Blood Sugar Diagnostic (True Metrix Glucose Test Strip) strip Start: 02-11-2018 End: 07-13-2018 Blood Sugar Diagnostic (True Metrix Glucose Test Strip) strip Start: 10-08-2021 End: 10-10-2022 Lancets (Freesty le Lancets) 28 gauge misc Start: 10-14-2019 End: 09-07-2020 Lancets (Freesty le Lancets) 28 gauge misc Start: 09-07-2020 End: 09-06-2022 Pen Needle, Diabetic (Bd Ultra-Fine Amy Pen Needle) 32 gauge x 5/32 needle Start: 10-14-2019 End: 04-05-2020 Pen Needle, Diabetic (Bd Ultra-Fine Amy Pen Needle) 32 gauge x 5/32 needle Start: 02-16-2021 End: 10-05-2021 Pen Needle, Diabetic (Bd Ultra-Fine Amy Pen Needle) 32 gauge x 5/32 needle Start: 10-05-2021 End: 01-04-2022 Pen Needle, Diabetic (Bd Ultra-Fine Amy Pen Needle) 32 gauge x 5/32 needle Start: 01-04-2022 End: 09-06-2022 Pen Needle, Diabetic (Bd Ultra-Fine Amy Pen Needle) 32 gauge x 5/32 needle Start: 09-06-2022 End: 05-08-2023 Pen Needle, Diabetic (Bd Ultra-Fine Amy Pen Needle) 32 gauge x 5/32 needle Start: 05-08-2023 End: 03-22-2024 Pen Needle, Diabetic (Bd Ultra-Fine Amy Pen Needle) 32 gauge x 5/32 needle Start: 03-22-2024 End: 09-15-2024 Pen Needle, Diabetic (Bd Ultra-Fine Amy Pen Needle) 32 gauge x 5/32 needle Start: 04-05-2020 End: 08-01-2020 Pen Needle, Diabetic (Bd Ultra-Fine Amy Pen Needle) 32 gauge x 5/32 needle Start: 08-01-2020 End: 02-16-2021 Pen Needle, Diabetic (Bd Ultra-Fine Amy Pen Needle) 32 gauge x 5/32 needle Start: 09-15-2024 End: 10-12-2024 Blood Sugar Diagnostic (Freestyle Lite Strips) strip Start: 10-05-2021 Blood Sugar Diagnostic (True Metrix Glucose Test Strip) strip Start: 09-13-2024 Lancets (Freesty le Lancets) 28 gauge misc Start: 09-06-2022 Pen Needle, Diabetic (Bd Ultra-Fine Amy Pen Needle) 32 gauge x 5/32 needle Start: 10-12-2024 Blood Sugar Diagnostic (Freestyle Lite Strips) strip Start: 10-14-2019 End: 09-07-2020 Blood Sugar Diagnostic (Freestyle Lite Strips) strip Start: 09-07-2020 End: 10-05-2021 Blood Sugar Diagnostic (Freestyle Test) strip Start: 07-13-2018 End: 07-13-2018 Blood Sugar Diagnostic (True Metrix Glucose Test Strip) strip Start: 02-09-2018 End: 02-11-2018 Blood Sugar Diagnostic (True Metrix Glucose Test Strip) strip Start: 02-11-2018 End: 07-13-2018 Blood Sugar Diagnostic (True Metrix Glucose Test Strip) strip Start: 10-08-2021 End: 10-10-2022 Lancets (Freesty le Lancets) 28 gauge misc Start: 10-14-2019 End: 09-07-2020 Lancets (Freesty le Lancets) 28 gauge misc Start: 09-07-2020 End: 09-06-2022 Pen Needle, Diabetic (Bd Ultra-Fine Amy Pen Needle) 32 gauge x 5/32 needle Start: 10-14-2019 End: 04-05-2020 Pen Needle, Diabetic (Bd Ultra-Fine Amy Pen Needle) 32 gauge x 5/32 needle Start: 02-16-2021 End: 10-05-2021 Pen Needle, Diabetic (Bd Ultra-Fine Amy Pen Needle) 32 gauge x 5/32 needle Start: 10-05-2021 End: 01-04-2022 Pen Needle, Diabetic (Bd Ultra-Fine Amy Pen Needle) 32 gauge x 5/32 needle Start: 01-04-2022 End: 09-06-2022 Pen Needle, Diabetic (Bd Ultra-Fine Amy Pen Needle) 32 gauge x 5/32 needle Start: 09-06-2022 End: 05-08-2023 Pen Needle, Diabetic (Bd Ultra-Fine Amy Pen Needle) 32 gauge x 5/32 needle Start: 05-08-2023 End: 03-22-2024 Pen Needle, Diabetic (Bd Ultra-Fine Amy Pen Needle) 32 gauge x 5/32 needle Start: 03-22-2024 End: 09-15-2024 Pen Needle, Diabetic (Bd Ultra-Fine Amy Pen Needle) 32 gauge x 5/32 needle Start: 04-05-2020 End: 08-01-2020 Pen Needle, Diabetic (Bd Ultra-Fine Amy Pen Needle) 32 gauge x 5/32 needle Start: 08-01-2020 End: 02-16-2021 Pen Needle, Diabetic (Bd Ultra-Fine Amy Pen Needle) 32 gauge x 5/32 needle Start: 09-15-2024 End: 10-12-2024 Blood Sugar Diagnostic (Freestyle Lite Strips) strip Start: 10-05-2021 Blood Sugar Diagnostic (True Metrix Glucose Test Strip) strip Start: 09-13-2024 Lancets (Freesty le Lancets) 28 gauge misc Start: 09-06-2022 Pen Needle, Diabetic (Bd Ultra-Fine Amy Pen Needle) 32 gauge x 5/32 needle Start: 10-12-2024 Blood Sugar Diagnostic (Freestyle Lite Strips) strip Start: 10-14-2019 End: 09-07-2020 Blood Sugar Diagnostic (Freestyle Lite Strips) strip Start: 09-07-2020 End: 10-05-2021 Blood Sugar Diagnostic (Freestyle Test) strip Start: 07-13-2018 End: 07-13-2018 Blood Sugar Diagnostic (True Metrix Glucose Test Strip) strip Start: 02-09-2018 End: 02-11-2018 Blood Sugar Diagnostic (True Metrix Glucose Test Strip) strip Start: 02-11-2018 End: 07-13-2018 Blood Sugar Diagnostic (True Metrix Glucose Test Strip) strip Start: 10-08-2021 End: 10-10-2022 Lancets (Freesty le Lancets) 28 gauge misc Start: 10-14-2019 End: 09-07-2020 Lancets (Freesty le Lancets) 28 gauge misc Start: 09-07-2020 End: 09-06-2022 Pen Needle, Diabetic (Bd Ultra-Fine Amy Pen Needle) 32 gauge x 5/32 needle Start: 10-14-2019 End: 04-05-2020 Pen Needle, Diabetic (Bd Ultra-Fine Amy Pen Needle) 32 gauge x 5/32 needle Start: 02-16-2021 End: 10-05-2021 Pen Needle, Diabetic (Bd Ultra-Fine Amy Pen Needle) 32 gauge x 5/32 needle Start: 10-05-2021 End: 01-04-2022 Pen Needle, Diabetic (Bd Ultra-Fine Amy Pen Needle) 32 gauge x 5/32 needle Start: 01-04-2022 End: 09-06-2022 Pen Needle, Diabetic (Bd Ultra-Fine Amy Pen Needle) 32 gauge x 5/32 needle Start: 09-06-2022 End: 05-08-2023 Pen Needle, Diabetic (Bd Ultra-Fine Amy Pen Needle) 32 gauge x 5/32 needle Start: 05-08-2023 End: 03-22-2024 Pen Needle, Diabetic (Bd Ultra-Fine Amy Pen Needle) 32 gauge x 5/32 needle Start: 03-22-2024 End: 09-15-2024 Pen Needle, Diabetic (Bd Ultra-Fine Amy Pen Needle) 32 gauge x 5/32 needle Start: 04-05-2020 End: 08-01-2020 Pen Needle, Diabetic (Bd Ultra-Fine Amy Pen Needle) 32 gauge x 5/32 needle Start: 08-01-2020 End: 02-16-2021 Pen Needle, Diabetic (Bd Ultra-Fine Amy Pen Needle) 32 gauge x 5/32 needle Start: 09-15-2024 End: 10-12-2024 Blood Sugar Diagnostic (Freestyle Lite Strips) strip Start: 10-05-2021 Blood Sugar Diagnostic (True Metrix Glucose Test Strip) strip Start: 09-13-2024 Lancets (Freesty le Lancets) 28 gauge misc Start: 09-06-2022 Pen Needle, Diabetic (Bd Ultra-Fine Amy Pen Needle) 32 gauge x 5/32 needle Start: 10-12-2024 Blood Sugar Diagnostic (Freestyle Lite Strips) strip Start: 10-14-2019 End: 09-07-2020 Blood Sugar Diagnostic (Freestyle Lite Strips) strip Start: 09-07-2020 End: 10-05-2021 Blood Sugar Diagnostic (Freestyle Test) strip Start: 07-13-2018 End: 07-13-2018 Blood Sugar Diagnostic (True Metrix Glucose Test Strip) strip Start: 02-09-2018 End: 02-11-2018 Blood Sugar Diagnostic (True Metrix Glucose Test Strip) strip Start: 02-11-2018 End: 07-13-2018 Blood Sugar Diagnostic (True Metrix Glucose Test Strip) strip Start: 10-08-2021 End: 10-10-2022 Lancets (Freesty le Lancets) 28 gauge misc Start: 10-14-2019 End: 09-07-2020 Lancets (Freesty le Lancets) 28 gauge misc Start: 09-07-2020 End: 09-06-2022 Pen Needle, Diabetic (Bd Ultra-Fine Amy Pen Needle) 32 gauge x 5/32 needle Start: 10-14-2019 End: 04-05-2020 Pen Needle, Diabetic (Bd Ultra-Fine Amy Pen Needle) 32 gauge x 5/32 needle Start: 02-16-2021 End: 10-05-2021 Pen Needle, Diabetic (Bd Ultra-Fine Amy Pen Needle) 32 gauge x 5/32 needle Start: 10-05-2021 End: 01-04-2022 Pen Needle, Diabetic (Bd Ultra-Fine Amy Pen Needle) 32 gauge x 5/32 needle Start: 01-04-2022 End: 09-06-2022 Pen Needle, Diabetic (Bd Ultra-Fine Amy Pen Needle) 32 gauge x 5/32 needle Start: 09-06-2022 End: 05-08-2023 Pen Needle, Diabetic (Bd Ultra-Fine Amy Pen Needle) 32 gauge x 5/32 needle Start: 05-08-2023 End: 03-22-2024 Pen Needle, Diabetic (Bd Ultra-Fine Amy Pen Needle) 32 gauge x 5/32 needle Start: 03-22-2024 End: 09-15-2024 Pen Needle, Diabetic (Bd Ultra-Fine Amy Pen Needle) 32 gauge x 5/32 needle Start: 04-05-2020 End: 08-01-2020 Pen Needle, Diabetic (Bd Ultra-Fine Amy Pen Needle) 32 gauge x 5/32 needle Start: 08-01-2020 End: 02-16-2021 Pen Needle, Diabetic (Bd Ultra-Fine Amy Pen Needle) 32 gauge x 5/32 needle Start: 09-15-2024 End: 10-12-2024 Blood Sugar Diagnostic (Freestyle Lite Strips) strip Start: 10-05-2021 Blood Sugar Diagnostic (True Metrix Glucose Test Strip) strip Start: 09-13-2024 [facility] ([facility] le [facility]) [facility] Start: 09-06-2022 Pen Needle, Diabetic (Bd Ultra-Fine Amy Pen Needle) 32 gauge x 5/32 needle Start: 10-12-2024 Blood Sugar Diagnostic (Freestyle Lite Strips) strip Start: 10-14-2019 End: 09-07-2020 Blood Sugar Diagnostic (Freestyle Lite Strips) strip Start: 09-07-2020 End: 10-05-2021 Blood Sugar Diagnostic (Freestyle Test) strip Start: 07-13-2018 End: 07-13-2018 Blood Sugar Diagnostic (True Metrix Glucose Test Strip) strip Start: 02-09-2018 End: 02-11-2018 Blood Sugar Diagnostic (True Metrix Glucose Test Strip) strip Start: 02-11-2018 End: 07-13-2018 Blood Sugar Diagnostic (True Metrix Glucose Test Strip) strip Start: 10-08-2021 End: 10-10-2022 Lancets (Freesty le Lancets) 28 gauge misc Start: 10-14-2019 End: 09-07-2020 Lancets (Freesty le Lancets) 28 gauge misc Start: 09-07-2020 End: 09-06-2022 Pen Needle, Diabetic (Bd Ultra-Fine Amy Pen Needle) 32 gauge x 5/32 needle Start: 10-14-2019 End: 04-05-2020 Pen Needle, Diabetic (Bd Ultra-Fine Amy Pen Needle) 32 gauge x 5/32 needle Start: 02-16-2021 End: 10-05-2021 Pen Needle, Diabetic (Bd Ultra-Fine Amy Pen Needle) 32 gauge x 5/32 needle Start: 10-05-2021 End: 01-04-2022 Pen Needle, Diabetic (Bd Ultra-Fine Amy Pen Needle) 32 gauge x 5/32 needle Start: 01-04-2022 End: 09-06-2022 Pen Needle, Diabetic (Bd Ultra-Fine Amy Pen Needle) 32 gauge x 5/32 needle Start: 09-06-2022 End: 05-08-2023 Pen Needle, Diabetic (Bd Ultra-Fine Amy Pen Needle) 32 gauge x 5/32 needle Start: 05-08-2023 End: 03-22-2024 Pen Needle, Diabetic (Bd Ultra-Fine Amy Pen Needle) 32 gauge x 5/32 needle Start: 03-22-2024 End: 09-15-2024 Pen Needle, Diabetic (Bd Ultra-Fine Amy Pen Needle) 32 gauge x 5/32 needle Start: 04-05-2020 End: 08-01-2020 Pen Needle, Diabetic (Bd Ultra-Fine Amy Pen Needle) 32 gauge x 5/32 needle Start: 08-01-2020 End: 02-16-2021 Pen Needle, Diabetic (Bd Ultra-Fine Amy Pen Needle) 32 gauge x 5/32 needle Start: 09-15-2024 End: 10-12-2024 Blood Sugar Diagnostic (Freestyle Lite Strips) strip Start: 10-05-2021 Blood Sugar Diagnostic (True Metrix Glucose Test Strip) strip Start: 09-13-2024 Lancets (Freesty le Lancets) 28 gauge misc Start: 09-06-2022 Pen Needle, Diabetic (Bd Ultra-Fine Amy Pen Needle) 32 gauge x 5/32 needle Start: 10-12-2024 Blood Sugar Diagnostic (Freestyle Lite Strips) strip Start: 10-14-2019 End: 09-07-2020 Blood Sugar Diagnostic (Freestyle Lite Strips) strip Start: 09-07-2020 End: 10-05-2021 Blood Sugar Diagnostic (Freestyle Test) strip Start: 07-13-2018 End: 07-13-2018 Blood Sugar Diagnostic (True Metrix Glucose Test Strip) strip Start: 02-09-2018 End: 02-11-2018 Blood Sugar Diagnostic (True Metrix Glucose Test Strip) strip Start: 02-11-2018 End: 07-13-2018 Blood Sugar Diagnostic (True Metrix Glucose Test Strip) strip Start: 10-08-2021 End: 10-10-2022 Lancets (Freesty le Lancets) 28 gauge misc Start: 10-14-2019 End: 09-07-2020 Lancets (Freesty le Lancets) 28 gauge misc Start: 09-07-2020 End: 09-06-2022 Pen Needle, Diabetic (Bd Ultra-Fine Amy Pen Needle) 32 gauge x 5/32 needle Start: 10-14-2019 End: 04-05-2020 Pen Needle, Diabetic (Bd Ultra-Fine Amy Pen Needle) 32 gauge x 5/32 needle Start: 02-16-2021 End: 10-05-2021 Pen Needle, Diabetic (Bd Ultra-Fine Amy Pen Needle) 32 gauge x 5/32 needle Start: 10-05-2021 End: 01-04-2022 Pen Needle, Diabetic (Bd Ultra-Fine Amy Pen Needle) 32 gauge x 5/32 needle Start: 01-04-2022 End: 09-06-2022 Pen Needle, Diabetic (Bd Ultra-Fine Amy Pen Needle) 32 gauge x 5/32 needle Start: 09-06-2022 End: 05-08-2023 Pen Needle, Diabetic (Bd Ultra-Fine Amy Pen Needle) 32 gauge x 5/32 needle Start: 05-08-2023 End: 03-22-2024 Pen Needle, Diabetic (Bd Ultra-Fine Amy Pen Needle) 32 gauge x 5/32 needle Start: 03-22-2024 End: 09-15-2024 Pen Needle, Diabetic (Bd Ultra-Fine Amy Pen Needle) 32 gauge x 5/32 needle Start: 04-05-2020 End: 08-01-2020 Pen Needle, Diabetic (Bd Ultra-Fine Amy Pen Needle) 32 gauge x 5/32 needle Start: 08-01-2020 End: 02-16-2021 Pen Needle, Diabetic (Bd Ultra-Fine Amy Pen Needle) 32 gauge x 5/32 needle Start: 09-15-2024 End: 10-12-2024 Blood Sugar Diagnostic (Freestyle Lite Strips) strip Start: 10-05-2021 Blood Sugar Diagnostic (True Metrix Glucose Test Strip) strip Start: 09-13-2024 Lancets (Freesty le Lancets) 28 gauge misc Start: 09-06-2022 Pen Needle, Diabetic (Bd Ultra-Fine Amy Pen Needle) 32 gauge x 5/32 needle Start: 10-12-2024 Blood Sugar Diagnostic (Freestyle Lite Strips) strip Start: 10-14-2019 End: 09-07-2020 Blood Sugar Diagnostic (Freestyle Lite Strips) strip Start: 09-07-2020 End: 10-05-2021 Blood Sugar Diagnostic (Freestyle Test) strip Start: 07-13-2018 End: 07-13-2018 Blood Sugar Diagnostic (True Metrix Glucose Test Strip) strip Start: 02-09-2018 End: 02-11-2018 Blood Sugar Diagnostic (True Metrix Glucose Test Strip) strip Start: 02-11-2018 End: 07-13-2018 Blood Sugar Diagnostic (True Metrix Glucose Test Strip) strip Start: 10-08-2021 End: 10-10-2022 Lancets (Freesty le Lancets) 28 gauge misc Start: 10-14-2019 End: 09-07-2020 Lancets (Freesty le Lancets) 28 gauge misc Start: 09-07-2020 End: 09-06-2022 Pen Needle, Diabetic (Bd Ultra-Fine Amy Pen Needle) 32 gauge x 5/32 needle Start: 10-14-2019 End: 04-05-2020 Pen Needle, Diabetic (Bd Ultra-Fine Amy Pen Needle) 32 gauge x 5/32 needle Start: 02-16-2021 End: 10-05-2021 Pen Needle, Diabetic (Bd Ultra-Fine Amy Pen Needle) 32 gauge x 5/32 needle Start: 10-05-2021 End: 01-04-2022 Pen Needle, Diabetic (Bd Ultra-Fine Amy Pen Needle) 32 gauge x 5/32 needle Start: 01-04-2022 End: 09-06-2022 Pen Needle, Diabetic (Bd Ultra-Fine Amy Pen Needle) 32 gauge x 5/32 needle Start: 09-06-2022 End: 05-08-2023 Pen Needle, Diabetic (Bd Ultra-Fine Amy Pen Needle) 32 gauge x 5/32 needle Start: 05-08-2023 End: 03-22-2024 Pen Needle, Diabetic (Bd Ultra-Fine Amy Pen Needle) 32 gauge x 5/32 needle Start: 03-22-2024 End: 09-15-2024 Pen Needle, Diabetic (Bd Ultra-Fine Amy Pen Needle) 32 gauge x 5/32 needle Start: 04-05-2020 End: 08-01-2020 Pen Needle, Diabetic (Bd Ultra-Fine Amy Pen Needle) 32 gauge x 5/32 needle Start: 08-01-2020 End: 02-16-2021 Pen Needle, Diabetic (Bd Ultra-Fine Amy Pen Needle) 32 gauge x 5/32 needle Start: 09-15-2024 End: 10-12-2024 Goals Date Patient Goal Desired Activity /State Functional Status Date Assessment Result Facility 05-05-2025 Functional status None [facility] Work Phone: 05-05-2025 Functional status Independent [facility] Work Phone: 05-04-2025 Functional status Ambulates [facility] Work Phone: 11-07-2022 Functional Status Assistive Device None [facility] 09-14-2014 Are you deaf, or do you have serious difficulty hearing No 09/14/2014 8:37 AM Sona Velasquez LPN No [facility] 09-14-2014 Are you blind, or do you have serious difficulty seeing, even when wearing glasses No 09/14/2014 8:37 AM Sona Velasquez LPN No [facility] 09-14-2014 Do you have serious difficulty walking or climbing stairs No 09/14/2014 8:37 AM Sona Velasquez LPN No [facility] 09-14-2014 Do you have difficul ty dressing or bathing No 09/14/2014 8:37 AM Sona Velasquez LPN No [facility] 09-14-2014 Because of a physica l, mental, or emotional condition, do you have difficulty doing errands alone such as visiting a physician's office or shopping No 09/14/2014 8:37 AM Sona Velasquez LPN No [facility] Mental Status Date Assessment Result Facility 05-05-2025 Cognitive function Voice/Name [facility] Work Phone: 11-07-2022 Mental Status Orientation Oriented x 4 [facility] 09-14-2014 Because of a physica l, mental, or emotional condition, do you have serious difficulty concentrating, remembering, or making decisions No 09/14/2014 8:37 AM Sona Velasquez LPN [facility] Clinical Notes 08-05-2012 to 05-05-2025 Note Date & Type Note Facility 05-05-2025 Note [facility] 05-03-2025 Radiology Diagnostic study note [facility] 04-30-2025 Procedure note [facility] 04-29-2025 Note [facility] 04-29-2025 Radiology Diagnostic study note [facility] 04-28-2025 Radiology Diagnostic study note [facility] 04-28-2025 Radiology Diagnostic study note [facility] 04-28-2025 Discharge summary Note Date/Time April 28, 2025 9:38pm [facility] Medical Records Department [address] [place] [address] Emergency Department Summary 04/28/25 MR#: [id number] Acct: [id number] Name: TREVON RAMAN Rep #:[id number] : 1985 40 From: Varun Gamez MD PCP: Dr. Josh Meier MD Status:ADM IN Location: [place] [address] HPI History of Present Illness Chief Complaint: Shortness of Breath Informant: patient Onset/Context/Timing Onset: Days and Month(s) (Low back pain for months. Shortness of breath for days.) Context: Gradual Onset Timing: Continuous Current Severity: Moderate Maximum Severity: Moderate Narrative Narrative: 40-year-old male history of type 1 diabetes and prior sepsis. Prior right foot surgery for an amputated infected toe with a metatarsal resection. Send back pain since February. He just recently had an outpatient MRI which shows what theybelieved to be osteomyelitis of his lumbar spine. He said he was feeling worse started getting short of breath without chest pain. And he came in the emergency department. States he has had chills the last several days. Denies any prior back history or back surgery. He has never had any back injections. Prior similar symptoms: No Recent Illness/Hospitalization: No PFSH PFS Medical History Hypertriglyceridemia Wears glasses Insulin dependent diabetes mellitus Back pain Migraine headache Syncope Dietary restriction Vapes nicotine containing substance History of pain when walking History of edema Diabetic retinopathy associated with type 1 diabetes mellitus Diabetic neuropathy Osteomyelitis of foot, right, acute DKA (diabetic ketoacidoses) Cellulitis of leg Sepsis Type 1 diabetes mellitus Home Medications ?Medication ?Instructions ?Recorded ?Last Taken ?Type blood sugar diagnostic (FreeStyle #150 ea 10/05/21 Unk nown Rx Lite Strips) lancets 28 gauge (FreeStyle #150 ea 09/06/22 Unknown R x Lancets) blood sugar diagnostic (True #100 ea 09/13/24 Unknown Rx Metrix Glucose Test Strip) pen needle, diabetic 32 gauge x #200 ea 10/12/24 Unkno wn Rx (BD Ultra-Fine Amy Pen Needle) blood-glucose sensor (FreeStyle #6 ea 03/11/25 Unknown Rx Monse 3 Plus Sensor device) insulin glargine 100 unit/mL (3 40 unit (0.4 mL) subcu t QHS #15 mL 03/11/25 04/27/25 Rx mL) subcutaneous pen (Lantus Solostar U-100 Insulin) meloxicam 15 mg tablet 15 mg PO QDAY #30 tabs 04/1904/28/25 Rx tizanidine 6 mg capsule 6 mg PO TID PRN muscle spast icity 04/19/25 04/28/25 Rx #30 caps acetaminophen 500 mg tablet 1,000 mg PO Q6H PRN back p ain 04/28/25 04/28/25 History (Acetaminophen Extra Strength) fenofibrate nanocrystallized 145 145 mg PO DAILY 04/28 Unknown History mg tablet insulin aspart U-100 100 unit/mL See Protocol subcut T ID 04/28/25 Unknown History (3 mL) subcutaneous pen (Novolog FlexPen U-100 Insulin aspart) Allergy/AdvReac Type Severity Reaction Status Date / Time cefprozil (From Cefzil) Allergy Unknown Unknown Verified 04/28/25 17:08 Environmental Allergies: Allergy Hives Verified 04/28/25 17:08 Uncoded Family History Father Heart disease Hypertension Mother Diabetes Thyroid disorder Surgical History History of amputation of lesser toe of right foot Social History household members: spouse current occupational status: unemployed Smoking Status: Former smoker Electronic Cigarette Use: with nicotine quit status: considering quitting alcohol intake: never substance use type: does not use what type of physical activity do you participate in: other details: Sometimes do you feel safe at home: Yes ROS ROS ED ROS Narrative Low back pain for months. Left elbow pain. Constitutional Constitutional ED: Reports chills; Denies fever(s) Eyes Eyes: Denies blurry vision ENT ENT ED: Denies ear pain Cardiovascular Cardiovascular: Denies chest pain Respiratory/Chest Respiratory/Chest: Reports dyspnea; Denies cough or sputum Gastrointestinal Gastrointestinal: Denies abdominal pain, diarrhea, nausea or vomiting Genitourinary Genitourinary ED: Denies dysuria or hematuria Musculoskeletal Musculoskeletal: Denies arthralgias Integumentary Denies abscess Neurologic Neurologic: Denies headache(s) Psychiatric Psychiatric: Denies anxiety Endocrine Endocrinology: Denies cold intolerance Hematologic/Lymphatic Hematologic/Lymphatic: Reports none Allergic/Immunologic Allergic/Immunologic ED: Denies mouth swelling, tongue swelling or urticaria EXAM Physical Exam Narrative Exam Narrative: 4-year-old male sitting upright in bed. Vital signs tachycardic 143 and his blood pressure 90s over 67. Pulse ox 100%. Oral temperature 98. H EENT exam pupils round react light. Moist extremities. Neck nontender no lymphadenopathy. Back nontender. Lungs clear to auscultation bilaterally. Heart tachycardic 140 no murmur. Chest wall ribs nontender. Abdomen soft nontender. Moving all 4 extremities. Normal bulk sealer strength. Normal dorsi plantarflexion. Calves nontender no cords. No edema. Neurologically is awake alert. Answer questions following commands. Left elbow is tenderness. No large effusion. No bursitis. He is able to extend and 80 degrees. He can flex. No axillary lymphadenopathy. Const Vital Signs: 04/28/25 17:06 04/28/25 17:06 04/28/25 17:14 Temperature 98.2 F Temperature Source Oral Pulse Rate 143 H Respiratory Rate 20 H Respiratory Effort Normal Short of Breath Respiratory Depth Normal Respiratory Pattern Normal Blood Pressure 97/67 Blood Pressure Mean 77 Pulse Ox 100 Oxygen Delivery Method Room Air Room Air Room Air 04/28/25 18:06 04/28/25 18:08 04/28/25 19:00 Temperature 98.5 F 100.4 F H Temperature Source Oral Oral Pulse Rate 127 H 125 H 121 H Respiratory Rate 14 17 20 H Respiratory Effort Respiratory Depth Respiratory Pattern Blood Pressure 146/80 H 142/69 H 142/70 H Blood Pressure Mean 102 93 94 Pulse Ox 99 100 100 Oxygen Delivery Method Room Air Room Air 04/28/25 19:27 Temperature 100.4 F H Temperature Source Pulse Rate 116 H Respiratory Rate 20 H Respiratory Effort Respiratory Depth Respiratory Pattern Blood Pressure 139/71 H Blood Pressure Mean 93 Pulse Ox 98 Oxygen Delivery Method MDM MDM MDM Narrative Medical decision making narrative: 40-year-old male type I diabetic just diagnosed with lumbar osteomyelitis. Prior history of sepsis. He is tachycardic and hypotensive. He also has pain in his left elbow. He could have infected elbow joint also. He will be placed on sepsis protocol. IV fluids. IV Zosyn and vancomycin. Cultured. He will beadmitted. Repeat ABG doing better at 8:14 PM. His pressures improved his heart rate is improving got a liter of fluid I ordered 2 additional liters. He is being treated as sepsis. MRI showed discitis. He is got a leukocytosis. He is getting acute kidney injury which is possibly from dehydration and the infection. The elbow may or may not be infected but the x-ray was negative. Hehas already been treated with Zosyn and Vanco. Been cultured up. He has been given Tylenol for his fever. I spoke with the hospitalist will be admitted to the ICU. History & Record Review Discussion w/independent historian: Patient Additional record(s) reviewed:: Prior inpatient record, Prior outpatient record,Prior ED visit and Prior labs Lab Data Attestation: I reviewed the patient's lab results. Lab results narrative: CBC shows a white count of 14.0. H&H 11.9 and 35.7. Platelets 425. 82% neutrophils. Chemistries show sodium 130. Potassium 5.6. Anion gap 17. BUN and creatinine are 27 and 1.69. Glucose is 295. Lactic acid is 2.8. C-reactive protein is elevated at 102. Sed rate is elevated 28. PT/INR are 15, 1.2 and PTT of 32. I reviewed the patient's MRI done prior to his ER evaluation and it discusses a discitis it does not mention an osteomyelitis. Labs: Laboratory Results - last 24 hr 04/28/25 17:41 WBC 14.0 H RBC 4.13 L Hgb 11.9 L Hct 35.7 L MCV 86.4 MCH 28.8 MCHC 33.3 RDW Std Deviation 38.7 RDW Coeff of Sharon 12.2 Plt Count 425 MPV 9.5 Immature Gran % (Auto) 0.600 Neut % (Auto) 82.4 H Lymph % (Auto) 10.7 L Isabella % (Auto) 5.4 Eos % (Auto) 0.5 Baso % (Auto) 0.4 Absolute Neuts (auto) 11.5 H Absolute Lymphs (auto) 1.50 Nucleated RBC % 0 ESR 28 H PT 15.0 H INR 1.2 APTT 32.6 Sodium 130 L Potassium 5.6 H Chloride 94 L Carbon Dioxide 18.7 L Anion Gap 17 H BUN 27 H Creatinine 1.69 H Estim Creat Clear Calc 76.67 Est GFR (MDRD) Non-Af 52 L BUN/Creatinine Ratio 15.8 Glucose 295 H Lactic Acid 2.8 H* Calcium 9.7 Total Bilirubin 0.97 AST 21 ALT 25 Alkaline Phosphatase 156 H C-React Prot Ext Range 102.00 H Total Protein 8.9 H Albumin 3.6 Globulin 5.3 H Albumin/Globulin Ratio 0.7 L Radiography Chest X-Ray - ED: 1 View, Read by ED Physician, Heart, Lungs, Mediastinum, Bony Structures, No Acute Disease and Chronic Changes Diagnostic Testing: Clinical Impression(s) from Imaging Studies Chest X-Ray 04/28/25 17:55 IMPRESSION: Lungs appear clear throughout. No pleural effusion or pneumothorax is noted. The cardiomediastinal silhouette is within the normal range. Bilateral acromioclavicular joint degenerative changes are noted. No acute osseous change is seen. Reading Location: [address] Elbow X-Ray 04/28/25 17:55 IMPRESSION: No left elbow joint effusion is seen. No significant arthritic process or joint narrowing is noted. No fracture, dislocation, or other significant osseous or joint space abnormality is seen. Reading Location: [address] Chest x-ray, portable, 2 films 1 view interpreted by myself shows normal cardiacsilhouette. Normal lung lucero. No acute abnormalities. Left elbow x-ray, 3 views, interpreted by myself shows no acute abnormality. Nofracture. No dislocation. No subcu air. Rhythm Strip Rhythm Strip: Sinus Tach Rate: 138 Ectopy: None EKG Initial EKG: Attestation: I personally reviewed and interpreted this EKG as follows: Interpretation: No Acute Injury Pattern and Sinus Tachycardia Comments: Sinus tachycardia rate of 138 no acute signs of AK or ischemia. Critical Care Time Critical Care Time: Yes Critical care time (excluding procedures): 30-74 minutes, Including time spent:,Discussing w/Patient &/or Family/Hospital Superintendent, Discussing w/Consultants, ArrangingAdmission or Transfer, Performing Direct Patient Care at Bedside and - (40 min) Discharge Plan Dx/Rx/DC Orders Clinical Impression: Discitis, Sepsis, Acute kidney injury, History of diabetes mellitus, Acute hypotension Disposition Disposition: Acute Care Hospital [facility] What to do if you have Problems For any increased pain, shortness of breath, bleeding, nausea or vomiting, chestpain, or any unexpected problems, contact your Primary Care Provider. Call [facility] ([phone]) or report to the closest Emergency Room. Call 911 if necessary. 04/28/252137 <Electronically signed by Varun Gamez MD> Cosigner Signature (if applicable): CC: Dr. Josh Meier MD ~ Signed [facility] Work Phone: 1(856) 478-733309-22-2025 [facility] Internal Medicine [address] [place] [address] [place] [address] OFFICE VISIT Date of Service: 04/04/25 MR#: [id number] Acct: [id number] Name: TREVON RAMAN Rep #: [id number] : 1985 Provider: HENRY Capps Age/Sex: 39/M Location: [facility] – [place] Status: Signed Intake Vital Signs 03/11/25 09:25 04/04/25 12:26 Height 6 ft 6 ft Weight: 274 lb 261 lb BMI 37.1 35.4 BP 127/84 H 118/66 Blood Pressure Location Lt brachial Lt brachial Position Sitting Sitting Respiration 18 Pulse 94 114 H Pulse Source Monitor Monitor Temp 97.2 F L Temp Source Temporal Pulse Oximetry (%) 98 97 Oxygen Delivery Method room air room air Intake Visit Reasons: DISCUSS PAIN MNGMT Chief Complaint: DISCUSS PAIN MNGMT Is patient in pain?: Yes (10 all over ) Allergies cefprozil (From Cefzil) Allergy (Unknown, Verified 04/04/25 12:24) Unknown Environmental Allergies: Uncoded Allergy (Verified 04/04/25 12:24) Hives Medications ?Medication ?Instructions ?Recorded ?Confirmed ?Type blood sugar diagnostic (FreeStyle #150 ea 10/05/21 Rx Lite Strips) lancets 28 gauge (FreeStyle #150 ea 09/06/22 04/04/25 Rx Lancets) fenofibrate nanocrystallized 145 145 mg PO QDAY #90 ta bs 06/03/24 04/04/25 Rx mg tablet blood sugar diagnostic (True #100 ea 09/13/24 04/04/25 Rx Metrix Glucose Test Strip) pen needle, diabetic 32 gauge x #200 ea 10/12/2404/04 Rx 5/32 (BD Ultra-Fine Amy Pen Needle) naproxen 500 mg tablet 500 mg PO BID PRN pain #60 t abs 01/03/25 04/04/25 Rx varenicline tartrate 1 mg tablet 1 mg PO BID #56 tabs 01/03/25 04/04/25 Rx (Chantix Continuing Month Box) blood-glucose sensor (FreeStyle #6 ea 03/11/25 5 Rx Monse 3 Plus Sensor device) insulin aspart U-100 100 unit/mL 50 unit (0.5 mL) subc ut TID #45 mL 03/11/25 04/04/25 Rx (3 mL) subcutaneous pen (Novolog FlexPen U-100 Insulin aspart) insulin glargine 100 unit/mL (3 40 unit (0.4 mL) subcu t QHS #15 mL 03/11/25 04/04/25 Rx mL) subcutaneous pen (Lantus Solostar U-100 Insulin) cyclobenzaprine 10 mg tablet 10 mg PO BID PRN muscle p ain #30 04/04/25 04/04/25 Rx tabs prednisone 10 mg tablets in a dose See Rx Instructions PO PER PKG DIR 04/04/25 04/04/25 Rx pack #48 tabs Have you fallen in the past year?: No [facility] Medical History (Updated 04/04/25 @ 12:51 by HENRY Petersen) Hypertriglyceridemia Wears glasses Insulin dependent diabetes mellitus Back pain Migraine headache Syncope Dietary restriction Vapes nicotine containing substance History of pain when walking History of edema Diabetic retinopathy associated with type 1 diabetes mellitus Diabetic neuropathy Osteomyelitis of foot, right, acute DKA (diabetic ketoacidoses) Cellulitis of leg Sepsis Type 1 diabetes mellitus Surgical History History of amputation of lesser toe of right foot Family History Father Heart disease Hypertension Mother Diabetes Thyroid disorder Social History household members: spouse current occupational status: unemployed Smoking Status: Current every day smoker tobacco type: e-cigarettes Electronic Cigarette Use: with nicotine quit status: considering quitting alcohol intake: never substance use type: does not use what type of physical activity do you participate in: other details: Sometimes do you feel safe at home: Yes HPI HPI Chief Complaint: DISCUSS PAIN MNGMT Details: TREVON RAMAN, is a 39 M who presents to the office today for complains of increased back pain. Patient states over the past 3 weeks he has had severe back pain.He saw a chiropractor for this pain approximately 1 to 2 weeks ago he had an x-ray that showed somechanges in the lower spine. He states the pain has been so severe he even thought maybe he would bebetter off however he does not have any suicidal ideations or have not had any suicideattempts. He has not seen orthopedics for this in the past rates his pain at isha 10 out of 10. Has used [id number] Tylenol ibuprofen and Aleve for pain with little result. Denies numbness or tingling inlegs. Denies loss of bowel or bladder. Patient states the pain started after he slept on the couch.No other questions or concerns at this time ROS Const Constitutional: No body ache, chills, excessive sweating, fatigue, fever(s), frequent falls, headache(s), snoring, weight change, sleep problems, abnormal sleep pattern or change in appetite Eyes Eyes: No blurry vision, change in vision, eye pain or Light sensitivity ENT ENT: No abnormal hearing, ear or mastoid pain, tinnitus, nasal congestion, headache(s), neck pain or sore throat Resp Respiratory: No cough, shortness of breath, snoring or wheezing Cardio Cardiology: No chest pain at rest, chest pain with exertion, excessive sweating,shortness of breath, dyspnea on exertion, lightheadedness, orthopnea or palpitations Gastro GI: No abdominal pain, change in bowel habits, constipation, cramping, diarrhea,nausea/dyspepsia orvomiting Genitourinary Male: No burning urination, painful urination, urinary incontinence or urinary frequency Musc Musculoskeletal: No abnormal gait, joint pain, back pain, limited range of motion, neck pain, numbness or tingling Skin Skin: No dry skin, redness, lesions, itchy eyes, rash or wounds Neuro Neurology: No abnormal gait, abnormal hearing, frequent falls, headache(s), memory loss, numbness or tingling Psych Psychiatric: No abnormal sleep pattern, No anxiety, No change in appetite, No irritability, No memory loss and No Thoughts of harming yourself/Others Endo Endocrine: No cold intolerance, excessive sweating, fatigue, flushing, heat intolerance, increased thirst/drinking, increased hunger or weight change Aller/Imm Allergy/Immunologic: No itchy eyes, seasonal allergy symptoms, hives or wheezing Juanito/Lymp Hematologic/Lymphatic: No easy bleeding, easy bruising, enlarged lymph nodes or other Exam Const General: cooperative, no acute distress and well developed Nutritional Appearance: well nourished Orientation: alert and oriented x3 HENMT Head: normal to inspection and normocephalic Ears: hearing grossly normal bilaterally Nose: external nose normal Face and sinus: normal facial exam Mouth: oral mucosae normal Eyes General: appearance normal, both eyes and all related structures Neck Neck: normal visual inspection, trachea midline and nontender Thyroid: thyroid normal Lymphatic: no lymphadenopathy noted Chest Chest palpation & inspection: normal inspection of the chest Resp Effort & Inspection: normal respiratory effort, able to speak in complete sentences and symmetric chest movement Auscultation: Bilateral: Clear to Auscultation Cardio Palpation: normal PMI Rate: regular rate Rhythm: regular rhythm Heart Sounds: S1 normal and S2 normal GI Inspection: normal to inspection Musc Musculoskeletal: Yes joint tenderness and joint warmth Cervical Spine: No cervical spinal tenderness Thoracic/Lumbar Spine: thoracic and lumbar spine normal to inspection, straight leg raise negative bilaterally and scoliosis Sacroiliac joints: on the right, on the left and bilaterally Sacrum: tenderness Coccyx: tenderness Skin General: no rashes or lesions noted Neuro General: patient alert, patient oriented x3, no meningeal signs and deep tendon reflexes 2+ bilaterally Cognition: normal cognition Speech: speech normal Extrem General: normal to inspection and capillary refill normal Coding Level of Care Code Established Pt Off vis,est,level 3 Patient Type Established History Expanded Problem Focused Exam Expanded Problem Focused Medical Decision Making Low Complexity Diagnoses Back pain of lumbar region with sciatica M54.40 Time Spent (min) 30 Assessment and Plan Assessment and Plan (1) Back pain of lumbar region with sciatica: Status: Acute Plan: Will treat with Flexeril and prednisone at this time for pain relief and refer to orthopedics for further evaluation. Orders: Referrals Orthopedics M54.40 - Lumbago with sciatica, unspecified side, M54.9 - Dorsalgia, unspecified Medications: New prednisone Day 1-4 take 6 tablets days 5-8 take 4 tablets days 9-12 take 2 tablets 48 tabs 0RF Refilled cyclobenzaprine 10 mg PO BID PRN 30 tabs 0RF muscle pain Plan Details Follow Up: As needed Clinical Quality Measures Falls Risk Screening/Assistive Devices Have you fallen in the past year?: No 04/04/25 1704 er [employer]> Date _ Antonietta Schmidleah [employer] Cosigner Signature: Date (if applicable) CC: ~ [facility]09-15-2025 Radiology Diagnostic study note [facility] Imaging Services [address] [place] [address] L/S Spine Min 4 Views MR#: [id number] Acct: [id number] Name: TREVON RAMAN Rep #: [id number] : 1985 M 39 From: Alejandro Castañeda MD PCP: Dr. Josh Meier MD Status: REG CLI Study:L/S Spine Min 4 Views Date of Exam: 03/25/25 Exam# [id number] Ordering Dr: Juan Luis Santana D.C. PROCEDURE: L/S SPINE MIN 4 VIEWS 03/25/2025 REASON FOR EXAM: SPRAIN OF LIGAMENTS OF LUMBAR SPINE TECHNIQUE: Procedure Code: RADSPLS Modality: DX Procedure: L/S SPINE MIN 4 VIEWS COMPARISON: None FINDINGS: Curvature: No evidence of scoliosis Other findings: Grade 1 anterior listhesis of L5 on S1. Spondylolysis of the pars interarticularis of the L5 vertebrae. Moderate degree of disc space narrowing at the L4-L5 level. Other: RAD/L/S Spine Min 4 Views IMPRESSION: Grade 1 anterior listhesis of L5 on S1. Spondylolysis of the pars interarticularis of the L5 vertebrae. Moderate degree of disc space narrowing at the L4-L5 level. Reading Location: [place] [address] CC: DC Dr. Kevin Santana; Dr. Josh Meier MD ~ Recreation Activities Coordinator: Signed [facility]08-29-2025 Evaluation note* Diagnosis Onset Date Resolution Status Admit Date Diabetic retinopathy associa gabby with type 1 diabetes mellitus chronic [place] val[place] 2024 9:25am Hypertriglyceridemia chronic st 2024 9:25am Obesity chronic March 11, 025 9:25am Type 1 diabetes mellitus wit h diabetic polyneuropathy chronic February 122024 9:25am Back pain of lumbar region w ith sciatica acute April 04, 2025 12:18pm Degenerative disc disease (D DD) of lumbar region with discogenic back pain acute April 19 9:20am Lumbar radiculopathy acute 2024 9:20am Acute hypotension acute April 28, 2025 8:25pm Acute kidney injury acute er 2024 8:25pm Cellulitis of left elbow acute April 28, 2025 8:25pm Discitis acute April 28, 2025 8:25pm History of diabetes mellitus acute April 28, 2025 8:25pm Lumbar discitis acute April 132024 8:25pm MSSA bacteremia acute April 132024 8:25pm Onychomycosis acute April 8:25pm Sepsis acute April 28, 2025 8:25pm Non-pressure chronic ulcer o f other part of right foot limited to breakdown chronic April 28 8:25pm Type 1 diabetes mellitus wit h diabetic polyneuropathy chronic April 28, 2025 8:25pm [facility] Work Phone: 1(804) 702-156908-22-2025 Telephone encounter Note* Telephone Encounter - Alissa Carpenter MA - 03/04/2025 10:50 AM EDT Patient notified of results, verbalized understanding of instructions given. Alissa Carpenter MA [facility]08-22-2025 Miscellaneous Notes* Telephone Encounter - Alissa Carpenter MA - 03/04/2025 10:50 AM EDT Patient notified of results, verbalized understanding of instructions given. Alissa Carpenter MA * Telephone Encounter - Alissa Carpenter MA - 03/04/2025 10:49 AM EDT ----- Message from DL Oliveira sent at 03/03/2025 8:05 AM EDT ----- ----- Message ----- From: Praveen Palmer Ib Sent: 03/02/2025 11:16 AM EDT To: [facility] * Telephone Encounter - Josemanuel Pollard PA - 03/03/2025 8:05 AM EDT Please contact patient and let him know gonorrhea, chlamydia, trichomonas testing is all negative. We are still awaiting urine culture [facility] Telephone encounter Note * Telephone Encounter - Alissa Carpenter MA - 03/04/2025 10:49 AM EDT ----- Message from DL Oliveira sent at 03/03/2025 8:05 AM EDT ----- ----- Message ----- From: Anette Palmerr Mary Ib Sent: 03/02/2025 11:16 AM EDT To: [facility] Provider Pool [facility]08-21-2025 Telephone encounter Note* Telephone Encounter - Josemanuel Pollard PA - 03/03/2025 8:05 AM EDT Please contact patient and let him know gonorrhea, chlamydia, trichomonas testing is all negative. We are still awaiting urine culture [facility]08-20-2025 NoteHNO ID: [id number] Author: JOSEMANUEL POLLARD PA Service: ? Author Type: Physician Legal Biller Type: Progress Notes Filed: 03/02/2025 11:16 Note Text: [facility] Chema Raman is a 39 year old male. Patient presents with: Urinary Frequency: pelvic pressure, left side lower back pain x 3-4 days HPI 39-year-old male presents for urinary frequency, urgency, left-sided low back pain. Patient states he has been sleeping wrong, has had a little bit of left-sided low back pain. He has also been having urinary/bladder pressure, urinary frequency and urgency. He states he feels the urge to go, but only goes a small amount. No history of UTIs in the past, but is a diabetic. He states his glucose has been under control. He denies any penile rash. He states he has had some white penile discharge over the past couple of days and noticed some white discharge in his urine. No blood in the urine. No fevers, vomiting, testicular pain, testicular swelling, abdominal pain. No other complaint. PAST MEDICAL HISTORY Diagnosis Date Nonproliferative diabetic retinopathy of both eyes (HCC) 05/31/2019 Type I (juvenile type) diabetes mellitus without mention of complication, not stated as uncontrolled (HCC) Uncontrolled type 1 diabetes mellitus with diabetic neuropathy, with long-term current use of insulin 03/05/2016 PAST SURGICAL HISTORY Procedure Laterality Date NONE ALLERGIES Cefzil [Cefprozil] and Penicillins MEDICATIONS fluticasone (FLONASE) 50 mcg/actuation nasal spray Use 2 Sprays in each nostril once daily. Rinse mouth after use. L.acidophilus-L.rhamnosus (PROBIOTIC) 15 billion cell capsule Take 1 capsule by mouth once daily. Insulin [place], Disposable, (BD ULTRAFINE III MINI PEN) 31 gauge x 3/16 ndle USE 1 NEEDLE FOR EACH DOSE 6 TIMES DAILY insulin glargine (LANTUS SOLOSTAR, BASAGLAR KWIKPEN) 100 unit/mL (3 mL) inpn Administer 45 units at bedtime insulin aspart U-100 (NOVOLOG FLEXPEN U-100 INSULIN) 100 unit/mL (3 mL) inpn Inject 32 units with meals up to 100 units daily. Plus sliding scale correction up to 32 units/day lancets (FREESTYLE LANCETS) 28 gauge misc Test blood sugar(s) 6x daily. Dx: e10.65. Insulin: Yes blood sugar diagnostic (FREESTYLE LITE STRIPS) test strip Test blood sugar(s) 6 times daily. Dx: e10.65. Insulin: Yes lactobacillus combination no.4 (PROBIOTIC) 3 billion cell cap Take 1 capsule by mouth once daily. (Patient not taking: Reported on 12/01/2023) FAMILY HISTORY Problem Relation Age of Onset Diabetes Mother Hyperlipidemia Mother COPD Father Coronary Artery Disease Father 35 Cancer Father lung Obesity Sister morbid obesity Thyroid Sister hypothyroid Depression Sister Heart Maternal Grandmother Stroke Maternal Grandmother Dementia Paternal Grandfather Diabetes Daughter Coronary Artery Disease Paternal Uncle SOCIAL HISTORY[1] Review of Systems Constitutional: Negative for chills and fever. HENT: Negative for congestion and sore throat. Respiratory: Negative for cough and shortness of breath. Gastrointestinal: Negative for abdominal pain, diarrhea and vomiting. Genitourinary: Positive for dysuria, frequency, penile discharge and urgency. Negative for flank pain, penile pain and testicular pain. Musculoskeletal: Positive for back pain. Objective BP 122/70 Pulse 102 Temp 36.2 ?C (97.2 ?F) Resp 18 Wt 124.8 kg (275 lb 2.2 oz) SpO2 98% BMI 37.31 kg/m? Physical Exam Vitals and nursing note reviewed. Constitutional: General: He is not in acute distress. Appearance: Normal appearance. He is not toxic-appearing. HENT: Mouth/Throat: Mouth: Mucous membranes are moist. Cardiovascular: Rate and Rhythm: Normal rate and regular rhythm. Pulmonary: Effort: Pulmonary effort is normal. Breath sounds: Normal breath sounds. Abdominal: General: Abdomen is flat. Palpations: Abdomen is soft. Tenderness: There is no abdominal tenderness. There is no right CVA tenderness, left CVA tenderness, guarding or rebound. Genitourinary: Comments: Deferred Skin: General: Skin is warm and dry. Neurological: Mental Status: He is alert. {ASSESSMENT/PLAN: 1. Urinary frequency - ICD9: 788.41, ICD10: R35.0 (primary diagnosis) acute - UA positive for roselyn esterase, hematuria, and proteinuria - Send urine for culture - Begin treatment with Macrobid 100 mg BID for 7 days - Patient education for prevention given - UA DIP, URINE (POC) - BACTERIAL CULTURE, URINE - GONORRHEA/CHLAMYDIA NAAT - TRICHOMONAS VAGINALIS NAAT 2. Acute left-sided low back pain without sciatica - ICD9: 724.2, ICD10: M54.50 - UA DIP, URINE (POC) - BACTERIAL CULTURE, URINE Diagnosis and treatment plan were discussed and questions were answered to the patient's satisfaction. Pt acknowledged understanding of concepts and follow up plan. Specific signs and symptoms that would indicate the need for higher level of (more content not included)...[facility]08-20-2025 History of Present illness Narrative* Josemanuel Pollard PA - 03/02/2025 10:11 AM EDT URGENT CARE HILGER Chema Raman is a 39 year old male. Patient presents with: Urinary Frequency: pelvic pressure, left side lower back pain x 3-4 days HPI 39-year-old male presents for urinary frequency, urgency, left-sided low back pain. Patient states he has been sleeping wrong, has had a little bit of left- sided low back pain. He has also been having urinary/bladder pressure, urinary frequency and urgency. He states he feels the urge to go, but only goes a small amount. No history of UTIs in the past, but is a diabetic. He states his glucose hasbeen under control. He denies any penile rash. He states he has had some white penile discharge over the past couple of days and noticed some white discharge in his urine. No blood in the urine. No fevers, vomiting, testicular pain, testicular swelling, abdominal pain. No other complaint. PAST MEDICAL HISTORY Diagnosis Date Nonproliferative diabetic retinopathy of both eyes ([facility]) 05/31/2019 Type I (juvenile type) diabetes mellitus without mention of complication, not stated as uncontrolled (HCC) Uncontrolled type 1 diabetes mellitus with diabetic neuropathy, with long-term current use of insulin 03/05/2016 PAST SURGICAL HISTORY Procedure Laterality Date NONE ALLERGIES Cefzil [Cefprozil] and Penicillins MEDICATIONS fluticasone (FLONASE) 50 mcg/actuation nasal spray Use 2 Sprays in each nostril once daily. Rinse mouth after use. L.acidophilus-L.rhamnosus (PROBIOTIC) 15 billion cell capsule Take 1 capsule by mouth once daily. Insulin [place], Disposable, (BD ULTRAFINE III MINI PEN) 31 gauge x 3/16 ndle USE 1 NEEDLE FOR EACH DOSE 6 TIMES DAILY insulin glargine (LANTUS SOLOSTAR, BASAGLAR KWIKPEN) 100 unit/mL (3 mL) inpn Administer 45 units atbedtime insulin aspart U-100 (NOVOLOG FLEXPEN U-100 INSULIN) 100 unit/mL (3 mL) inpn Inject 32 units with meals up to 100 units daily. Plus sliding scale correction up to 32 units/day lancets (FREESTYLE LANCETS) 28 gauge misc Test blood sugar(s) 6x daily. Dx: e10.65. Insulin: Yes blood sugar diagnostic (FREESTYLE LITE STRIPS) test strip Test blood sugar(s) 6 times daily. Dx: e10.65. Insulin: Yes lactobacillus combination no.4 (PROBIOTIC) 3 billion cell cap Take 1 capsule by mouth once daily. (Patient not taking: Reported on 12/01/2023) FAMILY HISTORY Problem Relation Age of Onset Diabetes Mother Hyperlipidemia Mother COPD Father Coronary Artery Disease Father 35 Cancer Father lung Obesity Sister morbid obesity Thyroid Sister hypothyroid Depression Sister Heart Maternal Grandmother Stroke Maternal Grandmother Dementia Paternal Grandfather Diabetes Daughter Coronary Artery Disease Paternal Uncle SOCIAL HISTORY[1] Review of Systems Constitutional: Negative for chills and fever. HENT: Negative for congestion and sore throat. Respiratory: Negative for cough and shortness of breath. Gastrointestinal: Negative for abdominal pain, diarrhea and vomiting. Genitourinary: Positive for dysuria, frequency, penile discharge and urgency. Negative for flank pain, penile pain and testicular pain. Musculoskeletal: Positive for back pain. Objective BP 122/70 Pulse 102 Temp 36.2 C (97.2 F) Resp 18 Wt 124.8 kg (275 lb 2.2 oz) SpO2 98% BMI 37.31 kg/m Physical Exam Vitals and nursing note reviewed. Constitutional: General: He is not in acute distress. Appearance: Normal appearance. He is not toxic-appearing. HENT: Mouth/Throat: Mouth: Mucous membranes are moist. Cardiovascular: Rate and Rhythm: Normal rate and regular rhythm. Pulmonary: Effort: Pulmonary effort is normal. Breath sounds: Normal breath sounds. Abdominal: General: Abdomen is flat. Palpations: Abdomen is soft. Tenderness: There is no abdominal tenderness. There is no right CVA tenderness, left CVA tenderness, guarding or rebound. Genitourinary: Comments: Deferred Skin: General: Skin is warm and dry. Neurological: Mental Status: He is alert. {ASSESSMENT/PLAN: 1. Urinary frequency - ICD9: 788.41, ICD10: R35.0 (primary diagnosis) acute - UA positive for roselyn esterase, hematuria, and proteinuria - Send urine for culture - Begin treatment with Macrobid 100 mg BID for 7 days - Patient education for prevention given - UA DIP, URINE (POC) - BACTERIAL CULTURE, URINE - GONORRHEA/CHLAMYDIA NAAT - TRICHOMONAS VAGINALIS NAAT 2. Acute left-sided low back pain without sciatica - ICD9: 724.2, ICD10: M54.50 - UA DIP, URINE (POC) - BACTERIAL CULTURE, URINE Diagnosis and treatment plan were discussed and questions were answered to the patient's satisfaction. Pt acknowledged understanding of concepts and follow up plan. Specific signs and symptoms that would indicate the need for higher level of care were discussed in detail warranting prompt ER evaluation. DL Oliveira History and Record Review External record(s) reviewed: prior outpatient record. Differential Diagnoses - uti is more likely for the following reason(s): suggested by H&P - Epididymitis/orchitis is less likely for the following reason(s): No testicular pain or swelling,H&P not suggestive - Pyelonephritis is less likely for the following reason(s): H&P not suggestive - Ureterolithiasis is less likely for the following reason(s): H&P not suggestive Contributing Factors Chronic conditions affecting care: diabetes Disposition The patient was discharged. Procedures [1] Social History Tobacco Use Smoking status: Former Current packs/day: 0.00 Types: Cigarettes Quit date: 07/22/2019 Years since quittin.6 Smokeless tobacco: Never Vaping Use Vaping status: current everyday user Substance Use Topics Alcohol use: No Drug use: No [facility]* Diagnosis Onset Date Resolution Status Admit Date Hypertriglyceridemia chronic January 03, 2025 11:27am Type 1 diabetes mellitus wit h diabetic polyneuropathy chronic December 11:27am Electronic cigarette use noneactive January 03, 2025 11:27am Right shoulder pain noneactive January 03, 2025 11:27am Diabetic retinopathy noneactive January 03, 2025 11:27am Fluid collection of middle ear nonea ctive January 03, 2025 11:27am [facility] Work Phone: 1(473) 973-897906-23-2025 Evaluation note* Diagnosis Onset Date Resolution Status Admit Date Hypertriglyceridemia chronic January 03, 2025 11:27am Type 1 diabetes mellitus wit h diabetic polyneuropathy chronic December 11:27am Electronic cigarette use noneactive January 03, 2025 11:27am Right shoulder pain noneactive January 03, 2025 11:27am Diabetic retinopathy noneactive January 03, 2025 11:27am Fluid collection of middle ear nonea ctive January 03, 2025 11:27am Diabetic retinopathy associa gabby with type 1 diabetes mellitus chronic [place] 2024 9:25am Hypertriglyceridemia chronic [facility] 2024 9:25am Obesity chronic March 11, 025 9:25am Type 1 diabetes mellitus wit h diabetic polyneuropathy chronic February 122024 9:25am Back pain of lumbar region w ith sciatica acute April 04, 2025 12:18pm [facility] Work Phone: 1(898) 981-282406-16-2025 Discharge summary [facility] Physical Therapy [address] [place] [address] / REHABILITATION SERVICES DISCHARGE SUMMARY MR#: [id number] Acct: [id number] Name: TREVON RAMAN Rep #: [id number] 6 : 1985 39 From: Khadar Garber DPT, OCS, CSCS Referring Dr.: Dr. Josh Meier MD Status: REG RCR Insurance: [facility] [employer] INSURANCE Discharge Summary D/C summary: It has been my pleasure to treat TREVON RAMAN referred by Dr. Josh Meier MD, with the diagnosis of R shoulder pain for a total of 17 visit(s). Discharge Date: 12/27/24 Please see the following information for a summary of their discharge status. Subjective Subjective: Getting stronger but mobilitiy is ti painful behind him and across body. Sleeping is a lot better. Comfortable at rest. Activities normal . Dressing OK. HEP Doing stretches and ROm at home, pullling on band at home. Will see Renea next week. Pain R shoulder.: Pain Intensity (Out of 10): 0 Overall Improvement % Improvement: 60 Objective Objective/Function: AROM is limited on R vs L in er by 10 degrees, IR end range painful to L5, flexion to 143 with pain. Strength is good in rotations and flexion, empty can at 4/5 on R. - cross body stretch i stransiently painful. overall decent improvement since day one but stagnant in improvement last coupleweeks Goals Goal 1:: Full OH reach adn behind back without pain Goal Progress: Progressing Goal 2:: Pt feel pain 80% better and 1/10 at worst Goal Progress: 60% Goal 3:: I management of condition including HEP Goal Progress: Goal Met physically Goal 4:: sleep without waking due to pain x 5 days Goal Progress: Progressing Goal 5:: quickdash score 15 or better Goal Progress: Not Progressing Plan Plan: d/c, pt to contact and visit doctor regarding other options. To this theerapist seeem slight frozen shoulder, no signs of RCT or labral pathology in clinic today. D/C Information Discharge Comments: pt to go back to doctor regarding other options due to stagnant progress. d/c sentence: If there are questions or concerns regarding this patient's physical therapy, please feel free to call me at [phone]. Thank you for the referral of thispatient. Sincerely, Khadar Garber DPT, OCS, CSCS Balance/Gait/Functional tests Balance/Special Test Scores Quick DASH Score: 20.4525 Improvement % Improvement: 60 12/27/24 1051 CC: Dr. Josh Meier MD ~ EBG Signed [facility]06-16-2025 Discharge summary Author Khadar Garber [facility] Note Date/Time December 27, 2024 11:3 2am [facility] Therapy [facility] [address] [place] [address] / REHABILITATION SERVICES DISCHARGE SUMMARY MR#: [id number] Acct: [id number] Name: TREVON RAMAN Rep #: [id number] 6 : 1985 39 From: Khadar Garber DPT, OCS, CSCS Referring Dr.: Dr. Josh Meier MD Status: REG R Insurance: [facility] [employer] INSURANCE Discharge Summary D/C summary: It has been my pleasure to treat TREVON RAMAN referred by Dr. Josh Meier MD, with the diagnosis of R shoulder pain for a total of 17 visit(s). Discharge Date: 12/27/24 Please see the following information for a summary of their discharge status. Subjective Subjective: Getting stronger but mobilitiy is ti painful behind him and across body. Sleeping is a lot better. Comfortable at rest. Activities normal . Dressing OK. HEP Doing stretches and ROm at home, pullling on band at home. Will see Renea next week. Pain R shoulder.: Pain Intensity (Out of 10): 0 Overall Improvement % Improvement: 60 Objective Objective/Function: AROM is limited on R vs L in er by 10 degrees, IR end range painful to L5, flexion to 143 with pain. Strength is good in rotations and flexion, empty can at 4/5 on R. - cross body stretch i stransiently painful. overall decent improvement since day one but stagnant in improvement last coupleweeks Goals Goal 1:: Full [place] reach adn behind back without pain Goal Progress: Progressing Goal 2:: Pt feel pain 80% better and 1/10 at worst Goal Progress: 60% Goal 3:: I management of condition including HEP Goal Progress: Goal Met physically Goal 4:: sleep without waking due to pain x 5 days Goal Progress: Progressing Goal 5:: quickdash score 15 or better Goal Progress: Not Progressing Plan Plan: d/c, pt to contact and visit doctor regarding other options. To this theerapist seeem slight frozen shoulder, no signs of RCT or labral pathology in clinic today. D/C Information Discharge Comments: pt to go back to doctor regarding other options due to stagnant progress. d/c sentence: If there are questions or concerns regarding this patient's physical therapy, please feel free to call me at [phone]. Thank you for the referral of thispatient. Sincerely, Khadar Garber, DPT, OCS, CSCS Balance/Gait/Functional tests Balance/Special Test Scores Quick DASH Score: 20.4525 Improvement % Improvement: 60 <Electronically signed by Khadar Garber DPT, OCS, CSCS> 12/27/24 1051 CC: Dr. Josh Meier MD ~ EBG Signed [facility] Work Phone: 1(544) 244-202003-28-2025 Evaluation note* Diagnosis Onset Date Resolution Status Admit Date Diabetic retinopathy associa gabby with type 1 diabetes mellitus chronic [facility] 2024 9:24am Hypertriglyceridemia chronic Antony 2024 9:24am Obesity chronic October 08 9:24am Type 1 diabetes mellitus wit h diabetic polyneuropathy chronic October 082024 9:24am Hypertriglyceridemia chronic [facility] 2024 9:55am Type 1 diabetes mellitus wit h diabetic polyneuropathy chronic November 082024 9:55am Electronic cigarette use noneactive November 08, 2024 9:55am Right shoulder pain noneactive November 08, 2024 9:55am Diabetic retinopathy noneactive [facility] 2024 9:55am [facility] Work Phone: 1([phone]) 228-122703-28-2025 Evaluation note* Diagnosis Onset Date Resolution Status Admit Date Diabetic retinopathy associa gabby with type 1 diabetes mellitus chronic [facility] 2024 9:24am Hypertriglyceridemia chronic Antony h 2024 9:24am Obesity chronic October 08 9:24am Type 1 diabetes mellitus wit h diabetic polyneuropathy chronic October 082024 9:24am Hypertriglyceridemia chronic [facility] 2024 9:55am Type 1 diabetes mellitus wit h diabetic polyneuropathy chronic November 082024 9:55am Electronic cigarette use noneactive November 08, 2024 9:55am Right shoulder pain noneactive November 08, 2024 9:55am Diabetic retinopathy noneactive [facility] 2024 9:55am Hypertriglyceridemia chronic January 03, 2025 11:27am Type 1 diabetes mellitus wit h diabetic polyneuropathy chronic December 11:27am Electronic cigarette use noneactive January 03, 2025 11:27am Right shoulder pain noneactive January 03, 2025 11:27am Diabetic retinopathy noneactive January 03, 2025 11:27am Fluid collection of middle ear nonea ctive January 03, 2025 11:27am [facility] [employer] Work Phone: 1(447) 531-409009-09-2024 Telephone encounter Note* Telephone Encounter - Rajani Sifuentes RN - 03/22/2024 10:28 AM EDT Omid Love calling from [facility]. Patient currently has an Establish Care appointment with Dr. Dozier on 05/25/24. Omid reports patient needs to make a Pre-Op clearance appt as well, for a metatarsal and wound procedure that is needing done. Omid to notify patient to call provider's office to get this scheduledafter his Establish Care visit. Will await patient's call. Rajani Sifuentes RN [facility]09-09-[facility] Miscellaneous Notes* Telephone Encounter - Rajani Sifuentes RN - 03/22/2024 10:28 AM EDT Omid Love calling from [facility]. Patient currently has an Establish Care appointment with Dr. Dozier on 05/25/24. Omid reports patient needs to make a Pre-Op clearance appt as well, for a metatarsal and wound procedure that is needing done. Omid to notify patient to call provider's office to get this scheduledafter his Establish Care visit. Will await patient's call. Rajani Sifuentes RN documented in this encounterSy[facility]08-14-2024 History of Present illness Narrative* Loreto Vail RT(R) - 02/25/2024 3:00 PM EDT Radiology Service Progress Note PATIENT NAME: Trevon Raman DATE OF SERVICE: February 25, 2024 TIME: 2:53 PM PATIENT IDENTITY VERIFICATION COMPLETED USING TWO (2) IDENTIFIERS: Name and Date of confirmedby patient verbally. FALL SCREENING: Has the patient had 2 falls in the last year or 1 fall with injury or currently using an Ambulatory Assistive Device (Walker, Cane, Wheelchair, Crutches, etc.)? No PATIENT GENDER DATA: Male PATIENT RELEVANT IMPLANT DATA REVIEWED: Not Applicable PATIENT PRESENTS WITH AN IMPLANTABLE OR ATTACHED DIRECTOR OF RESIDENCE LIFE: No RADIOLOGY DEPARTMENT: General X-ray: Exam(s) Completed: Upper Extremity X- Ray(s): Fingers/Thumb, left PERIPHERAL IV DATA: Not applicable SIGNED BY: RT Antonio(R) February 25, 2024 2:53 PM documented in this encounterSy[facility]08-14-2024 History of Present illness Narrative* John Patton APRN.ACADEMIC REGISTRAR - 02/25/2024 2:46 PM EDT This note was created using [employer]. Subjective Trevon Raman is a 38 year old male. HPI Patient complains of left thumb pain started today. Apparently he was attempting to lift some sort of heavy object when it slipped hyperextending his left thumb. He complains of pain around the base of the left thumb. He does state he has full range of motion however it is painful. Patient otherwise denies any other injuries or health concerns. Review of Systems Musculoskeletal: Positive for arthralgias. Objective BP 122/74 Pulse 88 Temp 36.4 C (97.5 F) (Tympanic) Resp 16 Wt 117 kg (257 lb 15 oz) SpO2 99% BMI 34.98 kg/m Physical Exam Vitals and nursing note reviewed. Constitutional: General: He is not in acute distress. Appearance: Normal appearance. He is not ill-appearing. HENT: Head: Normocephalic. Pulmonary: Effort: Pulmonary effort is normal. Musculoskeletal: Cervical back: Normal range of motion. Comments: Diffuse tenderness around the base of the left thumb with no obvious swelling, ecchymosis, or deformities noted. Skin: General: Skin is warm and dry. Neurological: General: No focal deficit present. Mental Status: He is alert. Psychiatric: Mood and Affect: Mood normal. Behavior: Behavior normal. Assessment and Plan ASSESSMENT/PLAN: 1. Thumb pain, left - ICD9: 729.5, ICD10: M79.645 X-ray of the left thumb was unremarkable showing no signs of fracture or dislocation. Patient symptoms today most consistent with a sprain of the left thumb. Patient was instructed to slowly resume activities as tolerated, use ibuprofen or Tylenol as needed for pain, follow-up with his PCP, and otherwise return to the nearest ER for any new or worsening concerns. - XR DIGIT GENERAL 3V FRONTAL/LAT/OBL LEFT John Patton APRN.CNP documented in this encounterSy[facility]07-30-2024 Instructions* Patient Instructions* Marc Clement APRN.CNP - 02/10/2024 2:13 PM EDT ASSESSMENT/PLAN: 1. Sinobronchitis - ICD9: 473.9, 490, ICD10: J32.9, J40 - Will begin treatment with as per antibiotic as written, see orders - Supportive care with plenty of fluids, rest, and analgesia prn. - Follow up in 3-5 days if symptoms persist or worsen. -If you experience chest pain/shortness of breath go to ER - DOXYCYCLINE HYCLATE 100 MG TABLET - FLUTICASONE PROPIONATE 50 MCG/ACTUATION NASAL SPRAY,SUSPENSION documented in this encounterSycamore [facility] Center07-30-2024 History of Present illness Narrative* Marc Clement APRN.CNP - 02/10/2024 12:15 PM EDT Subjective HPI HPI Trevon Raman is a 38 year old male who presents today for CC of cough, sinus pressure, earpain. This started 1 week ago. Has tried otc medication for relief. Symptoms are worsened by nothing. Risk factors diabetic, smoker. PAST MEDICAL HISTORY Diagnosis Date Nonproliferative diabetic retinopathy of both eyes (HCC) 05/31/2019 Type I (juvenile type) diabetes mellitus without mention of complication, not stated as uncontrolled (HCC) Uncontrolled type 1 diabetes mellitus with diabetic neuropathy, with long-term current use of insulin 03/05/2016 PAST SURGICAL HISTORY Procedure Laterality Date NONE ALLERGIES Cefzil [Cefprozil] and Penicillins MEDICATIONS L.acidophilus-L.rhamnosus (PROBIOTIC) 15 billion cell capsule Take 1 capsule by mouth once daily. Insulin [place], Disposable, (BD ULTRAFINE III MINI PEN) 31 gauge x 3/16 ndle USE 1 NEEDLE FOR EACH DOSE 6 TIMES DAILY insulin glargine (LANTUS SOLOSTAR, BASAGLAR KWIKPEN) 100 unit/mL (3 mL) inpn Administer 45 units atbedtime insulin aspart U-100 (NOVOLOG FLEXPEN U-100 INSULIN) 100 unit/mL (3 mL) inpn Inject 32 units with meals up to 100 units daily. Plus sliding scale correction up to 32 units/day lancets (FREESTYLE LANCETS) 28 gauge misc Test blood sugar(s) 6x daily. Dx: e10.65. Insulin: Yes blood sugar diagnostic (FREESTYLE LITE STRIPS) test strip Test blood sugar(s) 6 times daily. Dx: e10.65. Insulin: Yes doxycycline (VIBRA-TABS) 100 mg tablet Take 1 tablet by mouth two times a day for 7 days. fluticasone (FLONASE) 50 mcg/actuation nasal spray Use 2 Sprays in each nostril once daily. Rinse mouth after use. lactobacillus combination no.4 (PROBIOTIC) 3 billion cell cap Take 1 capsule by mouth once daily. (Patient not taking: Reported on 12/01/2023) FAMILY HISTORY Problem Relation Age of Onset Diabetes Mother Hyperlipidemia Mother COPD Father Coronary Artery Disease Father 35 Cancer Father lung Obesity Sister morbid obesity Thyroid Sister hypothyroid Depression Sister Heart Maternal Grandmother Stroke Maternal Grandmother Dementia Paternal Grandfather Diabetes Daughter Coronary Artery Disease Paternal Uncle Social History Tobacco Use Smoking status: Former Packs/day: .5 Types: Cigarettes Quit date: 07/22/2019 Years since quittin.5 Smokeless tobacco: Never Vaping Use Vaping Use: current everyday user Substance Use Topics Alcohol use: No Drug use: No Review of Systems Constitutional: Negative for fever. HENT: Positive for congestion, sinus pain and sore throat. Negative for ear pain and nosebleeds. Respiratory: Positive for cough and shortness of breath. Negative for wheezing. Cardiovascular: Negative for chest pain. Musculoskeletal: Negative for neck pain. Skin: Negative for itching and rash. Objective Blood pressure 100/71, pulse 90, temperature 36.1 C (96.9 F), resp. rate 18, weight 118 kg (260 lb 2.3 oz), SpO2 99%. Physical Exam Constitutional: General: He is not in acute distress. Appearance: He is not toxic-appearing or diaphoretic. HENT: Head: Normocephalic and atraumatic. Right Ear: Hearing, tympanic membrane, ear canal and external ear normal. Left Ear: Hearing, tympanic membrane, ear canal and external ear normal. Nose: Nose normal. Mouth/Throat: Pharynx: Uvula midline. No pharyngeal swelling, oropharyngeal exudate, posterior oropharyngeal erythema or uvula swelling. Eyes: General: Lids are normal. No scleral icterus. Right eye: No discharge. Left eye: No discharge. Conjunctiva/sclera: Conjunctivae normal. Pupils: Pupils are equal, round, and reactive to light. Neck: Trachea: Trachea normal. Cardiovascular: Rate and Rhythm: Normal rate and regular rhythm. Heart sounds: Normal heart sounds. Pulmonary: Effort: Pulmonary effort is normal. Breath sounds: Normal breath sounds. Musculoskeletal: Cervical back: Normal range of motion and neck supple. Lymphadenopathy: Cervical: No cervical adenopathy. Right cervical: No superficial cervical adenopathy. Left cervical: No superficial cervical adenopathy. Skin: Findings: No rash. Neurological: Mental Status: He is alert and oriented to person, place, and time. ASSESSMENT/PLAN: 1. Sinobronchitis - ICD9: 473.9, 490, ICD10: J32.9, J40 - Will begin treatment with as per antibiotic as written, see orders - Supportive care with plenty of fluids, rest, and analgesia prn. - Follow up in 3-5 days if symptoms persist or worsen. -If you experience chest pain/shortness of breath go to ER - DOXYCYCLINE HYCLATE 100 MG TABLET - FLUTICASONE PROPIONATE 50 MCG/ACTUATION NASAL SPRAY,SUSPENSION Macr Clement APRN.ACADEMIC REGISTRAR documented in this [facility] History of Present illness Narrative* Iwona Mcduffie APRN.FLYNN - 01/02/2024 11:09 AM EDT CC: Patient presents with: Sore Throat: Hard to swallow, R side and ear, nasal congestion, runny nose x last night HPI: Trevon Raman is a 38 year old male who presents to the office with complaint of head congestion, sore throat, sinus symptoms, and ear symptoms for the past day. Symptoms are worsening Associated symptoms includes sore throat. Denies fever, nausea, vomiting , and diarrhea. Treatments tried include nothing so far. with no relief of symptoms. Sick contacts: yes, strep. History of asthma, frequent episodes of bronchitis, chronic bronchitis, bronchiectasis or COPD: No Smoker: No Seasonal/environmental allergies: No The ROS is otherwise negative. The patient's pmh, medications, allergies, and past visits are reviewed. PHYSICAL EXAM: BP 120/80 Pulse 97 Temp 37.8 C (100 F) Resp 18 Wt 119 kg (262 lb 5.6 oz) SpO2 99% BMI 35.58 kg/m General appearance: alert, cooperative, pleasant, in no acute distress Head: Normocephalic Eyes: EOM's intact, conjunctiva pink and moist, no icterus, sclera white, non-injected Ears: Right ear: External ear/canal- Normal, TM - clear with good landmarks. Left ear: External ear/canal- Normal, TM - clear with good landmarks Oropharynx:moderate erythema, without exudates present Heart: Negative. RRR without obvious murmur, gallop, or rubs. No ectopy. Lungs: clear to auscultation, without rales or wheeze, good air exchange PAST MEDICAL HISTORY Diagnosis Date Nonproliferative diabetic retinopathy of both eyes ([facility]) 05/31/2019 Type I (juvenile type) diabetes mellitus without mention of complication, not stated as uncontrolled ([facility]) Uncontrolled type 1 diabetes mellitus with diabetic neuropathy, with long-term current use of insulin 03/05/2016 PAST SURGICAL HISTORY Procedure Laterality Date NONE ALLERGIES Cefzil [Cefprozil] and Penicillins MEDICATIONS L.acidophilus-L.rhamnosus (PROBIOTIC) 15 billion cell capsule Take 1 capsule by mouth once daily. Insulin [place], Disposable, (BD ULTRAFINE III MINI PEN) 31 gauge x 3/16 ndle USE 1 NEEDLE FOR EACH DOSE 6 TIMES DAILY insulin glargine (LANTUS SOLOSTAR, BASAGLAR KWIKPEN) 100 unit/mL (3 mL) inpn Administer 45 units atbedtime insulin aspart U-100 (NOVOLOG FLEXPEN U-100 INSULIN) 100 unit/mL (3 mL) inpn Inject 32 units with meals up to 100 units daily. Plus sliding scale correction up to 32 units/day lancets (FREESTYLE LANCETS) 28 gauge misc Test blood sugar(s) 6x daily. Dx: e10.65. Insulin: Yes blood sugar diagnostic (FREESTYLE LITE STRIPS) test strip Test blood sugar(s) 6 times daily. Dx: e10.65. Insulin: Yes lactobacillus combination no.4 (PROBIOTIC) 3 billion cell cap Take 1 capsule by mouth once daily. (Patient not taking: Reported on 12/01/2023) FAMILY HISTORY Problem Relation Age of Onset Diabetes Mother Hyperlipidemia Mother COPD Father Coronary Artery Disease Father 35 Cancer Father lung Obesity Sister morbid obesity Thyroid Sister hypothyroid Depression Sister Heart Maternal Grandmother Stroke Maternal Grandmother Dementia Paternal Grandfather Diabetes Daughter Coronary Artery Disease Paternal Uncle Social History Tobacco Use Smoking status: Former Packs/day: .5 Types: Cigarettes Quit date: 07/22/2019 Years since quittin.4 Smokeless tobacco: Never Vaping Use Vaping Use: current everyday user Substance Use Topics Alcohol use: No Drug use: No ASSESSMENT/PLAN: 1. Sore throat - ICD9: 462, ICD10: J02.9 (primary diagnosis) - STREP A MOLECULAR (POC) - pos 2. Strep throat - ICD9: 034.0, ICD10: J02.0 - CEPHALEXIN 500 MG CAPSULE Prescription instructions reviewed with patient as applicable. Potential red flag symptoms discussed with the patient. Reviewed appropriate action plan to take if red flag symptoms occur. Patient agreeable to treatment plan. Iwona Mcduffie APRN.FLYNN documented in [facility] History of Present illness Narrative* Antonietta Miller APRN.CNP - 12/22/2023 2:27 PM EDT This note was created using [employer]. Subjective Trevon Raman is a 38 year old male. 38 year old male with PMH DM, hyperlipidemia presents for illness. Acute onset 3 days ago +diarrhea Liquid Yesterday he had approximately 6 bouts Today he has had x 4 bouts Denies fever or chills Denies back pain Tru abdominal pain Denies N/V Of note,he is on Doxycline for wound He states that he has had similar in past with ATB RX Should have been on a probiotic, but endorses he forget States he has 3 more days of ATB to complete Denies history of c. Diff He ate tacos earlier today, and states that made things worse. The history is provided by the patient. No world language teacher was used. Diarrhea This is a new problem. The current episode started more than 2 days ago. The problem occurs 2 to 4 times per day. The problem has not changed since onset.The stool consistency is described as Watery.There has been no fever. Pertinent negatives include no abdominal pain, no vomiting, no chills, no sweats, no headaches, no arthralgias, no myalgias, no URI and no cough. He has tried nothing for thesymptoms. The treatment provided no relief. His past medical history does not include irritable bowel syndrome, inflammatory bowel disease, short gut syndrome, bowel resection, recent abdominal surgery or malabsorption. PAST MEDICAL HISTORY Diagnosis Date Nonproliferative diabetic retinopathy of both eyes ([facility]) 05/31/2019 Type I (juvenile type) diabetes mellitus without mention of complication, not stated as uncontrolled ([facility]) Uncontrolled type 1 diabetes mellitus with diabetic neuropathy, with long-term current use of insulin 03/05/2016 PAST SURGICAL HISTORY Procedure Laterality Date NONE ALLERGIES Cefzil [Cefprozil] and Penicillins MEDICATIONS Insulin [place], Disposable, (BD ULTRAFINE III MINI PEN) 31 gauge x 3/16 ndle USE 1 NEEDLE FOR EACH DOSE 6 TIMES DAILY insulin glargine (LANTUS SOLOSTAR, BASAGLAR KWIKPEN) 100 unit/mL (3 mL) inpn Administer 45 units atbedtime insulin aspart U-100 (NOVOLOG FLEXPEN U-100 INSULIN) 100 unit/mL (3 mL) inpn Inject 32 units with meals up to 100 units daily. Plus sliding scale correction up to 32 units/day lancets (FREESTYLE LANCETS) 28 gauge misc Test blood sugar(s) 6x daily. Dx: e10.65. Insulin: Yes blood sugar diagnostic (FREESTYLE LITE STRIPS) test strip Test blood sugar(s) 6 times daily. Dx: e10.65. Insulin: Yes L.acidophilus-L.rhamnosus (PROBIOTIC) 15 billion cell capsule Take 1 capsule by mouth once daily. lactobacillus combination no.4 (PROBIOTIC) 3 billion cell cap Take 1 capsule by mouth once daily. (Patient not taking: Reported on 12/01/2023) FAMILY HISTORY Problem Relation Age of Onset Diabetes Mother Hyperlipidemia Mother COPD Father Coronary Artery Disease Father 35 Cancer Father lung Obesity Sister morbid obesity Thyroid Sister hypothyroid Depression Sister Heart Maternal Grandmother Stroke Maternal Grandmother Dementia Paternal Grandfather Diabetes Daughter Coronary Artery Disease Paternal Uncle Social History Tobacco Use Smoking status: Former Packs/day: .5 Types: Cigarettes Quit date: 07/22/2019 Years since quittin.4 Smokeless tobacco: Never Vaping Use Vaping Use: current everyday user Substance Use Topics Alcohol use: No Drug use: No Review of Systems Constitutional: Negative for activity change, appetite change, chills, fatigue and fever. Eyes: Negative for pain, discharge, redness and itching. Respiratory: Negative for apnea, cough, choking and chest tightness. Cardiovascular: Negative for chest pain, palpitations and leg swelling. Gastrointestinal: Positive for diarrhea. Negative for abdominal pain and vomiting. Musculoskeletal: Negative for arthralgias and myalgias. Skin: Negative for color change, pallor, rash and wound. Allergic/Immunologic: Negative for environmental allergies, food allergies and immunocompromised state. Neurological: Negative for dizziness, facial asymmetry, light-headedness, numbness and headaches. Hematological: Negative for adenopathy. Does not bruise/bleed easily. Psychiatric/Behavioral: Negative for agitation and behavioral problems. Objective BP 122/78 Pulse 82 Temp 36.2 C (97.2 F) (Tympanic) Resp 16 Wt 119.8 kg (264 lb 1.8 oz) SpO2 97% BMI 35.82 kg/m Physical Exam Vitals and nursing note reviewed. Constitutional: General: He is not in acute distress. Appearance: Normal appearance. He is not ill-appearing, toxic-appearing or diaphoretic. HENT: Head: Normocephalic and atraumatic. Right Ear: External ear normal. Left Ear: External ear normal. Nose: Nose normal. No congestion or rhinorrhea. Mouth/Throat: Mouth: Mucous membranes are moist. Pharynx: Oropharynx is clear. No oropharyngeal exudate or posterior oropharyngeal erythema. Eyes: General: Right eye: No discharge. Left eye: No discharge. Extraocular Movements: Extraocular movements intact. Conjunctiva/sclera: Conjunctivae normal. Pupils: Pupils are equal, round, and reactive to light. Cardiovascular: Rate and Rhythm: Normal rate and regular rhythm. Pulses: Normal pulses. Heart sounds: Normal heart sounds. No murmur heard. No friction rub. No gallop. Pulmonary: Effort: Pulmonary effort is normal. No respiratory distress. Breath sounds: Normal breath sounds. No stridor. No wheezing, rhonchi or rales. Chest: Chest wall: No tenderness. Abdominal: General: Abdomen is flat. There is no distension. Palpations: Abdomen is soft. There is no mass. Tenderness: There is no abdominal tenderness. There is no guarding or rebound. Hernia: No hernia is present. Musculoskeletal: General: No swelling, tenderness, deformity or signs of injury. Normal range of motion. Cervical back: Normal range of motion and neck supple. No rigidity or tenderness. Right lower leg: No edema. Left lower leg: No edema. Lymphadenopathy: Cervical: No cervical adenopathy. Skin: General: Skin is warm and dry. Capillary Refill: Capillary refill takes less than 2 seconds. Coloration: Skin is not jaundiced or pale. Findings: No bruising, lesion or rash. Neurological: General: No focal deficit present. Mental Status: He is alert and oriented to person, place, and time. Cranial Nerves: No cranial nerve deficit. Sensory: No sensory deficit. Motor: No weakness. Coordination: Coordination normal. Gait: Gait normal. Deep Tendon Reflexes: Reflexes normal. Psychiatric: Mood and Affect: Mood normal. Behavior: Behavior normal. Thought Content: Thought content normal. Assessment and Plan ASSESSMENT/PLAN: 1. Diarrhea, unspecified type - ICD9: 787.91, ICD10: R19.7 X 3 days No red flags Of note, on an ATB. He endorses similar occurrence in past. Discussed likely related to ATB usage Discussed bland diet IF he continues with diarrhea at end of week, should have stool tested to rule out c. Diff. RX Probiotics Antonietta Miller APRN.ACADEMIC REGISTRAR documented in this encounterSy[facility]05-[facility] History of Present illness Narrative* Iwona Mcduffie APRN.ACADEMIC REGISTRAR - 12/01/2023 1:40 PM EDT CC: Patient presents with: Nasal Congestion: drainage, cough x over 2 weeks HPI: Trevon Raman is a 38 year old male who presents to the office with complaint of head congestion, cough, nonproductive, and sinus symptoms for 2 weeks. Symptoms are staying the same. Associated symptoms includes nasal congestion and facial pain/pressure. Denies fever, wheezing, dyspnea, nausea, vomiting , and diarrhea. Treatments tried include nothing so far. with no relief of symptoms. Sick contacts: unknown. History of asthma, frequent episodes of bronchitis, chronic bronchitis, bronchiectasis or COPD: No Smoker: No Seasonal/environmental allergies: No The ROS is otherwise negative. The patient's pmh, medications, allergies, and past visits are reviewed. PHYSICAL EXAM: BP 126/72 Pulse 94 Temp 36.5 C (97.7 F) Resp 16 Wt 120 kg (264 lb 8.8 oz) SpO2 96% BMI 35.88 kg/m General appearance: alert, cooperative, pleasant, in no acute distress Head: Normocephalic Eyes: EOM's intact, conjunctiva pink and moist, no icterus, sclera white, non-injected Ears: Right ear: External ear/canal- Normal, TM - clear with good landmarks. Left ear: External ear/canal- Normal, TM - clear with good landmarks Oropharynx:moist without lesions, No erythema, exudates or tonsillar hypertrophy. Heart: Negative. RRR without obvious murmur, gallop, or rubs. No ectopy. Lungs: clear to auscultation, without rales or wheeze, good air exchange PAST MEDICAL HISTORY Diagnosis Date Nonproliferative diabetic retinopathy of both eyes ([facility]) 05/31/2019 Type I (juvenile type) diabetes mellitus without mention of complication, not stated as uncontrolled ([facility]) Uncontrolled type 1 diabetes mellitus with diabetic neuropathy, with long-term current use of insulin 03/05/2016 PAST SURGICAL HISTORY Procedure Laterality Date NONE ALLERGIES Cefzil [Cefprozil] and Penicillins MEDICATIONS Insulin [place], Disposable, (BD ULTRAFINE III MINI PEN) 31 gauge x 3/16 ndle USE 1 NEEDLE FOR EACH DOSE 6 TIMES DAILY insulin glargine (LANTUS SOLOSTAR, BASAGLAR KWIKPEN) 100 unit/mL (3 mL) inpn Administer 45 units atbedtime insulin aspart U-100 (NOVOLOG FLEXPEN U-100 INSULIN) 100 unit/mL (3 mL) inpn Inject 32 units with meals up to 100 units daily. Plus sliding scale correction up to 32 units/day lancets (FREESTYLE LANCETS) 28 gauge misc Test blood sugar(s) 6x daily. Dx: e10.65. Insulin: Yes blood sugar diagnostic (FREESTYLE LITE STRIPS) test strip Test blood sugar(s) 6 times daily. Dx: e10.65. Insulin: Yes doxycycline (VIBRA-TABS) 100 mg tablet Take 1 tablet by mouth two times a day for 7 days. lactobacillus combination no.4 (PROBIOTIC) 3 billion cell cap Take 1 capsule by mouth once daily. (Patient not taking: Reported on 12/01/2023) FAMILY HISTORY Problem Relation Age of Onset Diabetes Mother Hyperlipidemia Mother COPD Father Coronary Artery Disease Father 35 Cancer Father lung Obesity Sister morbid obesity Thyroid Sister hypothyroid Depression Sister Heart Maternal Grandmother Stroke Maternal Grandmother Dementia Paternal Grandfather Diabetes Daughter Coronary Artery Disease Paternal Uncle Social History Tobacco Use Smoking status: Former Packs/day: .5 Types: Cigarettes Quit date: 07/22/2019 Years since quittin.3 Smokeless tobacco: Never Vaping Use Vaping Use: current everyday user Substance Use Topics Alcohol use: No Drug use: No ASSESSMENT/PLAN: 1. Rhinosinusitis - ICD9: 473.9, ICD10: J32.9 - DOXYCYCLINE HYCLATE 100 MG TABLET Prescription instructions reviewed with patient as applicable. Potential red flag symptoms discussed with the patient. Reviewed appropriate action plan to take if red flag symptoms occur. Patient agreeable to treatment plan. Iwona Mcduffie APRN.ACADEMIC REGISTRAR documented in this encounterSy[facility]04-25-2024 Progress note Author George Ambrocio [facility] November 06, 2023 11:26am Note Date/Time November 06, 2023 11: 26am [facility] [address] [place] [id number] Progress Note - Wound Care 11/06/23 1117 MR#: [id number] Acct: [id number] Name: TREVON RAMAN Rep #:[id number] : 1985 38 From: George martinez DPM PCP: Dr. Magdiel Hurst MD Status:R EG RCR Location: History of Present Illness Date of Service: 11/06/23 Chief Complaint: right plantar foot ulcer and right leg ulcer History of Wound: This 38-year-old diabetic male presents to the wound healing center for a subfourth metatarsal ulceration of the right foot. 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 He states he tried to care for the ulceration for roughly 2 to 3 weeks in which it was not healing and presented to office. In office he did undergo debridement of the site continued offloading in cam boot however did not obtain his dressing supplies and was performing daily changes of wet to dry gauze. He was referred to the wound care center for applications of advanced wound care product. He states no pain secondary to diabetic peripheral polyneuropathy. He denies N/V/F/chills. He denies further complaints. Subjective Subjective This is a 38-year-old male who presents to the wound care center for follow-up of a plantar fourth metatarsal ulceration of the right foot. He is continued offloading site in CAM boot and surgical shoe with plantar offloading padding. He states he is not applying any new ointments to the site and noticed that is improving now with less maceration. States he has new job interview this afternoon. He denies constitutional symptoms. Denies further complaints. Objective Data Objective Data Vital Signs: Vital Signs Temp Pulse Resp BP O2 Del Method 97.5 F L 101 H 18 138/75 H Room Air 11/06/23 09:22 11/06/23 09:22 11/06/23 09:22 11/06/23 09:22 10/23/23 09:25 Oxygen Delivery Method Room Air Weight: 120.202 kg Body Mass Index (BMI) 35.9 Physical Exam Const alert, oriented x3 and no apparent distress General Appearance: cooperative HEENT normocephalic Eyes General Eye: normal appearance of both eyes Neck General: normal visual inspection Lymph Lymphatic: no lymphadenopathy noted and no lymphedema noted Resp normal respiratory effort Cardio regular rate and regular rhythm Extremity normal capillary refill, no joint enlargement, no calf tenderness and no pedal edema Extremity Narrative: DP and PT pulses palpable right foot. Capillary fill time less than 4 seconds to digits right foot. No pedal edema is noted. Dermatological: Skin is mildly xerotic to the plantar aspect. There is a ulceration subfourth metatarsal head with surrounding hyperkeratotic tissue and healthy appearing granular layer. There is scant serosanguineous drainage. No erythema, no purulent drainage, no malodor, no palpable fluctuance/bogginess noted, no visible abscess formation, no lymphangitic streaking. Musculoskeletal: Muscle strength 5 of 5 age-appropriate. Partial fifth ray amputation is noted to the right foot. Decreased range of motion of the ankle joint in dorsiflexion with the knee extended without pain or crepitus. Decreased range of motion of the first metatarsophalangeal joint without pain orcrepitus. Skin no rashes or lesions noted, skin turgor normal and no jaundice Neuro moves all extremities Debridement Note Debridement Note No debridement was completed: No debridement was completed today Post-Debridement Measurements and Additional Note: Post-Debridement Measurements/Treatment WC - Nurse 1 - General Ulcer Assessment Start: 10/23/23 09:25 Freq: Status: Active Protocol: WC.LOWEXT Activity Type Activity Date Activity User E-sign Co-sign Detail Recorded Client Recorded Date Recorded By Document 10/23/23 09:25 KW Desktop 10/23/23 09:36 KW Document 10/30/23 09:22 DL Desktop 10/30/23 09:30 DL Document 11/06/23 09:22 RB Desktop 11/06/23 09:24 RB 10/23/23 10/30/23 11/06/23 09:25 09:22 09:22 WC - Today's Visit Information Type of service Follow-up Visit Follow-up Visit Follow-up Visit (Physician/ACADEMIC REGISTRAR (Physician/ACADEMIC REGISTRAR (Physician/ACADEMIC REGISTRAR ) ) ) Arrival Mode Ambulatory Ambulatory Ambulatory Transfer Assistance None None Patient Identification Verified (Name & Yes Yes Yes ) Patient Requires Transmission-Based No No Precautions Height and Weight Body Mass Index (BMI) 35.9 35.9 35.9 BMI Classification Obese Obese Obese Vital Signs Temperature (97.8 F-99.1 F) 98.4 F 97.2 F L 97.5 F L Temperature Source Temporal Temporal Temporal Pulse Rate (60-100) 111 H 111 H 101 H Pulse Location Monitor Monitor Monitor Respiratory Rate (12-18) 18 20 H 18 Respiratory rate source Observation Observation Observation Oxygen Delivery Method Room Air Blood Pressure (90/60-120/80) 139/80 H 137/63 H 138/75 H Blood Pressure Mean (mm Hg) 99 87 96 Source Monitor Monitor Monitor Position Semi-Fowlers Semi-Fowlers Blood Pressure Location Left Arm Left Arm History Since Last Visit- (Skip if this is Patient's initial visit) Have you changed medications since your No No No last visit? Any new allergies or adverse reactions No No No Had a fall/change in ADL's that may No No No increase risk of falls Signs or symptoms of abuse and/or No No No neglect since last visit Have you been in the hospital since your No No No last visit? Has dressing in place as prescribed Yes Yes Yes Has compression in place as prescribed N/A Yes Yes Has offloadiing in place as prescribed Yes Yes No Experienced any changes in pain level or No No No management Left Footwear Regular Shoe Right Footwear Surgical Shoe with pressure relief insole Pain Scale: 0-10 Numeric Is Patient Pain Free? Yes Yes Yes WC - Nurse 1 - General Ulcer Measurement Start: 10/23/23 09:25 Freq: Status: Active Protocol: Activity Type Activity Date Activity User E-sign Co-sign Detail Recorded Client Recorded Date Recorded By Document 10/23/23 09:25 KW Desktop 10/23/23 09:36 KW Document 10/30/23 09:22 DL Desktop 10/30/23 09:30 DL Document 11/06/23 09:22 RB Desktop 11/06/23 09:24 RB 10/23/23 10/30/23 11/06/23 09:25 09:22 09:22 Wound Center Nurse 1 #4 Lateral Right Plantar Foot -Combined with other wound No -Current Size (cm) - Length 0.1 1 0.1 -Current Size (cm) - Width 0.1 0.2 0.1 -Current Size (cm) - Depth 0.1 0.3 0.1 -Total Square Cm 0.01 0.2 0.01 -Date of Last Picture (Recall this 10/23/23 field) -Photo Taken Yes -Tunneling No -Undermining/Tunneling No -Undermining/Tunneling Starts (O'clock 7 ) -Undermining/Tunneling Ends (O'clock) 10 -Maximum Distance (cm) 0.4 -Circular Undermining No -Exudate Amt Medium None Present -Exudate Type Serosanguineous -Wound Margin Distinct, Distinct, Outline Outline Attached Attached -Granulation Amt Small (1-33%) Medium (34-66%) -Granulation Quality [place] -Slough/Fibrin Yes -Necrosis Amt Large (67-100%) Small (1-33%) Small (1-33%) -Necrotic Tissue Type Adherent Slough Adherent Slough -Structure Exposed N/A N/A -Texture (Yu-wound Skin Appearance) Assessed,Callus Callus,Scarring Assessed,Callus -Moisture (Yu-wound Skin Appearance) Assessed,Dry/ Maceration Assessed Scaly -Color (Yu-wound Skin Appearance) Assessed No Abnormality Assessed -Temperature (Yu-wound Skin No Abnormality No Abnormality Appearance) (Pt Warm) (Pt Warm) -Tenderness on Palpation (Yu-wound No No No Skin Appearance) -Ulcer Cleansing Soap and Water Soap and Water Wound Cleanser -Foul Odor after Cleansing No No -Anesthetic Used 5% Lidocaine 5% Lidocaine 5% Lidocaine Gel Gel Gel - Nurse 2 - General Ulcer CM Notes Start: 10/23/23 09:25 Freq: Status: Active Protocol: Activity Type Activity Date Activity User E-sign Co-sign Detail Recorded Client Recorded Date Recorded By Document 10/23/23 09:44 [facility] Desktop 10/23/23 09:51 [employer] Document 10/30/23 09:42 [employer] Desktop 10/30/23 09:54 [employer] Document 11/06/23 09:46 [employer] Desktop 11/06/23 09:51 F 10/23/23 10/30/23 11/06/23 09:44 09:42 09:46 Wound Center Nurse 2 #4 Lateral Right Plantar Foot -Time 09:44 09:47 09:46 -Correct Patient Yes Yes -Correct Side, Site, Position Yes Yes -Correct Procedure Yes Yes -Procedure Performed Yes Yes -Type of Procedure Debridement Debridement -Clinical Debridement Subcutaneous Subcutaneous -Tissue Removed Subcutaneous Subcutaneous -Post Debridement (cm) - Length 0.1 1.5 0.1 -Post Debridement (cm) - Width 0.1 1 0.1 -Post Debridement (cm) - Depth 0.1 0.1 0.1 -Total Square (Post) (cm) 0.01 1.5 0.01 -Area of Debridement (cm) - Length 0.1 1.5 0.1 -Area of Debridement (cm) - Width 0.1 1 0.1 -Total Square (Area) (cm) 0.01 1.5 0.01 -Tunneling No No No -Undermining/Tunneling No No No -Circular Undermining No No No -Wound/Ulcer Outcome Not Healed Not Healed Not Healed -Ulcer Cleansing Rinsed/ Rinsed/ Irrigated with Irrigated with Saline Saline -Foul Odor after Cleansing No No -Bioengineered Tissue No No -Bleeding Controlled with Pressure Pressure -Treatment Response Procedure Procedure Tolerated Well Tolerated Well -Offloading Yes Yes Yes -Type of Offloading Surgical Shoe Darco Shoe - Darco Shoe - Right Right -Other Type of Offloading w/ offloading pad -Debridement - Subq, 1st 20sq cm Yes Yes Pain Scale: 0-10 Numeric Is Patient Pain Free? Yes Yes Yes - Nurse 3 - General Ulcer D/C NN Start: 10/23/23 09:25 Freq: Status: Active Protocol: Activity Type Activity Date Activity User E-sign Co-sign Detail Recorded Client Recorded Date Recorded By Document 10/30/23 10:00 ML Desktop 10/30/23 10:06 ML Document 11/06/23 10:10 RB Desktop 11/06/23 10:10 RB 10/30/23 11/06/23 10:00 10:10 Wound Care Center Nurse 3 #4 Lateral Right Plantar Foot -Ulcer Cleansing Rinsed/ Irrigated with Saline -Foul Odor after Cleansing No -Primary Dressing Applied Promogran Mepilex Border Jessica Matter -Mepilex Border 1 -Promogran Jessica Matter 2 Treatment Response Procedure Tolerated Well Pain Scale: 0-10 Numeric Is Patient Pain Free? Yes Yes WC - Visit Discharge Discharge Condition Stable Stable Ambulatory Status Ambulatory Ambulatory Transportation Private Auto Medication Reconcilliation completed & No provided to patient/care provider Clinical Summary of Care Provided Yes Notes: danielle wrap applied Assessment/Plan Assessment/Plan (1) Ulcer of right foot with fat layer exposed: CODE(S): L97.512 - Non-pressure chronic ulcer of other part of right foot with fat layer exposed (2) Type 1 diabetes mellitus with diabetic polyneuropathy: CODE(S): E10.42 - Type 1 diabetes mellitus with diabetic polyneuropathy (3) Diabetes mellitus with foot ulcer: CODE(S): E11.621 - Type 2 diabetes mellitus with foot ulcer; L97.509 - Non- pressure chronic ulcer of other part of unspecified foot with unspecified severity (4) Delayed wound healing: CODE(S): T14.8XXD - Other injury of unspecified body region, subsequent encounter PLAN: Plan Patient seen and evaluated He was instructed to utilize dry sterile dressings to pad and protect area as ulceration was nearly healed, however, he decided to use hydrogel which led to significant maceration of the surrounding skin and increasing the ulceration size. Discussed his instructions on dressing changes thoroughly today. He voices understanding of what he is now supposed to do in following instruction. Ulceration subfourth metatarsal head of the right foot did not undergo debridement today. Ulceration measures 0.1 cm x 0.1 cm x 0.1 cm. He has completed all 10 applications of EpiFix graft. Wound is improving with no maceration and some epithelialization. Dry sterile dressing applied to the right foot to pad and protect area. He is instructed to change dressing daily. Ulceration demonstrates reduction in size versus previous visit with less maceration tissue now that he is stopped all ointments. He was previously given work note for time off to allow him to remain off of thewound site to allow healing at previous visit and this is aiding in his improvement for healing with continued reduction in ulcerative size versus previous visit. Recommended continued offloading in CAM boot to the right foot with plantar offloading padding. Surgical shoe also offloaded so that he may wear this when getting up to go to the bathroom at night. Otherwise will remain in CAM boot with plantar offloading padding. 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 Shoe insert was offloaded with a fourth metatarsal head cut out and plantar fifth metatarsal base cut out to reduce pressure at the sites in shoe gear. Discussed once ulcer has healed he is to return to diabetic shoes with diabetic inserts. He is instructed to not pick at any calluses in future as this led to his ulceration. Discussed obtaining new diabetic shoe gear with new custom inserts. A comprehensive diabetic foot and ankle examination was performed today 11/06/2023. Examination demonstrates diabetes mellitus type 1 with peripheral polyneuropathy, previous bilateral partial fifth metatarsal amputations, preulcerative callus subfourth metatarsal head of the left foot, ulceration subfourth metatarsal head right foot. I am recommending updating diabetic shoe gear with custom trilaminate diabetic inserts with a subfifth metatarsal base pocket and subfourth metatarsal head pocket for offloading of these prominent pressure sites of bilateral feet. Discussed proper diabetic diet and tight glycemic control to continue to aid in healing of his ulceration. Discussed adequate protein intake to continue to aid in wound healing. Bhaskar supplementation also recommended to aid in wound healing. Last A1c 10/27/[address] Clement was 6.6%. Discussed continuing his proper diabetic diet to ensure good glycemic control. Discussed signs of infection today. He was instructed if he notices increasing redness about the ulcerative site that moves up onto the foot or up his leg, if he notices purulent drainage from the wound site, if he notices increasing foul odor from the wound, or if he develops fever greater than 101 degree, or nausea,or vomiting, or chills, that these are signs of a progressing infection and he should report to the ED to receive IV antibiotics. He voices understanding of this. The following work up and care recommendations were made: Dressing: Dry sterile dressing to pad and protect area. Change dressing daily Wash: Soap and water Tissue growth optimization: None Offload: Plantar offloading padding and CAM boot right foot Vascular: DP and PT pulses Palpable with adequate capillary fill time. Do not feel vascular status is impacting wound healing. Edema: No signs of pedal edema Infection: No signs of infection Pain: No pain secondary to diabetic peripheral polyneuropathy Host factors: DM type I with peripheral polyneuropathy, patient's himself as iatrogenic cause to ulcer, pressure I answered all the patient's questions. To return to the wound healing center in 1 week or call sooner if the patient has any questions or concerns. 11/06/23 1126 <Electronically signed by George Ambrocio DPM> Cosigner Signature (if applicable): CC: ~ Signed [facility] Work Phone: [phone] Progress note Author George Ambrocio [facility] October 30, 2023 12:13pm Note Date/Time October 30, 2023 11: 43am [facility] [address] [place] [address] Progress Note - Wound Care 10/30/23 1137 MR#: [id number] Acct: [id number] Name: TREVON RAMAN Rep #:[id number] 1 : 1985 38 From: George martinez DPM PCP: Dr. Magdiel Hurst MD Status:R EG RCR Location: History of Present Illness Date of Service: 10/30/23 Chief Complaint: right plantar foot ulcer and right leg ulcer History of Wound: This 38-year-old diabetic male presents to the wound healing center for a subfourth metatarsal ulceration of the right foot. 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 He states he tried to care for the ulceration for roughly 2 to 3 weeks in which it was not healing and presented to office. In office he did undergo debridement of the site continued offloading in cam boot however did not obtain his dressing supplies and was performing daily changes of wet to dry gauze. He was referred to the wound care center for applications of advanced wound care product. He states no pain secondary to diabetic peripheral polyneuropathy. He denies N/V/F/chills. He denies further complaints. Subjective Subjective This is a 38-year-old male who presents to the wound care center for follow-up of a plantar fourth metatarsal ulceration of the right foot. He is continued offloading site in CAM boot and surgical shoe with plantar offloading padding. He was instructed last week to pad and protect the area with dry sterile dressing as the ulceration was nearly healed. However, he states that he was applying hydrogel to the site daily causing maceration and worsening of his wound. He denies constitutional symptoms. Denies further complaints. Objective Data Objective Data Vital Signs: Vital Signs Temp Pulse Resp BP O2 Del Method 97.2 F L 111 H 20 H 137/63 H Room Air 10/30/23 09:22 10/30/23 09:22 10/30/23 09:22 10/30/23 09:22 10/23/23 09:25 Oxygen Delivery Method Room Air Weight: 120.202 kg Body Mass Index (BMI) 35.9 Physical Exam Const alert, oriented x3 and no apparent distress General Appearance: cooperative HEENT normocephalic Eyes General Eye: normal appearance of both eyes Neck General: normal visual inspection Lymph Lymphatic: no lymphadenopathy noted and no lymphedema noted Resp normal respiratory effort Cardio regular rate and regular rhythm Extremity normal capillary refill, no joint enlargement, no calf tenderness and no pedal edema Extremity Narrative: DP and PT pulses palpable right foot. Capillary fill time less than 4 seconds to digits right foot. No pedal edema is noted. Dermatological: Skin is mildly xerotic to the plantar aspect. There is a ulceration subfourth metatarsal head with surrounding hyperkeratotic tissue and healthy appearing granular layer. There is scant serosanguineous drainage. No erythema, no purulent drainage, no malodor, no palpable fluctuance/bogginess noted, no visible abscess formation, no lymphangitic streaking. Musculoskeletal: Muscle strength 5 of 5 age-appropriate. Partial fifth ray amputation is noted to the right foot. Decreased range of motion of the ankle joint in dorsiflexion with the knee extended without pain or crepitus. Decreased range of motion of the first metatarsophalangeal joint without pain orcrepitus. Skin no rashes or lesions noted, skin turgor normal and no jaundice Neuro moves all extremities Debridement Note Debridement Note Wound debrided: Subfourth metatarsal head right foot Laterality: Right Wound Grade/Stage: Reynoso stage I Type of Debridement: Excisional debridement Anesthesia Used: 5% Lidocaine Gel Depth: Down to and including healthy tissue and in the subcutaneous layer Percentage of wound debrided: 100 Instrument Used: #15 blade Tissue Removed: Fibrous, devitalized subcutaneous, biofilm, slough Severity: Fat Layer Exposed Amount of bleeding with debridement: Mild Bleeding Controlled with: Compression and gauze Patient tolerated procedure: Patient tolerated procedure well Post-Debridement Measurements and Additional Note: Post-Debridement Measurements/Treatment - Nurse 1 - General Ulcer Assessment Start: 10/23/23 09:25 Freq: Status: Active Protocol: LORI Activity Type Activity Date Activity User E-sign Co-sign Detail Recorded Client Recorded Date Recorded By Document 10/23/23 09:25 KW Desktop 10/23/23 09:36 KW Document 10/30/23 09:22 DL Desktop 10/30/23 09:30 DL 10/23/23 10/30/23 09:25 09:22 - Today's Visit Information Type of service Follow-up Visit Follow-up Visit (Physician/ACADEMIC REGISTRAR (Physician/ACADEMIC REGISTRAR ) ) Arrival Mode Ambulatory Ambulatory Transfer Assistance None Patient Identification Verified (Name & Yes Yes ) Patient Requires Transmission-Based No Precautions Height and Weight Body Mass Index (BMI) 35.9 35.9 BMI Classification Obese Obese Vital Signs Temperature (97.8 F-99.1 F) 98.4 F 97.2 F L Temperature Source Temporal Temporal Pulse Rate (60-100) 111 H 111 H Pulse Location Monitor Monitor Respiratory Rate (12-18) 18 20 H Respiratory rate source Observation Observation Oxygen Delivery Method Room Air Blood Pressure (90/60-120/80) 139/80 H 137/63 H Blood Pressure Mean (mm Hg) 99 87 Source Monitor Monitor Position Semi-Fowlers Blood Pressure Location Left Arm History Since Last Visit- (Skip if this is Patient's initial visit) Have you changed medications since your No No last visit? Any new allergies or adverse reactions No No Had a fall/change in ADL's that may No No increase risk of falls Signs or symptoms of abuse and/or No No neglect since last visit Have you been in the hospital since your No No last visit? Has dressing in place as prescribed Yes Yes Has compression in place as prescribed N/A Yes Has offloadiing in place as prescribed Yes Yes Experienced any changes in pain level or No No management Left Footwear Regular Shoe Right Footwear Surgical Shoe with pressure relief insole Pain Scale: 0-10 Numeric Is Patient Pain Free? Yes Yes WC - Nurse 1 - General Ulcer Measurement Start: 10/23/23 09:25 Freq: Status: Active Protocol: Activity Type Activity Date Activity User E-sign Co-sign Detail Recorded Client Recorded Date Recorded By Document 10/23/23 09:25 KW Desktop 10/23/23 09:36 KW Document 10/30/23 09:22 DL Desktop 10/30/23 09:30 DL 10/23/23 10/30/23 09:25 09:22 Wound Center Nurse 1 #4 Lateral Right Plantar Foot -Current Size (cm) - Length 0.1 1 -Current Size (cm) - Width 0.1 0.2 -Current Size (cm) - Depth 0.1 0.3 -Total Square Cm 0.01 0.2 -Date of Last Picture (Recall this 10/23/23 field) -Photo Taken Yes -Undermining/Tunneling Starts (O'clock 7 ) -Undermining/Tunneling Ends (O'clock) 10 -Maximum Distance (cm) 0.4 -Exudate Amt Medium -Exudate Type Serosanguineous -Wound Margin Distinct, Outline Attached -Granulation Amt Small (1-33%) -Granulation [place] -Necrosis Amt Large (67-100%) Small (1-33%) -Necrotic Tissue Type Adherent Slough -Structure Exposed N/A -Texture (Yu-wound Skin Appearance) Assessed,Callus Callus,Scarring -Moisture (Yu-wound Skin Appearance) Assessed,Dry/ Maceration Scaly -Color (Yu-wound Skin Appearance) Assessed No Abnormality -Temperature (Yu-wound Skin No Abnormality Appearance) (Pt Warm) -Tenderness on Palpation (Yu-wound No No Skin Appearance) -Ulcer Cleansing Soap and Water Soap and Water -Foul Odor after Cleansing No -Anesthetic Used 5% Lidocaine 5% Lidocaine Gel Gel WC - Nurse 2 - General Ulcer CM Notes Start: 10/23/23 09:25 Freq: Status: Active Protocol: Activity Type Activity Date Activity User E-sign Co-sign Detail Recorded Client Recorded Date Recorded By Document 10/23/23 09:44 [facility] Desktop 10/23/23 09:51 BM Document 10/30/23 09:42 [facility] Desktop 10/30/23 09:54 F 10/23/23 10/30/23 09:44 09:42 Wound Center Nurse 2 #4 Lateral Right Plantar Foot -Time 09:44 09:47 -Correct Patient Yes Yes -Correct Side, Site, Position Yes Yes -Correct Procedure Yes Yes -Procedure Performed Yes Yes -Type of Procedure Debridement Debridement -Clinical Debridement Subcutaneous Subcutaneous -Tissue Removed Subcutaneous Subcutaneous -Post Debridement (cm) - Length 0.1 1.5 -Post Debridement (cm) - Width 0.1 1 -Post Debridement (cm) - Depth 0.1 0.1 -Total Square (Post) (cm) 0.01 1.5 -Area of Debridement (cm) - Length 0.1 1.5 -Area of Debridement (cm) - Width 0.1 1 -Total Square (Area) (cm) 0.01 1.5 -Tunneling No No -Undermining/Tunneling No No -Circular Undermining No No -Wound/Ulcer Outcome Not Healed Not Healed -Ulcer Cleansing Rinsed/ Rinsed/ Irrigated with Irrigated with Saline Saline -Foul Odor after Cleansing No No -Bioengineered Tissue No No -Bleeding Controlled with Pressure Pressure -Treatment Response Procedure Procedure Tolerated Well Tolerated Well -Offloading Yes Yes -Type of Offloading Surgical Shoe Darco Shoe - Right -Debridement - Subq, 1st 20sq cm Yes Yes Pain Scale: 0-10 Numeric Is Patient Pain Free? Yes Yes RENETTA - Nurse 3 - General Ulcer D/C NN Start: 10/23/23 09:25 Freq: Status: Active Protocol: Activity Type Activity Date Activity User E-sign Co-sign Detail Recorded Client Recorded Date Recorded By Document 10/30/23 10:00 ML Desktop 10/30/23 10:06 ML 10/30/23 10:00 Wound Care Center Nurse 3 #4 Lateral Right Plantar Foot -Ulcer Cleansing Rinsed/ Irrigated with Saline -Foul Odor after Cleansing No -Primary Dressing Applied Promogran Jessica Matter -Promogran Jessica Matter 2 Pain Scale: 0-10 Numeric Is Patient Pain Free? Yes WC - Visit Discharge Discharge Condition Stable Ambulatory Status Ambulatory Notes: danielle wrap applied Assessment/Plan Assessment/Plan (1) Ulcer of right foot with fat layer exposed: CODE(S): L97.512 - Non-pressure chronic ulcer of other part of right foot with fat layer exposed (2) Type 1 diabetes mellitus with diabetic polyneuropathy: CODE(S): E10.42 - Type 1 diabetes mellitus with diabetic polyneuropathy (3) Diabetes mellitus with foot ulcer: CODE(S): E11.621 - Type 2 diabetes mellitus with foot ulcer; L97.509 - Non- pressure chronic ulcer of other part of unspecified foot with unspecified severity (4) Delayed wound healing: CODE(S): T14.8XXD - Other injury of unspecified body region, subsequent encounter PLAN: Plan Patient seen and evaluated He was instructed to utilize dry sterile dressings to pad and protect area as ulceration was nearly healed, however, he decided to use hydrogel which led to significant maceration of the surrounding skin and increasing the ulceration size. Discussed his instructions on dressing changes thoroughly today. He voices understanding of what he is now supposed to do in following instruction. Ulceration subfourth metatarsal head of the right foot was debrided as noted in the clinical panel above. Ulceration measures 1.5 cm x 1.0 cm x 0.1 cm. He hascompleted all 10 applications of EpiFix graft. Wound was near closure however. Dry sterile dressing applied to the right foot to pad and protect area. He is instructed to change dressing daily. Ulceration demonstrates increase in size versus previous visit due to increased maceration secondary to inappropriate dressing change. He was previously given work note for time off to allow him to remain off of thewound site to allow healing at previous visit and this is aiding in his improvement for healing with continued reduction in ulcerative size versus previous visit. Recommended continued offloading in CAM boot to the right foot with plantar offloading padding. Surgical shoe also offloaded so that he may wear this when getting up to go to the bathroom at night. Otherwise will remain in CAM boot with plantar offloading padding. Discussed once ulcer has healed he is to return to diabetic shoes with diabetic inserts. He is instructed to not pick at any calluses in future as this led to his ulceration. Discussed proper diabetic diet and tight glycemic control to continue to aid in healing of his ulceration. Discussed adequate protein intake to continue to aid in wound healing. Bhaskar supplementation also recommended to aid in wound healing. Discussed signs of infection today. He was instructed if he notices increasing redness about the ulcerative site that moves up onto the foot or up his leg, if he notices purulent drainage from the wound site, if he notices increasing foul odor from the wound, or if he develops fever greater than 101 degree, or nausea,or vomiting, or chills, that these are signs of a progressing infection and he should report to the ED to receive IV antibiotics. He voices understanding of this. The following work up and care recommendations were made: Dressing: Dry sterile dressing to pad and protect area. Change dressing daily Wash: Soap and water Tissue growth optimization: None Offload: Plantar offloading padding and CAM boot right foot Vascular: DP and PT pulses Palpable with adequate capillary fill time. Do not feel vascular status is impacting wound healing. Edema: No signs of pedal edema Infection: No signs of infection Pain: No pain secondary to diabetic peripheral polyneuropathy Host factors: DM type I with peripheral polyneuropathy, patient's himself as iatrogenic cause to ulcer, pressure I answered all the patient's questions. To return to the wound healing center in 1 week or call sooner if the patient has any questions or concerns. 10/30/23 1213 <Electronically signed by George Ambrocio DPM> Cosigner Signature (if applicable): CC: ~ Signed [facility] Work Phone: [phone] Progress note Author George Ambrocio [facility] October 23, 2023 10:41am Note Date/Time October 23, 2023 10: 00am [facility] [address] [place] [address] Progress Note - Wound Care 10/23/23 0956 MR#: [id number] Acct: [id number] Name: TREVON RAMAN Rep #:[id number] : 1985 38 From: George martinez DPM PCP: Dr. Magdiel Hurst MD Status:R EG RCR Location: History of Present Illness Date of Service: 10/23/23 Chief Complaint: right plantar foot ulcer and right leg ulcer History of Wound: This 38-year-old diabetic male presents to the wound healing center for a subfourth metatarsal ulceration of the right foot. 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 He states he tried to care for the ulceration for roughly 2 to 3 weeks in which it was not healing and presented to office. In office he did undergo debridement of the site continued offloading in cam boot however did not obtain his dressing supplies and was performing daily changes of wet to dry gauze. He was referred to the wound care center for applications of advanced wound care product. He states no pain secondary to diabetic peripheral polyneuropathy. He denies N/V/F/chills. He denies further complaints. Subjective Subjective This is a 38-year-old male who presents to the wound care center for follow-up of a plantar fourth metatarsal ulceration of the right foot. He is continued offloading site in CAM boot and surgical shoe with plantar offloading padding. He has left grafting product in place to the wound bed and is changing outer dressing as needed. He is currently looking for new job that will allow him to not stand on his foot all day. States he has noticed improvement in the wound and believes it is near healed. He denies constitutional symptoms. Denies further complaints. Objective Data Objective Data Vital Signs: Vital Signs Temp Pulse Resp BP O2 Del Method 98.4 F 111 H 18 139/80 H Room Air 10/23/23 09:25 10/23/23 09:25 10/23/23 09:25 10/23/23 09:25 10/23/23 09:25 Oxygen Delivery Method Room Air Weight: 120.202 kg Body Mass Index (BMI) 35.9 Physical Exam Const alert, oriented x3 and no apparent distress General Appearance: cooperative HEENT normocephalic Eyes General Eye: normal appearance of both eyes Neck General: normal visual inspection Resp normal respiratory effort Cardio regular rate and regular rhythm Extremity normal capillary refill, no joint enlargement, no calf tenderness and no pedal edema Extremity Narrative: DP and PT pulses palpable right foot. Capillary fill time less than 4 seconds to digits right foot. No pedal edema is noted. Dermatological: Skin is mildly xerotic to the plantar aspect. There is a ulceration subfourth metatarsal head with surrounding hyperkeratotic tissue and healthy appearing granular layer. There is scant serosanguineous drainage. No erythema, no purulent drainage, no malodor, no palpable fluctuance/bogginess noted, no visible abscess formation, no lymphangitic streaking. Musculoskeletal: Muscle strength 5 of 5 age-appropriate. Partial fifth ray amputation is noted to the right foot. Decreased range of motion of the ankle joint in dorsiflexion with the knee extended without pain or crepitus. Decreased range of motion of the first metatarsophalangeal joint without pain orcrepitus. Skin no rashes or lesions noted, skin turgor normal and no jaundice Neuro moves all extremities Debridement Note Debridement Note Wound debrided: Subfourth metatarsal Laterality: Right Wound Grade/Stage: Reynoso stage I Type of Debridement: Excisional debridement Anesthesia Used: 5% Lidocaine Gel Depth: Down to and including healthy tissue and in the subcutaneous layer Percentage of wound debrided: 100 Instrument Used: #15 blade Tissue Removed: Fibrous, devitalized subcutaneous, biofilm, slough Severity: Fat Layer Exposed Amount of bleeding with debridement: Mild Bleeding Controlled with: Compression and gauze Patient tolerated procedure: Patient tolerated procedure well Post-Debridement Measurements and Additional Note: Post-Debridement Measurements/Treatment - Nurse 1 - General Ulcer Assessment Start: 10/23/23 09:25 Freq: Status: Active Protocol: LORI Activity Type Activity Date Activity User E-sign Co-sign Detail Recorded Client Recorded Date Recorded By Document 10/23/23 09:25 KW Desktop 10/23/23 09:36 KW 10/23/23 09:25 - Today's Visit Information Type of service Follow-up Visit (Physician/ACADEMIC REGISTRAR ) Arrival Mode Ambulatory Patient Identification Verified (Name & Yes ) Height and Weight Body Mass Index (BMI) 35.9 BMI Classification Obese Vital Signs Temperature (97.8 F-99.1 F) 98.4 F Temperature Source Temporal Pulse Rate (60-100) 111 H Pulse Location Monitor Respiratory Rate (12-18) 18 Respiratory rate source Observation Oxygen Delivery Method Room Air Blood Pressure (90/60-120/80) 139/80 H Blood Pressure Mean (mm Hg) 99 Source Monitor Position Semi-Fowlers Blood Pressure Location Left Arm History Since Last Visit- (Skip if this is Patient's initial visit) Have you changed medications since your No last visit? Any new allergies or adverse reactions No Had a fall/change in ADL's that may No increase risk of falls Signs or symptoms of abuse and/or No neglect since last visit Have you been in the hospital since your No last visit? Has dressing in place as prescribed Yes Has compression in place as prescribed N/A Has offloadiing in place as prescribed Yes Experienced any changes in pain level or No management Left Footwear Regular Shoe Right Footwear Surgical Shoe with pressure relief insole Pain Scale: 0-10 Numeric Is Patient Pain Free? Yes WC - Nurse 1 - General Ulcer Measurement Start: 10/23/23 09:25 Freq: Status: Active Protocol: Activity Type Activity Date Activity User E-sign Co-sign Detail Recorded Client Recorded Date Recorded By Document 10/23/23 09:25 KW Desktop 10/23/23 09:36 KW 10/23/23 09:25 Wound Center Nurse 1 #4 Lateral Right Plantar Foot -Current Size (cm) - Length 0.1 -Current Size (cm) - Width 0.1 -Current Size (cm) - Depth 0.1 -Total Square Cm 0.01 -Date of Last Picture (Recall this 10/23/23 field) -Photo Taken Yes -Necrosis Amt Large (67-100%) -Necrotic Tissue Type Adherent Slough -Texture (Yu-wound Skin Appearance) Assessed,Callus -Moisture (Yu-wound Skin Appearance) Assessed,Dry/ Scaly -Color (Yu-wound Skin Appearance) Assessed -Temperature (Yu-wound Skin No Abnormality Appearance) (Pt Warm) -Tenderness on Palpation (Yu-wound No Skin Appearance) -Ulcer Cleansing Soap and Water -Anesthetic Used 5% Lidocaine Gel WC - Nurse 2 - General Ulcer CM Notes Start: 10/23/23 09:25 Freq: Status: Active Protocol: Activity Type Activity Date Activity User E-sign Co-sign Detail Recorded Client Recorded Date Recorded By Document 10/23/23 09:44 [facility] Desktop 10/23/23 09:51 BMF 10/23/23 09:44 Wound Center Nurse 2 -Time 09:44 -Correct Patient Yes -Correct Side, Site, Position Yes -Correct Procedure Yes -Procedure Performed Yes -Type of Procedure Debridement -Clinical Debridement Subcutaneous -Tissue Removed Subcutaneous -Post Debridement (cm) - Length 0.1 -Post Debridement (cm) - Width 0.1 -Post Debridement (cm) - Depth 0.1 -Total Square (Post) (cm) 0.01 -Area of Debridement (cm) - Length 0.1 -Area of Debridement (cm) - Width 0.1 -Total Square (Area) (cm) 0.01 -Tunneling No -Undermining/Tunneling No -Circular Undermining No -Wound/Ulcer Outcome Not Healed -Ulcer Cleansing Rinsed/ Irrigated with Saline -Foul Odor after Cleansing No -Bioengineered Tissue No -Bleeding Controlled with Pressure -Treatment Response Procedure Tolerated Well -Offloading Yes -Type of Offloading Surgical Shoe -Debridement - Subq, 1st 20sq cm Yes Pain Scale: 0-10 Numeric Is Patient Pain Free? Yes Assessment/Plan Assessment/Plan (1) Ulcer of right foot with fat layer exposed: CODE(S): L97.512 - Non-pressure chronic ulcer of other 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 Ulceration measures 0.1 cm x 0.1 cm x 0.1 cm. He hascompleted all 10 applications of EpiFix graft. Wound is near closure. Dry sterile dressing applied to the right foot to pad and protect area. He is instructed to change dressing daily. Ulceration demonstrates decrease in size versus previous visit. Ulceration is nearing closure He was given work note for time off to allow him to remain off of the wound siteto allow healing at previous visit and this is aiding in his improvement for healing with continued reduction in ulcerative size versus previous visit. Recommended continued offloading in CAM boot to the right foot with plantar offloading padding. Surgical shoe also offloaded so that he may wear this when getting up to go to the bathroom at night. Otherwise will remain in CAM boot with plantar offloading padding. Discussed once ulcer has healed he is to return to diabetic shoes with diabetic inserts. He is instructed to not pick at any calluses in future as this led to his ulceration. Discussed proper diabetic diet and tight glycemic control to continue to aid in healing of his ulceration. Discussed adequate protein intake to continue to aid in wound healing. Bhaskar supplementation also recommended to aid in wound healing. Discussed signs of infection today. He was instructed if he notices increasing redness about the ulcerative site that moves up onto the foot or up his leg, if he notices purulent drainage from the wound site, if he notices increasing foul odor from the wound, or if he develops fever greater than 101 degree, or nausea,or vomiting, or chills, that these are signs of a progressing infection and he should report to the ED to receive IV antibiotics. He voices understanding of this. The following work up and care recommendations were made: Dressing: Dry sterile dressing to pad and protect area. Change dressing daily Wash: Soap and water Tissue growth optimization: None Offload: Plantar offloading padding and CAM boot right foot Vascular: DP and PT pulses Palpable with adequate capillary fill time. Do not feel vascular status is impacting wound healing. Edema: No signs of pedal edema Infection: No signs of infection Pain: No pain secondary to diabetic peripheral polyneuropathy Host factors: DM type I with peripheral polyneuropathy, patient's himself as iatrogenic cause to ulcer, pressure I answered all the patient's questions. To return to the wound healing center in 1 week or call sooner if the patient has any questions or concerns. 10/23/23 1041 <Electronically signed by George Ambrocio DPM> Cosigner Signature (if applicable): CC: ~ Signed [facility] Work Phone: [phone] Progress note Author George Ambrocio [facility] October 09, 2023 10:28am Note Date/Time October 09, 2023 10: 28am [facility] [address] [place] [address] Progress Note - Wound Care 10/09/23 1025 MR#: [id number] Acct: [id number] Name: TREVON RAMAN Rep #:[id number] : 1985 38 From: George martinez DPM PCP: Dr. Magdiel Hurst MD Status:R EG RCR Location: History of Present Illness Date of Service: 10/09/23 Chief Complaint: right plantar foot ulcer and right leg ulcer History of Wound: This 38-year-old diabetic male presents to the wound healing center for a subfourth metatarsal ulceration of the right foot. 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 He states he tried to care for the ulceration for roughly 2 to 3 weeks in which it was not healing and presented to office. In office he did undergo debridement of the site continued offloading in cam boot however did not obtain his dressing supplies and was performing daily changes of wet to dry gauze. He was referred to the wound care center for applications of advanced wound care product. He states no pain secondary to diabetic peripheral polyneuropathy. He denies N/V/F/chills. He denies further complaints. Subjective Subjective This is a 38-year-old male who presents to the wound care center for follow-up of a plantar fourth metatarsal ulceration of the right foot. He is continued offloading site in CAM boot and surgical shoe with plantar offloading padding. He has left grafting product in place to the wound bed and is changing outer dressing as needed. He has taken time off again from work and feels that the foot is improving as he is now staying off of it more. He denies constitutionalsymptoms. Denies further complaints. Objective Data Objective Data Vital Signs: Vital Signs Temp Pulse Resp BP O2 Del Method 98.9 F 106 H 16 125/83 H Room Air 10/09/23 09:29 10/09/23 09:29 10/09/23 09:29 10/09/23 09:29 10/09/23 09:29 Oxygen Delivery Method Room Air Weight: 120.202 kg Body Mass Index (BMI) 35.9 Physical Exam Const alert, oriented x3 and no apparent distress General Appearance: cooperative HEENT normocephalic Eyes General Eye: normal appearance of both eyes Neck General: normal visual inspection Lymph Lymphatic: no lymphadenopathy noted and no lymphedema noted Resp normal respiratory effort Cardio regular rate and regular rhythm Extremity normal capillary refill, no joint enlargement, no calf tenderness and no pedal edema Extremity Narrative: DP and PT pulses palpable right foot. Capillary fill time less than 4 seconds to digits right foot. No pedal edema is noted. Dermatological: Skin is mildly xerotic to the plantar aspect. There is a ulceration subfourth metatarsal head with surrounding hyperkeratotic tissue and healthy appearing granular layer. There is scant serosanguineous drainage. No erythema, no purulent drainage, no malodor, no palpable fluctuance/bogginess noted, no visible abscess formation, no lymphangitic streaking. Musculoskeletal: Muscle strength 5 of 5 age-appropriate. Partial fifth ray amputation is noted to the right foot. Decreased range of motion of the ankle joint in dorsiflexion with the knee extended without pain or crepitus. Decreased range of motion of the first metatarsophalangeal joint without pain orcrepitus. Skin no rashes or lesions noted, skin turgor normal and no jaundice Neuro moves all extremities Debridement Note Debridement Note Wound debrided: Subfourth metatarsal head right foot Laterality: Right Wound Grade/Stage: Reynoso stage I Type of Debridement: Excisional debridement Anesthesia Used: 5% Lidocaine Gel Depth: Down to and including healthy tissue and in the subcutaneous layer Percentage of wound debrided: 100 Instrument Used: 3mm curette and #15 blade Tissue Removed: Fibrous, devitalized subcutaneous, biofilm, slough Severity: Fat Layer Exposed Amount of bleeding with debridement: Mild Bleeding Controlled with: Compression and gauze Patient tolerated procedure: Patient tolerated procedure well Post-Debridement Measurements and Additional Note: Post-Debridement Measurements/Treatment RENETTA - Nurse 1 - General Ulcer Assessment Start: 09/18/23 09:34 Freq: Status: Active Protocol: LORI Activity Type Activity Date Activity User E-sign Co-sign Detail Recorded Client Recorded Date Recorded By Document 09/18/23 09:35 DL Desktop 09/18/23 09:43 DL Edit Result 09/18/23 09:35 DL (1) Desktop 09/18/23 09:45 DL Document 09/25/23 09:17 MT Desktop 09/25/23 09:23 MT Document 10/02/23 09:54 DL Desktop 10/02/23 10:03 DL Document 10/09/23 09:29 CP Desktop 10/09/23 09:37 CP (1) Blood Pressure (90/60-120/80) 117/93 H => 136/84 H 09/18/23 09/25/23 10/02/23 09:35 09:17 09:54 WC - Today's Visit Information Type of service Follow-up Visit Follow-up Visit Follow-up Visit (Physician/ACADEMIC REGISTRAR (Physician/ACADEMIC REGISTRAR (Physician/ACADEMIC REGISTRAR ) ) ) Arrival Mode Ambulatory Ambulatory Ambulatory Transfer Assistance None None Patient Identification Verified (Name & Yes Yes Yes ) Patient Requires Transmission-Based No No Precautions Finger Stick Blood Sugar(mg/dl) (if 155 124 96 indicated): Blood Sugar Stated by Stated by Stated by Patient Patient Patient Height and Weight Body Mass Index (BMI) 35.9 35.9 35.9 BMI Classification Obese Obese Obese Vital Signs Temperature (97.8 F-99.1 F) 97.9 F 98 F 97.5 F L Temperature Source Temporal Temporal Temporal Pulse Rate (60-100) 103 H 87 99 Pulse Location Monitor Monitor Monitor Respiratory Rate (12-18) 20 H 18 20 H Respiratory rate source Observation Observation Observation Oxygen Delivery Method Room Air Blood Pressure (90/60-120/80) 136/84 H 115/76 117/65 Blood Pressure Mean (mm Hg) 101 89 82 Source Monitor Monitor Monitor Position Sitting Blood Pressure Location Left Arm History Since Last Visit- (Skip if this is Patient's initial visit) Have you changed medications since your No No last visit? Any new allergies or adverse reactions No No Had a fall/change in ADL's that may No No increase risk of falls Signs or symptoms of abuse and/or No No neglect since last visit Have you been in the hospital since your No No last visit? Has dressing in place as prescribed Yes Yes Has compression in place as prescribed N/A N/A N/A Has offloadiing in place as prescribed Yes N/A Yes Experienced any changes in pain level or No management Left Footwear Regular Shoe Right Footwear Surgical Shoe Diabetic Shoe with pressure relief insole Pain Scale: 0-10 Numeric Is Patient Pain Free? Yes Yes Yes 10/09/23 09:29 WC - Today's Visit Information Type of service Follow-up Visit (Physician/ACADEMIC REGISTRAR ) Arrival Mode Ambulatory Transfer Assistance Patient Identification Verified (Name & Yes ) Patient Requires Transmission-Based No Precautions Finger Stick Blood Sugar(mg/dl) (if 81 indicated): Blood Sugar Stated by Patient Height and Weight Body Mass Index (BMI) 35.9 BMI Classification Obese Vital Signs Temperature (97.8 F-99.1 F) 98.9 F Temperature Source Temporal Pulse Rate (60-100) 106 H Pulse Location Monitor Respiratory Rate (12-18) 16 Respiratory rate source Observation Oxygen Delivery Method Room Air Blood Pressure (90/60-120/80) 125/83 H Blood Pressure Mean (mm Hg) 97 Source Monitor Position Sitting Blood Pressure Location Right Arm History Since Last Visit- (Skip if this is Patient's initial visit) Have you changed medications since your No last visit? Any new allergies or adverse reactions No Had a fall/change in ADL's that may No increase risk of falls Signs or symptoms of abuse and/or No neglect since last visit Have you been in the hospital since your No last visit? Has dressing in place as prescribed Yes Has compression in place as prescribed N/A Has offloadiing in place as prescribed Yes Experienced any changes in pain level or No management Left Footwear Right Footwear Surgical Shoe with pressure relief insole Pain Scale: 0-10 Numeric Is Patient Pain Free? Yes WC - Nurse 1 - General Ulcer Measurement Start: 09/18/23 09:34 Freq: Status: Active Protocol: Activity Type Activity Date Activity User E-sign Co-sign Detail Recorded Client Recorded Date Recorded By Document 09/18/23 09:35 DL Desktop 09/18/23 09:43 DL Document 09/25/23 09:17 MT Desktop 09/25/23 09:23 MT Document 10/02/23 09:54 DL Desktop 10/02/23 10:03 DL Document 10/09/23 09:29 CP Desktop 10/09/23 09:37 CP 09/18/23 09/25/23 10/02/23 09:35 09:17 09:54 Wound Center Nurse 1 #4 Lateral Right Plantar Foot -Current Size (cm) - Length 0.5 0.5 0.2 -Current Size (cm) - Width 0.6 0.5 0.3 -Current Size (cm) - Depth 0.4 0.3 0.1 -Total Square Cm 0.30 0.25 0.06 -Date of Last Picture (Recall this field) -Photo Taken Yes -Epithelialization -Tunneling Yes -Tunneling Position (O'clock) 4 -Tunneling Distance (cm) 2.8 -Undermining/Tunneling Yes -Undermining/Tunneling Starts (O'clock 12 ) -Undermining/Tunneling Ends (O'clock) 12 -Maximum Distance #2 (cm) 0.2 -Circular Undermining Yes -Exudate Amt Small Medium None Present -Exudate Type Serosanguineous Serosanguineous -Wound Margin Distinct, Thickened & Thickened Outline Rolled Under Attached -Granulation Amt Small (1-33%) Small (1-33%) -Granulation [place] -Slough/Fibrin -Necrosis Amt Small (1-33%) Large (67-100%) None Present (0 %) -Necrotic Tissue Type Adherent Slough Adherent Slough -Structure Exposed N/A -Texture (Yu-wound Skin Appearance) Scarring Assessed,Callus Callus -Moisture (Yu-wound Skin Appearance) Dry/Scaly Assessed Dry/Scaly -Color (Yu-wound Skin Appearance) No Abnormality Assessed No Abnormality -Temperature (Yu-wound Skin No Abnormality No Abnormality No Abnormality Appearance) (Pt Warm) (Pt Warm) (Pt Warm) -Tenderness on Palpation (Yu-wound No Skin Appearance) -Ulcer Cleansing Soap and Water Soap and Water Soap and Water -Foul Odor after Cleansing No No No -Anesthetic Used 5% Lidocaine 5% Lidocaine Gel Gel Lower Limb Edema Present NA 10/09/23 09:29 Wound Center Nurse 1 #4 Lateral Right Plantar Foot -Current Size (cm) - Length 0.4 -Current Size (cm) - Width 0.3 -Current Size (cm) - Depth 0.4 -Total Square Cm 0.12 -Date of Last Picture (Recall this 10/09/23 field) -Photo Taken Yes -Epithelialization None Present -Tunneling -Tunneling Position (O'clock) -Tunneling Distance (cm) -Undermining/Tunneling -Undermining/Tunneling Starts (O'clock ) -Undermining/Tunneling Ends (O'clock) -Maximum Distance #2 (cm) -Circular Undermining Yes -Exudate Amt None Present -Exudate Type -Wound Margin Thickened -Granulation Amt Small (1-33%) -Granulation [place] -Slough/Fibrin Yes -Necrosis Amt Medium (34-66%) -Necrotic Tissue Type Adherent Slough -Structure Exposed None/Limited to Skin Breakdown -Texture (Yu-wound Skin Appearance) Callus -Moisture (Yu-wound Skin Appearance) Maceration -Color (Yu-wound Skin Appearance) No Abnormality -Temperature (Yu-wound Skin No Abnormality Appearance) (Pt Warm) -Tenderness on Palpation (Yu-wound Skin Appearance) -Ulcer Cleansing Soap and Water -Foul Odor after Cleansing No -Anesthetic Used 5% Lidocaine Gel Lower Limb Edema Present WC - Nurse 2 - General Ulcer CM Notes Start: 09/18/23 09:34 Freq: Status: Active Protocol: Activity Type Activity Date Activity User E-sign Co-sign Detail Recorded Client Recorded Date Recorded By Document 09/18/23 09:51 BMF Desktop 09/18/23 09:55 BMF Edit Result 09/18/23 09:51 BMF (1) [id number] 09/18/23 13:36 BMF Edit Result 09/18/23 09:51 BMF (2) [id number] 09/22/23 15:10 BMF Edit Result 09/18/23 09:51 BMF (3) Laptop 09/22/23 15:35 JF Document 09/25/23 09:30 BMF Desktop 09/25/23 09:41 BMF Document 10/02/23 10:33 BMF Desktop 10/02/23 10:39 BMF Document 10/09/23 10:09 BMF Desktop 10/09/23 10:18 BMF (1) #4 Lateral Right Plantar Foot - Debridement - Subq, 1st 20sq cm Yes => No (2) #4 Lateral Right Plantar Foot - Epifix 18mm Disc 3 => 1 (3) #4 Lateral Right Plantar Foot - Epifix 18mm Disc 1 => 3 09/18/23 09/25/23 10/02/23 09:51 09:30 10:33 Wound Center Nurse 2 #4 Lateral Right Plantar Foot -Time 09:51 09:30 10:34 -Correct Patient Yes Yes Yes -Correct Side, Site, Position Yes Yes Yes -Correct Procedure Yes Yes Yes -Procedure Performed Yes Yes Yes -Type of Procedure Debridement Debridement Debridement -Clinical Debridement Subcutaneous Subcutaneous Subcutaneous -Tissue Removed Subcutaneous Subcutaneous Subcutaneous -Post Debridement (cm) - Length 0.5 2.6 1 -Post Debridement (cm) - Width 0.3 0.5 1 -Post Debridement (cm) - Depth 0.1 0.1 0.1 -Total Square (Post) (cm) 0.15 1.30 1 -Area of Debridement (cm) - Length 0.5 2.6 1 -Area of Debridement (cm) - Width 0.3 0.5 1 -Total Square (Area) (cm) 0.15 1.30 1 -Tunneling No No No -Undermining/Tunneling No No No -Circular Undermining No No No -Wound/Ulcer Outcome Not Healed Not Healed Not Healed -Ulcer Cleansing Rinsed/ Rinsed/ Rinsed/ Irrigated with Irrigated with Irrigated with Saline Saline Saline -Foul Odor after Cleansing No No No -Bioengineered Tissue Yes No -Type of Bioengineered Tissue Epifix 18mm Epifix 18mm Epifix 18mm Disc Disc Disc -Expiration Date 05/14/28 05/14/28 05/14/28 -Product Lot Number [id number] -Percent Used 100 100 100 -Lot number of Saline Used [id number] -Bleeding Controlled with Pressure Pressure Silver Nitrate -Treatment Response Procedure Procedure Procedure Tolerated Well Tolerated Well Tolerated Well -Offloading Yes -Type of Offloading Surgical Shoe Darco Shoe - Darco Shoe - Right Right -Other Type of Offloading CUTOUTS -Debridement - Subq, 1st 20sq cm No No No -Apply Skin Sub - 1st 25 sq cm - Feet 1 1 1 -Epifix 18mm Disc 3 3 3 Pain Scale: 0-10 Numeric Is Patient Pain Free? Yes Yes Yes 10/09/23 10:09 Wound Center Nurse 2 #4 Lateral Right Plantar Foot -Time 10:09 -Correct Patient Yes -Correct Side, Site, Position Yes -Correct Procedure Yes -Procedure Performed Yes -Type of Procedure Debridement -Clinical Debridement Subcutaneous -Tissue Removed Subcutaneous -Post Debridement (cm) - Length 0.4 -Post Debridement (cm) - Width 0.5 -Post Debridement (cm) - Depth 0.1 -Total Square (Post) (cm) 0.20 -Area of Debridement (cm) - Length 0.4 -Area of Debridement (cm) - Width 0.5 -Total Square (Area) (cm) 0.20 -Tunneling No -Undermining/Tunneling No -Circular Undermining No -Wound/Ulcer Outcome Not Healed -Ulcer Cleansing Rinsed/ Irrigated with Saline -Foul Odor after Cleansing No -Bioengineered Tissue Yes -Type of Bioengineered Tissue Epifix 18mm Disc -Expiration Date 05/14/28 -Product Lot Number [id number] -Percent Used 100 -Lot number of Saline Used [id number] -Bleeding Controlled with Pressure -Treatment Response Procedure Tolerated Well -Offloading Yes -Type of Offloading Darco Shoe - Right -Other Type of Offloading -Debridement - Subq, 1st 20sq cm No -Apply Skin Sub - 1st 25 sq cm - Feet 1 -Epifix 18mm Disc 3 Pain Scale: 0-10 Numeric Is Patient Pain Free? Yes - Nurse 3 - General Ulcer D/C NN Start: 09/18/23 09:34 Freq: Status: Active Protocol: Activity Type Activity Date Activity User E-sign Co-sign Detail Recorded Client Recorded Date Recorded By Document 09/18/23 10:03 DL Desktop 09/18/23 10:04 DL Document 09/25/23 09:55 KW Desktop 09/25/23 09:58 KW Document 10/02/23 10:48 DL Desktop 10/02/23 10:50 DL Document 10/09/23 10:21 KW Desktop 10/09/23 10:24 KW 09/18/23 09/25/23 10/02/23 10:03 09:55 10:48 [facility] Nurse 3 #4 Lateral Right Plantar Foot -Foul Odor after Cleansing No No -Other Dressing Epifix epifix -Primary Dressing Covered/Secured with Dry Gauze & Dry Gauze & Dry Gauze & Roll Gauze, Roll Gauze, Roll Gauze Secured with Secured with Tape Tape -Other Covering ABD Treatment Response Procedure Procedure Tolerated Well Tolerated Well Pain Scale: 0-10 Numeric Is Patient Pain Free? Yes Yes Yes - Visit Discharge Discharge Condition Stable Stable Stable Ambulatory Status Ambulatory Ambulatory Ambulatory Transportation Private Auto Private Auto Private Auto Medication Reconcilliation completed & provided to patient/care provider Clinical Summary of Care Provided 10/09/23 10:21 W[facility] Care Center Nurse 3 #4 Lateral Right Plantar Foot -Foul Odor after Cleansing -Other Dressing -Primary Dressing Covered/Secured with Dry Gauze & Roll Gauze, Secured with Tape -Other Covering Treatment Response Pain Scale: 0-10 Numeric Is Patient Pain Free? Yes WC - Visit Discharge Discharge Condition Stable Ambulatory Status Ambulatory Transportation Private Auto Medication Reconcilliation completed & No provided to patient/care provider Clinical Summary of Care Provided Yes Assessment/Plan Assessment/Plan (1) Ulcer of right foot with fat layer exposed: CODE(S): L97.512 - Non-pressure chronic ulcer of other 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 Ulceration measures 0.4 cm x 0.5 cm x 0.1 cm. EpiFixgraft #10 applied to the wound bed and dressed with Adaptic touch and anchored with Steri-Strips. Dry sterile dressing applied to the right foot. He is instructed to change outer dressings as needed. He is instructed to keep the dressings clean, dry, and intact and to not get the site wet. He was advised toutilize cast bag when showering to keep the dressings dry. Ulceration demonstrates decrease in size versus previous visit He was given work note for time off to allow him to remain off of the wound siteto allow healing at previous visit and this is aiding in his improvement for healing with continued reduction in ulcerative size versus previous visit. Recommended continued offloading in CAM boot to the right foot with plantar offloading padding. Surgical shoe also offloaded so that he may wear this when getting up to go to the bathroom at night. Otherwise will remain in CAM boot with plantar offloading padding. Discussed proper diabetic diet and tight glycemic control to continue to aid in healing of his ulceration. Discussed adequate protein intake to continue to aid in wound healing. Bhaskar supplementation also recommended to aid in wound healing. Discussed signs of infection today. He was instructed if he notices increasing redness about the ulcerative site that moves up onto the foot or up his leg, if he notices purulent drainage from the wound site, if he notices increasing foul odor from the wound, or if he develops fever greater than 101 degree, or nausea,or vomiting, or chills, that these are signs of a progressing infection and he should report to the ED to receive IV antibiotics. He voices understanding of this. The following work up and care recommendations were made: Dressing: EpiFix graft, Adaptic touch, Steri-Strips, dry sterile dressing. Do not get wet. May change outer dressing as needed Wash: Do not get wet Tissue growth optimization: EpiFix Offload: Plantar offloading padding and CAM boot right foot Vascular: DP and PT pulses Palpable with adequate capillary fill time. Do not feel vascular status is impacting wound healing. Edema: No signs of pedal edema Infection: No signs of infection Pain: No pain secondary to diabetic peripheral polyneuropathy Host factors: DM type I with peripheral polyneuropathy, patient's himself as iatrogenic cause to ulcer, pressure I answered all the patient's questions. To return to the wound healing center in 2 weeks or call sooner if the patient has any questions or concerns. 10/09/23 1028 <Electronically signed by George Ambrocio DPM> Cosigner Signature (if applicable): CC: ~ Signed [facility] Work Phone: 1(155) 141-558303-21-2024 Progress note Author George Ambrocio [facility] October 02, 2023 1:01pm Note Date/Time October 02, 2023 10: 07am [facility] [address] [place] [address] Progress Note - Wound Care 10/02/23 1006 MR#: [id number] Acct: [id number] Name: TEZKHOIDAMIONTREVON S Rep #:[id number] : 1985 38 From: George martinez DPM PCP: Dr. Magdiel Hurst MD Status:R EG RCR Location: History of Present Illness Date of Service: 10/02/23 Chief Complaint: right plantar foot ulcer and right leg ulcer History of Wound: This 38-year-old diabetic male presents to the wound healing center for a subfourth metatarsal ulceration of the right foot. 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 He states he tried to care for the ulceration for roughly 2 to 3 weeks in which it was not healing and presented to office. In office he did undergo debridement of the site continued offloading in cam boot however did not obtain his dressing supplies and was performing daily changes of wet to dry gauze. He was referred to the wound care center for applications of advanced wound care product. He states no pain secondary to diabetic peripheral polyneuropathy. He denies N/V/F/chills. He denies further complaints. Subjective Subjective This is a 38-year-old male who presents to the wound care center for follow-up of a plantar fourth metatarsal ulceration of the right foot. He is continued offloading site in CAM boot and surgical shoe with plantar offloading padding. He has left grafting product in place to the wound bed and is changing outer dressing as needed. He states he has taken time off again from work and feels that the foot is improving as he is now staying off of it more. He denies constitutional symptoms. Denies further complaints. Objective Data Objective Data Vital Signs: Vital Signs Temp Pulse Resp BP O2 Del Method 97.5 F L 99 20 H 117/65 Room Air 10/02/23 09:54 10/02/23 09:54 10/02/23 09:54 10/02/23 09:54 09/25/23 09:17 Oxygen Delivery Method Room Air Weight: 120.202 kg Body Mass Index (BMI) 35.9 Physical Exam Const alert, oriented x3 and no apparent distress General Appearance: cooperative HEENT normocephalic Eyes General Eye: normal appearance of both eyes Neck General: normal visual inspection Lymph Lymphatic: no lymphadenopathy noted and no lymphedema noted Resp normal respiratory effort Cardio regular rate and regular rhythm Extremity normal capillary refill, no joint enlargement, no calf tenderness and no pedal edema Extremity Narrative: DP and PT pulses palpable right foot. Capillary fill time less than 4 seconds to digits right foot. No pedal edema is noted. Dermatological: Skin is mildly xerotic to the plantar aspect. There is a ulceration subfourth metatarsal head with surrounding hyperkeratotic tissue and healthy appearing granular layer. There is scant serosanguineous drainage. No erythema, no purulent drainage, no malodor, no palpable fluctuance/bogginess noted, no visible abscess formation, no lymphangitic streaking. Musculoskeletal: Muscle strength 5 of 5 age-appropriate. Partial fifth ray amputation is noted to the right foot. Decreased range of motion of the ankle joint in dorsiflexion with the knee extended without pain or crepitus. Decreased range of motion of the first metatarsophalangeal joint without pain orcrepitus. Skin no rashes or lesions noted, skin turgor normal and no jaundice Neuro moves all extremities Debridement Note Debridement Note Wound debrided: Subfourth metatarsal head right foot Laterality: Right Wound Grade/Stage: Reynoso stage I Type of Debridement: Excisional debridement Anesthesia Used: 5% Lidocaine Gel Depth: Down to and including healthy tissue and in the subcutaneous layer Percentage of wound debrided: 100 Instrument Used: 3mm curette and #15 blade Tissue Removed: Fibrous, devitalized subcutaneous, biofilm, slough Severity: Fat Layer Exposed Amount of bleeding with debridement: Mild Bleeding Controlled with: Compression and gauze Patient tolerated procedure: Patient tolerated procedure well Post-Debridement Measurements and Additional Note: Post-Debridement Measurements/Treatment - Nurse 1 - General Ulcer Assessment Start: 09/18/23 09:34 Freq: Status: Active Protocol: [email or web address] Activity Type Activity Date Activity User E-sign Co-sign Detail Recorded Client Recorded Date Recorded By Document 09/18/23 09:35 DL Desktop 09/18/23 09:43 DL Edit Result 09/18/23 09:35 DL (1) Desktop 09/18/23 09:45 DL Document 09/25/23 09:17 MT Desktop 09/25/23 09:23 MT Document 10/02/23 09:54 DL Desktop 10/02/23 10:03 DL (1) Blood Pressure (90/60-120/80) 117/93 H => 136/84 H 09/18/23 09/25/23 10/02/23 09:35 09:17 09:54 WC - Today's Visit Information Type of service Follow-up Visit Follow-up Visit Follow-up Visit (Physician/ACADEMIC REGISTRAR (Physician/ACADEMIC REGISTRAR (Physician/ACADEMIC REGISTRAR ) ) ) Arrival Mode Ambulatory Ambulatory Ambulatory Transfer Assistance None None Patient Identification Verified (Name & Yes Yes Yes ) Patient Requires Transmission-Based No No Precautions Finger Stick Blood Sugar(mg/dl) (if 155 124 96 indicated): Blood Sugar Stated by Stated by Stated by Patient Patient Patient Height and Weight Body Mass Index (BMI) 35.9 35.9 35.9 BMI Classification Obese Obese Obese Vital Signs Temperature (97.8 F-99.1 F) 97.9 F 98 F 97.5 F L Temperature Source Temporal Temporal Temporal Pulse Rate (60-100) 103 H 87 99 Pulse Location Monitor Monitor Monitor Respiratory Rate (12-18) 20 H 18 20 H Respiratory rate source Observation Observation Observation Oxygen Delivery Method Room Air Blood Pressure (90/60-120/80) 136/84 H 115/76 117/65 Blood Pressure Mean (mm Hg) 101 89 82 Source Monitor Monitor Monitor Position Sitting Blood Pressure Location Left Arm History Since Last Visit- (Skip if this is Patient's initial visit) Have you changed medications since your No No last visit? Any new allergies or adverse reactions No No Had a fall/change in ADL's that may No No increase risk of falls Signs or symptoms of abuse and/or No No neglect since last visit Have you been in the hospital since your No No last visit? Has dressing in place as prescribed Yes Yes Has compression in place as prescribed N/A N/A N/A Has offloadiing in place as prescribed Yes N/A Yes Experienced any changes in pain level or No management Left Footwear Regular Shoe Right Footwear Surgical Shoe Diabetic Shoe with pressure relief insole Pain Scale: 0-10 Numeric Is Patient Pain Free? Yes Yes Yes - Nurse 1 - General Ulcer Measurement Start: 09/18/23 09:34 Freq: Status: Active Protocol: Activity Type Activity Date Activity User E-sign Co-sign Detail Recorded Client Recorded Date Recorded By Document 09/18/23 09:35 DL Desktop 09/18/23 09:43 DL Document 09/25/23 09:17 MT Desktop 09/25/23 09:23 MT Document 10/02/23 09:54 DL Desktop 10/02/23 10:03 DL 09/18/23 09/25/23 10/02/23 09:35 09:17 09:54 Wound Center Nurse 1 #4 Lateral Right Plantar Foot -Current Size (cm) - Length 0.5 0.5 0.2 -Current Size (cm) - Width 0.6 0.5 0.3 -Current Size (cm) - Depth 0.4 0.3 0.1 -Total Square Cm 0.30 0.25 0.06 -Photo Taken Yes -Tunneling Yes -Tunneling Position (O'clock) 4 -Tunneling Distance (cm) 2.8 -Undermining/Tunneling Yes -Undermining/Tunneling Starts (O'clock 12 ) -Undermining/Tunneling Ends (O'clock) 12 -Maximum Distance #2 (cm) 0.2 -Circular Undermining Yes -Exudate Amt Small Medium None Present -Exudate Type Serosanguineous Serosanguineous -Wound Margin Distinct, Thickened & Thickened Outline Rolled Under Attached -Granulation Amt Small (1-33%) Small (1-33%) -Granulation [place] -Necrosis Amt Small (1-33%) Large (67-100%) None Present (0 %) -Necrotic Tissue Type Adherent Slough Adherent Slough -Structure Exposed N/A -Texture (Yu-wound Skin Appearance) Scarring Assessed,Callus Callus -Moisture (Yu-wound Skin Appearance) Dry/Scaly Assessed Dry/Scaly -Color (Yu-wound Skin Appearance) No Abnormality Assessed No Abnormality -Temperature (Yu-wound Skin No Abnormality No Abnormality No Abnormality Appearance) (Pt Warm) (Pt Warm) (Pt Warm) -Tenderness on Palpation (Yu-wound No Skin Appearance) -Ulcer Cleansing Soap and Water Soap and Water Soap and Water -Foul Odor after Cleansing No No No -Anesthetic Used 5% Lidocaine 5% Lidocaine Gel Gel Lower Limb Edema Present NA WC - Nurse 2 - General Ulcer CM Notes Start: 09/18/23 09:34 Freq: Status: Active Protocol: Activity Type Activity Date Activity User E-sign Co-sign Detail Recorded Client Recorded Date Recorded By Document 09/18/23 09:51 BMF Desktop 09/18/23 09:55 BMF Edit Result 09/18/23 09:51 BMF (1) [id number] 09/18/23 13:36 BMF Edit Result 09/18/23 09:51 BMF (2) [id number] 09/22/23 15:10 BMF Edit Result 09/18/23 09:51 BMF (3) Laptop 09/22/23 15:35 JF Document 09/25/23 09:30 BMF Desktop 09/25/23 09:41 BMF (1) #4 Lateral Right Plantar Foot - Debridement - Subq, 1st 20sq cm Yes => No (2) #4 Lateral Right Plantar Foot - Epifix 18mm Disc 3 => 1 (3) #4 Lateral Right Plantar Foot - Epifix 18mm Disc 1 => 3 09/18/23 09/25/23 09:51 09:30 Wound Center Nurse 2 #4 Lateral Right Plantar Foot -Time 09:51 09:30 -Correct Patient Yes Yes -Correct Side, Site, Position Yes Yes -Correct Procedure Yes Yes -Procedure Performed Yes Yes -Type of Procedure Debridement Debridement -Clinical Debridement Subcutaneous Subcutaneous -Tissue Removed Subcutaneous Subcutaneous -Post Debridement (cm) - Length 0.5 2.6 -Post Debridement (cm) - Width 0.3 0.5 -Post Debridement (cm) - Depth 0.1 0.1 -Total Square (Post) (cm) 0.15 1.30 -Area of Debridement (cm) - Length 0.5 2.6 -Area of Debridement (cm) - Width 0.3 0.5 -Total Square (Area) (cm) 0.15 1.30 -Tunneling No No -Undermining/Tunneling No No -Circular Undermining No No -Wound/Ulcer Outcome Not Healed Not Healed -Ulcer Cleansing Rinsed/ Rinsed/ Irrigated with Irrigated with Saline Saline -Foul Odor after Cleansing No No -Bioengineered Tissue Yes No -Type of Bioengineered Tissue Epifix 18mm Epifix 18mm Disc Disc -Expiration Date 05/14/28 05/14/28 -Product Lot Number [id number] -Percent Used 100 100 -Lot number of Saline Used [id number] -Bleeding Controlled with Pressure Pressure -Treatment Response Procedure Procedure Tolerated Well Tolerated Well -Offloading Yes -Type of Offloading Surgical Shoe Darco Shoe - Right -Other Type of Offloading CUTOUTS -Debridement - Subq, 1st 20sq cm No No -Apply Skin Sub - 1st 25 sq cm - Feet 1 1 -Epifix 18mm Disc 3 3 Pain Scale: 0-10 Numeric Is Patient Pain Free? Yes Yes - Nurse 3 - General Ulcer D/C NN Start: 09/18/23 09:34 Freq: Status: Active Protocol: Activity Type Activity Date Activity User E-sign Co-sign Detail Recorded Client Recorded Date Recorded By Document 09/18/23 10:03 DL Desktop 09/18/23 10:04 DL Document 09/25/23 09:55 KW Desktop 09/25/23 09:58 KW 09/18/23 09/25/23 10:03 09:55 Wound Care Center Nurse 3 #4 Lateral Right Plantar Foot -Foul Odor after Cleansing No -Other Dressing Epifix -Primary Dressing Covered/Secured with Dry Gauze & Dry Gauze & Roll Gauze, Roll Gauze, Secured with Secured with Tape Tape -Other Covering ABD Treatment Response Procedure Tolerated Well Pain Scale: 0-10 Numeric Is Patient Pain Free? Yes Yes - Visit Discharge Discharge Condition Stable Stable Ambulatory Status Ambulatory Ambulatory Transportation Private Auto Private Auto Assessment/Plan Assessment/Plan (1) Ulcer of right foot with fat layer exposed: CODE(S): L97.512 - Non-pressure chronic ulcer of other 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 Ulceration measures 1.0 cm x 1.0 cm x 0.1 cm. EpiFixgraft #9 applied to the wound bed and dressed with Adaptic touch and anchored with Steri-Strips. Dry sterile dressing applied to the right foot. He is instructed to change outer dressings as needed. He is instructed to keep the dressings clean, dry, and intact and to not get the site wet. He was advised toutilize cast bag when showering to keep the dressings dry. Ulceration demonstrates decrease in size versus previous visit He was given work note for time off to allow him to remain off of the wound siteto allow healing at previous visit and this is aiding in his improvement for healing. Recommended continued offloading in CAM boot to the right foot with plantar offloading padding. Surgical shoe also offloaded so that he may wear this when getting up to go to the bathroom at night. Otherwise will remain in CAM boot with plantar offloading padding. Discussed proper diabetic diet and tight glycemic control to continue to aid in healing of his ulceration. Discussed adequate protein intake to continue to aid in wound healing. Bhaskar supplementation also recommended to aid in wound healing. Discussed signs of infection today. He was instructed if he notices increasing redness about the ulcerative site that moves up onto the foot or up his leg, if he notices purulent drainage from the wound site, if he notices increasing foul odor from the wound, or if he develops fever greater than 101 degree, or nausea,or vomiting, or chills, that these are signs of a progressing infection and he should report to the ED to receive IV antibiotics. He voices understanding of this. The following work up and care recommendations were made: Dressing: EpiFix graft, Adaptic touch, Steri-Strips, dry sterile dressing. Do not get wet. May change outer dressing as needed Wash: Do not get wet Tissue growth optimization: EpiFix Offload: Plantar offloading padding and CAM boot right foot Vascular: DP and PT pulses Palpable with adequate capillary fill time. Do not feel vascular status is impacting wound healing. Edema: No signs of pedal edema Infection: No signs of infection Pain: No pain secondary to diabetic peripheral polyneuropathy Host factors: DM type I with peripheral polyneuropathy, patient's himself as iatrogenic cause to ulcer, pressure I answered all the patient's questions. To return to the wound healing center in 1 week or call sooner if the patient has any questions or concerns. 10/02/23 1301 <Electronically signed by George Ambrocio DPM> Cosigner Signature (if applicable): CC: ~ Signed [facility] Work Phone: 1(178) 301-797603-14-2024 Miscellaneous Notes* Telephone Encounter - Sanaz Haywood MA - 09/25/2023 3:13 PM EDT Pt has appt tomorrow 09/26/23 * Telephone Encounter - Darcy Orona OCCA - 09/24/2023 8:20 AM EDT TC to patient with no answer. Unable to leave VM as line rings and rings. Please try again later. RICKY Trujillo * Telephone Encounter - Sanaz Jacobs APRN.CNP - 09/24/2023 7:46 AM EDT It looks like Dr. Clement has already checked routine labs in May 2023, not due for any other labs at this time Sanaz Jacobs APRN.ACADEMIC REGISTRAR * Telephone Encounter - Erica Mayorga LPN - 09/23/2023 3:51 PM EDT Patient is scheduled for an appt, 10/06/2023, asking if he needs to have labs done prior to his appt. Erica Mayorga LPN [facility] Progress note Author George Ambrocio [facility] September 25, 2023 12:46pm Note Date/Time September 25, 2023 9:1 8am [facility] [address] [place] [address] Progress Note - Wound Care 09/25/23 0917 MR#: [id number] Acct: [id number] Name: TREVON RAMAN Rep #:[id number] : 1985 38 From: George martinez DPM PCP: Dr. Magdiel Hurst MD Status:R EG RCR Location: History of Present Illness Date of Service: 09/25/23 Chief Complaint: right plantar foot ulcer and right leg ulcer History of Wound: This 38-year-old diabetic male presents to the wound healing center for a subfourth metatarsal ulceration of the right foot. 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 He states he tried to care for the ulceration for roughly 2 to 3 weeks in which it was not healing and presented to office. In office he did undergo debridement of the site continued offloading in cam boot however did not obtain his dressing supplies and was performing daily changes of wet to dry gauze. He was referred to the wound care center for applications of advanced wound care product. He states no pain secondary to diabetic peripheral polyneuropathy. He denies N/V/F/chills. He denies further complaints. Subjective Subjective This is a 38-year-old male who presents to the wound care center for follow-up of a plantar fourth metatarsal ulceration of the right foot. He is continued offloading site in CAM boot and surgical shoe with plantar offloading padding. He has left grafting product in place to the wound bed and is changing outer dressing as needed. 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 He denies constitutional symptoms. Denies further complaints. Objective Data Objective Data Vital Signs: Vital Signs Temp Pulse Resp BP 97.9 F 103 H 20 H 136/84 H 09/18/23 09:35 09/18/23 09:35 09/18/23 09:35 09/18/23 09:35 Weight: 120.202 kg Body Mass Index (BMI) 35.9 Physical Exam Const alert, oriented x3 and no apparent distress General Appearance: cooperative HEENT normocephalic Eyes General Eye: normal appearance of both eyes Neck General: normal visual inspection Lymph Lymphatic: no lymphadenopathy noted and no lymphedema noted Resp normal respiratory effort Cardio regular rate and regular rhythm Extremity normal capillary refill, no joint enlargement, no calf tenderness and no pedal edema Extremity Narrative: DP and PT pulses palpable right foot. Capillary fill time less than 4 seconds to digits right foot. No pedal edema is noted. Dermatological: Skin is mildly xerotic to the plantar aspect. There is a ulceration subfourth metatarsal head with surrounding hyperkeratotic tissue and healthy appearing granular layer. There is scant serosanguineous drainage. No erythema, no purulent drainage, no malodor, no palpable fluctuance/bogginess noted, no visible abscess formation, no lymphangitic streaking. Musculoskeletal: Muscle strength 5 of 5 age-appropriate. Partial fifth ray amputation is noted to the right foot. Decreased range of motion of the ankle joint in dorsiflexion with the knee extended without pain or crepitus. Decreased range of motion of the first metatarsophalangeal joint without pain orcrepitus. Skin no rashes or lesions noted, skin turgor normal and no jaundice Neuro moves all extremities Debridement Note Debridement Note Wound debrided: Subfourth metatarsal head right foot Laterality: Right Wound Grade/Stage: Reynoso stage I Type of Debridement: Excisional debridement Anesthesia Used: 5% Lidocaine Gel Depth: Down to and including healthy tissue and in the subcutaneous layer Percentage of wound debrided: 100 Instrument Used: 5mm curette, #15 blade and Forceps Tissue Removed: Fibrous, devitalized subcutaneous, biofilm, slough Severity: Fat Layer Exposed Amount of bleeding with debridement: Mild Bleeding Controlled with: Compression and gauze Patient tolerated procedure: Patient tolerated procedure well Post-Debridement Measurements and Additional Note: Post-Debridement Measurements/Treatment RENETTA - Nurse 1 - General Ulcer Assessment Start: 09/18/23 09:34 Freq: Status: Active Protocol: LORI Activity Type Activity Date Activity User E-sign Co-sign Detail Recorded Client Recorded Date Recorded By Document 09/18/23 09:35 DL Desktop 09/18/23 09:43 DL Edit Result 09/18/23 09:35 DL (1) Desktop 09/18/23 09:45 DL (1) Blood Pressure (90/60-120/80) 117/93 H => 136/84 H 09/18/23 09:35 WC - Today's Visit Information Type of service Follow-up Visit (Physician/ACADEMIC REGISTRAR ) Arrival Mode Ambulatory Transfer Assistance None Patient Identification Verified (Name & Yes ) Patient Requires Transmission-Based No Precautions Finger Stick Blood Sugar(mg/dl) (if 155 indicated): Blood Sugar Stated by Patient Height and Weight Body Mass Index (BMI) 35.9 BMI Classification Obese Vital Signs Temperature (97.8 F-99.1 F) 97.9 F Temperature Source Temporal Pulse Rate (60-100) 103 H Pulse Location Monitor Respiratory Rate (12-18) 20 H Respiratory rate source Observation Blood Pressure (90/60-120/80) 136/84 H Blood Pressure Mean (mm Hg) 101 Source Monitor History Since Last Visit- (Skip if this is Patient's initial visit) Have you changed medications since your No last visit? Any new allergies or adverse reactions No Had a fall/change in ADL's that may No increase risk of falls Signs or symptoms of abuse and/or No neglect since last visit Have you been in the hospital since your No last visit? Has dressing in place as prescribed Yes Has compression in place as prescribed N/A Has offloadiing in place as prescribed Yes Right Footwear Surgical Shoe with pressure relief insole Pain Scale: 0-10 Numeric Is Patient Pain Free? Yes - Nurse 1 - General Ulcer Measurement Start: 09/18/23 09:34 Freq: Status: Active Protocol: Activity Type Activity Date Activity User E-sign Co-sign Detail Recorded Client Recorded Date Recorded By Document 09/18/23 09:35 DL Desktop 09/18/23 09:43 DL 09/18/23 09:35 Wound Center Nurse 1 #4 Lateral Right Plantar Foot -Current Size (cm) - Length 0.5 -Current Size (cm) - Width 0.6 -Current Size (cm) - Depth 0.4 -Total Square Cm 0.30 -Maximum Distance #2 (cm) 0.2 -Circular Undermining Yes -Exudate Amt Small -Exudate Type Serosanguineous -Wound Margin Distinct, Outline Attached -Granulation Amt Small (1-33%) -Granulation [place] -Necrosis Amt Small (1-33%) -Necrotic Tissue Type Adherent Slough -Structure Exposed N/A -Texture (Yu-wound Skin Appearance) Scarring -Moisture (Yu-wound Skin Appearance) Dry/Scaly -Color (Yu-wound Skin Appearance) No Abnormality -Temperature (Yu-wound Skin No Abnormality Appearance) (Pt Warm) -Ulcer Cleansing Soap and Water -Foul Odor after Cleansing No WC - Nurse 2 - General Ulcer CM Notes Start: 09/18/23 09:34 Freq: Status: Active Protocol: Activity Type Activity Date Activity User E-sign Co-sign Detail Recorded Client Recorded Date Recorded By Document 09/18/23 09:51 BMF Desktop 09/18/23 09:55 BMF Edit Result 09/18/23 09:51 BMF (1) [id number] 09/18/23 13:36 BMF Edit Result 09/18/23 09:51 BMF (2) [id number] 09/22/23 15:10 BMF Edit Result 09/18/23 09:51 BMF (3) Laptop 09/22/23 15:35 JF (1) #4 Lateral Right Plantar Foot - Debridement - Subq, 1st 20sq cm Yes => No (2) #4 Lateral Right Plantar Foot - Epifix 18mm Disc 3 => 1 (3) #4 Lateral Right Plantar Foot - Epifix 18mm Disc 1 => 3 09/18/23 09:51 Wound Center Nurse 2 -Time 09:51 -Correct Patient Yes -Correct Side, Site, Position Yes -Correct Procedure Yes -Procedure Performed Yes -Type of Procedure Debridement -Clinical Debridement Subcutaneous -Tissue Removed Subcutaneous -Post Debridement (cm) - Length 0.5 -Post Debridement (cm) - Width 0.3 -Post Debridement (cm) - Depth 0.1 -Total Square (Post) (cm) 0.15 -Area of Debridement (cm) - Length 0.5 -Area of Debridement (cm) - Width 0.3 -Total Square (Area) (cm) 0.15 -Tunneling No -Undermining/Tunneling No -Circular Undermining No -Wound/Ulcer Outcome Not Healed -Ulcer Cleansing Rinsed/ Irrigated with Saline -Foul Odor after Cleansing No -Bioengineered Tissue Yes -Type of Bioengineered Tissue Epifix 18mm Disc -Expiration Date 05/14/28 -Product Lot Number [id number] -Percent Used 100 -Lot number of Saline Used [id number] -Bleeding Controlled with Pressure -Treatment Response Procedure Tolerated Well -Offloading Yes -Type of Offloading Surgical Shoe -Other Type of Offloading CUTOUTS -Debridement - Subq, 1st 20sq cm No -Apply Skin Sub - 1st 25 sq cm - Feet 1 -Epifix 18mm Disc 3 Pain Scale: 0-10 Numeric Is Patient Pain Free? Yes - Nurse 3 - General Ulcer D/C NN Start: 09/18/23 09:34 Freq: Status: Active Protocol: Activity Type Activity Date Activity User E-sign Co-sign Detail Recorded Client Recorded Date Recorded By Document 09/18/23 10:03 DL Desktop 09/18/23 10:04 DL 09/18/23 10:03 Wound Care Center Nurse 3 #4 Lateral Right Plantar Foot -Foul Odor after Cleansing No -Other Dressing Epifix -Primary Dressing Covered/Secured with Dry Gauze & Roll Gauze, Secured with Tape -Other Covering ABD Treatment Response Procedure Tolerated Well Pain Scale: 0-10 Numeric Is Patient Pain Free? 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 Ulceration measures 2.5 cm x 1.5 cm x 0.2 cm. EpiFixgraft #8 applied to the wound bed and dressed with Adaptic touch and anchored with Steri-Strips. Dry sterile dressing applied to the right foot. He is instructed to change outer dressings as needed. He is instructed to keep the dressings clean, dry, and intact and to not get the site wet. He was advised toutilize cast bag when showering to keep the dressings dry. Ulceration demonstrates increase in size versus previous visit secondary to his return to work and standing for long periods of time with new blister formation about wound and inability to change dressings at work. Discussed giving patient work note for time off to allow him to remain off of the wound site to allow healing. Recommended continued offloading in CAM boot to the right foot with plantar offloading padding. Surgical shoe also offloaded so that he may wear this when getting up to go to the bathroom at night. Otherwise will remain in CAM boot with plantar offloading padding. Discussed proper diabetic diet and tight glycemic control to continue to aid in healing of his ulceration. Discussed adequate protein intake to continue to aid in wound healing. Bhaskar supplementation also recommended to aid in wound healing. Discussed signs of infection today. He was instructed if he notices increasing redness about the ulcerative site that moves up onto the foot or up his leg, if he notices purulent drainage from the wound site, if he notices increasing foul odor from the wound, or if he develops fever greater than 101 degree, or nausea,or vomiting, or chills, that these are signs of a progressing infection and he should report to the ED to receive IV antibiotics. He voices understanding of this. The following work up and care recommendations were made: Dressing: EpiFix graft, Adaptic touch, Steri-Strips, dry sterile dressing. Do not get wet. May change outer dressing as needed Wash: Do not get wet Tissue growth optimization: EpiFix Offload: Plantar offloading padding and CAM boot right foot Vascular: DP and PT pulses Palpable with adequate capillary fill time. Do not feel vascular status is impacting wound healing. Edema: No signs of pedal edema Infection: No signs of infection Pain: No pain secondary to diabetic peripheral polyneuropathy Host factors: DM type I with peripheral polyneuropathy, patient's himself as iatrogenic cause to ulcer, pressure I answered all the patient's questions. To return to the wound healing center in 1 week or call sooner if the patient has any questions or concerns. 09/25/23 [id number] <Electronically signed by George Ambrocio DPM> Agueda Signature (if applicable): CC: ~ Signed [facility] Work Phone: [phone]) 152-825403-12-2024 History of Present illness Narrative* Erica Mayorga LPN - 09/23/2023 3:43 PM EDT POPULATION HEALTH NAVIGATION OUTREACH Action/FYI Reason for Outreach Care Gap/HCC or Scheduling Wellness Visits Care Gaps due: Follow-up Appointment Patient Contacted: Spoke to patient/parent/or legal guardian Patient identified by name and : Yes Care Gap/HCC/Scheduling Wellness actions taken: Patient scheduled/pended labs: Follow-up Appointment Navigation Signature: Erica Mayorga LPN September 23, 2023 3:43 PM [facility] Progress note Author George Ambrocio [facility] September 18, 2023 7:56pm Note Date/Time September 18, 2023 9:44 am [facility] [address] [place] [address] Progress Note - Wound Care 09/18/23 0942 MR#: [id number] Acct: [id number] Name: TREVON RAMAN Rep #:[id number] : 1985 38 From: George martinez DPM PCP: Dr[facility] Magdiel Hurst MD [facility] Location: History of Present Illness Date of Service: 09/18/23 Chief Complaint: right plantar foot ulcer and right leg ulcer History of Wound: This 38-year-old diabetic male presents to the wound healing center for a subfourth metatarsal ulceration of the right foot. 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 He states he tried to care for the ulceration for roughly 2 to 3 weeks in which it was not healing and presented to office. In office he did undergo debridement of the site continued offloading in cam boot however did not obtain his dressing supplies and was performing daily changes of wet to dry gauze. He was referred to the wound care center for applications of advanced wound care product. He states no pain secondary to diabetic peripheral polyneuropathy. He denies N/V/F/chills. He denies further complaints. Subjective Subjective This is a 38-year-old male who presents to the wound care center for follow-up of a plantar fourth metatarsal ulceration of the right foot. He is continued offloading site in CAM boot and surgical shoe with plantar offloading padding. He has left grafting product in place to the wound bed and is changing outer dressing as needed. He feels the wound is getting smaller. He denies constitutional symptoms. Denies further complaints. Objective Data Objective Data Vital Signs: Vital Signs Temp Pulse Resp BP 96.5 F L 92 18 140/97 H 09/12/23 00:30 09/12/23 00:30 09/12/23 00:30 09/12/23 00:30 Weight: 120.202 kg Body Mass Index (BMI) 35.9 Physical Exam Const alert, oriented x3 and no apparent distress General Appearance: cooperative HEENT normocephalic Eyes General Eye: normal appearance of both eyes Neck General: normal visual inspection Lymph Lymphatic: no lymphadenopathy noted and no lymphedema noted Resp normal respiratory effort Cardio regular rate and regular rhythm Extremity normal capillary refill, no joint enlargement, no calf tenderness and no pedal edema Extremity Narrative: DP and PT pulses palpable right foot. Capillary fill time less than 4 seconds to digits right foot. No pedal edema is noted. Dermatological: Skin is mildly xerotic to the plantar aspect. There is a ulceration subfourth metatarsal head with surrounding hyperkeratotic tissue and healthy appearing granular layer. There is scant serosanguineous drainage. No erythema, no purulent drainage, no malodor, no palpable fluctuance/bogginess noted, no visible abscess formation, no lymphangitic streaking. Musculoskeletal: Muscle strength 5 of 5 age-appropriate. Partial fifth ray amputation is noted to the right foot. Decreased range of motion of the ankle joint in dorsiflexion with the knee extended without pain or crepitus. Decreased range of motion of the first metatarsophalangeal joint without pain orcrepitus. Skin no rashes or lesions noted, skin turgor normal and no jaundice Neuro moves all extremities Debridement Note Debridement Note Wound debrided: Subfourth metatarsal head right foot Laterality: Right Wound Grade/Stage: Reynoso stage I Type of Debridement: Excisional debridement Anesthesia Used: 5% Lidocaine Gel Depth: Down to and including healthy tissue and in the subcutaneous layer Percentage of wound debrided: 100 Instrument Used: 3mm curette Tissue Removed: Fibrous, devitalized subcutaneous, biofilm, slough Severity: Fat Layer Exposed Amount of bleeding with debridement: Mild Bleeding Controlled with: Compression and gauze Patient tolerated procedure: Patient tolerated procedure well Assessment/Plan Assessment/Plan (1) Ulcer of right foot with fat layer exposed: CODE(S): L97.512 - Non-pressure chronic ulcer of other 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 Ulceration measures 0.5 cm x 0.3 cm x 0.2 cm. EpiFixgraft #7 applied to the wound bed and dressed with Adaptic touch and anchored with Steri-Strips. Dry sterile dressing applied to the right foot. He is instructed to change outer dressings as needed. He is instructed to keep the dressings clean, dry, and intact and to not get the site wet. He was advised toutilize cast bag when showering to keep the dressings dry. Ulceration demonstrates reduction in size versus previous visit Recommended continued offloading in CAM boot to the right foot with plantar offloading padding. Surgical shoe also offloaded so that he may wear this when getting up to go to the bathroom at night. Otherwise will remain in CAM boot with plantar offloading padding. Discussed proper diabetic diet and tight glycemic control to continue to aid in healing of his ulceration. Discussed adequate protein intake to continue to aid in wound healing. Bhaskar supplementation also recommended to aid in wound healing. Discussed signs of infection today. He was instructed if he notices increasing redness about the ulcerative site that moves up onto the foot or up his leg, if he notices purulent drainage from the wound site, if he notices increasing foul odor from the wound, or if he develops fever greater than 101 degree, or nausea,or vomiting, or chills, that these are signs of a progressing infection and he should report to the ED to receive IV antibiotics. He voices understanding of this. The following work up and care recommendations were made: Dressing: EpiFix graft, Adaptic touch, Steri-Strips, dry sterile dressing. Do not get wet. May change outer dressing as needed Wash: Do not get wet Tissue growth optimization: EpiFix Offload: Plantar offloading padding and CAM boot right foot Vascular: DP and PT pulses Palpable with adequate capillary fill time. Do not feel vascular status is impacting wound healing. Edema: No signs of pedal edema Infection: No signs of infection Pain: No pain secondary to diabetic peripheral polyneuropathy Host factors: DM type I with peripheral polyneuropathy, patient's himself as iatrogenic cause to ulcer, pressure I answered all the patient's questions. To return to the wound healing center in 1 week or call sooner if the patient has any questions or concerns. 09/18/231955 <Electronically signed by George Ambrocio DPM> Cosigner Signature (if applicable): CC: ~ Signed [facility] Work Phone: [phone]) 889-254202-29-2024 Progress note Author George Ambrocio [facility] September 11, 2023 11:53am Note Date/Time September 11, 2023 9:14am [facility] [address] [place] [address] Progress Note - Wound Care 09/11/23 0914 MR#: [id number] Acct: [id number] Name: TREVON RAMAN Rep #:[id number] : 1985 38 From: George martinez DPM PCP: Dr. Magdiel Hurst MD Status:R [facility] Location: History of Present Illness Date of Service: 09/11/23 Chief Complaint: right plantar foot ulcer and right leg ulcer History of Wound: This 38-year-old diabetic male presents to the wound healing center for a subfourth metatarsal ulceration of the right foot. 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 He states he tried to care for the ulceration for roughly 2 to 3 weeks in which it was not healing and presented to office. In office he did undergo debridement of the site continued offloading in cam boot however did not obtain his dressing supplies and was performing daily changes of wet to dry gauze. He was referred to the wound care center for applications of advanced wound care product. He states no pain secondary to diabetic peripheral polyneuropathy. He denies N/V/F/chills. He denies further complaints. Subjective Subjective This is a 38-year-old male who presents to the wound care center for follow-up of a plantar fourth metatarsal ulceration of the right foot. He is continued offloading site in CAM boot and surgical shoe with plantar offloading padding. He has left grafting product in place to the wound bed and is changing outer dressing as needed. He denies constitutional symptoms. Denies further complaints. Objective Data Objective Data Vital Signs: Vital Signs Temp Pulse Resp BP O2 Del Method 96.5 F L 92 18 140/97 H Room Air 09/11/23 09:01 09/11/23 09:01 09/11/23 09:01 09/11/23 09:01 09/11/23 09:01 Oxygen Delivery Method Room Air Weight: 120.202 kg Body Mass Index (BMI) 35.9 Physical Exam Const alert, oriented x3 and no apparent distress General Appearance: cooperative HEENT normocephalic Eyes General Eye: normal appearance of both eyes Neck General: normal visual inspection Lymph Lymphatic: no lymphadenopathy noted and no lymphedema noted Resp normal respiratory effort Cardio regular rate and regular rhythm Extremity normal capillary refill, no joint enlargement, no calf tenderness and no pedal edema Extremity Narrative: DP and PT pulses palpable right foot. Capillary fill time less than 4 seconds to digits right foot. No pedal edema is noted. Dermatological: Skin is mildly xerotic to the plantar aspect. There is a ulceration subfourth metatarsal head with surrounding hyperkeratotic tissue and healthy appearing granular layer. There is scant serosanguineous drainage. No erythema, no purulent drainage, no malodor, no palpable fluctuance/bogginess noted, no visible abscess formation, no lymphangitic streaking. Musculoskeletal: Muscle strength 5 of 5 age-appropriate. Partial fifth ray amputation is noted to the right foot. Decreased range of motion of the ankle joint in dorsiflexion with the knee extended without pain or crepitus. Decreased range of motion of the first metatarsophalangeal joint without pain orcrepitus. Skin no rashes or lesions noted, skin turgor normal and no jaundice Neuro moves all extremities Neuro Narrative: Decreased protective sensation secondary to diabetic peripheral polyneuropathy Debridement Note Debridement Note Wound debrided: Subfourth metatarsal head Laterality: Right Wound Grade/Stage: Reynoso stage I Type of Debridement: Excisional debridement Anesthesia Used: 5% Lidocaine Gel Depth: Down to and including healthy tissue and in the subcutaneous layer Percentage of wound debrided: 100 Instrument Used: 3mm curette and #15 blade Tissue Removed: Fibrous, devitalized subcutaneous, biofilm, slough Severity: Fat Layer Exposed Amount of bleeding with debridement: Mild Bleeding Controlled with: Compression and gauze Patient tolerated procedure: Patient tolerated procedure well Post-Debridement Measurements and Additional Note: Post-Debridement Measurements/Treatment - Nurse 1 - General Ulcer Assessment Start: 08/14/23 08:59 Freq: Status: Active Protocol: LORI Activity Type Activity Date Activity User E-sign Co-sign Detail Recorded Client Recorded Date Recorded By Document 08/14/23 09:00 DL Desktop 08/14/23 09:11 DL Document 08/21/23 08:56 KW Desktop 08/21/23 09:02 KW Edit Result 08/21/23 08:56 KW (1) Desktop 08/21/23 09:05 KW Document 08/28/23 08:59 KW Desktop 08/28/23 09:02 KW Document 09/04/23 09:01 KW Desktop 09/04/23 09:11 KW Document 09/11/23 09:01 KW Desktop 09/11/23 09:14 KW (1) Right Footwear Regular Shoe => Removable Cast => Walker/Walking => Boot 08/14/23 08/21/23 08/28/23 09:00 08:56 08:59 - Today's Visit Information Type of service Follow-up Visit Follow-up Visit Follow-up Visit (Physician/ACADEMIC REGISTRAR (Physician/ACADEMIC REGISTRAR (Physician/ACADEMIC REGISTRAR ) ) ) Arrival Mode Ambulatory Ambulatory Ambulatory Transfer Assistance None Patient Identification Verified (Name & Yes Yes Yes ) Patient Requires Transmission-Based No Precautions Finger Stick Blood Sugar(mg/dl) (if 232 142 indicated): Blood Sugar Stated by Stated by Patient Patient Height and Weight Body Mass Index (BMI) 35.9 35.9 35.9 BMI Classification Obese Obese Obese Vital Signs Temperature (97.8 F-99.1 F) 97.8 F 97.0 F L 97.1 F L Temperature Source Temporal Temporal Temporal Pulse Rate (60-100) 92 92 93 Pulse Location Monitor Monitor Monitor Respiratory Rate (12-18) 20 H 18 16 Respiratory rate source Observation Observation Observation Oxygen Delivery Method Room Air Room Air Blood Pressure (90/60-120/80) 122/60 H 129/74 H 161/78 H Blood Pressure Mean (mm Hg) 80 92 105 Source Monitor Monitor Monitor Position Semi-Fowlers Semi-Fowlers Blood Pressure Location Left Arm Left Arm History Since Last Visit- (Skip if this is Patient's initial visit) Have you changed medications since your No No No last visit? Any new allergies or adverse reactions No No No Had a fall/change in ADL's that may No No No increase risk of falls Signs or symptoms of abuse and/or No No No neglect since last visit Have you been in the hospital since your No No No last visit? Has dressing in place as prescribed Yes Yes Yes Has compression in place as prescribed Yes N/A No Has offloadiing in place as prescribed Yes Yes Yes Experienced any changes in pain level or No No No management Left Footwear Regular Shoe Regular Shoe Regular Shoe Right Footwear Removable Cast Removable Cast Removable Cast Walker/Walking Walker/Walking Walker/Walking Boot Boot Boot Pain Scale: 0-10 Numeric Is Patient Pain Free? Yes Yes Yes 09/04/23 09/11/23 09:01 09:01 - Today's Visit Information Type of service Follow-up Visit Follow-up Visit (Physician/ACADEMIC REGISTRAR (Physician/ACADEMIC REGISTRAR ) ) Arrival Mode Ambulatory Ambulatory Transfer Assistance Patient Identification Verified (Name & Yes Yes ) Patient Requires Transmission-Based Precautions Finger Stick Blood Sugar(mg/dl) (if 123 indicated): Blood Sugar Stated by Patient Height and Weight Body Mass Index (BMI) 35.9 35.9 BMI Classification Obese Obese Vital Signs Temperature (97.8 F-99.1 F) 96.4 F L 96.5 F L Temperature Source Temporal Temporal Pulse Rate (60-100) 84 92 Pulse Location Monitor Monitor Respiratory Rate (12-18) 16 18 Respiratory rate source Observation Observation Oxygen Delivery Method Room Air Room Air Blood Pressure (90/60-120/80) 143/80 H 140/97 H Blood Pressure Mean (mm Hg) 101 111 Source Monitor Monitor Position Semi-Fowlers Semi-Fowlers Blood Pressure Location Left Arm Left Arm History Since Last Visit- (Skip if this is Patient's initial visit) Have you changed medications since your No No last visit? Any new allergies or adverse reactions No No Had a fall/change in ADL's that may No No increase risk of falls Signs or symptoms of abuse and/or No No neglect since last visit Have you been in the hospital since your No No last visit? Has dressing in place as prescribed Yes Yes Has compression in place as prescribed N/A Yes Has offloadiing in place as prescribed Yes N/A Experienced any changes in pain level or No No management Left Footwear Regular Shoe Regular Shoe Right Footwear Removable Cast Removable Cast Walker/Walking Walker/Walking Boot Boot Pain Scale: 0-10 Numeric Is Patient Pain Free? Yes Yes WC - Nurse 1 - General Ulcer Measurement Start: 08/14/23 08:59 Freq: Status: Active Protocol: Activity Type Activity Date Activity User E-sign Co-sign Detail Recorded Client Recorded Date Recorded By Document 08/14/23 09:00 DL Desktop 08/14/23 09:11 DL Document 08/21/23 08:56 KW Desktop 08/21/23 09:02 KW Edit Result 08/21/23 08:56 KW (1) Desktop 08/21/23 09:04 KW Document 08/28/23 08:59 KW Desktop 08/28/23 09:02 KW Document 09/04/23 09:01 KW Desktop 09/04/23 09:11 KW Document 09/11/23 09:01 KW Desktop 09/11/23 09:14 KW (1) #4 Lateral Right Plantar Foot - Combined with other wound => No - Current Size (cm) - Length => 0.8 - Current Size (cm) - Width => 0.9 - Current Size (cm) - Depth => 0.2 - Total Square Cm => 0.72 - Photo Taken => Yes - Epithelialization => Small 1-33% - Tunneling => No - Undermining/Tunneling => Yes - Undermining/Tunneling Starts (O'clock) => 12 - Undermining/Tunneling Ends (O'clock) => 3 - Maximum Distance (cm) => 0.4 - Circular Undermining => No - Exudate Amt => Small - Exudate Type => Serosanguineous - Wound Margin => Flat & Intact - Granulation Amt => Large (67-100%) - Granulation Quality => Red - Slough/Fibrin => Yes - Necrosis Amt => Small (1-33%) - Necrotic Tissue Type => Adherent Slough - Structure Exposed => N/A - Texture (Yu-wound Skin Appearance) => Assessed,Callus - Moisture (Yu-wound Skin Appearance) => Assessed - Color (Yu-wound Skin Appearance) => Assessed - Temperature (Yu-wound Skin => No Abnormality (Pt Appearance) => Warm) - Tenderness on Palpation (Yu-wound => No Skin Appearance) - Ulcer Cleansing => Wound Cleanser - Foul Odor after Cleansing => No - Anesthetic Used => 5% Lidocaine Gel 08/14/23 08/21/23 08/28/23 09:00 08:56 08:59 Wound Center Nurse 1 #4 Lateral Right Plantar Foot -Combined with other wound No -Current Size (cm) - Length 0.9 0.8 0.8 -Current Size (cm) - Width 1.2 0.9 0.9 -Current Size (cm) - Depth 0.2 0.2 0.2 -Total Square Cm 1.08 0.72 0.72 -Photo Taken Yes -Epithelialization Small 1-33% -Tunneling No -Tunneling Position (O'clock) -Tunneling Distance (cm) -Undermining/Tunneling Yes Yes -Undermining/Tunneling Starts (O'clock 12 10 ) -Undermining/Tunneling Ends (O'clock) 3 4 -Maximum Distance (cm) 0.4 0.4 -Circular Undermining No -Exudate Amt Medium Small -Exudate Type Serosanguineous Serosanguineous -Wound Margin Distinct, Flat & Intact Thickened Outline Attached -Granulation Amt Large (67-100%) Large (67-100%) Large (67-100%) -Granulation Quality [place] -Slough/Fibrin Yes -Necrosis Amt Small (1-33%) Small (1-33%) -Necrotic Tissue Type Adherent Slough Adherent Slough -Structure Exposed N/A N/A -Texture (Yu-wound Skin Appearance) Callus,Scarring Assessed,Callus Assessed,Callus -Moisture (Yu-wound Skin Appearance) No Abnormality Assessed Maceration -Color (Yu-wound Skin Appearance) No Abnormality Assessed Assessed -Temperature (Yu-wound Skin No Abnormality No Abnormality No Abnormality Appearance) (Pt Warm) (Pt Warm) (Pt Warm) -Tenderness on Palpation (Yu-wound No No Skin Appearance) -Ulcer Cleansing Soap and Water Wound Cleanser Rinsed/ Irrigated with Saline -Foul Odor after Cleansing No No -Anesthetic Used 5% Lidocaine 5% Lidocaine 5% Lidocaine Gel Gel Gel Lower Limb Edema Present NA 09/04/23 09/11/23 09:01 09:01 Wound Center Nurse 1 #4 Lateral Right Plantar Foot -Combined with other wound -Current Size (cm) - Length 0.6 0.5 -Current Size (cm) - Width 0.6 0.5 -Current Size (cm) - Depth 0.2 0.1 -Total Square Cm 0.36 0.25 -Photo Taken -Epithelialization -Tunneling Yes -Tunneling Position (O'clock) 12 -Tunneling Distance (cm) 0.2 -Undermining/Tunneling Yes -Undermining/Tunneling Starts (O'clock 12 ) -Undermining/Tunneling Ends (O'clock) 1 -Maximum Distance (cm) 0.3 -Circular Undermining -Exudate Amt Small Small -Exudate Type Serosanguineous Serosanguineous -Wound Margin Distinct, Distinct, Outline Outline Attached Attached -Granulation Amt Large (67-100%) Large (67-100%) -Granulation Quality Red Red -Slough/Fibrin -Necrosis Amt -Necrotic Tissue Type -Structure Exposed -Texture (Yu-wound Skin Appearance) Assessed,Callus Assessed,Callus -Moisture (Yu-wound Skin Appearance) Assessed,Dry/ Assessed Scaly -Color (Yu-wound Skin Appearance) Assessed Assessed -Temperature (Yu-wound Skin No Abnormality No Abnormality Appearance) (Pt Warm) (Pt Warm) -Tenderness on Palpation (Yu-wound Skin Appearance) -Ulcer Cleansing Soap and Water Soap and Water -Foul Odor after Cleansing No -Anesthetic Used 5% Lidocaine 5% Lidocaine Gel Gel Lower Limb Edema Present WC - Nurse 2 - General Ulcer CM Notes Start: 08/14/23 08:59 Freq: Status: Active Protocol: Activity Type Activity Date Activity User E-sign Co-sign Detail Recorded Client Recorded Date Recorded By Document 08/14/23 10:28 PL Tablet 08/14/23 10:30 PL Document 08/21/23 11:58 PL [id number] 08/21/23 12:00 PL Edit Result 08/21/23 11:58 PL (1) [id number] 08/21/23 12:02 PL Document 08/28/23 09:46 PL Tablet 08/28/23 09:50 PL Document 09/04/23 12:06 PL [id number] 09/04/23 12:08 PL (1) #4 Lateral Right Plantar Foot - Bioengineered Tissue No => Yes - Type of Bioengineered Tissue => Epifix 18mm Disc - Expiration Date => 04/13/28 - Product Lot Number => [id number] - Percent Used => 100 - Debridement - Subq, 1st 20sq cm Yes => No - Apply Skin Sub - 1st 25 sq cm - Feet => 1 - Epifix 18mm Disc => 3 08/14/23 08/21/23 08/28/23 10:28 11:58 09:46 Wound Center Nurse 2 #4 Lateral Right Plantar Foot -Time 09:15 09:15 09:15 -Correct Patient Yes Yes Yes -Correct Side, Site, Position Yes Yes Yes -Correct Procedure Yes Yes Yes -Procedure Performed Yes Yes Yes -Type of Procedure Debridement Debridement Debridement -Clinical Debridement Subcutaneous Subcutaneous Subcutaneous -Tissue Removed Subcutaneous Subcutaneous Subcutaneous -Post Debridement (cm) - Length 1.0 0.9 1.0 -Post Debridement (cm) - Width 1.0 1.0 0.9 -Post Debridement (cm) - Depth 0.1 0.1 0.1 -Total Square (Post) (cm) 1.00 0.90 0.90 -Area of Debridement (cm) - Length 1.0 0.9 1.0 -Area of Debridement (cm) - Width 1.0 1.0 0.9 -Total Square (Area) (cm) 1.00 0.90 0.90 -Tunneling No No No -Undermining/Tunneling No No No -Circular Undermining No No No -Wound/Ulcer Outcome Not Healed Not Healed Not Healed -Ulcer Cleansing Rinsed/ Rinsed/ Rinsed/ Irrigated with Irrigated with Irrigated with Saline Saline Saline -Foul Odor after Cleansing No No No -Bioengineered Tissue Yes Yes Yes -Type of Bioengineered Tissue Epifix 18mm Epifix 18mm Epifix 18mm Disc Disc Disc -Expiration Date 03/14/28 04/13/28 04/13/28 -Product Lot Number [id number] -Percent Used 100 100 100 -Bleeding Controlled with Pressure Pressure Pressure -Treatment Response Procedure Procedure Procedure Tolerated Well Tolerated Well Tolerated Well -Debridement - Subq, 1st 20sq cm No No No -Apply Skin Sub - 1st 25 sq cm - Feet 1 1 1 -Epifix 18mm Disc 3 3 3 Pain Scale: 0-10 Numeric Is Patient Pain Free? Yes Yes Yes 09/04/23 12:06 Wound Center Nurse 2 #4 Lateral Right Plantar Foot -Time 09:18 -Correct Patient Yes -Correct Side, Site, Position Yes -Correct Procedure Yes -Procedure Performed Yes -Type of Procedure Debridement -Clinical Debridement Subcutaneous -Tissue Removed Subcutaneous -Post Debridement (cm) - Length 0.7 -Post Debridement (cm) - Width 0.7 -Post Debridement (cm) - Depth 0.1 -Total Square (Post) (cm) 0.49 -Area of Debridement (cm) - Length 0.7 -Area of Debridement (cm) - Width 0.7 -Total Square (Area) (cm) 0.49 -Tunneling No -Undermining/Tunneling No -Circular Undermining No -Wound/Ulcer Outcome Not Healed -Ulcer Cleansing Rinsed/ Irrigated with Saline -Foul Odor after Cleansing No -Bioengineered Tissue Yes -Type of Bioengineered Tissue Epifix 18mm Disc -Expiration Date 04/13/28 -Product Lot Number [id number] -Percent Used 100 -Bleeding Controlled with Pressure -Treatment Response Procedure Tolerated Well -Debridement - Subq, 1st 20sq cm No -Apply Skin Sub - 1st 25 sq cm - Feet 1 -Epifix 18mm Disc 3 Pain Scale: 0-10 Numeric Is Patient Pain Free? Yes - Nurse 3 - General Ulcer D/C NN Start: 08/14/23 08:59 Freq: Status: Active Protocol: Activity Type Activity Date Activity User E-sign Co-sign Detail Recorded Client Recorded Date Recorded By Document 08/14/23 09:33 DL Desktop 08/14/23 09:34 DL Document 08/21/23 09:26 KW Desktop 08/21/23 09:26 KW Document 08/28/23 09:38 KW Desktop 08/28/23 09:38 KW Document 09/04/23 09:29 KW Desktop 09/04/23 09:30 KW 08/14/23 08/21/23 08/28/23 09:33 09:26 09:38 Wound Care Center Nurse 3 #4 Lateral Right Plantar Foot -Ulcer Cleansing Not Cleansed -Foul Odor after Cleansing No -Other Dressing Epifix -Primary Dressing Covered/Secured with Dry Gauze & Dry Gauze & Dry Gauze & Roll Gauze, Roll Gauze, Roll Gauze, Secured with Secured with Secured with Tape Tape Tape Treatment Response Procedure Tolerated Well Pain Scale: 0-10 Numeric Is Patient Pain Free? Yes Yes Yes - Visit Discharge Discharge Condition Stable Stable Stable Ambulatory Status Ambulatory Ambulatory Ambulatory Transportation Private Auto Private Auto Private Auto Medication Reconcilliation completed & No No provided to patient/care provider Clinical Summary of Care Provided Yes Yes 09/04/23 09:29 Wound Care Center Nurse 3 #4 Lateral Right Plantar Foot -Ulcer Cleansing -Foul Odor after Cleansing -Other Dressing -Primary Dressing Covered/Secured with Dry Gauze & Roll Gauze, Secured with Tape Treatment Response Pain Scale: 0-10 Numeric Is Patient Pain Free? Yes WC - Visit Discharge Discharge Condition Stable Ambulatory Status Ambulatory Transportation Private Auto Medication Reconcilliation completed & No provided to patient/care provider Clinical Summary of Care Provided Yes Assessment/Plan Assessment/Plan (1) Diabetes mellitus with foot ulcer: CODE(S): E11.621 - Type 2 diabetes mellitus with foot ulcer; L97.509 - Non- pressure chronic ulcer of other part of unspecified foot with unspecified severity (2) Ulcer of right foot with fat layer exposed: CODE(S): L97.512 - Non-pressure chronic ulcer of other part of right foot with fat layer exposed (3) Diabetes mellitus type 1: CODE(S): E10.9 - Type 1 diabetes mellitus without complications QUALIFIERS: Diabetes mellitus complication detail: without coma Diabetes mellitus complication status: with hypoglycemia Qualified Code(s): E10.649 - Type 1 diabetes mellitus with hypoglycemia without coma (4) Delayed wound healing: CODE(S): T14.8XXD - Other injury of unspecified body region, subsequent encounter (5) Diabetic neuropathy: CODE(S): E11.40 - Type 2 diabetes mellitus with diabetic neuropathy, unspecified QUALIFIERS: Diabetes mellitus complication detail: diabetic polyneuropathy Diabetes mellitus type: type 1 Qualified Code(s): E10.42 - Type1 diabetes mellitus with diabetic polyneuropathy PLAN: Plan Patient seen and evaluated Ulceration subfourth metatarsal head of the right foot was debrided as noted in the clinical panel above. Ulceration measures 0.6 cm x 0.6 cm x 0.2 cm. EpiFixgraft #6 applied to the wound bed and dressed with Adaptic touch and anchored with Steri-Strips. Dry sterile dressing applied to the right foot. He is instructed to change outer dressings as needed. He is instructed to keep the dressings clean, dry, and intact and to not get the site wet. He was advised toutilize cast bag when showering to keep the dressings dry. Ulceration demonstrates reduction in size versus previous visit Recommended continued offloading in CAM boot to the right foot with plantar offloading padding. Surgical shoe also offloaded so that he may wear this when getting up to go to the bathroom at night. Otherwise will remain in CAM boot with plantar offloading padding. Discussed proper diabetic diet and tight glycemic control to continue to aid in healing of his ulceration. Discussed adequate protein intake to continue to aid in wound healing. Bhaskar supplementation also recommended to aid in wound healing. Discussed signs of infection today. He was instructed if he notices increasing redness about the ulcerative site that moves up onto the foot or up his leg, if he notices purulent drainage from the wound site, if he notices increasing foul odor from the wound, or if he develops fever greater than 101 degree, or nausea,or vomiting, or chills, that these are signs of a progressing infection and he should report to the ED to receive IV antibiotics. He voices understanding of this. The following work up and care recommendations were made: Dressing: EpiFix graft, Adaptic touch, Steri-Strips, dry sterile dressing. Do not get wet. May change outer dressing as needed Wash: Do not get wet Tissue growth optimization: EpiFix Offload: Plantar offloading padding and CAM boot right foot Vascular: DP and PT pulses Palpable with adequate capillary fill time. Do not feel vascular status is impacting wound healing. Edema: No signs of pedal edema Infection: No signs of infection Pain: No pain secondary to diabetic peripheral polyneuropathy Host factors: DM type I with peripheral polyneuropathy, patient's himself as iatrogenic cause to ulcer, pressure I answered all the patient's questions. To return to the wound healing center in 1 week or call sooner if the patient has any questions or concerns. 09/11/23 1153 <Electronically signed by George Ambrocio DPM> Cosigner Signature (if applicable): CC: ~ Signed [facility] Work Phone: [phone] 750-762502-22-2024 Progress note Author George Cristóbal [facility] September 04, 2023 9:55am Note Date/Time September 04, 2023 8:59am [facility] [address] [place] [address] Progress Note - Wound Care 09/04/23 0858 MR#: [id number] Acct: [id number] Name: TREVON RAMAN Rep #:[id number] : 1985 38 From: George martinez DPM PCP: Dr. Magdiel Hurst MD Status:R EG RCR Location: History of Present Illness Date of Service: 09/04/23 Chief Complaint: right plantar foot ulcer and right leg ulcer History of Wound: This 38-year-old diabetic male presents to the wound healing center for a subfourth metatarsal ulceration of the right foot. 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 He states he tried to care for the ulceration for roughly 2 to 3 weeks in which it was not healing and presented to office. In office he did undergo debridement of the site continued offloading in cam boot however did not obtain his dressing supplies and was performing daily changes of wet to dry gauze. He was referred to the wound care center for applications of advanced wound care product. He states no pain secondary to diabetic peripheral polyneuropathy. He denies N/V/F/chills. He denies further complaints. Subjective Subjective This is a 38-year-old male who presents to the wound care center for follow-up of a plantar fourth metatarsal ulceration of the right foot. He is continued offloading site in [facility] boot with plantar offloading padding. He has left grafting product in place to the wound bed and is changing outer dressing as needed. He denies constitutional symptoms. Denies further complaints. Objective Data Objective Data Vital Signs: Vital Signs Temp Pulse Resp BP O2 Del Method 97.1 F L 93 16 161/78 H Room Air 08/28/23 08:59 08/28/23 08:59 08/28/23 08:59 08/28/23 08:59 08/28/23 08:59 Oxygen Delivery Method Room Air Weight: 120.202 kg Body Mass Index (BMI) 35.9 Physical Exam Const alert, oriented x3 and no apparent distress General Appearance: cooperative HEENT normocephalic Eyes General Eye: normal appearance of both eyes Neck General: normal visual inspection Lymph Lymphatic: no lymphadenopathy noted and no lymphedema noted Resp normal respiratory effort Cardio regular rate and regular rhythm Extremity normal capillary refill, no joint enlargement, no calf tenderness and no pedal edema Extremity Narrative: DP and PT pulses palpable right foot. Capillary fill time less than 4 seconds to digits right foot. No pedal edema is noted. Dermatological: Skin is mildly xerotic to the plantar aspect. There is a ulceration subfourth metatarsal head with surrounding hyperkeratotic tissue and healthy appearing granular layer. There is scant serosanguineous drainage. No erythema, no purulent drainage, no malodor, no palpable fluctuance/bogginess noted, no visible abscess formation, no lymphangitic streaking. Musculoskeletal: Muscle strength 5 of 5 age-appropriate. Partial fifth ray amputation is noted to the right foot. Decreased range of motion of the ankle joint in dorsiflexion with the knee extended without pain or crepitus. Decreased range of motion of the first metatarsophalangeal joint without pain orcrepitus. Skin no rashes or lesions noted, skin turgor normal and no jaundice Neuro moves all extremities Neuro Narrative: Decreased protective sensation secondary to diabetic peripheral polyneuropathy Debridement Note Debridement Note Wound debrided: Subfourth metatarsal right foot Laterality: Right Wound Grade/Stage: Reynoso stage I Type of Debridement: Excisional debridement Anesthesia Used: 5% Lidocaine Gel Depth: Down to and including healthy tissue and in the subcutaneous layer Percentage of wound debrided: 100 Instrument Used: 5mm curette Tissue Removed: Fibrous, devitalized subcutaneous, biofilm, slough Severity: Fat Layer Exposed Amount of bleeding with debridement: Mild Bleeding Controlled with: Compression and gauze Patient tolerated procedure: Patient tolerated procedure well Post-Debridement Measurements and Additional Note: Post-Debridement Measurements/Treatment WC - Nurse 1 - General Ulcer Assessment Start: 08/14/23 08:59 Freq: Status: Active Protocol: LORI Activity Type Activity Date Activity User E-sign Co-sign Detail Recorded Client Recorded Date Recorded By Document 08/14/23 09:00 DL Desktop 08/14/23 09:11 DL Document 08/21/23 08:56 KW Desktop 08/21/23 09:02 KW Edit Result 08/21/23 08:56 KW (1) Desktop 08/21/23 09:05 KW Document 08/28/23 08:59 KW Desktop 08/28/23 09:02 KW (1) Right Footwear Regular Shoe => Removable Cast => Walker/Walking => Boot 08/14/23 08/21/23 08/28/23 09:00 08:56 08:59 WC - Today's Visit Information Type of service Follow-up Visit Follow-up Visit Follow-up Visit (Physician/ACADEMIC REGISTRAR (Physician/ACADEMIC REGISTRAR (Physician/ACADEMIC REGISTRAR ) ) ) Arrival Mode Ambulatory Ambulatory Ambulatory Transfer Assistance None Patient Identification Verified (Name & Yes Yes Yes ) Patient Requires Transmission-Based No Precautions Finger Stick Blood Sugar(mg/dl) (if 232 142 indicated): Blood Sugar Stated by Stated by Patient Patient Height and Weight Body Mass Index (BMI) 35.9 35.9 35.9 BMI Classification Obese Obese Obese Vital Signs Temperature (97.8 F-99.1 F) 97.8 F 97.0 F L 97.1 F L Temperature Source Temporal Temporal Temporal Pulse Rate (60-100) 92 92 93 Pulse Location Monitor Monitor Monitor Respiratory Rate (12-18) 20 H 18 16 Respiratory rate source Observation Observation Observation Oxygen Delivery Method Room Air Room Air Blood Pressure (90/60-120/80) 122/60 H 129/74 H 161/78 H Blood Pressure Mean (mm Hg) 80 92 105 Source Monitor Monitor Monitor Position Semi-Fowlers Semi-Fowlers Blood Pressure Location Left Arm Left Arm History Since Last Visit- (Skip if this is Patient's initial visit) Have you changed medications since your No No No last visit? Any new allergies or adverse reactions No No No Had a fall/change in ADL's that may No No No increase risk of falls Signs or symptoms of abuse and/or No No No neglect since last visit Have you been in the hospital since your No No No last visit? Has dressing in place as prescribed Yes Yes Yes Has compression in place as prescribed Yes N/A No Has offloadiing in place as prescribed Yes Yes Yes Experienced any changes in pain level or No No No management Left Footwear Regular Shoe Regular Shoe Regular Shoe Right Footwear Removable Cast Removable Cast Removable Cast Walker/Walking Walker/Walking Walker/Walking Boot Boot Boot Pain Scale: 0-10 Numeric Is Patient Pain Free? Yes Yes Yes WC - Nurse 1 - General Ulcer Measurement Start: 08/14/23 08:59 Freq: Status: Active Protocol: Activity Type Activity Date Activity User E-sign Co-sign Detail Recorded Client Recorded Date Recorded By Document 08/14/23 09:00 DL Desktop 08/14/23 09:11 DL Document 08/21/23 08:56 KW Desktop 08/21/23 09:02 KW Edit Result 08/21/23 08:56 KW (1) Desktop 08/21/23 09:04 KW Document 08/28/23 08:59 KW Desktop 08/28/23 09:02 KW (1) #4 Lateral Right Plantar Foot - Combined with other wound => No - Current Size (cm) - Length => 0.8 - Current Size (cm) - Width => 0.9 - Current Size (cm) - Depth => 0.2 - Total Square Cm => 0.72 - Photo Taken => Yes - Epithelialization => Small 1-33% - Tunneling => No - Undermining/Tunneling => Yes - Undermining/Tunneling Starts (O'clock) => 12 - Undermining/Tunneling Ends (O'clock) => 3 - Maximum Distance (cm) => 0.4 - Circular Undermining => No - Exudate Amt => Small - Exudate Type => Serosanguineous - Wound Margin => Flat & Intact - Granulation Amt => Large (67-100%) - Granulation Quality => Red - Slough/Fibrin => Yes - Necrosis Amt => Small (1-33%) - Necrotic Tissue Type => Adherent Slough - Structure Exposed => N/A - Texture (Yu-wound Skin Appearance) => Assessed,Callus - Moisture (Yu-wound Skin Appearance) => Assessed - Color (Yu-wound Skin Appearance) => Assessed - Temperature (Yu-wound Skin => No Abnormality (Pt Appearance) => Warm) - Tenderness on Palpation (Yu-wound => No Skin Appearance) - Ulcer Cleansing => Wound Cleanser - Foul Odor after Cleansing => No - Anesthetic Used => 5% Lidocaine Gel 08/14/23 08/21/23 08/28/23 09:00 08:56 08:59 Wound Center Nurse 1 #4 Lateral Right Plantar Foot -Combined with other wound No -Current Size (cm) - Length 0.9 0.8 0.8 -Current Size (cm) - Width 1.2 0.9 0.9 -Current Size (cm) - Depth 0.2 0.2 0.2 -Total Square Cm 1.08 0.72 0.72 -Photo Taken Yes -Epithelialization Small 1-33% -Tunneling No -Undermining/Tunneling Yes Yes -Undermining/Tunneling Starts (O'clock 12 10 ) -Undermining/Tunneling Ends (O'clock) 3 4 -Maximum Distance (cm) 0.4 0.4 -Circular Undermining No -Exudate Amt Medium Small -Exudate Type Serosanguineous Serosanguineous -Wound Margin Distinct, Flat & Intact Thickened Outline Attached -Granulation Amt Large (67-100%) Large (67-100%) Large (67-100%) -Granulation Quality [place] -Slough/Fibrin Yes -Necrosis Amt Small (1-33%) Small (1-33%) -Necrotic Tissue Type Adherent Slough Adherent Slough -Structure Exposed N/A N/A -Texture (Yu-wound Skin Appearance) Callus,Scarring Assessed,Callus Assessed,Callus -Moisture (Yu-wound Skin Appearance) No Abnormality Assessed Maceration -Color (Yu-wound Skin Appearance) No Abnormality Assessed Assessed -Temperature (Yu-wound Skin No Abnormality No Abnormality No Abnormality Appearance) (Pt Warm) (Pt Warm) (Pt Warm) -Tenderness on Palpation (Yu-wound No No Skin Appearance) -Ulcer Cleansing Soap and Water Wound Cleanser Rinsed/ Irrigated with Saline -Foul Odor after Cleansing No No -Anesthetic Used 5% Lidocaine 5% Lidocaine 5% Lidocaine Gel Gel Gel Lower Limb Edema Present NA WC - Nurse 2 - General Ulcer CM Notes Start: 08/14/23 08:59 Freq: Status: Active Protocol: Activity Type Activity Date Activity User E-sign Co-sign Detail Recorded Client Recorded Date Recorded By Document 08/14/23 10:28 PL Tablet 08/14/23 10:30 PL Document 08/21/23 11:58 PL [id number] 08/21/23 12:00 PL Edit Result 08/21/23 11:58 PL (1) [id number] 08/21/23 12:02 PL Document 08/28/23 09:46 PL Tablet 08/28/23 09:50 PL (1) #4 Lateral Right Plantar Foot - Bioengineered Tissue No => Yes - Type of Bioengineered Tissue => Epifix 18mm Disc - Expiration Date => 04/13/28 - Product Lot Number => [id number] - Percent Used => 100 - Debridement - Subq, 1st 20sq cm Yes => No - Apply Skin Sub - 1st 25 sq cm - Feet => 1 - Epifix 18mm Disc => 3 08/14/23 08/21/23 08/28/23 10:28 11:58 09:46 Wound Center Nurse 2 #4 Lateral Right Plantar Foot -Time 09:15 09:15 09:15 -Correct Patient Yes Yes Yes -Correct Side, Site, Position Yes Yes Yes -Correct Procedure Yes Yes Yes -Procedure Performed Yes Yes Yes -Type of Procedure Debridement Debridement Debridement -Clinical Debridement Subcutaneous Subcutaneous Subcutaneous -Tissue Removed Subcutaneous Subcutaneous Subcutaneous -Post Debridement (cm) - Length 1.0 0.9 1.0 -Post Debridement (cm) - Width 1.0 1.0 0.9 -Post Debridement (cm) - Depth 0.1 0.1 0.1 -Total Square (Post) (cm) 1.00 0.90 0.90 -Area of Debridement (cm) - Length 1.0 0.9 1.0 -Area of Debridement (cm) - Width 1.0 1.0 0.9 -Total Square (Area) (cm) 1.00 0.90 0.90 -Tunneling No No No -Undermining/Tunneling No No No -Circular Undermining No No No -Wound/Ulcer Outcome Not Healed Not Healed Not Healed -Ulcer Cleansing Rinsed/ Rinsed/ Rinsed/ Irrigated with Irrigated with Irrigated with Saline Saline Saline -Foul Odor after Cleansing No No No -Bioengineered Tissue Yes Yes Yes -Type of Bioengineered Tissue Epifix 18mm Epifix 18mm Epifix 18mm Disc Disc Disc -Expiration Date 03/14/28 04/13/28 04/13/28 -Product Lot Number [id number] -Percent Used 100 100 100 -Bleeding Controlled with Pressure Pressure Pressure -Treatment Response Procedure Procedure Procedure Tolerated Well Tolerated Well Tolerated Well -Debridement - Subq, 1st 20sq cm No No No -Apply Skin Sub - 1st 25 sq cm - Feet 1 1 1 -Epifix 18mm Disc 3 3 3 Pain Scale: 0-10 Numeric Is Patient Pain Free? Yes Yes Yes WC - Nurse 3 - General Ulcer D/C NN Start: 08/14/23 08:59 Freq: Status: Active Protocol: Activity Type Activity Date Activity User E-sign Co-sign Detail Recorded Client Recorded Date Recorded By Document 08/14/23 09:33 DL Desktop 08/14/23 09:34 DL Document 08/21/23 09:26 KW Desktop 08/21/23 09:26 KW Document 08/28/23 09:38 KW Desktop 08/28/23 09:38 KW 08/14/23 08/21/23 08/28/23 09:33 09:26 09:38 Wound Care Center Nurse 3 #4 Lateral Right Plantar Foot -Ulcer Cleansing Not Cleansed -Foul Odor after Cleansing No -Other Dressing Epifix -Primary Dressing Covered/Secured with Dry Gauze & Dry Gauze & Dry Gauze & Roll Gauze, Roll Gauze, Roll Gauze, Secured with Secured with Secured with Tape Tape Tape Treatment Response Procedure Tolerated Well Pain Scale: 0-10 Numeric Is Patient Pain Free? Yes Yes Yes WC - Visit Discharge Discharge Condition Stable Stable Stable Ambulatory Status Ambulatory Ambulatory Ambulatory Transportation Private Auto Private Auto Private Auto Medication Reconcilliation completed & No No provided to patient/care provider Clinical Summary of Care Provided Yes Yes Assessment/Plan Assessment/Plan (1) Diabetes mellitus with foot ulcer: CODE(S): E11.621 - Type 2 diabetes mellitus with foot ulcer; L97.509 - Non- pressure chronic ulcer of other part of unspecified foot with unspecified severity (2) Ulcer of right foot with fat layer exposed: CODE(S): L97.512 - Non-pressure chronic ulcer of other part of right foot with fat layer exposed (3) Diabetes mellitus type 1: CODE(S): E10.9 - Type 1 diabetes mellitus without complications QUALIFIERS: Diabetes mellitus complication detail: without coma Diabetes mellitus complication status: with hypoglycemia Qualified Code(s): E10.649 - Type 1 diabetes mellitus with hypoglycemia without coma (4) Delayed wound healing: CODE(S): T14.8XXD - Other injury of unspecified body region, subsequent encounter (5) Diabetic neuropathy: CODE(S): E11.40 - Type 2 diabetes mellitus with diabetic neuropathy, unspecified QUALIFIERS: Diabetes mellitus complication detail: diabetic polyneuropathy Diabetes mellitus type: type 1 Qualified Code(s): E10.42 - Type1 diabetes mellitus with diabetic polyneuropathy PLAN: Plan Patient seen and evaluated Ulceration subfourth metatarsal head of the right foot was debrided as noted in the clinical panel above. Ulceration measures 0.7 cm x 0.7 cm x 0.2 cm. EpiFixgraft #5 applied to the wound bed and dressed with Adaptic touch and anchored with Steri-Strips. Dry sterile dressing applied to the right foot. He is instructed to change outer dressings as needed. He is instructed to keep the dressings clean, dry, and intact and to not get the site wet. He was advised toutilize cast bag when showering to keep the dressings dry. Ulceration demonstrates reduction in size versus previous visit Recommended continued offloading in CAM boot to the right foot with plantar offloading padding. Surgical shoe also offloaded so that he may wear this when getting up to go to the bathroom at night. Otherwise will remain in cam boot with plantar offloading padding. Discussed proper diabetic diet and tight glycemic control to continue to aid in healing of his ulceration. Discussed adequate protein intake to continue to aid in wound healing. Bhaskar supplementation also recommended to aid in wound healing. Discussed signs of infection today. He was instructed if he notices increasing redness about the ulcerative site that moves up onto the foot or up his leg, if he notices purulent drainage from the wound site, if he notices increasing foul odor from the wound, or if he develops fever greater than 101 degree, or nausea,or vomiting, or chills, that these are signs of a progressing infection and he should report to the ED to receive IV antibiotics. He voices understanding of this. The following work up and care recommendations were made: Dressing: EpiFix graft, Adaptic touch, Steri-Strips, dry sterile dressing. Do not get wet. May change outer dressing as needed Wash: Do not get wet Tissue growth optimization: EpiFix Offload: Plantar offloading padding and CAM boot right foot Vascular: DP and PT pulses Palpable with adequate capillary fill time. Do not feel vascular status is impacting wound healing. Edema: No signs of pedal edema Infection: No signs of infection Pain: No pain secondary to diabetic peripheral polyneuropathy Host factors: DM type I with peripheral polyneuropathy, patient's himself as iatrogenic cause to ulcer, pressure I answered all the patient's questions. To return to the wound healing center in 1 week or call sooner if the patient has any questions or concerns. 09/04/23 0955 <Electronically signed by George Ambrocio DPM> Cosigner Signature (if applicable): CC: ~ Signed [facility] Work Phone: [phone] Progress note Author George Ambrocio [facility] August 28, 2023 9:44am Note Date/Time August 28, 2023 9:05am [facility] [address] [place] [address] Progress Note - Wound Care 08/28/23 0904 MR#: [id number] Acct: [id number] Name: TREVON RAMAN Rep #:[id number] 2 : 1985 38 From: George martinez DPM PCP: Dr. Magdiel Hurst MD Status:R EG RCR Location: History of Present Illness Date of Service: 08/28/23 Chief Complaint: right plantar foot ulcer and right leg ulcer History of Wound: This 38-year-old diabetic male presents to the wound healing center for a subfourth metatarsal ulceration of the right foot. 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 He states he tried to care for the ulceration for roughly 2 to 3 weeks in which it was not healing and presented to office. In office he did undergo debridement of the site continued offloading in cam boot however did not obtain his dressing supplies and was performing daily changes of wet to dry gauze. He was referred to the wound care center for applications of advanced wound care product. He states no pain secondary to diabetic peripheral polyneuropathy. He denies N/V/F/chills. He denies further complaints. Subjective Subjective This is a 38-year-old male who presents to the wound care center for follow-up of a plantar fourth metatarsal ulceration of the right foot. He is continued offloading site in CAM boot with plantar offloading padding. He has left grafting product in place to the wound bed and is changing outer dressing as needed. He denies constitutional symptoms. Denies further complaints. Objective Data Objective Data Vital Signs: Vital Signs Temp Pulse Resp BP O2 Del Method 97.1 F L 93 16 161/78 H Room Air 08/28/23 08:59 08/28/23 08:59 08/28/23 08:59 08/28/23 08:59 08/28/23 08:59 Oxygen Delivery Method Room Air Weight: 120.202 kg Body Mass Index (BMI) 35.9 Physical Exam Const alert, oriented x3 and no apparent distress General Appearance: cooperative HEENT normocephalic Eyes General Eye: normal appearance of both eyes Neck General: normal visual inspection Lymph Lymphatic: no lymphadenopathy noted and no lymphedema noted Resp normal respiratory effort Cardio regular rate and regular rhythm Extremity normal capillary refill, no joint enlargement, no calf tenderness and no pedal edema Extremity Narrative: DP and PT pulses palpable right foot. Capillary fill time less than 4 seconds to digits right foot. No pedal edema is noted. Dermatological: Skin is mildly xerotic to the plantar aspect. There is a ulceration subfourth metatarsal head with surrounding hyperkeratotic tissue and healthy appearing granular layer. There is scant serosanguineous drainage. No erythema, no purulent drainage, no malodor, no palpable fluctuance/bogginess noted, no visible abscess formation, no lymphangitic streaking. Musculoskeletal: Muscle strength 5 of 5 age-appropriate. Partial fifth ray amputation is noted to the right foot. Decreased range of motion of the ankle joint in dorsiflexion with the knee extended without pain or crepitus. Decreased range of motion of the first metatarsophalangeal joint without pain orcrepitus. Skin no rashes or lesions noted, skin turgor normal and no jaundice Neuro moves all extremities Neuro Narrative: Decreased protective sensation secondary to diabetic peripheral polyneuropathy Debridement Note Debridement Note Wound debrided: Subfourth metatarsal right foot Laterality: Right Wound Grade/Stage: Reynoso stage I Type of Debridement: Excisional debridement Anesthesia Used: 5% Lidocaine Gel Depth: Down to and including healthy tissue and in the subcutaneous layer Percentage of wound debrided: 100 Instrument Used: 5mm curette Tissue Removed: Fibrous, devitalized subcutaneous, biofilm, slough Severity: Fat Layer Exposed Amount of bleeding with debridement: Mild Bleeding Controlled with: Compression and gauze Patient tolerated procedure: Patient tolerated procedure well Post-Debridement Measurements and Additional Note: Post-Debridement Measurements/Treatment RENETTA - Nurse 1 - General Ulcer Assessment Start: 08/14/23 08:59 Freq: Status: Active Protocol: LORI Activity Type Activity Date Activity User E-sign Co-sign Detail Recorded Client Recorded Date Recorded By Document 08/14/23 09:00 DL Desktop 08/14/23 09:11 DL Document 08/21/23 08:56 KW Desktop 08/21/23 09:02 KW Edit Result 08/21/23 08:56 KW (1) Desktop 08/21/23 09:05 KW Document 08/28/23 08:59 KW Desktop 08/28/23 09:02 KW (1) Right Footwear Regular Shoe => Removable Cast => Walker/Walking => Boot 08/14/23 08/21/23 08/28/23 09:00 08:56 08:59 WC - Today's Visit Information Type of service Follow-up Visit Follow-up Visit Follow-up Visit (Physician/ACADEMIC REGISTRAR (Physician/ACADEMIC REGISTRAR (Physician/ACADEMIC REGISTRAR ) ) ) Arrival Mode Ambulatory Ambulatory Ambulatory Transfer Assistance None Patient Identification Verified (Name & Yes Yes Yes ) Patient Requires Transmission-Based No Precautions Finger Stick Blood Sugar(mg/dl) (if 232 142 indicated): Blood Sugar Stated by Stated by Patient Patient Height and Weight Body Mass Index (BMI) 35.9 35.9 35.9 BMI Classification Obese Obese Obese Vital Signs Temperature (97.8 F-99.1 F) 97.8 F 97.0 F L 97.1 F L Temperature Source Temporal Temporal Temporal Pulse Rate (60-100) 92 92 93 Pulse Location Monitor Monitor Monitor Respiratory Rate (12-18) 20 H 18 16 Respiratory rate source Observation Observation Observation Oxygen Delivery Method Room Air Room Air Blood Pressure (90/60-120/80) 122/60 H 129/74 H 161/78 H Blood Pressure Mean (mm Hg) 80 92 105 Source Monitor Monitor Monitor Position Semi-Fowlers Semi-Fowlers Blood Pressure Location Left Arm Left Arm History Since Last Visit- (Skip if this is Patient's initial visit) Have you changed medications since your No No No last visit? Any new allergies or adverse reactions No No No Had a fall/change in ADL's that may No No No increase risk of falls Signs or symptoms of abuse and/or No No No neglect since last visit Have you been in the hospital since your No No No last visit? Has dressing in place as prescribed Yes Yes Yes Has compression in place as prescribed Yes N/A No Has offloadiing in place as prescribed Yes Yes Yes Experienced any changes in pain level or No No No management Left Footwear Regular Shoe Regular Shoe Regular Shoe Right Footwear Removable Cast Removable Cast Removable Cast Walker/Walking Walker/Walking Walker/Walking Boot Boot Boot Pain Scale: 0-10 Numeric Is Patient Pain Free? Yes Yes Yes WC - Nurse 1 - General Ulcer Measurement Start: 08/14/23 08:59 Freq: Status: Active Protocol: Activity Type Activity Date Activity User E-sign Co-sign Detail Recorded Client Recorded Date Recorded By Document 08/14/23 09:00 DL Desktop 08/14/23 09:11 DL Document 08/21/23 08:56 KW Desktop 08/21/23 09:02 KW Edit Result 08/21/23 08:56 KW (1) Desktop 08/21/23 09:04 KW Document 08/28/23 08:59 KW Desktop 08/28/23 09:02 KW (1) #4 Lateral Right Plantar Foot - Combined with other wound => No - Current Size (cm) - Length => 0.8 - Current Size (cm) - Width => 0.9 - Current Size (cm) - Depth => 0.2 - Total Square Cm => 0.72 - Photo Taken => Yes - Epithelialization => Small 1-33% - Tunneling => No - Undermining/Tunneling => Yes - Undermining/Tunneling Starts (O'clock) => 12 - Undermining/Tunneling Ends (O'clock) => 3 - Maximum Distance (cm) => 0.4 - Circular Undermining => No - Exudate Amt => Small - Exudate Type => Serosanguineous - Wound Margin => Flat & Intact - Granulation Amt => Large (67-100%) - Granulation Quality => Red - Slough/Fibrin => Yes - Necrosis Amt => Small (1-33%) - Necrotic Tissue Type => Adherent Slough - Structure Exposed => N/A - Texture (Yu-wound Skin Appearance) => Assessed,Callus - Moisture (Yu-wound Skin Appearance) => Assessed - Color (Yu-wound Skin Appearance) => Assessed - Temperature (Yu-wound Skin => No Abnormality (Pt Appearance) => Warm) - Tenderness on Palpation (Yu-wound => No Skin Appearance) - Ulcer Cleansing => Wound Cleanser - Foul Odor after Cleansing => No - Anesthetic Used => 5% Lidocaine Gel 08/14/23 08/21/23 08/28/23 09:00 08:56 08:59 Wound Center Nurse 1 #4 Lateral Right Plantar Foot -Combined with other wound No -Current Size (cm) - Length 0.9 0.8 0.8 -Current Size (cm) - Width 1.2 0.9 0.9 -Current Size (cm) - Depth 0.2 0.2 0.2 -Total Square Cm 1.08 0.72 0.72 -Photo Taken Yes -Epithelialization Small 1-33% -Tunneling No -Undermining/Tunneling Yes Yes -Undermining/Tunneling Starts (O'clock 12 10 ) -Undermining/Tunneling Ends (O'clock) 3 4 -Maximum Distance (cm) 0.4 0.4 -Circular Undermining No -Exudate Amt Medium Small -Exudate Type Serosanguineous Serosanguineous -Wound Margin Distinct, Flat & Intact Thickened Outline Attached -Granulation Amt Large (67-100%) Large (67-100%) Large (67-100%) -Granulation Quality [place] -Slough/Fibrin Yes -Necrosis Amt Small (1-33%) Small (1-33%) -Necrotic Tissue Type Adherent Slough Adherent Slough -Structure Exposed N/A N/A -Texture (Yu-wound Skin Appearance) Callus,Scarring Assessed,Callus Assessed,Callus -Moisture (Yu-wound Skin Appearance) No Abnormality Assessed Maceration -Color (Yu-wound Skin Appearance) No Abnormality Assessed Assessed -Temperature (Yu-wound Skin No Abnormality No Abnormality No Abnormality Appearance) (Pt Warm) (Pt Warm) (Pt Warm) -Tenderness on Palpation (Yu-wound No No Skin Appearance) -Ulcer Cleansing Soap and Water Wound Cleanser Rinsed/ Irrigated with Saline -Foul Odor after Cleansing No No -Anesthetic Used 5% Lidocaine 5% Lidocaine 5% Lidocaine Gel Gel Gel Lower Limb Edema Present NA WC - Nurse 2 - General Ulcer CM Notes Start: 08/14/23 08:59 Freq: Status: Active Protocol: Activity Type Activity Date Activity User E-sign Co-sign Detail Recorded Client Recorded Date Recorded By Document 08/14/23 10:28 PL Tablet 08/14/23 10:30 PL Document 08/21/23 11:58 PL [id number] 08/21/23 12:00 PL Edit Result 08/21/23 11:58 PL (1) [id number] 08/21/23 12:02 PL (1) #4 Lateral Right Plantar Foot - Bioengineered Tissue No => Yes - Type of Bioengineered Tissue => Epifix 18mm Disc - Expiration Date => 04/13/28 - Product Lot Number => [id number] - Percent Used => 100 - Debridement - Subq, 1st 20sq cm Yes => No - Apply Skin Sub - 1st 25 sq cm - Feet => 1 - Epifix 18mm Disc => 3 08/14/23 08/21/23 10:28 11:58 Wound Center Nurse 2 #4 Lateral Right Plantar Foot -Time 09:15 09:15 -Correct Patient Yes Yes -Correct Side, Site, Position Yes Yes -Correct Procedure Yes Yes -Procedure Performed Yes Yes -Type of Procedure Debridement Debridement -Clinical Debridement Subcutaneous Subcutaneous -Tissue Removed Subcutaneous Subcutaneous -Post Debridement (cm) - Length 1.0 0.9 -Post Debridement (cm) - Width 1.0 1.0 -Post Debridement (cm) - Depth 0.1 0.1 -Total Square (Post) (cm) 1.00 0.90 -Area of Debridement (cm) - Length 1.0 0.9 -Area of Debridement (cm) - Width 1.0 1.0 -Total Square (Area) (cm) 1.00 0.90 -Tunneling No No -Undermining/Tunneling No No -Circular Undermining No No -Wound/Ulcer Outcome Not Healed Not Healed -Ulcer Cleansing Rinsed/ Rinsed/ Irrigated with Irrigated with Saline Saline -Foul Odor after Cleansing No No -Bioengineered Tissue Yes Yes -Type of Bioengineered Tissue Epifix 18mm Epifix 18mm Disc Disc -Expiration Date 03/14/28 04/13/28 -Product Lot Number [id number] -Percent Used 100 100 -Bleeding Controlled with Pressure Pressure -Treatment Response Procedure Procedure Tolerated Well Tolerated Well -Debridement - Subq, 1st 20sq cm No No -Apply Skin Sub - 1st 25 sq cm - Feet 1 1 -Epifix 18mm Disc 3 3 Pain Scale: 0-10 Numeric Is Patient Pain Free? Yes Yes - Nurse 3 - General Ulcer D/C NN Start: 08/14/23 08:59 Freq: Status: Active Protocol: Activity Type Activity Date Activity User E-sign Co-sign Detail Recorded Client Recorded Date Recorded By Document 08/14/23 09:33 DL Desktop 08/14/23 09:34 DL Document 08/21/23 09:26 KW Desktop 08/21/23 09:26 KW 08/14/23 08/21/23 09:33 09:26 Wound Care Center Nurse 3 #4 Lateral Right Plantar Foot -Ulcer Cleansing Not Cleansed -Foul Odor after Cleansing No -Other Dressing Epifix -Primary Dressing Covered/Secured with Dry Gauze & Dry Gauze & Roll Gauze, Roll Gauze, Secured with Secured with Tape Tape Treatment Response Procedure Tolerated Well Pain Scale: 0-10 Numeric Is Patient Pain Free? Yes Yes WC - Visit Discharge Discharge Condition Stable Stable Ambulatory Status Ambulatory Ambulatory Transportation Private Auto Private Auto Medication Reconcilliation completed & No provided to patient/care provider Clinical Summary of Care Provided Yes Assessment/Plan Assessment/Plan (1) Diabetes mellitus with foot ulcer: CODE(S): E11.621 - Type 2 diabetes mellitus with foot ulcer; L97.509 - Non- pressure chronic ulcer of other part of unspecified foot with unspecified severity (2) Ulcer of right foot with fat layer exposed: CODE(S): L97.512 - Non-pressure chronic ulcer of other part of right foot with fat layer exposed (3) Diabetes mellitus type 1: CODE(S): E10.9 - Type 1 diabetes mellitus without complications QUALIFIERS: Diabetes mellitus complication detail: without coma Diabetes mellitus complication status: with hypoglycemia Qualified Code(s): E10.649 - Type 1 diabetes mellitus with hypoglycemia without coma (4) Delayed wound healing: CODE(S): T14.8XXD - Other injury of unspecified body region, subsequent encounter (5) Diabetic neuropathy: CODE(S): E11.40 - Type 2 diabetes mellitus with diabetic neuropathy, unspecified QUALIFIERS: Diabetes mellitus complication detail: diabetic polyneuropathy Diabetes mellitus type: type 1 Qualified Code(s): E10.42 - Type1 diabetes mellitus with diabetic polyneuropathy PLAN: Plan Patient seen and evaluated Ulceration subfourth metatarsal head of the right foot was debrided as noted in the clinical panel above. Ulceration measures 1.0 cm x 0.9 cm x 0.2 cm. EpiFixgraft #4 applied to the wound bed and dressed with Adaptic touch and anchored with Steri-Strips. Dry sterile dressing applied to the right foot. He is instructed to change outer dressings as needed. He is instructed to keep the dressings clean, dry, and intact and to not get the site wet. He was advised toutilize cast bag when showering to keep the dressings dry. Ulceration demonstrates slight reduction in size versus previous visit Recommended continued offloading in CAM boot to the right foot with plantar offloading padding. Surgical shoe was offloaded so that he may wear this when getting up to go to the bathroom at night. Otherwise will remain in cam boot with plantar offloading padding. Discussed proper diabetic diet and tight glycemic control to continue to aid in healing of his ulceration. Discussed adequate protein intake to continue to aid in wound healing. Bhaskar supplementation also recommended to aid in wound healing. Discussed signs of infection today. He was instructed if he notices increasing redness about the ulcerative site that moves up onto the foot or up his leg, if he notices purulent drainage from the wound site, if he notices increasing foul odor from the wound, or if he develops fever greater than 101 degree, or nausea,or vomiting, or chills, that these are signs of a progressing infection and he should report to the ED to receive IV antibiotics. He voices understanding of this. The following work up and care recommendations were made: Dressing: EpiFix graft, Adaptic touch, Steri-Strips, dry sterile dressing. Do not get wet. May change outer dressing as needed Wash: Do not get wet Tissue growth optimization: EpiFix Offload: Plantar offloading padding and CAM boot right foot Vascular: DP and PT pulses Palpable with adequate capillary fill time. Do not feel vascular status is impacting wound healing. Edema: No signs of pedal edema Infection: No signs of infection Pain: No pain secondary to diabetic peripheral polyneuropathy Host factors: DM type I with peripheral polyneuropathy, patient's himself as iatrogenic cause to ulcer, pressure I answered all the patient's questions. To return to the wound healing center in 1 week or call sooner if the patient has any questions or concerns. 08/28/23 0966 <Electronically signed by George Ambrocio DPM> Cosigner Signature (if applicable): CC: ~ Signed [facility] Work Phone: [phone] 489-520702-08-2024 Progress note Author George Ambrocio [facility] August 21, 2023 9:27am Note Date/Time August 21, 2023 9 :24am [facility] [address] [place] [address] Progress Note - Wound Care 08/21/23 0923 MR#: [id number] Acct: [id number] Name: TREVON RAMAN Rep #:[id number] 3 : 1985 38 From: George martinez DPDot PCP: Dr. Magdiel Hurst MD Status:R EG RCR Location: History of Present Illness Date of Service: 08/21/23 Chief Complaint: right plantar foot ulcer and right leg ulcer History of Wound: This 38-year-old diabetic male presents to the wound healing center for a subfourth metatarsal ulceration of the right foot. 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 He states he tried to care for the ulceration for roughly 2 to 3 weeks in which it was not healing and presented to office. In office he did undergo debridement of the site continued offloading in cam boot however did not obtain his dressing supplies and was performing daily changes of wet to dry gauze. He was referred to the wound care center for applications of advanced wound care product. He states no pain secondary to diabetic peripheral polyneuropathy. He denies N/V/F/chills. He denies further complaints. Subjective Subjective This is a 38-year-old male who presents to the wound care center for follow-up of a plantar fourth metatarsal ulceration of the right foot. He is continued offloading site in CAM boot with plantar offloading padding. He has left grafting product in place to the wound bed and is changing outer dressing as needed. He denies constitutional symptoms. Denies further complaints. Objective Data Objective Data Vital Signs: Vital Signs Temp Pulse Resp BP O2 Del Method 97.0 F L 92 18 129/74 H Room Air 08/21/23 08:56 08/21/23 08:56 08/21/23 08:56 08/21/23 08:56 08/21/23 08:56 Oxygen Delivery Method Room Air Weight: 120.202 kg Body Mass Index (BMI) 35.9 Physical Exam Const alert, oriented x3 and no apparent distress General Appearance: cooperative HEENT normocephalic Eyes General Eye: normal appearance of both eyes Neck General: normal visual inspection Lymph Lymphatic: no lymphadenopathy noted and no lymphedema noted Resp normal respiratory effort Cardio regular rate and regular rhythm Extremity normal capillary refill, no joint enlargement, no calf tenderness and no pedal edema Extremity Narrative: DP and PT pulses palpable right foot. Capillary fill time less than 4 seconds to digits right foot. No pedal edema is noted. Dermatological: Skin is mildly xerotic to the plantar aspect. There is a ulceration subfourth metatarsal head with surrounding hyperkeratotic tissue and healthy appearing granular layer. There is scant serosanguineous drainage. No erythema, no purulent drainage, no malodor, no palpable fluctuance/bogginess noted, no visible abscess formation, no lymphangitic streaking. Musculoskeletal: Muscle strength 5 of 5 age-appropriate. Partial fifth ray amputation is noted to the right foot. Decreased range of motion of the ankle joint in dorsiflexion with the knee extended without pain or crepitus. Decreased range of motion of the first metatarsophalangeal joint without pain orcrepitus. Skin no rashes or lesions noted, skin turgor normal and no jaundice Neuro moves all extremities Neuro Narrative: Decreased protective sensation secondary to diabetic peripheral polyneuropathy Debridement Note Debridement Note Wound debrided: Subfourth metatarsal Laterality: Right Wound Grade/Stage: Reynoso stage I Type of Debridement: Excisional debridement Anesthesia Used: 5% Lidocaine Gel Depth: Down to and including healthy tissue and in the subcutaneous layer Percentage of wound debrided: 100 Instrument Used: 3mm curette Tissue Removed: Fibrous, devitalized subcutaneous, biofilm, slough Severity: Fat Layer Exposed Amount of bleeding with debridement: Mild Bleeding Controlled with: Compression and gauze Patient tolerated procedure: Patient tolerated procedure well Post-Debridement Measurements and Additional Note: Post-Debridement Measurements/Treatment WC - Nurse 1 - General Ulcer Assessment Start: 08/14/23 08:59 Freq: Status: Active Protocol: LORI Activity Type Activity Date Activity User E-sign Co-sign Detail Recorded Client Recorded Date Recorded By Document 08/14/23 09:00 DL Desktop 08/14/23 09:11 DL Document 08/21/23 08:56 KW Desktop 08/21/23 09:02 KW Edit Result 08/21/23 08:56 KW (1) Desktop 08/21/23 09:05 KW (1) Right Footwear Regular Shoe => Removable Cast => Walker/Walking => Boot 08/14/23 08/21/23 09:00 08:56 WC - Today's Visit Information Type of service Follow-up Visit Follow-up Visit (Physician/ACADEMIC REGISTRAR (Physician/ACADEMIC REGISTRAR ) ) Arrival Mode Ambulatory Ambulatory Transfer Assistance None Patient Identification Verified (Name & Yes Yes ) Patient Requires Transmission-Based No Precautions Finger Stick Blood Sugar(mg/dl) (if 232 142 indicated): Blood Sugar Stated by Stated by Patient Patient Height and Weight Body Mass Index (BMI) 35.9 35.9 BMI Classification Obese Obese Vital Signs Temperature (97.8 F-99.1 F) 97.8 F 97.0 F L Temperature Source Temporal Temporal Pulse Rate (60-100) 92 92 Pulse Location Monitor Monitor Respiratory Rate (12-18) 20 H 18 Respiratory rate source Observation Observation Oxygen Delivery Method Room Air Blood Pressure (90/60-120/80) 122/60 H 129/74 H Blood Pressure Mean (mm Hg) 80 92 Source Monitor Monitor Position Semi-Fowlers Blood Pressure Location Left Arm History Since Last Visit- (Skip if this is Patient's initial visit) Have you changed medications since your No No last visit? Any new allergies or adverse reactions No No Had a fall/change in ADL's that may No No increase risk of falls Signs or symptoms of abuse and/or No No neglect since last visit Have you been in the hospital since your No No last visit? Has dressing in place as prescribed Yes Yes Has compression in place as prescribed Yes N/A Has offloadiing in place as prescribed Yes Yes Experienced any changes in pain level or No No management Left Footwear Regular Shoe Regular Shoe Right Footwear Removable Cast Removable Cast Walker/Walking Walker/Walking Boot Boot Pain Scale: 0-10 Numeric Is Patient Pain Free? Yes Yes WC - Nurse 1 - General Ulcer Measurement Start: 08/14/23 08:59 Freq: Status: Active Protocol: Activity Type Activity Date Activity User E-sign Co-sign Detail Recorded Client Recorded Date Recorded By Document 08/14/23 09:00 DL Desktop 08/14/23 09:11 DL Document 08/21/23 08:56 KW Desktop 08/21/23 09:02 KW Edit Result 08/21/23 08:56 KW (1) Desktop 08/21/23 09:04 KW (1) #4 Lateral Right Plantar Foot - Combined with other wound => No - Current Size (cm) - Length => 0.8 - Current Size (cm) - Width => 0.9 - Current Size (cm) - Depth => 0.2 - Total Square Cm => 0.72 - Photo Taken => Yes - Epithelialization => Small 1-33% - Tunneling => No - Undermining/Tunneling => Yes - Undermining/Tunneling Starts (O'clock) => 12 - Undermining/Tunneling Ends (O'clock) => 3 - Maximum Distance (cm) => 0.4 - Circular Undermining => No - Exudate Amt => Small - Exudate Type => Serosanguineous - Wound Margin => Flat & Intact - Granulation Amt => Large (67-100%) - Granulation Quality => Red - Slough/Fibrin => Yes - Necrosis Amt => Small (1-33%) - Necrotic Tissue Type => Adherent Slough - Structure Exposed => N/A - Texture (Yu-wound Skin Appearance) => Assessed,Callus - Moisture (Yu-wound Skin Appearance) => Assessed - Color (Yu-wound Skin Appearance) => Assessed - Temperature (Yu-wound Skin => No Abnormality (Pt Appearance) => Warm) - Tenderness on Palpation (Yu-wound => No Skin Appearance) - Ulcer Cleansing => Wound Cleanser - Foul Odor after Cleansing => No - Anesthetic Used => 5% Lidocaine Gel 08/14/23 08/21/23 09:00 08:56 Wound Center Nurse 1 #4 Lateral Right Plantar Foot -Combined with other wound No -Current Size (cm) - Length 0.9 0.8 -Current Size (cm) - Width 1.2 0.9 -Current Size (cm) - Depth 0.2 0.2 -Total Square Cm 1.08 0.72 -Photo Taken Yes -Epithelialization Small 1-33% -Tunneling No -Undermining/Tunneling Yes -Undermining/Tunneling Starts (O'clock 12 ) -Undermining/Tunneling Ends (O'clock) 3 -Maximum Distance (cm) 0.4 -Circular Undermining No -Exudate Amt Medium Small -Exudate Type Serosanguineous Serosanguineous -Wound Margin Distinct, Flat & Intact Outline Attached -Granulation Amt Large (67-100%) Large (67-100%) -Granulation Quality [place] Red -Slough/Fibrin Yes -Necrosis Amt Small (1-33%) Small (1-33%) -Necrotic Tissue Type Adherent Slough Adherent Slough -Structure Exposed N/A N/A -Texture (Yu-wound Skin Appearance) Callus,Scarring Assessed,Callus -Moisture (Yu-wound Skin Appearance) No Abnormality Assessed -Color (Yu-wound Skin Appearance) No Abnormality Assessed -Temperature (Yu-wound Skin No Abnormality No Abnormality Appearance) (Pt Warm) (Pt Warm) -Tenderness on Palpation (Yu-wound No No Skin Appearance) -Ulcer Cleansing Soap and Water Wound Cleanser -Foul Odor after Cleansing No No -Anesthetic Used 5% Lidocaine 5% Lidocaine Gel Gel Lower Limb Edema Present NA WC - Nurse 2 - General Ulcer CM Notes Start: 08/14/23 08:59 Freq: Status: Active Protocol: Activity Type Activity Date Activity User E-sign Co-sign Detail Recorded Client Recorded Date Recorded By Document 08/14/23 10:28 PL Tablet 08/14/23 10:30 PL 08/14/23 10:28 Wound Center Nurse 2 #4 Lateral Right Plantar Foot -Time 09:15 -Correct Patient Yes -Correct Side, Site, Position Yes -Correct Procedure Yes -Procedure Performed Yes -Type of Procedure Debridement -Clinical Debridement Subcutaneous -Tissue Removed Subcutaneous -Post Debridement (cm) - Length 1.0 -Post Debridement (cm) - Width 1.0 -Post Debridement (cm) - Depth 0.1 -Total Square (Post) (cm) 1.00 -Area of Debridement (cm) - Length 1.0 -Area of Debridement (cm) - Width 1.0 -Total Square (Area) (cm) 1.00 -Tunneling No -Undermining/Tunneling No -Circular Undermining No -Wound/Ulcer Outcome Not Healed -Ulcer Cleansing Rinsed/ Irrigated with Saline -Foul Odor after Cleansing No -Bioengineered Tissue Yes -Type of Bioengineered Tissue Epifix 18mm Disc -Expiration Date 03/14/28 -Product Lot Number [id number] -Percent Used 100 -Bleeding Controlled with Pressure -Treatment Response Procedure Tolerated Well -Debridement - Subq, 1st 20sq cm No -Apply Skin Sub - 1st 25 sq cm - Feet 1 -Epifix 18mm Disc 3 Pain Scale: 0-10 Numeric Is Patient Pain Free? Yes - Nurse 3 - General Ulcer D/C NN Start: 08/14/23 08:59 Freq: Status: Active Protocol: Activity Type Activity Date Activity User E-sign Co-sign Detail Recorded Client Recorded Date Recorded By Document 08/14/23 09:33 DL Desktop 08/14/23 09:34 DL 08/14/23 09:33 Wound Care Center Nurse 3 #4 Lateral Right Plantar Foot -Ulcer Cleansing Not Cleansed -Foul Odor after Cleansing No -Other Dressing Epifix -Primary Dressing Covered/Secured with Dry Gauze & Roll Gauze, Secured with Tape Treatment Response Procedure Tolerated Well Pain Scale: 0-10 Numeric Is Patient Pain Free? Yes WC - Visit Discharge Discharge Condition Stable Ambulatory Status Ambulatory Transportation Private Auto Assessment/Plan Assessment/Plan (1) Diabetes mellitus with foot ulcer: CODE(S): E11.621 - Type 2 diabetes mellitus with foot ulcer; L97.509 - Non- pressure chronic ulcer of other part of unspecified foot with unspecified severity (2) Ulcer of right foot with fat layer exposed: CODE(S): L97.512 - Non-pressure chronic ulcer of other part of right foot with fat layer exposed (3) Diabetes mellitus type 1: CODE(S): E10.9 - Type 1 diabetes mellitus without complications QUALIFIERS: Diabetes mellitus complication detail: without coma Diabetes mellitus complication status: with hypoglycemia Qualified Code(s): E10.649 - Type 1 diabetes mellitus with hypoglycemia without coma (4) Delayed wound healing: CODE(S): T14.8XXD - Other injury of unspecified body region, subsequent encounter (5) Diabetic neuropathy: CODE(S): E11.40 - Type 2 diabetes mellitus with diabetic neuropathy, unspecified QUALIFIERS: Diabetes mellitus complication detail: diabetic polyneuropathy Diabetes mellitus type: type 1 Qualified Code(s): E10.42 - Type1 diabetes mellitus with diabetic polyneuropathy PLAN: Plan Patient seen and evaluated Ulceration subfourth metatarsal head of the right foot was debrided as noted in the clinical panel above. Ulceration measures 0.9 cm x 1.0 cm x 0.2 cm. EpiFixgraft #3 applied to the wound bed and dressed with Adaptic touch and anchored with Steri-Strips. Dry sterile dressing applied to the right foot. He is instructed to change outer dressings as needed. He is instructed to keep the dressings clean, dry, and intact and to not get the site wet. He was advised toutilize cast bag when showering to keep the dressings dry. Ulceration demonstrates slight reduction in size versus previous visit Recommended continued offloading in CAM boot to the right foot with plantar offloading padding. Discussed proper diabetic diet and tight glycemic control to continue to aid in healing of his ulceration. Discussed adequate protein intake to continue to aid in wound healing. Bhaskar supplementation also recommended to aid in wound healing. Discussed signs of infection today. He was instructed if he notices increasing redness about the ulcerative site that moves up onto the foot or up his leg, if he notices purulent drainage from the wound site, if he notices increasing foul odor from the wound, or if he develops fever greater than 101 degree, or nausea,or vomiting, or chills, that these are signs of a progressing infection and he should report to the ED to receive IV antibiotics. He voices understanding of this. The following work up and care recommendations were made: Dressing: EpiFix graft, Adaptic touch, Steri-Strips, dry sterile dressing. Do not get wet. May change outer dressing as needed Wash: Do not get wet Tissue growth optimization: EpiFix Offload: Plantar offloading padding and CAM boot right foot Vascular: DP and PT pulses Palpable with adequate capillary fill time. Do not feel vascular status is impacting wound healing. Edema: No signs of pedal edema Infection: No signs of infection Pain: No pain secondary to diabetic peripheral polyneuropathy Host factors: DM type I with peripheral polyneuropathy, patient's himself as iatrogenic cause to ulcer, pressure I answered all the patient's questions. To return to the wound healing center in 1 week or call sooner if the patient has any questions or concerns. 08/21/23 5882 <Electronically signed by George Ambrocio DPM> Cosigner Signature (if applicable): CC: ~ Signed [facility] Work Phone: [phone] 849-698302-01-2024 Progress note Author George Ambrocio [facility] August 14, 2023 10:33am Note Date/Time August 14, 2023 9 :00am [facility] [address] [place] [address] Progress Note - Wound Care 08/14/23 0858 MR#: [id number] Acct: [id number] Name: TREVON RAMAN Rep #:[id number] 2 : 1985 38 From: George martinez DPM PCP: Dr. Magdiel Hurst MD Status:R EG RCR Location: History of Present Illness Date of Service: 08/14/23 Chief Complaint: right plantar foot ulcer and right leg ulcer History of Wound: This 38-year-old diabetic male presents to the wound healing center for a subfourth metatarsal ulceration of the right foot. 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 He states he tried to care for the ulceration for roughly 2 to 3 weeks in which it was not healing and presented to office. In office he did undergo debridement of the site continued offloading in cam boot however did not obtain his dressing supplies and was performing daily changes of wet to dry gauze. He was referred to the wound care center for applications of advanced wound care product. He states no pain secondary to diabetic peripheral polyneuropathy. He denies N/V/F/chills. He denies further complaints. Subjective Subjective This is a 38-year-old male who presents to the wound care center for follow-up of a plantar fourth metatarsal ulceration of the right foot. He is continued offloading site in CAM boot. He has left grafting product in place to the woundbed and is changing outer dressing as needed. He denies constitutional symptoms. Denies further complaints. Objective Data Objective Data Vital Signs: Vital Signs Temp Pulse Resp BP 96.6 F L 94 18 122/75 H 08/14/23 00:34 08/14/23 00:34 08/14/23 00:34 08/14/23 00:34 Weight: 120.202 kg Body Mass Index (BMI) 35.9 Physical Exam Const alert, oriented x3 and no apparent distress General Appearance: cooperative HEENT normocephalic Eyes General Eye: normal appearance of both eyes Neck General: normal visual inspection Lymph Lymphatic: no lymphadenopathy noted and no lymphedema noted Resp normal respiratory effort Cardio regular rate and regular rhythm Extremity normal capillary refill, no joint enlargement, no calf tenderness and no pedal edema Extremity Narrative: DP and PT pulses palpable right foot. Capillary fill time less than 4 seconds to digits right foot. No pedal edema is noted. Dermatological: Skin is mildly xerotic to the plantar aspect. There is a ulceration subfourth metatarsal head with surrounding hyperkeratotic tissue and healthy appearing granular layer. There is scant serosanguineous drainage. No erythema, no purulent drainage, no malodor, no palpable fluctuance/bogginess noted, no visible abscess formation, no lymphangitic streaking. Musculoskeletal: Muscle strength 5 of 5 age-appropriate. Partial fifth ray amputation is noted to the right foot. Decreased range of motion of the ankle joint in dorsiflexion with the knee extended without pain or crepitus. Decreased range of motion of the first metatarsophalangeal joint without pain orcrepitus. Skin no rashes or lesions noted, skin turgor normal and no jaundice Neuro moves all extremities Neuro Narrative: Decreased protective sensation secondary to diabetic peripheral polyneuropathy Debridement Note Debridement Note Wound debrided: Subfourth metatarsal right foot Laterality: Right Wound Grade/Stage: Reynoso stage I Type of Debridement: Excisional debridement Anesthesia Used: 5% Lidocaine Gel Depth: Down to and including healthy tissue and in the subcutaneous layer Percentage of wound debrided: 100 Instrument Used: #15 blade Tissue Removed: Fibrous, devitalized subcutaneous, biofilm, slough Severity: Fat Layer Exposed Amount of bleeding with debridement: Mild Bleeding Controlled with: Compression and gauze Patient tolerated procedure: Patient tolerated procedure well Assessment/Plan Assessment/Plan (1) Diabetes mellitus with foot ulcer: CODE(S): E11.621 - Type 2 diabetes mellitus with foot ulcer; L97.509 - Non- pressure chronic ulcer of other part of unspecified foot with unspecified severity (2) Ulcer of right foot with fat layer exposed: CODE(S): L97.512 - Non-pressure chronic ulcer of other part of right foot with fat layer exposed (3) Diabetes mellitus type 1: CODE(S): E10.9 - Type 1 diabetes mellitus without complications QUALIFIERS: Diabetes mellitus complication detail: without coma Diabetes mellitus complication status: with hypoglycemia Qualified Code(s): E10.649 - Type 1 diabetes mellitus with hypoglycemia without coma (4) Delayed wound healing: CODE(S): T14.8XXD - Other injury of unspecified body region, subsequent encounter (5) Diabetic neuropathy: CODE(S): E11.40 - Type 2 diabetes mellitus with diabetic neuropathy, unspecified QUALIFIERS: Diabetes mellitus complication detail: diabetic polyneuropathy Diabetes mellitus type: type 1 Qualified Code(s): E10.42 - Type1 diabetes mellitus with diabetic polyneuropathy PLAN: Plan Patient seen and evaluated Ulceration subfourth metatarsal head of the right foot was debrided as noted in the clinical panel above. Ulceration measures 1.0 cm x 1.0 cm x 0.2 cm. EpiFixgraft #2 applied to the wound bed and dressed with Adaptic touch and anchored with Steri-Strips. Dry sterile dressing applied to the right foot. He is instructed to change outer dressings as needed. He is instructed to keep the dressings clean, dry, and intact and to not get the site wet. He was advised toutilize cast bag when showering to keep the dressings dry. Recommended continued offloading in cam boot to the right foot. His cam boot isold and worn out and thus I am recommending he go to the office for new cam bootto be dispensed so that he may continue offloading. Also discussed continued offloading padding to be applied to the right foot/CAM boot about the ulcerativesite. Discussed proper diabetic diet and tight glycemic control to continue to aid in healing of his ulceration. Discussed adequate protein intake to continue to aid in wound healing. Bhaskar supplementation also recommended to aid in wound healing. Discussed signs of infection today. He was instructed if he notices increasing redness about the ulcerative site that moves up onto the foot or up his leg, if he notices purulent drainage from the wound site, if he notices increasing foul odor from the wound, or if he develops fever greater than 101 degree, or nausea,or vomiting, or chills, that these are signs of a progressing infection and he should report to the ED to receive IV antibiotics. He voices understanding of this. The following work up and care recommendations were made: Dressing: EpiFix graft, Adaptic touch, Steri-Strips, dry sterile dressing. Do not get wet. May change outer dressing as needed Wash: Do not get wet Tissue growth optimization: EpiFix Offload: Plantar offloading padding and cam boot right foot Vascular: DP and PT pulses Palpable with adequate capillary fill time. Do not feel vascular status is impacting wound healing. Edema: No signs of pedal edema Infection: No signs of infection Pain: No pain secondary to diabetic peripheral polyneuropathy Host factors: DM type I with peripheral polyneuropathy, patient's himself as iatrogenic cause to ulcer, pressure I answered all the patient's questions. To return to the wound healing center in 1 week or call sooner if the patient has any questions or concerns. 08/14/23 1033 <Electronically signed by George Ambrocio DPM> Cosigner Signature (if applicable): CC: ~ Signed [facility] Work Phone: [phone] 378-139001-25-2024 History and physical note Author George [facility] August 07, 2023 9:44am Note Date/Time August 07, 2023 9 :19am [facility] [address] [place] [address] H&P Exam - Wound Care 08/07/23 0919 MR#: [id number] Acct: [id number] Name: TREVON RAMAN Rep #:[id number] : 1985 38 From: George martinez DPM PCP: Dr. Magdiel Hurst MD Status:R CIRO RCR Location: History of Present Illness Date of Service: 08/07/23 Chief Complaint: right plantar foot ulcer and right leg ulcer History of Wound: This 38-year-old diabetic male presents to the wound healing center for a subfourth metatarsal ulceration of the right foot. 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 He states he tried to care for the ulceration for roughly 2 to 3 weeks in which it was not healing and presented to office. In office he did undergo [facility] did not [facility] his dressing supplies and was performing daily changes of wet to dry gauze. He was referred to the wound care center for applications of advanced wound care product. He states no pain secondary to diabetic peripheral polyneuropathy. He denies N/V/F/chills. He denies further complaints. [facility] Medical History Diabetic neuropathy Diabetic retinopathy associated with type 1 diabetes mellitus Type 1 diabetes mellitus Home Medications blood sugar diagnostic (FreeStyle Lite Strips) #150 ea 10/05/21 [Rx Last Taken Unknown] lancets 28 gauge (FreeStyle Lancets) #150 ea 09/06/22 [Rx Last Taken Unknown] FreeStyle Monse 3 Sensor (blood-glucose sensor) #2 ea 04/14/23 [Rx Last Taken Unknown] insulin aspart U-100 100 unit/mL (3 mL) subcutaneous pen (Novolog FlexPen U-100 Insulin aspart) 40 unit (0.4 mL) subcut TID #36 mL 05/08/23 [Rx Last Taken Unknown] insulin glargine 100 unit/mL (3 mL) subcutaneous pen (Lantus Solostar U-100 Insulin) 42 unit (0.42 mL) subcut DAILY #15 mL 05/08/23 [Rx Last Taken Unknown] pen needle, diabetic 32 gauge x 5/32 (BD Ultra-Fine Amy Pen Needle) #200 ea 05/08/23 [Rx Last Taken Unknown] Allergy/AdvReac Type Severity Reaction Status Date / Time cefprozil [From Cefzil] Allergy Unknown Unknown Verified 05/08/23 09:52 Environmental Allergies: Allergy Hives Verified 05/08/23 09:52 Uncoded Family History Father Heart disease Mother Diabetes Other Hypertension Thyroid disorder Surgical History History of amputation of lesser toe of right foot Social History Smoking Status: Former smoker alcohol intake: never substance use type: does not use what type of physical activity do you participate in: other details: Sometimes ROS Constitutional Constitutional: Denies anorexia, change in weight, chills, fatigue or fever(s) Eyes Eyes: Denies blurry vision, change in vision or double vision ENT HEENT: Denies dysphagia, nasal congestion, nasal discharge or sore throat Cardiovascular Cardiovascular: Denies chest pain, claudication or palpitations Respiratory/Chest Respiratory/Chest: Denies cough, shortness of breath at rest or wheezing Gastrointestinal Gastrointestinal: Denies abdominal pain, constipation, diarrhea, nausea or vomiting Genitourinary Genitourinary: Denies dysuria, urinary frequency, urinary hesitancy or urinary urgency Musculoskeletal Musculoskeletal: Denies joint pain, joint stiffness or joint swelling Integumentary Integumentary: Denies lesions, pruritus or rash Neurologic Neurologic: Denies dizziness, numbness or seizures Psychiatric Psychiatric: Denies anxiety or depression Endocrine Endocrinology: Denies cold intolerance, heat intolerance or polyuria Hematologic/Lymphatic Hematologic/Lymphatic: Denies easy bleeding or easy bruising Vital Signs Vital Signs Vital Signs: 08/07/23 08:51 Temperature 96.6 F L Temperature Source Temporal Pulse Rate 94 Respiratory Rate 18 Blood Pressure 122/75 H Blood Pressure Mean 90 Blood Pressure Source Monitor Blood Pressure Position Semi-Fowlers Blood Pressure Location Left Arm Oxygen Delivery Method Room Air Weight Weight: 120.202 kg Body Mass Index (BMI) 35.9 Physical Exam Const alert, oriented x3 and no apparent distress General Appearance: cooperative HEENT normocephalic Eyes Eyes Narrative: Wears glasses General Eye: normal appearance of both eyes Neck General: normal visual inspection Lymph Lymphatic: no lymphadenopathy noted and no lymphedema noted Resp normal respiratory effort Cardio regular rate and regular rhythm Extremity normal capillary refill, no joint enlargement, no calf tenderness and no pedal edema Extremity Narrative: DP and PT pulses palpable right foot. Capillary fill time less than 4 seconds to digits right foot. No pedal edema is noted. Dermatological: Skin is mildly xerotic to the plantar aspect. There is a ulceration subfourth metatarsal head with surrounding hyperkeratotic tissue and healthy appearing granular layer. There is scant serosanguineous drainage. No erythema, no purulent drainage, no malodor, no palpable fluctuance/bogginess noted, no visible abscess formation, no lymphangitic streaking. Musculoskeletal: Muscle strength 5 of 5 age-appropriate. Partial fifth ray amputation is noted to the right foot. Decreased range of motion of the ankle joint in dorsiflexion with the knee extended without pain or crepitus. Decreased range of motion of the first metatarsophalangeal joint without pain orcrepitus. Skin no rashes or lesions noted, skin turgor normal and no jaundice Neuro moves all extremities Neuro Narrative: Decreased protective sensation secondary to diabetic peripheral polyneuropathy Debridement Note Debridement Note Wound debrided: Subfourth metatarsal head Laterality: Right Wound Grade/Stage: Reynoso stage I Type of Debridement: Excisional debridement Anesthesia Used: 5% Lidocaine Gel Depth: Down to and including healthy tissue and in the subcutaneous layer Percentage of wound debrided: 100 Instrument Used: #15 blade Tissue Removed: Fibrous, devitalized subcutaneous, biofilm, slough Severity: Fat Layer Exposed Amount of bleeding with debridement: Mild Bleeding Controlled with: Compression and gauze Patient tolerated procedure: Patient tolerated procedure well Post-Debridement Measurements and Additional Note: Post-Debridement Measurements/Treatment - Nurse 1 - General Ulcer Assessment Start: 08/07/23 08:51 Freq: Status: Active Protocol: LORI Activity Type Activity Date Activity User E-sign Co-sign Detail Recorded Client Recorded Date Recorded By Document 08/07/23 08:51 KW Desktop 08/07/23 09:00 KW 08/07/23 08:51 - Today's Visit Information Type of service Initial Visit Arrival Mode Ambulatory Patient Identification Verified (Name & Yes ) Finger Stick Blood Sugar(mg/dl) (if 172 indicated): Blood Sugar Stated by Patient Height and Weight Height 6 ft Weight 120.202 kg Weight in Pounds 265.0 lbs Body Mass Index (BMI) 35.9 BMI Classification Obese BSA - Shalonda 2.40 Vital Signs Temperature (97.8 F-99.1 F) 96.6 F L Temperature Source Temporal Pulse Rate (60-100) 94 Pulse Location Monitor Respiratory Rate (12-18) 18 Respiratory rate source Observation Oxygen Delivery Method Room Air Blood Pressure (90/60-120/80) 122/75 H Blood Pressure Mean 90 Source Monitor Position Semi-Fowlers Blood Pressure Location Left Arm History Since Last Visit- (Skip if this is Patient's initial visit) Left Footwear Regular Shoe Right Footwear Removable Cast Walker/Walking Boot Pain Scale: 0-10 Numeric Is Patient Pain Free? Yes WC - Nurse 1 - General Ulcer Measurement Start: 08/07/23 08:51 Freq: Status: Active Protocol: Activity Type Activity Date Activity User E-sign Co-sign Detail Recorded Client Recorded Date Recorded By Document 08/07/23 08:51 KW Desktop 08/07/23 09:00 KW 08/07/23 08:51 Wound Center Nurse 1 #4 Lateral Right Plantar Foot -Current Size (cm) - Length 0.9 -Current Size (cm) - Width 1.1 -Current Size (cm) - Depth 0.1 -Total Square Cm 0.99 -Date of Last Picture (Recall this 08/07/23 field) -Photo Taken Yes -Exudate Amt Medium -Exudate Type Serosanguineous -Wound Margin Distinct, Outline Attached -Granulation Amt Large (67-100%) -Granulation Quality Red -Necrosis Amt Small (1-33%) -Necrotic Tissue Type Adherent Slough -Texture (Yu-wound Skin Appearance) Assessed -Moisture (Yu-wound Skin Appearance) Assessed, Maceration -Color (Yu-wound Skin Appearance) Assessed -Temperature (Yu-wound Skin No Abnormality Appearance) (Pt Warm) -Ulcer Cleansing Rinsed/ Irrigated with Saline -Foul Odor after Cleansing No -Anesthetic Used 5% Lidocaine Gel Assessment/Plan Assessment/Plan (1) Ulcer of right foot with fat layer exposed: CODE(S): L97.512 - Non-pressure chronic ulcer of other part of right foot with fat layer exposed (2) Delayed wound healing: CODE(S): T14.8XXD - Other injury of unspecified body region, subsequent encounter (3) Diabetic neuropathy: CODE(S): E11.40 - Type 2 diabetes mellitus with diabetic neuropathy, unspecified QUALIFIERS: Diabetes mellitus type: type 1 Diabetes mellitus complication detail: diabetic polyneuropathy Qualified Code(s): E10.42 - Type 1diabetes mellitus with diabetic polyneuropathy (4) Diabetes mellitus type 1: CODE(S): E10.9 - Type 1 diabetes mellitus without complications QUALIFIERS: Diabetes mellitus complication status: with hypoglycemia Diabetes mellitus complication detail: without coma Qualified Code(s): E10.649 - Type 1 diabetes mellitus with hypoglycemia without coma (5) Diabetes mellitus with foot ulcer: CODE(S): E11.621 - Type 2 diabetes mellitus with foot ulcer; L97.509 - Non- pressure chronic ulcer of other part of unspecified foot with unspecified severity PLAN: Plan Patient seen and evaluated Patient had been applying wet-to-dry dressings as he was unable to obtain Prismadressing secondary to cost. He had been followed in the office and did have debridement over the course of 2 weeks with ulceration present for 5 weeks total. Wound has not made significant progress and reduction in size with wet-to-dry dressings and offloading. He was referred to the wound center for applications of advanced wound care products. Ulceration subfourth metatarsal head of the right foot was debrided as noted in the clinical panel above. Ulceration measures 1.0 cm x 1.0 cm x 0.2 cm. EpiFixgraft #1 applied to the wound bed and dressed with Adaptic touch and anchored with Steri-Strips. Dry sterile dressing applied to the right foot. He is instructed to change outer dressings as needed. He is instructed to keep the dressings clean, dry, and intact and to not get the site wet. He was advised toutilize cast bag when showering to keep the dressings dry. Recommended continued offloading in cam boot to the right foot. His cam boot isold and worn out and thus I am recommending he go to the office for new cam bootto be dispensed so that he may continue offloading. Also discussed continued offloading padding to be applied to the right foot/cam boot about the ulcerativesite. Discussed proper diabetic diet and tight glycemic control to continue to aid in healing of his ulceration. Discussed adequate protein intake to continue to aid in wound healing. Bhaskar supplementation also recommended to aid in wound healing. Discussed signs of infection today. He was instructed if he notices increasing redness about the ulcerative site that moves up onto the foot or up his leg, if he notices purulent drainage from the wound site, if he notices increasing foul odor from the wound, or if he develops fever greater than 101 degree, or nausea,or vomiting, or chills, that these are signs of a progressing infection and he should report to the ED to receive IV antibiotics. He voices understanding of this. The following work up and care recommendations were made: Dressing: EpiFix graft, Adaptic touch, Steri-Strips, dry sterile dressing. Do not get wet. May change outer dressing as needed Wash: Do not get wet Tissue growth optimization: EpiFix Offload: Plantar offloading padding and cam boot right foot Vascular: DP and PT pulses Palpable with adequate capillary fill time. Do not feel vascular status is impacting wound healing. Edema: No signs of pedal edema Infection: No signs of infection Pain: No pain secondary to diabetic peripheral polyneuropathy Host factors: DM type I with peripheral polyneuropathy, patient's himself as iatrogenic cause to ulcer, pressure I answered all the patient's questions. To return to the wound healing center in 1 week or call sooner if the patient has any questions or concerns. 08/07/23 0944 <Electronically signed by George Ambrocio DPM> Cosigner Signature (if applicable): CC: ~ Signed [facility] Work Phone: [phone] 208-325209-01-2023 History of Present illness Narrative* Joan Chávez RT(R) - 03/14/2023 3:50 PM EDT Radiology Service Progress Note PATIENT NAME: Trevon Raman DATE OF SERVICE: March 14, 2023 TIME: 3:46 PM PATIENT IDENTITY VERIFICATION COMPLETED USING TWO (2) IDENTIFIERS: Name and Date of confirmedby patient verbally. FALL SCREENING: Has the patient had 2 falls in the last year or 1 fall with injury or currently using an Ambulatory Assistive Device (Walker, Cane, Wheelchair, Crutches, etc.)? No PATIENT GENDER DATA: Male PATIENT RELEVANT IMPLANT DATA REVIEWED: Yes RADIOLOGY DEPARTMENT: General X-ray: Exam(s) Completed: Lower Extremity X- Ray(s): Foot, Right and Wt. Bearing PERIPHERAL IV DATA: Not applicable SIGNED BY: RT Jorge(R) March 14, 2023 3:46 PM [facility] Discharge instructions Patient Education 11/07/2022 15:19:31 Cellulitis Skin Infection Cellulitis Cellulitis is an infection of the deep layers of skin. A break in the skin, such as a cut or scratch, can let bacteria under the skin. If the bacteria get to deep layers of the skin, it can be serious. If not treated, cellulitis can get into the bloodstream and lymph nodes. The infection can then spread throughout the body. This causes serious illness. Cellulitis causes the affected skin to become red, swollen, warm, and sore. The reddened areas havea visible border. An open sore may leak fluid (pus). You may have a fever, chills, and pain. Cellulitis is treated with antibiotics taken for 7 to 10 days. An open sore may be cleaned and covered with cool wet gauze. Symptoms should get better 1 to 2 days after treatment is started. Make sure to take all the antibiotics for the full number of days until they are gone. Keep taking the medicine even if your symptoms go away. Home care Follow these tips: Limit the use of the part of your body with cellulitis. If the infection is on your leg, keep your leg raised while sitting. This will help to reduce swelling. Take all of the antibiotic medicine exactly as directed until it is gone. Do not miss any doses, especially during the first 7 days. Don t stop taking the medicine when your symptoms get better. Keep the affected area clean and dry. Wash your hands with soap and warm water before and after touching your skin. Anyone else who touches your skin should also wash his or her hands. Don't share towels. Follow-up care Follow up with your healthcare provider, or as advised. If your infection does not go away on the first antibiotic, your healthcare provider will prescribe a different one. When to seek medical advice Call your healthcare provider right away if any of these occur: Red areas that spread Swelling or pain that gets worse Fluid leaking from the skin (pus) Fever higher of 100.4 F (38.0 C) or higher after 2 days on antibiotics [id number] [employer]. [address] [place] [address], [place] [address]. All rights reserved. This information is not intended as a substitute for professional medical care. Always follow yourhealthcare professional's instructions. Follow Up Care 11/07/2022 15:07:00 With:MAGDIEL HURST MD Address: [address] [place] [address]- When:2-4 days [facility] 04-27-2023 Note Discharge Instructions Thank you for allowing [facility] to assist you with your healthcare needs. The following is importantdischarge information regarding your hospital visit. Diagnosis from Today's Visit Cellulitis Leg pain-swelling What to Do Next Instructions from Your Care Team No qualifying data available. Post Acute Orders No qualifying data available. You Need to Schedule the Following Appointments Follow Up with MAGDIEL HURST MD When Within 2-4 days Where: [address] [place] [address]- Allergies cephalosporins Medications Please ask your primary doctor or pharmacist before taking any other medication not listed, including over the counter drugs, herbal medications, vitamins and or supplements as they may interact withyour home medications. What How Much When Why Instructions Last Dose New doxycycline (doxycycline hyclate 100 mg oral capsule) 1 cap by mouth Two (2) times a day Cellulitis Duration: 10 Days Printed Prescription Unchanged insulin aspart (Novolog) ([employer] NovoLOG Flexpen 100 units/ mL injectable solution) See instructions Unchanged insulin glargine (Lantus Solostar Pen 100 units/ mL 3 mL Pen) INJECT 45 UNITS SUBCUTANEOUSLY ONCE DAILY Please take this list to your next doctor s visit. Bring all medications you take, including over the counter medications, herbals and other supplements with you to your doctor s visit. Patients and families are reminded to discard old lists and to update any records with all medication providers or retail pharmacies. Medication Leaflets doxycycline (oral/injection) (DOX i RIGO hansen) Acticlate, Adoxa, Alodox, Avidoxy, Doryx, Mondoxyne NL, Monodox, Morgidox, Okebo, Oracea, Oraxyl, Targadox, Vibramycin What is the most important information I should know about doxycycline? You should not take this medicine if you are allergic to any tetracycline antibiotic. Children younger than 8 years old should use doxycycline only in cases of severe or life-threatening conditions. This medicine can cause permanent yellowing or graying of the teeth in children Using doxycycline during could harm the unborn baby or cause permanent tooth discoloration later in the baby's life. What is doxycycline? Doxycycline is a tetracycline antibiotic that Doxycycline is used to treat many different bacterial infections, such as acne, urinary tract infections, intestinal infections, eye infections, gonorrhea, chlamydia, periodontitis (gum disease), andothers. Doxycycline is also used to treat blemishes, bumps, and acne-like lesions caused by rosacea. Doxycycline will not treat facial redness caused by rosacea. Some forms of doxycycline are used to prevent malaria, to treat anthrax, or to treat infections caused by mites, ticks, or lice. Doxycycline may also be used for purposes not listed in this medication guide. What should I discuss with my healthcare provider before taking doxycycline? You should not take this medicine if you are allergic to doxycycline or other tetracycline antibiotics such as demeclocycline, minocycline, tetracycline, or tigecycline. Tell your doctor if you have ever had: liver disease; kidney disease; asthma or sulfite allergy; increased pressure inside your skull; or if you also take isotretinoin, seizure medicine, or a blood thinner such as warfarin (Coumadin). If you are using doxycycline to treat gonorrhea, your doctor may test you to make sure you do not also have syphilis, another sexually transmitted disease. Taking this medicine during may affect tooth and bone development in the unborn baby. Taking doxycycline during the last half of can cause permanent tooth discoloration later in the baby's life. Tell your doctor if you are or if you become . Doxycycline can make control pills less effective. Ask your doctor about using a non-hormonalbirth control (condom, diaphragm with spermicide) to prevent . Doxycycline can pass into breast milk and may affect bone and tooth development in a nursing infant. Do not breastfeed while you are taking doxycycline. Doxycycline can cause permanent yellowing or graying of the teeth in children younger than 8 years old. Children should use doxycycline only in cases of severe or life-threatening conditions such as anthrax or [place] spotted fever. The benefit of treating a serious condition may outweigh any risks to the child's tooth development. How should I take doxycycline? Follow all directions on your prescription label and read all medication guides or instruction sheets. Use the medicine exactly as directed. Take doxycycline with a full glass of water. Drink plenty of liquids while you are taking doxycycline. Read and carefully follow any Instructions for Use provided with your medicine. Ask your doctor or pharmacist if you do not understand these instructions. Most brands of doxycyline may be taken with food or milk if the medicine upsets your stomach. Different brands of doxycycline may have different instructions about taking them with or without food. Take Oracea on an empty stomach, at least 1 hour before or 2 hours after a meal. You may need to split a doxycycline tablet to get the correct dose. Follow your doctor's instructions. Swallow a delayed-release capsule or tablet whole. Do not crush, chew, break, or open it. Measure liquid medicine with the dosing syringe provided, or with a special dose-measuring spoon ormedicine cup. If you do not have a dose-measuring device, ask your pharmacist for one. If you take doxycycline to prevent malaria: Start taking the medicine 1 or 2 days before entering an area where malaria is common. Continue taking the medicine every day during your stay and for at least 4 weeks after you leave the area. Doxycycline is usually given by injection only if you are unable to take the medicine by mouth. A healthcare provider will give you this injection as an infusion into a vein. Use this medicine for the full prescribed length of time, even if your symptoms quickly improve. Skipping doses can increase your risk of infection that is resistant to medication. Doxycycline will not treat a viral infection such as the flu or a common cold. Store at room temperature away from moisture, heat, and light. Throw away any unused medicine after the expiration date on the label has passed. Using doxycycline can cause damage to your kidneys. What happens if I miss a dose? Take the medicine as soon as you can, but skip the missed dose if it is almost time for your next dose. Do not take two doses at one time. What happens if I overdose? Seek emergency medical attention or call the Poison Help line at . What should I avoid while taking doxycycline? Do not take iron supplements, multivitamins, calcium supplements, antacids, or laxatives within 2 hours before or after taking doxycycline. Avoid taking any other antibiotics with doxycycline unless your doctor has told you to. Doxycycline could make you sunburn more easily. Avoid sunlight or tanning beds. Wear protective clothing and use sunscreen (SPF 30 or higher) when you are outdoors. Antibiotic medicines can cause diarrhea, which may be a sign of a new infection. If you have diarrhea that is watery or bloody, call your doctor. Do not use anti-diarrhea medicine unless your doctor tells you to. What are the possible side effects of doxycycline? Get emergency medical help if you have signs of an allergic reaction (hives, difficult breathing, swelling in your face or throat) or a severe skin reaction (fever, sore throat, burning in your eyes,skin pain, red or purple skin rash that spreads and causes blistering and peeling). Seek medical treatment if you have a serious drug reaction that can affect many parts of your body.Symptoms may include: skin rash, fever, swollen glands, flu- like symptoms, muscle aches, severe weakness, unusual bruising, or yellowing of your skin or eyes. This reaction may occur several weeks after you began using doxycycline. Call your doctor at once if you have: severe stomach pain, diarrhea that is watery or bloody; throat irritation, trouble swallowing; chest pain, irregular heart rhythm, feeling short of breath; little or no urination; low white blood cell counts--fever, chills, swollen glands, body aches, weakness, pale skin, easy bruising or bleeding; increased pressure inside the skull--severe headaches, ringing in your ears, dizziness, nausea, vision problems, pain behind your eyes; or signs of liver or pancreas problems--loss of appetite, upper stomach pain (that may spread to your back), tiredness, nausea or vomiting, fast heart rate, dark urine, jaundice (yellowing of the skin or eyes). Common side effects may include: nausea, vomiting, upset stomach, loss of appetite; mild diarrhea; skin rash or itching; darkened skin color; or vaginal itching or discharge. This is not a complete list of side effects and others may occur. Call your doctor for medical advice about side effects. You may report side effects to FDA at 6-614-HIU-4527. What other drugs will affect doxycycline? Sometimes it is not safe to use certain medications at the same time. Some drugs can affect your blood levels of other drugs you take, which may increase side effects or make the medications less effective. Other drugs may affect doxycycline, including prescription and [id number] medicines, vitamins, and herbal products. Tell your doctor about all your current medicines and any medicine you start or stop using. Where can I get more information? Your pharmacist can provide more information about doxycycline. Remember, keep this and all other medicines out of the reach of children, never share your medicines with others, and use this medication only for the indication prescribed. Every effort has been made to ensure that the information provided by [employer]. ('[employer]') is accurate, up-to-date, and complete, but no guarantee is made to that effect. Drug information contained herein may be time sensitive. [employer] information has been compiled for use by healthcare practitioners and consumers in the [place] and therefore [employer] does not warrant that uses outside of the [place] are appropriate, unless specifically indicated otherwise. [employer] drug information does not endorse drugs, diagnose patients or recommend therapy. [employer] drug information isan informational resource designed to assist licensed healthcare practitioners in caring for their p atients and/or to serve consumers viewing this service as a supplement to, and not a substitute for, the expertise, skill, knowledge and judgment of healthcare practitioners. The absence of a warningfor a given drug or drug combination in no way should be construed to indicate that the drug or drug combination is safe, effective or appropriate for any given patient. [employer] does not assume any responsibility for any aspect of healthcare administered with the aid of information [employer] provides. The information contained herein is not intended to cover all possible uses, directions, precautions, warnings, drug interactions, allergic reactions, or adverse effects. If you have questions about the drugs you are taking, check with your doctor, nurse or pharmacist. Copyright 4109-2611 [employer]. Version: 21.04. Revision Date: 05/17/2020. Education Materials Cellulitis Cellulitis is an infection of the deep layers of skin. A break in the skin, such as a cut or scratch, can let bacteria under the skin. If the bacteria get to deep layers of the skin, it can be serious. If not treated, cellulitis can get into the bloodstream and lymph nodes. The infection can then spread throughout the body. This causes serious illness. Cellulitis causes the affected skin to become red, swollen, warm, and sore. The reddened areas havea visible border. An open sore may leak fluid (pus). You may have a fever, chills, and pain. Cellulitis is treated with antibiotics taken for 7 to 10 days. An open sore may be cleaned and covered with cool wet gauze. Symptoms should get better 1 to 2 days after treatment is started. Make sure to take all the antibiotics for the full number of days until they are gone. Keep taking the medicine even if your symptoms go away. Home care Follow these tips: Limit the use of the part of your body with cellulitis. If the infection is on your leg, keep your leg raised while sitting. This will help to reduce swelling. Take all of the antibiotic medicine exactly as directed until it is gone. Do not miss any doses, especially during the first 7 days. Don t stop taking the medicine when your symptoms get better. Keep the affected area clean and dry. Wash your hands with soap and warm water before and after touching your skin. Anyone else who touches your skin should also wash his or her hands. Don't share towels. Follow-up care Follow up with your healthcare provider, or as advised. If your infection does not go away on the first antibiotic, your healthcare provider will prescribe a different one. When to seek medical advice Call your healthcare provider right away if any of these occur: Red areas that spread Swelling or pain that gets worse Fluid leaking from the skin (pus) Fever higher of 100.4 F (38.0 C) or higher after 2 days on antibiotics 7742-0461 [employer]. [address] [place] [address]. All rights reserved. This information is not intended as a substitute for professional medical care. Always follow yourhealthcare professional's instructions. Additional Information VACCINATE! IT SAVES LIVES! Members of the community who have not yet received the COVID-19 vaccine and would like to receive it can visit one of [facility] vaccine clinics. There are many vaccine clinic locations within the [facility]. For locations and available times, please visit www.gettheshot.coronavirus.[place].gov/. It is important to note that some COVID mobile vaccine clinics are held outdoors and may be canceled in rainy or stormy conditions. To learn more about pediatric vaccinations (ages 5-11), we invite you to visit the [facility] webpage. https://www.[facility].org/pages/8293-Jchia-Ugzgpjoocqa-Xktixgtejl-Vyppl-Exn stions.htmlTo learn more about the COVID-19 vaccine, we invite you to visit the CDC website for a list of frequently asked questions. https://www.cdc.gov/coronavirus/2019-ncov/vaccines/faq.html [facility] Patient Portal Access Instructions: Stay connected with your healthcare team and access your personal medical information anytime with the [facility] Patient Portal. If you would like a full copy of your medical records please contact the [facility] Medical Records Department Friday through Friday between 8a.m. and 4:30p.m. Please follow the directions below to access the portal: 1.Access the email account you provided upon registration to the [facility].2.Look for an invitation email from [facility].3.Open the email and access the invitation link: Accept Invitation to [facility]4.Fill in the required lucero to create your account. Sign into [email or web address] with your username and password that you created in the above steps to stay up to date. You can then view a summary of results, a summary of your visits, and the ability to download your summaries to your computer or send the information securely to a physician. Remember that your healthcare information is confidential, so carefully consider who you will allow to register on the [facility] Patient Portal for access to your information. You can also access the [facility] Patient Portal on the [employer] jay. Simply click on Health Records under [employer] and then click on the [employer] logo. HOW TO SAFELY DISPOSE OF PRESCRIPTION MEDICATIONS Please use one of the following methods to safely dispose of your unused medications. 1.Use a drug disposal kit: the drug disposal pouch allows you to safely discard your old and unuseddrugs. Ask your nurse to give you one when you are discharged.2.Visit a local take-back location: Many local pharmacies and police departments have programs that collect old and unwanted prescriptiondrugs. Call your local pharmacy or go to http://[employer]/6C1Xk5r to find one close to you.3.Make use of household items: Use cat litter or old coffee grounds to dispose medications if other options arenot available. Mix your drugs with these household products, seal them in an airtight container andthrow it into the garbage. Call [facility]: [phone] to be sure your drugs can be disposed of in this way. Some medicines may require a different approach.4.Never flush your medications down the toilet. IF YOU HAVE BEEN PRESCRIBED AN OPIOIDS FOR PAIN If you have been prescribed an opioid (such as hydrocodone, oxycodone or morphine), it is critical to understand the possible side effects and risks of opioid pain medications. Even when taken as directed, opioids can have several side effects including: Tolerance, meaning you might need to take more of a medication for the same pain relief. Nausea, vomiting and/or constipation. Sleepiness, dizziness, dry mouth, confusion, depression or itching. Physical dependence, meaning you have withdrawal symptoms when a medication is stopped ? this can develop within a few days. KNOW YOUR RESPONSIBILITIES It is important to know exactly how much and how often to take the opioid pain medications you are prescribed. Never take opioids in higher amounts or more often than prescribed. Do not combine opioids with alcohol or other drugs that cause drowsiness, such as benzodiazepines, also known as benzos,including diazepam and alprazolam, muscle relaxants or sleep aids. Never sell or share prescriptionopioids. This is illegal. Store opioids in a secure place and out of reach of others (including children, family, friends and visitors). The last page(s) of this document has been signed and retained as a CHART COPY Signatures Patient Education Materials Cellulitis Skin Infection Medication Leaflets doxycycline (oral/injection) My discharge plan and instructions have been reviewed and explained to me and I,TREVON RAMAN understand my current condition and have read and understand these discharge instructions. I have received a written copy of the plan/instructions. If I have questions, I am aware that I should contact my doctor. Patient/Deli Clerk Signature: Date/Time: Relationship to Patient: Witness Name/Signature: Date/Time: [facility]04-27-2023 History of Present illness Narrative * Iwona Mcduffie APRN.[facility] - 11/07/2022 1:31 PM EDT Patient came in with complaints of right leg swelling and redness. Also has an open wound about an inch and a half long. Patient says he has been in bed for several days with a fever. Patient says hehas not really eaten because he has not been hungry. Patient says his sugars were in the 300s even when he was not eating. Patient has a history of a toe amputation on the same side. Due to symptoms and history patient is being sent to the emergency room for full evaluation. Patient was okay with this care plan. documented in [facility]22 Miscellaneous Notes* Telephone Encounter - Sona Leos LPN - 01/23/2022 10:07 AM EDT Pt returned call & was notified of results & instructions. Pt is requesting an Rx for paxlovid so a VV was scheduled today. Sona Leos LPN * Telephone Encounter - Melissa Parker LPN - 01/23/2022 9:37 AM EDT Left a message for pt to call the office and ask to speak to a nurse. Melissa Parker LPN * Telephone Encounter - Chandra Whitaker APRN.CNP - 01/23/2022 9:01 AM EDT Please inform patient that he tested positive for COVID-19. Follow CDC return to work guidelines. Continue supportive therapies as discussed at visit Chandra Whitaker APRN.CNP documented in this encounterSy[facility]07-11-2022 History of Present illness Narrative* Andres Cheatham MD - 01/21/2022 7:35 AM EDT Patient presents with: Cough: congestion, shortness of breath, fever, headache and fatigue x 1 day HPI: Feeling sick since yesterday. Positive symptoms: Cough, Shortness of breath/chest tightness, mild Nasal Congestion, Rhinorrhea, post-nasal drainage, Fever (103), shakes/chills, Malaise, body aches, Fatigue, Headache, ear pressure(L>R), Negative symptoms: Nausea, Vomiting, Diarrhea, loss of taste/smell, OTC: Tylenol Has not had COVID-19 disease or vaccine. PAST MEDICAL HISTORY Diagnosis Date Nonproliferative diabetic retinopathy of both eyes ([facility]) 05/31/2019 Type I (juvenile type) diabetes mellitus without mention of complication, not stated as uncontrolled ([facility]) Uncontrolled type 1 diabetes mellitus with diabetic neuropathy, with long-term current use of insulin 03/05/2016 MEDICATIONS: Current Outpatient Medications Medication Sig Insulin [place], Disposable, (BD ULTRAFINE III MINI PEN) 31 gauge x 3/16 ndle USE 1 NEEDLE FOR EACH DOSE 6 TIMES DAILY DULoxetine (CYMBALTA) 30 mg capsule Take 1 capsule by mouth once daily. insulin glargine (LANTUS SOLOSTAR, BASAGLAR KWIKPEN) 100 unit/mL (3 mL) inpn Administer 45 units atbedtime insulin aspart U-100 (NOVOLOG FLEXPEN U-100 INSULIN) 100 unit/mL (3 mL) inpn Inject 32 units with meals up to 100 units daily. Plus sliding scale correction up to 32 units/day lancets (FREESTYLE LANCETS) 28 gauge misc Test blood sugar(s) 6x daily. Dx: e10.65. Insulin: Yes blood sugar diagnostic (FREESTYLE LITE STRIPS) test strip Test blood sugar(s) 6 times daily. Dx: e10.65. Insulin: Yes albuterol HFA (PROAIR HFA) 90 mcg/actuation inhaler Inhale 2 Puffs as instructed every 4 hours as needed for Wheezing/Shortness of Breath. (Patient not taking: Reported on 01/21/2022 ) No current facility-administered medications for this visit. ALLERGIES: ALLERGIES Allergen Reactions Cefzil [Cefprozil] Hives Glue [Other] Penicillins GI Upset VITALS: BP 118/68 Pulse (!) 128 Temp (!) 38 C (100.4 F) Resp 20 Wt 113.9 kg (251 lb) SpO2 98% BMI 34.04 kg/m PHYSICAL EXAM: GEN: alert, somewhat ill appearing HEENT: PERRL, EOMI, conjunctiva clear Ears: canals clear. TMs without erythema, bulge, or effusion Sinuses: non-tender frontal sinus, non-tender maxillary sinuses Throat: moist mucous membranes, no erythema, no exudate Neck: supple, no thyromegaly, no lymphadenopathy HEART: regular rate and rhythm, no murmurs LUNGS: clear to auscultation, no wheezes or crackles, no increased WOB Component Latest Ref Rng & Units 06/23/2019 Hemoglobin A1C (POCT) 4.2 - 5.6 % 7.6 (A) ASSESSMENT/PLAN: 1. URI, acute - ICD9: 465.9, ICD10: J06.9 (primary diagnosis) 2. Suspected COVID-19 virus infection - ICD9: V01.79, ICD10: Z20.822 - suspect COVID-19, differential includes influenza and other viral URI. - Discussed supportive care treatment with home isolation (reviewed guidelines), rest, cold medicine, and analgesia. - Red flags to seek further treatment include chest pain, shortness of breath, and lethargy; in theER if severe. - COVID WITH FLUA+B, ROUTINE He should contact his equipment lead if positive to discuss antiviral treatment. Andres Cheatham MD documented in this encounterSy[facility]06-08-2022 History of Present illness Narrative* Marc Clement APRN.[facility] REGISTRAR - 12/19/2021 7:49 PM EDT Images from the original note were not included. Subjective HPI HPI Trevon Raman is a 36 year old male who presents today for CC of left leg injury. This started 1 week ago. Has tried nothing for relief. Symptoms are worsened by nothing. Risk factors type 1 diabetic. Has been hospitalized for sepsis in past. Denies fever. .Patient presents with: Leg Injury: L rose hit at work x1 week, possible cellulitis PAST MEDICAL HISTORY Diagnosis Date Nonproliferative diabetic retinopathy of both eyes ([facility]) 05/31/2019 Type I (juvenile type) diabetes mellitus without mention of complication, not stated as uncontrolled ([facility]) Uncontrolled type 1 diabetes mellitus with diabetic neuropathy, with long-term current use of insulin 03/05/2016 PAST SURGICAL HISTORY Procedure Laterality Date NONE ALLERGIES Cefzil [Cefprozil], Glue [Other], and Penicillins MEDICATIONS albuterol HFA (PROAIR HFA) 90 mcg/actuation inhaler Inhale 2 Puffs as instructed every 4 hours as needed for Wheezing/Shortness of Breath. Insulin [place], Disposable, (BD ULTRAFINE III MINI PEN) 31 gauge x 3/16 ndle USE 1 NEEDLE FOR EACH DOSE 6 TIMES DAILY DULoxetine (CYMBALTA) 30 mg capsule Take 1 capsule by mouth once daily. insulin glargine (LANTUS SOLOSTAR, BASAGLAR KWIKPEN) 100 unit/mL (3 mL) inpn Administer 45 units atbedtime insulin aspart U-100 (NOVOLOG FLEXPEN U-100 INSULIN) 100 unit/mL (3 mL) inpn Inject 32 units with meals up to 100 units daily. Plus sliding scale correction up to 32 units/day lancets (FREESTYLE LANCETS) 28 gauge misc Test blood sugar(s) 6x daily. Dx: e10.65. Insulin: Yes blood sugar diagnostic (FREESTYLE LITE STRIPS) test strip Test blood sugar(s) 6 times daily. Dx: e10.65. Insulin: Yes doxycycline monohydrate 100 mg tablet Take 1 tablet by mouth twice daily for 10 days. FAMILY HISTORY Problem Relation Age of Onset Diabetes Mother Hyperlipidemia Mother COPD Father Coronary Artery Disease Father 35 Cancer Father lung Obesity Sister morbid obesity Thyroid Sister hypothyroid Depression Sister Heart Maternal Grandmother Stroke Maternal Grandmother Dementia Paternal Grandfather Diabetes Daughter Coronary Artery Disease Paternal Uncle Social History Tobacco Use Smoking status: Former Smoker Packs/day: 0.50 Types: Cigarettes Quit date: 07/22/2019 Years since quittin.4 Smokeless tobacco: Never Used Vaping Use Vaping Use: current everyday user Substance Use Topics Alcohol use: No Drug use: No ROS Objective Blood pressure 120/82, pulse 84, temperature (!) 35.9 C (96.7 F), resp. rate 20, weight 115.7 kg (255 lb), SpO2 96 %. Physical Exam Constitutional: General: He is not in acute distress. Appearance: He is not toxic-appearing or diaphoretic. HENT: Head: Normocephalic and atraumatic. Pulmonary: Effort: Pulmonary effort is normal. No accessory muscle usage or respiratory distress. Skin: Neurological: Mental Status: He is alert and oriented to person, place, and time. ASSESSMENT/PLAN: 1. Skin infection - ICD9: 686.9, ICD10: L08.9 - Begin treatment with doxycycline - No lymphangetic streaking, this was defined for patient to watch for and to seek medical care immediately if appears - Follow up for recheck in three days with pcp Urgent f/u for severe/worsening s/s. - DOXYCYCLINE MONOHYDRATE 100 MG TABLET - MUPIROCIN 2 % TOPICAL OINTMENT Agrees to plan Marc Clement APRN.CNP documented in this encounterSy[facility]05-03-2021 History of Present illness Narrative* Joan Chávez RT(R) - 11/13/2020 11:00 AM EDT Radiology Service Progress Note PATIENT NAME: Trevon Raman DATE OF SERVICE: November 13, 2020 TIME: 11:28 AM PATIENT IDENTITY VERIFICATION COMPLETED USING TWO (2) IDENTIFIERS: Name and Date of confirmedby patient verbally. FALL SCREENING: Has the patient had 2 falls in the last year or 1 fall with injury or currently using an Ambulatory Assistive Device (Walker, Cane, Wheelchair, Crutches, etc.)? No PATIENT GENDER DATA: Male PATIENT RELEVANT IMPLANT DATA REVIEWED: Yes RADIOLOGY DEPARTMENT: General X-ray: Exam(s) Completed: Lower Extremity X- Ray(s): Foot, Left and Wt. Bearing PERIPHERAL IV DATA: Not applicable SIGNED BY: RT Jorge(Gertrude) November 13, 2020 11:28 AM documented in this encounterSycamore [facility] Center01-23-2013 History of Past illness Narrative* Problem Noted Date Resolved Date Weight loss, unintentional 08/05/201206/16 Uncontrolled type 1 diabetes mellitus 08/22/2005 03/05/2016 documented as of this encounter (statuses as of 12/19/2021) [facility] of Past illness Narrative* Problem Noted Date Resolved Date Weight loss, unintentional 08/05/201206/16 Uncontrolled type 1 diabetes mellitus 08/22/2005 03/05/2016 documented as of this encounter (statuses as of 01/21/2022) [facility] of Past illness Narrative* Problem Noted Date Resolved Date Weight loss, unintentional 08/05/201206/16 Uncontrolled type 1 diabetes mellitus 08/22/2005 03/05/2016 documented as of this encounter (statuses as of 01/23/2022) [facility] of Past illness Narrative* Problem Noted Date Resolved Date Weight loss, unintentional 08/05/201206/16 Uncontrolled type 1 diabetes mellitus 08/22/2005 03/05/2016 documented as of this encounter (statuses as of 11/07/2022) [facility] of [facility] illness Narrative* Problem Noted Date Diagnosed Date Resolved Date Weight loss, unintentional 08/05/2012 1 08/17/2015 Uncontrolled type 1 diabetes mellitus 08/22/2005 03/05/2016 documented as of this encounter (statuses as of 09/24/2023) [facility] of Past illness Narrative* Problem Noted Date Diagnosed Date Resolved Date Weight loss, unintentional 08/05/2012 1 08/17/2015 Uncontrolled type 1 diabetes mellitus 08/22/2005 03/05/2016 documented as of this encounter (statuses as of 09/25/2023) [facility] CenterConsult note Author Mike Riojas [facility] Note Date/Time April 28, 2025 1 0:44pm [facility] Medical Records Department [address] [place] [address] Pharmacokinetic/Renal -Consult 04/28/25 2243 MR#: [id number] Acct: [id number] Name: TREVON RAMAN Rep #:[id number] : 1985 40 From: Mike Hines od PCP: Dr. Josh Meier MD Status:ADM IN Y Location: ICU CVICU20 1-1 Consult Antibiotic Management Pharmacy has been consulted to manage selected antibiotic: Vancomycin Type of Intervention Type of Consult: New start Labs Labs: Sodium 130 mmol/L (133-145) L 04/28/25 17:41 Potassium 5.6 mmol/L (3.3-5.1) H 04/28/25 17:41 Chloride 94 mmol/L (98-108) L 04/28/25 17:41 Carbon Dioxide 18.7 mmol/L (21.0-32.0) L 04/28/25 17:41 Anion Gap 17 (5-15) H 04/28/25 17:41 BUN 27 mg/dL (4-19) H 04/28/25 17:41 Creatinine 1.69 mg/dL (0.70-1.20) H 04/28/25 17:41 Est GFR (MDRD) Non-Af 52 (>60) L 04/28/25 17:41 BUN/Creatinine Ratio 15.8 RATIO (10-20) 04/28/25 17:41 Glucose 295 mg/dL (70-99) H 04/28/25 17:41 Dosing Weight Weight used for dosin.3 kg Estimated Creatinine Clearance Estimated Creatinine Clearance: 76.67 Goal Trough Goal Trough: 15-20 mcg/mL Pharmacy Plan for Drug Dosing Pharmacy Plan for Drug Dosing: Pharmacy Service will continue to monitor and adjust dosing as required. ER DOSE 2GM GIVEN 04/28 @ 1924. START 1750MG Q12H AND DRAW TROUGH PRIOR TO 4TH DOSE Follow-Up Labs Follow-Up Labs: Trough: Vancomycin Date/Time Labs Ordered Labs to be done on [date and time ordered]: 04/30 @ 0700 04/28/25 6078 <Electronically signed by Mike hall> Date _ Mike Romeo Signature (if applicable): Date CC: ~ Signed [facility] Work Phone: Consult note Author Deangelo Cruz [facility] Note Date/Time April 29, 2025 1 :47pm [facility] Medical Records Department [address] [place] [address] Consultation - Infectious Dx 04/29/25 1342 MR#: [id number] Acct: [id number] Name: TREVON RAMAN Rep #:[id number] : 1985 40 From: Deangelo maradiaga MD PCP: Dr. Josh Meier MD Status:ADM IN Location: [facility] [id number] Assessment & Plan Assessment/Plan (1) Discitis: (2) Acute kidney injury: (3) Sepsis: PLAN: Concern for lumbar discitis, R toe infection, L elbow infection. Podiatryand ortho consulted. CT pending, bcx pending. May need IR aspiration of disc and fluid sent for culture. Will narrow to vanc/unasyn. will follow, thank you (4) Type 1 diabetes mellitus with diabetic polyneuropathy: HPI Consult Data Date of Consult: 04/29/25 HPI Narrative Reason for Consultation: discitis HPI Narrative: TREVON RAMAN, is a 40 M with h/o DM, presented with 1-2 months progressive lower back pain, associated with chills, sweats, fatigue. No known inciting event. R toe with some redness and swelling but no pain or drainage. Now also with several days L elbow pain, redness, swelling. Has been seeing chiropractor, MRI done, showed discitis, admitted to [facility]. Started on vanc/zosyn, feeling a little better. Full ROS performed and neg except as noted above. [facility] Medical History Hypertriglyceridemia Wears glasses Insulin dependent diabetes mellitus Back pain Migraine headache Syncope Dietary restriction Vapes nicotine containing substance History of pain when walking History of edema Diabetic retinopathy associated with type 1 diabetes mellitus Diabetic neuropathy Osteomyelitis of foot, right, acute DKA (diabetic ketoacidoses) Cellulitis of leg Sepsis Type 1 diabetes mellitus Home Medications ?Medication ?Instructions ?Recorded ?Last Taken ?Type blood sugar diagnostic (FreeStyle #150 ea 10/05/21 Unk nown Rx Lite Strips) lancets 28 gauge (FreeStyle #150 ea 09/06/22 Unknown R x Lancets) blood sugar diagnostic (True #100 ea 09/13/24 Unknown Rx Metrix Glucose Test Strip) pen needle, diabetic 32 gauge x #200 ea 10/12/24 Unkno wn Rx (BD Ultra-Fine Amy Pen Needle) blood-glucose sensor (FreeStyle #6 ea 03/11/25 Unknown Rx Monse 3 Plus Sensor device) insulin glargine 100 unit/mL (3 40 unit (0.4 mL) subcu t QHS #15 mL 03/11/25 04/27/25 Rx mL) subcutaneous pen (Lantus Solostar U-100 Insulin) meloxicam 15 mg tablet 15 mg PO QDAY #30 tabs 04/1904/28/25 Rx tizanidine 6 mg capsule 6 mg PO TID PRN muscle spast icity 04/19/25 04/28/25 Rx #30 caps acetaminophen 500 mg tablet 1,000 mg PO Q6H PRN back p ain 04/28/25 04/28/25 History (Acetaminophen Extra Strength) fenofibrate nanocrystallized 145 145 mg PO DAILY 04/28 Unknown History mg tablet insulin aspart U-100 100 unit/mL See Protocol subcut T ID 04/28/25 Unknown History (3 mL) subcutaneous pen (Novolog FlexPen U-100 Insulin aspart) Allergy/AdvReac Type Severity Reaction Status Date / Time cefprozil (From Cefzil) Allergy Unknown Unknown Verified 04/28/25 17:08 Environmental Allergies: Allergy Hives Verified 04/28/25 17:08 Uncoded Family History Father Heart disease Hypertension Mother Diabetes Thyroid disorder Surgical History History of amputation of lesser toe of right foot Social History household members: spouse current occupational status: unemployed Smoking Status: Former smoker Electronic Cigarette Use: with nicotine quit status: considering quitting alcohol intake: never substance use type: does not use what type of physical activity do you participate in: other details: Sometimes do you feel safe at home: Yes Physical Exam Const alert, oriented x3 and no apparent distress General Appearance: cooperative HEENT normocephalic and head/scalp atraumatic Eyes PERRL and EOMs intact bilaterally Neck supple and No nodes Resp normal air movement and clear to auscultation bilaterally Cardio regular rate and regular rhythm GI soft to palpation, non-tender and non-distended Extremity Extremity Narrative: L elbow redness/swelling/tenderness. Tender over L spine Skin Skin Narrative: R 2nd toe with swelling, redness, dry ulceration Neuro CN's II-XII intact bilaterally Lab / Micro Data Attestation: I reviewed the patient's lab results. 04/29/25 04:30 04/29/25 04:30 Labs: Laboratory Results - last 24 hr 04/28/25 17:41: WBC 14.0 H, RBC 4.13 L, Hgb 11.9 L, Hct 35.7 L, MCV 86.4, MCH 28.8, MCHC 33.3, RDW Std Deviation 38.7, RDW Coeff of Sharon 12.2, Plt Count 425, MPV 9.5, Immature Gran % (Auto) 0.600, Neut % (Auto) 82.4 H, Lymph % (Auto) 10.7L, Isabella % (Auto) 5.4, Eos % (Auto) 0.5, Baso % (Auto) 0.4, Absolute Neuts (auto)11.5 H, Absolute Lymphs (auto) 1.50, Nucleated RBC % 0, ESR 28 H, PT 15.0 H, INR1.2, APTT 32.6, Sodium 130 L, Potassium 5.6 H, Chloride 94 L, Carbon Dioxide 18.7 L, Anion Gap 17 H, BUN 27 H, Creatinine 1.69 H, Estim Creat Clear Calc 76.67, Est GFR (MDRD) Non-Af 52 L, BUN/Creatinine Ratio 15.8, Glucose 295 H, Lactic Acid 2.8 H*, Calcium 9.7, Total Bilirubin 0.97, AST 21, ALT 25, Alkaline Phosphatase 156 H, C-React Prot Ext Range 102.00 H, Total Protein 8.9 H, Albumin3.6, Globulin 5.3 H, Albumin/Globulin Ratio 0.7 L 04/28/25 22:22: Lactic Acid < 1.0 04/28/25 22:23: POC Glucose 240 H 04/29/25 00:49: POC Glucose 261 H 04/29/25 01:30: Urine Color Yellow, Urine Clarity Turbid, Urine pH 5.0, Ur Specific [place] 1.020, Urine Protein 100 H, Urine Glucose (UA) 100 H, Urine Ketones 50 H, Urine Occult Blood 150 H, Urine Nitrite Negative, Urine Bilirubin 1 H, Urine Urobilinogen 4 H, Ur Leukocyte Esterase 500 H, Urine RBC 5-10 SEEN, Urine WBC >100 SEEN, Ur Squamous Epith Cells 0-5 SEEN, Amorphous Sediment 2+, Urine Bacteria 2+, Urine Mucus 0 SEEN 04/29/25 04:30: WBC 8.7, RBC 3.16 L, Hgb 9.0 L, Hct 27.4 L, MCV 86.7, MCH 28.5, MCHC 32.8, RDW Std Deviation 39.0, RDW Coeff of Sharon 12.2, Plt Count 293, MPV 9.3, Immature Gran % (Auto) 0.300, Neut % (Auto) 71.7 H, Lymph % (Auto) 16.6 L, Isabella % (Auto) 9.2, Eos % (Auto) 1.7, Baso % (Auto) 0.5, Absolute Neuts (auto) 6.2, Absolute Lymphs (auto) 1.44, Nucleated RBC % 0, Retic Count 1.70 H, Immature Retic Fraction 9.90, Retic Hgb Equivalent 28.5 L, Sodium 132 L, Potassium 4.5, Chloride 101, Carbon Dioxide 18.2 L, Anion Gap 12, BUN 30 H, Creatinine 1.56 H, Estim Creat Clear Calc 83.74, Est GFR (MDRD) Non-Af 57 L, BUN/Creatinine Ratio 19.0, Glucose 311 H, Hemoglobin A1c 6.9 H, Calcium 7.9, Iron 26 L, TIBC 145 L, Iron Saturation 17.9, Unsaturated IBC 119 L, Ferritin 688 H, Vitamin B12 856 04/29/25 10:42: POC Glucose 225 H Micro: Microbiology 04/28/25 18:10 Blood Culture (Wb) - Right Hand Blood Culture - Preliminary 04/28/25 17:41 Blood Culture (Wb) - Anticubital Left Blood Culture - Preliminary Rhythm Strip Rhythm Strip: Sinus Tach Rate: 138 Ectopy: None Imaging Radiology Impression Chest X-Ray 04/28/25 17:55 IMPRESSION: Lungs appear clear throughout. No pleural effusion or pneumothorax is noted. The cardiomediastinal silhouette is within the normal range. Bilateral acromioclavicular joint degenerative changes are noted. No acute osseous change is seen. Reading Location: [address] Elbow X-Ray 04/28/25 17:55 IMPRESSION: No left elbow joint effusion is seen. No significant arthritic process or joint narrowing is noted. No fracture, dislocation, or other significant osseous or joint space abnormality is seen. Reading Location: [address] 04/29/25 1347 <Electronically signed by Deangelo Arroyo MD> Cosigner Signature (if applicable): CC: Dr. Josh Meier MD~ Signed [facility] Work Phone: Consult note Author Gabriele Tafoya [facility] Note Date/Time April 29, 2025 3 :57pm [facility] Medical Records Department [address] [place] [id number] Consultation - Orthopedics 04/29/25 1534 MR#: [id number] Acct: [id number] Name: TREVON RAMAN Rep #:[id number] : 1985 40 From: Gabriele Tafoya MD PCP: Dr. Josh Meier MD Status:ADM IN Location: [facility] SF785-1 HPI Consult Data Date of Consult: 04/29/25 HPI Narrative HPI Narrative: TREVON RAMAN, is a 40 M who presents with severe back pain and MRI finding ofdiscitis. He was admitted yesterday from the ER. I was consulted for the finding of discitis. I saw the patient in 322 this afternoon. Patient mentionsthat his back pain symptoms progressively worsened rapidly since February. He wasseen in orthopedic clinic but the MRI was not completed at that time. Since that he underwent an MRI and has had progressively worsening back pain and difficulty with lifting up his left leg and seems to be relaxed only when the left hip is flexed. He denies any significant pain down the leg below the knee. He denies any trauma. He has also noticed over the last few days and weeks that his left elbow is painful and now its swollen significantly. He is a knowndiabetic. His A1c is 6.9. He has a chronic wound over the anterior rose in thelower third tibia on the right. He has had an amputation of the right fifth toe. He has a wound over the right second toe. PMH: Hypertriglyceridemia Wears glasses Insulin dependent diabetes mellitus Back pain Migraine headache Syncope Dietary restriction Vapes nicotine containing substance History of pain when walking History of edema Diabetic retinopathy associated with type 1 diabetes mellitus Diabetic neuropathy Osteomyelitis of foot, right, acute DKA (diabetic ketoacidoses) Cellulitis of leg Sepsis Type 1 diabetes mellitus [facility] Medical History Hypertriglyceridemia Wears glasses Insulin dependent diabetes mellitus Back pain Migraine headache Syncope Dietary restriction Vapes nicotine containing substance History of pain when walking History of edema Diabetic retinopathy associated with type 1 diabetes mellitus Diabetic neuropathy Osteomyelitis of foot, right, acute DKA (diabetic ketoacidoses) Cellulitis of leg Sepsis Type 1 diabetes mellitus Home Medications ?Medication ?Instructions ?Recorded ?Last Taken ?Type blood sugar diagnostic (FreeStyle #150 ea 10/05/21 Unk nown Rx Lite Strips) lancets 28 gauge (FreeStyle #150 ea 09/06/22 Unknown R x Lancets) blood sugar diagnostic (True #100 ea 09/13/24 Unknown Rx Metrix Glucose Test Strip) pen needle, diabetic 32 gauge x #200 ea 10/12/24 Unkno wn Rx (BD Ultra-Fine Amy Pen Needle) blood-glucose sensor (FreeStyle #6 ea 03/11/25 Unknown Rx Monse 3 Plus Sensor device) insulin glargine 100 unit/mL (3 40 unit (0.4 mL) subcu t QHS #15 mL 03/11/25 04/27/25 Rx mL) subcutaneous pen (Lantus Solostar U-100 Insulin) meloxicam 15 mg tablet 15 mg PO QDAY #30 tabs 04/1904/28/25 Rx tizanidine 6 mg capsule 6 mg PO TID PRN muscle spast icity 04/19/25 04/28/25 Rx #30 caps acetaminophen 500 mg tablet 1,000 mg PO Q6H PRN back p ain 04/28/25 04/28/25 History (Acetaminophen Extra Strength) fenofibrate nanocrystallized 145 145 mg PO DAILY 04/28 Unknown History mg tablet insulin aspart U-100 100 unit/mL See Protocol subcut T ID 04/28/25 Unknown History (3 mL) subcutaneous pen (Novolog FlexPen U-100 Insulin aspart) Allergy/AdvReac Type Severity Reaction Status Date / Time cefprozil (From Cefzil) Allergy Unknown Unknown Verified 04/28/25 17:08 Environmental Allergies: Allergy Hives Verified 04/28/25 17:08 Uncoded Family History Father Heart disease Hypertension Mother Diabetes Thyroid disorder Surgical History History of amputation of lesser toe of right foot Social History household members: spouse current occupational status: unemployed Smoking Status: Former smoker Electronic Cigarette Use: with nicotine quit status: considering quitting alcohol intake: never substance use type: does not use what type of physical activity do you participate in: other details: Sometimes do you feel safe at home: Yes Vital Signs Vital Signs Vital Signs: 04/28/25 17:06 04/28/25 17:06 04/28/25 17:14 Temperature 98.2 F Temperature Source Oral Pulse Rate 143 H Pulse Strength Respiratory Rate 20 H Respiratory Effort Normal Short of Breath Respiratory Depth Normal Respiratory Pattern Normal Blood Pressure 97/67 Blood Pressure Mean 77 Blood Pressure Source Blood Pressure Position Blood Pressure Location Pulse Ox 100 Oxygen Delivery Method Room Air Room Air Room Air 04/28/25 18:06 04/28/25 18:08 04/28/25 19:00 Temperature 98.5 F 100.4 F H Temperature Source Oral Oral Pulse Rate 127 H 125 H 121 H Pulse Strength Respiratory Rate 14 17 20 H Respiratory Effort Respiratory Depth Respiratory Pattern Blood Pressure 146/80 H 142/69 H 142/70 H Blood Pressure Mean 102 93 94 Blood Pressure Source Blood Pressure Position Blood Pressure Location Pulse Ox 99 100 100 Oxygen Delivery Method Room Air Room Air 04/28/25 19:27 04/28/25 20:00 04/28/25 21:00 Temperature 100.4 F H 100.2 F H 98.4 F Temperature Source Oral Oral Pulse Rate 116 H 119 H 109 H Pulse Strength Respiratory Rate 20 H 20 H 18 Respiratory Effort Respiratory Depth Respiratory Pattern Blood Pressure 139/71 H 121/61 H 126/67 H Blood Pressure Mean 93 81 86 Blood Pressure Source Blood Pressure Position Blood Pressure Location Pulse Ox 98 99 97 Oxygen Delivery Method Room Air Room Air 04/28/25 22:03 04/28/25 22:15 04/28/25 22:30 Temperature 98.3 F Temperature Source Temporal Pulse Rate 112 H 101 H 99 Pulse Strength Respiratory Rate 20 H 20 H 25 H Respiratory Effort Respiratory Depth Respiratory Pattern Blood Pressure 138/78 H 141/82 H 127/80 H Blood Pressure Mean 98 101 95 Blood Pressure Source Monitor Monitor Monitor Blood Pressure Position Semi-Fowlers Semi-Fowlers Semi-Fowlers Blood Pressure Location Left Arm Left Arm Left Arm Pulse Ox 99 99 99 Oxygen Delivery Method Room Air Room Air Room Air 04/28/25 23:00 04/29/25 00:00 04/29/25 01:00 Temperature 98.2 F Temperature Source Temporal Pulse Rate 117 H 97 99 Pulse Strength Respiratory Rate 19 H 18 22 H Respiratory Effort Respiratory Depth Respiratory Pattern Blood Pressure 134/99 H 133/81 H 131/73 H Blood Pressure Mean 110 98 92 Blood Pressure Source Monitor Monitor Monitor Blood Pressure Position Semi-Fowlers Semi-Fowlers Semi-Fowlers Blood Pressure Location Left Arm Right Arm Right Arm Pulse Ox 97 97 98 Oxygen Delivery Method Room Air Room Air Room Air 04/29/25 02:00 04/29/25 03:00 04/29/25 04:00 Temperature 98 F Temperature Source Temporal Pulse Rate 96 98 105 H Pulse Strength Respiratory Rate 20 H 25 H 20 H Respiratory Effort Respiratory Depth Respiratory Pattern Blood Pressure 130/80 H 133/73 H 137/77 H Blood Pressure Mean 96 93 97 Blood Pressure Source Monitor Monitor Monitor Blood Pressure Position Semi-Fowlers Semi-Fowlers Semi-Fowlers Blood Pressure Location Right Arm Right Arm Right Arm Pulse Ox 98 98 100 Oxygen Delivery Method Room Air Room Air Room Air 04/29/25 05:00 04/29/25 06:00 04/29/25 07:00 Temperature Temperature Source Pulse Rate 95 97 95 Pulse Strength Respiratory Rate 24 H 20 H 23 H Respiratory Effort Respiratory Depth Respiratory Pattern Blood Pressure 142/66 H 117/94 H 138/78 H Blood Pressure Mean 91 101 98 Blood Pressure Source Monitor Monitor Monitor Blood Pressure Position Semi-Fowlers Semi-Fowlers Semi-Fowlers Blood Pressure Location Right Arm Right Arm Right Arm Pulse Ox 99 100 98 Oxygen Delivery Method Room Air Room Air Room Air 04/29/25 08:00 04/29/25 11:10 04/29/25 11:10 Temperature Temperature Source Pulse Rate 95 Pulse Strength Normal (2+) Respiratory Rate 20 H Respiratory Effort Normal Respiratory Depth Normal Respiratory Pattern Normal Blood Pressure 137/75 H Blood Pressure Mean 92 Blood Pressure Source Monitor Blood Pressure Position Semi-Fowlers Blood Pressure Location Left Arm Pulse Ox 97 Oxygen Delivery Method Room Air Room Air 04/29/25 11:37 04/29/25 12:30 04/29/25 13:50 Temperature 97.2 F L Temperature Source Oral Pulse Rate 92 Pulse Strength Normal (2+) Respiratory Rate 16 Respiratory Effort Normal Respiratory Depth Normal Respiratory Pattern Normal Blood Pressure 148/86 H Blood Pressure Mean 106 Blood Pressure Source Monitor Blood Pressure Position Semi-Fowlers Blood Pressure Location Right Arm Pulse Ox 100 Oxygen Delivery Method Room Air Room Air Weight Weight: 254 lb 3.088 oz Body Mass Index (BMI) 33.5 Physical Exam Narrative Patient sitting in bed with left upper extremity in a sling and elevation. Examination of the back shows midline paraspinal tenderness to lower lumbar region. Lower extremity shows dressings over the right rose as well as the right second toe. These were not assessed. Neurologic evaluation of lower extremity shows 5 x 5 power normal scripts. Examination left elbow shows swelling and fullness with redness over the posterior aspect of the left elbow. Pronation supination is pain-free. Elbow flexion extension is limited between 30 and 110 degrees with pain at extremes. Distal neurovascular exam is intact. Lab / Micro Data 04/29/25 04:30 04/29/25 04:30 Labs: Laboratory Results - last 24 hr 04/28/25 17:41: WBC 14.0 H, RBC 4.13 L, Hgb 11.9 L, Hct 35.7 L, MCV 86.4, MCH 28.8, MCHC 33.3, RDW Std Deviation 38.7, RDW Coeff of Sharon 12.2, Plt Count 425, MPV 9.5, Immature Gran % (Auto) 0.600, Neut % (Auto) 82.4 H, Lymph % (Auto) 10.7L, Isabella % (Auto) 5.4, Eos % (Auto) 0.5, Baso % (Auto) 0.4, Absolute Neuts (auto)11.5 H, Absolute Lymphs (auto) 1.50, Nucleated RBC % 0, ESR 28 H, PT 15.0 H, INR1.2, APTT 32.6, Sodium 130 L, Potassium 5.6 H, Chloride 94 L, Carbon Dioxide 18.7 L, Anion Gap 17 H, BUN 27 H, Creatinine 1.69 H, Estim Creat Clear Calc 76.67, Est GFR (MDRD) Non-Af 52 L, BUN/Creatinine Ratio 15.8, Glucose 295 H, Lactic Acid 2.8 H*, Calcium 9.7, Total Bilirubin 0.97, AST 21, ALT 25, Alkaline Phosphatase 156 H, C-React Prot Ext Range 102.00 H, Total Protein 8.9 H, Albumin3.6, Globulin 5.3 H, Albumin/Globulin Ratio 0.7 L 04/28/25 22:22: Lactic Acid < 1.0 04/28/25 22:23: POC Glucose 240 H 04/29/25 00:49: POC Glucose 261 H 04/29/25 01:30: Urine Color Yellow, Urine Clarity Turbid, Urine pH 5.0, Ur Specific [place] 1.020, Urine Protein 100 H, Urine Glucose (UA) 100 H, Urine Ketones 50 H, Urine Occult Blood 150 H, Urine Nitrite Negative, Urine Bilirubin 1 H, Urine Urobilinogen 4 H, Ur Leukocyte Esterase 500 H, Urine RBC 5-10 SEEN, Urine WBC >100 SEEN, Ur Squamous Epith Cells 0-5 SEEN, Amorphous Sediment 2+, Urine Bacteria 2+, Urine Mucus 0 SEEN 04/29/25 04:30: WBC 8.7, RBC 3.16 L, Hgb 9.0 L, Hct 27.4 L, MCV 86.7, MCH 28.5, MCHC 32.8, RDW Std Deviation 39.0, RDW Coeff of Sharon 12.2, Plt Count 293, MPV 9.3, Immature Gran % (Auto) 0.300, Neut % (Auto) 71.7 H, Lymph % (Auto) 16.6 L, Isabella % (Auto) 9.2, Eos % (Auto) 1.7, Baso % (Auto) 0.5, Absolute Neuts (auto) 6.2, Absolute Lymphs (auto) 1.44, Nucleated RBC % 0, Retic Count 1.70 H, Immature Retic Fraction 9.90, Retic Hgb Equivalent 28.5 L, Sodium 132 L, Potassium 4.5, Chloride 101, Carbon Dioxide 18.2 L, Anion Gap 12, BUN 30 H, Creatinine 1.56 H, Estim Creat Clear Calc 83.74, Est GFR (MDRD) Non-Af 57 L, BUN/Creatinine Ratio 19.0, Glucose 311 H, Hemoglobin A1c 6.9 H, Calcium 7.9, Iron 26 L, TIBC 145 L, Iron Saturation 17.9, Unsaturated IBC 119 L, Ferritin 688 H, Vitamin B12 856 04/29/25 10:42: POC Glucose 225 H Micro: Microbiology 04/29/25 10:43 Wound - Toe Gram Stain - Final 04/28/25 18:10 Blood Culture (Wb) - Right Hand Blood Culture - Preliminary 04/28/25 17:41 Blood Culture (Wb) - Anticubital Left Blood Culture - Preliminary Rhythm Strip Rhythm Strip: Sinus Tach Rate: 138 Ectopy: None Imaging Radiology Impression Chest X-Ray 04/28/25 17:55 IMPRESSION: Lungs appear clear throughout. No pleural effusion or pneumothorax is noted. The cardiomediastinal silhouette is within the normal range. Bilateral acromioclavicular joint degenerative changes are noted. No acute osseous change is seen. Reading Location: [address] Elbow X-Ray 04/28/25 17:55 IMPRESSION: No left elbow joint effusion is seen. No significant arthritic process or joint narrowing is noted. No fracture, dislocation, or other significant osseous or joint space abnormality is seen. Reading Location: [address] Upper Extrem[address] CT 04/29/25 13:18 IMPRESSION: Soft tissue swelling. No evidence of abscess. No bony destruction. Reading Location: [facility] Assessment & Plan Assessment/Plan (1) Lumbar discitis: (2) Cellulitis of left elbow: PLAN: Plan I reviewed recently done MRI of the lumbar spine which shows L4-5 disc height loss with discitis and possible purulence going into the left psoas muscle. No significant stenosis or nerve root compression noticed. No obvious epidural abscess. No spine bony destruction noticed on this MRI. Left elbow x-rays did not show any acute osseous abnormality. I requested an urgent CT of the left elbow which shows soft tissue swelling without any collections. Discussed imaging findings in detail. Patient has wounds in his right lower extremity in the rose as well as the right second toe which may be a source of infection and possible bacteremia, which may have led to a lumbar discitis. At this time patient is neuro intact and will benefit from medical treatment of discitis with long-term antibiotics. He has had evaluations with blood culture which is pending and has been on IV antibiotics since yesterday since admission. ID consult will be beneficial for planning long-term antibiotics. Will continue to follow for the discitis as needed. At this time no surgical intervention required for the lumbar discitis. For his left elbow pain and swelling, CT does not seem to indicate any significant soft tissue collections or effusion at the elbow. Patient does havepain with elbow range of motion at extremes, but has pain-free forearm rotation. At this time continued monitoring of the cellulitis and treatment with antibiotics would be appropriate. I do not feel significant fullness in the soft spot of the elbow or any effusion on the CT to justify aspiration at this time. Will continue to follow as needed. Charges/Coding Visit Charges Inpatient E&M: 59740 Init Hosp L3 04/29/25 7114 <Electronically signed by Gabriele Tafoya MD> Cosigner Signature (if applicable): CC: Dr. Josh Meier MD; Dr. Jim Burger MD~ Signed [facility] Work Phone: Consult note Author Aminah Ann [facility] Note Date/Time April 29, 2025 7 :11pm [facility] Medical Records Department [address] [place] [address] Consultation 04/29/25 190 MR#: [id number] Acct: [id number] Name: TREVON RAMAN Rep #:[id number] : 1985 40 From: Aminah Ann DPDot PCP: Dr. Josh Meier MD Status:ADM IN Location: [facility] RC625-2 Assessment & Plan Assessment/Plan (1) Non-pressure chronic ulcer of other part of right foot limited to breakdown of skin: PLAN: The right second toe was selectively debrided bedside utilizing pickups and tissue scissors. Only nonviable tissue was removed. It is only partial- thickness. Area was then dressed with dry gauze. It is not likely this is the etiology of the patient's sepsis. (2) Type 1 diabetes mellitus with diabetic polyneuropathy: (3) Onychomycosis: PLAN: Patient was strongly encouraged to follow-up with podiatry on a regular basis. They can help with debridement of toenails as this is likely the cause of the wound on the second toe. He also states that he is interested in the permanent nail avulsion of the hallux nails. PLAN: Plan Findings were reviewed with patient. Foot examination performed. Podiatry willfollow as needed. HPI Consult Data Date of Consult: 04/29/25 HPI Narrative Reason for Consultation: Right second toe wound. HPI Narrative: TREVON RAMAN, is a 40 M who presents to [facility] for intractable back pain. He states that the MRI was showing possible inflammationor infection so he was told to report to the emergency room immediately. He also has a very swollen and painful left elbow. He is not for sure what happened there. The patient admits that he has a wound to the right second toe. He has history of ulcerations to the right foot where he has been seen by [facility]. He has had the right fifth toe and partial ray resection as well as he says the fourth metatarsal head removed. He states he has not seen his last turner, Dr. Ambrocio, since May 2024. He states when his wound healed, he felt like he did not need to go back anymore. [facility] Medical History Hypertriglyceridemia Wears glasses Insulin dependent diabetes mellitus Back pain Migraine headache Syncope Dietary restriction Vapes nicotine containing substance History of pain when walking History of edema Diabetic retinopathy associated with type 1 diabetes mellitus Diabetic neuropathy Osteomyelitis of foot, right, acute DKA (diabetic ketoacidoses) Cellulitis of leg Sepsis Type 1 diabetes mellitus Home Medications ?Medication ?Instructions ?Recorded ?Last Taken ?Type blood sugar diagnostic (FreeStyle #150 ea 10/05/21 Unk nown Rx Lite Strips) lancets 28 gauge (FreeStyle #150 ea 09/06/22 Unknown R x Lancets) blood sugar diagnostic (True #100 ea 09/13/24 Unknown Rx Metrix Glucose Test Strip) pen needle, diabetic 32 gauge x #200 ea 10/12/24 Unkno wn Rx (BD Ultra-Fine Amy Pen Needle) blood-glucose sensor (FreeStyle #6 ea 03/11/25 Unknown Rx Monse 3 Plus Sensor device) insulin glargine 100 unit/mL (3 40 unit (0.4 mL) subcu t QHS #15 mL 03/11/25 04/27/25 Rx mL) subcutaneous pen (Lantus Solostar U-100 Insulin) meloxicam 15 mg tablet 15 mg PO QDAY #30 tabs 04/1904/28/25 Rx tizanidine 6 mg capsule 6 mg PO TID PRN muscle spast icity 04/19/25 04/28/25 Rx #30 caps acetaminophen 500 mg tablet 1,000 mg PO Q6H PRN back p ain 04/28/25 04/28/25 History (Acetaminophen Extra Strength) fenofibrate nanocrystallized 145 145 mg PO DAILY 04/28 Unknown History mg tablet insulin aspart U-100 100 unit/mL See Protocol subcut T ID 04/28/25 Unknown History (3 mL) subcutaneous pen (Novolog FlexPen U-100 Insulin aspart) Allergy/AdvReac Type Severity Reaction Status Date / Time cefprozil (From Cefzil) Allergy Unknown Unknown Verified 04/28/25 17:08 Environmental Allergies: Allergy Hives Verified 04/28/25 17:08 Uncoded Family History Father Heart disease Hypertension Mother Diabetes Thyroid disorder Surgical History History of amputation of lesser toe of right foot Social History household members: spouse current occupational status: unemployed Smoking Status: Former smoker Electronic Cigarette Use: with nicotine quit status: considering quitting alcohol intake: never substance use type: does not use what type of physical activity do you participate in: other details: Sometimes do you feel safe at home: Yes Physical Exam Narrative Patient was resting comfortably in bed. Right second toe was dressed with dry gauze from wound nurse. He has left arm in the sling. Const alert, oriented x3 and no apparent distress Extremity Peripheral Pulses: Yes posterior tibial pulses present bilateral (mildly palpable) and dorsalis pedis pulses present bilateral (mildly palpable) Right Lower Extremity: foot and digits Positive for inspection (Right fifth toe has been previously amputated with partial fifth ray resection. Patient admits fourth metatarsal head has been amputated but toe remains.) Skin Wounds: wounds noted size Size: Approximately 0.3 x 0.1 x 0.1 cm. Wound Narrative: There is a slight skin tear to the distal aspect of the right second toe which is approximately 0.1 x 1.0 x 0.1 cm. The original wound, however, appears to beat the distal medial aspect of the second toe. This directly aligns up with thehallux nail and is likely secondary to a laceration from the nail. His nail is elongated and no attention has been given to it in quite some time. Wounds are superficial. Granular tissue is present. There is no purulence or malodor. There is very minimal cellulitis at the dorsal aspect of the distal right second toe beginning at the DIPJ. Nails: discolored, dystrophic and other Bilateral hallux nails are extremely thickened and appear more dystrophic than fungal. Lab / Micro Data 04/29/25 04:30 04/29/25 04:30 Labs: Laboratory Results - last 24 hr 04/28/25 17:41: ESR 28 H, Lactic Acid 2.8 H* 04/28/25 22:22: Lactic Acid < 1.0 04/28/25 22:23: POC Glucose 240 H 04/29/25 00:49: POC Glucose 261 H 04/29/25 01:30: Urine Color Yellow, Urine Clarity Turbid, Urine pH 5.0, Ur Specific [place] 1.020, Urine Protein 100 H, Urine Glucose (UA) 100 H, Urine Ketones 50 H, Urine Occult Blood 150 H, Urine Nitrite Negative, Urine Bilirubin 1 H, Urine Urobilinogen 4 H, Ur Leukocyte Esterase 500 H, Urine RBC 5-10 SEEN, Urine WBC >100 SEEN, Ur Squamous Epith Cells 0-5 SEEN, Amorphous Sediment 2+, Urine Bacteria 2+, Urine Mucus 0 SEEN 04/29/25 04:30: WBC 8.7, RBC 3.16 L, Hgb 9.0 L, Hct 27.4 L, MCV 86.7, MCH 28.5, MCHC 32.8, RDW Std Deviation 39.0, RDW Coeff of Sharon 12.2, Plt Count 293, MPV 9.3, Immature Gran % (Auto) 0.300, Neut % (Auto) 71.7 H, Lymph % (Auto) 16.6 L, Isabella % (Auto) 9.2, Eos % (Auto) 1.7, Baso % (Auto) 0.5, Absolute Neuts (auto) 6.2, Absolute Lymphs (auto) 1.44, Nucleated RBC % 0, Retic Count 1.70 H, Immature Retic Fraction 9.90, Retic Hgb Equivalent 28.5 L, Sodium 132 L, Potassium 4.5, Chloride 101, Carbon Dioxide 18.2 L, Anion Gap 12, BUN 30 H, Creatinine 1.56 H, Estim Creat Clear Calc 83.74, Est GFR (MDRD) Non-Af 57 L, BUN/Creatinine Ratio 19.0, Glucose 311 H, Hemoglobin A1c 6.9 H, Calcium 7.9, Iron 26 L, TIBC 145 L, Iron Saturation 17.9, Unsaturated IBC 119 L, Ferritin 688 H, Vitamin B12 856 04/29/25 10:42: POC Glucose 225 H 04/29/25 15:49: POC Glucose 214 H Micro: Microbiology 04/28/25 17:41 Blood Culture (Wb) - Anticubital Left Bacteria Detection (PCR) - Preliminary Staphylococcus aureus 04/28/25 17:41 Blood Culture (Wb) - Anticubital Left Blood Culture - Preliminary 04/29/25 10:43 Wound - Toe Gram Stain - Final 04/28/25 18:10 Blood Culture (Wb) - Right Hand Blood Culture - Preliminary Rhythm Strip Rhythm Strip: Sinus Tach Rate: 138 Ectopy: None Imaging Radiology Impression Upper Extremity CT 04/29/25 13:18 IMPRESSION: Soft tissue swelling. No evidence of abscess. No bony destruction. Reading Location: [id number] 04/29/251910 <Electronically signed by Aminah Ann DPM> Cosigner Signature (if applicable): CC: Dr. Josh Meier MD~ Signed [facility] Work Phone: Consult note Author Primitivo Rahman [facility] Note Date/Time April 30, 2025 3 :34pm [facility] Medical Records Department [address] [place] [address] Pharmacokinetic/Renal -Consult 04/30/25 1533 MR#: [id number] Acct: [id number] Name: TREVON RAMAN Rep #:[id number] 0 : 1985 40 From: Primitivo [facility] PCP: Dr. Josh Meier MD Status:ADM IN Y Location: [place] [address] Consult Antibiotic Management Pharmacy has been consulted to manage selected antibiotic: Vancomycin Type of Intervention Type of Consult: Follow-up Suspected Infection Suspected Infection: Sepsis Labs Labs: Sodium 131 mmol/L (133-145) L 04/30/25 07:15 Potassium 4.6 mmol/L (3.3-5.1) 04/30/25 07:15 Chloride 98 mmol/L (98-108) 04/30/25 07:15 Carbon Dioxide 21.2 mmol/L (21.0-32.0) 04/30/25 07:15 Anion Gap 12 (5-15) 04/30/25 07:15 BUN 19 mg/dL (4-19) 04/30/25 07:15 Creatinine 1.19 mg/dL (0.70-1.20) 04/30/25 07:15 Est GFR (MDRD) Non-Af 79 (>60) 04/30/25 07:15 BUN/Creatinine Ratio 15.6 RATIO (10-20) 04/30/25 07:15 Glucose 254 mg/dL (70-99) H 04/30/25 07:15 Vancomycin Trough 18.0 ug/mL (5.0-15.0) H 04/30/25 07:15 Microbiology Microbiology: Microbiology 04/30/25 12:00 Fluid - Synovial (joint) Gram Stain - Final 04/28/25 18:10 Blood Culture (Wb) - Right Hand Blood Culture - Preliminary Staphylococcus aureus 04/28/25 17:41 Blood Culture (Wb) - Anticubital Left Bacteria Detection (PCR) - Final Staphylococcus aureus 04/28/25 17:41 Blood Culture (Wb) - Anticubital Left Blood Culture - Preliminary Staphylococcus aureus 04/29/25 10:43 Wound - Toe Gram Stain - Final 04/29/25 10:43 Wound - Toe Wound Culture - Preliminary Staphylococcus species Beta streptococcus 04/29/25 01:30 Urine, Clean Catch Urine Culture - Preliminary Staphylococcus species Goal Trough Goal Trough: 15-20 mcg/mL Pharmacy Plan for Drug Dosing Pharmacy Plan for Drug Dosing: VANCOMYCIN LEVEL RECEIVED Current Vancomycin Dose: 1750mg q12h (0730, 1930) Number of Doses Received: x2 of current dose Vancomycin Level: 18 (drawn at 0715 on 04/30/25) Hours Since Last Dose: 11.5 hours since last 1750mg dose on 04/29/25 at 2046 Renal Function: SrCr 1.19 Renal Function Trend: SrCr improving (was 1.56 on 04/29/25) Lab/Micro: Vancomycin Plan/Comments: resulted trough of 18 is within the ordered goal trough range of 15-20. recommend continuing current dose of 1750mg q12h and checking a trough prior to the 4th dose Pending Level: 05/01/25 at 1900 Pharmacy Service will continue to monitor and adjust dosing as required. Follow-Up Labs Follow-Up Labs: Trough: Vancomycin (05/01/25 at 1900) 04/30/25 1534 <Electronically signed by Primitivo De Paz [facility]> Date _ Primitivo Rahman [facility] Cosigner Signature (if applicable): Date CC: ~ Signed [facility] Work Phone: Consult note Author Mike Riojas [facility] Note Date/Time May 01, 2025 7 :46[facility] Medical Records Department [address] [place] [address] Pharmacokinetic/Renal -Consult 05/01/251944 MR#: [id number] Acct: [id number] Name: TREVON RAMAN Rep #:[id number] 1 : 1985 40 From: Mike Hines od PCP: Dr. Josh Meier MD Status:ADM IN Y Location: [place] [id number] Consult Antibiotic Management Pharmacy has been consulted to manage selected antibiotic: Vancomycin Type of Intervention Type of Consult: Follow-up Labs Labs: Sodium 133 mmol/L (133-145) 05/01/25 04:13 Potassium 3.9 mmol/L (3.3-5.1) 05/01/25 04:13 Chloride 101 mmol/L (98-108) 05/01/25 04:13 Carbon Dioxide 22.9 mmol/L (21.0-32.0) 05/01/25 04:13 Anion Gap 9 (5-15) 05/01/25 04:13 BUN 19 mg/dL (4-19) 05/01/25 04:13 Creatinine 0.98 mg/dL (0.70-1.20) 05/01/25 04:13 Est GFR (MDRD) Non-Af 100 (>60) 05/01/25 04:13 BUN/Creatinine Ratio 19.5 RATIO (10-20) 05/01/25 04:13 Glucose 238 mg/dL (70-99) H 05/01/25 04:13 Vancomycin Trough 21.3 ug/mL (5.0-15.0) H 05/01/25 18:50 Microbiology Microbiology: Microbiology 04/28/25 18:10 Blood Culture (Wb) - Right Hand Blood Culture - Preliminary Staphylococcus aureus 04/29/25 10:43 Wound - Toe Gram Stain - Final 04/29/25 10:43 Wound - Toe Wound Culture - Preliminary Staphylococcus aureus Streptococcus group B 04/30/25 12:00 Fluid - Synovial (joint) Gram Stain - Final 04/30/25 12:00 Fluid - Synovial (joint) Body Fluid Culture - Preliminary No growth-Final to follow 04/28/25 17:41 Blood Culture (Wb) - Anticubital Left Bacteria Detection (PCR) - Final Staphylococcus aureus 04/28/25 17:41 Blood Culture (Wb) - Anticubital Left Blood Culture - Final Staphylococcus aureus 04/29/25 01:30 Urine, Clean Catch Urine Culture - Final Staphylococcus aureus Goal Trough Goal Trough: 15-20 mcg/mL Pharmacy Plan for Drug Dosing Pharmacy Plan for Drug Dosing: Pharmacy Service will continue to monitor and adjust dosing as required. TROUGH 21.3 @ 12 HOURS. HOLD DOSE AND DRAW RANDOM LEVEL IN 8 HOURS Follow-Up Labs Follow-Up Labs: Trough: Vancomycin Date/Time Labs Ordered Labs to be done on [date and time ordered]: 05/02 @ 0300 05/01/251945 <Electronically signed by Mike hall> Date _ Mike Riojas Cosigner Signature (if applicable): Date CC: ~ Signed [facility] Work Phone: Consult note [facility] Note Date/Time May 02, 2025 5 :07am [facility] Medical Records Department [address] [place] [address] Pharmacokinetic/Renal -Consult 05/02/25 0506 MR#: [id number] Acct: [id number] Name: TREVON RAMAN Rep #:[id number] 3 : 1985 40 From: Mike Hines od PCP: Dr. Josh Meier MD Status:ADM IN Location: [place] [address] Consult Antibiotic Management Pharmacy has been consulted to manage selected antibiotic: Vancomycin Type of Intervention Type of Consult: Follow-up Labs Labs: Sodium 135 mmol/L (133-145) 05/02/25 03:08 Potassium 4.3 mmol/L (3.3-5.1) 05/02/25 03:08 Chloride 100 mmol/L (98-108) 05/02/25 03:08 Carbon Dioxide 24.4 mmol/L (21.0-32.0) 05/02/25 03:08 Anion Gap 10 (5-15) 05/02/25 03:08 BUN 20 mg/dL (4-19) H 05/02/25 03:08 Creatinine 0.99 mg/dL (0.70-1.20) 05/02/25 03:08 Est GFR (MDRD) Non-Af 99 (>60) 05/02/25 03:08 BUN/Creatinine Ratio 20.4 RATIO (10-20) H 05/02/25 03:08 Glucose 156 mg/dL (70-99) H 05/02/25 03:08 Vancomycin Trough 21.3 ug/mL (5.0-15.0) H 05/01/25 18:50 Random Vancomycin 14.8 ug/mL (0.0-15.0) 05/02/25 03:08 Microbiology Microbiology: Microbiology 04/28/25 18:10 Blood Culture (Wb) - Right Hand Blood Culture - Preliminary Staphylococcus aureus 04/29/25 10:43 Wound - Toe Gram Stain - Final 04/29/25 10:43 Wound - Toe Wound Culture - Preliminary Staphylococcus aureus Streptococcus group B 04/30/25 12:00 Fluid - Synovial (joint) Gram Stain - Final 04/30/25 12:00 Fluid - Synovial (joint) Body Fluid Culture - Preliminary No growth-Final to follow 04/28/25 17:41 Blood Culture (Wb) - Anticubital Left Bacteria Detection (PCR) - Final Staphylococcus aureus 04/28/25 17:41 Blood Culture (Wb) - Anticubital Left Blood Culture - Final Staphylococcus aureus 04/29/25 01:30 Urine, Clean Catch Urine Culture - Final Staphylococcus aureus Goal Trough Goal Trough: 15-20 mcg/mL Pharmacy Plan for Drug Dosing Pharmacy Plan for Drug Dosing: Pharmacy Service will continue to monitor and adjust dosing as required. RANDOM LEVEL 14.8@ 20 HOURS. START 1500MG Q12H AND DRAW TROUGH PRIOR TO 4TH DOSE Follow-Up Labs Follow-Up Labs: Trough: Vancomycin Date/Time Labs Ordered Labs to be done on [date and time ordered]: 05/03 @ 1530 05/02/25 0231 <Electronically signed by Mike hall> Date _ Mike Romeo Signature (if applicable): Date CC: ~ Signed [facility] Work Phone: Consult note Author Gary Ojeda [facility] Note Date/Time May 05, 2025 4 :15pm [facility] Medical Records Department [address] [place] [address] Counseling Note - Pharmacy 05/05/25 1614 MR#: [id number] Acct: [id number] Name: TREVON RAMAN Rep #:[id number] 2 : 1985 40 From: Gary choe PCP: Dr. Josh Meier MD Status:ADM IN [facility] Counseling Pharmacy Services has performed discharge medication counseling for this patient. The patient was counseled on the following discharge medications and changes in medications for homegoing review. - Oxacillin for injection, Oxycodone 5 mg tablet The Reason for Use, instructions for use, and potential side effects were reviewed for all new medications. The patient's questions regarding all of their medications were answered. The patient was able to verbally demonstrate an understanding of their dischargemedications. Medications at Discharge Home Medications blood sugar diagnostic (FreeStyle Lite Strips) #150 ea 10/05/21 lancets 28 gauge (FreeStyle Lancets) #150 ea 09/06/22 blood sugar diagnostic (True Metrix Glucose Test Strip) #100 ea 09/13/24 pen needle, diabetic 32 gauge x 5/32 (BD Ultra-Fine Amy Pen Needle) #200 ea 10/12/24 insulin glargine 100 unit/mL (3 mL) subcutaneous pen (Lantus Solostar U-100 Insulin) 40 unit (0.4 mL) subcut QHS #15 mL 03/11/25 meloxicam 15 mg tablet 15 mg PO QDAY #30 tabs 04/19/25 tizanidine 6 mg capsule 6 mg PO TID PRN muscle spasticity #30 caps 04/19/25 acetaminophen 500 mg tablet (Acetaminophen Extra Strength) 1,000 mg PO Q6H PRN back pain 04/28/25 fenofibrate nanocrystallized 145 mg tablet 145 mg PO DAILY 04/28/25 insulin aspart U-100 100 unit/mL (3 mL) subcutaneous pen (Novolog FlexPen U-100 Insulin aspart) See Protocol subcut TID 04/28/25 oxacillin 2 gram/50 mL in dextrose (iso-osmotic) intravenous piggyback 12 g (300mL) IV Q24H 39 days 05/04/25 blood-glucose sensor (FreeStyle Monse 3 Plus Sensor device) #6 ea 05/05/25 oxycodone 5 mg tablet 5 mg PO Q6H PRN PRN Pain Score 4-10 3 days #12 tabs 05/05/25 05/05/25 1615 <Electronically signed by Gary Rosas> Date _ Gary Romeo Signature (if applicable): Date CC: ~ Signed [facility] Work Phone: Discharge summary Author Khadar Casey [facility] Note Date/Time May 05, 2025 1 :23pm [facility] Medical Records Department [address] [facility] [place] [address] Discharge Summary 05/05/25 1314 MR#: [id number] Acct: [id number] Name: TREVON RAMAN Rep #:[id number] 5 : 1985 40 From: Khadar Casey DO PCP: Dr. Josh Meier MD Status:ADM IN [id number] Providers Date of Admission: 04/28/25 Primary Care Physician: Dr. Josh Meier MD Consultations 04/28/25 22:04 Consult: Orthopedics Routine Consulting Provider: Gabriele Tafoya Reason for Consult: lumbar discitis EMERGENT Consult: No MD Notified: Yes Date Notified: 04/28/25 Time Notified: 21:28 Method of Notification: ED Physician Initiated Consult: Podiatry Routine Consulting Provider: Aminah Ann Reason for Consult: infected right second toe EMERGENT Consult: No MD Notified: Yes Date Notified: 04/28/25 Time Notified: 09:16 Method of Notification: Verbal 04/29/25 02:05 Consult: Supply Chain Program Manager / Pulmonary Medicine Routine Consulting Provider: Intensivists/Pulmonary Med Reason for Consult: sepsis due to discitis EMERGENT Consult: No MD Notified: No Date Notified: 04/29/25 Time Notified: 02:05 04/29/25 07:17 Consult: Infectious Disease Routine Consulting Provider: Deangelo Arroyo Reason for Consult: discitis EMERGENT Consult: No MD Notified: Yes Date Notified: 04/29/25 Time Notified: 07:17 Method of Notification: Text 04/29/25 07:38 Consult: Onc/Wound/word processing specialist Routine Comment: Reason for Consult:: RLE and R great toe wounds Reason For Visit: SEPSIS DUE TO LUMBAR DISCITIS/OSTEOMYELITIS Diagnosis Discharge Diagnosis (1) Sepsis: Status: Acute Code(s): A41.9 - Sepsis, unspecified organism Plan Sepsis secondary * POA. Refer to H+P for criteria. * 2/2 diskitis, left elbow cellulitis and right 2nd toe infection. Bacteremia * likely 2/2 wound which likely led to diskitis * S. aureus * follow up cultures from the so far negative. Repeat blood cultures performed today pending. * Echo shows an EF 65%. * on amp/sb. Plan for oxacilin for 6 weeks. Diskitis * to staph aureus 2/2 acute discitis versus osteomyelitis of the lumbar spine * Outpatient MRI of lumbar spine showed abnormal signal within L4-L5 intervertebral disc and L4-L5 vertebral bodies consistent with acute edema with extension into the left paravertebral soft tissues and psoas muscle at L4-L5 as well as displacement of L4 nerve root so patient came to the ED * Spine surgery consulted-no present acute surgical indication * Infectious disease consulted * 2 of 2 blood cultures positive thus far for gram-positive cocci in clusters, first blood culture growing Staph aureus * 05/01 blood cultures negative. Repeat blood cultures on the pending. Left elbow cellulitis * septic arthritis ruled out. * Ortho and ID on consult * Broad-spectrum antibiotics * Left upper extremity CT with soft tissue swelling but no effusion however given limited range of motion and pain Ortho with plan to attempt to aspirate joint as patient would need to OR if any evidence of infection Right second toe infection * Podiatry consulted * Debrided at bedside * Patient on antibiotics, ID also on consult * 05/01: Toe growing Staph aureus and strep B, ID following, patient remains on vancomycin and Unasyn, further culture and sensitivity data pending Type 2 diabetes mellitus * Glucose checks and sliding scale insulin * Continue long-acting insulin * Glucose elevation likely exacerbated by underlying infection * continue glarine, adjusting prandial insulin based on his carbs. Continue SSI. Back pain * paraspinal muscle tenderness. Right oblique strain * add lidoderm patch. continue zanaflex. * encouraged increased activity. SHWETHA-resolved * On presentation creatinine 1.69 up from a baseline of around 1, has subsequently downtrended DVT ppx: SCDs Medications at Discharge Home Medications blood sugar diagnostic (FreeStyle Lite Strips) #150 ea 10/05/21 lancets 28 gauge (FreeStyle Lancets) #150 ea 09/06/22 blood sugar diagnostic (True Metrix Glucose Test Strip) #100 ea 09/13/24 pen needle, diabetic 32 gauge x 5/32 (BD Ultra-Fine Amy Pen Needle) #200 ea 10/12/24 insulin glargine 100 unit/mL (3 mL) subcutaneous pen (Lantus Solostar U-100 Insulin) 40 unit (0.4 mL) subcut QHS #15 mL 03/11/25 meloxicam 15 mg tablet 15 mg PO QDAY #30 tabs 04/19/25 tizanidine 6 mg capsule 6 mg PO TID PRN muscle spasticity #30 caps 04/19/25 acetaminophen 500 mg tablet (Acetaminophen Extra Strength) 1,000 mg PO Q6H PRN back pain 04/28/25 fenofibrate nanocrystallized 145 mg tablet 145 mg PO DAILY 04/28/25 insulin aspart U-100 100 unit/mL (3 mL) subcutaneous pen (Novolog FlexPen U-100 Insulin aspart) See Protocol subcut TID 04/28/25 oxacillin 2 gram/50 mL in dextrose (iso-osmotic) intravenous piggyback 12 g (300mL) IV Q24H 39 days 05/04/25 blood-glucose sensor (FreeStyle Monse 3 Plus Sensor device) #6 ea 05/05/25 oxycodone 5 mg tablet 5 mg PO Q6H PRN PRN Pain Score 4-10 3 days #12 tabs 05/05/25 Hospital Course Operations None Procedures PICC line placement Summary of Care Provided Hospital Course: Patient presents with sepsis secondary to Staph aureus bacteremia with subsequent discitis, left elbow cellulitis. Patient will be discharged with oxacillin for 6 weeks. PICC line was placed. Weight / BMI Weight Weight: 116.6 kg Body Mass Index (BMI) 34.0 ABG / Lab / Microbiology Data 05/05/25 05:52 05/05/25 05:52 Laboratory: Laboratory Results - last 24 hr 05/04/25 16:02: POC Glucose 205 H 05/04/25 21:53: POC Glucose 224 H 05/05/25 05:52: WBC 9.8, RBC 3.47 L, Hgb 9.8 L, Hct 29.9 L, MCV 86.2, MCH 28.2, MCHC 32.8, RDW Std Deviation 38.7, RDW Coeff of Sharon 12.3, Plt Count 569 H, MPV 9.1, Immature Gran % (Auto) 1.500 H, Neut % (Auto) 63.0, Lymph % (Auto) 22.4, Isabella % (Auto) 9.2, Eos % (Auto) 3.2, Baso % (Auto) 0.7, Absolute Neuts (auto) 6.1, Absolute Lymphs (auto) 2.18, Nucleated RBC % 0, Sodium 134, Potassium 4.5, Chloride 99, Carbon Dioxide 23.0, Anion Gap 11, BUN 26 H, Creatinine 1.11, EstimCreat Clear Calc 117.64, Est GFR (MDRD) Non-Af 86, BUN/Creatinine Ratio 23.8 H, Glucose 250 H, Calcium 9.1 05/05/25 07:54: POC Glucose 276 H 05/05/25 11:06: POC Glucose 277 H Microbiology: Microbiology 04/30/25 12:00 Fluid - Synovial (joint) Gram Stain - Final 04/30/25 12:00 Fluid - Synovial (joint) Body Fluid Culture - Final Culture exhibits no growth. 04/30/25 12:00 Fluid - Synovial (joint) Anaerobic Culture - Final No anaerobic bacteria isolated. 05/01/25 15:38 Blood Culture (Wb) - Right Hand Blood Culture - Preliminary No growth in 48 hours. 05/01/25 15:34 Blood Culture (Wb) - Anticubital Right Blood Culture - Preliminary No growth in 48 hours. 04/28/25 18:10 Blood Culture (Wb) - Right Hand Blood Culture - Final Staphylococcus aureus 04/29/25 10:43 Wound - Toe Gram Stain - Final 04/29/25 10:43 Wound - Toe Wound Culture - Final Staphylococcus aureus Streptococcus agalactiae (B) 04/28/25 17:41 Blood Culture (Wb) - Anticubital Left Bacteria Detection (PCR) - Final Staphylococcus aureus 04/28/25 17:41 Blood Culture (Wb) - Anticubital Left Blood Culture - Final Staphylococcus aureus 04/29/25 01:30 Urine, Clean Catch Urine Culture - Final Staphylococcus aureus D/C Instructions DC O2, CPAP, BIPAP Needs Home O2 Discharge instructions: No Meaningful Use Info Meaningful Use Meaningful Use Diagnoses (Choose all that apply): None applicable Discharge Plan Admission Admit Date/Time: 04/28/25 20:25 Primary Reason for Your Visit: Bacteremia. Discitis. Attending Provider: Khadar Casey Primary Care Provider: Josh Meier Consulting Providers: Kristin Hernandes; Deangelo Arroyo; Gabriele Tafoya; Aminah Ann; Jim Burger; Park Zamora Discharge Orders/Prescriptions Prescriptions: New oxacillin in dextrose(iso-osm) 2 gram/50 mL piggyback 12 g IV Q24H 39 Days Rx Instructions: stop date 06/12/25. Dx: mssa discitis. 12gm iv oxacillin given as continuous infusion q24h. Weekly bmp, cbc, and LFT. Fax to [phone]. Routine picc care per protocol. oxycodone 5 mg Tablet 5 mg PO Q6H PRN PRN (Reason: Pain Score 4-10) 3 Days Qty: 12 0RF Continued (DME) FreeStyle Lite Strips Strip See Rx Instructions .ROUTE .MEDSUPPLY Qty: 150 6RF Rx Instructions: 5 times daily (DME) lancets [FreeStyle Lancets] 28 gauge misc See Rx Instructions .ROUTE .MEDSUPPLY Qty: 150 6RF Rx Instructions: 5 times daily insulin glargine [Lantus Solostar U-100 Insulin] 100 unit/mL (3 mL) insulin pen 40 unit SC QHS Qty: 15 6RF tizanidine 6 mg capsule 6 mg PO TID PRN (Reason: muscle spasticity) Qty: 30 0RF meloxicam 15 mg tablet 15 mg PO QDAY Qty: 30 0RF fenofibrate nanocrystallized 145 mg tablet 145 mg PO DAILY insulin aspart U-100 [Novolog FlexPen U-100 Insulin] 100 unit/mL (3 mL) insulin pen See Protocol SC TID Protocol: 6. Sliding Scale Insulin Custom Condition: 1 Dose/Route: Number of Units Instruction: FOR EVERY 8 CARBS CONSUMED Protocol Text: Custom Sliding Scale acetaminophen [Acetaminophen Extra Strength] 500 mg tablet 1,000 mg PO Q6H PRN (Reason: back pain) Patient Comments: PT STATES HE TAKES 1000MG IN THE MORNING AND BEFORE BED (DME) True Metrix Glucose Test Strip Strip See Rx Instructions .Route Qty: 100 4RF Rx Instructions: As directed (DME) pen needle, diabetic [BD Ultra-Fine Amy Pen Needle] 32 gauge x 5/32 needle See Rx Instructions .ROUTE .MEDSUPPLY Qty: 200 6RF Rx Instructions: 6 times daily (DME) FreeStyle Monse 3 Plus Sensor Device See Rx Instructions .Route Qty: 6 1RF Rx Instructions: As directed Referrals / Follow Up: Josh Meier MD [Primary Care Provider, Internal Medicine] Deangelo Arroyo MD [Med Staff - Active Staff, Infectious Disease] - Within 2 Weeks Disposition Disposition (needs filled in before D/C Order can be placed): Home, Self Care Charges/Coding Visit Charges Inpatient E&M: 18631 Disch Hosp 05/05/25 1323 <Electronically signed by Khadar Casey DO> Cosigner Signature (if applicable): CC: Dr. Josh Meier MD; Dr. Khadar Casey DO~ Signed [facility] Work Phone: Evaluation + Plan note No data available for this section [facility] Evaluation note* Diagnosis Skin infection- Primary Unspecified local infection of skin and subcutaneous [facility], acute- Primary Acute upper respiratory infections of unspecified site Suspected COVID-19 virus infection [facility] Diagnosis Onset Date Resolution Status Diabetic neuropathy chronic Obesity chronic Type 1 diabetes mellitus chr onic Diabetic retinopathy associa gabby with type 1 diabetes mellitus acute Diabetic neuropathy chronic Type 1 diabetes mellitus chr onic [facility] Work Phone: Evaluation note* Diagnosis Skin infection- Primary Unspecified local infection of skin and subcutaneous tissue [facility] Diagnosis Onset Date Resolution Status Diabetes mellitus type 1 chr onic Diabetic neuropathy chronic Diabetic retinopathy associa gabby with type 1 diabetes mellitus chronic Obesity chronic Diabetes mellitus with foot ulcer acute Delayed wound healing chroni c Diabetes mellitus type 1 chr onic Diabetic neuropathy chronic Ulcer of right foot with fat layer exposed chronic [facility] Work Phone: Evaluation note* Diagnosis Onset Date Resolution Status Diabetes mellitus with foot ulcer acute Delayed wound healing chroni c Diabetes mellitus type 1 chr onic Diabetic neuropathy chronic Ulcer of right foot with fat layer exposed chronic Diabetes mellitus with foot ulcer acute Delayed wound healing chroni c Diabetes mellitus type 1 chr onic Diabetic neuropathy chronic Ulcer of right foot with fat layer exposed chronic [facility] Work Phone: Evaluation note* Diagnosis Onset Date Resolution Status Diabetes mellitus with foot ulcer acute Delayed wound healing chroni c Diabetes mellitus type 1 chr onic Diabetic neuropathy chronic Ulcer of right foot with fat layer exposed chronic Diabetes mellitus with foot ulcer acute Delayed wound healing chroni c Diabetes mellitus type 1 chr onic Diabetic neuropathy chronic Ulcer of right foot with fat layer exposed chronic Diabetes mellitus with foot ulcer acute Type 1 diabetes mellitus with diabetic polyneuropathy acute Delayed wound healing chroni c Ulcer of right foot with fat layer exposed chronic [facility] Work Phone: Evaluation note* Diagnosis Onset Date Resolution Status Diabetes mellitus with foot ulcer acute Delayed wound healing chroni c Diabetes mellitus type 1 chr onic Diabetic neuropathy chronic Ulcer of right foot with fat layer exposed chronic Diabetes mellitus with foot ulcer acute Delayed wound healing chroni c Diabetes mellitus type 1 chr onic Diabetic neuropathy chronic Ulcer of right foot with fat layer exposed chronic Diabetes mellitus with foot ulcer acute Delayed wound healing chroni c 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 Ulcer of right foot with fat layer exposed chronic Diabetes mellitus with foot ulcer acute Diabetic retinopathy associa gabby with type 1 diabetes mellitus chronic Obesity chronic 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 Diabetes mellitus with foot ulcer acute Delayed wound healing chroni c 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 Ulcer of right foot with fat layer exposed chronic [facility] Work Phone: Evaluation note* Diagnosis Rhinosinusitis- Primary Unspecified sinusitis (chronic) [facility] Diagnosis Diarrhea, unspecified type- Primary [facility] Diagnosis Sore throat- Primary Acute pharyngitis Strep throat Streptococcal sore throat [facility]* Diagnosis Sinobronchitis- Primary Unspecified sinusitis (chronic) [facility]* Diagnosis Thumb pain, left- Primary Thumb pain, left [facility]* Diagnosis Thumb pain, left [facility]* Diagnosis Foot pain, left Pain in limb [facility]* Diagnosis Urinary frequency- Primary Acute left-sided low back pain without sciatica [facility] Author Kristin [facility] Note Date/Time April 29, 2025 6 :[address] [place] [address] System Medical Records Department [address] [place] [id number] H&P Exam - Hospitalist 04/28/252008 MR#: [id number] Acct: [id number] Name: TREVON RAMAN Rep #:[id number] : 1985 40 From: Kristin Hernandes MD PCP: Dr. Josh Meier MD Status:ADM IN Location: ICU CVICU20 1-1 HPI - General General Date of Admission: 04/28/25 Date of Service: 04/28/25 Chief Complaint: back pain HPI Narrative TREVON RAMAN, is a 40 Mn with a PMH as outlined who was admitted via the ED on 04/28/2025 with a complaitn of severe, intractable back pain and left elbow pain. He has a history of type 1 diabetes mellitus and amputation of right foot o/a of diabetes/ HE has been having the back pain since February 2025, and says maritzahad an outpatient MRI done on which showed evidence of osteomyelitis/discitis. He also complaiend of right elbow pain. He admitted to chills and denied any nausea, vomiting or any other symptoms. He has not had anyback surgery in the past. He also denied any trauma to his right elbow. He was therefore called and told to come to the ED. Vitals in the ED were BP of 121/61, [place] of 119, RR of 20 and temp of 100.2F. She was saturating at 99% on room air. CBC showed wbc of 14, Hb of 11.9 and platelets of 425. INR is 1.2. CHemistry showed sodium of 130, potassium of 5.6 and bicarb of 18.7. Cr is 1.69 and anion gap is 17. Lactic acid was 2.8. ALP wasmildly elevated at 156 but AST and ALT as well as total bilirubin was normal. CXR showed no acute cardiopulmonary pathology. Left elbow x-ray showed no left elbow joint effusion or any acute pathology. He has been admitted to the managefor sepsis due to discitis versus osteomyelitis of the lumbar spine. [facility] Medical History Hypertriglyceridemia Wears glasses Insulin dependent diabetes mellitus Back pain Migraine headache Syncope Dietary restriction Vapes nicotine containing substance History of pain when walking History of edema Diabetic retinopathy associated with type 1 diabetes mellitus Diabetic neuropathy Osteomyelitis of foot, right, acute DKA (diabetic ketoacidoses) Cellulitis of leg Sepsis Type 1 diabetes mellitus Home Medications ?Medication ?Instructions ?Recorded ?Last Taken ?Type blood sugar diagnostic (FreeStyle #150 ea 10/05/21 Unk nown Rx Lite Strips) lancets 28 gauge (FreeStyle #150 ea 09/06/22 Unknown R x Lancets) blood sugar diagnostic (True #100 ea 09/13/24 Unknown Rx Metrix Glucose Test Strip) pen needle, diabetic 32 gauge x #200 ea 10/12/24 Unkno wn Rx (BD Ultra-Fine Amy Pen Needle) blood-glucose sensor (FreeStyle #6 ea 03/11/25 Unknown Rx Monse 3 Plus Sensor device) insulin glargine 100 unit/mL (3 40 unit (0.4 mL) subcu t QHS #15 mL 03/11/25 04/27/25 Rx mL) subcutaneous pen (Lantus Solostar U-100 Insulin) meloxicam 15 mg tablet 15 mg PO QDAY #30 tabs 04/1904/28/25 Rx tizanidine 6 mg capsule 6 mg PO TID PRN muscle spast icity 04/19/25 04/28/25 Rx #30 caps acetaminophen 500 mg tablet 1,000 mg PO Q6H PRN back p ain 04/28/25 04/28/25 History (Acetaminophen Extra Strength) fenofibrate nanocrystallized 145 145 mg PO DAILY 04/28 Unknown History mg tablet insulin aspart U-100 100 unit/mL See Protocol subcut T ID 04/28/25 Unknown History (3 mL) subcutaneous pen (Novolog FlexPen U-100 Insulin aspart) Allergy/AdvReac Type Severity Reaction Status Date / Time cefprozil (From Cefzil) Allergy Unknown Unknown Verified 04/28/25 17:08 Environmental Allergies: Allergy Hives Verified 04/28/25 17:08 Uncoded Family History Father Heart disease Hypertension Mother Diabetes Thyroid disorder Surgical History History of amputation of lesser toe of right foot Social History household members: spouse current occupational status: unemployed Smoking Status: Former smoker Electronic Cigarette Use: with nicotine quit status: considering quitting alcohol intake: never substance use type: does not use what type of physical activity do you participate in: other details: Sometimes do you feel safe at home: Yes ROS Review of Systems ROS Unobtainable: Denies due to encephalopathy Constitutional Constitutional: Reports chills, fatigue, fever(s), malaise and weakness; Denies anorexia Eyes Eyes: Denies change in vision ENT HEENT: Denies dysphagia, headache(s) or sore throat Cardiovascular Cardiovascular: Denies chest pain, dyspnea on exertion, edema, lightheadedness, orthopnea, palpitations, rapid heart rate or syncope Respiratory/Chest Respiratory/Chest: Denies cough, dyspnea, shortness of breath at rest or shortness of breath with exertion Gastrointestinal Gastrointestinal: Denies abdominal pain, constipation, diarrhea, nausea or vomiting Genitourinary Genitourinary: Denies burning urination, dysuria or nocturia Musculoskeletal Musculoskeletal: Denies joint pain Neurologic Neurologic: Denies confusion, dizziness, focal weakness, headache(s), numbness, paresthesias, seizure-like activity, seizures or syncope Psychiatric Psychiatric: Denies anxiety or depression Vital Signs Vital Signs Vital Signs: 04/28/25 17:06 04/28/25 17:06 04/28/25 17:14 Temperature 98.2 F Temperature Source Oral Pulse Rate 143 H Respiratory Rate 20 H Respiratory Effort Normal Short of Breath Respiratory Depth Normal Respiratory Pattern Normal Blood Pressure 97/67 Blood Pressure Mean 77 Pulse Ox 100 Oxygen Delivery Method Room Air Room Air Room Air 04/28/25 18:06 04/28/25 18:08 04/28/25 19:00 Temperature 98.5 F 100.4 F H Temperature Source Oral Oral Pulse Rate 127 H 125 H 121 H Respiratory Rate 14 17 20 H Respiratory Effort Respiratory Depth Respiratory Pattern Blood Pressure 146/80 H 142/69 H 142/70 H Blood Pressure Mean 102 93 94 Pulse Ox 99 100 100 Oxygen Delivery Method Room Air Room Air 04/28/25 19:27 Temperature 100.4 F H Temperature Source Pulse Rate 116 H Respiratory Rate 20 H Respiratory Effort Respiratory Depth Respiratory Pattern Blood Pressure 139/71 H Blood Pressure Mean 93 Pulse Ox 98 Oxygen Delivery Method Weight Weight: 257 lb 9 oz Body Mass Index (BMI) 34.9 Physical Exam Const alert and oriented x3 General Appearance: cooperative HEENT normocephalic and head/scalp atraumatic HEENT Narrative: dry oral mucosa Mouth: oral and palatal mucosa normal Eyes conjunctivae normal Neck supple and no JVD Resp normal respiratory effort, no use of accessory muscles and clear to auscultationbilaterally Resp Narrative: tachypneic Cardio regular rhythm, S1 normal heart sound, S2 normal heart sound and no murmurs Cardio Narrative: tachycardic GI normal to inspection, nondistended, normoactive bowel sounds, soft to palpation,non-tender and non-distended Extremity normal to inspection and full ROM Skin Skin Narrative: erythema over left elbow, minimal differential warmth, able to flex and extend left arm at elbow Neuro moves all extremities and no focal motor deficits Sensorium / Orientation: awake and alert Motor Exam: strength 5/5 throughout Psych affect normal Results Lab / Micro Data 04/28/25 17:41 04/28/25 17:41 Labs: Laboratory Results - last 24 hr 04/28/25 17:41: WBC 14.0 H, RBC 4.13 L, Hgb 11.9 L, Hct 35.7 L, MCV 86.4, MCH 28.8, MCHC 33.3, RDW Std Deviation 38.7, RDW Coeff of Sharon 12.2, Plt Count 425, MPV 9.5, Immature Gran % (Auto) 0.600, Neut % (Auto) 82.4 H, Lymph % (Auto) 10.7L, Isabella % (Auto) 5.4, Eos % (Auto) 0.5, Baso % (Auto) 0.4, Absolute Neuts (auto)11.5 H, Absolute Lymphs (auto) 1.50, Nucleated RBC % 0, ESR 28 H, PT 15.0 H, INR1.2, APTT 32.6, Sodium 130 L, Potassium 5.6 H, Chloride 94 L, Carbon Dioxide 18.7 L, Anion Gap 17 H, BUN 27 H, Creatinine 1.69 H, Estim Creat Clear Calc 76.67, Est GFR (MDRD) Non-Af 52 L, BUN/Creatinine Ratio 15.8, Glucose 295 H, Lactic Acid 2.8 H*, Calcium 9.7, Total Bilirubin 0.97, AST 21, ALT 25, Alkaline Phosphatase 156 H, C-React Prot Ext Range 102.00 H, Total Protein 8.9 H, Albumin3.6, Globulin 5.3 H, Albumin/Globulin Ratio 0.7 L Rhythm Strip Rhythm Strip: Sinus Tach Rate: 138 Ectopy: None Imaging Radiology Impression Chest X-Ray 04/28/25 17:55 IMPRESSION: Lungs appear clear throughout. No pleural effusion or pneumothorax is noted. The cardiomediastinal silhouette is within the normal range. Bilateral acromioclavicular joint degenerative changes are noted. No acute osseous change is seen. Reading Location: [id number] Elbow X-Ray 10/16/25 17:55 IMPRESSION: No left elbow joint effusion is seen. No significant arthritic process or joint narrowing is noted. No fracture, dislocation, or other significant osseous or joint space abnormality is seen. Reading Location: [address] Assessment & Plan Assessment/Plan (1) Sepsis: (2) Discitis: PLAN: Plan #Sepsis due to as acute discitis versus osteomyelitis of the lumbar spine * Patient has a history of type 2 diabetes mellitus. He has had chronic intractable back pain since WHICH has gradually worsened. * He had outpatient MRI of the lumbar spine done yesterday which showed abnormal signal within the L4-5 intervertebral disc which may indicate discitis and abnormal signal within the L4-L5 vertebral bodies consistent with acute edema and extension into the left paravertebral soft tissues and psoas muscle at L4- L5 level as well as displacement of the L4 nerve root. * Was therefore told to come to the ED. Patient is tachypneic and tachycardic and WBC is also elevated at 14. He did have a temperature of 100.2 Fahrenheit and lactic acid is also elevated at 2.8. * Admit to ICU as a precaution due to his sepsis and propensity to decline. * Started on IV vancomycin and Zosyn. Blood cultures ordered. Consult spine surgery. * PT/OT consult * fall precaution * #SHWETHA with hyperkalemia: * Potassium is 5.6. Creatinine is 1.69 with a baseline of around 1. Hold all nephrotoxic meds. Give sodium Kayexalate 30 g x 1. Hydrate with IV fluids. SHWETHA is likely prerenal in light of acute sepsis and decreased intake. #Anion gap metabolic acidosis likely due to SHWETHA and uremia: Anion gap is 17 and bicarb is 18.7. BUN is 27. Should improve with hydration. Lactic acid may also be contributing. #Probable cellulitis of the left elbow * Patient's left elbow is erythematous and mildly warm to touch. There is no significant swelling. * He is able to flex and extend at the elbow. On IV vancomycin and Zosyn which should cover for any possible infection. The right elbow x-ray showed no left elbow joint effusion or significant arthritis, no fracture, dislocation or any other significant finding. * #Hyperlipidemia: On fenofibrate #Type 2 diabetes mellitus: On Lantus 40 units nightly. Insulin sliding scale. Accu-Cheks ACHS. DVT prophylaxis: Lovenox renally dosed CODE STATUS:full code * Patient counseled extensively about different types of CODE STATUS including full code, DNR CCA and DNR CCA. Patient elects to be full code. * Total [id number] time 16 minutes. Charges/Coding Visit Charges Inpatient E&M: 63748 Init Hosp L3 Procedures Hospitalists Procedures: 90125 Advncd Care Plan 30 Min 04/29/25 0643 <Electronically signed by Kristin Hernandes MD> Cosigner Signature (if applicable): CC: Dr. Josh Meier MD; Dr. Kristin Hernandes MD~ Signed [facility] Work Phone: Hospital Discharge instructionsAmbulatory Orders* PT Referral Location: None Selected [facility] Work Phone: Hospital Discharge instructionsAmbulatory Orders* Orthopedics Location: None Selected [facility] Work Phone: Hospital Discharge instructionsAmbulatory Orders* Physical Therapy Referral Location: None Selected * Pain Management Location: None Selected [facility] Work Phone: Progress note Author Antonietta Capps [facility] Note Date/Time April 04, 2025 12:47pm [facility] [address] [place] [address] [place] [address] OFFICE VISIT Date of Service: 04/04/25 MR#: [id number] Acct: [id number] Name: TREVON RAMAN Rep #: [id number] : 1985 Provider: HENRY Capps Age/Sex: 39/M Location: [facility] [place] Status: Signed Intake Vital Signs 03/11/25 09:25 04/04/25 12:26 Height 6 ft 6 ft Weight: 274 lb 261 lb BMI 37.1 35.4 BP 127/84 H 118/66 Blood Pressure Location Lt brachial Lt brachial Position Sitting Sitting Respiration 18 Pulse 94 114 H Pulse Source Monitor Monitor Temp 97.2 F L Temp Source Temporal Pulse Oximetry (%) 98 97 Oxygen Delivery Method room air room air Intake Visit Reasons: DISCUSS PAIN MNGMT Chief Complaint: DISCUSS PAIN MNGMT Is patient in pain?: Yes (10 all over ) Allergies cefprozil (From Cefzil) Allergy (Unknown, Verified 04/04/25 12:24) Unknown Environmental Allergies: Uncoded Allergy (Verified 04/04/25 12:24) Hives Medications ?Medication ?Instructions ?Recorded ?Confirmed ?Type blood sugar diagnostic (FreeStyle #150 ea 10/05/21 Rx Lite Strips) lancets 28 gauge (FreeStyle #150 ea 09/06/22 04/04/25 Rx Lancets) fenofibrate nanocrystallized 145 145 mg PO QDAY #90 ta bs 06/03/24 04/04/25 Rx mg tablet blood sugar diagnostic (True #100 ea 09/13/24 04/04/25 Rx Metrix Glucose Test Strip) pen needle, diabetic 32 gauge x #200 ea 10/12/2404/04 Rx (BD Ultra-Fine Amy Pen Needle) naproxen 500 mg tablet 500 mg PO BID PRN pain #60 t abs 01/03/25 04/04/25 Rx varenicline tartrate 1 mg tablet 1 mg PO BID #56 tabs 01/03/25 04/04/25 Rx (Chantix Continuing Month Box) blood-glucose sensor (FreeStyle #6 ea 03/11/25 5 Rx Monse 3 Plus Sensor device) insulin aspart U-100 100 unit/mL 50 unit (0.5 mL) subc ut TID #45 mL 03/11/25 04/04/25 Rx (3 mL) subcutaneous pen (Novolog FlexPen U-100 Insulin aspart) insulin glargine 100 unit/mL (3 40 unit (0.4 mL) subcu t QHS #15 mL 03/11/25 04/04/25 Rx mL) subcutaneous pen (Lantus Solostar U-100 Insulin) cyclobenzaprine 10 mg tablet 10 mg PO BID PRN muscle p ain #30 04/04/25 04/04/25 Rx tabs prednisone 10 mg tablets in a dose See Rx Instructions PO PER PKG DIR 04/04/25 04/04/25 Rx pack #48 tabs Have you fallen in the past year?: No [facility] Medical History (Updated 04/04/25 @ 12:51 by HENRY Petersen) Hypertriglyceridemia Wears glasses Insulin dependent diabetes mellitus Back pain Migraine headache Syncope Dietary restriction Vapes nicotine containing substance History of pain when walking History of edema Diabetic retinopathy associated with type 1 diabetes mellitus Diabetic neuropathy Osteomyelitis of foot, right, acute DKA (diabetic ketoacidoses) Cellulitis of leg Sepsis Type 1 diabetes mellitus Surgical History History of amputation of lesser toe of right foot Family History Father Heart disease Hypertension Mother Diabetes Thyroid disorder Social History household members: spouse current occupational status: unemployed Smoking Status: Current every day smoker tobacco type: e-cigarettes Electronic Cigarette Use: with nicotine quit status: considering quitting alcohol intake: never substance use type: does not use what type of physical activity do you participate in: other details: Sometimes do you feel safe at home: Yes HPI HPI Chief Complaint: DISCUSS PAIN MNGMT Details: TREVON RAMAN, is a 39 M who presents to the office today for complains of increased back pain. Patient states over the past 3 weeks he has had severe back pain. He saw a chiropractor for this pain approximately 1 to 2 weeks ago he had an x-ray that showed some changes in the lower spine. He states the pain has been so severe he even thought maybe he would be better off however he does not have any suicidal ideations or have not had any suicideattempts. He has not seen orthopedics for this in the past rates his pain at isha 10 out of 10. Has used [id number] Tylenol ibuprofen and Aleve for pain with little result. Denies numbness or tingling in legs. Denies loss of bowel or bladder. Patient states the pain started after he slept on the couch. No other questions or concerns at this time ROS Const Constitutional: No body ache, chills, excessive sweating, fatigue, fever(s), frequent falls, headache(s), snoring, weight change, sleep problems, abnormal sleep pattern or change in appetite Eyes Eyes: No blurry vision, change in vision, eye pain or Light sensitivity ENT ENT: No abnormal hearing, ear or mastoid pain, tinnitus, nasal congestion, headache(s), neck pain or sore throat Resp Respiratory: No cough, shortness of breath, snoring or wheezing Cardio Cardiology: No chest pain at rest, chest pain with exertion, excessive sweating,shortness of breath, dyspnea on exertion, lightheadedness, orthopnea or palpitations Gastro GI: No abdominal pain, change in bowel habits, constipation, cramping, diarrhea,nausea/dyspepsia or vomiting Genitourinary Male: No burning urination, painful urination, urinary incontinence or urinary frequency Musc Musculoskeletal: No abnormal gait, joint pain, back pain, limited range of motion, neck pain, numbness or tingling Skin Skin: No dry skin, redness, lesions, itchy eyes, rash or wounds Neuro Neurology: No abnormal gait, abnormal hearing, frequent falls, headache(s), memory loss, numbness or tingling Psych Psychiatric: No abnormal sleep pattern, No anxiety, No change in appetite, No irritability, No memory loss and No Thoughts of harming yourself/Others Endo Endocrine: No cold intolerance, excessive sweating, fatigue, flushing, heat intolerance, increased thirst/drinking, increased hunger or weight change Aller/Imm Allergy/Immunologic: No itchy eyes, seasonal allergy symptoms, hives or wheezing Juanito/Lymp Hematologic/Lymphatic: No easy bleeding, easy bruising, enlarged lymph nodes or other Exam Const General: cooperative, no acute distress and well developed Nutritional Appearance: well nourished Orientation: alert and oriented x3 [facility] Head: normal to inspection and normocephalic Ears: hearing grossly normal bilaterally Nose: external nose normal Face and sinus: normal facial exam Mouth: oral mucosae normal Eyes General: appearance normal, both eyes and all related structures Neck Neck: normal visual inspection, trachea midline and nontender Thyroid: thyroid normal Lymphatic: no lymphadenopathy noted Chest Chest palpation & inspection: normal inspection of the chest Resp Effort & Inspection: normal respiratory effort, able to speak in complete sentences and symmetric chest movement Auscultation: Bilateral: Clear to Auscultation Cardio Palpation: normal PMI Rate: regular rate Rhythm: regular rhythm Heart Sounds: S1 normal and S2 normal GI Inspection: normal to inspection Musc Musculoskeletal: Yes joint tenderness and joint warmth Cervical Spine: No cervical spinal tenderness Thoracic/Lumbar Spine: thoracic and lumbar spine normal to inspection, straight leg raise negative bilaterally and scoliosis Sacroiliac joints: on the right, on the left and bilaterally Sacrum: tenderness Coccyx: tenderness Skin General: no rashes or lesions noted Neuro General: patient alert, patient oriented x3, no meningeal signs and deep tendon reflexes 2+ bilaterally Cognition: normal cognition Speech: speech normal Extrem General: normal to inspection and capillary refill normal Coding Level of Care Code Established Pt Off vis,est,level 3 Patient Type Established History Expanded Problem Focused Exam Expanded Problem Focused Medical Decision Making Low Complexity Diagnoses Back pain of lumbar region with sciatica M54.40 Time Spent (min) 30 Assessment and Plan Assessment and Plan (1) Back pain of lumbar region with sciatica: Status: Acute Plan: Will treat with Flexeril and prednisone at this time for pain relief and refer to orthopedics for further evaluation. Orders: Referrals Orthopedics M54.40 - Lumbago with sciatica, unspecified side, M54.9 - Dorsalgia, unspecified Medications: New prednisone Day 1-4 take 6 tablets days 5-8 take 4 tablets days 9-12 take 2 tablets 48 tabs 0RF Refilled cyclobenzaprine 10 mg PO BID PRN 30 tabs 0RF muscle pain Plan Details Follow Up: As needed Clinical Quality Measures Falls Risk Screening/Assistive Devices Have you fallen in the past year?: No 04/04/25 6803 <Electronically signed by Antonietta FIGUEROA> Date _ Antonietta FIGUEROA Cosigner Signature: Date (if applicable) CC: ~ [employer] Work Phone: Progress note Author Jim Burger [facility] Note Date/Time April 29, 2025 7 :34am [facility] Medical Records Department [address] [place] [address] Progress Note - Hospitalist 04/29/25 0723 MR#: [id number] Acct: [id number] Name: TREVON RAMAN Rep #:[id number] 5 : 1985 40 From: Jim Burger MD PCP: Dr. Josh Meier MD Status:ADM IN Location: ICU [place] [address] 1-1 Reason for Visit Chief Complaint: back pain Subjective Subjective Patient is a 40-year-old gentleman admitted with intractable back pain as well as left elbow pain. He apparently had an MRI performed as outpatient which showed evidence of osteomyelitis/discitis Objective Data Objective Data Vital Signs: Vital Signs Temp Pulse Resp BP Pulse Ox O2 Del Method 98 F 95 23 H 138/78 H 98 Room Air 04/29/25 04:00 04/29/25 07:00 04/29/25 07:00 04/29/25 07:00 04/29/25 07:00 04/29/25 07:00 Oxygen Delivery Method Room Air Weight: 115.3 kg Body Mass Index (BMI) 33.5 Intake & Output: Intake and Output for Last 24 Hours 04/27/25 04/28/25 04/29/25 23:59 23:59 23:59 Intake Total 2640.00 / 2640.00 1893.75 / 1893.75 Balance 2640.00 / 2640.00 1893.75 / 1893.75 Lab / Micro Data 04/29/25 04:30 04/29/25 04:30 Labs: Laboratory Results - last 24 hr 04/28/25 17:41: WBC 14.0 H, RBC 4.13 L, Hgb 11.9 L, Hct 35.7 L, MCV 86.4, MCH 28.8, MCHC 33.3, RDW Std Deviation 38.7, RDW Coeff of Sharon 12.2, Plt Count 425, MPV 9.5, Immature Gran % (Auto) 0.600, Neut % (Auto) 82.4 H, Lymph % (Auto) 10.7L, Isabella % (Auto) 5.4, Eos % (Auto) 0.5, Baso % (Auto) 0.4, Absolute Neuts (auto)11.5 H, Absolute Lymphs (auto) 1.50, Nucleated RBC % 0, ESR 28 H, PT 15.0 H, INR1.2, APTT 32.6, Sodium 130 L, Potassium 5.6 H, Chloride 94 L, Carbon Dioxide 18.7 L, Anion Gap 17 H, BUN 27 H, Creatinine 1.69 H, Estim Creat Clear Calc 76.67, Est GFR (MDRD) Non-Af 52 L, BUN/Creatinine Ratio 15.8, Glucose 295 H, Lactic Acid 2.8 H*, Calcium 9.7, Total Bilirubin 0.97, AST 21, ALT 25, Alkaline Phosphatase 156 H, C-React Prot Ext Range 102.00 H, Total Protein 8.9 H, Albumin3.6, Globulin 5.3 H, Albumin/Globulin Ratio 0.7 L 04/28/25 22:22: Lactic Acid < 1.0 04/28/25 22:23: POC Glucose 240 H 04/29/25 00:49: POC Glucose 261 H 04/29/25 01:30: Urine Color Yellow, Urine Clarity Turbid, Urine pH 5.0, Ur Specific [place] 1.020, Urine Protein 100 H, Urine Glucose (UA) 100 H, Urine Ketones 50 H, Urine Occult Blood 150 H, Urine Nitrite Negative, Urine Bilirubin 1 H, Urine Urobilinogen 4 H, Ur Leukocyte Esterase 500 H, Urine RBC 5-10 SEEN, Urine WBC >100 SEEN, Ur Squamous Epith Cells 0-5 SEEN, Amorphous Sediment 2+, Urine Bacteria 2+, Urine Mucus 0 SEEN 04/29/25 04:30: WBC 8.7, RBC 3.16 L, Hgb 9.0 L, Hct 27.4 L, MCV 86.7, MCH 28.5, MCHC 32.8, RDW Std Deviation 39.0, RDW Coeff of Sharon 12.2, Plt Count 293, MPV 9.3, Immature Gran % (Auto) 0.300, Neut % (Auto) 71.7 H, Lymph % (Auto) 16.6 L, Isabella % (Auto) 9.2, Eos % (Auto) 1.7, Baso % (Auto) 0.5, Absolute Neuts (auto) 6.2, Absolute Lymphs (auto) 1.44, Nucleated RBC % 0, Sodium 132 L, Potassium 4.5, Chloride 101, Carbon Dioxide 18.2 L, Anion Gap 12, BUN 30 H, Creatinine 1.56 H, Estim Creat Clear Calc 83.74, Est GFR (MDRD) Non-Af 57 L, BUN/CreatinineRatio 19.0, Glucose 311 H, Hemoglobin A1c 6.9 H, Calcium 7.9 Radiography Diagnostic Testing: Radiology Impression Chest X-Ray 04/28/25 17:55 IMPRESSION: Lungs appear clear throughout. No pleural effusion or pneumothorax is noted. The cardiomediastinal silhouette is within the normal range. Bilateral acromioclavicular joint degenerative changes are noted. No acute osseous change is seen. Reading Location: [address] Elbow X-Ray 04/28/25 17:55 IMPRESSION: No left elbow joint effusion is seen. No significant arthritic process or joint narrowing is noted. No fracture, dislocation, or other significant osseous or joint space abnormality is seen. Reading Location: [address] Rhythm Strip Rhythm Strip: Sinus Tach Rate: 138 Ectopy: None Physical Exam Narrative GENERAL: cooperative HEENT: Atraumatic; normocephalic EYES; Anicteric, Normal Conjunctiva NECK; supple, normal thyroid, RESPIRATORY: Diminished to auscultation CARDIOVASCULAR: Regular S1 S2, GI: soft, normoactive bowel sounds, : No Renal angle tenderness; EXTREMITIES: Excoriation anterior surface of the right lower extremity with right second to wound, swelling and erythema involving the left elbow, MUSCULOSKELETAL: no muscle wasting NEURO: Awake; no lateralizing signs. SKIN: No Rash PSYCH; Flat affect Assessment & Plan Assessment/Plan (1) Sepsis: (2) Discitis: PLAN: Plan Patient is a 40-year-old gentleman admitted with intractable back pain as well as left elbow pain. He apparently had an MRI performed as outpatient which showed evidence of osteomyelitis/discitis 1. Sepsis ? Secondary to discitis/osteomyelitis involving the lumbar spine, septic arthritis involving the left elbow, second right toe infection as well as cellulitis involving the right lower extremity. Patient admitted to the intensive care unit treatment initiated per protocol with broad-spectrum antibiotic therapy after cultures have been sent. Consultation placed to ID as well as spine surgery 2. Discitis/osteomyelitis involving the lumbar spine ? MRI obtained as outpatient on 04/26/2025 did show abnormal signal within the L4-5 intervertebral disc, may indicate discitis. There is abnormal signal within the L4 and L5 vertebral bodies consistent with acute edema. There is extension into the left paravertebral soft tissues and psoas muscle, at the L4-5 level. There is also displacement of the L4 nerve root. 2. There is aleft central disc extrusion at L5-S1 with posterior displacement of the left S1 nerve root sleeve. Management initiated as discussed above 3. Suspected septic elbow/cellulitis of the left elbow ? Patient started on broad-spectrum antibiotic therapy cultures sent. Spine/orthopedic surgery already on the case 4. Diabetic foot infection involving the second right toe/cellulitis of right lower extremity ? Patient remains on antibiotic therapy with consult placed to Dr. Ann with podiatry 5. Acute kidney injury ? Patient started on IV fluid with avoidance of potential nephrotoxic medications. Daily monitoring with BMPs ordered 6. Hyperkalemia ? Patient did receive Kayexalate repeat potassium ordered 7. Anion gap metabolic acidosis ? Secondary to SHWETHA do expect improvement in treatment of the underlying etiology 8. Dyslipidemia ? Patient is on fenofibrate 9. Diabetes mellitus type II -Placed on long acting insulin, Accu-Cheks a.c. and at bedtime and covered with sliding scale insulin 10. Class I obesity with BMI of 33.5 ? Complicating care weight loss advised 11. Anemia ? Secondary to chronic disorder monitoring H&H and transfuse if patient becomes symptomatic or hemoglobin falls below 7 12. Acute cystitis ? Patient had pyuria. Patient remains on broad-spectrum antibiotic therapy willfollow-up on culture result 13. DVT prophylaxis ? On enoxaparin, dose adjusted for kidney function Time spent in the patient's overall evaluation,decision-making process, review of diagnostic data, adjustment of management, discussion with other providers, nursing nursing and ancillary staff involved in patient's care documentation, 50 Minutes Charges/Coding Visit Charges Inpatient E&M: 90969 Subs Hosp L3 04/29/25 0734 <Electronically signed by Jim Burger MD> Cosigner Signature (if applicable): CC: ~ Signed [facility] Work Phone: Progress note Author Park Zamora [facility] Note Date/Time April 30, 2025 1 2:20pm [facility] Medical Records Department [address] [place] [address] Progress Note - Hospitalist 04/30/25 1036 MR#: [id number] Acct: [id number] Name: TREVON RAMAN Rep #:[id number] 2 : 1985 40 From: Park Zamora MD PCP: Dr. Josh Meier MD Status:ADM IN Location: MS3 [id number] Reason for Visit Chief Complaint: back pain Subjective Subjective Reports back pain somewhat improved, not really having any pain in his right foot, still complaining of significant left elbow pain Objective Data Objective Data Vital Signs: Vital Signs Temp Pulse Resp BP Pulse Ox O2 Del Method 98.5 F 113 H 19 H 123/71 H 98 Room Air 04/30/25 09:13 04/30/25 09:13 04/30/25 09:13 04/30/25 09:13 04/30/25 09:13 04/30/25 09:13 Oxygen Delivery Method Room Air Weight: 115.3 kg Body Mass Index (BMI) 33.7 Intake & Output: Intake and Output for Last 24 Hours 04/28/25 04/29/25 04/30/25 23:59 23:59 23:59 Intake Total 2640.00 / 2640.00 3897.96 / 3897.96 200 / 200 Balance 2640.00 / 2640.00 3897.96 / 3897.96 200 / 200 Lab / Micro Data 04/30/25 07:15 04/30/25 07:15 Labs: Laboratory Results - last 24 hr 04/29/25 10:42: POC Glucose 225 H 04/29/25 15:49: POC Glucose 214 H 04/29/25 22:37: POC Glucose 286 H 04/30/25 07:15: WBC 9.6, RBC 3.22 L, Hgb 9.3 L, Hct 28.2 L, MCV 87.6, MCH 28.9, MCHC 33.0, RDW Std Deviation 39.7, RDW Coeff of Sharon 12.3, Plt Count 315, MPV 9.4, Immature Gran % (Auto) 0.600, Neut % (Auto) 74.2 H, Lymph % (Auto) 14.5 L, Isabella % (Auto) 9.0, Eos % (Auto) 1.4, Baso % (Auto) 0.3, Absolute Neuts (auto) 7.1, Absolute Lymphs (auto) 1.39, Nucleated RBC % 0, Sodium 131 L, Potassium 4.6, Chloride 98, Carbon Dioxide 21.2, Anion Gap 12, BUN 19, Creatinine 1.19, Estim Creat Clear Calc 109.78, Est GFR (MDRD) Non-Af 79, BUN/Creatinine Ratio 15.6, Glucose 254 H, Calcium 8.7, Phosphorus 2.4 L, Magnesium 1.5, Vancomycin Trough 18.0 H Micro: Microbiology 04/29/25 10:43 Wound - Toe Gram Stain - Final 04/29/25 10:43 Wound - Toe Wound Culture - Preliminary Staphylococcus species Beta streptococcus 04/29/25 01:30 Urine, Clean Catch Urine Culture - Preliminary Staphylococcus species 04/28/25 17:41 Blood Culture (Wb) - Anticubital Left Bacteria Detection (PCR) - Preliminary Staphylococcus aureus 04/28/25 17:41 Blood Culture (Wb) - Anticubital Left Blood Culture - Preliminary 04/28/25 18:10 Blood Culture (Wb) - Right Hand Blood Culture - Preliminary Radiography Diagnostic Testing: Radiology Impression Upper Extremity CT 04/29/25 13:18 IMPRESSION: Soft tissue swelling. No evidence of abscess. No bony destruction. Reading Location: [place] [address] Rhythm Strip Rhythm Strip: Sinus Tach Rate: 138 Ectopy: None Physical Exam Narrative General: Alert, oriented, no apparent distress HEENT: Atraumatic, normocephalic Eyes: Anicteric, normal conjunctiva, extraocular movements grossly intact Neck: Supple Respiratory: Clear to auscultation bilaterally, normal respiratory effort Cardiovascular: Regular rate and rhythm GI: Soft, nontender, nondistended Extremities: Left arm in sling, right knee a little bit tender in medial aspect but point tenderness with no effusion or erythema or warmth Musculoskeletal: Left arm in sling, hesitant to move it due to pain Neuro: No overt focal neurological deficits Skin: Chronic lower extremity changes Psych: Cooperative Assessment & Plan Assessment/Plan (1) Sepsis: PLAN: Plan 40 y/o M hx of diabetes presented to [facility] ED 04/28/25 w/ severe back pain and elbow pain. He has had back pain since February 2025 and had an outpatient MRI 04/26 which showed osteomyelitis/discitis and he was advised to come to the ED. He was also complaining of elbow pain. In the ED patient had a white count of 14, Tmax of 100.2 with a bicarb of 18.7, potassium 5.6 and a creatinine of 1.69,lactic acid 2.8. Hospitalist contacted for admission for sepsis secondary to acute discitis versus osteomyelitis of lumbar spine. # Sepsis secondary to staph aureus 2/2 acute discitis versus osteomyelitis of the lumbar spine - Outpatient MRI of lumbar spine showed abnormal signal within L4-L5 intervertebral disc and L4-L5 vertebral bodies consistent with acute edema with extension into the left paravertebral soft tissues and psoas muscle at L4-L5 as well as displacement of L4 nerve root so patient came to the ED - Patient was tachycardic, tachypneic, white count of 14 and lactic acid was 2.8 - He was admitted to the ICU on sepsis protocol and started on IV vancomycin andUnasyn - Spine surgery consulted-no present acute surgical indication - Infectious disease consulted -2 of 2 blood cultures positive thus far for gram-positive cocci in clusters, first blood culture growing Staph aureus # Left elbow cellulitis -Ortho and ID on consult -Broad-spectrum antibiotics -Left upper extremity CT with soft tissue swelling but no effusion however givenlimited range of motion and pain Ortho with plan to attempt to aspirate joint aspatient would need to OR if any evidence of infection - Discussed with orthopedics # Right second toe infection -Podiatry consulted -Debrided at bedside -Patient on antibiotics, ID also on consult #Type 2 diabetes mellitus -Glucose checks and sliding scale insulin -Continue long-acting insulin -Glucose elevation likely exacerbated by underlying infection # SHWETHA-resolved - On presentation creatinine 1.69 up from a baseline of around 1, has subsequently downtrended to 1.19 #DVT ppx: SCDs Park Zamora MD Charges/Coding Visit Charges Inpatient E&M: 30115 Subs Hosp L2 04/30/25 1220 <Electronically signed by Park Zamora MD> Cosigner Signature (if applicable): CC: ~ Signed [facility] Work Phone: Progress note Author Gabriele Tafoya [facility] Note Date/Time April 30, 2025 1 2:28pm [facility] Medical Records Department [address] [place] [address] Progress Note - Orthopedic 04/30/25 1223 MR#: [id number] Acct: [id number] Name: TREVON RAMAN Rep #:[id number] : 1985 40 From: Gabriele Tafoya MD PCP: Dr. Josh Meier MD Status:ADM IN Location: [place] [id number] Subjective Subjective Saw patient in [facility] again today. Patient was seen by podiatry last night and right big toe wound was debrided. Blood cultures and urine cultures as well as wound culture from the foot show Staph aureus, sensitivity pending. Patient reports that the left elbow pain has continued to bother him and is feeling even stiffer today. Pain is again localized over the olecranon and moremedially than laterally at the elbow. Forearm rotation is stiff but painless. Objective Data Objective Data Vital Signs: Vital Signs Temp Pulse Resp BP Pulse Ox O2 Del Method 98.5 F 113 H 19 H 123/71 H 98 Room Air 04/30/25 09:13 04/30/25 09:13 04/30/25 09:13 04/30/25 09:13 04/30/25 09:13 04/30/25 09:13 Oxygen Delivery Method Room Air Weight: 254 lb 3.088 oz Body Mass Index (BMI) 33.7 Intake & Output: Intake and Output for Last 24 Hours 04/28/25 04/29/25 04/30/25 23:59 23:59 23:59 Intake Total 2640.00 / 2640.00 3897.96 / 3897.96 444.75 / 444.75 Balance 2640.00 / 2640.00 3897.96 / 3897.96 444.75 / 444.75 Lab / Micro Data 04/30/25 07:15 04/30/25 07:15 Labs: Laboratory Results - last 24 hr 04/29/25 15:49: POC Glucose 214 H 04/29/25 22:37: POC Glucose 286 H 04/30/25 06:56: POC Glucose 235 H 04/30/25 07:15: WBC 9.6, RBC 3.22 L, Hgb 9.3 L, Hct 28.2 L, MCV 87.6, MCH 28.9, MCHC 33.0, RDW Std Deviation 39.7, RDW Coeff of Sharon 12.3, Plt Count 315, MPV 9.4, Immature Gran % (Auto) 0.600, Neut % (Auto) 74.2 H, Lymph % (Auto) 14.5 L, Isabella % (Auto) 9.0, Eos % (Auto) 1.4, Baso % (Auto) 0.3, Absolute Neuts (auto) 7.1, Absolute Lymphs (auto) 1.39, Nucleated RBC % 0, Sodium 131 L, Potassium 4.6, Chloride 98, Carbon Dioxide 21.2, Anion Gap 12, BUN 19, Creatinine 1.19, Estim Creat Clear Calc 109.78, Est GFR (MDRD) Non-Af 79, BUN/Creatinine Ratio 15.6, Glucose 254 H, Calcium 8.7, Phosphorus 2.4 L, Magnesium 1.5, Vancomycin Trough 18.0 H Micro: Microbiology 04/28/25 18:10 Blood Culture (Wb) - Right Hand Blood Culture - Preliminary Staphylococcus aureus 04/28/25 17:41 Blood Culture (Wb) - Anticubital Left Bacteria Detection (PCR) - Final Staphylococcus aureus 04/28/25 17:41 Blood Culture (Wb) - Anticubital Left Blood Culture - Preliminary Staphylococcus aureus 04/29/25 10:43 Wound - Toe Gram Stain - Final 04/29/25 10:43 Wound - Toe Wound Culture - Preliminary Staphylococcus species Beta streptococcus 04/29/25 01:30 Urine, Clean Catch Urine Culture - Preliminary Staphylococcus species Radiography Diagnostic Testing: Radiology Impression Upper Extremity CT 04/29/25 13:18 IMPRESSION: Soft tissue swelling. No evidence of abscess. No bony destruction. Reading Location: [facility] Rhythm Strip Rhythm Strip: Sinus Tach Rate: 138 Ectopy: None Physical Exam Narrative Patient sitting in bed with left upper extremity in a sling and elevation. Examination of the back shows midline paraspinal tenderness to lower lumbar region. Lower extremity shows dressings over the right rose as well as the right second toe. These were not assessed. Neurologic evaluation of lower extremity shows 5 x 5 power. Examination left elbow shows swelling and fullnesswith redness over the posterior aspect of the left elbow. Pronation supination is pain-free. Elbow flexion extension is limited between 30 and 90 degrees withpain at extremes, worsen from yesterday. Distal neurovascular exam is intact. Assessment & Plan Assessment/Plan (1) Lumbar discitis: (2) Cellulitis of left elbow: PLAN: Plan Again reviewed recently done MRI of the lumbar spine which shows L4-5 disc height loss with discitis and possible purulence going into the left psoas muscle. No significant stenosis or nerve root compression noticed. No obvious epidural abscess. No spine bony destruction noticed on this MRI. Left elbow x-rays did not show any acute osseous abnormality. I requested an urgent CT of the left elbow which shows soft tissue swelling without any collections. Discussed imaging findings in detail. At this time patient is neuro intact and will benefit from medical treatment of discitis with long-term antibiotics. Culture shows staph in the blood cultures and urine cultures. Antibiotics per ID. At this time no surgical intervention required for the lumbar discitis. For his left elbow pain and swelling, CT does not seem to indicate any significant soft tissue collections or effusion at the elbow. Patient does havepain with elbow range of motion at extremes, but has pain-free forearm rotation. Due to the reduced range of motion compared to yesterday, I discussed with the patient about aspiration of the left elbow to see for cell count and Gram stain and cultures. Patient was agreeable. Consent was taken. Please see procedure note. We will review Gram stain, culture, synovial fluid analysis once completelater this afternoon. If it appears to indicate septic arthritis, patient will need left elbow I&D. Answered all questions. Charges/Coding Visit Charges Inpatient E&M: 97421 Subs Hosp L3 04/30/25 1228 <Electronically signed by Gabriele Tafoya MD> Cosigner Signature (if applicable): CC: ~ Signed [facility] Work Phone: Progress note Author Gabriele Tafoya [facility] Note Date/Time May 01, 2025 1 :18pm [facility] Medical Records Department [address] [place] [address] Progress Note - Orthopedic 05/01/25 1312 MR#: [id number] Acct: [id number] Name: TREVON RAMAN Rep #:[id number] 5 : 1985 40 From: Gabriele Tafoya MD PCP: Dr. Josh Meier MD Status:ADM IN Location: MS3 IU876-2 Subjective Subjective Reviewed synovial fluid results. No growth yet on culture. WBC count on synovialfluid 0.920 x 10^3 cells/uL . Not likley to be septic elbow. Will observe for now. Objective Data Objective Data Vital Signs: Vital Signs Temp Pulse Resp BP Pulse Ox O2 Del Method 97.8 F 92 17 132/84 H 98 Room Air 05/01/25 09:41 05/01/25 09:41 05/01/25 09:41 05/01/25 09:41 05/01/25 09:41 05/01/25 09:41 Oxygen Delivery Method Room Air Weight: 254 lb 3.088 oz Body Mass Index (BMI) 33.7 Intake & Output: Intake and Output for Last 24 Hours 04/29/25 04/30/25 05/01/25 23:59 23:59 23:59 Intake Total 3897.96 / 3897.96 1714.75 / 1714.75 1227.25 / 1227.25 Balance 3897.96 / 3897.96 1714.75 / 1714.75 1227.25 / 1227.25 Lab / Micro Data 05/01/25 04:13 05/01/25 04:13 Labs: Laboratory Results - last 24 hr 04/30/25 12:00: Synovial Source LEFT ELBOW JOINT, Synovial Color Straw, SynovialAppearance Sl Cl, Synovial WBC 0.0920 H, Synovial RBC 0.004 H, Synovial Tot CellCt 0.0980 H, Synov Polynuclear WBCs 0.006, Synov Mononuclear WBCs 0.086, Synovial Neutrophils 2, Synovial Lymphocytes 4, Synovial Monocytes 94, Synovial Polynuclear % 6.6, Synovial Mononuclear % 93.4, Synovial Path Comment May follow 04/30/25 17:33: POC Glucose 288 H 04/30/25 21:26: POC Glucose 337 H 05/01/25 04:13: WBC 6.3, RBC 3.04 L, Hgb 8.8 L, Hct 26.0 L, MCV 85.5, MCH 28.9, MCHC 33.8, RDW Std Deviation 37.7, RDW Coeff of Sharon 12.1, Plt Count 307, MPV 9.4, Immature Gran % (Auto) 0.500, Neut % (Auto) 58.9, Lymph % (Auto) 26.4, Isabella% (Auto) 10.0, Eos % (Auto) 3.9, Baso % (Auto) 0.3, Absolute Neuts (auto) 3.7, Absolute Lymphs (auto) 1.67, Nucleated RBC % 0, Sodium 133, Potassium 3.9, Chloride 101, Carbon Dioxide 22.9, Anion Gap 9, BUN 19, Creatinine 0.98, Estim Creat Clear Calc 133.30, Est GFR (MDRD) Non-Af 100, BUN/Creatinine Ratio 19.5, Glucose 238 H, Calcium 8.8 05/01/25 07:05: POC Glucose 199 H 05/01/25 11:50: POC Glucose 222 H Micro: Microbiology 04/28/25 18:10 Blood Culture (Wb) - Right Hand Blood Culture - Preliminary Staphylococcus aureus 04/29/25 10:43 Wound - Toe Gram Stain - Final 04/29/25 10:43 Wound - Toe Wound Culture - Preliminary Staphylococcus aureus Streptococcus group B 04/30/25 12:00 Fluid - Synovial (joint) Gram Stain - Final 04/30/25 12:00 Fluid - Synovial (joint) Body Fluid Culture - Preliminary No growth-Final to follow 04/28/25 17:41 Blood Culture (Wb) - Anticubital Left Bacteria Detection (PCR) - Final Staphylococcus aureus 04/28/25 17:41 Blood Culture (Wb) - Anticubital Left Blood Culture - Final Staphylococcus aureus 04/29/25 01:30 Urine, Clean Catch Urine Culture - Final Staphylococcus aureus Rhythm Strip Rhythm Strip: Sinus Tach Rate: 138 Ectopy: None Charges/Coding Visit Charges Inpatient E&M: 69876 Subs Hosp L1 05/01/25 1318 <Electronically signed by Gabriele Taofya MD> Cosigner Signature (if applicable): CC: ~ Signed [facility] Work Phone: Progress note Author Park Zamora [facility] Note Date/Time May 01, 2025 4 :25pm [facility] Medical Records Department [address] [place] [address] [place] [address] Progress Note - Hospitalist 05/01/25 0334 MR#: [id number] Acct: [id number] Name: TREVON RAMAN Rep #:[id number] 1 : 1985 40 From: Park Zamora MD PCP: Dr. Josh Meier MD Status:ADM IN Location: MS3 [id number] Reason for Visit Chief Complaint: back pain Subjective Subjective Continues to have some back pain, left elbow pain significantly improved from yesterday with better range of motion Objective Data Objective Data Vital Signs: Vital Signs Temp Pulse Resp BP Pulse Ox O2 Del Method 97.8 F 92 17 132/84 H 98 Room Air 05/01/25 09:41 05/01/25 09:41 05/01/25 09:41 05/01/25 09:41 05/01/25 09:41 05/01/25 09:41 Oxygen Delivery Method Room Air Weight: 115.3 kg Body Mass Index (BMI) 33.7 Intake & Output: Intake and Output for Last 24 Hours 04/29/25 04/30/25 05/01/25 23:59 23:59 23:59 Intake Total 3897.96 / 3897.96 1714.75 / 1714.75 1227.25 / 1227.25 Balance 3897.96 / 3897.96 1714.75 / 1714.75 1227.25 / 1227.25 Lab / Micro Data 05/01/25 04:13 05/01/25 04:13 Labs: Laboratory Results - last 24 hr 04/30/25 17:33: POC Glucose 288 H 04/30/25 21:26: POC Glucose 337 H 05/01/25 04:13: WBC 6.3, RBC 3.04 L, Hgb 8.8 L, Hct 26.0 L, MCV 85.5, MCH 28.9, MCHC 33.8, RDW Std Deviation 37.7, RDW Coeff of Sharon 12.1, Plt Count 307, MPV 9.4, Immature Gran % (Auto) 0.500, Neut % (Auto) 58.9, Lymph % (Auto) 26.4, Isabella% (Auto) 10.0, Eos % (Auto) 3.9, Baso % (Auto) 0.3, Absolute Neuts (auto) 3.7, Absolute Lymphs (auto) 1.67, Nucleated RBC % 0, Sodium 133, Potassium 3.9, Chloride 101, Carbon Dioxide 22.9, Anion Gap 9, BUN 19, Creatinine 0.98, Estim Creat Clear Calc 133.30, Est GFR (MDRD) Non-Af 100, BUN/Creatinine Ratio 19.5, Glucose 238 H, Calcium 8.8 05/01/25 07:05: POC Glucose 199 H 05/01/25 11:50: POC Glucose 222 H Micro: Microbiology 04/28/25 18:10 Blood Culture (Wb) - Right Hand Blood Culture - Preliminary Staphylococcus aureus 04/29/25 10:43 Wound - Toe Gram Stain - Final 04/29/25 10:43 Wound - Toe Wound Culture - Preliminary Staphylococcus aureus Streptococcus group B 04/30/25 12:00 Fluid - Synovial (joint) Gram Stain - Final 04/30/25 12:00 Fluid - Synovial (joint) Body Fluid Culture - Preliminary No growth-Final to follow 04/28/25 17:41 Blood Culture (Wb) - Anticubital Left Bacteria Detection (PCR) - Final Staphylococcus aureus 04/28/25 17:41 Blood Culture (Wb) - Anticubital Left Blood Culture - Final Staphylococcus aureus 04/29/25 01:30 Urine, Clean Catch Urine Culture - Final Staphylococcus aureus Rhythm Strip Rhythm Strip: Sinus Tach Rate: 138 Ectopy: None Physical Exam Narrative General: Alert, oriented, no apparent distress HEENT: Atraumatic, normocephalic Eyes: Anicteric, normal conjunctiva, extraocular movements grossly intact Neck: Supple Respiratory: Clear to auscultation bilaterally, normal respiratory effort Cardiovascular: Regular rate and rhythm GI: Soft, nontender, nondistended Extremities: Left arm in sling, he removed from sling and was able to move elbowfairly freely, bandage over area where fluid was aspirated Musculoskeletal: Moving all extremities Neuro: No overt focal neurological deficits Skin: Chronic lower extremity changes Psych: Cooperative Assessment & Plan Assessment/Plan (1) Sepsis: PLAN: Plan 40 y/o M hx of diabetes presented to [facility] ED 04/28/25 w/ severe back pain and elbow pain. He has had back pain since February 2025 and had an outpatient MRI 04/26 which showed osteomyelitis/discitis and he was advised to come to the ED. He was also complaining of elbow pain. In the ED patient had a white count of 14, Tmax of 100.2 with a bicarb of 18.7, potassium 5.6 and a creatinine of 1.69,lactic acid 2.8. Hospitalist contacted for admission for sepsis secondary to acute discitis versus osteomyelitis of lumbar spine. # Sepsis secondary to staph aureus 2/2 acute discitis versus osteomyelitis of the lumbar spine - Outpatient MRI of lumbar spine showed abnormal signal within L4-L5 intervertebral disc and L4-L5 vertebral bodies consistent with acute edema with extension into the left paravertebral soft tissues and psoas muscle at L4-L5 as well as displacement of L4 nerve root so patient came to the ED - Patient was tachycardic, tachypneic, white count of 14 and lactic acid was 2.8 - He was admitted to the ICU on sepsis protocol and started on IV vancomycin andUnasyn - Spine surgery consulted-no present acute surgical indication - Infectious disease consulted -2 of 2 blood cultures positive thus far for gram-positive cocci in clusters, first blood culture growing Staph aureus -05/01: Given both blood cultures growing Staph aureus echo ordered, repeat cultures ordered to see if this is clearing, ID on consult, orthospine on consult # Left elbow cellulitis -Ortho and ID on consult -Broad-spectrum antibiotics -Left upper extremity CT with soft tissue swelling but no effusion however givenlimited range of motion and pain Ortho with plan to attempt to aspirate joint aspatient would need to OR if any evidence of infection - Discussed with orthopedics -05/01: Preliminary studies do not appear to be septic arthritis, Ortho following, fluid culture thus far no growth # Right second toe infection -Podiatry consulted -Debrided at bedside -Patient on antibiotics, ID also on consult -05/01: Toe growing Staph aureus and strep B, ID following, patient remains on vancomycin and Unasyn, further culture and sensitivity data pending #Type 2 diabetes mellitus -Glucose checks and sliding scale insulin -Continue long-acting insulin -Glucose elevation likely exacerbated by underlying infection -05/01: Adjusting sliding scale, continue long-acting Chronic medical problems and/or problems not being actively addressed during today's encounter: # SHWETHA-resolved - On presentation creatinine 1.69 up from a baseline of around 1, has subsequently downtrended to 1.19 #DVT ppx: SCDs Park Zamora MD Charges/Coding Visit Charges Inpatient E&M: 17031 Subs Hosp L2 10/1624 <Electronically signed by Park Zamora MD> Cosigner Signature (if applicable): CC: ~ Signed [facility] Work Phone: Progress note Author Khadar Casey [facility] Note Date/Time May 02, 2025 1 2:29pm [facility] Medical Records Department [address] [place] [address] Progress Note - Hospitalist 05/02/25 0828 MR#: [id number] Acct: [id number] Name: TREVON RAMAN Rep #:[id number] : 1985 40 From: Khadar Casey DO PCP: Dr. Josh Meier MD Status:ADM IN Location: [facility] CB048-5 Reason for Visit Chief Complaint: back pain Subjective Subjective complaining of back pain, worse with movement. Objective Data Objective Data Vital Signs: Vital Signs Temp Pulse Resp BP Pulse Ox O2 Del Method 36.7 C 95 15 150/80 H 98 Room Air 05/02/25 03:00 05/02/25 03:00 05/02/25 03:00 05/02/25 03:00 05/02/25 03:00 05/02/25 03:00 Oxygen Delivery Method Room Air Weight: 114.8 kg Body Mass Index (BMI) 33.5 Intake & Output: Intake and Output for Last 24 Hours 04/30/25 05/01/25 05/02/25 23:59 23:59 23:59 Intake Total 1714.75 / 1714.75 1327.25 / 1327.25 947.75 / 947.75 Balance 1714.75 / 1714.75 1327.25 / 1327.25 947.75 / 947.75 Lab / Micro Data 05/02/25 03:08 05/02/25 03:08 Labs: Laboratory Results - last 24 hr 05/01/25 07:05: POC Glucose 199 H 05/01/25 11:50: POC Glucose 222 H 05/01/25 16:55: POC Glucose 278 H 05/01/25 18:50: Vancomycin Trough 21.3 H 05/01/25 21:18: POC Glucose 288 H 05/02/25 03:08: WBC 8.1, RBC 3.34 L, Hgb 9.4 L, Hct 28.3 L, MCV 84.7, MCH 28.1, MCHC 33.2, RDW Std Deviation 37.1, RDW Coeff of Sharon 12.1, Plt Count 453 H, MPV 9.1, Immature Gran % (Auto) 0.600, Neut % (Auto) 65.5, Lymph % (Auto) 21.3, Isabella% (Auto) 8.1, Eos % (Auto) 4.0, Baso % (Auto) 0.5, Absolute Neuts (auto) 5.3, Absolute Lymphs (auto) 1.72, Nucleated RBC % 0, Sodium 135, Potassium 4.3, Chloride 100, Carbon Dioxide 24.4, Anion Gap 10, BUN 20 H, Creatinine 0.99, Estim Creat Clear Calc 131.96, Est GFR (MDRD) Non-Af 99, BUN/Creatinine Ratio 20.4 H, Glucose 156 H, Calcium 9.0, Random Vancomycin 14.8 05/02/25 06:33: POC Glucose 128 H Micro: Microbiology 04/29/25 10:43 Wound - Toe Gram Stain - Final 04/29/25 10:43 Wound - Toe Wound Culture - Final Staphylococcus aureus Streptococcus agalactiae (B) 04/28/25 18:10 Blood Culture (Wb) - Right Hand Blood Culture - Preliminary Staphylococcus aureus 04/30/25 12:00 Fluid - Synovial (joint) Gram Stain - Final 04/30/25 12:00 Fluid - Synovial (joint) Body Fluid Culture - Preliminary No growth-Final to follow 04/28/25 17:41 Blood Culture (Wb) - Anticubital Left Bacteria Detection (PCR) - Final Staphylococcus aureus 04/28/25 17:41 Blood Culture (Wb) - Anticubital Left Blood Culture - Final Staphylococcus aureus 04/29/25 01:30 Urine, Clean Catch Urine Culture - Final Staphylococcus aureus Rhythm Strip Rhythm Strip: Sinus Tach Rate: 138 Ectopy: None Physical Exam Const alert and no apparent distress HEENT head/scalp atraumatic and moist oral mucous membranes Resp normal respiratory effort, no retractions, no use of accessory muscles and clearto auscultation bilaterally Cardio regular rate, regular rhythm, S1 normal heart sound and S2 normal heart sound GI normal to inspection, nondistended, normoactive bowel sounds, soft to palpation,non-tender and non-distended Extremity normal to inspection and full ROM Extremity Narrative: good ROM of left elbow, but cannot fully extend. slight TTP. reproducible right lower paraspinal muscle tenderness. Skin Skin Narrative: superficial scab over right anterior rose. superficial ulceration right second toe. Neuro Sensorium / Orientation: awake and alert Assessment & Plan Assessment/Plan (1) Sepsis: PLAN: Plan Sepsis secondary * POA. Refer to H+P for criteria. * 2/2 diskitis, left elbow cellulitis and right 2nd toe infection. Bacteremia * likely 2/2 wound which likely led to diskitis * S. aureus * follow up cultures from the pending. Diskitis * to staph aureus 2/2 acute discitis versus osteomyelitis of the lumbar spine * Outpatient MRI of lumbar spine showed abnormal signal within L4-L5 intervertebral disc and L4-L5 vertebral bodies consistent with acute edema with extension into the left paravertebral soft tissues and psoas muscle at L4-L5 as well as displacement of L4 nerve root so patient came to the ED * Spine surgery consulted-no present acute surgical indication * Infectious disease consulted * 2 of 2 blood cultures positive thus far for gram-positive cocci in clusters, first blood culture growing Staph aureus * 05/01: Given both blood cultures growing Staph aureus echo ordered, repeat cultures ordered to see if this is clearing, ID on consult, orthospine on consult Left elbow cellulitis * septic arthritis ruled out. * Ortho and ID on consult * Broad-spectrum antibiotics * Left upper extremity CT with soft tissue swelling but no effusion however given limited range of motion and pain Ortho with plan to attempt to aspirate joint as patient would need to OR if any evidence of infection Right second toe infection * Podiatry consulted * Debrided at bedside * Patient on antibiotics, ID also on consult * 05/01: Toe growing Staph aureus and strep B, ID following, patient remains on vancomycin and Unasyn, further culture and sensitivity data pending Type 2 diabetes mellitus * Glucose checks and sliding scale insulin * Continue long-acting insulin * Glucose elevation likely exacerbated by underlying infection * 05/01: Adjusting sliding scale, continue long-acting Back pain * paraspinal muscle tenderness. SHWETHA-resolved * On presentation creatinine 1.69 up from a baseline of around 1, has subsequently downtrended to 1.19 DVT ppx: SCDs Charges/Coding Visit Charges Inpatient E&M: 06782 Subs Hosp L2 05/02/25 1229 <Electronically signed by Khadar Casey DO> Cosigner Signature (if applicable): CC: ~ Signed [facility] Work Phone: Progress note Author Annita Baez [facility] Note Date/Time May 02, 2025 3 :49pm [facility] Medical Records Department [address] [place] [address] Progress Note - Orthopedic 05/02/25 1252 MR#: [id number] Acct: [id number] Name: TREVON RAMAN Rep #:[id number] 2 : 1985 40 From: Annita LIZAMA PCP: Dr. Josh Meier MD Status:ADM IN [facility] Subjective Subjective Reviewed synovial fluid results. No growth yet on culture. WBC count on synovialfluid 0.920 x 10^3 cells/uL . Septic elbow ruled out, cellulitis at elbow. Elbow ROM improving from prior. Objective Data Objective Data Vital Signs: Vital Signs Temp Pulse Resp BP Pulse Ox O2 Del Method 97.9 F 94 18 129/77 H 98 Room Air 05/02/25 08:57 05/02/25 08:57 05/02/25 08:57 05/02/25 08:57 05/02/25 08:57 05/02/25 08:58 Oxygen Delivery Method Room Air Weight: 253 lb 1.451 oz Body Mass Index (BMI) 33.5 Intake & Output: Intake and Output for Last 24 Hours 04/30/25 05/01/25 05/02/25 23:59 23:59 23:59 Intake Total 1714.75 / 1714.75 1327.25 / 1327.25 1647.75 / 1647.75 Balance 1714.75 / 1714.75 1327.25 / 1327.25 1647.75 / 1647.75 Lab / Micro Data 05/02/25 03:08 05/02/25 03:08 Labs: Laboratory Results - last 24 hr 04/30/25 12:00: Synovial Path Comment Reviewed 05/01/25 16:55: POC Glucose 278 H 05/01/25 18:50: Vancomycin Trough 21.3 H 05/01/25 21:18: POC Glucose 288 H 05/02/25 03:08: WBC 8.1, RBC 3.34 L, Hgb 9.4 L, Hct 28.3 L, MCV 84.7, MCH 28.1, MCHC 33.2, RDW Std Deviation 37.1, RDW Coeff of Sharon 12.1, Plt Count 453 H, MPV 9.1, Immature Gran % (Auto) 0.600, Neut % (Auto) 65.5, Lymph % (Auto) 21.3, Isabella% (Auto) 8.1, Eos % (Auto) 4.0, Baso % (Auto) 0.5, Absolute Neuts (auto) 5.3, Absolute Lymphs (auto) 1.72, Nucleated RBC % 0, Sodium 135, Potassium 4.3, Chloride 100, Carbon Dioxide 24.4, Anion Gap 10, BUN 20 H, Creatinine 0.99, Estim Creat Clear Calc 131.96, Est GFR (MDRD) Non-Af 99, BUN/Creatinine Ratio 20.4 H, Glucose 156 H, Calcium 9.0, Random Vancomycin 14.8 05/02/25 06:33: POC Glucose 128 H 05/02/25 10:51: POC Glucose 247 H Micro: Microbiology 04/28/25 18:10 Blood Culture (Wb) - Right Hand Blood Culture - Final Staphylococcus aureus 04/29/25 10:43 Wound - Toe Gram Stain - Final 04/29/25 10:43 Wound - Toe Wound Culture - Final Staphylococcus aureus Streptococcus agalactiae (B) 04/30/25 12:00 Fluid - Synovial (joint) Gram Stain - Final 04/30/25 12:00 Fluid - Synovial (joint) Body Fluid Culture - Preliminary No growth-Final to follow 04/28/25 17:41 Blood Culture (Wb) - Anticubital Left Bacteria Detection (PCR) - Final Staphylococcus aureus 04/28/25 17:41 Blood Culture (Wb) - Anticubital Left Blood Culture - Final Staphylococcus aureus 04/29/25 01:30 Urine, Clean Catch Urine Culture - Final Staphylococcus aureus Rhythm Strip Rhythm Strip: Sinus Tach Rate: 138 Ectopy: None Physical Exam Narrative Patient sitting in bed with left upper extremity in a sling and elevation. Examination of the back shows midline paraspinal tenderness to lower lumbar region. Lower extremity shows dressings over the right rose as well as the right second toe. These were not assessed. Neurologic evaluation of lower extremity shows 5 x 5 power. Examination left elbow shows swelling. ROM of elbow near normal. Distal neurovascular exam is intact. Const alert, oriented x3 and no apparent distress Assessment & Plan Assessment/Plan (1) Lumbar discitis: (2) Cellulitis of left elbow: PLAN: Plan Discitis - staph aureus 2/2 acute discitis versus osteomyelitis of the lumbar spine. Outpatient MRI of lumbar spine showed abnormal signal within L4-L5 intervertebral disc and L4-L5 vertebral bodies consistent with acute edema, consistent with discitis. No surgical intervention recommended at this time. Infectious disease on board. Left elbow cellulitis- septic arthritis ruled out. Continue IV antibiotics. Range of motion improving. The patient also continues to have lumbar back pain. Patient says that he really is not having any other pain at the elbow or toe his main pain is at the lower back. Most likely related to the discitis. Continue IV antibiotics, ID consult. 05/02/25 1256 <Electronically signed by Annita LIZAMA> Cosigner Signature (if applicable): CC: ~ Signed ADDENDUM by Dr. Gabriele Tafoya MD on 05/02/25 at 1547 Visit Charges Inpatient E&M: 29047 Subs Hosp L2 05/02/25 1547<Electronically signed by Gabriele Tafoya MD> Cosigner Signature (if applicable): cc: ~* Signed ADDENDUM by Dr. Gabriele Tafoya MD on 05/02/25 at 1549 Addendum Saw patient today in 322. Patient doing well. Left elbow pain has significantly improved. Range of motion almost back to normal with slight stiffness at extremes. Encouraged active range of motion exercises. Continue antibiotics per ID. Orthopedics will sign off. Please contact for questions orconcerns. Follow-up in orthopedic clinic on a as needed basis. Visit Charges Inpatient E&M: 41839 Subs Hosp L2 05/02/25 1549<Electronically signed by Gabriele Tafoya MD> Cosigner Signature (if applicable): cc: ~* Signed [facility] Work Phone: Progress note Author Deangelo Arroyo [facility] Note Date/Time May 02, 2025 4 :08pm [facility] Medical Records Department [address] [place] [address] Progress Note - Infect Disease 05/02/25 1606 MR#: [id number] Acct: [id number] Name: TREVON RAMAN Rep #:[id number] 2 : 1985 40 From: Deangelo maradiaga MD PCP: Dr. Josh Meier MD Status:ADM IN Location: [place] [address] Physical Exam Narrative Still back pain, no fever, elbow much improved, no fever Const alert and no apparent distress General Appearance: cooperative Resp normal air movement and clear to auscultation bilaterally Cardio regular rate and regular rhythm GI soft to palpation, non-tender and non-distended Extremity General Extremity: edema Skin no rashes or lesions noted ID ID: Route of nutrition/ use of supplements: [] Nutritional Intake: [] IV Site: [] [place] Catheter: [] Assessment & Plan Assessment/Plan (1) Discitis: (2) Acute kidney injury: (3) Sepsis: PLAN: MSSA bacteremia complicated by lumbar discitis, R toe infection, L elbow infection. Will stop vanc, continue unasyn. Has Cefzil allergy. Will check TTE and repeat bcx. will follow, thank you (4) Type 1 diabetes mellitus with diabetic polyneuropathy: (5) MSSA bacteremia: 05/02/25 1608 <Electronically signed by Deangelo Arroyo MD> Cosigner Signature (if applicable): CC: ~ Signed [facility] Work Phone: Progress note Author Khadar Casey [facility] Note Date/Time May 03, 2025 1 :16pm [facility] Medical Records Department [address] [place] [address] Progress Note - Hospitalist 05/03/25 0820 MR#: [id number] Acct: [id number] Name: TREVON RAMAN Rep #:[id number] 6 : 1985 40 From: Khadar Casey DO PCP: Dr. Josh Meier MD Status:ADM IN Location: [place] [address] Reason for Visit Chief Complaint: back pain Subjective Subjective Concerned about his blood sugars. States that he at home takes 1 unit of insulin per 8 carbs. Objective Data Objective Data Vital Signs: Vital Signs Temp Pulse Resp BP Pulse Ox O2 Del Method 36.7 C 80 16 120/71 94 Room Air 05/03/25 08:14 05/03/25 08:14 05/03/25 08:14 05/03/25 08:14 05/03/25 08:14 05/03/25 08:15 Oxygen Delivery Method Room Air Weight: 114.6 kg Body Mass Index (BMI) 33.5 Intake & Output: Intake and Output for Last 24 Hours 05/01/25 05/02/25 05/03/25 23:59 23:59 23:59 Intake Total 1327.25 / 1327.25 3047.75 / 3047.75 600 / 600 Balance 1327.25 / 1327.25 3047.75 / 3047.75 600 / 600 Lab / Micro Data 05/03/25 06:24 05/03/25 06:24 Labs: Laboratory Results - last 24 hr 04/30/25 12:00: Synovial Path Comment Reviewed 05/02/25 10:51: POC Glucose 247 H 05/02/25 16:08: POC Glucose 315 H 05/02/25 19:40: POC Glucose 385 H 05/03/25 05:06: POC Glucose 184 H 05/03/25 06:24: WBC 8.3, RBC 3.06 L, Hgb 8.7 L, Hct 26.6 L, MCV 86.9, MCH 28.4, MCHC 32.7, RDW Std Deviation 39.5, RDW Coeff of Sharon 12.3, Plt Count 486 H, MPV 9.2, Immature Gran % (Auto) 0.800, Neut % (Auto) 68.1, Lymph % (Auto) 17.5 L, Isabella % (Auto) 9.1, Eos % (Auto) 3.9, Baso % (Auto) 0.6, Absolute Neuts (auto) 5.6, Absolute Lymphs (auto) 1.45, Nucleated RBC % 0, Sodium 135, Potassium 4.4, Chloride 101, Carbon Dioxide 25.1, Anion Gap 9, BUN 24 H, Creatinine 1.02, EstimCreat Clear Calc 127.70, Est GFR (MDRD) Non-Af 95, BUN/Creatinine Ratio 23.0 H, Glucose 173 H, Calcium 9.1 Micro: Microbiology 04/30/25 12:00 Fluid - Synovial (joint) Gram Stain - Final 04/30/25 12:00 Fluid - Synovial (joint) Body Fluid Culture - Preliminary No growth-Final to follow 04/30/25 12:00 Fluid - Synovial (joint) Anaerobic Culture - Preliminary No growth in 48 hours. 04/28/25 18:10 Blood Culture (Wb) - Right Hand Blood Culture - Final Staphylococcus aureus 04/29/25 10:43 Wound - Toe Gram Stain - Final 04/29/25 10:43 Wound - Toe Wound Culture - Final Staphylococcus aureus Streptococcus agalactiae (B) 04/28/25 17:41 Blood Culture (Wb) - Anticubital Left Bacteria Detection (PCR) - Final Staphylococcus aureus 04/28/25 17:41 Blood Culture (Wb) - Anticubital Left Blood Culture - Final Staphylococcus aureus 04/29/25 01:30 Urine, Clean Catch Urine Culture - Final Staphylococcus aureus Radiography Diagnostic Testing: Radiology Impression Echocardiogram 05/01/25 15:18 Interpretation Summary Normal LV size. Mild concentric left ventricular hypertrophy. Left ventricular systolic function is normal. The left ventricular ejection fraction is 65 %. Ordering Physician: Park Zamora Referring Physician: JOSH MEIER Performed By: Maddi Almodovar RCS Rhythm Strip Rhythm Strip: Sinus Tach Rate: 138 Ectopy: None Physical Exam Const alert and no apparent distress HEENT head/scalp atraumatic Head and Scalp: normocephalic Resp normal respiratory effort and no retractions GI non-distended Neuro Sensorium / Orientation: awake and alert Speech: speech normal Assessment & Plan Assessment/Plan (1) Sepsis: PLAN: Plan Sepsis secondary * POA. Refer to H+P for criteria. * 2/2 diskitis, left elbow cellulitis and right 2nd toe infection. Bacteremia * likely 2/2 wound which likely led to diskitis * S. aureus * follow up cultures from the so far negative. Repeat blood cultures performed today pending. * Echo shows an EF 65%. * on amp/sb Diskitis * to staph aureus 2/2 acute discitis versus osteomyelitis of the lumbar spine * Outpatient MRI of lumbar spine showed abnormal signal within L4-L5 intervertebral disc and L4-L5 vertebral bodies consistent with acute edema with extension into the left paravertebral soft tissues and psoas muscle at L4-L5 as well as displacement of L4 nerve root so patient came to the ED * Spine surgery consulted-no present acute surgical indication * Infectious disease consulted * 2 of 2 blood cultures positive thus far for gram-positive cocci in clusters, first blood culture growing Staph aureus * 05/01: Given both blood cultures growing Staph aureus echo ordered, repeat cultures ordered to see if this is clearing, ID on consult, orthospine on consult Left elbow cellulitis * septic arthritis ruled out. * Ortho and ID on consult * Broad-spectrum antibiotics * Left upper extremity CT with soft tissue swelling but no effusion however given limited range of motion and pain Ortho with plan to attempt to aspirate joint as patient would need to OR if any evidence of infection Right second toe infection * Podiatry consulted * Debrided at bedside * Patient on antibiotics, ID also on consult * 05/01: Toe growing Staph aureus and strep B, ID following, patient remains on vancomycin and Unasyn, further culture and sensitivity data pending Type 2 diabetes mellitus * Glucose checks and sliding scale insulin * Continue long-acting insulin * Glucose elevation likely exacerbated by underlying infection * 05/01: Adjusting sliding scale, continue long-acting Back pain * paraspinal muscle tenderness. SHWETHA-resolved * On presentation creatinine 1.69 up from a baseline of around 1, has subsequently downtrended to 1.19 DVT ppx: SCDs Charges/Coding Visit Charges Inpatient E&M: 09665 Subs Hosp L2 05/03/25 1316 <Electronically signed by Khadar Casey DO> Cosigner Signature (if applicable): CC: ~ Signed [facility] Work Phone: Progress note Author Deangelo Arroyo [facility] Note Date/Time May 03, 2025 2 :09pm [facility] Medical Records Department [address] [place] [address] Progress Note - Infect Disease 05/03/25 1408 MR#: [id number] Acct: [id number] Name: TREVON RAMAN Rep #:[id number] 3 : 1985 40 From: Deangelo maradiaga MD PCP: Dr. Josh Meier MD Status:ADM IN Location: [place] [address] Physical Exam Narrative No fever, still unchanged back pain, no n/v/d. Const alert and no apparent distress General Appearance: cooperative Resp normal air movement and clear to auscultation bilaterally Cardio regular rate and regular rhythm GI soft to palpation, non-tender and non-distended Skin no rashes or lesions noted ID ID: Route of nutrition/ use of supplements: [] Nutritional Intake: [] IV Site: [] Obando Catheter: [] Assessment & Plan Assessment/Plan (1) Discitis: (2) Acute kidney injury: (3) Sepsis: PLAN: MSSA bacteremia complicated by lumbar discitis, R toe infection, L elbow infection. Will continue unasyn. Has Cefzil allergy. No veg seen on TTE and will repeat bcx. will follow (4) Type 1 diabetes mellitus with diabetic polyneuropathy: (5) MSSA bacteremia: 05/03/25 1409 <Electronically signed by Deangelo Arroyo MD> Cosigner Signature (if applicable): CC: ~ Signed [facility] Work Phone: Progress note Author Khadar Casey [facility] Note Date/Time May 04, 2025 2 :38pm [facility] Medical Records Department [address] [place] [id number] Progress Note - Hospitalist 05/04/25 0800 MR#: [id number] Acct: [id number] Name: TREVON RAMAN Rep #:[id number] : 1985 40 From: Khadar Casey DO PCP: Dr. Josh Meier MD Status:ADM IN Location: [place] [address] Reason for Visit Chief Complaint: back pain Subjective Subjective Constipated. Complaining of right flank pain, worse with flexion of right hip. Objective Data Objective Data Vital Signs: Vital Signs Temp Pulse Resp BP Pulse Ox O2 Del Method 36.4 C L 84 16 144/85 H 98 Room Air 05/04/25 04:07 05/04/25 04:07 05/04/25 04:07 05/04/25 04:07 05/04/25 04:07 05/04/25 04:07 Oxygen Delivery Method Room Air Weight: 115.2 kg Body Mass Index (BMI) 33.6 Intake & Output: Intake and Output for Last 24 Hours 05/02/25 05/03/25 05/04/25 23:59 23:59 23:59 Intake Total 3047.75 / 3047.75 1400 / 1400 600 / 600 Balance 3047.75 / 3047.75 1400 / 1400 600 / 600 Lab / Micro Data 05/03/25 06:24 05/03/25 06:24 Labs: Laboratory Results - last 24 hr 05/03/25 11:14: POC Glucose 162 H 05/03/25 16:00: POC Glucose 187 H 05/03/25 20:51: POC Glucose 262 H Micro: Microbiology 05/01/25 15:38 Blood Culture (Wb) - Right Hand Blood Culture - Preliminary No growth in 48 hours. 05/01/25 15:34 Blood Culture (Wb) - Anticubital Right Blood Culture - Preliminary No growth in 48 hours. 04/30/25 12:00 Fluid - Synovial (joint) Gram Stain - Final 04/30/25 12:00 Fluid - Synovial (joint) Body Fluid Culture - Preliminary No growth-Final to follow 04/30/25 12:00 Fluid - Synovial (joint) Anaerobic Culture - Preliminary No growth in 48 hours. 04/28/25 18:10 Blood Culture (Wb) - Right Hand Blood Culture - Final Staphylococcus aureus 04/29/25 10:43 Wound - Toe Gram Stain - Final 04/29/25 10:43 Wound - Toe Wound Culture - Final Staphylococcus aureus Streptococcus agalactiae (B) 04/28/25 17:41 Blood Culture (Wb) - Anticubital Left Bacteria Detection (PCR) - Final Staphylococcus aureus 04/28/25 17:41 Blood Culture (Wb) - Anticubital Left Blood Culture - Final Staphylococcus aureus 04/29/25 01:30 Urine, Clean Catch Urine Culture - Final Staphylococcus aureus Radiography Diagnostic Testing: Radiology Impression Toe X-Ray 05/03/25 10:15 IMPRESSION: 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 Previous amputation of the distal portion of the 4th metatarsal bone, with satisfactory alignment seen. [id number] degenerative changes are seen of the 1st interphalangeal joint and at least mild degenerative changes of the 1st metatarsophalangeal joint. No significant hallux valgus is seen. No acute fracture or dislocation is noted. No soft tissue gas is seen. No osseous destructive change is seen to suggest the presence of osteomyelitis. Further imaging if and as clinically appropriate. Reading Location: [address] Rhythm Strip Rhythm Strip: Sinus Tach Rate: 138 Ectopy: None Physical Exam Const alert and no apparent distress Resp normal respiratory effort and no retractions GI GI Narrative: right lateral oblique tenderness. Neuro Sensorium / Orientation: awake and alert Assessment & Plan Assessment/Plan (1) Sepsis: PLAN: Plan Sepsis secondary * POA. Refer to H+P for criteria. * 2/2 diskitis, left elbow cellulitis and right 2nd toe infection. Bacteremia * likely 2/2 wound which likely led to diskitis * S. aureus * follow up cultures from the so far negative. Repeat blood cultures performed today pending. * Echo shows an EF 65%. * on amp/sb Diskitis * to staph aureus 2/2 acute discitis versus osteomyelitis of the lumbar spine * Outpatient MRI of lumbar spine showed abnormal signal within L4-L5 intervertebral disc and L4-L5 vertebral bodies consistent with acute edema with extension into the left paravertebral soft tissues and psoas muscle at L4-L5 as well as displacement of L4 nerve root so patient came to the ED * Spine surgery consulted-no present acute surgical indication * Infectious disease consulted * 2 of 2 blood cultures positive thus far for gram-positive cocci in clusters, first blood culture growing Staph aureus * 05/01 blood cultures negative. Repeat blood cultures on the pending. Left elbow cellulitis * septic arthritis ruled out. * Ortho and ID on consult * Broad-spectrum antibiotics * Left upper extremity CT with soft tissue swelling but no effusion however given limited range of motion and pain Ortho with plan to attempt to aspirate joint as patient would need to OR if any evidence of infection Right second toe infection * Podiatry consulted * Debrided at bedside * Patient on antibiotics, ID also on consult * 05/01: Toe growing Staph aureus and strep B, ID following, patient remains on vancomycin and Unasyn, further culture and sensitivity data pending Type 2 diabetes mellitus * Glucose checks and sliding scale insulin * Continue long-acting insulin * Glucose elevation likely exacerbated by underlying infection * continue glarine, adjusting prandial insulin based on his carbs. Continue SSI. Back pain * paraspinal muscle tenderness. Right oblique strain * add lidoderm patch. continue zanaflex. * encouraged increased activity. SHWETHA-resolved * On presentation creatinine 1.69 up from a baseline of around 1, has subsequently downtrended to 1.19 DVT ppx: SCDs Charges/Coding Visit Charges Inpatient E&M: 04966 Subs Hosp L2 05/04/25 1438 <Electronically signed by Khadar Casey DO> Cosigner Signature (if applicable): CC: ~ Signed [facility] Work Phone: Progress note Author [facility] Note Date/Time May 04, 2025 4 :29pm [facility] Medical Records Department [address] [place] [id number] Progress Note - Infect Disease 05/04/25 1628 MR#: [id number] Acct: [id number] Name: TREVON RAMAN Rep #:[id number] : 1985 40 From: Deangelo maradiaga MD PCP: Dr. Josh Meier MD Status:ADM IN Location: [place] [address] Physical Exam Narrative Feeling better, less back pain, no fever Const alert and no apparent distress General Appearance: cooperative Resp normal air movement and clear to auscultation bilaterally Cardio regular rate and regular rhythm GI soft to palpation, non-tender and non-distended Skin no rashes or lesions noted ID ID: Route of nutrition/ use of supplements: [] Nutritional Intake: [] IV Site: [] [place] Catheter: [] Assessment & Plan Assessment/Plan (1) Discitis: (2) Acute kidney injury: (3) Sepsis: PLAN: MSSA bacteremia complicated by lumbar discitis, R toe infection, L elbow infection. Will continue unasyn. Has Cefzil allergy. No veg seen on TTE. Bcx have cleared. Plan on 6 weeks iv abx, will order picc. Will write for oxacillin 12gm q24h continuous infusion, stop date 06/12/25 with weekly labs. Nafcillin would be another option. D/w director of casework department and pharmacy. ID followup in 2 weeks. will follow (4) Type 1 diabetes mellitus with diabetic polyneuropathy: (5) MSSA bacteremia: 05/04/259 <Electronically signed by Deangelo Arroyo MD> Cosigner Signature (if applicable): CC: ~ Signed [facility] Work Phone: Progress note Author Khadar Casey [facility] Note Date/Time May 05, 2025 1 :14pm [facility] Medical Records Department [address] [place] [address] Progress Note - Hospitalist 05/05/2533 MR#: [id number] Acct: [id number] Name: TREVON RAMAN Rep #:[id number] : 1985 40 From: Khadar Casey DO PCP: Dr. Josh Meier MD Status:ADM IN [facility] Reason for Visit Chief Complaint: back pain Subjective Subjective Feeling well. No new events. Objective Data Objective Data Vital Signs: Vital Signs Temp Pulse Resp BP Pulse Ox O2 Del Method 36.4 C L 87 16 129/81 H 99 Room Air 05/05/25 08:19 05/05/25 08:19 05/05/25 08:19 05/05/25 08:19 05/05/25 08:19 05/05/25 08:19 Oxygen Delivery Method Room Air Weight: 116.6 kg Body Mass Index (BMI) 34.0 Intake & Output: Intake and Output for Last 24 Hours 05/03/25 05/04/25 05/05/25 23:59 23:59 23:59 Intake Total 1400 / 1400 900 / 900 200 / 200 Balance 1400 / 1400 900 / 900 200 / 200 Lab / Micro Data 05/05/25 05:52 05/05/25 05:52 Labs: Laboratory Results - last 24 hr 05/04/25 08:42: POC Glucose 204 H 05/04/25 10:46: POC Glucose 280 H 05/04/25 16:02: POC Glucose 205 H 05/04/25 21:53: POC Glucose 224 H 05/05/25 05:52: WBC 9.8, RBC 3.47 L, Hgb 9.8 L, Hct 29.9 L, MCV 86.2, MCH 28.2, MCHC 32.8, RDW Std Deviation 38.7, RDW Coeff of Sharon 12.3, Plt Count 569 H, MPV 9.1, Immature Gran % (Auto) 1.500 H, Neut % (Auto) 63.0, Lymph % (Auto) 22.4, Isabella % (Auto) 9.2, Eos % (Auto) 3.2, Baso % (Auto) 0.7, Absolute Neuts (auto) 6.1, Absolute Lymphs (auto) 2.18, Nucleated RBC % 0, Sodium 134, Potassium 4.5, Chloride 99, Carbon Dioxide 23.0, Anion Gap 11, BUN 26 H, Creatinine 1.11, EstimCreat Clear Calc 117.64, Est GFR (MDRD) Non-Af 86, BUN/Creatinine Ratio 23.8 H, Glucose 250 H, Calcium 9.1 05/05/25 07:54: POC Glucose 276 H Micro: Microbiology 04/30/25 12:00 Fluid - Synovial (joint) Gram Stain - Final 04/30/25 12:00 Fluid - Synovial (joint) Body Fluid Culture - Final Culture exhibits no growth. 04/30/25 12:00 Fluid - Synovial (joint) Anaerobic Culture - Preliminary No growth in 48 hours. 05/01/25 15:38 Blood Culture (Wb) - Right Hand Blood Culture - Preliminary No growth in 48 hours. 05/01/25 15:34 Blood Culture (Wb) - Anticubital Right Blood Culture - Preliminary No growth in 48 hours. 04/28/25 18:10 Blood Culture (Wb) - Right Hand Blood Culture - Final Staphylococcus aureus 04/29/25 10:43 Wound - Toe Gram Stain - Final 04/29/25 10:43 Wound - Toe Wound Culture - Final Staphylococcus aureus Streptococcus agalactiae (B) 04/28/25 17:41 Blood Culture (Wb) - Anticubital Left Bacteria Detection (PCR) - Final Staphylococcus aureus 04/28/25 17:41 Blood Culture (Wb) - Anticubital Left Blood Culture - Final Staphylococcus aureus 04/29/25 01:30 Urine, Clean Catch Urine Culture - Final Staphylococcus aureus Rhythm Strip Rhythm Strip: Sinus Tach Rate: 138 Ectopy: None Physical Exam Const alert and no apparent distress HEENT head/scalp atraumatic and moist oral mucous membranes Resp normal respiratory effort and no retractions Cardio regular rate, regular rhythm, S1 normal heart sound and S2 normal heart sound GI normal to inspection, nondistended, normoactive bowel sounds, soft to palpation,non-tender and non-distended Extremity normal to inspection Neuro Sensorium / Orientation: awake and alert Assessment & Plan Assessment/Plan (1) Sepsis: PLAN: Plan Sepsis secondary * POA. Refer to H+P for criteria. * 2/2 diskitis, left elbow cellulitis and right 2nd toe infection. Bacteremia * likely 2/2 wound which likely led to diskitis * S. aureus * follow up cultures from the so far negative. Repeat blood cultures performed today pending. * Echo shows an EF 65%. * on amp/sb. Plan for oxacilin for 6 weeks. Diskitis * to staph aureus 2/2 acute discitis versus osteomyelitis of the lumbar spine * Outpatient MRI of lumbar spine showed abnormal signal within L4-L5 intervertebral disc and L4-L5 vertebral bodies consistent with acute edema with extension into the left paravertebral soft tissues and psoas muscle at L4-L5 as well as displacement of L4 nerve root so patient came to the ED * Spine surgery consulted-no present acute surgical indication * Infectious disease consulted * 2 of 2 blood cultures positive thus far for gram-positive cocci in clusters, first blood culture growing Staph aureus * 05/01 blood cultures negative. Repeat blood cultures on the pending. Left elbow cellulitis * septic arthritis ruled out. * Ortho and ID on consult * Broad-spectrum antibiotics * Left upper extremity CT with soft tissue swelling but no effusion however given limited range of motion and pain Ortho with plan to attempt to aspirate joint as patient would need to OR if any evidence of infection Right second toe infection * Podiatry consulted * Debrided at bedside * Patient on antibiotics, ID also on consult * 05/01: Toe growing Staph aureus and strep B, ID following, patient remains on vancomycin and Unasyn, further culture and sensitivity data pending Type 2 diabetes mellitus * Glucose checks and sliding scale insulin * Continue long-acting insulin * Glucose elevation likely exacerbated by underlying infection * continue glarine, adjusting prandial insulin based on his carbs. Continue SSI. Back pain * paraspinal muscle tenderness. Right oblique strain * add lidoderm patch. continue zanaflex. * encouraged increased activity. SHWETHA-resolved * On presentation creatinine 1.69 up from a baseline of around 1, has subsequently downtrended DVT ppx: SCDs 05/05/25 1314 <Electronically signed by Khadar Casey DO> Cosigner Signature (if applicable): CC: ~ Signed [facility] Work Phone: Reason for referral (narrative)* Diagnostic Procedure Only (Urgent) - Closed Specialty Diagnoses / Procedures Referred By Contac t Referred To Contact XR IMAGING Diagnoses Thumb pain, left Procedures XR DIGIT GENERAL 3V FRONTAL/LAT/OBL LEFT RADEX FINGR MINIMUM 2 VIEWS John Patton APRN.ACADEMIC REGISTRAR [address] [place] [address] [place] [address] Referral ID Status Reason Start Date Expiration Date V isits Requested Visits Authorized [id number] Closed Auto-Generate d Referral 02/25/2024 03/26/2025 1 1 [facility] for referral (narrative)* Diagnostic Procedure Only (Urgent) - Closed Specialty Diagnoses / Procedures Referred By Contac t Referred To Contact XR IMAGING Diagnoses Thumb pain, left Procedures XR DIGIT GENERAL 3V FRONTAL/LAT/OBL LEFT RADEX FINGR MINIMUM 2 VIEWS John Patton MOTION PICTURE OPERATOR.ACADEMIC REGISTRAR [address] [place] [address] [place] [address] Referral ID Status Reason Start Date Expiration Date V isits Requested Visits Authorized [id number] Closed Auto-Generate d Referral 02/25/2024 03/26/2025 1 1 [facility] for visit Narrative* Diagnostic Procedure Only (Urgent) - Closed Specialty Diagnoses / Procedures Referred By Contac t Referred To Contact XR IMAGING Diagnoses Thumb pain, left Procedures XR DIGIT GENERAL 3V FRONTAL/LAT/OBL LEFT RADEX FINGR MINIMUM 2 VIEWS John Patton APRN.ACADEMIC REGISTRAR [address] [place] [address] [place] [address] Referral ID Status Reason Start Date Expiration Date V isits Requested Visits Authorized [id number] Closed Auto-Generate d Referral 02/25/2024 03/26/2025 [facility] Procedure Only (Urgent) - Closed Specialty Diagnoses / Procedures Referred By Contac t Referred To Contact XR IMAGING Diagnoses Foot pain, right Procedures XR FOOT GENERAL 3V AP/LAT/OBL RIGHT RADEX FOOT COMPLETE MINIMUM 3 VIEWS Mirta Baez, MOTION PICTURE OPERATOR.ACADEMIC REGISTRAR [address] [place] [address] [place] [id number] Referral ID Status Reason Start Date Expiration Date V isits Requested Visits Authorized [id number] Closed Auto-Generate d Referral 03/14/2023 04/12/2024 1 1 [facility] Health Concerns Infection Onset Date Last Indicated Resolved Time COVID-19 Rule-Out 01/21/2022 01/21/2022 Infection Onset Date Last Indicated Resolved Time COVID-19 Confirmed 01/21/2022 01/21/2022 Chief Complaint and Reason for Visit Chief Complaint 4 M FU 1 M FU CELLULITIS AND FEVER Reason for Visit Diabetic neuropathy Obesity Type 1 diabetes mellitus Diabetic retinopathy associated with type 1 diabetes mellitus Diabetic neuropathy Type 1 diabetes mellitus Chief Complaint 7 M FU, RS 02/07 WOUND Reason for Visit Diabetes mellitus ty pe 1 Diabetic neuropathy Diabetic retinopathy associated with type 1 diabetes mellitus Obesity Diabetes mellitus with foot ulcer Delayed wound healing Diabetes mellitus type 1 Diabetic neuropathy Ulcer of right foot with fat layer exposed Chief Complaint WOUND WOUND Reason for Visit Diabetes mellitus wi th foot ulcer Delayed wound healing Diabetes mellitus type 1 Diabetic neuropathy Ulcer of right foot with fat layer exposed Diabetes mellitus with foot ulcer Delayed wound healing Diabetes mellitus type 1 Diabetic neuropathy Ulcer of right foot with fat layer exposed Chief Complaint WOUND WOUND WOUND Reason for Visit Diabetes mellitus wi th foot ulcer Delayed wound healing Diabetes mellitus type 1 Diabetic neuropathy Ulcer of right foot with fat layer exposed Diabetes mellitus with foot ulcer Delayed wound healing Diabetes mellitus type 1 Diabetic neuropathy Ulcer of right foot with fat layer exposed Diabetes mellitus with foot ulcer Type 1 diabetes mellitus with diabetic polyneuropathy Delayed wound healing Ulcer of right foot with fat layer exposed Chief Complaint WOUND WOUND WOUND 6 M FU WOUND Reason for Visit Diabetes mellitus wi th foot ulcer Delayed wound healing Diabetes mellitus type 1 Diabetic neuropathy Ulcer of right foot with fat layer exposed Diabetes mellitus with foot ulcer Delayed wound healing Diabetes mellitus type 1 Diabetic neuropathy Ulcer of right foot with fat layer exposed Diabetes mellitus with foot ulcer Delayed wound healing Type 1 diabetes mellitus with diabetic polyneuropathy Ulcer of right foot with fat layer exposed Diabetes mellitus with foot ulcer Diabetic retinopathy associated with type 1 diabetes mellitus Obesity Type 1 diabetes mellitus with diabetic polyneuropathy Diabetes mellitus with foot ulcer Delayed wound healing Type 1 diabetes mellitus with diabetic polyneuropathy Ulcer of right foot with fat layer exposed Chief Complaint Admit Date 7 M FU, NS 08/24October 08, 2024 9:2 4am 6 M FU November 08, 2024 9:5 5am RT SHOULDER PAIN, RX HERE December 27 10:30am Reason for Visit Admit Date Diabetic retinopathy associated with typ e 1 diabetes mellitus October 08, 2024 9:24am Hypertriglyceridemia October 08, 2024 9: 24am Obesity October 08, 2024 9:2 4am Type 1 diabetes mellitus with diabetic p olyneuropathy October 08, 2024 9:24am Hypertriglyceridemia November 08, 2024 9: 55am Type 1 diabetes mellitus with diabetic p olyneuropathy November 08, 2024 9:55am Electronic cigarette use November 08 9:55am Right shoulder pain November 08, 2024 9:5 5am Diabetic retinopathy November 08, 2024 9: 55am Chief Complaint Admit Date 7 M FU, NS 08/24October 08, 2024 9:2 4am 6 M FU November 08, 2024 9:5 5am RT SHOULDER PAIN, RX HERE December 27 10:30am 8 wk fu January 03, 2025 11:2 7am Reason for Visit Admit Date Diabetic retinopathy associated with typ e 1 diabetes mellitus October 08, 2024 9:24am Hypertriglyceridemia October 08, 2024 9: 24am Obesity October 08, 2024 9:2 4am Type 1 diabetes mellitus with diabetic p olyneuropathy October 08, 2024 9:24am Hypertriglyceridemia November 08, 2024 9: 55am Type 1 diabetes mellitus with diabetic p olyneuropathy November 08, 2024 9:55am Electronic cigarette use November 08 9:55am Right shoulder pain November 08, 2024 9:5 5am Diabetic retinopathy November 08, 2024 9: 55am Hypertriglyceridemia January 03, 2025 11: 27am Type 1 diabetes mellitus with diabetic p olyneuropathy January 03, 2025 11:27am Electronic cigarette use January 03, 2025 11:27am Right shoulder pain January 03, 2025 11:2 7am Diabetic retinopathy January 03, 2025 11: 27am Fluid collection of middle ear December 11:27am Chief Complaint Admit Date RT SHOULDER PAIN, RX HERE December 27 10:30am 8 wk fu January 03, 2025 11:2 7am 6 M FU March 11, 2025 9: 25am Reason for Visit Admit Date Hypertriglyceridemia January 03, 2025 11: 27am Type 1 diabetes mellitus with diabetic p olyneuropathy January 03, 2025 11:27am Electronic cigarette use January 03, 2025 11:27am Right shoulder pain January 03, 2025 11:2 7am Diabetic retinopathy January 03, 2025 11: 27am Fluid collection of middle ear December 11:27am Chief Complaint Admit Date RT SHOULDER PAIN, RX HERE December 27 10:30am 8 wk fu January 03, 2025 11:2 7am 6 M FU March 11, 2025 9: 25am [address] [facility] 2024 4:07pm DISCUSS PAIN MNGMT April 04, 2025 12:18pm Reason for Visit Admit Date Hypertriglyceridemia January 03, 2025 11: 27am Type 1 diabetes mellitus with diabetic p olyneuropathy January 03, 2025 11:27am Electronic cigarette use January 03, 2025 11:27am Right shoulder pain January 03, 2025 11:2 7am Diabetic retinopathy January 03, 2025 11: 27am Fluid collection of middle ear December 11:27am Diabetic retinopathy associa gabby with type 1 diabetes mellitus March 11, 2025 9:25am Hypertriglyceridemia March 11, 2025 9 :25am Obesity March 11, 2025 9: 25am Type 1 diabetes mellitus with diabetic p olyneuropathy March 11, 2025 9:25am Back pain of lumbar region with sciatica April 04, 2025 12:18pm Chief Complaint Admit Date RT SHOULDER PAIN, RX HERE December 27 10:30am 8 wk fu January 03, 2025 11:2 7am 6 M FU March 11, 2025 9: 25am 2 ORDERING 'Keo EORDER DR.FINDLAY Roldan tika 2024 4:07pm DISCUSS PAIN MNGMT April 04, 2025 12:18pm LUMBAR SPINE April 19, 2025 9: 20am RM 4 April 19, 2025 9: 51am Chief Complaint Admit Date 6 M FU March 11, 2025 9: 25am [address]FINDLAY Roldan 2024 4:07pm DISCUSS PAIN MNGMT April 04, 2025 12:18pm LUMBAR SPINE April 19, 2025 9: 20am RM 4 April 19, 2025 9: 51am Radiculopathy, lumbar region April 3:11pm SEPSIS DUE TO LUMBAR DISCITIS/OSTEOMYELI TIS April 28, 2025 8:25pm SEPSIS DUE TO LUMBAR DISCITIS/OSTEOMYELI TIS April 29, 2025 7:23am SEPSIS DUE TO LUMBAR DISCITIS/OSTEOMYELI TIS April 29, 2025 3:34pm SEPSIS DUE TO LUMBAR DISCITIS/OSTEOMYELI TIS April 30, 2025 10:36am SEPSIS DUE TO LUMBAR DISCITIS/OSTEOMYELI TIS April 30, 2025 12:23pm SEPSIS DUE TO LUMBAR DISCITIS/OSTEOMYELI TIS May 01, 2025 1:12pm SEPSIS DUE TO LUMBAR DISCITIS/OSTEOMYELI TIS May 01, 2025 3:18pm SEPSIS DUE TO LUMBAR DISCITIS/OSTEOMYELI TIS May 02, 2025 8:28am SEPSIS DUE TO LUMBAR DISCITIS/OSTEOMYELI TIS May 02, 2025 12:52pm SEPSIS DUE TO LUMBAR DISCITIS/OSTEOMYELI TIS May 03, 2025 8:20am SEPSIS DUE TO LUMBAR DISCITIS/OSTEOMYELI TIS May 04, 2025 8:00am SEPSIS DUE TO LUMBAR DISCITIS/OSTEOMYELI TIS May 05, 2025 8:33am Reason for Visit Admit Date Diabetic retinopathy associa gabby with type 1 diabetes mellitus March 11, 2025 9:25am Hypertriglyceridemia March 11, 2025 9 :25am Obesity March 11, 2025 9: 25am Type 1 diabetes mellitus with diabetic p olyneuropathy March 11, 2025 9:25am Back pain of lumbar region with sciatica April 04, 2025 12:18pm Degenerative disc disease (D DD) of lumbar region with discogenic back pain April 19, 2025 9:20am Lumbar radiculopathy April 19, 2025 9 :20am Acute hypotension April 28, 2025 8 :25pm Acute kidney injury April 28, 2025 8 :25pm Cellulitis of left elbow April 28, 2 025 8:25pm Discitis April 28, 2025 8 :25pm History of diabetes mellitus April 8:25pm Lumbar discitis April 28, 2025 8 :25pm MSSA bacteremia April 28, 2025 8 :25pm Onychomycosis April 28, 2025 8 :25pm Sepsis April 28, 2025 8 :25pm Non-pressure chronic ulcer o f other part of right foot limited to breakdown April 28, 2025 8:25pm Type 1 diabetes mellitus with diabetic p olyneuropathy April 28, 2025 8:25pm Family History No Family History Records Found Relationship Condition Age at Onset Recorded Date/T darius Not Specified Hypertension Unknown Disorder of thyroid Unknown father Cardiac disease Unknown mother Diabetes mellitus Unknown Relationship Condition Age at Onset Recorded Date/T darius father Cardiac disease Unknown Hypertension Unknown mother Diabetes mellitus Unknown Disorder of thyroid Unknown Advance Directives No Advanced Directives Records Found Advance Directive Response Recorded Date/ Time Living Will No July 22 0 3:30pm Power of Senior Property Manager No July 22 020 3:30pm Advance Directive Response Recorded Date/ Time Living Will No July 22 0 2:30pm Power of Senior Property Manager No July 22 020 2:30pm Advance Directive Response Recorded Date/ Time Living Will No July 22 0 3:30pm Do you have a Healthcare Power of Senior Property Manager? No July 22, 2019 3:30pm Advance Directive Response Recorded Date/ Time Do you have a Healthcare Power of Senior Property Manager? No April 28, 2025 10:03pm Summary Purpose Additional Source Comments Source Comments (unrecognize d section and content) In the event this informatio n is protected by the Federal Confidentiality of Alcohol and Drug Abuse Patient Records regulations: The Federal rules restrict any use of the information to criminally investigate or prosecute any alcohol or drug abuse patient.[facility] CenterIn the event this information is protected by the Federal Confidentiality of Alcohol and Drug Abuse Patient Records regulations: The Federal rules restrict any use of the information to criminally investigate or prosecute any alcohol or drug abuse patient.[facility] CenterIn the event this information is protected by the Federal Confidentiality of Alcohol and Drug Abuse Patient Records regulations: The Federal rules restrict any use of the information to criminally investigate or prosecute any alcohol or drug abuse patient.[facility] CenterIn the event this information is protected by the Federal Confidentiality of Alcohol and Drug Abuse Patient Records regulations: The Federal rules restrict any use of the information to criminally investigate or prosecute any alcohol or drug abuse patient.[facility] CenterIn the event this information is protected by the Federal Confidentiality of Alcohol and Drug Abuse Patient Records regulations: The Federal rules restrict any use of the information to criminally investigate or prosecute any alcohol or drug abuse patient.[facility] CenterIn the event this information is protected by the Federal Confidentiality of Alcohol and Drug Abuse Patient Records regulations: The Federal rules restrict any use of the information to criminally investigate or prosecute any alcohol or drug abuse patient.[facility] CenterIn the event this information is protected by the Federal Confidentiality of Alcohol and Drug Abuse Patient Records regulations: The Federal rules restrict any use of the information to criminally investigate or prosecute any alcohol or drug abuse patient.[facility] CenterIn the event this information is protected by the Federal Confidentiality of Alcohol and Drug Abuse Patient Records regulations: The Federal rules restrict any use of the information to criminally investigate or prosecute any alcohol or drug abuse patient.[facility] CenterIn the event this information is protected by the Federal Confidentiality of Alcohol and Drug Abuse Patient Records regulations: The Federal rules restrict any use of the information to criminally investigate or prosecute any alcohol or drug abuse patient.[facility] CenterIn the event this information is protected by the Federal Confidentiality of Alcohol and Drug Abuse Patient Records regulations: The Federal rules restrict any use of the information to criminally investigate or prosecute any alcohol or drug abuse patient.[facility] CenterIn the event this information is protected by the Federal Confidentiality of Alcohol and Drug Abuse Patient Records regulations: The Federal rules restrict any use of the information to criminally investigate or prosecute any alcohol or drug abuse patient.[facility] CenterIn the event this information is protected by the Federal Confidentiality of Alcohol and Drug Abuse Patient Records regulations: The Federal rules restrict any use of the information to criminally investigate or prosecute any alcohol or drug abuse patient.[facility] CenterIn the event this information is protected by the Federal Confidentiality of Alcohol and Drug Abuse Patient Records regulations: The Federal rules restrict any use of the information to criminally investigate or prosecute any alcohol or drug abuse patient.[facility] CenterIn the event this information is protected by the Federal Confidentiality of Alcohol and Drug Abuse Patient Records regulations: The Federal rules restrict any use of the information to criminally investigate or prosecute any alcohol or drug abuse patient.[facility] CenterIn the event this information is protected by the Federal Confidentiality of Alcohol and Drug Abuse Patient Records regulations: The Federal rules restrict any use of the information to criminally investigate or prosecute any alcohol or drug abuse patient.[facility] CenterIn the event this information is protected by the Federal Confidentiality of Alcohol and Drug Abuse Patient Records regulations: The Federal rules restrict any use of the information to criminally investigate or prosecute any alcohol or drug abuse patient.[facility] CenterIn the event this information is protected by the Federal Confidentiality of Alcohol and Drug Abuse Patient Records regulations: The Federal rules restrict any use of the information to criminally investigate or prosecute any alcohol or drug abuse patient.[facility] Reason for Visit (unrecogniz ed section and content) Reason Comments Leg Injury L rose hit at work x 1 week, possible cellulitis Reason Comments Cough congestion, shortnes s of breath, fever, headache and fatigue x 1 day Reason Comments Results Reason Comments Derm Problem Skin infection R low er leg and ankle x2 days Reason Comments Appointment Reason Comments Nasal Congestion drainage, cough x ov er 2 weeks Reason Comments Diarrhea Diarrhea x 3 days Reason Comments Sore Throat Hard to swallow, R s claire and ear, nasal congestion, runny nose x last night Reason Comments Cough L ear pain, chest co ngestion, SOB, nasal drainage, sore throat, x 6 days Reason Comments left thumb pain X 1 day Reason Comments Patient Update Reason Comments Urinary Frequency pelvic pressure, lef t side lower back pain x 3-4 days Care Teams (unrecognized sec tion and content) Manager Battery Relationship Specialty Start Date End Date Magdiel Hurst MD [address] [place], [place] [id number] PCP - General Internal Medicine 01/21/22 Manager Battery Relationship Specialty Start Date End Date Magdiel Hurst MD [address] [place], [place] [id number] PCP - General Internal Medicine 01/21/22 Team Status: Active Member Role Status Dates Dr. Magdiel Hurst MD Family Provider Active Dr. Magdiel Hurst MD Primary Care Provider Active Team Status: Inactive Member Role Status Dates Dr. Magdiel Hurst MD Primary Care Provider, Refer ring Provider Active Dr. Tez Celment MD Attending Provider Active Team Status: Inactive Member Role Status Dates Dr. Magdiel Hurst MD Primary Care Provider Active Ed Physician Provider Emergency Provider Active Manager Battery Relationship Specialty Start Date End Date Magdiel Hurst MD [address] [place] [address] PCP - General Internal Medicine 01/21/22 Team Status: Inactive Member Role Status Dates Dr. Magdiel Hurst MD Primary Care Provider Active Dr. Tez Clement MD Attending Provider Active Team Status: Inactive Member Role Status Dates Dr. Magdiel Hurst MD Primary Care Provider Active Dr. George Ambrocio , DPM Attending Provider, Referri ng Provider Active Manager Battery Relationship Specialty Start Date End Date Magdiel Hurst MD [address] [place] [address] PCP - General Internal Medicine 01/21/22 Manager Battery Relationship Specialty Start Date End Date Magdiel Hurst MD [address] [place] [address] PCP - General Internal Medicine 01/21/22 Manager Battery Relationship Specialty Start Date End Date Magdiel Hurst MD [address] [place] [address] PCP - General Internal Medicine 01/21/22 Manager Battery Relationship Specialty Start Date End Date Magdiel Hurst MD [address] [place] [address] PCP - General Internal Medicine 01/21/22 Manager Battery Relationship Specialty Start Date End Date Magdiel Hurst MD [address] [facility] [place] [address] PCP - General Internal Medicine 01/21/22 Manager Battery Relationship Specialty Start Date End Date Magdiel Hurst MD [address] [place] [address] PCP - General Internal Medicine 01/21/22 Manager Battery Relationship Specialty Start Date End Date Magdiel Hurst MD [address] [facility] [place] [address] PCP - General Internal Medicine 01/21/22 Manager Battery Relationship Specialty Start Date End Date Magdiel Hurst MD [address] [facility] [place] [address] PCP - General Internal Medicine 01/21/22 03/11/24 Manager Battery Relationship Specialty Start Date End Date Magdiel Hurst MD [address] [facility], [place] [address] PCP - General Internal Medicine 01/21/22 03/11/24 Team Status: Active Member Role Status Dates Dr. Josh Meier MD Primary Care Provider Active Team Status: Inactive Member Role Status Dates Dr. Josh Meier MD Primary Care Provider Active Start: October 08, 2024 End: October 08, 2024 Dr. Josh Meier MD Referring Provider Active Start: October 08, 2024 End: October 08, 2024 Dr. Tez Clement MD Attending Provider Active Sta rt: October 08, 2024 End: October 08, 2024 Team Status: Inactive Member Role Status Dates No Primary Care Physician Referring Provider Active Start: November 08, 2024 End: November 08, 2024 Dr. Josh Meier MD Primary Care Provider Active Start: November 08, 2024 End: November 08, 2024 Dr. Josh Meier MD Attending Provider Active Start: November 08, 2024 End: November 08, 2024 Team Status: Inactive Member Role Status Dates Dr. Josh Meier MD Primary Care Provider Active Start: December 27, 2024 End: December 27, 2024 Dr. Josh Meier MD Attending Provider Active Start: December 27, 2024 End: December 27, 2024 Dr. Josh Meier MD Referring Provider Active Start: December 27, 2024 End: December 27, 2024 Team Status: Inactive Member Role Status Dates Dr. Josh Meier MD Primary Care Provider Active Start: January 03, 2025 End: January 03, 2025 Dr. Josh Meier MD Attending Provider Active Start: January 03, 2025 End: January 03, 2025 Dr. Josh Meier MD Referring Provider Active Start: January 03, 2025 End: January 03, 2025 Manager Battery Relationship Specialty Start Date End Date Josh Meier MD [address] [place] [address] PCP - General Internal Medicine 03/02/25 Manager Battery Relationship Specialty Start Date End Date Josh Meier MD [address] [place] [address] PCP - General Internal Medicine 03/02/25 Team Status: Active Member Role/Relationship Status Dates Dr. oJsh Meier MD Primary Care Provider Active Team Status: Active Member Role/Relationship Status Dates Dr. Josh eMier MD Primary Care Provider Active Start: December 27, 2024 Dr. Josh Meier MD Attending Provider Active Start: December 27, 2024 Dr. Josh Meier MD Referring Provider Active Start: December 27, 2024 Team Status: Inactive Member Role/Relationship Status Dates Dr. Josh Meier MD Primary Care Provider Active Start: January 03, 2025 End: January 03, 2025 Dr. Josh Meier MD Attending Provider Active Start: January 03, 2025 End: January 03, 2025 Dr. Josh Meier MD Referring Provider Active Start: January 03, 2025 End: January 03, 2025 Team Status: Inactive Member Role/Relationship Status Dates Dr. Josh Meier MD Primary Care Provider Active Start: March 11, 2025 End: March 11, 2025 Dr. Josh Meier MD Referring Provider Active Start: March 11, 2025 End: March 11, 2025 Dr. Tez Clement MD Attending Provider Active Sta rt: March 11, 2025 End: March 11, 2025 Team Status: Active Member Role/Relationship Status Dates Dr. Josh Meier MD Primary care physician Active Team Status: Active Member Role/Relationship Status Dates Dr. Josh Meier MD Primary care physician Active Start: December 27, 2024 Dr. Josh Meier MD Attending physician Active Start: December 27, 2024 Dr. Josh Meier MD Referring Provider Active Start: December 27, 2024 Team Status: Inactive Member Role/Relationship Status Dates Dr. Josh Meier MD Primary care physician Active Start: January 03, 2025 End: January 03, 2025 Dr. Josh Meier MD Attending physician Active Start: January 03, 2025 End: January 03, 2025 Dr. Josh Meier MD Referring Provider Active Start: January 03, 2025 End: January 03, 2025 Team Status: Inactive Member Role/Relationship Status Dates Dr. Josh Meier MD Primary care physician Active Start: March 11, 2025 End: March 11, 2025 Dr. Josh Meier MD Referring Provider Active Start: March 11, 2025 End: March 11, 2025 Dr. Tez Clement MD Attending physician Active St art: March 11, 2025 End: March 11, 2025 Team Status: Inactive Member Role/Relationship Status Dates Dr. Josh Meier MD Primary care physician Active Start: March 25, 2025 End: March 25, 2025 Dr. Josh Meier MD Referring Provider Active Start: March 25, 2025 End: March 25, 2025 Dr. Kevin Santana DC Attending physician Active Start: March 25, 2025 End: March 25, 2025 Team Status: Inactive Member Role/Relationship Status Dates Dr. Josh Meier MD Primary care physician Active Start: April 04, 2025 End: April 04, 2025 Dr. Josh Meier MD Referring Provider Active Start: April 04, 2025 End: April 04, 2025 HENRY Petersen Attending physician Active Start: April 04, 2025 End: April 04, 2025 Team Status: Inactive Member Role/Relationship Status Dates Dr. Josh Meier MD Primary care physician Active Start: April 19, 2025 End: April 19, 2025 Dr. Josh Meier MD Referring Provider Active Start: April 19, 2025 End: April 19, 2025 DL Fraga Attending physician Active Sta rt: April 19, 2025 End: April 19, 2025 Team Status: Inactive Member Role/Relationship Status Dates Dr. Josh Meier MD Primary care physician Active Start: April 19, 2025 End: April 19, 2025 Dr. Mahendra Shankar MD Attending physician Active Start: April 19, 2025 End: April 19, 2025 Team Status: Active Member Role/Relationship Status Dates Dr. Josh Meier MD Primary care physician Active Start: April 19, 2025 Dr. Josh Meier MD Referring Provider Active Start: April 19, 2025 DL Fraga Attending physician Active Sta rt: April 19, 2025 Team Status: Inactive Member Role/Relationship Status Dates Dr. Josh Meier MD Primary care physician Active Start: March 11, 2025 End: March 11, 2025 Dr. Josh Meier MD Referring Provider Active Start: March 11, 2025 End: March 11, 2025 Dr. Tez Clement MD Attending physician Active St art: March 11, 2025 End: March 11, 2025 Team Status: Inactive Member Role/Relationship Status Dates Dr. Josh Meier MD Primary care physician Active Start: March 25, 2025 End: March 25, 2025 Dr. Josh Meier MD Referring Provider Active Start: March 25, 2025 End: March 25, 2025 Dr. Kevin Santana DC Attending physician Active Start: March 25, 2025 End: March 25, 2025 Team Status: Inactive Member Role/Relationship Status Dates Dr. Josh Meier MD Primary care physician Active Start: April 04, 2025 End: April 04, 2025 Dr. Josh Meier MD Referring Provider Active Start: April 04, 2025 End: April 04, 2025 HENRY Petersen Attending physician Active Start: April 04, 2025 End: April 04, 2025 Team Status: Inactive Member Role/Relationship Status Dates Dr. Josh Meier MD Primary care physician Active Start: April 19, 2025 End: April 19, 2025 Dr. Josh Meier MD Referring Provider Active Start: April 19, 2025 End: April 19, 2025 DL Fraga Attending physician Active Sta rt: April 19, 2025 End: April 19, 2025 Team Status: Inactive Member Role/Relationship Status Dates Dr. Josh Meier MD Primary care physician Active Start: April 19, 2025 End: April 19, 2025 Dr. Mahendra Shankar MD Attending physician Active Start: April 19, 2025 End: April 19, 2025 Team Status: Active Member Role/Relationship Status Dates Dr. Josh Meier MD Primary care physician Active Start: April 26, 2025 Dr. Kevin Santana DC Attending physician Active Start: April 26, 2025 Dr. Kevin Santana DC Referring Provider Active Start: April 26, 2025 Team Status: Inactive Member Role/Relationship Status Dates Dr. Josh Meier MD Primary care physician Active Start: April 28, 2025 End: May 05, 2025 Dr. Varun Gamez MD Emergency Departmen t Physician Active Start: April 28, 2025 End: May 05, 2025 Dr. Kristin Hernandes MD Admitting physician Active Start: April 28, 2025 End: May 05, 2025 Dr. Kristin Hernandes MD Nurse Practitioner Active Start: April 28, 2025 End: May 05, 2025 Dr. Deangelo Arroyo MD Nurse Practitioner Active Start: April 28, 2025 End: May 05, 2025 Dr. Gabriele Tafoya MD Nurse Practitioner Active Start: April 28, 2025 End: May 05, 2025 Dr. Aminah Ann DPM Nurse Practitioner Active Start: April 28, 2025 End: May 05, 2025 Dr. Jim Burger MD Nurse Practitioner Active Start: April 28, 2025 End: May 05, 2025 Dr. Khadar Casey DO Attending physician Active Start: April 28, 2025 End: May 05, 2025 Dr. Park Zamora MD Nurse Practitioner Active Start: April 28, 2025 End: May 05, 2025 Team Status: Active Member Role/Relationship Status Dates Dr. Josh Meier MD Primary care physician Active Start: April 29, 2025 Dr. [facility] Active Start: April 29, 2025 Dr. Kristin Hernandes MD Admitting physician Active Start: April 29, 2025 Dr. Kristin Hernandes MD Nurse Practitioner Active Start: April 29, 2025 Dr. Gabriele Tafoya MD Nurse Practitioner Active Start: April 29, 2025 Dr. Jim Burger MD Attending physician Active Start: April 29, 2025 Dr. Jim Burger MD Nurse Practitioner Active Start: April 29, 2025 Dr. Deangelo Arroyo MD Nurse Practitioner Active Start: April 29, 2025 Team Status: Active Member Role/Relationship Status Dates Dr. Josh Meier MD Primary care physician Active Start: April 29, 2025 Dr. [facility] Active Start: April 29, 2025 Dr. Krsitin Hernandes MD Admitting physician Active Start: April 29, 2025 Dr. Kristin Hernandes MD Nurse Practitioner Active Start: April 29, 2025 Dr. Jim Burger MD Nurse Practitioner Active Start: April 29, 2025 Dr. Deangelo Arroyo MD Nurse Practitioner Active Start: April 29, 2025 Dr. Gabriele Tafoya MD Attending physician Active Start: April 29, 2025 Dr. Gabriele Tafoya MD Nurse Practitioner Active Start: April 29, 2025 Dr. Aminah Ann DPM Nurse Practitioner Active Start: April 29, 2025 Team Status: Active Member Role/Relationship Status Dates Dr. Josh Meier MD Primary care physician Active Start: April 30, 2025 Dr. Varun Gamez MD Emergency Departmen t Physician Active Start: April 30, 2025 Dr. Kristin Hernandes MD Admitting physician Active Start: April 30, 2025 Dr. Kristin Hernandes MD Nurse Practitioner Active Start: April 30, 2025 Dr. Deangelo Arroyo MD Nurse Practitioner Active Start: April 30, 2025 Dr. Gabriele Tafoya MD Nurse Practitioner Active Start: April 30, 2025 Dr. Aminah Ann DPM Nurse Practitioner Active Start: April 30, 2025 Dr. Park Zamora MD Attending physician Active Start: April 30, 2025 Dr. Park Zamora MD Nurse Practitioner Active Start: April 30, 2025 Dr. Jim Burger MD Nurse Practitioner Active Start: April 30, 2025 Team Status: Active Member Role/Relationship Status Dates Dr. Josh Meier MD Primary care physician Active Start: April 30, 2025 Dr. Varun Gamez MD Emergency Departmen t Physician Active Start: April 30, 2025 Dr. Kristin Hernandes MD Admitting physician Active Start: April 30, 2025 Dr. Kristin Hernandes MD Nurse Practitioner Active Start: April 30, 2025 Dr. Deangelo Arroyo MD Nurse Practitioner Active Start: April 30, 2025 Dr. Gabriele Tafoya MD Attending physician Active Start: April 30, 2025 Dr. Gabriele Tafoya MD Nurse Practitioner Active Start: April 30, 2025 Dr. Aminah Ann DPM Nurse Practitioner Active Start: April 30, 2025 Dr. Park Zamora MD Nurse Practitioner Active Start: April 30, 2025 Dr. Jim Burger MD Nurse Practitioner Active Start: April 30, 2025 Team Status: Active Member Role/Relationship Status Dates Dr. Josh Meier MD Primary care physician Active Start: May 01, 2025 Dr. Varun Gamez MD Emergency Departmen t Physician Active Start: May 01, 2025 Dr. Kristin Hernandes MD Admitting physician Active Start: May 01, 2025 Dr. Kristin Hernandes MD Nurse Practitioner Active Start: May 01, 2025 Dr. Deangelo Arroyo MD Nurse Practitioner Active Start: May 01, 2025 Dr. Gabriele Tafoya MD Attending physician Active Start: May 01, 2025 Dr. Gabriele Tafoya MD Nurse Practitioner Active Start: May 01, 2025 Dr. Aminah Ann DPM Nurse Practitioner Active Start: May 01, 2025 Dr. Park Zamora MD Nurse Practitioner Active Start: May 01, 2025 Dr. Jim Burger MD Nurse Practitioner Active Start: May 01, 2025 Team Status: Active Member Role/Relationship Status Dates Dr. Josh Meier MD Primary care physician Active Start: May 01, 2025 Dr. Varun Gamez MD Emergency Departmen t Physician Active Start: May 01, 2025 Dr. Kristin Hernandes MD Admitting physician Active Start: May 01, 2025 Dr. Kristin Hernandes MD Nurse Practitioner Active Start: May 01, 2025 Dr. Deangelo Arroyo MD Nurse Practitioner Active Start: May 01, 2025 Dr. Gabriele Tafoya MD Nurse Practitioner Active Start: May 01, 2025 Dr. Aminah Ann DPM Nurse Practitioner Active Start: May 01, 2025 Dr. Park Zamora MD Attending physician Active Start: May 01, 2025 Dr. Park Zamora MD Nurse Practitioner Active Start: May 01, 2025 Dr. Jim Burger MD Nurse Practitioner Active Start: May 01, 2025 Team Status: Active Member Role/Relationship Status Dates Dr. Josh Meier MD Primary care physician Active Start: May 02, 2025 Dr. Mahendra Shankar MD Attending physician Active Start: May 02, 2025 Team Status: Active Member Role/Relationship Status Dates Dr. Josh Meier MD Primary care physician Active Start: May 02, 2025 Dr. Varun Gamez MD Emergency Departmen t Physician Active Start: May 02, 2025 Dr. Kristin Hernandes MD Admitting physician Active Start: May 02, 2025 Dr. Kristin Hernandes MD Nurse Practitioner Active Start: May 02, 2025 Dr. Deangelo Arroyo MD Nurse Practitioner Active Start: May 02, 2025 Dr. Gabriele Tafoya MD Nurse Practitioner Active Start: May 02, 2025 Dr. Aminah Ann DPM Nurse Practitioner Active Start: May 02, 2025 Dr. Jim Burger MD Nurse Practitioner Active Start: May 02, 2025 Dr. Khadar Casey DO Attending physician Active Start: May 02, 2025 Dr. Khadar Casey DO Nurse Practitioner Active Start: May 02, 2025 Dr. Park Zamora MD Nurse Practitioner Active Start: May 02, 2025 Team Status: Active Member Role/Relationship Status Dates Dr. Josh Meier MD Primary care physician Active Start: May 02, 2025 Dr. Varun [facility] Phys[facility] Active Start: May 02, 2025 Dr. Kristin Hernandes MD Admitting physician Active Start: May 02, 2025 Dr. Kristin Hernandes MD Nurse Practitioner Active Start: May 02, 2025 Dr. Deangelo Arroyo MD Nurse Practitioner Active Start: May 02, 2025 Dr. Gabriele Tafoya MD Nurse Practitioner Active Start: May 02, 2025 Dr. Aminah Ann DPM Nurse Practitioner Active Start: May 02, 2025 Dr. Jim Burger MD Nurse Practitioner Active Start: May 02, 2025 Dr. Khadar Casey DO Nurse Practitioner Active Start: May 02, 2025 Dr. Park Zamora MD Nurse Practitioner Active Start: May 02, 2025 DL Fraga Attending physician Active Sta rt: May 02, 2025 Team Status: Active Member Role/Relationship Status Dates Dr. Josh Meier MD Primary care physician Active Start: May 03, 2025 Dr. Varun [facility]z [facility] Phys[facility] Active Start: May 03, 2025 Dr. Kristin Hernandes MD Admitting physician Active Start: May 03, 2025 Dr. Kristin Hernandes MD Nurse Practitioner Active Start: May 03, 2025 Dr. Deangelo Arroyo MD Nurse Practitioner Active Start: May 03, 2025 Dr. Gabriele Tafoya MD Nurse Practitioner Active Start: May 03, 2025 Dr. Aminah Ann DPM Nurse Practitioner Active Start: May 03, 2025 Dr. Jim Burger MD Nurse Practitioner Active Start: May 03, 2025 Dr. Khadar Casey DO Attending physician Active Start: May 03, 2025 Dr. Khadar Casey DO Nurse Practitioner Active Start: May 03, 2025 Dr. Park Zamora MD Nurse Practitioner Active Start: May 03, 2025 Team Status: Active Member Role/Relationship Status Dates Dr. Josh Meier MD Primary care physician Active Start: May 04, 2025 Dr. Varun Gamez [facility] Phys[facility] Active Start: May 04, 2025 Dr. Kristin Hernandes MD Admitting physician Active Start: May 04, 2025 Dr. Kristin Hernandes MD Nurse Practitioner Active Start: May 04, 2025 Dr. Deangelo Arroyo MD Nurse Practitioner Active Start: May 04, 2025 Dr. Gabriele Tafoya MD Nurse Practitioner Active Start: May 04, 2025 Dr. Aminah Ann DPM Nurse Practitioner Active Start: May 04, 2025 Dr. Jim Burger MD Nurse Practitioner Active Start: May 04, 2025 Dr. Khadar Casey DO Attending physician Active Start: May 04, 2025 Dr. Khadar Casey DO Nurse Practitioner Active Start: May 04, 2025 Dr. Park Zamora MD Nurse Practitioner Active Start: May 04, 2025 Team Status: Active Member Role/Relationship Status Dates Dr. Josh Meier MD Primary care physician Active Start: May 05, 2025 Dr. Varun Gamez MD [facility] t Physician Active Start: May 05, 2025 Dr. Kristin Hernandes MD Admitting physician Active Start: May 05, 2025 Dr. Kristin Hernandes MD Nurse Practitioner Active Start: May 05, 2025 Dr. Deangelo Arroyo MD Nurse Practitioner Active Start: May 05, 2025 Dr. Gabriele Tafoya MD Nurse Practitioner Active Start: May 05, 2025 Dr. Aminah Ann DPM Nurse Practitioner Active Start: May 05, 2025 Dr. Jim Burger MD Nurse Practitioner Active Start: May 05, 2025 Dr. Khadar Casey DO Attending physician Active Start: May 05, 2025 Dr. Khadar Casey DO Nurse Practitioner Active Start: May 05, 2025 Dr. Park Zamora MD Nurse Practitioner Active Start: May 05, 2025 Team Status: Active Member Role/Relationship Status Dates Dr. Josh Meier MD Primary care physician Active Start: May 10, 2025 Dr. Deangelo Arroyo MD Attending physician Active Start: May 10, 2025 Goals (unrecognized section and content) Goals may be documented in a n alternate section No data available for this sectionGoals may be documented in an alternate sectionGoals may be documented in an alternate sectionGoals may be documented in an alternate sectionGoals may be documented in an alternate sectionGoals may be documented in an alternate sectionGoals may be documented in an alternate sectionGoals may be documented in an alternate sectionGoals may be documented in an alternate sectionGoals may be documented in an alternate sectionGoals may be documented in an alternate sectionGoals may be documented in an alternate section (unrecognized sect ion and content) No Status Records FoundNo Status Records FoundNo Status Records Found INFORMATION SOURCE (unrecogn ized section and content) DATE CREATED AUTHOR 11/11/2022 [facility] ([place]) DATE CREATED AUTHOR AUTHOR'S ORGANIZ ATION 03/04/2025 [facility] DATE CREATED AUTHOR AUTHOR'S ORGANIZ ATION 05/26/2025 [facility] FOR RECORDS PERTAINING TO PATIENTS WHO ARE OR HAVE BEEN ENROLLED IN A CHEMICAL DEPENDENCY/SUBSTANCEABUSE PROGRAM, SOME INFORMATION MAY BE OMITTED. This clinical summary was aggregated from multiple sources. Caution should be exercised in using it in the provision of clinical care. This summary normalizes information from multiple sources, and as a consequence, information in this document may materially change the coding, format and clinical context of patient data. In addition, data may be omitted in some cases. CLINICAL DECISIONS SHOULD BE BASED ON THE PRIMARY CLINICAL RECORDS. [employer] provides no warranty or guarantee of the accuracy or completeness of information in this document.
== END | disposition home or self-care (01) ==
LOC: PSN 12:02
PROVIDERS: PCP Internal Medicine; Referring Provider Nurse Practitioner Family; Visit Provider Nurse Practitioner Family
DX: R06.00 Dyspnea, unspecified (principal); R42 Dizziness and giddiness; R55 Syncope and collapse
CPT/HCPCS: 93225; 93226